=== PATIENT | female | born 1975 | race Caucasian/White ===

== ENCOUNTER 2023-04-29 14:45 | Emergency (ER) | payer OTHER, SELFPAY ==
[2023-04-29 14:54] VITALS: BP 144/110; RESP 16; TEMP 36.7; O2SAT 99; BMI 21.2
--- NOTE | 2023-04-29 15:02 | ED.GENADUL1 ---
HPI - General Adult General Chief complaint: Headache Stated complaint: HYPERTENSION/ NECK STIFFNESS Time Seen by Provider: 04/29/23 15:02 Source: patient Mode of arrival: walk-in Limitations: no limitations History of Present Illness HPI narrative: this patient's here for pain in her neck and headache and elevated blood pressure readings at home. She is under the care of a local primary care practitioner as been referred to pain management and is considering undergoing epidural blocks in her cervical area but she is low but hesitant and afraid of that. She is a recovering drug addict. She was taking gabapentin for a while but has not been on it for at least several weeks. She has no new neurological symptoms in her arms but she does have neck pain. She has not been on steroids recently. She said she took her blood pressure at home and it was quite elevated. She is on blood pressure meds and she's revealing these with the nurse at this time. She did not have any focal neurological deficits today. No diplopia or dysarthria or dysphasia. No explosive headache. No double vision. Related Data Home Medications Medication Instructions Recorded Confirmed amlodipine 10 mg tablet 10 mg PO DAILY 04/29/23 04/29/23 budesonide-formoterol HFA 160 2 puff inhalation Q12H PRN sob 04/29/23 04/29/23 mcg-4.5 mcg/actuation aerosol inhaler buspirone 10 mg tablet 10 mg PO DAILY 04/29/23 04/29/23 cholecalciferol (vitamin D3) 50 1,000 unit PO DAILY 04/29/23 04/29/23 mcg (2,000 unit) capsule duloxetine 30 mg capsule,delayed 30 mg PO DAILY 04/29/23 04/29/23 release famotidine 20 mg tablet 20 mg PO DAILY 04/29/23 04/29/23 hydroxyzine pamoate 25 mg capsule 25 mg PO Q8H PRN anxiety 04/29/23 04/29/23 levothyroxine 125 mcg tablet 125 mcg PO DAILY 04/29/23 04/29/23 losartan 50 mg-hydrochlorothiazide 1 tab PO DAILY 04/29/23 04/29/23 12.5 mg tablet mirtazapine 7.5 mg tablet 7.5 mg PO .qhs 04/29/23 04/29/23 Allergies Allergy/AdvReac Type Severity Reaction Status Date / Time No Known Drug Allergies Allergy Verified 04/29/23 14:53 [facility] Medical History (Updated 04/29/23 @ 16:48 by Kin Tran MD) Social History Smoking status: Heavy tobacco smoker Exam Narrative Exam Narrative: vital signs noted. She is awake alert oriented ?3 appears to have chronic pain syndrome may be exacerbated today. There is no change in activities or symptomatology. Constitutional she states then awake alert no evidence confusion or meningeal irritation. H ENT normal craniofacial structures, no facial swelling. Cervical spine restriction of motion in all planes is noted and is chronic. Respiratory Respiratory no respiratory distress wheezing or coughing. Review regular rate and rhythm. Blood pressure is noted. Neuro / her radial ulnar nerve function and median nerve function are normal in both extremities. There is no spasticity or clonus. There is no sensory loss in the extremities. Constitutional Vital Signs - 24 hr 04/29/23 14:54 04/29/23 15:30 04/29/23 16:25 Temperature 98.1 F Respiratory Rate 16 Blood Pressure [Left Arm] 158/118 H Blood Pressure [Right Arm] 144/110 H 143/103 H Pulse Oximetry 99 Oxygen Delivery Method Room Air Course Vital Signs Vital signs: Vital Signs Temperature 98.1 F 04/29/23 14:54 Respiratory Rate 16 04/29/23 14:54 Blood Pressure 144/110 H 04/29/23 14:54 Pulse Oximetry 99 04/29/23 14:54 Oxygen Delivery Method Room Air 04/29/23 14:54 Temperature 98.1 F 04/29/23 14:54 Respiratory Rate 16 04/29/23 14:54 Blood Pressure 158/118 H 04/29/23 16:25 Pulse Oximetry 99 04/29/23 14:54 Oxygen Delivery Method Room Air 04/29/23 14:54 Medical Decision Making MDM Narrative Medical decision making narrative: patient blood pressure responded nicely to treatment. She admits to having opioid addiction in the past and is not requesting a prescription but she would like something for discomfort here. I will give her prescription for Neurontin. I strongly encouraged her to follow up with pain management doctor so they can get more therapeutic intervention. She was given Dilaudid once. She does feel substantially relieved Discharge Plan Discharge Chief Complaint: Headache Clinical Impression: Cervical disc disorder with radiculopathy, Hypertension Patient Disposition: Home, Self-Care Time of Disposition Decision: 16:48 Prescriptions / Home Meds: No Action budesonide-formoterol 160-4.5 mcg/actuation HFA aerosol inhaler 2 puff INHALATION Q12H PRN (Reason: sob) amlodipine 10 mg tablet 10 mg PO DAILY duloxetine 30 mg capsule,delayed release(DR/EC) 30 mg PO DAILY famotidine 20 mg tablet 20 mg PO DAILY hydroxyzine pamoate 25 mg capsule 25 mg PO Q8H PRN (Reason: anxiety) levothyroxine 125 mcg tablet 125 mcg PO DAILY losartan-hydrochlorothiazide 50-12.5 mg tablet 1 tab PO DAILY mirtazapine 7.5 mg tablet 7.5 mg PO .qhs cholecalciferol (vitamin D3) 50 mcg (2,000 unit) capsule 1,000 unit PO DAILY buspirone 10 mg tablet 10 mg PO DAILY Additional Instructions: follow-up with hand painter and your primary provider for ongoing care for these chronic conditions Stand Alone Forms: Portal Instructions Referrals: TATUM ONOFRE MD [Primary Care Provider] - 1 week
[2023-04-29 15:30] VITALS: BP 143/103
[2023-04-29] MEDS: LABETALOL HCL 20 MG/4 ML SYRINGE IVP (15:35)
[2023-04-29] MEDS: KETOROLAC TROMETHAMINE 10 MG TABLET 20 MG PO (16:06)
[2023-04-29 16:25] VITALS: BP 158/118
[2023-04-29] MEDS: GABAPENTIN 300 MG CAPSULE PO (17:09)
[2023-04-29] MEDS: HYDROMORPHONE HCL 2 MG/ML VIAL 1 MG IV (17:09)
[2023-04-29 17:14] VITALS: BP 190/100; PULSE 60; RESP 18; O2SAT 98
== END 2023-04-29 17:38 | disposition home or self-care (01) ==
PROVIDERS: Emergency Provider Emergency Medicine Emergency Medical Services; PCP Nurse Practitioner Primary Care
DX: M50.10 Cervical disc disorder with radiculopathy, unspecified cervical region (principal); I10 Essential (primary) hypertension; Z79.899 Other long term (current) drug therapy; Z79.890 Hormone replacement therapy
CPT/HCPCS: 96374; 96375; 99284; J1170

== ENCOUNTER 2023-06-14 13:27 | Emergency (ER) | payer OTHER, SELFPAY ==
[2023-06-14 13:29] VITALS: BP 160/90; PULSE 58; RESP 18; TEMP 36.6; O2SAT 98; BMI 21.0
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
== END 2023-06-14 14:27 | disposition home or self-care (01) ==
PROVIDERS: Emergency Provider Emergency Medicine; PCP Nurse Practitioner Primary Care
DX: S60.221A Contusion of right hand, initial encounter (principal); W23.0XXA Caught, crushed, jammed, or pinched between moving objects, initial encounter; Z79.899 Other long term (current) drug therapy; Z79.890 Hormone replacement therapy; F17.210 Nicotine dependence, cigarettes, uncomplicated
CPT/HCPCS: 73110; 73130; 99283

== ENCOUNTER 2023-08-18 13:58 | Emergency (ER) | payer OTHER, SELFPAY ==
[2023-08-18 14:07] VITALS: BP 152/96; PULSE 82; RESP 16; TEMP 36.7; O2SAT 99; BMI 21.0
--- NOTE | 2023-08-18 14:13 | XR_ITS ---
[address] [address] Patient Name: SULY THORNE MRN: [id number] date: 1975 Sex: F Assigned Patient Location: ER Current Patient Location: ED.MAIN Accession/Order Number: [id number] Exam Date: 08/18/2023 14:35 Report Date: 08/18/2023 15:09 At the request of: PELON CASTRO Procedure: XR foot LT min 3V . EXAM: XR foot LT min 3V HISTORY: Pain after stepping on kids 20 COMPARISON: None. TECHNIQUE: 3 views FINDINGS: No osseous lesion, fracture, dislocation or subluxation. Joint spaces are normal. No visualized effusion. No visualized soft tissue edema. XR/XR foot LT min 3V IMPRESSION: Normal x-rays Electronically authenticated by: RJ FIORE Date: 08/18/2023 15:09
--- NOTE | 2023-08-18 14:24 | PC.NURSE ---
Left second toe swollen and bruised, skin pink and warm surrounding, able to move toes.
--- NOTE | 2023-08-18 15:08 | ED_ITS ---
HPI - Extremity Injury (Lower) General Chief Complaint: Extremity Injury, Lower Stated Complaint: LT SECOND TOE INJURY Time Seen by Provider: 08/18/23 14:08 Source: patient Mode of arrival: Wheelchair Limitations: physical limitation History of Present Illness HPI Narrative: stepped on a kid's toy and felt a crack 2 days ago. She has experienced pain along the 2nd toe and bruising to that area since then. No fall or other injury associated with the event. Related Data Home Medications Medication Instructions Recorded Confirmed amlodipine 10 mg tablet 10 mg PO DAILY 04/29/23 04/29/23 budesonide-formoterol HFA 160 2 puff inhalation Q12H PRN sob 04/29/23 04/29/23 mcg-4.5 mcg/actuation aerosol inhaler buspirone 10 mg tablet 10 mg PO DAILY 04/29/23 04/29/23 cholecalciferol (vitamin D3) 50 1,000 unit PO DAILY 04/29/23 04/29/23 mcg (2,000 unit) capsule duloxetine 30 mg capsule,delayed 30 mg PO DAILY 04/29/23 04/29/23 release famotidine 20 mg tablet 20 mg PO DAILY 04/29/23 04/29/23 hydroxyzine pamoate 25 mg capsule 25 mg PO Q8H PRN anxiety 04/29/23 04/29/23 levothyroxine 125 mcg tablet 125 mcg PO DAILY 04/29/23 04/29/23 losartan 50 mg-hydrochlorothiazide 1 tab PO DAILY 04/29/23 04/29/23 12.5 mg tablet mirtazapine 7.5 mg tablet 7.5 mg PO .qhs 04/29/23 04/29/23 Previous Rx's Medication Instructions Recorded nabumetone 750 mg tablet 750 mg PO BID PRN pain #14 tabs 08/18/23 Allergies Allergy/AdvReac Type Severity Reaction Status Date / Time No Known Drug Allergies Allergy Verified 08/18/23 14:10 [facility] Medical History (Updated 08/18/23 @ 15:08 by Pelon Castro) Anxiety and depression ?F41.9 - Anxiety disorder, unspecified (ICD-10) ?F32.A - Depression, unspecified (ICD-10) Bulging of cervical intervertebral disc ?M50.30 - Other cervical disc degeneration, unspecified cervical region (ICD- 10) HTN (hypertension) ?I10 - Essential (primary) hypertension (ICD-10) Osteoporosis ?M81.0 - Age-related osteoporosis without current pathological fracture (ICD- 10) Social History Smoking status: Current every day smoker Exam Narrative Exam Narrative: Nurses notes and vital signs reviewed and patient is not hypoxic. AFEBRILE General: Well-appearing and in no apparent distress. Skin: Warm, dry, no pallor noted. Cardiovascular: normal periphreal perfusion Respiratory: No accessory muscle use or respiratory distress. Musculoskeletal: LEFT FOOT - tenderness and ecchymosis noted to the left foot at the 2nd metatarsal with some associated swelling and tenderness. The remainder of the foot and left ankle with normal ROM, no calf or popliteal tenderness, no lower extremity edema. Neurological: A&O x4. No cranial nerve dysfunction observed. No truncal ataxia. Moves all extremities. Sensation intact. Psychiatric: Cooperative and interactive. Normal mood and affect. Constitutional Vital Signs, click to edit/add: Last Vital Signs Temp 98.1 F 08/18/23 14:07 Pulse 82 08/18/23 14:07 Resp 16 08/18/23 14:07 BP 152/96 H 08/18/23 14:07 Pulse Ox 99 08/18/23 14:07 O2 Del Method Room Air 08/18/23 14:07 Course Vital Signs Vital signs: Vital Signs Temperature 98.1 F 08/18/23 14:07 Pulse Rate 82 08/18/23 14:07 Respiratory Rate 16 08/18/23 14:07 Blood Pressure 152/96 H 08/18/23 14:07 Pulse Oximetry 99 08/18/23 14:07 Oxygen Delivery Method Room Air 08/18/23 14:07 Temperature 98.1 F 08/18/23 14:07 Pulse Rate 82 08/18/23 14:07 Respiratory Rate 16 08/18/23 14:07 Blood Pressure 152/96 H 08/18/23 14:07 Pulse Oximetry 99 08/18/23 14:07 Oxygen Delivery Method Room Air 08/18/23 14:07 MDM - Extremity Injury (Lower) MDM Narrative Medical decision making narrative: I did not identify any acute fracture at the left 2nd toe or 2nd metatarsal. Patient informed of results. Given oral Toradol for pain. Prescribed oral Relafen for pain. PCP follow up or ED return if she worsens Imaging Data xr foot: Radiologist's impression: Patient Name: SULY THORNE MRN: [id number] date: 1975 Sex: F Assigned Patient Location: ER Current Patient Location: ED.MAIN Accession/Order Number: [id number] Exam Date: 08/18/2023 14:35 Report Date: 08/18/2023 15:09 At the request of: PELON CASTRO Procedure: XR foot LT min 3V . EXAM: XR foot LT min 3V HISTORY: Pain after stepping on kids 20 COMPARISON: None. TECHNIQUE: 3 views FINDINGS: No osseous lesion, fracture, dislocation or subluxation. Joint spaces are normal. No visualized effusion. No visualized soft tissue edema. IMPRESSION: Normal x-rays Electronically authenticated by: RJ FIORE Date: 08/18/2023 15:09 Discharge Plan Discharge Chief Complaint: Extremity Injury, Lower Clinical Impression: Contusion of foot Patient Disposition: Home, Self-Care Time of Disposition Decision: 15:07 Prescriptions / Home Meds: New nabumetone 750 mg tablet 750 mg PO BID PRN (Reason: pain) Qty: 14 0RF No Action budesonide-formoterol 160-4.5 mcg/actuation HFA aerosol inhaler 2 puff INHALATION Q12H PRN (Reason: sob) amlodipine 10 mg tablet 10 mg PO DAILY duloxetine 30 mg capsule,delayed release(DR/EC) 30 mg PO DAILY famotidine 20 mg tablet 20 mg PO DAILY hydroxyzine pamoate 25 mg capsule 25 mg PO Q8H PRN (Reason: anxiety) levothyroxine 125 mcg tablet 125 mcg PO DAILY losartan-hydrochlorothiazide 50-12.5 mg tablet 1 tab PO DAILY mirtazapine 7.5 mg tablet 7.5 mg PO .qhs cholecalciferol (vitamin D3) 50 mcg (2,000 unit) capsule 1,000 unit PO DAILY buspirone 10 mg tablet 10 mg PO DAILY Instructions: Foot Contusion (ED) Stand Alone Forms: Portal Instructions Referrals: TATUM ONOFRE APRN [Primary Care Provider] - 1 week
[2023-08-18] MEDS: KETOROLAC TROMETHAMINE 10 MG TABLET PO (15:22)
== END 2023-08-18 15:36 | disposition home or self-care (01) ==
PROVIDERS: Emergency Provider Emergency Medicine; PCP Nurse Practitioner Primary Care
DX: S90.32XA Contusion of left foot, initial encounter (principal); F41.9 Anxiety disorder, unspecified; F32.A Depression, unspecified; I10 Essential (primary) hypertension; M50.30 Other cervical disc degeneration, unspecified cervical region; F17.210 Nicotine dependence, cigarettes, uncomplicated; M81.0 Age-related osteoporosis without current pathological fracture; W22.8XXA Striking against or struck by other objects, initial encounter; Z79.899 Other long term (current) drug therapy; Z79.890 Hormone replacement therapy
CPT/HCPCS: 73630; 99283

== ENCOUNTER 2023-09-03 16:50 | Emergency (ER) | payer OTHER, SELFPAY ==
[2023-09-03 17:08] VITALS: BP 169/123; PULSE 79; RESP 18; TEMP 37.1; O2SAT 98; BMI 22.1
[2023-09-03 17:11] VITALS: BP 146/90
--- NOTE | 2023-09-03 17:21 | ED.NECK1 ---
Documented by User: SHAYNE Toussaint 09/03/23 17:24 HPI - Neck Pain/Injury General Chief Complaint: Neck Pain/Injury Stated Complaint: Neck Pain Time Seen by Provider: 09/03/23 16:52 History of Present Illness HPI Narrative: patient is a 48-year-old female to history of chronic neck pain who presents to the emergency department for the evaluation of increasing neck pain over the last several days. She had an MRI last year showing multiple bulging disks in her cervical spine as well as a pinched nerve. She has been on gabapentin in the past but states she ran out of her medication and does not currently have a doctor. She denies any peripheral paresthesias or pain radiation to the extremities. She reports some pain radiation into the right trapezius area. Pain is worse with movement of the neck. No medications taken prior to arrival. She does have a history of narcotic addiction. Related Data Home Medications Medication Instructions Recorded Confirmed amlodipine 10 mg tablet 10 mg PO DAILY 04/29/23 04/29/23 budesonide-formoterol HFA 160 2 puff inhalation Q12H PRN sob 04/29/23 04/29/23 mcg-4.5 mcg/actuation aerosol inhaler buspirone 10 mg tablet 10 mg PO DAILY 04/29/23 04/29/23 cholecalciferol (vitamin D3) 50 1,000 unit PO DAILY 04/29/23 04/29/23 mcg (2,000 unit) capsule duloxetine 30 mg capsule,delayed 30 mg PO DAILY 04/29/23 04/29/23 release famotidine 20 mg tablet 20 mg PO DAILY 04/29/23 04/29/23 hydroxyzine pamoate 25 mg capsule 25 mg PO Q8H PRN anxiety 04/29/23 04/29/23 levothyroxine 125 mcg tablet 125 mcg PO DAILY 04/29/23 04/29/23 losartan 50 mg-hydrochlorothiazide 1 tab PO DAILY 04/29/23 04/29/23 12.5 mg tablet mirtazapine 7.5 mg tablet 7.5 mg PO .qhs 04/29/23 04/29/23 Previous Rx's Medication Instructions Recorded nabumetone 750 mg tablet 750 mg PO BID PRN pain #14 tabs 08/18/23 gabapentin 600 mg tablet 600 mg PO TID 7 days #21 tabs 09/03/23 ketorolac 10 mg tablet 10 mg PO TID PRN pain #10 tabs 09/03/23 methocarbamol 750 mg tablet 750 mg PO TID PRN pain #20 tabs 09/03/23 Allergies Allergy/AdvReac Type Severity Reaction Status Date / Time No Known Drug Allergies Allergy Verified 08/18/23 14:10 Review of Systems ROS Constitutional Denies: fever or chills Ears, nose, mouth, and throat Denies: throat pain Cardiovascular Denies: chest pain Respiratory Denies: shortness of breath or cough Gastrointestinal Denies: nausea or vomiting Musculoskeletal Reports: neck pain; Denies: back pain or extremity pain Integumentary/Breast Denies: rash Neurological Denies: headache Allergic/Immunologic Denies: hives [facility] Medical History (Updated 09/03/23 @ 17:20 by SHAYNE Toussaint) Anxiety and depression ?F41.9 - Anxiety disorder, unspecified (ICD-10) ?F32.A - Depression, unspecified (ICD-10) Bulging of cervical intervertebral disc ?M50.30 - Other cervical disc degeneration, unspecified cervical region (ICD-10) HTN (hypertension) ?I10 - Essential (primary) hypertension (ICD-10) Osteoporosis ?M81.0 - Age-related osteoporosis without current pathological fracture (ICD-10) Social History Smoking status: Current every day smoker Exam Narrative Exam Narrative: Gen.: Awake, alert, in no distress Head: Normocephalic, atraumatic ENT: Moist mucous membranes Neck: diffuse mild tenderness of the posterior cervical spine with no bony point tenderness or obvious deformity. Diffuse tenderness of the right trapezius area wiith no obvious deformity or sulcus sign Respiratory: No respiratory distress Gastrointestinal: Abdomen is soft, nondistended and nontender to palpation Extremities: Moves extremities equally, no injuries noted; normal quality reviewer strength in the bilateral hands Psych: Normal mood and affect Neuro: No focal neuro deficit Skin: Warm, dry, intact Constitutional Vital Signs, click to edit/add: Last Vital Signs Temp 98.8 F 09/03/23 17:08 Pulse 76 09/03/23 17:29 Resp 18 09/03/23 17:29 BP 148/89 H 09/03/23 17:29 Pulse Ox 98 09/03/23 17:29 O2 Del Method Room Air 09/03/23 17:29 Course Vital Signs Vital signs: Vital Signs Temperature 98.8 F 09/03/23 17:08 Pulse Rate 79 09/03/23 17:08 Respiratory Rate 18 09/03/23 17:08 Blood Pressure 169/123 H 09/03/23 17:08 Pulse Oximetry 98 09/03/23 17:08 Oxygen Delivery Method Room Air 09/03/23 17:08 Temperature 98.8 F 09/03/23 17:08 Pulse Rate 76 09/03/23 17:29 Respiratory Rate 18 09/03/23 17:29 Blood Pressure 148/89 H 09/03/23 17:29 Pulse Oximetry 98 09/03/23 17:29 Oxygen Delivery Method Room Air 09/03/23 17:29 MDM - Neck Pain/Injury MDM Narrative Medical decision making narrative: no indication for imaging as the patient has had no new injuries or traumas. OARRS is consistent with the patient's history. She is placed back on gabapentin, she was counseled that she can only receive a short course of this medication from the emergency Department and will need to follow-up with her regular primary care provider or lead based paint technician. She is given muscle relaxants and NSAIDs for home as well. Return to the Emergency Room if symptoms change or worsen. Medical Records Attestation: I reviewed the patient's medical records. Discharge Plan Discharge Chief Complaint: Neck Pain/Injury Clinical Impression: Acute neck pain, Cervical disc disorder with radiculopathy Patient Disposition: Home, Self-Care Time of Disposition Decision: 17:19 Condition: Good Prescriptions / Home Meds: New gabapentin 600 mg tablet 600 mg PO TID 7 Days Qty: 21 0RF ketorolac 10 mg tablet 10 mg PO TID PRN (Reason: pain) Qty: 10 0RF methocarbamol 750 mg tablet 750 mg PO TID PRN (Reason: pain) Qty: 20 0RF No Action nabumetone 750 mg tablet 750 mg PO BID PRN (Reason: pain) Qty: 14 0RF budesonide-formoterol 160-4.5 mcg/actuation HFA aerosol inhaler 2 puff INHALATION Q12H PRN (Reason: sob) amlodipine 10 mg tablet 10 mg PO DAILY duloxetine 30 mg capsule,delayed release(DR/EC) 30 mg PO DAILY famotidine 20 mg tablet 20 mg PO DAILY hydroxyzine pamoate 25 mg capsule 25 mg PO Q8H PRN (Reason: anxiety) levothyroxine 125 mcg tablet 125 mcg PO DAILY losartan-hydrochlorothiazide 50-12.5 mg tablet 1 tab PO DAILY mirtazapine 7.5 mg tablet 7.5 mg PO .qhs cholecalciferol (vitamin D3) 50 mcg (2,000 unit) capsule 1,000 unit PO DAILY buspirone 10 mg tablet 10 mg PO DAILY Instructions: Neck Pain (ED) Stand Alone Forms: Portal Instructions Referrals: Physician,Non-Staff, MD [Primary Care Provider] - 1 week Discharge Date/Time: 09/03/23 17:30 Documented by User: Rashad Blair MD 09/03/23 19:39 HPI - Neck Pain/Injury General Chief Complaint: Neck Pain/Injury Stated Complaint: Neck Pain Time Seen by Provider: 09/03/23 16:52 Related Data Home Medications Medication Instructions Recorded Confirmed amlodipine 10 mg tablet 10 mg PO DAILY 04/29/23 04/29/23 budesonide-formoterol HFA 160 2 puff inhalation Q12H PRN sob 04/29/23 04/29/23 mcg-4.5 mcg/actuation aerosol inhaler buspirone 10 mg tablet 10 mg PO DAILY 04/29/23 04/29/23 cholecalciferol (vitamin D3) 50 1,000 unit PO DAILY 04/29/23 04/29/23 mcg (2,000 unit) capsule duloxetine 30 mg capsule,delayed 30 mg PO DAILY 04/29/23 04/29/23 release famotidine 20 mg tablet 20 mg PO DAILY 04/29/23 04/29/23 hydroxyzine pamoate 25 mg capsule 25 mg PO Q8H PRN anxiety 04/29/23 04/29/23 levothyroxine 125 mcg tablet 125 mcg PO DAILY 04/29/23 04/29/23 losartan 50 mg-hydrochlorothiazide 1 tab PO DAILY 04/29/23 04/29/23 12.5 mg tablet mirtazapine 7.5 mg tablet 7.5 mg PO .qhs 04/29/23 04/29/23 Previous Rx's Medication Instructions Recorded nabumetone 750 mg tablet 750 mg PO BID PRN pain #14 tabs 08/18/23 gabapentin 600 mg tablet 600 mg PO TID 7 days #21 tabs 09/03/23 ketorolac 10 mg tablet 10 mg PO TID PRN pain #10 tabs 09/03/23 methocarbamol 750 mg tablet 750 mg PO TID PRN pain #20 tabs 09/03/23 Allergies Allergy/AdvReac Type Severity Reaction Status Date / Time No Known Drug Allergies Allergy Verified 08/18/23 14:10 [facility] Medical History (Updated 09/03/23 @ 17:20 by SHAYNE Toussaint) Anxiety and depression ?F41.9 - Anxiety disorder, unspecified (ICD-10) ?F32.A - Depression, unspecified (ICD-10) Bulging of cervical intervertebral disc ?M50.30 - Other cervical disc degeneration, unspecified cervical region (ICD-10) HTN (hypertension) ?I10 - Essential (primary) hypertension (ICD-10) Osteoporosis ?M81.0 - Age-related osteoporosis without current pathological fracture (ICD-10) Social History Smoking status: Current every day smoker Exam Constitutional Vital Signs, click to edit/add: Last Vital Signs Temp 98.8 F 09/03/23 17:08 Pulse 76 09/03/23 17:29 Resp 18 09/03/23 17:29 BP 148/89 H 09/03/23 17:29 Pulse Ox 98 09/03/23 17:29 O2 Del Method Room Air 09/03/23 17:29 Course Vital Signs Vital signs: Vital Signs Temperature 98.8 F 09/03/23 17:08 Pulse Rate 79 09/03/23 17:08 Respiratory Rate 18 09/03/23 17:08 Blood Pressure 169/123 H 09/03/23 17:08 Pulse Oximetry 98 09/03/23 17:08 Oxygen Delivery Method Room Air 09/03/23 17:08 Temperature 98.8 F 09/03/23 17:08 Pulse Rate 76 09/03/23 17:29 Respiratory Rate 18 09/03/23 17:29 Blood Pressure 148/89 H 09/03/23 17:29 Pulse Oximetry 98 09/03/23 17:29 Oxygen Delivery Method Room Air 09/03/23 17:29 MDM - Neck Pain/Injury MDM Narrative Medical decision making narrative: no indication for imaging as the patient has had no new injuries or traumas. OARRS is consistent with the patient's history. She is placed back on gabapentin, she was counseled that she can only receive a short course of this medication from the emergency Department and will need to follow-up with her regular primary care provider or lead based paint technician. She is given muscle relaxants and NSAIDs for home as well. Return to the Emergency Room if symptoms change or worsen. I, Dr Blair, have reviewed the above progress note and course of action in the ER; agree with the above. I have personally seen and evaluated this patient, gone over history and physical, and discussed disposition and treatment plan with the patient. Discharge Plan Discharge Chief Complaint: Neck Pain/Injury Clinical Impression: Acute neck pain, Cervical disc disorder with radiculopathy Patient Disposition: Home, Self-Care Time of Disposition Decision: 17:19 Condition: Good Prescriptions / Home Meds: New gabapentin 600 mg tablet 600 mg PO TID 7 Days Qty: 21 0RF ketorolac 10 mg tablet 10 mg PO TID PRN (Reason: pain) Qty: 10 0RF methocarbamol 750 mg tablet 750 mg PO TID PRN (Reason: pain) Qty: 20 0RF No Action nabumetone 750 mg tablet 750 mg PO BID PRN (Reason: pain) Qty: 14 0RF budesonide-formoterol 160-4.5 mcg/actuation HFA aerosol inhaler 2 puff INHALATION Q12H PRN (Reason: sob) amlodipine 10 mg tablet 10 mg PO DAILY duloxetine 30 mg capsule,delayed release(DR/EC) 30 mg PO DAILY famotidine 20 mg tablet 20 mg PO DAILY hydroxyzine pamoate 25 mg capsule 25 mg PO Q8H PRN (Reason: anxiety) levothyroxine 125 mcg tablet 125 mcg PO DAILY losartan-hydrochlorothiazide 50-12.5 mg tablet 1 tab PO DAILY mirtazapine 7.5 mg tablet 7.5 mg PO .qhs cholecalciferol (vitamin D3) 50 mcg (2,000 unit) capsule 1,000 unit PO DAILY buspirone 10 mg tablet 10 mg PO DAILY Instructions: Neck Pain (ED) Stand Alone Forms: Portal Instructions Referrals: Physician,Non-Staff, MD [Primary Care Provider] - 1 week Discharge Date/Time: 09/03/23 17:30
[2023-09-03] MEDS: ORPHENADRINE 60 MG/ 2 ML VIAL IM (17:24)
[2023-09-03] MEDS: KETOROLAC TROMETHAMINE 60 MG/2 ML VIAL IM (17:24)
[2023-09-03 17:29] VITALS: BP 148/89; PULSE 76; RESP 18; O2SAT 98
== END 2023-09-03 17:30 | disposition home or self-care (01) ==
PROVIDERS: Emergency Provider Emergency Medicine
DX: M50.10 Cervical disc disorder with radiculopathy, unspecified cervical region (principal); Z79.899 Other long term (current) drug therapy; Z79.890 Hormone replacement therapy; F41.9 Anxiety disorder, unspecified; F32.A Depression, unspecified; I10 Essential (primary) hypertension; M81.0 Age-related osteoporosis without current pathological fracture; F17.210 Nicotine dependence, cigarettes, uncomplicated
CPT/HCPCS: 96372; 99284

== ENCOUNTER 2023-10-14 22:07 | Emergency (ER) | payer OTHER, SELFPAY ==
[2023-10-14 22:11] VITALS: BP 140/100; PULSE 84; RESP 16; TEMP 37.3; O2SAT 95
--- NOTE | 2023-10-14 22:19 | ED_ITS ---
HPI - Back Pain/Injury General Chief Complaint: Back Pain/Injury Stated Complaint: Flank Pain, Hx Kidney Stones Time Seen by Provider: 10/14/23 22:12 Source: patient Mode of arrival: Wheelchair Limitations: no limitations History of Present Illness HPI Narrative: states past history of kidney stones. Daily smoker. Presents complaining of pain left back since last Sun. Points to left SI joint. No urinary symptoms. Not short of breath. No hematuria or injury MD elicited complaint: Reports back pain Onset (ago): day(s) Related Data Home Medications Medication Instructions Recorded Confirmed amlodipine 10 mg tablet 10 mg PO DAILY 04/29/23 04/29/23 budesonide-formoterol HFA 160 2 puff inhalation Q12H PRN sob 04/29/23 04/29/23 mcg-4.5 mcg/actuation aerosol inhaler buspirone 10 mg tablet 10 mg PO DAILY 04/29/23 04/29/23 cholecalciferol (vitamin D3) 50 1,000 unit PO DAILY 04/29/23 04/29/23 mcg (2,000 unit) capsule duloxetine 30 mg capsule,delayed 30 mg PO DAILY 04/29/23 04/29/23 release famotidine 20 mg tablet 20 mg PO DAILY 04/29/23 04/29/23 hydroxyzine pamoate 25 mg capsule 25 mg PO Q8H PRN anxiety 04/29/23 04/29/23 levothyroxine 125 mcg tablet 125 mcg PO DAILY 04/29/23 04/29/23 losartan 50 mg-hydrochlorothiazide 1 tab PO DAILY 04/29/23 04/29/23 12.5 mg tablet mirtazapine 7.5 mg tablet 7.5 mg PO .qhs 04/29/23 04/29/23 Previous Rx's Medication Instructions Recorded nabumetone 750 mg tablet 750 mg PO BID PRN pain #14 tabs 08/18/23 gabapentin 600 mg tablet 600 mg PO TID 7 days #21 tabs 09/03/23 ketorolac 10 mg tablet 10 mg PO TID PRN pain #10 tabs 09/03/23 methocarbamol 750 mg tablet 750 mg PO TID PRN pain #20 tabs 09/03/23 Allergies Allergy/AdvReac Type Severity Reaction Status Date / Time No Known Drug Allergies Allergy Verified 10/14/23 22:35 Review of Systems ROS Status of ROS 10 or more systems reviewed and unremarkable except as noted in history and below [facility] Medical History (Updated 10/15/23 @ 01:57 by Kike Carrera MD) Anxiety and depression ?F41.9 - Anxiety disorder, unspecified (ICD-10) ?F32.A - Depression, unspecified (ICD-10) Bulging of cervical intervertebral disc ?M50.30 - Other cervical disc degeneration, unspecified cervical region (ICD- 10) HTN (hypertension) ?I10 - Essential (primary) hypertension (ICD-10) Osteoporosis ?M81.0 - Age-related osteoporosis without current pathological fracture (ICD- 10) Social History Smoking status: Current every day smoker Exam Constitutional Vital Signs, click to edit/add: Last Vital Signs Temp 99.1 F 10/14/23 22:11 Pulse 87 10/15/23 01:54 Resp 17 10/15/23 01:54 BP 140/98 H 10/15/23 01:54 Pulse Ox 98 10/15/23 01:54 O2 Del Method Room Air 10/14/23 22:11 Common normals: oriented x3 and alert General appearance: in distress (mild distress) HENMT Common normals: normocephalic and head/scalp atraumatic Eye Common normals: EOMs intact bilaterally and conjunctivae normal Chest Common normals: inspection of chest normal and palpation of chest normal Respiratory Common normals: normal respiratory effort, no retractions, no use of accessory muscles and clear to auscultation bilaterally Cardio Common normals: regular rate, regular rhythm, S1 normal heart sound and S2 normal heart sound GI Other: left flank , CVA and left SI tenderness Back & Pelvis General back: CVA tenderness (left) Extremity Common normals: normal to inspection and full ROM Neuro Common normals: oriented x3, CN's II-XII intact bilaterally, moves all extremities and no focal motor deficits Psych Appearance: grossly normal Course Vital Signs Vital signs: Vital Signs Temperature 99.1 F 10/14/23 22:11 Pulse Rate 84 10/14/23 22:11 Respiratory Rate 16 10/14/23 22:11 Blood Pressure 140/100 H 10/14/23 22:11 Pulse Oximetry 95 10/14/23 22:11 Oxygen Delivery Method Room Air 10/14/23 22:11 Temperature 99.1 F 10/14/23 22:11 Pulse Rate 87 10/15/23 01:54 Respiratory Rate 17 10/15/23 01:54 Blood Pressure 140/98 H 10/15/23 01:54 Pulse Oximetry 98 10/15/23 01:54 Oxygen Delivery Method Room Air 10/14/23 22:11 MDM - Back Pain/Injury MDM Narrative Medical decision making narrative: patient presents complaining of a possible left sided kidney stone. Exam with diffuse tenderness of her left back including left CVA. left flank and left SI joint. CT neg for renal stone that could explain her pain. UA clear. WBC normal. Patient did not improve with solumedrol, orphenadrine or Toradol. She felt these made the pain worse. Was given one time dose of morphine 4mg IV and this helped the pain. She was advised she needed to follow up with a family doctor to continue her workup and to treat her pain. Lab Data Labs: Lab Results 10/14/23 Range/Units 22:30 WBC 9.2 (4.0-11.0) 10^3/uL RBC 4.25 (4.20-5.40) 10^6/uL Hgb 13.6 (12.0-16.0) g/dL Hct 40.6 (36.0-48.0) % MCV 95.5 (81.0-99.0) fL MCH 32.0 (26.7-34.0) pg MCHC 33.5 (29.9-35.2) g/dL RDW 12.1 (11.0-15.0) % Plt Count 193 (150-450) 10^3/uL MPV 11.1 (9.5-13.5) fL Neut % (Auto) 55.9 (43.0-75.0) % Lymph % (Auto) 37.0 (20.5-60.0) % Marshall % (Auto) 5.9 (1.7-12.0) % Eos % (Auto) 0.8 L (0.9-7.0) % Baso % (Auto) 0.2 (0.2-2.0) % Neut # (Auto) 5.1 (1.4-6.5) 10^3/uL Lymph # (Auto) 3.4 (1.2-3.8) 10^3/uL Marshall # (Auto) 0.5 (0.3-0.8) 10^3/uL Eos # (Auto) 0.1 (0.0-0.7) 10^3/uL Baso # (Auto) 0.0 (0.0-0.1) 10^3/uL Abs Immat Gran (auto) 0.02 (0.00-0.03) 10^3/uL Imm/Tot Granulo (auto) 0.2 (0.0-0.5) % Sodium 141 (136-145) mmol/L Potassium 3.4 L (3.5-5.1) mmol/L Chloride 104 (98-107) mmol/L Carbon Dioxide 27.6 (21.0-32.0) mmol/L Anion Gap 12.8 BUN 5.0 L (7.0-18.0) mg/dL Creatinine 0.78 (0.55-1.02) mg/dL Est GFR ( Amer) >60 (>=60) Est GFR (Non-Af Amer) >60 (>=60) BUN/Creatinine Ratio 6.4 Glucose 98 (74-106) mg/dL Calcium 8.6 (8.5-10.1) mg/dL Urine Color Lt. yellow (YELLOW) Urine Clarity Clear (CLEAR) Urine pH 6.0 (5.0-9.0) Ur Specific [place] 1.020 (1.005-1.025) Urine Protein Negative (NEG/TRACE) mg/dL Urine Glucose (UA) Negative (NEGATIVE) mg/dL Urine Ketones Negative (NEGATIVE) mg/dL Urine Occult Blood Negative (NEGATIVE) Urine Nitrite Negative (NEGATIVE) Urine Bilirubin Negative (NEGATIVE) Urine Urobilinogen 0.2 (0.2-1.0) EU/dL Ur Leukocyte Esterase Negative (NEGATIVE) Imaging Data CT scan - abdomen: Radiologist's impression: Ordering Physician: Kike Carrera Date of Service: 10/14/23 Procedure(s): CT abdomen pelvis wo con Accession Number(s): [id number] cc: Physician,Non-Staff M.DJhony~ [facility] [place] [id number] Patient Name: SULY THORNE MRN: [id number] date: 1975 Sex: F Assigned Patient Location: ER Current Patient Location: ER Accession/Order Number: [id number] Exam Date: 10/14/2023 22:51 Report Date: 10/14/2023 23:18 At the request of: KIKE CARRERA Procedure: CT abdomen pelvis wo con EXAM: CT abdomen pelvis wo con REASON FOR EXAM: Female, 48 years, left flank pain. TECHNIQUE: Computed tomography of the abdomen and pelvis is performed in the axial projection from the lung bases to the pubic symphysis. Sagittal and coronal reconstructed images are performed. Dose reduction techniques were achieved by using automated exposure control and/or adjustment of mA and/or KVP according to patient size and/or use of iterative reconstruction technique. Study was performed without IV contrast. Study was performed without oral contrast. COMPARISON: None. FINDINGS: Lung bases: The lung bases are clear. There is no pleural effusion. The visualized portions of the heart are unremarkable. Evaluation of the solid abdominal organs is limited in the absence of intravenous contrast. Liver: The right lobe of the liver is elongation, suggesting a Elayne's lobe. Gallbladder: The gallbladder has been removed. The common duct is somewhat prominent, measuring up to 1.1 cm in diameter, likely reflecting reservoir effect. Spleen: The spleen is normal. Pancreas: The pancreas is normal. Adrenal glands: The adrenal glands are normal bilaterally. Right kidney: The kidney is normal in size. There is no renal calculus or hydronephrosis. Left kidney: The kidney is normal in size. There is a punctate nonobstructing calculus in the upper pole of the left kidney. No hydronephrosis. Stomach: The stomach is distended with debris. This may represent a recently ingested meal or gastroparesis. Small bowel: The small bowel is normal. Large bowel: The colon is normal. Appendix: The appendix is not visualized. No right lower quadrant inflammatory changes are seen to suggest acute appendicitis. Aorta: There are mild atherosclerotic calcifications of the abdominal aorta. IVC: The IVC is normal. Retroperitoneum: Normal retroperitoneum. Bladder: The bladder is nearly empty at the time of scanning. Pelvic organs: The uterus is absent, consistent with hysterectomy. Abdominal wall: Normal abdominal wall. Osseous structures: Degenerative changes are seen in the visualized spine. CT/CT abdomen pelvis wo con IMPRESSION: Punctate nonobstructing left upper pole renal calculus. No hydronephrosis or ureteral calculus. The stomach is distended with debris. This may represent a recently ingested meal or gastroparesis. Postoperative changes of cholecystectomy. Prominence to the common duct likely represents reservoir effect. Additional nonacute findings, as described above. Electronically authenticated by: CARRINGTON VILLALOBOS Date: 10/14/2023 23:18 Dictated By: Carrington Villalobos M.D. Signed By: Discharge Plan Discharge Chief Complaint: Back Pain/Injury Clinical Impression: Myofascial low back pain Patient Disposition: Home, Self-Care Prescriptions / Home Meds: No Action nabumetone 750 mg tablet 750 mg PO BID PRN (Reason: pain) Qty: 14 0RF gabapentin 600 mg tablet 600 mg PO TID 7 Days Qty: 21 0RF ketorolac 10 mg tablet 10 mg PO TID PRN (Reason: pain) Qty: 10 0RF methocarbamol 750 mg tablet 750 mg PO TID PRN (Reason: pain) Qty: 20 0RF budesonide-formoterol 160-4.5 mcg/actuation HFA aerosol inhaler 2 puff INHALATION Q12H PRN (Reason: sob) amlodipine 10 mg tablet 10 mg PO DAILY duloxetine 30 mg capsule,delayed release(DR/EC) 30 mg PO DAILY famotidine 20 mg tablet 20 mg PO DAILY hydroxyzine pamoate 25 mg capsule 25 mg PO Q8H PRN (Reason: anxiety) levothyroxine 125 mcg tablet 125 mcg PO DAILY losartan-hydrochlorothiazide 50-12.5 mg tablet 1 tab PO DAILY mirtazapine 7.5 mg tablet 7.5 mg PO .qhs cholecalciferol (vitamin D3) 50 mcg (2,000 unit) capsule 1,000 unit PO DAILY buspirone 10 mg tablet 10 mg PO DAILY Instructions: Back Pain (ED) Stand Alone Forms: Portal Instructions Referrals: Physician,Non-Staff, MD [Primary Care Provider] - 1 week
--- NOTE | 2023-10-14 22:33 | PC.NURSE ---
Pt reports left sided flank pain that radiates down left buttocks. Hx kidney stones. Pt also reports pain and difficulty with urination. Urine appears dark yellow and clear upon assessment.
[2023-10-14 22:38] LABS: Basophils Percent Auto 0.2 % (0.2-2.0); Bilirubin Urine NEGATIVE (NEGATIVE); Blood Urine NEGATIVE (NEGATIVE); Clarity Urine CLEAR (CLEAR); Color Urine LT. YELLOW (YELLOW); Eosinophils Absolute Auto 0.1 10^3/uL (0.0-0.7); Eosinophils Percent Auto 0.8 % (0.9-7.0); Glucose Urine UA NEGATIVE (NEGATIVE); Hematocrit 40.6 % (36.0-48.0); Hemoglobin 13.6 g/dL (12.0-16.0); Immature Granulocytes Abs Auto 0.02 10^3/uL (0.00-0.03); Immature Granulocytes Pct Auto 0.2 % (0.0-0.5); Ketones Urine NEGATIVE (NEGATIVE); Leukocyte Esterase Urine NEGATIVE (NEGATIVE); Lymphocytes Absolute Auto 3.4 10^3/uL (1.2-3.8); Mean Corpuscular HGB Conc 33.5 g/dL (29.9-35.2); Mean Corpuscular Volume 95.5 fL (81.0-99.0); Mean Platelet Volume 11.1 fL (9.5-13.5); Monocytes Absolute Auto 0.5 10^3/uL (0.3-0.8); Monocytes Percent Auto 5.9 % (1.7-12.0); Neutrophils Absolute Auto 5.1 10^3/uL (1.4-6.5); Neutrophils Percent Auto 55.9 % (43.0-75.0); Nitrite Urine NEGATIVE (NEGATIVE); Platelet Count 193 10^3/uL (150-450); Protein Urine NEGATIVE (NEG/TRACE); Red Blood Count 4.25 10^6/uL (4.20-5.40); Red Cell Distribution Width 12.1 % (11.0-15.0); Urobilinogen Urine 0.2 EU/dL (0.2-1.0); White Blood Count 9.2 10^3/uL (4.0-11.0)
[2023-10-14 22:39] LABS: Urine Microscopic Indicated NO
[2023-10-14 22:46] LABS: Anion Gap 12.8; BUN Creatinine Ratio 6.4; Calcium 8.6 mg/dL (8.5-10.1); Carbon Dioxide 27.6 mmol/L (21.0-32.0); Chloride 104 mmol/L (98-107); Estimated GFR (African America >60 (>=60); Estimated GFR (Non-African Ame >60 (>=60); Glucose 98 mg/dL (74-106); Potassium 3.4 mmol/L (3.5-5.1); Sodium 141 mmol/L (136-145)
[2023-10-14] MEDS: 0.9 % SODIUM CHLORIDE 1,000 ML 999 ML IV (23:07)
[2023-10-14] MEDS: KETOROLAC TROMETHAMINE 30 MG/ML VIAL IM (23:07)
[2023-10-14] MEDS: ORPHENADRINE 60 MG/ 2 ML VIAL IV (23:08)
[2023-10-14] MEDS: METHYLPREDNISOLONE SOD SUCC PF 125 MG/2 ML VIAL IVP (23:43)
[2023-10-14] MEDS: MAGNESIUM SULFATE IN WATER 2 GM/50 ML PREMIX IV (23:43)
[2023-10-15 00:02] VITALS: BP 140/98; PULSE 80; RESP 18; O2SAT 96
[2023-10-15] MEDS: MORPHINE SULFATE 4 MG/ML VIAL IV (01:31)
[2023-10-15 01:54] VITALS: BP 140/98; PULSE 87; RESP 17; O2SAT 98
[2023-10-15 02:02] VITALS: BP 152/94; PULSE 87; RESP 15; O2SAT 97
== END 2023-10-15 02:03 | disposition home or self-care (01) ==
PROVIDERS: Emergency Provider Internal Medicine
DX: M54.50 Low back pain, unspecified (principal); F17.210 Nicotine dependence, cigarettes, uncomplicated; Z87.442 Personal history of urinary calculi; Z90.49 Acquired absence of other specified parts of digestive tract; Z79.899 Other long term (current) drug therapy; F41.9 Anxiety disorder, unspecified; F32.A Depression, unspecified; I10 Essential (primary) hypertension; M81.0 Age-related osteoporosis without current pathological fracture; N20.0 Calculus of kidney
CPT/HCPCS: 36415; 74176; 80048; 81003; 85025; 96365; 96372; 96375; 99284; J2930

== ENCOUNTER 2023-12-09 13:20 | Emergency (ER) | payer OTHER, SELFPAY ==
[2023-12-09 13:24] VITALS: BP 164/100; PULSE 74; RESP 16; TEMP 37.2; O2SAT 100; BMI 22.1
--- NOTE | 2023-12-09 13:35 | ED.NECK1 ---
HPI - Neck Pain/Injury General Chief Complaint: Extremity Injury, Upper Stated Complaint: NECK/ARM PAIN Time Seen by Provider: 12/09/23 13:26 Source: patient Mode of arrival: walk-in History of Present Illness HPI Narrative: 48-year-old female presents for neck pain. She's had this for years. She states she had an MRI that showed bulging disks. She got kicked out of pain management because she smoked marijuana. Three. The pain goes into her left arm which is typical for her. She doesn't have a PCP either. Related Data Previous Rx's Medication Instructions Recorded gabapentin 600 mg tablet 600 mg PO TID 7 days #21 tabs 09/03/23 etodolac 400 mg tablet 400 mg PO Q8H PRN pain #20 tabs 12/09/23 methocarbamol 500 mg tablet 500 mg PO Q6H PRN pain #20 tabs 12/09/23 Allergies Allergy/AdvReac Type Severity Reaction Status Date / Time No Known Drug Allergies Allergy Verified 10/14/23 22:35 Review of Systems ROS Narrative A ten point review of systems is negative except as noted above. [facility] Medical History (Updated 12/09/23 @ 13:33 by Stevan Casillas MD) Anxiety and depression ?F41.9 - Anxiety disorder, unspecified (ICD-10) ?F32.A - Depression, unspecified (ICD-10) HTN (hypertension) ?I10 - Essential (primary) hypertension (ICD-10) Bulging of cervical intervertebral disc ?M50.30 - Other cervical disc degeneration, unspecified cervical region (ICD-10) Osteoporosis ?M81.0 - Age-related osteoporosis without current pathological fracture (ICD-10) Social History Smoking status: Current every day smoker Exam Narrative Exam Narrative: Nurses note and vital signs reviewed and patient is not hypoxic. General: The patient appears well and in no apparent distress. Patient is resting comfortably on cart. Skin: Warm, dry, no pallor noted. There is no rash noted. Head: Normocephalic, atraumatic; no mass or swelling in her neck which has good range of motion Eye: Normal conjunctiva, no drainage Ears, Nose, Mouth, and Throat: oral mucosa is moist. Nares patent. Cardiovascular: Regular Rate and Rhythm Respiratory: Patient is in no distress, no accessory muscle use, lungs are clear to auscultation, no wheezing, rales or rhonchi Back: non-tender GI: Normal bowel sounds, no tenderness to palpation, no masses appreciated. No rebound, guarding, or rigidity noted. Musculoskeletal: The patient has no evidence of calf tenderness, no pitting edema, symmetrical pulses noted bilaterally Neurological: A&O, normal speech; upper and lower extremity strength intact Psychiatric: Cooperative Constitutional Vital Signs, click to edit/add: Last Vital Signs Temp 99.0 F 12/09/23 13:24 Pulse 74 12/09/23 13:24 Resp 16 12/09/23 13:24 BP 164/100 H 12/09/23 13:24 Pulse Ox 100 12/09/23 13:24 Course Vital Signs Vital signs: Vital Signs Temperature 99.0 F 12/09/23 13:24 Pulse Rate 74 12/09/23 13:24 Respiratory Rate 16 12/09/23 13:24 Blood Pressure 164/100 H 12/09/23 13:24 Pulse Oximetry 100 12/09/23 13:24 Temperature 99.0 F 12/09/23 13:24 Pulse Rate 74 12/09/23 13:24 Respiratory Rate 16 12/09/23 13:24 Blood Pressure 164/100 H 12/09/23 13:24 Pulse Oximetry 100 12/09/23 13:24 MDM - Neck Pain/Injury MDM Narrative Medical decision making narrative: she has chronic pain. She was given IM Toradol and Norflex and prescribed etodolac and Robaxin. She was given a list of PCPs with whom she can follow-up. Treatment diagnosis and follow-up were discussed with the patient. Differential Diagnosis Differential diagnosis: Likely disc disorder of cervical region, cervical radiculopathy, torticollis, cervical spondylosis and strain of neck muscle Discharge Plan Discharge Chief Complaint: Extremity Injury, Upper Clinical Impression: Chronic neck pain Patient Disposition: Home, Self-Care Time of Disposition Decision: 13:33 Condition: Good Mode of Transportation: Private Vehicle Prescriptions / Home Meds: New etodolac 400 mg tablet 400 mg PO Q8H PRN (Reason: pain) Qty: 20 0RF methocarbamol 500 mg tablet 500 mg PO Q6H PRN (Reason: pain) Qty: 20 0RF No Action gabapentin 600 mg tablet 600 mg PO TID 7 Days Qty: 21 0RF Instructions: Chronic Pain (ED), Chronic Neck Pain (DC) Additional Instructions: Follow-up with PCP, list provided Stand Alone Forms: Portal Instructions Referrals: Physician,Non-Staff, MD [Primary Care Provider] - 1 week
--- NOTE | 2023-12-09 13:36 | PC.NURSE ---
no swelling, redness or bruising observed and pt demonstrates good ROM during assessment
--- OUTSIDE RECORDS SUMMARY | 2023-12-09 13:37 | XMS_ITS | CCD ---
Author Name Unknown Address [address] [place] [address] Organization [facility] Care Team Providers [employer] Operations Specialist Name Role Phone Woo FALCON Attending Unavailable SHAMMO, TATUM Referring Unavailable SHAMMO, TATUM Referring Unavailable NILWoo Newman Attending Unavailable LAKSHMIPATHY ., NARENDRANATH Admitting Birdie vailable LAKSHMIPATHY ., NARENDRANATH Attending Birdie vailable SHAMMO, TATUM Primary Care Unavailable TAMLYN ., ABDULKADIR Admitting Unavailable TAMLYN ., ABDULKADIR Attending Unavailable SHAMMO, TATUM Primary Care Unavailable TAMLYN ., ABDULKADIR Consulting Unavailable KOMA, ROSALINDA Consulting Unavailable SHAMMO, TATUM Primary Care Unavailable PAY ., DR RUTH Admitting Unavailable PAY ., DR RUTH Attending Unavailable PAY ., DR RUTH Consulting Unavailable RASTEGAR, ANGY Consulting Unavailable SHAMMO, TATUM Primary Care Unavailable REINECK, DR PERI Vazquez Admitting Unavailabl e REINECK, DR PERI Vazquez Attending Unavailabl e REINECK, DR PERI Vzaquez Consulting Unavailabl e WILFREDO, MAN Consulting Unavailable SHAMMO, TATUM Primary Care Unavailable SAI, VAUGHN Admitting Unavailable SAI, VAUGHN Attending Unavailable SAI, VAUGHN Consulting Unavailable SHAMMO, TATMU Admitting Unavailable SHAMMO, TATUM Attending Unavailable SHAMMO, TATUM Primary Care Unavailable ZIEBALFONSO, DR FRANCES Bryan Consulting Unavailable SHAMMO, TATUM Consulting Unavailable LAKSHMIPATHY ., NARENDRANATH Admitting Birdie vailable LAKSHMIPATHY ., NARENDRANATH Attending Birdie vailable SHAMMO, TATUM Primary Care Unavailable SHAMMO, TATUM Admitting Unavailable SHAMMO, TATUM Attending Unavailable SHAMMO, TATUM Primary Care Unavailable SHAMMO, TATUM Consulting Unavailable SHAMMO, TATUM Admitting Unavailable SHAMMO, TATUM Attending Unavailable SHAMMO, TATUM Primary Care Unavailable SHAMMO, TATUM Consulting Unavailable SHAMMO, TATUM Admitting Unavailable SHAMMO, TATUM Attending Unavailable SHAMMO, TATUM Primary Care Unavailable ZIEBER, DR FRANCES Bryan Consulting Unavailable SHAMMO, TATUM Consulting Unavailable SHAMMO, TATUM Admitting Unavailable SHAMMO, TATUM Attending Unavailable SHAMMO, TATUM Primary Care Unavailable SHAMMO, TATUM Consulting Unavailable SHAMMO, TATUM Admitting Unavailable SHAMMO, TATUM Attending Unavailable SHAMMO, TATUM Primary Care Unavailable SHAMMO, TATUM Consulting Unavailable SHAMMO, TATUM Admitting Unavailable SHAMMO, TATUM Attending Unavailable SHAMMO, TATUM Primary Care Unavailable ZIEBER, DR FRANCES Bryan Consulting Unavailable SHAMMO, TATUM Consulting Unavailable ALIA, CAROL ANN Admitting Unavailable ALIA, CAROL ANN Attending Unavailable SHAMMO, TATUM Primary Care Unavailable ALIA, CAROL ANN Consulting Unavailable SHAMMO, TATUM Admitting Unavailable SHAMMO, TATUM Attending Unavailable SHAMMO, TATUM Primary Care Unavailable BEAU, DR RJ Foster Consulting Unavailable SHAMMO, TATUM Consulting Unavailable ANA ., DARRIN Consulting Unavailable ANA ., DARRIN Attending Unavailable ANA ., DARRIN Admitting Unavailable [facility] Primary Care Unavailable KOBE HICKEY Consulting Unavailable MARKER ., DR MAX Attending Unavailable MARKER ., DR MAX Admitting Unavailable MARKER ., DR MAX Consulting Unavailable [facility] Primary Care Unavailable LEON, JIMMY Consulting Unavailable SHAMMO, TATUM Primary Care Unavailable SAI, VAUGHN Admitting Unavailable SAI, VAUGHN Attending Unavailable SAI, VAUGHN Consulting Unavailable WOO PAIGE Consulting Unavailable SHAMMO, TATUM Consulting Unavailable [facility] Primary Care Unavailable SAI, VAUGHN Admitting Unavailable SAI, VAUGHN Attending Unavailable BEAU, DR RJ Foster Consulting Unavailable HAY ., DR BIRD Consulting Unavailable SAI, VAUGHN Consulting Unavailable ALIA, CAROL ANN Admitting Unavailable ALIA, CAROL ANN Attending Unavailable [facility] Primary Care Unavailable SHAMMO, TATUM Admitting Unavailable SHAMMO, TATUM Attending Unavailable SHAMMO, TATUM Primary Care Unavailable SHAMMO, TATUM Consulting Unavailable [facility] Primary Care Unavailable LUIS EDUARDO, DR LAYA Bryan Admitting Unavailable LUIS EDUARDO, DR LAYA Bryan Attending Unavailable LUIS EDUARDO, DR LAYA Bryan Consulting Unavailable LEON, JIMMY Consulting Unavailable Allergies Allergy Classification Reported Allergen(s) Allergy Type Date of Onset Reaction(s) Facility (1 source) No Known Medication Allergies; Translations: [No Known Medication Allergies] Propensity to adverse reactions (disorder) [facility] Repository Problems Active Problems Problem Classification Problem Date Documented Da te Episodic/Chronic Asthma (1 source) Unspecified asthma, uncomplicated; Translations: [UNSPECIFIED ASTHMA UNCOMPLICATED] Onset: 02-26-2023 Chronic Chronic obstructive pulmonary disease and bronchiectasis (2 sources) Chronic obstructive pulmonary disease with (acute) exacerbation; Translations: [Chronic obstructive pulmonary disease, unspecified] Onset: 05-03-2022 Chronic Diabetes mellitus without complication (1 source) Type 2 diabetes mellitus without complications; Translations: [TYPE 2 DM WITHOUT COMPLICATIONS] Onset: 03-27-2022 Chronic Essential hypertension (1 source) Essential (primary) hypertension; Translations: [ESSENTIAL PRIMARY HYPERTENSION] Onset: 02-26-2023 Chronic Menopausal disorders (1 source) Menopausal and female climacteric states; Translations: [MENOPAUSAL FE CLIMACTERIC STATES] Onset: 01-15-2023 Chronic Menopausal disorders (1 source) Hormone replacement therapy; Translations: [HORMONE REPLACEMENT THERAPY] Onset: 02-26-2023 Episodic Mood disorders (1 source) Major depressive disorder, single episode, unspecified; Translations: [SAFIA DEPRESS D/O SINGLE EPIS UNS] Onset: 2022 Chronic Mood disorders (1 source) Mood disorders; Translations: [DEPRESSION UNSPECIFIED] Onset: 02-26-2023 Nutritional deficiencies (1 source) Vitamin D deficiency, unspecified; Translations: [VITAMIN D DEFICIENCY UNSPECIFIED] Onset: 08-18-2022 Chronic Osteoporosis (1 source) Age-related osteoporosis without current pathological fracture; Translations: [AGE-REL OSTEOPOR W/O CURR PATH FX] Onset: 01-15-2023 Chronic Other aftercare (1 source) Other care home (current) drug therapy; Translations: [OTH AIR PUMPER CURRENT DRUG THERAPY] Onset: 02-26-2023 Episodic Other connective tissue disease (4 sources) Pain in right hand; Translations: [PAIN IN RIGHT HAND] Onset: 03-05-2023 Episodic Other nervous system disorders (1 source) Other chronic pain; Translations: [OTHER CHRONIC PAIN] Onset: 02-26-2023 Chronic Other nervous system disorders (4 sources) Polyneuropathy, unspecified; Translations: [POLYNEUROPATHY UNSPECIFIED] Onset: 01-04-2023 Chronic Other screening for suspected conditions (not mental disorders or infectious disease) (10 sources) Encounter for screening, unspecified; Translations: [Encounter for screening mammogram for malignant neoplasm of breast] Onset: 09-14-2022 Episodic Other upper respiratory disease (4 sources) Nasal congestion; Translations: [NASAL CONGESTION] Onset: 01-29-2023 Episodic Residual codes; unclassified (1 source) Acquired absence of both cervix and uterus; Translations: [ACQUIRED ABSENCE BOTH CERVIX AND UTERUS] Onset: 02-26-2023 Episodic Residual codes; unclassified (1 source) Acquired absence of other specified parts of digestive tract; Translations: [ACQ ABSENCE OTH PART DIGESTV TRACT] Onset: 02-26-2023 Episodic Residual codes; unclassified (1 source) Family history of malignant neoplasm of breast; Translations: [FAMILY HX MALIG NEOPLASM OF BREAST] Onset: 01-15-2023 Episodic Residual codes; unclassified (1 source) Family history of malignant neoplasm of other organs or systems; Translations: [FAM HX MALIG NEOPLASM OTH ORGN/SYS] Onset: 01-15-2023 Episodic Spondylosis; intervertebral disc disorders; other back problems (5 sources) Cervicalgia; Translations: [Dorsalgia, unspecified] Onset: 05-03-2022 Episodic Substance-related disorders (3 sources) Nicotine dependence, cigarettes, uncomplicated; Translations: [Other psychoactive substance abuse, uncomplicated] Onset: 05-03-2022 Chronic Thyroid disorders (5 sources) Hypothyroidism, unspecified; Translations: [HYPOTHYROIDISM UNSPECIFIED] Onset: 02-20-2023 Chronic Unclassified (1 source) LOW BACK PAIN, UNSPECIFIED; Translations: [LOW BACK PAIN, UNSPECIFIED] Onset: 08-18-2022 Viral infection (1 source) COVID-19; Translations: [COVID-19] Onset: 04-23-2022 Past or Other Problems Problem Classification Problem Date Documented Da te Episodic/Chronic Abdominal pain (3 sources) Unspecified abdominal pain; Translations: [UNSPECIFIED ABDOMINAL PAIN] Onset: 05-02-2022 Episodic E Codes: Natural/environment (1 source) Exposure to other specified factors, initial encounter; Translations: [EXPOSURE OTHER SPEC FACTORS INITIAL] Onset: 03-27-2022 Episodic E Codes: Struck by; against (1 source) Striking against or struck by other objects, initial encounter; Translations: [STRIKING AGNST/STRUCK OTH OBJ INIT] Onset: 2022 Episodic Fluid and electrolyte disorders (5 sources) Hypokalemia; Translations: [HYPOKALEMIA] Onset: 08-18-2022 Episodic Immunizations and screening for infectious disease (1 source) Encounter for screening for other viral diseases; Translations: [ENC SCREENING FOR OTH VIRAL DZ] Onset: 09-14-2022 Episodic Lymphadenitis (4 sources) Localized enlarged lymph nodes; Translations: [LOCALIZED ENLARGED LYMPH NODES] Onset: 08-16-2022 Episodic Other connective tissue disease (4 sources) Pain in left arm; Translations: [PAIN IN LEFT ARM] Onset: 10-08-2022 Episodic Other connective tissue disease (1 source) Pain in left hand; Translations: [PAIN IN LEFT HAND] Onset: 06-26-2022 Episodic Other non-traumatic joint disorders (4 sources) Pain in left shoulder; Translations: [PAIN IN LEFT SHOULDER] Onset: 08-29-2022 Episodic Other non-traumatic joint disorders (4 sources) Pain in right wrist; Translations: [PAIN IN RIGHT WRIST] Onset: 06-22-2022 Episodic Other non-traumatic joint disorders (3 sources) Pain in right ankle and joints of right foot; Translations: [PAIN IN RIGHT ANKLE] Onset: 03-26-2022 Episodic Other upper respiratory infections (1 source) Acute pharyngitis, unspecified; Translations: [ACUTE PHARYNGITIS UNSPECIFIED] Onset: 08-18-2022 Episodic Otitis media and related conditions (1 source) Otitis media, unspecified, left ear; Translations: [OTITIS MEDIA UNSPECIFIED LEFT EAR] Onset: 03-27-2022 Episodic Poisoning by other medications and drugs (4 sources) Poisoning by unspecified narcotics, accidental (unintentional), initial encounter; Translations: [POISON UNS NARCOTIC ACC INITIAL ENC] Onset: 04-20-2022 Episodic Sprains and strains (2 sources) Sprain of joints and ligaments of unspecified parts of neck, initial encounter; Translations: [Sprain of unspecified ligament of right ankle, initial encounter] Onset: 03-27-2022 Episodic Superficial injury; contusion (2 sources) Contusion of other part of head, initial encounter; Translations: [Abrasion of left ear, initial encounter] Onset: 03-27-2022 Episodic Results Test Name Value Interpretation Reference Range Facility XR NECK SOFT TISSUEon 2022 XR NECK SOFT TISSUE EXAM: XR NECK SOFT TISSUE HISTORY: Pain COMPARISON: None. TECHNIQUE: 2 views of the soft tissue neck FINDINGS: The airway is patent. Retropharyngeal space is normal. No air is seen within the soft tissue. The bones are normal. Paranasal sinuses are unremarkable. Visualized portion of the lung is clear. IMPRESSION: No acute finding Electronically authenticated by: ANGY SMALLS Date: 2023-02-23 13:14 Normal [facility] FREE T4on 02-20-2023 Free T4 [Mass/Vol] 0.65 ng/dL Critically low 0.76-1.46 Th [facility] Comment on above: Performed By: #### L ACT #### [facility] [address] [address] [address] Jovanna Oneill TSH W/ REFLEX TO FT4on 02-20 TSH 5.032 uIU/mL Critically high 0.358-3.740 [facility] Comment on above: Performed By: #### L ACT #### [facility] [address] [address] [address] Jovanna Oneill RESPIRATORY PANEL PLUSon Adenovirus Not detected Normal NOT DETECTED [facility] Comment on above: Performed By: #### R SPLUS ####[facility] [address] [address]Dr. Jovanna Oneill B. Parapertusis Not detected Normal NOT DETECTED [facility] Comment on above: Performed By: #### R SPLUS ####[facility] [address] [address]Dr. Jovanna Oneill B. Pertussis Not detected Normal NOT DETECTED [facility] Comment on above: Performed By: #### R SPLUS ####[facility] [address] [address]Dr. Jovanna Oneill Chlamydia Pneumoniae Not detected Normal NOT DETECTED [facility] Comment on above: Performed By: #### R SPLUS ####[facility] [address] [place], [place] [address]Dr. Jovanna Oneill Coronavirus 229E Not detected Normal NOT DETECTED [facility] Comment on above: Performed By: #### R SPLUS ####[facility] [address] [place], [place] [address]Dr. Jovanna Oneill Coronavirus HKU1 Not detected Normal NOT DETECTED [facility] Comment on above: Performed By: #### R SPLUS ####[facility] [address] [place], [place] [address]Dr. Jovanna Oneill Coronavirus NL63 Not detected Normal NOT DETECTED [facility] Comment on above: Performed By: #### R SPLUS ####[facility] [address] [place], [place] [address]Dr. Jovanna Oneill Coronavirus OC43 Not detected Normal NOT DETECTED [facility] Comment on above: Performed By: #### R SPLUS ####[facility] [address] [place], [place] [address]Dr. Jovanna Oneill Influenza A H1 Not detected Normal NOT DETECTED [facility] Comment on above: Performed By: #### R SPLUS ####[facility] [address] [place], [place] [address]Dr. Jovanna Oneill Influenza A H1 2009 Not detected Normal NOT DETECTED [facility] Comment on above: Performed By: #### R SPLUS ####[facility] [address] [place], [place] [address]Dr. Jovanna Oneill Influenza A H3 Not detected Normal NOT DETECTED [facility] Comment on above: Performed By: #### R SPLUS ####[facility] [address] [place], [place] [address]Dr. Jovanna Oneill Influenza B Not detected Normal NOT DETECTED [facility] Comment on above: Performed By: #### R SPLUS ####[facility] [address] [place], [place] [address]Dr. Jovanna Oneill Metapneumovirus Not detected Normal NOT DETECTED [facility] Comment on above: Performed By: #### R SPLUS ####[facility] [address] [place], [place] [address]Dr. Jovanna Oneill Mycoplas. Pneumoniae Not detected Normal NOT DETECTED [facility] Comment on above: Performed By: #### R SPLUS ####[facility] [address] [place], [place] [address]Dr. Jovanna Oneill Parainfluenza 1 Not detected Normal NOT DETECTED [facility] Comment on above: Performed By: #### R SPLUS ####[facility] [address] [place], [place] [address]Dr. Rosaliareagan Oneill Parainfluenza 2 Not detected Normal NOT DETECTED [facility] Comment on above: Performed By: #### R SPLUS ####[facility] [address] [place], [place] [address]Dr. Jovanna Oneill Parainfluenza 3 Not detected Normal NOT DETECTED [facility] Comment on above: Performed By: #### R SPLUS ####[facility] [address] [place], [place] [address]Dr. Jovanna Oneill Parainfluenza 4 Not detected Normal NOT DETECTED [facility] Comment on above: Performed By: #### R SPLUS ####[facility] [address] [place], [place] [address]Dr. Jovanna Oneill Rhino/Enterovirus Not detected Normal NOT DETECTED [facility] Comment on above: Performed By: #### R SPLUS ####[facility] [address] [place], [place] [address]Dr. Jovanna Oneill RP2 Header 1 RESPIRATORY PANEL: VIRUSES Normal [facility] Comment on above: Performed By: #### R SPLUS ####[facility] [address] [place], [place] [address]Dr. Jovanna Oneill RP2 Header 2 RESPIRATORY PANEL: BACTERIA Normal [facility] Comment on above: Performed By: #### R SPLUS ####[facility] [address] [place], [place] [address]Dr. Jovanna Oneill RSV Not detected Normal NOT DETECTED [facility] Comment on above: Performed By: #### R SPLUS ####[facility] [address] [place], [place] [address]Dr. Jovanna Oneill SARS-CoV-2 (COVID-19) RNA DUC+probe Ql (Unsp spec) Not detected Normal NOT DETECTED [facility] Comment on above: Performed By: #### R SPLUS ####[facility] [address] [place], [place] [address]OaJhony Oneill MG MAMM SCREEN 3D CHELLY CADon 01-12-2023 MG MAMM SCREEN 3D CHELLY CAD Patient: SULY THORNE Exam Date: 01/12/2023 : 1975 Gender:F Ordering : TATUM ONOFRE Admission #: [id number] Family : Order #: [id number] CLICK HERE TO VIEW EXAM RADIOLOGY REPORT PROCEDURE: MAMMOGRAM SCREENING 3D BILATERAL CAD COMPARISON: MG MAMM CHELLY DIAG W CAD DIG, 03/02/2014. INDICATIONS: Screening mammography Calculator Name NCI Breast Cancer Risk Assessment Tool 5 Year Breast Cancer Risk 0.90% Lifetime Breast Cancer Risk 8.90% Personal Breast Cancer No Personal Ovarian Cancer No Treatments None Family Cancers Aunt-maternal with breast cancer at age 42; Aunt-maternal with cervical cancer at age 42. LOCATION: [facility] BREAST COMPOSITION: Almost entirely fatty. FINDINGS: DIAGNOSTIC CATEGORY 2--BENIGN FINDING. NO CHANGE FROM COMPARISON. Bilateral inverted nipples RIGHT BREAST: No significant suspicious finding. LEFT BREAST: No significant suspicious finding. RECOMMENDATIONS: ROUTINE MAMMOGRAM AND CLINICAL EVALUATION IN 12 MONTHS. PLEASE NOTE: A NORMAL MAMMOGRAM DOES NOT EXCLUDE THE POSSIBILITY OF BREAST CANCER. A CLINICALLY SUSPICIOUS PALPABLE LUMP SHOULD BE BIOPSIED. Dictated by: Rj Yanez MD on 01/12/2023 at 12:40 Approved by: Rj Yanez MD on 01/12/2023 at 12:42 Normal [facility] XR DEXA BONE DENSITYon 01-12 XR DEXA BONE DENSITY EXAMINATION: XR DEX A BONE DENSITY, 01/12/2023 9:31 AM EST HISTORY: Screening for osteoporosis COMPARISON: None. TECHNIQUE: Dual-energy X-ray absorptiometry (DEXA) bone density study performed for the axial skeleton. FINDINGS: Bone mineral density AP spine L1-L4 measures 0.840 g/sq cm. T score -2.8. WHO classification: Osteoporosis. Lowest bone mineral density left femoral trochanter measuring 0.40 g/sq cm. T score -3.9. WHO classification: Osteoporosis IMPRESSION: Osteoporosis. High fracture risk Electronically authenticated by: RJ YANEZ Date: 2023-01-12 17:10 Normal [facility] GABAPENTIN URINEon 3 Gabapentin, Urine Negative Normal [facility] Comment on above: Performed By: #### G ABAP ####[facility] [address] [address]Dr. Jovanna Oneill DRUG SCREEN RAPID (URINE)on 11-14-2022 AMP Negative Normal NEGATIVE [facility] Comment on above: Performed By: #### V ITB12 #### [facility] [address] [address] [address] Jovanna Oneill BAR Negative Normal NEGATIVE [facility] Comment on above: Performed By: #### V ITB12 #### [facility] [address] [place] [address] Dr. Jovanna Oneill BUP Negative Normal NEGATIVE [facility] Comment on above: Performed By: #### V ITB12 #### [facility] [address] [address] [address] Jovanna Oneill BZO Negative Normal NEGATIVE [facility] Comment on above: Performed By: #### V ITB12 #### [facility] [address] [address] [address] Jovanna Oneill CARA Negative Normal NEGATIVE [facility] Comment on above: Performed By: #### V ITB12 #### [facility] [address] [place] [address] Dr. Jovanna Oneill CUT-OFFS SEE BELOW Normal [facility] Comment on above: Result Comment: AMP (Amphetamine): 500ng/mL, BAR (Barbituates): 200 ng/mL, BZO (Benzodiazepines): 150 ng/mL, BUP (Buprenorphine): 10 ng/mL, CARA (Cocaine): 150 ng/mL, mAMP (Methamphetamine): 500 ng/mL, MTD (Methadone): 200 ng/mL, OPI (Opiates): 100 ng/mL, OXY (Oxycodone): 100 ng/mL, PCP (Phencyclidine): 25 ng/mL, PPX (Propoxyphene): 300 ng/mL, THC (Cannabinoids): 50 ng/mL, TCA (Trycyclic Antidepressants): 300 ng/mL Performed By: #### V ITB12 #### [facility] [address] [place] [address] Dr. Jovanna Oneill DRUG CUT HEADER DRUG CLASS TEST SYSTEM CUT-OFF CONCENTRATIONS ARE FOLLOWS: Normal [facility] Comment on above: Performed By: #### V ITB12 #### [facility] [address] [place] [address] Dr. Jovanna Oneill mAMP Negative Normal NEGATIVE [facility] Comment on above: Performed By: #### V ITB12 #### [facility] [address] [place] [address] Dr. Jovanna Oneill MTD Negative Normal NEGATIVE [facility] Comment on above: Performed By: #### V ITB12 #### [facility] [address] [place] [address] Dr. Jovanna Oneill OPI Positive Abnormal NEGATIVE [facility] Comment on above: Performed By: #### V ITB12 #### [facility] [address] [place] [address] Dr. Jovanna Oneill OXY Negative Normal NEGATIVE [facility] Comment on above: Performed By: #### V ITB12 #### [facility] [address] [place] [address] Dr. Jovanna Oneill PCP Negative Normal NEGATIVE [facility] Comment on above: Performed By: #### V ITB12 #### [facility] [address] [place] [address] Dr. Jovanna Oneill PPX Negative Normal NEGATIVE [facility] Comment on above: Performed By: #### V ITB12 #### [facility] [address] [place] [address] Dr. Jovanna Oneill TCA Negative Normal NEGATIVE [facility] Comment on above: Performed By: #### V ITB12 #### [facility] [address] [place] [address] Dr. Jovanna Oneill THC Positive Abnormal NEGATIVE [facility] Comment on above: Performed By: #### V ITB12 #### [facility] [address] [place] [address] Dr. Jovanna Oneill CBC AUTO DIFFon 10-08-2022 BASO # 0.0 103/ul Normal 0.0-0.[address] [facility] Comment on above: Performed By: #### C BC #### [facility] [address] [place] [address] Dr. Jovanna Oneill Basophils/100 WBC (Bld) 0.4 % Normal 0.2-2.0 [facility] Comment on above: Performed By: #### C BC #### [facility] [address] [place], [place] [address] Dr. Jovanna Oneill EO # 0.1 103/ul Normal 0.0-0.7 [facility] Comment on above: Performed By: #### C BC #### [facility] [address] [place] [address] Dr. Jovanna Oneill Eosinophils/100 WBC (Bld) 1.3 % Normal 0.9-7.[address] [facility] Comment on above: Performed By: #### C BC #### [facility] [address] [place] [address] Dr. Jovanna Oneill Erythrocyte distribution width (RBC) [Ratio] 12.0 % Normal 11.0-15.[address] [facility] Comment on above: Performed By: #### C BC #### [facility] [address] [place] [address] Dr. Jovanna Oneill Hematocrit (Bld) [Volume fraction] 37.8 % Normal 36.0-48.[address] [facility] Comment on above: Performed By: #### C BC #### [facility] [address] [place] [address] Dr. Jovanna Oneill Hemoglobin (Bld) [Mass/Vol] 12.8 g/dL Normal 12.0-16.0 [facility] Comment on above: Performed By: #### C BC #### [facility] [address] [place] [address] Dr. Jovanna Oneill IG # 0.02 10e3/ul Normal 0.00-0.03 [facility] Comment on above: Performed By: #### C BC #### [facility] [address] [place] [address] Dr. Jovanna Oneill IG % 0.2 % Normal 0.0-0.[address] [facility] Comment on above: Performed By: #### C BC #### [facility] [address] [place] [address] Dr. Jovanna Oneill LYMPH # 3.5 103/ul Normal 1.2-3.[address] [facility] Comment on above: Performed By: #### C BC #### [facility] [address] [place] [address] Dr. Jovanna Oneill Lymphocytes/100 WBC (Bld) 37.9 % Normal 20.5-60.[address] [facility] Comment on above: Performed By: #### C BC #### [facility] [address] [place] [address] Dr. Jovanna Oneill MANUAL DIFF REQ NO Normal [facility] Comment on above: Performed By: #### C BC #### [facility] [address] [place] [address] Dr. Jovanna Oneill MCH (RBC) [Entitic mass] 31.7 pg Normal 26.7-34.[address] [facility] Comment on above: Performed By: #### C BC #### [facility] [address] [place] [address] Dr. Jovanna Oneill MCHC (RBC) [Mass/Vol] 33.9 g/dL Normal 29.9-35.[address] [facility] Comment on above: Performed By: #### C BC #### [facility] [address] [place] [address] Dr. Jovanna Oneill MCV (RBC) [Entitic vol] 93.6 fL Normal 81.0-99.[address] [facility] Comment on above: Performed By: #### C BC #### [facility] [address] [place] [address] Dr. Jovanna Oneill MONO # 0.5 103/ul Normal 0.3-0.[address] [facility] Comment on above: Performed By: #### C BC #### [facility] [address] [place] [address] Dr. Jovanna Oneill Monocytes/100 WBC (Bld) 4.8 % Normal 1.7-12.[address] [facility] Comment on above: Performed By: #### C BC #### [facility] [address] [address] [address] Jovanna Oneill NEUT # 5.1 103/ul Normal 1.4-6.[address] [facility] Comment on above: Performed By: #### C BC #### [facility] [address] [place] [address] Dr. Jovanna Oneill Neutrophils/100 WBC (Bld) 55.4 % Normal 43.0-75.[address] [facility] Comment on above: Performed By: #### C BC #### [facility] [address] [place] [address] Dr. Jovanna Oneill Platelet mean volume (Bld) [Entitic vol] 10.2 fL Normal 9.5-13.[address] [facility] Comment on above: Performed By: #### C BC #### [facility] [address] [place] [address] Dr. Jovanna Oneill PLT 181 103/ul Normal 150-450 [facility] Comment on above: Performed By: #### C BC #### [facility] [address] [place] [address] Dr. Jovanna Oneill RBC 4.04 106/ul Critically low 4.20-5.40 [facility] Comment on above: Performed By: #### C BC #### [facility] [address] [place] [address] Dr. Jovanna Oneill WBC 9.3 103/ul Normal 4.0-11.0 [facility] Comment on above: Performed By: #### C BC #### [facility] [address] [address] [address] Jovanna Oneill CRPon 10-08-2022 CRP [Mass/Vol] mg/L Normal <=1.0 [facility] Comment on above: Performed By: #### B MP, CRP ####[facility] [id number] [address]Dr. Jovanna Oneill LACTATE/LACTIC ACIDon 2021 Lactate [Moles/Vol] 0.4 mmol/L Normal 0.4-1.9 [facility] Comment on above: Performed By: #### L ACT #### [facility] [address] [place] [address] Dr. Jovanna Oneill PROF CHEM 8 (BAS METB)on Anion gap [Moles/Vol] 12.6 mmol/L Normal [facility] Comment on above: Performed By: #### B MP, CRP #### [facility] [address] [place] [address] Dr. Jovanna Oneill Calcium [Mass/Vol] 8.6 mg/dL Normal 8.5-10.1 [facility] Comment on above: Performed By: #### B MP, CRP #### [facility] [address] [place] [address] Dr. Jovanna Oneill Chloride [Moles/Vol] 104 mmol/L Normal 98-[address] [facility] Comment on above: Performed By: #### B MP, CRP #### [facility] [address] [place] [address] Dr. Jovanna Oneill CO2 [Moles/Vol] 26.8 mmol/L Normal 21.0-32.0 [facility] Comment on above: Performed By: #### B MP, CRP #### [facility] [address] [place] [address] Dr. Jovanna Oneill Creatinine [Mass/Vol] 0.52 mg/dL Critically low 0.55-1.[address] [facility] Comment on above: Performed By: #### B MP, CRP #### [facility] [address] [place] [address] Dr. Jovanna Oneill EGFR-AF ESTONIAN >60 Normal >=[address] [facility] Comment on above: Performed By: #### B MP, CRP #### [facility] [address] [place] [address] Dr. Jovanna Oneill EGFR-NON AF ESTONIAN >60 Normal >=[address] [facility] Comment on above: Performed By: #### B MP, CRP #### [facility] [address] [place] [address] Dr. Jovanna Oneill Glucose [Mass/Vol] 93 mg/dL Normal 74-106 [facility] Comment on above: Performed By: #### B MP, CRP #### [facility] [address] [address] [address] Jovanna Oneill Potassium [Moles/Vol] 3.4 mmol/L Critically low 3.5-5.[address] [facility] Comment on above: Performed By: #### B MP, CRP #### [facility] [address] [address] [address] Jovanna Oneill Sodium [Moles/Vol] 140 mmol/L Normal 136-145 [facility] Comment on above: Performed By: #### B MP, CRP #### [facility] [address] [address] [address] Jovanna Oneill Urea nitrogen [Mass/Vol] 11.0 mg/dL Normal 7.0-18.[address] [facility] Comment on above: Performed By: #### B MP, CRP #### [facility] [address] [address] [address] Jovanna Oneill Urea nitrogen/Creatinine [Mass ratio] 21.2 mg/mg Normal [facility] Comment on above: Performed By: #### B MP, CRP #### [facility] [address] [address] [address] Joavnna Oneill SED RATE [facility] 2021 SED RATE 17 mm/hr Normal <=[address] [facility] Comment on above: Performed By: #### S EDR ####[facility] [id number] [address]Dr. Jovanna Oneill Physician Referralon 022 Physician Referral [id number]:127 Normal [facility] Physician Referral [id number] .[id number]:127 Normal [facility] PROF 14(COMP METB)on 022 Albumin [Mass/Vol] 3.4 g/dL Normal 3.4-5.0 [facility] Comment on above: Performed By: #### V ITB12 #### [facility] [address] [address] [address] Jovanna Oneill Albumin/Globulin [Mass ratio] 1.1 {ratio} Normal [facility] Comment on above: Performed By: #### V ITB12 #### [facility] [address] [address] [address] Jovanna Oneill ALP [Catalytic activity/Vol] 88 U/L Normal 46-[address] [facility] Comment on above: Performed By: #### V ITB12 #### [facility] [address] [address] [address] Jovanna Oneill ALT [Catalytic activity/Vol] 11 U/L Critically low 14-[address] [facility] Comment on above: Performed By: #### V ITB12 #### [facility] [address] [address] [address] Jovanna Oneill Anion gap [Moles/Vol] 8.7 mmol/L Normal [facility] Comment on above: Performed By: #### V ITB12 #### [facility] [address] [address] [address] Jovanna Oneill AST [Catalytic activity/Vol] 13 U/L Critically low 15-[address] [facility] Comment on above: Performed By: #### V ITB12 #### [facility] [address] [address] [address] Jovanna Oneill Bilirubin [Mass/Vol] 0.6 mg/dL Normal 0.2-1.[address] [facility] Comment on above: Performed By: #### V ITB12 #### [facility] [address] [address] [address] Jovanna Oneill Calcium [Mass/Vol] 8.7 mg/dL Normal 8.5-10.1 [facility] Comment on above: Performed By: #### V ITB12 #### [facility] [address] [address] [address] Jovanna Oneill Chloride [Moles/Vol] 104 mmol/L Normal 98-[address] [facility] Comment on above: Performed By: #### V ITB12 #### [facility] [address] [address] [address] Jovanna Oneill CO2 [Moles/Vol] 31.9 mmol/L Normal 21.0-32.0 [facility] Comment on above: Performed By: #### V ITB12 #### [facility] [address] [address] [address] Jovanna Oneill Creatinine [Mass/Vol] 0.65 mg/dL Normal 0.55-1.[address] [facility] Comment on above: Performed By: #### V ITB12 #### [facility] [address] [address] [address] Jovanna Oneill EGFR-AF ESTONIAN >60 Normal >=60 [facility] Comment on above: Performed By: #### V ITB12 #### [facility] [address] [address] [address] Jovanna Oneill EGFR-NON AF ESTONIAN >60 Normal >=[address] [facility] Comment on above: Performed By: #### V ITB12 #### [facility] [address] [address] [address] Jovanna Oneill Globulin (S) [Mass/Vol] 3.2 g/dL Normal [facility] Comment on above: Performed By: #### V ITB12 #### [facility] [address] [address] [address] Jovanna Oneill Glucose [Mass/Vol] 91 mg/dL Normal 74-106 [facility] Comment on above: Performed By: #### V ITB12 #### [facility] [address] [address] [address] Jovanna Oneill Potassium [Moles/Vol] 3.6 mmol/L Normal 3.5-5.1 [facility] Comment on above: Performed By: #### V ITB12 #### [facility] [address] [address] [address] Jovanna Oneill Protein [Mass/Vol] 6.6 g/dL Normal 6.4-8.2 [facility] Comment on above: Performed By: #### V ITB12 #### [facility] [address] [place] [address] Dr. Jovanna Oneill Sodium [Moles/Vol] 141 mmol/L Normal 136-145 [facility] Comment on above: Performed By: #### V ITB12 #### [facility] [address] [place] [address] Dr. Jovanna Oneill Urea nitrogen [Mass/Vol] 4.0 mg/dL Critically low 7.0-18.[address] [facility] Comment on above: Performed By: #### V ITB12 #### [facility] [address] [place] [address] Dr. Jovanna Oneill Urea nitrogen/Creatinine [Mass ratio] 6.2 mg/mg Normal [facility] Comment on above: Performed By: #### V ITB12 #### [facility] [address] [place] [address] Dr. Jovanna Oneill HEPATITIS C AB CASCADE TO QU ANT PCR GENOon 09-13-2022 HCV AB <0.1 Normal 0.0-0.[address] [facility] Comment on above: Performed By: #### H EPCASC #### [facility] [address] [place] [address] Dr. Jovanna Oneill Interpretation: Comment Normal [facility] Comment on above: Result Comment: Nega tive Not infected with HCV, unless recent infection is suspected or other evidence exists to indicate HCV infection. Performed By: #### H EPCASC #### [facility] [address] [place] [address] Dr. Jovanna Oneill CBC AUTO DIFFon 09-12-2022 BASO # 0.0 103/ul Normal 0.0-0.[address] [facility] Comment on above: Performed By: #### C BC #### [facility] [address] [place] [address] Dr. Jovanna Oneill Basophils/100 WBC (Bld) 0.3 % Normal 0.2-2.[address] [facility] Comment on above: Performed By: #### C BC #### [facility] [address] [place] [address] Dr. Jovanna Oneill EO # 0.1 103/ul Normal 0.0-0.7 [facility] Comment on above: Performed By: #### C BC #### [facility] [address] [place] [address] Dr. Jovanna Oneill Eosinophils/100 WBC (Bld) 0.7 % Critically low 0.9-7.[address] [facility] Comment on above: Performed By: #### C BC #### [facility] [address] [place] [address] Dr. Jovanna Oneill Erythrocyte distribution width (RBC) [Ratio] 12.3 % Normal 11.0-15.[address] [facility] Comment on above: Performed By: #### C BC #### [facility] [address] [place] [address] Dr. Jovanna Oneill Hematocrit (Bld) [Volume fraction] 40.2 % Normal 36.0-48.[address] [facility] Comment on above: Performed By: #### C BC #### [facility] [address] [place] [address] Dr. Jovanna Oneill Hemoglobin (Bld) [Mass/Vol] 13.4 g/dL Normal 12.0-16.0 [facility] Comment on above: Performed By: #### C BC #### [facility] [address] [place] [address] Dr. Jovanna Oneill IG # 0.02 10e3/ul Normal 0.00-0.03 [facility] Comment on above: Performed By: #### C BC #### [facility] [address] [place] [address] Dr. Jovanna Oneill IG % 0.3 % Normal 0.0-0.5 [facility] Comment on above: Performed By: #### C BC #### [facility] [address] [place] [address] Dr. Jovanna Oneill LYMPH # 2.2 103/ul Normal 1.2-3.8 [facility] Comment on above: Performed By: #### C BC #### [facility] [address] [place] [address] Dr. Jovanna Oneill Lymphocytes/100 WBC (Bld) 31.9 % Normal 20.5-60.[address] [facility] Comment on above: Performed By: #### C BC #### [facility] [address] [place] [address] Dr. Jovanna Oneill MANUAL DIFF REQ NO Normal [facility] Comment on above: Performed By: #### C BC #### [facility] [address] [place] [address] Dr. Jovanna Oneill MCH (RBC) [Entitic mass] 31.8 pg Normal 26.7-34.[address] [facility] Comment on above: Performed By: #### C BC #### [facility] [address] [place] [address] Dr. Jovanna Oneill MCHC (RBC) [Mass/Vol] 33.3 g/dL Normal 29.9-35.[address] [facility] Comment on above: Performed By: #### C BC #### [facility] [address] [place] [address] Dr. Jovanna Oneill MCV (RBC) [Entitic vol] 95.5 fL Normal 81.0-99.[address] [facility] Comment on above: Performed By: #### C BC #### [facility] [address] [place] [address] Dr. Jovanna Oneill MONO # 0.3 103/ul Normal 0.3-0.[address] [facility] Comment on above: Performed By: #### C BC #### [facility] [address] [place] [address] Dr. Jovanna Oneill Monocytes/100 WBC (Bld) 4.4 % Normal 1.7-12.[address] [facility] Comment on above: Performed By: #### C BC #### [facility] [address] [place] [address] Dr. Jovanna Oneill NEUT # 4.4 103/ul Normal 1.4-6.[address] [facility] Comment on above: Performed By: #### C BC #### [facility] [address] [place] [address] Dr. Jovanna Oneill Neutrophils/100 WBC (Bld) 62.4 % Normal 43.0-75.[address] [facility] Comment on above: Performed By: #### C BC #### [facility] [address] [address] [address] Jovanna Oneill Platelet mean volume (Bld) [Entitic vol] 10.9 fL Normal 9.5-13.[address] [facility] Comment on above: Performed By: #### C BC #### [facility] [address] [address] [address] Jovanna Oneill PLT 179 103/ul Normal 150-450 [facility] Comment on above: Performed By: #### C BC #### [facility] [address] [address] [address] Jovanna Oneill RBC 4.21 106/ul Normal 4.20-5.[address] [facility] Comment on above: Performed By: #### C BC #### [facility] [address] [place] [address] Dr. Jovanna Oneill WBC 7.0 103/ul Normal 4.0-11.[address] [facility] Comment on above: Performed By: #### C BC #### [facility] [address] [place] [address] Dr. Jovanna Oneill GLYCOHEMOGLOBIN A1Con 2021 ADA RECOMMENDATION SEE BELOW Normal [facility] Comment on above: Result Comment: ADA RECOMMENDED LIMIT 4.0 - 6.0 ADA THERAPEUTIC TARGET < 7.0 ACTION SUGGESTED > 7.0 Performed By: #### L ACT #### [facility] [address] [place] [address] Dr. Jovanna Oneill Glucose [Mass/Vol] 105 mg/dL Normal [facility] Comment on above: Performed By: #### L ACT #### [facility] [address] [place] [address] Dr. Jovanna Oneill HbA1c (Bld) [Mass fraction] 5.3 % Normal 4.5-6.[address] [facility] Comment on above: Performed By: #### L ACT #### [facility] [address] [place] [address] Dr. Jovanna Oneill LIPID PROFILEon 09-12-2022 CHOL-HDL RATIO NORM SEE BELOW Normal [facility] Comment on above: Result Comment: 3.3 - 4.4 LOW RISK 4.4 - 7.1 AVERAGE RISK 7.1 - 11.0 MODERATE RISK >11.0 HIGH RISK Performed By: #### C MP, LIPID #### [facility] [address] [address] [address] Jovanna Oneill Cholesterol [Mass/Vol] 135 mg/dL Normal <=[address] [facility] Comment on above: Performed By: #### C MP, LIPID #### [facility] [address] [address] [address] Jovanna Oneill Cholesterol in HDL [Mass/Vol] 35 mg/dL Critically low 40-[address] [facility] Comment on above: Performed By: #### C MP, LIPID #### [facility] [address] [address] [address] Jovanna Oneill Cholesterol in LDL [Mass/Vol] 84.8 mg/dL Normal [facility] Comment on above: Performed By: #### C MP, LIPID #### [facility] [address] [address] [address] Jovanna Oneill Cholesterol.total/Cho lesterol in HDL [Mass ratio] 3.9 {ratio} Normal [facility] Comment on above: Performed By: #### C MP, LIPID #### [facility] [address] [address] [address] Jovanna Oneill HDL NORMAL > or = 60 mg/dl - LO W CARDIOVASCULAR RISK <40 mg/dl - HIGH CARDIOVASCULAR RISK Normal [facility] Comment on above: Performed By: #### C MP, LIPID #### [facility] [address] [address] [address] Jovanna Oneill LDL CALC NORMAL SEE BELOW Normal [facility] Comment on above: Result Comment: <100 mg/dl OPTIMAL 100 - 129 mg/dl NEAR OR ABOVE OPTIMAL 130 - 159 mg/dl BORDERLINE HIGH 160 - 189 mg/dl HIGH >190 mg/dl VERY HIGH Performed By: #### C MP, LIPID #### [facility] [address] [address] [address] Jovanna Oneill Triglyceride [Mass/Vol] 76 mg/dL Normal <=[address] [facility] Comment on above: Performed By: #### C MP, LIPID #### [facility] [address] [place] [address] Dr. Jovanna Oneill VLDL CALC 15.2 mg/dL Normal [facility] Comment on above: Performed By: #### C MP, LIPID #### [facility] [address] [place] [address] Dr. Jovanna Oneill PROF 14(COMP METB)on 022 Albumin [Mass/Vol] 3.5 g/dL Normal 3.4-5.0 [facility] Comment on above: Performed By: #### C MP, LIPID #### [facility] [address] [place] [address] Dr. Jovanna Oneill Albumin/Globulin [Mass ratio] 1.1 {ratio} Normal [facility] Comment on above: Performed By: #### C MP, LIPID #### [facility] [address] [place] [address] Dr. Jovanna Oneill ALP [Catalytic activity/Vol] 79 U/L Normal 46-[address] [facility] Comment on above: Performed By: #### C MP, LIPID #### [facility] [address] [place] [address] Dr. Jovanna Oneill ALT [Catalytic activity/Vol] 15 U/L Normal 14-[address] [facility] Comment on above: Performed By: #### C MP, LIPID #### [facility] [address] [place] [address] Dr. Jovanna Oneill Anion gap [Moles/Vol] 4.9 mmol/L Normal [facility] Comment on above: Performed By: #### C MP, LIPID #### [facility] [address] [place] [address] Dr. Jovanna Oneill AST [Catalytic activity/Vol] 17 U/L Normal 15-[address] [facility] Comment on above: Performed By: #### C MP, LIPID #### [facility] [address] [place] [address] Dr. Jovanna Oneill Bilirubin [Mass/Vol] 0.4 mg/dL Normal 0.2-1.[address] [facility] Comment on above: Performed By: #### C MP, LIPID #### [facility] [address] [place] [address] Dr. Jovanna Oneill Calcium [Mass/Vol] 8.7 mg/dL Normal 8.5-10.1 [facility] Comment on above: Performed By: #### C MP, LIPID #### [facility] [address] [place] [address] Dr. Jovanna Oneill Chloride [Moles/Vol] 103 mmol/L Normal 98-[address] [facility] Comment on above: Performed By: #### C MP, LIPID #### [facility] [address] [place] [address] Dr. Jovanna Oneill CO2 [Moles/Vol] 35.8 mmol/L Critically high 21.0-32.[address] [facility] Comment on above: Performed By: #### C MP, LIPID #### [facility] [address] [place] [address] Dr. Jovanna Oneill Creatinine [Mass/Vol] 0.70 mg/dL Normal 0.55-1.[address] [facility] Comment on above: Performed By: #### C MP, LIPID #### [facility] [address] [place] [address] Dr. Jovanna Oneill EGFR-AF ESTONIAN >60 Normal >=[address] [facility] Comment on above: Performed By: #### C MP, LIPID #### [facility] [address] [place] [address] Dr. Jovanna Oneill EGFR-NON AF ESTONIAN >60 Normal >=[address] [facility] Comment on above: Performed By: #### C MP, LIPID #### [facility] [address] [place] [address] Dr. Jovanna Oneill Globulin (S) [Mass/Vol] 3.2 g/dL Normal [facility] Comment on above: Performed By: #### C MP, LIPID #### [facility] [address] [place] [address] Dr. Jovanna Oneill Glucose [Mass/Vol] 86 mg/dL Normal 74-106 [facility] Comment on above: Performed By: #### C MP, LIPID #### [facility] [address] [address] [address] Jovanna Oneill Potassium [Moles/Vol] 2.7 mmol/L Critically low 3.5-5.[address] [facility] Comment on above: Performed By: #### C MP, LIPID #### [facility] [address] [address] [address] Jovanna Oneill Protein [Mass/Vol] 6.7 g/dL Normal 6.4-8.2 [facility] Comment on above: Performed By: #### C MP, LIPID #### [facility] [address] [place] [address] Dr. Jovanna Oneill Sodium [Moles/Vol] 141 mmol/L Normal 136-145 [facility] Comment on above: Performed By: #### C MP, LIPID #### [facility] [address] [address] [address] Jovanna Oneill Urea nitrogen [Mass/Vol] 6.0 mg/dL Critically low 7.0-18.[address] [facility] Comment on above: Performed By: #### C MP, LIPID #### [facility] [address] [place] [address] Dr. Jovanna Oneill Urea nitrogen/Creatinine [Mass ratio] 8.6 mg/mg Normal [facility] Comment on above: Performed By: #### C MP, LIPID #### [facility] [address] [place] [address] Dr. Jovanna Oneill US THYROIDon 09-12-2022 US THYROID EXAMINATION: US THYROID HISTORY: Hypothyroidism COMPARISON: No relevant comparison available. FINDINGS: RIGHT LOBE: Heterogeneous hypovascular lobe. Contains a 12 x 12 x 8 mm TR 3 nodule within superior pole. Lobe size: 5.1 x 2.2 x 1.6 cm LEFT LOBE: Heterogeneous hypervascular lobe. Contains a 10 x 7 x 6 mm TR 3 nodule within superior pole. Lobe size: 3.7 x 1.6 x 1.5 cm ISTHMUS: Normal size and echotexture. Thickness: 4 mm IMPRESSION: 1. Heterogeneous hypervascular thyroid gland suggestive of thyroiditis. 2. Nonspecific 1 cm TR 3 nodule within the right and left lobe. No additional follow-up recommended at this time. TR3 (mildly suspicious): > 1.5 cm, follow-up ultrasound in 1, 3, and 5 years. > 2.5 cm, fine needle aspiration. Electronically authenticated by: FRANCES AGUSTIN Date: 2022-09-12 11:[address] [facility] VITAMIN B12on 09-12-2022 Cobalamin (Vitamin B12) [Mass/Vol] 280.0 pg/mL Normal 193.0-986.[address] [facility] Comment on above: Performed By: #### V ITB12 #### [facility] [address] [place] [address] CSPINE WO CONon 2 CT CSPINE WO CON EXAMINATION: CT CSPINE WO CON HISTORY: Traumatic injury COMPARISON: CT neck 08/16/2022 TECHNIQUE: CT Cervical spine without IV contrast. Coronal and sagittal reformations were performed. Dose reduction techniques were achieved by using automated exposure control and/or adjustment of mA and/or kV according to patient size and/or use of iterative reconstruction technique. FINDINGS: There is preservation of the normal cervical lordosis. No acute fracture or subluxation is seen. There are degenerative changes present, greatest at C5-C6. There is bilateral neural foraminal narrowing at this level. Normal precervical soft tissues. Emphysematous changes are seen at the lung apices, left greater than right. IMPRESSION: Mild degenerative changes, greatest at C5-C6. No acute fracture or traumatic malalignment. Emphysematous changes noted at the lung apices. Electronically authenticated by: MAN VILLALOBOS Date: 2022-08-24 18:11 Normal [facility] CT NECK ST W CONon [address] W CON EXAMINATION: CT NECK ST W CON HISTORY: Pain COMPARISON: None. TECHNIQUE: CT examination of the soft tissues of the neck following the administration of intravenous contrast. Coronal and sagittal reformations were performed. Dose reduction techniques were achieved by using automated exposure control and/or adjustment of mA and/or kV according to patient size and/or use of iterative reconstruction technique. FINDINGS: Thyroid appears minimally heterogeneous with possible small nodule on the left. Major salivary glands appear otherwise unremarkable. No evidence of enhancing soft tissue mass or bulky/necrotic lymphadenopathy throughout the neck. A couple of mildly prominent submental lymph nodes, largest 11.5 x 8.7 mm just right of midline. Another superficial node slightly further inferiorly in the right anterior neck close to the level of the larynx is 10.4 x 7.3 mm. No evidence of focal fluid collection to suggest abscess. Vasculature appears grossly unremarkable. Left vertebral artery is dominant. No acute osseous abnormality. Mild degenerative change of the cervical spine. Airway appears patent and nondisplaced. Included lung apices show mild emphysematous changes. IMPRESSION: A couple of mildly enlarged right submental and superficial right anterior lymph nodes, likely reactive. Please follow-up clinically for appropriate resolution. No evidence of enhancing mass or abscess in the neck. Electronically authenticated by: WOO PAIGE Date: 2022-08-16 23:10 Normal [facility] CBC AUTO DIFFon 08-16-2022 BASO # 0.0 103/ul Normal 0.0-0.[address] [facility] Comment on above: Performed By: #### C BC ####[facility] [address] [address]Dr. Jovanna Oneill Basophils/100 WBC (Bld) 0.2 % Normal 0.2-2.0 [facility] Comment on above: Performed By: #### C BC ####[facility] [address] [address]DrJhony Oneill EO # 0.1 103/ul Normal 0.0-0.7 [facility] Comment on above: Performed By: #### C BC ####[facility] [address] [address]DrJhony Oneill Eosinophils/100 WBC (Bld) 0.7 % Critically low 0.9-7.0 [facility] Comment on above: Performed By: #### C BC ####[facility] [address] [address]DrJhony Oneill Erythrocyte distribution width (RBC) [Ratio] 12.1 % Normal 11.0-15.0 [facility] Comment on above: Performed By: #### C BC ####[facility] [address] [address]Dr. Jovanna Oneill Hematocrit (Bld) [Volume fraction] 38.8 % Normal 36.0-48.0 [facility] Comment on above: Performed By: #### C BC ####[facility] [address] [address]Dr. Jovanna Oneill Hemoglobin (Bld) [Mass/Vol] 12.8 g/dL Normal 12.0-16.0 [facility] Comment on above: Performed By: #### C BC ####[facility] [address] [address]Dr. Jovanna Oneill IG # 0.06 10e3/ul Critically high 0.00-0.03 [facility] Comment on above: Performed By: #### C BC ####[facility] [address] [address]Dr. Jovanna Oneill IG % 0.4 % Normal 0.0-0.[address] [facility] Comment on above: Performed By: #### C BC ####[facility] [address] [place], [place] [address]Dr. Jovanna Oneill LYMPH # 2.5 103/ul Normal 1.2-3.8 [facility] Comment on above: Performed By: #### C BC ####[facility] [address] [place], [place] [address]DrJhony Oneill Lymphocytes/100 WBC (Bld) 18.1 % Critically low 20.5-60.0 [facility] Comment on above: Performed By: #### C BC ####[facility] [address] [address]DrJhony Oneill MANUAL DIFF REQ NO Normal [facility] Comment on above: Performed By: #### C BC ####[facility] [address] [address]Dr. Jovanna Oneill MCH (RBC) [Entitic mass] 32.0 pg Normal 26.7-34.0 [facility] Comment on above: Performed By: #### C BC ####[facility] [address] [place], [place] [address]Dr. Jovanna Oneill MCHC (RBC) [Mass/Vol] 33.0 g/dL Normal 29.9-35.2 [facility] Comment on above: Performed By: #### C BC ####[facility] [address] [id number]. Jovanna Oneill MCV (RBC) [Entitic vol] 97.0 fL Normal 81.0-99.0 [facility] Comment on above: Performed By: #### C BC ####[facility] [address] [place], [place] [address]DrJhony Oneill MONO # 0.6 103/ul Normal 0.3-0.8 [facility] Comment on above: Performed By: #### C BC ####[facility] [address] [place], [place] [address]Dr. Jovanna Oneill Monocytes/100 WBC (Bld) 4.5 % Normal 1.7-12.0 [facility] Comment on above: Performed By: #### C BC ####[facility] [address] [place], [place] [address]Dr. Jovanna Oneill NEUT # 10.4 103/ul Critically high 1.4-6.[address] [facility] Comment on above: Performed By: #### C BC ####[facility] [address] [place], [place] [address]Dr. Rosaliareagan Oneill Neutrophils/100 WBC (Bld) 76.1 % Critically high 43.0-75.0 [facility] Comment on above: Performed By: #### C BC ####[facility] [address] [place], [place] [address]Dr. Jovanna Oneill Platelet mean volume (Bld) [Entitic vol] 10.9 fL Normal 9.5-13.5 [facility] Comment on above: Performed By: #### C BC ####[facility] [address] [place], [place] [address]Dr. Jovanna Oneill PLT 193 103/ul Normal 150-450 [facility] Comment on above: Performed By: #### C BC ####[facility] [address] [place], [place] [address]DrJhony Oneill RBC 4.00 106/ul Critically low 4.20-5.[address] [facility] Comment on above: Performed By: #### C BC ####[facility] [address] [place], [place] [address]QvJhony Oneill WBC 13.7 103/ul Critically high 4.0-11.0 [facility] Comment on above: Performed By: #### C BC ####[facility] [address] [id number] Oneill FREE T4on 08-16-2022 Free T4 [Mass/Vol] 0.68 ng/dL Critically low 0.76-1.46 [facility] Comment on above: Performed By: #### L ACT #### [facility] [address] [place] [address] Dr. Jovanna Oneill HS-CRPon 08-16-2022 HS-CRP 1.04 mg/L Normal <=3.[address] [facility] Comment on above: Performed By: #### L ACT #### [facility] [address] [place] [address] Dr. Jovanna Oneill PROF 14(COMP METB)on 022 Albumin [Mass/Vol] 3.5 g/dL Normal 3.4-5.0 [facility] Comment on above: Performed By: #### V ITB12 #### [facility] [address] [place] [address] Dr. Jovanna Oneill Albumin/Globulin [Mass ratio] 1.1 {ratio} Normal [facility] Comment on above: Performed By: #### V ITB12 #### [facility] [address] [place] [address] Dr. Jovanna Oneill ALP [Catalytic activity/Vol] 82 U/L Normal 46-116 [facility] Comment on above: Performed By: #### V ITB12 #### [facility] [address] [place] [address] Dr. Jovanna Oneill ALT [Catalytic activity/Vol] 17 U/L Normal 14-[address] [facility] Comment on above: Performed By: #### V ITB12 #### [facility] [address] [address] [address] Jovanna Oneill Anion gap [Moles/Vol] 9.6 mmol/L Normal [facility] Comment on above: Performed By: #### V ITB12 #### [facility] [address] [address] [address] Jovanna Oneill AST [Catalytic activity/Vol] 17 U/L Normal 15-[address] [facility] Comment on above: Performed By: #### V ITB12 #### [facility] [address] [place] [address] Dr. Jovanna Oneill Bilirubin [Mass/Vol] 0.4 mg/dL Normal 0.2-1.[address] [facility] Comment on above: Performed By: #### V ITB12 #### [facility] [address] [place] [address] Dr. Jovanna Oneill Calcium [Mass/Vol] 8.7 mg/dL Normal 8.5-10.1 [facility] Comment on above: Performed By: #### V ITB12 #### [facility] [address] [place] [address] Dr. Jovanna Oneill Chloride [Moles/Vol] 105 mmol/L Normal 98-[address] [facility] Comment on above: Performed By: #### V ITB12 #### [facility] [address] [place] [address] Dr. Jovanna Oneill CO2 [Moles/Vol] 30.9 mmol/L Normal 21.0-32.[address] [facility] Comment on above: Performed By: #### V ITB12 #### [facility] [address] [place] [address] Dr. Jovanna Oneill Creatinine [Mass/Vol] 0.69 mg/dL Normal 0.55-1.[address] [facility] Comment on above: Performed By: #### V ITB12 #### [facility] [address] [place] [address] Dr. Jovanna Oneill EGFR-AF ESTONIAN >60 Normal >=[address] [facility] Comment on above: Performed By: #### V ITB12 #### [facility] [address] [address] [address] Jovanna Oneill EGFR-NON AF ESTONIAN >60 Normal >=60 [facility] Comment on above: Performed By: #### V ITB12 #### [facility] [address] [address] [address] Jovanna Oneill Globulin (S) [Mass/Vol] 3.1 g/dL Normal [facility] Comment on above: Performed By: #### V ITB12 #### [facility] [address] [address] [address] Jovanna Oneill Glucose [Mass/Vol] 84 mg/dL Normal 74-106 [facility] Comment on above: Performed By: #### V ITB12 #### [facility] [address] [place] [address] Dr. Jovanna Oneill Potassium [Moles/Vol] 3.5 mmol/L Normal 3.5-5.1 [facility] Comment on above: Performed By: #### V ITB12 #### [facility] [address] [address] [address] Jovanna Oneill Protein [Mass/Vol] 6.6 g/dL Normal 6.4-8.2 [facility] Comment on above: Performed By: #### V ITB12 #### [facility] [address] [place] [address] Dr. Jovanna Oneill Sodium [Moles/Vol] 142 mmol/L Normal 136-145 [facility] Comment on above: Performed By: #### V ITB12 #### [facility] [address] [address] [address] Jovanna Oneill Urea nitrogen [Mass/Vol] 7.0 mg/dL Normal 7.0-18.0 [facility] Comment on above: Performed By: #### V ITB12 #### [facility] [address] [address] [address] Jovanna Oneill Urea nitrogen/Creatinine [Mass ratio] 10.1 mg/mg Normal [facility] Comment on above: Performed By: #### V ITB12 #### [facility] [address] [address] [address] Jovanna Oneill PROF CHEM 8 (BAS METB)on Anion gap [Moles/Vol] 8.5 mmol/L Normal [facility] Comment on above: Performed By: #### L ACT #### [facility] [address] [address] [address] Jovanna Oneill Calcium [Mass/Vol] 8.3 mg/dL Critically low 8.5-10.1 [facility] Comment on above: Performed By: #### L ACT #### [facility] [address] [place] [address] Dr. Jovanna Oneill Chloride [Moles/Vol] 105 mmol/L Normal 98-[address] [facility] Comment on above: Performed By: #### L ACT #### [facility] [address] [place] [address] Dr. Jovanna Oneill CO2 [Moles/Vol] 28.4 mmol/L Normal 21.0-32.0 [facility] Comment on above: Performed By: #### L ACT #### [facility] [address] [place] [address] Dr. Jovanna Oneill Creatinine [Mass/Vol] 0.72 mg/dL Normal 0.55-1.[address] [facility] Comment on above: Performed By: #### L ACT #### [facility] [address] [place] [address] Dr. Jovanna Oneill EGFR-AF ESTONIAN >60 Normal >=[address] [facility] Comment on above: Performed By: #### L ACT #### [facility] [address] [place] [address] Dr. Jovanna Oneill EGFR-NON AF ESTONIAN >60 Normal >=[address] [facility] Comment on above: Performed By: #### L ACT #### [facility] [address] [place] [address] Dr. Jovanna Oneill Glucose [Mass/Vol] 242 mg/dL Critically high 74-106 [facility] Comment on above: Performed By: #### L ACT #### [facility] [address] [place] [address] Dr. Jovanna Oneill Potassium [Moles/Vol] 2.9 mmol/L Critically low 3.5-5.[address] [facility] Comment on above: Performed By: #### L ACT #### [facility] [address] [address] [address] Jovanna Oneill Sodium [Moles/Vol] 138 mmol/L Normal 136-145 [facility] Comment on above: Performed By: #### L ACT #### [facility] [address] [address] [address] Jovanna Oneill Urea nitrogen [Mass/Vol] 5.0 mg/dL Critically low 7.0-18.[address] [facility] Comment on above: Performed By: #### L ACT #### [facility] [address] [address] [address] Jovanna Oneill Urea nitrogen/Creatinine [Mass ratio] 6.9 mg/mg Normal [facility] Comment on above: Performed By: #### L ACT #### [facility] [address] [place] [address] Dr. Jovanna Oneill TSHon 08-16-2022 TSH 4.977 uIU/mL Critically high 0.358-3.740 [facility] Comment on above: Performed By: #### V ITB12 #### [facility] [address] [place] [address] ABD/PELVIS WO CONon 05-02 CT ABD/PELVIS WO CON EXAMINATION: CT ABD/PELVIS WO CON, 05/02/2022 2:24 AM EDT HISTORY: CALCULUS OF KIDNEY COMPARISON: CT abdomen and pelvis examination dated 05/27/2021. TECHNIQUE: CT scan of the abdomen and pelvis was performed without IV contrast. CT dose reduction technique was used, including Automated Exposure Control. FINDINGS: The visualized portions of the lung bases are clear. Abdomen: Please note that the sensitivity for detection of focal lesions or vascular disease is markedly reduced without intravenous contrast. There is a small cyst within the right hepatic lobe. Otherwise, the liver and spleen are unremarkable. The patient is status post cholecystectomy. There is biliary prominence which can be seen status post cholecystectomy. There is a 1 mm nonobstructive left renal calculus. No ureteral calculus is seen. Otherwise, the pancreas, adrenal glands, kidneys, and bowel loops are unremarkable. The appendix is not definitively seen. There is no mesenteric or retroperitoneal lymphadenopathy. Pelvis: The bladder and rectum are unremarkable. There is no iliac or inguinal lymphadenopathy. The uterus is not seen. There is mild atherosclerotic disease. Bone windows show no aggressive osseous lesions. IMPRESSION: 1. Nonobstructive left renal calculus with no ureteral calculus seen. 2. Status post cholecystectomy, hysterectomy, and possible appendectomy as the appendix is not seen. Electronically authenticated by: Ayaka LEON Date: 2022-05-02 03:06 Normal [facility] DRUG SCREEN RAPID (URINE)on 05-02-2022 AMP Negative Normal NEGATIVE [facility] Comment on above: Performed By: #### L ACT #### [facility] [address] [place] [address] Dr. Jovanna Oneill BAR Negative Normal NEGATIVE [facility] Comment on above: Performed By: #### L ACT #### [facility] [address] [address] [address] Jovanna Oneill BUP Negative Normal NEGATIVE [facility] Comment on above: Performed By: #### L ACT #### [facility] [address] [address] [address] Jovanna Oneill BZO Negative Normal NEGATIVE [facility] Comment on above: Performed By: #### L ACT #### [facility] [address] [place] [address] Dr. Jovanna Oneill CARA Negative Normal NEGATIVE [facility] Comment on above: Performed By: #### L ACT #### [facility] [address] [place] [address] Dr. Jovanna Oneill CUT-OFFS SEE BELOW Normal [facility] Comment on above: Result Comment: AMP (Amphetamine): 500ng/mL, BAR (Barbituates): 200 ng/mL, BZO (Benzodiazepines): 150 ng/mL, BUP (Buprenorphine): 10 ng/mL, CARA (Cocaine): 150 ng/mL, mAMP (Methamphetamine): 500 ng/mL, MTD (Methadone): 200 ng/mL, OPI (Opiates): 100 ng/mL, OXY (Oxycodone): 100 ng/mL, PCP (Phencyclidine): 25 ng/mL, PPX (Propoxyphene): 300 ng/mL, THC (Cannabinoids): 50 ng/mL, TCA (Trycyclic Antidepressants): 300 ng/mL Performed By: #### L ACT #### [facility] [address] [place] [address] Dr. Jovanna Oneill DRUG CUT HEADER DRUG CLASS TEST SYSTEM CUT-OFF CONCENTRATIONS ARE FOLLOWS: Normal [facility] Comment on above: Performed By: #### L ACT #### [facility] [address] [place] [address] Dr. Jovanna Oneill mAMP Negative Normal NEGATIVE [facility] Comment on above: Performed By: #### L ACT #### [facility] [address] [place] [address] Dr. Jovanna Oneill MTD Negative Normal NEGATIVE [facility] Comment on above: Performed By: #### L ACT #### [facility] [address] [place] [address] Dr. Jovanna Oneill OPI Positive Abnormal NEGATIVE [facility] Comment on above: Performed By: #### L ACT #### [facility] [address] [place] [address] Dr. Jovanna Oneill OXY Negative Normal NEGATIVE [facility] Comment on above: Performed By: #### L ACT #### [facility] [address] [place] [address] Dr. Jovanna Oneill PCP Negative Normal NEGATIVE [facility] [facility] Comment on above: Performed By: #### L ACT #### [facility] [address] [place] [address] Dr. Jovanna Oneill PPX Negative Normal NEGATIVE [facility] Comment on above: Performed By: #### L ACT #### [facility] [address] [place] [address] Dr. Jovanna Oneill TCA Negative Normal NEGATIVE [facility] Comment on above: Performed By: #### L ACT #### [facility] [address] [place] [address] Dr. Jovanna Oneill THC Positive Abnormal NEGATIVE [facility] Comment on above: Performed By: #### L ACT #### [facility] [address] [place] [address] Dr. Jovanna Oneill ER URINE PROFILEon 2 Bilirubin Ql (U) Negative Normal NEGATIVE [facility] Comment on above: Performed By: #### L ACT #### [facility] [address] [place] [address] Dr. Jovanna Oneill Clarity (U) CLEAR Normal CLEAR [facility] Comment on above: Performed By: #### L ACT #### [facility] [address] [place] [address] Dr. Jovanna Oneill Color (U) LT. YELLOW Normal YELLOW [facility] Comment on above: Performed By: #### L ACT #### [facility] [address] [place] [address] Dr. Jovanna SANTIAGO A micrscopic examination will be performed if indicated. Normal [facility] Comment on above: Performed By: #### L ACT #### [facility] [address] [place] [address] Dr. Jovanna Oneill Glucose Ql (U) Negative Normal NEGATIVE [facility] Comment on above: Performed By: #### L ACT #### [facility] [address] [place] [address] Dr. Jovanna Oneill Hemoglobin Ql (U) Negative Normal NEGATIVE [facility] Comment on above: Performed By: #### L ACT #### [facility] [address] [place] [address] Dr. Jovanna Oneill Ketones Ql (U) Negative Normal NEGATIVE [facility] Comment on above: Performed By: #### L ACT #### [facility] [address] [place] [address] Dr. Jovanna Oneill LEUKOCYTES Negative Normal NEGATIVE [facility] Comment on above: Performed By: #### L ACT #### [facility] [address] [place] [address] Dr. Jovanna Oneill Nitrite Ql (U) Negative Normal NEGATIVE [facility] Comment on above: Performed By: #### L ACT #### [facility] [address] [place] [address] Dr. Jovanna Oneill pH (U) 6.0 [pH] Normal 5-9 [facility] Comment on above: Performed By: #### L ACT #### [facility] [address] [place] [address] Dr. Jovanna Oneill SPEC GRAVITY <=1.005 Abnormal 1.005-<=1.025 [facility] Comment on above: Performed By: #### L ACT #### [facility] [address] [place] [address] Dr. Jovanna Oneill UA PROTEIN Negative Normal NEGATIVE/ TRACE [facility] Comment on above: Performed By: #### L ACT #### [facility] [address] [place] [address] Dr. Jovanna Oneill UR MICRO IND NOT INDICATED Normal [facility] Comment on above: Performed By: #### L ACT #### [facility] [address] [place] [address] Dr. Jovanna Oneill Urobilinogen Qn (U) 0.2 {Isabella'U}/dL Normal 0.2 - 1. [address] [facility] Comment on above: Performed By: #### L ACT #### [facility] [address] [place] [address] Dr. Jovanna Oneill CBC AUTO DIFFon 04-20-2022 BASO # 0.0 103/ul Normal 0.0-0.[address] [facility] Comment on above: Performed By: #### L ACT #### [facility] [address] [place] [address] Dr. Jovanna Oniell Basophils/100 WBC (Bld) 0.1 % Critically low 0.2-2.[address] [facility] Comment on above: Performed By: #### L ACT #### [facility] [address] [place] [address] Dr. Jovanna Oneill EO # 0.0 103/ul Normal 0.0-0.[address] [facility] Comment on above: Performed By: #### L ACT #### [facility] [address] [place] [address] Dr. Jovanna Oneill Eosinophils/100 WBC (Bld) 0.1 % Critically low 0.9-7.[address] [facility] Comment on above: Performed By: #### L ACT #### [facility] [address] [place] [address] Dr. Jovanna Oneill Erythrocyte distribution width (RBC) [Ratio] 12.6 % Normal 11.0-15.[address] [facility] Comment on above: Performed By: #### L ACT #### [facility] [address] [place] [address] Dr. Jovanna Oneill Hematocrit (Bld) [Volume fraction] 38.8 % Normal 36.0-48.[address] [facility] Comment on above: Performed By: #### L ACT #### [facility] [address] [place] [address] Dr. Jovanna Oneill Hemoglobin (Bld) [Mass/Vol] 12.6 g/dL Normal 12.0-16.[address] [facility] Comment on above: Performed By: #### L ACT #### [facility] [address] [place] [address] Dr. Jovanna Oneill IG # 0.13 10e3/ul Critically high 0.00-0.03 [facility] Comment on above: Performed By: #### L ACT #### [facility] [address] [place] [address] Dr. Jovanna Oneill IG % 1.0 % Critically high 0.0-0.5 [facility] Comment on above: Performed By: #### L ACT #### [facility] [address] [place] [address] Dr. Jovanna Oneill LYMPH # 1.1 103/ul Critically low 1.2-3.8 [facility] Comment on above: Performed By: #### L ACT #### [facility] [address] [place] [address] Dr. Jovanna Oneill Lymphocytes/100 WBC (Bld) 8.3 % Critically low 20.5-60.[address] [facility] Comment on above: Performed By: #### L ACT #### [facility] [address] [place] [address] Dr. Jovanna Oneill MANUAL DIFF REQ NO Normal [facility] Comment on above: Performed By: #### L ACT #### [facility] [address] [address] [address] Jovanna Oneill MCH (RBC) [Entitic mass] 31.0 pg Normal 26.7-34.[address] [facility] Comment on above: Performed By: #### L ACT #### [facility] [address] [address] [address] Jovanna Oneill MCHC (RBC) [Mass/Vol] 32.5 g/dL Normal 29.9-35.[address] [facility] Comment on above: Performed By: #### L ACT #### [facility] [address] [place] [address] Dr. Jovanna Oneill MCV (RBC) [Entitic vol] 95.3 fL Normal 81.0-99.[address] [facility] Comment on above: Performed By: #### L ACT #### [facility] [address] [place] [address] Dr. Jovanna Oneill MONO # 0.8 103/ul Normal 0.3-0.[address] [facility] Comment on above: Performed By: #### L ACT #### [facility] [address] [place] [address] Dr. Jovanna Oneill Monocytes/100 WBC (Bld) 5.8 % Normal 1.7-12.[address] [facility] Comment on above: Performed By: #### L ACT #### [facility] [address] [place] [address] Dr. Jovanna Oneill NEUT # 11.4 103/ul Critically high 1.4-6.5 [facility] Comment on above: Performed By: #### L ACT #### [facility] [address] [place] [address] Dr. Jovanna Oneill Neutrophils/100 WBC (Bld) 84.7 % Critically high 43.0-75.[address] [facility] Comment on above: Performed By: #### L ACT #### [facility] [address] [place] [address] Dr. Jovanna Oneill Platelet mean volume (Bld) [Entitic vol] 10.1 fL Normal 9.5-13.[address] [facility] Comment on above: Performed By: #### L ACT #### [facility] [address] [address] [address] Jovanna Oneill PLT 205 103/ul Normal 150-[address] [facility] Comment on above: Performed By: #### L ACT #### [facility] [address] [address] [address] Jovanna Oneill RBC 4.07 106/ul Critically low 4.20-5.40 [facility] Comment on above: Performed By: #### L ACT #### [facility] [address] [address] [address] Jovanna Oneill WBC 13.4 103/ul Critically high 4.0-11.0 [facility] Comment on above: Performed By: #### L ACT #### [facility] [address] [address] [address] Jovanna Oneill DRUG SCREEN RAPID (URINE)on 04-20-2022 AMP Negative Normal NEGATIVE [facility] Comment on above: Performed By: #### U MICRO, ERUR, DRUGRPD ####[facility] [address] [address]Dr. Jovanna Oneill BAR Negative Normal NEGATIVE [facility] Comment on above: Performed By: #### U MICRO, ERUR, DRUGRPD ####[facility] [address] [address]Dr. Jovanna Oneill BUP Negative Normal NEGATIVE [facility] Comment on above: Performed By: #### U MICRO, ERUR, DRUGRPD ####[facility] [address] [address]Dr. Jovanna Oneill BZO Negative Normal NEGATIVE [facility] Comment on above: Performed By: #### U MICRO, ERUR, DRUGRPD ####[facility] [address] [address]Dr. Jovanna Oneill CARA Negative Normal NEGATIVE [facility] Comment on above: Performed By: #### U MICRO, ERUR, DRUGRPD ####[facility] [address] [address]Dr. Jovanna Oneill CUT-OFFS SEE BELOW Normal [facility] Comment on above: Result Comment: AMP (Amphetamine): 500ng/mL, BAR (Barbituates): 200 ng/mL, BZO (Benzodiazepines): 150 ng/mL, BUP (Buprenorphine): 10 ng/mL, CARA (Cocaine): 150 ng/mL, mAMP (Methamphetamine): 500 ng/mL, MTD (Methadone): 200 ng/mL, OPI (Opiates): 100 ng/mL, OXY (Oxycodone): 100 ng/mL, PCP (Phencyclidine): 25 ng/mL, PPX (Propoxyphene): 300 ng/mL, THC (Cannabinoids): 50 ng/mL, TCA (Trycyclic Antidepressants): 300 ng/mL Performed By: #### U MICRO, ERUR, DRUGRPD ####[facility] [address] [place], [place] [address]Dr. Jovanna Oneill DRUG CUT HEADER DRUG CLASS TEST SYSTEM CUT-OFF CONCENTRATIONS ARE FOLLOWS: Normal [facility] Comment on above: Performed By: #### U MICRO, ERUR, DRUGRPD ####[facility] [address] [place], [place] [address]Dr. Jovanna Oneill mAMP Negative Normal NEGATIVE [facility] Comment on above: Performed By: #### U MICRO, ERUR, DRUGRPD ####[facility] [address] [place], [place] [address]Dr. Jovanna Oneill MTD Negative Normal NEGATIVE [facility] Comment on above: Performed By: #### U MICRO, ERUR, DRUGRPD ####[facility] [address] [place], [place] [address]Dr. Jovanna Oneill OPI Positive Abnormal NEGATIVE [facility] Comment on above: Performed By: #### U MICRO, ERUR, DRUGRPD ####[facility] [address] [place], [place] [address]Dr. Jovanna Oneill OXY Negative Normal NEGATIVE [facility] Comment on above: Performed By: #### U MICRO, ERUR, DRUGRPD ####[facility] [address] [place], [place] [address]Dr. Jovanna Oneill PCP Negative Normal NEGATIVE [facility] Comment on above: Performed By: #### U MICRO, ERUR, DRUGRPD ####[facility] [address] [address]Dr. Rosaliareagan Oneill PPX Negative Normal NEGATIVE [facility] Comment on above: Performed By: #### U MICRO, ERUR, DRUGRPD ####[facility] [address] [address]Dr. Jovanna Oneill TCA Negative Normal NEGATIVE [facility] Comment on above: Performed By: #### U MICRO, ERUR, DRUGRPD ####[facility] [address] [address]Dr. Jovanna Oneill THC Positive Abnormal NEGATIVE [facility] Comment on above: Performed By: #### U MICRO, ERUR, DRUGRPD ####[facility] [address] [address]Dr. Jovanna Oneill ER URINE PROFILEon 2 Bilirubin Ql (U) Negative Normal NEGATIVE [facility] Comment on above: Performed By: #### U MICRO, ERUR, DRUGRPD ####[facility] [address] [place], [place] [address]Dr. Jovanna Oneill Clarity (U) CLEAR Normal CLEAR [facility] Comment on above: Performed By: #### U MICRO, ERUR, DRUGRPD ####[facility] [address] [place], [place] [address]Dr. Jovanna Oneill Color (U) LT. YELLOW Normal YELLOW [facility] Comment on above: Performed By: #### U MICRO, ERUR, DRUGRPD ####[facility] [address] [place], [place] [address]Dr. Jovanna Oneill ERUAHD A micrscopic examination will be performed if indicated. Normal [facility] Comment on above: Performed By: #### U MICRO, ERUR, DRUGRPD ####[facility] [address] [address]Dr. Jovanna Oneill Glucose Ql (U) >1000 Abnormal NEGATIVE [facility] Comment on above: Performed By: #### U MICRO, ERUR, DRUGRPD ####[facility] [address] [address]Dr. Jovanna Oneill Hemoglobin Ql (U) Negative Normal NEGATIVE [facility] Comment on above: Performed By: #### U MICRO, ERUR, DRUGRPD ####[facility] [address] [address]Dr. Jovanna Oneill Ketones Ql (U) Negative Normal NEGATIVE [facility] Comment on above: Performed By: #### U MICRO, ERUR, DRUGRPD ####[facility] [address] [place], [place] [address]Dr. Jovanna Oneill LEUKOCYTES Negative Normal NEGATIVE [facility] Comment on above: Performed By: #### U MICRO, ERUR, DRUGRPD ####[facility] [address] [place], [place] [address]Dr. Rosaliareagan Oneill Nitrite Ql (U) Negative Normal NEGATIVE [facility] Comment on above: Performed By: #### U MICRO, ERUR, DRUGRPD ####[facility] [address] [place], [place] [address]Dr. Jovanna Oneill pH (U) 6.5 [pH] Normal 5-[address] [facility] Comment on above: Performed By: #### U MICRO, ERUR, DRUGRPD ####[facility] [address] [place], [place] [address]Dr. Jovanna Oneill Protein (U) [Mass/Vol] 30 mg/dL Abnormal NEGATIVE/ TRACE [facility] Comment on above: Performed By: #### U MICRO, ERUR, DRUGRPD ####[facility] [address] [place], [place] [address]Dr. Rosaliareagan Oneill SPEC GRAVITY 1.015 Normal 1.005-<=1.[address] [facility] Comment on above: Performed By: #### U MICRO, ERUR, DRUGRPD ####[facility] [address] [address]Dr. Jovanna Oneill UR MICRO IND INDICATED Normal [facility] Comment on above: Performed By: #### U MICRO, ERUR, DRUGRPD ####[facility] [address] [address]DrJhony Oneill Urobilinogen Qn (U) 1.0 {Isabella'U}/dL Normal 0.2 - 1. [address] [facility] Comment on above: Performed By: #### U MICRO, ERUR, DRUGRPD ####[facility] [address] [id number]. Jovanna Oneill LACTATE/LACTIC ACIDon 2021 Lactate [Moles/Vol] 1.7 mmol/L Normal 0.4-1.9 [facility] Comment on above: Performed By: #### L ACT #### [facility] [address] [place] [address] Dr. Jovanna Oneill PROF 14(COMP METB)on 022 Albumin [Mass/Vol] 3.4 g/dL Normal 3.4-5.0 [facility] Comment on above: Performed By: #### V ITB12 #### [facility] [address] [place] [address] Dr. Jovanna Oneill Albumin/Globulin [Mass ratio] 1.1 {ratio} Normal [facility] Comment on above: Performed By: #### V ITB12 #### [facility] [address] [place] [address] Dr. Jovanna Oneill ALP [Catalytic activity/Vol] 99 U/L Normal 46-[address] [facility] Comment on above: Performed By: #### V ITB12 #### [facility] [address] [place] [address] Dr. Jovanna Oneill ALT [Catalytic activity/Vol] 32 U/L Normal 14-[address] [facility] Comment on above: Performed By: #### V ITB12 #### [facility] [address] [place] [address] Dr. Jovanna Oneill Anion gap [Moles/Vol] 10.0 mmol/L Normal [facility] Comment on above: Performed By: #### V ITB12 #### [facility] [address] [place] [address] Dr. Jovanna Oneill AST [Catalytic activity/Vol] 38 U/L Critically high 15-[address] [facility] Comment on above: Performed By: #### V ITB12 #### [facility] [address] [place] [address] Dr. Jovanna Oneill Bilirubin [Mass/Vol] 0.8 mg/dL Normal 0.2-1.[address] [facility] Comment on above: Performed By: #### V ITB12 #### [facility] [address] [place] [address] Dr. Jovanna Oneill Calcium [Mass/Vol] 8.1 mg/dL Critically low 8.5-10.1 [facility] Comment on above: Performed By: #### V ITB12 #### [facility] [address] [place] [address] Dr. Jovanna Oneill Chloride [Moles/Vol] 102 mmol/L Normal 98-[address] [facility] Comment on above: Performed By: #### V ITB12 #### [facility] [address] [place] [address] Dr. Jovanna Oneill CO2 [Moles/Vol] 31.1 mmol/L Normal 21.0-32.0 [facility] Comment on above: Performed By: #### V ITB12 #### [facility] [address] [place] [address] Dr. Jovanna Oneill Creatinine [Mass/Vol] 0.78 mg/dL Normal 0.55-1.[address] [facility] Comment on above: Performed By: #### V ITB12 #### [facility] [address] [place] [address] Dr. Jovanna Oneill EGFR-AF ESTONIAN >60 Normal >=[address] [facility] Comment on above: Performed By: #### V ITB12 #### [facility] [address] [place] [address] Dr. Jovanna Oneill EGFR-NON AF ESTONIAN >60 Normal >=[address] [facility] Comment on above: Performed By: #### V ITB12 #### [facility] [address] [place] [address] Dr. Jovanna Oenill Globulin (S) [Mass/Vol] 3.2 g/dL Normal [facility] Comment on above: Performed By: #### V ITB12 #### [facility] [address] [address] [address] Jovanna Oneill Glucose [Mass/Vol] 251 mg/dL Critically high 74-106 [facility] Comment on above: Performed By: #### V ITB12 #### [facility] [address] [address] [address] Jovanna Oneill Potassium [Moles/Vol] 3.1 mmol/L Critically low 3.5-5.[address] [facility] Comment on above: Performed By: #### V ITB12 #### [facility] [address] [place] [address] Dr. Jovanna Oneill Protein [Mass/Vol] 6.6 g/dL Normal 6.4-8.2 [facility] Comment on above: Performed By: #### V ITB12 #### [facility] [address] [place] [address] Dr. Jovanna Oneill Sodium [Moles/Vol] 140 mmol/L Normal 136-145 [facility] Comment on above: Performed By: #### V ITB12 #### [facility] [address] [place] [address] Dr. Jovanna Oneill Urea nitrogen [Mass/Vol] 8.0 mg/dL Normal 7.0-18.[address] [facility] Comment on above: Performed By: #### V ITB12 #### [facility] [address] [place] [address] Dr. Jovanna Oneill Urea nitrogen/Creatinine [Mass ratio] 10.3 mg/mg Normal [facility] Comment on above: Performed By: #### V ITB12 #### [facility] [address] [place] [address] Dr. Jovanna Oneill TROPONIN, HIGH SENSITIVITYon 04-20-2022 HSTROP 13.8 pg/mL Normal 4.0-51.3 [facility] Comment on above: Result Comment: CUT- OFF POINTS HAVE BEEN ESTABLISHED BASED ON THE FOURTH UNIVERSAL DEFINITIONS OF MYOCARDIAL INFARCTION. THE UPPER REFERENCE LIMIT (URL) OF TROPONIN, DEFINED THE 99TH PERCENTILE OF cTnI DISTRIBUTION IN A REFERENCE POPULATION, HAS BEEN CONFIRMED THE DECISION THRESHOLD FOR RI DIAGNOSIS. Performed By: #### V ITB12 #### [facility] [id number] Jovanna Oneill URINE MICROSCOPIC ONLYon BACTERIA TRACE Abnormal NONE SEEN [facility] Comment on above: Performed By: #### U MICRO, ERUR, DRUGRPD ####[facility] [address] [address]Dr. Jovanna Oneill Bacteria identified Cx Nom (U) NOT INDICATED Normal [facility] Comment on above: Performed By: #### U MICRO, ERUR, DRUGRPD ####[facility] [address] [address]Dr. Jovanna Oneill CAST SEEN Abnormal NONE SEEN [facility] Comment on above: Performed By: #### U MICRO, ERUR, DRUGRPD ####[facility] [address] [address]Dr. Jovanna Oneill Crystals LM Nom (Urine sed) NONE SEEN Normal NONE SEEN [facility] Comment on above: Performed By: #### U MICRO, ERUR, DRUGRPD ####[facility] [address] [address]Dr. Jovanna Oneill Epithelial cells LM Ql (Urine sed) FEW Abnormal NONE SEEN /RARE [facility] Comment on above: Performed By: #### U MICRO, ERUR, DRUGRPD ####[facility] [address] [address]Dr. Jovanna Oneill HYALINE CAST FEW Normal [facility] Comment on above: Performed By: #### U MICRO, ERUR, DRUGRPD ####[facility] [address] [address]Dr. Jovanna Oneill MUCOUS NONE SEEN Normal NONE SEEN [facility] Comment on above: Performed By: #### U MICRO, ERUR, DRUGRPD ####[facility] [address] [address]Dr. Jovanna Oneill RBC 0-2 Normal 0-2 [facility] Comment on above: Performed By: #### U MICRO, ERUR, DRUGRPD ####[facility] [address] [place], [place] [address]Cn. Jovanna Oneill WBC 0-2 Abnormal NONE SEEN [facility] Comment on above: Performed By: #### U MICRO, ERUR, DRUGRPD ####[facility] [address] [place], [place] [address]Qy. Jovanna Oneill XR CHEST 1 Von 04-20-2022 XR CHEST 1 V EXAM: XR CHEST 1 V HISTORY: CHEST PAIN, UNSPECIFIED COMPARISON: Chest radiograph dated 02/05/2022. TECHNIQUE: One view of the chest was obtained. FINDINGS: There are mild medial right basilar opacities and mild opacities at the left costophrenic angle. There is no significant pneumothorax or pleural effusion. A calcified granuloma is seen in the mid left lung. No acute osseous abnormality is seen. IMPRESSION: 1. Mild right medial basilar opacities and opacities at the left costophrenic angle. These are felt to represent atelectasis though developing infection could be present. Electronically authenticated by: Ayaka LEON Date: 2022-04-20 02:[address] [facility] XR ANKLE RT MIN 3 VIEWSon XR ANKLE RT MIN 3 VIEWS EXAM: XR ANKLE RT MIN 3 VIEWS INDICATION: Right ankle pain after strenuous activity. No known injury. COMPARISON: None. TECHNIQUE: Right ankle, 3 views FINDINGS: Lateral ankle soft tissue swelling. No acute right ankle fracture or dislocation. The ankle mortise is intact. Small plantar calcaneal spur. IMPRESSION: Lateral ankle soft tissue swelling without acute osseous abnormality. Electronically authenticated by: KOBE HICKEY Date: 2022-03-26 09:[address] [facility] Encounters Encounter Date Encounter Type Care Provider Facility Start: 03-23-2023 End: 03-23-2023 ambulatory ABDULKADIR Booker Facility:[facility] Start: 03-05-2023 End: 03-06-2023 [facility]ulatory [facility] Facility[facility] Start: 02-23-2023 End: 02-23-2023 [facility]ulatory [facility] Start: 02-20-2023 End: 02-21-2023 ambulatory [facility] Facility:[facility] Start: 01-29-2023 End: 01-30-2023 ambulatory NARENDRANATH LAKSHMIPATHY . Facility:[facility] Start: 01-12-2023 End: 01-13-2023 ambulatory [facility] Facility:[facility] Start: 01-04-2023 ambulatory NARENDRANATH LAKSHMIPATHY . Facility:[facility] Start: 11-15-2022 End: 11-15-2022 ambulatory [facility] Facility:[facility] Start: 11-01-2022 ambulatory [facility] Facility:[facility] Start: 10-08-2022 End: 10-08-2022 ambulatory [facility] Facility:[facility] Start: 10-06-2022 ambulatory Woo FALCON Facility :[facility] Start: 10-03-2022 End: 10-04-2022 ambulatory [facility] Facility:[facility] Start: 09-14-2022 Encounter for genera l adult medical examination without abnormal findings [facility] Start: 09-12-2022 End: 09-13-2022 ambulatory [facility] Facility:[facility] Start: 09-12-2022 End: 09-13-2022 Encounter for general adult medical examination without abnormal findings [facility] Facility:[facility] Start: 08-29-2022 End: 08-30-2022 ambulatory [facility] Facility:[facility] Start: 08-24-2022 End: 08-24-2022 ambulatory [facility] Facility:[facility] Start: 08-16-2022 End: 08-17-2022 ambulatory [facility] Facility:[facility] Start: 08-16-2022 End: 08-17-2022 ambulatory CAROL ANN ALIA Facility:[facility] Start: 06-22-2022 End: 06-22-2022 ambulatory [facility] Facility:[facility] Start: 05-02-2022 End: 05-02-2022 ambulatory [facility] Facility:[facility] Start: 04-20-2022 End: 04-20-2022 ambulatory CAROL ANN ALIA Facility:[facility] Start: 03-26-2022 End: 03-26-2022 ambulatory DARRIN ANA . Facility: Payers Date Payer Category Payer [facility] [id number] 2.16.8 [id number] 1973 Unknown [id number] 2.16.8 [id number] 1973 Unknown [id number] 2.16.84 0.1.178694.3.579.2.593 1973 Unknown [id number] 2.16.84 0.1.667822.3.579.2.593 1973 Unknown [id number] 2.16.84 0.1.356470.3.579.2.593 1973 Unknown [id number] 2.16.84 0.1.342741.3.579.2.593 1973 Unknown [id number] 2.16.84 0.1.482850.3.579.2.593 1973 Unknown [id number] 2.16.84 0.1.531076.3.579.2.593 1973 Unknown [id number] 2.16.84 0.1.040241.3.579.2.593 1973 Unknown [id number] 2.16.84 0.1.104714.3.579.2.593 1973 Unknown [id number] 2.16.84 0.1.031987.3.579.2.593 1973 Unknown [id number] 2.16.84 0.1.546371.3.579.2.593 1973 Unknown [id number] 2.16.84 0.1.873750.3.579.2.593 1973 Unknown [id number] 2.16.84 0.1.035590.3.579.2.593 1973 Unknown [id number] 2.16.84 0.1.626034.3.579.2.593 1973 Unknown [id number] 2.16.84 0.1.593764.3.579.2.593 1973 Unknown [id number] 2.16.84 0.1.357741.3.579.2.593 1973 Unknown [id number] 2.16.84 0.1.613968.3.579.2.593 1973 Unknown [id number] 2.16.84 0.1.957815.3.579.2.593 1973 Unknown [id number] 2.16.84 0.1.682547.3.579.2.593 1973 Unknown [id number] 2.16.84 0.1.077184.3.579.2.593 1973 Unknown [id number] 2.16.84 0.1.924944.3.579.2.593 1973 Unknown [id number] 2.16.84 0.1.344817.3.579.2.593 1973 Unknown [id number] 2.16.84 0.1.366318.3.579.2.593 1959 Self-pay [id number] 1959 Unknown [id number] 1959 Unknown [id number] Clinical Note 03-05-2023 Note Date & Type Note Facility 03-05-2023 Note PROCEDURE: XR HAND R T MIN 3V HISTORY: Pain in right hand for one week; attention base of thumb; no known injury COMPARISON: XR hand right 01/13/2022 FINDINGS: BONES:Mild degenerative changes of the interphalangeal joints, predominantly involving the first digit and the distal interphalangeal joint of the second digit. No fracture, dislocation, bone lesion. SOFT TISSUES:No visible soft tissue swelling. EFFUSION:None visible. OTHER: Negative. IMPRESSION: 1. Mild, early degenerative joint disease favoring osteoarthritis. 2. No specific findings at base of thumb to account for patient's symptoms. Electronically authenticated by: FRANCES AGUSTIN Date: 2023-03-05 11:36 [facility] Clinical Note 08-30-2022 Note Date & Type Note Facility 08-30-2022 Note PROCEDURE: XR HUMERU S LT MIN 2V, XR SHOULDER LT 2V or > HISTORY: Pain of left shoulder joint ; acute left shoulder pain radiating into arm COMPARISON: None. FINDINGS: BONES:No fracture, acute abnormality, or significant arthropathy. SOFT TISSUES:No visible soft tissue swelling. EFFUSION:None visible. OTHER: Negative. IMPRESSION: 1. No acute bone abnormality or significant degenerative changes of the left shoulder and humerus. Electronically authenticated by: FRANCES AGUSTIN Date: 2022-08-30 10:20 [facility] Clinical Note 08-30-2022 Note Date & Type Note Facility 08-30-2022 Note PROCEDURE: XR HUMERU S LT MIN 2V, XR SHOULDER LT 2V or > HISTORY: Pain of left shoulder joint ; acute left shoulder pain radiating into arm COMPARISON: None. FINDINGS: BONES:No fracture, acute abnormality, or significant arthropathy. SOFT TISSUES:No visible soft tissue swelling. EFFUSION:None visible. OTHER: Negative. IMPRESSION: 1. No acute bone abnormality or significant degenerative changes of the left shoulder and humerus. Electronically authenticated by: FRANCES AGUSTIN Date: 2022-08-30 10:20 [facility] Clinical Note 06-22-2022 Note Date & Type Note Facility 06-22-2022 Note PROCEDURE: XR WRIST LT MIN 3 V, XR HAND LT MIN 3V COMPARISON: None. HISTORY: Pain FINDINGS: BONES:Persistent flexion of the fingers limits evaluation. No acute fracture or dislocation. Mild degenerative changes with joint space narrowing most significant along the medial carpus. SOFT TISSUES:Negative. No visible soft tissue swelling. EFFUSION:None visible. OTHER: A ring obscures the fourth finger IMPRESSION: Mild degenerative changes with no acute fracture of the wrist or hand Electronically authenticated by: RJ YANEZ Date: 2022-06-22 07:[address] [facility] Clinical Note 06-22-2022 Note Date & Type Note Facility 06-22-2022 Note PROCEDURE: XR WRIST LT MIN 3 V, XR HAND LT MIN 3V COMPARISON: None. HISTORY: Pain FINDINGS: BONES:Persistent flexion of the fingers limits evaluation. No acute fracture or dislocation. Mild degenerative changes with joint space narrowing most significant along the medial carpus. SOFT TISSUES:Negative. No visible soft tissue swelling. EFFUSION:None visible. OTHER: A ring obscures the fourth finger IMPRESSION: Mild degenerative changes with no acute fracture of the wrist or hand Electronically authenticated by: RJ YANEZ Date: 2022-06-22 07:13 [facility] Summary Purpose Family History No Family History Records FoundNo Family History Records Found Advance Directives No Advanced Directives Records FoundNo Advanced Directives Records Found Additional Source Comments INFORMATION SOURCE (unrecogn ized section and content) DATE CREATED AUTHOR 10/24/2022 Soham Syed [facility] DATE CREATED AUTHOR AUTHOR'S EMILY ATION 03/24/2023 [facility] FOR RECORDS PERTAINING TO PATIENTS WHO ARE OR HAVE BEEN ENROLLED IN A CHEMICAL DEPENDENCY/SUBSTANCEABUSE PROGRAM, SOME INFORMATION MAY BE OMITTED. This clinical summary was aggregated from multiple sources. Caution should be exercised in using it in the provision of clinical care. This summary normalizes information from multiple sources, and as a consequence, information in this document may materially change the coding, format and clinical context of patient data. In addition, data may be omitted in some cases. CLINICAL DECISIONS SHOULD BE BASED ON THE PRIMARY CLINICAL RECORDS. [facility] [employer] [facility]. provides no warranty or guarantee of the accuracy or completeness of information in this document.
[2023-12-09] MEDS: ORPHENADRINE 60 MG/ 2 ML VIAL IM (13:42)
[2023-12-09] MEDS: KETOROLAC TROMETHAMINE 60 MG/2 ML VIAL IM (13:42)
== END 2023-12-09 13:52 | disposition home or self-care (01) ==
LOC: ER 13:34
PROVIDERS: Emergency Provider Emergency Medicine
DX: G89.29 Other chronic pain (principal); M50.30 Other cervical disc degeneration, unspecified cervical region; F41.9 Anxiety disorder, unspecified; F32.A Depression, unspecified; I10 Essential (primary) hypertension; M81.0 Age-related osteoporosis without current pathological fracture; F17.210 Nicotine dependence, cigarettes, uncomplicated
CPT/HCPCS: 99284; J1885; J2360

== ENCOUNTER 2024-04-25 19:11 | Emergency (ER) | payer OTHER, SELFPAY ==
[2024-04-25 19:15] VITALS: BP 150/99; PULSE 76; TEMP 36.8; O2SAT 98; BMI 22.5
--- NOTE | 2024-04-25 19:26 | PC.NURSE ---
pt stated MRI in 2021 showed bulging disc and compressed nerve
--- OUTSIDE RECORDS SUMMARY | 2024-04-25 19:26 | XMS_ITS | CCD ---
Author Organization [facility] Care Team Providers Care Medical Lab Specialist Name Role Phone Woo FALCON Attending Unavailable SHAMMO, TATUM Referring Unavailable SHAMMO, TATUM Referring Unavailable NILWoo Newman Attending Unavailable LAKSHMIPATHY ., NARENDRANATH Admitting Birdie vailable LAKSHMIPATHY ., NARENDLILIAN Attending Birdie vailable SHAMMO, TATUM Primary Care Unavailable TAMLYN ., ABDULKADIR Admitting Unavailable TAMLYN ., ABDULKADIR Attending Unavailable SHAMMO, TATUM Primary Care Unavailable TAMLYN ., ABDULKADIR Consulting Unavailable KOMAROSALINDA Consulting Unavailable SHAMMO, TATUM Primary Care Unavailable PAY ., DR RUTH Admitting Unavailable PAY ., DR RUTH Attending Unavailable PAY ., DR RUTH Consulting Unavailable RASTEGAR, ANGY Consulting Unavailable SHAMMO, TATUM Primary Care Unavailable REINECK, DR PERI Vazquez Admitting Unavailabl e REINECK, DR PERI Vazquez Attending Unavailabl e REINECK, DR PERI Vazquez Consulting Unavailabl e WILFREDO, MAN Consulting Unavailable SHAMMO, TATUM Primary Care Unavailable SAI, VAUGHN Admitting Unavailable SAI, VAUGHN Attending Unavailable SAI, VAUGHN Consulting Unavailable SHAMMO, TATUM Admitting Unavailable SHAMMO, TATUM Attending Unavailable SHAMMO, TATUM Primary Care Unavailable VAMSI, DR FRANCES Bryan Consulting Unavailable SHAMMO, TATUM [...] Attending Unavailable ANA ., DARRIN Admitting Unavailable [facility] Primary Care Unavailable KOBE HICKEY Consulting Unavailable MARKER ., DR MAX Attending Unavailable MARKER ., DR MAX Admitting Unavailable MARKER ., DR MAX Consulting Unavailable [facility] Primary Care Unavailable LEON, JIMMY Consulting Unavailable SHAMMO, TATUM Primary Care Unavailable SAI, VAUGHN Admitting Unavailable SAI, VAUGHN Attending Unavailable SAI, VAUGHN Consulting Unavailable WOO PAIGE Consulting Unavailable SHAMMO, TATUM Consulting Unavailable [facility] Primary Care Unavailable SAI, VAUGHN Admitting Unavailable SAI, VAUGHN Attending Unavailable BEAU, DR RJ Foster Consulting Unavailable HAY ., DR BIRD Consulting Unavailable SAI, VAUGHN Consulting Unavailable ALIA, CAROL ANN Admitting Unavailable ALIA, CAROL ANN Attending Unavailable [facility] Primary Care Unavailable SHAMMO, TATUM Admitting Unavailable SHAMMO, TATUM Attending Unavailable SHAMMO, TATUM Primary Care Unavailable SHAMMO, TATUM Consulting Unavailable [facility] Primary Care Unavailable LUIS EDUARDO, DR LAYA Bryan Admitting Unavailable LUIS EDUARDO, DR LAYA Bryan Attending Unavailable DR LAYA HOFF Consulting Unavailable LEON, JIMMY Consulting Unavailable Allergies Allergy Classification Reported Allergen(s) Allergy Type Date of Onset Reaction(s) Facility (1 source) No Known Medication Allergies; Translations: [No Known Medication Allergies] Propensity to adverse reactions (disorder) [facility] Repository Problems Active Problems Problem Classification Problem [...] 01-15-2023 Chronic Other aftercare (1 source) Other mcc (current) drug therapy; Translations: [OTH ALF CURRENT DRUG THERAPY] Onset: 02-26-2023 Episodic Other connective tissue disease (4 sources) Pain in right hand; Translations: [PAIN IN RIGHT HAND] Onset: 03-05-2023 Episodic Other nervous system disorders (1 source) Other chronic pain; Translations: [OTHER CHRONIC PAIN] Onset: 02-26-2023 Chronic Other nervous system disorders (4 sources) Polyneuropathy, unspecified; Translations: [POLYNEUROPATHY UNSPECIFIED] Onset: 11-15-2022 Chronic Other screening for suspected conditions (not [...] ANGY SMALLS Date: 2023-02-23 13:14 Normal [facility] FREE T4on 02-20-2023 Free T4 [Mass/Vol] 0.65 ng/dL Critically low 0.76-1.46 [facility] Comment on above: Performed By: #### L ACT #### [facility] [address] [place] [address] Dr. Jovanna Oneill TSH W/ REFLEX TO FT4on 02-20 TSH 5.032 uIU/mL Critically high 0.358-3.740 [facility] Comment on above: Performed By: #### L ACT #### [facility] [address] [address] [address] Jovanna Oneill RESPIRATORY PANEL PLUSon Adenovirus Not detected Normal NOT DETECTED [facility] Comment on above: Performed By: #### R SPLUS ####[facility] [address] [address]Dr. Jovanna Oneill B. Parapertusis Not detected Normal NOT DETECTED [facility] Comment on above: Performed By: #### R SPLUS ####[facility] [address] [address]DrJhony Oneill B. Pertussis Not detected Normal NOT DETECTED [facility] Comment on above: Performed By: #### R SPLUS ####[facility] [address] [address]DrJhony Oneill Chlamydia Pneumoniae Not detected Normal NOT DETECTED [facility] Comment on above: Performed By: #### R SPLUS ####[facility] [address] [address]DrJhony Oneill Coronavirus 229E Not detected Normal NOT DETECTED [facility] Comment on above: Performed By: #### R SPLUS ####[facility] [address] [address]Dr. Jovanna Oneill Coronavirus HKU1 Not detected Normal NOT DETECTED [facility] Comment on above: Performed By: #### R SPLUS ####[facility] [address] [address]Dr. Yireagan Oneill Coronavirus NL63 Not detected Normal NOT DETECTED [facility] Comment on above: Performed By: #### R SPLUS ####[facility] [address] [place], [place] [address]Dr. Yilan Oneill Coronavirus OC43 Not detected Normal NOT DETECTED [facility] Comment on above: Performed By: #### R SPLUS ####[facility] [address] [place], [place] [address]Dr. Jovanna Oneill Influenza A H1 Not detected Normal NOT DETECTED [facility] Comment on above: Performed By: #### R SPLUS ####[facility] [address] [place], [place] [address]Dr. Yilan Oneill Influenza A H1 2009 Not detected Normal NOT DETECTED [facility] Comment on above: Performed By: #### R SPLUS ####[facility] [address] [place], [place] [address]Dr. Yilan Oneill Influenza A H3 Not detected Normal NOT DETECTED [facility] Comment on above: Performed By: #### R SPLUS ####[facility] [address] [place], [place] [address]Dr. Yilan Oneill Influenza B Not detected Normal NOT DETECTED [facility] Comment on above: Performed By: #### R SPLUS ####[facility] [address] [place], [place] [address]Dr. Yilan Oneill Metapneumovirus Not detected Normal NOT DETECTED [facility] Comment on above: Performed By: #### R SPLUS ####[facility] [address] [place], [place] [address]Dr. Jovanna Oneill Mycoplas. Pneumoniae Not detected Normal NOT DETECTED [facility] Comment on above: Performed By: #### R SPLUS ####[facility] [address] [address]Dr. Jovanna Oneill Parainfluenza 1 Not detected Normal NOT DETECTED [facility] Comment on above: Performed By: #### R SPLUS ####[facility] [address] [place], [place] [address]Dr. Jovanna Oneill Parainfluenza 2 Not detected Normal NOT DETECTED [facility] Comment on above: Performed By: #### R SPLUS ####[facility] [address] [place], [place] [address]Dr. Jovanna Oneill Parainfluenza 3 Not detected Normal NOT DETECTED [facility] Comment on above: Performed By: #### R SPLUS ####[facility] [address] [place], [place] [address]Dr. Jovanna Oneill Parainfluenza 4 Not detected Normal NOT DETECTED [facility] Comment on above: Performed By: #### R SPLUS ####[facility] [address] [place], [place] [address]Dr. Jovanna Oneill Rhino/Enterovirus Not detected Normal NOT DETECTED [facility] Comment on above: Performed By: #### R SPLUS ####[facility] [address] [place], [place] [address]Dr. Rosaliareagan Oneill RP2 Header 1 RESPIRATORY PANEL: VIRUSES Normal [facility] Comment on above: Performed By: #### R SPLUS ####[facility] [address] [place], [place] [address]Dr. Jovanna Oneill RP2 Header 2 RESPIRATORY PANEL: BACTERIA Normal [facility] Comment on above: Performed By: #### R SPLUS ####[facility] [address] [place], [place] [address]Dr. Jovanna Oneill RSV Not detected Normal NOT DETECTED [facility] Comment on above: Performed By: #### R SPLUS ####[facility] [address] [place], [place] [address]Dr. Jovanna Oneill SARS-CoV-2 (COVID-19) RNA DUC+probe Ql (Unsp spec) Not detected Normal NOT DETECTED [facility] Comment on above: Performed By: #### R SPLUS ####[facility] [address] [place], [place] [address]GeJhony Oneill MG MAMM SCREEN 3D CHELLY CADon 01-12-2023 MG MAMM SCREEN 3D CHELLY CAD Patient: SULY THORNE Exam Date: 01/12/2023 : 1975 Gender:F Ordering : TATUM Jacob ALONZOJAMILAH Admission #: [id number] Family : Order #: [id number] CLICK HERE TO VIEW EXAM RADIOLOGY REPORT [...] cervical cancer at age 40. LOCATION: [facility] BREAST COMPOSITION: Almost entirely fatty. FINDINGS: [...] MD on 01/12/2023 at 12:42 Normal [facility] XR DEXA BONE DENSITYon 01-12 XR [...] RJ YANEZ Date: 2023-01-12 17:10 Normal [facility] GABAPENTIN URINEon 3 Gabapentin, Urine Negative Normal [facility] Comment on above: Performed By: #### G ABAP ####[facility] [address] [address]Dr. Jovanna Oneill DRUG SCREEN RAPID (URINE)on 11-14-2022 AMP Negative Normal NEGATIVE [facility] Comment on above: Performed By: #### V ITB12 #### [facility] [address] [address] [address] Jovanna Oneill BAR Negative Normal NEGATIVE [facility] Comment on above: Performed By: #### V ITB12 #### [facility] [address] [address] [address] Jovanna Oneill BUP Negative Normal NEGATIVE [facility] Comment on above: Performed By: #### V ITB12 #### [facility] [address] [address] [address] Jovanna Oneill BZO Negative Normal NEGATIVE [facility] Comment on above: Performed By: #### V ITB12 #### [facility] [address] [address] [address] Jovanna Oneill CARA Negative Normal NEGATIVE [facility] Comment on above: Performed By: #### V ITB12 #### [facility] [address] [address] [address] Jovanna Oneill CUT-OFFS SEE BELOW Normal [facility] Comment on above: Result Comment: AMP [...] ng/mL Performed By: #### V ITB12 #### [facility] [address] [place] [address] Dr. Jovanna Oneill DRUG CUT HEADER DRUG CLASS TEST SYSTEM CUT-OFF CONCENTRATIONS ARE FOLLOWS: Normal [facility] Comment on above: Performed By: #### V ITB12 #### [facility] [address] [place] [address] Dr. Jovanna Oneill mAMP Negative Normal NEGATIVE [facility] Comment on above: Performed By: #### V ITB12 #### [facility] [address] [place] [address] Dr. Jovanna Oneill MTD Negative Normal NEGATIVE [facility] Comment on above: Performed By: #### V ITB12 #### [facility] [address] [place] [address] Dr. Jovanna Oneill OPI Positive Abnormal NEGATIVE [facility] Comment on above: Performed By: #### V ITB12 #### [facility] [address] [place] [address] Dr. Jovanna Oneill OXY Negative Normal NEGATIVE [facility] Comment on above: Performed By: #### V ITB12 #### [facility] [address] [place] [address] Dr. Jovanna Oneill PCP Negative Normal NEGATIVE [facility] Comment on above: Performed By: #### V ITB12 #### [facility] [address] [place] [address] Dr. Jovanna Oneill PPX Negative Normal NEGATIVE [facility] Comment on above: Performed By: #### V ITB12 #### [facility] [address] [place] [address] Dr. Jovanna Oneill TCA Negative Normal NEGATIVE [facility] Comment on above: Performed By: #### V ITB12 #### [facility] [address] [place] [address] Dr. Jovanna Oneill THC Positive Abnormal NEGATIVE [facility] Comment on above: Performed By: #### V ITB12 #### [facility] [address] [place] [address] Dr. Jovanna Oneill CBC AUTO DIFFon 10-08-2022 BASO # 0.0 103/ul Normal 0.0-0.1 [facility] Comment on above: Performed By: #### C BC #### [facility] [address] [place] [address] Dr. Jovanna Oneill Basophils/100 WBC (Bld) 0.4 % Normal 0.2-2.0 [facility] Comment on above: Performed By: #### C BC #### [facility] [address] [place] [address] Dr. Jovanna Oneill EO # 0.1 103/ul Normal 0.0-0.7 [facility] Comment on above: Performed By: #### C BC #### [facility] [address] [place] [address] Dr. Jovanna Oneill Eosinophils/100 WBC (Bld) 1.3 % Normal 0.9-7.0 [facility] Comment on above: Performed By: #### C BC #### [facility] [address] [place] [address] Dr. Jovanna Oneill Erythrocyte distribution width (RBC) [Ratio] 12.0 % Normal 11.0-15.0 [facility] Comment on above: Performed By: #### C BC #### [facility] [address] [place] [address] Dr. Jovanna Oneill Hematocrit (Bld) [Volume fraction] 37.8 % Normal 36.0-48.0 [facility] Comment on above: Performed By: #### C BC #### [facility] [address] [place] [address] Dr. Jovanna Oneill Hemoglobin (Bld) [Mass/Vol] 12.8 g/dL Normal 12.0-16.0 [facility] Comment on above: Performed By: #### C BC #### [facility] [address] [place] [address] Dr. Jovanna Oneill IG # 0.02 10e3/ul Normal 0.00-0.03 [facility] Comment on above: Performed By: #### C BC #### [facility] [address] [place] [address] Dr. Jovanna Oneill IG % 0.2 % Normal 0.0-0.5 [facility] Comment on above: Performed By: #### C BC #### [facility] [address] [place] [address] Dr. Jovanna Oneill LYMPH # 3.5 103/ul Normal 1.2-3.8 [facility] Comment on above: Performed By: #### C BC #### [facility] [address] [place] [address] Dr. Jovanna Oneill Lymphocytes/100 WBC (Bld) 37.9 % Normal 20.5-60.0 [facility] Comment on above: Performed By: #### C BC #### [facility] [address] [place] [address] Dr. Jovanna Oneill MANUAL DIFF REQ NO Normal [facility] Comment on above: Performed By: #### C BC #### [facility] [address] [place] [address] Dr. Jovanna Oneill MCH (RBC) [Entitic mass] 31.7 pg Normal 26.7-34.0 [facility] Comment on above: Performed By: #### C BC #### [facility] [address] [place] [address] Dr. Jovanna Oneill MCHC (RBC) [Mass/Vol] 33.9 g/dL Normal 29.9-35.2 [facility] Comment on above: Performed By: #### C BC #### [facility] [address] [place] [address] Dr. Jovanna Oneill MCV (RBC) [Entitic vol] 93.6 fL Normal 81.0-99.0 [facility] Comment on above: Performed By: #### C BC #### [facility] [address] [place] [address] Dr. Jovanna Oneill MONO # 0.5 103/ul Normal 0.3-0.8 [facility] Comment on above: Performed By: #### C BC #### [facility] [address] [place] [address] Dr. Jovanna Oneill Monocytes/100 WBC (Bld) 4.8 % Normal 1.7-12.0 [facility] Comment on above: Performed By: #### C BC #### [facility] [address] [address] [address] Jovanna Oneill NEUT # 5.1 103/ul Normal 1.4-6.5 [facility] Comment on above: Performed By: #### C BC #### [facility] [address] [address] [address] Jovanna Oneill Neutrophils/100 WBC (Bld) 55.4 % Normal 43.0-75.0 [facility] Comment on above: Performed By: #### C BC #### [facility] [address] [address] [address] Jovanna Oneill Platelet mean volume (Bld) [Entitic vol] 10.2 fL Normal 9.5-13.5 [facility] Comment on above: Performed By: #### C BC #### [facility] [address] [address] [address] Jovanna Oneill PLT 181 103/ul Normal 150-450 [facility] Comment on above: Performed By: #### C BC #### [facility] [address] [address] [address] Jovanna Oneill RBC 4.04 106/ul Critically low 4.20-5.40 [facility] Comment on above: Performed By: #### C BC #### [facility] [address] [address] [address] Jovanna Oenill WBC 9.3 103/ul Normal 4.0-11.0 [facility] Comment on above: Performed By: #### C BC #### [facility] [address] [address] [address] Jovanna Oneill CRPon 10-08-2022 CRP [Mass/Vol] mg/L Normal <=1.0 [facility] Comment on above: Performed By: #### B MP, CRP ####[facility] [address] [address]Dr. Jovanna Oneill LACTATE/LACTIC ACIDon 2021 Lactate [Moles/Vol] 0.4 mmol/L Normal 0.4-1.9 [facility] Comment on above: Performed By: #### L ACT #### [facility] [address] [address] [address] Jovanna Oneill PROF CHEM 8 (BAS METB)on Anion gap [Moles/Vol] 12.6 mmol/L Normal [facility] Comment on above: Performed By: #### B MP, CRP #### [facility] [address] [place] [address] Dr. Jovanna Oneill Calcium [Mass/Vol] 8.6 mg/dL Normal 8.5-10.1 [facility] Comment on above: Performed By: #### B MP, CRP #### [facility] [address] [place] [address] Dr. Jovanna Oneill Chloride [Moles/Vol] 104 mmol/L Normal 98-107 [facility] Comment on above: Performed By: #### B MP, CRP #### [facility] [address] [place] [address] Dr. Jovanna Oneill CO2 [Moles/Vol] 26.8 mmol/L Normal 21.0-32.[address] [facility] Comment on above: Performed By: #### B MP, CRP #### [facility] [address] [place] [address] Dr. Jovanna Oneill Creatinine [Mass/Vol] 0.52 mg/dL Critically low 0.55-1.02 [facility] Comment on above: Performed By: #### B MP, CRP #### [facility] [address] [place] [address] Dr. Jovanna Oneill EGFR-AF COLOMBIAN >60 Normal >=60 [facility] Comment on above: Performed By: #### B MP, CRP #### [facility] [address] [place] [address] Dr. Jovanna Oneill EGFR-NON AF COLOMBIAN >60 Normal >=60 [facility] Comment on above: Performed By: #### B MP, CRP #### [facility] [address] [place] [address] Dr. Jovanna Oneill Glucose [Mass/Vol] 93 mg/dL Normal 74-106 [facility] Comment on above: Performed By: #### B MP, CRP #### [facility] [address] [address] [address] Jovanna Oneill Potassium [Moles/Vol] 3.4 mmol/L Critically low 3.5-5.1 [facility] Comment on above: Performed By: #### B MP, CRP #### [facility] [address] [address] [address] Jovanna Oneill Sodium [Moles/Vol] 140 mmol/L Normal 136-145 [facility] Comment on above: Performed By: #### B MP, CRP #### [facility] [address] [place] [address] Dr. Jovanna Oneill Urea nitrogen [Mass/Vol] 11.0 mg/dL Normal 7.0-18.0 [facility] Comment on above: Performed By: #### B MP, CRP #### [facility] [address] [place] [address] Dr. Jovanna Oneill Urea nitrogen/Creatinine [Mass ratio] 21.2 mg/mg Normal [facility] Comment on above: Performed By: #### B MP, CRP #### [facility] [address] [place] [address] Dr. Jovanna Oneill SED RATE [facility] 2021 SED RATE 17 mm/hr Normal <=20 [facility] Comment on above: Performed By: #### S EDR ####[facility] [address] [address]Dr. Jovanna Oneill Physician Referralon 022 Physician Referral [id number] .[id number]:127 Normal [facility] Physician Referral [id number] 1 [id number] .00CD:127 Normal [facility] PROF 14(COMP METB)on 022 Albumin [Mass/Vol] 3.4 g/dL Normal 3.4-5.0 [facility] Comment on above: Performed By: #### V ITB12 #### [facility] [address] [address] [address] Jovanna Oneill Albumin/Globulin [Mass ratio] 1.1 {ratio} Normal [facility] Comment on above: Performed By: #### V ITB12 #### [facility] [address] [address] [address] Jovanna Oneill ALP [Catalytic activity/Vol] 88 U/L Normal 46-116 [facility] Comment on above: Performed By: #### V ITB12 #### [facility] [address] [address] [address] Jovanna Oneill ALT [Catalytic activity/Vol] 11 U/L Critically low 14-59 [facility] Comment on above: Performed By: #### V ITB12 #### [facility] [address] [address] [address] Jovanna Oneill Anion gap [Moles/Vol] 8.7 mmol/L Normal [facility] Comment on above: Performed By: #### V ITB12 #### [facility] [address] [address] [address] Jovanna Oneill AST [Catalytic activity/Vol] 13 U/L Critically low 15-37 [facility] Comment on above: Performed By: #### V ITB12 #### [facility] [address] [address] [address] Jovanna Oneill Bilirubin [Mass/Vol] 0.6 mg/dL Normal 0.2-1.0 [facility] Comment on above: Performed By: #### V ITB12 #### [facility] [address] [address] [address] Jovanna Oneill Calcium [Mass/Vol] 8.7 mg/dL Normal 8.5-10.1 [facility] Comment on above: Performed By: #### V ITB12 #### [facility] [address] [address] [address] Jovanna Oneill Chloride [Moles/Vol] 104 mmol/L Normal 98-107 [facility] Comment on above: Performed By: #### V ITB12 #### [facility] [address] [address] [address] Jovanna Oneill CO2 [Moles/Vol] 31.9 mmol/L Normal 21.0-32.0 [facility] Comment on above: Performed By: #### V ITB12 #### [facility] [address] [address] [address] Jovanna Oneill Creatinine [Mass/Vol] 0.65 mg/dL Normal 0.55-1.02 [facility] Comment on above: Performed By: #### V ITB12 #### [facility] [address] [address] [address] Jovanna Oneill EGFR-AF COLOMBIAN >60 Normal >=60 [facility] Comment on above: Performed By: #### V ITB12 #### [facility] [address] [place] [address] Dr. Jovanna Oneill EGFR-NON AF COLOMBIAN >60 Normal >=60 [facility] Comment on above: Performed By: #### V ITB12 #### [facility] [address] [place] [address] Dr. Jovanna Oneill Globulin (S) [Mass/Vol] 3.2 g/dL Normal [facility] Comment on above: Performed By: #### V ITB12 #### [facility] [address] [place] [address] Dr. Jovanna Oneill Glucose [Mass/Vol] 91 mg/dL Normal 74-106 [facility] Comment on above: Performed By: #### V ITB12 #### [facility] [address] [place] [address] Dr. Jovanna Oneill Potassium [Moles/Vol] 3.6 mmol/L Normal 3.5-5.1 [facility] Comment on above: Performed By: #### V ITB12 #### [facility] [address] [place] [address] Dr. Jovanna Oneill Protein [Mass/Vol] 6.6 g/dL Normal 6.4-8.2 [facility] Comment on above: Performed By: #### V ITB12 #### [facility] [address] [address] [address] Jovanna Oneill Sodium [Moles/Vol] 141 mmol/L Normal 136-145 [facility] Comment on above: Performed By: #### V ITB12 #### [facility] [address] [place] [address] Dr. Jovanna Oneill Urea nitrogen [Mass/Vol] 4.0 mg/dL Critically low 7.0-18.0 [facility] Comment on above: Performed By: #### V ITB12 #### [facility] [address] [address] [address] Jovanna Oneill Urea nitrogen/Creatinine [Mass ratio] 6.2 mg/mg Normal [facility] Comment on above: Performed By: #### V ITB12 #### [facility] [address] [place] [address] Dr. Jovanna Oneill HEPATITIS C AB CASCADE TO QU ANT PCR GENOon 09-13-2022 HCV AB <0.1 Normal 0.0-0.9 [facility] Comment on above: Performed By: #### H EPCASC #### [facility] [address] [place] [address] Dr. Jovanna Oneill Interpretation: Comment Normal [facility] Comment on above: Result Comment: Nega tive Not infected with HCV, unless recent infection is suspected or other evidence exists to indicate HCV infection. Performed By: #### H EPCASC #### [facility] [address] [place] [address] Dr. Jovanna Oneill CBC AUTO DIFFon 09-12-2022 BASO # 0.0 103/ul Normal 0.0-0.1 [facility] Comment on above: Performed By: #### C BC #### [facility] [address] [place] [address] Dr. Jovanna Oneill Basophils/100 WBC (Bld) 0.3 % Normal 0.2-2.0 [facility] Comment on above: Performed By: #### C BC #### [facility] [address] [place] [address] Dr. Jovanna Oneill EO # 0.1 103/ul Normal 0.0-0.7 [facility] Comment on above: Performed By: #### C BC #### [facility] [address] [place] [address] Dr. Jovanna Oneill Eosinophils/100 WBC (Bld) 0.7 % Critically low 0.9-7.0 [facility] Comment on above: Performed By: #### C BC #### [facility] [address] [place] [address] Dr. Jovanna Oneill Erythrocyte distribution width (RBC) [Ratio] 12.3 % Normal 11.0-15.0 [facility] Comment on above: Performed By: #### C BC #### [facility] [address] [place] [address] Dr. Jovanna Oneill Hematocrit (Bld) [Volume fraction] 40.2 % Normal 36.0-48.0 [facility] Comment on above: Performed By: #### C BC #### [facility] [address] [place] [address] Dr. Jovanna Oneill Hemoglobin (Bld) [Mass/Vol] 13.4 g/dL Normal 12.0-16.0 [facility] Comment on above: Performed By: #### C BC #### [facility] [address] [place] [address] Dr. Jovanna Oneill IG # 0.02 10e3/ul Normal 0.00-0.03 [facility] Comment on above: Performed By: #### C BC #### [facility] [address] [place] [address] Dr. Jovanna Oneill IG % 0.3 % Normal 0.0-0.5 [facility] Comment on above: Performed By: #### C BC #### [facility] [address] [place] [address] Dr. Jovanna Oneill LYMPH # 2.2 103/ul Normal 1.2-3.8 [facility] Comment on above: Performed By: #### C BC #### [facility] [address] [place] [address] Dr. Jovanna Oneill Lymphocytes/100 WBC (Bld) 31.9 % Normal 20.5-60.0 [facility] Comment on above: Performed By: #### C BC #### [facility] [address] [place] [address] Dr. Jovanna Oneill MANUAL DIFF REQ NO Normal [facility] Comment on above: Performed By: #### C BC #### [facility] [address] [place] [address] Dr. Jovanna Oneill MCH (RBC) [Entitic mass] 31.8 pg Normal 26.7-34.0 [facility] Comment on above: Performed By: #### C BC #### [facility] [address] [place] [address] Dr. Jovanna Oneill MCHC (RBC) [Mass/Vol] 33.3 g/dL Normal 29.9-35.2 [facility] Comment on above: Performed By: #### C BC #### [facility] [address] [place] [address] Dr. Jovanna Oneill MCV (RBC) [Entitic vol] 95.5 fL Normal 81.0-99.0 [facility] Comment on above: Performed By: #### C BC #### [facility] [address] [place] [address] Dr. Jovanna Oneill MONO # 0.3 103/ul Normal 0.3-0.8 [facility] Comment on above: Performed By: #### C BC #### [facility] [address] [place] [address] Dr. Jovanna Oneill Monocytes/100 WBC (Bld) 4.4 % Normal 1.7-12.0 [facility] Comment on above: Performed By: #### C BC #### [facility] [address] [place] [address] Dr. Jovanna Oneill NEUT # 4.4 103/ul Normal 1.4-6.5 [facility] Comment on above: Performed By: #### C BC #### [facility] [address] [place] [address] Dr. Jovanna Oneill Neutrophils/100 WBC (Bld) 62.4 % Normal 43.0-75.0 [facility] Comment on above: Performed By: #### C BC #### [facility] [address] [address] [address] Jovanna Oneill Platelet mean volume (Bld) [Entitic vol] 10.9 fL Normal 9.5-13.5 [facility] Comment on above: Performed By: #### C BC #### [facility] [address] [place] [address] Dr. Jovanna Oneill PLT 179 103/ul Normal 150-450 [facility] Comment on above: Performed By: #### C BC #### [facility] [address] [address] [address] Jovanna Oneill RBC 4.21 106/ul Normal 4.20-5.40 [facility] Comment on above: Performed By: #### C BC #### [facility] [address] [place] [address] Dr. Jovanna Oneill WBC 7.0 103/ul Normal 4.0-11.0 [facility] Comment on above: Performed By: #### C BC #### [facility] [address] [place] [address] Dr. Jovanna Oneill GLYCOHEMOGLOBIN A1Con 2021 ADA RECOMMENDATION SEE BELOW Normal [facility] Comment on above: Result Comment: ADA RECOMMENDED LIMIT 4.0 - 6.0 ADA THERAPEUTIC TARGET < 7.0 ACTION SUGGESTED > 7.0 Performed By: #### L ACT #### [facility] [address] [place] [address] Dr. Jovanna Oneill Glucose [Mass/Vol] 105 mg/dL Normal [facility] Comment on above: Performed By: #### L ACT #### [facility] [address] [place] [address] Dr. Jovanna Oneill HbA1c (Bld) [Mass fraction] 5.3 % Normal 4.5-6.2 [facility] Comment on above: Performed By: #### L ACT #### [facility] [address] [place] [address] Dr. Jovanna Oneill LIPID PROFILEon 09-12-2022 CHOL-HDL RATIO NORM SEE BELOW Normal [facility] Comment on above: Result Comment: 3.3 - 4.4 LOW RISK 4.4 - 7.1 AVERAGE RISK 7.1 - 11.0 MODERATE RISK >11.0 HIGH RISK Performed By: #### C MP, LIPID #### [facility] [address] [address] [address] Jovanna Oneill Cholesterol [Mass/Vol] 135 mg/dL Normal <=200 [facility] Comment on above: Performed By: #### C MP, LIPID #### [facility] [address] [address] [address] Jovanna Oneill Cholesterol in HDL [Mass/Vol] 35 mg/dL Critically low 40-60 [facility] Comment on above: Performed By: #### C MP, LIPID #### [facility] [address] [address] [address] Jovanna Oneill Cholesterol in LDL [Mass/Vol] 84.8 mg/dL Normal [facility] Comment on above: Performed By: #### C MP, LIPID #### [facility] [address] [address] [address] Jovanna Oneill Cholesterol.total/Cho lesterol in HDL [Mass ratio] 3.9 {ratio} Normal [facility] Comment on above: Performed By: #### C MP, LIPID #### [facility] [address] [place] [address] Dr. Jovanna Oneill HDL NORMAL > or = 60 mg/dl - LO W CARDIOVASCULAR RISK <40 mg/dl - HIGH CARDIOVASCULAR RISK Normal [facility] Comment on above: Performed By: #### C MP, LIPID #### [facility] [address] [address] [address] Jovanna Oneill LDL CALC NORMAL SEE BELOW Normal [facility] Comment on above: Result Comment: <100 mg/dl OPTIMAL 100 - 129 mg/dl NEAR OR ABOVE OPTIMAL 130 - 159 mg/dl BORDERLINE HIGH 160 - 189 mg/dl HIGH >190 mg/dl VERY HIGH Performed By: #### C MP, LIPID #### [facility] [address] [address] [address] Jovanna Oneill Triglyceride [Mass/Vol] 76 mg/dL Normal <=150 [facility] Comment on above: Performed By: #### C MP, LIPID #### [facility] [address] [address] [address] Jovanna Oneill VLDL CALC 15.2 mg/dL Normal [facility] Comment on above: Performed By: #### C MP, LIPID #### [facility] [address] [address] [address] Jovanna Oneill PROF 14(COMP METB)on 022 Albumin [Mass/Vol] 3.5 g/dL Normal 3.4-5.0 [facility] Comment on above: Performed By: #### C MP, LIPID #### [facility] [address] [address] [address] Jovanna Oneill Albumin/Globulin [Mass ratio] 1.1 {ratio} Normal [facility] Comment on above: Performed By: #### C MP, LIPID #### [facility] [address] [place] [address] Dr. Jovanna Oneill ALP [Catalytic activity/Vol] 79 U/L Normal 46-116 [facility] Comment on above: Performed By: #### C MP, LIPID #### [facility] [address] [address] [address] Jovanna Oneill ALT [Catalytic activity/Vol] 15 U/L Normal 14-59 [facility] Comment on above: Performed By: #### C MP, LIPID #### [facility] [address] [address] [address] Jovanna Oneill Anion gap [Moles/Vol] 4.9 mmol/L Normal [facility] Comment on above: Performed By: #### C MP, LIPID #### [facility] [address] [address] [address] Jovanna Oneill AST [Catalytic activity/Vol] 17 U/L Normal 15-37 [facility] Comment on above: Performed By: #### C MP, LIPID #### [facility] [address] [address] [address] Jovanna Oneill Bilirubin [Mass/Vol] 0.4 mg/dL Normal 0.2-1.0 [facility] Comment on above: Performed By: #### C MP, LIPID #### [facility] [address] [address] [address] Jovanna Oneill Calcium [Mass/Vol] 8.7 mg/dL Normal 8.5-10.1 [facility] Comment on above: Performed By: #### C MP, LIPID #### [facility] [address] [address] [address] Jovanna Oneill Chloride [Moles/Vol] 103 mmol/L Normal 98-107 [facility] Comment on above: Performed By: #### C MP, LIPID #### [facility] [address] [address] [address] Jovanna Oneill CO2 [Moles/Vol] 35.8 mmol/L Critically high 21.0-32.0 [facility] Comment on above: Performed By: #### C MP, LIPID #### [facility] [address] [address] [address] Jovanna Oneill Creatinine [Mass/Vol] 0.70 mg/dL Normal 0.55-1.02 [facility] Comment on above: Performed By: #### C MP, LIPID #### [facility] [address] [address] [address] Jovanna Oneill EGFR-AF COLOMBIAN >60 Normal >=[address] [facility] Comment on above: Performed By: #### C MP, LIPID #### [facility] [address] [address] [address] Jovanna Oneill EGFR-NON AF COLOMBIAN >60 Normal >=60 [facility] Comment on above: Performed By: #### C MP, LIPID #### [facility] [address] [address] [address] Jovanna Oneill Globulin (S) [Mass/Vol] 3.2 g/dL Normal [facility] Comment on above: Performed By: #### C MP, LIPID #### [facility] [address] [address] [address] Jovanna Oneill Glucose [Mass/Vol] 86 mg/dL Normal 74-106 [facility] Comment on above: Performed By: #### C MP, LIPID #### [facility] [address] [address] [address] Jovanna Oneill Potassium [Moles/Vol] 2.7 mmol/L Critically low 3.5-5.1 [facility] Comment on above: Performed By: #### C MP, LIPID #### [facility] [address] [address] [address] Jovanna Oneill Protein [Mass/Vol] 6.7 g/dL Normal 6.4-8.2 [facility] Comment on above: Performed By: #### C MP, LIPID #### [facility] [address] [address] [address] Jovanna Oneill Sodium [Moles/Vol] 141 mmol/L Normal 136-145 [facility] Comment on above: Performed By: #### C MP, LIPID #### [facility] [address] [address] [address] Jovanna Oneill Urea nitrogen [Mass/Vol] 6.0 mg/dL Critically low 7.0-18.0 [facility] Comment on above: Performed By: #### C MP, LIPID #### [facility] [address] [address] [address] Jovanna Oneill Urea nitrogen/Creatinine [Mass ratio] 8.6 mg/mg Normal [facility] Comment on above: Performed By: #### C MP, LIPID #### [facility] [address] [address] [address] Jovanna Oneill US THYROIDon 09-12-2022 US [...] by: FRANCES AGUSTIN Date: 2022-09-12 11:52 Normal [facility] VITAMIN B12on 09-12-2022 Cobalamin (Vitamin B12) [Mass/Vol] 280.0 pg/mL Normal 193.0-986.0 [facility] Comment on above: Performed By: #### V ITB12 #### [facility] [address] [address] CSPINE WO CONon [...] MAN VILLALOBOS Date: 2022-08-24 18:11 Normal [facility] CT NECK ST W CONon 2 [...] WOO PAIGE Date: 2022-08-16 23:10 Normal [facility] CBC AUTO DIFFon 08-16-2022 BASO # 0.0 103/ul Normal 0.0-0.1 [facility] Comment on above: Performed By: #### C BC ####[facility] [address] [address]Dr. Jovanna Oneill Basophils/100 WBC (Bld) 0.2 % Normal 0.2-2.0 [facility] Comment on above: Performed By: #### C BC ####[facility] [address] [address]Dr. Jovanna Oneill EO # 0.1 103/ul Normal 0.0-0.7 [facility] Comment on above: Performed By: #### C BC ####[facility] [address] [address]Dr. Jovanna Oneill Eosinophils/100 WBC (Bld) 0.7 % Critically low 0.9-7.0 [facility] Comment on above: Performed By: #### C BC ####[facility] [address] [address]Dr. Jovanna Oneill Erythrocyte distribution width (RBC) [Ratio] 12.1 % Normal 11.0-15.0 [facility] Comment on above: Performed By: #### C BC ####[facility] [address] [address]DrJhony Oneill Hematocrit (Bld) [Volume fraction] 38.8 % Normal 36.0-48.0 [facility] Comment on above: Performed By: #### C BC ####[facility] [address] [address]DrJhony Oneill Hemoglobin (Bld) [Mass/Vol] 12.8 g/dL Normal 12.0-16.0 [facility] Comment on above: Performed By: #### C BC ####[facility] [address] [address]DrJhony Oneill IG # 0.06 10e3/ul Critically high 0.00-0.03 [facility] Comment on above: Performed By: #### C BC ####[facility] [address] [address]DrJhony Oneill IG % 0.4 % Normal 0.0-0.5 [facility] Comment on above: Performed By: #### C BC ####[facility] [address] [place], [place] [address]DrJhony Oneill LYMPH # 2.5 103/ul Normal 1.2-3.8 [facility] Comment on above: Performed By: #### C BC ####[facility] [address] [address]DrJhony Oneill Lymphocytes/100 WBC (Bld) 18.1 % Critically low 20.5-60.0 [facility] Comment on above: Performed By: #### C BC ####[facility] [address] [address]DrJhony Oneill MANUAL DIFF REQ NO Normal [facility] Comment on above: Performed By: #### C BC ####[facility] [address] [id number] Oneill MCH (RBC) [Entitic mass] 32.0 pg Normal 26.7-34.0 [facility] Comment on above: Performed By: #### C BC ####[facility] [address] [phone] Oneill MCHC (RBC) [Mass/Vol] 33.0 g/dL Normal 29.9-35.2 [facility] Comment on above: Performed By: #### C BC ####[facility] [address] [address]DrJhony Jovanna Nino MCV (RBC) [Entitic vol] 97.0 fL Normal 81.0-99.0 [facility] Comment on above: Performed By: #### C BC ####[facility] [address] [address]DrJhony Oneill MONO # 0.6 103/ul Normal 0.3-0.8 [facility] Comment on above: Performed By: #### C BC ####[facility] [address] [address]DrJhony Oneill Monocytes/100 WBC (Bld) 4.5 % Normal 1.7-12.0 [facility] Comment on above: Performed By: #### C BC ####[facility] [address] [place], [place] [address]Dr. Jovanna Oneill NEUT # 10.4 103/ul Critically high 1.4-6.5 [facility] Comment on above: Performed By: #### C BC ####[facility] [address] [place], [place] [address]Dr. Jovanna Oneill Neutrophils/100 WBC (Bld) 76.1 % Critically high 43.0-75.0 [facility] Comment on above: Performed By: #### C BC ####[facility] [address] [place], [place] [address]Dr. Jovanna Oneill Platelet mean volume (Bld) [Entitic vol] 10.9 fL Normal 9.5-13.5 [facility] Comment on above: Performed By: #### C BC ####[facility] [address] [place], [place] [address]Dr. Jovanna Oneill PLT 193 103/ul Normal 150-450 [facility] Comment on above: Performed By: #### C BC ####[facility] [address] [phone] Oneill RBC 4.00 106/ul Critically low 4.20-5.40 [facility] Comment on above: Performed By: #### C BC ####[facility] [address] [address]Dr. Jovanna Oneill WBC 13.7 103/ul Critically high 4.0-11.[address] [facility] Comment on above: Performed By: #### C BC ####[facility] [address] [address]Dr. Jovanna Oneill FREE T4on 08-16-2022 Free T4 [Mass/Vol] 0.68 ng/dL Critically low 0.76-1.46 [facility] Comment on above: Performed By: #### L ACT #### [facility] [address] [place] [address] Dr. Jovanna Oneill HS-CRPon 08-16-2022 HS-CRP 1.04 mg/L Normal <=3.00 [facility] Comment on above: Performed By: #### L ACT #### [facility] [address] [place] [address] Dr. Jovanna Oneill PROF 14(COMP METB)on 022 Albumin [Mass/Vol] 3.5 g/dL Normal 3.4-5.0 [facility] Comment on above: Performed By: #### V ITB12 #### [facility] [address] [place] [address] Dr. Jovanna Oneill Albumin/Globulin [Mass ratio] 1.1 {ratio} Normal [facility] Comment on above: Performed By: #### V ITB12 #### [facility] [address] [place] [address] Dr. Jovanna Oneill ALP [Catalytic activity/Vol] 82 U/L Normal 46-116 [facility] Comment on above: Performed By: #### V ITB12 #### [facility] [address] [place] [address] Dr. Jovanna Oneill ALT [Catalytic activity/Vol] 17 U/L Normal 14-59 [facility] Comment on above: Performed By: #### V ITB12 #### [facility] [address] [place], [place] [address] Dr. Jovanna Oneill Anion gap [Moles/Vol] 9.6 mmol/L Normal [facility] Comment on above: Performed By: #### V ITB12 #### [facility] [address] [place] [address] Dr. Jovanna Oneill AST [Catalytic activity/Vol] 17 U/L Normal 15-37 [facility] Comment on above: Performed By: #### V ITB12 #### [facility] [address] [place] [address] Dr. Jovanna Oneill Bilirubin [Mass/Vol] 0.4 mg/dL Normal 0.2-1.0 [facility] Comment on above: Performed By: #### V ITB12 #### [facility] [address] [place] [address] Dr. Jovanna Oneill Calcium [Mass/Vol] 8.7 mg/dL Normal 8.5-10.1 [facility] Comment on above: Performed By: #### V ITB12 #### [facility] [address] [place] [address] Dr. Jovanna Oneill Chloride [Moles/Vol] 105 mmol/L Normal 98-107 [facility] Comment on above: Performed By: #### V ITB12 #### [facility] [address] [place] [address] Dr. Jovanna Oneill CO2 [Moles/Vol] 30.9 mmol/L Normal 21.0-32.0 [facility] Comment on above: Performed By: #### V ITB12 #### [facility] [address] [place] [address] Dr. Jovanna Oneill Creatinine [Mass/Vol] 0.69 mg/dL Normal 0.55-1.02 [facility] Comment on above: Performed By: #### V ITB12 #### [facility] [address] [place] [address] Dr. Jovanna Oneill EGFR-AF COLOMBIAN >60 Normal >=60 [facility] Comment on above: Performed By: #### V ITB12 #### [facility] [address] [place] [address] Dr. Jovanna Oneill EGFR-NON AF COLOMBIAN >60 Normal >=60 [facility] Comment on above: Performed By: #### V ITB12 #### [facility] [address] [place] [address] Dr. Jovanna Oneill Globulin (S) [Mass/Vol] 3.1 g/dL Normal [facility] Comment on above: Performed By: #### V ITB12 #### [facility] [address] [place] [address] Dr. Jovanna Oneill Glucose [Mass/Vol] 84 mg/dL Normal 74-106 [facility] Comment on above: Performed By: #### V ITB12 #### [facility] [address] [place] [address] Dr. Jovanna Oneill Potassium [Moles/Vol] 3.5 mmol/L Normal 3.5-5.1 [facility] Comment on above: Performed By: #### V ITB12 #### [facility] [address] [place] [address] Dr. Jovanna Oneill Protein [Mass/Vol] 6.6 g/dL Normal 6.4-8.2 [facility] Comment on above: Performed By: #### V ITB12 #### [facility] [address] [place] [address] Dr. Jovanna Oneill Sodium [Moles/Vol] 142 mmol/L Normal 136-145 [facility] Comment on above: Performed By: #### V ITB12 #### [facility] [address] [place] [address] Dr. Jovanna Oneill Urea nitrogen [Mass/Vol] 7.0 mg/dL Normal 7.0-18.0 [facility] Comment on above: Performed By: #### V ITB12 #### [facility] [address] [place] [address] Dr. Jovanna Oneill Urea nitrogen/Creatinine [Mass ratio] 10.1 mg/mg Normal [facility] Comment on above: Performed By: #### V ITB12 #### [facility] [address] [place] [address] Dr. Yilan Oneill PROF CHEM 8 (BAS METB)on Anion gap [Moles/Vol] 8.5 mmol/L Normal [facility] Comment on above: Performed By: #### L ACT #### [facility] [address] [place] [address] Dr. Jovanna Oneill Calcium [Mass/Vol] 8.3 mg/dL Critically low 8.5-10.1 [facility] Comment on above: Performed By: #### L ACT #### [facility] [address] [place] [address] Dr. Jovanna Oneill Chloride [Moles/Vol] 105 mmol/L Normal 98-107 [facility] Comment on above: Performed By: #### L ACT #### [facility] [address] [place] [address] Dr. Jovanna Oneill CO2 [Moles/Vol] 28.4 mmol/L Normal 21.0-32.[address] [facility] Comment on above: Performed By: #### L ACT #### [facility] [address] [place] [address] Dr. Jovanna Oneill Creatinine [Mass/Vol] 0.72 mg/dL Normal 0.55-1.02 [facility] Comment on above: Performed By: #### L ACT #### [facility] [address] [place] [address] Dr. Jovanna Oneill EGFR-AF COLOMBIAN >60 Normal >=[address] [facility] Comment on above: Performed By: #### L ACT #### [facility] [address] [address] [address] Jovanna Oneill EGFR-NON AF COLOMBIAN >60 Normal >=60 [facility] Comment on above: Performed By: #### L ACT #### [facility] [address] [place] [address] Dr. Jovanna Oneill Glucose [Mass/Vol] 242 mg/dL Critically high 74-106 [facility] Comment on above: Performed By: #### L ACT #### [facility] [address] [address] [address] Jovanna Oneill Potassium [Moles/Vol] 2.9 mmol/L Critically low 3.5-5.1 [facility] Comment on above: Performed By: #### L ACT #### [facility] [address] [place] [address] Dr. Jovanna Oneill Sodium [Moles/Vol] 138 mmol/L Normal 136-145 [facility] Comment on above: Performed By: #### L ACT #### [facility] [id number] Jovanna Oneill Urea nitrogen [Mass/Vol] 5.0 mg/dL Critically low 7.0-18.0 [facility] Comment on above: Performed By: #### L ACT #### [facility] [address] [place] [address] Dr. Jovanna Oneill Urea nitrogen/Creatinine [Mass ratio] 6.9 mg/mg Normal [facility] Comment on above: Performed By: #### L ACT #### [facility] [address] [place] [address] Dr. Jovanna Oneill TSHon 08-16-2022 TSH 4.977 uIU/mL Critically high 0.358-3.740 [facility] Comment on above: Performed By: #### V ITB12 #### [facility] [address] [place] [address] ABD/PELVIS WO CONon [...] Ayaka LEON Date: 2022-05-02 03:06 Normal [facility] DRUG SCREEN RAPID (URINE)on 05-02-2022 AMP Negative Normal NEGATIVE [facility] Comment on above: Performed By: #### L ACT #### [facility] [address] [place] [address] Dr. Jovanna Oneill BAR Negative Normal NEGATIVE [facility] Comment on above: Performed By: #### L ACT #### [facility] [address] [place] [address] Dr. Jovanna Oneill BUP Negative Normal NEGATIVE [facility] Comment on above: Performed By: #### L ACT #### [facility] [address] [place] [address] Dr. Jovanna Oneill BZO Negative Normal NEGATIVE [facility] Comment on above: Performed By: #### L ACT #### [facility] [address] [place] [address] Dr. Jovanna Oneill CARA Negative Normal NEGATIVE [facility] Comment on above: Performed By: #### L ACT #### [facility] [address] [place] [address] Dr. Jovanna Oneill CUT-OFFS SEE BELOW Normal [facility] Comment on above: Result Comment: AMP [...] ng/mL Performed By: #### L ACT #### [facility] [address] [place] [address] Dr. Jovanna Oneill DRUG CUT HEADER DRUG CLASS TEST SYSTEM CUT-OFF CONCENTRATIONS ARE FOLLOWS: Normal [facility] Comment on above: Performed By: #### L ACT #### [facility] [address] [place] [address] Dr. Jovanna Oneill mAMP Negative Normal NEGATIVE [facility] Comment on above: Performed By: #### L ACT #### [facility] [address] [place] [address] Dr. Jovanna Oneill MTD Negative Normal NEGATIVE [facility] Comment on above: Performed By: #### L ACT #### [facility] [address] [place] [address] Dr. Jovanna Oneill OPI Positive Abnormal NEGATIVE [facility] Comment on above: Performed By: #### L ACT #### [facility] [address] [place] [address] Dr. Jovanna Oneill OXY Negative Normal NEGATIVE [facility] Comment on above: Performed By: #### L ACT #### [facility] [address] [place] [address] Dr. Jovanna Oneill PCP Negative Normal NEGATIVE [facility] Comment on above: Performed By: #### L ACT #### [facility] [address] [place] [address] Dr. Jovanna Oneill PPX Negative Normal NEGATIVE [facility] Comment on above: Performed By: #### L ACT #### [facility] [address] [place] [address] Dr. Jovanna Oneill TCA Negative Normal NEGATIVE [facility] Comment on above: Performed By: #### L ACT #### [facility] [address] [place] [address] Dr. Jovanna Oneill THC Positive Abnormal NEGATIVE [facility] Comment on above: Performed By: #### L ACT #### [facility] [address] [place] [address] Dr. Jovanna Oneill ER URINE PROFILEon 2 Bilirubin Ql (U) Negative Normal NEGATIVE [facility] Comment on above: Performed By: #### L ACT #### [facility] [address] [place] [address] Dr. Jovanna Oneill Clarity (U) CLEAR Normal CLEAR [facility] Comment on above: Performed By: #### L ACT #### [facility] [address] [place] [address] Dr. Jovanna Oneill Color (U) LT. YELLOW Normal YELLOW [facility] Comment on above: Performed By: #### L ACT #### [facility] [address] [place] [address] Dr. Jovanna SANTIAGO A micrscopic examination will be performed if indicated. Normal [facility] Comment on above: Performed By: #### L ACT #### [facility] [address] [place] [address] Dr. Jovanna Oneill Glucose Ql (U) Negative Normal NEGATIVE [facility] Comment on above: Performed By: #### L ACT #### [facility] [address] [place] [address] Dr. Jovanna Oneill Hemoglobin Ql (U) Negative Normal NEGATIVE [facility] Comment on above: Performed By: #### L ACT #### [facility] [address] [place] [address] Dr. Jovanna Oneill Ketones Ql (U) Negative Normal NEGATIVE [facility] Comment on above: Performed By: #### L ACT #### [facility] [address] [place] [address] Dr. Jovanna Oneill LEUKOCYTES Negative Normal NEGATIVE [facility] Comment on above: Performed By: #### L ACT #### [facility] [address] [place] [address] Dr. Jovanna Oneill Nitrite Ql (U) Negative Normal NEGATIVE [facility] Comment on above: Performed By: #### L ACT #### [facility] [address] [place] [address] Dr. Jovanna Oneill pH (U) 6.0 [pH] Normal 5-9 [facility] Comment on above: Performed By: #### L ACT #### [facility] [address] [place] [address] Dr. Jovanna Oneill SPEC GRAVITY <=1.005 Abnormal 1.005-<=1.025 [facility] Comment on above: Performed By: #### L ACT #### [facility] [address] [place] [address] Dr. Jovanna Oneill UA PROTEIN Negative Normal NEGATIVE/ TRACE [facility] Comment on above: Performed By: #### L ACT #### [facility] [address] [place] [address] Dr. Jovanna Oneill UR MICRO IND NOT INDICATED Normal [facility] Comment on above: Performed By: #### L ACT #### [facility] [address] [place] [address] Dr. Jovanna Oneill Urobilinogen Qn (U) 0.2 {Isabella'U}/dL Normal 0.2 - 1. 0 [facility] Comment on above: Performed By: #### L ACT #### [facility] [address] [place] [address] Dr. Jovanna Oneill CBC AUTO DIFFon 04-20-2022 BASO # 0.0 103/ul Normal 0.0-0.1 [facility] Comment on above: Performed By: #### L ACT #### [facility] [address] [place] [address] Dr. Jovanna Oneill Basophils/100 WBC (Bld) 0.1 % Critically low 0.2-2.0 [facility] Comment on above: Performed By: #### L ACT #### [facility] [address] [place] [address] Dr. Jovanna Oneill EO # 0.0 103/ul Normal 0.0-0.7 [facility] Comment on above: Performed By: #### L ACT #### [facility] [address] [place] [address] Dr. Jovanna Oneill Eosinophils/100 WBC (Bld) 0.1 % Critically low 0.9-7.0 [facility] Comment on above: Performed By: #### L ACT #### [facility] [address] [address] [address] Jovanna Oneill Erythrocyte distribution width (RBC) [Ratio] 12.6 % Normal 11.0-15.0 [facility] Comment on above: Performed By: #### L ACT #### [facility] [address] [address] [address] Jovanna Oneill Hematocrit (Bld) [Volume fraction] 38.8 % Normal 36.0-48.0 [facility] Comment on above: Performed By: #### L ACT #### [facility] [address] [address] [address] Jovanna Oneill Hemoglobin (Bld) [Mass/Vol] 12.6 g/dL Normal 12.0-16.0 [facility] Comment on above: Performed By: #### L ACT #### [facility] [address] [place] [address] Dr. Jovanna Oneill IG # 0.13 10e3/ul Critically high 0.00-0.03 [facility] Comment on above: Performed By: #### L ACT #### [facility] [address] [address] [address] Jovanna Oneill IG % 1.0 % Critically high 0.0-0.5 [facility] Comment on above: Performed By: #### L ACT #### [facility] [address] [address] [address] Jovanna Oneill LYMPH # 1.1 103/ul Critically low 1.2-3.8 [facility] Comment on above: Performed By: #### L ACT #### [facility] [address] [address] [address] Jovanna Oneill Lymphocytes/100 WBC (Bld) 8.3 % Critically low 20.5-60.0 [facility] Comment on above: Performed By: #### L ACT #### [facility] [address] [address] [address] Jovanna Oneill MANUAL DIFF REQ NO Normal [facility] Comment on above: Performed By: #### L ACT #### [facility] [address] [address] [address] Jovanna Oneill MCH (RBC) [Entitic mass] 31.0 pg Normal 26.7-34.0 [facility] Comment on above: Performed By: #### L ACT #### [facility] [address] [place] [address] Dr. Jovanna Oneill MCHC (RBC) [Mass/Vol] 32.5 g/dL Normal 29.9-35.2 [facility] Comment on above: Performed By: #### L ACT #### [facility] [address] [place] [address] Dr. Jovanna Oneill MCV (RBC) [Entitic vol] 95.3 fL Normal 81.0-99.0 [facility] Comment on above: Performed By: #### L ACT #### [facility] [address] [place] [address] Dr. Jovanna Oneill MONO # 0.8 103/ul Normal 0.3-0.8 [facility] Comment on above: Performed By: #### L ACT #### [facility] [address] [place] [address] Dr. Jovanna Oneill Monocytes/100 WBC (Bld) 5.8 % Normal 1.7-12.0 [facility] Comment on above: Performed By: #### L ACT #### [facility] [address] [place] [address] Dr. Jovanna Oneill NEUT # 11.4 103/ul Critically high 1.4-6.5 [facility] Comment on above: Performed By: #### L ACT #### [facility] [address] [place] [address] Dr. Jovanna Oneill Neutrophils/100 WBC (Bld) 84.7 % Critically high 43.0-75.0 [facility] Comment on above: Performed By: #### L ACT #### [facility] [address] [place] [address] Dr. Jovanna Oneill Platelet mean volume (Bld) [Entitic vol] 10.1 fL Normal 9.5-13.5 [facility] Comment on above: Performed By: #### L ACT #### [facility] [address] [address] [address] Jovanna Oneill PLT 205 103/ul Normal 150-450 [facility] Comment on above: Performed By: #### L ACT #### [facility] [address] [address] [address] Jovanna Oneill RBC 4.07 106/ul Critically low 4.20-5.40 [facility] Comment on above: Performed By: #### L ACT #### [facility] [address] [address] [address] Jovanna Oneill WBC 13.4 103/ul Critically high 4.0-11.[address] [facility] Comment on above: Performed By: #### L ACT #### [facility] [address] [address] [address] Jovanna Oneill DRUG SCREEN RAPID (URINE)on 04-20-2022 AMP Negative Normal NEGATIVE [facility] Comment on above: Performed By: #### U MICRO, ERUR, DRUGRPD ####[facility] [address] [address]Dr. Jovanna Oneill BAR Negative Normal NEGATIVE [facility] Comment on above: Performed By: #### U MICRO, ERUR, DRUGRPD ####[facility] [address] [address]Dr. Jovanna Oneill BUP Negative Normal NEGATIVE [facility] Comment on above: Performed By: #### U MICRO, ERUR, DRUGRPD ####[facility] [address] [address]Dr. Jovanna Oneill BZO Negative Normal NEGATIVE [facility] Comment on above: Performed By: #### U MICRO, ERUR, DRUGRPD ####[facility] [address] [address]Dr. Jovanna Oneill CARA Negative Normal NEGATIVE [facility] Comment on above: Performed By: #### U MICRO, ERUR, DRUGRPD ####[facility] [address] [address]Dr. Jovanna Oneill CUT-OFFS SEE BELOW Normal [facility] Comment on above: Result Comment: AMP [...] Performed By: #### U MICRO, ERUR, DRUGRPD ####[facility] [address] [place], [place] [address]Dr. [facility] DRUG CUT HEADER DRUG CLASS TEST SYSTEM CUT-OFF CONCENTRATIONS ARE FOLLOWS: Normal [facility] Comment on above: Performed By: #### U MICRO, ERUR, DRUGRPD ####[facility] [address] [place], [place] [address]Dr. [facility] mAMP Negative Normal NEGATIVE [facility] Comment on above: Performed By: #### U MICRO, ERUR, DRUGRPD ####[facility] [address] [place], [place] [address]Dr. reagan [facility] MTD Negative Normal NEGATIVE [facility] Comment on above: Performed By: #### U MICRO, ERUR, DRUGRPD ####[facility] [address] [place], [place] [address]Dr. [facility] OPI Positive Abnormal NEGATIVE [facility] Comment on above: Performed By: #### U MICRO, ERUR, DRUGRPD ####[facility] [address] [place], [place] [address]Dr. [facility] OXY Negative Normal NEGATIVE [facility] Comment on above: Performed By: #### U MICRO, ERUR, DRUGRPD ####[facility] [address] [place], [place] [address]Dr. reagan [facility] PCP Negative Normal NEGATIVE [facility] Comment on above: Performed By: #### U MICRO, ERUR, DRUGRPD ####[facility] [address] [address]Dr. Rosaliareagan Oneill PPX Negative Normal NEGATIVE [facility] Comment on above: Performed By: #### U MICRO, ERUR, DRUGRPD ####[facility] [address] [address]Dr. Jovanna Oneill TCA Negative Normal NEGATIVE [facility] Comment on above: Performed By: #### U MICRO, ERUR, DRUGRPD ####[facility] [address] [address]Dr. Jovanna Oneill THC Positive Abnormal NEGATIVE [facility] Comment on above: Performed By: #### U MICRO, ERUR, DRUGRPD ####[facility] [address] [place], [place] [address]Dr. Jovanna Oneill ER URINE PROFILEon 2 Bilirubin Ql (U) Negative Normal NEGATIVE [facility] Comment on above: Performed By: #### U MICRO, ERUR, DRUGRPD ####[facility] [address] [place], [place] [address]Dr. Jovanna Oneill Clarity (U) CLEAR Normal CLEAR [facility] Comment on above: Performed By: #### U MICRO, ERUR, DRUGRPD ####[facility] [address] [place], [place] [address]Dr. Jovanna Oneill Color (U) LT. YELLOW Normal YELLOW [facility] Comment on above: Performed By: #### U MICRO, ERUR, DRUGRPD ####[facility] [address] [place], [place] [address]Dr. Jovanna Oneill ERUAHD A micrscopic examination will be performed if indicated. Normal [facility] Comment on above: Performed By: #### U MICRO, ERUR, DRUGRPD ####[facility] [address] [place], [place] [address]Dr. Jovanna Oneill Glucose Ql (U) >1000 Abnormal NEGATIVE [facility] Comment on above: Performed By: #### U MICRO, ERUR, DRUGRPD ####[facility] [address] [address]Dr. Jovanna Oneill Hemoglobin Ql (U) Negative Normal NEGATIVE [facility] Comment on above: Performed By: #### U MICRO, ERUR, DRUGRPD ####[facility] [address] [address]Dr. Jovanna Oneill Ketones Ql (U) Negative Normal NEGATIVE [facility] Comment on above: Performed By: #### U MICRO, ERUR, DRUGRPD ####[facility] [address] [address]Dr. Jovanna Oneill LEUKOCYTES Negative Normal NEGATIVE [facility] Comment on above: Performed By: #### U MICRO, ERUR, DRUGRPD ####[facility] [address] [address]Dr. Jovanna Oneill Nitrite Ql (U) Negative Normal NEGATIVE [facility] Comment on above: Performed By: #### U MICRO, ERUR, DRUGRPD ####[facility] [address] [address]Dr. Rosaliareagan Oneill pH (U) 6.5 [pH] Normal 5-9 [facility] Comment on above: Performed By: #### U MICRO, ERUR, DRUGRPD ####[facility] [address] [address]Dr. Jovanna Oneill Protein (U) [Mass/Vol] 30 mg/dL Abnormal NEGATIVE/ TRACE [facility] Comment on above: Performed By: #### U MICRO, ERUR, DRUGRPD ####[facility] [address] [address]Dr. Jovanna Oneill SPEC GRAVITY 1.015 Normal 1.005-<=1.025 [facility] Comment on above: Performed By: #### U MICRO, ERUR, DRUGRPD ####[facility] [address] [address]Dr. Rosaliareagan Oneill UR MICRO IND INDICATED Normal [facility] Comment on above: Performed By: #### U MICRO, ERUR, DRUGRPD ####[facility] [address] [address]Dr. Jovanna Oneill Urobilinogen Qn (U) 1.0 {Isabella'U}/dL Normal 0.2 - 1. 0 [facility] Comment on above: Performed By: #### U MICRO, ERUR, DRUGRPD ####[facility] [address] [place], [place] [address]JiDr. Jovanna Oneill LACTATE/LACTIC ACIDon 2021 Lactate [Moles/Vol] 1.7 mmol/L Normal 0.4-1.9 [facility] Comment on above: Performed By: #### L ACT #### [facility] [address] [address] [address] Jovanna Oneill PROF 14(COMP METB)on 022 Albumin [Mass/Vol] 3.4 g/dL Normal 3.4-5.0 [facility] Comment on above: Performed By: #### V ITB12 #### [facility] [address] [address] [address] Jovanna Oneill Albumin/Globulin [Mass ratio] 1.1 {ratio} Normal [facility] Comment on above: Performed By: #### V ITB12 #### [facility] [address] [address] [address] Jovanna Oneill ALP [Catalytic activity/Vol] 99 U/L Normal 46-116 [facility] Comment on above: Performed By: #### V ITB12 #### [facility] [address] [address] [address] Jovanna Oneill ALT [Catalytic activity/Vol] 32 U/L Normal 14-59 [facility] Comment on above: Performed By: #### V ITB12 #### [facility] [address] [address] [address] Jovanna Oneill Anion gap [Moles/Vol] 10.0 mmol/L Normal [facility] Comment on above: Performed By: #### V ITB12 #### [facility] [address] [address] [address] Jovanna Oneill AST [Catalytic activity/Vol] 38 U/L Critically high 15-37 [facility] Comment on above: Performed By: #### V ITB12 #### [facility] [address] [place] [address] Dr. Jovanna Oneill Bilirubin [Mass/Vol] 0.8 mg/dL Normal 0.2-1.0 [facility] Comment on above: Performed By: #### V ITB12 #### [facility] [address] [place] [address] Dr. Jovanna Oneill Calcium [Mass/Vol] 8.1 mg/dL Critically low 8.5-10.1 [facility] Comment on above: Performed By: #### V ITB12 #### [facility] [address] [place] [address] Dr. Jovanna Oneill Chloride [Moles/Vol] 102 mmol/L Normal 98-107 [facility] Comment on above: Performed By: #### V ITB12 #### [facility] [address] [place] [address] Dr. Jovanna Oneill CO2 [Moles/Vol] 31.1 mmol/L Normal 21.0-32.0 [facility] Comment on above: Performed By: #### V ITB12 #### [facility] [address] [place] [address] Dr. Jovanna Oneill Creatinine [Mass/Vol] 0.78 mg/dL Normal 0.55-1.02 [facility] Comment on above: Performed By: #### V ITB12 #### [facility] [address] [place] [address] Dr. Jovanna Oneill EGFR-AF COLOMBIAN >60 Normal >=60 [facility] Comment on above: Performed By: #### V ITB12 #### [facility] [address] [place] [address] Dr. Jovanna Oneill EGFR-NON AF COLOMBIAN >60 Normal >=60 [facility] Comment on above: Performed By: #### V ITB12 #### [facility] [address] [place] [address] Dr. Jovanna Oneill Globulin (S) [Mass/Vol] 3.2 g/dL Normal [facility] Comment on above: Performed By: #### V ITB12 #### [facility] [address] [address] [address] Jovanna Oneill Glucose [Mass/Vol] 251 mg/dL Critically high 74-[address] [facility] Comment on above: Performed By: #### V ITB12 #### [facility] [address] [place] [address] Dr. Jovanna Oneill Potassium [Moles/Vol] 3.1 mmol/L Critically low 3.5-5.1 [facility] Comment on above: Performed By: #### V ITB12 #### [facility] [address] [place] [address] Dr. Jovanna Oneill Protein [Mass/Vol] 6.6 g/dL Normal 6.4-8.2 [facility] Comment on above: Performed By: #### V ITB12 #### [facility] [address] [place] [address] Dr. Jovanna Oneill Sodium [Moles/Vol] 140 mmol/L Normal 136-145 [facility] Comment on above: Performed By: #### V ITB12 #### [facility] [address] [place] [address] Dr. Jovanna Oneill Urea nitrogen [Mass/Vol] 8.0 mg/dL Normal 7.0-18.0 [facility] Comment on above: Performed By: #### V ITB12 #### [facility] [address] [place] [address] Dr. Jovanna Oneill Urea nitrogen/Creatinine [Mass ratio] 10.3 mg/mg Normal [facility] Comment on above: Performed By: #### V ITB12 #### [facility] [address] [place] [address] Dr. Jovanna Oneill TROPONIN, HIGH SENSITIVITYon 04-20-2022 HSTROP 13.8 pg/mL Normal 4.0-51.3 [facility] Comment on above: Result Comment: CUT- OFF POINTS HAVE BEEN ESTABLISHED BASED ON THE FOURTH UNIVERSAL DEFINITIONS OF MYOCARDIAL INFARCTION. THE UPPER REFERENCE LIMIT (URL) OF TROPONIN, DEFINED THE 99TH PERCENTILE OF cTnI DISTRIBUTION IN A REFERENCE POPULATION, HAS BEEN CONFIRMED THE DECISION THRESHOLD FOR CT DIAGNOSIS. Performed By: #### V ITB12 #### [facility] [address] [address] [address] Jovanna Oneill URINE MICROSCOPIC ONLYon BACTERIA TRACE Abnormal NONE SEEN [facility] Comment on above: Performed By: #### U MICRO, ERUR, DRUGRPD ####[facility] [address] [address]Dr. Jovanna Oneill Bacteria identified Cx Nom (U) NOT INDICATED Normal [facility] Comment on above: Performed By: #### U MICRO, ERUR, DRUGRPD ####[facility] [address] [address]Dr. Jovanna Oneill CAST SEEN Abnormal NONE SEEN [facility] Comment on above: Performed By: #### U MICRO, ERUR, DRUGRPD ####[facility] [address] [address]Dr. Jovanna Oneill Crystals LM Nom (Urine sed) NONE SEEN Normal NONE SEEN [facility] Comment on above: Performed By: #### U MICRO, ERUR, DRUGRPD ####[facility] [address] [address]Dr. Jovanna Oneill Epithelial cells LM Ql (Urine sed) FEW Abnormal NONE SEEN /RARE [facility] Comment on above: Performed By: #### U MICRO, ERUR, DRUGRPD ####[facility] [id number] [place] [id number]. Jovanna Oneill HYALINE CAST FEW Normal [facility] Comment on above: Performed By: #### U MICRO, ERUR, DRUGRPD ####[facility] [id number] [place] [address]Dr. Jovanna Oneill MUCOUS NONE SEEN Normal NONE SEEN [facility] Comment on above: Performed By: #### U MICRO, ERUR, DRUGRPD ####[facility] [id number] [place] [address]Dr. Jovanna Oneill RBC 0-2 Normal 0-2 [facility] Comment on above: Performed By: #### U SCOTT GARCIA DRUGRPD ####[facility] [id number] [place], [place] [address]Av. Jovanna Oneill WBC 0-2 Abnormal NONE SEEN [facility] Comment on above: Performed By: #### U ANDRIY GARCIAR, DRUGRPD ####[facility] [id number] [place], [place] [address]Vy. Jovanna Oneill XR CHEST 1 Von 04-20-2022 [...] by: Ayaka LEON Date: 2022-04-20 02:33 Normal [facility] XR ANKLE RT MIN 3 VIEWSon XR [...] by: KOBE HICKEY Date: 2022-03-26 09:41 Normal [facility] Encounters Encounter Date Encounter Type Care Provider Facility Start: 03-23-2023 End: 03-23-2023 ambulatory ABDULKADIR Booker Facility:[facility] Start: 03-05-2023 End: 03-06-2023 ambulatory TATUM SHAMMO Facility:[facility] Start: 02-23-2023 End: 02-23-2023 ambulatory TATUM SHAMMO Facility:[facility] Start: 02-20-2023 End: 02-21-2023 ambulatory TATUM SHAMMO Facility:[facility] Start: 01-29-2023 End: 01-30-2023 ambulatory NARENDRANATH LAKSHMIPATHY . Facility:[facility] Start: 01-12-2023 End: 01-13-2023 ambulatory TATUM SHAMMO Facility:[facility]1 Start: 01-04-2023 ambulatory NARENDRANATH LAKSHMIPATHY . Facility:[facility] Start: 11-15-2022 End: 11-15-2022 ambulatory TATUM SHAMMO Facility:[facility] Start: 11-01-2022 ambulatory TATUM SHAMMO Facility:[facility] Start: 10-08-2022 End: 10-08-2022 ambulatory TATUM SHAMMO Facility:[facility] Start: 10-06-2022 ambulatory Woo FALCON Facility :[facility] Start: 10-03-2022 End: 10-04-2022 ambulatory TATUM SHAMMO Facility:[facility]1 Start: 09-14-2022 Encounter for genera l adult medical examination without abnormal findings TATUM SHAMMO [facility] Start: 09-12-2022 End: 09-13-2022 ambulatory TATUM SHAMMO Facility:[facility] Start: 09-12-2022 End: 09-13-2022 Encounter for general adult medical examination without abnormal findings TATUM SHAMMO Facility:[facility]1 Start: 08-29-2022 End: 08-30-2022 ambulatory TATUM SHAMMO Facility:[facility] Start: 08-24-2022 End: 08-24-2022 ambulatory TATUM SHAMMO Facility:[facility] Start: 08-16-2022 End: 08-17-2022 ambulatory TATUM SHAMMO Facility:[facility] Start: 08-16-2022 End: 08-17-2022 ambulatory CAROL ANN ALIA Facility:[facility] Start: 06-22-2022 End: 06-22-2022 ambulatory [facility] Facility:[facility] Start: 05-02-2022 End: 05-02-2022 ambulatory [facility] Facility:[facility] Start: 04-20-2022 End: 04-20-2022 ambulatory CAROL ANN ALIA Facility:[facility] Start: 03-26-2022 End: 03-26-2022 ambulatory DARRIN PEREZ . Facility: Payers Date Payer Category Payer Unknown [id number] 2.16.8 [id number] 1975 Unknown [id number] 2.16.8 [id number] 1973 Unknown [id number] 2.16.84 0.1.541293.3.579.2.593 1973 Unknown [id number] 2.16.84 0.1.159216.3.579.2.593 1973 Unknown [id number] 2.16.84 0.1.645423.3.579.2.593 1973 Unknown [id number] 2.16.84 0.1.941336.3.579.2.593 1973 Unknown [id number] 2.16.84 0.1.986332.3.579.2.593 1973 Unknown [id number] 2.16.84 0.1.182877.3.579.2.593 1973 Unknown [id number] 2.16.84 0.1.704498.3.579.2.593 1973 Unknown [id number] 2.16.84 0.1.716003.3.579.2.593 1973 Unknown [id number] 2.16.84 0.1.970576.3.579.2.593 1973 Unknown [id number] 2.16.84 0.1.879035.3.579.2.593 1973 Unknown [id number] 2.16.84 0.1.257290.3.579.2.593 1973 Unknown [id number] 2.16.84 0.1.523237.3.579.2.593 1973 Unknown [id number] 2.16.84 0.1.926420.3.579.2.593 1973 Unknown [id number] 2.16.84 0.1.346799.3.579.2.593 1973 Unknown [id number] 2.16.84 0.1.738569.3.579.2.593 1973 Unknown [id number] 2.16.84 0.1.096293.3.579.2.593 1973 Unknown [id number] 2.16.84 0.1.325592.3.579.2.593 1973 Unknown [id number] 2.16.84 0.1.486780.3.579.2.593 1973 Unknown [id number] 2.16.84 0.1.230269.3.579.2.593 1973 Unknown [id number] 2.16.84 0.1.976836.3.579.2.593 1973 Unknown [id number] 2.16.84 0.1.490453.3.579.2.593 1973 Unknown [id number] 2.16.84 0.1.962334.3.579.2.593 1959 Self-pay [id number] 1961 Unknown [id number] 1961 Unknown [id number] Clinical Note 03-05-2023 Note Date & Type [...] by: FRANCES AGUSTIN Date: 2023-03-05 11:36 [facility] Clinical Note 08-30-2022 Note Date & [...] by: FRANCES AGUSTIN Date: 2022-08-30 10:20 [facility] Clinical Note 08-30-2022 Note Date & [...] by: FRANCES AGUSTIN Date: 2022-08-30 10:20 [facility] Clinical Note 06-22-2022 Note Date & [...] authenticated by: RJ YANEZ Date: 2022-06-22 07:13 [facility] Clinical Note 06-22-2022 Note Date & [...] by: RJ YANEZ Date: 2022-06-22 07:13 [facility] Summary Purpose Family History No Family History Records FoundNo Family History Records Found Advance Directives No Advanced Directives Records FoundNo Advanced Directives Records Found Additional Source Comments INFORMATION SOURCE (unrecogn ized section and content) DATE CREATED AUTHOR 10/24/2022 Soham Syed [facility] DATE CREATED AUTHOR AUTHOR'Misti ARCE 03/24/2023 Alis flynn FOR RECORDS PERTAINING TO PATIENTS WHO ARE [...] BE BASED ON THE PRIMARY CLINICAL RECORDS. [facility] [employer], [facility]. provides no warranty or guarantee of the accuracy or completeness of information in this document.
--- NOTE | 2024-04-25 19:38 | ED.NECK1 ---
HPI HPI - Neck Pain/Injury General Chief Complaint: Neck Pain/Injury Stated Complaint: neck pain, traveling down arm, weakness Time Seen by Provider: 04/25/24 19:16 Source: patient Mode of arrival: Wheelchair Limitations: no limitations History of Present Illness HPI Narrative: Patient is a 48-year-old female with a history of cervical radiculopathy and chronic neck pain who presents to the ER for an increase in pain. She reports pain radiating into the left arm. She had an MRI showing bulging disks And a pinched nerve. She has not seen a primary care provider in over a year. She states she is out Of all of her medications. She is requesting refills of her blood pressure medication and other daily meds. She was seen in this emergency department for neck pain in November and was provided with a list of PCPs to follow-up with, she states she has not seen anyone. She denies any new falls or injuries. No medications taken prior to arrival Related Data Home Medications ?Medication ?Instructions ?Recorded ?Confirmed No Known Home Medications 04/25/24 04/25/24 Previous Rx's ?Medication ?Instructions ?Recorded budesonide-formoterol HFA 80 2 inh inhalation BID #10.2 grams 04/25/24 mcg-4.5 mcg/actuation aerosol inhaler gabapentin 600 mg tablet 600 mg PO TID 7 days #21 tabs 04/25/24 ketorolac 10 mg tablet 10 mg PO TID PRN pain #10 tabs 04/25/24 losartan 100 1 tab PO DAILY 30 days #30 tabs 04/25/24 mg-hydrochlorothiazide 25 mg tablet methocarbamol 750 mg tablet 750 mg PO TID PRN pain #20 tabs 04/25/24 pantoprazole 40 mg tablet,delayed 40 mg PO BID 30 days #60 tabs 04/25/24 release Allergies Allergy/AdvReac Type Severity Reaction Status Date / Time No Known Drug Allergies Allergy Verified 04/25/24 19:20 Opioid HPI Opioid Management Most Recent Opioid Data: Last Pain Scale 9 10/15/23 01:31 Review of Systems ROS Constitutional Denies: fever or chills Ears, nose, mouth, and throat Denies: throat pain or nasal congestion Respiratory Denies: shortness of breath Gastrointestinal Denies: nausea or vomiting Musculoskeletal Reports: back pain and neck pain Integumentary/Breast Denies: rash Hematologic/Lymphatic Denies: easy bruising or easy bleeding [facility] Medical History (Updated 04/25/24 @ 19:33 by SHAYNE Toussaint) Anxiety and depression ?F41.9 - Anxiety disorder, unspecified (ICD-10) ?F32.A - Depression, unspecified (ICD-10) HTN (hypertension) ?I10 - Essential (primary) hypertension (ICD-10) Bulging of cervical intervertebral disc ?M50.30 - Other cervical disc degeneration, unspecified cervical region (ICD-10) Osteoporosis ?M81.0 - Age-related osteoporosis without current pathological fracture (ICD-10) Social History Smoking status: Current every day smoker Exam Narrative Exam Narrative: Gen.: Awake, alert, in no distress Head: Normocephalic, atraumatic ENT: Moist mucous membranes; Diffuse tenderness of the bilateral paraspinal areas of the Posterior neck as well as the Right trapezius area and left shoulder diffusely. No bony point tenderness or posterior midline tenderness noted. 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 with normal biceps tendon strength of flexion in the upper extremities, no focal weakness noted Psych: Normal mood and affect Neuro: No focal neuro deficit Skin: Warm, dry, intact Constitutional Vital Signs, click to edit/add: Last Vital Signs Temp 98.2 F 04/25/24 19:15 Pulse 76 04/25/24 19:15 Resp 18 04/25/24 19:15 BP 150/99 H 04/25/24 19:15 Pulse Ox 98 04/25/24 19:15 O2 Del Method Room Air 04/25/24 19:15 Course Vital Signs Vital signs: Vital Signs Temperature 98.2 F 04/25/24 19:15 Pulse Rate 76 04/25/24 19:15 Respiratory Rate 18 04/25/24 19:15 Blood Pressure 150/99 H 04/25/24 19:15 Pulse Oximetry 98 04/25/24 19:15 Oxygen Delivery Method Room Air 04/25/24 19:15 Temperature 98.2 F 04/25/24 19:15 Pulse Rate 76 04/25/24 19:15 Respiratory Rate 18 04/25/24 19:15 Blood Pressure 150/99 H 04/25/24 19:15 Pulse Oximetry 98 04/25/24 19:15 Oxygen Delivery Method Room Air 04/25/24 19:15 MDM - Neck Pain/Injury MDM Narrative Medical decision making narrative: Patient with no bony point tenderness of the posterior cervical spine. She has had these ongoing issues for over a year, previous MRI.She was referred to primary care providers in the area that are taking new patients and was given a list of these providers with her discharge instructions. She was strongly encouraged to contact her primary care office for regular care as her medications cannot be managed from the emergency department. She was given refills of her COPD inhaler, blood pressure and GI meds. She was also given a short refill of gabapentin as well as Toradol and Robaxin for home for symptoms. Follow-up with PCP and return to the ER if symptoms change or worsen Medical Records Attestation: I reviewed the patient's medical records. Discharge Plan Discharge Stand Alone Forms: Portal Instructions Chief Complaint: Neck Pain/Injury Clinical Impression: Cervical disc disorder with radiculopathy, Chronic neck pain, Medication refill Patient Disposition: Home, Self-Care Time of Disposition Decision: 19:33 Condition: Good Prescriptions / Home Meds: New budesonide-formoterol 80-4.5 mcg/actuation HFA aerosol inhaler 2 inh inhalation BID Qty: 10.2 0RF ketorolac 10 mg tablet 10 mg PO TID PRN (Reason: pain) Qty: 10 0RF methocarbamol 750 mg tablet 750 mg PO TID PRN (Reason: pain) Qty: 20 0RF gabapentin 600 mg tablet 600 mg PO TID 7 Days Qty: 21 0RF losartan-hydrochlorothiazide 100-25 mg tablet 1 tab PO DAILY 30 Days Qty: 30 0RF pantoprazole 40 mg tablet,delayed release (DR/EC) 40 mg PO BID 30 Days Qty: 60 0RF No Action No Known Home Medications Print Language: Citizen Of [place] Instructions: Medicine Refill (ED), Chronic Neck Pain (DC) Referrals: Physician,Non-Staff, MD [Primary Care Provider] - 1 week Discharge Date/Time: 04/25/24 19:58
[2024-04-25] MEDS: ORPHENADRINE 60 MG/ 2 ML VIAL IM (19:51)
[2024-04-25] MEDS: METHYLPREDNISOLONE SOD SUCC PF 125 MG/2 ML VIAL IM (19:51)
== END 2024-04-25 19:58 | disposition home or self-care (01) ==
PROVIDERS: Emergency Provider Internal Medicine
DX: M50.10 Cervical disc disorder with radiculopathy, unspecified cervical region (principal); G89.29 Other chronic pain; Z76.0 Encounter for issue of repeat prescription; F17.200 Nicotine dependence, unspecified, uncomplicated
CPT/HCPCS: 96372; 99284; J2360; J2919

== ENCOUNTER 2024-05-18 23:07 | Emergency (ER) | payer OTHER, SELFPAY ==
[2024-05-18 23:14] VITALS: BP 168/120; PULSE 111; TEMP 37; O2SAT 99; BMI 15.0
--- NOTE | 2024-05-18 23:24 | XR_ITS ---
The [address] [address] Patient Name: SULY THORNE MRN: [id number] date: 1975 Sex: F Assigned Patient Location: ER Current Patient Location: ER Accession/Order Number: [id number] Exam Date: 05/18/2024 23:42 Report Date: 05/19/2024 00:17 At the request of: ANISH ESPANA Procedure: XR hand RT min 3V EXAM: XR hand RT min 3V HISTORY: Attention index finger, smashed in house door COMPARISON: None. TECHNIQUE: 3 views of the right hand were obtained. FINDINGS: There is a mildly displaced fracture through the right second finger distal phalanx without definite intra-articular extension. There are scattered degenerative changes. XR/XR hand RT min 3V IMPRESSION: 1. Right second finger distal phalangeal fracture as described. Electronically authenticated by: Ayaka LEON Date: 05/19/2024 00:17
--- OUTSIDE RECORDS SUMMARY | 2024-05-18 23:27 | XMS_ITS | CCD ---
Author Organization [facility] Care Team Providers Care Software Business Analyst Name Role Phone Woo FALCON Attending Unavailable SHAMMO, TATUM Referring Unavailable SHAMMO, TATUM Referring Unavailable NILWoo Newman Attending Unavailable LAKSHMIPATHY ., NARENDRANATH Admitting Birdie vailable LAKSHMIPATHY ., NARENDRANNAVEED Attending Birdie vailable SHAMMO, TATUM Primary Care [...] Consulting Unavailable SHAMMO, TATUM Admitting Unavailable SHAMMO, ATTUM Attending Unavailable SHAMMO, TATUM Primary Care Unavailable BEAU, DR RJ Foster Consulting Unavailable SHAMMO, TATUM Consulting Unavailable ANA ., DARRIN Consulting Unavailable ANA ., DARRIN Attending Unavailable ANA ., DARRIN Admitting Unavailable [facility] Unavailable KOBE HICKEY Consulting Unavailable MARKER ., DR MAX Attending Unavailable MARKER ., DR MAX Admitting Unavailable MARKER ., DR MAX Consulting Unavailable [facility] Primary Care Unavailable LEON, JIMMY Consulting Unavailable SHAMMO, TATUM Primary Care Unavailable SAI, VAUGHN Admitting Unavailable SAI, VAUGHN Attending Unavailable SAI, VAUGHN Consulting Unavailable WOO PAIGE Consulting Unavailable SHAMMO, TATUM Consulting Unavailable [facility] Primary Care Unavailable SAI, VAUGHN Admitting Unavailable SAI, VAUGHN Attending Unavailable BEAU, DR RJ Foster Consulting Unavailable HAY ., DR BIRD Consulting Unavailable SAI, VAUGHN Consulting Unavailable ALIA, CAROL ANN Admitting Unavailable ALIA, CAROL ANN Attending Unavailable [facility] Primary Care Unavailable SHAMMO, TATUM Admitting Unavailable SHAMMO, TATUM Attending Unavailable SHAMMO, TATUM Primary Care Unavailable SHAMMO, TATUM Consulting Unavailable [facility] Primary Care Unavailable LUIS EDUARDO, DR LAYA Bryan Admitting Unavailable LUIS EDUARDO, DR LAYA Bryan Attending Unavailable DR LAYA HOFF Consulting Unavailable LEON, JIMMY Consulting Unavailable Allergies Allergy Classification Reported Allergen(s) Allergy Type Date of Onset Reaction(s) Facility (1 source) No Known Medication Allergies; Translations: [No Known Medication Allergies] Propensity to adverse reactions (disorder) [facility] Repository Problems Active Problems Problem Classification [...] 01-15-2023 Chronic Other aftercare (1 source) Other usp (current) drug therapy; Translations: [OTH [facility] CURRENT DRUG THERAPY] Onset: 02-26-2023 Episodic Other [...] ANGY SMALLS Date: 2023-02-23 13:14 Normal [facility] FREE T4on 02-20-2023 Free T4 [Mass/Vol] 0.65 ng/dL Critically low 0.76-1.46 Th e [facility] Comment on above: Performed By: #### L ACT #### [facility] [address] [place] [address] Dr. Jovanna Oneill TSH W/ REFLEX TO FT4on 02-20 TSH 5.032 uIU/mL Critically high 0.358-3.740 The [facility] Comment on above: Performed By: #### L ACT #### [facility] [address] [address] [address] Jovanna Oneill RESPIRATORY PANEL PLUSon Adenovirus Not detected Normal NOT DETECTED The [facility] Comment on above: Performed By: #### R SPLUS ####[facility] [address] [address]Dr. Jovanna Oneill B. Parapertusis Not detected Normal NOT DETECTED [facility] Comment on above: Performed By: #### R SPLUS ####[facility] [address] [address]DrJhony Oneill B. Pertussis Not detected Normal NOT DETECTED [facility] Comment on above: Performed By: #### R SPLUS ####[facility] [address] [address]DrJhony Oneill Chlamydia Pneumoniae Not detected Normal NOT DETECTED [facility] Comment on above: Performed By: #### R SPLUS ####[facility] [address] [address]DrJhony Oneill Coronavirus 229E Not detected Normal NOT DETECTED [facility] Comment on above: Performed By: #### R SPLUS ####[facility] [address] [address]Dr. Jovanna Oneill Coronavirus HKU1 Not detected Normal NOT DETECTED [facility] Comment on above: Performed By: #### R SPLUS ####[facility] [address] [address]Dr. Yireagan Oneill Coronavirus NL63 Not detected Normal NOT DETECTED [facility] Comment on above: Performed By: #### R SPLUS ####[facility] [address] [place], [place] [address]Dr. Yilan Oneill Coronavirus OC43 Not detected Normal NOT DETECTED [facility] Comment on above: Performed By: #### R SPLUS ####[facility] Vi[address]zx[address] [place], [place] [address]Dr. Jovanna Oneill Influenza A H1 Not detected Normal NOT DETECTED [facility] Comment on above: Performed By: #### R SPLUS ####[facility] I[address] [place], [place] [address]Dr. Yilan Oneill Influenza A H1 2009 Not detected Normal NOT DETECTED [facility] Comment on above: Performed By: #### R SPLUS ####[facility] [address] [place], [place] [address]Dr. Yilan Oneill Influenza A H3 Not detected Normal NOT DETECTED [facility] Comment on above: Performed By: #### R SPLUS ####[facility] F[address] [place], [place] [address]Dr. Yilan Oneill Influenza B Not detected Normal NOT DETECTED The [facility] Comment on above: Performed By: #### R SPLUS ####[facility] [address] [place], [place] [address]Dr. Yilan Oneill Metapneumovirus Not detected Normal NOT DETECTED [facility] Comment on above: Performed By: #### R SPLUS ####[facility] [address]wh[address] [place], [place] [address]Dr. Jovanna Oneill Mycoplas. Pneumoniae Not detected Normal NOT DETECTED [facility] Comment on above: Performed By: #### R SPLUS ####[facility] [address] [address]Dr. Jovanna Oneill Parainfluenza 1 Not detected Normal NOT DETECTED [facility] Comment on above: Performed By: #### R SPLUS ####[facility] [address] [place], [place] [address]Dr. Jovanna Oneill Parainfluenza 2 Not detected Normal NOT DETECTED [facility] Comment on above: Performed By: #### R SPLUS ####[facility] [address] [place], [place] [address]Dr. Jovanna Oneill Parainfluenza 3 Not detected Normal NOT DETECTED [facility] Comment on above: Performed By: #### R SPLUS ####[facility] [address]ix[address] [place], [place] [address]Dr. Jovanna Oneill Parainfluenza 4 Not detected Normal NOT DETECTED [facility] Comment on above: Performed By: #### R SPLUS ####[facility] R[address] [place], [place] [address]Dr. Jovanna Oneill Rhino/Enterovirus Not detected Normal NOT DETECTED [facility] Comment on above: Performed By: #### R SPLUS ####[facility] Z[address] [place], [place] [address]Dr. Rosaliareagan Oneill RP2 Header 1 RESPIRATORY PANEL: VIRUSES Normal [facility] Comment on above: Performed By: #### R SPLUS ####[facility] [address] [place], [place] [address]Dr. Joavnna Oneill RP2 Header 2 RESPIRATORY PANEL: BACTERIA Normal [facility] Comment on above: Performed By: #### R SPLUS ####[facility] [address] [place], [place] [address]Dr. Jovanna Oneill RSV Not detected Normal NOT DETECTED [facility] Comment on above: Performed By: #### R SPLUS ####[facility] [address] [place], [place] [address]Dr. Jovanna Oneill SARS-CoV-2 (COVID-19) RNA DUC+probe Ql (Unsp spec) Not detected Normal NOT DETECTED [facility] Comment on above: Performed By: #### R SPLUS ####[facility] [address] [place], [place] [address]CuJhony Oneill MG MAMM SCREEN 3D CHELLY CADon 01-12-2023 MG MAMM SCREEN 3D CHELLY CAD Patient: SULY THORNE Exam Date: 01/12/2023 : 1975 Gender:F Ordering : TATUM Jacob ALONZOJAMILAH Admission #: [id number] Family : Order #: [id number] CLICK HERE TO VIEW EXAM RADIOLOGY REPORT [...] cervical cancer at age 40. LOCATION: [facility] BREAST COMPOSITION: Almost entirely fatty. FINDINGS: [...] MD on 01/12/2023 at 12:42 Normal [facility] XR DEXA BONE DENSITYon 01-12 XR [...] RJ YANEZ Date: 2023-01-12 17:10 Normal [facility] GABAPENTIN URINEon 3 Gabapentin, Urine Negative Normal The [facility] Comment on above: Performed By: #### G ABAP ####[facility] [address] [address]Dr. Jovanna Oneill DRUG SCREEN RAPID (URINE)on 11-14-2022 AMP Negative Normal NEGATIVE [facility] Comment on above: Performed By: #### V ITB12 #### [facility] [address] [address] [address] Jovanna Oneill BAR Negative Normal NEGATIVE [facility] Comment on above: Performed By: #### V ITB12 #### [facility] [address] [address] [address] Jovanna Oneill BUP Negative Normal NEGATIVE [facility] Comment on above: Performed By: #### V ITB12 #### [facility] [address] [address] [address] Jovanna Oneill BZO Negative Normal NEGATIVE [facility] Comment on above: Performed By: #### V ITB12 #### [facility] [address] [address] [address] Jovanna Oneill CARA Negative Normal NEGATIVE [facility] Comment on above: Performed By: #### V ITB12 #### [facility] [address] [address] [address] Jovanna Oneill CUT-OFFS SEE BELOW Normal [facility] Comment on above: Result Comment: [...] ng/mL Performed By: #### V ITB12 #### [facility] [address] [place] [address] Dr. Jovanna Oneill DRUG CUT HEADER DRUG CLASS TEST SYSTEM CUT-OFF CONCENTRATIONS ARE FOLLOWS: Normal [facility] Comment on above: Performed By: #### V ITB12 #### [facility] [address] [place] [address] Dr. Jovanna Oneill mAMP Negative Normal NEGATIVE [facility] Comment on above: Performed By: #### V ITB12 #### [facility] [address] [place] [address] Dr. Jovanna Oneill MTD Negative Normal NEGATIVE [facility] Comment on above: Performed By: #### V ITB12 #### [facility] [address] [place] [address] Dr. Jovanna Oneill OPI Positive Abnormal NEGATIVE [facility] Comment on above: Performed By: #### V ITB12 #### [facility] [address] [place] [address] Dr. Jovanna Oneill OXY Negative Normal NEGATIVE [facility] Comment on above: Performed By: #### V ITB12 #### [facility] [address] [place] [address] Dr. Jovanna Oneill PCP Negative Normal NEGATIVE [facility] Comment on above: Performed By: #### V ITB12 #### [facility] [address] [place] [address] Dr. Jovanna Oneill PPX Negative Normal NEGATIVE [facility] Comment on above: Performed By: #### V ITB12 #### [facility] [address] [place] [address] Dr. Jovanna Oneill TCA Negative Normal NEGATIVE [facility] Comment on above: Performed By: #### V ITB12 #### [facility] [address] [place] [address] Dr. Jovanna Oneill THC Positive Abnormal NEGATIVE [facility] Comment on above: Performed By: #### V ITB12 #### [facility] [address] [place] [address] Dr. Jovanna Oneill CBC AUTO DIFFon 10-08-2022 BASO # 0.0 103/ul Normal 0.0-0.1 [facility] Comment on above: Performed By: #### C BC #### [facility] [address] [place] [address] Dr. Jovanna Oneill Basophils/100 WBC (Bld) 0.4 % Normal 0.2-2.0 [facility] Comment on above: Performed By: #### C BC #### [facility] [address] [place] [address] Dr. Jovanna Oneill EO # 0.1 103/ul Normal 0.0-0.7 [facility] Comment on above: Performed By: #### C BC #### [facility] [address] [place] [address] Dr. Jovanna Oneill Eosinophils/100 WBC (Bld) 1.3 % Normal 0.9-7.0 [facility] Comment on above: Performed By: #### C BC #### [facility] [address] [place] [address] Dr. Jovanna Oneill Erythrocyte distribution width (RBC) [Ratio] 12.0 % Normal 11.0-15.0 [facility] Comment on above: Performed By: #### C BC #### [facility] [address] [place] [address] Dr. Jovanna Oneill Hematocrit (Bld) [Volume fraction] 37.8 % Normal 36.0-48.0 [facility] Comment on above: Performed By: #### C BC #### [facility] [address] [place] [address] Dr. Jovanna Oneill Hemoglobin (Bld) [Mass/Vol] 12.8 g/dL Normal 12.0-16.0 [facility] Comment on above: Performed By: #### C BC #### [facility] [address] [place] [address] Dr. Jovanna Oneill IG # 0.02 10e3/ul Normal 0.00-0.03 [facility] Comment on above: Performed By: #### C BC #### [facility] [address] [place] [address] Dr. Jovanna Oneill IG % 0.2 % Normal 0.0-0.5 [facility] Comment on above: Performed By: #### C BC #### [facility] [address] [place] [address] Dr. Jovanna Oneill LYMPH # 3.5 103/ul Normal 1.2-3.8 [facility] Comment on above: Performed By: #### C BC #### [facility] [address] [place] [address] Dr. Jovanna Oneill Lymphocytes/100 WBC (Bld) 37.9 % Normal 20.5-60.0 [facility] Comment on above: Performed By: #### C BC #### [facility] [address] [place] [address] Dr. Jovanna Oneill MANUAL DIFF REQ NO Normal [facility] Comment on above: Performed By: #### C BC #### [facility] [address] [place] [address] Dr. Jovanna Oneill MCH (RBC) [Entitic mass] 31.7 pg Normal 26.7-34.0 [facility] Comment on above: Performed By: #### C BC #### [facility] [address] [place] [address] Dr. Jovanna Oneill MCHC (RBC) [Mass/Vol] 33.9 g/dL Normal 29.9-35.2 [facility] Comment on above: Performed By: #### C BC #### [facility] [address] [place] [address] Dr. Jovanna Oneill MCV (RBC) [Entitic vol] 93.6 fL Normal 81.0-99.0 [facility] Comment on above: Performed By: #### C BC #### [facility] [address] [place] [address] Dr. Jovanna Oneill MONO # 0.5 103/ul Normal 0.3-0.8 [facility] Comment on above: Performed By: #### C BC #### [facility] [address] [place] [address] Dr. Jovanna Oneill Monocytes/100 WBC (Bld) 4.8 % Normal 1.7-12.0 [facility] Comment on above: Performed By: #### C BC #### [facility] [address] [address] [address] Jovanna Oneill NEUT # 5.1 103/ul Normal 1.4-6.5 [facility] Comment on above: Performed By: #### C BC #### [facility] [address] [address] [address] Jovanna Oneill Neutrophils/100 WBC (Bld) 55.4 % Normal 43.0-75.0 [facility] Comment on above: Performed By: #### C BC #### [facility] [address] [address] [address] Jovanna Oneill Platelet mean volume (Bld) [Entitic vol] 10.2 fL Normal 9.5-13.5 [facility] Comment on above: Performed By: #### C BC #### [facility] [address] [address] [address] Jovanna Oneill PLT 181 103/ul Normal 150-450 [facility] Comment on above: Performed By: #### C BC #### [facility] [address] [address] [address] Jovanna Oneill RBC 4.04 106/ul Critically low 4.20-5.40 [facility] Comment on above: Performed By: #### C BC #### [facility] [address] [address] [address] Jovanna Oneill WBC 9.3 103/ul Normal 4.0-11.0 [facility] Comment on above: Performed By: #### C BC #### [facility] [address] [address] [address] Jovanna Oneill CRPon 10-08-2022 CRP [Mass/Vol] mg/L Normal <=1.0 [facility] Comment on above: Performed By: #### B MP, CRP ####[facility] [address] [address]Dr. Jovanna Oneill LACTATE/LACTIC ACIDon 2021 Lactate [Moles/Vol] 0.4 mmol/L Normal 0.4-1.9 [facility] Comment on above: Performed By: #### L ACT #### [facility] [address] [address] [address] Jovanna Oneill PROF CHEM 8 (BAS METB)on Anion gap [Moles/Vol] 12.6 mmol/L Normal [facility] Comment on above: Performed By: #### B MP, CRP #### [facility] [address] [place] [address] Dr. Jovanna Oneill Calcium [Mass/Vol] 8.6 mg/dL Normal 8.5-10.1 [facility] Comment on above: Performed By: #### B MP, CRP #### [facility] [address] [place] [address] Dr. Jovanna Oneill Chloride [Moles/Vol] 104 mmol/L Normal 98-107 [facility] Comment on above: Performed By: #### B MP, CRP #### [facility] [address] [place] [address] Dr. Jovanna Oneill CO2 [Moles/Vol] 26.8 mmol/L Normal 21.0-32.0 [facility] Comment on above: Performed By: #### B MP, CRP #### [facility] [address] [place] [address] Dr. Jovanna Oneill Creatinine [Mass/Vol] 0.52 mg/dL Critically low 0.55-1.02 [facility] Comment on above: Performed By: #### B MP, CRP #### [facility] [address] [place] [address] Dr. Jovanna Oneill EGFR-AF GEORGIAN >60 Normal >=60 [facility] Comment on above: Performed By: #### B MP, CRP #### [facility] [address] [place] [address] Dr. Jovanna Oneill EGFR-NON AF GEORGIAN >60 Normal >=60 [facility] Comment on above: Performed By: #### B MP, CRP #### [facility] [address] [place] [address] Dr. Jovanna Oneill Glucose [Mass/Vol] 93 mg/dL Normal 74-106 [facility] Comment on above: Performed By: #### B MP, CRP #### [facility] [address] [address] [address] Jovanna Oneill Potassium [Moles/Vol] 3.4 mmol/L Critically low 3.5-5.1 [facility] Comment on above: Performed By: #### B MP, CRP #### [facility] [address] [address] [address] Jovanna Oneill Sodium [Moles/Vol] 140 mmol/L Normal 136-145 [facility] Comment on above: Performed By: #### B MP, CRP #### [facility] [address] [place] [address] Dr. Jovanna Oneill Urea nitrogen [Mass/Vol] 11.0 mg/dL Normal 7.0-18.0 [facility] Comment on above: Performed By: #### B MP, CRP #### [facility] [address] [place] [address] Dr. Jovanna Oneill Urea nitrogen/Creatinine [Mass ratio] 21.2 mg/mg Normal [facility] Comment on above: Performed By: #### B MP, CRP #### [facility] [address] [place] [address] Dr. Jovanna Oneill SED RATE [facility] 2021 SED RATE 17 mm/hr Normal <=20 [facility] Comment on above: Performed By: #### S EDR ####[facility] [address] [address]Dr. Jovanna Oneill Physician Referralon 022 Physician Referral [id number] 1 [id number]:127 Normal [facility] Physician Referral [id number] 1 [id number] .[id number]:127 Normal [facility] PROF 14(COMP METB)on 022 Albumin [Mass/Vol] 3.4 g/dL Normal 3.4-5.0 [facility] Comment on above: Performed By: #### V ITB12 #### [facility] [address] [address] [address] Jovanna Oneill Albumin/Globulin [Mass ratio] 1.1 {ratio} Normal [facility] Comment on above: Performed By: #### V ITB12 #### [facility] [address] [address] [address] Jovanna Oneill ALP [Catalytic activity/Vol] 88 U/L Normal 46-116 [facility] Comment on above: Performed By: #### V ITB12 #### [facility] [address] [address] [address] Jovanna Oneill ALT [Catalytic activity/Vol] 11 U/L Critically low 14-59 [facility] Comment on above: Performed By: #### V ITB12 #### [facility] [address] [address] [address] Jovanna Oneill Anion gap [Moles/Vol] 8.7 mmol/L Normal [facility] Comment on above: Performed By: #### V ITB12 #### [facility] [address] [address] [address] Jovanna Oneill AST [Catalytic activity/Vol] 13 U/L Critically low 15-37 [facility] Comment on above: Performed By: #### V ITB12 #### [facility] [address] [address] [address] Jovanna Oneill Bilirubin [Mass/Vol] 0.6 mg/dL Normal 0.2-1.0 [facility] Comment on above: Performed By: #### V ITB12 #### [facility] [address] [address] [address] Jovanna Oneill Calcium [Mass/Vol] 8.7 mg/dL Normal 8.5-10.1 [facility] Comment on above: Performed By: #### V ITB12 #### [facility] [address] [address] [address] Jovanna Oneill Chloride [Moles/Vol] 104 mmol/L Normal 98-107 [facility] Comment on above: Performed By: #### V ITB12 #### [facility] [address] [address] [address] Jovanna Oneill CO2 [Moles/Vol] 31.9 mmol/L Normal 21.0-32.0 [facility] Comment on above: Performed By: #### V ITB12 #### [facility] [address] [address] [address] Jovanna Oneill Creatinine [Mass/Vol] 0.65 mg/dL Normal 0.55-1.02 [facility] Comment on above: Performed By: #### V ITB12 #### [facility] [address] [address] [address] Jovanna Oneill EGFR-AF GEORGIAN >60 Normal >=60 [facility] Comment on above: Performed By: #### V ITB12 #### [facility] [address] [place] [address] Dr. Jovanna Oneill EGFR-NON AF GEORGIAN >60 Normal >=60 [facility] Comment on above: Performed By: #### V ITB12 #### [facility] [address] [place] [address] Dr. Jovnana Oneill Globulin (S) [Mass/Vol] 3.2 g/dL Normal [facility] Comment on above: Performed By: #### V ITB12 #### [facility] [address] [place] [address] Dr. Jovanna Oneill Glucose [Mass/Vol] 91 mg/dL Normal 74-106 [facility] Comment on above: Performed By: #### V ITB12 #### [facility] [address] [place] [address] Dr. Jovanna Oneill Potassium [Moles/Vol] 3.6 mmol/L Normal 3.5-5.1 [facility] Comment on above: Performed By: #### V ITB12 #### [facility] [address] [place] [address] Dr. Jovanna Oneill Protein [Mass/Vol] 6.6 g/dL Normal 6.4-8.2 [facility] Comment on above: Performed By: #### V ITB12 #### [facility] [address] [address] [address] Jovanna Oneill Sodium [Moles/Vol] 141 mmol/L Normal 136-145 [facility] Comment on above: Performed By: #### V ITB12 #### [facility] [address] [place] [address] Dr. Jovanna Oneill Urea nitrogen [Mass/Vol] 4.0 mg/dL Critically low 7.0-18.0 [facility] Comment on above: Performed By: #### V ITB12 #### [facility] [address] [address] [address] Jovanna Oneill Urea nitrogen/Creatinine [Mass ratio] 6.2 mg/mg Normal [facility] Comment on above: Performed By: #### V ITB12 #### [facility] [address] [place] [address] Dr. Jovanna Oneill HEPATITIS C AB CASCADE TO QU ANT PCR GENOon 09-13-2022 HCV AB <0.1 Normal 0.0-0.9 [facility] Comment on above: Performed By: #### H EPCASC #### [facility] [address] [place] [address] Dr. Jovanna Oneill Interpretation: Comment Normal [facility] Comment on above: Result Comment: Nega tive Not infected with HCV, unless recent infection is suspected or other evidence exists to indicate HCV infection. Performed By: #### H EPCASC #### [facility] [address] [place] [address] Dr. Jovanna Oneill CBC AUTO DIFFon 09-12-2022 BASO # 0.0 103/ul Normal 0.0-0.1 [facility] Comment on above: Performed By: #### C BC #### [facility] [address] [place] [address] Dr. Jovanna Oneill Basophils/100 WBC (Bld) 0.3 % Normal 0.2-2.0 [facility] Comment on above: Performed By: #### C BC #### [facility] [address] [place] [address] Dr. Jovanna Oneill EO # 0.1 103/ul Normal 0.0-0.7 [facility] Comment on above: Performed By: #### C BC #### [facility] [address] [place] [address] Dr. Jovanna Oneill Eosinophils/100 WBC (Bld) 0.7 % Critically low 0.9-7.0 [facility] Comment on above: Performed By: #### C BC #### [facility] [address] [place] [address] Dr. Jovanna Oneill Erythrocyte distribution width (RBC) [Ratio] 12.3 % Normal 11.0-15.0 [facility] Comment on above: Performed By: #### C BC #### [facility] [address] [place] [address] Dr. Jovanna Oneill Hematocrit (Bld) [Volume fraction] 40.2 % Normal 36.0-48.0 [facility] Comment on above: Performed By: #### C BC #### [facility] [address] [place] [address] Dr. Jovanna Oneill Hemoglobin (Bld) [Mass/Vol] 13.4 g/dL Normal 12.0-16.0 [facility] Comment on above: Performed By: #### C BC #### [facility] [address] [place] [address] Dr. Jovanna Oneill IG # 0.02 10e3/ul Normal 0.00-0.03 [facility] Comment on above: Performed By: #### C BC #### [facility] [address] [place] [address] Dr. Jovanna Oneill IG % 0.3 % Normal 0.0-0.5 [facility] Comment on above: Performed By: #### C BC #### [facility] [address] [place] [address] Dr. Jovanna Oneill LYMPH # 2.2 103/ul Normal 1.2-3.8 [facility] Comment on above: Performed By: #### C BC #### [facility] [address] [place] [address] Dr. Jovanna Oneill Lymphocytes/100 WBC (Bld) 31.9 % Normal 20.5-60.0 [facility] Comment on above: Performed By: #### C BC #### [facility] [address] [place] [address] Dr. Jovanna Oneill MANUAL DIFF REQ NO Normal [facility] Comment on above: Performed By: #### C BC #### [facility] [address] [place] [address] Dr. Jovanna Oneill MCH (RBC) [Entitic mass] 31.8 pg Normal 26.7-34.0 [facility] Comment on above: Performed By: #### C BC #### [facility] [address] [place] [address] Dr. Jovanna Oneill MCHC (RBC) [Mass/Vol] 33.3 g/dL Normal 29.9-35.2 [facility] Comment on above: Performed By: #### C BC #### [facility] [address] [place] [address] Dr. Jovanna Oneill MCV (RBC) [Entitic vol] 95.5 fL Normal 81.0-99.0 [facility] Comment on above: Performed By: #### C BC #### [facility] [address] [place] [address] Dr. Jovanna Oneill MONO # 0.3 103/ul Normal 0.3-0.8 [facility] Comment on above: Performed By: #### C BC #### [facility] [address] [place] [address] Dr. Jovanna Oneill Monocytes/100 WBC (Bld) 4.4 % Normal 1.7-12.0 [facility] Comment on above: Performed By: #### C BC #### [facility] [address] [place] [address] Dr. Jovanna Oneill NEUT # 4.4 103/ul Normal 1.4-6.5 [facility] Comment on above: Performed By: #### C BC #### [facility] [address] [place] [address] Dr. Jovanna Oneill Neutrophils/100 WBC (Bld) 62.4 % Normal 43.0-75.0 [facility] Comment on above: Performed By: #### C BC #### [facility] [address] [address] [address] Jovanna Oneill Platelet mean volume (Bld) [Entitic vol] 10.9 fL Normal 9.5-13.5 [facility] Comment on above: Performed By: #### C BC #### [facility] [address] [place] [address] Dr. Jovanna Oneill PLT 179 103/ul Normal 150-450 [facility] Comment on above: Performed By: #### C BC #### [facility] [address] [address] [address] Jovanna Oneill RBC 4.21 106/ul Normal 4.20-5.40 [facility] Comment on above: Performed By: #### C BC #### [facility] [address] [place] [address] Dr. Jovanna Oneill WBC 7.0 103/ul Normal 4.0-11.0 [facility] Comment on above: Performed By: #### C BC #### [facility] [address] [place] [address] Dr. Jovanna Oneill GLYCOHEMOGLOBIN A1Con 2021 ADA RECOMMENDATION SEE BELOW Normal [facility] Comment on above: Result Comment: ADA RECOMMENDED LIMIT 4.0 - 6.0 ADA THERAPEUTIC TARGET < 7.0 ACTION SUGGESTED > 7.0 Performed By: #### L ACT #### [facility] [address] [place] [address] Dr. Jovanna Oneill Glucose [Mass/Vol] 105 mg/dL Normal [facility] Comment on above: Performed By: #### L ACT #### [facility] [address] [place] [address] Dr. Jovanna Oneill HbA1c (Bld) [Mass fraction] 5.3 % Normal 4.5-6.2 [facility] Comment on above: Performed By: #### L ACT #### [facility] [address] [place] [address] Dr. Jovanna Oneill LIPID PROFILEon 09-12-2022 CHOL-HDL RATIO NORM SEE BELOW Normal [facility] Comment on above: Result Comment: 3.3 - 4.4 LOW RISK 4.4 - 7.1 AVERAGE RISK 7.1 - 11.0 MODERATE RISK >11.0 HIGH RISK Performed By: #### C MP, LIPID #### [facility] [address] [address] [address] Jovanna Oneill Cholesterol [Mass/Vol] 135 mg/dL Normal <=200 [facility] Comment on above: Performed By: #### C MP, LIPID #### [facility] [address] [address] [address] Jovanna Oneill Cholesterol in HDL [Mass/Vol] 35 mg/dL Critically low 40-60 [facility] Comment on above: Performed By: #### C MP, LIPID #### [facility] [address] [address] [address] Jovanna Oneill Cholesterol in LDL [Mass/Vol] 84.8 mg/dL Normal [facility] Comment on above: Performed By: #### C MP, LIPID #### [facility] [address] [address] [address] Jovanna Oneill Cholesterol.total/Cho lesterol in HDL [Mass ratio] 3.9 {ratio} Normal [facility] Comment on above: Performed By: #### C MP, LIPID #### [facility] [address] [place] [address] Dr. Jovanna Oneill HDL NORMAL > or = 60 mg/dl - LO W CARDIOVASCULAR RISK <40 mg/dl - HIGH CARDIOVASCULAR RISK Normal [facility] Comment on above: Performed By: #### C MP, LIPID #### [facility] [address] [address] [address] Jovanna Oneill LDL CALC NORMAL SEE BELOW Normal [facility] Comment on above: Result Comment: <100 mg/dl OPTIMAL 100 - 129 mg/dl NEAR OR ABOVE OPTIMAL 130 - 159 mg/dl BORDERLINE HIGH 160 - 189 mg/dl HIGH >190 mg/dl VERY HIGH Performed By: #### C MP, LIPID #### [facility] [address] [address] [address] Jovanna Oneill Triglyceride [Mass/Vol] 76 mg/dL Normal <=150 [facility] Comment on above: Performed By: #### C MP, LIPID #### [facility] [address] [address] [address] Jovanna Oneill VLDL CALC 15.2 mg/dL Normal [facility] Comment on above: Performed By: #### C MP, LIPID #### [facility] [address] [address] [address] Jovanna Oneill PROF 14(COMP METB)on 022 Albumin [Mass/Vol] 3.5 g/dL Normal 3.4-5.0 [facility] Comment on above: Performed By: #### C MP, LIPID #### [facility] [address] [address] [address] Jovanna Oneill Albumin/Globulin [Mass ratio] 1.1 {ratio} Normal [facility] Comment on above: Performed By: #### C MP, LIPID #### [facility] [address] [place] [address] Dr. Jovanna Oneill ALP [Catalytic activity/Vol] 79 U/L Normal 46-116 [facility] Comment on above: Performed By: #### C MP, LIPID #### [facility] [address] [address] [address] Jovanna Oneill ALT [Catalytic activity/Vol] 15 U/L Normal 14-59 [facility] Comment on above: Performed By: #### C MP, LIPID #### [facility] [address] [address] [address] Jovanna Oneill Anion gap [Moles/Vol] 4.9 mmol/L Normal [facility] Comment on above: Performed By: #### C MP, LIPID #### [facility] [address] [address] [address] Jovanna Oneill AST [Catalytic activity/Vol] 17 U/L Normal 15-37 [facility] Comment on above: Performed By: #### C MP, LIPID #### [facility] [address] [address] [address] Jovanna Oneill Bilirubin [Mass/Vol] 0.4 mg/dL Normal 0.2-1.0 [facility] Comment on above: Performed By: #### C MP, LIPID #### [facility] [address] [address] [address] Jovanna Oneill Calcium [Mass/Vol] 8.7 mg/dL Normal 8.5-10.1 [facility] Comment on above: Performed By: #### C MP, LIPID #### [facility] [address] [address] [address] Jovanna Oneill Chloride [Moles/Vol] 103 mmol/L Normal 98-107 [facility] Comment on above: Performed By: #### C MP, LIPID #### [facility] [address] [address] [address] Jovanna Oneill CO2 [Moles/Vol] 35.8 mmol/L Critically high 21.0-32.0 [facility] Comment on above: Performed By: #### C MP, LIPID #### [facility] [address] [address] [address] Jovanna Oneill Creatinine [Mass/Vol] 0.70 mg/dL Normal 0.55-1.02 [facility] Comment on above: Performed By: #### C MP, LIPID #### [facility] [address] [address] [address] Jovanna Oneill EGFR-AF GEORGIAN >60 Normal >=60 [facility] Comment on above: Performed By: #### C MP, LIPID #### [facility] [address] [address] [address] Jovanna Oneill EGFR-NON AF GEORGIAN >60 Normal >=60 [facility] Comment on above: Performed By: #### C MP, LIPID #### [facility] [address] [address] [address] Jovanna Oneill Globulin (S) [Mass/Vol] 3.2 g/dL Normal [facility] Comment on above: Performed By: #### C MP, LIPID #### [facility] [address] [address] [address] Jovanna Oneill Glucose [Mass/Vol] 86 mg/dL Normal 74-106 [facility] Comment on above: Performed By: #### C MP, LIPID #### [facility] [address] [address] [address] Jovanna Oneill Potassium [Moles/Vol] 2.7 mmol/L Critically low 3.5-5.1 [facility] Comment on above: Performed By: #### C MP, LIPID #### [facility] [address] [address] [address] Jovanna Oneill Protein [Mass/Vol] 6.7 g/dL Normal 6.4-8.2 [facility] Comment on above: Performed By: #### C MP, LIPID #### [facility] [address] [address] [address] Jovanna Oneill Sodium [Moles/Vol] 141 mmol/L Normal 136-145 [facility] Comment on above: Performed By: #### C MP, LIPID #### [facility] [address] [address] [address] Jovanna Oneill Urea nitrogen [Mass/Vol] 6.0 mg/dL Critically low 7.0-18.0 [facility] Comment on above: Performed By: #### C MP, LIPID #### [facility] [address] [address] [address] Jovanna Oneill Urea nitrogen/Creatinine [Mass ratio] 8.6 mg/mg Normal [facility] Comment on above: Performed By: #### C MP, LIPID #### [facility] [address] [address] [address] Jovanna Oneill US THYROIDon 09-12-2022 US [...] by: FRANCES AGUSTIN Date: 2022-09-12 11:52 Normal [facility] VITAMIN B12on 09-12-2022 Cobalamin (Vitamin B12) [Mass/Vol] 280.0 pg/mL Normal 193.0-986.0 [facility] Comment on above: Performed By: #### V ITB12 #### [facility] [address] [address] CSPINE WO CONon [...] MAN VILLALOBOS Date: 2022-08-24 18:11 Normal [facility] CT NECK ST W CONon 2 [...] WOO PAIGE Date: 2022-08-16 23:10 Normal [facility] CBC AUTO DIFFon 08-16-2022 BASO # 0.0 103/ul Normal 0.0-0.1 [facility] Comment on above: Performed By: #### C BC ####[facility] [address] [address]. Jovanna Oneill Basophils/100 WBC (Bld) 0.2 % Normal 0.2-2.0 [facility] Comment on above: Performed By: #### C BC ####[facility] [address] [address]Dr. Jovanna Oneill EO # 0.1 103/ul Normal 0.0-0.7 [facility] Comment on above: Performed By: #### C BC ####[facility] [address] [address]Dr. Jovanna Oneill Eosinophils/100 WBC (Bld) 0.7 % Critically low 0.9-7.0 [facility] Comment on above: Performed By: #### C BC ####[facility] [address] [address]Dr. Jovanna Oneill Erythrocyte distribution width (RBC) [Ratio] 12.1 % Normal 11.0-15.0 [facility] Comment on above: Performed By: #### C BC ####[facility] [address] [address]DrJhony Oneill Hematocrit (Bld) [Volume fraction] 38.8 % Normal 36.0-48.0 [facility] Comment on above: Performed By: #### C BC ####[facility] [address] [address]DrJhony Oneill Hemoglobin (Bld) [Mass/Vol] 12.8 g/dL Normal 12.0-16.0 [facility] Comment on above: Performed By: #### C BC ####[facility] [address] [address]DrJhony Oneill IG # 0.06 10e3/ul Critically high 0.00-0.03 [facility] Comment on above: Performed By: #### C BC ####[facility] [address] [address]DrJhony Oneill IG % 0.4 % Normal 0.0-0.5 [facility] Comment on above: Performed By: #### C BC ####[facility] [address] [place], [place] [address]DrJhony Oneill LYMPH # 2.5 103/ul Normal 1.2-3.8 [facility] Comment on above: Performed By: #### C BC ####[facility] [address] [address]DrJhony Oneill Lymphocytes/100 WBC (Bld) 18.1 % Critically low 20.5-60.0 [facility] Comment on above: Performed By: #### C BC ####[facility] [address] [address]DrJhony Oneill MANUAL DIFF REQ NO Normal [facility] Comment on above: Performed By: #### C BC ####[facility] [address] [id number] Oneill MCH (RBC) [Entitic mass] 32.0 pg Normal 26.7-34.0 [facility] Comment on above: Performed By: #### C BC ####[facility] [address] [id number] Oneill MCHC (RBC) [Mass/Vol] 33.0 g/dL Normal 29.9-35.2 [facility] Comment on above: Performed By: #### C BC ####[facility] [address] [address]DrJhony Jovanna Nino MCV (RBC) [Entitic vol] 97.0 fL Normal 81.0-99.0 [facility] Comment on above: Performed By: #### C BC ####[facility] [address] [address]DrJhony Oneill MONO # 0.6 103/ul Normal 0.3-0.8 [facility] Comment on above: Performed By: #### C BC ####[facility] [address] [address]DrJhony Oneill Monocytes/100 WBC (Bld) 4.5 % Normal 1.7-12.0 [facility] Comment on above: Performed By: #### C BC ####[facility] [address] [place], [place] [address]Dr. Jovanna Oneill NEUT # 10.4 103/ul Critically high 1.4-6.5 [facility] Comment on above: Performed By: #### C BC ####[facility] [address] [place], [place] [address]Dr. Jovanna Oneill Neutrophils/100 WBC (Bld) 76.1 % Critically high 43.0-75.0 [facility] Comment on above: Performed By: #### C BC ####[facility] [address] [place], [place] [address]Dr. Jovanna Oneill Platelet mean volume (Bld) [Entitic vol] 10.9 fL Normal 9.5-13.5 [facility] Comment on above: Performed By: #### C BC ####[facility] [address] [place], [place] [address]Dr. Jovanna Oneill PLT 193 103/ul Normal 150-450 [facility] Comment on above: Performed By: #### C BC ####[facility] [address] [id number] Oneill RBC 4.00 106/ul Critically low 4.20-5.40 [facility] Comment on above: Performed By: #### C BC ####[facility] [address] [address]Dr. Jovanna Oneill WBC 13.7 103/ul Critically high 4.0-11.0 [facility] Comment on above: Performed By: #### C BC ####[facility] [address] [address]Dr. Jovanna Oneill FREE T4on 08-16-2022 Free T4 [Mass/Vol] 0.68 ng/dL Critically low 0.76-1.46 [facility] Comment on above: Performed By: #### L ACT #### [facility] [address] [place] [address] Dr. Jovanna Oneill HS-CRPon 08-16-2022 HS-CRP 1.04 mg/L Normal <=3.00 [facility] Comment on above: Performed By: #### L ACT #### [facility] [address] [place] [address] Dr. Jovanna Oneill PROF 14(COMP METB)on 022 Albumin [Mass/Vol] 3.5 g/dL Normal 3.4-5.0 [facility] Comment on above: Performed By: #### V ITB12 #### [facility] [address] [place] [address] Dr. Jovanna Oneill Albumin/Globulin [Mass ratio] 1.1 {ratio} Normal [facility] Comment on above: Performed By: #### V ITB12 #### [facility] [address] [place] [address] Dr. Jovanna Oneill ALP [Catalytic activity/Vol] 82 U/L Normal 46-116 [facility] Comment on above: Performed By: #### V ITB12 #### [facility] [address] [place] [address] Dr. Jovanna Oneill ALT [Catalytic activity/Vol] 17 U/L Normal 14-59 [facility] Comment on above: Performed By: #### V ITB12 #### [facility] [address] [place], [place] [id number] Dr. Jovanna Oneill Anion gap [Moles/Vol] 9.6 mmol/L Normal [facility] Comment on above: Performed By: #### V ITB12 #### [facility] [address] [place] [address] Dr. Jovanna Oneill AST [Catalytic activity/Vol] 17 U/L Normal 15-37 [facility] Comment on above: Performed By: #### V ITB12 #### [facility] [address] [place] [address] Dr. Jovanna Oneill Bilirubin [Mass/Vol] 0.4 mg/dL Normal 0.2-1.0 [facility] Comment on above: Performed By: #### V ITB12 #### [facility] [address] [place] [address] Dr. Jovanna Oneill Calcium [Mass/Vol] 8.7 mg/dL Normal 8.5-10.1 [facility] Comment on above: Performed By: #### V ITB12 #### [facility] [address] [place] [address] Dr. Jovanna Oneill Chloride [Moles/Vol] 105 mmol/L Normal 98-107 [facility] Comment on above: Performed By: #### V ITB12 #### [facility] [address] [place] [address] Dr. Jovanna Oneill CO2 [Moles/Vol] 30.9 mmol/L Normal 21.0-32.0 [facility] Comment on above: Performed By: #### V ITB12 #### [facility] [address] [place] [address] Dr. Jovanna Oneill Creatinine [Mass/Vol] 0.69 mg/dL Normal 0.55-1.02 [facility] Comment on above: Performed By: #### V ITB12 #### [facility] [address] [place] [address] Dr. Jovanna Oneill EGFR-AF GEORGIAN >60 Normal >=60 [facility] Comment on above: Performed By: #### V ITB12 #### [facility] [address] [place] [address] Dr. Jovanna Oneill EGFR-NON AF GEORGIAN >60 Normal >=60 [facility] Comment on above: Performed By: #### V ITB12 #### [facility] [address] [place] [address] Dr. Jovanna Oneill Globulin (S) [Mass/Vol] 3.1 g/dL Normal [facility] Comment on above: Performed By: #### V ITB12 #### [facility] [address] [place] [address] Dr. Jovanna Oneill Glucose [Mass/Vol] 84 mg/dL Normal 74-106 [facility] Comment on above: Performed By: #### V ITB12 #### [facility] [address] [place] [address] Dr. Jovanna Oneill Potassium [Moles/Vol] 3.5 mmol/L Normal 3.5-5.1 [facility] Comment on above: Performed By: #### V ITB12 #### [facility] [address] [place] [address] Dr. Jovanna Oneill Protein [Mass/Vol] 6.6 g/dL Normal 6.4-8.2 [facility] Comment on above: Performed By: #### V ITB12 #### [facility] [address] [place] [address] Dr. Jovanna Oneill Sodium [Moles/Vol] 142 mmol/L Normal 136-145 [facility] Comment on above: Performed By: #### V ITB12 #### [facility] [address] [place] [address] Dr. Jovanna Oneill Urea nitrogen [Mass/Vol] 7.0 mg/dL Normal 7.0-18.0 [facility] Comment on above: Performed By: #### V ITB12 #### [facility] [address] [place] [address] Dr. Jovanna Oneill Urea nitrogen/Creatinine [Mass ratio] 10.1 mg/mg Normal [facility] Comment on above: Performed By: #### V ITB12 #### [facility] [address] [place] [address] Dr. Yilan Oneill PROF CHEM 8 (BAS METB)on Anion gap [Moles/Vol] 8.5 mmol/L Normal [facility] Comment on above: Performed By: #### L ACT #### [facility] [address] [place] [address] Dr. Jovanna Oneill Calcium [Mass/Vol] 8.3 mg/dL Critically low 8.5-10.1 [facility] Comment on above: Performed By: #### L ACT #### [facility] [address] [place] [address] Dr. Jovanna Oneill Chloride [Moles/Vol] 105 mmol/L Normal 98-107 [facility] Comment on above: Performed By: #### L ACT #### [facility] [address] [place] [address] Dr. oJvanna Oneill CO2 [Moles/Vol] 28.4 mmol/L Normal 21.0-32.0 [facility] Comment on above: Performed By: #### L ACT #### [facility] [address] [place] [address] Dr. Jovanna Oneill Creatinine [Mass/Vol] 0.72 mg/dL Normal 0.55-1.02 [facility] Comment on above: Performed By: #### L ACT #### [facility] [address] [place] [address] Dr. Jovanna Oneill EGFR-AF GEORGIAN >60 Normal >=60 [facility] Comment on above: Performed By: #### L ACT #### [facility] [address] [address] [address] Jovanna Oneill EGFR-NON AF GEORGIAN >60 Normal >=60 [facility] Comment on above: Performed By: #### L ACT #### [facility] [address] [place] [address] Dr. Jovanna Oneill Glucose [Mass/Vol] 242 mg/dL Critically high 74-106 [facility] Comment on above: Performed By: #### L ACT #### [facility] [address] [address] [address] Jovanna Oneill Potassium [Moles/Vol] 2.9 mmol/L Critically low 3.5-5.1 [facility] Comment on above: Performed By: #### L ACT #### [facility] [address] [place] [address] Dr. Jovanna Oneill Sodium [Moles/Vol] 138 mmol/L Normal 136-145 [facility] Comment on above: Performed By: #### L ACT #### [facility] [address] [id number] Jovanna Oneill Urea nitrogen [Mass/Vol] 5.0 mg/dL Critically low 7.0-18.0 [facility] Comment on above: Performed By: #### L ACT #### [facility] [address] [place] [address] Dr. Jovanna Oneill Urea nitrogen/Creatinine [Mass ratio] 6.9 mg/mg Normal [facility] Comment on above: Performed By: #### L ACT #### [facility] [address] [place] [address] Dr. Jovanna Oneill TSHon 08-16-2022 TSH 4.977 uIU/mL Critically high 0.358-3.740 [facility] Comment on above: Performed By: #### V ITB12 #### [facility] [address] [place] [address] ABD/PELVIS WO CONon [...] Ayaka LEON Date: 2022-05-02 03:06 Normal [facility] DRUG SCREEN RAPID (URINE)on 05-02-2022 AMP Negative Normal NEGATIVE [facility] Comment on above: Performed By: #### L ACT #### [facility] [address] [place] [address] Dr. Jovanna Oneill BAR Negative Normal NEGATIVE [facility] Comment on above: Performed By: #### L ACT #### [facility] [address] [place] [address] Dr. Jovanna Oneill BUP Negative Normal NEGATIVE [facility] Comment on above: Performed By: #### L ACT #### [facility] [address] [place] [address] Dr. Jovanna Oneill BZO Negative Normal NEGATIVE [facility] Comment on above: Performed By: #### L ACT #### [facility] [address] [place] [address] Dr. Jovanna Oneill CARA Negative Normal NEGATIVE [facility] Comment on above: Performed By: #### L ACT #### [facility] [address] [place] [address] Dr. Jovanna Oneill CUT-OFFS SEE BELOW Normal [facility] Comment on above: Result Comment: AMP [...] ng/mL Performed By: #### L ACT #### [facility] [address] [place] [address] Dr. Jovanna Oneill DRUG CUT HEADER DRUG CLASS TEST SYSTEM CUT-OFF CONCENTRATIONS ARE FOLLOWS: Normal [facility] Comment on above: Performed By: #### L ACT #### [facility] [address] [place] [address] Dr. Jovanna Oneill mAMP Negative Normal NEGATIVE [facility] Comment on above: Performed By: #### L ACT #### [facility] [address] [place] [address] Dr. Jovanna Oneill MTD Negative Normal NEGATIVE [facility] Comment on above: Performed By: #### L ACT #### [facility] [address] [place] [address] Dr. Jovanna Oneill OPI Positive Abnormal NEGATIVE [facility] Comment on above: Performed By: #### L ACT #### [facility] [address] [place] [address] Dr. Jovanna Oneill OXY Negative Normal NEGATIVE [facility] Comment on above: Performed By: #### L ACT #### [facility] [address] [place] [address] Dr. Jovanna Oneill PCP Negative Normal NEGATIVE [facility] Comment on above: Performed By: #### L ACT #### [facility] [address] [place] [address] Dr. Jovanna Oneill PPX Negative Normal NEGATIVE [facility] Comment on above: Performed By: #### L ACT #### [facility] [address] [place] [address] Dr. Jovanna Oneill TCA Negative Normal NEGATIVE [facility] Comment on above: Performed By: #### L ACT #### [facility] [address] [place] [address] Dr. Jovanna Oneill THC Positive Abnormal NEGATIVE [facility] Comment on above: Performed By: #### L ACT #### [facility] [address] [place] [address] Dr. Jovanna Oneill ER URINE PROFILEon 2 Bilirubin Ql (U) Negative Normal NEGATIVE [facility] Comment on above: Performed By: #### L ACT #### [facility] [address] [place] [address] Dr. Jovanna Oneill Clarity (U) CLEAR Normal CLEAR [facility] Comment on above: Performed By: #### L ACT #### [facility] [address] [place] [address] Dr. Jovanna Oneill Color (U) LT. YELLOW Normal YELLOW [facility] Comment on above: Performed By: #### L ACT #### [facility] [address] [place] [address] Dr. Jovanna SANTIAGO A micrscopic examination will be performed if indicated. Normal [facility] Comment on above: Performed By: #### L ACT #### [facility] [address] [place] [address] Dr. Jovanna Oneill Glucose Ql (U) Negative Normal NEGATIVE [facility] Comment on above: Performed By: #### L ACT #### [facility] [address] [place] [address] Dr. Jovanna Oneill Hemoglobin Ql (U) Negative Normal NEGATIVE [facility] Comment on above: Performed By: #### L ACT #### [facility] [address] [place] [address] Dr. Jovanna Oneill Ketones Ql (U) Negative Normal NEGATIVE [facility] Comment on above: Performed By: #### L ACT #### [facility] [address] [place] [address] Dr. Jovanna Oneill LEUKOCYTES Negative Normal NEGATIVE [facility] Comment on above: Performed By: #### L ACT #### [facility] [address] [place] [address] Dr. Jovanna Oneill Nitrite Ql (U) Negative Normal NEGATIVE [facility] Comment on above: Performed By: #### L ACT #### [facility] [address] [place] [address] Dr. Jovanna Oneill pH (U) 6.0 [pH] Normal 5-9 [facility] Comment on above: Performed By: #### L ACT #### [facility] [address] [place] [address] Dr. Jovanna Oneill SPEC GRAVITY <=1.005 Abnormal 1.005-<=1.025 [facility] Comment on above: Performed By: #### L ACT #### [facility] [address] [place] [address] Dr. Jovanna Oneill UA PROTEIN Negative Normal NEGATIVE/ TRACE [facility] Comment on above: Performed By: #### L ACT #### [facility] [address] [place] [address] Dr. Jovanna Oneill UR MICRO IND NOT INDICATED Normal [facility] Comment on above: Performed By: #### L ACT #### [facility] [address] [place] [address] Dr. Jovanna Oneill Urobilinogen Qn (U) 0.2 {Isabella'U}/dL Normal 0.2 - 1. 0 [facility] Comment on above: Performed By: #### L ACT #### [facility] [address] [place] [address] Dr. Jovanna Oneill CBC AUTO DIFFon 04-20-2022 BASO # 0.0 103/ul Normal 0.0-0.1 [facility] Comment on above: Performed By: #### L ACT #### [facility] [address] [place] [address] Dr. Jovanna Oneill Basophils/100 WBC (Bld) 0.1 % Critically low 0.2-2.0 [facility] Comment on above: Performed By: #### L ACT #### [facility] [address] [place] [address] Dr. Jovanna Oneill EO # 0.0 103/ul Normal 0.0-0.7 [facility] Comment on above: Performed By: #### L ACT #### [facility] [address] [place] [address] Dr. Jovanna Oneill Eosinophils/100 WBC (Bld) 0.1 % Critically low 0.9-7.0 [facility] Comment on above: Performed By: #### L ACT #### [facility] [address] [address] [address] Jovanna Oneill Erythrocyte distribution width (RBC) [Ratio] 12.6 % Normal 11.0-15.0 [facility] Comment on above: Performed By: #### L ACT #### [facility] [address] [address] [address] Jovanna Oneill Hematocrit (Bld) [Volume fraction] 38.8 % Normal 36.0-48.0 [facility] Comment on above: Performed By: #### L ACT #### [facility] [address] [address] [address] Jovanna Oneill Hemoglobin (Bld) [Mass/Vol] 12.6 g/dL Normal 12.0-16.0 [facility] Comment on above: Performed By: #### L ACT #### [facility] [address] [place] [address] Dr. Jovanna Oneill IG # 0.13 10e3/ul Critically high 0.00-0.03 [facility] Comment on above: Performed By: #### L ACT #### [facility] [address] [address] [address] Jovanna Oneill IG % 1.0 % Critically high 0.0-0.5 [facility] Comment on above: Performed By: #### L ACT #### [facility] [address] [address] [address] Jovanna Oneill LYMPH # 1.1 103/ul Critically low 1.2-3.8 [facility] Comment on above: Performed By: #### L ACT #### [facility] [address] [address] [address] Jovanna Oneill Lymphocytes/100 WBC (Bld) 8.3 % Critically low 20.5-60.0 [facility] Comment on above: Performed By: #### L ACT #### [facility] [address] [address] [address] Jovanna Oneill MANUAL DIFF REQ NO Normal [facility] Comment on above: Performed By: #### L ACT #### [facility] [address] [address] [address] Jovanna Oneill MCH (RBC) [Entitic mass] 31.0 pg Normal 26.7-34.0 [facility] Comment on above: Performed By: #### L ACT #### [facility] [address] [place] [address] Dr. Jovanna Oneill MCHC (RBC) [Mass/Vol] 32.5 g/dL Normal 29.9-35.2 [facility] Comment on above: Performed By: #### L ACT #### [facility] [address] [place] [address] Dr. Jovanna Oneill MCV (RBC) [Entitic vol] 95.3 fL Normal 81.0-99.0 [facility] Comment on above: Performed By: #### L ACT #### [facility] [address] [place] [address] Dr. Jovanna Oneill MONO # 0.8 103/ul Normal 0.3-0.8 [facility] Comment on above: Performed By: #### L ACT #### [facility] [address] [place] [address] Dr. Jovanna Oneill Monocytes/100 WBC (Bld) 5.8 % Normal 1.7-12.0 [facility] Comment on above: Performed By: #### L ACT #### [facility] [address] [place] [address] Dr. Jovanna Oneill NEUT # 11.4 103/ul Critically high 1.4-6.5 [facility] Comment on above: Performed By: #### L ACT #### [facility] [address] [place] [address] Dr. Jovanna Oneill Neutrophils/100 WBC (Bld) 84.7 % Critically high 43.0-75.0 [facility] Comment on above: Performed By: #### L ACT #### [facility] [address] [place] [address] Dr. Jovanna Oneill Platelet mean volume (Bld) [Entitic vol] 10.1 fL Normal 9.5-13.5 [facility] Comment on above: Performed By: #### L ACT #### [facility] [address] [address] [address] Jovanna Oneill PLT 205 103/ul Normal 150-450 [facility] Comment on above: Performed By: #### L ACT #### [facility] [address] [address] [address] Jovanna Oneill RBC 4.07 106/ul Critically low 4.20-5.40 The [facility] Comment on above: Performed By: #### L ACT #### [facility] [address] [address] [address] Jovanna Oneill WBC 13.4 103/ul Critically high 4.0-11.0 [facility] Comment on above: Performed By: #### L ACT #### [facility] [address] [address] [address] Jovanna Oneill DRUG SCREEN RAPID (URINE)on 04-20-2022 AMP Negative Normal NEGATIVE [facility] Comment on above: Performed By: #### U MICRO, ERUR, DRUGRPD ####[facility] [address] [address]Dr. Jovanna Oneill BAR Negative Normal NEGATIVE [facility] Comment on above: Performed By: #### U MICRO, ERUR, DRUGRPD ####[facility] [address] [address]Dr. Jovanna Oneill BUP Negative Normal NEGATIVE [facility] Comment on above: Performed By: #### U MICRO, ERUR, DRUGRPD ####[facility] [address] [address]Dr. Jovanna Oneill BZO Negative Normal NEGATIVE [facility] Comment on above: Performed By: #### U MICRO, ERUR, DRUGRPD ####[facility] [address] [address]Dr. Jovanna Oneill CARA Negative Normal NEGATIVE [facility] Comment on above: Performed By: #### U MICRO, ERUR, DRUGRPD ####[facility] [address] [address]Dr. Jovanna Oneill CUT-OFFS SEE BELOW Normal [facility] Comment on above: Result Comment: AMP [...] Performed By: #### U MICRO, ERUR, DRUGRPD ####[facility] [address] [place], [place] [address]Dr. [facility] DRUG CUT HEADER DRUG CLASS TEST SYSTEM CUT-OFF CONCENTRATIONS ARE FOLLOWS: Normal [facility] Comment on above: Performed By: #### U MICRO, ERUR, DRUGRPD ####[facility] [address] [place], [place] [address]Dr. [facility] mAMP Negative Normal NEGATIVE [facility] Comment on above: Performed By: #### U MICRO, ERUR, DRUGRPD ####[facility] [address] [place], [place] [address]Dr. [facility] MTD Negative Normal NEGATIVE [facility] Comment on above: Performed By: #### U MICRO, ERUR, DRUGRPD ####[facility] [address] [place], [place] [address]Dr. [facility] OPI Positive Abnormal NEGATIVE [facility] Comment on above: Performed By: #### U MICRO, ERUR, DRUGRPD ####[facility] [address] [place], [place] [address]Dr. [facility] OXY Negative Normal NEGATIVE [facility] Comment on above: Performed By: #### U MICRO, ERUR, DRUGRPD ####[facility] [address] [place], [place] [address]Dr. [facility] PCP Negative Normal NEGATIVE [facility] Comment on above: Performed By: #### U MICRO, ERUR, DRUGRPD ####[facility] [address] [address]Dr. Rosaliareagan Oneill PPX Negative Normal NEGATIVE [facility] Comment on above: Performed By: #### U MICRO, ERUR, DRUGRPD ####[facility] [address] [address]Dr. Jovanna Oneill TCA Negative Normal NEGATIVE [facility] Comment on above: Performed By: #### U MICRO, ERUR, DRUGRPD ####[facility] [address] [address]Dr. Jovanna Oneill THC Positive Abnormal NEGATIVE [facility] Comment on above: Performed By: #### U MICRO, ERUR, DRUGRPD ####[facility] [address] [place], [place] [address]Dr. Jovanna Oneill ER URINE PROFILEon 2 Bilirubin Ql (U) Negative Normal NEGATIVE [facility] Comment on above: Performed By: #### U MICRO, ERUR, DRUGRPD ####[facility] [address] [place], [place] [address]Dr. Jovanna Oneill Clarity (U) CLEAR Normal CLEAR [facility] Comment on above: Performed By: #### U MICRO, ERUR, DRUGRPD ####[facility] [address] [place], [place] [address]Dr. Jovanna Oneill Color (U) LT. YELLOW Normal YELLOW [facility] Comment on above: Performed By: #### U MICRO, ERUR, DRUGRPD ####[facility] [address] [place], [place] [address]Dr. Jovanna Oneill ERUAHD A micrscopic examination will be performed if indicated. Normal [facility] Comment on above: Performed By: #### U MICRO, ERUR, DRUGRPD ####[facility] [address] [place], [place] [address]Dr. Jovanna Oneill Glucose Ql (U) >1000 Abnormal NEGATIVE [facility] Comment on above: Performed By: #### U MICRO, ERUR, DRUGRPD ####[facility] [address] [address]Dr. Jovanna Oneill Hemoglobin Ql (U) Negative Normal NEGATIVE The [facility] Comment on above: Performed By: #### U MICRO, ERUR, DRUGRPD ####[facility] [address] [address]Dr. Jovanna Oneill Ketones Ql (U) Negative Normal NEGATIVE [facility] Comment on above: Performed By: #### U MICRO, ERUR, DRUGRPD ####[facility] [address] [address]Dr. Jovanna Oneill LEUKOCYTES Negative Normal NEGATIVE [facility] Comment on above: Performed By: #### U MICRO, ERUR, DRUGRPD ####[facility] [address] [address]Dr. Jovanna Oneill Nitrite Ql (U) Negative Normal NEGATIVE [facility] Comment on above: Performed By: #### U MICRO, ERUR, DRUGRPD ####[facility] [address] [address]Dr. Rosaliareagan Oneill pH (U) 6.5 [pH] Normal 5-9 [facility] Comment on above: Performed By: #### U MICRO, ERUR, DRUGRPD ####[facility] [address] [address]Dr. Jovanna Oneill Protein (U) [Mass/Vol] 30 mg/dL Abnormal NEGATIVE/ TRACE The [facility] Comment on above: Performed By: #### U MICRO, ERUR, DRUGRPD ####[facility] [address] [address]Dr. Jovanna Oneill SPEC GRAVITY 1.015 Normal 1.005-<=1.025 The [facility] Comment on above: Performed By: #### U MICRO, ERUR, DRUGRPD ####[facility] [address] [address]Dr. Rosaliareagan Oneill UR MICRO IND INDICATED Normal [facility] Comment on above: Performed By: #### U MICRO, ERUR, DRUGRPD ####[facility] [address] [address]Dr. Jovanna Oneill Urobilinogen Qn (U) 1.0 {Isabella'U}/dL Normal 0.2 - 1. 0 [facility] Comment on above: Performed By: #### U MICRO, ERUR, DRUGRPD ####[facility] [address] [place], [place] [address]Dr. Jovanna Oneill LACTATE/LACTIC ACIDon 2021 Lactate [Moles/Vol] 1.7 mmol/L Normal 0.4-1.9 [facility] Comment on above: Performed By: #### L ACT #### [facility] [address] [address] [address] Jovanna Oneill PROF 14(COMP METB)on 022 Albumin [Mass/Vol] 3.4 g/dL Normal 3.4-5.0 [facility] Comment on above: Performed By: #### V ITB12 #### [facility] [address] [address] [address] Jovanna Oneill Albumin/Globulin [Mass ratio] 1.1 {ratio} Normal [facility] Comment on above: Performed By: #### V ITB12 #### [facility] [address] [address] [address] Jovanna Oneill ALP [Catalytic activity/Vol] 99 U/L Normal 46-116 [facility] Comment on above: Performed By: #### V ITB12 #### [facility] [address] [address] [address] Jovanna Oneill ALT [Catalytic activity/Vol] 32 U/L Normal 14-59 [facility] Comment on above: Performed By: #### V ITB12 #### [facility] [address] [address] [address] Jovanna Oneill Anion gap [Moles/Vol] 10.0 mmol/L Normal [facility] Comment on above: Performed By: #### V ITB12 #### [facility] [address] [address] [address] Jovanna Oneill AST [Catalytic activity/Vol] 38 U/L Critically high 15-37 [facility] Comment on above: Performed By: #### V ITB12 #### [facility] [address] [place] [address] Dr. Jovanna Oneill Bilirubin [Mass/Vol] 0.8 mg/dL Normal 0.2-1.0 [facility] Comment on above: Performed By: #### V ITB12 #### [facility] [address] [place] [address] Dr. Jovanna Oneill Calcium [Mass/Vol] 8.1 mg/dL Critically low 8.5-10.1 Th e [facility] Comment on above: Performed By: #### V ITB12 #### [facility] [address] [place] [address] Dr. Jovanna Oneill Chloride [Moles/Vol] 102 mmol/L Normal 98-107 [facility] Comment on above: Performed By: #### V ITB12 #### [facility] [address] [place] [address] Dr. Jovanna Oneill CO2 [Moles/Vol] 31.1 mmol/L Normal 21.0-32.0 [facility] Comment on above: Performed By: #### V ITB12 #### [facility] [address] [place] [address] Dr. Jovanna Oneill Creatinine [Mass/Vol] 0.78 mg/dL Normal 0.55-1.02 [facility] Comment on above: Performed By: #### V ITB12 #### [facility] [address] [place] [address] Dr. Jovanna Oneill EGFR-AF GEORGIAN >60 Normal >=60 [facility] Comment on above: Performed By: #### V ITB12 #### [facility] [address] [place] [address] Dr. Jovanna Oneill EGFR-NON AF GEORGIAN >60 Normal >=60 [facility] Comment on above: Performed By: #### V ITB12 #### [facility] [address] [place] [address] Dr. Jovanna Oneill Globulin (S) [Mass/Vol] 3.2 g/dL Normal [facility] Comment on above: Performed By: #### V ITB12 #### [facility] [address] [address] [address] Jovanna Oneill Glucose [Mass/Vol] 251 mg/dL Critically high 74-106 [facility] Comment on above: Performed By: #### V ITB12 #### [facility] [address] [place] [address] Dr. Jovanna Oneill Potassium [Moles/Vol] 3.1 mmol/L Critically low 3.5-5.1 [facility] Comment on above: Performed By: #### V ITB12 #### [facility] [address] [place] [address] Dr. Jovanna Oneill Protein [Mass/Vol] 6.6 g/dL Normal 6.4-8.2 [facility] Comment on above: Performed By: #### V ITB12 #### [facility] [address] [place] [address] Dr. Jovanna Oneill Sodium [Moles/Vol] 140 mmol/L Normal 136-145 [facility] Comment on above: Performed By: #### V ITB12 #### [facility] [address] [place] [address] Dr. Jovanna Oneill Urea nitrogen [Mass/Vol] 8.0 mg/dL Normal 7.0-18.0 [facility] Comment on above: Performed By: #### V ITB12 #### [facility] [address] [place] [address] Dr. Jovanna Oneill Urea nitrogen/Creatinine [Mass ratio] 10.3 mg/mg Normal [facility] Comment on above: Performed By: #### V ITB12 #### [facility] [address] [place] [address] Dr. Jovanna Oneill TROPONIN, HIGH SENSITIVITYon 04-20-2022 HSTROP 13.8 pg/mL Normal 4.0-51.3 [facility] Comment on above: Result Comment: CUT- OFF POINTS HAVE BEEN ESTABLISHED BASED ON THE FOURTH UNIVERSAL DEFINITIONS OF MYOCARDIAL INFARCTION. THE UPPER REFERENCE LIMIT (URL) OF TROPONIN, DEFINED THE 99TH PERCENTILE OF cTnI DISTRIBUTION IN A REFERENCE POPULATION, HAS BEEN CONFIRMED THE DECISION THRESHOLD FOR CO DIAGNOSIS. Performed By: #### V ITB12 #### [facility] [address] [address] [address] Jovanna Oneill URINE MICROSCOPIC ONLYon BACTERIA TRACE Abnormal NONE SEEN [facility] Comment on above: Performed By: #### U MICRO, ERUR, DRUGRPD ####[facility] [address] [address]Dr. Jovanna Oneill Bacteria identified Cx Nom (U) NOT INDICATED Normal [facility] Comment on above: Performed By: #### U MICRO, ERUR, DRUGRPD ####[facility] [address] [address]Dr. Jovanna Oneill CAST SEEN Abnormal NONE SEEN [facility] Comment on above: Performed By: #### U MICRO, ERUR, DRUGRPD ####[facility] [address] [address]Dr. Jovanna Oneill Crystals LM Nom (Urine sed) NONE SEEN Normal NONE SEEN [facility] Comment on above: Performed By: #### U MICRO, ERUR, DRUGRPD ####[facility] [address] [address]Dr. Jovanna Oneill Epithelial cells LM Ql (Urine sed) FEW Abnormal NONE SEEN /RARE [facility] Comment on above: Performed By: #### U MICRO, ERUR, DRUGRPD ####[facility] [address] [address]Dr. Jovanna Oneill HYALINE CAST FEW Normal [facility] Comment on above: Performed By: #### U MICRO, ERUR, DRUGRPD ####[facility] [address] [address]Dr. Jovanna Oneill MUCOUS NONE SEEN Normal NONE SEEN [facility] Comment on above: Performed By: #### U MICRO, ERUR, DRUGRPD ####[facility] [address] [address]Dr. Jovanna Oneill RBC 0-2 Normal 0-2 [facility] Comment on above: Performed By: #### U SCOTT GARCIA DRUGRPD ####[facility] [address] [place], [place] [address]Oe. Jovanna Oneill WBC 0-2 Abnormal NONE SEEN [facility] Comment on above: Performed By: #### U ANDRIY GARCIAR, DRUGRPD ####[facility] [address] [place], [place] [address]Jl. Jovanna Oneill XR CHEST 1 Von 04-20-2022 [...] by: Ayaka LEON Date: 2022-04-20 02:33 Normal [facility] XR ANKLE RT MIN 3 VIEWSon [...] by: KOBE HICKEY Date: 2022-03-26 09:41 Normal [facility] Encounters Encounter Date Encounter Type Care [...] SHAMMO Facility:[facility]1 Start: 11-01-2022 ambulatory TATUM SHAMMO Facility:[facility] Start: 10-08-2022 End: 10-08-2022 ambulatory TATUM SHAMMO Facility:[facility] Start: 10-06-2022 ambulatory Woo FALCON Facility :[facility] Start: 10-03-2022 End: 10-04-2022 ambulatory TATUM SHAMMO Facility:[facility] Start: 09-14-2022 Encounter for genera l adult medical examination without abnormal findings TATUM SHAMMO [facility] Start: 09-12-2022 End: 09-13-2022 ambulatory TATUM [...] Facility:H1 Start: 06-22-2022 End: 06-22-2022 ambulatory [facility] Facility:[facility] Start: 05-02-2022 End: 05-02-2022 ambulatory [facility] Facility:[facility] Start: 04-20-2022 End: 04-20-2022 ambulatory CAROL ANN ALIA Facility:[facility] Start: 03-26-2022 End: 03-26-2022 ambulatory DARRIN PEREZ . Facility: Payers Date Payer Category Payer Unknown [id number] 2.16.8 [id number] 1975 Unknown [id number] 2.16.8 [id number] 1973 Unknown [id number] 2.16.84 0.1.831342.3.579.2.593 1973 Unknown [id number] 2.16.84 0.1.755120.3.579.2.593 1973 Unknown [id number] 2.16.84 0.1.251482.3.579.2.593 1973 Unknown [id number] 2.16.84 0.1.178081.3.579.2.593 1973 Unknown [id number] 2.16.84 0.1.101969.3.579.2.593 1973 Unknown [id number] 2.16.84 0.1.042452.3.579.2.593 1973 Unknown [id number] 2.16.84 0.1.193016.3.579.2.593 1973 Unknown [id number] 2.16.84 0.1.660127.3.579.2.593 1973 Unknown [id number] 2.16.84 0.1.284060.3.579.2.593 1973 Unknown [id number] 2.16.84 0.1.330577.3.579.2.593 1973 Unknown [id number] 2.16.84 0.1.476995.3.579.2.593 1973 Unknown [id number] 2.16.84 0.1.531938.3.579.2.593 1973 Unknown [id number] 2.16.84 0.1.314896.3.579.2.593 1973 Unknown [id number] 2.16.84 0.1.477389.3.579.2.593 1973 Unknown [id number] 2.16.84 0.1.648849.3.579.2.593 1973 Unknown [id number] 2.16.84 0.1.559786.3.579.2.593 1973 Unknown [id number] 2.16.84 0.1.929416.3.579.2.593 1973 Unknown [id number] 2.16.84 0.1.807187.3.579.2.593 1973 Unknown [id number] 2.16.84 0.1.509138.3.579.2.593 1973 Unknown [id number] 2.16.84 0.1.793751.3.579.2.593 1973 Unknown [id number] 2.16.84 0.1.217770.3.579.2.593 1973 Unknown [id number] 2.16.84 0.1.527604.3.579.2.593 1959 Self-pay [id number] 1959 Unknown [id number] 1961 Unknown [id number] Clinical Note 03-05-2023 Note Date & Type [...] by: FRANCES AGUSTIN Date: 2023-03-05 11:36 [facility] Note 08-30-2022 Note Date & [...] by: FRANCES AGUSTIN Date: 2022-08-30 10:20 [facility] Note 08-30-2022 Note Date & [...] by: FRANCES AGUSTIN Date: 2022-08-30 10:20 [facility] Note 06-22-2022 Note Date & [...] authenticated by: RJ YANEZ Date: 2022-06-22 07:13 [facility] Clinical Note 06-22-2022 Note Date [...] by: RJ YANEZ Date: 2022-06-22 07:13 [facility] Summary Purpose Family History No Family History Records FoundNo Family History Records Found Advance Directives No Advanced Directives Records FoundNo Advanced Directives Records Found Additional Source Comments INFORMATION SOURCE (unrecogn ized section and content) DATE CREATED AUTHOR 10/24/2022 Soham Syed [facility] DATE CREATED AUTHOR AUTHOR'Misti ARCE 03/24/2023 Alis [...] BE BASED ON THE PRIMARY CLINICAL RECORDS. [facility] [employer], [facility]. provides no warranty or guarantee of the accuracy or completeness of information in this document.
--- NOTE | 2024-05-18 23:50 | ED_ITS ---
HPI HPI - Extremity Injury (Upper) General Chief Complaint: Extremity Injury, Upper Stated Complaint: RT HAND INJURY Time Seen by Provider: 05/18/24 23:09 Source: patient Mode of arrival: walk-in Limitations: no limitations History of Present Illness HPI narrative: 48-year-old female presents for a laceration and injury to her right index finger. This occurred just before coming into the emergency department when her 5-year-old grandchild accidentally shot the door on her finger. The other fingers are unaffected. The pain is severe and continuous. She has had a tetanus shot within the last 10 years. Related Data Previous Rx's ?Medication ?Instructions ?Recorded budesonide-formoterol HFA 80 2 inh inhalation BID #10.2 grams 04/25/24 mcg-4.5 mcg/actuation aerosol inhaler gabapentin 600 mg tablet 600 mg PO TID 7 days #21 tabs 04/25/24 ketorolac 10 mg tablet 10 mg PO TID PRN pain #10 tabs 04/25/24 losartan 100 1 tab PO DAILY 30 days #30 tabs 04/25/24 mg-hydrochlorothiazide 25 mg tablet methocarbamol 750 mg tablet 750 mg PO TID PRN pain #20 tabs 04/25/24 pantoprazole 40 mg tablet,delayed 40 mg PO BID 30 days #60 tabs 04/25/24 release cephalexin 500 mg capsule 500 mg PO TID 7 days #21 caps 05/19/24 hydrocodone 5 mg-acetaminophen 325 1 tab PO Q6H PRN pain 5 days #20 05/19/24 mg tablet tabs Allergies Allergy/AdvReac Type Severity Reaction Status Date / Time No Known Drug Allergies Allergy Verified 04/25/24 19:20 Opioid HPI Opioid Management Most Recent Pain and Opioid Data: Last Pain Scale 9 10/15/23 01:31 Review of Systems ROS Narrative A ten point review of systems is negative except as noted above. [facility] Medical History (Updated 05/19/24 @ 00:38 by Stevan Casillas MD) Anxiety and depression ?F41.9 - Anxiety disorder, unspecified (ICD-10) ?F32.A - Depression, unspecified (ICD-10) HTN (hypertension) ?I10 - Essential (primary) hypertension (ICD-10) Bulging of cervical intervertebral disc ?M50.30 - Other cervical disc degeneration, unspecified cervical region (ICD- 10) Osteoporosis ?M81.0 - Age-related osteoporosis without current pathological fracture (ICD- 10) Social History Smoking status: Current every day smoker Exam Narrative Exam Narrative: Nurses note and vital signs reviewed and patient is not hypoxic. General: The patient is tearful. She is holding a washcloth around her right hand Skin: Warm, dry, no pallor noted. There is no rash noted. Head: Normocephalic, atraumatic Eye: Normal conjunctiva, no drainage Ears, Nose, Mouth, and Throat: oral mucosa is moist. Nares patent. Cardiovascular: Regular Rate and Rhythm mildly tachycardic Respiratory: Patient is in no distress, no accessory muscle use, lungs are clear to auscultation, no wheezing, rales or rhonchi Back: non-tender GI: Soft and nontender Musculoskeletal: The right hand is examined. She has a 3 cm laceration distally of the right index finger. PIP function is intact. She is unable to flex at the DIP. No active bleeding or foreign bodies noted. Neurological: Awake and alert Psychiatric: Cooperative Constitutional Vital Signs, click to edit/add: Last Vital Signs Temp 98.6 F 05/18/24 23:14 Pulse 111 H 05/18/24 23:14 Resp 18 05/18/24 23:14 BP 157/99 H 05/19/24 00:02 Pulse Ox 99 05/18/24 23:14 O2 Del Method Room Air 05/18/24 23:14 Course Vital Signs Vital signs: Vital Signs Temperature 98.6 F 05/18/24 23:14 Pulse Rate 111 H 05/18/24 23:14 Respiratory Rate 18 05/18/24 23:14 Blood Pressure 168/120 H 05/18/24 23:14 Pulse Oximetry 99 05/18/24 23:14 Oxygen Delivery Method Room Air 05/18/24 23:14 Temperature 98.6 F 05/18/24 23:14 Pulse Rate 111 H 05/18/24 23:14 Respiratory Rate 18 05/18/24 23:14 Blood Pressure 157/99 H 05/19/24 00:02 Pulse Oximetry 99 05/18/24 23:14 Oxygen Delivery Method Room Air 05/18/24 23:14 MDM - Extremity Injury (Upper) MDM Narrative Medical decision making narrative: The patient has an open right index finger distal phalangeal fracture. It has been closed and the possible need for surgery was discussed with the patient. Tube gauze dressing applied, application checked by me and found to be appropriate, she is neurovascularly intact. She will see Dr. Johansen later today. The following procedure was performed by me. Marcaine finger block was applied resulting in complete skin anesthesia. The area was prepped with Betadine x 3 and draped sterilely and explored for foreign bodies and none were found. It was then closed with seven 5-0 Ethilon sutures resulting in good skin reapproximation and good hemostasis. No complications. Differential Diagnosis Differential diagnosis: Likely other (Laceration, fracture, open fracture) Imaging Data Right hand x-ray: Radiologist's impression: ITS Impressions Hand X-Ray 05/18/24 23:24 IMPRESSION: 1. Right second finger distal phalangeal fracture as described. Electronically authenticated by: Ayaka LEON Date: 05/19/2024 00:17 Discharge Plan Discharge Stand Alone Forms: Portal Instructions Chief Complaint: Extremity Injury, Upper Clinical Impression: Open fracture of finger of right hand Patient Disposition: Home, Self-Care Time of Disposition Decision: 00:38 Condition: Good Mode of Transportation: Private Vehicle Prescriptions / Home Meds: New cephalexin 500 mg capsule 500 mg PO TID 7 Days Qty: 21 0RF hydrocodone-acetaminophen 5-325 mg tablet 1 tab PO Q6H PRN (Reason: pain) 5 Days Qty: 20 0RF No Action budesonide-formoterol 80-4.5 mcg/actuation HFA aerosol inhaler 2 inh inhalation BID Qty: 10.2 0RF ketorolac 10 mg tablet 10 mg PO TID PRN (Reason: pain) Qty: 10 0RF methocarbamol 750 mg tablet 750 mg PO TID PRN (Reason: pain) Qty: 20 0RF gabapentin 600 mg tablet 600 mg PO TID 7 Days Qty: 21 0RF losartan-hydrochlorothiazide 100-25 mg tablet 1 tab PO DAILY 30 Days Qty: 30 0RF pantoprazole 40 mg tablet,delayed release (DR/EC) 40 mg PO BID 30 Days Qty: 60 0RF Print Language: Monegasque Instructions: Finger Fracture (ED) Additional Instructions: Leave dressing on until you see Dr. Johansen today. You will be contacted about the time. Referrals: Physician,Non-Staff, MD [Primary Care Provider] - 1 week
[2024-05-19 00:02] VITALS: BP 157/99
[2024-05-19] MEDS: BUPIVACAINE HCL 0.5% PF 50 MG/10 ML VIAL INJ (00:19)
[2024-05-19] MEDS: CEPHALEXIN 500 MG CAPSULE PO (01:05)
== END 2024-05-19 01:11 | disposition home or self-care (01) ==
PROVIDERS: Emergency Provider Emergency Medicine
DX: S62.630B Displaced fracture of distal phalanx of right index finger, initial encounter for open fracture (principal); W23.0XXA Caught, crushed, jammed, or pinched between moving objects, initial encounter; F17.200 Nicotine dependence, unspecified, uncomplicated
CPT/HCPCS: 12002; 73130; 99284; J0665

== ENCOUNTER 2024-05-22 13:54 | Outpatient (OUT) | payer OTHER, SELFPAY ==
--- NOTE | 2024-05-22 | ECG_ITS ---
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
== END 2024-05-22 13:55 | disposition home or self-care (01) ==
LOC: CARD 13:54
PROVIDERS: Visit Provider Student in an Organized Health Care Education/Training Program
DX: Z01.810 Encounter for preprocedural cardiovascular examination (principal); S62.600A Fracture of unspecified phalanx of right index finger, initial encounter for closed fracture
CPT/HCPCS: 93005

== ENCOUNTER 2024-05-28 12:34 | Outpatient (OUT) | payer OTHER, SELFPAY ==
--- NOTE | 2024-05-28 12:41 | ECG_ITS ---
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
--- NOTE | 2024-05-28 12:41 | XR_ITS ---
The [address] [address] Patient Name: SULY THORNE MRN: [id number] date: 1975 Sex: F Assigned Patient Location: [facility] [[email or web address] Current Patient Location: Accession/Order Number: [id number] Exam Date: 05/28/2024 13:25 Report Date: 05/29/2024 05:18 At the request of: SANTO LOEPZ Procedure: XR chest 2V EXAMINATION: XR chest 2V HISTORY: Preop exam COMPARISON: XR chest 02/05/2022 FINDINGS: LUNGS: Slightly increased opacity over bilateral lung bases on the frontal view is suspected to be due to anterior soft tissue summation artifact; no corresponding findings on the lateral view. Hyperexpanded lungs suggestive of COPD. VASCULATURE: No increased pulmonary vasculature. PLEURA: No pneumothorax, effusion, or pleural thickening. CARDIAC: No cardiomegaly or cardiac silhouette abnormality. MEDIASTINUM: No visible mass or adenopathy. BONES: No fracture or visible bone lesion. OTHER: Negative. XR/XR chest 2V IMPRESSION: 1. Hyperexpanded lungs suggestive COPD. 2. No convincing acute infiltrates. Electronically authenticated by: FRANCES AGUSTIN Date: 05/29/2024 05:18
[2024-05-28 14:18] LABS: Basophils Percent Auto 0.4 % (0.2-2.0); Eosinophils Absolute Auto 0.1 10^3/uL (0.0-0.7); Eosinophils Percent Auto 1.1 % (0.9-7.0); Hematocrit 37.2 % (36.0-48.0); Hemoglobin 12.3 g/dL (12.0-16.0); Immature Granulocytes Abs Auto 0.03 10^3/uL (0.00-0.03); Immature Granulocytes Pct Auto 0.4 % (0.0-0.5); Lymphocytes Absolute Auto 2.4 10^3/uL (1.2-3.8); Mean Corpuscular HGB Conc 33.1 g/dL (29.9-35.2); Mean Corpuscular Hemoglobin 31.8 pg (26.7-34.0); Mean Corpuscular Volume 96.1 fL (81.0-99.0); Mean Platelet Volume 10.7 fL (9.5-13.5); Monocytes Absolute Auto 0.5 10^3/uL (0.3-0.8); Monocytes Percent Auto 5.6 % (1.7-12.0); Neutrophils Absolute Auto 5.2 10^3/uL (1.4-6.5); Neutrophils Percent Auto 63.5 % (43.0-75.0); Platelet Count 235 10^3/uL (150-450); Red Blood Count 3.87 10^6/uL (4.20-5.40); Red Cell Distribution Width 12.6 % (11.0-15.0); White Blood Count 8.2 10^3/uL (4.0-11.0)
[2024-05-28 15:01] LABS: Anion Gap 11.8; BUN Creatinine Ratio 8.1; Calcium 8.5 mg/dL (8.5-10.1); Carbon Dioxide 28.7 mmol/L (21.0-32.0); Chloride 104 mmol/L (98-107); Estimated GFR (African America >60 (>=60); Estimated GFR (Non-African Ame >60 (>=60); Glucose 54 mg/dL (74-106); Sodium 142 mmol/L (136-145)
[2024-05-28 15:03] LABS: Potassium 2.5 mmol/L (3.5-5.1)
== END 2024-05-28 12:35 | disposition home or self-care (01) ==
LOC: PST 12:34
PROVIDERS: Visit Provider Student in an Organized Health Care Education/Training Program
DX: Z01.810 Encounter for preprocedural cardiovascular examination (principal); Z01.812 Encounter for preprocedural laboratory examination; Z01.818 Encounter for other preprocedural examination; S62.630B Displaced fracture of distal phalanx of right index finger, initial encounter for open fracture
CPT/HCPCS: 71046; 80048; 85025; 87081; 93005

== ENCOUNTER 2024-06-02 08:17 | Day surgery (SDC) | payer OTHER, SELFPAY ==
[2024-05-28 13:15] VITALS: BP 157/99; PULSE 58; TEMP 36.4; O2SAT 99; BMI 20.4
[2024-06-02] VITALS (10 sets, daily range): BP systolic 146–175; BP diastolic 92–107; PULSE 73–91; TEMP 36.2; O2SAT 92–100; BMI 19.8
--- NOTE | 2024-06-02 08:30 | ECG_ITS ---
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
--- OUTSIDE RECORDS SUMMARY | 2024-06-02 08:32 | XMS_ITS ---
Patient Summarization (C-CDA 2.1 CCD) Created on: June 02, 2024 SULY THORNE : 1975 Sex: Female Author Organization Sample organization Care Team Providers Care Morgue Keeper Name Role Phone Woo FALCON Attending Unavailable SHAMMO, TATUM Referring Unavailable SHAMMO, TATUM Referring Unavailable NILWoo Newman Attending Unavailable LAKSHMIPATHY ., NARENDRANATH Admitting Birdie vailable LAKSHMIPATHY ., NARENDLILIAN Attending Birdie vailable SHAMMO, TATUM Primary Care Unavailable TAMLYN ., ABDULKADIR Admitting Unavailable TAMLYN ., ABDULKADIR Attending Unavailable SHAMMO, TATUM Primary Care Unavailable TAMLYN ., ABDULKADIR Consulting Unavailable ROSALINDA TEMPLETON Consulting Unavailable SHAMMO, TATUM Primary Care Unavailable [...] Attending Unavailable SHAMMO, TATUM Primary Care Unavailable WEST, DR RJ Foster Consulting Unavailable SHAMMO, TATUM Consulting Unavailable ANA ., DARRIN Consulting Unavailable ANA ., DARRIN Attending Unavailable ANA ., DARRIN [facility]mitting [facility] Unavailable KOBE HICKEY Consulting Unavailable MARKER ., DR MAX Attending Unavailable MARKER ., DR MAX Admitting Unavailable MARKER ., DR MAX Consulting Unavailable [facility] Primary Care Unavailable LEON, JIMMY Consulting Unavailable SHAMMO, TATUM Primary Care Unavailable SAI, VAUGHN Admitting Unavailable SAI, VAUGHN Attending Unavailable SAI, VAUGHN Consulting Unavailable WOO PAIGE Consulting Unavailable SHAMMO, TATUM Consulting [facility]available [facility] Primary Care Unavailable SAI, VAUGHN Admitting Unavailable SAI, VAUGHN Attending Unavailable WEST, DR RJ Foster Consulting Unavailable HAY ., DR BIRD Consulting Unavailable SAI, VAUGHN Consulting Unavailable ALIA, CAROL ANN Admitting Unavailable ALIA, CAROL ANN Attending Unavailable [facility] Primary Care Unavailable SHAMMO, TATUM Admitting Unavailable SHAMMO, TATUM Attending Unavailable SHAMMO, TATUM Primary Care Unavailable SHAMMO, TATUM Consulting Unavailable [facility] Primary Care Unavailable LUIS EDUARDO, DR LAYA Bryan Admitting Unavailable LUIS EDUARDO, DR LAYA Bryan Attending Unavailable LUIS EDUARDO, DR LAYA Bryan Consulting Unavailable EDWARD, JIMMY Consulting Unavailable SANTO LOPEZ Admitting Unavailable SANOT LOPEZ Attending Unavailable Allergies Allergy Classification Reported Allergen(s) Allergy Type Date of Onset Reaction(s) Facility (1 source) No Known Medication Allergies; Translations: [No Known Medication Allergies] Propensity to adverse reactions (disorder) [facility] Repository Encounters Encounter Date Encounter Type Care Provider Facility Start: 05-26-2024 ambulatory [facility] Start: 05-26-2024 Encounter for other preprocedural examination SANTO Garcia [facility] Start: 03-23-2023 End: 03-23-2023 ambulatory ABDULKADIR CHARLOTTERyland . Facility:[facility] Start: 03-05-2023 End: 03-06-2023 ambulatory TATUM SHAMMO Facility:[facility] Start: 02-23-2023 End: 02-23-2023 ambulatory TATUM SHAMMO Facility:[facility] Start: 02-20-2023 End: 02-21-2023 ambulatory TATUM SHAMMO Facility:[facility] Start: 01-29-2023 End: 01-30-2023 ambulatory NARENDRANATH LAKSHMIPATHY . Facility:[facility] Start: 01-12-2023 End: 01-13-2023 ambulatory TATUM SHAMMO Facility:[facility] Start: 01-04-2023 ambulatory NARENDRANATH LAKSHMIPATHY . Facility:[facility] Start: 11-15-2022 End: 11-15-2022 ambulatory TATUM SHAMMO Facility:[facility] Start: 11-01-2022 ambulatory TATUM SHAMMO Facility:[facility] Start: 10-08-2022 End: 10-08-2022 ambulatory TATUM SHAMMO Facility:[facility] Start: 10-06-2022 ambulatory Woo FALCON Facility :[facility] Start: 10-03-2022 End: 10-04-2022 ambulatory TATUM SHAMMO Facility:[facility] Start: 09-14-2022 Encounter for genera l adult medical examination without abnormal findings TATUM SHAMMO [facility] Start: 09-12-2022 End: 09-13-2022 ambulatory TATUM SHAMMO Facility:[facility] Start: 09-12-2022 End: 09-13-2022 Encounter for general adult medical examination without abnormal findings TATUM SHAMMO Facility:[facility] Start: 08-29-2022 End: 08-30-2022 ambulatory TATUM SHAMMO Facility:[facility] Start: 08-24-2022 End: 08-24-2022 ambulatory TATUM SHAMMO Facility:[facility] Start: 08-16-2022 End: 08-17-2022 ambulatory TATUM SHAMMO Facility:[facility] Start: 08-16-2022 End: 08-17-2022 ambulatory CAROL ANN ROJO Facility:[facility] Start: 06-22-2022 End: 06-22-[address] [facility] Facility:[facility] Start: 05-02-2022 End: 05-02-[address] [facility] Facility:[facility] Start: 04-20-2022 End: 04-20-2022 ambulatory CAROL ANN CHRISARI Facility:[facility] Start: 03-26-2022 End: 03-26-2022 ambulatory DARRIN ANA . Facility:[facility] Payers Date Payer Category Payer Unknown [id number] 2.16.8 [id number] 1975 Unknown [id number] 2.16.8 [id number] 1975 Unknown [id number] 2.16.84 0.1.286881.3.579.2.593 1975 Unknown [id number] 2.16.84 0.1.880103.3.579.2.593 1975 Unknown [id number] 2.16.84 0.1.584055.3.579.2.593 1975 Unknown [id number] 2.16.84 0.1.512442.3.579.2.593 1975 Unknown [id number] 2.16.84 0.1.695314.3.579.2.593 1975 Unknown [id number] 2.16.84 0.1.281983.3.579.2.593 1975 Unknown [id number] 2.16.84 0.1.371624.3.579.2.593 1975 Unknown [id number] 2.16.84 0.1.326984.3.579.2.593 1975 Unknown [id number] 2.16.84 0.1.692303.3.579.2.593 1975 Unknown [id number] 2.16.84 0.1.027943.3.579.2.593 1975 Unknown [id number] 2.16.84 0.1.484978.3.579.2.593 1975 Unknown [id number] 2.16.84 0.1.403644.3.579.2.593 1975 Unknown [id number] 2.16.84 0.1.859068.3.579.2.593 1975 Unknown [id number] 2.16.84 0.1.758753.3.579.2.593 1975 Unknown [id number] 2.16.84 0.1.438850.3.579.2.593 1975 Unknown [id number] 2.16.84 0.1.614690.3.579.2.593 1975 Unknown [id number] 2.16.84 0.1.698925.3.579.2.593 1975 Unknown [id number] 2.16.84 0.1.288555.3.579.2.593 1975 Unknown [id number] 2.16.84 0.1.864054.3.579.2.593 1975 Unknown [id number] 2.16.84 0.1.165336.3.579.2.593 1975 Unknown [id number] 2.16.84 0.1.076232.3.579.2.593 1975 Unknown [id number] 2.16.84 0.1.645627.3.579.2.593 1975 Unknown [id number] 2.16.8 40.1.003270.3.579.2.174 1961 Self-pay [id number] 1961 Unknown [id number] 1961 Unknown [id number] Problems Active Problems Problem Classification Problem Date [...] 01-15-2023 Chronic Other aftercare (1 source) 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 Jovanna Oneill TSH W/ REFLEX TO FT4on 02-20 TSH 5.032 uIU/mL Critically high 0.358-3.740 [facility] Comment on above: Performed By: #### L ACT #### [facility] [address] [address] [address] Jovanna Oneill RESPIRATORY PANEL PLUSon Adenovirus Not detected Normal NOT DETECTED [facility] Comment on above: Performed By: #### R SPLUS ####[facility] [address] [address]Dr. Jovanna Oneill B. Parapertusis Not detected Normal NOT DETECTED [facility] Comment on above: Performed By: #### R SPLUS ####[facility] [address] [address]Dr. Jovanna Oneill B. Pertussis Not detected Normal NOT DETECTED [facility] Comment on above: Performed By: #### R SPLUS ####[facility] [address] [address]Dr. Jovanna Oneill Chlamydia Pneumoniae Not detected Normal NOT DETECTED [facility] Comment on above: Performed By: #### R SPLUS ####[facility] [address] [address]Dr. Jovanna Oneill Coronavirus 229E Not detected Normal NOT DETECTED [facility] Comment on above: Performed By: #### R SPLUS ####[facility] [address] [address]Dr. Jovanna Oneill Coronavirus HKU1 Not detected Normal NOT DETECTED [facility] Comment on above: Performed By: #### R SPLUS ####[facility] [address] [address]Dr. Jovanna Oneill Coronavirus NL63 Not detected Normal NOT DETECTED [facility] Comment on above: Performed By: #### R SPLUS ####[facility] [address] [address]Dr. Jovanna Oneill Coronavirus OC43 Not detected Normal NOT DETECTED [facility] Comment on above: Performed By: #### R SPLUS ####[facility] [address] [place], [place] [address]Dr. Jovanna Oneill Influenza A H1 Not detected Normal NOT DETECTED [facility] Comment on above: Performed By: #### R SPLUS ####[facility] [address] [place], [place] [address]Dr. Jovanna Oneill Influenza A H1 2009 Not detected Normal NOT DETECTED [facility] Comment on above: Performed By: #### R SPLUS ####[facility] [address] [place], [place] [address]Dr. Jovanna Oneill Influenza A H3 Not detected Normal NOT DETECTED [facility] Comment on above: Performed By: #### R SPLUS ####[facility] [address] [place], [place] [address]Dr. Jovanna Oneill Influenza B Not detected Normal NOT DETECTED The [facility] Comment on above: Performed By: #### R SPLUS ####[facility] [address] [place], [place] [address]Dr. Jovanna Oneill Metapneumovirus Not detected Normal NOT DETECTED [facility] Comment on above: Performed By: #### R SPLUS ####[facility] [address] [place], [place] [address]Dr. Rosaliareagan Oneill Mycoplas. Pneumoniae Not detected Normal NOT DETECTED [facility] Comment on above: Performed By: #### R SPLUS ####[facility] [address] [place], [place] [address]Dr. Jovanna Oneill Parainfluenza 1 Not detected Normal NOT DETECTED [facility] Comment on above: Performed By: #### R SPLUS ####[facility] [address] [place], [place] [address]Dr. Jovanna Oneill Parainfluenza 2 Not detected Normal NOT DETECTED [facility] Comment on above: Performed By: #### R SPLUS ####[facility] [address] [place], [place] [address]Dr. Jovanna Oneill Parainfluenza 3 Not detected Normal NOT DETECTED [facility] Comment on above: Performed By: #### R SPLUS ####[facility] [address] [place], [place] [address]Dr. Jovanna Oneill Parainfluenza 4 Not detected Normal NOT DETECTED [facility] Comment on above: Performed By: #### R SPLUS ####[facility] [address] [place], [place] [address]Dr. Jovanna Oneill Rhino/Enterovirus Not detected Normal NOT DETECTED [facility] Comment on above: Performed By: #### R SPLUS ####[facility] [address] [place], [place] [address]Dr. Jovanna Oneill RP2 Header 1 RESPIRATORY PANEL: VIRUSES Normal [facility] Comment on above: Performed By: #### R SPLUS ####[facility] [address] [place], [place] [address]Dr. Jovanna Oneill RP2 Header 2 RESPIRATORY PANEL: BACTERIA Normal [facility] Comment on above: Performed By: #### R SPLUS ####[facility] [address] [place], [place] [address]Dr. Jovanna Oneill RSV Not detected Normal NOT DETECTED [facility] Comment on above: Performed By: #### R SPLUS ####[facility] [address] [place], [place] [address]Dr. Jovanna Oneill SARS-CoV-2 (COVID-19) RNA DUC+probe Ql (Unsp spec) Not detected Normal NOT DETECTED [facility] Comment on above: Performed By: #### R SPLUS ####[facility] [address] [place], [place] [address]Dr. Jovanna Oneill MG MAMM SCREEN 3D CHELLY CADon 01-12-2023 MG MAMM SCREEN 3D CHELLY CAD Patient: SULY THORNE Exam Date: 01/12/2023 : 1975 Gender:F Ordering : TATUM ONOFRE Admission #: [id number] Family : Order #: [id number] CLICK HERE TO VIEW EXAM RADIOLOGY REPORT [...] cervical cancer at age 40. LOCATION: [facility] BREAST COMPOSITION: Almost entirely fatty. FINDINGS: [...] Yanez MD on 01/12/2023 at 12:42 Normal [facility] XR DEXA BONE DENSITYon 01-12 XR DEXA [...] by: RJ YANEZ Date: 2023-01-12 17:10 Normal [facility] GABAPENTIN URINEon Gabapentin, Urine Negative Normal [facility] Comment on above: Performed By: #### G ABAP ####[facility] [address] [address]Dr. Jovanna Oneill DRUG SCREEN RAPID (URINE)on 11-14-2022 AMP Negative Normal NEGATIVE [facility] Comment on above: Performed By: #### V ITB12 #### [facility] [address] [address] [address] Jovanna Oneill BAR Negative Normal NEGATIVE [facility] Comment on above: Performed By: #### V ITB12 #### [facility] [address] [address] [address] Jovanna Oneill BUP Negative Normal NEGATIVE [facility] Comment on above: Performed By: #### V ITB12 #### [facility] [address] [address] [address] Jovanna Oneill BZO Negative Normal NEGATIVE [facility] Comment on above: Performed By: #### V ITB12 #### [facility] [address] [address] [address] Jovanna Oneill CARA Negative Normal NEGATIVE [facility] Comment on above: Performed By: #### V ITB12 #### [facility] [address] [address] [address] Jovanna Oneill CUT-OFFS SEE BELOW Normal [facility] Comment on above: Result Comment: [...] ng/mL Performed By: #### V ITB12 #### [facility] [address] [address] [address] Jovanna Oneill DRUG CUT HEADER DRUG CLASS TEST SYSTEM CUT-OFF CONCENTRATIONS ARE FOLLOWS: Normal [facility] Comment on above: Performed By: #### V ITB12 #### [facility] [address] [place] [address] Dr. Jovanna Oneill mAMP Negative Normal NEGATIVE [facility] Comment on above: Performed By: #### V ITB12 #### [facility] [address] [place] [address] Dr. Jovanna Oneill MTD Negative Normal NEGATIVE [facility] Comment on above: Performed By: #### V ITB12 #### [facility] [address] [place] [address] Dr. Jovanna Oneill OPI Positive Abnormal NEGATIVE [facility] Comment on above: Performed By: #### V ITB12 #### [facility] [address] [place] [address] Dr. Jovanna Oneill OXY Negative Normal NEGATIVE [facility] Comment on above: Performed By: #### V ITB12 #### [facility] [address] [place] [address] Dr. Jovanna Oneill PCP Negative Normal NEGATIVE [facility] Comment on above: Performed By: #### V ITB12 #### [facility] [address] [place] [address] Dr. Jovanna Oneill PPX Negative Normal NEGATIVE [facility] Comment on above: Performed By: #### V ITB12 #### [facility] [address] [place] [address] Dr. Jovanna Oneill TCA Negative Normal NEGATIVE [facility] Comment on above: Performed By: #### V ITB12 #### [facility] [address] [place] [address] Dr. Jovanna Oneill THC Positive Abnormal NEGATIVE [facility] Comment on above: Performed By: #### V ITB12 #### [facility] [address] [place] [address] Dr. Jovanna Oneill CBC AUTO DIFFon 10-08-2022 BASO # 0.0 103/ul Normal 0.0-0.1 [facility] Comment on above: Performed By: #### C BC #### [facility] [address] [place] [address] Dr. Jovanna Oneill Basophils/100 WBC (Bld) 0.4 % Normal 0.2-2.0 [facility] Comment on above: Performed By: #### C BC #### [facility] [address] [place] [address] Dr. Jovanna Oneill EO # 0.1 103/ul Normal 0.0-0.7 [facility] Comment on above: Performed By: #### C BC #### [facility] [address] [place] [address] Dr. Jovanna Oneill Eosinophils/100 WBC (Bld) 1.3 % Normal 0.9-7.0 [facility] Comment on above: Performed By: #### C BC #### [facility] [address] [place] [address] Dr. Jovanna Oneill Erythrocyte distribution width (RBC) [Ratio] 12.0 % Normal 11.0-15.0 [facility] Comment on above: Performed By: #### C BC #### [facility] [address] [place] [address] Dr. Jovanna Oneill Hematocrit (Bld) [Volume fraction] 37.8 % Normal 36.0-48.0 [facility] Comment on above: Performed By: #### C BC #### [facility] [address] [place] [address] Dr. Jovanna Oneill Hemoglobin (Bld) [Mass/Vol] 12.8 g/dL Normal 12.0-16.0 [facility] Comment on above: Performed By: #### C BC #### [facility] [address] [place] [address] Dr. Jovanna Oneill IG # 0.02 10e3/ul Normal 0.00-0.03 [facility] Comment on above: Performed By: #### C BC #### [facility] [address] [place] [address] Dr. Jovanna Oneill IG % 0.2 % Normal 0.0-0.5 [facility] Comment on above: Performed By: #### C BC #### [facility] [address] [place] [address] Dr. Jovanna Oneill LYMPH # 3.5 103/ul Normal 1.2-3.8 [facility] Comment on above: Performed By: #### C BC #### [facility] [address] [place] [address] Dr. Jovanna Oneill Lymphocytes/100 WBC (Bld) 37.9 % Normal 20.5-60.0 [facility] Comment on above: Performed By: #### C BC #### [facility] [address] [place] [address] Dr. Jovanna Oneill MANUAL DIFF REQ NO Normal [facility] Comment on above: Performed By: #### C BC #### [facility] [address] [place] [address] Dr. Jovanna Oneill MCH (RBC) [Entitic mass] 31.7 pg Normal 26.7-34.0 [facility] Comment on above: Performed By: #### C BC #### [facility] [address] [place] [address] Dr. Jovanna Oneill MCHC (RBC) [Mass/Vol] 33.9 g/dL Normal 29.9-35.2 [facility] Comment on above: Performed By: #### C BC #### [facility] [address] [place] [address] Dr. Jovanna Oneill MCV (RBC) [Entitic vol] 93.6 fL Normal 81.0-99.0 [facility] Comment on above: Performed By: #### C BC #### [facility] [address] [place] [address] Dr. Jovanna Oneill MONO # 0.5 103/ul Normal 0.3-0.8 [facility] Comment on above: Performed By: #### C BC #### [facility] [address] [place] [address] Dr. Jovanna Oneill Monocytes/100 WBC (Bld) 4.8 % Normal 1.7-12.0 [facility] Comment on above: Performed By: #### C BC #### [facility] [address] [place] [address] Dr. Jovanna Oneill NEUT # 5.1 103/ul Normal 1.4-6.5 [facility] Comment on above: Performed By: #### C BC #### [facility] [address] [address] [address] Jovanna Oneill Neutrophils/100 WBC (Bld) 55.4 % Normal 43.0-75.0 [facility] Comment on above: Performed By: #### C BC #### [facility] [address] [address] [address] Jovanna Oneill Platelet mean volume (Bld) [Entitic vol] 10.2 fL Normal 9.5-13.5 [facility] Comment on above: Performed By: #### C BC #### [facility] [address] [place] [address] Dr. Jovanna Oneill PLT 181 103/ul Normal 150-450 [facility] Comment on above: Performed By: #### C BC #### [facility] [address] [place] [address] Dr. Jovanna Oneill RBC 4.04 106/ul Critically low 4.20-5.40 [facility] Comment on above: Performed By: #### C BC #### [facility] [address] [place] [address] Dr. Jovanna Oneill WBC 9.3 103/ul Normal 4.0-11.0 [facility] Comment on above: Performed By: #### C BC #### [facility] [address] [place] [address] Dr. Jovanna Oneill CRPon 10-08-2022 CRP [Mass/Vol] mg/L Normal <=1.0 [facility] Comment on above: Performed By: #### B MP, CRP ####[facility] [address] [address]Dr. Jovanna Oneill LACTATE/LACTIC ACIDon 2021 Lactate [Moles/Vol] 0.4 mmol/L Normal 0.4-1.9 [facility] Comment on above: Performed By: #### L ACT #### [facility] [address] [place] [address] Dr. Jovanna Oneill PROF CHEM 8 (BAS METB)on Anion gap [Moles/Vol] 12.6 mmol/L Normal [facility] Comment on above: Performed By: #### B MP, CRP #### [facility] [address] [address] [address] Jovanna Oneill Calcium [Mass/Vol] 8.6 mg/dL Normal 8.5-10.1 [facility] Comment on above: Performed By: #### B MP, CRP #### [facility] [address] [address] [address] Jovanna Oneill Chloride [Moles/Vol] 104 mmol/L Normal 98-107 [facility] Comment on above: Performed By: #### B MP, CRP #### [facility] [address] [place] [address] Dr. Jovanna Oneill CO2 [Moles/Vol] 26.8 mmol/L Normal 21.0-32.0 [facility] Comment on above: Performed By: #### B MP, CRP #### [facility] [address] [address] [address] Jovanna Oneill Creatinine [Mass/Vol] 0.52 mg/dL Critically low 0.55-1.02 [facility] Comment on above: Performed By: #### B MP, CRP #### [facility] [address] [place] [address] Dr. Jovanna Oneill EGFR-AF MACEDONIAN >60 Normal >=60 [facility] Comment on above: Performed By: #### B MP, CRP #### [facility] [address] [address] [address] Jovanna Oneill EGFR-NON AF MACEDONIAN >60 Normal >=60 [facility] Comment on above: Performed By: #### B MP, CRP #### [facility] [address] [place] [address] Dr. Jovanna Oneill Glucose [Mass/Vol] 93 mg/dL Normal 74-106 [facility] Comment on above: Performed By: #### B MP, CRP #### [facility] [address] [address] [address] Jovanna Oneill Potassium [Moles/Vol] 3.4 mmol/L Critically low 3.5-5.1 [facility] Comment on above: Performed By: #### B MP, CRP #### [facility] [address] [address] [address] Jovanna Oneill Sodium [Moles/Vol] 140 mmol/L Normal 136-145 [facility] Comment on above: Performed By: #### B MP, CRP #### [facility] [address] [address] [address] Jovanna Oneill Urea nitrogen [Mass/Vol] 11.0 mg/dL Normal 7.0-18.0 [facility] Comment on above: Performed By: #### B MP, CRP #### [facility] [address] [address] [address] Jovanna Oneill Urea nitrogen/Creatinine [Mass ratio] 21.2 mg/mg Normal [facility] Comment on above: Performed By: #### B MP, CRP #### [facility] [address] [address] [address] Jovanna Oneill SED RATE [facility] 2021 SED RATE 17 mm/hr Normal <=20 [facility] Comment on above: Performed By: #### S EDR ####[facility] [address] [address]Dr. Jovanna Oneill Physician Referralon 022 Physician Referral [id number]:127 Normal [facility] Physician Referral [id number] 1 [id number] .[id number]:127 Normal [facility] PROF 14(COMP METB)on 022 Albumin [Mass/Vol] 3.4 g/dL Normal 3.4-5.0 [facility] Comment on above: Performed By: #### V ITB12 #### [facility] [address] [address] [address] Jovanna Oneill Albumin/Globulin [Mass ratio] 1.1 {ratio} Normal [facility] Comment on above: Performed By: #### V ITB12 #### [facility] [address] [address] [address] Jovanna Oneill ALP [Catalytic activity/Vol] 88 U/L Normal 46-116 [facility] Comment on above: Performed By: #### V ITB12 #### [facility] [address] [address] [address] Jovanna Oneill ALT [Catalytic activity/Vol] 11 U/L Critically low 14-59 [facility] Comment on above: Performed By: #### V ITB12 #### [facility] [address] [address] [address] Jovanna Oneill Anion gap [Moles/Vol] 8.7 mmol/L Normal [facility] Comment on above: Performed By: #### V ITB12 #### [facility] [address] [address] [address] Jovanna Oneill AST [Catalytic activity/Vol] 13 U/L Critically low 15-37 [facility] Comment on above: Performed By: #### V ITB12 #### [facility] [address] [address] [address] Jovanna Oneill Bilirubin [Mass/Vol] 0.6 mg/dL Normal 0.2-1.0 [facility] Comment on above: Performed By: #### V ITB12 #### [facility] [address] [address] [address] Jovanna Oneill Calcium [Mass/Vol] 8.7 mg/dL Normal 8.5-10.1 [facility] Comment on above: Performed By: #### V ITB12 #### [facility] [address] [address] [address] Jovanna Oneill Chloride [Moles/Vol] 104 mmol/L Normal 98-107 [facility] Comment on above: Performed By: #### V ITB12 #### [facility] [address] [address] [address] Jovanna Oneill CO2 [Moles/Vol] 31.9 mmol/L Normal 21.0-32.0 [facility] Comment on above: Performed By: #### V ITB12 #### [facility] [address] [address] [address] Jovanna Oneill Creatinine [Mass/Vol] 0.65 mg/dL Normal 0.55-1.02 [facility] Comment on above: Performed By: #### V ITB12 #### [facility] [address] [address] [address] Jovanna Oneill EGFR-AF MACEDONIAN >60 Normal >=60 [facility] Comment on above: Performed By: #### V ITB12 #### [facility] [address] [address] [address] Jovanna Oneill EGFR-NON AF MACEDONIAN >60 Normal >=60 [facility] Comment on above: Performed By: #### V ITB12 #### [facility] [address] [address] [address] Jovanna Oneill Globulin (S) [Mass/Vol] 3.2 g/dL Normal [facility] Comment on above: Performed By: #### V ITB12 #### [facility] [address] [address] [address] Jovanna Oneill Glucose [Mass/Vol] 91 mg/dL Normal 74-106 [facility] Comment on above: Performed By: #### V ITB12 #### [facility] [address] [address] [address] Jovanna Oneill Potassium [Moles/Vol] 3.6 mmol/L Normal 3.5-5.1 [facility] Comment on above: Performed By: #### V ITB12 #### [facility] [address] [address] [address] Jovanna Oneill Protein [Mass/Vol] 6.6 g/dL Normal 6.4-8.2 [facility] Comment on above: Performed By: #### V ITB12 #### [facility] [address] [address] [address] Jovanna Oneill Sodium [Moles/Vol] 141 mmol/L Normal 136-145 [facility] Comment on above: Performed By: #### V ITB12 #### [facility] [address] [place] [address] Dr. Jovanna Oneill Urea nitrogen [Mass/Vol] 4.0 mg/dL Critically low 7.0-18.0 [facility] Comment on above: Performed By: #### V ITB12 #### [facility] [address] [place] [address] Dr. Jovanna Oneill Urea nitrogen/Creatinine [Mass ratio] 6.2 mg/mg Normal [facility] Comment on above: Performed By: #### V ITB12 #### [facility] [address] [place] [address] Dr. Jovanna Oneill HEPATITIS C AB CASCADE TO QU ANT PCR GENOon 09-13-2022 HCV AB <0.1 Normal 0.0-0.9 [facility] Comment on above: Performed By: #### H EPCASC #### [facility] [address] [place] [address] Dr. Jovanna Oneill Interpretation: Comment Normal [facility] Comment on above: Result Comment: Nega tive Not infected with HCV, unless recent infection is suspected or other evidence exists to indicate HCV infection. Performed By: #### H EPCASC #### [facility] [address] [place] [address] Dr. Jovanna Oneill CBC AUTO DIFFon 09-12-2022 BASO # 0.0 103/ul Normal 0.0-0.1 [facility] Comment on above: Performed By: #### C BC #### [facility] [address] [place] [address] Dr. Jovanna Oneill Basophils/100 WBC (Bld) 0.3 % Normal 0.2-2.0 [facility] Comment on above: Performed By: #### C BC #### [facility] [address] [place] [address] Dr. Jovanna Oneill EO # 0.1 103/ul Normal 0.0-0.7 [facility] Comment on above: Performed By: #### C BC #### [facility] [address] [place] [address] Dr. Jovanna Oneill Eosinophils/100 WBC (Bld) 0.7 % Critically low 0.9-7.0 [facility] Comment on above: Performed By: #### C BC #### [facility] [address] [place] [address] Dr. Jovanna Oneill Erythrocyte distribution width (RBC) [Ratio] 12.3 % Normal 11.0-15.0 [facility] Comment on above: Performed By: #### C BC #### [facility] [address] [place] [address] Dr. Jovanna Oneill Hematocrit (Bld) [Volume fraction] 40.2 % Normal 36.0-48.0 [facility] Comment on above: Performed By: #### C BC #### [facility] [address] [place] [address] Dr. Jovanna Oneill Hemoglobin (Bld) [Mass/Vol] 13.4 g/dL Normal 12.0-16.0 [facility] Comment on above: Performed By: #### C BC #### [facility] [address] [place] [address] Dr. Jovanna Oneill IG # 0.02 10e3/ul Normal 0.00-0.03 [facility] Comment on above: Performed By: #### C BC #### [facility] [address] [place] [address] Dr. Jovanna Oneill IG % 0.3 % Normal 0.0-0.5 [facility] Comment on above: Performed By: #### C BC #### [facility] [address] [place] [address] Dr. Jovanna Oneill LYMPH # 2.2 103/ul Normal 1.2-3.8 [facility] Comment on above: Performed By: #### C BC #### [facility] [address] [place] [address] Dr. Jovanna Oneill Lymphocytes/100 WBC (Bld) 31.9 % Normal 20.5-60.0 [facility] Comment on above: Performed By: #### C BC #### [facility] [address] [place] [address] Dr. Jovanna Oneill MANUAL DIFF REQ NO Normal [facility] Comment on above: Performed By: #### C BC #### [facility] [address] [place] [address] Dr. Jovanna Oneill MCH (RBC) [Entitic mass] 31.8 pg Normal 26.7-34.0 [facility] Comment on above: Performed By: #### C BC #### [facility] [address] [place] [address] Dr. Jovanna Oneill MCHC (RBC) [Mass/Vol] 33.3 g/dL Normal 29.9-35.2 [facility] Comment on above: Performed By: #### C BC #### [facility] [address] [place] [address] Dr. Jovanna Oneill MCV (RBC) [Entitic vol] 95.5 fL Normal 81.0-99.0 [facility] Comment on above: Performed By: #### C BC #### [facility] [address] [place] [address] Dr. Jovanna Oneill MONO # 0.3 103/ul Normal 0.3-0.8 [facility] Comment on above: Performed By: #### C BC #### [facility] [address] [place] [address] Dr. Jovanna Oneill Monocytes/100 WBC (Bld) 4.4 % Normal 1.7-12.0 [facility] Comment on above: Performed By: #### C BC #### [facility] [address] [place] [address] Dr. Jovanna Oneill NEUT # 4.4 103/ul Normal 1.4-6.5 [facility] Comment on above: Performed By: #### C BC #### [facility] [address] [place] [address] Dr. Jovanna Oneill Neutrophils/100 WBC (Bld) 62.4 % Normal 43.0-75.0 [facility] Comment on above: Performed By: #### C BC #### [facility] [address] [place] [address] Dr. Jovanna Oneill Platelet mean volume (Bld) [Entitic vol] 10.9 fL Normal 9.5-13.5 [facility] Comment on above: Performed By: #### C BC #### [facility] [address] [place] [address] Dr. Jovanna Oneill PLT 179 103/ul Normal 150-450 [facility] Comment on above: Performed By: #### C BC #### [facility] [address] [place] [address] Dr. Jovanna Oneill RBC 4.21 106/ul Normal 4.20-5.40 [facility] Comment on above: Performed By: #### C BC #### [facility] [address] [place] [address] Dr. Jovanna Oneill WBC 7.0 103/ul Normal 4.0-11.0 [facility] Comment on above: Performed By: #### C BC #### [facility] [address] [place] [address] Dr. Jovanna Oneill GLYCOHEMOGLOBIN A1Con 2021 ADA RECOMMENDATION SEE BELOW Normal [facility] Comment on above: Result Comment: ADA RECOMMENDED LIMIT 4.0 - 6.0 ADA THERAPEUTIC TARGET < 7.0 ACTION SUGGESTED > 7.0 Performed By: #### L ACT #### [facility] [address] [place] [address] Dr. Jovanna Oneill Glucose [Mass/Vol] 105 mg/dL Normal [facility] Comment on above: Performed By: #### L ACT #### [facility] [address] [place] [address] Dr. Jovanna Oneill HbA1c (Bld) [Mass fraction] 5.3 % Normal 4.5-6.2 [facility] Comment on above: Performed By: #### L ACT #### [facility] [address] [place] [address] Dr. Jovanna Oneill LIPID PROFILEon 09-12-2022 CHOL-HDL RATIO NORM SEE BELOW Normal [facility] Comment on above: Result Comment: 3.3 - 4.4 LOW RISK 4.4 - 7.1 AVERAGE RISK 7.1 - 11.0 MODERATE RISK >11.0 HIGH RISK Performed By: #### C MP, LIPID #### [facility] [address] [address] [address] Jovanna Oneill Cholesterol [Mass/Vol] 135 mg/dL Normal <=200 [facility] Comment on above: Performed By: #### C MP, LIPID #### [facility] [address] [address] [address] Jovanna Oneill Cholesterol in HDL [Mass/Vol] 35 mg/dL Critically low 40-60 [facility] Comment on above: Performed By: #### C MP, LIPID #### [facility] [address] [address] [address] Jovanna Oneill Cholesterol in LDL [Mass/Vol] 84.8 mg/dL Normal [facility] Comment on above: Performed By: #### C MP, LIPID #### [facility] [address] [address] [address] Jovanna Oneill Cholesterol.total/Cho lesterol in HDL [Mass ratio] 3.9 {ratio} Normal [facility] Comment on above: Performed By: #### C MP, LIPID #### [facility] [address] [address] [address] Jovanna Oneill HDL NORMAL > or = 60 mg/dl - LO W CARDIOVASCULAR RISK <40 mg/dl - HIGH CARDIOVASCULAR RISK Normal [facility] Comment on above: Performed By: #### C MP, LIPID #### [facility] [address] [address] [address] Jovanna Oneill LDL CALC NORMAL SEE BELOW Normal [facility] Comment on above: Result Comment: <100 mg/dl OPTIMAL 100 - 129 mg/dl NEAR OR ABOVE OPTIMAL 130 - 159 mg/dl BORDERLINE HIGH 160 - 189 mg/dl HIGH >190 mg/dl VERY HIGH Performed By: #### C MP, LIPID #### [facility] [address] [address] [address] Jovanna Oneill Triglyceride [Mass/Vol] 76 mg/dL Normal <=150 [facility] Comment on above: Performed By: #### C MP, LIPID #### [facility] [address] [address] [address] Jovanna Oneill VLDL CALC 15.2 mg/dL Normal [facility] Comment on above: Performed By: #### C MP, LIPID #### [facility] [address] [place] [address] Dr. Jovanna Oneill PROF 14(COMP METB)on 022 Albumin [Mass/Vol] 3.5 g/dL Normal 3.4-5.0 [facility] Comment on above: Performed By: #### C MP, LIPID #### [facility] [address] [place] [address] Dr. Jovanna Oneill Albumin/Globulin [Mass ratio] 1.1 {ratio} Normal [facility] Comment on above: Performed By: #### C MP, LIPID #### [facility] [address] [place] [address] Dr. Jovanna Oneill ALP [Catalytic activity/Vol] 79 U/L Normal 46-116 [facility] Comment on above: Performed By: #### C MP, LIPID #### [facility] [address] [place] [address] Dr. Jovanna Oneill ALT [Catalytic activity/Vol] 15 U/L Normal 14-59 [facility] Comment on above: Performed By: #### C MP, LIPID #### [facility] [address] [place] [address] Dr. Jovanna Oneill Anion gap [Moles/Vol] 4.9 mmol/L Normal [facility] Comment on above: Performed By: #### C MP, LIPID #### [facility] [address] [place] [address] Dr. Jovanna Oneill AST [Catalytic activity/Vol] 17 U/L Normal 15-37 [facility] Comment on above: Performed By: #### C MP, LIPID #### [facility] [address] [place] [address] Dr. Jovanna Oneill Bilirubin [Mass/Vol] 0.4 mg/dL Normal 0.2-1.0 [facility] Comment on above: Performed By: #### C MP, LIPID #### [facility] [address] [place] [address] Dr. Jovanna Oneill Calcium [Mass/Vol] 8.7 mg/dL Normal 8.5-10.1 [facility] Comment on above: Performed By: #### C MP, LIPID #### [facility] [address] [place] [address] Dr. Jovanna Oneill Chloride [Moles/Vol] 103 mmol/L Normal 98-107 [facility] Comment on above: Performed By: #### C MP, LIPID #### [facility] [address] [place] [address] Dr. Jovanna Oneill CO2 [Moles/Vol] 35.8 mmol/L Critically high 21.0-32.0 [facility] Comment on above: Performed By: #### C MP, LIPID #### [facility] [address] [place] [address] Dr. Jovanna Oneill Creatinine [Mass/Vol] 0.70 mg/dL Normal 0.55-1.02 [facility] Comment on above: Performed By: #### C MP, LIPID #### [facility] [address] [place] [address] Dr. Jovanna Oneill EGFR-AF MACEDONIAN >60 Normal >=60 [facility] Comment on above: Performed By: #### C MP, LIPID #### [facility] [address] [place] [address] Dr. Jovanna Oneill EGFR-NON AF MACEDONIAN >60 Normal >=60 [facility] Comment on above: Performed By: #### C MP, LIPID #### [facility] [address] [place] [address] Dr. Jovanna Oneill Globulin (S) [Mass/Vol] 3.2 g/dL Normal [facility] Comment on above: Performed By: #### C MP, LIPID #### [facility] [address] [place] [address] Dr. Jovanna Oneill Glucose [Mass/Vol] 86 mg/dL Normal 74-106 [facility] Comment on above: Performed By: #### C MP, LIPID #### [facility] [address] [place] [address] Dr. Jovanna Oneill Potassium [Moles/Vol] 2.7 mmol/L Critically low 3.5-5.1 [facility] Comment on above: Performed By: #### C MP, LIPID #### [facility] [address] [address] [address] Jovanna Oneill Protein [Mass/Vol] 6.7 g/dL Normal 6.4-8.2 [facility] Comment on above: Performed By: #### C MP, LIPID #### [facility] [id number] Jovanna Oneill Sodium [Moles/Vol] 141 mmol/L Normal 136-145 [facility] Comment on above: Performed By: #### C MP, LIPID #### [facility] [address] [place] [address] Dr. Jovanna Oneill Urea nitrogen [Mass/Vol] 6.0 mg/dL Critically low 7.0-18.0 [facility] Comment on above: Performed By: #### C MP, LIPID #### [facility] [address] [place] [address] Dr. Jovanna Oneill Urea nitrogen/Creatinine [Mass ratio] 8.6 mg/mg Normal [facility] Comment on above: Performed By: #### C MP, LIPID #### [facility] [address] [place] [address] Dr. Jovanna Oneill US THYROIDon 09-12-2022 US [...] by: FRANCES AGUSTIN Date: 2022-09-12 11:52 Normal [facility] VITAMIN B12on 09-12-2022 Cobalamin (Vitamin B12) [Mass/Vol] 280.0 pg/mL Normal 193.0-986.0 [facility] Comment on above: Performed By: #### V ITB12 #### [facility] [address] [address] [address] CSPINE WO CONon [...] MAN VILLALOBOS Date: 2022-08-24 18:11 Normal [facility] CT NECK ST W CONon 2 [...] WOO PAIGE Date: 2022-08-16 23:10 Normal [facility] CBC AUTO DIFFon 08-16-2022 BASO # 0.0 103/ul Normal 0.0-0.1 [facility] Comment on above: Performed By: #### C BC ####[facility] [address] [address]Dr. Jovanna Oneill Basophils/100 WBC (Bld) 0.2 % Normal 0.2-2.0 [facility] Comment on above: Performed By: #### C BC ####[facility] [address] [place], [place] [address]Dr. Jovanna Oneill EO # 0.1 103/ul Normal 0.0-0.7 [facility] Comment on above: Performed By: #### C BC ####[facility] [address] [place], [place] [address]Dr. Jovanna Oneill Eosinophils/100 WBC (Bld) 0.7 % Critically low 0.9-7.0 [facility] Comment on above: Performed By: #### C BC ####[facility] [address] [address]Dr. Jovanna Oneill Erythrocyte distribution width (RBC) [Ratio] 12.1 % Normal 11.0-15.0 [facility] Comment on above: Performed By: #### C BC ####[facility] [address] [place], [place] [address]Dr. Jovanna Oneill Hematocrit (Bld) [Volume fraction] 38.8 % Normal 36.0-48.0 [facility] Comment on above: Performed By: #### C BC ####[facility] [address] [id number] Jovanna Oneill Hemoglobin (Bld) [Mass/Vol] 12.8 g/dL Normal 12.0-16.0 [facility] Comment on above: Performed By: #### C BC ####[facility] [address] [id number]. Jovanna Oneill IG # 0.06 10e3/ul Critically high 0.00-0.03 [facility] Comment on above: Performed By: #### C BC ####[facility] [address] [id number]. Jovanna Oneill IG % 0.4 % Normal 0.0-0.5 [facility] Comment on above: Performed By: #### C BC ####[facility] [address] [address]Dr. Jovanna Oneill LYMPH # 2.5 103/ul Normal 1.2-3.8 [facility] Comment on above: Performed By: #### C BC ####[facility] [address] [address]Dr. Jovanna Oneill Lymphocytes/100 WBC (Bld) 18.1 % Critically low 20.5-60.0 [facility] Comment on above: Performed By: #### C BC ####[facility] [address] [id number]. Jovanna Oneill MANUAL DIFF REQ NO Normal [facility] Comment on above: Performed By: #### C BC ####[facility] [address] [id number]. Jovanna Oneill MCH (RBC) [Entitic mass] 32.0 pg Normal 26.7-34.0 [facility] Comment on above: Performed By: #### C BC ####[facility] [address] [id number]. Jovanna Oneill MCHC (RBC) [Mass/Vol] 33.0 g/dL Normal 29.9-35.2 [facility] Comment on above: Performed By: #### C BC ####[facility] [address] [id number]. Jovanna Oneill MCV (RBC) [Entitic vol] 97.0 fL Normal 81.0-99.0 [facility] Comment on above: Performed By: #### C BC ####[facility] [address] [address]Dr. Jovanna Oneill MONO # 0.6 103/ul Normal 0.3-0.8 [facility] Comment on above: Performed By: #### C BC ####[facility] [address] [address]Dr. Jovanna Oneill Monocytes/100 WBC (Bld) 4.5 % Normal 1.7-12.0 [facility] Comment on above: Performed By: #### C BC ####[facility] [address] [place] [address]Dr. Jovanna Oneill NEUT # 10.4 103/ul Critically high 1.4-6.5 [facility] Comment on above: Performed By: #### C BC ####[facility] Azajn[address] [place], [place] [address]Dr. Jovanna Oneill Neutrophils/100 WBC (Bld) 76.1 % Critically high 43.0-75.0 The [facility] Comment on above: Performed By: #### C BC ####[facility] Cog[address] [place], [place] [address]Dr. Jovanna Oneill Platelet mean volume (Bld) [Entitic vol] 10.9 fL Normal 9.5-13.5 The [facility] Comment on above: Performed By: #### C BC ####[facility] Lzxleok[address] [place], [place] [address]Dr. Jovanna Nino PLT 193 103/ul Normal 150-450 The [facility] Comment on above: Performed By: #### C BC ####[facility] [address] [place], [place] [id number]. Jovanna Nino RBC 4.00 106/ul Critically low 4.20-5.40 The [facility] Comment on above: Performed By: #### C BC ####[facility] Mgblablaxt[address] [place], [place] [address]Dr. Jovanna Oneill WBC 13.7 103/ul Critically high 4.0-11.0 [facility] Comment on above: Performed By: #### C BC ####[facility] [address] [place] [address]Dr. Jovanna Oneill FREE T4on 08-16-2022 Free T4 [Mass/Vol] 0.68 ng/dL Critically low 0.76-1.46 Th e [facility] Comment on above: Performed By: #### L ACT #### [facility] [address] [address] [address] Jovanna Oneill HS-CRPon 08-16-2022 HS-CRP 1.04 mg/L Normal <=3.00 [facility] Comment on above: Performed By: #### L ACT #### [facility] [address] [address] [address] Jovanna Oneill PROF 14(COMP METB)on 022 Albumin [Mass/Vol] 3.5 g/dL Normal 3.4-5.0 [facility] Comment on above: Performed By: #### V ITB12 #### [facility] [address] [address] [address] Jovanna Oneill Albumin/Globulin [Mass ratio] 1.1 {ratio} Normal [facility] Comment on above: Performed By: #### V ITB12 #### [facility] [address] [address] [address] Jovanna Oneill ALP [Catalytic activity/Vol] 82 U/L Normal 46-116 The [facility] Comment on above: Performed By: #### V ITB12 #### [facility] [address] [address] [address] Jovanna Oneill ALT [Catalytic activity/Vol] 17 U/L Normal 14-59 [facility] Comment on above: Performed By: #### V ITB12 #### [facility] [address] [address] [address] Jovanna Oneill Anion gap [Moles/Vol] 9.6 mmol/L Normal [facility] Comment on above: Performed By: #### V ITB12 #### [facility] [address] [address] [address] Jovanna Oneill AST [Catalytic activity/Vol] 17 U/L Normal 15-37 [facility] Comment on above: Performed By: #### V ITB12 #### [facility] [address] [address] [address] Jovanna Oneill Bilirubin [Mass/Vol] 0.4 mg/dL Normal 0.2-1.0 [facility] Comment on above: Performed By: #### V ITB12 #### [facility] [address] [place] [address] Dr. Jovanna Oneill Calcium [Mass/Vol] 8.7 mg/dL Normal 8.5-10.1 [facility] Comment on above: Performed By: #### V ITB12 #### [facility] [address] [place] [address] Dr. Jovanna Oneill Chloride [Moles/Vol] 105 mmol/L Normal 98-107 [facility] Comment on above: Performed By: #### V ITB12 #### [facility] [address] [place] [address] Dr. Jovanna Oneill CO2 [Moles/Vol] 30.9 mmol/L Normal 21.0-32.0 [facility] Comment on above: Performed By: #### V ITB12 #### [facility] [address] [place] [address] Dr. Jovanna Oneill Creatinine [Mass/Vol] 0.69 mg/dL Normal 0.55-1.02 [facility] Comment on above: Performed By: #### V ITB12 #### [facility] [address] [place] [address] Dr. Jovanna Oneill EGFR-AF MACEDONIAN >60 Normal >=60 [facility] Comment on above: Performed By: #### V ITB12 #### [facility] [address] [place] [address] Dr. Jovanna Oneill EGFR-NON AF MACEDONIAN >60 Normal >=60 [facility] Comment on above: Performed By: #### V ITB12 #### [facility] [address] [address] [address] Jovanna Oneill Globulin (S) [Mass/Vol] 3.1 g/dL Normal [facility] Comment on above: Performed By: #### V ITB12 #### [facility] [address] [address] [address] Jovanna Oneill Glucose [Mass/Vol] 84 mg/dL Normal 74-106 [facility] Comment on above: Performed By: #### V ITB12 #### [facility] [address] [place] [address] Dr. Jovanna Oneill Potassium [Moles/Vol] 3.5 mmol/L Normal 3.5-5.1 [facility] Comment on above: Performed By: #### V ITB12 #### [facility] [address] [place] [address] Dr. Jovanna Oneill Protein [Mass/Vol] 6.6 g/dL Normal 6.4-8.2 [facility] Comment on above: Performed By: #### V ITB12 #### [facility] [address] [place] [address] Dr. Jovanna Oneill Sodium [Moles/Vol] 142 mmol/L Normal 136-145 [facility] Comment on above: Performed By: #### V ITB12 #### [facility] [address] [place] [address] Dr. Jovanna Oneill Urea nitrogen [Mass/Vol] 7.0 mg/dL Normal 7.0-18.0 [facility] Comment on above: Performed By: #### V ITB12 #### [facility] [address] [place] [address] Dr. Jovanna Oneill Urea nitrogen/Creatinine [Mass ratio] 10.1 mg/mg Normal [facility] Comment on above: Performed By: #### V ITB12 #### [facility] [address] [place] [address] Dr. Jovanna Oneill PROF CHEM 8 (BAS METB)on Anion gap [Moles/Vol] 8.5 mmol/L Normal [facility] Comment on above: Performed By: #### L ACT #### [facility] [address] [address] [address] Jovanna Oneill Calcium [Mass/Vol] 8.3 mg/dL Critically low 8.5-10.1 [facility] Comment on above: Performed By: #### L ACT #### [facility] [address] [address] [address] Jovanna Oneill Chloride [Moles/Vol] 105 mmol/L Normal 98-107 [facility] Comment on above: Performed By: #### L ACT #### [facility] [address] [address] [address] Jovanna Oneill CO2 [Moles/Vol] 28.4 mmol/L Normal 21.0-32.0 [facility] Comment on above: Performed By: #### L ACT #### [facility] [address] [address] [address] Jovanna Oneill Creatinine [Mass/Vol] 0.72 mg/dL Normal 0.55-1.02 [facility] Comment on above: Performed By: #### L ACT #### [facility] [address] [address] [address] Jovanna Oneill EGFR-AF MACEDONIAN >60 Normal >=60 [facility] Comment on above: Performed By: #### L ACT #### [facility] [address] [address] [address] Jovanna Oneill EGFR-NON AF MACEDONIAN >60 Normal >=60 [facility] Comment on above: Performed By: #### L ACT #### [facility] [address] [address] [address] Jovanna Oneill Glucose [Mass/Vol] 242 mg/dL Critically high 74-106 [facility] Comment on above: Performed By: #### L ACT #### [facility] [address] [address] [address] Jovanna Oneill Potassium [Moles/Vol] 2.9 mmol/L Critically low 3.5-5.1 [facility] Comment on above: Performed By: #### L ACT #### [facility] [address] [address] [address] Jovanna Oneill Sodium [Moles/Vol] 138 mmol/L Normal 136-145 [facility] Comment on above: Performed By: #### L ACT #### [facility] [address] [id number] [address] Jovanna Oneill Urea nitrogen [Mass/Vol] 5.0 mg/dL Critically low 7.0-18.0 [facility] Comment on above: Performed By: #### L ACT #### [facility] [address] [address] [address] Jovanna Oneill Urea nitrogen/Creatinine [Mass ratio] 6.9 mg/mg Normal [facility] Comment on above: Performed By: #### L ACT #### [facility] [address] [place], [place] [id number] Dr. Jovanna Oneill TSHon 08-16-2022 TSH 4.977 uIU/mL Critically high 0.358-3.740 [facility] Comment on above: Performed By: #### V ITB12 #### [facility] [address] [place] [address] ABD/PELVIS WO CONon [...] Ayaka LEON Date: 2022-05-02 03:06 Normal [facility] DRUG SCREEN RAPID (URINE)on 05-02-2022 AMP Negative Normal NEGATIVE [facility] Comment on above: Performed By: #### L ACT #### [facility] [address] [address] [address] Jovanna Oneill BAR Negative Normal NEGATIVE [facility] Comment on above: Performed By: #### L ACT #### [facility] [address] [place] [address] Dr. Jovanna Oneill BUP Negative Normal NEGATIVE [facility] Comment on above: Performed By: #### L ACT #### [facility] [address] [place] [address] Dr. Jovanna Oneill BZO Negative Normal NEGATIVE [facility] Comment on above: Performed By: #### L ACT #### [facility] [address] [address] [address] Jovanna Oneill CARA Negative Normal NEGATIVE [facility] Comment on above: Performed By: #### L ACT #### [facility] [address] [place] [address] Dr. Jovanna Oneill CUT-OFFS SEE BELOW Normal [facility] Comment on above: Result Comment: AMP [...] ng/mL Performed By: #### L ACT #### [facility] [address] [place] [address] Dr. Jovanna Oneill DRUG CUT HEADER DRUG CLASS TEST SYSTEM CUT-OFF CONCENTRATIONS ARE FOLLOWS: Normal [facility] Comment on above: Performed By: #### L ACT #### [facility] [address] [place] [address] Dr. Jovanna Oneill mAMP Negative Normal NEGATIVE [facility] Comment on above: Performed By: #### L ACT #### [facility] [address] [place] [address] Dr. Jovanna Oneill MTD Negative Normal NEGATIVE [facility] Comment on above: Performed By: #### L ACT #### [facility] [address] [place] [address] Dr. Jovanna Oneill OPI Positive Abnormal NEGATIVE [facility] Comment on above: Performed By: #### L ACT #### [facility] [address] [place] [address] Dr. Jovanna Oneill OXY Negative Normal NEGATIVE [facility] Comment on above: Performed By: #### L ACT #### [facility] [address] [place] [address] Dr. Jovanna Oneill PCP Negative Normal NEGATIVE [facility] Comment on above: Performed By: #### L ACT #### [facility] [address] [place] [address] Dr. Jovanna Oneill PPX Negative Normal NEGATIVE [facility] Comment on above: Performed By: #### L ACT #### [facility] [address] [place] [address] Dr. Jovanna Oneill TCA Negative Normal NEGATIVE [facility] Comment on above: Performed By: #### L ACT #### [facility] [address] [place] [address] Dr. Jovanna Oneill THC Positive Abnormal NEGATIVE [facility] Comment on above: Performed By: #### L ACT #### [facility] [address] [place] [address] Dr. Jovanna Oneill ER URINE PROFILEon 2 Bilirubin Ql (U) Negative Normal NEGATIVE [facility] Comment on above: Performed By: #### L ACT #### [facility] [address] [place] [address] Dr. Jovanna Oneill Clarity (U) CLEAR Normal CLEAR [facility] Comment on above: Performed By: #### L ACT #### [facility] [address] [place] [address] Dr. Jovanna Oneill Color (U) LT. YELLOW Normal YELLOW [facility] Comment on above: Performed By: #### L ACT #### [facility] [address] [place] [address] Dr. Jovanna SANTIAGO A micrscopic examination will be performed if indicated. Normal [facility] Comment on above: Performed By: #### L ACT #### [facility] [address] [place] [address] Dr. Jovanna Oneill Glucose Ql (U) Negative Normal NEGATIVE [facility] Comment on above: Performed By: #### L ACT #### [facility] [address] [place] [address] Dr. Jovanna Oneill Hemoglobin Ql (U) Negative Normal NEGATIVE [facility] Comment on above: Performed By: #### L ACT #### [facility] [address] [place] [address] Dr. Jovanna Oneill Ketones Ql (U) Negative Normal NEGATIVE [facility] Comment on above: Performed By: #### L ACT #### [facility] [address] [place] [address] Dr. Jovanna Oneill LEUKOCYTES Negative Normal NEGATIVE [facility] Comment on above: Performed By: #### L ACT #### [facility] [address] [place] [address] Dr. Jovanna Oneill Nitrite Ql (U) Negative Normal NEGATIVE [facility] Comment on above: Performed By: #### L ACT #### [facility] [address] [place] [address] Dr. Jovanna Oneill pH (U) 6.0 [pH] Normal 5-9 [facility] Comment on above: Performed By: #### L ACT #### [facility] [address] [place] [address] Dr. Jovanna Oneill SPEC GRAVITY <=1.005 Abnormal 1.005-<=1.025 [facility] Comment on above: Performed By: #### L ACT #### [facility] [address] [place] [address] Dr. Jovanna Oneill UA PROTEIN Negative Normal NEGATIVE/ TRACE [facility] Comment on above: Performed By: #### L ACT #### [facility] [address] [place] [address] Dr. Jovanna Oneill UR MICRO IND NOT INDICATED Normal [facility] Comment on above: Performed By: #### L ACT #### [facility] [address] [place] [address] Dr. Jovanna Oneill Urobilinogen Qn (U) 0.2 {Isabella'U}/dL Normal 0.2 - 1. 0 [facility] Comment on above: Performed By: #### L ACT #### [facility] [address] [place] [address] Dr. Jovanna Oneill CBC AUTO DIFFon 04-20-2022 BASO # 0.0 103/ul Normal 0.0-0.1 [facility] Comment on above: Performed By: #### L ACT #### [facility] [address] [place] [address] Dr. Jovanna Oneill Basophils/100 WBC (Bld) 0.1 % Critically low 0.2-2.0 [facility] Comment on above: Performed By: #### L ACT #### [facility] [address] [place] [address] Dr. Jovanna Oneill EO # 0.0 103/ul Normal 0.0-0.7 [facility] Comment on above: Performed By: #### L ACT #### [facility] [address] [place] [address] Dr. Jovanna Oneill Eosinophils/100 WBC (Bld) 0.1 % Critically low 0.9-7.0 [facility] Comment on above: Performed By: #### L ACT #### [facility] [address] [place] [address] Dr. Jovanna Oneill Erythrocyte distribution width (RBC) [Ratio] 12.6 % Normal 11.0-15.0 [facility] Comment on above: Performed By: #### L ACT #### [facility] [address] [place] [address] Dr. Jovanna Oneill Hematocrit (Bld) [Volume fraction] 38.8 % Normal 36.0-48.0 [facility] Comment on above: Performed By: #### L ACT #### [facility] [address] [place] [address] Dr. Jovanna Oneill Hemoglobin (Bld) [Mass/Vol] 12.6 g/dL Normal 12.0-16.0 [facility] Comment on above: Performed By: #### L ACT #### [facility] [address] [place] [address] Dr. Jovanna Oneill IG # 0.13 10e3/ul Critically high 0.00-0.03 [facility] Comment on above: Performed By: #### L ACT #### [facility] [address] [place] [address] Dr. Jovanna Oneill IG % 1.0 % Critically high 0.0-0.5 [facility] Comment on above: Performed By: #### L ACT #### [facility] [address] [place] [address] Dr. Jovanna Oneill LYMPH # 1.1 103/ul Critically low 1.2-3.8 [facility] Comment on above: Performed By: #### L ACT #### [facility] [address] [place] [address] Dr. Jovanna Oneill Lymphocytes/100 WBC (Bld) 8.3 % Critically low 20.5-60.0 [facility] Comment on above: Performed By: #### L ACT #### [facility] [address] [place] [address] Dr. Jovanna Oneill MANUAL DIFF REQ NO Normal [facility] Comment on above: Performed By: #### L ACT #### [facility] [address] [place] [address] Dr. Jovanna Oneill MCH (RBC) [Entitic mass] 31.0 pg Normal 26.7-34.0 [facility] Comment on above: Performed By: #### L ACT #### [facility] [address] [address] [address] Jovanna Oneill MCHC (RBC) [Mass/Vol] 32.5 g/dL Normal 29.9-35.2 [facility] Comment on above: Performed By: #### L ACT #### [facility] [address] [place] [address] Dr. Jovanna Oneill MCV (RBC) [Entitic vol] 95.3 fL Normal 81.0-99.0 [facility] Comment on above: Performed By: #### L ACT #### [facility] [address] [place] [address] Dr. Jovanna Oneill MONO # 0.8 103/ul Normal 0.3-0.8 [facility] Comment on above: Performed By: #### L ACT #### [facility] [address] [place] [address] Dr. Jovanna Oneill Monocytes/100 WBC (Bld) 5.8 % Normal 1.7-12.0 [facility] Comment on above: Performed By: #### L ACT #### [facility] [address] [place] [address] Dr. Jovanna Oneill NEUT # 11.4 103/ul Critically high 1.4-6.5 [facility] Comment on above: Performed By: #### L ACT #### [facility] [address] [place] [address] Dr. Jovanna Oneill Neutrophils/100 WBC (Bld) 84.7 % Critically high 43.0-75.0 [facility] Comment on above: Performed By: #### L ACT #### [facility] [address] [place] [address] Dr. Jovanna Oenill Platelet mean volume (Bld) [Entitic vol] 10.1 fL Normal 9.5-13.5 [facility] Comment on above: Performed By: #### L ACT #### [facility] [address] [place] [address] Dr. Jovanna Oneill PLT 205 103/ul Normal 150-450 [facility] Comment on above: Performed By: #### L ACT #### [facility] [address] [address] [address] Jovanna Oneill RBC 4.07 106/ul Critically low 4.20-5.40 [facility] Comment on above: Performed By: #### L ACT #### [facility] [address] [address] [address] Jovanna Oneill WBC 13.4 103/ul Critically high 4.0-11.0 [facility] Comment on above: Performed By: #### L ACT #### [facility] [address] [address] [address] Jovanna Oneill DRUG SCREEN RAPID (URINE)on 04-20-2022 AMP Negative Normal NEGATIVE [facility] Comment on above: Performed By: #### U MICRO, ERUR, DRUGRPD ####[facility] [address] [place] [address]Dr. Jovanna Oneill BAR Negative Normal NEGATIVE [facility] Comment on above: Performed By: #### U MICRO, ERUR, DRUGRPD ####[facility] [address] [place] [address]Dr. Jovanna Oneill BUP Negative Normal NEGATIVE [facility] Comment on above: Performed By: #### U MICRO, ERUR, DRUGRPD ####[facility] [address] [place] [address]Dr. Jovanna Oneill BZO Negative Normal NEGATIVE [facility] Comment on above: Performed By: #### U MICRO, ERUR, DRUGRPD ####[facility] [address] [place] [address]Dr. Jovanna Oneill CARA Negative Normal NEGATIVE [facility] Comment on above: Performed By: #### U MICRO, ERUR, DRUGRPD ####[facility] [address] [place] [address]Dr. Jovanna Oneill CUT-OFFS SEE BELOW Normal [facility] Comment on above: Result Comment: AMP [...] Performed By: #### U MICRO, ERUR, DRUGRPD ####[facility] [address] [place], [place] [address]Dr. [facility] DRUG CUT HEADER DRUG CLASS TEST SYSTEM CUT-OFF CONCENTRATIONS ARE FOLLOWS: Normal [facility] Comment on above: Performed By: #### U MICRO, ERUR, DRUGRPD ####[facility] [address] [place], [place] [address]Dr. Jovanna Oneill mAMP Negative Normal NEGATIVE [facility] Comment on above: Performed By: #### U MICRO, ERUR, DRUGRPD ####[facility] [address] [place], [place] [address]Dr. Jovanna Oneill MTD Negative Normal NEGATIVE [facility] Comment on above: Performed By: #### U MICRO, ERUR, DRUGRPD ####[facility] [address] [place], [place] [address]Dr. Jovanna Lemuel [facility] OPI Positive Abnormal NEGATIVE [facility] Comment on above: Performed By: #### U MICRO, ERUR, DRUGRPD ####[facility] [address] [place], [place] [address]Dr. Jovanna Lemuel [facility] OXY Negative Normal NEGATIVE [facility] Comment on above: Performed By: #### U MICRO, ERUR, DRUGRPD ####[facility] [address] [place], [place] [address]Dr. Jovanna Oneill PCP Negative Normal NEGATIVE The [facility] Comment on above: Performed By: #### U MICRO, ERUR, DRUGRPD ####[facility] [address] [place], [place] [address]Dr. Jovanna Oneill PPX Negative Normal NEGATIVE [facility] Comment on above: Performed By: #### U MICRO, ERUR, DRUGRPD ####[facility] [address] [address]Dr. Jovanna Oneill TCA Negative Normal NEGATIVE [facility] Comment on above: Performed By: #### U MICRO, ERUR, DRUGRPD ####[facility] [address] [address]Dr. Jovanna Oneill THC Positive Abnormal NEGATIVE [facility] Comment on above: Performed By: #### U MICRO, ERUR, DRUGRPD ####[facility] [address] [address]Dr. Jovanna Oneill ER URINE PROFILEon 2 Bilirubin Ql (U) Negative Normal NEGATIVE [facility] Comment on above: Performed By: #### U MICRO, ERUR, DRUGRPD ####[facility] [address] [address]Dr. Jovanna Oneill Clarity (U) CLEAR Normal CLEAR [facility] Comment on above: Performed By: #### U MICRO, ERUR, DRUGRPD ####[facility] [address] [place], [place] [address]Dr. Jovanna Oneill Color (U) LT. YELLOW Normal YELLOW [facility] Comment on above: Performed By: #### U MICRO, ERUR, DRUGRPD ####[facility] [address] [place], [place] [address]Dr. Jovanna Oneill ERUAHD A micrscopic examination will be performed if indicated. Normal The [facility] Comment on above: Performed By: #### U MICRO, ERUR, DRUGRPD ####[facility] [address] [place], [place] [address]Dr. Jovanna Oneill Glucose Ql (U) >1000 Abnormal NEGATIVE [facility] Comment on above: Performed By: #### U MICRO, ERUR, DRUGRPD ####[facility] [address] [address]Dr. Jovanna Oneill Hemoglobin Ql (U) Negative Normal NEGATIVE [facility] Comment on above: Performed By: #### U MICRO, ERUR, DRUGRPD ####[facility] [address] [address]Dr. Jovanna Oneill Ketones Ql (U) Negative Normal NEGATIVE [facility] Comment on above: Performed By: #### U MICRO, ERUR, DRUGRPD ####[facility] [address] [place] [address]Dr. Jovanna Oneill LEUKOCYTES Negative Normal NEGATIVE [facility] Comment on above: Performed By: #### U MICRO, ERUR, DRUGRPD ####[facility] [address] [address]Dr. Rosaliareagan Nino Nitrite Ql (U) Negative Normal NEGATIVE [facility] Comment on above: Performed By: #### U MICRO, ERUR, DRUGRPD ####[facility] [address] [address]Dr. Jovanna Oneill pH (U) 6.5 [pH] Normal 5-9 [facility] Comment on above: Performed By: #### U MICRO, ERUR, DRUGRPD ####[facility] [address] [address]Dr. Jovanna Oneill Protein (U) [Mass/Vol] 30 mg/dL Abnormal NEGATIVE/ TRACE The [facility] Comment on above: Performed By: #### U MICRO, ERUR, DRUGRPD ####[facility] [address] [address]Dr. Jovanna Oneill SPEC GRAVITY 1.015 Normal 1.005-<=1.025 The [facility] Comment on above: Performed By: #### U MICRO, ERUR, DRUGRPD ####[facility] [address] [place] [address]Dr. Jovanna Oneill UR MICRO IND INDICATED Normal [facility] Comment on above: Performed By: #### U MICRO, ERUR, DRUGRPD ####[facility] [address] [address]Dr. Jovanna Oneill Urobilinogen Qn (U) 1.0 {Isabella'U}/dL Normal 0.2 - 1. 0 [facility] Comment on above: Performed By: #### U MICRO, ERUR, DRUGRPD ####[facility] [address] [address]Dr. Jovanna Oneill LACTATE/LACTIC ACIDon 2021 Lactate [Moles/Vol] 1.7 mmol/L Normal 0.4-1.9 [facility] Comment on above: Performed By: #### L ACT #### [facility] [address] [address] [address] Jovanna Oneill PROF 14(COMP METB)on 022 Albumin [Mass/Vol] 3.4 g/dL Normal 3.4-5.0 [facility] Comment on above: Performed By: #### V ITB12 #### [facility] [address] [address] [address] Jovanna Oneill Albumin/Globulin [Mass ratio] 1.1 {ratio} Normal [facility] Comment on above: Performed By: #### V ITB12 #### [facility] [address] [address] [address] Jovanna Oneill ALP [Catalytic activity/Vol] 99 U/L Normal 46-116 [facility] Comment on above: Performed By: #### V ITB12 #### [facility] [address] [address] [address] Jovanna Oneill ALT [Catalytic activity/Vol] 32 U/L Normal 14-59 [facility] Comment on above: Performed By: #### V ITB12 #### [facility] [address] [address] [address] Jovanna Oneill Anion gap [Moles/Vol] 10.0 mmol/L Normal [facility] Comment on above: Performed By: #### V ITB12 #### [facility] [address] [address] [address] Jovanna Oneill AST [Catalytic activity/Vol] 38 U/L Critically high 15-37 [facility] Comment on above: Performed By: #### V ITB12 #### [facility] [address] [address] [address] Jovanna Oneill Bilirubin [Mass/Vol] 0.8 mg/dL Normal 0.2-1.0 [facility] Comment on above: Performed By: #### V ITB12 #### [facility] [address] [place] [address] Dr. Jovanna Oneill Calcium [Mass/Vol] 8.1 mg/dL Critically low 8.5-10.1 Th [facility] Comment on above: Performed By: #### V ITB12 #### [facility] [address] [place] [address] Dr. Jovanna Oneill Chloride [Moles/Vol] 102 mmol/L Normal 98-107 [facility] Comment on above: Performed By: #### V ITB12 #### [facility] [address] [place] [address] Dr. Jovanna Oneill CO2 [Moles/Vol] 31.1 mmol/L Normal 21.0-32.0 [facility] Comment on above: Performed By: #### V ITB12 #### [facility] [address] [place] [address] Dr. Jovanna Oneill Creatinine [Mass/Vol] 0.78 mg/dL Normal 0.55-1.02 [facility] Comment on above: Performed By: #### V ITB12 #### [facility] [address] [place] [address] Dr. Jovanna Oneill EGFR-AF MACEDONIAN >60 Normal >=60 [facility] Comment on above: Performed By: #### V ITB12 #### [facility] [address] [place] [address] Dr. Jovanna Oneill EGFR-NON AF MACEDONIAN >60 Normal >=60 [facility] Comment on above: Performed By: #### V ITB12 #### [facility] [address] [place] [address] Dr. Jovanna Oneill Globulin (S) [Mass/Vol] 3.2 g/dL Normal [facility] Comment on above: Performed By: #### V ITB12 #### [facility] [address] [place] [address] Dr. Jovanna Oneill Glucose [Mass/Vol] 251 mg/dL Critically high 74-106 [facility] Comment on above: Performed By: #### V ITB12 #### [facility] [address] [place] [address] Dr. Jovanna Oneill Potassium [Moles/Vol] 3.1 mmol/L Critically low 3.5-5.1 [facility] Comment on above: Performed By: #### V ITB12 #### [facility] [address] [place] [address] Dr. Jovanna Oneill Protein [Mass/Vol] 6.6 g/dL Normal 6.4-8.2 [facility] Comment on above: Performed By: #### V ITB12 #### [facility] [address] [place] [address] Dr. Jovanna Oneill Sodium [Moles/Vol] 140 mmol/L Normal 136-145 [facility] Comment on above: Performed By: #### V ITB12 #### [facility] [address] [place] [address] Dr. Jovanna Oneill Urea nitrogen [Mass/Vol] 8.0 mg/dL Normal 7.0-18.0 [facility] Comment on above: Performed By: #### V ITB12 #### [facility] [address] [place] [address] Dr. Jovanna Oneill Urea nitrogen/Creatinine [Mass ratio] 10.3 mg/mg Normal [facility] Comment on above: Performed By: #### V ITB12 #### [facility] [address] [place] [address] Dr. Jovanna Oneill TROPONIN, HIGH SENSITIVITYon 04-20-2022 HSTROP 13.8 pg/mL Normal 4.0-51.3 [facility] Comment on above: Result Comment: CUT- OFF POINTS HAVE BEEN ESTABLISHED BASED ON THE FOURTH UNIVERSAL DEFINITIONS OF MYOCARDIAL INFARCTION. THE UPPER REFERENCE LIMIT (URL) OF TROPONIN, DEFINED THE 99TH PERCENTILE OF cTnI DISTRIBUTION IN A REFERENCE POPULATION, HAS BEEN CONFIRMED THE DECISION THRESHOLD FOR ID DIAGNOSIS. Performed By: #### V ITB12 #### [facility] [address] [place], [place] [address] Dr. Jovanna Oneill URINE MICROSCOPIC ONLYon BACTERIA TRACE Abnormal NONE SEEN The [facility] Comment on above: Performed By: #### U MICRO, ERUR, DRUGRPD ####[facility] [address] [address]Dr. Jovanna Oneill Bacteria identified Cx Nom (U) NOT INDICATED Normal [facility] Comment on above: Performed By: #### U MICRO, ERUR, DRUGRPD ####[facility] [address] [place] [address]Dr. Jovanna Oneill CAST SEEN Abnormal NONE SEEN [facility] Comment on above: Performed By: #### U MICRO, ERUR, DRUGRPD ####[facility] [address] [address]Dr. Jovanna Oneill Crystals LM Nom (Urine sed) NONE SEEN Normal NONE SEEN [facility] Comment on above: Performed By: #### U MICRO, ERUR, DRUGRPD ####[facility] [address] [place] [address]Dr. Jovanna Oneill Epithelial cells LM Ql (Urine sed) FEW Abnormal NONE SEEN /RARE [facility] Comment on above: Performed By: #### U MICRO, ERUR, DRUGRPD ####[facility] [address] [place] [address]Dr. Jovanna Oneill HYALINE CAST FEW Normal [facility] Comment on above: Performed By: #### U MICRO, ERUR, DRUGRPD ####[facility] [address] [place] [address]Dr. Jovanna Oneill MUCOUS NONE SEEN Normal NONE SEEN [facility] Comment on above: Performed By: #### U MICRO, ERUR, DRUGRPD ####[facility] [address] [place] [address]Dr. Jovanna Oneill RBC 0-2 Normal 0-2 [facility] Comment on above: Performed By: #### U MICRO, ERUR, DRUGRPD ####[facility] [address] [place] [address]Dr. Jovanna Oneill WBC 0-2 Abnormal NONE SEEN The [facility] Comment on above: Performed By: #### U MICRO, ERUR, DRUGRPD ####[facility] [address] [place], [place] [address]La. Jovanna Oneill XR CHEST 1 Von 04-20-2022 [...] by: Ayaka LEON Date: 2022-04-20 02:33 Normal [facility] XR ANKLE RT MIN 3 VIEWSon [...] by: KOBE HICKEY Date: 2022-03-26 09:41 Normal [facility] Clinical Note 03-05-2023 Note Date & Type [...] by: FRANCES AGUSTIN Date: 2023-03-05 11:36 [facility] Clinical Note 08-30-2022 Note Date & [...] by: FRANCES AGUSTIN Date: 2022-08-30 10:20 [facility] Clinical Note 08-30-2022 Note Date & [...] by: FRANCES AGUSTIN Date: 2022-08-30 10:20 [facility] Clinical Note 06-22-2022 Note Date & [...] by: RJ YANEZ Date: 2022-06-22 07:13 [facility] Clinical Note 06-22-2022 Note Date & [...] by: RJ YANEZ Date: 2022-06-22 07:13 [facility] Summary Purpose Family History No Family History Records FoundNo Family History Records FoundNo Family History Records Found Advance Directives No Advanced Directives Records FoundNo Advanced Directives Records FoundNo Advanced Directives Records Found Additional Source Comments INFORMATION SOURCE (unrecogn ized section and content) DATE CREATED AUTHOR 10/24/2022 Rousseau [facility] DATE CREATED AUTHOR AUTHOR'S ORGANIZ ATION 03/24/2023 [facility] DATE CREATED AUTHOR AUTHOR'S ORGANIZ ATION 05/28/2024 Peytonemely Mojica Ivan ruiz FOR RECORDS PERTAINING TO PATIENTS WHO ARE [...] BE BASED ON THE PRIMARY CLINICAL RECORDS. [facility]. provides no warranty or guarantee of the accuracy or completeness of information in this document.
[2024-06-02 08:42] LABS: Potassium 3.3 mmol/L (3.5-5.1)
[2024-06-02] MEDS: LACTATED RINGER'S SOLUTION 1,000 ML 50 ML IV (08:52)
[2024-06-02] MEDS: CEFAZOLIN SODIUM/DEXTROSE 2 GM/50 ML PIGGYBACK IV (09:05)
--- NOTE | 2024-06-02 10:00 | FL_ITS ---
[address] [address] Patient Name: SULY THORNE MRN: [id number] date: 1975 Sex: F Assigned Patient Location: SURGOUT Current Patient Location: [facility] Accession/Order Number: [id number] Exam Date: 06/02/2024 09:15 Report Date: 06/04/2024 08:32 At the request of: SANTO LOPEZ Procedure: FL fluoroscopy <1hr NON-READ EXAM: FL fluoroscopy <1hr NON-READ HISTORY: TECHNIQUE: FINDINGS: Please see Operative Report. Electronically authenticated by: RADIOLOGIST NO Date: 06/04/2024 08:32
[2024-06-02] MEDS: BUPIVACAINE HCL 0.5% PF 50 MG/10 ML VIAL INJ (10:15)
--- NOTE | 2024-06-02 10:32 | PM.ORPRC ---
Procedure Note Date of procedure: 06/02/24 Surgery Operative Note Operative Note Procedure Date: 06/02/24 Time Out Performed: yes Pre-op Diagnosis: right index finger right index finger open distal phalanx fracture Post-op Diagnosis: same as pre-op Procedures performed: Right index finger irrigation and debridement of skin and subcutaneous tissue with open reduction percutaneous pin insertion Anesthesia: General-LMA Primary Surgeon: Hayden Burnham Complications: None Estimated blood loss (mL): 5 Findings: Right index open distal phalanx fracture with skin sloughing Specimens: Intraoperative cultures Drains: none Incision: Right volar index finger Indications for Procedures: Patient is a 48-year-old female who sustained a crush injury to her right index finger. Found to have a large nearly circumferential laceration that was repaired in ED. Also noted to have a open distal phalanx fracture that was transverse. Patient has a history of diabetes and is a daily smoker. Did recommend operative mention with irrigation and debridement as well as stabilization of the fracture. I counseled patient on smoking cessation to prevent necrosis of the finger. She expressed understanding but still continues to smoke. We did discuss risk and benefits of the surgery. I did discuss that she has a risk of loss of the distal finger due to the nature of the injury as well as her smoking. Informed consent obtained. No guarantees made. Detailed description of Procedure: Patient was taken back to the operative suite where she was transferred over to the operative table. She then underwent anesthesia induction intubation without any complications. We then proceeded to prep and drape the right upper extremity. We had a timeout and the patient, procedure, operative site were confirmed our group in the OR. There was noted to be a approximately 70% circumferential laceration overlying the distal phalanx of the right index finger. We opened up this wound. There is noted to be significant skin sloughing in the region. There was not a lot of bleeding. We did use a knife to sharply debride the wound edges. We did use a knife to remove skin and some nonviable subcutaneous tissue. We did use culture sticks to culture the wound. There was no obvious signs of infection present. The phalanx did appear slightly dusky but did have some bleeding. Did feel that it is worth attempted salvage of this finger. We did copiously irrigated with normal saline and Irrisept solution. Following this there was a displaced transverse fracture of the distal phalanx. We placed .045 K wire in a retrograde fashion fixating the fracture. Following this we then proceeded to close the wound with 3-0 chromic. Soft dressings were applied. Patient taken to PACU in stable condition. Postoperative plan will be for close follow-up with 1 week follow-up. Will perform wound check at that time. She is to maintain her dressings. Outpatient antibiotics and pain control. Other Provider present: No Post Operative care instructions: Maintain surgical dressings. Follow-up in office in 1 week
--- NOTE | 2024-06-02 10:43 | PC.NURSE ---
([id number]) Dr. Wilcox aware of BP. No new orders received.
== END 2024-06-02 11:30 | disposition home or self-care (01) ==
PROVIDERS: Anesthesiology; Visit Provider Student in an Organized Health Care Education/Training Program
PROC: (CPT 1830; principal; 2024-06-02 10:00)
DX: S62.630B Displaced fracture of distal phalanx of right index finger, initial encounter for open fracture (principal); W23.0XXA Caught, crushed, jammed, or pinched between moving objects, initial encounter; F17.210 Nicotine dependence, cigarettes, uncomplicated; Z90.49 Acquired absence of other specified parts of digestive tract; J44.9 Chronic obstructive pulmonary disease, unspecified; I10 Essential (primary) hypertension; K21.9 Gastro-esophageal reflux disease without esophagitis; E07.9 Disorder of thyroid, unspecified
CPT/HCPCS: 26765; 36415; 76000; 84132; 87070; 87075; 87150; 87186; 87205; 93005; 99999; J0131; J0665; J0690; J1100; J1885; J2250; J2405; J2704

== ENCOUNTER 2024-06-08 12:00 | Emergency (ER) | payer OTHER, SELFPAY ==
--- OUTSIDE RECORDS SUMMARY | 2024-06-08 12:05 | XMS_ITS | CCD ---
Author Organization [facility] Care Team Providers Care Heating Fixture Tender Name Role Phone Woo FALCON Attending Unavailable [...] Unavailable SHAMMO, TATUM Primary Care Unavailable SAI, VAUHGN Admitting Unavailable SAI, VAUGHN Attending Unavailable SAI, [...] Attending Unavailable ANA ., DARRIN Admitting Unavailable [facility] Primary Care Unavailable KOBE HICKEY Consulting Unavailable MARKER ., DR MAX Attending Unavailable MARKER ., DR MAX Admitting Unavailable MARKER ., DR MAX Consulting Unavailable [facility] Primary Care Unavailable LEON, JIMMY Consulting Unavailable SHAMMO, TATUM Primary Care Unavailable SAI, VAUGHN Admitting Unavailable SAI, VAUGHN Attending Unavailable SAI, VAUGHN Consulting Unavailable WOO PAIGE Consulting Unavailable SHAMMO, TATUM Consulting Unavailable [facility] Primary Care Unavailable SAI, VAUGHN Admitting Unavailable SAI, VAUGHN Attending Unavailable BEAU, DR RJ Foster Consulting Unavailable HAY ., DR BIRD Consulting Unavailable SAI, VAUGHN Consulting Unavailable ALIA, CAROL ANN Admitting Unavailable ALIA, CAROL ANN Attending Unavailable [facility] Primary Care Unavailable SHAMMO, TATUM Admitting Unavailable SHAMMO, TATUM Attending Unavailable SHAMMO, TATUM Primary Care Unavailable SHAMMO, TATUM Consulting Unavailable [facility] Primary Care Unavailable LUIS EDUARDO, DR LAYA Bryan Admitting Unavailable LUIS EDUARDO, DR LAYA Bryan Attending Unavailable LUIS EDUARDO, DR LAYA Bryan Consulting Unavailable EDWARD, JIMMY Consulting Unavailable SANTO LOPEZ Admitting Unavailable SANTO LOPEZ Attending Unavailable Allergies Allergy Classification Reported Allergen(s) Allergy Type Date of Onset Reaction(s) Facility (1 source) No Known Medication Allergies; Translations: [No Known Medication Allergies] Propensity to adverse reactions (disorder) [facility] Repository Problems Active Problems Problem Classification [...] Other mcc (current) drug therapy; Translations: [OTH JAIL CURRENT DRUG THERAPY] Onset: 02-26-2023 Episodic Other [...] ANGY SMALLS Date: 2023-02-23 13:14 Normal [facility] FREE T4on 02-20-2023 Free T4 [Mass/Vol] 0.65 ng/dL Critically low 0.76-1.46 Th e [facility] Comment on above: Performed By: #### L ACT #### [facility] [address] [address] [address] Jovanna Oneill TSH W/ REFLEX TO FT4on 02-20 TSH 5.032 uIU/mL Critically high 0.358-3.740 The [facility] Comment on above: Performed By: #### L ACT #### [facility] [address] [address] [address] Jovanna Oneill RESPIRATORY PANEL PLUSon Adenovirus Not detected Normal NOT DETECTED The [facility] Comment on above: Performed By: #### R SPLUS ####[facility] [address] [address]Dr. Jovanna Oneill B. Parapertusis Not detected Normal NOT DETECTED The [facility] Comment on above: Performed By: #### R SPLUS ####[facility] [address] [address]Dr. Jovanna Oneill B. Pertussis Not detected Normal NOT DETECTED The [facility] Comment on above: Performed By: #### R SPLUS ####[facility] [address] [address]Dr. Jovanna Oneill Chlamydia Pneumoniae Not detected Normal NOT DETECTED The [facility] Comment on above: Performed By: #### R SPLUS ####[facility] [address] [place], [place] [address]Dr. Jovanna Oneill Coronavirus 229E Not detected Normal NOT DETECTED The [facility] Comment on above: Performed By: #### R SPLUS ####[facility] [address] [place], [place] [address]Dr. Jovanna Oneill Coronavirus HKU1 Not detected Normal NOT DETECTED The [facility] Comment on above: Performed By: #### R SPLUS ####[facility] [address] [place], [place] [address]Dr. Jovanna Oneill Coronavirus NL63 Not detected Normal NOT DETECTED The [facility] Comment on above: Performed By: #### R SPLUS ####[facility] [address] [place], [place] [address]Dr. Jovanna Oneill Coronavirus OC43 Not detected Normal NOT DETECTED The [facility] Comment on above: Performed By: #### R SPLUS ####[facility] [address] [place], [place] [address]Dr. Jovanna Oneill Influenza A H1 Not detected Normal NOT DETECTED The [facility] Comment on above: Performed By: #### R SPLUS ####[facility] [address] [place], [place] [address]Dr. Jovanna Oneill Influenza A H1 2009 Not detected Normal NOT DETECTED [facility] Comment on above: Performed By: #### R SPLUS ####[facility] [address] [place], [place] [address]Dr. Jovanna Oneill Influenza A H3 Not detected Normal NOT DETECTED The [facility] Comment on above: Performed By: #### R SPLUS ####[facility] [address] [place], [place] [address]Dr. Jovanna Oneill Influenza B Not detected Normal NOT DETECTED The [facility] Comment on above: Performed By: #### R SPLUS ####[facility] Ob[address] [place], [place] [address]Dr. Jovanna Oneill Metapneumovirus Not detected Normal NOT DETECTED The [facility] Comment on above: Performed By: #### R SPLUS ####[facility] [address] [place], [place] [address]Dr. Jovanna Oneill Mycoplas. Pneumoniae Not detected Normal NOT DETECTED The [facility] Comment on above: Performed By: #### R SPLUS ####[facility] [address] [place], [place] [address]Dr. Jovanna Oneill Parainfluenza 1 Not detected Normal NOT DETECTED The [facility] Comment on above: Performed By: #### R SPLUS ####[facility] Or[address] [place], [place] [address]Dr. Rosaliareagan Oneill Parainfluenza 2 Not detected Normal NOT DETECTED The [facility] Comment on above: Performed By: #### R SPLUS ####[facility] [address] [place], [place] [address]Dr. Jovanna Oneill Parainfluenza 3 Not detected Normal NOT DETECTED The [facility] Comment on above: Performed By: #### R SPLUS ####[facility] [address] [place], [place] [address]Dr. Jovanna Oneill Parainfluenza 4 Not detected Normal NOT DETECTED The [facility] Comment on above: Performed By: #### R SPLUS ####[facility] [address] [place], [place] [address]Dr. Jovanna Oneill Rhino/Enterovirus Not detected Normal NOT DETECTED The [facility] Comment on above: Performed By: #### R SPLUS ####[facility] [address] [place], [place] [address]Dr. Jovanna Oneill RP2 Header 1 RESPIRATORY PANEL: VIRUSES Normal The [facility] Comment on above: Performed By: #### R SPLUS ####[facility] [address] [place], [place] [address]Dr. Jovanna Oneill RP2 Header 2 RESPIRATORY PANEL: BACTERIA Normal [facility] Comment on above: Performed By: #### R SPLUS ####[facility] Foug[address] [place], [place] [address]Dr. Jovanna Oneill RSV Not detected Normal NOT DETECTED The [facility] Comment on above: Performed By: #### R SPLUS ####[facility] [address] [place], [place] [address]Dr. Jovanna Oneill SARS-CoV-2 (COVID-19) RNA DUC+probe Ql (Unsp spec) Not detected Normal NOT DETECTED The [facility] Comment on above: Performed By: #### R SPLUS ####[facility] [address] [place], [place] [address]XdJhony Oneill MG MAMM SCREEN 3D CHELLY CADon 01-12-2023 MG MAMM SCREEN 3D CHELLY CAD Patient: SULY THORNE Exam Date: 01/12/2023 : 1975 Gender:F Ordering : TATUM ONOFRE Admission #: [id number] Family : Order #: [id number] CLICK HERE TO VIEW EXAM RADIOLOGY REPORT [...] cervical cancer at age 40. LOCATION: [facility] BREAST COMPOSITION: Almost entirely fatty. FINDINGS: DIAGNOSTIC [...] MD on 01/12/2023 at 12:42 Normal [facility] XR DEXA BONE DENSITYon 01-12 [...] RJ YANEZ Date: 2023-01-12 17:10 Normal [facility] GABAPENTIN URINEon 3 Gabapentin, Urine Negative Normal [facility] Comment on above: Performed By: #### G ABAP ####[facility] [address] [address]Dr. Jovanna Oneill DRUG SCREEN RAPID (URINE)on 11-14-2022 AMP Negative Normal NEGATIVE [facility] Comment on above: Performed By: #### V ITB12 #### [facility] [address] [address] [address] Jovanna Oneill BAR Negative Normal NEGATIVE [facility] Comment on above: Performed By: #### V ITB12 #### [facility] [address] [place] [address] Dr. Jovanna Oneill BUP Negative Normal NEGATIVE [facility] Comment on above: Performed By: #### V ITB12 #### [facility] [address] [address] [address] Jovanna Oneill BZO Negative Normal NEGATIVE [facility] Comment on above: Performed By: #### V ITB12 #### [facility] [address] [address] [address] Jovanna Oneill CARA Negative Normal NEGATIVE [facility] Comment on above: Performed By: #### V ITB12 #### [facility] [address] [place] [address] Dr. Jovanna Oneill CUT-OFFS SEE BELOW Normal [...] ng/mL Performed By: #### V ITB12 #### [facility] [address] [place] [address] Dr. Jovanna Oneill DRUG CUT HEADER DRUG CLASS TEST SYSTEM CUT-OFF CONCENTRATIONS ARE FOLLOWS: Normal [facility] Comment on above: Performed By: #### V ITB12 #### [facility] [address] [place] [address] Dr. Jovanna Oneill mAMP Negative Normal NEGATIVE [facility] Comment on above: Performed By: #### V ITB12 #### [facility] [address] [place] [address] Dr. Jovanna Oneill MTD Negative Normal NEGATIVE [facility] Comment on above: Performed By: #### V ITB12 #### [facility] [address] [place] [address] Dr. Jovanna Oneill OPI Positive Abnormal NEGATIVE [facility] Comment on above: Performed By: #### V ITB12 #### [facility] [address] [place] [address] Dr. Jovanna Oneill OXY Negative Normal NEGATIVE [facility] Comment on above: Performed By: #### V ITB12 #### [facility] [address] [place] [address] Dr. Jovanna Oneill PCP Negative Normal NEGATIVE [facility] Comment on above: Performed By: #### V ITB12 #### [facility] [address] [place] [address] Dr. Jovanna Oneill PPX Negative Normal NEGATIVE [facility] Comment on above: Performed By: #### V ITB12 #### [facility] [address] [place] [address] Dr. Jovanna Oneill TCA Negative Normal NEGATIVE [facility] Comment on above: Performed By: #### V ITB12 #### [facility] [address] [place] [address] Dr. Jovanna Oneill THC Positive Abnormal NEGATIVE [facility] Comment on above: Performed By: #### V ITB12 #### [facility] [address] [place] [address] Dr. Jovanna Oneill CBC AUTO DIFFon 10-08-2022 BASO # 0.0 103/ul Normal 0.0-0.1 [facility] Comment on above: Performed By: #### C BC #### [facility] [address] [place] [address] Dr. Jovanna Oneill Basophils/100 WBC (Bld) 0.4 % Normal 0.2-2.0 [facility] Comment on above: Performed By: #### C BC #### [facility] [address] [place] [address] Dr. Jovanna Oneill EO # 0.1 103/ul Normal 0.0-0.7 [facility] Comment on above: Performed By: #### C BC #### [facility] [address] [place] [address] Dr. Jovanna Oneill Eosinophils/100 WBC (Bld) 1.3 % Normal 0.9-7.0 [facility] Comment on above: Performed By: #### C BC #### [facility] [address] [place] [address] Dr. Jovanna Oneill Erythrocyte distribution width (RBC) [Ratio] 12.0 % Normal 11.0-15.0 [facility] Comment on above: Performed By: #### C BC #### [facility] [address] [place] [address] Dr. Jovanna Oneill Hematocrit (Bld) [Volume fraction] 37.8 % Normal 36.0-48.0 [facility] Comment on above: Performed By: #### C BC #### [facility] [address] [place] [address] Dr. Jovanna Oneill Hemoglobin (Bld) [Mass/Vol] 12.8 g/dL Normal 12.0-16.0 [facility] Comment on above: Performed By: #### C BC #### [facility] [address] [place] [address] Dr. Jovanna Oneill IG # 0.02 10e3/ul Normal 0.00-0.03 [facility] Comment on above: Performed By: #### C BC #### [facility] [address] [place] [address] Dr. Jovanna Oneill IG % 0.2 % Normal 0.0-0.5 [facility] Comment on above: Performed By: #### C BC #### [facility] [address] [place] [address] Dr. Jovanna Oneill LYMPH # 3.5 103/ul Normal 1.2-3.8 [facility] Comment on above: Performed By: #### C BC #### [facility] [address] [place] [address] Dr. Jovanna Oneill Lymphocytes/100 WBC (Bld) 37.9 % Normal 20.5-60.0 [facility] Comment on above: Performed By: #### C BC #### [facility] [address] [place] [address] Dr. Jovanna Oneill MANUAL DIFF REQ NO Normal [facility] Comment on above: Performed By: #### C BC #### [facility] [address] [place] [address] Dr. Jovanna Oneill MCH (RBC) [Entitic mass] 31.7 pg Normal 26.7-34.0 [facility] Comment on above: Performed By: #### C BC #### [facility] [address] [place] [address] Dr. Jovanna Oneill MCHC (RBC) [Mass/Vol] 33.9 g/dL Normal 29.9-35.2 [facility] Comment on above: Performed By: #### C BC #### [facility] [address] [place] [address] Dr. Jovanna Oneill MCV (RBC) [Entitic vol] 93.6 fL Normal 81.0-99.0 [facility] Comment on above: Performed By: #### C BC #### [facility] [address] [place] [address] Dr. Jovanna Oneill MONO # 0.5 103/ul Normal 0.3-0.8 [facility] Comment on above: Performed By: #### C BC #### [facility] [address] [place] [address] Dr. Jovanna Oneill Monocytes/100 WBC (Bld) 4.8 % Normal 1.7-12.0 [facility] Comment on above: Performed By: #### C BC #### [facility] [address] [address] [address] Jovanna Oneill NEUT # 5.1 103/ul Normal 1.4-6.5 [facility] Comment on above: Performed By: #### C BC #### [facility] [address] [place] [address] Dr. Jovanna Oneill Neutrophils/100 WBC (Bld) 55.4 % Normal 43.0-75.0 [facility] Comment on above: Performed By: #### C BC #### [facility] [address] [place] [address] Dr. Jovanna Oneill Platelet mean volume (Bld) [Entitic vol] 10.2 fL Normal 9.5-13.5 [facility] Comment on above: Performed By: #### C BC #### [facility] [address] [place] [address] Dr. Jovanna Oneill PLT 181 103/ul Normal 150-450 [facility] Comment on above: Performed By: #### C BC #### [facility] [address] [place] [address] Dr. Jovanna Oneill RBC 4.04 106/ul Critically low 4.20-5.40 [facility] Comment on above: Performed By: #### C BC #### [facility] [address] [place] [address] Dr. Jovanna Oneill WBC 9.3 103/ul Normal 4.0-11.0 [facility] Comment on above: Performed By: #### C BC #### [facility] [address] [address] [address] Jovanna Oneill CRPon 10-08-2022 CRP [Mass/Vol] mg/L Normal <=1.0 [facility] Comment on above: Performed By: #### B MP, CRP ####[facility] [address] [address]Dr. Jovanna Oneill LACTATE/LACTIC ACIDon 2021 Lactate [Moles/Vol] 0.4 mmol/L Normal 0.4-1.9 [facility] Comment on above: Performed By: #### L ACT #### [facility] [address] [place] [address] Dr. Jovanna Oneill PROF CHEM 8 (BAS METB)on Anion gap [Moles/Vol] 12.6 mmol/L Normal [facility] Comment on above: Performed By: #### B MP, CRP #### [facility] [address] [place] [address] Dr. Jovanna Oneill Calcium [Mass/Vol] 8.6 mg/dL Normal 8.5-10.1 [facility] Comment on above: Performed By: #### B MP, CRP #### [facility] [address] [place] [address] Dr. Jovanna Oneill Chloride [Moles/Vol] 104 mmol/L Normal 98-107 [facility] Comment on above: Performed By: #### B MP, CRP #### [facility] [address] [place] [address] Dr. Jovanna Oneill CO2 [Moles/Vol] 26.8 mmol/L Normal 21.0-32.0 [facility] Comment on above: Performed By: #### B MP, CRP #### [facility] [address] [place] [address] Dr. Jovanna Oneill Creatinine [Mass/Vol] 0.52 mg/dL Critically low 0.55-1.02 [facility] Comment on above: Performed By: #### B MP, CRP #### [facility] [address] [place] [address] Dr. Jovanna Oneill EGFR-AF FINNISH >60 Normal >=60 [facility] Comment on above: Performed By: #### B MP, CRP #### [facility] [address] [place] [address] Dr. Jovanna Oneill EGFR-NON AF FINNISH >60 Normal >=60 [facility] Comment on above: Performed By: #### B MP, CRP #### [facility] [address] [place] [address] Dr. Jovanna Oneill Glucose [Mass/Vol] 93 mg/dL Normal 74-106 [facility] Comment on above: Performed By: #### B MP, CRP #### [facility] [address] [address] [address] Jovanna Oneill Potassium [Moles/Vol] 3.4 mmol/L Critically low 3.5-5.1 [facility] Comment on above: Performed By: #### B MP, CRP #### [facility] [address] [address] [address] Jovanna Oenill Sodium [Moles/Vol] 140 mmol/L Normal 136-145 [facility] Comment on above: Performed By: #### B MP, CRP #### [facility] [address] [address] [address] Jovanna Oneill Urea nitrogen [Mass/Vol] 11.0 mg/dL Normal 7.0-18.0 [facility] Comment on above: Performed By: #### B MP, CRP #### [facility] [address] [address] [address] Jovanna Oneill Urea nitrogen/Creatinine [Mass ratio] 21.2 mg/mg Normal [facility] Comment on above: Performed By: #### B MP, CRP #### [facility] [address] [address] [address] Jovanna Oneill SED RATE [facility] 2021 SED RATE 17 mm/hr Normal <=20 [facility] Comment on above: Performed By: #### S EDR ####[facility] [address] [address]Dr. Jovanna Oneill Physician Referralon 022 Physician Referral [id number] [phone] [id number] .[id number]:127 Normal [facility] Physician Referral [id number]#1 .00CD:127 Normal [facility] PROF 14(COMP METB)on 022 Albumin [Mass/Vol] 3.4 g/dL Normal 3.4-5.0 [facility] Comment on above: Performed By: #### V ITB12 #### [facility] [address] [address] [address] Jovanna Oneill Albumin/Globulin [Mass ratio] 1.1 {ratio} Normal [facility] Comment on above: Performed By: #### V ITB12 #### [facility] [address] [address] [address] Jovanna Oneill ALP [Catalytic activity/Vol] 88 U/L Normal 46-116 [facility] Comment on above: Performed By: #### V ITB12 #### [facility] [address] [address] [address] Jovanna Oneill ALT [Catalytic activity/Vol] 11 U/L Critically low 14-59 [facility] Comment on above: Performed By: #### V ITB12 #### [facility] [address] [address] [address] Jovanna Oneill Anion gap [Moles/Vol] 8.7 mmol/L Normal [facility] Comment on above: Performed By: #### V ITB12 #### [facility] [address] [address] [address] Jovanna Oneill AST [Catalytic activity/Vol] 13 U/L Critically low 15-37 [facility] Comment on above: Performed By: #### V ITB12 #### [facility] [address] [address] [address] Jovanna Oneill Bilirubin [Mass/Vol] 0.6 mg/dL Normal 0.2-1.0 [facility] Comment on above: Performed By: #### V ITB12 #### [facility] [address] [address] [address] Jovanna Oneill Calcium [Mass/Vol] 8.7 mg/dL Normal 8.5-10.1 [facility] Comment on above: Performed By: #### V ITB12 #### [facility] [address] [address] [address] Jovanna Oneill Chloride [Moles/Vol] 104 mmol/L Normal 98-107 [facility] Comment on above: Performed By: #### V ITB12 #### [facility] [address] [address] [address] Jovanna Oneill CO2 [Moles/Vol] 31.9 mmol/L Normal 21.0-32.0 [facility] Comment on above: Performed By: #### V ITB12 #### [facility] [address] [address] [address] Jovanna Oneill Creatinine [Mass/Vol] 0.65 mg/dL Normal 0.55-1.02 [facility] Comment on above: Performed By: #### V ITB12 #### [facility] [address] [address] [address] Jovanna Oneill EGFR-AF FINNISH >60 Normal >=60 [facility] Comment on above: Performed By: #### V ITB12 #### [facility] [address] [address] [address] Jovanna Oneill EGFR-NON AF FINNISH >60 Normal >=60 [facility] Comment on above: Performed By: #### V ITB12 #### [facility] [address] [address] [address] Jovanna Oneill Globulin (S) [Mass/Vol] 3.2 g/dL Normal [facility] Comment on above: Performed By: #### V ITB12 #### [facility] [address] [address] [address] Jovanna Oneill Glucose [Mass/Vol] 91 mg/dL Normal 74-106 [facility] Comment on above: Performed By: #### V ITB12 #### [facility] [address] [address] [address] Jovanna Oneill Potassium [Moles/Vol] 3.6 mmol/L Normal 3.5-5.1 [facility] Comment on above: Performed By: #### V ITB12 #### [facility] [address] [address] [address] Jovanna Oneill Protein [Mass/Vol] 6.6 g/dL Normal 6.4-8.2 [facility] Comment on above: Performed By: #### V ITB12 #### [facility] [address] [place] [address] Dr. Jovanna Oneill Sodium [Moles/Vol] 141 mmol/L Normal 136-[address] [facility] [facility] Comment on above: Performed By: #### V ITB12 #### [facility] [address] [place] [address] Dr. Jovanna Oneill Urea nitrogen [Mass/Vol] 4.0 mg/dL Critically low 7.0-18.0 [facility] Comment on above: Performed By: #### V ITB12 #### [facility] [address] [place] [address] Dr. Jovanna Oneill Urea nitrogen/Creatinine [Mass ratio] 6.2 mg/mg Normal [facility] Comment on above: Performed By: #### V ITB12 #### [facility] [address] [place] [address] Dr. Jovanna Oneill HEPATITIS C AB CASCADE TO QU ANT PCR GENOon 09-13-2022 HCV AB <0.1 Normal 0.0-0.9 [facility] Comment on above: Performed By: #### H EPCASC #### [facility] [address] [place] [address] Dr. Jovanna Oneill Interpretation: Comment Normal [facility] Comment on above: Result Comment: Nega tive Not infected with HCV, unless recent infection is suspected or other evidence exists to indicate HCV infection. Performed By: #### H EPCASC #### [facility] [address] [place] [address] Dr. Jovanna Oneill CBC AUTO DIFFon 09-12-2022 BASO # 0.0 103/ul Normal 0.0-0.1 [facility] Comment on above: Performed By: #### C BC #### [facility] [address] [place] [address] Dr. Jovanna Oneill Basophils/100 WBC (Bld) 0.3 % Normal 0.2-2.0 [facility] Comment on above: Performed By: #### C BC #### [facility] [address] [place] [address] Dr. Jovanna Oneill EO # 0.1 103/ul Normal 0.0-0.7 [facility] Comment on above: Performed By: #### C BC #### [facility] [address] [place] [address] Dr. Jovanna Oneill Eosinophils/100 WBC (Bld) 0.7 % Critically low 0.9-7.0 [facility] Comment on above: Performed By: #### C BC #### [facility] [address] [place] [address] Dr. Jovanna Oneill Erythrocyte distribution width (RBC) [Ratio] 12.3 % Normal 11.0-15.0 [facility] Comment on above: Performed By: #### C BC #### [facility] [address] [place] [address] Dr. Jovanna Oneill Hematocrit (Bld) [Volume fraction] 40.2 % Normal 36.0-48.0 [facility] Comment on above: Performed By: #### C BC #### [facility] [address] [place] [address] Dr. Jovanna Oneill Hemoglobin (Bld) [Mass/Vol] 13.4 g/dL Normal 12.0-16.0 [facility] Comment on above: Performed By: #### C BC #### [facility] [address] [place] [address] Dr. Jovanna Oneill IG # 0.02 10e3/ul Normal 0.00-0.03 [facility] Comment on above: Performed By: #### C BC #### [facility] [address] [place] [address] Dr. Jovanna Oneill IG % 0.3 % Normal 0.0-0.5 [facility] Comment on above: Performed By: #### C BC #### [facility] [address] [place] [address] Dr. Jovanna Oneill LYMPH # 2.2 103/ul Normal 1.2-3.8 [facility] Comment on above: Performed By: #### C BC #### [facility] [address] [place] [address] Dr. Jovanna Oneill Lymphocytes/100 WBC (Bld) 31.9 % Normal 20.5-60.0 [facility] Comment on above: Performed By: #### C BC #### [facility] [address] [place] [address] Dr. Jovanna Oneill MANUAL DIFF REQ NO Normal [facility] Comment on above: Performed By: #### C BC #### [facility] [address] [place] [address] Dr. Jovanna Oneill MCH (RBC) [Entitic mass] 31.8 pg Normal 26.7-34.0 [facility] Comment on above: Performed By: #### C BC #### [facility] [address] [place] [address] Dr. Jovanna Oneill MCHC (RBC) [Mass/Vol] 33.3 g/dL Normal 29.9-35.2 [facility] Comment on above: Performed By: #### C BC #### [facility] [address] [place] [address] Dr. Jovanna Oneill MCV (RBC) [Entitic vol] 95.5 fL Normal 81.0-99.0 [facility] Comment on above: Performed By: #### C BC #### [facility] [address] [place] [address] Dr. Jovanna Oneill MONO # 0.3 103/ul Normal 0.3-0.8 [facility] Comment on above: Performed By: #### C BC #### [facility] [address] [place] [address] Dr. Jovanna Oneill Monocytes/100 WBC (Bld) 4.4 % Normal 1.7-12.0 [facility] Comment on above: Performed By: #### C BC #### [facility] [address] [place] [address] Dr. Jovanna Oneill NEUT # 4.4 103/ul Normal 1.4-6.5 [facility] Comment on above: Performed By: #### C BC #### [facility] [address] [place] [address] Dr. Jovanna Oneill Neutrophils/100 WBC (Bld) 62.4 % Normal 43.0-75.0 [facility] Comment on above: Performed By: #### C BC #### [facility] [address] [address] [address] Jovanna Oneill Platelet mean volume (Bld) [Entitic vol] 10.9 fL Normal 9.5-13.5 [facility] Comment on above: Performed By: #### C BC #### [facility] [address] [address] [address] Jovanna Oneill PLT 179 103/ul Normal 150-450 [facility] Comment on above: Performed By: #### C BC #### [facility] [address] [address] [address] Jovanna Oneill RBC 4.21 106/ul Normal 4.20-5.40 [facility] Comment on above: Performed By: #### C BC #### [facility] [address] [place] [address] Dr. Jovanna Oneill WBC 7.0 103/ul Normal 4.0-11.0 [facility] Comment on above: Performed By: #### C BC #### [facility] [address] [place] [address] Dr. Jovanna Oneill GLYCOHEMOGLOBIN A1Con 2021 ADA RECOMMENDATION SEE BELOW Normal [facility] Comment on above: Result Comment: ADA RECOMMENDED LIMIT 4.0 - 6.0 ADA THERAPEUTIC TARGET < 7.0 ACTION SUGGESTED > 7.0 Performed By: #### L ACT #### [facility] [address] [place] [address] Dr. Jovanna Oneill Glucose [Mass/Vol] 105 mg/dL Normal [facility] Comment on above: Performed By: #### L ACT #### [facility] [address] [place] [address] Dr. Jovanna Oneill HbA1c (Bld) [Mass fraction] 5.3 % Normal 4.5-6.2 [facility] Comment on above: Performed By: #### L ACT #### [facility] [address] [place] [address] Dr. Jovanna Oneill LIPID PROFILEon 09-12-2022 CHOL-HDL RATIO NORM SEE BELOW Normal [facility] Comment on above: Result Comment: 3.3 - 4.4 LOW RISK 4.4 - 7.1 AVERAGE RISK 7.1 - 11.0 MODERATE RISK >11.0 HIGH RISK Performed By: #### C MP, LIPID #### [facility] [address] [address] [address] Jovanna Oneill Cholesterol [Mass/Vol] 135 mg/dL Normal <=200 [facility] Comment on above: Performed By: #### C MP, LIPID #### [facility] [address] [address] [address] Jovanna Oneill Cholesterol in HDL [Mass/Vol] 35 mg/dL Critically low 40-60 [facility] Comment on above: Performed By: #### C MP, LIPID #### [facility] [address] [address] [address] Jovanna Oneill Cholesterol in LDL [Mass/Vol] 84.8 mg/dL Normal [facility] Comment on above: Performed By: #### C MP, LIPID #### [facility] [address] [address] [address] Jovanna Oneill Cholesterol.total/Cho lesterol in HDL [Mass ratio] 3.9 {ratio} Normal [facility] Comment on above: Performed By: #### C MP, LIPID #### [facility] [address] [address] [address] Jovanna Oneill HDL NORMAL > or = 60 mg/dl - LO W CARDIOVASCULAR RISK <40 mg/dl - HIGH CARDIOVASCULAR RISK Normal [facility] Comment on above: Performed By: #### C MP, LIPID #### [facility] [address] [address] [address] Jovanna Oneill LDL CALC NORMAL SEE BELOW Normal [facility] Comment on above: Result Comment: <100 mg/dl OPTIMAL 100 - 129 mg/dl NEAR OR ABOVE OPTIMAL 130 - 159 mg/dl BORDERLINE HIGH 160 - 189 mg/dl HIGH >190 mg/dl VERY HIGH Performed By: #### C MP, LIPID #### [facility] [address] [address] [address] Jovanna Oneill Triglyceride [Mass/Vol] 76 mg/dL Normal <=150 [facility] Comment on above: Performed By: #### C MP, LIPID #### [facility] [address] [place] [address] Dr. Jovanna Oneill VLDL CALC 15.2 mg/dL Normal [facility] Comment on above: Performed By: #### C MP, LIPID #### [facility] [address] [place] [address] Dr. Jovanna Oneill PROF 14(COMP METB)on 022 Albumin [Mass/Vol] 3.5 g/dL Normal 3.4-5.0 [facility] Comment on above: Performed By: #### C MP, LIPID #### [facility] [address] [place] [address] Dr. Jovanna Oneill Albumin/Globulin [Mass ratio] 1.1 {ratio} Normal [facility] Comment on above: Performed By: #### C MP, LIPID #### [facility] [address] [place] [address] Dr. Jovanna Oneill ALP [Catalytic activity/Vol] 79 U/L Normal 46-116 [facility] Comment on above: Performed By: #### C MP, LIPID #### [facility] [address] [place] [address] Dr. Jovanna Oneill ALT [Catalytic activity/Vol] 15 U/L Normal 14-59 [facility] Comment on above: Performed By: #### C MP, LIPID #### [facility] [address] [place] [address] Dr. Jovanna Oneill Anion gap [Moles/Vol] 4.9 mmol/L Normal [facility] Comment on above: Performed By: #### C MP, LIPID #### [facility] [address] [place] [address] Dr. Jovanna Oneill AST [Catalytic activity/Vol] 17 U/L Normal 15-37 [facility] Comment on above: Performed By: #### C MP, LIPID #### [facility] [address] [place] [address] Dr. Jovanna Oneill Bilirubin [Mass/Vol] 0.4 mg/dL Normal 0.2-1.0 [facility] Comment on above: Performed By: #### C MP, LIPID #### [facility] [address] [place] [address] Dr. Jovanna Oneill Calcium [Mass/Vol] 8.7 mg/dL Normal 8.5-10.1 [facility] Comment on above: Performed By: #### C MP, LIPID #### [facility] [address] [place] [address] Dr. Jovanna Oneill Chloride [Moles/Vol] 103 mmol/L Normal 98-107 [facility] Comment on above: Performed By: #### C MP, LIPID #### [facility] [address] [place] [address] Dr. Jovanna Oneill CO2 [Moles/Vol] 35.8 mmol/L Critically high 21.0-32.0 [facility] Comment on above: Performed By: #### C MP, LIPID #### [facility] [address] [place] [address] Dr. Jovanna Oneill Creatinine [Mass/Vol] 0.70 mg/dL Normal 0.55-1.02 [facility] Comment on above: Performed By: #### C MP, LIPID #### [facility] [address] [place] [address] Dr. Jovanna Oneill EGFR-AF FINNISH >60 Normal >=60 [facility] Comment on above: Performed By: #### C MP, LIPID #### [facility] [address] [place] [address] Dr. Jovanna Oneill EGFR-NON AF FINNISH >60 Normal >=60 [facility] Comment on above: Performed By: #### C MP, LIPID #### [facility] [address] [place] [address] Dr. Jovanna Oneill Globulin (S) [Mass/Vol] 3.2 g/dL Normal [facility] Comment on above: Performed By: #### C MP, LIPID #### [facility] [address] [place] [address] Dr. Jovanna Oneill Glucose [Mass/Vol] 86 mg/dL Normal 74-106 [facility] Comment on above: Performed By: #### C MP, LIPID #### [facility] [address] [address] [address] Jovanna Oneill Potassium [Moles/Vol] 2.7 mmol/L Critically low 3.5-5.1 [facility] Comment on above: Performed By: #### C MP, LIPID #### [facility] [address] [address] [address] Jovanna Oneill Protein [Mass/Vol] 6.7 g/dL Normal 6.4-8.2 [facility] Comment on above: Performed By: #### C MP, LIPID #### [facility] [address] [place] [address] Dr. Jovanna Oneill Sodium [Moles/Vol] 141 mmol/L Normal 136-145 [facility] Comment on above: Performed By: #### C MP, LIPID #### [facility] [address] [address] [address] Jovanna Oneill Urea nitrogen [Mass/Vol] 6.0 mg/dL Critically low 7.0-18.0 [facility] Comment on above: Performed By: #### C MP, LIPID #### [facility] [address] [place] [address] Dr. Jovanna Oneill Urea nitrogen/Creatinine [Mass ratio] 8.6 mg/mg Normal [facility] Comment on above: Performed By: #### C MP, LIPID #### [facility] [address] [place] [address] Dr. Jovanna Oneill US THYROIDon 09-12-2022 US [...] above: Performed By: #### V ITB12 #### [facility] [address] [place] [address] CSPINE WO CONon [...] MAN VILLALOBOS Date: 2022-08-24 18:11 Normal [facility] CT NECK ST W CONon 2 CT [...] WOO PAIGE Date: 2022-08-16 23:10 Normal [facility] CBC AUTO DIFFon 08-16-2022 BASO # 0.0 103/ul Normal 0.0-0.1 [facility] Comment on above: Performed By: #### C BC ####[facility] [address] [address]Dr. Jovanna Oneill Basophils/100 WBC (Bld) 0.2 % Normal 0.2-2.0 [facility] Comment on above: Performed By: #### C BC ####[facility] [address] [address]DrJhony Oneill EO # 0.1 103/ul Normal 0.0-0.7 [facility] Comment on above: Performed By: #### C BC ####[facility] [address] [address]DrJhony Oneill Eosinophils/100 WBC (Bld) 0.7 % Critically low 0.9-7.0 [facility] Comment on above: Performed By: #### C BC ####[facility] [address] [address]DrJhony Oneill Erythrocyte distribution width (RBC) [Ratio] 12.1 % Normal 11.0-15.0 [facility] Comment on above: Performed By: #### C BC ####[facility] [address] [address]Dr. Jovanna Oneill Hematocrit (Bld) [Volume fraction] 38.8 % Normal 36.0-48.0 [facility] Comment on above: Performed By: #### C BC ####[facility] [address] [address]Dr. Jovanna Oneill Hemoglobin (Bld) [Mass/Vol] 12.8 g/dL Normal 12.0-16.0 [facility] Comment on above: Performed By: #### C BC ####[facility] [address] [address]Dr. Jovanna Oneill IG # 0.06 10e3/ul Critically high 0.00-0.03 [facility] Comment on above: Performed By: #### C BC ####[facility] [address] [address]Dr. Jovanna Oneill IG % 0.4 % Normal 0.0-0.5 [facility] Comment on above: Performed By: #### C BC ####[facility] [address] [place], [place] [address]Dr. Jovanna Oneill LYMPH # 2.5 103/ul Normal 1.2-3.8 [facility] Comment on above: Performed By: #### C BC ####[facility] [address] [place], [place] [address]DrJhony Oneill Lymphocytes/100 WBC (Bld) 18.1 % Critically low 20.5-60.0 [facility] Comment on above: Performed By: #### C BC ####[facility] [address] [address]DrJhony Oneill MANUAL DIFF REQ NO Normal [facility] Comment on above: Performed By: #### C BC ####[facility] [address] [address]Dr. Jovanna Oneill MCH (RBC) [Entitic mass] 32.0 pg Normal 26.7-34.0 [facility] Comment on above: Performed By: #### C BC ####[facility] [address] [place], [place] [address]Dr. Jovanna Oneill MCHC (RBC) [Mass/Vol] 33.0 g/dL Normal 29.9-35.2 [facility] Comment on above: Performed By: #### C BC ####[facility] [address] [id number]. Jovanna Oneill MCV (RBC) [Entitic vol] 97.0 fL Normal 81.0-99.0 [facility] Comment on above: Performed By: #### C BC ####[facility] [address] [place], [place] [address]DrJhony Oneill MONO # 0.6 103/ul Normal 0.3-0.8 [facility] Comment on above: Performed By: #### C BC ####[facility] [address] [place], [place] [address]Dr. Jovanna Oneill Monocytes/100 WBC (Bld) 4.5 % Normal 1.7-12.0 [facility] Comment on above: Performed By: #### C BC ####[facility] [address] [place], [place] [address]Dr. Jovanna Oneill NEUT # 10.4 103/ul Critically high 1.4-6.5 [facility] Comment on above: Performed By: #### C BC ####[facility] [address] [place], [place] [address]Dr. Rosaliareagan Oneill Neutrophils/100 WBC (Bld) 76.1 % Critically high 43.0-75.0 [facility] Comment on above: Performed By: #### C BC ####[facility] [address] [place], [place] [address]Dr. Jovanna Oneill Platelet mean volume (Bld) [Entitic vol] 10.9 fL Normal 9.5-13.5 [facility] Comment on above: Performed By: #### C BC ####[facility] [address] [place], [place] [address]Dr. Jovanna Oneill PLT 193 103/ul Normal 150-450 [facility] Comment on above: Performed By: #### C BC ####[facility] [address] [place], [place] [id number] Oneill RBC 4.00 106/ul Critically low 4.20-5.40 [facility] Comment on above: Performed By: #### C BC ####[facility] [address] [place], [place] [address]BaJhony Oneill WBC 13.7 103/ul Critically high 4.0-11.0 [facility] Comment on above: Performed By: #### C BC ####[facility] [address] [id number] Oneill FREE T4on 08-16-2022 Free T4 [Mass/Vol] 0.68 ng/dL Critically low 0.76-1.46 [facility] Comment on above: Performed By: #### L ACT #### [facility] [address] [place] [address] Dr. Jovanna Oneill HS-CRPon 08-16-2022 HS-CRP 1.04 mg/L Normal <=3.00 [facility] Comment on above: Performed By: #### L ACT #### [facility] [address] [place] [address] Dr. Jovanna Oneill PROF 14(COMP METB)on 022 Albumin [Mass/Vol] 3.5 g/dL Normal 3.4-5.0 [facility] Comment on above: Performed By: #### V ITB12 #### [facility] [address] [place] [address] Dr. Jovanna Oneill Albumin/Globulin [Mass ratio] 1.1 {ratio} Normal [facility] Comment on above: Performed By: #### V ITB12 #### [facility] [address] [place] [address] Dr. Jovanna Oneill ALP [Catalytic activity/Vol] 82 U/L Normal 46-116 [facility] Comment on above: Performed By: #### V ITB12 #### [facility] [address] [place] [address] Dr. Jovanna Oneill ALT [Catalytic activity/Vol] 17 U/L Normal 14-59 [facility] Comment on above: Performed By: #### V ITB12 #### [facility] [address] [address] [address] Jovanna Oneill Anion gap [Moles/Vol] 9.6 mmol/L Normal [facility] Comment on above: Performed By: #### V ITB12 #### [facility] [address] [address] [address] Jovanna Oneill AST [Catalytic activity/Vol] 17 U/L Normal 15-37 [facility] Comment on above: Performed By: #### V ITB12 #### [facility] [address] [place] [address] Dr. Jovanna Oneill Bilirubin [Mass/Vol] 0.4 mg/dL Normal 0.2-1.0 [facility] Comment on above: Performed By: #### V ITB12 #### [facility] [address] [place] [address] Dr. Jovanna Oneill Calcium [Mass/Vol] 8.7 mg/dL Normal 8.5-10.1 [facility] Comment on above: Performed By: #### V ITB12 #### [facility] [address] [place] [address] Dr. Jovanna Oneill Chloride [Moles/Vol] 105 mmol/L Normal 98-107 [facility] Comment on above: Performed By: #### V ITB12 #### [facility] [address] [place] [address] Dr. Jovanna Oneill CO2 [Moles/Vol] 30.9 mmol/L Normal 21.0-32.0 [facility] Comment on above: Performed By: #### V ITB12 #### [facility] [address] [place] [address] Dr. Jovanna Oneill Creatinine [Mass/Vol] 0.69 mg/dL Normal 0.55-1.02 [facility] Comment on above: Performed By: #### V ITB12 #### [facility] [address] [place] [address] Dr. Jovanna Oneill EGFR-AF FINNISH >60 Normal >=60 [facility] Comment on above: Performed By: #### V ITB12 #### [facility] [address] [address] [address] Jovanna Oneill EGFR-NON AF FINNISH >60 Normal >=60 [facility] Comment on above: Performed By: #### V ITB12 #### [facility] [address] [address] [address] Jovanna Oneill Globulin (S) [Mass/Vol] 3.1 g/dL Normal [facility] Comment on above: Performed By: #### V ITB12 #### [facility] [address] [address] [address] Jovanna Oneill Glucose [Mass/Vol] 84 mg/dL Normal 74-106 [facility] Comment on above: Performed By: #### V ITB12 #### [facility] [address] [place] [address] Dr. Jovanna Oneill Potassium [Moles/Vol] 3.5 mmol/L Normal 3.5-5.1 [facility] Comment on above: Performed By: #### V ITB12 #### [facility] [address] [address] [address] Jovanna Oneill Protein [Mass/Vol] 6.6 g/dL Normal 6.4-8.2 [facility] Comment on above: Performed By: #### V ITB12 #### [facility] [address] [place] [address] Dr. Jovanna Oneill Sodium [Moles/Vol] 142 mmol/L Normal 136-145 [facility] Comment on above: Performed By: #### V ITB12 #### [facility] [address] [address] [address] Jovanna Oneill Urea nitrogen [Mass/Vol] 7.0 mg/dL Normal 7.0-18.0 [facility] Comment on above: Performed By: #### V ITB12 #### [facility] [address] [address] [address] Jovanna Oneill Urea nitrogen/Creatinine [Mass ratio] 10.1 mg/mg Normal [facility] Comment on above: Performed By: #### V ITB12 #### [facility] [address] [address] [address] Jovanna Oneill PROF CHEM 8 (BAS METB)on Anion gap [Moles/Vol] 8.5 mmol/L Normal [facility] Comment on above: Performed By: #### L ACT #### [facility] [address] [address] [address] Jovanna Oneill Calcium [Mass/Vol] 8.3 mg/dL Critically low 8.5-10.1 [facility] Comment on above: Performed By: #### L ACT #### [facility] Laboratory [address] [place] [address] Dr. Jovanna Oneill Chloride [Moles/Vol] 105 mmol/L Normal 98-107 [facility] Comment on above: Performed By: #### L ACT #### [facility] Laboratory [address] [place] [address] Dr. Jovanna Oneill CO2 [Moles/Vol] 28.4 mmol/L Normal 21.0-32.0 [facility] Comment on above: Performed By: #### L ACT #### [facility] Laboratory [address] [place] [address] Dr. Jovanna Oneill Creatinine [Mass/Vol] 0.72 mg/dL Normal 0.55-1.02 [facility] Comment on above: Performed By: #### L ACT #### [facility] Laboratory [address] [place] [address] Dr. Jovanna Oneill EGFR-AF FINNISH >60 Normal >=60 [facility] Comment on above: Performed By: #### L ACT #### [facility] Laboratory [address] [place] [address] Dr. Jovanna Oneill EGFR-NON AF FINNISH >60 Normal >=60 [facility] Comment on above: Performed By: #### L ACT #### [facility] Laboratory [address] [place] [address] Dr. Jovanna Oneill Glucose [Mass/Vol] 242 mg/dL Critically high 74-106 [facility] Comment on above: Performed By: #### L ACT #### [facility] Laboratory [address] [place] [address] Dr. Jovanna Oneill Potassium [Moles/Vol] 2.9 mmol/L Critically low 3.5-5.1 [facility] Comment on above: Performed By: #### L ACT #### [facility] Laboratory [address] [address] [address] Jovanna Oneill Sodium [Moles/Vol] 138 mmol/L Normal 136-145 [facility] Comment on above: Performed By: #### L ACT #### [facility] Laboratory [address] [address] [address] Jovanna Oneill Urea nitrogen [Mass/Vol] 5.0 mg/dL Critically low 7.0-18.0 [facility] Comment on above: Performed By: #### L ACT #### [facility] Laboratory [address] [address] [address] Jovanna Oneill Urea nitrogen/Creatinine [Mass ratio] 6.9 mg/mg Normal [facility] Comment on above: Performed By: #### L ACT #### [facility] Laboratory [address] [place] [address] Dr. Jovanna Oneill TSHon 08-16-2022 TSH 4.977 uIU/mL Critically high 0.358-3.740 [facility] Comment on above: Performed By: #### V ITB12 #### [facility] Laboratory [address] [place] [address] ABD/PELVIS WO CONon [...] Ayaka LEON Date: 2022-05-02 03:06 Normal [facility] DRUG SCREEN RAPID (URINE)on 05-02-2022 AMP Negative Normal NEGATIVE [facility] Comment on above: Performed By: #### L ACT #### [facility] Laboratory [address] [place] [address] Dr. Jovanna Oneill BAR Negative Normal NEGATIVE [facility] Comment on above: Performed By: #### L ACT #### [facility] [address] [address] [address] Jovanna Oneill BUP Negative Normal NEGATIVE [facility] Comment on above: Performed By: #### L ACT #### [facility] [address] [address] [address] Jovanna Oneill BZO Negative Normal NEGATIVE [facility] Comment on above: Performed By: #### L ACT #### [facility] [address] [place] [address] Dr. Jovanna Oneill CARA Negative Normal NEGATIVE [facility] Comment on above: Performed By: #### L ACT #### [facility] [address] [place] [address] Dr. Jovanna Oneill CUT-OFFS SEE BELOW Normal [facility] Comment on above: Result Comment: [...] ng/mL Performed By: #### L ACT #### [facility] [address] [place] [address] Dr. Jovanna Oneill DRUG CUT HEADER DRUG CLASS TEST SYSTEM CUT-OFF CONCENTRATIONS ARE FOLLOWS: Normal [facility] Comment on above: Performed By: #### L ACT #### [facility] [address] [place] [address] Dr. Jovanna Oneill mAMP Negative Normal NEGATIVE [facility] Comment on above: Performed By: #### L ACT #### [facility] [address] [place] [address] Dr. Jovanna Oneill MTD Negative Normal NEGATIVE [facility] Comment on above: Performed By: #### L ACT #### [facility] [address] [place] [address] Dr. Jovanna Oneill OPI Positive Abnormal NEGATIVE [facility] Comment on above: Performed By: #### L ACT #### [facility] [address] [place] [address] Dr. Jovanna Oneill OXY Negative Normal NEGATIVE [facility] Comment on above: Performed By: #### L ACT #### [facility] [address] [place] [address] Dr. Jovanna Oneill PCP Negative Normal NEGATIVE [facility] Comment on above: Performed By: #### L ACT #### [facility] [address] [place] [address] Dr. Jovanna Oneill PPX Negative Normal NEGATIVE [facility] Comment on above: Performed By: #### L ACT #### [facility] [address] [place] [address] Dr. Jovanna Oneill TCA Negative Normal NEGATIVE [facility] Comment on above: Performed By: #### L ACT #### [facility] [address] [place] [address] Dr. Jovanna Oneill THC Positive Abnormal NEGATIVE [facility] Comment on above: Performed By: #### L ACT #### [facility] [address] [place] [address] Dr. Jovanna Oneill ER URINE PROFILEon 2 Bilirubin Ql (U) Negative Normal NEGATIVE [facility] Comment on above: Performed By: #### L ACT #### [facility] [address] [place] [address] Dr. Jovanna Oneill Clarity (U) CLEAR Normal CLEAR [facility] Comment on above: Performed By: #### L ACT #### [facility] [address] [place] [address] Dr. Jovanna Oneill Color (U) LT. YELLOW Normal YELLOW [facility] Comment on above: Performed By: #### L ACT #### [facility] [address] [place] [address] Dr. Jovanna SANTIAGO A micrscopic examination will be performed if indicated. Normal [facility] Comment on above: Performed By: #### L ACT #### [facility] [address] [place] [address] Dr. Jovanna Oneill Glucose Ql (U) Negative Normal NEGATIVE [facility] Comment on above: Performed By: #### L ACT #### [facility] [address] [place] [address] Dr. Jovanna Oneill Hemoglobin Ql (U) Negative Normal NEGATIVE [facility] Comment on above: Performed By: #### L ACT #### [facility] [address] [place] [address] Dr. Jovanna Oneill Ketones Ql (U) Negative Normal NEGATIVE [facility] Comment on above: Performed By: #### L ACT #### [facility] [address] [place] [address] Dr. Jovanna Oneill LEUKOCYTES Negative Normal NEGATIVE [facility] Comment on above: Performed By: #### L ACT #### [facility] [address] [place] [address] Dr. Jovanna Oneill Nitrite Ql (U) Negative Normal NEGATIVE [facility] Comment on above: Performed By: #### L ACT #### [facility] [address] [place] [address] Dr. Jovanna Oneill pH (U) 6.0 [pH] Normal 5-9 [facility] Comment on above: Performed By: #### L ACT #### [facility] [address] [place] [address] Dr. Jovanna Oneill SPEC GRAVITY <=1.005 Abnormal 1.005-<=1.025 [facility] Comment on above: Performed By: #### L ACT #### [facility] [address] [place] [address] Dr. Jovanna Oneill UA PROTEIN Negative Normal NEGATIVE/ TRACE [facility] Comment on above: Performed By: #### L ACT #### [facility] [address] [place] [address] Dr. Jovanna Oneill UR MICRO IND NOT INDICATED Normal [facility] Comment on above: Performed By: #### L ACT #### [facility] [address] [place] [address] Dr. Jovanna Oneill Urobilinogen Qn (U) 0.2 {Isabella'U}/dL Normal 0.2 - 1. 0 [facility] Comment on above: Performed By: #### L ACT #### [facility] [address] [place] [address] Dr. Jovanna Oneill CBC AUTO DIFFon 04-20-2022 BASO # 0.0 103/ul Normal 0.0-0.1 [facility] Comment on above: Performed By: #### L ACT #### [facility] [address] [place] [address] Dr. Jovanna Oneill Basophils/100 WBC (Bld) 0.1 % Critically low 0.2-2.0 [facility] Comment on above: Performed By: #### L ACT #### [facility] [address] [place] [address] Dr. Jovanna Oneill EO # 0.0 103/ul Normal 0.0-0.7 [facility] Comment on above: Performed By: #### L ACT #### [facility] [address] [place] [address] Dr. Jovanna Oneill Eosinophils/100 WBC (Bld) 0.1 % Critically low 0.9-7.0 [facility] Comment on above: Performed By: #### L ACT #### [facility] [address] [place] [address] Dr. Jovanna Oneill Erythrocyte distribution width (RBC) [Ratio] 12.6 % Normal 11.0-15.0 [facility] Comment on above: Performed By: #### L ACT #### [facility] [address] [place] [address] Dr. Jovanna Oneill Hematocrit (Bld) [Volume fraction] 38.8 % Normal 36.0-48.0 [facility] Comment on above: Performed By: #### L ACT #### [facility] [address] [place] [address] Dr. Jovanna Oneill Hemoglobin (Bld) [Mass/Vol] 12.6 g/dL Normal 12.0-16.0 [facility] Comment on above: Performed By: #### L ACT #### [facility] [address] [place] [address] Dr. Jovanna Oneill IG # 0.13 10e3/ul Critically high 0.00-0.03 [facility] Comment on above: Performed By: #### L ACT #### [facility] [address] [place] [address] Dr. Jovanna Oneill IG % 1.0 % Critically high 0.0-0.5 [facility] Comment on above: Performed By: #### L ACT #### [facility] [address] [place] [address] Dr. Jovanna Oneill LYMPH # 1.1 103/ul Critically low 1.2-3.8 [facility] Comment on above: Performed By: #### L ACT #### [facility] [address] [place] [address] Dr. Jovanna Oneill Lymphocytes/100 WBC (Bld) 8.3 % Critically low 20.5-60.0 [facility] Comment on above: Performed By: #### L ACT #### [facility] [address] [place] [address] Dr. Jovanna Oneill MANUAL DIFF REQ NO Normal [facility] Comment on above: Performed By: #### L ACT #### [facility] [address] [address] [address] Jovanna Oneill MCH (RBC) [Entitic mass] 31.0 pg Normal 26.7-34.0 [facility] Comment on above: Performed By: #### L ACT #### [facility] [address] [address] [address] Jovanna Oneill MCHC (RBC) [Mass/Vol] 32.5 g/dL Normal 29.9-35.2 [facility] Comment on above: Performed By: #### L ACT #### [facility] [address] [place] [address] Dr. Jovanna Oneill MCV (RBC) [Entitic vol] 95.3 fL Normal 81.0-99.0 [facility] Comment on above: Performed By: #### L ACT #### [facility] [address] [place] [address] Dr. Jovanna Oneill MONO # 0.8 103/ul Normal 0.3-0.8 [facility] Comment on above: Performed By: #### L ACT #### [facility] [address] [place] [address] Dr. Jovanna Oneill Monocytes/100 WBC (Bld) 5.8 % Normal 1.7-12.0 [facility] Comment on above: Performed By: #### L ACT #### [facility] [address] [place] [address] Dr. Jovanna Oneill NEUT # 11.4 103/ul Critically high 1.4-6.5 [facility] Comment on above: Performed By: #### L ACT #### [facility] [address] [place] [address] Dr. Jovanna Oneill Neutrophils/100 WBC (Bld) 84.7 % Critically high 43.0-75.0 [facility] Comment on above: Performed By: #### L ACT #### [facility] [address] [place] [address] Dr. Jovanna Oneill Platelet mean volume (Bld) [Entitic vol] 10.1 fL Normal 9.5-13.5 [facility] Comment on above: Performed By: #### L ACT #### [facility] [address] [address] [address] Jovanna Oneill PLT 205 103/ul Normal 150-450 [facility] Comment on above: Performed By: #### L ACT #### [facility] [address] [address] [address] Jovanna Oneill RBC 4.07 106/ul Critically low 4.20-5.40 [facility] Comment on above: Performed By: #### L ACT #### [facility] [address] [address] [address] Jovanna Oneill WBC 13.4 103/ul Critically high 4.0-11.0 [facility] Comment on above: Performed By: #### L ACT #### [facility] [address] [address] [address] Jovanna Oneill DRUG SCREEN RAPID (URINE)on 04-20-2022 AMP Negative Normal NEGATIVE [facility] Comment on above: Performed By: #### U MICRO, ERUR, DRUGRPD ####[facility] [address] [address]Dr. Jovanna Oneill BAR Negative Normal NEGATIVE [facility] Comment on above: Performed By: #### U MICRO, ERUR, DRUGRPD ####[facility] [address] [address]Dr. Jovanna Oneill BUP Negative Normal NEGATIVE [facility] Comment on above: Performed By: #### U MICRO, ERUR, DRUGRPD ####[facility] [address] [address]Dr. Jovanna Oneill BZO Negative Normal NEGATIVE [facility] Comment on above: Performed By: #### U MICRO, ERUR, DRUGRPD ####[facility] [address] [address]Dr. Jovanna Oneill CARA Negative Normal NEGATIVE [facility] Comment on above: Performed By: #### U MICRO, ERUR, DRUGRPD ####[facility] [address] [address]Dr. Jovanna Oneill CUT-OFFS SEE BELOW Normal [facility] Comment on above: Result Comment: [...] Performed By: #### U MICRO, ERUR, DRUGRPD ####[facility] [address] [place], [place] [address]Dr. Jovanna Oneill DRUG CUT HEADER DRUG CLASS TEST SYSTEM CUT-OFF CONCENTRATIONS ARE FOLLOWS: Normal [facility] Comment on above: Performed By: #### U MICRO, ERUR, DRUGRPD ####[facility] [address] [place], [place] [address]Dr. Jovanna Oneill mAMP Negative Normal NEGATIVE [facility] Comment on above: Performed By: #### U MICRO, ERUR, DRUGRPD ####[facility] [address] [place], [place] [address]Dr. Jovanna Oneill MTD Negative Normal NEGATIVE [facility] Comment on above: Performed By: #### U MICRO, ERUR, DRUGRPD ####[facility] [address] [place], [place] [address]Dr. Jovanna Oneill OPI Positive Abnormal NEGATIVE [facility] Comment on above: Performed By: #### U MICRO, ERUR, DRUGRPD ####[facility] [address] [place], [place] [address]Dr. Jovanna Oneill OXY Negative Normal NEGATIVE [facility] Comment on above: Performed By: #### U MICRO, ERUR, DRUGRPD ####[facility] [address] [place], [place] [address]Dr. Jovanna Oneill PCP Negative Normal NEGATIVE [facility] Comment on above: Performed By: #### U MICRO, ERUR, DRUGRPD ####[facility] [address] [address]Dr. Rosaliareagan Oneill PPX Negative Normal NEGATIVE [facility] Comment on above: Performed By: #### U MICRO, ERUR, DRUGRPD ####[facility] [address] [address]Dr. Jovanna Oneill TCA Negative Normal NEGATIVE [facility] Comment on above: Performed By: #### U MICRO, ERUR, DRUGRPD ####[facility] [address] [address]Dr. Jovanna Oneill THC Positive Abnormal NEGATIVE [facility] Comment on above: Performed By: #### U MICRO, ERUR, DRUGRPD ####[facility] [address] [address]Dr. Jovanna Oneill ER URINE PROFILEon 2 Bilirubin Ql (U) Negative Normal NEGATIVE [facility] Comment on above: Performed By: #### U MICRO, ERUR, DRUGRPD ####[facility] [address] [place], [place] [address]Dr. Jovanna Oneill Clarity (U) CLEAR Normal CLEAR [facility] Comment on above: Performed By: #### U MICRO, ERUR, DRUGRPD ####[facility] [address] [place], [place] [address]Dr. Jovanna Oneill Color (U) LT. YELLOW Normal YELLOW [facility] Comment on above: Performed By: #### U MICRO, ERUR, DRUGRPD ####[facility] [address] [place], [place] [address]Dr. Jovanna Oneill ERUAHD A micrscopic examination will be performed if indicated. Normal [facility] Comment on above: Performed By: #### U MICRO, ERUR, DRUGRPD ####[facility] [address] [address]Dr. Jovanna Oneill Glucose Ql (U) >1000 Abnormal NEGATIVE [facility] Comment on above: Performed By: #### U MICRO, ERUR, DRUGRPD ####[facility] [address] [address]Dr. Jovanna Oneill Hemoglobin Ql (U) Negative Normal NEGATIVE [facility] Comment on above: Performed By: #### U MICRO, ERUR, DRUGRPD ####[facility] [address] [address]Dr. Jovanna Oneill Ketones Ql (U) Negative Normal NEGATIVE [facility] Comment on above: Performed By: #### U MICRO, ERUR, DRUGRPD ####[facility] [address] [place], [place] [address]Dr. Jovanna Oneill LEUKOCYTES Negative Normal NEGATIVE [facility] Comment on above: Performed By: #### U MICRO, ERUR, DRUGRPD ####[facility] [address] [place], [place] [address]Dr. Rosaliareagan Oneill Nitrite Ql (U) Negative Normal NEGATIVE [facility] Comment on above: Performed By: #### U MICRO, ERUR, DRUGRPD ####[facility] [address] [place], [place] [address]Dr. Jovanna Oneill pH (U) 6.5 [pH] Normal 5-9 [facility] Comment on above: Performed By: #### U MICRO, ERUR, DRUGRPD ####[facility] [address] [place], [place] [address]Dr. Jovanna Oneill Protein (U) [Mass/Vol] 30 mg/dL Abnormal NEGATIVE/ TRACE [facility] Comment on above: Performed By: #### U MICRO, ERUR, DRUGRPD ####[facility] [address] [place], [place] [address]Dr. Rosaliareagan Oneill SPEC GRAVITY 1.015 Normal 1.005-<=1.025 [facility] Comment on above: Performed By: #### U MICRO, ERUR, DRUGRPD ####[facility] [address] [address]Dr. Jovanna Oneill UR MICRO IND INDICATED Normal [facility] Comment on above: Performed By: #### U MICRO, ERUR, DRUGRPD ####[facility] [address] [address]DrJhony Oneill Urobilinogen Qn (U) 1.0 {Isabella'U}/dL Normal 0.2 - 1. 0 [facility] Comment on above: Performed By: #### U MICRO, ERUR, DRUGRPD ####[facility] [address] [id number]. Jovanna Oneill LACTATE/LACTIC ACIDon 2021 Lactate [Moles/Vol] 1.7 mmol/L Normal 0.4-1.9 [facility] Comment on above: Performed By: #### L ACT #### [facility] Laboratory [address] [place] [address] Dr. Jovanna Oneill PROF 14(COMP METB)on 022 Albumin [Mass/Vol] 3.4 g/dL Normal 3.4-5.0 [facility] Comment on above: Performed By: #### V ITB12 #### [facility] [address] [place] [address] Dr. Jovanna Oneill Albumin/Globulin [Mass ratio] 1.1 {ratio} Normal [facility] Comment on above: Performed By: #### V ITB12 #### [facility] [address] [place] [address] Dr. Jovanna Oneill ALP [Catalytic activity/Vol] 99 U/L Normal 46-116 [facility] Comment on above: Performed By: #### V ITB12 #### [facility] [address] [place] [address] Dr. Jovanna Oneill ALT [Catalytic activity/Vol] 32 U/L Normal 14-59 [facility] Comment on above: Performed By: #### V ITB12 #### [facility] [address] [place] [address] Dr. Jovanna Oneill Anion gap [Moles/Vol] 10.0 mmol/L Normal [facility] Comment on above: Performed By: #### V ITB12 #### [facility] [address] [place] [address] Dr. Jovanna Oneill AST [Catalytic activity/Vol] 38 U/L Critically high 15-37 [facility] Comment on above: Performed By: #### V ITB12 #### [facility] [address] [place] [address] Dr. Joavnna Oneill Bilirubin [Mass/Vol] 0.8 mg/dL Normal 0.2-1.0 [facility] Comment on above: Performed By: #### V ITB12 #### [facility] [address] [place] [address] Dr. Jovanna Oneill Calcium [Mass/Vol] 8.1 mg/dL Critically low 8.5-10.1 [facility] Comment on above: Performed By: #### V ITB12 #### [facility] [address] [place] [address] Dr. Jovanna Oneill Chloride [Moles/Vol] 102 mmol/L Normal 98-107 [facility] Comment on above: Performed By: #### V ITB12 #### [facility] [address] [place] [address] Dr. Jovanna Oneill CO2 [Moles/Vol] 31.1 mmol/L Normal 21.0-32.0 [facility] Comment on above: Performed By: #### V ITB12 #### [facility] [address] [place] [address] Dr. Jovanna Oneill Creatinine [Mass/Vol] 0.78 mg/dL Normal 0.55-1.02 [facility] Comment on above: Performed By: #### V ITB12 #### [facility] [address] [place] [address] Dr. Jovanna Oneill EGFR-AF FINNISH >60 Normal >=60 [facility] Comment on above: Performed By: #### V ITB12 #### [facility] [address] [place] [address] Dr. Jovanna Oneill EGFR-NON AF FINNISH >60 Normal >=60 [facility] Comment on above: Performed By: #### V ITB12 #### [facility] [address] [place] [address] Dr. Jovanna Oneill Globulin (S) [Mass/Vol] 3.2 g/dL Normal [facility] Comment on above: Performed By: #### V ITB12 #### [facility] [address] [address] [address] Jovanna Oneill Glucose [Mass/Vol] 251 mg/dL Critically high 74-106 [facility] Comment on above: Performed By: #### V ITB12 #### [facility] [address] [address] [address] Jovanna Oneill Potassium [Moles/Vol] 3.1 mmol/L Critically low 3.5-5.1 [facility] Comment on above: Performed By: #### V ITB12 #### [facility] [address] [place] [address] Dr. Jovanna Oneill Protein [Mass/Vol] 6.6 g/dL Normal 6.4-8.2 The [facility] Comment on above: Performed By: #### V ITB12 #### [facility] [address] [place] [address] Dr. Jovanna Oneill Sodium [Moles/Vol] 140 mmol/L Normal 136-145 [facility] Comment on above: Performed By: #### V ITB12 #### [facility] [address] [place] [address] Dr. Jovanna Oneill Urea nitrogen [Mass/Vol] 8.0 mg/dL Normal 7.0-18.0 [facility] Comment on above: Performed By: #### V ITB12 #### [facility] [address] [place] [address] Dr. Jovanna Oneill Urea nitrogen/Creatinine [Mass ratio] 10.3 mg/mg Normal [facility] Comment on above: Performed By: #### V ITB12 #### [facility] [address] [place] [address] Dr. Jovanna Oneill TROPONIN, HIGH SENSITIVITYon 04-20-2022 HSTROP 13.8 pg/mL Normal 4.0-51.3 [facility] Comment on above: Result Comment: CUT- OFF POINTS HAVE BEEN ESTABLISHED BASED ON THE FOURTH UNIVERSAL DEFINITIONS OF MYOCARDIAL INFARCTION. THE UPPER REFERENCE LIMIT (URL) OF TROPONIN, DEFINED THE 99TH PERCENTILE OF cTnI DISTRIBUTION IN A REFERENCE POPULATION, HAS BEEN CONFIRMED THE DECISION THRESHOLD FOR ME DIAGNOSIS. Performed By: #### V ITB12 #### [facility] [id number] Jovanna Oneill URINE MICROSCOPIC ONLYon BACTERIA TRACE Abnormal NONE SEEN [facility] Comment on above: Performed By: #### U MICRO, ERUR, DRUGRPD ####[facility] [address] [place] [address]Dr. Jovanna Oneill Bacteria identified Cx Nom (U) NOT INDICATED Normal [facility] Comment on above: Performed By: #### U MICRO, ERUR, DRUGRPD ####[facility] [address] [place] [address]Dr. Jovanna Oneill CAST SEEN Abnormal NONE SEEN [facility] Comment on above: Performed By: #### U MICRO, ERUR, DRUGRPD ####[facility] [address] [place] [address]Dr. Jovanna Oneill Crystals LM Nom (Urine sed) NONE SEEN Normal NONE SEEN [facility] Comment on above: Performed By: #### U MICRO, ERUR, DRUGRPD ####[facility] [address] [place] [address]Dr. Jovanna Oneill Epithelial cells LM Ql (Urine sed) FEW Abnormal NONE SEEN /RARE [facility] Comment on above: Performed By: #### U MICRO, ERUR, DRUGRPD ####[facility] [address] [place] [address]Dr. Jovanna Oneill HYALINE CAST FEW Normal [facility] Comment on above: Performed By: #### U MICRO, ERUR, DRUGRPD ####[facility] [address] [place] [address]Dr. Jovanna Oneill MUCOUS NONE SEEN Normal NONE SEEN [facility] Comment on above: Performed By: #### U MICRO, ERUR, DRUGRPD ####[facility] [address] [place] [address]Dr. Jovanna Oneill RBC 0-2 Normal 0-2 [facility] Comment on above: Performed By: #### U MICRO, ERUR, DRUGRPD ####[facility] [address] [place], [place] [address]Ab. Jovanna Oneill WBC 0-2 Abnormal NONE SEEN [facility] Comment on above: Performed By: #### U MICRO, ERUR, DRUGRPD ####[facility] [address] [place], [place] [address]Ir. Jovanna Oneill XR CHEST 1 Von 04-20-2022 [...] Ayaka LEON Date: 2022-04-20 02:33 Normal [facility] XR ANKLE RT MIN 3 [...] Type Care Provider Facility Start: 05-26-2024 ambulatory [facility] Start: 05-26-2024 Encounter for other preprocedural examination [facility] Start: 03-23-2023 End: 03-23-2023 ambulatory ABDULKADIR Booker [...] SHAMMO Facility:[facility] Start: 11-01-2022 ambulatory TATUM SHAMMO Facility:[facility] Start: 10-08-2022 End: 10-08-2022 ambulatory TATUM SHAMMO Facility:[facility] Start: 10-06-2022 ambulatory Woo Randi EZEKIEL Facility :[facility] Start: 10-03-2022 End: 10-04-2022 ambulatory TATUM [...] ALIA Facility:[facility] Start: 06-22-2022 End: 06-22-2022 ambulatory [facility] Facility:[facility] Start: 05-02-2022 End: 05-02-2022 ambulatory [facility] Facility:[facility] Start: 04-20-2022 End: 04-20-2022 ambulatory CAROL ANN ALIA Facility:[facility] Start: 03-26-2022 End: 03-26-2022 ambulatory DARRIN PEREZ . Facility:[facility] Payers Date Payer Category Payer Unknown [id number] 2.16.8 [id number] 1973 Unknown [id number] 2.16.8 [id number] 1973 Unknown [id number] 2.16.84 0.1.031453.3.579.2.593 1973 Unknown [id number] 2.16.84 0.1.403162.3.579.2.593 1973 Unknown [id number] 2.16.84 0.1.889117.3.579.2.593 1973 Unknown [id number] 2.16.84 0.1.644419.3.579.2.593 1973 Unknown [id number] 2.16.84 0.1.951692.3.579.2.593 1973 Unknown [id number] 2.16.84 0.1.359846.3.579.2.593 1973 Unknown [id number] 2.16.84 0.1.003569.3.579.2.593 1973 Unknown [id number] 2.16.84 0.1.127686.3.579.2.593 1973 Unknown [id number] 2.16.84 0.1.422921.3.579.2.593 1973 Unknown [id number] 2.16.84 0.1.454745.3.579.2.593 1973 Unknown [id number] 2.16.84 0.1.530796.3.579.2.593 1973 Unknown [id number] 2.16.84 0.1.578108.3.579.2.593 1973 Unknown [id number] 2.16.84 0.1.523771.3.579.2.593 1973 Unknown [id number] 2.16.84 0.1.455533.3.579.2.593 1973 Unknown [id number] 2.16.84 0.1.981158.3.579.2.593 1973 Unknown [id number] 2.16.84 0.1.403960.3.579.2.593 1973 Unknown [id number] 2.16.84 0.1.040809.3.579.2.593 1973 Unknown [id number] 2.16.84 0.1.335530.3.579.2.593 1973 Unknown [id number] 2.16.84 0.1.217847.3.579.2.593 1973 Unknown [id number] 2.16.84 0.1.951337.3.579.2.593 1973 Unknown [id number] 2.16.84 0.1.859249.3.579.2.593 1973 Unknown [id number] 2.16.84 0.1.618801.3.579.2.593 1973 Unknown [id number] 2.16.8 40.1.011958.3.579.2.174 1959 Self-pay [id number] 1959 Unknown [id number] 1961 Unknown [id number] Clinical Note 03-05-2023 Note Date & Type [...] by: FRANCES AGUSTIN Date: 2023-03-05 11:36 [facility] Clinical Note 08-30-2022 Note Date & Type [...] by: FRANCES AGUSTIN Date: 2022-08-30 10:20 [facility] Clinical Note 08-30-2022 Note Date & Type [...] by: FRANCES AGUSTIN Date: 2022-08-30 10:20 [facility] Clinical Note 06-22-2022 Note Date [...] by: RJ YANEZ Date: 2022-06-22 07:13 [facility] Note 06-22-2022 Note Date [...] by: RJ YANEZ Date: 2022-06-22 07:13 [facility] Summary Purpose Family History No Family History Records FoundNo Family History Records FoundNo Family History Records Found Advance Directives No Advanced Directives Records FoundNo Advanced Directives Records FoundNo Advanced Directives Records Found Additional Source Comments INFORMATION SOURCE (unrecogn ized section and content) DATE CREATED AUTHOR [facility]20[facility] DATE CREATED AUTHOR AUTHOR'S ORGANIZ ATION 03/24/2023 [facility] DATE CREATED AUTHOR AUTHOR'S ORGANIZ ATION 05/28/2024 Peytonemely Stra[place]jennifer ruiz FOR RECORDS PERTAINING TO PATIENTS WHO [...] BE BASED ON THE PRIMARY CLINICAL RECORDS. [facility] [employer] provides no warranty or guarantee of the accuracy or completeness of information in this document.
[2024-06-08 12:06] VITALS: BP 155/94; PULSE 79; TEMP 36.4; O2SAT 98; BMI 20.2
--- NOTE | 2024-06-08 12:17 | ED.GENADUL1 ---
HPI HPI - General Adult General Chief complaint: Extremity Injury, Upper Stated complaint: POST OP PAIN Time Seen by Provider: 06/08/24 12:02 Source: patient Mode of arrival: walk-in History of Present Illness HPI narrative: 48-year-old female presents to the emergency department for pain in her right index finger. She had injured it almost 3 weeks ago and had surgery a week ago. She has a pin in it. She is taking Percocet and has not run out. She states the pain got a bit worse today and she has an appointment with her orthopedist tomorrow. The pain is severe and continuous. Related Data Home Medications ?Medication ?Instructions ?Recorded ?Confirmed levothyroxine 25 mcg capsule 25 mcg PO DAILY 05/28/24 06/08/24 oxycodone-acetaminophen 5 mg-325 1 tab PO Q6H PRN pain 05/28/24 06/08/24 mg tablet sulfamethoxazole 800 1 tab PO BID 05/28/24 06/08/24 mg-trimethoprim 160 mg tablet (Bactrim DS) Previous Rx's ?Medication ?Instructions ?Recorded budesonide-formoterol HFA 80 2 inh inhalation BID #10.2 grams 04/25/24 mcg-4.5 mcg/actuation aerosol inhaler losartan 100 1 tab PO DAILY 30 days #30 tabs 04/25/24 mg-hydrochlorothiazide 25 mg tablet pantoprazole 40 mg tablet,delayed 40 mg PO BID 30 days #60 tabs 04/25/24 release Allergies Allergy/AdvReac Type Severity Reaction Status Date / Time No Known Drug Allergies Allergy Verified 05/28/24 12:53 Opioid HPI Opioid Management Most Recent Opioid Data: Last Pain Scale 6 06/02/24 08:30 Last Pain Assessment 06/02/24 11:25 Review of Systems ROS Narrative A ten point review of systems is negative except as noted above. [facility] Medical History (Updated 06/08/24 @ 12:16 by Stevan Casillas MD) Full dentures ?Z97.2 - Presence of dental prosthetic device (complete) (partial) (ICD-10) ?K08.109 - Complete loss of teeth, unspecified cause, unspecified class (ICD-10) Neck pain ?M54.2 - Cervicalgia (ICD-10) Depression ?F32.A - Depression, unspecified (ICD-10) Anxiety ?F41.9 - Anxiety disorder, unspecified (ICD-10) Asthma ?J45.909 - Unspecified asthma, uncomplicated (ICD-10) Chronic obstructive pulmonary disease ?J44.9 - Chronic obstructive pulmonary disease, unspecified (ICD-10) Migraine ?G43.909 - Migraine, unspecified, not intractable, without status migrainosus (ICD-10) Kidney stones ?N20.0 - Calculus of kidney (ICD-10) GERD (gastroesophageal reflux disease) ?K21.9 - Gastro-esophageal reflux disease without esophagitis (ICD-10) Hypothyroidism ?E03.9 - Hypothyroidism, unspecified (ICD-10) Hiatal hernia ?K44.9 - Diaphragmatic hernia without obstruction or gangrene (ICD-10) Colon polyp ?K63.5 - Polyp of colon (ICD-10) Ovarian cyst ?N83.209 - Unspecified ovarian cyst, unspecified side (ICD-10) Endometriosis ?N80.9 - Endometriosis, unspecified (ICD-10) Hypertension ?I10 - Essential (primary) hypertension (ICD-10) Back pain ?M54.9 - Dorsalgia, unspecified (ICD-10) Chronic neck pain ?M54.2 - Cervicalgia (ICD-10) ?G89.29 - Other chronic pain (ICD-10) Open fracture of right hand ?S62.91XB - Unspecified fracture of right wrist and hand, initial encounter for open fracture (ICD-10) Anxiety and depression ?F41.9 - Anxiety disorder, unspecified (ICD-10) ?F32.A - Depression, unspecified (ICD-10) HTN (hypertension) ?I10 - Essential (primary) hypertension (ICD-10) Bulging of cervical intervertebral disc ?M50.30 - Other cervical disc degeneration, unspecified cervical region (ICD-10) Osteoporosis ?M81.0 - Age-related osteoporosis without current pathological fracture (ICD-10) Surgical History (Updated 05/28/24 @ 13:04 by Monique Benson NP) History of tonsillectomy ?Z90.89 - Acquired absence of other organs (ICD-10) History of colonoscopy ?Z98.890 - Other specified postprocedural states (ICD-10) History of esophagogastroduodenoscopy (EGD) ?Z98.890 - Other specified postprocedural states (ICD-10) History of laparoscopy ?Z98.890 - Other specified postprocedural states (ICD-10) History of appendectomy ?Z90.49 - Acquired absence of other specified parts of digestive tract (ICD-10) History of hysterectomy ?Z90.710 - Acquired absence of both cervix and uterus (ICD-10) History of cholecystectomy ?Z90.49 - Acquired absence of other specified parts of digestive tract (ICD-10) Family History (Updated 05/28/24 @ 13:04 by Monique Benson NP) Other Brain tumor Cancer Family history of aneurysm Family history of diabetes mellitus Family history of hypertension Social History (Updated 05/28/24 @ 12:57 by Monique Benson NP) Within the past year, how often did you have a drink containing alcohol: never Score interpretation: A score less than 3 is consistent with normal alcohol consumption. Smoking status: Current every day smoker What tobacco products do you use: cigarettes Cigarettes per day: 30 Years smoked: 36 Smoking pack-years: 54.00 Non-prescribed substance use: cannabis (any form) Highest level of school completed/degree received: 11th grade Exam Narrative Exam Narrative: Nurses note and vital signs reviewed and patient is not hypoxic. General: The patient appears uncomfortable Skin: Warm, dry, no pallor noted. There is no rash noted. Head: Normocephalic, atraumatic Eye: Normal conjunctiva, no drainage Ears, Nose, Mouth, and Throat: oral mucosa is moist. Nares patent. Cardiovascular: Regular Rate and Rhythm Respiratory: Patient is in no distress, no accessory muscle use Back: non-tender GI: Nontender Musculoskeletal: There is a dressing on her right index finger. It is removed. Pin in place. There is no dehiscence. Neurological: Awake and alert Psychiatric: Cooperative Constitutional Vital Signs, click to edit/add: Last Vital Signs Temp 97.6 F 06/08/24 12:06 Pulse 79 06/08/24 12:06 Resp 15 06/08/24 12:06 BP 155/94 H 06/08/24 12:06 Pulse Ox 98 06/08/24 12:06 O2 Del Method Room Air 06/08/24 12:06 Course Vital Signs Vital signs: Vital Signs Temperature 97.6 F 06/08/24 12:06 Pulse Rate 79 06/08/24 12:06 Respiratory Rate 15 06/08/24 12:06 Blood Pressure 155/94 H 06/08/24 12:06 Pulse Oximetry 98 06/08/24 12:06 Oxygen Delivery Method Room Air 06/08/24 12:06 Temperature 97.6 F 06/08/24 12:06 Pulse Rate 79 06/08/24 12:06 Respiratory Rate 15 06/08/24 12:06 Blood Pressure 155/94 H 06/08/24 12:06 Pulse Oximetry 98 06/08/24 12:06 Oxygen Delivery Method Room Air 06/08/24 12:06 Medical Decision Making MDM Narrative Medical decision making narrative: She was given IM morphine and will continue the Percocet at home. The finger was redressed and she will see her orthopedist at her appointment tomorrow. She is already on an antibiotic, Bactrim. Differential Diagnosis Differential Diagnosis: Postoperative pain, cellulitis Discharge Plan Discharge Stand Alone Forms: Portal Instructions Chief Complaint: Extremity Injury, Upper Clinical Impression: Post-operative pain Patient Disposition: Home, Self-Care Time of Disposition Decision: 12:16 Condition: Good Mode of Transportation: Private Vehicle Prescriptions / Home Meds: No Action budesonide-formoterol 80-4.5 mcg/actuation HFA aerosol inhaler 2 inh inhalation BID Qty: 10.2 0RF losartan-hydrochlorothiazide 100-25 mg tablet 1 tab PO DAILY 30 Days Qty: 30 0RF pantoprazole 40 mg tablet,delayed release (DR/EC) 40 mg PO BID 30 Days Qty: 60 0RF oxycodone-acetaminophen 5-325 mg tablet 1 tab PO Q6H PRN (Reason: pain) sulfamethoxazole-trimethoprim [Bactrim DS] 800-160 mg tablet 1 tab PO BID levothyroxine 25 mcg capsule 25 mcg PO DAILY Print Language: Cook Islander Instructions: Pain Management After Surgery (DC) Additional Instructions: See Dr. Rivera tomorrow Referrals: Physician,Non-Staff, MD [Primary Care Provider] - 1 week
[2024-06-08] MEDS: MORPHINE SULFATE 4 MG/ML VIAL 10 MG IM (12:24)
[2024-06-08 12:46] VITALS: PULSE 78; O2SAT 99
== END 2024-06-08 12:48 | disposition home or self-care (01) ==
PROVIDERS: Emergency Provider Emergency Medicine
DX: G89.18 Other acute postprocedural pain (principal); F17.210 Nicotine dependence, cigarettes, uncomplicated
CPT/HCPCS: 96372; 99284; J2270

== ENCOUNTER 2024-06-23 20:56 | Emergency (ER) | payer OTHER, SELFPAY ==
--- OUTSIDE RECORDS SUMMARY | 2024-06-23 21:13 | XMS_ITS | CCD ---
Author Organization [facility] Care Team Providers Care Center Consultant Name Role Phone Woo FALCON Attending Unavailable [...] Attending Unavailable ANA ., DARRIN Admitting Unavailable [facility] Primary Care Unavailable KOBE HICKEY Consulting Unavailable MARKER ., DR MAX Attending Unavailable MARKER ., DR MAX Admitting Unavailable MARKER ., DR MAX Consulting Unavailable [facility] Primary Care Unavailable LEON, JIMMY Consulting Unavailable SHAMMO, TATUM Primary Care Unavailable SAI, VAUGHN Admitting Unavailable SAI, VAUGHN Attending Unavailable SAI, VAUGHN Consulting Unavailable WOO PAIGE Consulting Unavailable SHAMMO, TATUM Consulting Unavailable [facility] Primary Care Unavailable SAI, VAUGHN Admitting Unavailable SAI, VAUGHN Attending Unavailable BEAU, DR RJ Foster Consulting Unavailable HAY ., DR BIRD Consulting Unavailable SAI, VAUGHN Consulting Unavailable ALIA, CAROL ANN Admitting Unavailable ALIA, CAROL ANN Attending Unavailable [facility] Primary Care Unavailable SHAMMO, TATUM Admitting Unavailable SHAMMO, TATUM Attending Unavailable SHAMMO, TATUM Primary Care Unavailable SHAMMO, TATUM Consulting Unavailable [facility] Primary Care Unavailable LUIS EDUARDO, DR LAYA Bryan Admitting Unavailable LUIS EDUARDO, DR LAYA Bryan Attending Unavailable LUIS EDUARDO, DR LAYA Bryan Consulting Unavailable EDWARD, JIMMY Consulting Unavailable SANTO LOPEZ Referring Unavailable SANTO LOPEZ Referring Unavailable SANTO LOPEZ Admitting Unavailable SANTO LOPEZ Attending Unavailable Allergies Allergy Classification Reported Allergen(s) Allergy Type Date of Onset Reaction(s) Facility (1 source) No Known Medication Allergies; Translations: [No Known Medication Allergies] Propensity to adverse reactions (disorder) [facility] Repository Problems Active Problems Problem Classification [...] Translations: [ESSENTIAL PRIMARY HYPERTENSION] Onset: 02-26-2023 Chronic Fracture of upper limb (3 sources) Displaced fracture of distal phalanx of right index finger, sequela; Translations: [Displaced fracture of distal phalanx of right index finger, initial encounter for open fracture] Onset: 06-09-2024 Episodic Menopausal disorders (1 source) Menopausal and female [...] 01-15-2023 Chronic Other aftercare (1 source) 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 IMPRESSION: FINDINGS/IMPRESSION: 1. Percutaneous pin transfixes the distal phalanx fracture index finger in near-anatomic alignment. 2. No dislocation. 3. 3 mm distraction of fracture fragments, unchanged. Interpreted by: Paolo Robertson Jr., MD Signed by: Paolo Robertson Jr., MD 06/09/24 Final result Normal [facility] XR NECK SOFT TISSUEon 2022 XR NECK [...] ANGY SMALLS Date: 2023-02-23 13:14 Normal [facility] FREE T4on 02-20-2023 Free T4 [Mass/Vol] 0.65 ng/dL Critically low 0.76-1.46 [facility] Comment on above: Performed By: #### L ACT #### [facility] Laboratory [address] [address] [address] Jovanna Oneill TSH W/ REFLEX TO FT4on 02-20 TSH 5.032 uIU/mL Critically high 0.358-3.740 [facility] Comment on above: Performed By: #### L ACT #### [facility] Laboratory [address] [address] [address] Jovanna Oneill RESPIRATORY PANEL PLUSon Adenovirus Not detected Normal NOT DETECTED [facility] Comment on above: Performed By: #### R SPLUS ####[facility] I[address] [place], [place] [address]Dr. Jovanna Oneill B. Parapertusis Not detected Normal NOT DETECTED The [facility] Comment on above: Performed By: #### R SPLUS ####[facility] [address] [place], [place] [address]Dr. Jovanna Oneill B. Pertussis Not detected Normal NOT DETECTED The [facility] Comment on above: Performed By: #### R SPLUS ####[facility] [address] [place], [place] [address]Dr. Jovanna Oneill Chlamydia Pneumoniae Not detected Normal NOT DETECTED [facility] Comment on above: Performed By: #### R SPLUS ####[facility] [address] [place], [place] [address]Dr. Jovanna Oneill Coronavirus 229E Not detected Normal NOT DETECTED [facility] Comment on above: Performed By: #### R SPLUS ####[facility] Sk[address] [place], [place] [address]Dr. Jovanna Oneill Coronavirus HKU1 Not detected Normal NOT DETECTED [facility] Comment on above: Performed By: #### R SPLUS ####[facility] [address] [place], [place] [address]Dr. Jovanna Oneill Coronavirus NL63 Not detected Normal NOT DETECTED [facility] Comment on above: Performed By: #### R SPLUS ####[facility] N[address] [place], [place] [address]Dr. Jovanna Oneill Coronavirus OC43 Not detected Normal NOT DETECTED [facility] Comment on above: Performed By: #### R SPLUS ####[facility] [address] [place], [place] [address]Dr. Jovanna Oneill Influenza A H1 Not detected Normal NOT DETECTED The [facility] Comment on above: Performed By: #### R SPLUS ####[facility] [address] [place], [place] [address]Dr. Jovanna Oneill Influenza A H1 2009 Not detected Normal NOT DETECTED T [facility] Comment on above: Performed By: #### R SPLUS ####[facility] [address] [address]Dr. Jovanna Oneill Influenza A H3 Not detected Normal NOT DETECTED [facility] Comment on above: Performed By: #### R SPLUS ####[facility] [address] [address]Dr. Jovanna Oneill Influenza B Not detected Normal NOT DETECTED The [facility] Comment on above: Performed By: #### R SPLUS ####[facility] T[address] [place], [place] [address]Dr. Jovanna Oneill Metapneumovirus Not detected Normal NOT DETECTED [facility] Comment on above: Performed By: #### R SPLUS ####[facility] [address] [place], [place] [address]Dr. Jovanna Oneill Mycoplas. Pneumoniae Not detected Normal NOT DETECTED [facility] Comment on above: Performed By: #### R SPLUS ####[facility] Oz[address] [place], [place] [address]Dr. Jovanna Oneill Parainfluenza 1 Not detected Normal NOT DETECTED [facility] Comment on above: Performed By: #### R SPLUS ####[facility] M[address] [place], [place] [address]Dr. Jovanna Oneill Parainfluenza 2 Not detected Normal NOT DETECTED [facility] Comment on above: Performed By: #### R SPLUS ####[facility] C[address]ks[address] [place], [place] [address]Dr. Jovanna Oneill Parainfluenza 3 Not detected Normal NOT DETECTED [facility] Comment on above: Performed By: #### R SPLUS ####[facility] Amf[address] [place], [place] [address]Dr. Jovanna Oneill Parainfluenza 4 Not detected Normal NOT DETECTED [facility] Comment on above: Performed By: #### R SPLUS ####[facility] Sl[address] [place], [place] [address]Dr. Jovanna Oneill Rhino/Enterovirus Not detected Normal NOT DETECTED [facility] Comment on above: Performed By: #### R SPLUS ####[facility] [address] [address]Dr. Jovanna Oneill RP2 Header 1 RESPIRATORY PANEL: VIRUSES Normal [facility] Comment on above: Performed By: #### R SPLUS ####[facility] [address] [id number]. Jovanna Oneill RP2 Header 2 RESPIRATORY PANEL: BACTERIA Normal [facility] Comment on above: Performed By: #### R SPLUS ####[facility] [address] [id number]. Jovanna Oneill RSV Not detected Normal NOT DETECTED [facility] Comment on above: Performed By: #### R SPLUS ####[facility] [address] [address]Dr. Jovanna Oneill SARS-CoV-2 (COVID-19) RNA DUC+probe Ql (Unsp spec) Not detected Normal NOT DETECTED [facility] Comment on above: Performed By: #### R SPLUS ####[facility] [address] [place], [place] [address]Dr. Jovanna Oneill MG MAMM SCREEN 3D CHELLY CADon 01-12-2023 MG MAMM SCREEN 3D CHELLY CAD Patient: SULY THORNE Exam Date: 01/12/2023 : 1975 Gender:F Ordering : TATUM ONOFRE Admission #: [id number] Family : Order #: [id number] CLICK HERE TO VIEW EXAM RADIOLOGY REPORT [...] cervical cancer at age 40. LOCATION: [facility] BREAST COMPOSITION: Almost entirely fatty. FINDINGS: DIAGNOSTIC [...] Yanez MD on 01/12/2023 at 12:42 Normal [facility] XR DEXA BONE DENSITYon 01-12 XR [...] by: RJ YANEZ Date: 2023-01-12 17:10 Normal [facility] GABAPENTIN URINEon 3 Gabapentin, Urine Negative Normal [facility] Comment on above: Performed By: #### G ABAP ####[facility] [address] [address]Dr. Jovanna Oneill DRUG SCREEN RAPID (URINE)on 11-14-2022 AMP Negative Normal NEGATIVE [facility] Comment on above: Performed By: #### V ITB12 #### [facility] Laboratory [address] [address] [address] Jovanna Oneill BAR Negative Normal NEGATIVE [facility] Comment on above: Performed By: #### V ITB12 #### [facility] Laboratory [address] [address] [address] Jovanna Oneill BUP Negative Normal NEGATIVE [facility] Comment on above: Performed By: #### V ITB12 #### [facility] Laboratory [address] [address] [address] Jovanna Oneill BZO Negative Normal NEGATIVE [facility] Comment on above: Performed By: #### V ITB12 #### [facility] Laboratory [address] [place] [address] Dr. Jovanna Oneill CARA Negative Normal NEGATIVE [facility] Comment on above: Performed By: #### V ITB12 #### [facility] Laboratory [address] [place] [address] Dr. Jovanna Oneill CUT-OFFS SEE BELOW Normal [facility] Comment on above: Result Comment: AMP [...] ng/mL Performed By: #### V ITB12 #### [facility] Laboratory [address] [place] [address] Dr. Jovanna Oneill DRUG CUT HEADER DRUG CLASS TEST SYSTEM CUT-OFF CONCENTRATIONS ARE FOLLOWS: Normal [facility] Comment on above: Performed By: #### V ITB12 #### [facility] Laboratory [address] [place] [address] Dr. Jovanna Oneill mAMP Negative Normal NEGATIVE [facility] Comment on above: Performed By: #### V ITB12 #### [facility] Laboratory [address] [place] [address] Dr. Jovanna Oneill MTD Negative Normal NEGATIVE [facility] Comment on above: Performed By: #### V ITB12 #### [facility] [address] [place] [address] Dr. Jovanna Oneill OPI Positive Abnormal NEGATIVE [facility] Comment on above: Performed By: #### V ITB12 #### [facility] [address] [place] [address] Dr. Jovanna Oneill OXY Negative Normal NEGATIVE [facility] Comment on above: Performed By: #### V ITB12 #### [facility] [address] [place] [address] Dr. Jovanna Oneill PCP Negative Normal NEGATIVE [facility] Comment on above: Performed By: #### V ITB12 #### [facility] [address] [place] [address] Dr. Jovanna Oneill PPX Negative Normal NEGATIVE [facility] Comment on above: Performed By: #### V ITB12 #### [facility] [address] [place] [address] Dr. Jovanna Oneill TCA Negative Normal NEGATIVE [facility] Comment on above: Performed By: #### V ITB12 #### [facility] [address] [place] [address] Dr. Jovanna Oneill THC Positive Abnormal NEGATIVE [facility] Comment on above: Performed By: #### V ITB12 #### [facility] [address] [place] [address] Dr. Jovanna Oneill CBC AUTO DIFFon 10-08-2022 BASO # 0.0 103/ul Normal 0.0-0.1 [facility] Comment on above: Performed By: #### C BC #### [facility] [address] [place] [address] Dr. Jovanna Oneill Basophils/100 WBC (Bld) 0.4 % Normal 0.2-2.0 [facility] Comment on above: Performed By: #### C BC #### [facility] [address] [place] [address] Dr. Jovanna Oneill EO # 0.1 103/ul Normal 0.0-0.7 [facility] Comment on above: Performed By: #### C BC #### [facility] [address] [place] [address] Dr. Jovanna Oneill Eosinophils/100 WBC (Bld) 1.3 % Normal 0.9-7.0 [facility] Comment on above: Performed By: #### C BC #### [facility] [address] [place] [address] Dr. Jovanna Oneill Erythrocyte distribution width (RBC) [Ratio] 12.0 % Normal 11.0-15.0 [facility] Comment on above: Performed By: #### C BC #### [facility] [address] [place] [address] Dr. Jovanna Oneill Hematocrit (Bld) [Volume fraction] 37.8 % Normal 36.0-48.0 [facility] Comment on above: Performed By: #### C BC #### [facility] [address] [place] [address] Dr. Jovanna Oneill Hemoglobin (Bld) [Mass/Vol] 12.8 g/dL Normal 12.0-16.0 [facility] Comment on above: Performed By: #### C BC #### [facility] [address] [place] [address] Dr. Jovanna Oneill IG # 0.02 10e3/ul Normal 0.00-0.03 [facility] Comment on above: Performed By: #### C BC #### [facility] [address] [place] [address] Dr. Jovanna Oneill IG % 0.2 % Normal 0.0-0.5 [facility] Comment on above: Performed By: #### C BC #### [facility] Laboratory [address] [place] [address] Dr. Jovanna Oneill LYMPH # 3.5 103/ul Normal 1.2-3.8 [facility] Comment on above: Performed By: #### C BC #### [facility] [address] [place] [address] Dr. Jovanna Oneill Lymphocytes/100 WBC (Bld) 37.9 % Normal 20.5-60.0 [facility] Comment on above: Performed By: #### C BC #### [facility] Laboratory [address] [place] [address] Dr. Jovanna Oneill MANUAL DIFF REQ NO Normal [facility] Comment on above: Performed By: #### C BC #### [facility] [address] [place] [address] Dr. Jovanna Oneill MCH (RBC) [Entitic mass] 31.7 pg Normal 26.7-34.0 [facility] Comment on above: Performed By: #### C BC #### [facility] [address] [address] [address] Jovanna Oneill MCHC (RBC) [Mass/Vol] 33.9 g/dL Normal 29.9-35.2 [facility] Comment on above: Performed By: #### C BC #### [facility] [address] [place] [address] Dr. Jovanna Oneill MCV (RBC) [Entitic vol] 93.6 fL Normal 81.0-99.0 [facility] Comment on above: Performed By: #### C BC #### [facility] [address] [place] [address] Dr. Jovanna Oneill MONO # 0.5 103/ul Normal 0.3-0.8 [facility] Comment on above: Performed By: #### C BC #### [facility] [address] [place] [address] Dr. Jovanna Oneill Monocytes/100 WBC (Bld) 4.8 % Normal 1.7-12.0 [facility] Comment on above: Performed By: #### C BC #### [facility] [address] [place] [address] Dr. Jovanna Oneill NEUT # 5.1 103/ul Normal 1.4-6.5 [facility] Comment on above: Performed By: #### C BC #### [facility] Laboratory [address] [place] [address] Dr. Jovanna Oneill Neutrophils/100 WBC (Bld) 55.4 % Normal 43.0-75.0 [facility] Comment on above: Performed By: #### C BC #### [facility] Laboratory [address] [place] [address] Dr. Jovanna Oneill Platelet mean volume (Bld) [Entitic vol] 10.2 fL Normal 9.5-13.5 [facility] Comment on above: Performed By: #### C BC #### [facility] Laboratory [address] [place] [address] Dr. Jovanna Oneill PLT 181 103/ul Normal 150-450 [facility] Comment on above: Performed By: #### C BC #### [facility] [address] [address] [address] Jovanna Oneill RBC 4.04 106/ul Critically low 4.20-5.40 [facility] Comment on above: Performed By: #### C BC #### [facility] [address] [address] [address] Jovanna Oneill WBC 9.3 103/ul Normal 4.0-11.0 [facility] Comment on above: Performed By: #### C BC #### [facility] [address] [address] [address] Jovanna Oneill CRPon 10-08-2022 CRP [Mass/Vol] mg/L Normal <=1.0 [facility] Comment on above: Performed By: #### B MP, CRP ####[facility] [address] [address]Dr. Jovanna Oneill LACTATE/LACTIC ACIDon 2021 Lactate [Moles/Vol] 0.4 mmol/L Normal 0.4-1.9 [facility] Comment on above: Performed By: #### L ACT #### [facility] [address] [address] [address] Jovanna Oneill PROF CHEM 8 (BAS METB)on Anion gap [Moles/Vol] 12.6 mmol/L Normal [facility] Comment on above: Performed By: #### B MP, CRP #### [facility] [address] [address] [address] Jovanna Oneill Calcium [Mass/Vol] 8.6 mg/dL Normal 8.5-10.1 [facility] Comment on above: Performed By: #### B MP, CRP #### [facility] [address] [address] [address] Jovanna Oneill Chloride [Moles/Vol] 104 mmol/L Normal 98-107 [facility] Comment on above: Performed By: #### B MP, CRP #### [facility] [address] [address] [address] Jovanna Oneill CO2 [Moles/Vol] 26.8 mmol/L Normal 21.0-32.0 [facility] Comment on above: Performed By: #### B MP, CRP #### [facility] [address] [address] [address] Jovanna Oneill Creatinine [Mass/Vol] 0.52 mg/dL Critically low 0.55-1.02 [facility] Comment on above: Performed By: #### B MP, CRP #### [facility] [address] [address] [address] Jovanna Oneill EGFR-AF VIETNAMESE >60 Normal >=60 [facility] Comment on above: Performed By: #### B MP, CRP #### [facility] [address] [place] [address] Dr. Jovanna Oneill EGFR-NON AF VIETNAMESE >60 Normal >=60 [facility] Comment on above: Performed By: #### B MP, CRP #### [facility] [address] [address] [address] Jovanna Oneill Glucose [Mass/Vol] 93 mg/dL Normal 74-106 [facility] Comment on above: Performed By: #### B MP, CRP #### [facility] [address] [address] [address] Jovanna Oneill Potassium [Moles/Vol] 3.4 mmol/L Critically low 3.5-5.1 [facility] Comment on above: Performed By: #### B MP, CRP #### [facility] [address] [address] [address] Jovanna Oneill Sodium [Moles/Vol] 140 mmol/L Normal 136-145 [facility] Comment on above: Performed By: #### B MP, CRP #### [facility] [address] [address] [address] Jovanna Oneill Urea nitrogen [Mass/Vol] 11.0 mg/dL Normal 7.0-18.0 [facility] Comment on above: Performed By: #### B MP, CRP #### [facility] [address] [address] [address] Jovanna Oneill Urea nitrogen/Creatinine [Mass ratio] 21.2 mg/mg Normal [facility] Comment on above: Performed By: #### B MP, CRP #### [facility] [address] [address] [address] Jovanna Oneill SED RATE [facility] 2021 SED RATE 17 mm/hr Normal <=20 [facility] Comment on above: Performed By: #### S EDR ####[facility] [address] [address]Dr. Jovanna Oneill Physician Referralon 022 Physician Referral [id number] .[id number]:127 Normal [facility] Physician Referral [id number]#1 .[id number]:127 Normal [facility] PROF 14(COMP METB)on 022 Albumin [Mass/Vol] 3.4 g/dL Normal 3.4-5.0 [facility] Comment on above: Performed By: #### V ITB12 #### [facility] [address] [place] [address] Dr. Jovanna Oneill Albumin/Globulin [Mass ratio] 1.1 {ratio} Normal [facility] Comment on above: Performed By: #### V ITB12 #### [facility] [address] [place] [address] Dr. Jovanna Oneill ALP [Catalytic activity/Vol] 88 U/L Normal 46-116 [facility] Comment on above: Performed By: #### V ITB12 #### [facility] [address] [place] [address] Dr. Jovanna Oneill ALT [Catalytic activity/Vol] 11 U/L Critically low 14-59 [facility] Comment on above: Performed By: #### V ITB12 #### [facility] [address] [place] [address] Dr. Jovanna Oneill Anion gap [Moles/Vol] 8.7 mmol/L Normal [facility] Comment on above: Performed By: #### V ITB12 #### [facility] [address] [address] [address] Jovanna Oneill AST [Catalytic activity/Vol] 13 U/L Critically low 15-37 [facility] Comment on above: Performed By: #### V ITB12 #### [facility] [address] [place] [address] Dr. Jovanna Oneill Bilirubin [Mass/Vol] 0.6 mg/dL Normal 0.2-1.0 [facility] Comment on above: Performed By: #### V ITB12 #### [facility] [address] [place] [address] Dr. Jovanna Oneill Calcium [Mass/Vol] 8.7 mg/dL Normal 8.5-10.1 [facility] Comment on above: Performed By: #### V ITB12 #### [facility] [address] [place] [address] Dr. Jovanna Oneill Chloride [Moles/Vol] 104 mmol/L Normal 98-107 [facility] Comment on above: Performed By: #### V ITB12 #### [facility] [address] [place] [address] Dr. Jovanna Oneill CO2 [Moles/Vol] 31.9 mmol/L Normal 21.0-32.0 [facility] Comment on above: Performed By: #### V ITB12 #### [facility] [address] [place] [address] Dr. Jovanna Oneill Creatinine [Mass/Vol] 0.65 mg/dL Normal 0.55-1.02 [facility] Comment on above: Performed By: #### V ITB12 #### [facility] [address] [place] [address] Dr. Jovanna Oneill EGFR-AF VIET[place]ESE >60 Normal >=60 [facility] Comment on above: Performed By: #### V ITB12 #### [facility] [address] [place] [address] Dr. Jovanna Oneill EGFR-NON AF VIET[place]ESE >60 Normal >=60 [facility] Comment on above: Performed By: #### V ITB12 #### [facility] [address] [place] [address] Dr. Jovanna Oneill Globulin (S) [Mass/Vol] 3.2 g/dL Normal [facility] Comment on above: Performed By: #### V ITB12 #### [facility] [address] [address] [address] Jovanna Oneill Glucose [Mass/Vol] 91 mg/dL Normal 74-106 [facility] Comment on above: Performed By: #### V ITB12 #### [facility] [address] [place] [address] Dr. Jovanna Oneill Potassium [Moles/Vol] 3.6 mmol/L Normal 3.5-5.1 [facility] Comment on above: Performed By: #### V ITB12 #### [facility] [address] [place] [address] Dr. Jovanna Oneill Protein [Mass/Vol] 6.6 g/dL Normal 6.4-8.2 [facility] Comment on above: Performed By: #### V ITB12 #### [facility] [address] [place] [address] Dr. Jovanna Oneill Sodium [Moles/Vol] 141 mmol/L Normal 136-145 [facility] Comment on above: Performed By: #### V ITB12 #### [facility] [address] [place] [address] Dr. Jovanna Oneill Urea nitrogen [Mass/Vol] 4.0 mg/dL Critically low 7.0-18.0 [facility] Comment on above: Performed By: #### V ITB12 #### [facility] [address] [place] [address] Dr. Jovanna Oneill Urea nitrogen/Creatinine [Mass ratio] 6.2 mg/mg Normal [facility] Comment on above: Performed By: #### V ITB12 #### [facility] [address] [place] [address] Dr. Jovanna Oneill HEPATITIS C AB CASCADE TO QU ANT PCR GENOon 09-13-2022 HCV AB <0.1 Normal 0.0-0.9 [facility] Comment on above: Performed By: #### H EPCASC #### [facility] [address] [address] [address] Jovanna Oneill Interpretation: Comment Normal [facility] Comment on above: Result Comment: Atiya tive Not infected with HCV, unless recent infection is suspected or other evidence exists to indicate HCV infection. Performed By: #### H EPCASC #### [facility] [address] [address] [address] Jovanna Oneill CBC AUTO DIFFon 09-12-2022 BASO # 0.0 103/ul Normal 0.0-0.1 [facility] Comment on above: Performed By: #### C BC #### [facility] [address] [address] [address] Jovanna Oneill Basophils/100 WBC (Bld) 0.3 % Normal 0.2-2.0 [facility] Comment on above: Performed By: #### C BC #### [facility] [address] [place] [address] Dr. Jovanna Oneill EO # 0.1 103/ul Normal 0.0-0.7 [facility] Comment on above: Performed By: #### C BC #### [facility] [address] [place] [address] Dr. Jovanna Oneill Eosinophils/100 WBC (Bld) 0.7 % Critically low 0.9-7.0 [facility] Comment on above: Performed By: #### C BC #### [facility] [address] [place] [address] Dr. Jovanna Oneill Erythrocyte distribution width (RBC) [Ratio] 12.3 % Normal 11.0-15.0 [facility] Comment on above: Performed By: #### C BC #### [facility] [address] [place] [address] Dr. Jovanna Oneill Hematocrit (Bld) [Volume fraction] 40.2 % Normal 36.0-48.0 [facility] Comment on above: Performed By: #### C BC #### [facility] [address] [place] [address] Dr. Jovanna Oneill Hemoglobin (Bld) [Mass/Vol] 13.4 g/dL Normal 12.0-16.0 [facility] Comment on above: Performed By: #### C BC #### [facility] [address] [place] [address] Dr. Jovanna Oneill IG # 0.02 10e3/ul Normal 0.00-0.03 [facility] Comment on above: Performed By: #### C BC #### [facility] [address] [place] [address] Dr. Jovanna Oneill IG % 0.3 % Normal 0.0-0.5 [facility] Comment on above: Performed By: #### C BC #### [facility] [address] [place] [address] Dr. Jovanna Oneill LYMPH # 2.2 103/ul Normal 1.2-3.8 [facility] Comment on above: Performed By: #### C BC #### [facility] [address] [place] [address] Dr. Jovanna Oneill Lymphocytes/100 WBC (Bld) 31.9 % Normal 20.5-60.0 [facility] Comment on above: Performed By: #### C BC #### [facility] [address] [place] [address] Dr. Jovanna Oneill MANUAL DIFF REQ NO Normal [facility] Comment on above: Performed By: #### C BC #### [facility] [address] [place] [address] Dr. Jovanna Oneill MCH (RBC) [Entitic mass] 31.8 pg Normal 26.7-34.0 [facility] Comment on above: Performed By: #### C BC #### [facility] [address] [place] [address] Dr. Jovanna Oneill MCHC (RBC) [Mass/Vol] 33.3 g/dL Normal 29.9-35.2 [facility] Comment on above: Performed By: #### C BC #### [facility] [address] [place] [address] Dr. Jovanna Oneill MCV (RBC) [Entitic vol] 95.5 fL Normal 81.0-99.0 [facility] Comment on above: Performed By: #### C BC #### [facility] [address] [place] [address] Dr. Jovanna Oneill MONO # 0.3 103/ul Normal 0.3-0.8 [facility] Comment on above: Performed By: #### C BC #### [facility] [address] [place] [address] Dr. Jovanna Oneill Monocytes/100 WBC (Bld) 4.4 % Normal 1.7-12.0 [facility] Comment on above: Performed By: #### C BC #### [facility] [address] [place] [address] Dr. Jovanna Oneill NEUT # 4.4 103/ul Normal 1.4-6.5 [facility] Comment on above: Performed By: #### C BC #### [facility] [address] [place] [address] Dr. Jovanna Oneill Neutrophils/100 WBC (Bld) 62.4 % Normal 43.0-75.0 [facility] Comment on above: Performed By: #### C BC #### [facility] [address] [place] [address] Dr. Jovanna Oneill Platelet mean volume (Bld) [Entitic vol] 10.9 fL Normal 9.5-13.5 [facility] Comment on above: Performed By: #### C BC #### [facility] [address] [place] [address] Dr. Jovanna Oneill PLT 179 103/ul Normal 150-450 [facility] Comment on above: Performed By: #### C BC #### [facility] [address] [place] [address] Dr. Jovanna Oneill RBC 4.21 106/ul Normal 4.20-5.40 [facility] Comment on above: Performed By: #### C BC #### [facility] [address] [place] [address] Dr. Jovanna Oneill WBC 7.0 103/ul Normal 4.0-11.0 [facility] Comment on above: Performed By: #### C BC #### [facility] [address] [place] [address] Dr. Jovanna Oneill GLYCOHEMOGLOBIN A1Con 2021 ADA RECOMMENDATION SEE BELOW Normal [facility] Comment on above: Result Comment: ADA RECOMMENDED LIMIT 4.0 - 6.0 ADA THERAPEUTIC TARGET < 7.0 ACTION SUGGESTED > 7.0 Performed By: #### L ACT #### [facility] [address] [place] [address] Dr. Jovanna Oneill Glucose [Mass/Vol] 105 mg/dL Normal [facility] Comment on above: Performed By: #### L ACT #### [facility] [address] [place] [address] Dr. Jovanna Oneill HbA1c (Bld) [Mass fraction] 5.3 % Normal 4.5-6.2 [facility] Comment on above: Performed By: #### L ACT #### [facility] [address] [place] [address] Dr. Jovanna Oneill LIPID PROFILEon 09-12-2022 CHOL-HDL RATIO NORM SEE BELOW Normal [facility] Comment on above: Result Comment: 3.3 - 4.4 LOW RISK 4.4 - 7.1 AVERAGE RISK 7.1 - 11.0 MODERATE RISK >11.0 HIGH RISK Performed By: #### C MP, LIPID #### [facility] [address] [place] [address] Dr. Jovanna Oneill Cholesterol [Mass/Vol] 135 mg/dL Normal <=200 [facility] Comment on above: Performed By: #### C MP, LIPID #### [facility] [address] [place] [address] Dr. Jovanna Oneill Cholesterol in HDL [Mass/Vol] 35 mg/dL Critically low 40-60 [facility] Comment on above: Performed By: #### C MP, LIPID #### [facility] [address] [place] [address] Dr. Jovanna Oneill Cholesterol in LDL [Mass/Vol] 84.8 mg/dL Normal [facility] Comment on above: Performed By: #### C MP, LIPID #### [facility] [address] [place] [address] Dr. Jovanna Oneill Cholesterol.total/Cho lesterol in HDL [Mass ratio] 3.9 {ratio} Normal [facility] Comment on above: Performed By: #### C MP, LIPID #### [facility] [address] [address] [address] Jovanna Oneill HDL NORMAL > or = 60 mg/dl - LO W CARDIOVASCULAR RISK <40 mg/dl - HIGH CARDIOVASCULAR RISK Normal [facility] Comment on above: Performed By: #### C MP, LIPID #### [facility] [address] [address] [address] Jovanna Oneill LDL CALC NORMAL SEE BELOW Normal [facility] Comment on above: Result Comment: <100 mg/dl OPTIMAL 100 - 129 mg/dl NEAR OR ABOVE OPTIMAL 130 - 159 mg/dl BORDERLINE HIGH 160 - 189 mg/dl HIGH >190 mg/dl VERY HIGH Performed By: #### C MP, LIPID #### [facility] [address] [address] [address] Jovanna Oneill Triglyceride [Mass/Vol] 76 mg/dL Normal <=150 [facility] Comment on above: Performed By: #### C MP, LIPID #### [facility] [address] [address] [address] Jovanna Oneill VLDL CALC 15.2 mg/dL Normal [facility] Comment on above: Performed By: #### C MP, LIPID #### [facility] [address] [address] [address] Jovanna Oneill PROF 14(COMP METB)on 022 Albumin [Mass/Vol] 3.5 g/dL Normal 3.4-5.0 [facility] Comment on above: Performed By: #### C MP, LIPID #### [facility] [address] [address] [address] Jovanna Oneill Albumin/Globulin [Mass ratio] 1.1 {ratio} Normal [facility] Comment on above: Performed By: #### C MP, LIPID #### [facility] [address] [address] [address] Jovanna Oneill ALP [Catalytic activity/Vol] 79 U/L Normal 46-116 [facility] Comment on above: Performed By: #### C MP, LIPID #### [facility] [address] [address] [address] Jovanna Oneill ALT [Catalytic activity/Vol] 15 U/L Normal 14-59 [facility] Comment on above: Performed By: #### C MP, LIPID #### [facility] [address] [address] [address] Jovanna Oneill Anion gap [Moles/Vol] 4.9 mmol/L Normal [facility] Comment on above: Performed By: #### C MP, LIPID #### [facility] [address] [address] [address] Jovanna Oneill AST [Catalytic activity/Vol] 17 U/L Normal 15-37 [facility] Comment on above: Performed By: #### C MP, LIPID #### [facility] [address] [place] [address] Dr. Jovanna Oneill Bilirubin [Mass/Vol] 0.4 mg/dL Normal 0.2-1.0 [facility] Comment on above: Performed By: #### C MP, LIPID #### [facility] [address] [address] [address] Jovanna Oneill Calcium [Mass/Vol] 8.7 mg/dL Normal 8.5-10.1 [facility] Comment on above: Performed By: #### C MP, LIPID #### [facility] [address] [address] [address] Jovanna Oneill Chloride [Moles/Vol] 103 mmol/L Normal 98-107 [facility] Comment on above: Performed By: #### C MP, LIPID #### [facility] [address] [address] [address] Jovanna Oneill CO2 [Moles/Vol] 35.8 mmol/L Critically high 21.0-32.0 [facility] Comment on above: Performed By: #### C MP, LIPID #### [facility] [address] [address] [address] Jovanna Oneill Creatinine [Mass/Vol] 0.70 mg/dL Normal 0.55-1.02 [facility] Comment on above: Performed By: #### C MP, LIPID #### [facility] [address] [address] [address] Jovanna Oneill EGFR-AF VIET[place]ESE >60 Normal >=60 [facility] Comment on above: Performed By: #### C MP, LIPID #### [facility] [address] [address] [address] Jovanna Oneill EGFR-NON AF VIET[place]ESE >60 Normal >=60 [facility] Comment on above: Performed By: #### C MP, LIPID #### [facility] [address] [address] [address] Jovanna Oneill Globulin (S) [Mass/Vol] 3.2 g/dL Normal [facility] Comment on above: Performed By: #### C MP, LIPID #### [facility] [address] [address] [address] Jovanna Oneill Glucose [Mass/Vol] 86 mg/dL Normal 74-106 [facility] Comment on above: Performed By: #### C MP, LIPID #### [facility] [address] [address] [address] Jovanna Oneill Potassium [Moles/Vol] 2.7 mmol/L Critically low 3.5-5.1 [facility] Comment on above: Performed By: #### C MP, LIPID #### [facility] [address] [address] [address] Jovanna Oneill Protein [Mass/Vol] 6.7 g/dL Normal 6.4-8.2 [facility] Comment on above: Performed By: #### C MP, LIPID #### [facility] [address] [address] [address] Jovanna Oneill Sodium [Moles/Vol] 141 mmol/L Normal 136-145 [facility] Comment on above: Performed By: #### C MP, LIPID #### [facility] [address] [address] [address] Jovanna Oneill Urea nitrogen [Mass/Vol] 6.0 mg/dL Critically low 7.0-18.0 [facility] Comment on above: Performed By: #### C MP, LIPID #### [facility] [address] [place], [place] [address] Dr. Jovanna Oneill Urea nitrogen/Creatinine [Mass ratio] 8.6 mg/mg Normal [facility] Comment on above: Performed By: #### C MP, LIPID #### [facility] [address] [place], [place] [address] Dr. Jovanna Oneill US THYROIDon 09-12-2022 US [...] by: FRANCES AGUSTIN Date: 2022-09-12 11:52 Normal [facility] VITAMIN B12on 09-12-2022 Cobalamin (Vitamin B12) [Mass/Vol] 280.0 pg/mL Normal 193.0-986.0 [facility] Comment on above: Performed By: #### V ITB12 #### [facility] [id number] Jovanna Oneill CT CSPINE WO CONon [...] MAN VILLALOBOS Date: 2022-08-24 18:11 Normal [facility] CT NECK ST W CONon 2 CT [...] WOO PAIGE Date: 2022-08-16 23:10 Normal [facility] CBC AUTO DIFFon 08-16-2022 BASO # 0.0 103/ul Normal 0.0-0.1 [facility] Comment on above: Performed By: #### C BC ####[facility] [address] [id number] Lindseyreagan Oneill Basophils/100 WBC (Bld) 0.2 % Normal 0.2-2.0 [facility] Comment on above: Performed By: #### C BC ####[facility] [address] [address]Dr. Jovanna Oneill EO # 0.1 103/ul Normal 0.0-0.7 [facility] Comment on above: Performed By: #### C BC ####[facility] [address] [address]Dr. Jovanna Oneill Eosinophils/100 WBC (Bld) 0.7 % Critically low 0.9-7.0 [facility] Comment on above: Performed By: #### C BC ####[facility] [address] [place], [place] [address]Dr. Jovanna Oneill Erythrocyte distribution width (RBC) [Ratio] 12.1 % Normal 11.0-15.0 [facility] Comment on above: Performed By: #### C BC ####[facility] [address] [place], [place] [address]Dr. Jovanna Oneill Hematocrit (Bld) [Volume fraction] 38.8 % Normal 36.0-48.0 [facility] Comment on above: Performed By: #### C BC ####[facility] [address] [place], [place] [address]Dr. Jovanna Oneill Hemoglobin (Bld) [Mass/Vol] 12.8 g/dL Normal 12.0-16.0 [facility] Comment on above: Performed By: #### C BC ####[facility] [address] [place], [place] [address]Dr. Jovanna Oneill IG # 0.06 10e3/ul Critically high 0.00-0.03 [facility] Comment on above: Performed By: #### C BC ####[facility] [address] [place], [place] [address]Dr. Jovanna Oneill IG % 0.4 % Normal 0.0-0.5 [facility] Comment on above: Performed By: #### C BC ####[facility] [address] [place], [place] [address]DrJhony Oneill LYMPH # 2.5 103/ul Normal 1.2-3.8 [facility] Comment on above: Performed By: #### C BC ####[facility] [address] [address]Dr. Jovanna Oneill Lymphocytes/100 WBC (Bld) 18.1 % Critically low 20.5-60.0 [facility] Comment on above: Performed By: #### C BC ####[facility] [address] [id number] Oneill MANUAL DIFF REQ NO Normal [facility] Comment on above: Performed By: #### C BC ####[facility] [address] [id number] Oneill MCH (RBC) [Entitic mass] 32.0 pg Normal 26.7-34.0 [facility] Comment on above: Performed By: #### C BC ####[facility] [address] [place], [place] [address]Dr. Jovanna Oneill MCHC (RBC) [Mass/Vol] 33.0 g/dL Normal 29.9-35.2 [facility] Comment on above: Performed By: #### C BC ####[facility] [address] [id number] Oneill MCV (RBC) [Entitic vol] 97.0 fL Normal 81.0-99.0 [facility] Comment on above: Performed By: #### C BC ####[facility] [address] [address]DrJhony Oneill MONO # 0.6 103/ul Normal 0.3-0.8 [facility] Comment on above: Performed By: #### C BC ####[facility] [address] [place], [place] [id number] nOeill Monocytes/100 WBC (Bld) 4.5 % Normal 1.7-12.0 [facility] Comment on above: Performed By: #### C BC ####[facility] [address] [place], [place] [id number] Oneill NEUT # 10.4 103/ul Critically high 1.4-6.5 [facility] Comment on above: Performed By: #### C BC ####[facility] [address] [id number]. Jovanna Oneill Neutrophils/100 WBC (Bld) 76.1 % Critically high 43.0-75.0 [facility] Comment on above: Performed By: #### C BC ####[facility] [address] [id number]. Jovanna Oneill Platelet mean volume (Bld) [Entitic vol] 10.9 fL Normal 9.5-13.5 [facility] Comment on above: Performed By: #### C BC ####[facility] [address] [address]Dr. Jovanna Oneill PLT 193 103/ul Normal 150-450 [facility] Comment on above: Performed By: #### C BC ####[facility] [address] [address]Dr. Jovanna Oneill RBC 4.00 106/ul Critically low 4.20-5.40 [facility] Comment on above: Performed By: #### C BC ####[facility] [address] [id number]. Jovanna Oneill WBC 13.7 103/ul Critically high 4.0-11.0 [facility] Comment on above: Performed By: #### C BC ####[facility] [address] [id number] Oneill FREE T4on 08-16-2022 Free T4 [Mass/Vol] 0.68 ng/dL Critically low 0.76-1.46 [facility] Comment on above: Performed By: #### L ACT #### [facility] [address] [address] [address] Jovanna Oneill HS-CRPon 08-16-2022 HS-CRP 1.04 mg/L Normal <=3.00 [facility] Comment on above: Performed By: #### L ACT #### [facility] [address] [address] [address] Jovanna Oneill PROF 14(COMP METB)on 022 Albumin [Mass/Vol] 3.5 g/dL Normal 3.4-5.0 [facility] Comment on above: Performed By: #### V ITB12 #### [facility] [address] [place] [address] Dr. Jovanna Oneill Albumin/Globulin [Mass ratio] 1.1 {ratio} Normal [facility] Comment on above: Performed By: #### V ITB12 #### [facility] [address] [place] [address] Dr. Jovanna Oneill ALP [Catalytic activity/Vol] 82 U/L Normal 46-116 [facility] Comment on above: Performed By: #### V ITB12 #### [facility] [address] [place] [address] Dr. Jovanna Oneill ALT [Catalytic activity/Vol] 17 U/L Normal 14-59 [facility] Comment on above: Performed By: #### V ITB12 #### [facility] [address] [place] [address] Dr. Jovanna Oneill Anion gap [Moles/Vol] 9.6 mmol/L Normal [facility] Comment on above: Performed By: #### V ITB12 #### [facility] [address] [place] [address] Dr. Jovanna Oneill AST [Catalytic activity/Vol] 17 U/L Normal 15-37 [facility] Comment on above: Performed By: #### V ITB12 #### [facility] [address] [place] [address] Dr. Jovanna Oneill Bilirubin [Mass/Vol] 0.4 mg/dL Normal 0.2-1.0 [facility] Comment on above: Performed By: #### V ITB12 #### [facility] [address] [place] [address] Dr. Jovanna Oneill Calcium [Mass/Vol] 8.7 mg/dL Normal 8.5-10.1 [facility] Comment on above: Performed By: #### V ITB12 #### [facility] [address] [place] [address] Dr. Jovanna Oneill Chloride [Moles/Vol] 105 mmol/L Normal 98-107 [facility] Comment on above: Performed By: #### V ITB12 #### [facility] [address] [address] [address] Jovanna Oneill CO2 [Moles/Vol] 30.9 mmol/L Normal 21.0-32.0 [facility] Comment on above: Performed By: #### V ITB12 #### [facility] [address] [place] [address] Dr. Jovanna Oneill Creatinine [Mass/Vol] 0.69 mg/dL Normal 0.55-1.02 [facility] Comment on above: Performed By: #### V ITB12 #### [facility] [address] [place] [address] Dr. Jovanna Oneill EGFR-AF VIETNAMESE >60 Normal >=60 [facility] Comment on above: Performed By: #### V ITB12 #### [facility] [address] [address] [address] Jovanna Oneill EGFR-NON AF VIETNAMESE >60 Normal >=60 [facility] Comment on above: Performed By: #### V ITB12 #### [facility] [address] [place] [address] Dr. Jovanna Oneill Globulin (S) [Mass/Vol] 3.1 g/dL Normal [facility] Comment on above: Performed By: #### V ITB12 #### [facility] [address] [address] [address] Jovanna Oneill Glucose [Mass/Vol] 84 mg/dL Normal 74-106 [facility] Comment on above: Performed By: #### V ITB12 #### [facility] [address] [place] [address] Dr. Jovanna Oneill Potassium [Moles/Vol] 3.5 mmol/L Normal 3.5-5.1 [facility] Comment on above: Performed By: #### V ITB12 #### [facility] [address] [place] [address] Dr. Jovanna Oneill Protein [Mass/Vol] 6.6 g/dL Normal 6.4-8.2 [facility] Comment on above: Performed By: #### V ITB12 #### [facility] [address] [place] [address] Dr. Jovanna Oneill Sodium [Moles/Vol] 142 mmol/L Normal 136-145 [facility] Comment on above: Performed By: #### V ITB12 #### [facility] [address] [place] [address] Dr. Jovanna Oneill Urea nitrogen [Mass/Vol] 7.0 mg/dL Normal 7.0-18.0 [facility] Comment on above: Performed By: #### V ITB12 #### [facility] [address] [place] [address] Dr. Jovanna Oneill Urea nitrogen/Creatinine [Mass ratio] 10.1 mg/mg Normal [facility] Comment on above: Performed By: #### V ITB12 #### [facility] [address] [place] [address] Dr. Jovanna Oneill PROF CHEM 8 (BAS METB)on Anion gap [Moles/Vol] 8.5 mmol/L Normal [facility] Comment on above: Performed By: #### L ACT #### [facility] [address] [place] [address] Dr. Jovanna Oneill Calcium [Mass/Vol] 8.3 mg/dL Critically low 8.5-10.1 [facility] Comment on above: Performed By: #### L ACT #### [facility] [address] [place] [address] Dr. Jovanna Oneill Chloride [Moles/Vol] 105 mmol/L Normal 98-107 [facility] Comment on above: Performed By: #### L ACT #### [facility] [address] [place] [address] Dr. Jovanna Oneill CO2 [Moles/Vol] 28.4 mmol/L Normal 21.0-32.0 [facility] Comment on above: Performed By: #### L ACT #### [facility] [address] [place] [address] Dr. Jovanna Oneill Creatinine [Mass/Vol] 0.72 mg/dL Normal 0.55-1.02 [facility] Comment on above: Performed By: #### L ACT #### [facility] [address] [place] [address] Dr. Jovanna Oneill EGFR-AF VIETNAMESE >60 Normal >=60 [facility] Comment on above: Performed By: #### L ACT #### [facility] [address] [address] [address] Jovanna Oneill EGFR-NON AF VIET[place]ESE >60 Normal >=60 [facility] Comment on above: Performed By: #### L ACT #### [facility] [address] [place] [address] Dr. Jovanna Oneill Glucose [Mass/Vol] 242 mg/dL Critically high 74-106 [facility] Comment on above: Performed By: #### L ACT #### [facility] [address] [place] [address] Dr. Jovanna Oneill Potassium [Moles/Vol] 2.9 mmol/L Critically low 3.5-5.1 [facility] Comment on above: Performed By: #### L ACT #### [facility] [address] [place] [address] Dr. Joavnna Oneill Sodium [Moles/Vol] 138 mmol/L Normal 136-145 [facility] Comment on above: Performed By: #### L ACT #### [facility] [address] [place] [address] Dr. Jovanna Oneill Urea nitrogen [Mass/Vol] 5.0 mg/dL Critically low 7.0-18.0 [facility] Comment on above: Performed By: #### L ACT #### [facility] [address] [place] [address] Dr. Jovanna Oneill Urea nitrogen/Creatinine [Mass ratio] 6.9 mg/mg Normal [facility] Comment on above: Performed By: #### L ACT #### [facility] [address] [place] [address] Dr. Jovanna Oneill TSHon 08-16-2022 TSH 4.977 uIU/mL Critically high 0.358-3.740 [facility] Comment on above: Performed By: #### V ITB12 #### [facility] [address] [address] [address] ABD/PELVIS WO CONon [...] Ayaka LEON Date: 2022-05-02 03:06 Normal [facility] DRUG SCREEN RAPID (URINE)on 05-02-2022 AMP Negative Normal NEGATIVE [facility] Comment on above: Performed By: #### L ACT #### [facility] [address] [address] [address] Jovanna Oneill BAR Negative Normal NEGATIVE [facility] Comment on above: Performed By: #### L ACT #### [facility] [address] [place], [place] [address] Dr. Jovanna Oneill [facility] Negative Normal NEGATIVE [facility] Comment on above: Performed By: #### L ACT #### [facility] [address] [place] [address] Dr. Jovanna Oneill BZO Negative Normal NEGATIVE [facility] Comment on above: Performed By: #### L ACT #### [facility] [address] [place] [address] Dr. Jovanna Oneill CARA Negative Normal NEGATIVE [facility] Comment on above: Performed By: #### L ACT #### [facility] [address] [place] [address] Dr. Jovanna Oneill CUT-OFFS SEE BELOW Normal [facility] Comment on above: Result Comment: AMP [...] ng/mL Performed By: #### L ACT #### [facility] [address] [place] [address] Dr. Jovanna Oneill DRUG CUT HEADER DRUG CLASS TEST SYSTEM CUT-OFF CONCENTRATIONS ARE FOLLOWS: Normal [facility] Comment on above: Performed By: #### L ACT #### [facility] [address] [place] [address] Dr. Jovanna Oneill mAMP Negative Normal NEGATIVE [facility] Comment on above: Performed By: #### L ACT #### [facility] [address] [place] [address] Dr. Jovanna Oneill MTD Negative Normal NEGATIVE [facility] Comment on above: Performed By: #### L ACT #### [facility] [address] [place] [address] Dr. Jovanna Oneill OPI Positive Abnormal NEGATIVE [facility] Comment on above: Performed By: #### L ACT #### [facility] [address] [place] [address] Dr. Jovanna Oneill OXY Negative Normal NEGATIVE [facility] Comment on above: Performed By: #### L ACT #### [facility] [address] [place] [address] Dr. Jovanna Oneill PCP Negative Normal NEGATIVE [facility] Comment on above: Performed By: #### L ACT #### [facility] [address] [place] [address] Dr. Jovanna Oneill PPX Negative Normal NEGATIVE [facility] Comment on above: Performed By: #### L ACT #### [facility] [address] [place] [address] Dr. Jovanna Oneill TCA Negative Normal NEGATIVE [facility] Comment on above: Performed By: #### L ACT #### [facility] [address] [place] [address] Dr. Jovanna Oneill THC Positive Abnormal NEGATIVE [facility] Comment on above: Performed By: #### L ACT #### [facility] [address] [place] [address] Dr. Jovanna Oneill ER URINE PROFILEon 2 Bilirubin Ql (U) Negative Normal NEGATIVE [facility] Comment on above: Performed By: #### L ACT #### [facility] [address] [place] [address] Dr. Jovanna Oneill Clarity (U) CLEAR Normal CLEAR [facility] Comment on above: Performed By: #### L ACT #### [facility] [address] [place] [address] Dr. Jovanna Oneill Color (U) LT. YELLOW Normal YELLOW [facility] Comment on above: Performed By: #### L ACT #### [facility] [address] [place] [address] Dr. Jovanna Oneill ERUAHHellen A micrscopic examination will be performed if indicated. Normal [facility] Comment on above: Performed By: #### L ACT #### [facility] [address] [place] [address] Dr. Jovanna Oneill Glucose Ql (U) Negative Normal NEGATIVE [facility] Comment on above: Performed By: #### L ACT #### [facility] [address] [place] [address] Dr. Jovanna Oneill Hemoglobin Ql (U) Negative Normal NEGATIVE [facility] Comment on above: Performed By: #### L ACT #### [facility] [address] [place] [address] Dr. Jovanna Oneill Ketones Ql (U) Negative Normal NEGATIVE [facility] Comment on above: Performed By: #### L ACT #### [facility] [address] [place] [address] Dr. Jovanna Oneill LEUKOCYTES Negative Normal NEGATIVE [facility] Comment on above: Performed By: #### L ACT #### [facility] [address] [place] [address] Dr. Jovanna Oneill Nitrite Ql (U) Negative Normal NEGATIVE [facility] Comment on above: Performed By: #### L ACT #### [facility] [address] [place] [address] Dr. Jovanna Oneill pH (U) 6.0 [pH] Normal 5-9 [facility] Comment on above: Performed By: #### L ACT #### [facility] [address] [place] [address] Dr. Jovanna Oneill SPEC GRAVITY <=1.005 Abnormal 1.005-<=1.025 [facility] Comment on above: Performed By: #### L ACT #### [facility] [address] [place] [address] Dr. Jovanna Oneill UA PROTEIN Negative Normal NEGATIVE/ TRACE [facility] Comment on above: Performed By: #### L ACT #### [facility] [address] [place] [address] Dr. Jovanna Oneill UR MICRO IND NOT INDICATED Normal [facility] Comment on above: Performed By: #### L ACT #### [facility] [address] [place] [address] Dr. Jovanna Oneill Urobilinogen Qn (U) 0.2 {Isabella'U}/dL Normal 0.2 - 1. 0 [facility] Comment on above: Performed By: #### L ACT #### [facility] [address] [address] [address] Jovanna Oneill CBC AUTO DIFFon 04-20-2022 BASO # 0.0 103/ul Normal 0.0-0.1 [facility] Comment on above: Performed By: #### L ACT #### [facility] [address] [place] [address] Dr. Jovanna Oneill Basophils/100 WBC (Bld) 0.1 % Critically low 0.2-2.0 [facility] Comment on above: Performed By: #### L ACT #### [facility] [address] [place] [address] Dr. Jovanna Oneill EO # 0.0 103/ul Normal 0.0-0.7 [facility] Comment on above: Performed By: #### L ACT #### [facility] [address] [place] [address] Dr. Jovanna Oneill Eosinophils/100 WBC (Bld) 0.1 % Critically low 0.9-7.0 [facility] Comment on above: Performed By: #### L ACT #### [facility] [address] [place] [address] Dr. Jovanna Oneill Erythrocyte distribution width (RBC) [Ratio] 12.6 % Normal 11.0-15.0 [facility] Comment on above: Performed By: #### L ACT #### [facility] [address] [place] [address] Dr. Jovanna Oneill Hematocrit (Bld) [Volume fraction] 38.8 % Normal 36.0-48.0 [facility] Comment on above: Performed By: #### L ACT #### [facility] [address] [place] [address] Dr. Jovanna Oneill Hemoglobin (Bld) [Mass/Vol] 12.6 g/dL Normal 12.0-16.0 [facility] Comment on above: Performed By: #### L ACT #### [facility] [address] [place] [address] Dr. Jovanna Oneill IG # 0.13 10e3/ul Critically high 0.00-0.03 [facility] Comment on above: Performed By: #### L ACT #### [facility] [address] [address] [address] Jovanna Oneill IG % 1.0 % Critically high 0.0-0.5 [facility] Comment on above: Performed By: #### L ACT #### [facility] [address] [address] [address] Jovanna Oneill LYMPH # 1.1 103/ul Critically low 1.2-3.8 [facility] Comment on above: Performed By: #### L ACT #### [facility] [address] [place] [address] Dr. Jovanna Oneill Lymphocytes/100 WBC (Bld) 8.3 % Critically low 20.5-60.0 [facility] Comment on above: Performed By: #### L ACT #### [facility] [address] [place] [address] Dr. Jovanna Oneill MANUAL DIFF REQ NO Normal [facility] Comment on above: Performed By: #### L ACT #### [facility] [address] [place] [address] Dr. Jovanna Oneill MCH (RBC) [Entitic mass] 31.0 pg Normal 26.7-34.0 [facility] Comment on above: Performed By: #### L ACT #### [facility] [address] [place] [address] Dr. Jovanna Oneill MCHC (RBC) [Mass/Vol] 32.5 g/dL Normal 29.9-35.2 [facility] Comment on above: Performed By: #### L ACT #### [facility] [address] [place] [address] Dr. Jovanna Oneill MCV (RBC) [Entitic vol] 95.3 fL Normal 81.0-99.0 [facility] Comment on above: Performed By: #### L ACT #### [facility] [address] [place] [address] Dr. Jovanna Oneill MONO # 0.8 103/ul Normal 0.3-0.8 [facility] Comment on above: Performed By: #### L ACT #### [facility] [address] [address] [address] Jovanna Oneill Monocytes/100 WBC (Bld) 5.8 % Normal 1.7-12.0 [facility] Comment on above: Performed By: #### L ACT #### [facility] [address] [address] [address] Jovanna Oneill NEUT # 11.4 103/ul Critically high 1.4-6.5 [facility] Comment on above: Performed By: #### L ACT #### [facility] [address] [address] [address] Jovanna Oneill Neutrophils/100 WBC (Bld) 84.7 % Critically high 43.0-75.0 [facility] Comment on above: Performed By: #### L ACT #### [facility] [address] [place] [address] Dr. Jovanna Oneill Platelet mean volume (Bld) [Entitic vol] 10.1 fL Normal 9.5-13.5 [facility] Comment on above: Performed By: #### L ACT #### [facility] [address] [address] [address] Jovanna Oneill PLT 205 103/ul Normal 150-450 [facility] Comment on above: Performed By: #### L ACT #### [facility] [address] [address] [address] Jovanna Oneill RBC 4.07 106/ul Critically low 4.20-5.40 [facility] Comment on above: Performed By: #### L ACT #### [facility] [address] [address] [address] Jovanna Oneill WBC 13.4 103/ul Critically high 4.0-11.0 [facility] Comment on above: Performed By: #### L ACT #### [facility] [address] [address] [address] Jovanna Oneill DRUG SCREEN RAPID (URINE)on 04-20-2022 AMP Negative Normal NEGATIVE [facility] Comment on above: Performed By: #### U MICRO, ERUR, DRUGRPD ####[facility] [address] [address]. Rosaliareagan Oneill BAR Negative Normal NEGATIVE [facility] Comment on above: Performed By: #### U MICRO, ERUR, DRUGRPD ####[facility] [id number] [address]Dr. Rosaliareagan Oneill BUP Negative Normal NEGATIVE [facility] Comment on above: Performed By: #### U MICRO, ERUR, DRUGRPD ####[facility] [address] [place], [place] [address]Dr. Jovanna Oneill BZO Negative Normal NEGATIVE [facility] Comment on above: Performed By: #### U MICRO, ERUR, DRUGRPD ####[facility] [address] [place], [place] [address]Dr. Jovanna Oneill CARA Negative Normal NEGATIVE [facility] Comment on above: Performed By: #### U MICRO, ERUR, DRUGRPD ####[facility] [address] [place], [place] [address]Dr. Jovanna Oneill CUT-OFFS SEE BELOW Normal [facility] Comment on above: Result Comment: AMP (Amphetamine): [...] Performed By: #### U MICRO, ERUR, DRUGRPD ####[facility] [address] [place], [place] [address]Dr. Jovanna Oneill DRUG CUT HEADER DRUG CLASS TEST SYSTEM CUT-OFF CONCENTRATIONS ARE FOLLOWS: Normal [facility] Comment on above: Performed By: #### U MICRO, ERUR, DRUGRPD ####[facility] [id number] [address]Dr. Jovanna Oneill mAMP Negative Normal NEGATIVE [facility] Comment on above: Performed By: #### U MICRO, ERUR, DRUGRPD ####[facility] [address] [address]Dr. Jovanna Oneill MTD Negative Normal NEGATIVE [facility] Comment on above: Performed By: #### U MICRO, ERUR, DRUGRPD ####[facility] [address] [place], [place] [address]Dr. Jovanna Oneill OPI Positive Abnormal NEGATIVE [facility] Comment on above: Performed By: #### U MICRO, ERUR, DRUGRPD ####[facility] [address] [place], [place] [address]Dr. Jovanna Oneill OXY Negative Normal NEGATIVE [facility] Comment on above: Performed By: #### U MICRO, ERUR, DRUGRPD ####[facility] [address] [place], [place] [address]Dr. Jovanna Oneill PCP Negative Normal NEGATIVE [facility] Comment on above: Performed By: #### U MICRO, ERUR, DRUGRPD ####[facility] [address] [place], [place] [address]Dr. Jovanna Oneill PPX Negative Normal NEGATIVE [facility] Comment on above: Performed By: #### U MICRO, ERUR, DRUGRPD ####[facility] [address] [place], [place] [address]Dr. Jovanna Oneill TCA Negative Normal NEGATIVE [facility] Comment on above: Performed By: #### U MICRO, ERUR, DRUGRPD ####[facility] [address] [place], [place] [address]Dr. Jovanna Oneill THC Positive Abnormal NEGATIVE [facility] Comment on above: Performed By: #### U MICRO, ERUR, DRUGRPD ####[facility] [address] [place], [place] [address]Dr. Jovanna Oneill ER URINE PROFILEon 2 Bilirubin Ql (U) Negative Normal NEGATIVE [facility] Comment on above: Performed By: #### U MICRO, ERUR, DRUGRPD ####[facility] [address] [address]Dr. Jovanna Oneill Clarity (U) CLEAR Normal CLEAR [facility] Comment on above: Performed By: #### U MICRO, ERUR, DRUGRPD ####[facility] [address] [address]Dr. Yilan Oneill Color (U) LT. YELLOW Normal YELLOW [facility] Comment on above: Performed By: #### U MICRO, ERUR, DRUGRPD ####[facility] [address] [address]Dr. Yilan Oneill ERUAHD A micrscopic examination will be performed if indicated. Normal [facility] Comment on above: Performed By: #### U MICRO, ERUR, DRUGRPD ####[facility] [address] [address]Dr. Rosalialan Oneill Glucose Ql (U) >1000 Abnormal NEGATIVE [facility] Comment on above: Performed By: #### U MICRO, ERUR, DRUGRPD ####[facility] [address] [address]Dr. Yilan Oneill Hemoglobin Ql (U) Negative Normal NEGATIVE [facility] Comment on above: Performed By: #### U MICRO, ERUR, DRUGRPD ####[facility] [address] [address]Dr. Yilan Oneill Ketones Ql (U) Negative Normal NEGATIVE [facility] Comment on above: Performed By: #### U MICRO, ERUR, DRUGRPD ####[facility] [address] [address]Dr. Yilan Oneill LEUKOCYTES Negative Normal NEGATIVE [facility] Comment on above: Performed By: #### U MICRO, ERUR, DRUGRPD ####[facility] [address] [address]Dr. Yilan Oneill Nitrite Ql (U) Negative Normal NEGATIVE [facility] Comment on above: Performed By: #### U MICRO, ERUR, DRUGRPD ####[facility] [address] [place], [place] [address]Dr. Yilan Oneill pH (U) 6.5 [pH] Normal 5-9 [facility] Comment on above: Performed By: #### U MICRO, ERUR DRUGRPD ####[facility] [address] [address]Dr. Jovanna Onelil Protein (U) [Mass/Vol] 30 mg/dL Abnormal NEGATIVE/ TRACE [facility] Comment on above: Performed By: #### U MICRO, ERUR, DRUGRPD ####[facility] [address] [address]Dr. Jovanna Oneill SPEC GRAVITY 1.015 Normal 1.005-<=1.025 [facility] Comment on above: Performed By: #### U MICRO, ANDRIYR DRUGRPD ####[facility] [address] [address]Dr. Jovanna Oneill UR MICRO IND INDICATED Normal [facility] Comment on above: Performed By: #### U MICRO, ERUR, DRUGRPD ####[facility] [address] [address]Dr. Jovanna Oneill Urobilinogen Qn (U) 1.0 {Isabella'U}/dL Normal 0.2 - 1. 0 [facility] Comment on above: Performed By: #### U MICRO, ERUR, DRUGRPD ####[facility] [id number] [address]Dr. Jovanna Oneill LACTATE/LACTIC ACIDon 2021 Lactate [Moles/Vol] 1.7 mmol/L Normal 0.4-1.9 [facility] Comment on above: Performed By: #### L ACT #### [facility] [address] [address] [address] Jovanna Oneill PROF 14(COMP METB)on 022 Albumin [Mass/Vol] 3.4 g/dL Normal 3.4-5.0 [facility] Comment on above: Performed By: #### V ITB12 #### [facility] [address] [address] [address] Jovanna Oneill Albumin/Globulin [Mass ratio] 1.1 {ratio} Normal [facility] Comment on above: Performed By: #### V ITB12 #### [facility] [address] [place] [address] Dr. Jovanna Oneill ALP [Catalytic activity/Vol] 99 U/L Normal 46-116 [facility] Comment on above: Performed By: #### V ITB12 #### [facility] [address] [place] [address] Dr. Jovanna Oneill ALT [Catalytic activity/Vol] 32 U/L Normal 14-59 [facility] Comment on above: Performed By: #### V ITB12 #### [facility] [address] [place] [address] Dr. Jovanna Oneill Anion gap [Moles/Vol] 10.0 mmol/L Normal [facility] Comment on above: Performed By: #### V ITB12 #### [facility] [address] [place] [address] Dr. Jovanna Oneill AST [Catalytic activity/Vol] 38 U/L Critically high 15-37 [facility] Comment on above: Performed By: #### V ITB12 #### [facility] [address] [place] [address] Dr. Jovanna Oneill Bilirubin [Mass/Vol] 0.8 mg/dL Normal 0.2-1.0 [facility] Comment on above: Performed By: #### V ITB12 #### [facility] [address] [place] [address] Dr. Jovanna Oneill Calcium [Mass/Vol] 8.1 mg/dL Critically low 8.5-10.1 [facility] Comment on above: Performed By: #### V ITB12 #### [facility] [address] [place] [address] Dr. Jovanna Oneill Chloride [Moles/Vol] 102 mmol/L Normal 98-107 [facility] Comment on above: Performed By: #### V ITB12 #### [facility] [address] [place] [address] Dr. Jovanna Oneill CO2 [Moles/Vol] 31.1 mmol/L Normal 21.0-32.0 [facility] Comment on above: Performed By: #### V ITB12 #### [facility] [address] [place] [address] Dr. Jovanna Oneill Creatinine [Mass/Vol] 0.78 mg/dL Normal 0.55-1.02 [facility] Comment on above: Performed By: #### V ITB12 #### [facility] [address] [address] [address] Jovanna Oneill EGFR-AF VIETNAMESE >60 Normal >=60 [facility] Comment on above: Performed By: #### V ITB12 #### [facility] [address] [address] [address] Jovanna Oneill EGFR-NON AF VIETNAMESE >60 Normal >=60 [facility] Comment on above: Performed By: #### V ITB12 #### [facility] [address] [place] [address] Dr. Jovanna Oneill Globulin (S) [Mass/Vol] 3.2 g/dL Normal [facility] Comment on above: Performed By: #### V ITB12 #### [facility] [address] [address] [address] Jovanna Oneill Glucose [Mass/Vol] 251 mg/dL Critically high 74-[address] [facility] Comment on above: Performed By: #### V ITB12 #### [facility] [address] [address] [address] Jovanna Oneill Potassium [Moles/Vol] 3.1 mmol/L Critically low 3.5-5.1 [facility] Comment on above: Performed By: #### V ITB12 #### [facility] [address] [address] [address] Jovanna Oneill Protein [Mass/Vol] 6.6 g/dL Normal 6.4-8.2 [facility] Comment on above: Performed By: #### V ITB12 #### [facility] [address] [address] [address] Jovanna Oneill Sodium [Moles/Vol] 140 mmol/L Normal 136-145 [facility] Comment on above: Performed By: #### V ITB12 #### [facility] [address] [address] [address] Jovanna Oneill Urea nitrogen [Mass/Vol] 8.0 mg/dL Normal 7.0-18.0 [facility] Comment on above: Performed By: #### V ITB12 #### [facility] [address] [address] [address] Jovanna Oneill Urea nitrogen/Creatinine [Mass ratio] 10.3 mg/mg Normal [facility] Comment on above: Performed By: #### V ITB12 #### [facility] [address] [address] [address] Jovanna Oneill TROPONIN, HIGH SENSITIVITYon 04-20-2022 HSTROP 13.8 pg/mL Normal 4.0-51.3 [facility] Comment on above: Result Comment: CUT- OFF POINTS HAVE BEEN ESTABLISHED BASED ON THE FOURTH UNIVERSAL DEFINITIONS OF MYOCARDIAL INFARCTION. THE UPPER REFERENCE LIMIT (URL) OF TROPONIN, DEFINED THE 99TH PERCENTILE OF cTnI DISTRIBUTION IN A REFERENCE POPULATION, HAS BEEN CONFIRMED THE DECISION THRESHOLD FOR IN DIAGNOSIS. Performed By: #### V ITB12 #### [facility] [address] [address] [address] Jovanna Oneill URINE MICROSCOPIC ONLYon BACTERIA TRACE Abnormal NONE SEEN [facility] Comment on above: Performed By: #### U MICRO, ERUR, DRUGRPD ####[facility] [id number] [address]DrJhony Oneill Bacteria identified Cx Nom (U) NOT INDICATED Normal [facility] Comment on above: Performed By: #### U MICRO, ERUR, DRUGRPD ####[facility] [id number] [address]Dr. Jovanna Oneill CAST SEEN Abnormal NONE SEEN [facility] Comment on above: Performed By: #### U MICRO, ERUR, DRUGRPD ####[facility] [id number] [address]Dr. Jovanna Oneill Crystals LM Nom (Urine sed) NONE SEEN Normal NONE SEEN [facility] Comment on above: Performed By: #### U MICRO, ERUR, DRUGRPD ####[facility] [id number] [address]Dr. Jovanna Oneill Epithelial cells LM Ql (Urine sed) FEW Abnormal NONE SEEN /RARE [facility] Comment on above: Performed By: #### U MICRO, ERUR, DRUGRPD ####[facility] [id number] [address]Dr. Jovanna Oneill HYALINE CAST FEW Normal [facility] Comment on above: Performed By: #### U MICRO, ERUR, DRUGRPD ####[facility] [id number] [address]. Jovanna Oneill MUCOUS NONE SEEN Normal NONE SEEN [facility] Comment on above: Performed By: #### U MICRO, ERUR, DRUGRPD ####[facility] [id number] [address]Dr. Jovanna Oneill RBC 0-2 Normal 0-2 [facility] Comment on above: Performed By: #### U MICRO, ERUR, DRUGRPD ####[facility] [id number] [address]. Jovanna Oneill WBC 0-2 Abnormal NONE SEEN [facility] Comment on above: Performed By: #### U MICRO, ERUR, DRUGRPD ####[facility] [id number] [id number]. Jovanna Oneill XR CHEST 1 Von 04-20-2022 [...] by: Ayaka LEON Date: 2022-04-20 02:33 Normal [facility] XR ANKLE RT MIN 3 VIEWSon [...] by: KOBE HICKEY Date: 2022-03-26 09:41 Normal [facility] Encounters Encounter Date Encounter Type Care Provider Facility Start: 06-09-2024 End: 06-11-2024 ambulatory [facility] Start: 05-26-2024 ambulatory [facility] Start: 05-26-2024 Encounter for other preprocedural examination [facility] Start: 03-23-2023 End: 03-23-2023 ambulatory ABDULKADIR WALTON . Facility:[facility] Start: 03-05-2023 End: 03-06-2023 ambulatory [...] Facility:[facility] Start: 11-01-2022 ambulatory TATUM SHAMMO Facility:[facility] Start: 10-08-2022 End: 10-08-2022 ambulatory TATUM SHAMMO Facility:[facility] Start: 10-06-2022 ambulatory Woo FALCON Facility :[facility] Start: 10-03-2022 End: 10-04-2022 ambulatory TATUM SHAMMO Facility:[facility] Start: 09-14-2022 Encounter for genera l adult medical examination without abnormal findings TATUM SHAMMO [facility] Start: 09-12-2022 End: 09-13-2022 ambulatory TATUM SHAMMO Facility:[facility] Start: 09-12-2022 End: 09-13-2022 Encounter for general adult medical examination without abnormal findings TATUM SHAMMO Facility:[facility] Start: 08-29-2022 End: 08-30-2022 ambulatory TATUM SHAMMO Facility:[facility] Start: 08-24-2022 End: 08-24-2022 ambulatory TATUM SHAMMO Facility:[facility] Start: 08-16-2022 End: 08-17-2022 ambulatory TATUM SHAMMO Facility:[facility] Start: 08-16-2022 End: 08-17-2022 ambulatory CAROL ANN ALIA Facility:[facility] Start: 06-22-2022 End: 06-22-2022 ambulatory [facility] Facility:[facility] Start: 05-02-2022 End: 05-02-2022 ambulatory [facility] Facility:[facility] Start: 04-20-2022 End: 04-20-2022 ambulatory CAROL ANN ALIA Facility:[facility] Start: 03-26-2022 End: 03-26-2022 ambulatory DARRIN PEREZ . Facility:[facility] Payers Date Payer Category Payer Unknown [id number] 2.16.8 [id number] 1975 Unknown [id number] 2.16.8 40.1.279469.3.579.2.727 1975 Unknown [id number] 2.16.84 0.1.399136.3.579.2.593 1973 Unknown [id number] 2.16.84 0.1.877638.3.579.2.593 1973 Unknown [id number] 2.16.84 0.1.672679.3.579.2.593 1973 Unknown [id number] 2.16.84 0.1.519189.3.579.2.593 1973 Unknown [id number] 2.16.84 0.1.543758.3.579.2.593 1973 Unknown [id number] 2.16.84 0.1.306943.3.579.2.593 1973 Unknown [id number] 2.16.84 0.1.821802.3.579.2.593 1973 Unknown [id number] 2.16.84 0.1.587086.3.579.2.593 1973 Unknown [id number] 2.16.84 0.1.318924.3.579.2.593 1973 Unknown [id number] 2.16.84 0.1.210832.3.579.2.593 1973 Unknown [id number] 2.16.84 0.1.432817.3.579.2.593 1973 Unknown [id number] 2.16.84 0.1.514878.3.579.2.593 1973 Unknown [id number] 2.16.84 0.1.207006.3.579.2.593 1973 Unknown [id number] 2.16.84 0.1.372341.3.579.2.593 1973 Unknown [id number] 2.16.84 0.1.201294.3.579.2.593 1973 Unknown [id number] 2.16.84 0.1.216249.3.579.2.593 1973 Unknown [id number] 2.16.84 0.1.847863.3.579.2.593 1973 Unknown [id number] 2.16.84 0.1.028240.3.579.2.593 1973 Unknown [id number] 2.16.84 0.1.954519.3.579.2.593 1973 Unknown [id number] 2.16.84 0.1.578230.3.579.2.593 1973 Unknown [id number] 2.16.84 0.1.067233.3.579.2.593 1973 Unknown [id number] 2.16.84 0.1.756126.3.579.2.593 1973 Unknown [id number] 2.16.8 40.1.607395.3.579.2.174 1973 Unknown [id number] 2.16.8 40.1.017886.3.579.2.174 1973 Unknown [id number] 2.16.8 40.1.669667.3.579.2.174 1961 Self-pay [id number] 1961 Unknown [id number] 1961 Unknown [id number] Clinical Note 03-05-2023 Note Date & Type [...] by: FRANCES AGUSTIN Date: 2023-03-05 11:36 [facility] Clinical Note 08-30-2022 Note Date & Type [...] by: FRANCES AGUSTIN Date: 2022-08-30 10:20 [facility] Clinical Note 08-30-2022 Note Date & Type [...] by: FRANCES AGUSTIN Date: 2022-08-30 10:20 [facility] Clinical Note 06-22-2022 Note Date & Type [...] by: RJ YANEZ Date: 2022-06-22 07:13 [facility] Clinical Note 06-22-2022 Note Date & Type [...] by: RJ YANEZ Date: 2022-06-22 07:13 [facility] Summary Purpose Family History No Family History Records FoundNo Family History Records FoundNo Family History Records Found Advance Directives No Advanced Directives Records FoundNo Advanced Directives Records FoundNo Advanced Directives Records Found Additional Source Comments INFORMATION SOURCE (unrecogn ized section and content) DATE CREATED AUTHOR 10/24/2022 [facility] DATE CREATED AUTHOR AUTHOR'S ORGANIZ ATION 03/24/2023 [facility] DATE CREATED AUTHOR AUTHOR'S ORGANIZ ATION 06/14/2024 Astrid ruiz FOR RECORDS PERTAINING TO PATIENTS WHO [...] BE BASED ON THE PRIMARY CLINICAL RECORDS. [facility]. provides no warranty or guarantee of the accuracy or completeness of information in this document.
[2024-06-23 21:36] VITALS: BP 169/111; PULSE 80; TEMP 36.9; O2SAT 99; BMI 20.4
--- NOTE | 2024-06-23 23:15 | PC.NURSE ---
patient had surgery approximately 3 weeks ago after sustaining a crush injury to the right index finger The finger has had a cage dressing on it, last re dressed by surgeon 1 week ago She was supposed to follow up today, but surgeon had to reschedule for next Sunday Patient was in too much pain today to wait another week to see surgeon Her medication was switched from Percocet to Gower recently, she states the Gower does not help at all Dressing is removed in patient room in order for Dr. Tripathi to evaluate the surgical site and determine the cause for the increased pain
--- NOTE | 2024-06-23 23:19 | ED.WOUNDLAC1 ---
HPI - Wound/Laceration General Chief Complaint: Wound/Laceration Stated Complaint: post op pain Time Seen by Provider: 06/23/24 21:40 Source: patient Mode of arrival: walk-in History of Present Illness HPI narrative: This 48-year-old female who had surgery on her right index finger presents for evaluation of ongoing postoperative pain. She states she was supposed to have an appointment with her surgeon earlier today but he canceled due to an emergency. She received a prescription for 28 Buena on June 19, 4 days ago, she also received a prescription for 28 Percocet on June 12, she received a prescription for 28 Percocet on 06/05, she received a prescription for 28 Percocet on 05/29, she received a prescription for 28 Percocet on 05/23 and on 05/19, the day of her injury she received a prescription for 20 Buena. She states that despite the Buena she was recently prescribed is not helping her pain and she is having severe pain at the distal end of her finger with burning. She does have a pin in the end of her finger. There is no drainage or notable swelling. It appears to be healing well. Related Data Home Medications ?Medication ?Instructions ?Recorded ?Confirmed levothyroxine 25 mcg capsule 25 mcg PO DAILY 05/28/24 06/08/24 oxycodone-acetaminophen 5 mg-325 1 tab PO Q6H PRN pain 05/28/24 06/08/24 mg tablet sulfamethoxazole 800 1 tab PO BID 05/28/24 06/08/24 mg-trimethoprim 160 mg tablet (Bactrim DS) Previous Rx's ?Medication ?Instructions ?Recorded budesonide-formoterol HFA 80 2 inh inhalation BID #10.2 grams 04/25/24 mcg-4.5 mcg/actuation aerosol inhaler losartan 100 1 tab PO DAILY 30 days #30 tabs 04/25/24 mg-hydrochlorothiazide 25 mg tablet pantoprazole 40 mg tablet,delayed 40 mg PO BID 30 days #60 tabs 04/25/24 release Allergies Allergy/AdvReac Type Severity Reaction Status Date / Time No Known Drug Allergies Allergy Verified 05/28/24 12:53 Review of Systems ROS Status of ROS 10 or more systems reviewed and unremarkable except as noted in history and below [facility] Medical History (Updated 06/23/24 @ 23:26 by Shanta Tripathi MD) Full dentures ?Z97.2 - Presence of dental prosthetic device (complete) (partial) (ICD-10) ?K08.109 - Complete loss of teeth, unspecified cause, unspecified class (ICD-10) Neck pain ?M54.2 - Cervicalgia (ICD-10) Depression ?F32.A - Depression, unspecified (ICD-10) Anxiety ?F41.9 - Anxiety disorder, unspecified (ICD-10) Asthma ?J45.909 - Unspecified asthma, uncomplicated (ICD-10) Chronic obstructive pulmonary disease ?J44.9 - Chronic obstructive pulmonary disease, unspecified (ICD-10) Migraine ?G43.909 - Migraine, unspecified, not intractable, without status migrainosus (ICD-10) Kidney stones ?N20.0 - Calculus of kidney (ICD-10) GERD (gastroesophageal reflux disease) ?K21.9 - Gastro-esophageal reflux disease without esophagitis (ICD-10) Hypothyroidism ?E03.9 - Hypothyroidism, unspecified (ICD-10) Hiatal hernia ?K44.9 - Diaphragmatic hernia without obstruction or gangrene (ICD-10) Colon polyp ?K63.5 - Polyp of colon (ICD-10) Ovarian cyst ?N83.209 - Unspecified ovarian cyst, unspecified side (ICD-10) Endometriosis ?N80.9 - Endometriosis, unspecified (ICD-10) Hypertension ?I10 - Essential (primary) hypertension (ICD-10) Back pain ?M54.9 - Dorsalgia, unspecified (ICD-10) Chronic neck pain ?M54.2 - Cervicalgia (ICD-10) ?G89.29 - Other chronic pain (ICD-10) Open fracture of right hand ?S62.91XB - Unspecified fracture of right wrist and hand, initial encounter for open fracture (ICD-10) Anxiety and depression ?F41.9 - Anxiety disorder, unspecified (ICD-10) ?F32.A - Depression, unspecified (ICD-10) HTN (hypertension) ?I10 - Essential (primary) hypertension (ICD-10) Bulging of cervical intervertebral disc ?M50.30 - Other cervical disc degeneration, unspecified cervical region (ICD-10) Osteoporosis ?M81.0 - Age-related osteoporosis without current pathological fracture (ICD-10) Surgical History (Updated 05/28/24 @ 13:04 by Monique Benson NP) History of tonsillectomy ?Z90.89 - Acquired absence of other organs (ICD-10) History of colonoscopy ?Z98.890 - Other specified postprocedural states (ICD-10) History of esophagogastroduodenoscopy (EGD) ?Z98.890 - Other specified postprocedural states (ICD-10) History of laparoscopy ?Z98.890 - Other specified postprocedural states (ICD-10) History of appendectomy ?Z90.49 - Acquired absence of other specified parts of digestive tract (ICD-10) History of hysterectomy ?Z90.710 - Acquired absence of both cervix and uterus (ICD-10) History of cholecystectomy ?Z90.49 - Acquired absence of other specified parts of digestive tract (ICD-10) Family History (Updated 05/28/24 @ 13:04 by Monique Benson NP) Other Brain tumor Cancer Family history of aneurysm Family history of diabetes mellitus Family history of hypertension Social History (Updated 05/28/24 @ 12:57 by Monique Benson NP) Within the past year, how often did you have a drink containing alcohol: never Score interpretation: A score less than 3 is consistent with normal alcohol consumption. Smoking status: Current every day smoker What tobacco products do you use: cigarettes Cigarettes per day: 30 Years smoked: 36 Smoking pack-years: 54.00 Non-prescribed substance use: cannabis (any form) Highest level of school completed/degree received: 11th grade Exam Narrative Exam Narrative: Vital signs and Nursing Notes reviewed: Patient is afebrile with a normal pulse, blood pressure is elevated at 169/111, she is not hypoxic with pulse ox of 99 percent on room air General: Awake, alert, oriented, no apparent distress noted until I walked in the room when she started crying and writhing HEENT: Normocephalic atraumatic, mucous membranes are moist and pink, eyes are clear, normal conjunctiva, vision is grossly intact Chest: Lungs are clear to auscultation with good air entry, there is no wheezing rhonchi or rales appreciated no accessory muscle use, patient is speaking in complete sentences-no chest wall tenderness to palpation CVS: Regular rate and rhythm S1-S2, no murmurs rubs or gallops, pulses are brisk and equal bilaterally Extremities: There is a yellow pin sticking out of the distal end of the right index finger. The surgical site appears to be well-healing. There is no redness, drainage, swelling or other notable signs of infection Skin: Normal in appearance without rash,pallor, petechiae or purpura Neuro: No focal deficits Constitutional Vital Signs, click to edit/add: Last Vital Signs Temp 98.4 F 06/23/24 21:36 Pulse 80 06/23/24 21:36 Resp 18 06/23/24 21:36 BP 169/111 H 06/23/24 21:36 Pulse Ox 99 06/23/24 21:36 O2 Del Method Room Air 06/23/24 21:36 Course Vital Signs Vital signs: Vital Signs Temperature 98.4 F 06/23/24 21:36 Pulse Rate 80 06/23/24 21:36 Respiratory Rate 18 06/23/24 21:36 Blood Pressure 169/111 H 06/23/24 21:36 Pulse Oximetry 99 06/23/24 21:36 Oxygen Delivery Method Room Air 06/23/24 21:36 Temperature 98.4 F 06/23/24 21:36 Pulse Rate 80 06/23/24 21:36 Respiratory Rate 18 06/23/24 21:36 Blood Pressure 169/111 H 06/23/24 21:36 Pulse Oximetry 99 06/23/24 21:36 Oxygen Delivery Method Room Air 06/23/24 21:36 MDM - Wound/Laceration MDM Narrative Medical decision making narrative: This patient who is 2 weeks postop after having an open fracture of the right index finger presents for evaluation of ongoing postop pain. She has had prescriptions for Percocet and Buena ongoing since her injury. She had surgical repair and was supposed to be seen in follow-up yesterday but states the surgeon canceled because of an emergency. Her surgical site appears to be healing well. She states she cannot stand the pain and cannot sleep. She requests something for pain. I offered her a digital block which she refused stating that she will not except that but she would like a shot for pain. She was given a dose of Toradol and morphine in the emergency department. I encouraged her to be very careful because at this point she could become easily addicted to his narcotic analgesics. She verbalizes understanding of this. She assures me that she is not driving because she cannot drive since her surgery and her father is waiting for her in the parking lot. Discharge Plan Discharge Stand Alone Forms: Portal Instructions Chief Complaint: Wound/Laceration Clinical Impression: Post-operative pain Patient Disposition: Home, Self-Care Time of Disposition Decision: 23:26 Condition: Good Prescriptions / Home Meds: No Action budesonide-formoterol 80-4.5 mcg/actuation HFA aerosol inhaler 2 inh inhalation BID Qty: 10.2 0RF losartan-hydrochlorothiazide 100-25 mg tablet 1 tab PO DAILY 30 Days Qty: 30 0RF pantoprazole 40 mg tablet,delayed release (DR/EC) 40 mg PO BID 30 Days Qty: 60 0RF oxycodone-acetaminophen 5-325 mg tablet 1 tab PO Q6H PRN (Reason: pain) sulfamethoxazole-trimethoprim [Bactrim DS] 800-160 mg tablet 1 tab PO BID levothyroxine 25 mcg capsule 25 mcg PO DAILY Print Language: Egyptian Instructions: Narcotic Safety (ED), Pain Management After Surgery (DC) Referrals: Physician,Non-Staff, MD [Primary Care Provider] - 1 week
[2024-06-23] MEDS: MORPHINE SULFATE 4 MG/ML VIAL IM (23:57)
[2024-06-23] MEDS: KETOROLAC TROMETHAMINE 30 MG/ML VIAL IM (23:58)
== END 2024-06-24 00:20 | disposition home or self-care (01) ==
PROVIDERS: Emergency Provider Emergency Medicine
DX: G89.18 Other acute postprocedural pain (principal); M79.644 Pain in right finger(s); F17.210 Nicotine dependence, cigarettes, uncomplicated
CPT/HCPCS: 96372; 99284; J1885; J2270

== ENCOUNTER 2024-07-08 13:26 | Outpatient (OUT) | payer OTHER, SELFPAY ==
[2024-07-08 13:50] LABS: Basophils Percent Auto 0.3 % (0.2-2.0); Eosinophils Percent Auto 0.4 % (0.9-7.0); Hematocrit 38.1 % (36.0-48.0); Hemoglobin 12.8 g/dL (12.0-16.0); Immature Granulocytes Abs Auto 0.02 10^3/uL (0.00-0.03); Immature Granulocytes Pct Auto 0.3 % (0.0-0.5); Lymphocytes Absolute Auto 2.6 10^3/uL (1.2-3.8); Lymphocytes Percent Auto 35.7 % (20.5-60.0); Mean Corpuscular HGB Conc 33.6 g/dL (29.9-35.2); Mean Corpuscular Hemoglobin 32.4 pg (26.7-34.0); Mean Corpuscular Volume 96.5 fL (81.0-99.0); Mean Platelet Volume 10.4 fL (9.5-13.5); Monocytes Absolute Auto 0.4 10^3/uL (0.3-0.8); Monocytes Percent Auto 6.1 % (1.7-12.0); Neutrophils Absolute Auto 4.1 10^3/uL (1.4-6.5); Neutrophils Percent Auto 57.2 % (43.0-75.0); Platelet Count 194 10^3/uL (150-450); Red Blood Count 3.95 10^6/uL (4.20-5.40); Red Cell Distribution Width 12.4 % (11.0-15.0); White Blood Count 7.2 10^3/uL (4.0-11.0)
--- NOTE | 2024-07-08 13:52 | XR_ITS ---
The [address] [address] Patient Name: SULY THORNE MRN: [id number] date: 1975 Sex: F Assigned Patient Location: LAB Current Patient Location: LAB Accession/Order Number: [id number] Exam Date: 07/08/2024 13:55 Report Date: 07/08/2024 14:23 At the request of: SANTO LOPEZ Procedure: XR chest 2V PROCEDURE: XR chest 2V DATE: 07/08/2024 12:55 PM CDT COMPARISONS: 05/28/2024 CLINICAL INDICATION: 48 years Female Post Operative Wound Infection, Preoperative Respiratory Howie FINDINGS: The cardiomediastinal silhouette and pulmonary vasculature are within normal limits. The lungs are clear. There is no evidence of pleural effusion or pneumothorax. XR/XR chest 2V IMPRESSION: Chest radiograph is within normal limits. Electronically authenticated by: MALCOLM BOOTH Date: 07/08/2024 14:23
[2024-07-08 14:23] LABS: Anion Gap 8.8; BUN Creatinine Ratio 4.2; Carbon Dioxide 32.8 mmol/L (21.0-32.0); Estimated GFR (African America >60 (>=60); Estimated GFR (Non-African Ame >60 (>=60); Glucose 117 mg/dL (74-106)
[2024-07-08 14:32] LABS: Chloride 100 mmol/L (98-107); Sodium 139 mmol/L (136-145)
[2024-07-08 14:47] LABS: Potassium 2.6 mmol/L (3.5-5.1)
== END 2024-07-08 13:27 | disposition home or self-care (01) ==
LOC: LAB 13:29
PROVIDERS: Visit Provider Student in an Organized Health Care Education/Training Program
DX: Z01.812 Encounter for preprocedural laboratory examination (principal); Z01.811 Encounter for preprocedural respiratory examination; T81.49XA Infection following a procedure, other surgical site, initial encounter
CPT/HCPCS: 36415; 71046; 80048; 85025

== ENCOUNTER 2024-07-18 21:13 | Emergency (ER) | payer OTHER, SELFPAY ==
[2024-07-18 21:19] VITALS: BP 128/95; PULSE 80; TEMP 36.9; O2SAT 96; BMI 20.8
--- OUTSIDE RECORDS SUMMARY | 2024-07-18 21:20 | XMS_ITS | CCD ---
Author Organization [facility] Care Team Providers Care Mouse Breeder Name Role Phone Woo FALCON Attending Unavailable [...] Consulting Unavailable EDWARD, JIMMY Consulting Unavailable SANTO RECINOS Referring Unavailable SANTO RECINOS Admitting Unavailable SANTO RECINOS Attending Unavailable SANTO RECINOS Referring Unavailable RECINOSSANTO Referring Unavailable RECINOS, SANTO J Referring Unavailable Vikram Mckenna MD Attending Unavailable Vikram Mckenna MD Admitting Unavailable Unavailable, Physician Primary Care Unavailab Santo Ferro DO Consulting Unavailabl e Allergies Allergy Classification Reported Allergen(s) Allergy Type Date of Onset Reaction(s) Facility (2 sources) No Known Medication Allergies; Translations: [No Known Medication Allergies] Propensity to adverse reactions (disorder) [facility] Repository Problems Active Problems Problem Classification [...] Onset: 02-26-2023 Chronic Fracture of upper limb (4 sources) Displaced fracture of distal phalanx of right index finger, initial encounter for open fracture; Translations: [Displaced fracture of distal phalanx of right index finger, sequela] Onset: 06-09-2024 Episodic Menopausal disorders (1 source) [...] 01-15-2023 Chronic Other aftercare (1 source) Other jail (current) drug therapy; Translations: [OTH USP CURRENT DRUG THERAPY] Onset: 02-26-2023 Episodic Other [...] UNSPECIFIED; Translations: [LOW BACK PAIN, UNSPECIFIED] Onset: 10-07-2022 Viral infection (1 source) COVID-19; Translations: [COVID-19] [...] Test Name Value Interpretation Reference Range Facility Robb Daniels 07-13-2024 Robb LIU - ---- Final No anaerobic growth after 72 hrs. [facility] Comment on above: Performed By: #### A NAC #### [address] [address] Robb LIU - ---- Final No anaerobic growth after 72 hrs. Normal [facility] Comment on above: Performed By: #### S [facility] #### [facility] (DEFAULT) [address] [place] [address], [place] [address] [place] [address] C NOE - ---- Final No anaerobic growth after 72 hrs. Normal [facility] Comment on above: Performed By: #### A NAC #### [facility] [address] [facility] [address] C NOE - ---- Final No anaerobic growth after 72 hrs. Normal [facility] Comment on above: Performed By: #### S BSC #### [facility] (DEFAULT) [address] [facility] [address] [facility] [address] [facility] [address] C Sterile BSon 07-12-2024 C Sterile BS - ---- Final Light Growth of Klebsiella oxytoca isolated . and Moderate Growth of Methicillin-Sensitive Staph aureus isolated Refer to previous culture for susceptibility. ORGANISM Kleoxy MSSA ---- Gram Stain No organisms seen. ---- SUSCEPTIBILITY --- ORGANISM ID: 1 ANTIBIOTIC INTERPRETATION ROBERT STATUS POS Klebsiella oxytoca Ampicillin/Sulbactam I 16 V Ampicillin R >=32 V Cefazolin R >=32 V Cefepime S <=0.12 V Ceftazidime S <=0.5 V Ceftriaxone S <=0.25 V Ciprofloxacin S <=0.06 V Gentamicin S <=1 V Levofloxacin S <=0.12 V Meropenem S <=0.25 V Trimethoprim/Sulfa S <=20 V Normal [facility] Comment on above: Performed By: #### S [facility] #### [facility] (DEFAULT) [address] [facility] [address] [facility] [address] [place] [address] C Sterile BS - ---- Final Light Growth of Staphylococcus aureus isolated . and Scant Growth of Klebsiella oxytoca isolated ORGANISM Kleoxy SA ---- Gram Stain No organisms seen. ---- SUSCEPTIBILITY --- ORGANISM ID: 1 ANTIBIOTIC INTERPRETATION ROBERT STATUS POS Klebsiella oxytoca Ampicillin/Sulbactam I 16 V Ampicillin R >=32 V Cefazolin R >=32 V Cefepime S <=0.12 V Ceftazidime S <=0.5 V Ceftriaxone S <=0.25 V Ciprofloxacin S <=0.06 V Gentamicin S <=1 V Levofloxacin S <=0.12 V Meropenem S <=0.25 V Trimethoprim/Sulfa S <=20 V ---- SUSCEPTIBILITY --- ORGANISM ID: 2 ANTIBIOTIC INTERPRETATION ROBERT STATUS POS Staphylococcus aureus Clindamycin S 0.25 V Daptomycin S 0.5 V Doxycycline S <=0.5 V Erythromycin S <=0.25 V Linezolid S 2 V Levofloxacin S <=0.12 V Moxifloxacin S <=0.25 V Oxacillin S 0.5 V Tetracycline S <=1 V Trimethoprim/Sulfa S <=10 V Vancomycin S 1 V Normal [facility] Comment on above: Performed By: #### S [facility] #### [facility] (DEFAULT) [address] [facility] [address] [facility] [address] [facility] [address] C Sterile BS - ---- Final Moderate Growth of Klebsiella oxytoca isolated . and Moderate Growth of Staphylococcus aureus isolated ORGANISM Kleoxy SA ---- Gram Stain No organisms seen. Rare epithelial cells ---- SUSCEPTIBILITY --- ORGANISM ID: 1 ANTIBIOTIC INTERPRETATION ROBERT STATUS POS Klebsiella oxytoca Ampicillin/Sulbactam S 8 V Ampicillin R >=32 V Cefazolin R >=32 V Cefepime S <=0.12 V Ceftazidime S <=0.5 V Ceftriaxone S <=0.25 V Ciprofloxacin S <=0.06 V Gentamicin S <=1 V Levofloxacin S <=0.12 V Meropenem S <=0.25 V Trimethoprim/Sulfa S <=20 V ---- SUSCEPTIBILITY --- ORGANISM ID: 2 ANTIBIOTIC INTERPRETATION ROBERT STATUS POS Staphylococcus aureus Clindamycin S 0.25 V Daptomycin S 0.5 V Doxycycline S <=0.5 V Erythromycin S <=0.25 V Linezolid S 2 V Levofloxacin S <=0.12 V Moxifloxacin S <=0.25 V Oxacillin S 0.5 V Tetracycline S <=1 V Trimethoprim/Sulfa S <=10 V Vancomycin S 1 V Normal [facility] Comment on above: Performed By: #### S BS #### [facility] (DEFAULT) [address] [place] [address] C Sterile BS - ---- Final Moderate Growth of Staphylococcus aureus isolated ORGANISM SA ---- Gram Stain No organisms seen. Rare epithelial cells ---- SUSCEPTIBILITY --- ORGANISM ID: 1 ANTIBIOTIC INTERPRETATION ROBERT STATUS POS Staphylococcus aureus Clindamycin S 0.25 V Daptomycin S 0.5 V Doxycycline S <=0.5 V Erythromycin S <=0.25 V Linezolid S 2 V Levofloxacin S <=0.12 V Moxifloxacin S <=0.25 V Oxacillin S <=0.25 V Tetracycline S <=1 V Trimethoprim/Sulfa S <=10 V Vancomycin S 1 V Normal [facility] Comment on above: Performed By: #### S BSC #### [facility] (DEFAULT) [address] [place] [address] .eGFR 07-11-2024 GFR/1.73 sq M.predicted MDRD (S/P/Bld) [Vol rate/Area] mL/min/{1.73_m2} Normal >=60 [facility] Comment on above: Result Comment: [facility] have implemented the eGFR calculation approach that does not have a coefficient for race and that conforms to the NKF-ASN Task Force Recommendations. Stages of Chronic Kidney Disease GFR Stage 3a Mild to moderate loss of kidney function 59 to 45 Stage 3b Moderate to severe loss of kidney function 44 to 33 Stage 4 Severe loss of kidney function 29 to 15 Stage 5 Kidney failure Less than 15 GFR calculated using the CKD-Epi Creatinine Equation (2020): eGFR = 142 X min(SCr/?, 1)? X max(SCr /?, 1)-1.200 X 0.9938Age X 1.012 [if female] Abbreviations/Units: eGFR (estimated glomerular filtration rate) = mL/min/1.73 m2 SCr (standardized serum creatinine) = mg/dL ? = 0.7 (females) or 0.9 (males) ? = -0.241 (females) or -0.302 (males) min = indicates the minimum of SCr/? or 1 max = indicates the maximum of SCr/? or 1 Age = years Performed By: #### A NAC #### [facility] [address] [place] [address] CBC w/ Diffon 07-11-2024 Erythrocyte distribution width (RBC) [Ratio] 13.4 % Normal 11.6-14.8 [facility] Comment on above: Performed By: #### S BSC #### [facility] (DEFAULT) [address] [place] [address] [id number] [place] [address] Hematocrit (Bld) [Volume fraction] 37.5 % Normal 36.0-46.0 [facility] Comment on above: Performed By: #### S BSC #### [facility] (DEFAULT) [address] [place] [address] [facility] [address] [place] [address] Hemoglobin (Bld) [Mass/Vol] 12.6 g/dL Normal 12.0-16.0 [facility] Comment on above: Performed By: #### S BSC #### [facility] (DEFAULT) [address] [facility] [address] [facility] [address] [facility] [address] MCH (RBC) [Entitic mass] 32.5 pg Normal 27.0-35.0 [facility] Comment on above: Performed By: #### S BSC #### [facility] (DEFAULT) [address] [facility] [address] [facility] [address] [facility] [address] MCHC 33.7 % Normal 31.0-37.0 [facility] Comment on above: Performed By: #### S BSC #### [facility] (DEFAULT) [address] [facility] [address] [facility] [address] [facility] [address] MCV (RBC) [Entitic vol] 96.6 fL Normal 80.0-100.0 [facility] Comment on above: Performed By: #### S BSC #### [facility] (DEFAULT) [address] [facility] [address] [facility] [address] [facility] [address] Platelet 172 x10*3/mcL Normal 150-450 [facility] Comment on above: Performed By: #### S BSC #### [facility] (DEFAULT) [address] [facility] [address] [facility] [address] [facility] [address] Platelet mean volume (Bld) [Entitic vol] 9.3 fL Normal 6.7-10.6 [facility] Comment on above: Performed By: #### S BSC #### [facility] (DEFAULT) [address] [facility] [address] [facility] [address] [facility] [address] RBC 3.88 x10*6/mcL Normal 3.80-5.20 [facility] Comment on above: Performed By: #### S BSC #### [facility] (DEFAULT) [address] [facility] [address] [facility] [address] [facility] [address] WBC 8.8 x10*3/mcL Normal 4.5-11.0 [facility] Comment on above: Performed By: #### S BSC #### [facility] (DEFAULT) [address] [facility] [address] [facility] [address] [facility] [address] CMPon 07-11-2024 Albumin [Mass/Vol] 3.5 g/dL Normal 3.2-4.9 [facility] Comment on above: Performed By: #### S BSC #### [facility] (DEFAULT) [address] [facility] [address] [facility] [address] [facility] [address] Albumin/Globulin [Mass ratio] 1.5 {ratio} Normal 1.1-2.2 [facility] Comment on above: Performed By: #### S BSC #### [facility] (DEFAULT) [address] [facility] [address] [facility] [address] [facility] [address] Alk Phos 66 IU/L Normal 32-91 [facility] Comment on above: Performed By: #### S BSC #### [facility] (DEFAULT) [address] [facility] [address] [facility] [address] [facility] [address] ALT [Catalytic activity/Vol] 11 U/L Low 14-54 [facility] Comment on above: Performed By: #### S BSC #### [facility] (DEFAULT) [address] [facility] [address] [facility] [address] [facility] [address] Anion gap [Moles/Vol] 7 mmol/L Normal 4-12 [facility] Comment on above: Performed By: #### S BSC #### [facility] (DEFAULT) [address] [facility] [address] [facility] [address] [facility] [address] AST [Catalytic activity/Vol] 16 U/L Normal 15-41 [facility] Comment on above: Performed By: #### S BSC #### [facility] (DEFAULT) [address] [facility] [address] [facility] [address] [facility] [address] Bili Total 1.3 mg/dL High 0.3-1.2 [facility] Comment on above: Performed By: #### S BSC #### [facility] (DEFAULT) [address] [facility] [address] [facility] [address] [facility] [address] Calcium [Mass/Vol] 8.4 mg/dL Low 8.5-10.3 [facility] Comment on above: Performed By: #### S BSC #### [facility] (DEFAULT) [address] [facility] [address] [facility] [address] [facility] [address] Chloride [Moles/Vol] 103 mmol/L Normal 98-110 [facility] Comment on above: Performed By: #### S BSC #### [facility] (DEFAULT) [address] [facility] [address] [facility] [address] [facility] [address] CO2 [Moles/Vol] 28 mmol/L Normal 22-32 [facility] Comment on above: Performed By: #### S BSC #### [facility] (DEFAULT) [address] [facility] [address] [facility] [address] [facility] [address] Creatinine [Mass/Vol] 0.63 mg/dL Normal 0.44-1.03 [facility] Comment on above: Performed By: #### S BSC #### [facility] (DEFAULT) [address] [facility] [address] [facility] [address] [facility] [address] Glucose [Mass/Vol] 103 mg/dL High 70-99 [facility] Comment on above: Performed By: #### S BSC #### [facility] (DEFAULT) [address] [facility] [address] [facility] [address] [facility] [address] Potassium [Moles/Vol] 2.9 mmol/L Low 3.4-4.8 [facility] Comment on above: Performed By: #### S BSC #### [facility] (DEFAULT) [address] [facility] [address] [facility] [address] [facility] [address] Protein [Mass/Vol] 5.9 g/dL Low 6.5-8.1 [facility] Comment on above: Performed By: #### S BSC #### [facility] (DEFAULT) [address] [facility] [address] [facility] [address] [facility] [address] Sodium [Moles/Vol] 138 mmol/L Normal 133-142 [facility] Comment on above: Performed By: #### S BSC #### [facility] (DEFAULT) [address] [facility] [address] [facility] [address] [facility] [address] Urea nitrogen [Mass/Vol] 7 mg/dL Low 8-26 [facility] Comment on above: Performed By: #### S BSC #### [facility] (DEFAULT) [address] [facility] [address] [facility] [address] [facility] [address] Urea nitrogen/Creatinine [Mass ratio] 11.1 mg/mg Normal 10.0-20.0 [facility] Comment on above: Performed By: #### S BSC #### [facility] (DEFAULT) [address] [facility] [address] [facility] [address] [facility] [address] Dietary Consultationon 07-11 Dietary Consultation Consult for low BMI . Pt is a 48 year old female with PMHx of COPD, HTN, hypothyroidism. 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 Surgical wound to right index finger. Localized edema present. Last BM 07/09. Meds reviewed: metoprolol, zosyn. Labs reviewed: K 2.9 (L) - replaced, Glu 103 (H), BUN 7 (L), ALT 11 (L), Ca 8.4 (L). CBW 49.5 kg. Different heights listed in EMR - pt verifies height of 154.94 kg. BMI 20.61 which is wnl. Ordered cardiac diet. Fair appetite reported. Spoke with pt today who reports eating 2 meals and snacks [employer]. Reports UBW of 108# since losing weight about 3-4 years ago which algins with weight on admit. Reports she is discharging after potassium infusion. Will continue to follow along appropriately. Electronically signed by Mehnaz Moran RD 07/11/24 15:56 EDT Normal [facility] Diff Autoon 07-11-2024 Baso Absolute 0.0 x10*3/mcL Normal 0.0-0.2 [facility] Comment on above: Performed By: #### A NAC #### [facility] [address] [place] [address] Basophils/100 WBC (Bld) 0.5 % Normal 0.0-1.5 [facility] Comment on above: Performed By: #### A NAC #### [facility] [address] [place] [address] Eos Absolute 0.0 x10*3/mcL Normal 0.0-0.4 [facility] Comment on above: Performed By: #### A NAC #### [address] [address] Eosinophils/100 WBC (Bld) 0.3 % Normal 0.0-5.4 [facility] Comment on above: Performed By: #### A NAC #### [address] [address] Lymph Absolute 2.1 x10*3/mcL Normal 1.0-4.8 [facility] Comment on above: Performed By: #### A NAC #### [address] [address] Lymphocytes/100 WBC (Bld) 24.0 % Low 27.2-40.8 [facility] Comment on above: Performed By: #### A NAC #### [place] [id number] [place] Absolute 0.5 x10*3/mcL Normal 0.1-1.1 [facility] Comment on above: Performed By: #### A NAC #### [address] [address] Monocytes/100 WBC (Bld) 6.1 % Normal 3.7-11.9 [facility] Comment on above: Performed By: #### A NAC #### [place] [id number] Neutro Absolute 6.1 x10*3/mcL Normal 1.8-7.7 [facility] Comment on above: Performed By: #### A NAC #### [place] [id number] Neutro Auto 69.1 % Normal 47.2-70.8 [facility] Comment on above: Performed By: #### A NAC #### [address] [address] Inpatient Clinical Summary 07-11-2024 Inpatient Clinical Summary [address] [address] [place] [address] Clinical Summary Person Information Name: Kati Thorne Age: 48 Years : 1975 Sex: Female PCP: Unavailable, Physician Marital Status: Phone: PCP: Race: White Ethnicity: Not or Language: [place] Visit Id: Visit Reason: Speciality: Acuity: Enc Type: Observation Med Service: Surgery Arrival: 07/10/2024 11:21:35 Discharge: Dispo Type: Address: [address] [place] [address] [address] [place] [id number] Diagnosis: Discharged To: Home Treatments: Devices/Equipment: Professional Skilled Services: Special Services and Community Resources: Mode of Discharge Transportation: Discharge Orders Discharge Special Instructions orthotics prosthetics technician will contact you tomorrow regarding pain medication refill. Discharge Special Instructions Patient will be nonweightbearing to the extremity. She will maintain her dressing till follow-up appointment. Continue antibiotics follow-up with cultures. Follow up 07/11/24 11:29:00 EDT, Provider: Santo Recinos DO, 1 week Follow up 07/11/24 11:29:00 EDT, 1 week, PCP Allergies No Known Medication Allergies No Known Allergies Functional Status: Sensory Deficits: Hearing deficit, right ear History of Falls: Mobility Assistance Prior to Admission: ADLs: Independent Gait: Steady Ambulation Assist: Assistive Device: Gait belt Special Orthopedic Devices: Current Level of Assistance for Self-Care/Mobility: Cognitive Status: Orientation: Orientation Assessment Oriented x 4 Level of Consciousness: Alert Characteristics of Speech: Clear Aspiration Risk: None Affect/Behavior: Cooperative, Anxious Laboratory or Other Results This Visit (last charted value for your 07/10/2024 visit) Hematology 07/11/2024 5:16 AM WBC: 8.8 x10 RBC: 3.88 x10 Neutro Auto: 69.1 % -- Normal range between ( 47.2 and 70.8 ) Lymph Auto: 24.0 % -- Normal range between ( 27.2 and 40.8 ) [place] Auto: 6.1 % -- Normal range between ( 3.7 and 11.9 ) Eos Auto: 0.3 % -- Normal range between ( 0.0 and 5.4 ) Basophil Auto: 0.5 % -- Normal range between ( 0.0 and 1.5 ) Baso Absolute: 0.0 x10 MCV: 96.6 fL -- Normal range between ( 80.0 and 100.0 ) MCHC: 33.7 % -- Normal range between ( 31.0 and 37.0 ) Lymph Absolute: 2.1 x10 Hct: 37.5 % -- Normal range between ( 36.0 and 46.0 ) [place] Absolute: 0.5 x10 MCH: 32.5 pg -- Normal range between ( 27.0 and 35.0 ) Neutro Absolute: 6.1 x10 Hgb: 12.6 g/dL -- Normal range between ( 12.0 and 16.0 ) Mean Platelet Volume: 9.3 fL -- Normal range between ( 6.7 and 10.6 ) Platelet: 172 x10 Eos Absolute: 0.0 x10 RDW: 13.4 % -- Normal range between ( 11.6 and 14.8 ) Chemistry 07/11/2024 5:16 AM Creatinine Lvl: 0.63 mg/dL -- Normal range between ( 0.44 and 1.03 ) BUN: 7 mg/dL -- Normal range between ( 8 and 26 ) Glucose Lvl: 103 mg/dL -- Normal range between ( 70 and 99 ) Potassium Lvl: 2.9 mmol/L -- Normal range between ( 3.4 and 4.8 ) AST: 16 IU/L -- Normal range between ( 15 and 41 ) ALT: 11 IU/L -- Normal range between ( 14 and 54 ) Sodium Lvl: 138 mmol/L -- Normal range between ( 133 and 142 ) Calcium Lvl: 8.4 mg/dL -- Normal range between ( 8.5 and 10.3 ) Albumin Lvl: 3.5 g/dL -- Normal range between ( 3.2 and 4.9 ) Total Protein: 5.9 g/dL -- Normal range between ( 6.5 and 8.1 ) Bili Total: 1.3 mg/dL -- Normal range between ( 0.3 and 1.2 ) Alk Phos: 66 IU/L -- Normal range between ( 32 and 91 ) Chloride: 103 mmol/L -- Normal range between ( 98 and 110 ) CO2: 28 mmol/L -- Normal range between ( 22 and 32 ) Anion Gap: 7 -- Normal range between ( 4 and 12 ) Estimated GFR: >60 mL/min/1.73m? BUN Crea Ratio: 11.1 -- Normal range between ( 10.0 and 20.0 ) AG Ratio: 1.5 -- Normal range between ( 1.1 and 2.2 ) 07/10/2024 7:46 PM Magnesium Lvl: 1.8 mg/dL -- Normal range between ( 1.7 and 2.4 ) 07/10/2024 12:08 PM Urine Preg: Negative Microbiology 07/10/2024 6:54 PM Gram Stain: Gram Stain Diagnostic Radiology 07/10/2024 3:02 PM XR Finger 2nd Digit Right: XR Finger 2nd Digit Right Measurements: Height: Weight: Blood Pressure: 155 mmHg / BMI: Respiratory: Respirations: Unlabored, Quiet Respiratory Symptoms: None Cardiovascular: Heart Sounds: Heart Rhythm: Regular Gastrointestinal: GI Symptoms: Bowel Sounds: Present Vital Signs: Temp Axillary: Temp Temporal Artery: 37 degC Temp Oral: 36.9 degC Temp Rectal: Apical Heart Rate: Peripheral Pulse Rate: 56 bpm Heart Rate: 72 bpm Respiratory Rate: 18 br/min Diet Diet: Feeding Tolerance: Appetite: Fair Melecio Assessment: 22 Procedures Tonsillectomy History of laparoscopy Colonoscopy Hysterectomy Appendectomy Cholecystectomy PIN FINGER FRACTURE EACH (06/02/2024) Immunizations No Immunizations Doc (more content not included)... Normal [facility] [facility] Potassiumon 07-11-2024 Potassium [Moles/Vol] 4.0 mmol/L Normal 3.4-4.8 [facility] Comment on above: Performed By: #### A NAC #### [place] [address] Progress Note-Nurseon 2023 Progress Note-Nurse Discharge instructions reviewed with pt and pt verbalizes understanding. Pt taken per wheelchair to private vehicle accompanied by tech. Electronically signed by Marysol Lopes 07/11/24 17:03 EDT Normal [facility] .eGFRon 07-10-2024 GFR/1.73 sq M.predicted MDRD (S/P/Bld) [Vol rate/Area] mL/min/{1.73_m2} Normal >=60 [facility] Comment on above: Result Comment: [facility] have implemented the eGFR calculation approach that does not have a coefficient for race and that conforms to the NKF-ASN Task Force Recommendations. Stages of Chronic Kidney Disease GFR Stage 3a Mild to moderate loss of kidney function 59 to 45 Stage 3b Moderate to severe loss of kidney function 44 to 33 Stage 4 Severe loss of kidney function 29 to 15 Stage 5 Kidney failure Less than 15 GFR calculated using the CKD-Epi Creatinine Equation (2020): eGFR = 142 X min(SCr/?, 1)? X max(SCr /?, 1)-1.200 X 0.9938Age X 1.012 [if female] Abbreviations/Units: eGFR (estimated glomerular filtration rate) = mL/min/1.73 m2 SCr (standardized serum creatinine) = mg/dL ? = 0.7 (females) or 0.9 (males) ? = -0.241 (females) or -0.302 (males) min = indicates the minimum of SCr/? or 1 max = indicates the maximum of SCr/? or 1 Age = years Performed By: #### A NAC #### [place] [id number] CBC w/ Diffon 07-10-2024 Erythrocyte distribution width (RBC) [Ratio] 13.5 % Normal 11.6-14.8 [facility] Comment on above: Performed By: #### A NAC #### [place] [id number] Hematocrit (Bld) [Volume fraction] 39.9 % Normal 36.0-46.0 [facility] Comment on above: Performed By: #### A NAC #### [place] [id number] Hemoglobin (Bld) [Mass/Vol] 13.3 g/dL Normal 12.0-16.0 [facility] Comment on above: Performed By: #### A NAC #### [address] [address] MCH (RBC) [Entitic mass] 32.2 pg Normal 27.0-35.0 [facility] Comment on above: Performed By: #### A NAC #### [address] [address] MCHC 33.4 % Normal 31.0-37.0 [facility] Comment on above: Performed By: #### A NAC #### [address] [address] MCV (RBC) [Entitic vol] 96.6 fL Normal 80.0-100.0 [facility] Comment on above: Performed By: #### A NAC #### [place] [id number] Platelet 182 x10*3/mcL Normal 150-450 [facility] Comment on above: Performed By: #### A NAC #### [place] [id number] Platelet mean volume (Bld) [Entitic vol] 8.9 fL Normal 6.7-10.6 [facility] Comment on above: Performed By: #### A NAC #### [place] [id number] RBC 4.13 x10*6/mcL Normal 3.80-5.20 [facility] Comment on above: Performed By: #### A NAC #### [place] [id number] WBC 10.2 x10*3/mcL Normal 4.5-11.0 [facility] Comment on above: Performed By: #### A NAC #### [place] [address] CMPon 07-10-2024 Albumin [Mass/Vol] 3.8 g/dL Normal 3.2-4.9 [facility] Comment on above: Performed By: #### A NAC #### [place] [id number] Albumin/Globulin [Mass ratio] 1.4 {ratio} Normal 1.1-2.2 [facility] Comment on above: Performed By: #### A NAC #### [place] [id number] Alk Phos 75 IU/L Normal 32-91 [facility] Comment on above: Performed By: #### A NAC #### [place] [id number] ALT [Catalytic activity/Vol] 13 U/L Low 14-54 [facility] Comment on above: Performed By: #### A NAC #### [address] [address] Anion gap [Moles/Vol] 10 mmol/L Normal 4-12 [facility] Comment on above: Performed By: #### A NAC #### [address] [address] AST [Catalytic activity/Vol] 17 U/L Normal 15-41 [facility] Comment on above: Performed By: #### A NAC #### [address] [address] Bili Total 0.9 mg/dL Normal 0.3-1.2 [facility] Comment on above: Performed By: #### A NAC #### [address] [address] Calcium [Mass/Vol] 8.6 mg/dL Normal 8.5-10.3 [facility] Comment on above: Performed By: #### A NAC #### [address] [address] Chloride [Moles/Vol] 103 mmol/L Normal 98-110 [facility] Comment on above: Performed By: #### A NAC #### [address] [address] CO2 [Moles/Vol] 27 mmol/L Normal 22-32 [facility] Comment on above: Performed By: #### A NAC #### [address] [address] Creatinine [Mass/Vol] 0.54 mg/dL Normal 0.44-1.03 [facility] Comment on above: Performed By: #### A NAC #### [address] [place] [address] Glucose [Mass/Vol] 105 mg/dL High 70-99 [facility] Comment on above: Performed By: #### A NAC #### [address] [address] Potassium [Moles/Vol] 2.7 mmol/L Low 3.4-4.8 [facility] Comment on above: Performed By: #### A NAC #### [address] [address] Protein [Mass/Vol] 6.6 g/dL Normal 6.5-8.1 [facility] Comment on above: Performed By: #### A NAC #### [address] [address] Sodium [Moles/Vol] 140 mmol/L Normal 133-142 [facility] Comment on above: Performed By: #### A NAC #### [address] [address] Urea nitrogen [Mass/Vol] 9 mg/dL Normal 8-26 [facility] Comment on above: Performed By: #### A NAC #### [address] [address] Urea nitrogen/Creatinine [Mass ratio] 16.7 mg/mg Normal 10.0-20.0 [facility] Comment on above: Performed By: #### A NAC #### [address] [address] Diff Autoon 07-10-2024 Baso Absolute 0.1 x10*3/mcL Normal 0.0-0.2 [facility] Comment on above: Performed By: #### A NAC #### [address] [address] Basophils/100 WBC (Bld) 0.6 % Normal 0.0-1.5 [facility] Comment on above: Performed By: #### A NAC #### [address] [address] Eos Absolute 0.0 x10*3/mcL Normal 0.0-0.4 [facility] Comment on above: Performed By: #### A NAC #### [address] [address] Eosinophils/100 WBC (Bld) 0.3 % Normal 0.0-5.4 [facility] Comment on above: Performed By: #### A NAC #### [place] [address] [place] [address] Lymph Absolute 2.3 x10*3/mcL Normal 1.0-4.8 [facility] Comment on above: Performed By: #### A NAC #### [address] [address] Lymphocytes/100 WBC (Bld) 22.8 % Low 27.2-40.8 [facility] Comment on above: Performed By: #### A NAC #### [address] [address] [place] Absolute 0.5 x10*3/mcL Normal 0.1-1.1 [facility] Comment on above: Performed By: #### A NAC #### [address] [address] Monocytes/100 WBC (Bld) 5.2 % Normal 3.7-11.9 [facility] Comment on above: Performed By: #### A NAC #### [address] [address] Neutro Absolute 7.2 x10*3/mcL Normal 1.8-7.7 [facility] Comment on above: Performed By: #### A NAC #### [address] [address] Neutro Auto 71.1 % High 47.2-70.8 [facility] Comment on above: Performed By: #### A NAC #### [address] [address] Magnesiumon 07-10-2024 Magnesium [Mass/Vol] 1.8 mg/dL Normal 1.7-2.4 [facility] Comment on above: Performed By: #### S BSC #### [facility] (DEFAULT) [address] [place] [id number] [address] Operative Reporton 4 Operative Report Indication for Surgery Patient is a 48-year-old female who presents for right index finger amputation. Patient sustained an open distal phalanx fractures involving getting her hand caught in a door. Patient underwent irrigation debridement followed by pinning and closure of her wound. Unfortunately postoperatively she developed infection and wound necrosis. She also has been persistently smoking following this despite counseling against smoking. I did discuss surgery with her. Due to the continued infection and necrosis of the distal phalanx tissue do recommend amputation. We discussed risks and benefits of the surgery. Did discuss that she is at risk for further wound necrosis considering her comorbidities and current infection. Informed consent was obtained. Surgical site marked. Preoperative Diagnosis Right index finger distal phalanx necrosis with deep infection Postoperative Diagnosis Right index finger distal phalanx necrosis with deep infection Operation Right index finger amputation through middle phalanx. Surgeon(s) Santo Recinos DO (Surgeon - Primary) Career Agent None Anesthesia General Thaddeus RAMIERZ, Dominick Young (Glass Checker) Zackery De Dios (Provider) Estimated Blood Loss 5 cc Urine Output None Findings Necrotic right index finger distal phalanx Specimen(s) Pathology Tissue Request (RIGHT INDEX FINGER,AP Specimen) Sterile Body Sites Culture (RIGHT INDEX FINGER,Tissue,Finger) Pathology Tissue Request (RIGHT INDEX FINGER BONE,AP Specimen) Anaerobic Culture (RIGHT INDEX FINGER BONE,Wound,Finger) Gram Stain (RIGHT INDEX FINGER BONE,Wound,Finger) Sterile Body Sites Culture (RIGHT INDEX FINGER BONE,Bone,Finger) Anaerobic Culture (RIGHT INDEX FINGER,Wound,Finger) Gram Stain (RIGHT INDEX FINGER,Wound,Finger) Gram Stain (RIGHT INDEX FINGER #1,Wound,Finger) Sterile Body Sites Culture (RIGHT INDEX FINGER #1,Tissue,Finger) Gram Stain (RIGHT INDEX FINGER #2,Wound,Finger) Sterile Body Sites Culture (RIGHT INDEX FINGER #2,Tissue,Finger) Anaerobic Culture (RIGHT INDEX FINGER #1,Wound,Finger) Anaerobic Culture (RIGHT INDEX FINGER #2,Wound,Finger) Complications None Technique Patient was taken back to the operative suite. She was then transferred to the operative table. She then underwent MAC anesthesia. We then proceeded have a timeout the patient, procedure, operative site were confirmed our group in the OR. The right upper extremity was isolated and prepped. We then performed a digital block utilizing Marcaine quarter percent plain. Then proceeded to utilize a knife to debride the nonviable tissue of the distal phalanx. It was noted that there was slight purulence noted down at the level of the phalanx in a wound that traveled to the flexor tendon. There was very little active bleeding at the site. At this point felt that distal phalanx amputation was best option. Proceeded to utilize a knife to make a flap incision at the level of the middle phalanx. Cultures were taken. Used a bone rongeur to remove the distal half of middle phalanx. Copiously irrigated the wound with normal saline and dilute Betadine solution. Then proceeded to close the flaps utilizing 3-0 Prolene and 3-0 chromic. There was bleeding tissue following removing of the tourniquet. A bulky soft tissue dressing was applied. Patient was awoken from anesthesia taken the PACU in stable condition. Postoperative plan: Patient will be nonweightbearing to the extremity. She will maintain her dressing till follow-up appointment. Continue antibiotics follow-up with cultures. Tourniquet Time Tourni Cot Med TCM, Finger index (Right), Total Time 31 Sponge/Needle Count Complete Fluid Count 200 cc crystalloid Catheters, Drains, Tubes None Electronically signed by Santo Recinos DO 07/10/24 15:47 EDT Normal [facility] XR Finger 2nd Digit Righton 07-10-2024 XR Finger 2nd Digit Right EXAM: XR Finger 2nd Digit Right HISTORY: Rt 2nd finger in OR COMPARISON: None. TECHNIQUE: Intraoperative views of the second digit right hand FINDINGS: There is amputation distal tuft right second digit. Fluoroscopy time is 6 seconds. 2 spots were obtained. See operative report for full details. IMPRESSION: Final Dictated by: Jacklyn Alanis MD Dictated DT/TM: 07/10/2024 4:55 pm Signed by: Jacklyn Alanis MD Signed (Electronic Signature): 07/10/2024 4:56 pm (If Report Is Signed, Electronically Signed in Other Vendor System) Normal [facility] XR FINGER LEFT (MIN 2 VIEWS) on 06-30-2024 XR FINGER LEFT (MIN 2 VIEWS) EXAM: XR FINGER LEFT (MIN 2 VIEWS) HISTORY: Open displaced fracture of distal phalanx of right index finger, initial encounter COMPARISON: Prior studies, the most recent being 06/09/2024 IMPRESSION: FINDINGS/IMPRESSION: 1. Distracted percutaneously pinned fracture fragments distal phalanx index finger are again seen. 2. No bony bridging. 3. Diffuse osteopenia. 4. No acute complication. Interpreted by: Paolo Robertson Jr., MD Signed by: Paolo Robertson Jr., MD 06/30/24 Final result Normal [facility] XR FINGER RIGHT (MIN 2 VIEWS )on [...] Robertson Jr., MD 06/09/24 Final result Normal [facility] XR NECK SOFT TISSUEon 2022 XR [...] ANGY SMALLS Date: 2023-02-23 13:14 Normal [facility] FREE T4on 02-20-2023 Free T4 [Mass/Vol] 0.65 ng/dL Critically low 0.76-1.46 [facility] Comment on above: Performed By: #### L ACT #### [facility] [address] [place] [address] Dr. Jovanna Oneill TSH W/ REFLEX TO FT4on 02-20 TSH 5.032 uIU/mL Critically high 0.358-3.740 [facility] Comment on above: Performed By: #### L ACT #### [facility] [address] [place] [address] [address] Jovanna Oneill RESPIRATORY PANEL PLUSon Adenovirus Not detected Normal NOT DETECTED [facility] Comment on above: Performed By: #### R SPLUS ####[facility] [address] [place] [address]Dr. Jovanna Oneill B. Parapertusis Not detected Normal NOT DETECTED [facility] Comment on above: Performed By: #### R SPLUS ####[facility] [address] [place], [place] [address]Dr. Jovanna Oneill B. Pertussis Not detected Normal NOT DETECTED [facility] Comment on above: Performed By: #### R SPLUS ####[facility] [address] [place] [address]Dr. Jovanna Oneill Chlamydia Pneumoniae Not detected Normal NOT DETECTED [facility] Comment on above: Performed By: #### R SPLUS ####[facility] [address] [place], [place] [address]Dr. Jovanna Oneill Coronavirus 229E Not detected Normal NOT DETECTED [facility] Comment on above: Performed By: #### R SPLUS ####[facility] [address] [place] [address]Dr. Jovanna Oneill Coronavirus HKU1 Not detected Normal NOT DETECTED [facility] Comment on above: Performed By: #### R SPLUS ####[facility] [address] [place], [place] [address]Dr. Jovanna Oneill Coronavirus NL63 Not detected Normal NOT DETECTED [facility] Comment on above: Performed By: #### R SPLUS ####[facility] [address] [place], [place] [address]Dr. Jovanna Oneill Coronavirus OC43 Not detected Normal NOT DETECTED [facility] Comment on above: Performed By: #### R SPLUS ####[facility] [address] [place], [place] [address]Dr. Jovanna Oneill Influenza A H1 Not detected Normal NOT DETECTED [facility] Comment on above: Performed By: #### R SPLUS ####[facility] [address] [place], [place] [address]Dr. Jovanna Oneill Influenza A H1 2009 Not detected Normal NOT DETECTED [facility] Comment on above: Performed By: #### R SPLUS ####[facility] [address] [place], [place] [address]Dr. Jovanna Oneill Influenza A H3 Not detected Normal NOT DETECTED [facility] Comment on above: Performed By: #### R SPLUS ####[facility] [address] [place], [place] [address]Dr. Jovanna Oneill Influenza B Not detected Normal NOT DETECTED [facility] Comment on above: Performed By: #### R SPLUS ####[facility] [address] [place], [place] [address]Dr. Jovanna Oneill Metapneumovirus Not detected Normal NOT DETECTED [facility] Comment on above: Performed By: #### R SPLUS ####[facility] [address] [place], [place] [address]Dr. Jovanna Oneill Mycoplas. Pneumoniae Not detected Normal NOT DETECTED [facility] Comment on above: Performed By: #### R SPLUS ####[facility] [address] [place], [place] [address]Dr. Jovanna Oneill Parainfluenza 1 Not detected Normal NOT DETECTED [facility] Comment on above: Performed By: #### R SPLUS ####[facility] [address] [place], [place] [address]Dr. Jvoanna Oneill Parainfluenza 2 Not detected Normal NOT DETECTED [facility] Comment on above: Performed By: #### R SPLUS ####[facility] [address] [place], [place] [address]Dr. Jovanna Oneill Parainfluenza 3 Not detected Normal NOT DETECTED [facility] Comment on above: Performed By: #### R SPLUS ####[facility] [address] [place], [place] [address]Dr. Jovanna Nino Parainfluenza 4 Not detected Normal NOT DETECTED [facility] Comment on above: Performed By: #### R SPLUS ####[facility] [address] [place] [address]Dr. Jovanna Oneill Rhino/Enterovirus Not detected Normal NOT DETECTED [facility] Comment on above: Performed By: #### R SPLUS ####[facility] [address] [place] [address]Dr. Jovanna Oneill RP2 Header 1 RESPIRATORY PANEL: VIRUSES Normal [facility] Comment on above: Performed By: #### R SPLUS ####[facility] [address] [place], [place] [address]Dr. Jovanna Oneill RP2 Header 2 RESPIRATORY PANEL: BACTERIA Normal [facility] Comment on above: Performed By: #### R SPLUS ####[facility] [address] [place], [place] [address]Dr. Rosaliareagan Oneill RSV Not detected Normal NOT DETECTED [facility] Comment on above: Performed By: #### R SPLUS ####[facility] [address] [place] [address]Dr. Jovanna Oneill SARS-CoV-2 (COVID-19) RNA DUC+probe Ql (Unsp spec) Not detected Normal NOT DETECTED [facility] Comment on above: Performed By: #### R SPLUS ####[facility] [address] [place], [place] [address]Dr. Rosaliareagan Oneill MG MAMM SCREEN 3D CHELLY CADon 01-12-2023 MG MAMM SCREEN 3D CHELLY CAD Patient: KATI THORNE Exam Date: 01/12/2023 : 1975 Gender:F Ordering : TATUM ONOFRE Admission #: [id number] Family : Order #: [id number] CLICK HERE TO VIEW EXAM RADIOLOGY REPORT [...] cervical cancer at age 40. LOCATION: [facility] BREAST COMPOSITION: Almost entirely fatty. [...] Yanez MD on 01/12/2023 at 12:[address] [facility] XR DEXA BONE DENSITYon 01-12 [...] RJ YANEZ Date: 2023-01-12 17:10 Normal [facility] GABAPENTIN URINEon 3 Gabapentin, Urine Negative Normal [facility] Comment on above: Performed By: #### G ABAP ####[facility] [address] [place] [address]Dr. Jovanna Oneill DRUG SCREEN RAPID (URINE)on 11-14-2022 AMP Negative Normal NEGATIVE [facility] Comment on above: Performed By: #### V ITB12 #### [facility] [address] [address] [address] Jovanna Oneill [facility] Negative Normal NEGATIVE [facility] Comment on above: Performed By: #### V ITB12 #### [facility] [address] [address] [address] Jovanna Oneill [facility] Negative Normal NEGATIVE [facility] Comment on above: Performed By: #### V ITB12 #### [facility] [address] [place] [address] Dr. Jovanna Oneill BZO Negative Normal NEGATIVE [facility] Comment on above: Performed By: #### V ITB12 #### [facility] [address] [place] [address] Dr. Jovanna Oneill CARA Negative Normal NEGATIVE [facility] Comment on above: Performed By: #### V ITB12 #### [facility] [address] [place] [address] Dr. Jovanna Oneill CUT-OFFS SEE BELOW Normal [facility] Comment on above: Result Comment: [...] ng/mL Performed By: #### V ITB12 #### [facility] [address] [place] [address] Dr. Jovanna Oneill DRUG CUT HEADER DRUG CLASS TEST SYSTEM CUT-OFF CONCENTRATIONS ARE FOLLOWS: Normal [facility] Comment on above: Performed By: #### V ITB12 #### [facility] [address] [place] [address] Dr. Jovanna Oneill mAMP Negative Normal NEGATIVE [facility] Comment on above: Performed By: #### V ITB12 #### [facility] [address] [place] [address] Dr. Jovanna Oneill MTD Negative Normal NEGATIVE [facility] Comment on above: Performed By: #### V ITB12 #### [facility] [address] [place] [address] Dr. Jovanna Oneill OPI Positive Abnormal NEGATIVE [facility] Comment on above: Performed By: #### V ITB12 #### [facility] [address] [place] [address] Dr. Jovanna Oneill OXY Negative Normal NEGATIVE [facility] Comment on above: Performed By: #### V ITB12 #### [facility] [address] [place] [address] Dr. Jovanna Oneill PCP Negative Normal NEGATIVE [facility] Comment on above: Performed By: #### V ITB12 #### [facility] [address] [place] [address] Dr. Jovanna Oneill PPX Negative Normal NEGATIVE [facility] Comment on above: Performed By: #### V ITB12 #### [facility] [address] [place] [address] Dr. Jovanna Oneill TCA Negative Normal NEGATIVE [facility] Comment on above: Performed By: #### V ITB12 #### [facility] [address] [place] [address] Dr. Jovanna Oneill THC Positive Abnormal NEGATIVE [facility] Comment on above: Performed By: #### V ITB12 #### [facility] [address] [place] [address] Dr. Jovanna Oneill CBC AUTO DIFFon 10-08-2022 BASO # 0.0 103/ul Normal 0.0-0.[address] [facility] Comment on above: Performed By: #### C BC #### [facility] [address] [place] [address] Dr. Jovanna Oneill Basophils/100 WBC (Bld) 0.4 % Normal 0.2-2.[address] [facility] Comment on above: Performed By: #### C BC #### [facility] [address] [place] [address] Dr. Jovanna Oneill EO # 0.1 103/ul Normal 0.0-0.[address] [facility] Comment on above: Performed By: #### C BC #### [facility] [address] [place] [address] Dr. Jovanna Oneill Eosinophils/100 WBC (Bld) 1.3 % Normal 0.9-7.[address] [facility] Comment on above: Performed By: #### C BC #### [facility] [address] [place] [address] Dr. Jovanna Oneill Erythrocyte distribution width (RBC) [Ratio] 12.0 % Normal 11.0-15.[address] [facility] Comment on above: Performed By: #### C BC #### [facility] [address] [place] [address] Dr. Jovanna Oneill Hematocrit (Bld) [Volume fraction] 37.8 % Normal 36.0-48.[address] [facility] Comment on above: Performed By: #### C BC #### [facility] [address] [place] [address] Dr. Jovanna Oneill Hemoglobin (Bld) [Mass/Vol] 12.8 g/dL Normal 12.0-16.[address] [facility] Comment on above: Performed By: #### C BC #### [facility] [address] [place] [address] Dr. Jovanna Oneill IG # 0.02 10e3/ul Normal 0.00-0.[address] [facility] Comment on above: Performed By: #### C BC #### [facility] [address] [place] [address] Dr. Jovanna Oneill IG % 0.2 % Normal 0.0-0.[address] [facility] Comment on above: Performed By: #### C BC #### [facility] [address] [place] [address] Dr. Jovanna Oneill LYMPH # 3.5 103/ul Normal 1.2-3.[address] [facility] Comment on above: Performed By: #### C BC #### [facility] [address] [place] [address] Dr. Jovanna Oneill Lymphocytes/100 WBC (Bld) 37.9 % Normal 20.5-60.[address] [facility] Comment on above: Performed By: #### C BC #### [facility] [address] [place] [address] Dr. Jovanna Oneill MANUAL DIFF REQ NO Normal [facility] Comment on above: Performed By: #### C BC #### [facility] [address] [place] [address] Dr. Jovanna Oneill MCH (RBC) [Entitic mass] 31.7 pg Normal 26.7-34.[address] [facility] Comment on above: Performed By: #### C BC #### [facility] [address] [place] [address] Dr. Jovanna Oneill MCHC (RBC) [Mass/Vol] 33.9 g/dL Normal 29.9-35.[address] [facility] Comment on above: Performed By: #### C BC #### [facility] [address] [place] [address] Dr. Jovanna Oneill MCV (RBC) [Entitic vol] 93.6 fL Normal 81.0-99.[address] [facility] Comment on above: Performed By: #### C BC #### [facility] [address] [place] [address] Dr. Jovanna Oneill MONO # 0.5 103/ul Normal 0.3-0.[address] [facility] Comment on above: Performed By: #### C BC #### [facility] [address] [place] [address] Dr. Jovanna Oneill Monocytes/100 WBC (Bld) 4.8 % Normal 1.7-12.[address] [facility] Comment on above: Performed By: #### C BC #### [facility] [address] [place] [address] Dr. Jovanna Oneill NEUT # 5.1 103/ul Normal 1.4-6.5 [facility] Comment on above: Performed By: #### C BC #### [facility] [address] [place] [address] Dr. Jovanna Oneill Neutrophils/100 WBC (Bld) 55.4 % Normal 43.0-75.0 [facility] Comment on above: Performed By: #### C BC #### [facility] [address] [place] [address] Dr. Jovanna Oneill Platelet mean volume (Bld) [Entitic vol] 10.2 fL Normal 9.5-13.5 [facility] Comment on above: Performed By: #### C BC #### [facility] [address] [address] [address] Jovanna Oneill PLT 181 103/ul Normal 150-[address] [facility] Comment on above: Performed By: #### C BC #### [facility] [address] [address] [address] Jovanna Oneill RBC 4.04 106/ul Critically low 4.20-5.40 [facility] Comment on above: Performed By: #### C BC #### [facility] [address] [address] [address] Jovanna Oneill WBC 9.3 103/ul Normal 4.0-11.[address] [facility] Comment on above: Performed By: #### C BC #### [facility] [address] [address] [address] Jovanna Oneill CRPon 10-08-2022 CRP [Mass/Vol] mg/L Normal <=1.0 [facility] Comment on above: Performed By: #### B MP, CRP ####[facility] [id number] [address]Dr. Jovanna Oneill LACTATE/LACTIC ACIDon 2021 Lactate [Moles/Vol] 0.4 mmol/L Normal 0.4-1.9 [facility] Comment on above: Performed By: #### L ACT #### [facility] [address] [address] [address] Jovanna Oneill PROF CHEM 8 (BAS METB)on Anion gap [Moles/Vol] 12.6 mmol/L Normal [facility] Comment on above: Performed By: #### B MP, CRP #### [facility] [address] [address] [address] Jovanna Oneill Calcium [Mass/Vol] 8.6 mg/dL Normal 8.5-10.1 [facility] Comment on above: Performed By: #### B MP, CRP #### [facility] [address] [address] [address] Jovanna Oneill Chloride [Moles/Vol] 104 mmol/L Normal 98-[address] [facility] Comment on above: Performed By: #### B MP, CRP #### [facility] [address] [address] [address] Jovanna Oneill CO2 [Moles/Vol] 26.8 mmol/L Normal 21.0-32.0 [facility] Comment on above: Performed By: #### B MP, CRP #### [facility] [address] [address] [address] Jovanna Oneill Creatinine [Mass/Vol] 0.52 mg/dL Critically low 0.55-1.[address] [facility] Comment on above: Performed By: #### B MP, CRP #### [facility] [address] [address] [address] Jovanna Oneill EGFR-AF KYRGYZ >60 Normal >=60 [facility] Comment on above: Performed By: #### B MP, CRP #### [facility] [address] [address] [address] Jovanna Oneill EGFR-NON AF KYRGYZ >60 Normal >=[address] [facility] Comment on above: Performed By: #### B MP, CRP #### [facility] [address] [address] [address] Jovanna Oneill Glucose [Mass/Vol] 93 mg/dL Normal 74-106 [facility] Comment on above: Performed By: #### B MP, CRP #### [facility] [address] [address] [address] Jovanna Oneill Potassium [Moles/Vol] 3.4 mmol/L Critically low 3.5-5.[address] [facility] Comment on above: Performed By: #### B MP, CRP #### [facility] [address] [address] [address] Jovanna Oneill Sodium [Moles/Vol] 140 mmol/L Normal 136-145 [facility] Comment on above: Performed By: #### B MP, CRP #### [facility] [address] [address] [address] Jovanna Oneill Urea nitrogen [Mass/Vol] 11.0 mg/dL Normal 7.0-18.[address] [facility] Comment on above: Performed By: #### B MP, CRP #### [facility] [address] [address] [address] Jovanna Oneill Urea nitrogen/Creatinine [Mass ratio] 21.2 mg/mg Normal [facility] Comment on above: Performed By: #### B MP, CRP #### [facility] [address] [address] [address] Jovanna Oneill [facility] 2021 SED RATE 17 mm/hr Normal <=[address] [facility] Comment on above: Performed By: #### S EDR ####[facility] [address] [address]Dr. Jovanna Oneill Physician Referralon 022 Physician Referral [phone] [phone] [id number] .[id number]:[id number] Normal [facility] Physician Referral [id number] 1 [id number] .[id number]:127 Normal [facility] PROF 14(COMP METB)on 022 Albumin [Mass/Vol] 3.4 g/dL Normal 3.4-5.0 [facility] Comment on above: Performed By: #### V ITB12 #### [facility] [address] [address] [address] Jovanna Oneill Albumin/Globulin [Mass ratio] 1.1 {ratio} Normal [facility] Comment on above: Performed By: #### V ITB12 #### [facility] [address] [address] [address] Jovanna Oneill ALP [Catalytic activity/Vol] 88 U/L Normal 46-[address] [facility] Comment on above: Performed By: #### V ITB12 #### [facility] [address] [address] [address] Jovanna Oneill ALT [Catalytic activity/Vol] 11 U/L Critically low 14-[address] [facility] Comment on above: Performed By: #### V ITB12 #### [facility] [address] [address] [address] Jovanna Oneill Anion gap [Moles/Vol] 8.7 mmol/L Normal [facility] Comment on above: Performed By: #### V ITB12 #### [facility] [address] [address] [address] Jovanna Oneill AST [Catalytic activity/Vol] 13 U/L Critically low 15-[address] [facility] Comment on above: Performed By: #### V ITB12 #### [facility] [address] [place] [address] Dr. Jovanna Oneill Bilirubin [Mass/Vol] 0.6 mg/dL Normal 0.2-1.[address] [facility] Comment on above: Performed By: #### V ITB12 #### [facility] [address] [place] [address] Dr. Jovanna Oneill Calcium [Mass/Vol] 8.7 mg/dL Normal 8.5-10.1 [facility] Comment on above: Performed By: #### V ITB12 #### [facility] [address] [place] [address] Dr. Jovanna Oneill Chloride [Moles/Vol] 104 mmol/L Normal 98-107 [facility] Comment on above: Performed By: #### V ITB12 #### [facility] [address] [place] [address] Dr. Jovanna Oneill CO2 [Moles/Vol] 31.9 mmol/L Normal 21.0-32.0 [facility] Comment on above: Performed By: #### V ITB12 #### [facility] [address] [place] [address] Dr. Jovanna Oneill Creatinine [Mass/Vol] 0.65 mg/dL Normal 0.55-1.02 [facility] Comment on above: Performed By: #### V ITB12 #### [facility] [address] [place] [address] Dr. Jovanna Oneill EGFR-AF KYRGYZ >60 Normal >=60 [facility] Comment on above: Performed By: #### V ITB12 #### [facility] [address] [address] [address] Jovanna Oneill EGFR-NON AF KYRGYZ >60 Normal >=[address] [facility] Comment on above: Performed By: #### V ITB12 #### [facility] [address] [address] [address] Jovanna Oneill Globulin (S) [Mass/Vol] 3.2 g/dL Normal [facility] Comment on above: Performed By: #### V ITB12 #### [facility] [address] [address] [address] Jovanna Oneill Glucose [Mass/Vol] 91 mg/dL Normal 74-106 [facility] Comment on above: Performed By: #### V ITB12 #### [facility] [address] [place] [address] Dr. Jovanna Oneill Potassium [Moles/Vol] 3.6 mmol/L Normal 3.5-5.[address] [facility] Comment on above: Performed By: #### V ITB12 #### [facility] [address] [place] [address] Dr. Jovanna Oneill Protein [Mass/Vol] 6.6 g/dL Normal 6.4-8.2 [facility] Comment on above: Performed By: #### V ITB12 #### [facility] [address] [place] [address] Dr. Jovanna Oneill Sodium [Moles/Vol] 141 mmol/L Normal 136-145 [facility] Comment on above: Performed By: #### V ITB12 #### [facility] [address] [place] [address] Dr. Jovanna Oneill Urea nitrogen [Mass/Vol] 4.0 mg/dL Critically low 7.0-18.[address] [facility] Comment on above: Performed By: #### V ITB12 #### [facility] [address] [place] [address] Dr. Jovanna Oneill Urea nitrogen/Creatinine [Mass ratio] 6.2 mg/mg Normal [facility] Comment on above: Performed By: #### V ITB12 #### [facility] [address] [place] [address] Dr. Jovanna Oneill HEPATITIS C AB CASCADE TO QU ANT PCR GENOon 09-13-2022 HCV AB <0.1 Normal 0.0-0.[address] [facility] Comment on above: Performed By: #### H EPCASC #### [facility] [address] [address] [address] Jovanna Oneill Interpretation: Comment Normal [facility] Comment on above: Result Comment: Nega tive Not infected with HCV, unless recent infection is suspected or other evidence exists to indicate HCV infection. Performed By: #### H EPCASC #### [facility] [address] [place] [address] Dr. Jovanna Oneill CBC AUTO DIFFon 09-12-2022 BASO # 0.0 103/ul Normal 0.0-0.[address] [facility] Comment on above: Performed By: #### C BC #### [facility] [address] [place] [address] Dr. Jovanna Oneill Basophils/100 WBC (Bld) 0.3 % Normal 0.2-2.[address] [facility] Comment on above: Performed By: #### C BC #### [facility] [address] [place] [address] Dr. Jovanna Oneill EO # 0.1 103/ul Normal 0.0-0.[address] [facility] Comment on above: Performed By: #### C BC #### [facility] [address] [place] [address] Dr. Jovanna Oneill Eosinophils/100 WBC (Bld) 0.7 % Critically low 0.9-7.0 [facility] Comment on above: Performed By: #### C BC #### [facility] [address] [place] [address] Dr. Jovanna Oneill Erythrocyte distribution width (RBC) [Ratio] 12.3 % Normal 11.0-15.[address] [facility] Comment on above: Performed By: #### C BC #### [facility] [address] [place] [address] Dr. Jovanna Oneill Hematocrit (Bld) [Volume fraction] 40.2 % Normal 36.0-48.[address] [facility] Comment on above: Performed By: #### C BC #### [facility] [address] [address] [address] Jovanna Oneill Hemoglobin (Bld) [Mass/Vol] 13.4 g/dL Normal 12.0-16.[address] [facility] Comment on above: Performed By: #### C BC #### [facility] [address] [address] [address] Jovanna Oneill IG # 0.02 10e3/ul Normal 0.00-0.[address] [facility] Comment on above: Performed By: #### C BC #### [facility] [address] [place] [address] Dr. Jovanna Oneill IG % 0.3 % Normal 0.0-0.[address] [facility] Comment on above: Performed By: #### C BC #### [facility] [address] [place] [address] Dr. Jovanna Oneill LYMPH # 2.2 103/ul Normal 1.2-3.[address] [facility] Comment on above: Performed By: #### C BC #### [facility] [address] [place] [address] Dr. Jovanna Oneill Lymphocytes/100 WBC (Bld) 31.9 % Normal 20.5-60.[address] [facility] Comment on above: Performed By: #### C BC #### [facility] [address] [place] [address] Dr. Jovanna Oneill MANUAL DIFF REQ NO Normal [facility] Comment on above: Performed By: #### C BC #### [facility] [address] [place] [address] Dr. Jovanna Oneill MCH (RBC) [Entitic mass] 31.8 pg Normal 26.7-34.0 [facility] Comment on above: Performed By: #### C BC #### [facility] [address] [place] [address] Dr. Jovanna Oneill MCHC (RBC) [Mass/Vol] 33.3 g/dL Normal 29.9-35.2 [facility] Comment on above: Performed By: #### C BC #### [facility] [address] [address] [address] Jovanna Oneill MCV (RBC) [Entitic vol] 95.5 fL Normal 81.0-99.[address] [facility] Comment on above: Performed By: #### C BC #### [facility] [address] [address] [address] Jovanna Oneill MONO # 0.3 103/ul Normal 0.3-0.8 [facility] Comment on above: Performed By: #### C BC #### [facility] [address] [place] [address] Dr. Jovanna Oneill Monocytes/100 WBC (Bld) 4.4 % Normal 1.7-12.[address] [facility] Comment on above: Performed By: #### C BC #### [facility] [address] [place] [address] Dr. Jovanna Oneill NEUT # 4.4 103/ul Normal 1.4-6.[address] [facility] Comment on above: Performed By: #### C BC #### [facility] [address] [place] [address] Dr. Jovanna Oneill Neutrophils/100 WBC (Bld) 62.4 % Normal 43.0-75.[address] [facility] Comment on above: Performed By: #### C BC #### [facility] [address] [place] [address] Dr. Jovanna Oneill Platelet mean volume (Bld) [Entitic vol] 10.9 fL Normal 9.5-13.5 [facility] Comment on above: Performed By: #### C BC #### [facility] [address] [place] [address] Dr. Jovanna Oneill PLT 179 103/ul Normal 150-450 [facility] Comment on above: Performed By: #### C BC #### [facility] [address] [place] [address] Dr. Jovanna Oneill RBC 4.21 106/ul Normal 4.20-5.40 [facility] Comment on above: Performed By: #### C BC #### [facility] [address] [address] [address] Jovanna Oneill WBC 7.0 103/ul Normal 4.0-11.[address] [facility] Comment on above: Performed By: #### C BC #### [facility] [address] [place] [address] Dr. Jovanna Oneill GLYCOHEMOGLOBIN A1Con 2021 ADA RECOMMENDATION SEE BELOW Normal [facility] Comment on above: Result Comment: ADA RECOMMENDED LIMIT 4.0 - 6.0 ADA THERAPEUTIC TARGET < 7.0 ACTION SUGGESTED > 7.0 Performed By: #### L ACT #### [facility] [address] [place] [address] Dr. Jovanna Oneill Glucose [Mass/Vol] 105 mg/dL Normal [facility] Comment on above: Performed By: #### L ACT #### [facility] [address] [place] [address] Dr. Jovanna Oneill HbA1c (Bld) [Mass fraction] 5.3 % Normal 4.5-6.[address] [facility] Comment on above: Performed By: #### L ACT #### [facility] [address] [place] [address] Dr. Jovanna Oneill LIPID PROFILEon 09-12-2022 CHOL-HDL RATIO NORM SEE BELOW Normal [facility] Comment on above: Result Comment: 3.3 - 4.4 LOW RISK 4.4 - 7.1 AVERAGE RISK 7.1 - 11.0 MODERATE RISK >11.0 HIGH RISK Performed By: #### C MP, LIPID #### [facility] [address] [place] [address] Dr. Jovanna Oneill Cholesterol [Mass/Vol] 135 mg/dL Normal <=200 [facility] Comment on above: Performed By: #### C MP, LIPID #### [facility] [address] [place] [address] Dr. Jovanna Oneill Cholesterol in HDL [Mass/Vol] 35 mg/dL Critically low 40-[address] [facility] Comment on above: Performed By: #### C MP, LIPID #### [facility] [address] [place] [address] Dr. Jovanna Oneill Cholesterol in LDL [Mass/Vol] 84.8 mg/dL Normal [facility] Comment on above: Performed By: #### C MP, LIPID #### [facility] [address] [address] [address] Jovanna Oneill Cholesterol.total/Ch olesterol in HDL [Mass ratio] 3.9 {ratio} Normal [facility] Comment on above: Performed By: #### C MP, LIPID #### [facility] [address] [address] [address] Jovanna Oneill HDL NORMAL > or = 60 mg/dl - LO W CARDIOVASCULAR RISK <40 mg/dl - HIGH CARDIOVASCULAR RISK Normal [facility] Comment on above: Performed By: #### C MP, LIPID #### [facility] [address] [place] [address] Dr. Jovanna Oneill LDL CALC NORMAL SEE BELOW Normal [facility] Comment on above: Result Comment: <100 mg/dl OPTIMAL 100 - 129 mg/dl NEAR OR ABOVE OPTIMAL 130 - 159 mg/dl BORDERLINE HIGH 160 - 189 mg/dl HIGH >190 mg/dl VERY HIGH Performed By: #### C MP, LIPID #### [facility] [address] [address] [address] Jovanna Oneill Triglyceride [Mass/Vol] 76 mg/dL Normal <=[address] [facility] Comment on above: Performed By: #### C MP, LIPID #### [facility] [address] [place] [address] Dr. Jovanna Oneill VLDL CALC 15.2 mg/dL Normal [facility] Comment on above: Performed By: #### C MP, LIPID #### [facility] [address] [place] [address] Dr. Jovanna Oneill PROF 14(COMP METB)on 022 Albumin [Mass/Vol] 3.5 g/dL Normal 3.4-5.0 [facility] Comment on above: Performed By: #### C MP, LIPID #### [facility] [address] [place] [address] Dr. Jovanna Oneill Albumin/Globulin [Mass ratio] 1.1 {ratio} Normal [facility] Comment on above: Performed By: #### C MP, LIPID #### [facility] [address] [address] [address] Jovanna Oneill ALP [Catalytic activity/Vol] 79 U/L Normal 46-[address] [facility] Comment on above: Performed By: #### C MP, LIPID #### [facility] [address] [address] [address] Jovanna Oneill ALT [Catalytic activity/Vol] 15 U/L Normal 14-[address] [facility] Comment on above: Performed By: #### C MP, LIPID #### [facility] [address] [address] [address] Jovanna Oneill Anion gap [Moles/Vol] 4.9 mmol/L Normal [facility] Comment on above: Performed By: #### C MP, LIPID #### [facility] [address] [place] [address] Dr. Jovanna Oneill AST [Catalytic activity/Vol] 17 U/L Normal 15-[address] [facility] Comment on above: Performed By: #### C MP, LIPID #### [facility] [address] [address] [address] Jovanna Oneill Bilirubin [Mass/Vol] 0.4 mg/dL Normal 0.2-1.[address] [facility] Comment on above: Performed By: #### C MP, LIPID #### [facility] [address] [address] [address] Jovanna Oneill Calcium [Mass/Vol] 8.7 mg/dL Normal 8.5-10.1 [facility] Comment on above: Performed By: #### C MP, LIPID #### [facility] [address] [address] [address] Jovanna Oneill Chloride [Moles/Vol] 103 mmol/L Normal 98-[address] [facility] Comment on above: Performed By: #### C MP, LIPID #### [facility] [address] [address] [address] Jovanna Oneill CO2 [Moles/Vol] 35.8 mmol/L Critically high 21.0-32.[address] [facility] Comment on above: Performed By: #### C MP, LIPID #### [facility] [address] [address] [address] Jovanna Oneill Creatinine [Mass/Vol] 0.70 mg/dL Normal 0.55-1.02 [facility] Comment on above: Performed By: #### C MP, LIPID #### [facility] [address] [address] [address] Jovanna Oneill EGFR-AF KYRGYZ >60 Normal >=60 [facility] Comment on above: Performed By: #### C MP, LIPID #### [facility] [address] [address] [address] Jovanna Oneill EGFR-NON AF KYRGYZ >60 Normal >=[address] [facility] Comment on above: Performed By: #### C MP, LIPID #### [facility] [address] [address] [address] Jovanna Oneill Globulin (S) [Mass/Vol] 3.2 g/dL Normal [facility] Comment on above: Performed By: #### C MP, LIPID #### [facility] [address] [address] [address] Jovanna Oneill Glucose [Mass/Vol] 86 mg/dL Normal 74-106 [facility] Comment on above: Performed By: #### C MP, LIPID #### [facility] [address] [place] [address] Dr. Jovanna Oneill Potassium [Moles/Vol] 2.7 mmol/L Critically low 3.5-5.1 [facility] Comment on above: Performed By: #### C MP, LIPID #### [facility] [address] [address] [address] Jovanna Oneill Protein [Mass/Vol] 6.7 g/dL Normal 6.4-8.2 [facility] Comment on above: Performed By: #### C MP, LIPID #### [facility] [address] [address] [address] Jovanna Oneill Sodium [Moles/Vol] 141 mmol/L Normal 136-145 [facility] Comment on above: Performed By: #### C MP, LIPID #### [facility] [address] [address] [address] Jovanna Oneill Urea nitrogen [Mass/Vol] 6.0 mg/dL Critically low 7.0-18.[address] [facility] Comment on above: Performed By: #### C MP, LIPID #### [facility] [address] [address] [address] Jovanna Oneill Urea nitrogen/Creatinine [Mass ratio] 8.6 mg/mg Normal [facility] Comment on above: Performed By: #### C MP, LIPID #### [facility] [address] [address] [address] Jovanna Oneill US THYROIDon 09-12-2022 US [...] FRANCES AGUSTIN Date: 2022-09-12 11:52 Normal [facility] VITAMIN B12on 09-12-2022 Cobalamin (Vitamin B12) [Mass/Vol] 280.0 pg/mL Normal 193.0-986.0 [facility] Comment on above: Performed By: #### V ITB12 #### [facility] [address] [address] CSPINE WO CONon CT CSPINE WO CON EXAMINATION: CT CSPINE [...] MAN VILLALOBOS Date: 2022-08-24 18:11 Normal [facility] CT NECK ST W CONon CT NECK ST W CON EXAMINATION: CT [...] WOO PAIGE Date: 2022-08-16 23:10 Normal [facility] CBC AUTO DIFFon 08-16-2022 BASO # 0.0 103/ul Normal 0.0-0.[address] [facility] Comment on above: Performed By: #### C BC ####[facility] [address] [id number]. Jovanna Oneill Basophils/100 WBC (Bld) 0.2 % Normal 0.2-2.[address] [facility] Comment on above: Performed By: #### C BC ####[facility] [address] [address]Dr. Jovanna Oneill EO # 0.1 103/ul Normal 0.0-0.7 [facility] Comment on above: Performed By: #### C BC ####[facility] [address] [place], [place] [address]Dr. Jovanna Oneill Eosinophils/100 WBC (Bld) 0.7 % Critically low 0.9-7.[address] [facility] Comment on above: Performed By: #### C BC ####[facility] [address] [place], [place] [address]Dr. Jovanna Oneill Erythrocyte distribution width (RBC) [Ratio] 12.1 % Normal 11.0-15.[address] [facility] Comment on above: Performed By: #### C BC ####[facility] [address] [place], [place] [address]Dr. Jovanna Oneill Hematocrit (Bld) [Volume fraction] 38.8 % Normal 36.0-48.[address] [facility] Comment on above: Performed By: #### C BC ####[facility] [address] [place], [place] [address]Dr. Jovanna Oneill Hemoglobin (Bld) [Mass/Vol] 12.8 g/dL Normal 12.0-16.0 [facility] Comment on above: Performed By: #### C BC ####[facility] [address] [place], [place] [address]Dr. Jovanna Oneill IG # 0.06 10e3/ul Critically high 0.00-0.03 [facility] Comment on above: Performed By: #### C BC ####[facility] [address] [place], [place] [address]Dr. Jovanna Oneill IG % 0.4 % Normal 0.0-0.[address] [facility] Comment on above: Performed By: #### C BC ####[facility] [address] [id number]. Jovanna Oneill LYMPH # 2.5 103/ul Normal 1.2-3.8 [facility] Comment on above: Performed By: #### C BC ####[facility] [address] [id number]. Jovanna Oneill Lymphocytes/100 WBC (Bld) 18.1 % Critically low 20.5-60.[address] [facility] Comment on above: Performed By: #### C BC ####[facility] [address] [address]Dr. Jovanna Oneill MANUAL DIFF REQ NO Normal [facility] Comment on above: Performed By: #### C BC ####[facility] [address] [id number]. Jovanna Oneill MCH (RBC) [Entitic mass] 32.0 pg Normal 26.7-34.[address] [facility] Comment on above: Performed By: #### C BC ####[facility] [address] [id number]. Jovanna Oneill MCHC (RBC) [Mass/Vol] 33.0 g/dL Normal 29.9-35.2 [facility] Comment on above: Performed By: #### C BC ####[facility] [address] [id number]. Jovanna Oneill MCV (RBC) [Entitic vol] 97.0 fL Normal 81.0-99.[address] [facility] Comment on above: Performed By: #### C BC ####[facility] [address] [id number] Oneill MONO # 0.6 103/ul Normal 0.3-0.[address] [facility] Comment on above: Performed By: #### C BC ####[facility] [address] [id number]. Jovanna Oneill Monocytes/100 WBC (Bld) 4.5 % Normal 1.7-12.0 [facility] Comment on above: Performed By: #### C BC ####[facility] [address] [id number] Lindseyreagan Nino NEUT # 10.4 103/ul Critically high 1.4-6.5 [facility] Comment on above: Performed By: #### C BC ####[facility] [address] [id number] Oneill Neutrophils/100 WBC (Bld) 76.1 % Critically high 43.0-75.[address] [facility] Comment on above: Performed By: #### C BC ####[facility] [address] [id number]. Jovanna Oneill Platelet mean volume (Bld) [Entitic vol] 10.9 fL Normal 9.5-13.[address] [facility] Comment on above: Performed By: #### C BC ####[facility] [address] [id number] Oneill PLT 193 103/ul Normal 150-[address] [facility] Comment on above: Performed By: #### C BC ####[facility] [address] [id number]. Jovanna Oneill RBC 4.00 106/ul Critically low 4.20-5.40 [facility] Comment on above: Performed By: #### C BC ####[facility] [address] [id number] Oneill WBC 13.7 103/ul Critically high 4.0-11.0 [facility] Comment on above: Performed By: #### C BC ####[facility] [address] [id number]. Jovanna Oneill FREE T4on 08-16-2022 Free T4 [Mass/Vol] 0.68 ng/dL Critically low 0.76-1.46 [facility] Comment on above: Performed By: #### L ACT #### [facility] [address] [place], [place] [address] Dr. Jovanna Oneill HS-CRPon 08-16-2022 HS-CRP 1.04 mg/L Normal <=3.[address] [facility] Comment on above: Performed By: #### L ACT #### [facility] [address] [place] [address] Dr. Jovanna Oneill PROF 14(COMP METB)on 022 Albumin [Mass/Vol] 3.5 g/dL Normal 3.4-5.0 [facility] Comment on above: Performed By: #### V ITB12 #### [facility] [address] [place] [address] Dr. Jovanna Oneill Albumin/Globulin [Mass ratio] 1.1 {ratio} Normal [facility] Comment on above: Performed By: #### V ITB12 #### [facility] [address] [place] [address] Dr. Jovanna Oneill ALP [Catalytic activity/Vol] 82 U/L Normal 46-[address] [facility] Comment on above: Performed By: #### V ITB12 #### [facility] [address] [place] [address] Dr. Jovanna Oneill ALT [Catalytic activity/Vol] 17 U/L Normal 14-[address] [facility] Comment on above: Performed By: #### V ITB12 #### [facility] [address] [place] [address] Dr. Jovanna Oneill Anion gap [Moles/Vol] 9.6 mmol/L Normal [facility] Comment on above: Performed By: #### V ITB12 #### [facility] [address] [place] [address] Dr. Jovanna Oneill AST [Catalytic activity/Vol] 17 U/L Normal 15-[address] [facility] Comment on above: Performed By: #### V ITB12 #### [facility] [address] [place] [address] Dr. Jovanna Oneill Bilirubin [Mass/Vol] 0.4 mg/dL Normal 0.2-1.[address] [facility] Comment on above: Performed By: #### V ITB12 #### [facility] [address] [place] [address] Dr. Jovanna Oneill Calcium [Mass/Vol] 8.7 mg/dL Normal 8.5-10.1 [facility] Comment on above: Performed By: #### V ITB12 #### [facility] [address] [address] [address] Jovanna Oneill Chloride [Moles/Vol] 105 mmol/L Normal 98-107 [facility] Comment on above: Performed By: #### V ITB12 #### [facility] [address] [address] [address] Jovanna Oneill CO2 [Moles/Vol] 30.9 mmol/L Normal 21.0-32.0 [facility] Comment on above: Performed By: #### V ITB12 #### [facility] [address] [place] [address] Dr. Jovanna Oneill Creatinine [Mass/Vol] 0.69 mg/dL Normal 0.55-1.02 [facility] Comment on above: Performed By: #### V ITB12 #### [facility] [address] [place] [address] Dr. Jovanna Oneill EGFR-AF KYRGYZ >60 Normal >=60 [facility] Comment on above: Performed By: #### V ITB12 #### [facility] [address] [place] [address] Dr. Jovanna Oneill EGFR-NON AF KYRGYZ >60 Normal >=60 [facility] Comment on above: Performed By: #### V ITB12 #### [facility] [address] [place] [address] Dr. Jovanna Oneill Globulin (S) [Mass/Vol] 3.1 g/dL Normal [facility] Comment on above: Performed By: #### V ITB12 #### [facility] [address] [place] [address] Dr. Jovanna Oneill Glucose [Mass/Vol] 84 mg/dL Normal 74-106 [facility] Comment on above: Performed By: #### V ITB12 #### [facility] [address] [place] [address] Dr. Jovanna Oneill Potassium [Moles/Vol] 3.5 mmol/L Normal 3.5-5.[address] [facility] Comment on above: Performed By: #### V ITB12 #### [facility] [address] [place] [address] Dr. Jovanna Oneill Protein [Mass/Vol] 6.6 g/dL Normal 6.4-8.2 [facility] Comment on above: Performed By: #### V ITB12 #### [facility] [address] [place] [address] Dr. Jovanna Oneill Sodium [Moles/Vol] 142 mmol/L Normal 136-145 [facility] Comment on above: Performed By: #### V ITB12 #### [facility] [address] [place] [address] Dr. Jovanna Oneill Urea nitrogen [Mass/Vol] 7.0 mg/dL Normal 7.0-18.[address] [facility] Comment on above: Performed By: #### V ITB12 #### [facility] [address] [place] [address] Dr. Jovanna Oneill Urea nitrogen/Creatinine [Mass ratio] 10.1 mg/mg Normal [facility] Comment on above: Performed By: #### V ITB12 #### [facility] [address] [place] [address] Dr. Jovanna Oneill PROF CHEM 8 (BAS METB)on Anion gap [Moles/Vol] 8.5 mmol/L Normal [facility] Comment on above: Performed By: #### L ACT #### [facility] [address] [place] [address] Dr. Jovanna Oneill Calcium [Mass/Vol] 8.3 mg/dL Critically low 8.5-10.1 [facility] Comment on above: Performed By: #### L ACT #### [facility] [address] [place] [address] Dr. Jovanna Oneill Chloride [Moles/Vol] 105 mmol/L Normal 98-[address] [facility] Comment on above: Performed By: #### L ACT #### [facility] [address] [place] [address] Dr. Jovanna Oneill CO2 [Moles/Vol] 28.4 mmol/L Normal 21.0-32.0 [facility] Comment on above: Performed By: #### L ACT #### [facility] [address] [address] [address] Jovanna Oneill Creatinine [Mass/Vol] 0.72 mg/dL Normal 0.55-1.[address] [facility] Comment on above: Performed By: #### L ACT #### [facility] [address] [address] [address] Jovanna Oneill EGFR-AF KYRGYZ >60 Normal >=60 [facility] Comment on above: Performed By: #### L ACT #### [facility] [address] [place] [address] Dr. Jovanna Oneill EGFR-NON AF KYRGYZ >60 Normal >=[address] [facility] Comment on above: Performed By: #### L ACT #### [facility] [address] [place] [address] Dr. Jovanna Oneill Glucose [Mass/Vol] 242 mg/dL Critically high 74-106 T [facility] Comment on above: Performed By: #### L ACT #### [facility] [address] [place] [address] Dr. Jovanna Oneill Potassium [Moles/Vol] 2.9 mmol/L Critically low 3.5-5.[address] [facility] Comment on above: Performed By: #### L ACT #### [facility] [address] [place] [address] Dr. Jovanna Oneill Sodium [Moles/Vol] 138 mmol/L Normal 136-145 [facility] Comment on above: Performed By: #### L ACT #### [facility] [address] [address] [address] Jovanna Oneill Urea nitrogen [Mass/Vol] 5.0 mg/dL Critically low 7.0-18.[address] [facility] Comment on above: Performed By: #### L ACT #### [facility] [address] [address] [address] Jovanna Oneill Urea nitrogen/Creatinine [Mass ratio] 6.9 mg/mg Normal [facility] Comment on above: Performed By: #### L ACT #### [facility] [address] [address] [address] Jovanna Oneill TSHon 08-16-2022 TSH 4.977 uIU/mL Critically high 0.358-3.740 [facility] Comment on above: Performed By: #### V ITB12 #### [facility] [id number] Jov[address] Oneill [address] ABD/PELVIS WO CONon [...] Ayaka LEON Date: 2022-05-02 03:06 Normal [facility] DRUG SCREEN RAPID (URINE)on 05-02-2022 AMP Negative Normal NEGATIVE [facility] Comment on above: Performed By: #### L ACT #### [facility] [id number] Jovanna Oneill BAR Negative Normal NEGATIVE [facility] Comment on above: Performed By: #### L ACT #### [facility] [address] [place] [address] Dr. Jovanna Oneill BUP Negative Normal NEGATIVE [facility] Comment on above: Performed By: #### L ACT #### [facility] [address] [place] [address] Dr. Jovanna Oneill BZO Negative Normal NEGATIVE [facility] Comment on above: Performed By: #### L ACT #### [facility] [address] [place] [address] Dr. Jovanna Oneill CARA Negative Normal NEGATIVE [facility] Comment on above: Performed By: #### L ACT #### [facility] [address] [place] [address] Dr. Jovanna Oneill CUT-OFFS SEE BELOW Normal [facility] Comment on above: Result Comment: [...] ng/mL Performed By: #### L ACT #### [facility] [address] [place] [address] Dr. Jovanna Oneill DRUG CUT HEADER DRUG CLASS TEST SYSTEM CUT-OFF CONCENTRATIONS ARE FOLLOWS: Normal [facility] Comment on above: Performed By: #### L ACT #### [facility] [address] [place] [address] Dr. Jovanna Oneill mAMP Negative Normal NEGATIVE [facility] Comment on above: Performed By: #### L ACT #### [facility] [address] [place] [address] Dr. Jovanna Oneill MTD Negative Normal NEGATIVE [facility] Comment on above: Performed By: #### L ACT #### [facility] [address] [address] [address] Jovanna Oneill OPI Positive Abnormal NEGATIVE [facility] Comment on above: Performed By: #### L ACT #### [facility] [address] [address] [address] Jovanna Oneill OXY Negative Normal NEGATIVE [facility] Comment on above: Performed By: #### L ACT #### [facility] [address] [address] [address] Jovanna Oneill PCP Negative Normal NEGATIVE [facility] Comment on above: Performed By: #### L ACT #### [facility] [address] [place] [address] Dr. Jovanna Oneill PPX Negative Normal NEGATIVE [facility] Comment on above: Performed By: #### L ACT #### [facility] [address] [place] [address] Dr. Jovanna Oneill TCA Negative Normal NEGATIVE [facility] Comment on above: Performed By: #### L ACT #### [facility] [address] [place] [address] Dr. Jovanna Oneill THC Positive Abnormal NEGATIVE [facility] Comment on above: Performed By: #### L ACT #### [facility] [address] [place] [address] Dr. Jovanna Oneill ER URINE PROFILEon 2 Bilirubin Ql (U) Negative Normal NEGATIVE [facility] Comment on above: Performed By: #### L ACT #### [facility] [address] [place] [address] Dr. Jovanna Oneill Clarity (U) CLEAR Normal CLEAR [facility] Comment on above: Performed By: #### L ACT #### [facility] [address] [place] [address] Dr. Jovanna Oneill Color (U) LT. YELLOW Normal YELLOW [facility] Comment on above: Performed By: #### L ACT #### [facility] [address] [place] [address] Dr. Jovanna Oneill ERUAHHellen A micrscopic examination will be performed if indicated. Normal [facility] Comment on above: Performed By: #### L ACT #### [facility] [address] [address] [address] Jovanna Oneill Glucose Ql (U) Negative Normal NEGATIVE [facility] Comment on above: Performed By: #### L ACT #### [facility] [address] [address] [address] Jovanna Oneill Hemoglobin Ql (U) Negative Normal NEGATIVE [facility] Comment on above: Performed By: #### L ACT #### [facility] [address] [address] [address] Jovanna Oneill Ketones Ql (U) Negative Normal NEGATIVE [facility] Comment on above: Performed By: #### L ACT #### [facility] [address] [place] [address] Dr. Jovanna Oneill LEUKOCYTES Negative Normal NEGATIVE [facility] Comment on above: Performed By: #### L ACT #### [facility] [address] [place] [address] Dr. Jovanna Oneill Nitrite Ql (U) Negative Normal NEGATIVE [facility] Comment on above: Performed By: #### L ACT #### [facility] [address] [place] [address] Dr. Jovanna Oneill pH (U) 6.0 [pH] Normal 5-[address] [facility] Comment on above: Performed By: #### L ACT #### [facility] [address] [place] [address] Dr. Jovanna Oneill SPEC GRAVITY <=1.005 Abnormal 1.005-<=1.025 [facility] Comment on above: Performed By: #### L ACT #### [facility] [address] [place] [address] Dr. Jovanna Oneill UA PROTEIN Negative Normal NEGATIVE/ TRACE [facility] Comment on above: Performed By: #### L ACT #### [facility] [address] [place] [address] Dr. Jovanna Oneill UR MICRO IND NOT INDICATED Normal [facility] Comment on above: Performed By: #### L ACT #### [facility] [address] [place] [address] Dr. Jovanna Oneill Urobilinogen Qn (U) 0.2 {Isabella'U}/dL Normal 0.2 - 1. 0 [facility] Comment on above: Performed By: #### L ACT #### [facility] [address] [place] [address] Dr. Jovanna Oneill CBC AUTO DIFFon 04-20-2022 BASO # 0.0 103/ul Normal 0.0-0.1 [facility] Comment on above: Performed By: #### L ACT #### [facility] [address] [place] [address] Dr. Jovanna Oneill Basophils/100 WBC (Bld) 0.1 % Critically low 0.2-2.[address] [facility] Comment on above: Performed By: #### L ACT #### [facility] [address] [place] [address] Dr. Jovanna Oneill EO # 0.0 103/ul Normal 0.0-0.7 [facility] Comment on above: Performed By: #### L ACT #### [facility] [address] [place] [address] Dr. Jovanna Oneill Eosinophils/100 WBC (Bld) 0.1 % Critically low 0.9-7.[address] [facility] Comment on above: Performed By: #### L ACT #### [facility] [address] [place] [address] Dr. Jovanna Oneill Erythrocyte distribution width (RBC) [Ratio] 12.6 % Normal 11.0-15.0 [facility] Comment on above: Performed By: #### L ACT #### [facility] [address] [place] [address] Dr. Jovanna Oneill Hematocrit (Bld) [Volume fraction] 38.8 % Normal 36.0-48.[address] [facility] Comment on above: Performed By: #### L ACT #### [facility] [address] [place] [address] Dr. Jovanna Oneill Hemoglobin (Bld) [Mass/Vol] 12.6 g/dL Normal 12.0-16.0 [facility] Comment on above: Performed By: #### L ACT #### [facility] [address] [address] [address] Jovanna Oneill IG # 0.13 10e3/ul Critically high 0.00-0.03 [facility] Comment on above: Performed By: #### L ACT #### [facility] [address] [place] [address] Dr. Jovanna Oneill IG % 1.0 % Critically high 0.0-0.5 [facility] Comment on above: Performed By: #### L ACT #### [facility] [address] [place] [address] Dr. Jovanna Oneill LYMPH # 1.1 103/ul Critically low 1.2-3.8 [facility] Comment on above: Performed By: #### L ACT #### [facility] [address] [place] [address] Dr. Jovanna Oneill Lymphocytes/100 WBC (Bld) 8.3 % Critically low 20.5-60.[address] [facility] Comment on above: Performed By: #### L ACT #### [facility] [address] [place] [address] Dr. Jovanna Oneill MANUAL DIFF REQ NO Normal [facility] Comment on above: Performed By: #### L ACT #### [facility] [address] [place] [address] Dr. Jovanna Oneill MCH (RBC) [Entitic mass] 31.0 pg Normal 26.7-34.[address] [facility] Comment on above: Performed By: #### L ACT #### [facility] [address] [place] [address] Dr. Jovanna Oneill MCHC (RBC) [Mass/Vol] 32.5 g/dL Normal 29.9-35.[address] [facility] Comment on above: Performed By: #### L ACT #### [facility] [address] [place] [address] Dr. Jovanna Oneill MCV (RBC) [Entitic vol] 95.3 fL Normal 81.0-99.[address] [facility] Comment on above: Performed By: #### L ACT #### [facility] [address] [address] [address] Jovanna Oneill MONO # 0.8 103/ul Normal 0.3-0.[address] [facility] Comment on above: Performed By: #### L ACT #### [facility] [address] [address] [address] Jovanna Oneill Monocytes/100 WBC (Bld) 5.8 % Normal 1.7-12.[address] [facility] Comment on above: Performed By: #### L ACT #### [facility] [address] [address] [address] Jovanna Oneill NEUT # 11.4 103/ul Critically high 1.4-6.5 [facility] Comment on above: Performed By: #### L ACT #### [facility] [address] [place] [address] Dr. Jovanna Oneill Neutrophils/100 WBC (Bld) 84.7 % Critically high 43.0-75.[address] [facility] Comment on above: Performed By: #### L ACT #### [facility] [address] [address] [address] Jovanna Oneill Platelet mean volume (Bld) [Entitic vol] 10.1 fL Normal 9.5-13.[address] [facility] Comment on above: Performed By: #### L ACT #### [facility] [address] [place] [address] Dr. Jovanna Oneill PLT 205 103/ul Normal 150-450 [facility] Comment on above: Performed By: #### L ACT #### [facility] [address] [address] [address] Jovanna Oneill RBC 4.07 106/ul Critically low 4.20-5.40 [facility] Comment on above: Performed By: #### L ACT #### [facility] [address] [address] [address] Jovanna Oneill WBC 13.4 103/ul Critically high 4.0-11.0 [facility] Comment on above: Performed By: #### L ACT #### [facility] [address] [address] [address] Jovanna Oneill DRUG SCREEN RAPID (URINE)on 04-20-2022 AMP Negative Normal NEGATIVE [facility] Comment on above: Performed By: #### U MICRO, ERUR, DRUGRPD ####[facility] [address] [address]Dr. Jovanna Oneill BAR Negative Normal NEGATIVE [facility] Comment on above: Performed By: #### U MICRO, ERUR, DRUGRPD ####[facility] [address] [address]Dr. Jovanna Oneill BUP Negative Normal NEGATIVE The [facility] Comment on above: Performed By: #### U MICRO, ERUR, DRUGRPD ####[facility] [address] [address]Dr. Jovanna Oneill BZO Negative Normal NEGATIVE The [facility] Comment on above: Performed By: #### U MICRO, ERUR, DRUGRPD ####[facility] [address] [address]Dr. Jovanna Oneill CARA Negative Normal NEGATIVE The [facility] Comment on above: Performed By: #### U MICRO, ERUR, DRUGRPD ####[facility] [address] [address]Dr. Jovanna Oneill CUT-OFFS SEE BELOW Normal [facility] Comment on above: Result Comment: [...] Performed By: #### U MICRO, ERUR, DRUGRPD ####[facility] [address] [place], [place] [address]Dr. Rosaliareagan Oneill DRUG CUT HEADER DRUG CLASS TEST SYSTEM CUT-OFF CONCENTRATIONS ARE FOLLOWS: Normal [facility] Comment on above: Performed By: #### U MICRO, ERUR, DRUGRPD ####[facility] [address] [address]Dr. Jovanna Oneill mAMP Negative Normal NEGATIVE The [facility] Comment on above: Performed By: #### U MICRO, ERUR, DRUGRPD ####[facility] [address] [address]Dr. Jovanna Oneill MTD Negative Normal NEGATIVE The [facility] Comment on above: Performed By: #### U MICRO, ERUR, DRUGRPD ####[facility] [address] [place], [place] [address]Dr. Jovanna Oneill OPI Positive Abnormal NEGATIVE The [facility] Comment on above: Performed By: #### U MICRO, ERUR, DRUGRPD ####[facility] [address] [address]Dr. Jovanna Oneill OXY Negative Normal NEGATIVE The [facility] Comment on above: Performed By: #### U MICRO, ERUR, DRUGRPD ####[facility] [address] [address]Dr. Jovanna Oneill PCP Negative Normal NEGATIVE The [facility] Comment on above: Performed By: #### U MICRO, ERUR, DRUGRPD ####[facility] [address] [address]Dr. Jovanna Oneill PPX Negative Normal NEGATIVE The [facility] Comment on above: Performed By: #### U MICRO, ERUR, DRUGRPD ####[facility] [address] [address]Dr. Jovanna Oneill TCA Negative Normal NEGATIVE The [facility] Comment on above: Performed By: #### U MICRO, ERUR, DRUGRPD ####[facility] [address] [address]Dr. Jovanna Oneill THC Positive Abnormal NEGATIVE The [facility] Comment on above: Performed By: #### U MICRO, ERUR, DRUGRPD ####[facility] [address] [address]Dr. Rosaliareagan Oneill ER URINE PROFILEon 2 Bilirubin Ql (U) Negative Normal NEGATIVE [facility] Comment on above: Performed By: #### U MICRO, ERUR, DRUGRPD ####[facility] [address] [address]Dr. Jovanna Oneill Clarity (U) CLEAR Normal CLEAR The [facility] Comment on above: Performed By: #### U MICRO, ERUR, DRUGRPD ####[facility] [address] [address]Dr. Jovanna Oneill Color (U) LT. YELLOW Normal YELLOW The [facility] Comment on above: Performed By: #### U MICRO, ERUR, DRUGRPD ####[facility] [address] [place], [place] [address]Dr. Jovanna Oneill ERUAHD A micrscopic examination will be performed if indicated. Normal [facility] Comment on above: Performed By: #### U MICRO, ERUR, DRUGRPD ####[facility] [address] [place], [place] [address]Dr. Jovanna Oneill Glucose Ql (U) >1000 Abnormal NEGATIVE The [facility] Comment on above: Performed By: #### U MICRO, ERUR, DRUGRPD ####[facility] [address] [place], [place] [address]Dr. Jovanna Oneill Hemoglobin Ql (U) Negative Normal NEGATIVE The [facility] Comment on above: Performed By: #### U MICRO, ERUR, DRUGRPD ####[facility] [address] [address]Dr. Jovanna Oneill Ketones Ql (U) Negative Normal NEGATIVE [facility] Comment on above: Performed By: #### U MICRO, ERUR, DRUGRPD ####[facility] [address] [place], [place] [address]Dr. Rosalialan Oneill LEUKOCYTES Negative Normal NEGATIVE The [facility] Comment on above: Performed By: #### U MICRO, ERUR, DRUGRPD ####[facility] [address] [place], [place] [address]Dr. Jovanna Oneill Nitrite Ql (U) Negative Normal NEGATIVE [facility] Comment on above: Performed By: #### U MICRO, ERUR, DRUGRPD ####[facility] [address] [address]Dr. Jovanna Oneill pH (U) 6.5 [pH] Normal 5-9 [facility] Comment on above: Performed By: #### U MICRO, ERUR, DRUGRPD ####[facility] [address] [address]Dr. Jovanna Oneill Protein (U) [Mass/Vol] 30 mg/dL Abnormal NEGATIVE/ TRACE The [facility] Comment on above: Performed By: #### U MICRO, ERUR, DRUGRPD ####[facility] [address] [address]Dr. Jovanna Oneill SPEC GRAVITY 1.015 Normal 1.005-<=1.025 [facility] Comment on above: Performed By: #### U MICRO, ERUR, DRUGRPD ####[facility] [address] [address]Dr. Jovanna Oneill UR MICRO IND INDICATED Normal [facility] Comment on above: Performed By: #### U MICRO, ERUR, DRUGRPD ####[facility] [address] [address]Dr. Jovanna Oneill Urobilinogen Qn (U) 1.0 {Isabella'U}/dL Normal 0.2 - 1. [address] [facility] Comment on above: Performed By: #### U MICRO, ERUR, DRUGRPD ####[facility] [address] [address]Dr. Jovanna Oneill LACTATE/LACTIC ACIDon 2021 Lactate [Moles/Vol] 1.7 mmol/L Normal 0.4-1.9 [facility] Comment on above: Performed By: #### L ACT #### [facility] [address] [address] [address] Jovanna Oneill PROF 14(COMP METB)on 022 Albumin [Mass/Vol] 3.4 g/dL Normal 3.4-5.0 [facility] Comment on above: Performed By: #### V ITB12 #### [facility] [address] [place] [address] Dr. Jovanna Oneill Albumin/Globulin [Mass ratio] 1.1 {ratio} Normal [facility] Comment on above: Performed By: #### V ITB12 #### [facility] [address] [place] [address] Dr. Jovanna Oneill ALP [Catalytic activity/Vol] 99 U/L Normal 46-[address] [facility] Comment on above: Performed By: #### V ITB12 #### [facility] [address] [place] [address] Dr. Jovanna Oneill ALT [Catalytic activity/Vol] 32 U/L Normal 14-[address] [facility] Comment on above: Performed By: #### V ITB12 #### [facility] [address] [place] [address] Dr. Jovanna Oneill Anion gap [Moles/Vol] 10.0 mmol/L Normal [facility] Comment on above: Performed By: #### V ITB12 #### [facility] [address] [place] [address] Dr. Jovanna Oneill AST [Catalytic activity/Vol] 38 U/L Critically high 15-[address] [facility] Comment on above: Performed By: #### V ITB12 #### [facility] [address] [place] [address] Dr. Jovanna Oneill Bilirubin [Mass/Vol] 0.8 mg/dL Normal 0.2-1.[address] [facility] Comment on above: Performed By: #### V ITB12 #### [facility] [address] [address] [address] Jovanna Oneill Calcium [Mass/Vol] 8.1 mg/dL Critically low 8.5-10.1 [facility] Comment on above: Performed By: #### V ITB12 #### [facility] [address] [place] [address] Dr. Jovanna Oneill Chloride [Moles/Vol] 102 mmol/L Normal 98-[address] [facility] Comment on above: Performed By: #### V ITB12 #### [facility] [address] [address] [address] Jovanna Oneill CO2 [Moles/Vol] 31.1 mmol/L Normal 21.0-32.0 [facility] Comment on above: Performed By: #### V ITB12 #### [facility] [address] [address] [address] Jovanna Oneill Creatinine [Mass/Vol] 0.78 mg/dL Normal 0.55-1.[address] [facility] Comment on above: Performed By: #### V ITB12 #### [facility] [address] [place] [address] Dr. Jovanna Oneill EGFR-AF KYRGYZ >60 Normal >=60 [facility] Comment on above: Performed By: #### V ITB12 #### [facility] [address] [place] [address] Dr. Jovanna Oneill EGFR-NON AF KYRGYZ >60 Normal >=[address] [facility] Comment on above: Performed By: #### V ITB12 #### [facility] [address] [address] [address] Jovanna Oneill Globulin (S) [Mass/Vol] 3.2 g/dL Normal [facility] Comment on above: Performed By: #### V ITB12 #### [facility] [address] [address] [address] Jovanna Oneill Glucose [Mass/Vol] 251 mg/dL Critically high 74-106 [facility] Comment on above: Performed By: #### V ITB12 #### [facility] [address] [address] [address] Jovanna Oneill Potassium [Moles/Vol] 3.1 mmol/L Critically low 3.5-5.[address] [facility] Comment on above: Performed By: #### V ITB12 #### [facility] [address] [place] [address] Dr. Jovanna Oneill Protein [Mass/Vol] 6.6 g/dL Normal 6.4-8.2 [facility] Comment on above: Performed By: #### V ITB12 #### [facility] [address] [address] [address] Jovanna Oneill Sodium [Moles/Vol] 140 mmol/L Normal 136-145 [facility] Comment on above: Performed By: #### V ITB12 #### [facility] [address] [address] [address] Jovanna Oneill Urea nitrogen [Mass/Vol] 8.0 mg/dL Normal 7.0-18.[address] [facility] Comment on above: Performed By: #### V ITB12 #### [facility] [address] [address] [address] Jovanna Oneill Urea nitrogen/Creatinine [Mass ratio] 10.3 mg/mg Normal [facility] Comment on above: Performed By: #### V ITB12 #### [facility] [address] [address] [address] Jovanna Oneill TROPONIN, HIGH SENSITIVITYon 04-20-2022 HSTROP 13.8 pg/mL Normal 4.0-51.[address] [facility] Comment on above: Result Comment: CUT- OFF POINTS HAVE BEEN ESTABLISHED BASED ON THE FOURTH UNIVERSAL DEFINITIONS OF MYOCARDIAL INFARCTION. THE UPPER REFERENCE LIMIT (URL) OF TROPONIN, DEFINED THE 99TH PERCENTILE OF cTnI DISTRIBUTION IN A REFERENCE POPULATION, HAS BEEN CONFIRMED THE DECISION THRESHOLD FOR [place] DIAGNOSIS. Performed By: #### V ITB12 #### [facility] [address] [address] [address] Jovanna Oneill URINE MICROSCOPIC ONLYon BACTERIA TRACE Abnormal NONE SEEN [facility] Comment on above: Performed By: #### U MICRO, ERUR, DRUGRPD ####[facility] [address] [address]Dr. Jovanna Oneill Bacteria identified Cx Nom (U) NOT INDICATED Normal [facility] Comment on above: Performed By: #### U MICRO, ERUR, DRUGRPD ####[facility] [address] [id number]. Jovanna Oneill CAST SEEN Abnormal NONE SEEN [facility] Comment on above: Performed By: #### U MICRO, ERUR, DRUGRPD ####[facility] [address] [address]Dr. Jovanna Oneill Crystals LM Nom (Urine sed) NONE SEEN Normal NONE SEEN [facility] Comment on above: Performed By: #### U MICRO, ERUR, DRUGRPD ####[facility] [address] [address]Dr. Jovanna Oneill Epithelial cells LM Ql (Urine sed) FEW Abnormal NONE SEEN /RARE [facility] Comment on above: Performed By: #### U MICRO, ERUR, DRUGRPD ####[facility] [address] [address]Dr. Jovanna Oneill HYALINE CAST FEW Normal [facility] Comment on above: Performed By: #### U MICRO, ERUR, DRUGRPD ####[facility] [address] [address]Dr. Jovanna Oneill MUCOUS NONE SEEN Normal NONE SEEN [facility] Comment on above: Performed By: #### U MICRO, ERUR, DRUGRPD ####[facility] [address] [address]Dr. Jovanna Oneill RBC 0-2 Normal 0-2 [facility] Comment on above: Performed By: #### U MICRO, ERUR, DRUGRPD ####[facility] [address] [address]. Jovanna Oneill WBC 0-2 Abnormal NONE SEEN [facility] Comment on above: Performed By: #### U MICRO, ERUR, DRUGRPD ####[facility] [address] [address]Dr. Jovanna Oneill XR CHEST 1 Von 04-20-2022 [...] by: Ayaka LEON Date: 2022-04-20 02:[address] [facility] XR ANKLE RT MIN 3 [...] by: KOBE HICKEY Date: 2022-03-26 09:[address] [facility] Encounters Encounter Date Encounter Type Care Provider Facility Start: 07-10-2024 End: 07-11-2024 ambulatory Vikram Mckenna MD Facility:[facility] Start: 06-30-2024 End: 07-02-[address] [facility] Start: 06-09-2024 End: 06-11-[address] [facility] Start: 05-26-2024 ambulatory [facility] Start: 05-26-2024 Encounter for other preprocedural examination [facility] Start: 03-23-2023 End: 03-23-2023 ambulatory ABDULKADIR WALTON [...] SHAMMO Facility:[facility] Start: 11-01-2022 ambulatory TATUM SHAMMO Facility: [facility] Start: 10-08-2022 End: 10-08-2022 ambulatory TATUM SHAMMO Facility:[facility] Start: 10-06-2022 ambulatory Woo FALCON Facility :[facility] Start: 10-03-2022 End: 10-04-2022 ambulatory TATUM SHAMMO Facility:[facility] Start: 09-14-2022 Encounter for genera l adult medical examination without abnormal findings TATUM SHAMMO [facility] Start: 09-12-2022 End: 09-13-2022 ambulatory [...] ALIA Facility:[facility] Start: 06-22-2022 End: 06-22-2022 ambulatory [facility] Facility:[facility] Start: 05-02-2022 End: 05-02-2022 ambulatory [facility] Facility:[facility] Start: 04-20-2022 End: 04-20-2022 ambulatory CAROL ANN ALIA Facility:[facility] Start: 03-26-2022 End: 03-26-2022 ambulatory DARRIN PEREZ . Facility:[facility] Payers Date Payer Category Payer Unknown 1975 Unknown [id number] 2.16.8 [id number] 1975 Unknown [id number] 2.16.8 40.1.181450.3.579.2.727 1975 Unknown [id number] 2.16.84 0.1.517308.3.579.2.593 1973 Unknown [id number] 2.16.84 0.1.614657.3.579.2.593 1973 Unknown [id number] 2.16.84 0.1.722302.3.579.2.593 1973 Unknown [id number] 2.16.84 0.1.794117.3.579.2.593 1973 Unknown [id number] 2.16.84 0.1.256361.3.579.2.593 1973 Unknown [id number] 2.16.84 0.1.207227.3.579.2.593 1973 Unknown [id number] 2.16.84 0.1.380962.3.579.2.593 1973 Unknown [id number] 2.16.84 0.1.632350.3.579.2.593 1973 Unknown [id number] 2.16.84 0.1.566753.3.579.2.593 1973 Unknown [id number] 2.16.84 0.1.146696.3.579.2.593 1973 Unknown [id number] 2.16.84 0.1.158672.3.579.2.593 1973 Unknown [id number] 2.16.84 0.1.035384.3.579.2.593 1973 Unknown [id number] 2.16.84 0.1.784651.3.579.2.593 1973 Unknown [id number] 2.16.84 0.1.878173.3.579.2.593 1973 Unknown [id number] 2.16.84 0.1.489822.3.579.2.593 1973 Unknown [id number] 2.16.84 0.1.295820.3.579.2.593 1973 Unknown [id number] 2.16.84 0.1.484862.3.579.2.593 1973 Unknown [id number] 2.16.84 0.1.531129.3.579.2.593 1973 Unknown [id number] 2.16.84 0.1.660452.3.579.2.593 1973 Unknown [id number] 2.16.84 0.1.884510.3.579.2.593 1973 Unknown [id number] 2.16.84 0.1.595418.3.579.2.593 1973 Unknown [id number] 2.16.84 0.1.964570.3.579.2.593 1973 Unknown [id number] 2.16.8 40.1.881707.3.579.2.174 1973 Unknown [id number] 2.16.8 40.1.403501.3.579.2.174 1973 Unknown [id number] 2.16.8 40.1.986025.3.579.2.174 1973 Unknown [id number] 2.16.8 40.1.114422.3.579.2.174 1973 Unknown [id number] 2.16.8 40.1.189908.3.579.2.174 1973 Unknown [id number] 2.16. 840.1.115223.3.579.2.196 1959 Self-pay [id number] 1959 Unknown [id number] 1961 Unknown [id number] Discharge summary note 07-11-2024 Note Date & Type Note Facility 07-11-2024 Note Admission Informatio n Patient: Kati Thorne : 1975 Date of Admission: 07/10/2024 11:21:35 Date of Discharge: Code Status: Full Resuscitation PCP: Consult: Santo Recinos DO 48 yr old lady who is an active smoker --underwent her right index finger distal phalanx amputation for necrosis and infection ( through mid phalanx per op note )--intraoperatively and post operatively her blood pressures were 190s and pain was not in control --thus it was decided to admit her for further evaluation under hospitalist team Active issues during hospitalization were as follows ## uncontrolled htn 200s(pain driven and possibly had underlying untreated htn )--add low dose beta blockers and pain was controlled -will be discharged today evening --to fu with pcp ## intractable pain in her finger post operatively -better managed now -wants to go home ## sp right index distal phalanx finger amputation for necrosis and infection by dr recinos ( though middle phalanx ) on the June per op note--> dc pt on cefdinir 300 bid x 5 days (she is already on doxy per ortho team it seems --defer that to them ) ## active smoker --counseled against ## hypokalemia -replaced aggresively --recheck at 4 pm --> if around 3.5--dc pt --to fu with pcp discussion did well bp better though still has some pain no wheezing with beta blockers mssa growing in her cultures thanks to fu with pcp to fu with ortho non wt bearing on that extremity per ortho note (op note ) Discharge Time Spent with Patient: less than 30 minutes Medications New Medications [facility] [facility], [address] [place], [place] [id number], [phone] cefdinir (cefdinir 300 mg oral capsule) 1 Capsules Oral (given by mouth) 2 times a day for 5 Days. Refills: 0. Last Dose: metoprolol (metoprolol tartrate 25 mg oral tablet) 25 Milligram Oral (given by mouth) 2 times a day for 30 Days. Refills: 1. Last Dose: Medications That Have Not Changed Other Medications doxycycline (doxycycline hyclate 100 mg oral capsule) 1 Capsules Oral (given by mouth) 2 times a day. Last Dose: oxyCODONE-acetaminophen (oxyCODONE-acetaminophen 5 mg-325 mg oral tablet) 1 Tabs Oral (given by mouth) every 6 hours as needed as needed for pain. Last Dose: potassium chloride (potassium chloride 20 mEq oral tablet, extended release) 2 Tabs Oral (given by mouth) 2 times a day. Last Dose: Patient Discharge Condition good Discharge Disposition home Procedure/Surgical History Tonsillectomy Hysterectomy History of laparoscopy Colonoscopy Cholecystectomy Appendectomy PIN FINGER FRACTURE EACH (06/02/2024) Amputation Finger (Right, F Index) (07/10/2024) Electronically signed by Vikram Mckenna MD 07/11/24 11:37 EDT [facility] History and physical note 07-10-2024 Note Date & Type Note Facility 07-10-2024 Note Chief Complaint bp around 190s and pain after surgery Assessment/Plan 48 yr old lady who is an active smoker --underwent her right index finger distal phalanx amputation for necrosis and infection ( through mid phalanx per op note )--intraoperatively and post operatively her blood pressures were 190s and pain was not in control --thus it was decided to admit her for further evaluation under hospitalist team on my evaluation at around 6.45 pm on 6th floor she was in excruciating pain bp was around 200s active issues ## uncontrolled htn 200s(pain driven and possibly had underlying untreated htn ) ## intractable pain ## sp right index distal phalanx finger amputation for necrosis and infection by dr recinos ( though middle phalanx ) on the June per op note ## active smoker --at this time too much in pain --will field counsel in am discussion pain control , start beta blockers , fine tune , hydralazine prn empiric abx for now dvt prophylaxis Code Status: Full Resuscitation History of Present Illness 48 yr old lady who is an active smoker --underwent her right index finger distal phalanx amputation for necrosis and infection ( through mid phalanx per op note )--intraoperatively and post operatively her blood pressures were 190s and pain was not in control --thus it was decided to admit her for further evaluation under hospitalist team on my evaluation at around 6.45 pm on 6th floor she was in excruciating pain bp was around 200s Review of Systems all systems were reviewed and all of them were negative except for the ones mentioned earlier . Objective middle aged lady in a lot of pain Pupils equally reacting to light and accommodation Neck supple no JVD no thyromegaly Heart exam S1-S2 normal no murmurs no rubs no gallops Lung exam?good air entry bilaterally no wheezing no crackles Abdomen?soft bowel sounds present no guarding no rigidity Extremities no edema no cyanosis no ulcerations right finger dressing dry and intact Neurologically AOx3 nonfocal exam Vitals & Measurements T: 37 ?C (Temporal Artery) TMIN: 36.7 ?C (Temporal Artery) TMAX: 37 ?C (Temporal Artery) HR: 73 (Peripheral) RR: 22 BP: 209/109 SpO2: 95% HT: 160 cm HT: 154.94 cm WT: 46.2 kg WT: 46.2 kg (Dosing) BMI: 18.05 BMI: 19.24 Additional Vitals No qualifying data available. Problem List/Past Medical History Ongoing Anxiety and depression Asthma Chronic obstructive pulmonary disease (COPD) Deafness in right ear History of kidney stones HTN (hypertension) Hypothyroidism Open wound of finger of right hand Historical No qualifying data Degree of Malnutrition: No qualifying data available. Procedure/Surgical History Tonsillectomy Hysterectomy History of laparoscopy Colonoscopy Cholecystectomy Appendectomy PIN FINGER FRACTURE EACH (06/02/2024) Amputation Finger (Right, F Index) (07/10/2024) Medications Inpatient acetaminophen, 650 mg, Oral, q6hr, PRN acetaminophen, 650 mg, Oral, q6hr, PRN Dilaudid, 0.5 mg= 0.5 mL, IV Push, q4hr, PRN doxycycline hyclate, 100 mg, Oral, BID enoxaparin, 40 mg= 0.4 mL, Subcutaneous, Daily hydrALAZINE, 10 mg= 0.5 mL, IV Push, [id number] Times, PRN LR 1,000 mL, 1000 mL, IV metoprolol tartrate, 25 mg, Oral, BID naloxone, 0.4 mg= 1 mL, IV Push, q2min, PRN Normal Saline Flush 0.9% injectable solution, 10 mL, IV Push, As Indicated, PRN Normal Saline Flush 0.9% injectable solution, 10 mL, IV Push, BID ondansetron, 4 mg= 2 mL, IV Push, q4hr, PRN traMADol, 50 mg, Oral, q6hr, PRN Home doxycycline hyclate 100 mg oral capsule, 100 mg= 1 caps, Oral, BID oxyCODONE-acetaminophen 5 mg-325 mg oral tablet, 1 tabs, Oral, q6hr, PRN potassium chloride 20 mEq oral tablet, extended release, 40 mEq= 2 tabs, Oral, BID Allergies No Known Allergies No Known Medication Allergies Social History Alcohol Never Employment/School Disability Exercise Exercise type: None. Home/Environment Lives with Dad, daughter, grandchild, daughter's boyfriend. Living situation: Home/Independent. Nutrition/Health Regular Substance Abuse Current, Marijuana, Several times per day Tobacco 10 or more cigarettes (1/2 pack or more)/day in last 30 days Use:. Cigarettes, 0.5 per day. Cigarettes, Started age 13 Years. Lab Results No qualifying data available Microbiology - Current Encounter No qualifying data available. Diagnostic Results Diagnostic Radiology XR Finger 2nd Digit Right 07/10/24 16:56:32 IMPRESSION: Signed By: Jacklyn Alanis MD Electronically signed by Vikram Mckenna MD 07/10/24 19:12 EDT [facility] Clinical Note 07-10-2024 Note Date & Type Note Facility 07-10-2024 Note Clinical Information Procedure: RIGHT INDEX FINGER I&D, POSSIBLE AMPUTATION Pre-operative diagnosis: POST OP INFECTION SP Specimen A RIGHT INDEX FINGER B RIGHT INDEX FINGER BONE Gross Description Part A: Received in formalin labeled 'right index finger' is the tip of the finger with a hard light an finger nail, measuring 2.0 x 1.5 x 1.3 cm. Located on the plantar surface of the finger, there is a probable light joy ulcer, measuring 0.5 x 0.4 x 0.1 cm, which is located 1.5 cm from the skin margin. This ulcer is entirely submitted in cassette A1. Section of bone underlying this ulcer is submitted in cassette A2. The skin margin is submitted in cassette A3. The bone margin is submitted in cassette A4. The specimen is submitted for decalcification in Immunocal. Part B: Received in formalin labeled 'right index finger bone' are four pieces of light joy bone, measuring in aggregate 0.9 x 0.8 x 0.7 cm. Fragments of bone measure 0.4 x 0.3 x 0.1 cm to 0.9 x 0.5 x 0.3 cm. The specimen is submitted entirely in cassette B1 after decalcification in Immunocal. Microscopic Description Part A: Sections of the bone show focal bone necrosis, remodeling and features of chronic osteomyelitis. The adjacent tissue shows necrosis with acute and chronic inflammation and foreign body type giant cell reaction. There is no evidence of malignancy. Part B: Sections show fragments of bone demonstrating necrosis with acute and chronic inflammation. Morphologic features are consistent with osteomyelitis. Diagnosis Part A: Right index finger, amputation: Focal bone necrosis and features of osteomyelitis. Adjacent soft tissue with focal necrosis, acute and chronic inflammation and foreign body-type giant cell reaction. Part B: Bone, right index finger, excision: Consistent with osteomyelitis. [id number] Raul Davidson MD PhD (Electronically signed by) Verified: 07/16/24 13:53 [facility] Comment on above: Performed By: #### S BS #### [facility] (DEFAULT) [address] [place] [address] [facility] [address] [place] [address] Clinical Note 03-05-2023 Note Date & Type [...] by: FRANCES AGUSTIN Date: 2023-03-05 11:36 [facility] Clinical Note 08-30-2022 Note Date [...] by: FRANCES AGUSTIN Date: 2022-08-30 10:20 [facility] Clinical Note 08-30-2022 Note Date [...] by: FRANCES AGUSTIN Date: 2022-08-30 10:20 [facility] Clinical Note 06-22-2022 Note Date [...] authenticated by: RJ YANEZ Date: 2022-06-22 07:[address] [facility] Clinical Note 06-22-2022 Note Date [...] authenticated by: RJ YANEZ Date: 2022-06-22 07:[address] [facility] Summary Purpose Family History No Family History Records FoundNo Family History Records FoundNo Family History Records FoundNo Family History Records Found Advance Directives No Advanced Directives Records FoundNo Advanced Directives Records FoundNo Advanced Directives Records FoundNo Advanced Directives Records Found Additional Source Comments INFORMATION SOURCE (unrecogn ized section and content) DATE CREATED AUTHOR 10/24/2022 [facility] DATE CREATED AUTHOR AUTHOR'S ORGANIZ ATION 03/24/2023 [facility] DATE CREATED AUTHOR AUTHOR'S ORGANIZ ATION [facility] DATE CREATED AUTHOR AUTHOR'S ORGANIZ ATION 07/18/2024 [facility] FOR RECORDS PERTAINING TO PATIENTS WHO ARE [...] BE BASED ON THE PRIMARY CLINICAL RECORDS. [employer] provides no warranty or guarantee of the accuracy or completeness of information in this document.
--- NOTE | 2024-07-18 22:02 | ED.UPPEXIN1 ---
HPI HPI - Extremity Injury (Upper) General Chief Complaint: Extremity Injury, Upper Stated Complaint: BP AND PAIN, RECENT SURGERY Time Seen by Provider: 07/18/24 21:49 Source: patient Mode of arrival: walk-in Limitations: no limitations History of Present Illness HPI narrative: partial amputation right index finger about one week ago. States she does not have a follow up appointment with the hand surgeon for another 10 days. complains of burning pain of the finger and wanted to have it evaluated. No fever. Has dressing in place . States she never removed the dressing. No fever , chills or gen. weakness. Also started on metoprolol for her BP. States her BP was elevated at home. BP is normal here. Related Data Home Medications ?Medication ?Instructions ?Recorded ?Confirmed levothyroxine 25 mcg capsule 25 mcg PO DAILY 05/28/24 06/08/24 oxycodone-acetaminophen 5 mg-325 1 tab PO Q6H PRN pain 05/28/24 06/08/24 mg tablet sulfamethoxazole 800 1 tab PO BID 05/28/24 06/08/24 mg-trimethoprim 160 mg tablet (Bactrim DS) Previous Rx's ?Medication ?Instructions ?Recorded budesonide-formoterol HFA 80 2 inh inhalation BID #10.2 grams 04/25/24 mcg-4.5 mcg/actuation aerosol inhaler losartan 100 1 tab PO DAILY 30 days #30 tabs 04/25/24 mg-hydrochlorothiazide 25 mg tablet pantoprazole 40 mg tablet,delayed 40 mg PO BID 30 days #60 tabs 04/25/24 release Allergies Allergy/AdvReac Type Severity Reaction Status Date / Time No Known Drug Allergies Allergy Verified 07/18/24 21:19 Opioid HPI Opioid Management Most Recent Pain and Opioid Data: Last Pain Scale 7 07/18/24 22:37 Last ED Pain Assessment 07/18/24 21:42 Review of Systems ROS Status of ROS 10 or more systems reviewed and unremarkable except as noted in history and below [facility] Medical History (Updated 07/18/24 @ 22:09 by Kike Carrera MD) Full dentures ?Z97.2 - Presence of dental prosthetic device (complete) (partial) (ICD-10) ?K08.109 - Complete loss of teeth, unspecified cause, unspecified class (ICD-10) Neck pain ?M54.2 - Cervicalgia (ICD-10) Depression ?F32.A - Depression, unspecified (ICD-10) Anxiety ?F41.9 - Anxiety disorder, unspecified (ICD-10) Asthma ?J45.909 - Unspecified asthma, uncomplicated (ICD-10) Chronic obstructive pulmonary disease ?J44.9 - Chronic obstructive pulmonary disease, unspecified (ICD-10) Migraine ?G43.909 - Migraine, unspecified, not intractable, without status migrainosus (ICD-10) Kidney stones ?N20.0 - Calculus of kidney (ICD-10) GERD (gastroesophageal reflux disease) ?K21.9 - Gastro-esophageal reflux disease without esophagitis (ICD-10) Hypothyroidism ?E03.9 - Hypothyroidism, unspecified (ICD-10) Hiatal hernia ?K44.9 - Diaphragmatic hernia without obstruction or gangrene (ICD-10) Colon polyp ?K63.5 - Polyp of colon (ICD-10) Ovarian cyst ?N83.209 - Unspecified ovarian cyst, unspecified side (ICD-10) Endometriosis ?N80.9 - Endometriosis, unspecified (ICD-10) Hypertension ?I10 - Essential (primary) hypertension (ICD-10) Back pain ?M54.9 - Dorsalgia, unspecified (ICD-10) Chronic neck pain ?M54.2 - Cervicalgia (ICD-10) ?G89.29 - Other chronic pain (ICD-10) Open fracture of right hand ?S62.91XB - Unspecified fracture of right wrist and hand, initial encounter for open fracture (ICD-10) Anxiety and depression ?F41.9 - Anxiety disorder, unspecified (ICD-10) ?F32.A - Depression, unspecified (ICD-10) HTN (hypertension) ?I10 - Essential (primary) hypertension (ICD-10) Bulging of cervical intervertebral disc ?M50.30 - Other cervical disc degeneration, unspecified cervical region (ICD-10) Osteoporosis ?M81.0 - Age-related osteoporosis without current pathological fracture (ICD-10) Surgical History (Updated 05/28/24 @ 13:04 by Monique Benson NP) History of tonsillectomy ?Z90.89 - Acquired absence of other organs (ICD-10) History of colonoscopy ?Z98.890 - Other specified postprocedural states (ICD-10) History of esophagogastroduodenoscopy (EGD) ?Z98.890 - Other specified postprocedural states (ICD-10) History of laparoscopy ?Z98.890 - Other specified postprocedural states (ICD-10) History of appendectomy ?Z90.49 - Acquired absence of other specified parts of digestive tract (ICD-10) History of hysterectomy ?Z90.710 - Acquired absence of both cervix and uterus (ICD-10) History of cholecystectomy ?Z90.49 - Acquired absence of other specified parts of digestive tract (ICD-10) Family History (Updated 05/28/24 @ 13:04 by Monique Benson NP) Other Brain tumor Cancer Family history of aneurysm Family history of diabetes mellitus Family history of hypertension Social History (Updated 05/28/24 @ 12:57 by Monique Benson NP) Within the past year, how often did you have a drink containing alcohol: never Score interpretation: A score less than 3 is consistent with normal alcohol consumption. Smoking status: Current every day smoker What tobacco products do you use: cigarettes Cigarettes per day: 30 Years smoked: 36 Smoking pack-years: 54.00 Non-prescribed substance use: cannabis (any form) Highest level of school completed/degree received: 11th grade Little interest or pleasure in doing things: not at all Feeling down, depressed, or hopeless: not at all Exam Constitutional Vital Signs, click to edit/add: Last Vital Signs Temp 98.4 F 07/18/24 21:19 Pulse 80 07/18/24 21:19 Resp 18 07/18/24 21:19 BP 128/95 H 07/18/24 21:19 Pulse Ox 96 07/18/24 21:19 O2 Del Method Room Air 07/18/24 21:19 Common normals: no apparent distress, oriented x3, no limitations, healthy appearing, alert and well nourished [facility] Common normals: normocephalic and head/scalp atraumatic Eye Common normals: EOMs intact bilaterally and conjunctivae normal Respiratory Common normals: normal respiratory effort, no retractions, no use of accessory muscles and clear to auscultation bilaterally Cardio Common normals: regular rate, regular rhythm, S1 normal heart sound and S2 normal heart sound Extremity Other: dressing removed right index finger. has old dried blood on dressing . No drainage. finger without swelling or erythema. Stitches and steri strips in place. Neuro Common normals: oriented x3, CN's II-XII intact bilaterally, moves all extremities, no focal motor deficits and no sensory deficits noted Psych Appearance: grossly normal Course Vital Signs Vital signs: Vital Signs Temperature 98.4 F 07/18/24 21:19 Pulse Rate 80 07/18/24 21:19 Respiratory Rate 18 07/18/24 21:19 Blood Pressure 128/95 H 07/18/24 21:19 Pulse Oximetry 96 07/18/24 21:19 Oxygen Delivery Method Room Air 07/18/24 21:19 Temperature 98.4 F 07/18/24 21:19 Pulse Rate 80 07/18/24 21:19 Respiratory Rate 18 07/18/24 21:19 Blood Pressure 128/95 H 07/18/24 21:19 Pulse Oximetry 96 07/18/24 21:19 Oxygen Delivery Method Room Air 07/18/24 21:19 MDM - Extremity Injury (Upper) MDM Narrative Medical decision making narrative: patient presents complaining of a burning pain of her right index finger s/p partial amputation about one week ago. patient describes crush injury to the finger that had become gangrenous. Her finger is healing well withoutany sign of infection. Patient reassured . Finger re dressed by nursing and patient discharged home and advised to keep appointment with her surgeon. She is complaining of pain and was provided with a couple of [place] for pain tonight Discharge Plan Discharge Chief Complaint: Extremity Injury, Upper Clinical Impression: Post-operative pain Patient Disposition: Home, Self-Care Prescriptions / Home Meds: No Action budesonide-formoterol 80-4.5 mcg/actuation HFA aerosol inhaler 2 inh inhalation BID Qty: 10.2 0RF losartan-hydrochlorothiazide 100-25 mg tablet 1 tab PO DAILY 30 Days Qty: 30 0RF pantoprazole 40 mg tablet,delayed release (DR/EC) 40 mg PO BID 30 Days Qty: 60 0RF oxycodone-acetaminophen 5-325 mg tablet 1 tab PO Q6H PRN (Reason: pain) sulfamethoxazole-trimethoprim [Bactrim DS] 800-160 mg tablet 1 tab PO BID levothyroxine 25 mcg capsule 25 mcg PO DAILY Print Language: Indonesian Instructions: Finger Amputation (ED) Additional Instructions: follow up with your surgeon. Call office sunday. keep finger clean and dry Referrals: Physician,Non-Staff, MD [Primary Care Provider] - 1 week Discharge Date/Time: 07/18/24 23:04
[2024-07-18] MEDS: HYDROCODONE/ACET 5-325 MG TABLET 2 TAB PO (22:37)
== END 2024-07-18 23:04 | disposition home or self-care (01) ==
PROVIDERS: Emergency Provider Internal Medicine
DX: G89.18 Other acute postprocedural pain (principal); M79.644 Pain in right finger(s); F17.210 Nicotine dependence, cigarettes, uncomplicated
CPT/HCPCS: 99283

== ENCOUNTER 2024-09-08 13:30 | Outpatient (OUT) | payer OTHER, SELFPAY ==
--- NOTE | 2024-09-08 | XR_ITS ---
The [address] [address] Patient Name: SULY THORNE MRN: [id number] date: 1975 Sex: F Assigned Patient Location: Current Patient Location: Accession/Order Number: [id number] Exam Date: 09/08/2024 13:32 Report Date: 09/10/2024 06:59 At the request of: SANTO LOPEZ Procedure: XR finger RT min 2V PROCEDURE: XR finger RT min 2V HISTORY: RIGHT FINGER PAIN COMPARISON: XR finger right 07/10/2024, XR hand right 05/18/2024 FINDINGS: BONES:Recent amputation of the second digits at the level of the mid middle phalanx. No cortical destruction, periosteal reaction, or fracture. SOFT TISSUES:Soft tissue swelling at tip of second digit. EFFUSION:None visible. OTHER: Negative. XR/XR finger RT min 2V IMPRESSION: 1. Expected post amputation changes of second digit. No acute bone abnormality or evidence of osteomyelitis. 2. Soft tissue swelling. Electronically authenticated by: FRANCES AGUSTIN Date: 09/10/2024 06:59
--- OUTSIDE RECORDS SUMMARY | 2024-09-08 13:40 | XMS_ITS | CCD ---
Author Organization [facility] Team Providers Care Trials Manager Name Role Phone Woo FALCON Attending Unavailable SHAMMO, TATUM Referring Unavailable SHAMMO, TATUM Referring Unavailable NILLWoo Attending Unavailable LAKSHMIPATHY ., NARENDRANATH Admitting Birdie [...] JIMMY Consulting Unavailable SANTO RECINOS Referring Unavailable RECINOS, SANTO Garcia Admitting Unavailable RECINOSSANTO LEIJA Attending Unavailable SANTO RECINOS Referring Unavailable SANTO RECINOS Referring Unavailable SANTO RECINOS Referring Unavailable Vikram Mckenna MD Attending Unavailable Vikram Mckenna MD Admitting Unavailable Unavailable, Physician Primary Care Unavailab Santo Ferro DO Consulting Unavailabl e NO FAMILY, PHYSICIAN Primary Care Provider LEXI Rodriguez Emergency Provider Zackery Griggs Attending Unavailable Zackery Griggs Admitting Unavailable NO FAMILY, PHYSICIAN Primary Care Unavailable Allergies Allergy Classification Reported Allergen(s) Allergy Type Date of Onset Reaction(s) Facility (2 sources) No Known Medication Allergies; Translations: [No Known Medication Allergies] Propensity to adverse reactions (disorder) [facility] Repository Problems Active Problems Problem Classification Problem [...] 01-15-2023 Chronic Other aftercare (1 source) Other retirement (current) drug therapy; Translations: [OTH [facility] CURRENT DRUG THERAPY] Onset: 02-26-2023 Episodic Other connective tissue disease (4 sources) Pain in right hand; Translations: [PAIN IN RIGHT HAND] Onset: 03-05-2023 Episodic Other connective tissue disease (1 source) Pain in finger; Translations: [Pain in unspecified finger(s)] 08-13-2024 Episodic Other connective tissue disease (1 source) Pain in right finger(s); Translations: [Pain in right finger(s)] Onset: 08-13-2024 Episodic Other nervous system disorders (1 source) [...] Test Name Value Interpretation Reference Range Facility [facility] 07-13-2024 C NOE - ---- Final No anaerobic growth after 72 hrs. [facility] Comment on above: Performed By: #### A NAC #### [place] [address] C NOE - ---- Final No anaerobic growth after 72 hrs. [facility] Comment on above: Performed By: #### S BS #### [facility] (DEFAULT) [address] [place], [place] [id number] C NOE - ---- Final No anaerobic growth after 72 hrs. [facility] Comment on above: Performed By: #### A NAC #### [address] [address] C NOE - ---- Final No anaerobic growth after 72 hrs. [facility] Comment on above: Performed By: #### S BS #### [facility] (DEFAULT) [address] [place] [address] [address] C Sterile BSon 07-12-2024 C Sterile BS [...] <=0.25 V Trimethoprim/Sulfa S <=20 V Normal [facility] Comment on above: Performed By: #### S BSC #### [facility] (DEFAULT) [address] [place] [address] [facility] [address] [place] [address] C Sterile BS - ---- Final Light [...] <=10 V Vancomycin S 1 V Normal [facility] Comment on above: Performed By: #### S [facility] #### [facility] (DEFAULT) [address] [place] [address] [facility] [address] [place] [address] C Sterile BS - ---- Final Moderate [...] <=10 V Vancomycin S 1 V Normal [facility] Comment on above: Performed By: #### S [facility] #### [facility] (DEFAULT) [address] [place] [address] [facility] [address] [place] [address], [place] [address] C Sterile BS - ---- Final Moderate [...] <=10 V Vancomycin S 1 V Normal [facility] Comment on above: Performed By: #### S BSC #### [facility] (DEFAULT) [address] [place] [address] [facility] [address] [place] [address] .eGFRon 07-11-2024 GFR/1.73 sq M.predicted MDRD (S/P/Bld) [Vol rate/Area] mL/min/{1.73_m2} Normal >=60 [facility] Comment on above: Result Comment: [facility] Laboratories have implemented the eGFR calculation approach [...] years Performed By: #### A NAC #### [facility] [address] [place] [address] CBC w/ Diffon 07-11-2024 Erythrocyte distribution width (RBC) [Ratio] 13.4 % Normal 11.6-14.8 [facility] Comment on above: Performed By: #### S BSC #### [facility] (DEFAULT) [address] [place] [address] [facility] [address] [place] [address] Hematocrit (Bld) [Volume fraction] 37.5 % Normal 36.0-46.0 [facility] Comment on above: Performed By: #### S BSC #### [facility] (DEFAULT) [address] [place] [address] [facility] [address] [place] [address] Hemoglobin (Bld) [Mass/Vol] 12.6 g/dL Normal 12.0-16.0 [facility] Comment on above: Performed By: #### S BSC #### [facility] (DEFAULT) [address] [place] [address] [facility] [address] [place] [address] MCH (RBC) [Entitic mass] 32.5 pg Normal 27.0-35.0 [facility] Comment on above: Performed By: #### S BSC #### [facility] (DEFAULT) [address] [place] [address] [facility] [address] [place] [address] MCHC 33.7 % Normal 31.0-37.0 [facility] Comment on above: Performed By: #### S BSC #### [facility] (DEFAULT) [address] [place] [address] [facility] [address] [place] [address] MCV (RBC) [Entitic vol] 96.6 fL Normal 80.0-100.0 [facility] Comment on above: Performed By: #### S BSC #### [facility] (DEFAULT) [address] [place] [address] [facility] [address] [place] [address] Platelet 172 x10*3/mcL Normal 150-450 [facility] Comment on above: Performed By: #### S BSC #### [facility] (DEFAULT) [address] [place] [address] [facility] [address] [place] [address] Platelet mean volume (Bld) [Entitic vol] 9.3 fL Normal 6.7-10.6 [facility] Comment on above: Performed By: #### S BSC #### [facility] (DEFAULT) [address] [place] [address] [facility] [address] [place] [address] RBC 3.88 x10*6/mcL Normal 3.80-5.20 [facility] Comment on above: Performed By: #### S BSC #### [facility] (DEFAULT) [address] [place] [address] [facility] [address] [place] [address] WBC 8.8 x10*3/mcL Normal 4.5-11.0 [facility] Comment on above: Performed By: #### S BSC #### [facility] (DEFAULT) [address] [place] [address] [facility] [address] [place] [address] CMPon 07-11-2024 Albumin [Mass/Vol] 3.5 g/dL Normal 3.2-4.9 [facility] Comment on above: Performed By: #### S BSC #### [facility] (DEFAULT) [address] [place] [address] [facility] [address] [place] [address] Albumin/Globulin [Mass ratio] 1.5 {ratio} Normal 1.1-2.2 [facility] Comment on above: Performed By: #### S BSC #### [facility] (DEFAULT) [address] [place] [address] [facility] [address] [place] [address] Alk Phos 66 IU/L Normal 32-91 [facility] Comment on above: Performed By: #### S BSC #### [facility] (DEFAULT) [address] [place] [address] [facility] [address] [place] [address] ALT [Catalytic activity/Vol] 11 U/L Low 14-54 [facility] Comment on above: Performed By: #### S BSC #### [facility] (DEFAULT) [address] [place] [address] [facility] [address] [place] [address] Anion gap [Moles/Vol] 7 mmol/L Normal 4-12 [facility] Comment on above: Performed By: #### S BSC #### [facility] (DEFAULT) [address] [place] [address] [facility] [address] [place] [address] AST [Catalytic activity/Vol] 16 U/L Normal 15-41 [facility] Comment on above: Performed By: #### S BSC #### [facility] (DEFAULT) [address] [place] [address] [facility] [address] [place] [address] Bili Total 1.3 mg/dL High 0.3-1.2 [facility] Comment on above: Performed By: #### S BSC #### [facility] (DEFAULT) [address] [place] [address] [facility] [address] [place] [address] Calcium [Mass/Vol] 8.4 mg/dL Low 8.5-10.3 [facility] Comment on above: Performed By: #### S BSC #### [facility] (DEFAULT) [address] [place] [address] [facility] [address] [place] [address] Chloride [Moles/Vol] 103 mmol/L Normal 98-110 [facility] Comment on above: Performed By: #### S BSC #### [facility] (DEFAULT) [address] [place] [address] [facility] [address] [place] [address] CO2 [Moles/Vol] 28 mmol/L Normal 22-32 [facility] Comment on above: Performed By: #### S BSC #### [facility] (DEFAULT) [address] [place] [address] [facility] [address] [place] [address] Creatinine [Mass/Vol] 0.63 mg/dL Normal 0.44-1.03 [facility] Comment on above: Performed By: #### S BSC #### [facility] (DEFAULT) [address] [place] [address] [facility] [address] [place] [address] Glucose [Mass/Vol] 103 mg/dL High 70-99 [facility] Comment on above: Performed By: #### S BSC #### [facility] (DEFAULT) [address] [place] [address] [facility] [address] [place] [address] Potassium [Moles/Vol] 2.9 mmol/L Low 3.4-4.8 [facility] Comment on above: Performed By: #### S BSC #### [facility] (DEFAULT) [address] [place] [address] [facility] [address] [place] [address] Protein [Mass/Vol] 5.9 g/dL Low 6.5-8.1 [facility] Comment on above: Performed By: #### S BSC #### [facility] (DEFAULT) [address] [place] [address] [facility] [address] [place] [address] Sodium [Moles/Vol] 138 mmol/L Normal 133-142 [facility] Comment on above: Performed By: #### S BSC #### [facility] (DEFAULT) [address] [place] [address] [facility] [address] [place] [address] Urea nitrogen [Mass/Vol] 7 mg/dL Low 8-26 [facility] Comment on above: Performed By: #### S BSC #### [facility] (DEFAULT) [address] [place] [address] [facility] [address] [place] [address] Urea nitrogen/Creatinine [Mass ratio] 11.1 mg/mg Normal 10.0-20.0 [facility] Comment on above: Performed By: #### S BSC #### [facility] (DEFAULT) [address] [place] [address] [facility] [address] [place] [address] Dietary Consultationon 07-11 Dietary Consultation Consult for [...] who reports eating 2 meals and snacks 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 Reports UBW of 108# since losing weight about 3-4 years ago which algins with weight on admit. Reports she is discharging after potassium infusion. Will continue to follow along appropriately. Electronically signed by Mehnaz Moran RD 07/11/24 15:56 EDT Normal [facility] Diff Autoon 07-11-2024 Baso Absolute 0.0 x10*3/mcL Normal 0.0-0.2 [facility] Comment on above: Performed By: #### A NAC #### [facility] [address] [place] [address] Basophils/100 WBC (Bld) 0.5 % Normal 0.0-1.5 [facility] Comment on above: Performed By: #### A NAC #### [facility] [address] [place] [address] Eos Absolute 0.0 x10*3/mcL Normal 0.0-0.4 [facility] Comment on above: Performed By: #### A NAC #### [address] [address] Eosinophils/100 WBC (Bld) 0.3 % Normal 0.0-5.4 [facility] Comment on above: Performed By: #### A NAC #### [address] [address] Lymph Absolute 2.1 x10*3/mcL Normal 1.0-4.8 [facility] Comment on above: Performed By: #### A NAC #### [address] [address] Lymphocytes/100 WBC (Bld) 24.0 % Low 27.2-40.8 [facility] Comment on above: Performed By: #### A NAC #### [address] [address] [place] Absolute 0.5 x10*3/mcL Normal 0.1-1.1 [facility] Comment on above: Performed By: #### A NAC #### [address] [address] Monocytes/100 WBC (Bld) 6.1 % Normal 3.7-11.9 [facility] Comment on above: Performed By: #### A NAC #### [address] [address] Neutro Absolute 6.1 x10*3/mcL Normal 1.8-7.7 [facility] Comment on above: Performed By: #### A NAC #### [address] [address] Neutro Auto 69.1 % Normal 47.2-70.8 [facility] Comment on above: Performed By: #### A NAC #### [address] [address] Inpatient Clinical Summary 07-11-2024 Inpatient Clinical Summary [address] [address] Clinical Summary Person Information Name: Kati Thorne Age: 48 Years : 1975 Sex: Female PCP: Unavailable, Physician Marital Status: Phone: PCP: Race: White Ethnicity: Not or Language: Cameroonian Visit Id: Visit Reason: Speciality: Acuity: Enc Type: Observation Med Service: Surgery Arrival: 07/10/2024 11:21:35 Discharge: Dispo Type: Address: [address] [place] [id number] Diagnosis: Discharged To: Home Treatments: Devices/Equipment: Professional Skilled Services: Special Services and Community Resources: Mode of Discharge Transportation: Discharge Orders Discharge Special Instructions house painter will contact you tomorrow regarding pain medication [...] range between ( 27.2 and 40.8 ) [place] Auto: 6.1 % -- Normal range between [...] range between ( 36.0 and 46.0 ) [place] Absolute: 0.5 x10 MCH: 32.5 pg -- [...] Immunizations Doc (more content not included)... Normal [facility] Potassiumon 07-11-2024 Potassium [Moles/Vol] 4.0 mmol/L Normal 3.4-4.8 [facility] Comment on above: Performed By: #### A NAC #### [facility] [address] [place] [address] Progress Note-Nurseon 2023 Progress Note-Nurse Discharge instructions reviewed with pt and pt verbalizes understanding. Pt taken per wheelchair to private vehicle accompanied by tech. Electronically signed by Marysol Lopes 07/11/24 17:03 EDT Normal [facility] .eGFRon 07-10-2024 GFR/1.73 sq M.predicted MDRD (S/P/Bld) [Vol rate/Area] mL/min/{1.73_m2} Normal >=60 [facility] Comment on above: Result Comment: [facility] Laboratories have implemented the eGFR calculation approach [...] years Performed By: #### A NAC #### [place] [id number] CBC w/ Diffon 07-10-2024 Erythrocyte distribution width (RBC) [Ratio] 13.5 % Normal 11.6-14.8 [facility] Comment on above: Performed By: #### A NAC #### [place] [id number] Hematocrit (Bld) [Volume fraction] 39.9 % Normal 36.0-46.0 [facility] Comment on above: Performed By: #### A NAC #### [place] [id number] Hemoglobin (Bld) [Mass/Vol] 13.3 g/dL Normal 12.0-16.0 [facility] Comment on above: Performed By: #### A NAC #### [place] [id number] MCH (RBC) [Entitic mass] 32.2 pg Normal 27.0-35.0 [facility] Comment on above: Performed By: #### A NAC #### [address] [address] MCHC 33.4 % Normal 31.0-37.0 [facility] Comment on above: Performed By: #### A NAC #### [place] [id number] MCV (RBC) [Entitic vol] 96.6 fL Normal 80.0-100.0 [facility] Comment on above: Performed By: #### A NAC #### [place] [id number] Platelet 182 x10*3/mcL Normal 150-450 [facility] Comment on above: Performed By: #### A NAC #### [place] [id number] Platelet mean volume (Bld) [Entitic vol] 8.9 fL Normal 6.7-10.6 [facility] Comment on above: Performed By: #### A NAC #### [place] [id number] RBC 4.13 x10*6/mcL Normal 3.80-5.20 [facility] Comment on above: Performed By: #### A NAC #### [address] [address] WBC 10.2 x10*3/mcL Normal 4.5-11.0 [facility] Comment on above: Performed By: #### A NAC #### [address] [address] CMPon 07-10-2024 Albumin [Mass/Vol] 3.8 g/dL Normal 3.2-4.9 [facility] Comment on above: Performed By: #### A NAC #### [address] [address] Albumin/Globulin [Mass ratio] 1.4 {ratio} Normal 1.1-2.2 [facility] Comment on above: Performed By: #### A NAC #### [address] [address] Alk Phos 75 IU/L Normal 32-91 [facility] Comment on above: Performed By: #### A NAC #### [address] [address] ALT [Catalytic activity/Vol] 13 U/L Low 14-54 [facility] Comment on above: Performed By: #### A NAC #### [address] [address] Anion gap [Moles/Vol] 10 mmol/L Normal 4-12 [facility] Comment on above: Performed By: #### A NAC #### [address] [address] AST [Catalytic activity/Vol] 17 U/L Normal 15-41 [facility] Comment on above: Performed By: #### A NAC #### [address] [address] Bili Total 0.9 mg/dL Normal 0.3-1.2 [facility] Comment on above: Performed By: #### A NAC #### [address] [address] Calcium [Mass/Vol] 8.6 mg/dL Normal 8.5-10.3 [facility] Comment on above: Performed By: #### A NAC #### [address] [address] Chloride [Moles/Vol] 103 mmol/L Normal 98-110 [facility] Comment on above: Performed By: #### A NAC #### [address] [address] CO2 [Moles/Vol] 27 mmol/L Normal 22-32 [facility] Comment on above: Performed By: #### A NAC #### [address] [address] Creatinine [Mass/Vol] 0.54 mg/dL Normal 0.44-1.03 [facility] Comment on above: Performed By: #### A NAC #### [address] [address] Glucose [Mass/Vol] 105 mg/dL High 70-99 [facility] Comment on above: Performed By: #### A NAC #### [address] [address] Potassium [Moles/Vol] 2.7 mmol/L Low 3.4-4.8 [facility] Comment on above: Performed By: #### A NAC #### [address] [address] Protein [Mass/Vol] 6.6 g/dL Normal 6.5-8.1 [facility] Comment on above: Performed By: #### A NAC #### [address] [address] Sodium [Moles/Vol] 140 mmol/L Normal 133-142 [facility] Comment on above: Performed By: #### A NAC #### [address] [address] Urea nitrogen [Mass/Vol] 9 mg/dL Normal 8-26 [facility] Comment on above: Performed By: #### A NAC #### [address] [address] Urea nitrogen/Creatinine [Mass ratio] 16.7 mg/mg Normal 10.0-20.0 [facility] Comment on above: Performed By: #### A NAC #### [address] [address] Diff Autoon 07-10-2024 Baso Absolute 0.1 x10*3/mcL Normal 0.0-0.2 [facility] Comment on above: Performed By: #### A NAC #### [address] [address] Basophils/100 WBC (Bld) 0.6 % Normal 0.0-1.5 [facility] Comment on above: Performed By: #### A NAC #### [address] [address] Eos Absolute 0.0 x10*3/mcL Normal 0.0-0.4 [facility] Comment on above: Performed By: #### A NAC #### [address] [address] Eosinophils/100 WBC (Bld) 0.3 % Normal 0.0-5.4 [facility] Comment on above: Performed By: #### A NAC #### [address] [address] Lymph Absolute 2.3 x10*3/mcL Normal 1.0-4.8 [facility] Comment on above: Performed By: #### A NAC #### [address] [address] Lymphocytes/100 WBC (Bld) 22.8 % Low 27.2-40.8 [facility] Comment on above: Performed By: #### A NAC #### [address] [address] [place] Absolute 0.5 x10*3/mcL Normal 0.1-1.1 [facility] Comment on above: Performed By: #### A NAC #### [address] [address] Monocytes/100 WBC (Bld) 5.2 % Normal 3.7-11.9 [facility] Comment on above: Performed By: #### A NAC #### [address] [address] Neutro Absolute 7.2 x10*3/mcL Normal 1.8-7.7 [facility] Comment on above: Performed By: #### A NAC #### [address] [address] Neutro Auto 71.1 % High 47.2-70.8 [facility] Comment on above: Performed By: #### A NAC #### [address] [address] Magnesiumon 07-10-2024 Magnesium [Mass/Vol] 1.8 mg/dL Normal 1.7-2.4 [facility] Comment on above: Performed By: #### S BSC #### [facility] (DEFAULT) [address] [place] [address] [facility] [address] [place] [address] Operative Reporton Operative Report Indication for Surgery Patient is [...] Surgeon(s) Santo Recinos DO (Surgeon - Primary) Senior Treasury Consultant None Anesthesia General Thaddeus RAMIREZ, Dominick Young (Laboratory Administrative Director) Zackery De Dios (Provider) Estimated Blood Loss [...] Santo Recinos DO 07/10/24 15:47 EDT Normal [facility] XR Finger 2nd Digit Righton [...] Electronically Signed in Other Vendor System) Normal [facility] XR FINGER LEFT (MIN 2 [...] Robertson Jr., MD 06/30/[address] [facility] XR FINGER RIGHT (MIN 2 VIEWS [...] Robertson Jr., MD 06/09/[address] [facility] XR NECK SOFT TISSUEon 2022 XR [...] ANGY SMALLS Date: 2023-02-23 13:14 Normal [facility] FREE T4on 02-20-2023 Free T4 [Mass/Vol] 0.65 ng/dL Critically low 0.76-1.46 [facility] Comment on above: Performed By: #### L ACT #### [facility] [address] [place] [address] [address] Jovanna Oneill TSH W/ REFLEX TO FT4on 02-20 TSH 5.032 uIU/mL Critically high 0.358-3.740 [facility] Comment on above: Performed By: #### L ACT #### [facility] [address] [place] [address] [address] Jovanna Oneill RESPIRATORY PANEL PLUSon Adenovirus Not detected Normal NOT DETECTED [facility] Comment on above: Performed By: #### R SPLUS ####[facility] [address] [place], [place] [address]Dr. Jovanna Oneill B. Parapertusis Not detected Normal NOT DETECTED [facility] Comment on above: Performed By: #### R SPLUS ####[facility] [address] [place], [place] [address]Dr. Jovanna Oneill B. Pertussis Not detected Normal NOT DETECTED [facility] Comment on above: Performed By: #### R SPLUS ####[facility] [address] [place], [place] [address]Dr. Jovanna Oneill Chlamydia Pneumoniae Not detected Normal NOT DETECTED [facility] Comment on above: Performed By: #### R SPLUS ####[facility] [address] [place], [place] [address]Dr. Jovanna Oneill Coronavirus 229E Not detected Normal NOT DETECTED [facility] Comment on above: Performed By: #### R SPLUS ####[facility] [address] [place], [place] [address]Dr. Jovanna Oneill Coronavirus HKU1 Not detected Normal NOT DETECTED [facility] Comment on above: Performed By: #### R SPLUS ####[facility] [address] [place], [place] [address]Dr. Jovnana Oneill Coronavirus NL63 Not detected Normal NOT DETECTED [facility] Comment on above: Performed By: #### R SPLUS ####[facility] [address] [place] [address]Dr. Jovanna Oneill Coronavirus OC43 Not detected Normal NOT DETECTED [facility] Comment on above: Performed By: #### R SPLUS ####[facility] [address] [place], [place] [address]Dr. Jovanna Oneill Influenza A H1 Not detected Normal NOT DETECTED [facility] Comment on above: Performed By: #### R SPLUS ####[facility] [address] [place], [place] [address]Dr. Jovanna Oneill Influenza A H1 2009 Not detected Normal NOT DETECTED [facility] Comment on above: Performed By: #### R SPLUS ####[facility] [address] [place], [place] [address]Dr. Jovanna Oneill Influenza A H3 Not detected Normal NOT DETECTED [facility] [facility] Comment on above: Performed By: #### R SPLUS ####[facility] [address] [place], [place] [address]Dr. Jovanna Oneill Influenza B Not detected Normal NOT DETECTED [facility] Comment on above: Performed By: #### R SPLUS ####[facility] [address] [place], [place] [address]Dr. Jovanna Oneill Metapneumovirus Not detected Normal NOT DETECTED [facility] Comment on above: Performed By: #### R SPLUS ####[facility] [address] [place], [place] [address]Dr. Jovanna Oneill Mycoplas. Pneumoniae Not detected Normal NOT DETECTED [facility] Comment on above: Performed By: #### R SPLUS ####[facility] [address] [place], [place] [address]Dr. Jovanna Oneill Parainfluenza 1 Not detected Normal NOT DETECTED [facility] Comment on above: Performed By: #### R SPLUS ####[facility] [address] [place], [place] [address]Dr. Jovanna Oneill Parainfluenza 2 Not detected Normal NOT DETECTED [facility] Comment on above: Performed By: #### R SPLUS ####[facility] [address] [address]Dr. Jovanna Oneill Parainfluenza 3 Not detected Normal NOT DETECTED [facility] Comment on above: Performed By: #### R SPLUS ####[facility] [address] [place], [place] [address]Dr. Jovanna Oneill Parainfluenza 4 Not detected Normal NOT DETECTED [facility] Comment on above: Performed By: #### R SPLUS ####[facility] [address] [place], [place] [address]Dr. Jovanna Oneill Rhino/Enterovirus Not detected Normal NOT DETECTED [facility] Comment on above: Performed By: #### R SPLUS ####[facility] [address] [place], [place] [address]Dr. Jovanna Oneill RP2 Header 1 RESPIRATORY PANEL: VIRUSES Normal [facility] Comment on above: Performed By: #### R SPLUS ####[facility] [address] [place], [place] [address]Dr. Jovanna Oneill RP2 Header 2 RESPIRATORY PANEL: BACTERIA Normal [facility] Comment on above: Performed By: #### R SPLUS ####[facility] [address] [place], [place] [address]Dr. Jovanna Oneill RSV Not detected Normal NOT DETECTED [facility] Comment on above: Performed By: #### R SPLUS ####[facility] [address] [place], [place] [address]Dr. Jovanna Oneill SARS-CoV-2 (COVID-19) RNA DUC+probe Ql (Unsp spec) Not detected Normal NOT DETECTED [facility] Comment on above: Performed By: #### R SPLUS ####[facility] [address] [place], [place] [address]Dr. Jovanna Oneill MG MAMM SCREEN 3D CHELLY CADon 01-12-2023 MG MAMM SCREEN 3D CHELLY CAD Patient: KATI THORNE Exam Date: 01/12/2023 : 1975 Gender:F Ordering : TATUM ONOFRE Admission #: [id number] Family : Order #: [id number] CLICK HERE TO VIEW EXAM RADIOLOGY REPORT [...] cervical cancer at age 40. LOCATION: [facility] BREAST COMPOSITION: Almost entirely fatty. [...] Yanez MD on 01/12/2023 at 12:42 Normal [facility] XR DEXA BONE DENSITYon 01-12 [...] RJ YANEZ Date: 2023-01-12 17:10 Normal [facility] GABAPENTIN URINEon Gabapentin, Urine Negative Normal [facility] Comment on above: Performed By: #### G ABAP ####[facility] [address] [place], [place] [address]NhJhony Jovanna Nino DRUG SCREEN RAPID (URINE)on 11-14-2022 AMP Negative Normal NEGATIVE [facility] Comment on above: Performed By: #### V ITB12 #### [facility] [address] [place] [address] Dr. Jovanna Oneill BAR Negative Normal NEGATIVE [facility] Comment on above: Performed By: #### V ITB12 #### [facility] [address] [place] [address] Dr. Jovanna Oneill BUP Negative Normal NEGATIVE [facility] Comment on above: Performed By: #### V ITB12 #### [facility] [address] [place] [address] Dr. Jovanna Oneill BZO Negative Normal NEGATIVE [facility] Comment on above: Performed By: #### V ITB12 #### [facility] [address] [place] [address] Dr. Jovanna Oneill CARA Negative Normal NEGATIVE [facility] Comment on above: Performed By: #### V ITB12 #### [facility] [address] [place] [address] Dr. Jovanna Oneill CUT-OFFS SEE BELOW Normal [facility] Comment on above: Result Comment: [...] ng/mL Performed By: #### V ITB12 #### [facility] [address] [place] [address] Dr. Jovanna Oneill DRUG CUT HEADER DRUG CLASS TEST SYSTEM CUT-OFF CONCENTRATIONS ARE FOLLOWS: Normal [facility] Comment on above: Performed By: #### V ITB12 #### [facility] [address] [place] [address] Dr. Jovanna Oneill mAMP Negative Normal NEGATIVE [facility] Comment on above: Performed By: #### V ITB12 #### [facility] [address] [address] [address] Jovanna Oneill MTD Negative Normal NEGATIVE [facility] Comment on above: Performed By: #### V ITB12 #### [facility] [address] [place] [address] Dr. Jovanna Oneill OPI Positive Abnormal NEGATIVE [facility] Comment on above: Performed By: #### V ITB12 #### [facility] [address] [place] [address] Dr. Jovanna Oneill OXY Negative Normal NEGATIVE [facility] Comment on above: Performed By: #### V ITB12 #### [facility] [address] [place] [address] Dr. Jovanna Oneill PCP Negative Normal NEGATIVE [facility] Comment on above: Performed By: #### V ITB12 #### [facility] [address] [place] [address] Dr. Jovanna Oneill PPX Negative Normal NEGATIVE [facility] Comment on above: Performed By: #### V ITB12 #### [facility] [address] [place] [address] Dr. Jovanna Oneill TCA Negative Normal NEGATIVE [facility] Comment on above: Performed By: #### V ITB12 #### [facility] [address] [place] [address] Dr. Jovanna Oneill THC Positive Abnormal NEGATIVE [facility] Comment on above: Performed By: #### V ITB12 #### [facility] [address] [place] [address] Dr. Jovanna Oneill CBC AUTO DIFFon 10-08-2022 BASO # 0.0 103/ul Normal 0.0-0.1 [facility] Comment on above: Performed By: #### C BC #### [facility] [address] [place] [address] Dr. Jovanna Oneill Basophils/100 WBC (Bld) 0.4 % Normal 0.2-2.0 [facility] Comment on above: Performed By: #### C BC #### [facility] [address] [place] [address] Dr. Jovanna Oneill EO # 0.1 103/ul Normal 0.0-0.7 [facility] Comment on above: Performed By: #### C BC #### [facility] [address] [place] [address] Dr. Jovanna Oneill Eosinophils/100 WBC (Bld) 1.3 % Normal 0.9-7.0 [facility] Comment on above: Performed By: #### C BC #### [facility] [address] [place] [address] Dr. Jovanna Oneill Erythrocyte distribution width (RBC) [Ratio] 12.0 % Normal 11.0-15.0 [facility] Comment on above: Performed By: #### C BC #### [facility] [address] [place] [address] Dr. Jovanna Oneill Hematocrit (Bld) [Volume fraction] 37.8 % Normal 36.0-48.0 [facility] Comment on above: Performed By: #### C BC #### [facility] [address] [place] [address] Dr. Jovanna Oneill Hemoglobin (Bld) [Mass/Vol] 12.8 g/dL Normal 12.0-16.0 [facility] Comment on above: Performed By: #### C BC #### [facility] [address] [place] [address] Dr. Jovanna Oneill IG # 0.02 10e3/ul Normal 0.00-0.03 [facility] Comment on above: Performed By: #### C BC #### [facility] [address] [place] [address] Dr. Jovanna Oneill IG % 0.2 % Normal 0.0-0.5 [facility] Comment on above: Performed By: #### C BC #### [facility] [address] [place] [address] Dr. Jovanna Oneill LYMPH # 3.5 103/ul Normal 1.2-3.8 [facility] Comment on above: Performed By: #### C BC #### [facility] [address] [place] [address] Dr. Jovanna Oneill Lymphocytes/100 WBC (Bld) 37.9 % Normal 20.5-60.0 [facility] Comment on above: Performed By: #### C BC #### [facility] [address] [place] [address] Dr. Jovanna Oneill MANUAL DIFF REQ NO Normal [facility] Comment on above: Performed By: #### C BC #### [facility] [address] [place] [address] Dr. Jovanna Oneill MCH (RBC) [Entitic mass] 31.7 pg Normal 26.7-34.0 [facility] Comment on above: Performed By: #### C BC #### [facility] [address] [place] [address] Dr. Jovanna Oneill MCHC (RBC) [Mass/Vol] 33.9 g/dL Normal 29.9-35.2 [facility] Comment on above: Performed By: #### C BC #### [facility] [address] [place] [address] Dr. Jovanna Oneill MCV (RBC) [Entitic vol] 93.6 fL Normal 81.0-99.0 [facility] Comment on above: Performed By: #### C BC #### [facility] [address] [place] [address] Dr. Jovanna Oneill MONO # 0.5 103/ul Normal 0.3-0.8 [facility] Comment on above: Performed By: #### C BC #### [facility] [address] [place] [address] Dr. Jovanna Oneill Monocytes/100 WBC (Bld) 4.8 % Normal 1.7-12.0 [facility] Comment on above: Performed By: #### C BC #### [facility] [address] [place] [address] Dr. Jovanna Oneill NEUT # 5.1 103/ul Normal 1.4-6.5 [facility] Comment on above: Performed By: #### C BC #### [facility] [address] [place] [address] Dr. Jovanna Oneill Neutrophils/100 WBC (Bld) 55.4 % Normal 43.0-75.0 [facility] Comment on above: Performed By: #### C BC #### [facility] [address] [address] [address] Jovanna Oneill Platelet mean volume (Bld) [Entitic vol] 10.2 fL Normal 9.5-13.5 [facility] Comment on above: Performed By: #### C BC #### [facility] [address] [address] [address] Jovanna Oneill PLT 181 103/ul Normal 150-450 [facility] Comment on above: Performed By: #### C BC #### [facility] [address] [address] [address] Jovanna Oneill RBC 4.04 106/ul Critically low 4.20-5.40 [facility] Comment on above: Performed By: #### C BC #### [facility] [address] [address] [address] Jovanna Oneill WBC 9.3 103/ul Normal 4.0-11.0 [facility] Comment on above: Performed By: #### C BC #### [facility] [address] [address] [address] Jovanna Oneill CRPon 10-08-2022 CRP [Mass/Vol] mg/L Normal <=1.0 [facility] Comment on above: Performed By: #### B MP, CRP ####[facility] [address] [address]Dr. Jovanna Oneill LACTATE/LACTIC ACIDon 2021 Lactate [Moles/Vol] 0.4 mmol/L Normal 0.4-1.9 [facility] Comment on above: Performed By: #### L ACT #### [facility] [address] [address] [address] Jovanna Oneill PROF CHEM 8 (BAS METB)on Anion gap [Moles/Vol] 12.6 mmol/L Normal [facility] Comment on above: Performed By: #### B MP, CRP #### [facility] [address] [address] [address] Jovanna Oneill Calcium [Mass/Vol] 8.6 mg/dL Normal 8.5-10.1 [facility] Comment on above: Performed By: #### B MP, CRP #### [facility] [address] [address] [address] Jovanna Oneill Chloride [Moles/Vol] 104 mmol/L Normal 98-107 [facility] Comment on above: Performed By: #### B MP, CRP #### [facility] [address] [address] [address] Jovanna Oneill CO2 [Moles/Vol] 26.8 mmol/L Normal 21.0-32.0 [facility] Comment on above: Performed By: #### B MP, CRP #### [facility] [address] [place] [address] Dr. Jovanna Oneill Creatinine [Mass/Vol] 0.52 mg/dL Critically low 0.55-1.02 [facility] Comment on above: Performed By: #### B MP, CRP #### [facility] [address] [place] [address] Dr. Jovanna Oneill EGFR-AF DOMINICAN >60 Normal >=60 [facility] Comment on above: Performed By: #### B MP, CRP #### [facility] [address] [place] [address] Dr. Jovanna Oneill EGFR-NON AF DOMINICAN >60 Normal >=60 [facility] Comment on above: Performed By: #### B MP, CRP #### [facility] [address] [place] [address] Dr. Jovanna Oneill Glucose [Mass/Vol] 93 mg/dL Normal 74-106 [facility] Comment on above: Performed By: #### B MP, CRP #### [facility] [address] [place] [address] Dr. Jovanna Oneill Potassium [Moles/Vol] 3.4 mmol/L Critically low 3.5-5.1 [facility] Comment on above: Performed By: #### B MP, CRP #### [facility] [address] [place], [place] [address] Dr. Jovanna Oneill Sodium [Moles/Vol] 140 mmol/L Normal 136-145 [facility] Comment on above: Performed By: #### B MP, CRP #### [facility] [address] [place], [place] [address] Dr. Jovanna Oneill Urea nitrogen [Mass/Vol] 11.0 mg/dL Normal 7.0-18.0 [facility] Comment on above: Performed By: #### B MP, CRP #### [facility] [address] [id number] Jovanna Oneill Urea nitrogen/Creatinine [Mass ratio] 21.2 mg/mg Normal [facility] Comment on above: Performed By: #### B MP, CRP #### [facility] [id number] Jovanna Oneill SED RATE [facility] 2021 SED RATE 17 mm/hr Normal <=20 [facility] Comment on above: Performed By: #### S EDR ####[facility] [address] [place], [place] [address]YkDr. Jovanna Oneill Physician Referralon 022 Physician Referral [id number] 1 [id number] .[id number]:127 Normal [facility] Physician Referral [id number] 1 [id number] .00CD:127 Normal [facility] PROF 14(COMP METB)on 022 Albumin [Mass/Vol] 3.4 g/dL Normal 3.4-5.0 [facility] Comment on above: Performed By: #### V ITB12 #### [facility] [address] [id number] Jovanna Oneill Albumin/Globulin [Mass ratio] 1.1 {ratio} Normal [facility] Comment on above: Performed By: #### V ITB12 #### [facility] [address] [address] [address] Jovanna Oneill ALP [Catalytic activity/Vol] 88 U/L Normal 46-116 [facility] Comment on above: Performed By: #### V ITB12 #### [facility] [address] [address] [address] Jovanna Oneill ALT [Catalytic activity/Vol] 11 U/L Critically low 14-59 [facility] Comment on above: Performed By: #### V ITB12 #### [facility] [address] [address] [address] Jovanna Oneill Anion gap [Moles/Vol] 8.7 mmol/L Normal [facility] Comment on above: Performed By: #### V ITB12 #### [facility] [address] [address] [address] Jovanna Oneill AST [Catalytic activity/Vol] 13 U/L Critically low 15-37 [facility] Comment on above: Performed By: #### V ITB12 #### [facility] [address] [place] [address] Dr. Jovanna Oneill Bilirubin [Mass/Vol] 0.6 mg/dL Normal 0.2-1.0 [facility] Comment on above: Performed By: #### V ITB12 #### [facility] [address] [address] [address] Jovanna Oneill Calcium [Mass/Vol] 8.7 mg/dL Normal 8.5-10.1 [facility] Comment on above: Performed By: #### V ITB12 #### [facility] [address] [address] [address] Jovanna Oneill Chloride [Moles/Vol] 104 mmol/L Normal 98-107 [facility] Comment on above: Performed By: #### V ITB12 #### [facility] [address] [address] [address] Jovanna Oneill CO2 [Moles/Vol] 31.9 mmol/L Normal 21.0-32.0 [facility] Comment on above: Performed By: #### V ITB12 #### [facility] [address] [address] [address] Jovanna Oneill Creatinine [Mass/Vol] 0.65 mg/dL Normal 0.55-1.02 [facility] Comment on above: Performed By: #### V ITB12 #### [facility] [address] [address] [address] Jovanna Oneill EGFR-AF DOMINICAN >60 Normal >=60 [facility] Comment on above: Performed By: #### V ITB12 #### [facility] [address] [address] [address] Jovanna Oneill EGFR-NON AF DOMINICAN >60 Normal >=60 [facility] Comment on above: Performed By: #### V ITB12 #### [facility] [address] [address] [address] Jovanna Oneill Globulin (S) [Mass/Vol] 3.2 g/dL Normal [facility] Comment on above: Performed By: #### V ITB12 #### [facility] [address] [place] [address] Dr. Jovanna Oneill Glucose [Mass/Vol] 91 mg/dL Normal 74-106 [facility] Comment on above: Performed By: #### V ITB12 #### [facility] [address] [address] [address] Jovanna Oneill Potassium [Moles/Vol] 3.6 mmol/L Normal 3.5-5.1 [facility] Comment on above: Performed By: #### V ITB12 #### [facility] [address] [address] [address] Jovanna Oneill Protein [Mass/Vol] 6.6 g/dL Normal 6.4-8.2 [facility] Comment on above: Performed By: #### V ITB12 #### [facility] [address] [address] [address] Jovanna Oneill Sodium [Moles/Vol] 141 mmol/L Normal 136-145 [facility] Comment on above: Performed By: #### V ITB12 #### [facility] [address] [address] [address] Jovanna Oneill Urea nitrogen [Mass/Vol] 4.0 mg/dL Critically low 7.0-18.0 [facility] Comment on above: Performed By: #### V ITB12 #### [facility] [address] [place] [address] Dr. Jovanna Oneill Urea nitrogen/Creatinine [Mass ratio] 6.2 mg/mg Normal [facility] Comment on above: Performed By: #### V ITB12 #### [facility] [address] [place] [address] Dr. Jovanna Oneill HEPATITIS C AB CASCADE TO QU ANT PCR GENOon 09-13-2022 HCV AB <0.1 Normal 0.0-0.9 [facility] Comment on above: Performed By: #### H EPCASC #### [facility] [address] [place] [address] Dr. Jovanna Oneill Interpretation: Comment Normal [facility] Comment on above: Result Comment: Nega tive Not infected with HCV, unless recent infection is suspected or other evidence exists to indicate HCV infection. Performed By: #### H EPCASC #### [facility] [address] [place] [address] Dr. Jovanna Oneill CBC AUTO DIFFon 09-12-2022 BASO # 0.0 103/ul Normal 0.0-0.1 [facility] Comment on above: Performed By: #### C BC #### [facility] [address] [place] [address] Dr. Jovanna Oneill Basophils/100 WBC (Bld) 0.3 % Normal 0.2-2.0 [facility] Comment on above: Performed By: #### C BC #### [facility] [address] [place] [address] Dr. Jovanna Oneill EO # 0.1 103/ul Normal 0.0-0.7 [facility] Comment on above: Performed By: #### C BC #### [facility] [address] [place] [address] Dr. Jovanna Oneill Eosinophils/100 WBC (Bld) 0.7 % Critically low 0.9-7.0 [facility] Comment on above: Performed By: #### C BC #### [facility] [address] [place] [address] Dr. Jovanna Oneill Erythrocyte distribution width (RBC) [Ratio] 12.3 % Normal 11.0-15.0 [facility] Comment on above: Performed By: #### C BC #### [facility] [address] [place] [address] Dr. Jovanna Oneill Hematocrit (Bld) [Volume fraction] 40.2 % Normal 36.0-48.0 [facility] Comment on above: Performed By: #### C BC #### [facility] [address] [place] [address] Dr. Jovanna Oneill Hemoglobin (Bld) [Mass/Vol] 13.4 g/dL Normal 12.0-16.0 [facility] Comment on above: Performed By: #### C BC #### [facility] [address] [place] [address] Dr. Jovanna Oneill IG # 0.02 10e3/ul Normal 0.00-0.03 [facility] Comment on above: Performed By: #### C BC #### [facility] [address] [place] [address] Dr. Jovanna Oneill IG % 0.3 % Normal 0.0-0.5 [facility] Comment on above: Performed By: #### C BC #### [facility] [address] [place] [address] Dr. Jovanna Oneill LYMPH # 2.2 103/ul Normal 1.2-3.8 [facility] Comment on above: Performed By: #### C BC #### [facility] [address] [place] [address] Dr. Jovanna Oneill Lymphocytes/100 WBC (Bld) 31.9 % Normal 20.5-60.0 [facility] Comment on above: Performed By: #### C BC #### [facility] [address] [place] [address] Dr. Jovanna Oneill MANUAL DIFF REQ NO Normal [facility] Comment on above: Performed By: #### C BC #### [facility] [address] [place] [address] Dr. Jovanna Oneill MCH (RBC) [Entitic mass] 31.8 pg Normal 26.7-34.0 [facility] Comment on above: Performed By: #### C BC #### [facility] [address] [place] [address] Dr. Jovanna Oneill MCHC (RBC) [Mass/Vol] 33.3 g/dL Normal 29.9-35.2 [facility] Comment on above: Performed By: #### C BC #### [facility] [address] [place] [address] Dr. Jovanna Oneill MCV (RBC) [Entitic vol] 95.5 fL Normal 81.0-99.0 [facility] Comment on above: Performed By: #### C BC #### [facility] [address] [place] [address] Dr. Jovanna Oneill MONO # 0.3 103/ul Normal 0.3-0.8 [facility] Comment on above: Performed By: #### C BC #### [facility] [address] [place] [address] Dr. Jovanna Oneill Monocytes/100 WBC (Bld) 4.4 % Normal 1.7-12.0 [facility] Comment on above: Performed By: #### C BC #### [facility] [address] [place] [address] Dr. Jovanna Oneill NEUT # 4.4 103/ul Normal 1.4-6.5 [facility] Comment on above: Performed By: #### C BC #### [facility] [address] [place] [address] Dr. Jovanna Oneill Neutrophils/100 WBC (Bld) 62.4 % Normal 43.0-75.0 [facility] Comment on above: Performed By: #### C BC #### [facility] [address] [place] [address] Dr. Jovanna Oneill Platelet mean volume (Bld) [Entitic vol] 10.9 fL Normal 9.5-13.5 [facility] Comment on above: Performed By: #### C BC #### [facility] [address] [place] [address] Dr. Jovanna Oneill PLT 179 103/ul Normal 150-450 [facility] Comment on above: Performed By: #### C BC #### [facility] [address] [place] [address] Dr. Jovanna Oneill RBC 4.21 106/ul Normal 4.20-5.40 [facility] Comment on above: Performed By: #### C BC #### [facility] [address] [place] [address] Dr. Jovanna Oneill WBC 7.0 103/ul Normal 4.0-11.0 [facility] Comment on above: Performed By: #### C BC #### [facility] [address] [place] [address] Dr. Jovanna Oneill GLYCOHEMOGLOBIN A1Con 2021 ADA RECOMMENDATION SEE BELOW Normal [facility] Comment on above: Result Comment: ADA RECOMMENDED LIMIT 4.0 - 6.0 ADA THERAPEUTIC TARGET < 7.0 ACTION SUGGESTED > 7.0 Performed By: #### L ACT #### [facility] [address] [place] [address] Dr. Jovanna Oneill Glucose [Mass/Vol] 105 mg/dL Normal [facility] Comment on above: Performed By: #### L ACT #### [facility] [address] [place] [address] Dr. Jovanna Oneill HbA1c (Bld) [Mass fraction] 5.3 % Normal 4.5-6.2 [facility] Comment on above: Performed By: #### L ACT #### [facility] [address] [place] [address] Dr. Jovanna Oneill LIPID PROFILEon 09-12-2022 CHOL-HDL RATIO NORM SEE BELOW Normal [facility] Comment on above: Result Comment: 3.3 - 4.4 LOW RISK 4.4 - 7.1 AVERAGE RISK 7.1 - 11.0 MODERATE RISK >11.0 HIGH RISK Performed By: #### C MP, LIPID #### [facility] [address] [place] [address] Dr. Jovanna Oneill Cholesterol [Mass/Vol] 135 mg/dL Normal <=200 [facility] Comment on above: Performed By: #### C MP, LIPID #### [facility] [address] [place] [address] Dr. Jovanna Oneill Cholesterol in HDL [Mass/Vol] 35 mg/dL Critically low 40-60 [facility] Comment on above: Performed By: #### C MP, LIPID #### [facility] [address] [place] [address] Dr. Jovanna Oneill Cholesterol in LDL [Mass/Vol] 84.8 mg/dL Normal [facility] Comment on above: Performed By: #### C MP, LIPID #### [facility] [address] [place] [address] Dr. Jovanna Oneill Cholesterol.total/Ch olesterol in HDL [Mass ratio] 3.9 {ratio} Normal [facility] Comment on above: Performed By: #### C MP, LIPID #### [facility] [address] [place] [address] Dr. Jovanna Oneill HDL NORMAL > or = 60 mg/dl - LO W CARDIOVASCULAR RISK <40 mg/dl - HIGH CARDIOVASCULAR RISK Normal [facility] Comment on above: Performed By: #### C MP, LIPID #### [facility] [address] [place] [address] Dr. Jovanna Oneill LDL CALC NORMAL SEE BELOW Normal [facility] Comment on above: Result Comment: <100 mg/dl OPTIMAL 100 - 129 mg/dl NEAR OR ABOVE OPTIMAL 130 - 159 mg/dl BORDERLINE HIGH 160 - 189 mg/dl HIGH >190 mg/dl VERY HIGH Performed By: #### C MP, LIPID #### [facility] [address] [place] [address] Dr. Jovanna Oneill Triglyceride [Mass/Vol] 76 mg/dL Normal <=150 [facility] Comment on above: Performed By: #### C MP, LIPID #### [facility] [address] [place] [address] Dr. Jovanna Oneill VLDL CALC 15.2 mg/dL Normal [facility] Comment on above: Performed By: #### C MP, LIPID #### [facility] [address] [place] [address] Dr. Jovanna Oneill PROF 14(COMP METB)on 022 Albumin [Mass/Vol] 3.5 g/dL Normal 3.4-5.0 [facility] Comment on above: Performed By: #### C MP, LIPID #### [facility] [address] [place] [address] Dr. Jovanna Oneill Albumin/Globulin [Mass ratio] 1.1 {ratio} Normal [facility] Comment on above: Performed By: #### C MP, LIPID #### [facility] [address] [place] [address] Dr. Jovanna Oneill ALP [Catalytic activity/Vol] 79 U/L Normal 46-116 [facility] Comment on above: Performed By: #### C MP, LIPID #### [facility] [address] [place] [address] Dr. Jovanna Oneill ALT [Catalytic activity/Vol] 15 U/L Normal 14-59 [facility] Comment on above: Performed By: #### C MP, LIPID #### [facility] [address] [place] [address] Dr. Jovanna Oneill Anion gap [Moles/Vol] 4.9 mmol/L Normal [facility] Comment on above: Performed By: #### C MP, LIPID #### [facility] [address] [place] [address] Dr. Jovanna Oneill AST [Catalytic activity/Vol] 17 U/L Normal 15-37 [facility] Comment on above: Performed By: #### C MP, LIPID #### [facility] [address] [place] [address] Dr. Jovanna Oneill Bilirubin [Mass/Vol] 0.4 mg/dL Normal 0.2-1.0 [facility] Comment on above: Performed By: #### C MP, LIPID #### [facility] [address] [place] [address] Dr. Jovanna Oneill Calcium [Mass/Vol] 8.7 mg/dL Normal 8.5-10.1 [facility] Comment on above: Performed By: #### C MP, LIPID #### [facility] [address] [place] [address] Dr. Jovanna Oneill Chloride [Moles/Vol] 103 mmol/L Normal 98-107 [facility] Comment on above: Performed By: #### C MP, LIPID #### [facility] [address] [address] [address] Jovanna Oneill CO2 [Moles/Vol] 35.8 mmol/L Critically high 21.0-32.0 [facility] Comment on above: Performed By: #### C MP, LIPID #### [facility] [address] [place] [address] Dr. Jovanna Oneill Creatinine [Mass/Vol] 0.70 mg/dL Normal 0.55-1.02 [facility] Comment on above: Performed By: #### C MP, LIPID #### [facility] [address] [place] [address] Dr. Jovanna Oneill EGFR-AF DOMINICAN >60 Normal >=60 [facility] Comment on above: Performed By: #### C MP, LIPID #### [facility] [address] [place] [address] Dr. Jovanna Oneill EGFR-NON AF DOMINICAN >60 Normal >=60 [facility] Comment on above: Performed By: #### C MP, LIPID #### [facility] [address] [place] [address] Dr. Jovanna Oneill Globulin (S) [Mass/Vol] 3.2 g/dL Normal [facility] Comment on above: Performed By: #### C MP, LIPID #### [facility] [address] [place] [address] Dr. Jovanna Oneill Glucose [Mass/Vol] 86 mg/dL Normal 74-106 [facility] Comment on above: Performed By: #### C MP, LIPID #### [facility] [address] [place] [address] Dr. Jovanna Oneill Potassium [Moles/Vol] 2.7 mmol/L Critically low 3.5-5.1 [facility] Comment on above: Performed By: #### C MP, LIPID #### [facility] [address] [place] [address] Dr. Jovanna Oneill Protein [Mass/Vol] 6.7 g/dL Normal 6.4-8.2 [facility] Comment on above: Performed By: #### C MP, LIPID #### [facility] [address] [address] [address] Jovanna Oneill Sodium [Moles/Vol] 141 mmol/L Normal 136-145 [facility] Comment on above: Performed By: #### C MP, LIPID #### [facility] [address] [address] [address] Jovanna Oneill Urea nitrogen [Mass/Vol] 6.0 mg/dL Critically low 7.0-18.0 [facility] Comment on above: Performed By: #### C MP, LIPID #### [facility] [address] [address] [address] Jovanna Oneill Urea nitrogen/Creatinine [Mass ratio] 8.6 mg/mg Normal [facility] Comment on above: Performed By: #### C MP, LIPID #### [facility] [address] [address] [address] Jovanna Oneill US THYROIDon 09-12-2022 US [...] by: FRANCES AGUSTIN Date: 2022-09-12 11:52 Normal [facility] VITAMIN B12on 09-12-2022 Cobalamin (Vitamin B12) [Mass/Vol] 280.0 pg/mL Normal 193.0-986.0 [facility] Comment on above: Performed By: #### V ITB12 #### [facility] [address] CSPINE WO CONon [...] MAN VILLALOBOS Date: 2022-08-24 18:11 Normal [facility] CT NECK ST W CONon [...] WOO PAIGE Date: 2022-08-16 23:10 Normal [facility] CBC AUTO DIFFon 08-16-2022 BASO # 0.0 103/ul Normal 0.0-0.1 [facility] Comment on above: Performed By: #### C BC ####[facility] [address] [address]Dr. Rosaliareagan Oneill Basophils/100 WBC (Bld) 0.2 % Normal 0.2-2.0 [facility] Comment on above: Performed By: #### C BC ####[facility] [address] [address]Dr. Jovanna Oneill EO # 0.1 103/ul Normal 0.0-0.7 [facility] Comment on above: Performed By: #### C BC ####[facility] [address] [address]Dr. Jovanna Oneill Eosinophils/100 WBC (Bld) 0.7 % Critically low 0.9-7.0 [facility] Comment on above: Performed By: #### C BC ####[facility] [address] [place], [place] [id number]. Rosaliareagan Oneill Erythrocyte distribution width (RBC) [Ratio] 12.1 % Normal 11.0-15.0 [facility] Comment on above: Performed By: #### C BC ####[facility] [address] [address]Dr. Rosaliareagan Oneill Hematocrit (Bld) [Volume fraction] 38.8 % Normal 36.0-48.0 [facility] Comment on above: Performed By: #### C BC ####[facility] [address] [place], [place] [address]Dr. Rosaliareagan Oneill Hemoglobin (Bld) [Mass/Vol] 12.8 g/dL Normal 12.0-16.0 [facility] Comment on above: Performed By: #### C BC ####[facility] [address] [id number]. Jovanna Oneill IG # 0.06 10e3/ul Critically high 0.00-0.03 [facility] Comment on above: Performed By: #### C BC ####[facility] [address] [id number]. Jovanna Oneill IG % 0.4 % Normal 0.0-0.5 [facility] Comment on above: Performed By: #### C BC ####[facility] [address] [address]Dr. Jovanna Nino LYMPH # 2.5 103/ul Normal 1.2-3.8 [facility] Comment on above: Performed By: #### C BC ####[facility] [address] [address]Dr. Jovanna Oneill Lymphocytes/100 WBC (Bld) 18.1 % Critically low 20.5-60.0 [facility] Comment on above: Performed By: #### C BC ####[facility] [address] [address]Dr. Rosaliareagan Oneill MANUAL DIFF REQ NO Normal [facility] Comment on above: Performed By: #### C BC ####[facility] [address] [address]Dr. Jovanna Oneill MCH (RBC) [Entitic mass] 32.0 pg Normal 26.7-34.0 [facility] Comment on above: Performed By: #### C BC ####[facility] [address] [address]Dr. Jovanna Oneill MCHC (RBC) [Mass/Vol] 33.0 g/dL Normal 29.9-35.2 [facility] Comment on above: Performed By: #### C BC ####[facility] [address] [address]Dr. Jovanna Oneill MCV (RBC) [Entitic vol] 97.0 fL Normal 81.0-99.0 [facility] Comment on above: Performed By: #### C BC ####[facility] [address] [id number]. Jovanna Oneill MONO # 0.6 103/ul Normal 0.3-0.8 [facility] Comment on above: Performed By: #### C BC ####[facility] [address] [id number]. Jovanna Oneill Monocytes/100 WBC (Bld) 4.5 % Normal 1.7-12.0 [facility] Comment on above: Performed By: #### C BC ####[facility] [address] [id number]. Jovanna Oneill NEUT # 10.4 103/ul Critically high 1.4-6.5 The [facility] Comment on above: Performed By: #### C BC ####[facility] [address] [place] [id number]. Jovanna Oneill Neutrophils/100 WBC (Bld) 76.1 % Critically high 43.0-75.0 [facility] Comment on above: Performed By: #### C BC ####[facility] [address] [id number]. Jovanna Oneill Platelet mean volume (Bld) [Entitic vol] 10.9 fL Normal 9.5-13.5 [facility] Comment on above: Performed By: #### C BC ####[facility] [address] [id number]. Jovanna Oneill PLT 193 103/ul Normal 150-450 [facility] Comment on above: Performed By: #### C BC ####[facility] [address] [id number]. Jovanna Oneill RBC 4.00 106/ul Critically low 4.20-5.40 [facility] Comment on above: Performed By: #### C BC ####[facility] [address] [id number]. Jovanna Oneill WBC 13.7 103/ul Critically high 4.0-11.0 The [facility] Comment on above: Performed By: #### C BC ####[facility] [address] [place] [address]Dr. Jovanna Oneill FREE T4on 08-16-2022 Free T4 [Mass/Vol] 0.68 ng/dL Critically low 0.76-1.46 [facility] Comment on above: Performed By: #### L ACT #### [facility] [address] [place] [address] Dr. Jovanna Oneill HS-CRPon 08-16-2022 HS-CRP 1.04 mg/L Normal <=3.00 [facility] Comment on above: Performed By: #### L ACT #### [facility] [address] [place] [address] Dr. Jovanna Oneill PROF 14(COMP METB)on 022 Albumin [Mass/Vol] 3.5 g/dL Normal 3.4-5.0 [facility] Comment on above: Performed By: #### V ITB12 #### [facility] [address] [place] [address] Dr. Jovanna Oneill Albumin/Globulin [Mass ratio] 1.1 {ratio} Normal [facility] Comment on above: Performed By: #### V ITB12 #### [facility] [address] [place] [address] Dr. Jovanna Oneill ALP [Catalytic activity/Vol] 82 U/L Normal 46-116 [facility] Comment on above: Performed By: #### V ITB12 #### [facility] [address] [place] [address] Dr. Jovanna Oneill ALT [Catalytic activity/Vol] 17 U/L Normal 14-59 [facility] Comment on above: Performed By: #### V ITB12 #### [facility] [address] [address] [address] Jovanna Oneill Anion gap [Moles/Vol] 9.6 mmol/L Normal [facility] Comment on above: Performed By: #### V ITB12 #### [facility] [address] [place] [address] Dr. Jovanna Oneill AST [Catalytic activity/Vol] 17 U/L Normal 15-37 [facility] Comment on above: Performed By: #### V ITB12 #### [facility] [address] [address] [address] Jovanna Oneill Bilirubin [Mass/Vol] 0.4 mg/dL Normal 0.2-1.0 [facility] Comment on above: Performed By: #### V ITB12 #### [facility] [address] [place] [address] Dr. Jovanna Oneill Calcium [Mass/Vol] 8.7 mg/dL Normal 8.5-10.1 [facility] Comment on above: Performed By: #### V ITB12 #### [facility] [address] [place] [address] Dr. Jovanna Oneill Chloride [Moles/Vol] 105 mmol/L Normal 98-107 [facility] Comment on above: Performed By: #### V ITB12 #### [facility] [address] [place] [address] Dr. Jovanna Oneill CO2 [Moles/Vol] 30.9 mmol/L Normal 21.0-32.0 [facility] Comment on above: Performed By: #### V ITB12 #### [facility] [address] [place] [address] Dr. Jovanna Oneill Creatinine [Mass/Vol] 0.69 mg/dL Normal 0.55-1.02 [facility] Comment on above: Performed By: #### V ITB12 #### [facility] [address] [place] [address] Dr. Jovanna Oneill EGFR-AF DOMINICAN >60 Normal >=60 [facility] Comment on above: Performed By: #### V ITB12 #### [facility] [address] [place] [address] Dr. Jovanna Oneill EGFR-NON AF DOMINICAN >60 Normal >=60 [facility] Comment on above: Performed By: #### V ITB12 #### [facility] [address] [place] [address] Dr. Jovanna Oneill Globulin (S) [Mass/Vol] 3.1 g/dL Normal [facility] Comment on above: Performed By: #### V ITB12 #### [facility] [address] [address] [address] Jovanna Oneill Glucose [Mass/Vol] 84 mg/dL Normal 74-106 [facility] Comment on above: Performed By: #### V ITB12 #### [facility] [address] [address] [address] Jovanna Oneill Potassium [Moles/Vol] 3.5 mmol/L Normal 3.5-5.1 [facility] Comment on above: Performed By: #### V ITB12 #### [facility] [address] [place] [address] Dr. Jovanna Oneill Protein [Mass/Vol] 6.6 g/dL Normal 6.4-8.2 [facility] Comment on above: Performed By: #### V ITB12 #### [facility] [address] [place] [address] Dr. Jovanna Oneill Sodium [Moles/Vol] 142 mmol/L Normal 136-145 [facility] Comment on above: Performed By: #### V ITB12 #### [facility] [address] [place] [address] Dr. Jovanna Oneill Urea nitrogen [Mass/Vol] 7.0 mg/dL Normal 7.0-18.0 [facility] Comment on above: Performed By: #### V ITB12 #### [facility] [address] [place] [address] Dr. Jovanna Oneill Urea nitrogen/Creatinine [Mass ratio] 10.1 mg/mg Normal [facility] Comment on above: Performed By: #### V ITB12 #### [facility] [address] [place] [address] Dr. Jovanna Oneill PROF CHEM 8 (BAS METB)on Anion gap [Moles/Vol] 8.5 mmol/L Normal [facility] Comment on above: Performed By: #### L ACT #### [facility] [address] [place] [address] Dr. Jovanna Oneill Calcium [Mass/Vol] 8.3 mg/dL Critically low 8.5-10.1 [facility] Comment on above: Performed By: #### L ACT #### [facility] [address] [address] [address] Jovanna Oneill Chloride [Moles/Vol] 105 mmol/L Normal 98-107 [facility] Comment on above: Performed By: #### L ACT #### [facility] [address] [address] [address] Jovanna Oneill CO2 [Moles/Vol] 28.4 mmol/L Normal 21.0-32.0 [facility] Comment on above: Performed By: #### L ACT #### [facility] [address] [address] [address] Jovanna Oneill Creatinine [Mass/Vol] 0.72 mg/dL Normal 0.55-1.02 [facility] Comment on above: Performed By: #### L ACT #### [facility] [address] [address] [address] Jovanna Oneill EGFR-AF DOMINICAN >60 Normal >=60 [facility] Comment on above: Performed By: #### L ACT #### [facility] [address] [address] [address] Jovanna Oneill EGFR-NON AF DOMINICAN >60 Normal >=60 [facility] Comment on above: Performed By: #### L ACT #### [facility] [address] [address] [address] Jovanna Oneill Glucose [Mass/Vol] 242 mg/dL Critically high 74-106 [facility] Comment on above: Performed By: #### L ACT #### [facility] [address] [address] [address] Jovanna Oneill Potassium [Moles/Vol] 2.9 mmol/L Critically low 3.5-5.1 [facility] Comment on above: Performed By: #### L ACT #### [facility] [address] [address] [address] Jovanna Oneill Sodium [Moles/Vol] 138 mmol/L Normal 136-145 [facility] Comment on above: Performed By: #### L ACT #### [facility] [address] [place], [place] [address] Dr. Jovanna Oneill Urea nitrogen [Mass/Vol] 5.0 mg/dL Critically low 7.0-18.0 [facility] Comment on above: Performed By: #### L ACT #### [facility] [address] [place], [place] [address] Dr. Jovanna Oneill Urea nitrogen/Creatinine [Mass ratio] 6.9 mg/mg Normal [facility] Comment on above: Performed By: #### L ACT #### [facility] [address] [place], [place] [address] Dr. Jovanna Oneill TSHon 08-16-2022 TSH 4.977 uIU/mL Critically high 0.358-3.740 [facility] Comment on above: Performed By: #### V ITB12 #### [facility] [address] [address] [address] ABD/PELVIS WO CONon [...] Ayaka LEON Date: 2022-05-02 03:06 Normal [facility] DRUG SCREEN RAPID (URINE)on 05-02-2022 AMP Negative Normal NEGATIVE [facility] Comment on above: Performed By: #### L ACT #### [facility] [address] [address] [address] Jovanna Oneill BAR Negative Normal NEGATIVE [facility] Comment on above: Performed By: #### L ACT #### [facility] [address] [address] [address] Jovanna Oneill BUP Negative Normal NEGATIVE [facility] Comment on above: Performed By: #### L ACT #### [facility] [address] [place] [address] Dr. Jovanna Oneill BZO Negative Normal NEGATIVE [facility] Comment on above: Performed By: #### L ACT #### [facility] [address] [place] [address] Dr. Jovanna Oneill CARA Negative Normal NEGATIVE [facility] Comment on above: Performed By: #### L ACT #### [facility] [address] [place] [address] Dr. Jovanna Oneill CUT-OFFS SEE BELOW Normal [facility] Comment on above: Result Comment: [...] ng/mL Performed By: #### L ACT #### [facility] [address] [place] [address] Dr. Jovanna Oneill DRUG CUT HEADER DRUG CLASS TEST SYSTEM CUT-OFF CONCENTRATIONS ARE FOLLOWS: Normal [facility] Comment on above: Performed By: #### L ACT #### [facility] [address] [address] [address] Jovanna Oneill mAMP Negative Normal NEGATIVE [facility] Comment on above: Performed By: #### L ACT #### [facility] [address] [address] [address] Jovanna Oneill MTD Negative Normal NEGATIVE [facility] Comment on above: Performed By: #### L ACT #### [facility] [address] [address] [address] Jovanna Oneill OPI Positive Abnormal NEGATIVE [facility] Comment on above: Performed By: #### L ACT #### [facility] [address] [place] [address] Dr. Jovanna Oneill OXY Negative Normal NEGATIVE [facility] Comment on above: Performed By: #### L ACT #### [facility] [address] [place] [address] Dr. Jovanna Oneill PCP Negative Normal NEGATIVE [facility] Comment on above: Performed By: #### L ACT #### [facility] [address] [address] [address] Jovanna Oneill PPX Negative Normal NEGATIVE [facility] Comment on above: Performed By: #### L ACT #### [facility] [address] [place] [address] Dr. Jovanna Oneill TCA Negative Normal NEGATIVE [facility] Comment on above: Performed By: #### L ACT #### [facility] [address] [place] [address] Dr. Jovanna Oneill THC Positive Abnormal NEGATIVE [facility] Comment on above: Performed By: #### L ACT #### [facility] [address] [place] [address] Dr. Jovanna Oneill ER URINE PROFILEon 2 Bilirubin Ql (U) Negative Normal NEGATIVE [facility] Comment on above: Performed By: #### L ACT #### [facility] [address] [place] [address] Dr. Jovanna Oneill Clarity (U) CLEAR Normal CLEAR [facility] Comment on above: Performed By: #### L ACT #### [facility] [address] [place] [address] Dr. Jovanna Oneill Color (U) LT. YELLOW Normal YELLOW [facility] Comment on above: Performed By: #### L ACT #### [facility] [address] [place] [address] Dr. Jovanna Oneill ERUSTACEY A micrscopic examination will be performed if indicated. Normal [facility] Comment on above: Performed By: #### L ACT #### [facility] [address] [place] [address] Dr. Jovanna Oneill Glucose Ql (U) Negative Normal NEGATIVE [facility] Comment on above: Performed By: #### L ACT #### [facility] [address] [place] [address] Dr. Jovanna Oneill Hemoglobin Ql (U) Negative Normal NEGATIVE [facility] Comment on above: Performed By: #### L ACT #### [facility] [address] [place] [address] Dr. Jovanna Oneill Ketones Ql (U) Negative Normal NEGATIVE [facility] Comment on above: Performed By: #### L ACT #### [facility] [address] [place] [address] Dr. Jovanna Oneill LEUKOCYTES Negative Normal NEGATIVE [facility] Comment on above: Performed By: #### L ACT #### [facility] [address] [place] [address] Dr. Jovanna Oneill Nitrite Ql (U) Negative Normal NEGATIVE [facility] Comment on above: Performed By: #### L ACT #### [facility] [address] [place] [address] Dr. Jovanna Oneill pH (U) 6.0 [pH] Normal 5-9 [facility] Comment on above: Performed By: #### L ACT #### [facility] [address] [place] [address] Dr. Jovanna Oneill SPEC GRAVITY <=1.005 Abnormal 1.005-<=1.025 [facility] Comment on above: Performed By: #### L ACT #### [facility] [address] [place], [place] [id number] Dr. Jovanna Oneill UA PROTEIN Negative Normal NEGATIVE/ TRACE [facility] Comment on above: Performed By: #### L ACT #### [facility] [address] [place] [address] Dr. Jovanna Oneill UR MICRO IND NOT INDICATED Normal [facility] Comment on above: Performed By: #### L ACT #### [facility] [address] [place] [address] Dr. Jovanna Oneill Urobilinogen Qn (U) 0.2 {Isabella'U}/dL Normal 0.2 - 1. 0 [facility] Comment on above: Performed By: #### L ACT #### [facility] [address] [place] [address] Dr. Jovanna Oneill CBC AUTO DIFFon 04-20-2022 BASO # 0.0 103/ul Normal 0.0-0.1 [facility] Comment on above: Performed By: #### L ACT #### [facility] [address] [place] [address] Dr. Jovanna Oneill Basophils/100 WBC (Bld) 0.1 % Critically low 0.2-2.0 [facility] Comment on above: Performed By: #### L ACT #### [facility] [address] [place] [address] Dr. Jovanna Oneill EO # 0.0 103/ul Normal 0.0-0.7 [facility] Comment on above: Performed By: #### L ACT #### [facility] [address] [place] [address] Dr. Jovanna Oneill Eosinophils/100 WBC (Bld) 0.1 % Critically low 0.9-7.0 [facility] Comment on above: Performed By: #### L ACT #### [facility] [address] [place] [address] Dr. Jovanna Oneill Erythrocyte distribution width (RBC) [Ratio] 12.6 % Normal 11.0-15.0 [facility] Comment on above: Performed By: #### L ACT #### [facility] [address] [place] [address] Dr. Jovanna Oneill Hematocrit (Bld) [Volume fraction] 38.8 % Normal 36.0-48.0 [facility] Comment on above: Performed By: #### L ACT #### [facility] [address] [address] [address] Jovanna nOeill Hemoglobin (Bld) [Mass/Vol] 12.6 g/dL Normal 12.0-16.0 [facility] Comment on above: Performed By: #### L ACT #### [facility] [address] [address] [address] Jovanna Oneill IG # 0.13 10e3/ul Critically high 0.00-0.03 [facility] Comment on above: Performed By: #### L ACT #### [facility] [address] [place] [address] Dr. Jovanna Oneill IG % 1.0 % Critically high 0.0-0.5 [facility] Comment on above: Performed By: #### L ACT #### [facility] [address] [address] [address] Jovanna Oneill LYMPH # 1.1 103/ul Critically low 1.2-3.8 [facility] Comment on above: Performed By: #### L ACT #### [facility] [address] [place] [address] Dr. Jovanna Oneill Lymphocytes/100 WBC (Bld) 8.3 % Critically low 20.5-60.0 [facility] Comment on above: Performed By: #### L ACT #### [facility] [address] [address] [address] Jovanna Oneill MANUAL DIFF REQ NO Normal [facility] Comment on above: Performed By: #### L ACT #### [facility] [address] [address] [address] Jovanna Oneill MCH (RBC) [Entitic mass] 31.0 pg Normal 26.7-34.0 [facility] Comment on above: Performed By: #### L ACT #### [facility] [address] [place] [address] Dr. Jovanna Oneill MCHC (RBC) [Mass/Vol] 32.5 g/dL Normal 29.9-35.2 [facility] Comment on above: Performed By: #### L ACT #### [facility] [address] [place] [address] Dr. Jovanna Oneill MCV (RBC) [Entitic vol] 95.3 fL Normal 81.0-99.0 [facility] Comment on above: Performed By: #### L ACT #### [facility] [address] [address] [address] Jovanna Oneill MONO # 0.8 103/ul Normal 0.3-0.8 [facility] Comment on above: Performed By: #### L ACT #### [facility] [address] [place] [address] Dr. Jovanna Oneill Monocytes/100 WBC (Bld) 5.8 % Normal 1.7-12.0 [facility] Comment on above: Performed By: #### L ACT #### [facility] [address] [address] [address] Jovanna Oneill NEUT # 11.4 103/ul Critically high 1.4-6.5 [facility] Comment on above: Performed By: #### L ACT #### [facility] [address] [place] [address] Dr. Jovanna Oneill Neutrophils/100 WBC (Bld) 84.7 % Critically high 43.0-75.0 [facility] Comment on above: Performed By: #### L ACT #### [facility] [address] [address] [address] Jovanna Oneill Platelet mean volume (Bld) [Entitic vol] 10.1 fL Normal 9.5-13.5 [facility] Comment on above: Performed By: #### L ACT #### [facility] [address] [place] [address] Dr. Jovanna Oneill PLT 205 103/ul Normal 150-450 [facility] Comment on above: Performed By: #### L ACT #### [facility] [address] [place] [address] Dr. Jovanna Oneill RBC 4.07 106/ul Critically low 4.20-5.40 [facility] Comment on above: Performed By: #### L ACT #### [facility] [address] [address] [address] Jovanna Oneill WBC 13.4 103/ul Critically high 4.0-11.0 [facility] Comment on above: Performed By: #### L ACT #### [facility] [address] [address] [address] Jovanna Oneill DRUG SCREEN RAPID (URINE)on 04-20-2022 AMP Negative Normal NEGATIVE [facility] Comment on above: Performed By: #### U MICRO, ERUR, DRUGRPD ####[facility] [address] [address]Dr. Jovanna Oneill BAR Negative Normal NEGATIVE [facility] Comment on above: Performed By: #### U MICRO, ERUR, DRUGRPD ####[facility] [address] [address]Dr. Jovanna Oneill BUP Negative Normal NEGATIVE [facility] Comment on above: Performed By: #### U MICRO, ERUR, DRUGRPD ####[facility] [address] [address]Dr. Jovanna Oneill BZO Negative Normal NEGATIVE [facility] Comment on above: Performed By: #### U MICRO, ERUR, DRUGRPD ####[facility] [address] [address]Dr. Jovanna Oneill CARA Negative Normal NEGATIVE [facility] Comment on above: Performed By: #### U MICRO, ERUR, DRUGRPD ####[facility] [address] [address]Dr. Jovanna Oneill CUT-OFFS SEE BELOW Normal [facility] Comment on above: Result Comment: [...] Performed By: #### U MICRO, ERUR, DRUGRPD ####[facility] [address] [address]Dr. Jovanna Oneill DRUG CUT HEADER DRUG CLASS TEST SYSTEM CUT-OFF CONCENTRATIONS ARE FOLLOWS: Normal [facility] Comment on above: Performed By: #### U MICRO, ERUR, DRUGRPD ####[facility] [address] [place], [place] [address]Dr. Jovanna Oneill mAMP Negative Normal NEGATIVE [facility] Comment on above: Performed By: #### U MICRO, ERUR, DRUGRPD ####[facility] [address] [place], [place] [address]Dr. Jovanna Oneill MTD Negative Normal NEGATIVE [facility] Comment on above: Performed By: #### U MICRO, ERUR, DRUGRPD ####[facility] [address] [place], [place] [address]Dr. Jovanna Oneill OPI Positive Abnormal NEGATIVE [facility] Comment on above: Performed By: #### U MICRO, ERUR, DRUGRPD ####[facility] [address] [place], [place] [address]Dr. Jovanna Oneill OXY Negative Normal NEGATIVE [facility] Comment on above: Performed By: #### U MICRO, ERUR, DRUGRPD ####[facility] [address] [place], [place] [address]Dr. Jovanna Oneill PCP Negative Normal NEGATIVE [facility] Comment on above: Performed By: #### U MICRO, ERUR, DRUGRPD ####[facility] [address] [place], [place] [address]Dr. Jovanna Oneill PPX Negative Normal NEGATIVE [facility] Comment on above: Performed By: #### U MICRO, ERUR, DRUGRPD ####[facility] [address] [place], [place] [address]Dr. Jovanna Oneill TCA Negative Normal NEGATIVE [facility] Comment on above: Performed By: #### U MICRO, ERUR, DRUGRPD ####[facility] [address] [address]Dr. Jovanna Oneill THC Positive Abnormal NEGATIVE [facility] Comment on above: Performed By: #### U MICRO, ERUR, DRUGRPD ####[facility] [address] [address]Dr. Jovanna Oneill ER URINE PROFILEon 2 Bilirubin Ql (U) Negative Normal NEGATIVE The [facility] Comment on above: Performed By: #### U MICRO, ERUR, DRUGRPD ####[facility] [address] [place], [place] [address]Dr. Jovanna Oneill Clarity (U) CLEAR Normal CLEAR [facility] Comment on above: Performed By: #### U MICRO, ERUR, DRUGRPD ####[facility] [address] [place], [place] [address]Dr. Jovanna Oneill Color (U) LT. YELLOW Normal YELLOW [facility] Comment on above: Performed By: #### U MICRO, ERUR, DRUGRPD ####[facility] [address] [place], [place] [address]Dr. Jovanna Oneill ERUAHD A micrscopic examination will be performed if indicated. Normal [facility] Comment on above: Performed By: #### U MICRO, ERUR, DRUGRPD ####[facility] [address] [place], [place] [address]Dr. Jovanna Oneill Glucose Ql (U) >1000 Abnormal NEGATIVE [facility] Comment on above: Performed By: #### U MICRO, ERUR, DRUGRPD ####[facility] [address] [place], [place] [address]Dr. Jovanna Oneill Hemoglobin Ql (U) Negative Normal NEGATIVE The [facility] Comment on above: Performed By: #### U MICRO, ERUR, DRUGRPD ####[facility] [address] [place], [place] [address]Dr. Jovanna Oneill Ketones Ql (U) Negative Normal NEGATIVE [facility] Comment on above: Performed By: #### U MICRO, ERUR, DRUGRPD ####[facility] [address] [address]Dr. Jovanna Oneill LEUKOCYTES Negative Normal NEGATIVE [facility] Comment on above: Performed By: #### U MICRO, ERUR, DRUGRPD ####[facility] [address] [address]Dr. Jovanna Oneill Nitrite Ql (U) Negative Normal NEGATIVE [facility] Comment on above: Performed By: #### U MICRO, ERUR, DRUGRPD ####[facility] [address] [address]Dr. Jovanna Oneill pH (U) 6.5 [pH] Normal 5-9 [facility] Comment on above: Performed By: #### U MICRO, ERUR, DRUGRPD ####[facility] [address] [address]Dr. Jovanna Oneill Protein (U) [Mass/Vol] 30 mg/dL Abnormal NEGATIVE/ TRACE [facility] Comment on above: Performed By: #### U MICRO, ERUR, DRUGRPD ####[facility] [address] [place], [place] [address]Dr. Jovanna Oneill SPEC GRAVITY 1.015 Normal 1.005-<=1.025 [facility] Comment on above: Performed By: #### U MICRO, ERUR, DRUGRPD ####[facility] [address] [address]Dr. Jovanna Oneill UR MICRO IND INDICATED Normal [facility] Comment on above: Performed By: #### U MICRO, ERUR, DRUGRPD ####[facility] [address] [address]Dr. Jovanna Oneill Urobilinogen Qn (U) 1.0 {Isabella'U}/dL Normal 0.2 - 1. 0 [facility] Comment on above: Performed By: #### U MICRO, ERUR, DRUGRPD ####[facility] [address] [address]Dr. Jovanna Oneill LACTATE/LACTIC ACIDon 06-09- 2022 Lactate [Moles/Vol] 1.7 mmol/L Normal 0.4-1.9 [facility] Comment on above: Performed By: #### L ACT #### [facility] [address] [place] [address] Dr. Jovanna Oneill PROF 14(COMP METB)on 022 Albumin [Mass/Vol] 3.4 g/dL Normal 3.4-5.0 [facility] Comment on above: Performed By: #### V ITB12 #### [facility] [address] [place] [address] Dr. Jovanna Oneill Albumin/Globulin [Mass ratio] 1.1 {ratio} Normal [facility] Comment on above: Performed By: #### V ITB12 #### [facility] [address] [place] [address] Dr. Jovanna Oneill ALP [Catalytic activity/Vol] 99 U/L Normal 46-116 [facility] Comment on above: Performed By: #### V ITB12 #### [facility] [address] [place] [address] Dr. Jovanna Oneill ALT [Catalytic activity/Vol] 32 U/L Normal 14-59 [facility] Comment on above: Performed By: #### V ITB12 #### [facility] [address] [place] [address] Dr. Jovanna Oneill Anion gap [Moles/Vol] 10.0 mmol/L Normal [facility] Comment on above: Performed By: #### V ITB12 #### [facility] [address] [place] [address] Dr. Jovanna Oneill AST [Catalytic activity/Vol] 38 U/L Critically high 15-37 [facility] Comment on above: Performed By: #### V ITB12 #### [facility] [address] [place] [address] Dr. Jovanna Oneill Bilirubin [Mass/Vol] 0.8 mg/dL Normal 0.2-1.0 [facility] Comment on above: Performed By: #### V ITB12 #### [facility] [address] [address] [address] Jovanna Oneill Calcium [Mass/Vol] 8.1 mg/dL Critically low 8.5-10.1 [facility] Comment on above: Performed By: #### V ITB12 #### [facility] [address] [place] [address] Dr. Jovanna Oneill Chloride [Moles/Vol] 102 mmol/L Normal 98-107 [facility] Comment on above: Performed By: #### V ITB12 #### [facility] [address] [place] [address] Dr. Jovanna Oneill CO2 [Moles/Vol] 31.1 mmol/L Normal 21.0-32.0 [facility] Comment on above: Performed By: #### V ITB12 #### [facility] [address] [place] [address] Dr. Jovanna Oneill Creatinine [Mass/Vol] 0.78 mg/dL Normal 0.55-1.02 [facility] Comment on above: Performed By: #### V ITB12 #### [facility] [address] [place] [address] Dr. Jovanna Oneill EGFR-AF DOMINICAN >60 Normal >=60 [facility] Comment on above: Performed By: #### V ITB12 #### [facility] [address] [place] [address] Dr. Jovanna Oneill EGFR-NON AF DOMINICAN >60 Normal >=60 [facility] Comment on above: Performed By: #### V ITB12 #### [facility] [address] [place] [address] Dr. Jovanna Oneill Globulin (S) [Mass/Vol] 3.2 g/dL Normal [facility] Comment on above: Performed By: #### V ITB12 #### [facility] [address] [place] [address] Dr. Jovanna Oneill Glucose [Mass/Vol] 251 mg/dL Critically high 74-106 T [facility] Comment on above: Performed By: #### V ITB12 #### [facility] [address] [place] [address] Dr. Jovanna Oneill Potassium [Moles/Vol] 3.1 mmol/L Critically low 3.5-5.1 [facility] Comment on above: Performed By: #### V ITB12 #### [facility] [address] [address] [address] Jovanna Oneill Protein [Mass/Vol] 6.6 g/dL Normal 6.4-8.2 [facility] Comment on above: Performed By: #### V ITB12 #### [facility] [address] [address] [address] Jovanna Oneill Sodium [Moles/Vol] 140 mmol/L Normal 136-145 [facility] Comment on above: Performed By: #### V ITB12 #### [facility] [address] [address] [address] Jovanna Oneill Urea nitrogen [Mass/Vol] 8.0 mg/dL Normal 7.0-18.0 [facility] Comment on above: Performed By: #### V ITB12 #### [facility] [address] [address] [address] Jovanna Oneill Urea nitrogen/Creatinine [Mass ratio] 10.3 mg/mg Normal [facility] Comment on above: Performed By: #### V ITB12 #### [facility] [address] [address] [address] Jovanna Oneill TROPONIN, HIGH SENSITIVITYon 04-20-2022 HSTROP 13.8 pg/mL Normal 4.0-51.3 [facility] Comment on above: Result Comment: CUT- OFF POINTS HAVE BEEN ESTABLISHED BASED ON THE FOURTH UNIVERSAL DEFINITIONS OF MYOCARDIAL INFARCTION. THE UPPER REFERENCE LIMIT (URL) OF TROPONIN, DEFINED THE 99TH PERCENTILE OF cTnI DISTRIBUTION IN A REFERENCE POPULATION, HAS BEEN CONFIRMED THE DECISION THRESHOLD FOR CT DIAGNOSIS. Performed By: #### V ITB12 #### [facility] [address] [address] [address] Jovanna Oneill URINE MICROSCOPIC ONLYon BACTERIA TRACE Abnormal NONE SEEN [facility] Comment on above: Performed By: #### U MICRO, ERUR, DRUGRPD ####[facility] [address] [address]Dr. Jovanna Oneill Bacteria identified Cx Nom (U) NOT INDICATED Normal [facility] Comment on above: Performed By: #### U MICRO, ERUR, DRUGRPD ####[facility] [address] [address]Dr. Jovanna Oneill CAST SEEN Abnormal NONE SEEN [facility] Comment on above: Performed By: #### U MICRO, ERUR, DRUGRPD ####[facility] [address] [address]Dr. Jovanna Oneill Crystals LM Nom (Urine sed) NONE SEEN Normal NONE SEEN [facility] Comment on above: Performed By: #### U MICRO, ERUR, DRUGRPD ####[facility] [address] [address]Dr. Jovanna Oneill Epithelial cells LM Ql (Urine sed) FEW Abnormal NONE SEEN /RARE [facility] Comment on above: Performed By: #### U MICRO, ERUR, DRUGRPD ####[facility] [address] [address]Dr. Jovanna Oneill HYALINE CAST FEW Normal [facility] Comment on above: Performed By: #### U MICRO, ERUR, DRUGRPD ####[facility] [address] [address]Dr. Jovanna Oneill MUCOUS NONE SEEN Normal NONE SEEN [facility] Comment on above: Performed By: #### U MICRO, ERUR, DRUGRPD ####[facility] [address] [address]Dr. Jovanna Oneill RBC 0-2 Normal 0-2 [facility] Comment on above: Performed By: #### U MICRO, ERUR, DRUGRPD ####[facility] [address] [address]Dr. Jovanna Oneill WBC 0-2 Abnormal NONE SEEN [facility] Comment on above: Performed By: #### U MICRO, ERUR, DRUGRPD ####[facility] [address] [address]DrJhony Oneill XR CHEST 1 Von 04-20-2022 XR [...] by: Ayaka LEON Date: 2022-04-20 02:33 Normal [facility] XR ANKLE RT MIN 3 [...] by: KOBE HICKEY Date: 2022-03-26 09:41 Normal [facility] Vital Signs Date Time Vital Sign Value Performing Clinician Felicia hunt 08-13-2024 12:24-0400 Body height 154.94 cm PHYSICIAN NO [facility] 08-13-2024 12:24-0400 Body temperature 97.8 [degF] PHYSICIAN NO [facility] 08-13-2024 12:24-0400 Body weight 48 kg PHYSICIAN NO [facility] 08-13-2024 12:24-0400 Diastolic blood pressure 98 mm[Hg] PHYSICIAN NO [facility] 08-13-2024 12:24-0400 Heart rate 84 /min PHYSICIAN NO [facility] 08-13-2024 12:24-0400 Respiratory rate 18 /min PHYSICIAN NO [facility] 08-13-2024 12:24-0400 SaO2% (BldA) [Mass fraction] 98 % PHYSICIAN NO [facility] 08-13-2024 12:24-0400 Systolic blood pressure 160 mm[Hg] PHYSICIAN NO [facility] Encounters Encounter Date Encounter Type Care Provider Facility Start: 08-13-2024 End: 08-13-2024 Emergency department patient visit PHYSICIAN NO [facility] Work Phone: Start: 07-10-2024 End: 07-11-2024 ambulatory Vikram Mckenna MD Facility:[facility] Start: 06-30-2024 End: 07-02-2024 ambulatory [facility] Start: 06-09-2024 End: 06-11-2024 ambulatory [facility] Start: 05-26-2024 ambulatory [place] Start: 05-26-2024 Encounter for other preprocedural examination [facility] Start: 05-22-2024 Non-patient / Non-visit PHYSICIAN NO [facility] Work Phone: Start: 03-23-2023 End: 03-23-2023 ambulatory ABDULKADIR OLIVAMORyland . Facility:[facility] Start: 03-05-2023 End: 03-06-2023 ambulatory [...] Facility:[facility] Start: 10-06-2022 ambulatory Woo FALCON Facility :[facility] Start: 10-03-2022 End: 10-04-2022 ambulatory TATUM SHAMMO Facility:[facility] Start: 09-14-2022 Encounter for genera l adult medical examination without abnormal findings TATUM SHAMMO [facility] Start: 09-12-2022 End: 09-13-2022 ambulatory [...] ALIA Facility:[facility] Start: 06-22-2022 End: 06-22-2022 ambulatory [facility] Facility:[facility] Start: 05-02-2022 End: 05-02-2022 ambulatory [facility] Facility:[facility] Start: 04-20-2022 End: 04-20-2022 ambulatory CAROL ANN ALIA Facility:[facility] Start: 03-26-2022 End: 03-26-2022 ambulatory DARRIN ANA . Facility: Plan of Treatment Date Care Activity Detail Author Patient Education Managing acute pain at home [facility] Work Phone: Patient referral [facility] Work Phone: Payers Date Payer Category Payer Self-pay 2024 Unknown 1975 Unknown [id number] 2.16.8 [id number] 1973 Unknown [id number] 2.16.8 40.1.960142.3.579.2.727 1973 Unknown [id number] 2.16.84 0.1.634781.3.579.2.593 1973 Unknown [id number] 2.16.84 0.1.169094.3.579.2.593 1973 Unknown [id number] 2.16.84 0.1.814736.3.579.2.593 1973 Unknown [id number] 2.16.84 0.1.006256.3.579.2.593 1973 Unknown [id number] 2.16.84 0.1.451597.3.579.2.593 1973 Unknown [id number] 2.16.84 0.1.946161.3.579.2.593 1973 Unknown [id number] 2.16.84 0.1.618329.3.579.2.593 1973 Unknown [id number] 2.16.84 0.1.294340.3.579.2.593 1973 Unknown [id number] 2.16.84 0.1.848283.3.579.2.593 1973 Unknown [id number] 2.16.84 0.1.997581.3.579.2.593 1973 Unknown [id number] 2.16.84 0.1.526838.3.579.2.593 1973 Unknown [id number] 2.16.84 0.1.060899.3.579.2.593 1973 Unknown [id number] 2.16.84 0.1.144683.3.579.2.593 1973 Unknown [id number] 2.16.84 0.1.870534.3.579.2.593 1973 Unknown [id number] 2.16.84 0.1.145518.3.579.2.593 1973 Unknown [id number] 2.16.84 0.1.237561.3.579.2.593 1973 Unknown [id number] 2.16.84 0.1.550962.3.579.2.593 1973 Unknown [id number] 2.16.84 0.1.513755.3.579.2.593 1973 Unknown [id number] 2.16.84 0.1.057090.3.579.2.593 1973 Unknown [id number] 2.16.84 0.1.705607.3.579.2.593 1973 Unknown [id number] 2.16.84 0.1.934136.3.579.2.593 1973 Unknown [id number] 2.16.84 0.1.447911.3.579.2.593 1973 Unknown [id number] 2.16.8 40.1.105079.3.579.2.174 1973 Unknown [id number] 2.16.8 40.1.639058.3.579.2.174 1973 Unknown [id number] 2.16.8 40.1.653697.3.579.2.174 1973 Unknown [id number] 2.16.8 40.1.318457.3.579.2.174 1973 Unknown [id number] 2.16.8 40.1.585059.3.579.2.174 1973 Unknown [id number] 2.16. 840.1.884591.3.579.2.196 1959 Self-pay [id number] 1959 Unknown [id number] 1959 Unknown [id number] Unknown [id number] 2.16.8 40.1.913740.3.579.2.531 Social History Date Type Detail Facility Start: 08-13-2024 [facility] Start: 1975 Sex Assigned At Female F [facility] Discharge summary note 07-11-2024 Note Date & [...] less than 30 minutes Medications New Medications [employer] [address] [place] [id number], [phone] cefdinir (cefdinir 300 mg oral capsule) 1 [...] by Vikram Mckenna MD 07/11/24 11:37 EDT [facility] History and physical note 07-10-2024 [...] this time too much in pain --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 [id number] [id number] [id number] [id number] [id number] [id number] Raul Davidson MD PhD (Electronically signed by) Verified: 07/16/24 13:53 [facility] Comment on above: Performed By: #### [facility] #### [facility] (DEFAULT) [address] [place] [address] [facility] [address] [place] [address] Clinical Note 03-05-2023 Note Date & Type [...] by: FRANCES AGUSTIN Date: 2023-03-05 11:36 [facility] Clinical Note 08-30-2022 Note Date [...] by: FRANCES AGUSTIN Date: 2022-08-30 10:20 [facility] Clinical Note 08-30-2022 Note Date [...] by: FRANCES AGUSTIN Date: 2022-08-30 10:20 [facility] Clinical Note 06-22-2022 Note Date [...] authenticated by: RJ YANEZ Date: 2022-06-22 07:13 [facility] Clinical Note 06-22-2022 Note Date [...] authenticated by: RJ YANEZ Date: 2022-06-22 07:13 [facility] Evaluation note Note Date & Type Note Facility Evaluation note No assessment information availa ble [facility] Work Phone: Hospital Discharge instructions Note Date & Type Note Facility Hospital Discharge instructions Additional Instructions Follow-up with your surgeon for further evaluation or pain medication. [facility] Work Phone: Summary Purpose Family History No Family History Records FoundNo Family History Records FoundNo Family History Records FoundNo Family History Records FoundNo Family History Records Found Advance Directives No Advanced Directives Records Found Advance Directive Response Recorded Date/ Time Advance Directives No August 13, 2024 12:31pm Chief Complaint and Reason for Visit Chief Complaint rt index finger pain Additional Source Comments INFORMATION SOURCE (unrecogn ized section and content) DATE CREATED AUTHOR [facility] CREATED AUTHOR AUTHOR'S ORGANIZ ATION 03/24/2023 [facility] DATE CREATED AUTHOR AUTHOR'S ORGANIZ ATION 07/04/2024 Astrid Yuniorjennifer ruiz DATE CREATED AUTHOR AUTHOR'S ORGANIZ ATION 07/18/2024 [facility] DATE CREATED AUTHOR AUTHOR'S ORGANIZ ATION 08/28/2024 [facility] Care Teams (unrecognized sec tion and content) Team Status: Active Member Role Status Dates PHYSICIAN NO FAMILY Primary Care Provider Active Team Status: Active Member Role Status Dates Sol Willoughby Primary Care Provider Active Start: May 22, 2024 Hossein Kramer DO Attending Provider Active Sta rt: May 22, 2024 Team Status: Inactive Member Role Status Dates PHYSICIAN NO FAMILY Primary Care Provider Active Start: August 13, 2024 End: August 13, 2024 Zackery Griggs APRN Emergency Provider Active Start: August 13, 2024 End: August 13, 2024 Goals (unrecognized section and content) Goals may be documented in a n alternate section FOR RECORDS PERTAINING TO PATIENTS WHO ARE [...] BE BASED ON THE PRIMARY CLINICAL RECORDS. [employer] provides no warranty or guarantee of the accuracy or completeness of information in this document.
== END 2024-09-08 13:31 | disposition home or self-care (01) ==
LOC: EC 13:30
PROVIDERS: Visit Provider Student in an Organized Health Care Education/Training Program
DX: S62.630B Displaced fracture of distal phalanx of right index finger, initial encounter for open fracture (principal)
CPT/HCPCS: 73140

== ENCOUNTER 2024-10-07 21:50 | Emergency (ER) | payer OTHER, SELFPAY ==
[2024-10-07 21:54] VITALS: BP 122/92; PULSE 76; TEMP 36.8; O2SAT 98; BMI 19.8
--- OUTSIDE RECORDS SUMMARY | 2024-10-07 21:56 | XMS_ITS | CCD ---
Author Organization [facility] Team Providers Care Pathology Specialist Name Role Phone Woo FALCON Attending [...] Attending Unavailable ANA ., DARRIN Admitting Unavailable [facility] Primary Care Unavailable KOBE HICKEY Consulting Unavailable MARKER ., DR MAX Attending Unavailable MARKER ., DR MAX Admitting Unavailable MARKER ., DR MAX Consulting Unavailable [facility] Primary Care Unavailable LEON, JIMMY Consulting Unavailable SHAMMO, TATUM Primary Care Unavailable SAI, VAUGHN Admitting Unavailable SAI, VAUGHN Attending Unavailable SAI, VAUGHN Consulting Unavailable WOO PAIGE Consulting Unavailable SHAMMO, TATUM Consulting Unavailable [facility] Primary Care Unavailable SAI, VAUGHN Admitting Unavailable SAI, VAUGHN Attending Unavailable BEAU, DR RJ Foster Consulting Unavailable HAY ., DR BIRD Consulting Unavailable SAI, VAUGHN Consulting Unavailable ALIA, CAROL ANN Admitting Unavailable ALIA, CAROL ANN Attending Unavailable [facility] Primary Care Unavailable SHAMMO, TATUM Admitting Unavailable SHAMMO, TATUM Attending Unavailable SHAMMO, TATUM Primary Care Unavailable SHAMMO, TATUM Consulting Unavailable [facility] Primary Care Unavailable LUIS EDUARDO, DR LAYA [...] Medication Allergies] Propensity to adverse reactions (disorder) [facility] Repository Problems Active Problems Problem Classification [...] 01-15-2023 Chronic Other aftercare (1 source) 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 [facility] Comment on above: Performed By: #### A NAC #### [place] [address] C NOE - ---- Final No anaerobic growth after 72 hrs. [facility] Comment on above: Performed By: #### S BS #### [facility] (DEFAULT) [address] [place], [place] [id number] C NOE - ---- Final No anaerobic growth after 72 hrs. [facility] Comment on above: Performed By: #### A NAC #### [address] [address] C NOE - ---- Final No anaerobic growth after 72 hrs. [facility] Comment on above: Performed By: #### S BS #### [facility] (DEFAULT) [address] [place] [address] [address] C Sterile BSon 07-12-2024 C Sterile BS [...] <=0.25 V Trimethoprim/Sulfa S <=20 V Normal [facility] Comment on above: Performed By: #### S BSC #### [facility] (DEFAULT) [address] [place] [address] [facility] [address] [place] [address] C Sterile BS - ---- Final Light [...] <=10 V Vancomycin S 1 V Normal [facility] Comment on above: Performed By: #### S [facility] #### [facility] (DEFAULT) [address] [place] [address] [facility] [address] [place] [address] C Sterile BS - ---- Final Moderate [...] <=10 V Vancomycin S 1 V Normal [facility] Comment on above: Performed By: #### S [facility] #### [facility] (DEFAULT) [address] [place] [address] [facility] [address] [place] [address], [place] [address] C Sterile BS - ---- Final Moderate [...] <=10 V Vancomycin S 1 V Normal [facility] Comment on above: Performed By: #### S BSC #### [facility] (DEFAULT) [address] [place] [address] [facility] [address] [place] [address] .eGFRon 07-11-2024 GFR/1.73 sq M.predicted MDRD (S/P/Bld) [Vol rate/Area] mL/min/{1.73_m2} Normal >=60 [facility] Comment on above: Result Comment: [facility] Laboratories have implemented the eGFR [...] years Performed By: #### A NAC #### [facility] [address] [place] [address] CBC w/ Diffon 07-11-2024 Erythrocyte distribution width (RBC) [Ratio] 13.4 % Normal 11.6-14.8 [facility] Comment on above: Performed By: #### S BSC #### [facility] (DEFAULT) [address] [place] [address] [facility] [address] [place] [address] Hematocrit (Bld) [Volume fraction] 37.5 % Normal 36.0-46.0 [facility] Comment on above: Performed By: #### S BSC #### [facility] (DEFAULT) [address] [place] [address] [facility] [address] [place] [address] Hemoglobin (Bld) [Mass/Vol] 12.6 g/dL Normal 12.0-16.0 [facility] Comment on above: Performed By: #### S BSC #### [facility] (DEFAULT) [address] [place] [address] [facility] [address] [place] [address] MCH (RBC) [Entitic mass] 32.5 pg Normal 27.0-35.0 [facility] Comment on above: Performed By: #### S BSC #### [facility] (DEFAULT) [address] [place] [address] [facility] [address] [place] [address] MCHC 33.7 % Normal 31.0-37.0 [facility] Comment on above: Performed By: #### S BSC #### [facility] (DEFAULT) [address] [place] [address] [facility] [address] [place] [address] MCV (RBC) [Entitic vol] 96.6 fL Normal 80.0-100.0 [facility] Comment on above: Performed By: #### S BSC #### [facility] (DEFAULT) [address] [place] [address] [facility] [address] [facility] [address] Platelet 172 x10*3/mcL Normal 150-450 [facility] Comment on above: Performed By: #### S BSC #### [facility] (DEFAULT) [address] [place] [address] [facility] [address] [place] [address] Platelet mean volume (Bld) [Entitic vol] 9.3 fL Normal 6.7-10.6 [facility] Comment on above: Performed By: #### S BSC #### [facility] (DEFAULT) [address] [place] [address] [facility] [address] [place] [address] RBC 3.88 x10*6/mcL Normal 3.80-5.20 [facility] Comment on above: Performed By: #### S BSC #### [facility] (DEFAULT) [address] [place] [address] [facility] [address] [place] [address] WBC 8.8 x10*3/mcL Normal 4.5-11.0 [facility] Comment on above: Performed By: #### S BSC #### [facility] (DEFAULT) [address] [place] [address] [facility] [address] [place] [address] CMPon 07-11-2024 Albumin [Mass/Vol] 3.5 g/dL Normal 3.2-4.9 [facility] Comment on above: Performed By: #### S BSC #### [facility] (DEFAULT) [address] [place] [address] [facility] [address] [place] [address] Albumin/Globulin [Mass ratio] 1.5 {ratio} Normal 1.1-2.2 [facility] Comment on above: Performed By: #### S BSC #### [facility] (DEFAULT) [address] [place] [address] [facility] [address] [place] [address] Alk Phos 66 IU/L Normal 32-91 [facility] Comment on above: Performed By: #### S BSC #### [facility] (DEFAULT) [address] [facility] [address] [facility] [address] [place] [address] ALT [Catalytic activity/Vol] 11 U/L Low 14-54 [facility] Comment on above: Performed By: #### S BSC #### [facility] (DEFAULT) [address] [place] [address] [facility] [address] [place] [address] Anion gap [Moles/Vol] 7 mmol/L Normal 4-12 [facility] Comment on above: Performed By: #### S BSC #### [facility] (DEFAULT) [address] [place] [address] [facility] [address] [place] [address] AST [Catalytic activity/Vol] 16 U/L Normal 15-41 [facility] Comment on above: Performed By: #### S BSC #### [facility] (DEFAULT) [address] [place] [address] [facility] [address] [place] [address] Bili Total 1.3 mg/dL High 0.3-1.2 [facility] Comment on above: Performed By: #### S BSC #### [facility] (DEFAULT) [address] [place] [address] [facility] [address] [place] [address] Calcium [Mass/Vol] 8.4 mg/dL Low 8.5-10.3 [facility] Comment on above: Performed By: #### S BSC #### [facility] (DEFAULT) [address] [place] [address] [facility] [address] [place] [address] Chloride [Moles/Vol] 103 mmol/L Normal 98-[address] [facility] Comment on above: Performed By: #### S BSC #### [facility] (DEFAULT) [address] [place] [address] [facility] [address] [place] [address] CO2 [Moles/Vol] 28 mmol/L Normal 22-32 [facility] Comment on above: Performed By: #### S BSC #### [facility] (DEFAULT) [address] [place] [address] [facility] [address] [place] [address] Creatinine [Mass/Vol] 0.63 mg/dL Normal 0.44-1.03 [facility] Comment on above: Performed By: #### S BSC #### [facility] (DEFAULT) [address] [place] [address] [facility] [address] [place] [address] Glucose [Mass/Vol] 103 mg/dL High 70-99 [facility] Comment on above: Performed By: #### S BSC #### [facility] (DEFAULT) [address] [place] [address] [facility] [address] [place] [address] Potassium [Moles/Vol] 2.9 mmol/L Low 3.4-4.8 [facility] Comment on above: Performed By: #### S BSC #### [facility] (DEFAULT) [address] [place] [address] [facility] [address] [place] [address] Protein [Mass/Vol] 5.9 g/dL Low 6.5-8.1 [facility] Comment on above: Performed By: #### S BSC #### [facility] (DEFAULT) [address] [place] [address] [facility] [address] [place] [address] Sodium [Moles/Vol] 138 mmol/L Normal 133-142 [facility] Comment on above: Performed By: #### S BSC #### [facility] (DEFAULT) [address] [place] [address] [facility] [address] [place] [address] Urea nitrogen [Mass/Vol] 7 mg/dL Low 8-26 [facility] Comment on above: Performed By: #### S BSC #### [facility] (DEFAULT) [address] [place] [address] [facility] [address] [place] [address] Urea nitrogen/Creatinine [Mass ratio] 11.1 mg/mg Normal 10.0-20.0 [facility] Comment on above: Performed By: #### S BSC #### [facility] (DEFAULT) [address] [place] [address] [facility] [address] [place] [address] Dietary Consultationon 07-11 Dietary Consultation Consult for [...] 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 Reports UBW of 108# since losing weight about 3-4 years ago which algins with weight on admit. Reports she is discharging after potassium infusion. Will continue to follow along appropriately. Electronically signed by Mehnaz Moran RD 07/11/24 15:56 EDT Normal [facility] Diff Autoon 07-11-2024 Baso Absolute 0.0 x10*3/mcL Normal 0.0-0.2 [facility] Comment on above: Performed By: #### A NAC #### [facility] [address] [place] [address] Basophils/100 WBC (Bld) 0.5 % Normal 0.0-1.5 [facility] Comment on above: Performed By: #### A NAC #### [facility] [address] [place] [address] Eos Absolute 0.0 x10*3/mcL Normal 0.0-0.4 [facility] Comment on above: Performed By: #### A NAC #### [address] [address] Eosinophils/100 WBC (Bld) 0.3 % Normal 0.0-5.4 [facility] Comment on above: Performed By: #### A NAC #### [address] [address] Lymph Absolute 2.1 x10*3/mcL Normal 1.0-4.8 [facility] Comment on above: Performed By: #### A NAC #### [address] [address] Lymphocytes/100 WBC (Bld) 24.0 % Low 27.2-40.8 [facility] Comment on above: Performed By: #### A NAC #### [address] [address] [place] Absolute 0.5 x10*3/mcL Normal 0.1-1.1 [facility] Comment on above: Performed By: #### A NAC #### [address] [address] Monocytes/100 WBC (Bld) 6.1 % Normal 3.7-11.9 [facility] Comment on above: Performed By: #### A NAC #### [address] [address] Neutro Absolute 6.1 x10*3/mcL Normal 1.8-7.7 [facility] Comment on above: Performed By: #### A NAC #### [address] [address] Neutro Auto 69.1 % Normal 47.2-70.8 [facility] Comment on above: Performed By: #### A NAC #### [address] [address] Inpatient Clinical Summary 07-11-2024 Inpatient Clinical Summary [address] [address] Clinical Summary Person Information Name: Kati Thorne Age: 48 Years : 1975 Sex: Female PCP: Unavailable, Physician Marital Status: Phone: PCP: Race: White Ethnicity: Not or Language: Qatari Visit Id: Visit Reason: Speciality: Acuity: Enc Type: Observation Med Service: Surgery Arrival: 07/10/2024 11:21:35 Discharge: Dispo Type: Address: [address] [place] [id number] Diagnosis: Discharged To: Home Treatments: Devices/Equipment: Professional Skilled Services: Special Services and Community Resources: Mode of Discharge Transportation: Discharge Orders Discharge Special Instructions steel placer will contact you tomorrow regarding pain medication [...] range between ( 27.2 and 40.8 ) [place] Auto: 6.1 % -- Normal range between [...] range between ( 36.0 and 46.0 ) [place] Absolute: 0.5 x10 MCH: 32.5 pg -- [...] Immunizations Doc (more content not included)... Normal [facility] Potassiumon 07-11-2024 Potassium [Moles/Vol] 4.0 mmol/L Normal 3.4-4.8 [facility] Comment on above: Performed By: #### A NAC #### [facility] [address] [place] [id number] Progress Note-Nurseon 2023 Progress Note-Nurse Discharge instructions reviewed with pt and pt verbalizes understanding. Pt taken per wheelchair to private vehicle accompanied by tech. Electronically signed by Marysol Lopes 07/11/24 17:03 EDT Normal [facility] .eGFRon 07-10-2024 GFR/1.73 sq M.predicted MDRD (S/P/Bld) [Vol rate/Area] mL/min/{1.73_m2} Normal >=60 [facility] Comment on above: Result Comment: [facility] Laboratories have implemented the eGFR [...] years Performed By: #### A NAC #### [place] [id number] CBC w/ Diffon 07-10-2024 Erythrocyte distribution width (RBC) [Ratio] 13.5 % Normal 11.6-14.8 [facility] Comment on above: Performed By: #### A NAC #### [place] [id number] Hematocrit (Bld) [Volume fraction] 39.9 % Normal 36.0-46.0 [facility] Comment on above: Performed By: #### A NAC #### [place] [id number] Hemoglobin (Bld) [Mass/Vol] 13.3 g/dL Normal 12.0-16.0 [facility] Comment on above: Performed By: #### A NAC #### [place] [id number] MCH (RBC) [Entitic mass] 32.2 pg Normal 27.0-35.0 [facility] Comment on above: Performed By: #### A NAC #### [address] [address] MCHC 33.4 % Normal 31.0-37.0 [facility] Comment on above: Performed By: #### A NAC #### [place] [id number] MCV (RBC) [Entitic vol] 96.6 fL Normal 80.0-100.0 [facility] Comment on above: Performed By: #### A NAC #### [place] [id number] Platelet 182 x10*3/mcL Normal 150-450 [facility] Comment on above: Performed By: #### A NAC #### [place] [id number] Platelet mean volume (Bld) [Entitic vol] 8.9 fL Normal 6.7-10.6 [facility] Comment on above: Performed By: #### A NAC #### [place] [id number] RBC 4.13 x10*6/mcL Normal 3.80-5.20 [facility] Comment on above: Performed By: #### A NAC #### [address] [address] WBC 10.2 x10*3/mcL Normal 4.5-11.0 [facility] Comment on above: Performed By: #### A NAC #### [address] [address] CMPon 07-10-2024 Albumin [Mass/Vol] 3.8 g/dL Normal 3.2-4.9 [facility] Comment on above: Performed By: #### A NAC #### [address] [address] Albumin/Globulin [Mass ratio] 1.4 {ratio} Normal 1.1-2.2 [facility] Comment on above: Performed By: #### A NAC #### [address] [address] Alk Phos 75 IU/L Normal 32-91 [facility] Comment on above: Performed By: #### A NAC #### [address] [address] ALT [Catalytic activity/Vol] 13 U/L Low 14-54 [facility] Comment on above: Performed By: #### A NAC #### [address] [address] Anion gap [Moles/Vol] 10 mmol/L Normal 4-12 [facility] Comment on above: Performed By: #### A NAC #### [address] [address] AST [Catalytic activity/Vol] 17 U/L Normal 15-41 [facility] Comment on above: Performed By: #### A NAC #### [address] [address] Bili Total 0.9 mg/dL Normal 0.3-1.2 [facility] Comment on above: Performed By: #### A NAC #### [address] [address] Calcium [Mass/Vol] 8.6 mg/dL Normal 8.5-10.3 [facility] Comment on above: Performed By: #### A NAC #### [address] [address] Chloride [Moles/Vol] 103 mmol/L Normal 98-[address] [facility] Comment on above: Performed By: #### A NAC #### [address] [address] CO2 [Moles/Vol] 27 mmol/L Normal 22-32 [facility] Comment on above: Performed By: #### A NAC #### [address] [address] Creatinine [Mass/Vol] 0.54 mg/dL Normal 0.44-1.03 [facility] Comment on above: Performed By: #### A NAC #### [address] [address] Glucose [Mass/Vol] 105 mg/dL High 70-99 [facility] Comment on above: Performed By: #### A NAC #### [address] [address] Potassium [Moles/Vol] 2.7 mmol/L Low 3.4-4.8 [facility] Comment on above: Performed By: #### A NAC #### [address] [address] Protein [Mass/Vol] 6.6 g/dL Normal 6.5-8.1 [facility] Comment on above: Performed By: #### A NAC #### [address] [address] Sodium [Moles/Vol] 140 mmol/L Normal 133-142 [facility] Comment on above: Performed By: #### A NAC #### [address] [address] Urea nitrogen [Mass/Vol] 9 mg/dL Normal 8-26 [facility] Comment on above: Performed By: #### A NAC #### [address] [address] Urea nitrogen/Creatinine [Mass ratio] 16.7 mg/mg Normal 10.0-20.0 [facility] Comment on above: Performed By: #### A NAC #### [address] [address] Diff Autoon 07-10-2024 Baso Absolute 0.1 x10*3/mcL Normal 0.0-0.2 [facility] Comment on above: Performed By: #### A NAC #### [address] [address] Basophils/100 WBC (Bld) 0.6 % Normal 0.0-1.5 [facility] Comment on above: Performed By: #### A NAC #### [address] [address] Eos Absolute 0.0 x10*3/mcL Normal 0.0-0.4 [facility] Comment on above: Performed By: #### A NAC #### [address] [address] Eosinophils/100 WBC (Bld) 0.3 % Normal 0.0-5.4 [facility] Comment on above: Performed By: #### A NAC #### [address] [address] Lymph Absolute 2.3 x10*3/mcL Normal 1.0-4.8 [facility] Comment on above: Performed By: #### A NAC #### [address] [address] Lymphocytes/100 WBC (Bld) 22.8 % Low 27.2-40.8 [facility] Comment on above: Performed By: #### A NAC #### [address] [address] [place] Absolute 0.5 x10*3/mcL Normal 0.1-1.1 [facility] Comment on above: Performed By: #### A NAC #### [address] [address] Monocytes/100 WBC (Bld) 5.2 % Normal 3.7-11.9 [facility] Comment on above: Performed By: #### A NAC #### [address] [address] Neutro Absolute 7.2 x10*3/mcL Normal 1.8-7.7 [facility] Comment on above: Performed By: #### A NAC #### [address] [address] Neutro Auto 71.1 % High 47.2-70.8 [facility] Comment on above: Performed By: #### A NAC #### [address] [address] Magnesiumon 07-10-2024 Magnesium [Mass/Vol] 1.8 mg/dL Normal 1.7-2.[address] [facility] Comment on above: Performed By: #### S BSC #### [facility] (DEFAULT) [address] [place] [address] [facility] [address] [place] [address] Operative Reporton Operative Report Indication for Surgery [...] Surgeon(s) Santo Recinos DO (Surgeon - Primary) Rn Gynecology None Anesthesia General Thaddeus RAMIREZ, Dominick Young (Small Business Representative) Zackery De Dios (Provider) Estimated Blood Loss [...] Santo Recinos DO 07/10/24 15:47 EDT Normal [facility] XR Finger 2nd Digit Righton 07-10-2024 XR [...] Electronically Signed in Other Vendor System) Normal [facility] XR FINGER LEFT (MIN 2 VIEWS) on [...] Jr., MD 06/30/24 Final result Normal [facility] XR FINGER RIGHT (MIN 2 VIEWS [...] Jr., MD 06/09/24 Final result Normal [facility] XR NECK SOFT TISSUEon 2022 XR [...] ANGY SMALLS Date: 2023-02-23 13:14 Normal [facility] FREE T4on 02-20-2023 Free T4 [Mass/Vol] 0.65 ng/dL Critically low 0.76-1.46 [facility] Comment on above: Performed By: #### L ACT #### [facility] [address] [place] [address] [address] Jovanna Oneill TSH W/ REFLEX TO FT4on 02-20 TSH 5.032 uIU/mL Critically high 0.358-3.740 [facility] Comment on above: Performed By: #### L ACT #### [facility] [address] [place] [address] [address] Jovanna Oneill RESPIRATORY PANEL PLUSon Adenovirus Not detected Normal NOT DETECTED [facility] Comment on above: Performed By: #### R SPLUS ####[facility] [address] [place], [place] [address]Dr. Jovanna Oneill B. Parapertusis Not detected Normal NOT DETECTED [facility] Comment on above: Performed By: #### R SPLUS ####[facility] [address] [place], [place] [address]Dr. Jovanna Oneill B. Pertussis Not detected Normal NOT DETECTED [facility] Comment on above: Performed By: #### R SPLUS ####[facility] [address] [place], [place] [address]Dr. Jovanna Oneill Chlamydia Pneumoniae Not detected Normal NOT DETECTED [facility] Comment on above: Performed By: #### R SPLUS ####[facility] [address] [place], [place] [address]Dr. Jovanna Oneill Coronavirus 229E Not detected Normal NOT DETECTED [facility] Comment on above: Performed By: #### R SPLUS ####[facility] [address] [place], [place] [address]Dr. Jovanna Oneill Coronavirus HKU1 Not detected Normal NOT DETECTED [facility] Comment on above: Performed By: #### R SPLUS ####[facility] [address] [place], [place] [address]Dr. Jovanna Oneill Coronavirus NL63 Not detected Normal NOT DETECTED [facility] Comment on above: Performed By: #### R SPLUS ####[facility] [address] [place] [address]Dr. Jovanna Oneill Coronavirus OC43 Not detected Normal NOT DETECTED [facility] Comment on above: Performed By: #### R SPLUS ####[facility] [address] [place], [place] [address]Dr. Jovanna Oneill Influenza A H1 Not detected Normal NOT DETECTED [facility] Comment on above: Performed By: #### R SPLUS ####[facility] [address] [place], [place] [address]Dr. Jovanna Oneill Influenza A H1 2009 Not detected Normal NOT DETECTED [facility] Comment on above: Performed By: #### R SPLUS ####[facility] [address] [place], [place] [address]Dr. Jovanna Oneill Influenza A H3 Not detected Normal NOT DETECTED [facility] Comment on above: Performed By: #### R SPLUS ####[facility] [address] [place], [place] [address]Dr. Jovanna Oneill Influenza B Not detected Normal NOT DETECTED [facility] Comment on above: Performed By: #### R SPLUS ####[facility] [address] [place], [place] [address]Dr. Jovanna Oneill Metapneumovirus Not detected Normal NOT DETECTED [facility] Comment on above: Performed By: #### R SPLUS ####[facility] [address] [place], [place] [address]Dr. Jovanna Oneill Mycoplas. Pneumoniae Not detected Normal NOT DETECTED [facility] Comment on above: Performed By: #### R SPLUS ####[facility] [address] [place], [place] [address]Dr. Jovanna Oneill Parainfluenza 1 Not detected Normal NOT DETECTED [facility] Comment on above: Performed By: #### R SPLUS ####[facility] [address] [place], [place] [address]Dr. Jovanna Oneill Parainfluenza 2 Not detected Normal NOT DETECTED [facility] [facility] Comment on above: Performed By: #### R SPLUS ####[facility] [address] [address]Dr. Jovanna Oneill Parainfluenza 3 Not detected Normal NOT DETECTED [facility] Comment on above: Performed By: #### R SPLUS ####[facility] [address] [place], [place] [address]Dr. Jovanna Oneill Parainfluenza 4 Not detected Normal NOT DETECTED [facility] Comment on above: Performed By: #### R SPLUS ####[facility] [address] [place], [place] [address]Dr. Jovanna Oneill Rhino/Enterovirus Not detected Normal NOT DETECTED [facility] Comment on above: Performed By: #### R SPLUS ####[facility] [address] [place], [place] [address]Dr. Jovanna Oneill RP2 Header 1 RESPIRATORY PANEL: VIRUSES Normal [facility] Comment on above: Performed By: #### R SPLUS ####[facility] [address] [place], [place] [address]Dr. Jovanna Oneill RP2 Header 2 RESPIRATORY PANEL: BACTERIA Normal [facility] Comment on above: Performed By: #### R SPLUS ####[facility] [address] [place], [place] [address]Dr. Jovanna Oneill RSV Not detected Normal NOT DETECTED [facility] Comment on above: Performed By: #### R SPLUS ####[facility] [address] [place], [place] [address]Dr. Jovanna Oneill SARS-CoV-2 (COVID-19) RNA DUC+probe Ql (Unsp spec) Not detected Normal NOT DETECTED [facility] Comment on above: Performed By: #### R SPLUS ####[facility] [address] [place], [place] [address]Dr. Jovanna Oneill MG MAMM SCREEN 3D CHELLY CADon 01-12-2023 MG MAMM SCREEN 3D CHELLY CAD Patient: KATI THORNE Exam Date: 01/12/2023 : 1975 Gender:F Ordering : TATUM ONOFRE Admission #: [id number] Family : Order #: [id number] CLICK HERE TO VIEW EXAM RADIOLOGY REPORT [...] cervical cancer at age 40. LOCATION: [facility] BREAST COMPOSITION: Almost entirely fatty. [...] Yanez MD on 01/12/2023 at 12:42 Normal [facility] XR DEXA BONE DENSITYon 01-12 [...] RJ YANEZ Date: 2023-01-12 17:10 Normal [facility] GABAPENTIN URINEon Gabapentin, Urine Negative Normal [place] Comment on above: Performed By: #### G ABAP ####[facility] [address] [place], [place] [address]OfJhony Jovanna Nino DRUG SCREEN RAPID (URINE)on 11-14-2022 AMP Negative Normal NEGATIVE [facility] Comment on above: Performed By: #### V ITB12 #### [facility] [address] [place] [address] Dr. Jovnana Oneill BAR Negative Normal NEGATIVE [facility] Comment on above: Performed By: #### V ITB12 #### [facility] [address] [place] [address] Dr. Jovanna Oneill BUP Negative Normal NEGATIVE [facility] Comment on above: Performed By: #### V ITB12 #### [facility] [address] [place] [address] Dr. Jovanna Oneill BZO Negative Normal NEGATIVE [facility] Comment on above: Performed By: #### V ITB12 #### [facility] [address] [place] [address] Dr. Jovanna Oneill CARA Negative Normal NEGATIVE [facility] Comment on above: Performed By: #### V ITB12 #### [facility] [address] [place] [address] Dr. Jovanna Oneill CUT-OFFS SEE BELOW Normal [facility] Comment on above: [...] ng/mL Performed By: #### V ITB12 #### [facility] [address] [place] [address] Dr. Jovanna Oneill DRUG CUT HEADER DRUG CLASS TEST SYSTEM CUT-OFF CONCENTRATIONS ARE FOLLOWS: Normal [facility] Comment on above: Performed By: #### V ITB12 #### [facility] [address] [place] [address] Dr. Jovanna Oneill mAMP Negative Normal NEGATIVE [facility] Comment on above: Performed By: #### V ITB12 #### [facility] [address] [address] [address] Jovanna Oneill MTD Negative Normal NEGATIVE [facility] Comment on above: Performed By: #### V ITB12 #### [facility] [address] [place] [address] Dr. Jovanna Oneill OPI Positive Abnormal NEGATIVE [facility] Comment on above: Performed By: #### V ITB12 #### [facility] [address] [place] [address] Dr. Jovanna Oneill OXY Negative Normal NEGATIVE [facility] Comment on above: Performed By: #### V ITB12 #### [facility] [address] [place] [address] Dr. Jovanna Oneill PCP Negative Normal NEGATIVE [facility] Comment on above: Performed By: #### V ITB12 #### [facility] [address] [place] [address] Dr. Jovanna Oneill PPX Negative Normal NEGATIVE [facility] Comment on above: Performed By: #### V ITB12 #### [facility] [address] [place] [address] Dr. Jovanna Oneill TCA Negative Normal NEGATIVE [facility] Comment on above: Performed By: #### V ITB12 #### [facility] [address] [place] [address] Dr. Jovanna Oneill THC Positive Abnormal NEGATIVE [facility] Comment on above: Performed By: #### V ITB12 #### [facility] [address] [place] [address] Dr. Jovanna Oneill CBC AUTO DIFFon 10-08-2022 BASO # 0.0 103/ul Normal 0.0-0.1 [facility] Comment on above: Performed By: #### C BC #### [facility] [address] [place] [address] Dr. Jovanna Oneill Basophils/100 WBC (Bld) 0.4 % Normal 0.2-2.0 [facility] Comment on above: Performed By: #### C BC #### [facility] [address] [place] [address] Dr. Jovanna Oneill EO # 0.1 103/ul Normal 0.0-0.7 [facility] Comment on above: Performed By: #### C BC #### [facility] [address] [place] [address] Dr. Jovanna Oneill Eosinophils/100 WBC (Bld) 1.3 % Normal 0.9-7.0 [facility] Comment on above: Performed By: #### C BC #### [facility] [address] [place] [address] Dr. Jovanna Oneill Erythrocyte distribution width (RBC) [Ratio] 12.0 % Normal 11.0-15.0 [facility] Comment on above: Performed By: #### C BC #### [facility] [address] [place] [address] Dr. Jovanna Oneill Hematocrit (Bld) [Volume fraction] 37.8 % Normal 36.0-48.0 [facility] Comment on above: Performed By: #### C BC #### [facility] [address] [place] [address] Dr. Jovanna Oneill Hemoglobin (Bld) [Mass/Vol] 12.8 g/dL Normal 12.0-16.0 [facility] Comment on above: Performed By: #### C BC #### [facility] [address] [place] [address] Dr. Jovanna Oneill IG # 0.02 10e3/ul Normal 0.00-0.03 [facility] Comment on above: Performed By: #### C BC #### [facility] [address] [place] [address] Dr. Jovanna Oneill IG % 0.2 % Normal 0.0-0.5 [facility] Comment on above: Performed By: #### C BC #### [facility] [address] [place] [address] Dr. Jovanna Oneill LYMPH # 3.5 103/ul Normal 1.2-3.8 [facility] Comment on above: Performed By: #### C BC #### [facility] [address] [place] [address] Dr. Jovanna Oneill Lymphocytes/100 WBC (Bld) 37.9 % Normal 20.5-60.0 [facility] Comment on above: Performed By: #### C BC #### [facility] [address] [place] [address] Dr. Jovanna Oneill MANUAL DIFF REQ NO Normal [facility] Comment on above: Performed By: #### C BC #### [facility] [address] [place] [address] Dr. Jovanna Oneill MCH (RBC) [Entitic mass] 31.7 pg Normal 26.7-34.0 [facility] Comment on above: Performed By: #### C BC #### [facility] [address] [place] [address] Dr. Jovanna Oneill MCHC (RBC) [Mass/Vol] 33.9 g/dL Normal 29.9-35.2 [facility] Comment on above: Performed By: #### C BC #### [facility] [address] [place] [address] Dr. Jovanna Oneill MCV (RBC) [Entitic vol] 93.6 fL Normal 81.0-99.0 [facility] Comment on above: Performed By: #### C BC #### [facility] [address] [place] [address] Dr. Jovanna Oneill MONO # 0.5 103/ul Normal 0.3-0.8 [facility] Comment on above: Performed By: #### C BC #### [facility] [address] [place] [address] Dr. Jovanna Oneill Monocytes/100 WBC (Bld) 4.8 % Normal 1.7-12.0 [facility] Comment on above: Performed By: #### C BC #### [facility] [address] [place] [address] Dr. Jovanna Oneill NEUT # 5.1 103/ul Normal 1.4-6.5 [facility] Comment on above: Performed By: #### C BC #### [facility] [address] [place] [address] Dr. Jovanna Oneill Neutrophils/100 WBC (Bld) 55.4 % Normal 43.0-75.0 [facility] Comment on above: Performed By: #### C BC #### [facility] [address] [address] [address] Jovanna Oneill Platelet mean volume (Bld) [Entitic vol] 10.2 fL Normal 9.5-13.5 [facility] Comment on above: Performed By: #### C BC #### [facility] [address] [address] [address] Jovanna Oneill PLT 181 103/ul Normal 150-450 [facility] Comment on above: Performed By: #### C BC #### [facility] [address] [address] [address] Jovanna Oneill RBC 4.04 106/ul Critically low 4.20-5.40 [facility] Comment on above: Performed By: #### C BC #### [facility] [address] [address] [address] Jovanna Oneill WBC 9.3 103/ul Normal 4.0-11.0 [facility] Comment on above: Performed By: #### C BC #### [facility] [address] [address] [address] Jovanna Oneill CRPon 10-08-2022 CRP [Mass/Vol] mg/L Normal <=1.0 [facility] Comment on above: Performed By: #### B MP, CRP ####[facility] [address] [place] [address]Dr. Jovanna Oneill LACTATE/LACTIC ACIDon 2021 Lactate [Moles/Vol] 0.4 mmol/L Normal 0.4-1.9 [facility] Comment on above: Performed By: #### L ACT #### [facility] [address] [address] [address] Jovanna Oneill PROF CHEM 8 (BAS METB)on Anion gap [Moles/Vol] 12.6 mmol/L Normal [facility] Comment on above: Performed By: #### B MP, CRP #### [facility] [address] [address] [address] Jovanna Oneill Calcium [Mass/Vol] 8.6 mg/dL Normal 8.5-10.1 [facility] Comment on above: Performed By: #### B MP, CRP #### [facility] [address] [address] [address] Jovanna Oneill Chloride [Moles/Vol] 104 mmol/L Normal 98-107 [facility] Comment on above: Performed By: #### B MP, CRP #### [facility] [address] [address] [address] Jovanna Oneill CO2 [Moles/Vol] 26.8 mmol/L Normal 21.0-32.[address] [facility] Comment on above: Performed By: #### B MP, CRP #### [facility] [address] [place] [address] Dr. Jovanna Oneill Creatinine [Mass/Vol] 0.52 mg/dL Critically low 0.55-1.02 [facility] Comment on above: Performed By: #### B MP, CRP #### [facility] [address] [place] [address] Dr. Jovanna Oneill EGFR-AF NICARAGUAN >60 Normal >=[address] [facility] Comment on above: Performed By: #### B MP, CRP #### [facility] [address] [place] [address] Dr. Jovanna Oneill EGFR-NON AF NICARAGUAN >60 Normal >=60 [facility] Comment on above: Performed By: #### B MP, CRP #### [facility] [address] [place] [address] Dr. Jovanna Oneill Glucose [Mass/Vol] 93 mg/dL Normal 74-106 [facility] Comment on above: Performed By: #### B MP, CRP #### [facility] [address] [place] [address] Dr. Jovanna Oneill Potassium [Moles/Vol] 3.4 mmol/L Critically low 3.5-5.1 [facility] Comment on above: Performed By: #### B MP, CRP #### [facility] [address] [place], [place] [address] Dr. Jovanna Oneill Sodium [Moles/Vol] 140 mmol/L Normal 136-145 [facility] Comment on above: Performed By: #### B MP, CRP #### [facility] [address] [place], [place] [address] Dr. Jovanna Oneill Urea nitrogen [Mass/Vol] 11.0 mg/dL Normal 7.0-18.0 [facility] Comment on above: Performed By: #### B MP, CRP #### [facility] [id number] Jovanna Oneill Urea nitrogen/Creatinine [Mass ratio] 21.2 mg/mg Normal [facility] Comment on above: Performed By: #### B MP, CRP #### [facility] [id number] Jovanna Oneill SED RATE [facility] 2021 SED RATE 17 mm/hr Normal <=20 [facility] Comment on above: Performed By: #### S EDR ####[facility] [address] [place], [place] [address]UcDr. Jovanna Oneill Physician Referralon 022 Physician Referral [id number]#1 .00CD:127 Normal [facility] Physician Referral [id number] 1 [id number]#1 .00CD:127 Normal [facility] PROF 14(COMP METB)on 022 Albumin [Mass/Vol] 3.4 g/dL Normal 3.4-5.0 [facility] Comment on above: Performed By: #### V ITB12 #### [facility] [id number] Jovanna Oneill Albumin/Globulin [Mass ratio] 1.1 {ratio} Normal [facility] Comment on above: Performed By: #### V ITB12 #### [facility] [address] [address] [address] Jovanna Oneill ALP [Catalytic activity/Vol] 88 U/L Normal 46-116 [facility] Comment on above: Performed By: #### V ITB12 #### [facility] [address] [address] [address] Jovanna Oneill ALT [Catalytic activity/Vol] 11 U/L Critically low 14-59 [facility] Comment on above: Performed By: #### V ITB12 #### [facility] [address] [address] [address] Jovanna Oneill Anion gap [Moles/Vol] 8.7 mmol/L Normal [facility] Comment on above: Performed By: #### V ITB12 #### [facility] [address] [address] [address] Jovanna Oneill AST [Catalytic activity/Vol] 13 U/L Critically low 15-37 [facility] Comment on above: Performed By: #### V ITB12 #### [facility] [address] [place] [address] Dr. Jovanna Oneill Bilirubin [Mass/Vol] 0.6 mg/dL Normal 0.2-1.0 [facility] Comment on above: Performed By: #### V ITB12 #### [facility] [address] [address] [address] Jovanna Oneill Calcium [Mass/Vol] 8.7 mg/dL Normal 8.5-10.1 [facility] Comment on above: Performed By: #### V ITB12 #### [facility] [address] [address] [address] Jovanna Oneill Chloride [Moles/Vol] 104 mmol/L Normal 98-107 [facility] Comment on above: Performed By: #### V ITB12 #### [facility] [address] [address] [address] Jovanna Oneill CO2 [Moles/Vol] 31.9 mmol/L Normal 21.0-32.0 [facility] Comment on above: Performed By: #### V ITB12 #### [facility] [address] [address] [address] Jovanna Oneill Creatinine [Mass/Vol] 0.65 mg/dL Normal 0.55-1.02 [facility] Comment on above: Performed By: #### V ITB12 #### [facility] [address] [address] [address] Jovanna Oneill EGFR-AF NICARAGUAN >60 Normal >=60 [facility] Comment on above: Performed By: #### V ITB12 #### [facility] [address] [address] [address] Jovanna Oneill EGFR-NON AF NICARAGUAN >60 Normal >=60 [facility] Comment on above: Performed By: #### V ITB12 #### [facility] [address] [address] [address] Jovanna Oneill Globulin (S) [Mass/Vol] 3.2 g/dL Normal [facility] Comment on above: Performed By: #### V ITB12 #### [facility] [address] [place] [address] Dr. Jovanna Oneill Glucose [Mass/Vol] 91 mg/dL Normal 74-106 [facility] Comment on above: Performed By: #### V ITB12 #### [facility] [address] [address] [address] Jovanna Oneill Potassium [Moles/Vol] 3.6 mmol/L Normal 3.5-5.1 [facility] Comment on above: Performed By: #### V ITB12 #### [facility] [address] [address] [address] Jovanna Oneill Protein [Mass/Vol] 6.6 g/dL Normal 6.4-8.2 [facility] Comment on above: Performed By: #### V ITB12 #### [facility] [address] [address] [address] Jovanna Oneill Sodium [Moles/Vol] 141 mmol/L Normal 136-145 [facility] Comment on above: Performed By: #### V ITB12 #### [facility] [address] [address] [address] Jovanna Oneill Urea nitrogen [Mass/Vol] 4.0 mg/dL Critically low 7.0-18.0 [facility] Comment on above: Performed By: #### V ITB12 #### [facility] [address] [place] [address] Dr. Jovanna Oneill Urea nitrogen/Creatinine [Mass ratio] 6.2 mg/mg Normal [facility] Comment on above: Performed By: #### V ITB12 #### [facility] [address] [place] [address] Dr. Jovanna Oneill HEPATITIS C AB CASCADE TO QU ANT PCR GENOon 09-13-2022 HCV AB <0.1 Normal 0.0-0.9 [facility] Comment on above: Performed By: #### H EPCASC #### [facility] [address] [place] [address] Dr. Jovanna Oneill Interpretation: Comment Normal [facility] Comment on above: Result Comment: Nega tive Not infected with HCV, unless recent infection is suspected or other evidence exists to indicate HCV infection. Performed By: #### H EPCASC #### [facility] [address] [place] [address] Dr. Jovanna Oneill CBC AUTO DIFFon 09-12-2022 BASO # 0.0 103/ul Normal 0.0-0.1 [facility] Comment on above: Performed By: #### C BC #### [facility] [address] [place] [address] Dr. Jovanna Oneill Basophils/100 WBC (Bld) 0.3 % Normal 0.2-2.0 [facility] Comment on above: Performed By: #### C BC #### [facility] [address] [place] [address] Dr. Jovanna Oneill EO # 0.1 103/ul Normal 0.0-0.7 [facility] Comment on above: Performed By: #### C BC #### [facility] [address] [place] [address] Dr. Jovanna Oneill Eosinophils/100 WBC (Bld) 0.7 % Critically low 0.9-7.0 [facility] Comment on above: Performed By: #### C BC #### [facility] [address] [place] [address] Dr. Jovanna Oneill Erythrocyte distribution width (RBC) [Ratio] 12.3 % Normal 11.0-15.0 [facility] Comment on above: Performed By: #### C BC #### [facility] [address] [place] [address] Dr. Jovanna Oneill Hematocrit (Bld) [Volume fraction] 40.2 % Normal 36.0-48.0 [facility] Comment on above: Performed By: #### C BC #### [facility] [address] [place] [address] Dr. Jovanna Oneill Hemoglobin (Bld) [Mass/Vol] 13.4 g/dL Normal 12.0-16.0 [facility] Comment on above: Performed By: #### C BC #### [facility] [address] [place] [address] Dr. Jovanna Oneill IG # 0.02 10e3/ul Normal 0.00-0.03 [facility] Comment on above: Performed By: #### C BC #### [facility] [address] [place] [address] Dr. Jovanna Oneill IG % 0.3 % Normal 0.0-0.5 [facility] Comment on above: Performed By: #### C BC #### [facility] [address] [place] [address] Dr. Jovanna Oneill LYMPH # 2.2 103/ul Normal 1.2-3.8 [facility] Comment on above: Performed By: #### C BC #### [facility] [address] [place] [address] Dr. Jovanna Oneill Lymphocytes/100 WBC (Bld) 31.9 % Normal 20.5-60.0 [facility] Comment on above: Performed By: #### C BC #### [facility] [address] [place] [address] Dr. Jovanna Oneill MANUAL DIFF REQ NO Normal [facility] Comment on above: Performed By: #### C BC #### [facility] [address] [place] [address] Dr. Jovanna Oneill MCH (RBC) [Entitic mass] 31.8 pg Normal 26.7-34.0 [facility] Comment on above: Performed By: #### C BC #### [facility] [address] [place] [address] Dr. Jovanna Oneill MCHC (RBC) [Mass/Vol] 33.3 g/dL Normal 29.9-35.2 [facility] Comment on above: Performed By: #### C BC #### [facility] [address] [place] [address] Dr. Jovanna Oneill MCV (RBC) [Entitic vol] 95.5 fL Normal 81.0-99.0 [facility] Comment on above: Performed By: #### C BC #### [facility] [address] [place] [address] Dr. Jovanna Oneill MONO # 0.3 103/ul Normal 0.3-0.8 [facility] Comment on above: Performed By: #### C BC #### [facility] [address] [place] [address] Dr. Jovanna Oneill Monocytes/100 WBC (Bld) 4.4 % Normal 1.7-12.0 [facility] Comment on above: Performed By: #### C BC #### [facility] [address] [place] [address] Dr. Jovanna Oneill NEUT # 4.4 103/ul Normal 1.4-6.5 [facility] Comment on above: Performed By: #### C BC #### [facility] [address] [place] [address] Dr. Jovanna Oneill Neutrophils/100 WBC (Bld) 62.4 % Normal 43.0-75.0 [facility] Comment on above: Performed By: #### C BC #### [facility] [address] [place] [address] Dr. Jovanna Oneill Platelet mean volume (Bld) [Entitic vol] 10.9 fL Normal 9.5-13.5 [facility] Comment on above: Performed By: #### C BC #### [facility] [address] [place] [address] Dr. Jovanna Oneill PLT 179 103/ul Normal 150-450 [facility] Comment on above: Performed By: #### C BC #### [facility] [address] [place] [address] Dr. Jovanna Oneill RBC 4.21 106/ul Normal 4.20-5.40 [facility] Comment on above: Performed By: #### C BC #### [facility] [address] [place] [address] Dr. Jovanna Oneill WBC 7.0 103/ul Normal 4.0-11.0 [facility] Comment on above: Performed By: #### C BC #### [facility] [address] [place] [address] Dr. Jovanna Oneill GLYCOHEMOGLOBIN A1Con 2021 ADA RECOMMENDATION SEE BELOW Normal [facility] [facility] Comment on above: Result Comment: ADA RECOMMENDED LIMIT 4.0 - 6.0 ADA THERAPEUTIC TARGET < 7.0 ACTION SUGGESTED > 7.0 Performed By: #### L ACT #### [facility] [address] [place] [address] Dr. Jovanna Oneill Glucose [Mass/Vol] 105 mg/dL Normal [facility] Comment on above: Performed By: #### L ACT #### [facility] [address] [place] [address] Dr. Jovanna Oneill HbA1c (Bld) [Mass fraction] 5.3 % Normal 4.5-6.2 [facility] Comment on above: Performed By: #### L ACT #### [facility] [address] [place] [address] Dr. Jovanna Oneill LIPID PROFILEon 09-12-2022 CHOL-HDL RATIO NORM SEE BELOW Normal [facility] Comment on above: Result Comment: 3.3 - 4.4 LOW RISK 4.4 - 7.1 AVERAGE RISK 7.1 - 11.0 MODERATE RISK >11.0 HIGH RISK Performed By: #### C MP, LIPID #### [facility] [address] [place] [address] Dr. Jovanna Oneill Cholesterol [Mass/Vol] 135 mg/dL Normal <=200 [facility] Comment on above: Performed By: #### C MP, LIPID #### [facility] [address] [place] [address] Dr. Jovanna Oneill Cholesterol in HDL [Mass/Vol] 35 mg/dL Critically low 40-60 [facility] Comment on above: Performed By: #### C MP, LIPID #### [facility] [address] [place] [address] Dr. Jovanna Oneill Cholesterol in LDL [Mass/Vol] 84.8 mg/dL Normal [facility] Comment on above: Performed By: #### C MP, LIPID #### [facility] [address] [place] [address] Dr. Jovanna Oneill Cholesterol.total/Ch olesterol in HDL [Mass ratio] 3.9 {ratio} Normal [facility] Comment on above: Performed By: #### C MP, LIPID #### [facility] [address] [place] [address] Dr. Jovanna Oneill HDL NORMAL > or = 60 mg/dl - LO W CARDIOVASCULAR RISK <40 mg/dl - HIGH CARDIOVASCULAR RISK Normal [facility] Comment on above: Performed By: #### C MP, LIPID #### [facility] [address] [place] [address] Dr. Jovanna Oneill LDL CALC NORMAL SEE BELOW Normal [facility] Comment on above: Result Comment: <100 mg/dl OPTIMAL 100 - 129 mg/dl NEAR OR ABOVE OPTIMAL 130 - 159 mg/dl BORDERLINE HIGH 160 - 189 mg/dl HIGH >190 mg/dl VERY HIGH Performed By: #### C MP, LIPID #### [facility] [address] [place] [address] Dr. Jovanna Oneill Triglyceride [Mass/Vol] 76 mg/dL Normal <=150 [facility] Comment on above: Performed By: #### C MP, LIPID #### [facility] [address] [place] [address] Dr. Jovanna Oneill VLDL CALC 15.2 mg/dL Normal [facility] Comment on above: Performed By: #### C MP, LIPID #### [facility] [address] [place] [address] Dr. Jovanna Oneill PROF 14(COMP METB)on 022 Albumin [Mass/Vol] 3.5 g/dL Normal 3.4-5.0 [facility] Comment on above: Performed By: #### C MP, LIPID #### [facility] [address] [place] [address] Dr. Jovanna Oneill Albumin/Globulin [Mass ratio] 1.1 {ratio} Normal [facility] Comment on above: Performed By: #### C MP, LIPID #### [facility] [address] [place] [address] Dr. Jovanna Oneill ALP [Catalytic activity/Vol] 79 U/L Normal 46-116 [facility] Comment on above: Performed By: #### C MP, LIPID #### [facility] [address] [place] [address] Dr. Jovanna Oneill ALT [Catalytic activity/Vol] 15 U/L Normal 14-59 [facility] Comment on above: Performed By: #### C MP, LIPID #### [facility] [address] [place] [address] Dr. Jovanna Oneill Anion gap [Moles/Vol] 4.9 mmol/L Normal [facility] Comment on above: Performed By: #### C MP, LIPID #### [facility] [address] [place] [address] Dr. Jovanna Oneill AST [Catalytic activity/Vol] 17 U/L Normal 15-37 [facility] Comment on above: Performed By: #### C MP, LIPID #### [facility] [address] [place] [address] Dr. Jovanna Oneill Bilirubin [Mass/Vol] 0.4 mg/dL Normal 0.2-1.0 [facility] Comment on above: Performed By: #### C MP, LIPID #### [facility] [address] [place] [address] Dr. Jovanna Oneill Calcium [Mass/Vol] 8.7 mg/dL Normal 8.5-10.1 [facility] Comment on above: Performed By: #### C MP, LIPID #### [facility] [address] [place] [address] Dr. Jovanna Oneill Chloride [Moles/Vol] 103 mmol/L Normal 98-107 [facility] Comment on above: Performed By: #### C MP, LIPID #### [facility] [address] [address] [address] Jovanna Oneill CO2 [Moles/Vol] 35.8 mmol/L Critically high 21.0-32.0 [facility] Comment on above: Performed By: #### C MP, LIPID #### [facility] [address] [place] [address] Dr. Jovanna Oneill Creatinine [Mass/Vol] 0.70 mg/dL Normal 0.55-1.02 [facility] Comment on above: Performed By: #### C MP, LIPID #### [facility] [address] [place] [address] Dr. Jovanna Oneill EGFR-AF NICARAGUAN >60 Normal >=60 [facility] Comment on above: Performed By: #### C MP, LIPID #### [facility] [address] [place] [address] Dr. Jovanna Oneill EGFR-NON AF NICARAGUAN >60 Normal >=60 [facility] Comment on above: Performed By: #### C MP, LIPID #### [facility] [address] [place] [address] Dr. Jovanna Oneill Globulin (S) [Mass/Vol] 3.2 g/dL Normal [facility] Comment on above: Performed By: #### C MP, LIPID #### [facility] [address] [place] [address] Dr. Jovanna Oneill Glucose [Mass/Vol] 86 mg/dL Normal 74-106 [facility] Comment on above: Performed By: #### C MP, LIPID #### [facility] [address] [place] [address] Dr. Jovanna Oneill Potassium [Moles/Vol] 2.7 mmol/L Critically low 3.5-5.1 [facility] Comment on above: Performed By: #### C MP, LIPID #### [facility] [address] [place] [address] Dr. Jovanna Oneill Protein [Mass/Vol] 6.7 g/dL Normal 6.4-8.2 [facility] Comment on above: Performed By: #### C MP, LIPID #### [facility] [address] [address] [address] Jovanna Oneill Sodium [Moles/Vol] 141 mmol/L Normal 136-145 [facility] Comment on above: Performed By: #### C MP, LIPID #### [facility] [address] [address] [address] Jovanna Oneill Urea nitrogen [Mass/Vol] 6.0 mg/dL Critically low 7.0-18.0 [facility] Comment on above: Performed By: #### C MP, LIPID #### [facility] [address] [address] [address] Jovanna Oneill Urea nitrogen/Creatinine [Mass ratio] 8.6 mg/mg Normal [facility] Comment on above: Performed By: #### C MP, LIPID #### [facility] [address] [address] [address] Jovanna Oneill US THYROIDon 09-12-2022 US [...] by: FRANCES AGUSTIN Date: 2022-09-12 11:52 Normal [facility] VITAMIN B12on 09-12-2022 Cobalamin (Vitamin B12) [Mass/Vol] 280.0 pg/mL Normal 193.0-986.0 [facility] Comment on above: Performed By: #### V ITB12 #### [facility] [address] [address] [address] CSPINE WO CONon [...] MAN VILLALOBOS Date: 2022-08-24 18:11 Normal [facility] CT NECK ST W CONon [...] WOO PAIGE Date: 2022-08-16 23:10 Normal [facility] CBC AUTO DIFFon 08-16-2022 BASO # 0.0 103/ul Normal 0.0-0.1 [facility] Comment on above: Performed By: #### C BC ####[facility] [address] [address]Dr. Rosaliareagan Oneill Basophils/100 WBC (Bld) 0.2 % Normal 0.2-2.0 [facility] Comment on above: Performed By: #### C BC ####[facility] [address] [address]Dr. Jovanna Oneill EO # 0.1 103/ul Normal 0.0-0.7 [facility] Comment on above: Performed By: #### C BC ####[facility] [address] [place] [address]Dr. Jovanna Oneill Eosinophils/100 WBC (Bld) 0.7 % Critically low 0.9-7.0 [facility] Comment on above: Performed By: #### C BC ####[facility] [address] [place], [place] [id number]. Rosaliareagan Oniell Erythrocyte distribution width (RBC) [Ratio] 12.1 % Normal 11.0-15.0 [facility] Comment on above: Performed By: #### C BC ####[facility] [address] [address]Dr. Rosaliareagan Oneill Hematocrit (Bld) [Volume fraction] 38.8 % Normal 36.0-48.0 [facility] Comment on above: Performed By: #### C BC ####[facility] [address] [place], [place] [address]Dr. Rosaliareagan Oneill Hemoglobin (Bld) [Mass/Vol] 12.8 g/dL Normal 12.0-16.0 [facility] Comment on above: Performed By: #### C BC ####[facility] [address] [id number]. Jovanna Oneill IG # 0.06 10e3/ul Critically high 0.00-0.03 [place] Comment on above: Performed By: #### C BC ####[facility] [address] [id number]. Jovanna Oneill IG % 0.4 % Normal 0.0-0.5 [facility] Comment on above: Performed By: #### C BC ####[facility] [address] [place] [address]Dr. Jovanna Nino LYMPH # 2.5 103/ul Normal 1.2-3.8 [facility] Comment on above: Performed By: #### C BC ####[facility] [address] [address]Dr. Jovanna Oneill Lymphocytes/100 WBC (Bld) 18.1 % Critically low 20.5-60.0 [facility] Comment on above: Performed By: #### C BC ####[facility] [address] [place] [address]Dr. Rosaliareagan Oneill MANUAL DIFF REQ NO Normal [facility] Comment on above: Performed By: #### C BC ####[facility] [address] [place] [address]Dr. Jovanna Oneill MCH (RBC) [Entitic mass] 32.0 pg Normal 26.7-34.0 [facility] Comment on above: Performed By: #### C BC ####[facility] [address] [place] [address]Dr. Jovanna Oneill MCHC (RBC) [Mass/Vol] 33.0 g/dL Normal 29.9-35.2 [facility] Comment on above: Performed By: #### C BC ####[facility] [address] [address]Dr. Jovanna Oneill MCV (RBC) [Entitic vol] 97.0 fL Normal 81.0-99.0 [facility] Comment on above: Performed By: #### C BC ####[facility] [address] [place] [id number]. Jovanna Oneill MONO # 0.6 103/ul Normal 0.3-0.8 [facility] Comment on above: Performed By: #### C BC ####[facility] [address] [place] [id number]. Jovanna Oneill Monocytes/100 WBC (Bld) 4.5 % Normal 1.7-12.0 [facility] Comment on above: Performed By: #### C BC ####[facility] [address] [place] [id number]. Jovanna Oneill NEUT # 10.4 103/ul Critically high 1.4-6.[address] [facility] Comment on above: Performed By: #### C BC ####[facility] [address] [place] [id number]. Jovanna Oneill Neutrophils/100 WBC (Bld) 76.1 % Critically high 43.0-75.0 [facility] Comment on above: Performed By: #### C BC ####[facility] [address] [place] [id number]. Jovanna Oneill Platelet mean volume (Bld) [Entitic vol] 10.9 fL Normal 9.5-13.5 [facility] Comment on above: Performed By: #### C BC ####[facility] [address] [place] [id number]. Jovanna Oneill PLT 193 103/ul Normal 150-450 [facility] Comment on above: Performed By: #### C BC ####[facility] [address] [place] [id number]. Jovanna Oneill RBC 4.00 106/ul Critically low 4.20-5.40 [facility] Comment on above: Performed By: #### C BC ####[facility] [address] [place] [id number]. Jovanna Oneill WBC 13.7 103/ul Critically high 4.0-11.[address] [facility] Comment on above: Performed By: #### C BC ####[facility] [address] [place] [address]Dr. Jovanna Oneill FREE T4on 08-16-2022 Free T4 [Mass/Vol] 0.68 ng/dL Critically low 0.76-1.46 [facility] Comment on above: Performed By: #### L ACT #### [facility] [address] [place] [address] Dr. Jovanna Oneill HS-CRPon 08-16-2022 HS-CRP 1.04 mg/L Normal <=3.00 [facility] Comment on above: Performed By: #### L ACT #### [facility] [address] [place] [address] Dr. Jovanna Oneill PROF 14(COMP METB)on 022 Albumin [Mass/Vol] 3.5 g/dL Normal 3.4-5.0 [facility] Comment on above: Performed By: #### V ITB12 #### [facility] [address] [place] [address] Dr. Jovanna Oneill Albumin/Globulin [Mass ratio] 1.1 {ratio} Normal [facility] Comment on above: Performed By: #### V ITB12 #### [facility] [address] [place] [address] Dr. Jovanna Oneill ALP [Catalytic activity/Vol] 82 U/L Normal 46-116 [facility] Comment on above: Performed By: #### V ITB12 #### [facility] [address] [place] [address] Dr. Jovanna Oneill ALT [Catalytic activity/Vol] 17 U/L Normal 14-59 [facility] Comment on above: Performed By: #### V ITB12 #### [facility] [address] [address] [address] Jovanna Oneill Anion gap [Moles/Vol] 9.6 mmol/L Normal [facility] Comment on above: Performed By: #### V ITB12 #### [facility] [address] [place] [address] Dr. Jovanna Oneill AST [Catalytic activity/Vol] 17 U/L Normal 15-37 [facility] Comment on above: Performed By: #### V ITB12 #### [facility] [address] [address] [address] Jovanna Oneill Bilirubin [Mass/Vol] 0.4 mg/dL Normal 0.2-1.0 [facility] Comment on above: Performed By: #### V ITB12 #### [facility] [address] [place] [address] Dr. Jovanna Oneill Calcium [Mass/Vol] 8.7 mg/dL Normal 8.5-10.1 [facility] Comment on above: Performed By: #### V ITB12 #### [facility] [address] [place] [address] Dr. Jovanna Oneill Chloride [Moles/Vol] 105 mmol/L Normal 98-107 [facility] Comment on above: Performed By: #### V ITB12 #### [facility] [address] [place] [address] Dr. Jovanna Oneill CO2 [Moles/Vol] 30.9 mmol/L Normal 21.0-32.0 [facility] Comment on above: Performed By: #### V ITB12 #### [facility] [address] [place] [address] Dr. Jovanna Oneill Creatinine [Mass/Vol] 0.69 mg/dL Normal 0.55-1.02 [facility] Comment on above: Performed By: #### V ITB12 #### [facility] [address] [place] [address] Dr. Jovanna Oneill EGFR-AF NICARAGUAN >60 Normal >=[address] [facility] Comment on above: Performed By: #### V ITB12 #### [facility] [address] [place] [address] Dr. Jovanna Oneill EGFR-NON AF NICARAGUAN >60 Normal >=60 [facility] Comment on above: Performed By: #### V ITB12 #### [facility] [address] [place] [address] Dr. Jovanna Oneill Globulin (S) [Mass/Vol] 3.1 g/dL Normal [facility] Comment on above: Performed By: #### V ITB12 #### [facility] [address] [address] [address] Jovanna Oneill Glucose [Mass/Vol] 84 mg/dL Normal 74-106 [facility] Comment on above: Performed By: #### V ITB12 #### [facility] [address] [address] [address] Jovanna Oneill Potassium [Moles/Vol] 3.5 mmol/L Normal 3.5-5.1 [facility] Comment on above: Performed By: #### V ITB12 #### [facility] [address] [place] [address] Dr. Jovanna Oneill Protein [Mass/Vol] 6.6 g/dL Normal 6.4-8.2 [facility] Comment on above: Performed By: #### V ITB12 #### [facility] [address] [place] [address] Dr. Jovanna Oneill Sodium [Moles/Vol] 142 mmol/L Normal 136-145 [facility] Comment on above: Performed By: #### V ITB12 #### [facility] [address] [place] [address] Dr. Jovanna Oneill Urea nitrogen [Mass/Vol] 7.0 mg/dL Normal 7.0-18.0 [facility] Comment on above: Performed By: #### V ITB12 #### [facility] [address] [place] [address] Dr. Jovanna Oneill Urea nitrogen/Creatinine [Mass ratio] 10.1 mg/mg Normal [facility] Comment on above: Performed By: #### V ITB12 #### [facility] [address] [place] [address] Dr. Jovanna Oneill PROF CHEM 8 (BAS METB)on Anion gap [Moles/Vol] 8.5 mmol/L Normal [facility] Comment on above: Performed By: #### L ACT #### [facility] [address] [place] [address] Dr. Jovanna Oneill Calcium [Mass/Vol] 8.3 mg/dL Critically low 8.5-10.1 [facility] Comment on above: Performed By: #### L ACT #### [facility] [address] [address] [address] Jovanna Oneill Chloride [Moles/Vol] 105 mmol/L Normal 98-107 [facility] Comment on above: Performed By: #### L ACT #### [facility] [address] [address] [address] Jovanna Oneill CO2 [Moles/Vol] 28.4 mmol/L Normal 21.0-32.0 [facility] Comment on above: Performed By: #### L ACT #### [facility] [address] [address] [address] Jovanna Oneill Creatinine [Mass/Vol] 0.72 mg/dL Normal 0.55-1.02 [facility] Comment on above: Performed By: #### L ACT #### [facility] [address] [address] [address] Jovanna Oneill EGFR-AF NICARAGUAN >60 Normal >=60 [facility] Comment on above: Performed By: #### L ACT #### [facility] [address] [address] [address] Jovanna Oneill EGFR-NON AF NICARAGUAN >60 Normal >=60 [facility] Comment on above: Performed By: #### L ACT #### [facility] [address] [address] [address] Jovanna Oneill Glucose [Mass/Vol] 242 mg/dL Critically high 74-106 [facility] Comment on above: Performed By: #### L ACT #### [facility] [address] [address] [address] Jovanna Oneill Potassium [Moles/Vol] 2.9 mmol/L Critically low 3.5-5.1 [facility] Comment on above: Performed By: #### L ACT #### [facility] [address] [address] [address] Jovanna Oneill Sodium [Moles/Vol] 138 mmol/L Normal 136-145 [facility] Comment on above: Performed By: #### L ACT #### [facility] [address] [place], [place] [address] Dr. Jovanna Oneill Urea nitrogen [Mass/Vol] 5.0 mg/dL Critically low 7.0-18.0 [facility] Comment on above: Performed By: #### L ACT #### [facility] [address] [place], [place] [address] Dr. Jovanna Oneill Urea nitrogen/Creatinine [Mass ratio] 6.9 mg/mg Normal [facility] Comment on above: Performed By: #### L ACT #### [facility] [address] [place], [place] [address] Dr. Jovanna Oneill TSHon 08-16-2022 TSH 4.977 uIU/mL Critically high 0.358-3.740 [facility] Comment on above: Performed By: #### V ITB12 #### [facility] [address] [address] [address] ABD/PELVIS WO CONon [...] Ayaka LEON Date: 2022-05-02 03:06 Normal [facility] DRUG SCREEN RAPID (URINE)on 05-02-2022 AMP Negative Normal NEGATIVE [facility] Comment on above: Performed By: #### L ACT #### [facility] [address] [address] [address] Jovanna Oneill BAR Negative Normal NEGATIVE [facility] Comment on above: Performed By: #### L ACT #### [facility] [address] [address] [address] Jovanna Oneill BUP Negative Normal NEGATIVE [facility] Comment on above: Performed By: #### L ACT #### [facility] [address] [place] [address] Dr. Jovanna Oneill BZO Negative Normal NEGATIVE [facility] Comment on above: Performed By: #### L ACT #### [facility] [address] [place] [address] Dr. Jovanna Oneill CARA Negative Normal NEGATIVE [facility] Comment on above: Performed By: #### L ACT #### [facility] [address] [place] [address] Dr. Jovanna Oneill CUT-OFFS SEE BELOW Normal [facility] Comment on above: [...] ng/mL Performed By: #### L ACT #### [facility] [address] [place] [address] Dr. Jovanna Oneill DRUG CUT HEADER DRUG CLASS TEST SYSTEM CUT-OFF CONCENTRATIONS ARE FOLLOWS: Normal [facility] Comment on above: Performed By: #### L ACT #### [facility] [address] [address] [address] Jovanna Oneill mAMP Negative Normal NEGATIVE [facility] Comment on above: Performed By: #### L ACT #### [facility] [address] [address] [address] Jovanna Oneill MTD Negative Normal NEGATIVE [facility] Comment on above: Performed By: #### L ACT #### [facility] [address] [address] [address] Jovanna Oneill OPI Positive Abnormal NEGATIVE [facility] Comment on above: Performed By: #### L ACT #### [facility] [address] [place] [address] Dr. Jovanna Oneill OXY Negative Normal NEGATIVE [facility] Comment on above: Performed By: #### L ACT #### [facility] [address] [place] [address] Dr. Jovanna Oneill PCP Negative Normal NEGATIVE [facility] Comment on above: Performed By: #### L ACT #### [facility] [address] [address] [address] Jovanna Oneill PPX Negative Normal NEGATIVE [facility] Comment on above: Performed By: #### L ACT #### [facility] [address] [place] [address] Dr. Jovanna Oneill TCA Negative Normal NEGATIVE [facility] Comment on above: Performed By: #### L ACT #### [facility] [address] [place] [address] Dr. Jovanna Oneill THC Positive Abnormal NEGATIVE [facility] Comment on above: Performed By: #### L ACT #### [facility] [address] [place] [address] Dr. Jovanna Oneill ER URINE PROFILEon 2 Bilirubin Ql (U) Negative Normal NEGATIVE [facility] Comment on above: Performed By: #### L ACT #### [facility] [address] [place] [address] Dr. Jovanna Oneill Clarity (U) CLEAR Normal CLEAR [facility] Comment on above: Performed By: #### L ACT #### [facility] [address] [place] [address] Dr. Jovanna Oneill Color (U) LT. YELLOW Normal YELLOW [facility] Comment on above: Performed By: #### L ACT #### [facility] [address] [place] [address] Dr. Jovanna Oneill ERUSTACEY A micrscopic examination will be performed if indicated. Normal [facility] Comment on above: Performed By: #### L ACT #### [facility] [address] [place] [address] Dr. Jovanna Oneill Glucose Ql (U) Negative Normal NEGATIVE [facility] Comment on above: Performed By: #### L ACT #### [facility] [address] [place] [address] Dr. Jovanna Oneill Hemoglobin Ql (U) Negative Normal NEGATIVE [place] Comment on above: Performed By: #### L ACT #### [facility] [address] [place] [address] Dr. Jovanna Oneill Ketones Ql (U) Negative Normal NEGATIVE [facility] Comment on above: Performed By: #### L ACT #### [facility] [address] [place] [address] Dr. Jovanna Oneill LEUKOCYTES Negative Normal NEGATIVE [facility] Comment on above: Performed By: #### L ACT #### [facility] [address] [place] [address] Dr. Jovanna Oneill Nitrite Ql (U) Negative Normal NEGATIVE [facility] Comment on above: Performed By: #### L ACT #### [facility] [address] [place] [address] Dr. Jovanna Oneill pH (U) 6.0 [pH] Normal 5-9 [facility] Comment on above: Performed By: #### L ACT #### [facility] [address] [place] [address] Dr. Jovanna Oneill SPEC GRAVITY <=1.005 Abnormal 1.005-<=1.025 [facility] Comment on above: Performed By: #### L ACT #### [facility] [address] [place], [place] [id number] Dr. Jovanna Oneill UA PROTEIN Negative Normal NEGATIVE/ TRACE [facility] Comment on above: Performed By: #### L ACT #### [facility] [address] [place] [address] Dr. Jovanna Oneill UR MICRO IND NOT INDICATED Normal [facility] Comment on above: Performed By: #### L ACT #### [facility] [address] [place] [address] Dr. Jovanna Oneill Urobilinogen Qn (U) 0.2 {Isabella'U}/dL Normal 0.2 - 1. 0 [facility] Comment on above: Performed By: #### L ACT #### [facility] [address] [place] [address] Dr. Jovanna Oneill CBC AUTO DIFFon 04-20-2022 BASO # 0.0 103/ul Normal 0.0-0.1 [facility] Comment on above: Performed By: #### L ACT #### [facility] [address] [place] [address] Dr. Jovanna Oneill Basophils/100 WBC (Bld) 0.1 % Critically low 0.2-2.0 [facility] Comment on above: Performed By: #### L ACT #### [facility] [address] [place] [address] Dr. Jovanna Oneill EO # 0.0 103/ul Normal 0.0-0.7 [facility] Comment on above: Performed By: #### L ACT #### [facility] [address] [place] [address] Dr. Jovanna Oneill Eosinophils/100 WBC (Bld) 0.1 % Critically low 0.9-7.0 [facility] Comment on above: Performed By: #### L ACT #### [facility] [address] [place] [address] Dr. Jovanna Oneill Erythrocyte distribution width (RBC) [Ratio] 12.6 % Normal 11.0-15.0 [facility] Comment on above: Performed By: #### L ACT #### [facility] [address] [place] [address] Dr. Jovanna Oneill Hematocrit (Bld) [Volume fraction] 38.8 % Normal 36.0-48.0 [facility] Comment on above: Performed By: #### L ACT #### [facility] [address] [address] [address] Jovanna Oneill Hemoglobin (Bld) [Mass/Vol] 12.6 g/dL Normal 12.0-16.0 [facility] Comment on above: Performed By: #### L ACT #### [facility] [address] [address] [address] Jovanna Oneill IG # 0.13 10e3/ul Critically high 0.00-0.03 [place] Comment on above: Performed By: #### L ACT #### [facility] [address] [place] [address] Dr. Jovanna Oneill IG % 1.0 % Critically high 0.0-0.5 [facility] Comment on above: Performed By: #### L ACT #### [facility] [address] [address] [address] Jovanna Oneill LYMPH # 1.1 103/ul Critically low 1.2-3.8 [facility] Comment on above: Performed By: #### L ACT #### [facility] [address] [place] [address] Dr. Jovanna Oneill Lymphocytes/100 WBC (Bld) 8.3 % Critically low 20.5-60.0 [facility] Comment on above: Performed By: #### L ACT #### [facility] [address] [address] [address] Jovanna Oneill MANUAL DIFF REQ NO Normal [facility] Comment on above: Performed By: #### L ACT #### [facility] [address] [address] [address] Jovanna Oneill MCH (RBC) [Entitic mass] 31.0 pg Normal 26.7-34.0 [facility] Comment on above: Performed By: #### L ACT #### [facility] [address] [place] [address] Dr. Jovanna Oneill MCHC (RBC) [Mass/Vol] 32.5 g/dL Normal 29.9-35.2 [facility] Comment on above: Performed By: #### L ACT #### [facility] [address] [place] [address] Dr. Jovanna Oneill MCV (RBC) [Entitic vol] 95.3 fL Normal 81.0-99.0 [facility] Comment on above: Performed By: #### L ACT #### [facility] [address] [address] [address] Jovanna Oneill MONO # 0.8 103/ul Normal 0.3-0.8 [facility] Comment on above: Performed By: #### L ACT #### [facility] [address] [place] [address] Dr. Jovanna Oneill Monocytes/100 WBC (Bld) 5.8 % Normal 1.7-12.0 [facility] Comment on above: Performed By: #### L ACT #### [facility] [address] [address] [address] Jovanna Oneill NEUT # 11.4 103/ul Critically high 1.4-6.5 [facility] Comment on above: Performed By: #### L ACT #### [facility] [address] [place] [address] Dr. Jovanna Oneill Neutrophils/100 WBC (Bld) 84.7 % Critically high 43.0-75.0 [facility] Comment on above: Performed By: #### L ACT #### [facility] [address] [address] [address] Jovanna Oneill Platelet mean volume (Bld) [Entitic vol] 10.1 fL Normal 9.5-13.5 [facility] Comment on above: Performed By: #### L ACT #### [facility] [address] [place] [address] Dr. Jovanna Oneill PLT 205 103/ul Normal 150-450 [facility] Comment on above: Performed By: #### L ACT #### [facility] [address] [place] [address] Dr. Jovanna Oneill RBC 4.07 106/ul Critically low 4.20-5.40 [facility] Comment on above: Performed By: #### L ACT #### [facility] [address] [address] [address] Jovanna Oneill WBC 13.4 103/ul Critically high 4.0-11.0 [facility] Comment on above: Performed By: #### L ACT #### [facility] [address] [address] [address] Jovanna Oneill DRUG SCREEN RAPID (URINE)on 04-20-2022 AMP Negative Normal NEGATIVE [facility] Comment on above: Performed By: #### U MICRO, ERUR, DRUGRPD ####[facility] [address] [address]Dr. Jovanna Oneill BAR Negative Normal NEGATIVE [facility] Comment on above: Performed By: #### U MICRO, ERUR, DRUGRPD ####[facility] [address] [address]Dr. Jovanna Oneill BUP Negative Normal NEGATIVE [facility] Comment on above: Performed By: #### U MICRO, ERUR, DRUGRPD ####[facility] [address] [address]Dr. Jovanna Oneill BZO Negative Normal NEGATIVE [facility] Comment on above: Performed By: #### U MICRO, ERUR, DRUGRPD ####[facility] [address] [address]Dr. Jovanna Oneill CARA Negative Normal NEGATIVE [facility] Comment on above: Performed By: #### U MICRO, ERUR, DRUGRPD ####[facility] [address] [address]Dr. Jovanna Oneill CUT-OFFS SEE BELOW Normal [facility] Comment on above: [...] Performed By: #### U MICRO, ERUR, DRUGRPD ####[facility] [address] [address]Dr. Jovanna Oneill DRUG CUT HEADER DRUG CLASS TEST SYSTEM CUT-OFF CONCENTRATIONS ARE FOLLOWS: Normal [facility] Comment on above: Performed By: #### U MICRO, ERUR, DRUGRPD ####[facility] [address] [place], [place] [address]Dr. Jovanna Oneill mAMP Negative Normal NEGATIVE [facility] Comment on above: Performed By: #### U MICRO, ERUR, DRUGRPD ####[facility] [address] [place], [place] [address]Dr. Jovanna Oneill MTD Negative Normal NEGATIVE [facility] Comment on above: Performed By: #### U MICRO, ERUR, DRUGRPD ####[facility] [address] [place], [place] [address]Dr. Jovanna Oneill OPI Positive Abnormal NEGATIVE [facility] Comment on above: Performed By: #### U MICRO, ERUR, DRUGRPD ####[facility] [address] [place], [place] [address]Dr. Jovanna Oneill OXY Negative Normal NEGATIVE [facility] Comment on above: Performed By: #### U MICRO, ERUR, DRUGRPD ####[facility] [address] [place], [place] [address]Dr. Jovanna Oneill PCP Negative Normal NEGATIVE [facility] Comment on above: Performed By: #### U MICRO, ERUR, DRUGRPD ####[facility] [address] [place], [place] [address]Dr. Jovanna Oneill PPX Negative Normal NEGATIVE [facility] Comment on above: Performed By: #### U MICRO, ERUR, DRUGRPD ####[facility] [address] [place], [place] [address]Dr. Jovanna Oneill TCA Negative Normal NEGATIVE [facility] Comment on above: Performed By: #### U MICRO, ERUR, DRUGRPD ####[facility] [address] [address]Dr. Jovanna Oneill THC Positive Abnormal NEGATIVE [facility] Comment on above: Performed By: #### U MICRO, ERUR, DRUGRPD ####[facility] [address] [address]Dr. Jovanna Oneill ER URINE PROFILEon 2 Bilirubin Ql (U) Negative Normal NEGATIVE [facility] Comment on above: Performed By: #### U MICRO, ERUR, DRUGRPD ####[facility] [address] [place], [place] [address]Dr. Jovanna Oenill Clarity (U) CLEAR Normal CLEAR [facility] Comment on above: Performed By: #### U MICRO, ERUR, DRUGRPD ####[facility] [address] [place], [place] [address]Dr. Jovanna Oneill Color (U) LT. YELLOW Normal YELLOW [facility] Comment on above: Performed By: #### U MICRO, ERUR, DRUGRPD ####[facility] [address] [place], [place] [address]Dr. Jovanna Oneill ERUAHD A micrscopic examination will be performed if indicated. Normal [facility] Comment on above: Performed By: #### U MICRO, ERUR, DRUGRPD ####[facility] [address] [place], [place] [address]Dr. Jovanna Oneill Glucose Ql (U) >1000 Abnormal NEGATIVE [facility] Comment on above: Performed By: #### U MICRO, ERUR, DRUGRPD ####[facility] [address] [place], [place] [address]Dr. Jovanna Oneill Hemoglobin Ql (U) Negative Normal NEGATIVE [facility] Comment on above: Performed By: #### U MICRO, ERUR, DRUGRPD ####[facility] [address] [place], [place] [address]Dr. Jovanna Oneill Ketones Ql (U) Negative Normal NEGATIVE [facility] Comment on above: Performed By: #### U MICRO, ERUR, DRUGRPD ####[facility] [address] [address]Dr. Jovanna Oneill LEUKOCYTES Negative Normal NEGATIVE [facility] Comment on above: Performed By: #### U MICRO, ERUR, DRUGRPD ####[facility] [address] [address]Dr. Jovanna Oneill Nitrite Ql (U) Negative Normal NEGATIVE [facility] Comment on above: Performed By: #### U MICRO, ERUR, DRUGRPD ####[facility] [address] [address]Dr. Jovanna Oneill pH (U) 6.5 [pH] Normal 5-9 [facility] Comment on above: Performed By: #### U MICRO, ERUR, DRUGRPD ####[facility] [address] [address]Dr. Jovanna Oneill Protein (U) [Mass/Vol] 30 mg/dL Abnormal NEGATIVE/ TRACE [facility] Comment on above: Performed By: #### U MICRO, ERUR, DRUGRPD ####[facility] [address] [place], [place] [address]Dr. Jovanna Oneill SPEC GRAVITY 1.015 Normal 1.005-<=1.025 [facility] Comment on above: Performed By: #### U MICRO, ERUR, DRUGRPD ####[facility] [address] [address]Dr. Jovanna Oneill UR MICRO IND INDICATED Normal [facility] Comment on above: Performed By: #### U MICRO, ERUR, DRUGRPD ####[facility] [address] [address]Dr. Jovanna Oneill Urobilinogen Qn (U) 1.0 {Isabella'U}/dL Normal 0.2 - 1. 0 [facility] Comment on above: Performed By: #### U MICRO, ERUR, DRUGRPD ####[facility] [address] [address]Dr. Jovanna Oneill LACTATE/LACTIC ACIDon 06-09- 2022 Lactate [Moles/Vol] 1.7 mmol/L Normal 0.4-1.9 [facility] Comment on above: Performed By: #### L ACT #### [facility] [address] [place] [address] Dr. Jovanna Oneill PROF 14(COMP METB)on 022 Albumin [Mass/Vol] 3.4 g/dL Normal 3.4-5.0 [facility] Comment on above: Performed By: #### V ITB12 #### [facility] [address] [place] [address] Dr. Jovanna Oneill Albumin/Globulin [Mass ratio] 1.1 {ratio} Normal [facility] Comment on above: Performed By: #### V ITB12 #### [facility] [address] [place] [address] Dr. Jovanna Oneill ALP [Catalytic activity/Vol] 99 U/L Normal 46-116 [facility] Comment on above: Performed By: #### V ITB12 #### [facility] [address] [place] [address] Dr. Jovanna Oneill ALT [Catalytic activity/Vol] 32 U/L Normal 14-59 [facility] Comment on above: Performed By: #### V ITB12 #### [facility] [address] [place] [address] Dr. Jovanna Oneill Anion gap [Moles/Vol] 10.0 mmol/L Normal [facility] Comment on above: Performed By: #### V ITB12 #### [facility] [address] [place] [address] Dr. Jovanna Oneill AST [Catalytic activity/Vol] 38 U/L Critically high 15-37 [facility] Comment on above: Performed By: #### V ITB12 #### [facility] [address] [place] [address] Dr. Jovanna Oneill Bilirubin [Mass/Vol] 0.8 mg/dL Normal 0.2-1.0 [facility] Comment on above: Performed By: #### V ITB12 #### [facility] [address] [address] [address] Jovanna Oneill Calcium [Mass/Vol] 8.1 mg/dL Critically low 8.5-10.1 [facility] Comment on above: Performed By: #### V ITB12 #### [facility] [address] [place] [address] Dr. Jovanna Oneill Chloride [Moles/Vol] 102 mmol/L Normal 98-107 [facility] Comment on above: Performed By: #### V ITB12 #### [facility] [address] [place] [address] Dr. Jovanna Oneill CO2 [Moles/Vol] 31.1 mmol/L Normal 21.0-32.0 [facility] Comment on above: Performed By: #### V ITB12 #### [facility] [address] [place] [address] Dr. Jovanna Oneill Creatinine [Mass/Vol] 0.78 mg/dL Normal 0.55-1.02 [facility] Comment on above: Performed By: #### V ITB12 #### [facility] [address] [place] [address] Dr. Jovanna Oneill EGFR-AF NICARAGUAN >60 Normal >=60 [facility] Comment on above: Performed By: #### V ITB12 #### [facility] [address] [place] [address] Dr. Jovanna Oneill EGFR-NON AF NICARAGUAN >60 Normal >=60 [facility] Comment on above: Performed By: #### V ITB12 #### [facility] [address] [place] [address] Dr. Jovanna Oneill Globulin (S) [Mass/Vol] 3.2 g/dL Normal [facility] Comment on above: Performed By: #### V ITB12 #### [facility] [address] [place] [address] Dr. Jovanna Oneill Glucose [Mass/Vol] 251 mg/dL Critically high 74-106 [facility] Comment on above: Performed By: #### V ITB12 #### [facility] [address] [place] [address] Dr. Jovanna Oneill Potassium [Moles/Vol] 3.1 mmol/L Critically low 3.5-5.1 [facility] Comment on above: Performed By: #### V ITB12 #### [facility] [address] [address] [address] Jovanna Oneill Protein [Mass/Vol] 6.6 g/dL Normal 6.4-8.2 [facility] Comment on above: Performed By: #### V ITB12 #### [facility] [address] [address] [address] Jovanna Oneill Sodium [Moles/Vol] 140 mmol/L Normal 136-145 [facility] Comment on above: Performed By: #### V ITB12 #### [facility] [address] [address] [address] Jovanna Oneill Urea nitrogen [Mass/Vol] 8.0 mg/dL Normal 7.0-18.0 [facility] Comment on above: Performed By: #### V ITB12 #### [facility] [address] [address] [address] Jovanna Oneill Urea nitrogen/Creatinine [Mass ratio] 10.3 mg/mg Normal [facility] Comment on above: Performed By: #### V ITB12 #### [facility] [address] [address] [address] Jovanna Oneill TROPONIN, HIGH SENSITIVITYon 04-20-2022 HSTROP 13.8 pg/mL Normal 4.0-51.3 [facility] Comment on above: Result Comment: CUT- OFF POINTS HAVE BEEN ESTABLISHED BASED ON THE FOURTH UNIVERSAL DEFINITIONS OF MYOCARDIAL INFARCTION. THE UPPER REFERENCE LIMIT (URL) OF TROPONIN, DEFINED THE 99TH PERCENTILE OF cTnI DISTRIBUTION IN A REFERENCE POPULATION, HAS BEEN CONFIRMED THE DECISION THRESHOLD FOR [place] DIAGNOSIS. Performed By: #### V ITB12 #### [facility] [address] [address] [address] Jovanna Oneill URINE MICROSCOPIC ONLYon BACTERIA TRACE Abnormal NONE SEEN [facility] Comment on above: Performed By: #### U MICRO, ERUR, DRUGRPD ####[facility] [address] [address]Dr. Jovanna Oneill Bacteria identified Cx Nom (U) NOT INDICATED Normal [facility] Comment on above: Performed By: #### U MICRO, ERUR, DRUGRPD ####[facility] [address] [address]Dr. Jovanna Oneill CAST SEEN Abnormal NONE SEEN [facility] Comment on above: Performed By: #### U MICRO, ERUR, DRUGRPD ####[facility] [address] [address]Dr. Jovanna Oneill Crystals LM Nom (Urine sed) NONE SEEN Normal NONE SEEN [facility] Comment on above: Performed By: #### U MICRO, ERUR, DRUGRPD ####[facility] [address] [address]Dr. Jovanna Oneill Epithelial cells LM Ql (Urine sed) FEW Abnormal NONE SEEN /RARE [facility] Comment on above: Performed By: #### U MICRO, ERUR, DRUGRPD ####[facility] [address] [address]Dr. Jovanna Oneill HYALINE CAST FEW Normal [facility] Comment on above: Performed By: #### U MICRO, ERUR, DRUGRPD ####[facility] [address] [address]Dr. Jovanna Oneill MUCOUS NONE SEEN Normal NONE SEEN [facility] Comment on above: Performed By: #### U MICRO, ERUR, DRUGRPD ####[facility] [address] [address]Dr. Jovanna Oneill RBC 0-2 Normal 0-2 [facility] Comment on above: Performed By: #### U MICRO, ERUR, DRUGRPD ####[facility] [address] [address]Dr. Jovanna Oneill WBC 0-2 Abnormal NONE SEEN [facility] Comment on above: Performed By: #### U MICRO, ERUR, DRUGRPD ####[facility] [address] [address]DrJhony Oneill XR CHEST 1 Von 04-20-2022 XR [...] by: Ayaka LEON Date: 2022-04-20 02:33 Normal [facility] XR ANKLE RT MIN 3 [...] by: KOBE HICKEY Date: 2022-03-26 09:41 Normal [facility] Vital Signs Date Time Vital Sign Value Performing Clinician Felicia hunt 08-13-2024 12:24-0400 Body height 154.94 cm PHYSICIAN NO [facility] 08-13-2024 12:24-0400 Body temperature 97.8 [degF] PHYSICIAN NO [facility] 08-13-2024 12:24-0400 Body weight 48 kg PHYSICIAN NO [facility] 08-13-2024 12:24-0400 Diastolic blood pressure 98 mm[Hg] PHYSICIAN NO [facility] 08-13-2024 12:24-0400 Heart rate 84 /min PHYSICIAN NO [facility] 08-13-2024 12:24-0400 Respiratory rate 18 /min PHYSICIAN NO [facility] 08-13-2024 12:24-0400 SaO2% (BldA) [Mass fraction] 98 % PHYSICIAN NO [facility] 08-13-2024 12:24-0400 Systolic blood pressure 160 mm[Hg] PHYSICIAN NO [facility] Encounters Encounter Date Encounter Type Care Provider Facility Start: 08-13-2024 End: 08-13-2024 Emergency department patient visit PHYSICIAN NO [facility] Work Phone: Start: 07-10-2024 End: 07-11-2024 ambulatory Vikram Mckenna MD Facility:[facility] Start: 06-30-2024 End: 07-02-2024 ambulatory [facility] Start: 06-09-2024 End: 06-11-2024 ambulatory [facility] Start: 05-26-2024 ambulatory [facility] Start: 05-26-2024 Encounter for other preprocedural examination [facility] Start: 05-22-2024 Non-patient / Non-visit PHYSICIAN NO [facility] Work Phone: Start: 03-23-2023 [...] Facility:[facility] Start: 10-06-2022 ambulatory Woo FALCON Facility :[facility] Start: 10-03-2022 End: 10-04-2022 ambulatory TATUM SHAMMO Facility:[facility] Start: 09-14-2022 Encounter for genera l adult medical examination without abnormal findings [facility] Start: 09-12-2022 End: 09-13-2022 ambulatory [...] ALIA Facility:[facility] Start: 06-22-2022 End: 06-22-2022 ambulatory [facility] Facility:[facility] Start: 05-02-2022 End: 05-02-2022 ambulatory [facility] Facility:[facility] Start: 04-20-2022 End: 04-20-2022 ambulatory CAROL ANN ALIA Facility:[facility] Start: 03-26-2022 End: 03-26-2022 ambulatory DARRIN ANA . Facility: Plan of Treatment Date Care Activity Detail Author Patient Education Managing acute pain at home [facility] Work Phone: Patient referral [facility] Work Phone: Payers Date Payer Category Payer Self-pay [id number] Unknown 1973 Unknown [id number] 2.16.8 40.1.853845.3.579.2.727 1973 Unknown [id number] 2.16.8 40.1.531763.3.579.2.727 1973 Unknown [id number] 2.16.84 0.1.729970.3.579.2.593 1973 Unknown [id number] 2.16.84 0.1.573021.3.579.2.593 1973 Unknown [id number] 2.16.84 0.1.399960.3.579.2.593 1973 Unknown [id number] 2.16.84 0.1.618649.3.579.2.593 1973 Unknown [id number] 2.16.84 0.1.188933.3.579.2.593 1973 Unknown [id number] 2.16.84 0.1.438288.3.579.2.593 1973 Unknown [id number] 2.16.84 0.1.799209.3.579.2.593 1973 Unknown [id number] 2.16.84 0.1.400767.3.579.2.593 1973 Unknown [id number] 2.16.84 0.1.292700.3.579.2.593 1973 Unknown [id number] 2.16.84 0.1.758896.3.579.2.593 1973 Unknown [id number] 2.16.84 0.1.744636.3.579.2.593 1973 Unknown [id number] 2.16.84 0.1.649270.3.579.2.593 1973 Unknown [id number] 2.16.84 0.1.104688.3.579.2.593 1973 Unknown [id number] 2.16.84 0.1.873605.3.579.2.593 1973 Unknown [id number] 2.16.84 0.1.840402.3.579.2.593 1973 Unknown [id number] 2.16.84 0.1.727891.3.579.2.593 1973 Unknown [id number] 2.16.84 0.1.027962.3.579.2.593 1973 Unknown [id number] 2.16.84 0.1.017129.3.579.2.593 1973 Unknown [id number] 2.16.84 0.1.773653.3.579.2.593 1973 Unknown [id number] 2.16.84 0.1.150768.3.579.2.593 1973 Unknown [id number] 2.16.84 0.1.831043.3.579.2.593 1973 Unknown [id number] 2.16.84 0.1.821780.3.579.2.593 1973 Unknown [id number] 2.16.8 40.1.802005.3.579.2.174 1973 Unknown [id number] 2.16.8 40.1.688088.3.579.2.174 1973 Unknown [id number] 2.16.8 40.1.043819.3.579.2.174 1973 Unknown [id number] 2.16.8 40.1.064282.3.579.2.174 1973 Unknown [id number] 2.16.8 40.1.717036.3.579.2.174 1973 Unknown [id number] 2.16. 840.1.384848.3.579.2.196 1959 Self-pay [id number] 1959 Unknown [id number] 1959 Unknown [id number] Unknown [id number] 2.16.8 40.1.235682.3.579.2.531 Social History Date Type Detail Facility Start: 08-13-2024 [facility] Start: 1975 Sex Assigned At Female F [facility] Discharge summary note 07-11-2024 Note Date & [...] less than 30 minutes Medications New Medications [facility] [address], [address] [place] [id number], [phone] cefdinir (cefdinir 300 mg oral capsule) 1 [...] by Vikram Mckenna MD 07/11/24 11:37 EDT [facility] History and physical note 07-10-2024 Note Date [...] this time too much in pain --will relationship counselor in am discussion pain control , [...] hydrALAZINE, 10 mg= 0.5 mL, IV Push, c2sm-Cphalbno Times, PRN LR 1,000 mL, 1000 mL, [...] by Vikram Mckenna MD 07/10/24 19:12 EDT [facility] Clinical Note 07-10-2024 Note Date & Type [...] right index finger, excision: Consistent with osteomyelitis. [id number] [id number] [id number] [id number] [id number] Raul Davidson MD PhD (Electronically signed by) Verified: 07/16/24 13:53 [facility] Comment on above: Performed By: #### [facility] #### [facility] [address] [place] [address] [facility] [address] [place] [address] Clinical Note 03-05-2023 Note Date & Type [...] by: FRANCES AGUSTIN Date: 2023-03-05 11:36 [facility] Clinical Note 08-30-2022 Note Date [...] by: FRANCES AGUSTIN Date: 2022-08-30 10:20 [facility] Clinical Note 08-30-2022 Note Date [...] by: FRANCES AGUSTIN Date: 2022-08-30 10:20 [facility] Clinical Note 06-22-2022 Note Date [...] authenticated by: RJ YANEZ Date: 2022-06-22 07:13 [facility] Clinical Note 06-22-2022 Note Date [...] authenticated by: RJ YANEZ Date: 2022-06-22 07:13 [facility] Evaluation note Note Date & Type Note Facility Evaluation note No assessment information availa ble [facility] Work Phone: Hospital Discharge instructions Note Date & Type Note Facility Hospital Discharge instructions Additional Instructions Follow-up with your surgeon for further evaluation or pain medication. [facility] Work Phone: Summary Purpose Family History [...] and content) DATE CREATED AUTHOR [facility]/24/2022 [facility] DATE CREATED AUTHOR AUTHOR'S ORGANIZ ATION 03/24/2023 [facility] DATE CREATED AUTHOR AUTHOR'S ORGANIZ ATION 07/04/2024 Astrid Corinthjennifer ruiz DATE CREATED AUTHOR AUTHOR'S ORGANIZ ATION 07/18/2024 [facility] DATE CREATED AUTHOR AUTHOR'S ORGANIZ ATION 08/28/2024 [facility] Care Teams (unrecognized sec [...] BE BASED ON THE PRIMARY CLINICAL RECORDS. [employer] provides no warranty or guarantee of the accuracy or completeness of information in this document.
[2024-10-07] MEDS: MORPHINE SULFATE 4 MG/ML VIAL IM (22:51)
--- NOTE | 2024-10-07 23:14 | ED.EXTPRO1 ---
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 The patient has been seen multiple times in this emergency department for this complaint and also has followed up at the orthopedics office in [facility]. I reviewed her OARRs report-her last prescription for narcotic analgesics was on 09/08/2024 for 28 tramadol. It appears they have been weaning her down from Percocet to [place] and now tramadol. I explained to her that in light of her getting pain medication from the orthopedist she is basically in pain management with them and I cannot prescribe her any additional pain medication. She has not been on gabapentin in the past however and I offered to give her a prescription for that. She was agreeable to that but crying and stating that she cannot tolerate the pain and needs a pain injection tonight to help her sleep. She has not had any recent injury to the finger. The end of the finger appears to be well-approximated without any dehiscence or active infection. No additional injuries or complaints Related Data Home Medications ?Medication ?Instructions ?Recorded ?Confirmed levothyroxine 25 mcg capsule 25 mcg PO DAILY 05/28/24 06/08/24 oxycodone-acetaminophen 5 mg-325 1 tab PO Q6H PRN pain 05/28/24 06/08/24 mg tablet sulfamethoxazole 800 1 tab PO BID 05/28/24 06/08/24 mg-trimethoprim 160 mg tablet (Bactrim DS) Previous Rx's ?Medication ?Instructions ?Recorded budesonide-formoterol HFA 80 2 inh inhalation BID #10.2 grams 04/25/24 mcg-4.5 mcg/actuation aerosol inhaler losartan 100 1 tab PO DAILY 30 days #30 tabs 04/25/24 mg-hydrochlorothiazide 25 mg tablet pantoprazole 40 mg tablet,delayed 40 mg PO BID 30 days #60 tabs 04/25/24 release Allergies Allergy/AdvReac Type Severity Reaction Status Date / Time No Known Drug Allergies Allergy Verified 07/18/24 21:19 Review of Systems ROS Status of ROS 10 or more systems reviewed and unremarkable except as noted in history and below [facility] Medical History (Updated 10/07/24 @ 22:40 by Shanta Tripathi MD) Full dentures ?Z97.2 - Presence of dental prosthetic device (complete) (partial) (ICD-10) ?K08.109 - Complete loss of teeth, unspecified cause, unspecified class (ICD-10) Neck pain ?M54.2 - Cervicalgia (ICD-10) Depression ?F32.A - Depression, unspecified (ICD-10) Anxiety ?F41.9 - Anxiety disorder, unspecified (ICD-10) Asthma ?J45.909 - Unspecified asthma, uncomplicated (ICD-10) Chronic obstructive pulmonary disease ?J44.9 - Chronic obstructive pulmonary disease, unspecified (ICD-10) Migraine ?G43.909 - Migraine, unspecified, not intractable, without status migrainosus (ICD-10) Kidney stones ?N20.0 - Calculus of kidney (ICD-10) GERD (gastroesophageal reflux disease) ?K21.9 - Gastro-esophageal reflux disease without esophagitis (ICD-10) Hypothyroidism ?E03.9 - Hypothyroidism, unspecified (ICD-10) Hiatal hernia ?K44.9 - Diaphragmatic hernia without obstruction or gangrene (ICD-10) Colon polyp ?K63.5 - Polyp of colon (ICD-10) Ovarian cyst ?N83.209 - Unspecified ovarian cyst, unspecified side (ICD-10) Endometriosis ?N80.9 - Endometriosis, unspecified (ICD-10) Hypertension ?I10 - Essential (primary) hypertension (ICD-10) Back pain ?M54.9 - Dorsalgia, unspecified (ICD-10) Chronic neck pain ?M54.2 - Cervicalgia (ICD-10) ?G89.29 - Other chronic pain (ICD-10) Open fracture of right hand ?S62.91XB - Unspecified fracture of right wrist and hand, initial encounter for open fracture (ICD-10) Anxiety and depression ?F41.9 - Anxiety disorder, unspecified (ICD-10) ?F32.A - Depression, unspecified (ICD-10) HTN (hypertension) ?I10 - Essential (primary) hypertension (ICD-10) Bulging of cervical intervertebral disc ?M50.30 - Other cervical disc degeneration, unspecified cervical region (ICD-10) Osteoporosis ?M81.0 - Age-related osteoporosis without current pathological fracture (ICD-10) Surgical History (Updated 05/28/24 @ 13:04 by Monique Benson NP) History of tonsillectomy ?Z90.89 - Acquired absence of other organs (ICD-10) History of colonoscopy ?Z98.890 - Other specified postprocedural states (ICD-10) History of esophagogastroduodenoscopy (EGD) ?Z98.890 - Other specified postprocedural states (ICD-10) History of laparoscopy ?Z98.890 - Other specified postprocedural states (ICD-10) History of appendectomy ?Z90.49 - Acquired absence of other specified parts of digestive tract (ICD-10) History of hysterectomy ?Z90.710 - Acquired absence of both cervix and uterus (ICD-10) History of cholecystectomy ?Z90.49 - Acquired absence of other specified parts of digestive tract (ICD-10) Family History (Updated 05/28/24 @ 13:04 by Monique Benson NP) Other Brain tumor Cancer Family history of aneurysm Family history of diabetes mellitus Family history of hypertension Social History (Updated 05/28/24 @ 12:57 by Monique Benson NP) Within the past year, how often did you have a drink containing alcohol: never Score interpretation: A score less than 3 is consistent with normal alcohol consumption. Smoking status: Current every day smoker What tobacco products do you use: cigarettes Cigarettes per day: 30 Years smoked: 36 Smoking pack-years: 54.00 Non-prescribed substance use: cannabis (any form) Highest level of school completed/degree received: 11th grade Little interest or pleasure in doing things: not at all Feeling down, depressed, or hopeless: not at all Exam Narrative Exam Narrative: Vital signs and Nursing Notes reviewed: Patient is afebrile with a normal pulse, normal blood pressure, she is not hypoxic with pulse ox of 76% on room air General: Awake, alert, anxious, crying, no respiratory distress HEENT: Normocephalic atraumatic Chest: Lungs are clear to auscultation with good air entry, there is no wheezing rhonchi or rales appreciated no accessory muscle use, patient is speaking in complete sentences-no chest wall tenderness to palpation CVS: Regular rate and rhythm S1-S2, no murmurs rubs or gallops, pulses are brisk and equal bilaterally Extremities: Right index finger is amputated at the distal end of the proximal phalanx. The surgical site appears to be well-approximated and intact without any dehiscence, erythema. Patient refused palpatory exam due to discomfort. Skin: Normal in appearance without rash,pallor, petechiae or purpura Neuro: No focal deficits Constitutional Vital Signs, click to edit/add: Last Vital Signs Temp 98.2 F 10/07/24 21:54 Pulse 76 10/07/24 21:54 Resp 16 10/07/24 21:54 BP 122/92 H 10/07/24 21:54 Pulse Ox 98 10/07/24 21:54 O2 Del Method Room Air 10/07/24 21:54 Course Vital Signs Vital signs: Vital Signs Temperature 98.2 F 10/07/24 21:54 Pulse Rate 76 10/07/24 21:54 Respiratory Rate 16 10/07/24 21:54 Blood Pressure 122/92 H 10/07/24 21:54 Pulse Oximetry 98 10/07/24 21:54 Oxygen Delivery Method Room Air 10/07/24 21:54 Temperature 98.2 F 10/07/24 21:54 Pulse Rate 76 10/07/24 21:54 Respiratory Rate 16 10/07/24 21:54 Blood Pressure 122/92 H 10/07/24 21:54 Pulse Oximetry 98 10/07/24 21:54 Oxygen Delivery Method Room Air 10/07/24 21:54 MDM - Extremity (Nontraumatic) MDM Narrative Medical decision making narrative: This 49-year-old female who had a partial amputation of the right index finger in the past presents for evaluation of ongoing pain in this finger. She had an initial surgery and then was taken back to surgery for revision. She is essentially in pain management with her orthopedic doctors. She states she is currently not receiving any medication. Her last prescription for tramadol was on 1027. I explained to her that due to her ongoing need for narcotic analgesics she will need to follow-up with her orthopedic doctors. She explained that she cannot sleep at night due to the pain in her finger and requested a shot of pain medication. I did agree to give her an injection of morphine if she had a ride. Her father was waiting in the parking lot and came in to assure us that he would be driving her home. She was medicated with a dose of morphine and discharged home with a prescription for gabapentin. 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 Patient Disposition: Home, Self-Care Time of Disposition Decision: 22:38 Condition: Good Prescriptions / Home Meds: No Action budesonide-formoterol 80-4.5 mcg/actuation HFA aerosol inhaler 2 inh inhalation BID Qty: 10.2 0RF losartan-hydrochlorothiazide 100-25 mg tablet 1 tab PO DAILY 30 Days Qty: 30 0RF pantoprazole 40 mg tablet,delayed release (DR/EC) 40 mg PO BID 30 Days Qty: 60 0RF oxycodone-acetaminophen 5-325 mg tablet 1 tab PO Q6H PRN (Reason: pain) sulfamethoxazole-trimethoprim [Bactrim DS] 800-160 mg tablet 1 tab PO BID levothyroxine 25 mcg capsule 25 mcg PO DAILY Print Language: Arabic Instructions: Chronic Pain (ED) Referrals: Physician,Non-Staff, MD [Primary Care Provider] - 1 week
== END 2024-10-07 23:41 | disposition home or self-care (01) ==
PROVIDERS: Emergency Provider Emergency Medicine
DX: G89.29 Other chronic pain (principal); M79.644 Pain in right finger(s); Z90.710 Acquired absence of both cervix and uterus; Z90.49 Acquired absence of other specified parts of digestive tract; Z89.021 Acquired absence of right finger(s); F17.210 Nicotine dependence, cigarettes, uncomplicated
CPT/HCPCS: 96372; 99284; J2270

== ENCOUNTER 2024-12-05 21:11 | Emergency (ER) | payer OTHER, SELFPAY ==
[2024-12-05 21:14] VITALS: BP 176/120; PULSE 69; TEMP 37.1; O2SAT 98; BMI 19.8
--- OUTSIDE RECORDS SUMMARY | 2024-12-05 21:17 | XMS_ITS | CCD ---
Author Organization [facility] [place] [facility] Team Providers Care Paper Wood Cutter Name Role Phone Woo FALCON Attending Unavailable [...] Vazquez Admitting Unavailabl e REINECK, DR PERI Vazqeuz Attending Unavailabl e REINECK, DR PERI Vazquez [...] Attending Unavailable ANA ., DARRIN Admitting Unavailable [facility] Primary Care Unavailable KOBE HICKEY Consulting Unavailable MARKER ., DR MAX Attending Unavailable MARKER ., DR MAX Admitting Unavailable MARKER ., DR MAX Consulting Unavailable [facility] Primary Care Unavailable LEON, JIMMY Consulting Unavailable SHAMMO, TATUM Primary Care Unavailable SAI, VAUGHN Admitting Unavailable SAI, VAUGHN Attending Unavailable SAI, VAUGHN Consulting Unavailable WOO PAIGE Consulting Unavailable SHAMMO, TATUM Consulting Unavailable [facility] Primary Care Unavailable SAI, VAUGHN Admitting Unavailable SAI, VAUGHN Attending Unavailable BEAU, DR RJ Foster Consulting Unavailable HAY ., DR BIRD Consulting Unavailable SAI, VAUGHN Consulting Unavailable ALIA, CAROL ANN Admitting Unavailable ALIA, CAROL ANN Attending Unavailable [facility] Primary Care Unavailable SHAMMO, TATUM Admitting Unavailable SHAMMO, TATUM Attending Unavailable SHAMMO, TATUM Primary Care Unavailable SHAMMO, TATUM Consulting Unavailable [facility] Primary Care Unavailable LUIS EDUARDO, DR LAYA Bryan Admitting Unavailable LUIS EDUARDO, DR LAYA Bryan Attending Unavailable LUIS EDUARDO, DR LAYA Bryan Consulting Unavailable EDWARD, JIMMY Consulting Unavailable JESSICA, SANTO J Referring Unavailable RECINOS, SANTO J Admitting Unavailable RECINOS, SANTO J Attending Unavailable JESSICA, SANTO J Referring Unavailable RECINOS, SANTO J Referring Unavailable RECINOS, SANTO J Referring Unavailable NO FAMILY, PHYSICIAN Primary Care Provider Unava ilable LEXI Griggs Emergency Provider [phone] Zackery Griggs Attending Unavailable Zackery Griggs Admitting Unavailable NO FAMILY, PHYSICIAN Primary Care Unavailable Vikram Mckenna MD Attending Unavailable Vikram Mckenna MD Admitting Unavailable Unavailable, Physician Primary Care Unavailab Santo Ferro DO Consulting Unavailabl e Allergies Allergy Classification Reported Allergen(s) Allergy Type Date of Onset Reaction(s) Facility (2 sources) No Known Medication Allergies; Translations: [No Known Medication Allergies] Propensity to adverse reactions (disorder) [facility] Repository Problems Active Problems Problem Classification [...] 01-15-2023 Chronic Other aftercare (1 source) Other nursing home (current) drug therapy; Translations: [OTH LONG-TERM CURRENT DRUG THERAPY] Onset: 02-26-2023 Episodic Other [...] Final No anaerobic growth after 72 hrs. [facility] Comment on above: Performed By: #### A NAC #### [place] [address] C NOE - ---- Final No anaerobic growth after 72 hrs. [facility] Comment on above: Performed By: #### S BS #### [facility] (DEFAULT) [address] [place], [place] [id number] C NOE - ---- Final No anaerobic growth after 72 hrs. [facility] Comment on above: Performed By: #### A NAC #### [address] [address] C NOE - ---- Final No anaerobic growth after 72 hrs. [facility] Comment on above: Performed By: #### S BS #### [facility] (DEFAULT) [address] [place] [address] [address] C Sterile BSon 07-12-2024 C Sterile BS [...] <=0.25 V Trimethoprim/Sulfa S <=20 V Normal [facility] Comment on above: Performed By: #### S BSC #### [facility] (DEFAULT) [address] [place] [address] [facility] [address] [place] [address] C Sterile BS - ---- Final Light [...] <=10 V Vancomycin S 1 V Normal [facility] Comment on above: Performed By: #### S [facility] #### [facility] (DEFAULT) [address] [place] [address] [facility] [address] [place] [address] C Sterile BS - ---- Final Moderate [...] <=10 V Vancomycin S 1 V Normal [facility] Comment on above: Performed By: #### S [facility] #### [facility] (DEFAULT) [address] [place] [address] [facility] [address] [place] [address], [place] [address] C Sterile BS - ---- Final Moderate [...] <=10 V Vancomycin S 1 V Normal [facility] Comment on above: Performed By: #### S BSC #### [facility] (DEFAULT) [address] [place] [address] [facility] [address] [place] [address] .eGFRon 07-11-2024 GFR/1.73 sq M.predicted MDRD (S/P/Bld) [Vol rate/Area] mL/min/{1.73_m2} Normal >=60 [facility] Comment on above: Result Comment: [facility] Laboratories have implemented the eGFR calculation [...] years Performed By: #### A NAC #### [facility] [address] [place] [address] CBC w/ Diffon 07-11-2024 Erythrocyte distribution width (RBC) [Ratio] 13.4 % Normal 11.6-14.8 [facility] Comment on above: Performed By: #### S BSC #### [facility] (DEFAULT) [address] [place] [address] [facility] [address] [place] [address] Hematocrit (Bld) [Volume fraction] 37.5 % Normal 36.0-46.0 [facility] Comment on above: Performed By: #### S BSC #### [facility] (DEFAULT) [address] [place] [address] [facility] [address] [place] [address] Hemoglobin (Bld) [Mass/Vol] 12.6 g/dL Normal 12.0-16.0 [facility] Comment on above: Performed By: #### S BSC #### [facility] (DEFAULT) [address] [place] [address] [facility] [address] [place] [address] MCH (RBC) [Entitic mass] 32.5 pg Normal 27.0-35.0 [facility] Comment on above: Performed By: #### S BSC #### [facility] (DEFAULT) [address] [place] [address] [facility] [address] [place] [address] MCHC 33.7 % Normal 31.0-37.0 [facility] Comment on above: Performed By: #### S BSC #### [facility] (DEFAULT) [address] [place] [address] [facility] [address] [place] [address] MCV (RBC) [Entitic vol] 96.6 fL Normal 80.0-100.0 [facility] Comment on above: Performed By: #### S BSC #### [facility] (DEFAULT) [address] [place] [address] [facility] [address] [place] [address] Platelet 172 x10*3/mcL Normal 150-450 [facility] Comment on above: Performed By: #### S BSC #### [facility] (DEFAULT) [address] [place] [address] [facility] [address] [place] [address] Platelet mean volume (Bld) [Entitic vol] 9.3 fL Normal 6.7-10.6 [facility] Comment on above: Performed By: #### S BSC #### [facility] (DEFAULT) [address] [place] [address] [facility] [address] [place] [address] RBC 3.88 x10*6/mcL Normal 3.80-5.20 [facility] Comment on above: Performed By: #### S BSC #### [facility] (DEFAULT) [address] [place] [address] [facility] [address] [place] [address] WBC 8.8 x10*3/mcL Normal 4.5-11.0 [facility] Comment on above: Performed By: #### S BSC #### [facility] (DEFAULT) [address] [place] [address] [facility] [address] [place] [address] CMPon 07-11-2024 Albumin [Mass/Vol] 3.5 g/dL Normal 3.2-4.9 [facility] Comment on above: Performed By: #### S BSC #### [facility] (DEFAULT) [address] [place] [address] [facility] [address] [place] [address] Albumin/Globulin [Mass ratio] 1.5 {ratio} Normal 1.1-2.2 [facility] Comment on above: Performed By: #### S BSC #### [facility] (DEFAULT) [address] [place] [address] [facility] [address] [place] [address] Alk Phos 66 IU/L Normal 32-91 [facility] Comment on above: Performed By: #### S BSC #### [facility] (DEFAULT) [address] [place] [address] [facility] [address] [place] [address] ALT [Catalytic activity/Vol] 11 U/L Low 14-54 [facility] Comment on above: Performed By: #### S BSC #### [facility] (DEFAULT) [address] [place] [address] [facility] [address] [place] [address] Anion gap [Moles/Vol] 7 mmol/L Normal 4-12 [facility] Comment on above: Performed By: #### S BSC #### [facility] (DEFAULT) [address] [place] [address] [facility] [address] [place] [address] AST [Catalytic activity/Vol] 16 U/L Normal 15-41 [facility] Comment on above: Performed By: #### S BSC #### [facility] (DEFAULT) [address] [place] [address] [facility] [address] [place] [address] Bili Total 1.3 mg/dL High 0.3-1.2 [facility] Comment on above: Performed By: #### S BSC #### [facility] (DEFAULT) [address] [place] [address] [facility] [address] [place] [address] Calcium [Mass/Vol] 8.4 mg/dL Low 8.5-10.3 [facility] Comment on above: Performed By: #### S BSC #### [facility] (DEFAULT) [address] [place] [address] [facility] [address] [place] [address] Chloride [Moles/Vol] 103 mmol/L Normal 98-110 [facility] Comment on above: Performed By: #### S BSC #### [facility] (DEFAULT) [address] [place] [address] [facility] [address] [place] [address] CO2 [Moles/Vol] 28 mmol/L Normal 22-32 [facility] Comment on above: Performed By: #### S BSC #### [facility] (DEFAULT) [address] [place] [address] [facility] [address] [place] [address] Creatinine [Mass/Vol] 0.63 mg/dL Normal 0.44-1.03 [facility] Comment on above: Performed By: #### S BSC #### [facility] (DEFAULT) [address] [place] [address] [facility] [address] [place] [address] Glucose [Mass/Vol] 103 mg/dL High 70-99 [facility] Comment on above: Performed By: #### S BSC #### [facility] (DEFAULT) [address] [place] [address] [facility] [address] [place] [address] Potassium [Moles/Vol] 2.9 mmol/L Low 3.4-4.8 [facility] Comment on above: Performed By: #### S BSC #### [facility] (DEFAULT) [address] [place] [address] [facility] [address] [place] [address] Protein [Mass/Vol] 5.9 g/dL Low 6.5-8.1 [facility] Comment on above: Performed By: #### S BSC #### [facility] (DEFAULT) [address] [place] [address] [facility] [address] [place] [address] Sodium [Moles/Vol] 138 mmol/L Normal 133-142 [facility] Comment on above: Performed By: #### S BSC #### [facility] (DEFAULT) [address] [place] [address] [facility] [address] [place] [address] Urea nitrogen [Mass/Vol] 7 mg/dL Low 8-26 [facility] Comment on above: Performed By: #### S BSC #### [facility] (DEFAULT) [address] [place] [address] [facility] [address] [place] [address] Urea nitrogen/Creatinine [Mass ratio] 11.1 mg/mg Normal 10.0-20.0 [facility] Comment on above: Performed By: #### S BSC #### [facility] (DEFAULT) [address] [place] [address] [facility] [address] [place] [address] Dietary Consultationon 07-11 Dietary Consultation Consult for [...] 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 Reports UBW of 108# since losing weight about 3-4 years ago which algins with weight on admit. Reports she is discharging after potassium infusion. Will continue to follow along appropriately. Electronically signed by Mehnaz Moran RD 07/11/24 15:56 EDT Normal [facility] Diff Autoon 07-11-2024 Baso Absolute 0.0 x10*3/mcL Normal 0.0-0.2 [facility] Comment on above: Performed By: #### A NAC #### [facility] [address] [place] [address] Basophils/100 WBC (Bld) 0.5 % Normal 0.0-1.5 [facility] Comment on above: Performed By: #### A NAC #### [facility] [address] [place] [address] Eos Absolute 0.0 x10*3/mcL Normal 0.0-0.4 [facility] Comment on above: Performed By: #### A NAC #### [address] [address] Eosinophils/100 WBC (Bld) 0.3 % Normal 0.0-5.4 [facility] Comment on above: Performed By: #### A NAC #### [address] [address] Lymph Absolute 2.1 x10*3/mcL Normal 1.0-4.8 [facility] Comment on above: Performed By: #### A NAC #### [address] [address] Lymphocytes/100 WBC (Bld) 24.0 % Low 27.2-40.8 [facility] Comment on above: Performed By: #### A NAC #### [address] [address] Burke Absolute 0.5 x10*3/mcL Normal 0.1-1.1 [facility] Comment on above: Performed By: #### A NAC #### [address] [address] Monocytes/100 WBC (Bld) 6.1 % Normal 3.7-11.9 [facility] Comment on above: Performed By: #### A NAC #### [address] [address] Neutro Absolute 6.1 x10*3/mcL Normal 1.8-7.7 [facility] Comment on above: Performed By: #### A NAC #### [address] [address] Neutro Auto 69.1 % Normal 47.2-70.8 [facility] Comment on above: Performed By: #### A NAC #### [address] [address] Inpatient Clinical Summary 07-11-2024 Inpatient Clinical Summary [address] [address] Clinical Summary Person Information Name: Kati Thorne Age: 48 Years : 1975 Sex: Female PCP: Unavailable, Physician Marital Status: Phone: PCP: Race: White Ethnicity: Not or Language: Finnish Visit Id: Visit Reason: Speciality: Acuity: Enc Type: Observation Med Service: Surgery Arrival: 07/10/2024 11:21:35 Discharge: Dispo Type: Address: [address] [place] [phone] Diagnosis: Discharged To: Home Treatments: Devices/Equipment: Professional Skilled Services: Special Services and Community Resources: Mode of Discharge Transportation: Discharge Orders Discharge Special Instructions cardiology associate will contact you tomorrow regarding pain medication [...] range between ( 27.2 and 40.8 ) Burke Auto: 6.1 % -- Normal range between [...] range between ( 36.0 and 46.0 ) Burke Absolute: 0.5 x10 MCH: 32.5 pg -- [...] Immunizations Doc (more content not included)... Normal [facility] Potassiumon 07-11-2024 Potassium [Moles/Vol] 4.0 mmol/L Normal 3.4-4.8 [facility] Comment on above: Performed By: #### A NAC #### [facility] [address] [place] [address] Progress Note-Nurseon 2023 Progress Note-Nurse Discharge instructions reviewed with pt and pt verbalizes understanding. Pt taken per wheelchair to private vehicle accompanied by tech. Electronically signed by Marysol Lopes 07/11/24 17:03 EDT Normal [facility] .eGFRon 07-10-2024 GFR/1.73 sq M.predicted MDRD (S/P/Bld) [Vol rate/Area] mL/min/{1.73_m2} Normal >=60 [facility] Comment on above: Result Comment: [facility] Laboratories have implemented the eGFR calculation [...] years Performed By: #### A NAC #### [place] [id number] CBC w/ Diffon 07-10-2024 Erythrocyte distribution width (RBC) [Ratio] 13.5 % Normal 11.6-14.8 [facility] Comment on above: Performed By: #### A NAC #### [place] [id number] Hematocrit (Bld) [Volume fraction] 39.9 % Normal 36.0-46.0 [facility] Comment on above: Performed By: #### A NAC #### [place] [id number] Hemoglobin (Bld) [Mass/Vol] 13.3 g/dL Normal 12.0-16.0 [facility] Comment on above: Performed By: #### A NAC #### [place] [id number] MCH (RBC) [Entitic mass] 32.2 pg Normal 27.0-35.0 [facility] Comment on above: Performed By: #### A NAC #### [address] [address] MCHC 33.4 % Normal 31.0-37.0 [facility] Comment on above: Performed By: #### A NAC #### [place] [id number] MCV (RBC) [Entitic vol] 96.6 fL Normal 80.0-100.0 [facility] Comment on above: Performed By: #### A NAC #### [place] [id number] Platelet 182 x10*3/mcL Normal 150-450 [facility] Comment on above: Performed By: #### A NAC #### [place] [id number] Platelet mean volume (Bld) [Entitic vol] 8.9 fL Normal 6.7-10.6 [facility] Comment on above: Performed By: #### A NAC #### [place] [id number] RBC 4.13 x10*6/mcL Normal 3.80-5.20 [facility] Comment on above: Performed By: #### A NAC #### [address] [address] WBC 10.2 x10*3/mcL Normal 4.5-11.0 [facility] Comment on above: Performed By: #### A NAC #### [address] [address] CMPon 07-10-2024 Albumin [Mass/Vol] 3.8 g/dL Normal 3.2-4.9 [facility] Comment on above: Performed By: #### A NAC #### [address] [address] Albumin/Globulin [Mass ratio] 1.4 {ratio} Normal 1.1-2.2 [facility] Comment on above: Performed By: #### A NAC #### [address] [address] Alk Phos 75 IU/L Normal 32-91 [facility] Comment on above: Performed By: #### A NAC #### [address] [address] ALT [Catalytic activity/Vol] 13 U/L Low 14-54 [facility] Comment on above: Performed By: #### A NAC #### [address] [address] Anion gap [Moles/Vol] 10 mmol/L Normal 4-12 [facility] Comment on above: Performed By: #### A NAC #### [address] [address] AST [Catalytic activity/Vol] 17 U/L Normal 15-41 [facility] Comment on above: Performed By: #### A NAC #### [address] [address] Bili Total 0.9 mg/dL Normal 0.3-1.2 [facility] Comment on above: Performed By: #### A NAC #### [address] [address] Calcium [Mass/Vol] 8.6 mg/dL Normal 8.5-10.3 [facility] Comment on above: Performed By: #### A NAC #### [address] [address] Chloride [Moles/Vol] 103 mmol/L Normal 98-110 [facility] Comment on above: Performed By: #### A NAC #### [address] [address] CO2 [Moles/Vol] 27 mmol/L Normal 22-32 [facility] Comment on above: Performed By: #### A NAC #### [address] [address] Creatinine [Mass/Vol] 0.54 mg/dL Normal 0.44-1.03 [facility] Comment on above: Performed By: #### A NAC #### [address] [address] Glucose [Mass/Vol] 105 mg/dL High 70-99 [facility] Comment on above: Performed By: #### A NAC #### [address] [address] Potassium [Moles/Vol] 2.7 mmol/L Low 3.4-4.8 [facility] Comment on above: Performed By: #### A NAC #### [address] [address] Protein [Mass/Vol] 6.6 g/dL Normal 6.5-8.1 [facility] Comment on above: Performed By: #### A NAC #### [address] [address] Sodium [Moles/Vol] 140 mmol/L Normal 133-142 [facility] Comment on above: Performed By: #### A NAC #### [address] [address] Urea nitrogen [Mass/Vol] 9 mg/dL Normal 8-26 [facility] Comment on above: Performed By: #### A NAC #### [address] [address] Urea nitrogen/Creatinine [Mass ratio] 16.7 mg/mg Normal 10.0-20.0 [facility] Comment on above: Performed By: #### A NAC #### [address] [address] Diff Autoon 07-10-2024 Baso Absolute 0.1 x10*3/mcL Normal 0.0-0.2 [facility] Comment on above: Performed By: #### A NAC #### [address] [address] Basophils/100 WBC (Bld) 0.6 % Normal 0.0-1.5 [facility] Comment on above: Performed By: #### A NAC #### [address] [address] Eos Absolute 0.0 x10*3/mcL Normal 0.0-0.4 [facility] Comment on above: Performed By: #### A NAC #### [address] [address] Eosinophils/100 WBC (Bld) 0.3 % Normal 0.0-5.4 [facility] Comment on above: Performed By: #### A NAC #### [address] [address] Lymph Absolute 2.3 x10*3/mcL Normal 1.0-4.8 [facility] Comment on above: Performed By: #### A NAC #### [address] [address] Lymphocytes/100 WBC (Bld) 22.8 % Low 27.2-40.8 [facility] Comment on above: Performed By: #### A NAC #### [address] [address] Burke Absolute 0.5 x10*3/mcL Normal 0.1-1.1 [facility] Comment on above: Performed By: #### A NAC #### [address] [address] Monocytes/100 WBC (Bld) 5.2 % Normal 3.7-11.9 [facility] Comment on above: Performed By: #### A NAC #### [address] [address] Neutro Absolute 7.2 x10*3/mcL Normal 1.8-7.7 [facility] Comment on above: Performed By: #### A NAC #### [address] [address] Neutro Auto 71.1 % High 47.2-70.8 [facility] Comment on above: Performed By: #### A NAC #### [address] [address] Magnesiumon 07-10-2024 Magnesium [Mass/Vol] 1.8 mg/dL Normal 1.7-2.4 [facility] Comment on above: Performed By: #### S BSC #### [facility] (DEFAULT) [address] [place] [address] [facility] [address] [place] [address] Operative Reporton Operative Report Indication for Surgery [...] Surgeon(s) Santo Recinos DO (Surgeon - Primary) Flight Technician None Anesthesia General Thaddeus RAMIREZ, Dominick Young (Stone Grader) Zackery De Dios (Provider) Estimated Blood Loss [...] Santo Recinos DO 07/10/24 15:47 EDT Normal [facility] XR Finger 2nd Digit Righton 07-10-2024 XR [...] Electronically Signed in Other Vendor System) Normal [facility] XR FINGER LEFT (MIN 2 VIEWS) on [...] Robertson Jr., MD 06/30/24 Final result Normal [facility] XR FINGER RIGHT (MIN 2 VIEWS [...] Robertson Jr., MD 06/09/24 Final result Normal [facility] XR NECK SOFT TISSUEon 2022 XR [...] ANGY SMALLS Date: 2023-02-23 13:14 Normal [facility] FREE T4on 02-20-2023 Free T4 [Mass/Vol] 0.65 ng/dL Critically low 0.76-1.46 [facility] Comment on above: Performed By: #### L ACT #### [facility] [address] [place] [address] [address] Jovanna Oneill TSH W/ REFLEX TO FT4on 02-20 TSH 5.032 uIU/mL Critically high 0.358-3.740 [facility] Comment on above: Performed By: #### L ACT #### [facility] [address] [address] [address] Jovanna Oneill RESPIRATORY PANEL PLUSon Adenovirus Not detected Normal NOT DETECTED [facility] Comment on above: Performed By: #### R SPLUS ####[facility] [address] [place], [place] [address]Dr. Jovanna Oneill B. Parapertusis Not detected Normal NOT DETECTED [facility] Comment on above: Performed By: #### R SPLUS ####[facility] [address] [place], [place] [address]Dr. Jovanna Oneill B. Pertussis Not detected Normal NOT DETECTED [facility] Comment on above: Performed By: #### R SPLUS ####[facility] [address] [place], [place] [address]Dr. Jovanna Oneill Chlamydia Pneumoniae Not detected Normal NOT DETECTED [facility] Comment on above: Performed By: #### R SPLUS ####[facility] [address] [place], [place] [address]Dr. Jovanna Oneill Coronavirus 229E Not detected Normal NOT DETECTED [facility] Comment on above: Performed By: #### R SPLUS ####[facility] [address] [place], [place] [address]Dr. Jovanna Oneill Coronavirus HKU1 Not detected Normal NOT DETECTED [facility] Comment on above: Performed By: #### R SPLUS ####[facility] [address] [place], [place] [address]Dr. Jovanna Oneill Coronavirus NL63 Not detected Normal NOT DETECTED [facility] Comment on above: Performed By: #### R SPLUS ####[facility] [address] [place] [address]Dr. Jovanna Oneill Coronavirus OC43 Not detected Normal NOT DETECTED [facility] Comment on above: Performed By: #### R SPLUS ####[facility] [address] [place] [address]Dr. Jovanna Oneill Influenza A H1 Not detected Normal NOT DETECTED [facility] Comment on above: Performed By: #### R SPLUS ####[facility] Rh[address] [place], [place] [address]Dr. Jovanna Oneill Influenza A H1 2009 Not detected Normal NOT DETECTED [facility] Comment on above: Performed By: #### R SPLUS ####[facility] Xyv[address] [place], [place] [address]Dr. Jovanna Oneill Influenza A H3 Not detected Normal NOT DETECTED [facility] Comment on above: Performed By: #### R SPLUS ####[facility] Yaf[address] [place], [place] [address]Dr. Jovanna Oneill Influenza B Not detected Normal NOT DETECTED [facility] Comment on above: Performed By: #### R SPLUS ####[facility] Zxvmobsriw[address] [place], [place] [address]Dr. Jovanna Oneill Metapneumovirus Not detected Normal NOT DETECTED [facility] Comment on above: Performed By: #### R SPLUS ####[facility] Icdhq[address]zljp[address] [place], [place] [address]Dr. Jovanna Oneill Mycoplas. Pneumoniae Not detected Normal NOT DETECTED [facility] Comment on above: Performed By: #### R SPLUS ####[facility] Ghldsmhrkc[address] [place], [place] [address]Dr. Jovanna Oneill Parainfluenza 1 Not detected Normal NOT DETECTED [facility] Comment on above: Performed By: #### R SPLUS ####[facility] Morjfl[address]so[address] [place], [place] [address]Dr. Jovanna Oneill Parainfluenza 2 Not detected Normal NOT DETECTED [facility] Comment on above: Performed By: #### R SPLUS ####[facility] [address] [place] [address]Dr. Jovanna Oneill Parainfluenza 3 Not detected Normal NOT DETECTED [facility] Comment on above: Performed By: #### R SPLUS ####[facility] Pb[address]wcv[address] [place], [place] [address]Dr. Jovanna Oneill Parainfluenza 4 Not detected Normal NOT DETECTED [facility] Comment on above: Performed By: #### R SPLUS ####[facility] Md[address] [place], [place] [address]Dr. Jovanna Oneill Rhino/Enterovirus Not detected Normal NOT DETECTED [facility] Comment on above: Performed By: #### R SPLUS ####[facility] Y[address] [place], [place] [address]Dr. Jovanna Oneill RP2 Header 1 RESPIRATORY PANEL: VIRUSES Normal [facility] Comment on above: Performed By: #### R SPLUS ####[facility] Ysmsql[address]ec[address] [place], [place] [address]Dr. Jovanna Oneill RP2 Header 2 RESPIRATORY PANEL: BACTERIA Normal [facility] Comment on above: Performed By: #### R SPLUS ####[facility] Q[address] [place], [place] [address]Dr. Jovanna Oneill RSV Not detected Normal NOT DETECTED [facility] Comment on above: Performed By: #### R SPLUS ####[facility] D[address] [place], [place] [address]Dr. Jovanna Oneill SARS-CoV-2 (COVID-19) RNA DUC+probe Ql (Unsp spec) Not detected Normal NOT DETECTED [facility] Comment on above: Performed By: #### R SPLUS ####[facility] [address] [place], [place] [address]Dr. Jovanna Oneill MG MAMM SCREEN 3D CHELLY CADon 01-12-2023 MG MAMM SCREEN 3D CHELLY CAD Patient: KATI THORNE Exam Date: 01/12/2023 : 1975 Gender:F Ordering : TATUM ONOFRE Admission #: [id number] Family : Order #: [id number] CLICK HERE TO VIEW EXAM RADIOLOGY REPORT [...] cervical cancer at age 40. LOCATION: [facility] BREAST COMPOSITION: Almost entirely fatty. FINDINGS: [...] Yanez MD on 01/12/2023 at 12:[address] [facility] XR DEXA BONE DENSITYon 01-12 XR [...] RJ YANEZ Date: 2023-01-12 17:10 Normal [facility] GABAPENTIN URINEon Gabapentin, Urine Negative Normal [facility] Comment on above: Performed By: #### G ABAP ####[facility] [address] [place], [place] [address]UgJhony Jovanna Nino DRUG SCREEN RAPID (URINE)on 11-14-2022 AMP Negative Normal NEGATIVE [facility] Comment on above: Performed By: #### V ITB12 #### [facility] [address] [place] [address] Dr. Jovanna Oneill BAR Negative Normal NEGATIVE [facility] Comment on above: Performed By: #### V ITB12 #### [facility] [address] [place] [address] Dr. Jovanna Oneill BUP Negative Normal NEGATIVE [facility] Comment on above: Performed By: #### V ITB12 #### [facility] [address] [place] [address] Dr. Jovanna Oneill BZO Negative Normal NEGATIVE [facility] Comment on above: Performed By: #### V ITB12 #### [facility] [address] [place] [address] Dr. Jovanna Oneill CARA Negative Normal NEGATIVE [facility] Comment on above: Performed By: #### V ITB12 #### [facility] [address] [place] [address] Dr. Jovanna Oneill CUT-OFFS SEE BELOW Normal [facility] Comment on above: Result Comment: AMP [...] ng/mL Performed By: #### V ITB12 #### [facility] [address] [place] [address] Dr. Jovanna Oneill DRUG CUT HEADER DRUG CLASS TEST SYSTEM CUT-OFF CONCENTRATIONS ARE FOLLOWS: Normal [facility] Comment on above: Performed By: #### V ITB12 #### [facility] [address] [place] [address] Dr. Jovanna Oneill mAMP Negative Normal NEGATIVE [facility] Comment on above: Performed By: #### V ITB12 #### [facility] [address] [address] [address] Jovanna Oneill MTD Negative Normal NEGATIVE [facility] Comment on above: Performed By: #### V ITB12 #### [facility] [address] [place] [address] Dr. Jovanna Oneill OPI Positive Abnormal NEGATIVE [facility] Comment on above: Performed By: #### V ITB12 #### [facility] [address] [place] [address] Dr. Jovanna Oneill OXY Negative Normal NEGATIVE [facility] Comment on above: Performed By: #### V ITB12 #### [facility] [address] [place] [address] Dr. Jovanna Oneill PCP Negative Normal NEGATIVE [facility] Comment on above: Performed By: #### V ITB12 #### [facility] [address] [place] [address] Dr. Jovanna Oneill PPX Negative Normal NEGATIVE [facility] Comment on above: Performed By: #### V ITB12 #### [facility] [address] [place] [address] Dr. Jovanna Oneill TCA Negative Normal NEGATIVE [facility] Comment on above: Performed By: #### V ITB12 #### [facility] [address] [place] [address] Dr. Jovanna Oneill THC Positive Abnormal NEGATIVE [facility] Comment on above: Performed By: #### V ITB12 #### [facility] [address] [place] [address] Dr. Jovanna Oneill CBC AUTO DIFFon 10-08-2022 BASO # 0.0 103/ul Normal 0.0-0.[address] [facility] Comment on above: Performed By: #### C BC #### [facility] [address] [place] [address] Dr. Jovanna Oneill Basophils/100 WBC (Bld) 0.4 % Normal 0.2-2.[address] [facility] Comment on above: Performed By: #### C BC #### [facility] [address] [place] [address] Dr. Jovanna Oneill EO # 0.1 103/ul Normal 0.0-0.7 [facility] Comment on above: Performed By: #### C BC #### [facility] [address] [place] [address] Dr. Jovanna Oneill Eosinophils/100 WBC (Bld) 1.3 % Normal 0.9-7.0 [facility] Comment on above: Performed By: #### C BC #### [facility] [address] [place] [address] Dr. Jovanna Oneill Erythrocyte distribution width (RBC) [Ratio] 12.0 % Normal 11.0-15.[address] [facility] Comment on above: Performed By: #### C BC #### [facility] [address] [place] [address] Dr. Jovanna Oneill Hematocrit (Bld) [Volume fraction] 37.8 % Normal 36.0-48.[address] [facility] Comment on above: Performed By: #### C BC #### [facility] [address] [place] [address] Dr. Jovanna Oneill Hemoglobin (Bld) [Mass/Vol] 12.8 g/dL Normal 12.0-16.[address] [facility] Comment on above: Performed By: #### C BC #### [facility] [address] [place] [address] Dr. Jovanna Oneill IG # 0.02 10e3/ul Normal 0.00-0.03 [facility] Comment on above: Performed By: #### C BC #### [facility] [address] [place] [address] Dr. Jovanna Oneill IG % 0.2 % Normal 0.0-0.5 [facility] Comment on above: Performed By: #### C BC #### [facility] [address] [place] [address] Dr. Jovanna Oneill LYMPH # 3.5 103/ul Normal 1.2-3.8 [facility] Comment on above: Performed By: #### C BC #### [facility] [address] [place] [address] Dr. Jovanna Oneill Lymphocytes/100 WBC (Bld) 37.9 % Normal 20.5-60.0 [facility] Comment on above: Performed By: #### C BC #### [facility] [address] [place] [address] Dr. Jovanna Oneill MANUAL DIFF REQ NO Normal [facility] Comment on above: Performed By: #### C BC #### [facility] [address] [place] [address] Dr. Jovanna Oneill MCH (RBC) [Entitic mass] 31.7 pg Normal 26.7-34.0 [facility] Comment on above: Performed By: #### C BC #### [facility] [address] [place] [address] Dr. Jovanna Oneill MCHC (RBC) [Mass/Vol] 33.9 g/dL Normal 29.9-35.2 [facility] Comment on above: Performed By: #### C BC #### [facility] [address] [place] [address] Dr. Jovanna Oneill MCV (RBC) [Entitic vol] 93.6 fL Normal 81.0-99.0 [facility] Comment on above: Performed By: #### C BC #### [facility] [address] [place] [address] Dr. Jovanna Oneill MONO # 0.5 103/ul Normal 0.3-0.8 [facility] Comment on above: Performed By: #### C BC #### [facility] [address] [place] [address] Dr. Jovanna Oneill Monocytes/100 WBC (Bld) 4.8 % Normal 1.7-12.0 [facility] Comment on above: Performed By: #### C BC #### [facility] [address] [place] [address] Dr. Jovanna Oneill NEUT # 5.1 103/ul Normal 1.4-6.5 [facility] Comment on above: Performed By: #### C BC #### [facility] [address] [place] [address] Dr. Jovanna Oneill Neutrophils/100 WBC (Bld) 55.4 % Normal 43.0-75.[address] [facility] Comment on above: Performed By: #### C BC #### [facility] [address] [address] [address] Jovanna Oneill Platelet mean volume (Bld) [Entitic vol] 10.2 fL Normal 9.5-13.[address] [facility] Comment on above: Performed By: #### C BC #### [facility] [address] [address] [address] Jovanna Oneill PLT 181 103/ul Normal 150-[address] [facility] Comment on above: Performed By: #### C BC #### [facility] [address] [address] [address] Jovanna Oneill RBC 4.04 106/ul Critically low 4.20-5.40 [facility] Comment on above: Performed By: #### C BC #### [facility] [address] [address] [address] Jovanna Oneill WBC 9.3 103/ul Normal 4.0-11.[address] [facility] Comment on above: Performed By: #### C BC #### [facility] [address] [address] [address] Jovanna Oneill CRPon 10-08-2022 CRP [Mass/Vol] mg/L Normal <=1.0 [facility] Comment on above: Performed By: #### B MP, CRP ####[facility] [address] [address]Dr. Jovanna Oneill LACTATE/LACTIC ACIDon 2021 Lactate [Moles/Vol] 0.4 mmol/L Normal 0.4-1.9 [facility] Comment on above: Performed By: #### L ACT #### [facility] [address] [address] [address] Jovanna Oneill PROF CHEM 8 (BAS METB)on Anion gap [Moles/Vol] 12.6 mmol/L Normal [facility] Comment on above: Performed By: #### B MP, CRP #### [facility] [address] [address] [address] Jovanna Oneill Calcium [Mass/Vol] 8.6 mg/dL Normal 8.5-10.1 [facility] Comment on above: Performed By: #### B MP, CRP #### [facility] [address] [address] [address] Jovanna Oneill Chloride [Moles/Vol] 104 mmol/L Normal 98-107 [facility] Comment on above: Performed By: #### B MP, CRP #### [facility] [address] [address] [address] Jovanna Oneill CO2 [Moles/Vol] 26.8 mmol/L Normal 21.0-32.0 [facility] Comment on above: Performed By: #### B MP, CRP #### [facility] [address] [place] [address] Dr. Jovanna Oneill Creatinine [Mass/Vol] 0.52 mg/dL Critically low 0.55-1.02 [facility] Comment on above: Performed By: #### B MP, CRP #### [facility] [address] [place] [address] Dr. Jovanna Oneill EGFR-AF NEW ZEALANDER >60 Normal >=60 [facility] Comment on above: Performed By: #### B MP, CRP #### [facility] [address] [place] [address] Dr. Jovanna Oneill EGFR-NON AF NEW ZEALANDER >60 Normal >=60 [facility] Comment on above: Performed By: #### B MP, CRP #### [facility] [address] [place] [address] Dr. Jovanna Oneill Glucose [Mass/Vol] 93 mg/dL Normal 74-106 [facility] Comment on above: Performed By: #### B MP, CRP #### [facility] [address] [place] [address] Dr. Jovanna Oneill Potassium [Moles/Vol] 3.4 mmol/L Critically low 3.5-5.1 [facility] Comment on above: Performed By: #### B MP, CRP #### [facility] [address] [place], [place] [address] Dr. Jovanna Oneill Sodium [Moles/Vol] 140 mmol/L Normal 136-145 [facility] Comment on above: Performed By: #### B MP, CRP #### [facility] [address] [place], [place] [address] Dr. Jovanna Oneill Urea nitrogen [Mass/Vol] 11.0 mg/dL Normal 7.0-18.[address] [facility] Comment on above: Performed By: #### B MP, CRP #### [facility] [id number] Jovanna Oneill Urea nitrogen/Creatinine [Mass ratio] 21.2 mg/mg Normal [facility] Comment on above: Performed By: #### B MP, CRP #### [facility] [id number] Jovanna Oneill SED RATE [facility] 2021 SED RATE 17 mm/hr Normal <=[address] [facility] Comment on above: Performed By: #### S EDR ####[facility] [address] [place], [place] [address]XeDr. Jovanna Oneill Physician Referralon 022 Physician Referral [id number] .[id number]:127 Normal [facility] Physician Referral [id number] 1 [id number] .00CD:127 Normal [facility] PROF 14(COMP METB)on 022 Albumin [Mass/Vol] 3.4 g/dL Normal 3.4-5.0 [facility] Comment on above: Performed By: #### V ITB12 #### [facility] [id number] Jovanna Oneill Albumin/Globulin [Mass ratio] 1.1 {ratio} Normal [facility] Comment on above: Performed By: #### V ITB12 #### [facility] [address] [address] [address] Jovanna Oneill ALP [Catalytic activity/Vol] 88 U/L Normal 46-[address] [facility] Comment on above: Performed By: #### V ITB12 #### [facility] [address] [address] [address] Jovanna Oneill ALT [Catalytic activity/Vol] 11 U/L Critically low 14-[address] [facility] Comment on above: Performed By: #### V ITB12 #### [facility] [address] [address] [address] Jovanna Oneill Anion gap [Moles/Vol] 8.7 mmol/L Normal [facility] Comment on above: Performed By: #### V ITB12 #### [facility] [address] [address] [address] Jovanna Oneill AST [Catalytic activity/Vol] 13 U/L Critically low 15-[address] [facility] Comment on above: Performed By: #### V ITB12 #### [facility] [address] [place] [address] Dr. Jovanna Oneill Bilirubin [Mass/Vol] 0.6 mg/dL Normal 0.2-1.[address] [facility] Comment on above: Performed By: #### V ITB12 #### [facility] [address] [address] [address] Jovanna Oneill Calcium [Mass/Vol] 8.7 mg/dL Normal 8.5-10.1 [facility] Comment on above: Performed By: #### V ITB12 #### [facility] [address] [address] [address] Jovanna Oneill Chloride [Moles/Vol] 104 mmol/L Normal 98-[address] [facility] Comment on above: Performed By: #### V ITB12 #### [facility] [address] [address] [address] Jovanna Oneill CO2 [Moles/Vol] 31.9 mmol/L Normal 21.0-32.0 [facility] Comment on above: Performed By: #### V ITB12 #### [facility] [address] [address] [address] Jovanna Oneill Creatinine [Mass/Vol] 0.65 mg/dL Normal 0.55-1.[address] [facility] Comment on above: Performed By: #### V ITB12 #### [facility] [address] [address] [address] Jovanna Oneill EGFR-AF NEW ZEALANDER >60 Normal >=60 [facility] Comment on above: Performed By: #### V ITB12 #### [facility] [address] [address] [address] Jovanna Oneill EGFR-NON AF NEW ZEALANDER >60 Normal >=[address] [facility] Comment on above: Performed By: #### V ITB12 #### [facility] [address] [address] [address] Jovanna Oneill Globulin (S) [Mass/Vol] 3.2 g/dL Normal [facility] Comment on above: Performed By: #### V ITB12 #### [facility] [address] [place] [address] Dr. Jovanna Oneill Glucose [Mass/Vol] 91 mg/dL Normal 74-106 [facility] Comment on above: Performed By: #### V ITB12 #### [facility] [address] [address] [address] Jovanna Oneill Potassium [Moles/Vol] 3.6 mmol/L Normal 3.5-5.1 [facility] Comment on above: Performed By: #### V ITB12 #### [facility] [address] [address] [address] Jovanna Oneill Protein [Mass/Vol] 6.6 g/dL Normal 6.4-8.2 [facility] Comment on above: Performed By: #### V ITB12 #### [facility] [address] [address] [address] Jovanna Oneill Sodium [Moles/Vol] 141 mmol/L Normal 136-145 [facility] Comment on above: Performed By: #### V ITB12 #### [facility] [address] [address] [address] Jovanna Oneill Urea nitrogen [Mass/Vol] 4.0 mg/dL Critically low 7.0-18.[address] [facility] Comment on above: Performed By: #### V ITB12 #### [facility] [address] [place] [address] Dr. Jovanna Oneill Urea nitrogen/Creatinine [Mass ratio] 6.2 mg/mg Normal [facility] Comment on above: Performed By: #### V ITB12 #### [facility] [address] [place] [address] Dr. Jovanna Oneill HEPATITIS C AB CASCADE TO QU ANT PCR GENOon 09-13-2022 HCV AB <0.1 Normal 0.0-0.[address] [facility] Comment on above: Performed By: #### H EPCASC #### [facility] [address] [place] [address] Dr. Jovanna Oneill Interpretation: Comment Normal [facility] Comment on above: Result Comment: Nega tive Not infected with HCV, unless recent infection is suspected or other evidence exists to indicate HCV infection. Performed By: #### H EPCASC #### [facility] [address] [place] [address] Dr. Jovanna Oneill CBC AUTO DIFFon 09-12-2022 BASO # 0.0 103/ul Normal 0.0-0.[address] [facility] Comment on above: Performed By: #### C BC #### [facility] [address] [place] [address] Dr. Jovanna Oneill Basophils/100 WBC (Bld) 0.3 % Normal 0.2-2.0 [facility] Comment on above: Performed By: #### C BC #### [facility] [address] [place] [address] Dr. Jovanna Oneill EO # 0.1 103/ul Normal 0.0-0.7 [facility] Comment on above: Performed By: #### C BC #### [facility] [address] [place] [address] Dr. Jovanna Oneill Eosinophils/100 WBC (Bld) 0.7 % Critically low 0.9-7.[address] [facility] Comment on above: Performed By: #### C BC #### [facility] [address] [place] [address] Dr. Jovanna Oneill Erythrocyte distribution width (RBC) [Ratio] 12.3 % Normal 11.0-15.[address] [facility] Comment on above: Performed By: #### C BC #### [facility] [address] [place] [address] Dr. Jovanna Oneill Hematocrit (Bld) [Volume fraction] 40.2 % Normal 36.0-48.[address] [facility] Comment on above: Performed By: #### C BC #### [facility] [address] [place] [address] Dr. Jovanna Oneill Hemoglobin (Bld) [Mass/Vol] 13.4 g/dL Normal 12.0-16.0 [facility] Comment on above: Performed By: #### C BC #### [facility] [address] [place] [address] Dr. Jovanna Oneill IG # 0.02 10e3/ul Normal 0.00-0.[address] [facility] Comment on above: Performed By: #### C BC #### [facility] [address] [place] [address] Dr. Jovanna Oneill IG % 0.3 % Normal 0.0-0.[address] [facility] Comment on above: Performed By: #### C BC #### [facility] [address] [place] [address] Dr. Jovanna Oneill LYMPH # 2.2 103/ul Normal 1.2-3.[address] [facility] Comment on above: Performed By: #### C BC #### [facility] [address] [place] [address] Dr. Jovanna Oneill Lymphocytes/100 WBC (Bld) 31.9 % Normal 20.5-60.[address] [facility] Comment on above: Performed By: #### C BC #### [facility] [address] [place] [address] Dr. Jovanna Oneill MANUAL DIFF REQ NO Normal [facility] Comment on above: Performed By: #### C BC #### [facility] [address] [place] [address] Dr. Jovanna Oneill MCH (RBC) [Entitic mass] 31.8 pg Normal 26.7-34.[address] [facility] Comment on above: Performed By: #### C BC #### [facility] [address] [place] [address] Dr. Jovanna Oneill MCHC (RBC) [Mass/Vol] 33.3 g/dL Normal 29.9-35.[address] [facility] Comment on above: Performed By: #### C BC #### [facility] [address] [place] [address] Dr. Jovanna Oneill MCV (RBC) [Entitic vol] 95.5 fL Normal 81.0-99.[address] [facility] Comment on above: Performed By: #### C BC #### [facility] [address] [place] [address] Dr. Jovanna Oneill MONO # 0.3 103/ul Normal 0.3-0.8 [facility] Comment on above: Performed By: #### C BC #### [facility] [address] [place] [address] Dr. Jovanna Oneill Monocytes/100 WBC (Bld) 4.4 % Normal 1.7-12.[address] [facility] Comment on above: Performed By: #### C BC #### [facility] [address] [place] [address] Dr. Jovanna Oneill NEUT # 4.4 103/ul Normal 1.4-6.5 [facility] Comment on above: Performed By: #### C BC #### [facility] [address] [place] [address] Dr. Jovanna Oneill Neutrophils/100 WBC (Bld) 62.4 % Normal 43.0-75.0 [facility] Comment on above: Performed By: #### C BC #### [facility] [address] [place] [address] Dr. Jovanna Oneill Platelet mean volume (Bld) [Entitic vol] 10.9 fL Normal 9.5-13.5 [facility] Comment on above: Performed By: #### C BC #### [facility] [address] [place] [address] Dr. Jovanna Oneill PLT 179 103/ul Normal 150-[address] [facility] Comment on above: Performed By: #### C BC #### [facility] [address] [place] [address] Dr. Jovanna Oneill RBC 4.21 106/ul Normal 4.20-5.[address] [facility] Comment on above: Performed By: #### C BC #### [facility] [address] [place] [address] Dr. Jovanna Oneill WBC 7.0 103/ul Normal 4.0-11.[address] [facility] Comment on above: Performed By: #### C BC #### [facility] [address] [place] [address] Dr. Jovanna Oneill GLYCOHEMOGLOBIN A1Con 2021 ADA RECOMMENDATION SEE BELOW Normal [facility] Comment on above: Result Comment: ADA RECOMMENDED LIMIT 4.0 - 6.0 ADA THERAPEUTIC TARGET < 7.0 ACTION SUGGESTED > 7.0 Performed By: #### L ACT #### [facility] [address] [place] [address] Dr. Jovanna Oneill Glucose [Mass/Vol] 105 mg/dL Normal [facility] Comment on above: Performed By: #### L ACT #### [facility] [address] [place] [address] Dr. Jovanna Oneill HbA1c (Bld) [Mass fraction] 5.3 % Normal 4.5-6.[address] [facility] Comment on above: Performed By: #### L ACT #### [facility] [address] [place] [address] Dr. Jovanna Oneill LIPID PROFILEon 09-12-2022 CHOL-HDL RATIO NORM SEE BELOW Normal [facility] Comment on above: Result Comment: 3.3 - 4.4 LOW RISK 4.4 - 7.1 AVERAGE RISK 7.1 - 11.0 MODERATE RISK >11.0 HIGH RISK Performed By: #### C MP, LIPID #### [facility] [address] [place] [address] Dr. Jovanna Oneill Cholesterol [Mass/Vol] 135 mg/dL Normal <=[address] [facility] Comment on above: Performed By: #### C MP, LIPID #### [facility] [address] [place] [address] Dr. Jovanna Oneill Cholesterol in HDL [Mass/Vol] 35 mg/dL Critically low 40-[address] [facility] Comment on above: Performed By: #### C MP, LIPID #### [facility] [address] [place] [address] Dr. Jovanna Oneill Cholesterol in LDL [Mass/Vol] 84.8 mg/dL Normal [facility] Comment on above: Performed By: #### C MP, LIPID #### [facility] [address] [place] [address] Dr. Jovanna Oneill Cholesterol.total/Ch olesterol in HDL [Mass ratio] 3.9 {ratio} Normal [facility] Comment on above: Performed By: #### C MP, LIPID #### [facility] [address] [place] [address] Dr. Jovanna Oneill HDL NORMAL > or = 60 mg/dl - LO W CARDIOVASCULAR RISK <40 mg/dl - HIGH CARDIOVASCULAR RISK Normal [facility] Comment on above: Performed By: #### C MP, LIPID #### [facility] [address] [place] [address] Dr. Jovanna Oneill LDL CALC NORMAL SEE BELOW Normal [facility] Comment on above: Result Comment: <100 mg/dl OPTIMAL 100 - 129 mg/dl NEAR OR ABOVE OPTIMAL 130 - 159 mg/dl BORDERLINE HIGH 160 - 189 mg/dl HIGH >190 mg/dl VERY HIGH Performed By: #### C MP, LIPID #### [facility] [address] [place] [address] Dr. Jovanna Oneill Triglyceride [Mass/Vol] 76 mg/dL Normal <=150 [facility] Comment on above: Performed By: #### C MP, LIPID #### [facility] [address] [place] [address] Dr. Jovanna Oneill VLDL CALC 15.2 mg/dL Normal [facility] Comment on above: Performed By: #### C MP, LIPID #### [facility] [address] [place] [address] Dr. Jovanna Oniell PROF 14(COMP METB)on 022 Albumin [Mass/Vol] 3.5 g/dL Normal 3.4-5.0 [facility] Comment on above: Performed By: #### C MP, LIPID #### [facility] [address] [place] [address] Dr. Jovanna Oneill Albumin/Globulin [Mass ratio] 1.1 {ratio} Normal [facility] Comment on above: Performed By: #### C MP, LIPID #### [facility] [address] [place] [address] Dr. Jovanna Oneill ALP [Catalytic activity/Vol] 79 U/L Normal 46-[address] [facility] Comment on above: Performed By: #### C MP, LIPID #### [facility] [address] [place] [address] Dr. Jovanna Oneill ALT [Catalytic activity/Vol] 15 U/L Normal 14-[address] [facility] Comment on above: Performed By: #### C MP, LIPID #### [facility] [address] [place] [address] Dr. Jovanna Oneill Anion gap [Moles/Vol] 4.9 mmol/L Normal [facility] Comment on above: Performed By: #### C MP, LIPID #### [facility] [address] [place] [address] Dr. Jovanna Oneill AST [Catalytic activity/Vol] 17 U/L Normal 15-[address] [facility] Comment on above: Performed By: #### C MP, LIPID #### [facility] [address] [place] [address] Dr. Jovanna Oneill Bilirubin [Mass/Vol] 0.4 mg/dL Normal 0.2-1.[address] [facility] Comment on above: Performed By: #### C MP, LIPID #### [facility] [address] [place] [address] Dr. Jovanna Oneill Calcium [Mass/Vol] 8.7 mg/dL Normal 8.5-10.1 [facility] Comment on above: Performed By: #### C MP, LIPID #### [facility] [address] [place] [address] Dr. Jovanna Oneill Chloride [Moles/Vol] 103 mmol/L Normal 98-[address] [facility] Comment on above: Performed By: #### C MP, LIPID #### [facility] [address] [address] [address] Jovanna Oneill CO2 [Moles/Vol] 35.8 mmol/L Critically high 21.0-32.[address] [facility] Comment on above: Performed By: #### C MP, LIPID #### [facility] [address] [place] [address] Dr. Jovanna Oneill Creatinine [Mass/Vol] 0.70 mg/dL Normal 0.55-1.[address] [facility] Comment on above: Performed By: #### C MP, LIPID #### [facility] [address] [place] [address] Dr. Jovanna Oneill EGFR-AF NEW ZEALANDER >60 Normal >=60 [facility] Comment on above: Performed By: #### C MP, LIPID #### [facility] [address] [place] [address] Dr. Jovanna Oneill EGFR-NON AF NEW ZEALANDER >60 Normal >=[address] [facility] Comment on above: Performed By: #### C MP, LIPID #### [facility] [address] [place] [address] Dr. Jovanna Oneill Globulin (S) [Mass/Vol] 3.2 g/dL Normal [facility] Comment on above: Performed By: #### C MP, LIPID #### [facility] [address] [place] [address] Dr. Jovanna Oneill Glucose [Mass/Vol] 86 mg/dL Normal 74-106 [facility] Comment on above: Performed By: #### C MP, LIPID #### [facility] [address] [place] [address] Dr. Jovanna Oneill Potassium [Moles/Vol] 2.7 mmol/L Critically low 3.5-5.[address] [facility] Comment on above: Performed By: #### C MP, LIPID #### [facility] [address] [place] [address] Dr. Jovanna Oneill Protein [Mass/Vol] 6.7 g/dL Normal 6.4-8.2 [facility] Comment on above: Performed By: #### C MP, LIPID #### [facility] [address] [address] [address] Jovanna Oneill Sodium [Moles/Vol] 141 mmol/L Normal 136-145 [facility] Comment on above: Performed By: #### C MP, LIPID #### [facility] [address] [address] [address] Jovanna Oneill Urea nitrogen [Mass/Vol] 6.0 mg/dL Critically low 7.0-18.[address] [facility] Comment on above: Performed By: #### C MP, LIPID #### [facility] [address] [address] [address] Jovanna Oneill Urea nitrogen/Creatinine [Mass ratio] 8.6 mg/mg Normal [facility] Comment on above: Performed By: #### C MP, LIPID #### [facility] [address] [address] [address] Jovanna Oneill US THYROIDon 09-12-2022 US [...] by: FRANCES AGUSTIN Date: 2022-09-12 11:[address] [facility] VITAMIN B12on 09-12-2022 Cobalamin (Vitamin B12) [Mass/Vol] 280.0 pg/mL Normal 193.0-986.[address] [facility] Comment on above: Performed By: #### V ITB12 #### [facility] [address] [address] CSPINE WO CONon [...] MAN VILLALOBOS Date: 2022-08-24 18:11 Normal [facility] CT NECK ST W CONon 2 [...] WOO PAIGE Date: 2022-08-16 23:10 Normal [facility] CBC AUTO DIFFon 08-16-2022 BASO # 0.0 103/ul Normal 0.0-0.1 [facility] Comment on above: Performed By: #### C BC ####[facility] [address] [address]Dr. Rosaliareagan Oneill Basophils/100 WBC (Bld) 0.2 % Normal 0.2-2.0 [facility] Comment on above: Performed By: #### C BC ####[facility] [address] [address]Dr. Jovanna Oneill EO # 0.1 103/ul Normal 0.0-0.7 [facility] Comment on above: Performed By: #### C BC ####[facility] [address] [address]Dr. Jovanna Oneill Eosinophils/100 WBC (Bld) 0.7 % Critically low 0.9-7.0 [facility] Comment on above: Performed By: #### C BC ####[facility] [address] [place], [place] [id number]. Rosaliareagan Oneill Erythrocyte distribution width (RBC) [Ratio] 12.1 % Normal 11.0-15.0 [facility] Comment on above: Performed By: #### C BC ####[facility] [address] [address]Dr. Rosaliareagan Oneill Hematocrit (Bld) [Volume fraction] 38.8 % Normal 36.0-48.0 [facility] Comment on above: Performed By: #### C BC ####[facility] [address] [place], [place] [address]Dr. Rosaliareagan Oneill Hemoglobin (Bld) [Mass/Vol] 12.8 g/dL Normal 12.0-16.0 [facility] Comment on above: Performed By: #### C BC ####[facility] [address] [address]Dr. Jovanna Oneill IG # 0.06 10e3/ul Critically high 0.00-0.03 [facility] Comment on above: Performed By: #### C BC ####[facility] [address] [address]Dr. Jovanna Oneill IG % 0.4 % Normal 0.0-0.[address] [facility] Comment on above: Performed By: #### C BC ####[facility] [address] [address]Dr. Jovanna Nino LYMPH # 2.5 103/ul Normal 1.2-3.8 [facility] Comment on above: Performed By: #### C BC ####[facility] [address] [address]Dr. Jovanna Oneill Lymphocytes/100 WBC (Bld) 18.1 % Critically low 20.5-60.[address] [facility] Comment on above: Performed By: #### C BC ####[facility] [address] [address]Dr. Rosaliareagan Oneill MANUAL DIFF REQ NO Normal [facility] Comment on above: Performed By: #### C BC ####[facility] [address] [address]Dr. Jovanna Oneill MCH (RBC) [Entitic mass] 32.0 pg Normal 26.7-34.0 [facility] Comment on above: Performed By: #### C BC ####[facility] [address] [address]Dr. Jovanna Oneill MCHC (RBC) [Mass/Vol] 33.0 g/dL Normal 29.9-35.2 [facility] Comment on above: Performed By: #### C BC ####[facility] [address] [address]Dr. Jovanna Oneill MCV (RBC) [Entitic vol] 97.0 fL Normal 81.0-99.0 [facility] Comment on above: Performed By: #### C BC ####[facility] [address] [address]Dr. Jovanna Oneill MONO # 0.6 103/ul Normal 0.3-0.8 [facility] Comment on above: Performed By: #### C BC ####[facility] [address] [address]Dr. Jovanna Oneill Monocytes/100 WBC (Bld) 4.5 % Normal 1.7-12.0 [facility] Comment on above: Performed By: #### C BC ####[facility] [address] [address]Dr. Jovanna Oneill NEUT # 10.4 103/ul Critically high 1.4-6.5 [facility] Comment on above: Performed By: #### C BC ####[facility] [address] [address]Dr. Jovanna Oneill Neutrophils/100 WBC (Bld) 76.1 % Critically high 43.0-75.0 [facility] Comment on above: Performed By: #### C BC ####[facility] [address] [id number]. Jovanna Oneill Platelet mean volume (Bld) [Entitic vol] 10.9 fL Normal 9.5-13.5 [facility] Comment on above: Performed By: #### C BC ####[facility] [address] [address]Dr. Jovanna Oneill PLT 193 103/ul Normal 150-450 [facility] Comment on above: Performed By: #### C BC ####[facility] [address] [address]Dr. Jovanna Oneill RBC 4.00 106/ul Critically low 4.20-5.40 [facility] Comment on above: Performed By: #### C BC ####[facility] [address] [address]Dr. Jovanna Oneill WBC 13.7 103/ul Critically high 4.0-11.0 [facility] Comment on above: Performed By: #### C BC ####[facility] [address] [address]Dr. Jovanna Oneill FREE T4on 08-16-2022 Free T4 [Mass/Vol] 0.68 ng/dL Critically low 0.76-1.46 Th e [facility] Comment on above: Performed By: #### L ACT #### [facility] [address] [place] [address] Dr. Jovanna Oneill HS-CRPon 08-16-2022 HS-CRP 1.04 mg/L Normal <=3.[address] [facility] Comment on above: Performed By: #### L ACT #### [facility] [address] [place] [address] Dr. Jovanna Oneill PROF 14(COMP METB)on 022 Albumin [Mass/Vol] 3.5 g/dL Normal 3.4-5.0 [facility] Comment on above: Performed By: #### V ITB12 #### [facility] [address] [place] [address] Dr. Jovanna Oneill Albumin/Globulin [Mass ratio] 1.1 {ratio} Normal [facility] Comment on above: Performed By: #### V ITB12 #### [facility] [address] [place] [address] Dr. Jovanna Oneill ALP [Catalytic activity/Vol] 82 U/L Normal 46-[address] [facility] Comment on above: Performed By: #### V ITB12 #### [facility] [address] [place] [address] Dr. Jovanna Oneill ALT [Catalytic activity/Vol] 17 U/L Normal 14-[address] [facility] Comment on above: Performed By: #### V ITB12 #### [facility] [address] [address] [address] Jovanna Oneill Anion gap [Moles/Vol] 9.6 mmol/L Normal [facility] Comment on above: Performed By: #### V ITB12 #### [facility] [address] [place] [address] Dr. Jovanna Oneill AST [Catalytic activity/Vol] 17 U/L Normal 15-[address] [facility] Comment on above: Performed By: #### V ITB12 #### [facility] [address] [address] [address] Jovanna Oneill Bilirubin [Mass/Vol] 0.4 mg/dL Normal 0.2-1.[address] [facility] Comment on above: Performed By: #### V ITB12 #### [facility] [address] [place] [address] Dr. Jovanna Oneill Calcium [Mass/Vol] 8.7 mg/dL Normal 8.5-10.1 [facility] Comment on above: Performed By: #### V ITB12 #### [facility] [address] [place] [address] Dr. Jovanna Oneill Chloride [Moles/Vol] 105 mmol/L Normal 98-[address] [facility] Comment on above: Performed By: #### V ITB12 #### [facility] [address] [place] [address] Dr. Jovanna Oneill CO2 [Moles/Vol] 30.9 mmol/L Normal 21.0-32.0 [facility] Comment on above: Performed By: #### V ITB12 #### [facility] [address] [place] [address] Dr. Jovanna Oneill Creatinine [Mass/Vol] 0.69 mg/dL Normal 0.55-1.[address] [facility] Comment on above: Performed By: #### V ITB12 #### [facility] [address] [place] [address] Dr. Jovanna Oneill EGFR-AF NEW ZEALANDER >60 Normal >=60 [facility] Comment on above: Performed By: #### V ITB12 #### [facility] [address] [place] [address] Dr. Jovanna Oneill EGFR-NON AF NEW ZEALANDER >60 Normal >=[address] [facility] Comment on above: Performed By: #### V ITB12 #### [facility] [address] [place] [address] Dr. Jovanna Oneill Globulin (S) [Mass/Vol] 3.1 g/dL Normal [facility] Comment on above: Performed By: #### V ITB12 #### [facility] [address] [address] [address] Jovanna Oneill Glucose [Mass/Vol] 84 mg/dL Normal 74-106 [facility] Comment on above: Performed By: #### V ITB12 #### [facility] [address] [address] [address] Jovanna Oneill Potassium [Moles/Vol] 3.5 mmol/L Normal 3.5-5.[address] [facility] Comment on above: Performed By: #### V ITB12 #### [facility] [address] [place] [address] Dr. Jovanna Oneill Protein [Mass/Vol] 6.6 g/dL Normal 6.4-8.2 [facility] Comment on above: Performed By: #### V ITB12 #### [facility] [address] [place] [address] Dr. Jovanna Oneill Sodium [Moles/Vol] 142 mmol/L Normal 136-145 [facility] Comment on above: Performed By: #### V ITB12 #### [facility] [address] [place] [address] Dr. Jovanna Oneill Urea nitrogen [Mass/Vol] 7.0 mg/dL Normal 7.0-18.[address] [facility] Comment on above: Performed By: #### V ITB12 #### [facility] [address] [place] [address] Dr. Jovanna Oneill Urea nitrogen/Creatinine [Mass ratio] 10.1 mg/mg Normal [facility] Comment on above: Performed By: #### V ITB12 #### [facility] [address] [place] [address] Dr. Jovanna Oneill PROF CHEM 8 (BAS METB)on Anion gap [Moles/Vol] 8.5 mmol/L Normal [facility] Comment on above: Performed By: #### L ACT #### [facility] [address] [place] [address] Dr. Jovanna Oneill Calcium [Mass/Vol] 8.3 mg/dL Critically low 8.5-10.1 [facility] Comment on above: Performed By: #### L ACT #### [facility] [address] [address] [address] Jovanna Oneill Chloride [Moles/Vol] 105 mmol/L Normal 98-[address] [facility] Comment on above: Performed By: #### L ACT #### [facility] [address] [address] [address] Jovanna Oneill CO2 [Moles/Vol] 28.4 mmol/L Normal 21.0-32.0 [facility] Comment on above: Performed By: #### L ACT #### [facility] [address] [address] [address] Jovanna Oneill Creatinine [Mass/Vol] 0.72 mg/dL Normal 0.55-1.[address] [facility] Comment on above: Performed By: #### L ACT #### [facility] [address] [address] [address] Jovanna Oneill EGFR-AF NEW ZEALANDER >60 Normal >=60 [facility] Comment on above: Performed By: #### L ACT #### [facility] [address] [address] [address] Jovanna Oneill EGFR-NON AF NEW ZEALANDER >60 Normal >=[address] [facility] Comment on above: Performed By: #### L ACT #### [facility] [address] [address] [address] Jovanna Oneill Glucose [Mass/Vol] 242 mg/dL Critically high 74-106 [facility] Comment on above: Performed By: #### L ACT #### [facility] [address] [address] [address] Jovanna Oneill Potassium [Moles/Vol] 2.9 mmol/L Critically low 3.5-5.[address] [facility] Comment on above: Performed By: #### L ACT #### [facility] [address] [address] [address] Jovanna Oneill Sodium [Moles/Vol] 138 mmol/L Normal 136-145 [facility] Comment on above: Performed By: #### L ACT #### [facility] [address] [place], [place] [address] Dr. Jovanna Oneill Urea nitrogen [Mass/Vol] 5.0 mg/dL Critically low 7.0-18.[address] [facility] Comment on above: Performed By: #### L ACT #### [facility] [address] [place], [place] [address] Dr. Jovanna Oneill Urea nitrogen/Creatinine [Mass ratio] 6.9 mg/mg Normal [facility] Comment on above: Performed By: #### L ACT #### [facility] [address] [place], [place] [address] Dr. Jovanna Oneill TSHon 08-16-2022 TSH 4.977 uIU/mL Critically high 0.358-3.740 [facility] Comment on above: Performed By: #### V ITB12 #### [facility] [address] [address] [address] ABD/PELVIS WO CONon [...] Ayaka LEON Date: 2022-05-02 03:06 Normal [facility] DRUG SCREEN RAPID (URINE)on 05-02-2022 AMP Negative Normal NEGATIVE [facility] Comment on above: Performed By: #### L ACT #### [facility] [address] [place] [address] Dr. Jovanna Oneill BAR Negative Normal NEGATIVE [facility] Comment on above: Performed By: #### L ACT #### [facility] [address] [address] [address] Jovanna Oneill BUP Negative Normal NEGATIVE [facility] Comment on above: Performed By: #### L ACT #### [facility] [address] [place] [address] Dr. Jovanna Oneill BZO Negative Normal NEGATIVE [facility] Comment on above: Performed By: #### L ACT #### [facility] [address] [place] [address] Dr. Jovanna Oneill CARA Negative Normal NEGATIVE [facility] Comment on above: Performed By: #### L ACT #### [facility] [address] [place] [address] Dr. Jovanna Oneill CUT-OFFS SEE BELOW Normal [facility] Comment on above: Result Comment: AMP [...] ng/mL Performed By: #### L ACT #### [facility] [address] [place] [address] Dr. Jovanna Oneill DRUG CUT HEADER DRUG CLASS TEST SYSTEM CUT-OFF CONCENTRATIONS ARE FOLLOWS: Normal [facility] Comment on above: Performed By: #### L ACT #### [facility] [address] [address] [address] Jovanna Oneill mAMP Negative Normal NEGATIVE [facility] Comment on above: Performed By: #### L ACT #### [facility] [address] [address] [address] Jovanna Oneill MTD Negative Normal NEGATIVE [facility] Comment on above: Performed By: #### L ACT #### [facility] [address] [address] [address] Jovanna Oneill OPI Positive Abnormal NEGATIVE [facility] Comment on above: Performed By: #### L ACT #### [facility] [address] [place] [address] Dr. Jovanna Oneill OXY Negative Normal NEGATIVE [facility] Comment on above: Performed By: #### L ACT #### [facility] [address] [place] [address] Dr. Jovanna Oneill PCP Negative Normal NEGATIVE [facility] Comment on above: Performed By: #### L ACT #### [facility] [address] [address] [address] Jovanna Oneill PPX Negative Normal NEGATIVE [facility] Comment on above: Performed By: #### L ACT #### [facility] [address] [place] [address] Dr. Jovanna Oneill TCA Negative Normal NEGATIVE [facility] Comment on above: Performed By: #### L ACT #### [facility] [address] [place] [address] Dr. Jovanna Oneill THC Positive Abnormal NEGATIVE [facility] Comment on above: Performed By: #### L ACT #### [facility] [address] [place] [address] Dr. Jovanna Oneill ER URINE PROFILEon 2 Bilirubin Ql (U) Negative Normal NEGATIVE [facility] Comment on above: Performed By: #### L ACT #### [facility] [address] [place] [address] Dr. Jovanna Oneill Clarity (U) CLEAR Normal CLEAR [facility] Comment on above: Performed By: #### L ACT #### [facility] [address] [place] [address] Dr. Jovanna Oneill Color (U) LT. YELLOW Normal YELLOW [facility] Comment on above: Performed By: #### L ACT #### [facility] [address] [place] [address] Dr. Jovanna Oneill ERUSTACEY A micrscopic examination will be performed if indicated. Normal [facility] Comment on above: Performed By: #### L ACT #### [facility] [address] [place] [address] Dr. Jovanna Oneill Glucose Ql (U) Negative Normal NEGATIVE [facility] Comment on above: Performed By: #### L ACT #### [facility] [address] [place] [address] Dr. Jovanna Oneill Hemoglobin Ql (U) Negative Normal NEGATIVE [facility] Comment on above: Performed By: #### L ACT #### [facility] [address] [place] [address] Dr. Jovanna Oneill Ketones Ql (U) Negative Normal NEGATIVE [facility] Comment on above: Performed By: #### L ACT #### [facility] [address] [place] [address] Dr. Jovanna Oneill LEUKOCYTES Negative Normal NEGATIVE [facility] Comment on above: Performed By: #### L ACT #### [facility] [address] [place] [address] Dr. Jovanna Oneill Nitrite Ql (U) Negative Normal NEGATIVE [facility] Comment on above: Performed By: #### L ACT #### [facility] [address] [place] [address] Dr. Jovanna Oneill pH (U) 6.0 [pH] Normal 5-9 [facility] Comment on above: Performed By: #### L ACT #### [facility] [address] [place] [address] Dr. Jovanna Oneill SPEC GRAVITY <=1.005 Abnormal 1.005-<=1.025 [facility] Comment on above: Performed By: #### L ACT #### [facility] [address] [place], [place] [id number] Dr. Jovanna Oneill UA PROTEIN Negative Normal NEGATIVE/ TRACE [facility] Comment on above: Performed By: #### L ACT #### [facility] [address] [place] [address] Dr. Jovanna Oneill UR MICRO IND NOT INDICATED Normal [facility] Comment on above: Performed By: #### L ACT #### [facility] [address] [place] [address] Dr. Jovanna Oneill Urobilinogen Qn (U) 0.2 {Isabella'U}/dL Normal 0.2 - 1. [address] [facility] Comment on above: Performed By: #### L ACT #### [facility] [address] [place] [address] Dr. Jovanna Oneill CBC AUTO DIFFon 04-20-2022 BASO # 0.0 103/ul Normal 0.0-0.[address] [facility] Comment on above: Performed By: #### L ACT #### [facility] [address] [place] [address] Dr. Jovanna Oneill Basophils/100 WBC (Bld) 0.1 % Critically low 0.2-2.[address] [facility] Comment on above: Performed By: #### L ACT #### [facility] [address] [place] [address] Dr. Jovanna Oneill EO # 0.0 103/ul Normal 0.0-0.[address] [facility] Comment on above: Performed By: #### L ACT #### [facility] [address] [place] [address] Dr. Jovanna Oneill Eosinophils/100 WBC (Bld) 0.1 % Critically low 0.9-7.[address] [facility] Comment on above: Performed By: #### L ACT #### [facility] [address] [place] [address] Dr. Jovanna Oneill Erythrocyte distribution width (RBC) [Ratio] 12.6 % Normal 11.0-15.[address] [facility] Comment on above: Performed By: #### L ACT #### [facility] [address] [place] [address] Dr. Jovanna Oneill Hematocrit (Bld) [Volume fraction] 38.8 % Normal 36.0-48.[address] [facility] Comment on above: Performed By: #### L ACT #### [facility] [address] [address] [address] Jovanna Oneill Hemoglobin (Bld) [Mass/Vol] 12.6 g/dL Normal 12.0-16.[address] [facility] Comment on above: Performed By: #### L ACT #### [facility] [address] [address] [address] Jovanna Oneill IG # 0.13 10e3/ul Critically high 0.00-0.03 [facility] Comment on above: Performed By: #### L ACT #### [facility] [address] [place] [address] Dr. Jovanna Oneill IG % 1.0 % Critically high 0.0-0.5 [facility] Comment on above: Performed By: #### L ACT #### [facility] [address] [address] [address] Jovanna Oneill LYMPH # 1.1 103/ul Critically low 1.2-3.8 [facility] Comment on above: Performed By: #### L ACT #### [facility] [address] [place] [address] Dr. Jovanna Oneill Lymphocytes/100 WBC (Bld) 8.3 % Critically low 20.5-60.[address] [facility] Comment on above: Performed By: #### L ACT #### [facility] [address] [address] [address] Jovanna Oneill MANUAL DIFF REQ NO Normal [facility] Comment on above: Performed By: #### L ACT #### [facility] [address] [address] [address] Jovanna Oneill MCH (RBC) [Entitic mass] 31.0 pg Normal 26.7-34.[address] [facility] Comment on above: Performed By: #### L ACT #### [facility] [address] [place] [address] Dr. Jovanna Oneill MCHC (RBC) [Mass/Vol] 32.5 g/dL Normal 29.9-35.[address] [facility] Comment on above: Performed By: #### L ACT #### [facility] [address] [place] [address] Dr. Jovanna Oneill MCV (RBC) [Entitic vol] 95.3 fL Normal 81.0-99.[address] [facility] Comment on above: Performed By: #### L ACT #### [facility] [address] [address] [address] Jovanna Oneill MONO # 0.8 103/ul Normal 0.3-0.[address] [facility] Comment on above: Performed By: #### L ACT #### [facility] [address] [place] [address] Dr. Jovanna Oneill Monocytes/100 WBC (Bld) 5.8 % Normal 1.7-12.[address] [facility] Comment on above: Performed By: #### L ACT #### [facility] [address] [address] [address] Jovanna Oneill NEUT # 11.4 103/ul Critically high 1.4-6.5 [facility] Comment on above: Performed By: #### L ACT #### [facility] [address] [place] [address] Dr. Jovanna Oneill Neutrophils/100 WBC (Bld) 84.7 % Critically high 43.0-75.[address] [facility] Comment on above: Performed By: #### L ACT #### [facility] [address] [address] [address] Jovanna Oneill Platelet mean volume (Bld) [Entitic vol] 10.1 fL Normal 9.5-13.5 [facility] Comment on above: Performed By: #### L ACT #### [facility] [address] [place] [address] Dr. Jovanna Oneill PLT 205 103/ul Normal 150-450 [facility] Comment on above: Performed By: #### L ACT #### [facility] [address] [place] [address] Dr. Jovanna Oneill RBC 4.07 106/ul Critically low 4.20-5.40 [facility] Comment on above: Performed By: #### L ACT #### [facility] [address] [address] [address] Jovanna Oneill WBC 13.4 103/ul Critically high 4.0-11.0 [facility] Comment on above: Performed By: #### L ACT #### [facility] [address] [address] [address] Jovanna Oneill DRUG SCREEN RAPID (URINE)on 04-20-2022 AMP Negative Normal NEGATIVE [facility] Comment on above: Performed By: #### U MICRO, ERUR, DRUGRPD ####[facility] [address] [address]Dr. Jovanna Oneill BAR Negative Normal NEGATIVE [facility] Comment on above: Performed By: #### U MICRO, ERUR, DRUGRPD ####[facility] [address] [address]Dr. Jovanna Oneill BUP Negative Normal NEGATIVE [facility] Comment on above: Performed By: #### U MICRO, ERUR, DRUGRPD ####[facility] [address] [address]Dr. Jovanna Oneill BZO Negative Normal NEGATIVE [facility] Comment on above: Performed By: #### U MICRO, ERUR, DRUGRPD ####[facility] [address] [address]Dr. Jovanna Oneill CARA Negative Normal NEGATIVE [facility] Comment on above: Performed By: #### U MICRO, ERUR, DRUGRPD ####[facility] [address] [address]Dr. Jovanna Oneill CUT-OFFS SEE BELOW Normal [facility] Comment on above: Result Comment: AMP [...] Performed By: #### U MICRO, ERUR, DRUGRPD ####[facility] [address] [address]Dr. Jovanna Oneill DRUG CUT HEADER DRUG CLASS TEST SYSTEM CUT-OFF CONCENTRATIONS ARE FOLLOWS: Normal [facility] Comment on above: Performed By: #### U MICRO, ERUR, DRUGRPD ####[facility] [address] [place], [place] [address]Dr. Jovanna Oneill mAMP Negative Normal NEGATIVE [facility] Comment on above: Performed By: #### U MICRO, ERUR, DRUGRPD ####[facility] [address] [place], [place] [address]Dr. Jovanna Oneill MTD Negative Normal NEGATIVE [facility] Comment on above: Performed By: #### U MICRO, ERUR, DRUGRPD ####[facility] [address] [place], [place] [address]Dr. Jovanna Oneill OPI Positive Abnormal NEGATIVE [facility] Comment on above: Performed By: #### U MICRO, ERUR, DRUGRPD ####[facility] [address] [place], [place] [address]Dr. Jovanna Oneill OXY Negative Normal NEGATIVE [facility] Comment on above: Performed By: #### U MICRO, ERUR, DRUGRPD ####[facility] [address] [place], [place] [address]Dr. Jovanna Oneill PCP Negative Normal NEGATIVE [facility] Comment on above: Performed By: #### U MICRO, ERUR, DRUGRPD ####[facility] [address] [place], [place] [address]Dr. Jovanna Oneill PPX Negative Normal NEGATIVE [facility] Comment on above: Performed By: #### U MICRO, ERUR, DRUGRPD ####[facility] [address] [place], [place] [address]Dr. Jovanna Oneill TCA Negative Normal NEGATIVE [facility] Comment on above: Performed By: #### U MICRO, ERUR, DRUGRPD ####[facility] [address] [address]Dr. Jovanna Oneill THC Positive Abnormal NEGATIVE [facility] Comment on above: Performed By: #### U MICRO, ERUR, DRUGRPD ####[facility] [address] [address]Dr. Jovanna Oneill ER URINE PROFILEon 2 Bilirubin Ql (U) Negative Normal NEGATIVE [facility] Comment on above: Performed By: #### U MICRO, ERUR, DRUGRPD ####[facility] [address] [place], [place] [address]Dr. Jovanna Oneill Clarity (U) CLEAR Normal CLEAR [facility] Comment on above: Performed By: #### U MICRO, ERUR, DRUGRPD ####[facility] [address] [place], [place] [address]Dr. Jovanna Oneill Color (U) LT. YELLOW Normal YELLOW [facility] Comment on above: Performed By: #### U MICRO, ERUR, DRUGRPD ####[facility] [address] [place], [place] [address]Dr. Jovanna Oneill ERUAHD A micrscopic examination will be performed if indicated. Normal [facility] Comment on above: Performed By: #### U MICRO, ERUR, DRUGRPD ####[facility] [address] [place], [place] [address]Dr. Jovanna Oneill Glucose Ql (U) >1000 Abnormal NEGATIVE [facility] Comment on above: Performed By: #### U MICRO, ERUR, DRUGRPD ####[facility] [address] [place], [place] [address]Dr. Jovanna Oneill Hemoglobin Ql (U) Negative Normal NEGATIVE [facility] Comment on above: Performed By: #### U MICRO, ERUR, DRUGRPD ####[facility] [address] [place], [place] [address]Dr. Jovanna Oneill Ketones Ql (U) Negative Normal NEGATIVE [facility] Comment on above: Performed By: #### U MICRO, ERUR, DRUGRPD ####[facility] [address] [address]Dr. Jovanna Oneill LEUKOCYTES Negative Normal NEGATIVE [facility] Comment on above: Performed By: #### U MICRO, ERUR, DRUGRPD ####[facility] [address] [address]Dr. Jovanna Oneill Nitrite Ql (U) Negative Normal NEGATIVE [facility] Comment on above: Performed By: #### U MICRO, ERUR, DRUGRPD ####[facility] [address] [address]Dr. Jovanna Oneill pH (U) 6.5 [pH] Normal 5-[address] [facility] Comment on above: Performed By: #### U MICRO, ERUR, DRUGRPD ####[facility] [address] [address]Dr. Jovanna Oneill Protein (U) [Mass/Vol] 30 mg/dL Abnormal NEGATIVE/ TRACE [facility] Comment on above: Performed By: #### U MICRO, ERUR, DRUGRPD ####[facility] [address] [place], [place] [address]Dr. Jovanna Oneill SPEC GRAVITY 1.015 Normal 1.005-<=1.025 [facility] Comment on above: Performed By: #### U MICRO, ERUR, DRUGRPD ####[facility] [address] [address]Dr. Jovanna Oneill UR MICRO IND INDICATED Normal [facility] Comment on above: Performed By: #### U MICRO, ERUR, DRUGRPD ####[facility] [address] [address]Dr. Jovanna Oneill Urobilinogen Qn (U) 1.0 {Isabella'U}/dL Normal 0.2 - 1. [address] [facility] Comment on above: Performed By: #### U MICRO, ERUR, DRUGRPD ####[facility] [address] [address]Dr. Jovanna Oneill LACTATE/LACTIC ACIDon 06-09- 2022 Lactate [Moles/Vol] 1.7 mmol/L Normal 0.4-1.9 [facility] Comment on above: Performed By: #### L ACT #### [facility] [address] [place] [address] Dr. Jovanna Oneill PROF 14(COMP METB)on 022 Albumin [Mass/Vol] 3.4 g/dL Normal 3.4-5.0 [facility] Comment on above: Performed By: #### V ITB12 #### [facility] [address] [place] [address] Dr. Jovanna Oneill Albumin/Globulin [Mass ratio] 1.1 {ratio} Normal [facility] Comment on above: Performed By: #### V ITB12 #### [facility] [address] [place] [address] Dr. Jovanna Oneill ALP [Catalytic activity/Vol] 99 U/L Normal 46-[address] [facility] Comment on above: Performed By: #### V ITB12 #### [facility] [address] [place] [address] Dr. Jovanna Oneill ALT [Catalytic activity/Vol] 32 U/L Normal 14-[address] [facility] Comment on above: Performed By: #### V ITB12 #### [facility] [address] [place] [address] Dr. Jovanna Oneill Anion gap [Moles/Vol] 10.0 mmol/L Normal [facility] Comment on above: Performed By: #### V ITB12 #### [facility] [address] [place] [address] Dr. Jovanna Oneill AST [Catalytic activity/Vol] 38 U/L Critically high 15-[address] [facility] Comment on above: Performed By: #### V ITB12 #### [facility] [address] [place] [address] Dr. Jovanna Oneill Bilirubin [Mass/Vol] 0.8 mg/dL Normal 0.2-1.[address] [facility] Comment on above: Performed By: #### V ITB12 #### [facility] [address] [address] [address] Jovanna Oneill Calcium [Mass/Vol] 8.1 mg/dL Critically low 8.5-10.1 [facility] Comment on above: Performed By: #### V ITB12 #### [facility] [address] [place] [address] Dr. Jovanna Oneill Chloride [Moles/Vol] 102 mmol/L Normal 98-[address] [facility] Comment on above: Performed By: #### V ITB12 #### [facility] [address] [place] [address] Dr. Jovanna Oneill CO2 [Moles/Vol] 31.1 mmol/L Normal 21.0-32.0 [facility] Comment on above: Performed By: #### V ITB12 #### [facility] [address] [place] [address] Dr. Jovanna Oneill Creatinine [Mass/Vol] 0.78 mg/dL Normal 0.55-1.[address] [facility] Comment on above: Performed By: #### V ITB12 #### [facility] [address] [place] [address] Dr. Jovanna Oneill EGFR-AF [place] ZEALANDER >60 Normal >=60 [facility] Comment on above: Performed By: #### V ITB12 #### [facility] [address] [place] [address] Dr. Jovanna Oneill EGFR-NON AF [place] ZEALANDER >60 Normal >=[address] [facility] Comment on above: Performed By: #### V ITB12 #### [facility] [address] [place] [address] Dr. Jovanna Oneill Globulin (S) [Mass/Vol] 3.2 g/dL Normal [facility] Comment on above: Performed By: #### V ITB12 #### [facility] [address] [place] [address] Dr. Jovanna Oneill Glucose [Mass/Vol] 251 mg/dL Critically high 74-106 T [facility] Comment on above: Performed By: #### V ITB12 #### [facility] [address] [place] [address] Dr. Jovanna Oneill Potassium [Moles/Vol] 3.1 mmol/L Critically low 3.5-5.[address] [facility] Comment on above: Performed By: #### V ITB12 #### [facility] [address] [address] [address] Jovanna Oneill Protein [Mass/Vol] 6.6 g/dL Normal 6.4-8.2 [facility] Comment on above: Performed By: #### V ITB12 #### [facility] [address] [address] [address] Jovanna Oneill Sodium [Moles/Vol] 140 mmol/L Normal 136-145 [facility] Comment on above: Performed By: #### V ITB12 #### [facility] [address] [address] [address] Jovanna Oneill Urea nitrogen [Mass/Vol] 8.0 mg/dL Normal 7.0-18.[address] [facility] Comment on above: Performed By: #### V ITB12 #### [facility] [address] [address] [address] Jovanna Oneill Urea nitrogen/Creatinine [Mass ratio] 10.3 mg/mg Normal [facility] Comment on above: Performed By: #### V ITB12 #### [facility] [address] [address] [address] Jovanna Oneill TROPONIN, HIGH SENSITIVITYon 04-20-2022 HSTROP 13.8 pg/mL Normal 4.0-51.3 [facility] Comment on above: Result Comment: CUT- OFF POINTS HAVE BEEN ESTABLISHED BASED ON THE FOURTH UNIVERSAL DEFINITIONS OF MYOCARDIAL INFARCTION. THE UPPER REFERENCE LIMIT (URL) OF TROPONIN, DEFINED THE 99TH PERCENTILE OF cTnI DISTRIBUTION IN A REFERENCE POPULATION, HAS BEEN CONFIRMED THE DECISION THRESHOLD FOR MA DIAGNOSIS. Performed By: #### V ITB12 #### [facility] [address] [address] [address] Jovanna Oneill URINE MICROSCOPIC ONLYon BACTERIA TRACE Abnormal NONE SEEN [facility] Comment on above: Performed By: #### U MICRO, ERUR, DRUGRPD ####[facility] [address] [address]Dr. Jovanna Oneill Bacteria identified Cx Nom (U) NOT INDICATED Normal [facility] Comment on above: Performed By: #### U MICRO, ERUR, DRUGRPD ####[facility] [address] [address]Dr. Jovanna Oneill CAST SEEN Abnormal NONE SEEN [facility] Comment on above: Performed By: #### U MICRO, ERUR, DRUGRPD ####[facility] [facility] [id number] [place] [address]Dr. Jovanna Oneill Crystals LM Nom (Urine sed) NONE SEEN Normal NONE SEEN [facility] Comment on above: Performed By: #### U MICRO, ERUR, DRUGRPD ####[facility] [id number] [place] [address]Dr. Jovanna Oneill Epithelial cells LM Ql (Urine sed) FEW Abnormal NONE SEEN /RARE [facility] Comment on above: Performed By: #### U MICRO, ERUR, DRUGRPD ####[facility] [id number] [place] [address]Dr. Jovanna Oneill HYALINE CAST FEW Normal [facility] Comment on above: Performed By: #### U MICRO, ERUR, DRUGRPD ####[facility] [address] [place] [address]Dr. Jovanna Oneill MUCOUS NONE SEEN Normal NONE SEEN [facility] Comment on above: Performed By: #### U MICRO, ERUR, DRUGRPD ####[facility] [id number] [place] [address]Dr. Jovanna Oneill RBC 0-2 Normal 0-2 [facility] Comment on above: Performed By: #### U MICRO, ERUR, DRUGRPD ####[facility] [id number] [place] [address]Dr. Jovanna Oneill WBC 0-2 Abnormal NONE SEEN [facility] Comment on above: Performed By: #### U MICRO, ERUR, DRUGRPD ####[facility] [address] [place] [address]DrJhony Oneill XR CHEST 1 Von 04-20-2022 XR [...] by: Ayaka LEON Date: 2022-04-20 02:[address] [facility] XR ANKLE RT MIN 3 VIEWSon [...] by: KOBE HICKEY Date: 2022-03-26 09:[address] [facility] Vital Signs Date Time Vital Sign Value Performing Clinician Felicia hunt 08-13-2024 12:24-0400 Body height 154.94 cm PHYSICIAN NO [facility] 08-13-2024 12:24-0400 Body temperature 97.8 [degF] PHYSICIAN NO [facility] 08-13-2024 12:24-0400 Body weight 48 kg PHYSICIAN NO [facility] 08-13-2024 12:24-0400 Diastolic blood pressure 98 mm[Hg] PHYSICIAN NO [facility] 08-13-2024 12:24-0400 Heart rate 84 /min PHYSICIAN NO [facility] 08-13-2024 12:24-0400 Respiratory rate 18 /min PHYSICIAN NO [facility] 08-13-2024 12:24-0400 SaO2% (BldA) [Mass fraction] 98 % PHYSICIAN NO [facility] 08-13-2024 12:24-0400 Systolic blood pressure 160 mm[Hg] PHYSICIAN NO [facility] Encounters Encounter Date Encounter Type Care Provider Facility Start: 08-13-2024 End: 08-13-2024 Emergency department patient visit PHYSICIAN NO [facility] Work Phone: Start: 07-10-2024 End: 07-11-2024 ambulatory Vikram Mckenna MD Facility:[facility] Start: 06-30-2024 End: 07-02-2024 ambulatory [facility] Start: 06-09-2024 End: 06-11-2024 ambulatory [facility] Start: 05-26-2024 ambulatory [facility] Start: 05-26-2024 Encounter for other preprocedural examination [facility] Start: 05-22-2024 Non-patient / Non-visit PHYSICIAN NO [facility] Work Phone: Start: 03-23-2023 End: 03-23-2023 ambulatory ABDULKADIR OLIVAMORyladn . Facility:[facility] Start: 03-05-2023 End: 03-06-2023 ambulatory [...] Facility:[facility] Start: 10-06-2022 ambulatory Woo FALCON Facility :[facility] Start: 10-03-2022 End: 10-04-2022 ambulatory TATUM SHAMMO Facility:[facility] Start: 09-14-2022 Encounter for genera l adult medical examination without abnormal findings TATUM SHAMMO [facility] Start: 09-12-2022 End: 09-13-2022 ambulatory TATUM SHAMMO Facility:[facility] Start: 09-12-2022 End: 09-13-2022 Encounter for general adult medical examination without abnormal findings TATUM SHAMMO Facility:[facility] Start: 08-29-2022 End: 08-30-2022 ambulatory TATUM SHAMMO Facility:[facility] Start: 08-24-2022 End: 08-24-2022 ambulatory TATUM SHAMMO Facility:[facility] Start: 08-16-2022 End: 08-17-2022 ambulatory TATUM SHAMMO Facility:[facility] Start: 08-16-2022 End: 08-17-2022 ambulatory CAROL ANN ALIA Facility:[facility] Start: 06-22-2022 End: 06-22-2022 ambulatory [facility] Facility:[facility] Start: 05-02-2022 End: 05-02-2022 ambulatory [facility] Facility:[facility] Start: 04-20-2022 End: 04-20-2022 ambulatory CAROL ANN ALIA Facility:[facility] Start: 03-26-2022 End: 03-26-2022 ambulatory DARRIN ANA . Facility: Plan of Treatment Date Care Activity Detail Author Patient Education Managing acute pain at home [facility] Work Phone: Patient referral [facility] Work Phone: Payers Date Payer Category Payer Self-pay 2024 Unknown 1975 Unknown [id number] 2.16.8 [id number] 1975 Unknown [id number] 2.16.8 40.1.714035.3.579.2.727 1975 Unknown [id number] 2.16.84 0.1.484118.3.579.2.593 1975 Unknown [id number] 2.16.84 0.1.170309.3.579.2.593 1975 Unknown [id number] 2.16.84 0.1.590169.3.579.2.593 1975 Unknown [id number] 2.16.84 0.1.974135.3.579.2.593 1973 Unknown [id number] 2.16.84 0.1.708570.3.579.2.593 1973 Unknown [id number] 2.16.84 0.1.259486.3.579.2.593 1973 Unknown [id number] 2.16.84 0.1.879743.3.579.2.593 1973 Unknown [id number] 2.16.84 0.1.984240.3.579.2.593 1973 Unknown [id number] 2.16.84 0.1.851249.3.579.2.593 1973 Unknown [id number] 2.16.84 0.1.032583.3.579.2.593 1973 Unknown [id number] 2.16.84 0.1.663763.3.579.2.593 1973 Unknown [id number] 2.16.84 0.1.192184.3.579.2.593 1973 Unknown [id number] 2.16.84 0.1.097004.3.579.2.593 1973 Unknown [id number] 2.16.84 0.1.540596.3.579.2.593 1973 Unknown [id number] 2.16.84 0.1.184177.3.579.2.593 1973 Unknown [id number] 2.16.84 0.1.560802.3.579.2.593 1973 Unknown [id number] 2.16.84 0.1.490440.3.579.2.593 1973 Unknown [id number] 2.16.84 0.1.909003.3.579.2.593 1973 Unknown [id number] 2.16.84 0.1.015729.3.579.2.593 1973 Unknown [id number] 2.16.84 0.1.344350.3.579.2.593 1973 Unknown [id number] 2.16.84 0.1.506088.3.579.2.593 1973 Unknown [id number] 2.16.84 0.1.269984.3.579.2.593 1973 Unknown [id number] 2.16.8 40.1.011459.3.579.2.174 1973 Unknown [id number] 2.16.8 40.1.072457.3.579.2.174 1973 Unknown [id number] 2.16.8 40.1.090343.3.579.2.174 1973 Unknown [id number] 2.16.8 40.1.906910.3.579.2.174 1973 Unknown [id number] 2.16.8 40.1.112126.3.579.2.174 1973 Unknown [id number] 2.16. 840.1.045978.3.579.2.196 1961 Self-pay [id number] 1959 Unknown [id number] 1961 Unknown [id number] Unknown [id number] 2.16.8 40.1.980481.3.579.2.531 Social History Date Type Detail Facility Start: 08-13-2024 [facility] Start: 1975 Sex Assigned At Female F [facility] Discharge summary note 07-11-2024 Note Date & [...] less than 30 minutes Medications New Medications Anzode #52, [address] [id number], (352) 150 - 2012 cefdinir (cefdinir 300 mg oral capsule) 1 [...] by Vikram Mckenna MD 07/11/24 11:37 EDT [facility] History and physical note 07-10-2024 Note Date [...] this time too much in pain --will mitochondrial disorders counselor in am discussion pain control , [...] hydrALAZINE, 10 mg= 0.5 mL, IV Push, [id number] Times, PRN LR 1,000 mL, 1000 mL, [...] by Vikram Mckenna MD 07/10/24 19:12 EDT [facility] Clinical Note 07-10-2024 Note Date & Type [...] right index finger, excision: Consistent with osteomyelitis. [id number] [id number] [id number] M-[id number] M-[id number] M-[id number] Raul Davidson MD PhD (Electronically signed by) Verified: 07/16/24 13:53 [facility] Comment on above: Performed By: #### [facility] #### [facility] [address] [place] [address] [facility] [address] [place] [address] Clinical Note 03-05-2023 Note Date & Type [...] by: FRANCES AGUSTIN Date: 2023-03-05 11:36 [facility] Clinical Note 08-30-2022 Note Date & [...] by: FRANCES AGUSTIN Date: 2022-08-30 10:20 [facility] Clinical Note 08-30-2022 Note Date & [...] by: FRANCES AGUSTIN Date: 2022-08-30 10:20 [facility] Clinical Note 06-22-2022 Note Date & [...] authenticated by: RJ YANEZ Date: 2022-06-22 07:[address] [facility] Clinical Note 06-22-2022 Note Date & [...] authenticated by: RJ YANEZ Date: 2022-06-22 07:[address] [facility] Evaluation note Note Date & Type Note Facility Evaluation note No assessment information availa ble [facility] Work Phone: Hospital Discharge instructions Note Date & Type Note Facility Hospital Discharge instructions Additional Instructions Follow-up with your surgeon for further evaluation or pain medication. [facility] Work Phone: Summary Purpose Family History No [...] and content) DATE CREATED AUTHOR [facility]/24/2022 [facility] DATE CREATED AUTHOR AUTHOR'S ORGANIZ ATION 03/24/2023 [facility] DATE CREATED AUTHOR AUTHOR'S ORGANIZ ATION 07/04/2024 Astrid ruiz DATE CREATED AUTHOR AUTHOR'S ORGANIZ ATION 08/28/2024 [facility] DATE CREATED AUTHOR AUTHOR'S ORGANIZ ATION 11/07/2024 [facility] Care Teams (unrecognized sec tion and content) [...] BE BASED ON THE PRIMARY CLINICAL RECORDS. [employer] provides no warranty or guarantee of the accuracy or completeness of information in this document.
[2024-12-05 21:19] VITALS: BP 170/90
--- NOTE | 2024-12-05 21:21 | ED.GENADUL1 ---
HPI HPI - General Adult General Chief complaint: Abdominal Pain Stated complaint: left side pain Time Seen by Provider: 12/05/24 21:21 Source: patient Mode of arrival: Wheelchair Limitations: no limitations History of Present Illness HPI narrative: Patient is a 49-year-old female who is presenting to the ER with chief complaint of 3 days of continuous left lower back and left flank pain. Patient had no nausea or vomiting, patient has had continuous pain. Patient does not have her gallbladder, appendix, uterus, ovaries. Patient has not passed a kidney stone in the past. Patient was aware that she did have a small kidney stone in her kidney from a CAT scan years ago. After chart review, patient did have a CT of the abdomen pelvis in October 2023 that did show a small punctate stone in the left kidney. Patient has had no urinary frequency urgency or burning. Patient did have some signs of constipation the last several days, she did have a normal stool today. No fever or chills. No heavy lifting twisting or turning, no trauma. No falls. All systems are negative except as noted/marked. All systems reviewed and otherwise negative. Nurses note and vital signs reviewed and patient is not hypoxic. General: The patient appears well and in no apparent distress. Patient is resting comfortably on cart. Patient is not toxic, lethargic, or listless Skin: Warm, dry, no pallor noted. There is no rash noted. No petechiae, purpura. Head: Normocephalic, atraumatic Eye: Normal conjunctiva, no drainage, EOMI. PERRL Ears, Nose, Mouth, and Throat: oral mucosa is moist. Nares patent. Mouth without vesicles. Cardiovascular: Regular Rate and Rhythm, no murmur, gallop, rub Respiratory: Patient is in no distress, no accessory muscle use, lungs are clear to auscultation, no wheezing, rales or rhonchi Back: Patient has moderate to severe left paralumbar soft tissue and left CVA tenderness to palpation, moderate left flank tenderness to palpation, no left lower quadrant or left upper quadrant tenderness to palpation. No suprapubic tenderness to palpation. No peritoneal signs, otherwise the rest of her abdomen is non-tender, no right CVA tenderness to percussion. No CT LS midline pain GI: no tenderness to palpation, no masses appreciated. No rebound, guarding, or rigidity noted. No distention Musculoskeletal: Patient has full range of motion of all of the extremities, no motor, sensory, or focal neurological deficits Neurological: A&O x4, normal speech Psychiatric: Cooperative Related Data Previous Rx's ?Medication ?Instructions ?Recorded ondansetron 4 mg disintegrating 4 mg PO Q4H PRN nausea and 12/05/24 tablet vomiting 3 days #6 tabs Allergies Allergy/AdvReac Type Severity Reaction Status Date / Time No Known Drug Allergies Allergy Verified 12/05/24 21:18 Opioid HPI Opioid Management Most Recent Opioid Data: Last Pain Scale 8 12/05/24 21:35 12/05/24 [facility] Medical History (Updated 12/05/24 @ 23:25 by Rashad Blair MD) Full dentures ?Z97.2 - Presence of dental prosthetic device (complete) (partial) (ICD-10) ?K08.109 - Complete loss of teeth, unspecified cause, unspecified class (ICD-10) Neck pain ?M54.2 - Cervicalgia (ICD-10) Depression ?F32.A - Depression, unspecified (ICD-10) Anxiety ?F41.9 - Anxiety disorder, unspecified (ICD-10) Asthma ?J45.909 - Unspecified asthma, uncomplicated (ICD-10) Chronic obstructive pulmonary disease ?J44.9 - Chronic obstructive pulmonary disease, unspecified (ICD-10) Migraine ?G43.909 - Migraine, unspecified, not intractable, without status migrainosus (ICD-10) Kidney stones ?N20.0 - Calculus of kidney (ICD-10) GERD (gastroesophageal reflux disease) ?K21.9 - Gastro-esophageal reflux disease without esophagitis (ICD-10) Hypothyroidism ?E03.9 - Hypothyroidism, unspecified (ICD-10) Hiatal hernia ?K44.9 - Diaphragmatic hernia without obstruction or gangrene (ICD-10) Colon polyp ?K63.5 - Polyp of colon (ICD-10) Ovarian cyst ?N83.209 - Unspecified ovarian cyst, unspecified side (ICD-10) Endometriosis ?N80.9 - Endometriosis, unspecified (ICD-10) Hypertension ?I10 - Essential (primary) hypertension (ICD-10) Back pain ?M54.9 - Dorsalgia, unspecified (ICD-10) Chronic neck pain ?M54.2 - Cervicalgia (ICD-10) ?G89.29 - Other chronic pain (ICD-10) Open fracture of right hand ?S62.91XB - Unspecified fracture of right wrist and hand, initial encounter for open fracture (ICD-10) Anxiety and depression ?F41.9 - Anxiety disorder, unspecified (ICD-10) ?F32.A - Depression, unspecified (ICD-10) HTN (hypertension) ?I10 - Essential (primary) hypertension (ICD-10) Bulging of cervical intervertebral disc ?M50.30 - Other cervical disc degeneration, unspecified cervical region (ICD-10) Osteoporosis ?M81.0 - Age-related osteoporosis without current pathological fracture (ICD-10) Surgical History (Updated 05/28/24 @ 13:04 by Monique Benson NP) History of tonsillectomy ?Z90.89 - Acquired absence of other organs (ICD-10) History of colonoscopy ?Z98.890 - Other specified postprocedural states (ICD-10) History of esophagogastroduodenoscopy (EGD) ?Z98.890 - Other specified postprocedural states (ICD-10) History of laparoscopy ?Z98.890 - Other specified postprocedural states (ICD-10) History of appendectomy ?Z90.49 - Acquired absence of other specified parts of digestive tract (ICD-10) History of hysterectomy ?Z90.710 - Acquired absence of both cervix and uterus (ICD-10) History of cholecystectomy ?Z90.49 - Acquired absence of other specified parts of digestive tract (ICD-10) Family History (Updated 05/28/24 @ 13:04 by Monique Benson NP) Other Brain tumor Cancer Family history of aneurysm Family history of diabetes mellitus Family history of hypertension Social History (Updated 05/28/24 @ 12:57 by Monique Benson NP) Within the past year, how often did you have a drink containing alcohol: never Score interpretation: A score less than 3 is consistent with normal alcohol consumption. Smoking status: Current every day smoker What tobacco products do you use: cigarettes Cigarettes per day: 30 Years smoked: 36 Smoking pack-years: 54.00 Non-prescribed substance use: cannabis (any form) Highest level of school completed/degree received: 11th grade Little interest or pleasure in doing things: not at all Feeling down, depressed, or hopeless: not at all Exam Constitutional Vital Signs, click to edit/add: Last Vital Signs Temp 98.7 F 12/05/24 21:14 Pulse 69 12/05/24 21:14 Resp 18 12/05/24 21:14 BP 133/75 12/05/24 22:43 Pulse Ox 98 12/05/24 21:14 O2 Del Method Room Air 12/05/24 21:14 Course Vital Signs Vital signs: Vital Signs Temperature 98.7 F 12/05/24 21:14 Pulse Rate 69 12/05/24 21:14 Respiratory Rate 18 12/05/24 21:14 Blood Pressure 176/120 H 12/05/24 21:14 Pulse Oximetry 98 12/05/24 21:14 Oxygen Delivery Method Room Air 12/05/24 21:14 Temperature 98.7 F 12/05/24 21:14 Pulse Rate 69 12/05/24 21:14 Respiratory Rate 18 12/05/24 21:14 Blood Pressure 133/75 12/05/24 22:43 Pulse Oximetry 98 12/05/24 21:14 Oxygen Delivery Method Room Air 12/05/24 21:14 Medical Decision Making MDM Narrative Medical decision making narrative: [id number] a copy of patient's CT report was given to her. We discussed patient's reading of potential recommendation of MRCP or ERCP with dilation of common bile duct. Patient had her gallbladder removed in -. Patient has never had issues of the right upper quadrant since. Education on enteritis was done. She has no signs of kidney stone. Patient stated that she has had a hard time with bowel movements the last several days. Patient was recommended to use MiraLAX or magnesium citrate if needed. Education was done on ice and stretching as well and not using heat. Patient needs to find a PCP. Patient uses the emergency room for her medical needs, she has not had a PCP in a long time. Patient was recommended to follow-up with GI physician as well. Patient was recommended follow-up with GI physicians from [facility]. Patient was given Tylenol and Bentyl at discharge. Patient has a nonsurgical soft abdomen, no guarding, rebound, rigidity, benign abdomen at discharge on reexamination Lab Data Lab results reviewed: Yes I reviewed the patient's lab results Labs: Lab Results 12/05/24 12/05/24 Range/Units 21:30 21:33 WBC 8.4 (4.0-11.0) 10^3/uL RBC 4.11 L (4.20-5.40) 10^6/uL Hgb 13.2 (12.0-16.0) g/dL Hct 39.8 (36.0-48.0) % MCV 96.8 (81.0-99.0) fL MCH 32.1 (26.7-34.0) pg MCHC 33.2 (29.9-35.2) g/dL RDW 12.1 (11.0-15.0) % Plt Count 181 (150-450) 10^3/uL MPV 11.3 (9.5-13.5) fL Neut % (Auto) 57.3 (43.0-75.0) % Lymph % (Auto) 36.6 (20.5-60.0) % [place] % (Auto) 5.0 (1.7-12.0) % Eos % (Auto) 0.6 L (0.9-7.0) % Baso % (Auto) 0.4 (0.2-2.0) % Neut # (Auto) 4.8 (1.4-6.5) 10^3/uL Lymph # (Auto) 3.1 (1.2-3.8) 10^3/uL [place] # (Auto) 0.4 (0.3-0.8) 10^3/uL Eos # (Auto) 0.1 (0.0-0.7) 10^3/uL Baso # (Auto) 0.0 (0.0-0.1) 10^3/uL Abs Immat Gran (auto) 0.01 (0.00-0.03) 10^3/uL Imm/Tot Granulo (auto) 0.1 (0.0-0.5) % Sodium 139 (136-145) mmol/L Potassium 3.2 L (3.5-5.1) mmol/L Chloride 103 (98-107) mmol/L Carbon Dioxide 29.1 (21.0-32.0) mmol/L Anion Gap 10.1 BUN 7.0 (7.0-18.0) mg/dL Creatinine 0.76 (0.55-1.02) mg/dL Est GFR ( Amer) >60 (>=60 mL/min/1.73m^2) Est GFR (Non-Af Amer) >60 (>=60 mL/min/1.73m^2) BUN/Creatinine Ratio 9.2 Glucose 144 H (74-106) mg/dL Calcium 8.4 L (8.5-10.1) mg/dL Total Bilirubin 0.6 (0.2-1.0) mg/dL AST 24 (15-37) U/L ALT 23 (14-59) U/L Alkaline Phosphatase 96 (46-116) U/L Total Protein 6.5 (6.4-8.2) g/dL Albumin 3.4 (3.4-5.0) g/dL Globulin 3.1 g/dL Albumin/Globulin Ratio 1.1 Lipase 80.0 H (16.0-77.0) U/L Urine Color Lt. yellow (YELLOW) Urine Clarity Clear (CLEAR) Urine pH 6.0 (5.0-9.0) Ur Specific [employer] 1.010 (1.005-1.025) Urine Protein Negative (NEG/TRACE) mg/dL Urine Glucose (UA) Negative (NEGATIVE) mg/dL Urine Ketones Negative (NEGATIVE) mg/dL Urine Occult Blood Negative (NEGATIVE) Urine Nitrite Negative (NEGATIVE) Urine Bilirubin Negative (NEGATIVE) Urine Urobilinogen 0.2 (0.2-1.0) EU/dL Ur Leukocyte Esterase Negative (NEGATIVE) Urine RBC None seen (0-2) #/HPF Urine WBC 2-5 A (NONE SEEN) #/HPF Ur Squamous Epith Cells Few A (NONE/RARE) #/LPF Urine Crystals None seen (None Seen) #/HPF Urine Bacteria Trace A (NONE SEEN) #/HPF Urine Casts None seen (NONE SEEN) #/LPF Urine Mucus None seen (NONE SEEN) Imaging Data CT scan - pelvis: Radiologist's impression: ITS Impressions Abdomen/Pelvis CT 12/05/24 21:29 IMPRESSION: 1. No acute or suspicious findings to account for patient's symptoms. 2. Cholecystectomy with abnormal dilation the common bile duct, 16 mm. No appreciable stones, mass, pancreatic mass, or duodenal cause. Consider MRCP or ERCP follow-up. 3. Multiple small air-fluid levels throughout the small and large bowel without obstruction or appreciable inflammatory changes. Possible mild enteritis. Electronically authenticated by: FRANCES AGUSTIN Date: 12/05/2024 23:17 Discharge Plan Discharge Chief Complaint: Abdominal Pain Clinical Impression: Left lumbar pain, Renal colic on left side Patient Disposition: Home, Self-Care Time of Disposition Decision: 23:24 Condition: Fair Prescriptions / Home Meds: New ondansetron 4 mg tablet,disintegrating 4 mg PO Q4H PRN (Reason: nausea and vomiting) 3 Days Qty: 6 0RF Print Language: Arabic Instructions: Renal Colic (ED), Acute Low Back Pain (ED), Enteritis (ED) Additional Instructions: A copy of your CT report has been given to. It was noted that after your cholecystectomy, there is abnormal dilatation to the common bile duct, 16 mm. No obvious obstruction. Recommendations of MRCP or ERCP to follow-up with PCP or GI physician. Referral has been given. There is GI physicians out of [facility] in [place] who you can follow-up with, including Dr. Arias. There is suggestion of possible mild enteritis. Increase fluids, use Zofran as needed for nausea, Bentyl as needed for abdominal cramping. Ice and stretching, do not use heat to the left lower back. Ice 20 minutes on, 20 minutes off. You need to follow-up and establish PCP. Referrals: Valeriano García MD [Physician] - 1 week PhysicianNon-, [Primary Care Provider] - 1 week
--- NOTE | 2024-12-05 21:29 | CT_ITS ---
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 Dose reduction techniques were achieved by using automated exposure control and/or adjustment of mA and/or kV according to patient size and/or use of iterative reconstruction technique. FINDINGS: LUNG BASES: No visible pulmonary or pleural disease. LIVER: Stable small posterior lateral right hepatic lobe cyst. No enlargement, atrophy, suspicious density, or significant focal lesion. BILIARY: Cholecystectomy. Abnormal dilation of the common bile duct, 1.6 cm; no appreciable stone or mass. PANCREAS: No lesion, fluid collection, or abnormal duct dilatation. SPLEEN: No enlargement or focal lesion. ADRENALS: No mass or enlargement. KIDNEYS: No mass, obstruction, or calcification. BOWEL/MESENTERY: Multiple small air-fluid levels throughout the small and large bowel without abnormal dilation or obstruction. No free air or free fluid. No visible mass, obstruction, or bowel wall thickening. AORTA/VASCULAR: No aneurysm or dissection. RETROPERITONEUM: No mass or adenopathy. LYMPH NODES: No adenopathy. URINARY BLADDER: No visible focal wall thickening, lesion, or calculus. PELVIC ORGANS: No visible mass. Pelvic organs appropriate for patient age. ABDOMINAL WALL: No mass or hernia. BONES: No bony lesion or fracture. OTHER: Negative. CT/CT abdomen pelvis w con IMPRESSION: 1. No acute or suspicious findings to account for patient's symptoms. 2. Cholecystectomy with abnormal dilation the common bile duct, 16 mm. No appreciable stones, mass, pancreatic mass, or duodenal cause. Consider MRCP or ERCP follow-up. 3. Multiple small air-fluid levels throughout the small and large bowel without obstruction or appreciable inflammatory changes. Possible mild enteritis. Electronically authenticated by: FRANCES AGUSTIN Date: 12/05/2024 23:17
[2024-12-05] MEDS: ONDANSETRON PF 4 MG/2 ML VIAL IV (21:35)
[2024-12-05] MEDS: KETOROLAC TROMETHAMINE 30 MG/ML VIAL 15 MG IVP (21:35)
[2024-12-05] MEDS: MORPHINE SULFATE 4 MG/ML VIAL IV (21:35)
[2024-12-05] MEDS: 0.9 % SODIUM CHLORIDE 1,000 ML 1000 ML IV (21:36)
[2024-12-05 21:50] LABS: Basophils Percent Auto 0.4 % (0.2-2.0); Eosinophils Absolute Auto 0.1 10^3/uL (0.0-0.7); Eosinophils Percent Auto 0.6 % (0.9-7.0); Hematocrit 39.8 % (36.0-48.0); Hemoglobin 13.2 g/dL (12.0-16.0); Immature Granulocytes Abs Auto 0.01 10^3/uL (0.00-0.03); Immature Granulocytes Pct Auto 0.1 % (0.0-0.5); Lymphocytes Absolute Auto 3.1 10^3/uL (1.2-3.8); Lymphocytes Percent Auto 36.6 % (20.5-60.0); Mean Corpuscular HGB Conc 33.2 g/dL (29.9-35.2); Mean Corpuscular Hemoglobin 32.1 pg (26.7-34.0); Mean Corpuscular Volume 96.8 fL (81.0-99.0); Mean Platelet Volume 11.3 fL (9.5-13.5); Monocytes Absolute Auto 0.4 10^3/uL (0.3-0.8); Neutrophils Absolute Auto 4.8 10^3/uL (1.4-6.5); Neutrophils Percent Auto 57.3 % (43.0-75.0); Platelet Count 181 10^3/uL (150-450); Red Blood Count 4.11 10^6/uL (4.20-5.40); Red Cell Distribution Width 12.1 % (11.0-15.0); White Blood Count 8.4 10^3/uL (4.0-11.0)
[2024-12-05 21:53] LABS: Bilirubin Urine NEGATIVE (NEGATIVE); Blood Urine NEGATIVE (NEGATIVE); Clarity Urine CLEAR (CLEAR); Color Urine LT. YELLOW (YELLOW); Glucose Urine UA NEGATIVE (NEGATIVE); Ketones Urine NEGATIVE (NEGATIVE); Leukocyte Esterase Urine NEGATIVE (NEGATIVE); Nitrite Urine NEGATIVE (NEGATIVE); Protein Urine NEGATIVE (NEG/TRACE); Urobilinogen Urine 0.2 EU/dL (0.2-1.0)
[2024-12-05 22:01] LABS: Bacteria Urine TRACE #/HPF (NONE SEEN); Mucus Urine NONE SEEN (NONE SEEN); RBC Urine NONE SEEN #/HPF (0-2); Squamous Epithelial Cell Urine FEW #/LPF (NONE/RARE)
[2024-12-05 22:02] LABS: Cast Seen? NONE SEEN #/LPF (NONE SEEN); Crystals Seen? None Seen #/HPF (None Seen)
[2024-12-05 22:11] LABS: Alanine Aminotransferase 23 U/L (14-59); Albumin Globulin Ratio 1.1; Albumin Level 3.4 g/dL (3.4-5.0); Alkaline Phosphatase 96 U/L (46-116); Anion Gap 10.1; Aspartate Amino Transferase 24 U/L (15-37); BUN Creatinine Ratio 9.2; Bilirubin Total 0.6 mg/dL (0.2-1.0); Calcium 8.4 mg/dL (8.5-10.1); Carbon Dioxide 29.1 mmol/L (21.0-32.0); Chloride 103 mmol/L (98-107); Estimated GFR (African America >60 (>=60 mL/min/1.73m^2); Estimated GFR (Non-African Ame >60 (>=60 mL/min/1.73m^2); Globulin 3.1 g/dL; Glucose 144 mg/dL (74-106); Potassium 3.2 mmol/L (3.5-5.1); Sodium 139 mmol/L (136-145); Total Protein 6.5 g/dL (6.4-8.2)
[2024-12-05 22:43] VITALS: BP 133/75
[2024-12-05] MEDS: POTASSIUM BICARBONATE/CIT 25 MEQ TABLET EFF 50 MEQ PO (23:31)
[2024-12-05] MEDS: ACETAMINOPHEN 325 MG TABLET 650 MG PO (23:31)
[2024-12-05] MEDS: DICYCLOMINE HCL 20 MG/2 ML VIAL IM (23:31)
[2024-12-05 23:39] VITALS: BP 130/75; PULSE 88; O2SAT 97
== END 2024-12-05 23:39 | disposition home or self-care (01) ==
PROVIDERS: Emergency Provider Emergency Medicine
DX: M54.50 Low back pain, unspecified (principal); N23 Unspecified renal colic; Z90.49 Acquired absence of other specified parts of digestive tract; Z90.710 Acquired absence of both cervix and uterus; Z87.442 Personal history of urinary calculi; F17.210 Nicotine dependence, cigarettes, uncomplicated
CPT/HCPCS: 36415; 74177; 80053; 81001; 83690; 85025; 96372; 96374; 96375; 99285; J0500; J1885; J2270; J2405; Q9967

== ENCOUNTER 2025-01-01 18:06 | Emergency (ER) | payer OTHER, SELFPAY ==
[2025-01-01 18:14] VITALS: BP 161/98; PULSE 73; O2SAT 98; BMI 18.9
--- OUTSIDE RECORDS SUMMARY | 2025-01-01 18:14 | XMS_ITS | CCD ---
Author Organization [facility] Team Providers Care Nib Finisher Name Role Phone Woo FALCON Attending Unavailable [...] ANA ., DARRIN Admitting Unavailable [facility] Primary Care Unavailable KOBE HICKEY Consulting Unavailable MARKER ., DR MAX Attending Unavailable MARKER ., DR MAX Admitting Unavailable MARKER ., DR MAX Consulting Unavailable [facility] Primary Care Unavailable LEON, JIMMY Consulting Unavailable SHAMMO, TATUM Primary Care Unavailable SAI, VAUGHN Admitting Unavailable SAI, VAUGHN Attending Unavailable SAI, VAUGHN Consulting Unavailable WOO PAIGE Consulting Unavailable SHAMMO, TATUM Consulting Unavailable [facility] Primary Care Unavailable SAI, VAUGHN Admitting Unavailable SAI, VAUGHN Attending Unavailable BEAU, DR RJ Foster Consulting Unavailable HAY ., DR BIRD Consulting Unavailable SAI, VAUGHN Consulting Unavailable ALIA, CAROL ANN Admitting Unavailable ALIA, CAROL ANN Attending Unavailable [facility] Primary Care Unavailable SHAMMO, TATUM Admitting Unavailable SHAMMO, TATUM Attending Unavailable SHAMMO, TATUM Primary Care Unavailable SHAMMO, TATUM Consulting Unavailable [facility] Primary Care Unavailable LUIS EDUARDO, DR LAYA [...] Provider Unava ilable LEXI Griggs Emergency Provider Zackery Griggs Attending Unavailable Zackery [...] Medication Allergies] Propensity to adverse reactions (disorder) [facility] Repository Problems Active Problems Problem Classification Problem [...] 01-15-2023 Chronic Other aftercare (1 source) 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 [facility] Comment on above: Performed By: #### A NAC #### [place] [address] C NOE - ---- Final No anaerobic growth after 72 hrs. [facility] Comment on above: Performed By: #### S BS #### [facility] (DEFAULT) [address] [place], [place] [id number] C NOE - ---- Final No anaerobic growth after 72 hrs. [facility] Comment on above: Performed By: #### A NAC #### [address] [address] C NOE - ---- Final No anaerobic growth after 72 hrs. [facility] Comment on above: Performed By: #### S BS #### [facility] (DEFAULT) [address] [place] [address] [address] C Sterile BSon 07-12-2024 C Sterile BS [...] <=0.25 V Trimethoprim/Sulfa S <=20 V Normal [facility] Comment on above: Performed By: #### S BSC #### [facility] (DEFAULT) [address] [place] [address] [facility] [address] [place] [address] C Sterile BS - ---- Final Light [...] <=10 V Vancomycin S 1 V Normal [facility] Comment on above: Performed By: #### S [facility] #### [facility] (DEFAULT) [address] [place] [address] [facility] [address] [place] [address] C Sterile BS - ---- Final Moderate [...] <=10 V Vancomycin S 1 V Normal [facility] Comment on above: Performed By: #### S [facility] #### [facility] (DEFAULT) [address] [place] [address] [facility] [address] [place] [address], [place] [address] C Sterile BS - ---- Final Moderate [...] <=10 V Vancomycin S 1 V Normal [facility] Comment on above: Performed By: #### S BSC #### [facility] (DEFAULT) [address] [place] [address] [facility] [address] [place] [address] .eGFRon 07-11-2024 GFR/1.73 sq M.predicted MDRD (S/P/Bld) [Vol rate/Area] mL/min/{1.73_m2} Normal >=60 [facility] Comment on above: Result Comment: [facility] Laboratories have implemented the eGFR calculation [...] years Performed By: #### A NAC #### [facility] [address] [place] [address] CBC w/ Diffon 07-11-2024 Erythrocyte distribution width (RBC) [Ratio] 13.4 % Normal 11.6-14.8 [facility] Comment on above: Performed By: #### S BSC #### [facility] (DEFAULT) [address] [place] [address] [facility] [address] [place] [address] Hematocrit (Bld) [Volume fraction] 37.5 % Normal 36.0-46.0 [facility] Comment on above: Performed By: #### S BSC #### [facility] (DEFAULT) [address] [place] [address] [facility] [address] [place] [address] Hemoglobin (Bld) [Mass/Vol] 12.6 g/dL Normal 12.0-16.0 [facility] Comment on above: Performed By: #### S BSC #### [facility] (DEFAULT) [address] [place] [address] [facility] [address] [place] [address] MCH (RBC) [Entitic mass] 32.5 pg Normal 27.0-35.0 [facility] Comment on above: Performed By: #### S BSC #### [facility] (DEFAULT) [address] [place] [address] [facility] [address] [place] [address] MCHC 33.7 % Normal 31.0-37.0 [facility] Comment on above: Performed By: #### S BSC #### [facility] (DEFAULT) [address] [place] [address] [facility] [address] [place] [address] MCV (RBC) [Entitic vol] 96.6 fL Normal 80.0-100.0 [facility] Comment on above: Performed By: #### S BSC #### [facility] (DEFAULT) [address] [place] [address] [facility] [address] [place] [address] Platelet 172 x10*3/mcL Normal 150-450 [facility] Comment on above: Performed By: #### S BSC #### [facility] (DEFAULT) [address] [place] [address] [facility] [address] [place] [address] Platelet mean volume (Bld) [Entitic vol] 9.3 fL Normal 6.7-10.6 [facility] Comment on above: Performed By: #### S BSC #### [facility] (DEFAULT) [address] [place] [address] [facility] [address] [place] [address] RBC 3.88 x10*6/mcL Normal 3.80-5.20 [facility] Comment on above: Performed By: #### S BSC #### [facility] (DEFAULT) [address] [place] [address] [facility] [address] [place] [address] WBC 8.8 x10*3/mcL Normal 4.5-11.0 [facility] Comment on above: Performed By: #### S BSC #### [facility] (DEFAULT) [address] [place] [address] [facility] [address] [place] [address] CMPon 07-11-2024 Albumin [Mass/Vol] 3.5 g/dL Normal 3.2-4.9 [facility] Comment on above: Performed By: #### S BSC #### [facility] (DEFAULT) [address] [place] [address] [facility] [address] [place] [address] Albumin/Globulin [Mass ratio] 1.5 {ratio} Normal 1.1-2.2 [facility] Comment on above: Performed By: #### S BSC #### [facility] (DEFAULT) [address] [place] [address] [facility] [address] [place] [address] Alk Phos 66 IU/L Normal 32-91 [facility] Comment on above: Performed By: #### S BSC #### [facility] (DEFAULT) [address] [place] [address] [facility] [address] [place] [address] ALT [Catalytic activity/Vol] 11 U/L Low 14-54 [facility] Comment on above: Performed By: #### S BSC #### [facility] (DEFAULT) [address] [place] [address] [facility] [address] [place] [address] Anion gap [Moles/Vol] 7 mmol/L Normal 4-12 [facility] Comment on above: Performed By: #### S BSC #### [facility] (DEFAULT) [address] [place] [address] [facility] [address] [place] [address] AST [Catalytic activity/Vol] 16 U/L Normal 15-41 [facility] Comment on above: Performed By: #### S BSC #### [facility] (DEFAULT) [address] [place] [address] [facility] [address] [place] [address] Bili Total 1.3 mg/dL High 0.3-1.2 [facility] Comment on above: Performed By: #### S BSC #### [facility] (DEFAULT) [address] [place] [address] [facility] [address] [place] [address] Calcium [Mass/Vol] 8.4 mg/dL Low 8.5-10.3 [facility] Comment on above: Performed By: #### S BSC #### [facility] (DEFAULT) [address] [place] [address] [facility] [address] [place] [address] Chloride [Moles/Vol] 103 mmol/L Normal 98-110 [facility] Comment on above: Performed By: #### S BSC #### [facility] (DEFAULT) [address] [place] [address] [facility] [address] [place] [address] CO2 [Moles/Vol] 28 mmol/L Normal 22-32 [facility] Comment on above: Performed By: #### S BSC #### [facility] (DEFAULT) [address] [place] [address] [facility] [address] [place] [address] Creatinine [Mass/Vol] 0.63 mg/dL Normal 0.44-1.03 [facility] Comment on above: Performed By: #### S BSC #### [facility] (DEFAULT) [address] [place] [address] [facility] [address] [place] [address] Glucose [Mass/Vol] 103 mg/dL High 70-99 [facility] Comment on above: Performed By: #### S BSC #### [facility] (DEFAULT) [address] [place] [address] [facility] [address] [place] [address] Potassium [Moles/Vol] 2.9 mmol/L Low 3.4-4.8 [facility] Comment on above: Performed By: #### S BSC #### [facility] (DEFAULT) [address] [place] [address] [facility] [address] [place] [address] Protein [Mass/Vol] 5.9 g/dL Low 6.5-8.1 [facility] Comment on above: Performed By: #### S BSC #### [facility] (DEFAULT) [address] [place] [address] [facility] [address] [place] [address] Sodium [Moles/Vol] 138 mmol/L Normal 133-142 [facility] Comment on above: Performed By: #### S BSC #### [facility] (DEFAULT) [address] [place] [address] [facility] [address] [place] [address] Urea nitrogen [Mass/Vol] 7 mg/dL Low 8-26 [facility] Comment on above: Performed By: #### S BSC #### [facility] (DEFAULT) [address] [place] [address] [facility] [address] [place] [address] Urea nitrogen/Creatinine [Mass ratio] 11.1 mg/mg Normal 10.0-20.0 [facility] Comment on above: Performed By: #### S BSC #### [facility] (DEFAULT) [address] [place] [address] [facility] [address] [place] [address] Dietary Consultationon 07-11 Dietary Consultation Consult for [...] 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 Reports UBW of 108# since losing weight about 3-4 years ago which algins with weight on admit. Reports she is discharging after potassium infusion. Will continue to follow along appropriately. Electronically signed by Mehnaz Moran RD 07/11/24 15:56 EDT Normal [facility] Diff Autoon 07-11-2024 Baso Absolute 0.0 x10*3/mcL Normal 0.0-0.2 [facility] Comment on above: Performed By: #### A NAC #### [facility] [address] [place] [address] Basophils/100 WBC (Bld) 0.5 % Normal 0.0-1.5 [facility] Comment on above: Performed By: #### A NAC #### [facility] [address] [place] [address] Eos Absolute 0.0 x10*3/mcL Normal 0.0-0.4 [facility] Comment on above: Performed By: #### A NAC #### [address] [address] Eosinophils/100 WBC (Bld) 0.3 % Normal 0.0-5.4 [facility] Comment on above: Performed By: #### A NAC #### [address] [address] Lymph Absolute 2.1 x10*3/mcL Normal 1.0-4.8 [facility] Comment on above: Performed By: #### A NAC #### [address] [address] Lymphocytes/100 WBC (Bld) 24.0 % Low 27.2-40.8 [facility] Comment on above: Performed By: #### A NAC #### [address] [address] [place] Absolute 0.5 x10*3/mcL Normal 0.1-1.1 [facility] Comment on above: Performed By: #### A NAC #### [address] [address] Monocytes/100 WBC (Bld) 6.1 % Normal 3.7-11.9 [facility] Comment on above: Performed By: #### A NAC #### [address] [address] Neutro Absolute 6.1 x10*3/mcL Normal 1.8-7.7 [facility] Comment on above: Performed By: #### A NAC #### [address] [address] Neutro Auto 69.1 % Normal 47.2-70.8 [facility] Comment on above: Performed By: #### A NAC #### [address] [address] Inpatient Clinical Summary 07-11-2024 Inpatient Clinical Summary [address] [address] Clinical Summary Person Information Name: Kati Thorne Age: 48 Years : 1975 Sex: Female PCP: Unavailable, Physician Marital Status: Phone: PCP: Race: White Ethnicity: Not or Language: Malawian Visit Id: Visit Reason: Speciality: Acuity: Enc Type: Observation Med Service: Surgery Arrival: 07/10/2024 11:21:35 Discharge: Dispo Type: Address: [address] [place] [id number] Diagnosis: Discharged To: Home Treatments: Devices/Equipment: Professional Skilled Services: Special Services and Community Resources: Mode of Discharge Transportation: Discharge Orders Discharge Special Instructions post office manager will contact you tomorrow regarding pain medication [...] range between ( 27.2 and 40.8 ) [place] Auto: 6.1 % -- Normal range between [...] range between ( 36.0 and 46.0 ) [place] Absolute: 0.5 x10 MCH: 32.5 pg -- [...] Immunizations Doc (more content not included)... Normal [facility] Potassiumon 07-11-2024 Potassium [Moles/Vol] 4.0 mmol/L Normal 3.4-4.8 [facility] Comment on above: Performed By: #### A NAC #### [facility] [address] [place] [id number] Progress Note-Nurseon 2023 Progress Note-Nurse Discharge instructions reviewed with pt and pt verbalizes understanding. Pt taken per wheelchair to private vehicle accompanied by tech. Electronically signed by Marysol Lopes 07/11/24 17:03 EDT Normal [facility] .eGFRon 07-10-2024 GFR/1.73 sq M.predicted MDRD (S/P/Bld) [Vol rate/Area] mL/min/{1.73_m2} Normal >=60 [facility] Comment on above: Result Comment: [facility] have implemented the eGFR calculation [...] years Performed By: #### A NAC #### [place] [id number] CBC w/ Diffon 07-10-2024 Erythrocyte distribution width (RBC) [Ratio] 13.5 % Normal 11.6-14.8 [facility] Comment on above: Performed By: #### A NAC #### [place] [id number] Hematocrit (Bld) [Volume fraction] 39.9 % Normal 36.0-46.0 [facility] Comment on above: Performed By: #### A NAC #### [place] [id number] Hemoglobin (Bld) [Mass/Vol] 13.3 g/dL Normal 12.0-16.0 [facility] Comment on above: Performed By: #### A NAC #### [place] [id number] MCH (RBC) [Entitic mass] 32.2 pg Normal 27.0-35.0 [facility] Comment on above: Performed By: #### A NAC #### [address] [address] MCHC 33.4 % Normal 31.0-37.0 [facility] Comment on above: Performed By: #### A NAC #### [place] [id number] MCV (RBC) [Entitic vol] 96.6 fL Normal 80.0-100.0 [facility] Comment on above: Performed By: #### A NAC #### [place] [id number] Platelet 182 x10*3/mcL Normal 150-450 [facility] Comment on above: Performed By: #### A NAC #### [place] [id number] Platelet mean volume (Bld) [Entitic vol] 8.9 fL Normal 6.7-10.6 [facility] Comment on above: Performed By: #### A NAC #### [place] [id number] RBC 4.13 x10*6/mcL Normal 3.80-5.20 [facility] Comment on above: Performed By: #### A NAC #### [address] [address] WBC 10.2 x10*3/mcL Normal 4.5-11.0 [facility] Comment on above: Performed By: #### A NAC #### [address] [address] CMPon 07-10-2024 Albumin [Mass/Vol] 3.8 g/dL Normal 3.2-4.9 [facility] Comment on above: Performed By: #### A NAC #### [address] [address] Albumin/Globulin [Mass ratio] 1.4 {ratio} Normal 1.1-2.2 [facility] Comment on above: Performed By: #### A NAC #### [address] [address] Alk Phos 75 IU/L Normal 32-91 [facility] Comment on above: Performed By: #### A NAC #### [address] [address] ALT [Catalytic activity/Vol] 13 U/L Low 14-54 [facility] Comment on above: Performed By: #### A NAC #### [address] [address] Anion gap [Moles/Vol] 10 mmol/L Normal 4-12 [facility] Comment on above: Performed By: #### A NAC #### [address] [address] AST [Catalytic activity/Vol] 17 U/L Normal 15-41 [facility] Comment on above: Performed By: #### A NAC #### [address] [address] Bili Total 0.9 mg/dL Normal 0.3-1.2 [facility] Comment on above: Performed By: #### A NAC #### [address] [address] Calcium [Mass/Vol] 8.6 mg/dL Normal 8.5-10.3 [facility] Comment on above: Performed By: #### A NAC #### [address] [address] Chloride [Moles/Vol] 103 mmol/L Normal 98-110 [facility] Comment on above: Performed By: #### A NAC #### [address] [address] CO2 [Moles/Vol] 27 mmol/L Normal 22-32 [facility] Comment on above: Performed By: #### A NAC #### [address] [address] Creatinine [Mass/Vol] 0.54 mg/dL Normal 0.44-1.03 [facility] Comment on above: Performed By: #### A NAC #### [address] [address] Glucose [Mass/Vol] 105 mg/dL High 70-99 [facility] Comment on above: Performed By: #### A NAC #### [address] [address] Potassium [Moles/Vol] 2.7 mmol/L Low 3.4-4.8 [facility] Comment on above: Performed By: #### A NAC #### [address] [address] Protein [Mass/Vol] 6.6 g/dL Normal 6.5-8.1 [facility] Comment on above: Performed By: #### A NAC #### [address] [address] Sodium [Moles/Vol] 140 mmol/L Normal 133-142 [facility] Comment on above: Performed By: #### A NAC #### [address] [address] Urea nitrogen [Mass/Vol] 9 mg/dL Normal 8-26 [facility] Comment on above: Performed By: #### A NAC #### [address] [address] Urea nitrogen/Creatinine [Mass ratio] 16.7 mg/mg Normal 10.0-20.0 [facility] Comment on above: Performed By: #### A NAC #### [address] [address] Diff Autoon 07-10-2024 Baso Absolute 0.1 x10*3/mcL Normal 0.0-0.2 [facility] Comment on above: Performed By: #### A NAC #### [address] [address] Basophils/100 WBC (Bld) 0.6 % Normal 0.0-1.5 [facility] Comment on above: Performed By: #### A NAC #### [address] [address] Eos Absolute 0.0 x10*3/mcL Normal 0.0-0.4 [facility] Comment on above: Performed By: #### A NAC #### [address] [address] Eosinophils/100 WBC (Bld) 0.3 % Normal 0.0-5.4 [facility] Comment on above: Performed By: #### A NAC #### [address] [address] Lymph Absolute 2.3 x10*3/mcL Normal 1.0-4.8 [facility] Comment on above: Performed By: #### A NAC #### [address] [address] Lymphocytes/100 WBC (Bld) 22.8 % Low 27.2-40.8 [facility] Comment on above: Performed By: #### A NAC #### [address] [address] [place] Absolute 0.5 x10*3/mcL Normal 0.1-1.1 [facility] Comment on above: Performed By: #### A NAC #### [address] [address] Monocytes/100 WBC (Bld) 5.2 % Normal 3.7-11.9 [facility] Comment on above: Performed By: #### A NAC #### [address] [address] Neutro Absolute 7.2 x10*3/mcL Normal 1.8-7.7 [facility] Comment on above: Performed By: #### A NAC #### [address] [address] Neutro Auto 71.1 % High 47.2-70.8 [facility] Comment on above: Performed By: #### A NAC #### [address] [address] Magnesiumon 07-10-2024 Magnesium [Mass/Vol] 1.8 mg/dL Normal 1.7-2.4 [facility] Comment on above: Performed By: #### S BSC #### [facility] (DEFAULT) [address] [place] [address] [facility] [address] [place] [address] Operative Reporton Operative Report Indication for Surgery [...] Surgeon(s) Santo Recinos DO (Surgeon - Primary) Hand Mounter None Anesthesia General Thaddeus RAMIREZ, Dominick Young (Mechanical Design Engineer) Zackery De Dios (Provider) Estimated Blood Loss [...] Santo Recinos DO 07/10/24 15:47 EDT Normal [facility] XR Finger 2nd Digit Righton 07-10-2024 XR [...] Electronically Signed in Other Vendor System) Normal [facility] XR FINGER LEFT (MIN 2 VIEWS) on [...] Robertson Jr., MD 06/30/24 Final result Normal [facility] XR FINGER RIGHT (MIN 2 VIEWS [...] Robertson Jr., MD 06/09/24 Final result Normal [facility] XR NECK SOFT TISSUEon 2022 XR [...] ANGY SMALLS Date: 2023-02-23 13:14 Normal [facility] FREE T4on 02-20-2023 Free T4 [Mass/Vol] 0.65 ng/dL Critically low 0.76-1.46 [facility] Comment on above: Performed By: #### L ACT #### [facility] [address] [place] [address] [address] Jovanna Oneill TSH W/ REFLEX TO FT4on 02-20 TSH 5.032 uIU/mL Critically high 0.358-3.740 [facility] Comment on above: Performed By: #### L ACT #### [facility] [address] [place] [address] [address] Jovanna Oneill RESPIRATORY PANEL PLUSon Adenovirus Not detected Normal NOT DETECTED [facility] Comment on above: Performed By: #### R SPLUS ####[facility] [address] [place], [place] [address]Dr. Jovanna Oneill B. Parapertusis Not detected Normal NOT DETECTED [facility] Comment on above: Performed By: #### R SPLUS ####[facility] [address] [place], [place] [address]Dr. Jovanna Oneill B. Pertussis Not detected Normal NOT DETECTED [facility] Comment on above: Performed By: #### R SPLUS ####[facility] [address] [place], [place] [address]Dr. Jovanna Oneill Chlamydia Pneumoniae Not detected Normal NOT DETECTED [facility] Comment on above: Performed By: #### R SPLUS ####[facility] [address] [place], [place] [address]Dr. Jovanna Oneill Coronavirus 229E Not detected Normal NOT DETECTED [facility] Comment on above: Performed By: #### R SPLUS ####[facility] [address] [place], [place] [address]Dr. Jovanna Oneill Coronavirus HKU1 Not detected Normal NOT DETECTED [facility] Comment on above: Performed By: #### R SPLUS ####[facility] [address] [place], [place] [address]Dr. Jovanna Oneill Coronavirus NL63 Not detected Normal NOT DETECTED [facility] Comment on above: Performed By: #### R SPLUS ####[facility] [address] [place] [address]Dr. Jovanna Oneill Coronavirus OC43 Not detected Normal NOT DETECTED [facility] Comment on above: Performed By: #### R SPLUS ####[facility] [address] [place], [place] [address]Dr. Jovanna Oneill Influenza A H1 Not detected Normal NOT DETECTED [facility] Comment on above: Performed By: #### R SPLUS ####[facility] [address] [place], [place] [address]Dr. Jovanna Oneill Influenza A H1 2009 Not detected Normal NOT DETECTED [facility] Comment on above: Performed By: #### R SPLUS ####[facility] [address] [place], [place] [address]Dr. Jovanna Oneill Influenza A H3 Not detected Normal NOT DETECTED [facility] Comment on above: Performed By: #### R SPLUS ####[facility] [address] [place], [place] [address]Dr. Jovanna Oneill Influenza B Not detected Normal NOT DETECTED [facility] Comment on above: Performed By: #### R SPLUS ####[facility] [address] [place], [place] [address]Dr. Jovanna Oneill Metapneumovirus Not detected Normal NOT DETECTED [facility] Comment on above: Performed By: #### R SPLUS ####[facility] [address] [place], [place] [address]Dr. Jovanna Oneill Mycoplas. Pneumoniae Not detected Normal NOT DETECTED [facility] Comment on above: Performed By: #### R SPLUS ####[facility] [address] [place], [place] [address]Dr. Jovanna Oneill Parainfluenza 1 Not detected Normal NOT DETECTED [facility] Comment on above: Performed By: #### R SPLUS ####[facility] [address] [place], [place] [address]Dr. Jovanna Oneill Parainfluenza 2 Not detected Normal NOT DETECTED [facility] Comment on above: Performed By: #### R SPLUS ####[facility] [address] [place] [address]Dr. Jovanna Oneill Parainfluenza 3 Not detected Normal NOT DETECTED [facility] Comment on above: Performed By: #### R SPLUS ####[facility] [address] [place], [place] [address]Dr. Jovanna Oneill Parainfluenza 4 Not detected Normal NOT DETECTED [facility] Comment on above: Performed By: #### R SPLUS ####[facility] [address] [place], [place] [address]Dr. Jovanna Oneill Rhino/Enterovirus Not detected Normal NOT DETECTED [facility] Comment on above: Performed By: #### R SPLUS ####[facility] [address] [place], [place] [address]Dr. Jovanna Oneill RP2 Header 1 RESPIRATORY PANEL: VIRUSES Normal [facility] Comment on above: Performed By: #### R SPLUS ####[facility] [address] [place], [place] [address]Dr. Jovanna Oneill RP2 Header 2 RESPIRATORY PANEL: BACTERIA Normal [facility] Comment on above: Performed By: #### R SPLUS ####[facility] Z[address] [place], [place] [address]Dr. Jovanna Oneill RSV Not detected Normal NOT DETECTED [facility] Comment on above: Performed By: #### R SPLUS ####[facility] [address] [place], [place] [address]Dr. Jovanna Oneill SARS-CoV-2 (COVID-19) RNA DUC+probe Ql (Unsp spec) Not detected Normal NOT DETECTED [facility] Comment on above: Performed By: #### R SPLUS ####[facility] [address] [place], [place] [address]Dr. Jovanna Oneill MG MAMM SCREEN 3D CHELLY CADon 01-12-2023 MG MAMM SCREEN 3D CHELLY CAD Patient: KATI THORNE Exam Date: 01/12/2023 : 1975 Gender:F Ordering : TATUM ONOFRE Admission #: [id number] Family : Order #: [id number] CLICK HERE TO VIEW EXAM RADIOLOGY REPORT [...] cervical cancer at age 40. LOCATION: [facility] BREAST COMPOSITION: Almost entirely fatty. FINDINGS: DIAGNOSTIC [...] Yanez MD on 01/12/2023 at 12:42 Normal [facility] XR DEXA BONE DENSITYon 01-12 XR [...] RJ YANEZ Date: 2023-01-12 17:10 Normal [facility] GABAPENTIN URINEon Gabapentin, Urine Negative Normal [facility] Comment on above: Performed By: #### G ABAP ####[facility] [address] [place], [place] [address]DgJhony Jovanna Nino DRUG SCREEN RAPID (URINE)on 11-14-2022 AMP Negative Normal NEGATIVE [facility] Comment on above: Performed By: #### V ITB12 #### [facility] [address] [place] [address] Dr. Jovanna Oneill BAR Negative Normal NEGATIVE [facility] Comment on above: Performed By: #### V ITB12 #### [facility] [address] [place] [address] Dr. Jovanna Oneill BUP Negative Normal NEGATIVE [facility] Comment on above: Performed By: #### V ITB12 #### [facility] [address] [place] [address] Dr. Jovanna Oneill BZO Negative Normal NEGATIVE [facility] Comment on above: Performed By: #### V ITB12 #### [facility] [address] [place] [address] Dr. Jovanna Oneill CARA Negative Normal NEGATIVE [facility] Comment on above: Performed By: #### V ITB12 #### [facility] [address] [place] [address] Dr. Jovanna Oneill CUT-OFFS SEE BELOW Normal [facility] Comment on above: Result Comment: AMP (Amphetamine): 500ng/mL, BAR (Barbituates): 200 ng/mL, BZO (Benzodiazepines): 150 ng/mL, BUP (Buprenorphine): 10 ng/mL, CRAA (Cocaine): 150 ng/mL, mAMP (Methamphetamine): 500 ng/mL, MTD (Methadone): 200 ng/mL, OPI (Opiates): 100 ng/mL, OXY (Oxycodone): 100 ng/mL, PCP (Phencyclidine): 25 ng/mL, PPX (Propoxyphene): 300 ng/mL, THC (Cannabinoids): 50 ng/mL, TCA (Trycyclic Antidepressants): 300 ng/mL Performed By: #### V ITB12 #### [facility] [address] [place] [address] Dr. Jovanna Oneill DRUG CUT HEADER DRUG CLASS TEST SYSTEM CUT-OFF CONCENTRATIONS ARE FOLLOWS: Normal [facility] Comment on above: Performed By: #### V ITB12 #### [facility] [address] [place] [address] Dr. Jovanna Oneill mAMP Negative Normal NEGATIVE [facility] Comment on above: Performed By: #### V ITB12 #### [facility] [address] [address] [address] Jovanna Oneill MTD Negative Normal NEGATIVE [facility] Comment on above: Performed By: #### V ITB12 #### [facility] [address] [place] [address] Dr. Jovanna Oneill OPI Positive Abnormal NEGATIVE [facility] Comment on above: Performed By: #### V ITB12 #### [facility] [address] [place] [address] Dr. Jovanna Oneill OXY Negative Normal NEGATIVE [facility] Comment on above: Performed By: #### V ITB12 #### [facility] [address] [place] [address] Dr. Jovanna Oneill PCP Negative Normal NEGATIVE [facility] Comment on above: Performed By: #### V ITB12 #### [facility] [address] [place] [address] Dr. Jovanna Oneill PPX Negative Normal NEGATIVE [facility] Comment on above: Performed By: #### V ITB12 #### [facility] [address] [place] [address] Dr. Jovanna Oneill TCA Negative Normal NEGATIVE [facility] Comment on above: Performed By: #### V ITB12 #### [facility] [address] [place] [address] Dr. Jovanna Oneill THC Positive Abnormal NEGATIVE [facility] Comment on above: Performed By: #### V ITB12 #### [facility] [address] [place] [address] Dr. Jovanna Onelil CBC AUTO DIFFon 10-08-2022 BASO # 0.0 103/ul Normal 0.0-0.1 [facility] Comment on above: Performed By: #### C BC #### [facility] [address] [place] [address] Dr. Jovanna Oneill Basophils/100 WBC (Bld) 0.4 % Normal 0.2-2.0 [facility] Comment on above: Performed By: #### C BC #### [facility] [address] [place] [address] Dr. Jovanna Oneill EO # 0.1 103/ul Normal 0.0-0.7 [facility] Comment on above: Performed By: #### C BC #### [facility] [address] [place] [address] Dr. Jovanna Oneill Eosinophils/100 WBC (Bld) 1.3 % Normal 0.9-7.0 [facility] Comment on above: Performed By: #### C BC #### [facility] [address] [place] [address] Dr. Jovanna Oneill Erythrocyte distribution width (RBC) [Ratio] 12.0 % Normal 11.0-15.0 [facility] Comment on above: Performed By: #### C BC #### [facility] [address] [place] [address] Dr. Jovanna Oneill Hematocrit (Bld) [Volume fraction] 37.8 % Normal 36.0-48.0 [facility] Comment on above: Performed By: #### C BC #### [facility] [address] [place] [address] Dr. Jovanna Oneill Hemoglobin (Bld) [Mass/Vol] 12.8 g/dL Normal 12.0-16.0 [facility] Comment on above: Performed By: #### C BC #### [facility] [address] [place] [address] Dr. Jovanna Oneill IG # 0.02 10e3/ul Normal 0.00-0.03 [facility] Comment on above: Performed By: #### C BC #### [facility] [address] [place] [address] Dr. Jovanna Oneill IG % 0.2 % Normal 0.0-0.5 [facility] Comment on above: Performed By: #### C BC #### [facility] [address] [place] [address] Dr. Jovanna Oneill LYMPH # 3.5 103/ul Normal 1.2-3.8 [facility] Comment on above: Performed By: #### C BC #### [facility] [address] [place] [address] Dr. Jovanna Oneill Lymphocytes/100 WBC (Bld) 37.9 % Normal 20.5-60.0 [facility] Comment on above: Performed By: #### C BC #### [facility] [address] [place] [address] Dr. Jovanna Oneill MANUAL DIFF REQ NO Normal [facility] Comment on above: Performed By: #### C BC #### [facility] [address] [place] [address] Dr. Jovanna Oneill MCH (RBC) [Entitic mass] 31.7 pg Normal 26.7-34.0 [facility] Comment on above: Performed By: #### C BC #### [facility] [address] [place] [address] Dr. Jovanna Oneill MCHC (RBC) [Mass/Vol] 33.9 g/dL Normal 29.9-35.2 [facility] Comment on above: Performed By: #### C BC #### [facility] [address] [place] [address] Dr. Jovanna Oneill MCV (RBC) [Entitic vol] 93.6 fL Normal 81.0-99.0 [facility] Comment on above: Performed By: #### C BC #### [facility] [address] [place] [address] Dr. Jovanna Oneill MONO # 0.5 103/ul Normal 0.3-0.8 [facility] Comment on above: Performed By: #### C BC #### [facility] [address] [place] [address] Dr. Jovanna Oneill Monocytes/100 WBC (Bld) 4.8 % Normal 1.7-12.0 [facility] Comment on above: Performed By: #### C BC #### [facility] [address] [place] [address] Dr. Jovanna Oneill NEUT # 5.1 103/ul Normal 1.4-6.5 [facility] Comment on above: Performed By: #### C BC #### [facility] [address] [place] [address] Dr. Jovanna Oneill Neutrophils/100 WBC (Bld) 55.4 % Normal 43.0-75.0 [facility] Comment on above: Performed By: #### C BC #### [facility] [address] [address] [address] Jovanna Oneill Platelet mean volume (Bld) [Entitic vol] 10.2 fL Normal 9.5-13.5 [facility] Comment on above: Performed By: #### C BC #### [facility] [address] [address] [address] Jovanna Oneill PLT 181 103/ul Normal 150-450 [facility] Comment on above: Performed By: #### C BC #### [facility] [address] [address] [address] Jovanna Oneill RBC 4.04 106/ul Critically low 4.20-5.40 [facility] Comment on above: Performed By: #### C BC #### [facility] [address] [address] [address] Jovanna Oneill WBC 9.3 103/ul Normal 4.0-11.0 [facility] Comment on above: Performed By: #### C BC #### [facility] [address] [address] [address] Jovanna Oneill CRPon 10-08-2022 CRP [Mass/Vol] mg/L Normal <=1.0 [facility] Comment on above: Performed By: #### B MP, CRP ####[facility] [address] [place] [address]Dr. Jovanna Oneill LACTATE/LACTIC ACIDon 2021 Lactate [Moles/Vol] 0.4 mmol/L Normal 0.4-1.9 [facility] Comment on above: Performed By: #### L ACT #### [facility] [address] [address] [address] Jovanna Oneill PROF CHEM 8 (BAS METB)on Anion gap [Moles/Vol] 12.6 mmol/L Normal [facility] Comment on above: Performed By: #### B MP, CRP #### [facility] [address] [address] [address] Jovanna Oneill Calcium [Mass/Vol] 8.6 mg/dL Normal 8.5-10.1 [facility] Comment on above: Performed By: #### B MP, CRP #### [facility] [address] [address] [address] Jovanna Oneill Chloride [Moles/Vol] 104 mmol/L Normal 98-107 [facility] Comment on above: Performed By: #### B MP, CRP #### [facility] [address] [address] [address] Jovanna Oneill CO2 [Moles/Vol] 26.8 mmol/L Normal 21.0-32.0 [facility] Comment on above: Performed By: #### B MP, CRP #### [facility] [address] [place] [address] Dr. Jovanna Oneill Creatinine [Mass/Vol] 0.52 mg/dL Critically low 0.55-1.02 [facility] Comment on above: Performed By: #### B MP, CRP #### [facility] [address] [place] [address] Dr. Jovanna Oneill EGFR-AF LUXEMBOURGER >60 Normal >=60 [facility] Comment on above: Performed By: #### B MP, CRP #### [facility] [address] [place] [address] Dr. Jovanna Oneill EGFR-NON AF LUXEMBOURGER >60 Normal >=60 [facility] Comment on above: Performed By: #### B MP, CRP #### [facility] [address] [place] [address] Dr. Jovanna Oneill Glucose [Mass/Vol] 93 mg/dL Normal 74-106 [facility] Comment on above: Performed By: #### B MP, CRP #### [facility] [address] [place] [address] Dr. Jovanna Oneill Potassium [Moles/Vol] 3.4 mmol/L Critically low 3.5-5.1 [facility] Comment on above: Performed By: #### B MP, CRP #### [facility] [address] [place], [place] [address] Dr. Jovanna Oneill Sodium [Moles/Vol] 140 mmol/L Normal 136-145 [facility] Comment on above: Performed By: #### B MP, CRP #### [facility] [address] [place], [place] [address] Dr. Jovanna Oneill Urea nitrogen [Mass/Vol] 11.0 mg/dL Normal 7.0-18.0 [facility] Comment on above: Performed By: #### B MP, CRP #### [facility] [address] [id number] Jovanna Oneill Urea nitrogen/Creatinine [Mass ratio] 21.2 mg/mg Normal [facility] Comment on above: Performed By: #### B MP, CRP #### [facility] [id number] Jovanna Oneill SED RATE [facility] 2021 SED RATE 17 mm/hr Normal <=20 [facility] Comment on above: Performed By: #### S EDR ####[facility] [address] [place], [place] [address]LfDr. Jovanna Oneill Physician Referralon 022 Physician Referral [phone] 1 [id number] .00CD:127 Normal [facility] Physician Referral [id number] 1 [id number] .00CD:127 Normal [facility] PROF 14(COMP METB)on 022 Albumin [Mass/Vol] 3.4 g/dL Normal 3.4-5.0 [facility] Comment on above: Performed By: #### V ITB12 #### [facility] [id number] Jovanna Oneill Albumin/Globulin [Mass ratio] 1.1 {ratio} Normal [facility] Comment on above: Performed By: #### V ITB12 #### [facility] [address] [address] [address] Jovanna Oneill ALP [Catalytic activity/Vol] 88 U/L Normal 46-116 [facility] Comment on above: Performed By: #### V ITB12 #### [facility] [address] [address] [address] Jovanna Oneill ALT [Catalytic activity/Vol] 11 U/L Critically low 14-59 [facility] Comment on above: Performed By: #### V ITB12 #### [facility] [address] [address] [address] Jovanna Oneill Anion gap [Moles/Vol] 8.7 mmol/L Normal [facility] Comment on above: Performed By: #### V ITB12 #### [facility] [address] [address] [address] Jovanna Oneill AST [Catalytic activity/Vol] 13 U/L Critically low 15-37 [facility] Comment on above: Performed By: #### V ITB12 #### [facility] [address] [place] [address] Dr. Jovanna Oneill Bilirubin [Mass/Vol] 0.6 mg/dL Normal 0.2-1.0 [facility] Comment on above: Performed By: #### V ITB12 #### [facility] [address] [address] [address] Jovanna Oneill Calcium [Mass/Vol] 8.7 mg/dL Normal 8.5-10.1 [facility] Comment on above: Performed By: #### V ITB12 #### [facility] [address] [address] [address] Jovanna Oneill Chloride [Moles/Vol] 104 mmol/L Normal 98-107 [facility] Comment on above: Performed By: #### V ITB12 #### [facility] [address] [address] [address] Jovanna Oneill CO2 [Moles/Vol] 31.9 mmol/L Normal 21.0-32.0 [facility] Comment on above: Performed By: #### V ITB12 #### [facility] [address] [address] [address] Jovanna Oneill Creatinine [Mass/Vol] 0.65 mg/dL Normal 0.55-1.02 [facility] Comment on above: Performed By: #### V ITB12 #### [facility] [address] [address] [address] Jovanna Oneill EGFR-AF LUXEMBOURGER >60 Normal >=60 [facility] Comment on above: Performed By: #### V ITB12 #### [facility] [address] [address] [address] Jovanna Oneill EGFR-NON AF LUXEMBOURGER >60 Normal >=60 [facility] Comment on above: Performed By: #### V ITB12 #### [facility] [address] [address] [address] Jovanna Oneill Globulin (S) [Mass/Vol] 3.2 g/dL Normal [facility] Comment on above: Performed By: #### V ITB12 #### [facility] [address] [place] [address] Dr. Jovanna Oneill Glucose [Mass/Vol] 91 mg/dL Normal 74-106 [facility] Comment on above: Performed By: #### V ITB12 #### [facility] [address] [address] [address] Jovanna Oneill Potassium [Moles/Vol] 3.6 mmol/L Normal 3.5-5.1 [facility] Comment on above: Performed By: #### V ITB12 #### [facility] [address] [address] [address] Jovanna Oneill Protein [Mass/Vol] 6.6 g/dL Normal 6.4-8.2 [facility] Comment on above: Performed By: #### V ITB12 #### [facility] [address] [address] [address] Joavnna Oneill Sodium [Moles/Vol] 141 mmol/L Normal 136-145 [facility] Comment on above: Performed By: #### V ITB12 #### [facility] [address] [address] [address] Jovanna Oneill Urea nitrogen [Mass/Vol] 4.0 mg/dL Critically low 7.0-18.0 [facility] Comment on above: Performed By: #### V ITB12 #### [facility] [address] [place] [address] Dr. Jovanna Oneill Urea nitrogen/Creatinine [Mass ratio] 6.2 mg/mg Normal [facility] Comment on above: Performed By: #### V ITB12 #### [facility] [address] [place] [address] Dr. Jovanna Oneill HEPATITIS C AB CASCADE TO QU ANT PCR GENOon 09-13-2022 HCV AB <0.1 Normal 0.0-0.9 [facility] Comment on above: Performed By: #### H EPCASC #### [facility] [address] [place] [address] Dr. Jovanna Oneill Interpretation: Comment Normal [facility] Comment on above: Result Comment: Nega tive Not infected with HCV, unless recent infection is suspected or other evidence exists to indicate HCV infection. Performed By: #### H EPCASC #### [facility] [address] [place] [address] Dr. Jovanna Oneill CBC AUTO DIFFon 09-12-2022 BASO # 0.0 103/ul Normal 0.0-0.1 [facility] Comment on above: Performed By: #### C BC #### [facility] [address] [place] [address] Dr. Jovanna Oneill Basophils/100 WBC (Bld) 0.3 % Normal 0.2-2.0 [facility] Comment on above: Performed By: #### C BC #### [facility] [address] [place] [address] Dr. Jovanna Oneill EO # 0.1 103/ul Normal 0.0-0.7 [facility] Comment on above: Performed By: #### C BC #### [facility] [address] [place] [address] Dr. Jovanna Oneill Eosinophils/100 WBC (Bld) 0.7 % Critically low 0.9-7.0 [facility] Comment on above: Performed By: #### C BC #### [facility] [address] [place] [address] Dr. Jovanna Oneill Erythrocyte distribution width (RBC) [Ratio] 12.3 % Normal 11.0-15.0 [facility] Comment on above: Performed By: #### C BC #### [facility] [address] [place] [address] Dr. Jovanna Oneill Hematocrit (Bld) [Volume fraction] 40.2 % Normal 36.0-48.0 [facility] Comment on above: Performed By: #### C BC #### [facility] [address] [place] [address] Dr. Jovanna Oneill Hemoglobin (Bld) [Mass/Vol] 13.4 g/dL Normal 12.0-16.0 [facility] Comment on above: Performed By: #### C BC #### [facility] [address] [place] [address] Dr. Jovanna Oneill IG # 0.02 10e3/ul Normal 0.00-0.03 [facility] Comment on above: Performed By: #### C BC #### [facility] [address] [place] [address] Dr. Jovanna Oneill IG % 0.3 % Normal 0.0-0.5 [facility] Comment on above: Performed By: #### C BC #### [facility] [address] [place] [address] Dr. Jovanna Oneill LYMPH # 2.2 103/ul Normal 1.2-3.8 [facility] Comment on above: Performed By: #### C BC #### [facility] [address] [place] [address] Dr. Jovanna Oneill Lymphocytes/100 WBC (Bld) 31.9 % Normal 20.5-60.0 [facility] Comment on above: Performed By: #### C BC #### [facility] [address] [place] [address] Dr. Jovanna Oneill MANUAL DIFF REQ NO Normal [facility] Comment on above: Performed By: #### C BC #### [facility] [address] [place] [address] Dr. Jovanna Oneill MCH (RBC) [Entitic mass] 31.8 pg Normal 26.7-34.0 [facility] Comment on above: Performed By: #### C BC #### [facility] [address] [place] [address] Dr. Jovanna Oneill MCHC (RBC) [Mass/Vol] 33.3 g/dL Normal 29.9-35.2 [facility] Comment on above: Performed By: #### C BC #### [facility] [address] [place] [address] Dr. Jovanna Oneill MCV (RBC) [Entitic vol] 95.5 fL Normal 81.0-99.0 [facility] [facility] Comment on above: Performed By: #### C BC #### [facility] [address] [place] [address] Dr. Jovanna Oneill MONO # 0.3 103/ul Normal 0.3-0.8 [facility] Comment on above: Performed By: #### C BC #### [facility] [address] [place] [address] Dr. Jovanna Oneill Monocytes/100 WBC (Bld) 4.4 % Normal 1.7-12.0 [facility] Comment on above: Performed By: #### C BC #### [facility] [address] [place] [address] Dr. Jovanna Oneill NEUT # 4.4 103/ul Normal 1.4-6.5 [facility] Comment on above: Performed By: #### C BC #### [facility] [address] [place] [address] Dr. Jovanna Oneill Neutrophils/100 WBC (Bld) 62.4 % Normal 43.0-75.0 [facility] Comment on above: Performed By: #### C BC #### [facility] [address] [place] [address] Dr. Jovanna Oneill Platelet mean volume (Bld) [Entitic vol] 10.9 fL Normal 9.5-13.5 [facility] Comment on above: Performed By: #### C BC #### [facility] [address] [place] [address] Dr. Jovanna Oneill PLT 179 103/ul Normal 150-450 [facility] Comment on above: Performed By: #### C BC #### [facility] [address] [place] [address] Dr. Jovanna Oneill RBC 4.21 106/ul Normal 4.20-5.40 [facility] Comment on above: Performed By: #### C BC #### [facility] [address] [place] [address] Dr. Jovanna Oneill WBC 7.0 103/ul Normal 4.0-11.0 [facility] Comment on above: Performed By: #### C BC #### [facility] [address] [place] [address] Dr. Jovanna Oneill GLYCOHEMOGLOBIN A1Con 2021 ADA RECOMMENDATION SEE BELOW Normal [facility] Comment on above: Result Comment: ADA RECOMMENDED LIMIT 4.0 - 6.0 ADA THERAPEUTIC TARGET < 7.0 ACTION SUGGESTED > 7.0 Performed By: #### L ACT #### [facility] [address] [place] [address] Dr. Jovanna Oneill Glucose [Mass/Vol] 105 mg/dL Normal [facility] Comment on above: Performed By: #### L ACT #### [facility] [address] [place] [address] Dr. Jovanna Oneill HbA1c (Bld) [Mass fraction] 5.3 % Normal 4.5-6.2 [facility] Comment on above: Performed By: #### L ACT #### [facility] [address] [place] [address] Dr. Jovanna Oneill LIPID PROFILEon 09-12-2022 CHOL-HDL RATIO NORM SEE BELOW Normal [facility] Comment on above: Result Comment: 3.3 - 4.4 LOW RISK 4.4 - 7.1 AVERAGE RISK 7.1 - 11.0 MODERATE RISK >11.0 HIGH RISK Performed By: #### C MP, LIPID #### [facility] [address] [place] [address] Dr. Jovanna Oneill Cholesterol [Mass/Vol] 135 mg/dL Normal <=200 [facility] Comment on above: Performed By: #### C MP, LIPID #### [facility] [address] [place] [address] Dr. Jovanna Oneill Cholesterol in HDL [Mass/Vol] 35 mg/dL Critically low 40-60 [facility] Comment on above: Performed By: #### C MP, LIPID #### [facility] [address] [place] [address] Dr. Jovanna Oneill Cholesterol in LDL [Mass/Vol] 84.8 mg/dL Normal [facility] Comment on above: Performed By: #### C MP, LIPID #### [facility] [address] [place] [address] Dr. Jovanna Oneill Cholesterol.total/Ch olesterol in HDL [Mass ratio] 3.9 {ratio} Normal [facility] Comment on above: Performed By: #### C MP, LIPID #### [facility] [address] [place] [address] Dr. Jovanna Oneill HDL NORMAL > or = 60 mg/dl - LO W CARDIOVASCULAR RISK <40 mg/dl - HIGH CARDIOVASCULAR RISK Normal [facility] Comment on above: Performed By: #### C MP, LIPID #### [facility] [address] [place] [address] Dr. Jovanna Oneill LDL CALC NORMAL SEE BELOW Normal [facility] Comment on above: Result Comment: <100 mg/dl OPTIMAL 100 - 129 mg/dl NEAR OR ABOVE OPTIMAL 130 - 159 mg/dl BORDERLINE HIGH 160 - 189 mg/dl HIGH >190 mg/dl VERY HIGH Performed By: #### C MP, LIPID #### [facility] [address] [place] [address] Dr. Jovanna Oneill Triglyceride [Mass/Vol] 76 mg/dL Normal <=150 [facility] Comment on above: Performed By: #### C MP, LIPID #### [facility] [address] [place] [address] Dr. Jovanna Oneill VLDL CALC 15.2 mg/dL Normal [facility] Comment on above: Performed By: #### C MP, LIPID #### [facility] [address] [place] [address] Dr. Jovanna Oneill PROF 14(COMP METB)on 022 Albumin [Mass/Vol] 3.5 g/dL Normal 3.4-5.0 [facility] Comment on above: Performed By: #### C MP, LIPID #### [facility] [address] [place] [address] Dr. Jovanna Oneill Albumin/Globulin [Mass ratio] 1.1 {ratio} Normal [facility] Comment on above: Performed By: #### C MP, LIPID #### [facility] [address] [place] [address] Dr. Jovanna Oneill ALP [Catalytic activity/Vol] 79 U/L Normal 46-116 [facility] Comment on above: Performed By: #### C MP, LIPID #### [facility] [address] [place] [address] Dr. Jovanna Oneill ALT [Catalytic activity/Vol] 15 U/L Normal 14-59 [facility] Comment on above: Performed By: #### C MP, LIPID #### [facility] [address] [place] [address] Dr. Jovanna Oneill Anion gap [Moles/Vol] 4.9 mmol/L Normal [facility] Comment on above: Performed By: #### C MP, LIPID #### [facility] [address] [place] [address] Dr. Jovanna Oneill AST [Catalytic activity/Vol] 17 U/L Normal 15-37 [facility] Comment on above: Performed By: #### C MP, LIPID #### [facility] [address] [place] [address] Dr. Jovanna Oneill Bilirubin [Mass/Vol] 0.4 mg/dL Normal 0.2-1.0 [facility] Comment on above: Performed By: #### C MP, LIPID #### [facility] [address] [place] [address] Dr. Jovanna Oneill Calcium [Mass/Vol] 8.7 mg/dL Normal 8.5-10.1 [facility] Comment on above: Performed By: #### C MP, LIPID #### [facility] [address] [place] [address] Dr. Jovanna Oneill Chloride [Moles/Vol] 103 mmol/L Normal 98-107 [facility] Comment on above: Performed By: #### C MP, LIPID #### [facility] [address] [address] [address] Jovanna Oneill CO2 [Moles/Vol] 35.8 mmol/L Critically high 21.0-32.0 [facility] Comment on above: Performed By: #### C MP, LIPID #### [facility] [address] [place] [address] Dr. Jovanna Oneill Creatinine [Mass/Vol] 0.70 mg/dL Normal 0.55-1.02 [facility] Comment on above: Performed By: #### C MP, LIPID #### [facility] [address] [place] [address] Dr. Jovanna Oneill EGFR-AF LUXEMBOURGER >60 Normal >=60 [facility] Comment on above: Performed By: #### C MP, LIPID #### [facility] [address] [place] [address] Dr. Jovanna Oneill EGFR-NON AF LUXEMBOURGER >60 Normal >=60 [facility] Comment on above: Performed By: #### C MP, LIPID #### [facility] [address] [place] [address] Dr. Jovanna Oneill Globulin (S) [Mass/Vol] 3.2 g/dL Normal [facility] Comment on above: Performed By: #### C MP, LIPID #### [facility] [address] [place] [address] Dr. Jovanna Oneill Glucose [Mass/Vol] 86 mg/dL Normal 74-106 [facility] Comment on above: Performed By: #### C MP, LIPID #### [facility] [address] [place] [address] Dr. Jovanna Oneill Potassium [Moles/Vol] 2.7 mmol/L Critically low 3.5-5.1 [facility] Comment on above: Performed By: #### C MP, LIPID #### [facility] [address] [place] [address] Dr. Jovanna Oneill Protein [Mass/Vol] 6.7 g/dL Normal 6.4-8.2 [facility] Comment on above: Performed By: #### C MP, LIPID #### [facility] [address] [address] [address] Jovanna Oneill Sodium [Moles/Vol] 141 mmol/L Normal 136-145 [facility] Comment on above: Performed By: #### C MP, LIPID #### [facility] [address] [address] [address] Jovanna Oneill Urea nitrogen [Mass/Vol] 6.0 mg/dL Critically low 7.0-18.0 [facility] Comment on above: Performed By: #### C MP, LIPID #### [facility] [address] [address] [address] Jovanna Oneill Urea nitrogen/Creatinine [Mass ratio] 8.6 mg/mg Normal [facility] Comment on above: Performed By: #### C MP, LIPID #### [facility] [address] [address] [address] Jovanna Oneill US THYROIDon 09-12-2022 US [...] by: FRANCES AGUSTIN Date: 2022-09-12 11:52 Normal [facility] VITAMIN B12on 09-12-2022 Cobalamin (Vitamin B12) [Mass/Vol] 280.0 pg/mL Normal 193.0-986.0 [facility] Comment on above: Performed By: #### V ITB12 #### [facility] [address] CSPINE WO CONon [...] MAN VILLALOBOS Date: 2022-08-24 18:11 Normal [facility] CT NECK ST W CONon 2 CT [...] WOO PAIGE Date: 2022-08-16 23:10 Normal [facility] CBC AUTO DIFFon 08-16-2022 BASO # 0.0 103/ul Normal 0.0-0.1 [facility] Comment on above: Performed By: #### C BC ####[facility] [address] [address]Dr. Rosaliareagan Oneill Basophils/100 WBC (Bld) 0.2 % Normal 0.2-2.0 [facility] Comment on above: Performed By: #### C BC ####[facility] [address] [address]Dr. Jovanna Oneill EO # 0.1 103/ul Normal 0.0-0.7 [facility] Comment on above: Performed By: #### C BC ####[facility] [address] [address]Dr. Jovanna Oneill Eosinophils/100 WBC (Bld) 0.7 % Critically low 0.9-7.0 [facility] Comment on above: Performed By: #### C BC ####[facility] [address] [place], [place] [id number]. Rosaliareagan Oneill Erythrocyte distribution width (RBC) [Ratio] 12.1 % Normal 11.0-15.0 [facility] Comment on above: Performed By: #### C BC ####[facility] [address] [address]Dr. Rosaliareagan Oneill Hematocrit (Bld) [Volume fraction] 38.8 % Normal 36.0-48.0 [facility] Comment on above: Performed By: #### C BC ####[facility] [address] [place], [place] [address]Dr. Rosaliareagan Oneill Hemoglobin (Bld) [Mass/Vol] 12.8 g/dL Normal 12.0-16.0 [facility] Comment on above: Performed By: #### C BC ####[facility] [address] [id number]. Jovanna Oneill IG # 0.06 10e3/ul Critically high 0.00-0.03 [facility] Comment on above: Performed By: #### C BC ####[facility] [address] [id number]. Jovanna Oneill IG % 0.4 % Normal 0.0-0.5 [facility] Comment on above: Performed By: #### C BC ####[facility] [address] [address]Dr. Jovanan Nino LYMPH # 2.5 103/ul Normal 1.2-3.8 [facility] Comment on above: Performed By: #### C BC ####[facility] [address] [address]Dr. Jovanna Oneill Lymphocytes/100 WBC (Bld) 18.1 % Critically low 20.5-60.0 [facility] Comment on above: Performed By: #### C BC ####[facility] [address] [address]Dr. Rosaliareagan Oneill MANUAL DIFF REQ NO Normal [facility] Comment on above: Performed By: #### C BC ####[facility] [address] [address]Dr. Jovanna Oneill MCH (RBC) [Entitic mass] 32.0 pg Normal 26.7-34.0 [facility] Comment on above: Performed By: #### C BC ####[facility] [address] [address]Dr. Jovanna Oneill MCHC (RBC) [Mass/Vol] 33.0 g/dL Normal 29.9-35.2 [facility] Comment on above: Performed By: #### C BC ####[facility] [address] [address]Dr. Jovanna Oneill MCV (RBC) [Entitic vol] 97.0 fL Normal 81.0-99.0 [facility] Comment on above: Performed By: #### C BC ####[facility] [address] [id number]. Jovanna Oneill MONO # 0.6 103/ul Normal 0.3-0.8 [facility] Comment on above: Performed By: #### C BC ####[facility] [address] [id number]. Jovanna Oneill Monocytes/100 WBC (Bld) 4.5 % Normal 1.7-12.0 [facility] Comment on above: Performed By: #### C BC ####[facility] [address] [id number]. Jovanna Oneill NEUT # 10.4 103/ul Critically high 1.4-6.5 [facility] Comment on above: Performed By: #### C BC ####[facility] [address] [id number]. Jovanna Oneill Neutrophils/100 WBC (Bld) 76.1 % Critically high 43.0-75.0 [facility] Comment on above: Performed By: #### C BC ####[facility] [address] [id number]. Jovanna Oneill Platelet mean volume (Bld) [Entitic vol] 10.9 fL Normal 9.5-13.5 [facility] Comment on above: Performed By: #### C BC ####[facility] [address] [id number]. Jovanna Oneill PLT 193 103/ul Normal 150-450 [facility] Comment on above: Performed By: #### C BC ####[facility] [address] [id number]. Jovanna Oneill RBC 4.00 106/ul Critically low 4.20-5.40 [facility] Comment on above: Performed By: #### C BC ####[facility] [address] [id number]. Jovanna Oneill WBC 13.7 103/ul Critically high 4.0-11.0 [facility] Comment on above: Performed By: #### C BC ####[facility] [address] [address]Dr. Jovanna Oneill FREE T4on 08-16-2022 Free T4 [Mass/Vol] 0.68 ng/dL Critically low 0.76-1.46 [facility] Comment on above: Performed By: #### L ACT #### [facility] [address] [place] [address] Dr. Jovanna Oneill HS-CRPon 08-16-2022 HS-CRP 1.04 mg/L Normal <=3.00 [facility] Comment on above: Performed By: #### L ACT #### [facility] [address] [place] [address] Dr. Jovanna Oneill PROF 14(COMP METB)on 022 Albumin [Mass/Vol] 3.5 g/dL Normal 3.4-5.0 [facility] Comment on above: Performed By: #### V ITB12 #### [facility] [address] [place] [address] Dr. Jovanna Oneill Albumin/Globulin [Mass ratio] 1.1 {ratio} Normal [facility] Comment on above: Performed By: #### V ITB12 #### [facility] [address] [place] [address] Dr. Jovanna Oneill ALP [Catalytic activity/Vol] 82 U/L Normal 46-116 [facility] Comment on above: Performed By: #### V ITB12 #### [facility] [address] [place] [address] Dr. Jovanna Oneill ALT [Catalytic activity/Vol] 17 U/L Normal 14-59 [facility] Comment on above: Performed By: #### V ITB12 #### [facility] [address] [address] [address] Jovanna Oneill Anion gap [Moles/Vol] 9.6 mmol/L Normal [facility] Comment on above: Performed By: #### V ITB12 #### [facility] [address] [place] [address] Dr. Jovanna Oneill AST [Catalytic activity/Vol] 17 U/L Normal 15-37 [facility] Comment on above: Performed By: #### V ITB12 #### [facility] [address] [address] [address] Jovanna Oneill Bilirubin [Mass/Vol] 0.4 mg/dL Normal 0.2-1.0 [facility] Comment on above: Performed By: #### V ITB12 #### [facility] [address] [place] [address] Dr. Jovanna Oneill Calcium [Mass/Vol] 8.7 mg/dL Normal 8.5-10.1 [facility] Comment on above: Performed By: #### V ITB12 #### [facility] [address] [place] [address] Dr. Jovanna Oneill Chloride [Moles/Vol] 105 mmol/L Normal 98-107 [facility] Comment on above: Performed By: #### V ITB12 #### [facility] [address] [place] [address] Dr. Jovanna Oneill CO2 [Moles/Vol] 30.9 mmol/L Normal 21.0-32.0 [facility] Comment on above: Performed By: #### V ITB12 #### [facility] [address] [place] [address] Dr. Jovanna Oneill Creatinine [Mass/Vol] 0.69 mg/dL Normal 0.55-1.02 [facility] Comment on above: Performed By: #### V ITB12 #### [facility] [address] [place] [address] Dr. Jovanna Oneill EGFR-AF LUXEMBOURGER >60 Normal >=60 [facility] Comment on above: Performed By: #### V ITB12 #### [facility] [address] [place] [address] Dr. Jovanna Oneill EGFR-NON AF LUXEMBOURGER >60 Normal >=60 [facility] Comment on above: Performed By: #### V ITB12 #### [facility] [address] [place] [address] Dr. Jovanna Oneill Globulin (S) [Mass/Vol] 3.1 g/dL Normal [facility] Comment on above: Performed By: #### V ITB12 #### [facility] [address] [address] [address] Jovanna Oneill Glucose [Mass/Vol] 84 mg/dL Normal 74-106 [facility] Comment on above: Performed By: #### V ITB12 #### [facility] [address] [address] [address] Jovanna Oneill Potassium [Moles/Vol] 3.5 mmol/L Normal 3.5-5.1 [facility] Comment on above: Performed By: #### V ITB12 #### [facility] [address] [place] [address] Dr. Jovanna Oneill Protein [Mass/Vol] 6.6 g/dL Normal 6.4-8.2 [facility] Comment on above: Performed By: #### V ITB12 #### [facility] [address] [place] [address] Dr. Jovanna Oneill Sodium [Moles/Vol] 142 mmol/L Normal 136-145 [facility] Comment on above: Performed By: #### V ITB12 #### [facility] [address] [place] [address] Dr. Jovanna Oneill Urea nitrogen [Mass/Vol] 7.0 mg/dL Normal 7.0-18.0 [facility] Comment on above: Performed By: #### V ITB12 #### [facility] [address] [place] [address] Dr. Jovanna Oneill Urea nitrogen/Creatinine [Mass ratio] 10.1 mg/mg Normal [facility] Comment on above: Performed By: #### V ITB12 #### [facility] [address] [place] [address] Dr. Jovanna Oneill PROF CHEM 8 (BAS METB)on Anion gap [Moles/Vol] 8.5 mmol/L Normal [facility] Comment on above: Performed By: #### L ACT #### [facility] [address] [place] [address] Dr. Jovanna Oneill Calcium [Mass/Vol] 8.3 mg/dL Critically low 8.5-10.1 [facility] Comment on above: Performed By: #### L ACT #### [facility] [address] [address] [address] Jovanna Oneill Chloride [Moles/Vol] 105 mmol/L Normal 98-107 [facility] Comment on above: Performed By: #### L ACT #### [facility] [address] [address] [address] Jovanna Oneill CO2 [Moles/Vol] 28.4 mmol/L Normal 21.0-32.0 [facility] Comment on above: Performed By: #### L ACT #### [facility] [address] [address] [address] Jovanna Oneill Creatinine [Mass/Vol] 0.72 mg/dL Normal 0.55-1.02 [facility] Comment on above: Performed By: #### L ACT #### [facility] [address] [address] [address] Jovanna Oneill EGFR-AF LUXEMBOURGER >60 Normal >=60 [facility] Comment on above: Performed By: #### L ACT #### [facility] [address] [address] [address] Jovanna Oneill EGFR-NON AF LUXEMBOURGER >60 Normal >=60 [facility] Comment on above: Performed By: #### L ACT #### [facility] [address] [address] [address] Jovanna Oneill Glucose [Mass/Vol] 242 mg/dL Critically high 74-106 [facility] Comment on above: Performed By: #### L ACT #### [facility] [address] [address] [address] Jovanna Oneill Potassium [Moles/Vol] 2.9 mmol/L Critically low 3.5-5.1 [facility] Comment on above: Performed By: #### L ACT #### [facility] [address] [address] [address] Jovanna Oneill Sodium [Moles/Vol] 138 mmol/L Normal 136-145 [facility] Comment on above: Performed By: #### L ACT #### [facility] [address] [place], [place] [address] Dr. Jovanna Oneill Urea nitrogen [Mass/Vol] 5.0 mg/dL Critically low 7.0-18.0 [facility] Comment on above: Performed By: #### L ACT #### [facility] [address] [place], [place] [address] Dr. Jovanna Oneill Urea nitrogen/Creatinine [Mass ratio] 6.9 mg/mg Normal [facility] Comment on above: Performed By: #### L ACT #### [facility] [address] [place], [place] [address] Dr. Jovanna Oneill TSHon 08-16-2022 TSH 4.977 uIU/mL Critically high 0.358-3.740 [facility] Comment on above: Performed By: #### V [id number] #### [facility] [address] [address] ABD/PELVIS WO CONon [...] Ayaka LEON Date: 2022-05-02 03:06 Normal [facility] DRUG SCREEN RAPID (URINE)on 05-02-2022 AMP Negative Normal NEGATIVE [facility] Comment on above: Performed By: #### L ACT #### [facility] [address] [address] [address] Jovanna Oneill BAR Negative Normal NEGATIVE [facility] Comment on above: Performed By: #### L ACT #### [facility] [address] [address] [address] Jovanna Oneill BUP Negative Normal NEGATIVE [facility] Comment on above: Performed By: #### L ACT #### [facility] [address] [place] [address] Dr. Jovanna Oneill BZO Negative Normal NEGATIVE [facility] Comment on above: Performed By: #### L ACT #### [facility] [address] [place] [address] Dr. Jovanna Oneill CARA Negative Normal NEGATIVE [facility] Comment on above: Performed By: #### L ACT #### [facility] [address] [place] [address] Dr. Jovanna Oneill CUT-OFFS SEE BELOW Normal [facility] Comment on above: Result Comment: AMP (Amphetamine): 500ng/mL, BAR (Barbituates): 200 ng/mL, BZO (Benzodiazepines): 150 ng/mL, BUP (Buprenorphine): 10 ng/mL, CARA (Cocaine): 150 ng/mL, mAMP (Methamphetamine): 500 ng/mL, MTD (Methadone): 200 ng/mL, OPI (Opiates): 100 ng/mL, OXY (Oxycodone): 100 ng/mL, PCP (Phencyclidine): 25 ng/mL, PPX (Propoxyphene): 300 ng/mL, THC (Cannabinoids): 50 ng/mL, TCA (Trycyclic Antidepressants): 300 ng/mL Performed By: #### L ACT #### [facility] [address] [place] [address] Dr. Jovanna Oneill DRUG CUT HEADER DRUG CLASS TEST SYSTEM CUT-OFF CONCENTRATIONS ARE FOLLOWS: Normal [facility] Comment on above: Performed By: #### L ACT #### [facility] [address] [address] [address] Jovanna Oneill mAMP Negative Normal NEGATIVE [facility] Comment on above: Performed By: #### L ACT #### [facility] [address] [address] [address] Jovanna Oneill MTD Negative Normal NEGATIVE [facility] Comment on above: Performed By: #### L ACT #### [facility] [address] [address] [address] Jovanna Oneill OPI Positive Abnormal NEGATIVE [facility] Comment on above: Performed By: #### L ACT #### [facility] [address] [place] [address] Dr. Jovanna Oneill OXY Negative Normal NEGATIVE [facility] Comment on above: Performed By: #### L ACT #### [facility] [address] [place] [address] Dr. Jovanna Oneill PCP Negative Normal NEGATIVE [facility] Comment on above: Performed By: #### L ACT #### [facility] [address] [address] [address] Jovanna Oneill PPX Negative Normal NEGATIVE [facility] Comment on above: Performed By: #### L ACT #### [facility] [address] [place] [address] Dr. Jovanna Oneill TCA Negative Normal NEGATIVE [facility] Comment on above: Performed By: #### L ACT #### [facility] [address] [place] [address] Dr. Jovanna Oneill THC Positive Abnormal NEGATIVE [facility] Comment on above: Performed By: #### L ACT #### [facility] [address] [place] [address] Dr. Jovanna Oneill ER URINE PROFILEon 2 Bilirubin Ql (U) Negative Normal NEGATIVE [facility] Comment on above: Performed By: #### L ACT #### [facility] [address] [place] [address] Dr. Jovanna Oneill Clarity (U) CLEAR Normal CLEAR [facility] Comment on above: Performed By: #### L ACT #### [facility] [address] [place] [address] Dr. Jovanna Oneill Color (U) LT. YELLOW Normal YELLOW [facility] Comment on above: Performed By: #### L ACT #### [facility] [address] [place] [address] Dr. Jovanna Oneill ERUSTACEY A micrscopic examination will be performed if indicated. Normal [facility] Comment on above: Performed By: #### L ACT #### [facility] [address] [place] [address] Dr. Jovanna Oneill Glucose Ql (U) Negative Normal NEGATIVE [facility] Comment on above: Performed By: #### L ACT #### [facility] [address] [place] [address] Dr. Jovanna Oneill Hemoglobin Ql (U) Negative Normal NEGATIVE [facility] Comment on above: Performed By: #### L ACT #### [facility] [address] [place] [address] Dr. Jovanna Oneill Ketones Ql (U) Negative Normal NEGATIVE [facility] Comment on above: Performed By: #### L ACT #### [facility] [address] [place] [address] Dr. Jovanna Oneill LEUKOCYTES Negative Normal NEGATIVE [facility] Comment on above: Performed By: #### L ACT #### [facility] [address] [place] [address] Dr. Jovanna Oneill Nitrite Ql (U) Negative Normal NEGATIVE [facility] Comment on above: Performed By: #### L ACT #### [facility] [address] [place] [address] Dr. Jovanna Oneill pH (U) 6.0 [pH] Normal 5-9 [facility] Comment on above: Performed By: #### L ACT #### [facility] [address] [place] [address] Dr. Jovanna Oneill SPEC GRAVITY <=1.005 Abnormal 1.005-<=1.025 [facility] Comment on above: Performed By: #### L ACT #### [facility] [address] [place], [place] [id number] Dr. Jovanna Oneill UA PROTEIN Negative Normal NEGATIVE/ TRACE [facility] Comment on above: Performed By: #### L ACT #### [facility] [address] [place] [address] Dr. Jovanna Oneill UR MICRO IND NOT INDICATED Normal [facility] Comment on above: Performed By: #### L ACT #### [facility] [address] [place] [address] Dr. Jovanna Oneill Urobilinogen Qn (U) 0.2 {Isabella'U}/dL Normal 0.2 - 1. 0 [facility] Comment on above: Performed By: #### L ACT #### [facility] [address] [place] [address] Dr. Jovanna Oneill CBC AUTO DIFFon 04-20-2022 BASO # 0.0 103/ul Normal 0.0-0.1 [facility] Comment on above: Performed By: #### L ACT #### [facility] [address] [place] [address] Dr. Jovanna Oneill Basophils/100 WBC (Bld) 0.1 % Critically low 0.2-2.0 [facility] Comment on above: Performed By: #### L ACT #### [facility] [address] [place] [address] Dr. Jovanna Oneill EO # 0.0 103/ul Normal 0.0-0.7 [facility] Comment on above: Performed By: #### L ACT #### [facility] [address] [place] [address] Dr. Jovanna Oneill Eosinophils/100 WBC (Bld) 0.1 % Critically low 0.9-7.0 [facility] Comment on above: Performed By: #### L ACT #### [facility] [address] [place] [address] Dr. Jovanna Oneill Erythrocyte distribution width (RBC) [Ratio] 12.6 % Normal 11.0-15.0 [facility] Comment on above: Performed By: #### L ACT #### [facility] [address] [place] [address] Dr. Jovanna Oneill Hematocrit (Bld) [Volume fraction] 38.8 % Normal 36.0-48.0 [facility] Comment on above: Performed By: #### L ACT #### [facility] [address] [address] [address] Jovanna Oneill Hemoglobin (Bld) [Mass/Vol] 12.6 g/dL Normal 12.0-16.0 [facility] Comment on above: Performed By: #### L ACT #### [facility] [address] [address] [address] Jovanna Oneill IG # 0.13 10e3/ul Critically high 0.00-0.03 [facility] Comment on above: Performed By: #### L ACT #### [facility] [address] [place] [address] Dr. Jovanna Oneill IG % 1.0 % Critically high 0.0-0.5 [facility] Comment on above: Performed By: #### L ACT #### [facility] [address] [address] [address] Jovanna Oneill LYMPH # 1.1 103/ul Critically low 1.2-3.8 [facility] Comment on above: Performed By: #### L ACT #### [facility] [address] [place] [address] Dr. Jovanna Oneill Lymphocytes/100 WBC (Bld) 8.3 % Critically low 20.5-60.0 [facility] Comment on above: Performed By: #### L ACT #### [facility] [address] [address] [address] Jovanna Oneill MANUAL DIFF REQ NO Normal [facility] Comment on above: Performed By: #### L ACT #### [facility] [address] [address] [address] Jovanna Oneill MCH (RBC) [Entitic mass] 31.0 pg Normal 26.7-34.0 [facility] Comment on above: Performed By: #### L ACT #### [facility] [address] [place] [address] Dr. Jovanna Oneill MCHC (RBC) [Mass/Vol] 32.5 g/dL Normal 29.9-35.2 [facility] Comment on above: Performed By: #### L ACT #### [facility] [address] [place] [address] Dr. Jovanna Oneill MCV (RBC) [Entitic vol] 95.3 fL Normal 81.0-99.0 [facility] Comment on above: Performed By: #### L ACT #### [facility] [address] [address] [address] Jovanna Oneill MONO # 0.8 103/ul Normal 0.3-0.8 [facility] Comment on above: Performed By: #### L ACT #### [facility] [address] [place] [address] Dr. Jovanna Oneill Monocytes/100 WBC (Bld) 5.8 % Normal 1.7-12.0 [facility] Comment on above: Performed By: #### L ACT #### [facility] [address] [address] [address] Jovanna Oneill NEUT # 11.4 103/ul Critically high 1.4-6.5 [facility] Comment on above: Performed By: #### L ACT #### [facility] [address] [place] [address] Dr. Jovanna Oneill Neutrophils/100 WBC (Bld) 84.7 % Critically high 43.0-75.0 [facility] Comment on above: Performed By: #### L ACT #### [facility] [address] [address] [address] Jovanna Oneill Platelet mean volume (Bld) [Entitic vol] 10.1 fL Normal 9.5-13.5 [facility] Comment on above: Performed By: #### L ACT #### [facility] [address] [place] [address] Dr. Jovanna Oneill PLT 205 103/ul Normal 150-450 [facility] Comment on above: Performed By: #### L ACT #### [facility] [address] [place] [address] Dr. Jovanna Oneill RBC 4.07 106/ul Critically low 4.20-5.40 [facility] Comment on above: Performed By: #### L ACT #### [facility] [address] [address] [address] Jovanna Oneill WBC 13.4 103/ul Critically high 4.0-11.0 [facility] Comment on above: Performed By: #### L ACT #### [facility] [address] [address] [address] Jovanna Oneill DRUG SCREEN RAPID (URINE)on 04-20-2022 AMP Negative Normal NEGATIVE [facility] Comment on above: Performed By: #### U MICRO, ERUR, DRUGRPD ####[facility] [address] [address]Dr. Jovanna Oneill BAR Negative Normal NEGATIVE [facility] Comment on above: Performed By: #### U MICRO, ERUR, DRUGRPD ####[facility] [address] [address]Dr. Jovanna Oneill BUP Negative Normal NEGATIVE [facility] Comment on above: Performed By: #### U MICRO, ERUR, DRUGRPD ####[facility] [address] [address]Dr. Jovanna Oneill BZO Negative Normal NEGATIVE [facility] Comment on above: Performed By: #### U MICRO, ERUR, DRUGRPD ####[facility] [address] [address]Dr. Jovanna Oneill CARA Negative Normal NEGATIVE [facility] Comment on above: Performed By: #### U MICRO, ERUR, DRUGRPD ####[facility] [address] [address]Dr. Jovanna Oneill CUT-OFFS SEE BELOW Normal [facility] Comment on above: Result Comment: AMP (Amphetamine): [...] Performed By: #### U MICRO, ERUR, DRUGRPD ####[facility] [address] [address]Dr. Jovanna Oneill DRUG CUT HEADER DRUG CLASS TEST SYSTEM CUT-OFF CONCENTRATIONS ARE FOLLOWS: Normal [facility] Comment on above: Performed By: #### U MICRO, ERUR, DRUGRPD ####[facility] [address] [place], [place] [address]Dr. Jovanna Oneill mAMP Negative Normal NEGATIVE [facility] Comment on above: Performed By: #### U MICRO, ERUR, DRUGRPD ####[facility] [address] [place], [place] [address]Dr. Jovanna Oneill MTD Negative Normal NEGATIVE [facility] Comment on above: Performed By: #### U MICRO, ERUR, DRUGRPD ####[facility] [address] [place], [place] [address]Dr. Jovanna Oneill OPI Positive Abnormal NEGATIVE [facility] Comment on above: Performed By: #### U MICRO, ERUR, DRUGRPD ####[facility] [address] [place], [place] [address]Dr. Jovanna Oneill OXY Negative Normal NEGATIVE [facility] Comment on above: Performed By: #### U MICRO, ERUR, DRUGRPD ####[facility] [address] [place], [place] [address]Dr. Jovanna Oneill PCP Negative Normal NEGATIVE [facility] Comment on above: Performed By: #### U MICRO, ERUR, DRUGRPD ####[facility] [address] [place], [place] [address]Dr. Jovanna Oneill PPX Negative Normal NEGATIVE [facility] Comment on above: Performed By: #### U MICRO, ERUR, DRUGRPD ####[facility] [address] [place], [place] [address]Dr. Jovanna Oneill TCA Negative Normal NEGATIVE [facility] Comment on above: Performed By: #### U MICRO, ERUR, DRUGRPD ####[facility] [address] [address]Dr. Jovanna Oneill THC Positive Abnormal NEGATIVE [facility] Comment on above: Performed By: #### U MICRO, ERUR, DRUGRPD ####[facility] [address] [address]Dr. Jovanna Oneill ER URINE PROFILEon 2 Bilirubin Ql (U) Negative Normal NEGATIVE [facility] Comment on above: Performed By: #### U MICRO, ERUR, DRUGRPD ####[facility] [address] [place], [place] [address]Dr. Jovanna Oneill Clarity (U) CLEAR Normal CLEAR [facility] Comment on above: Performed By: #### U MICRO, ERUR, DRUGRPD ####[facility] [address] [place], [place] [address]Dr. Jovanna Oneill Color (U) LT. YELLOW Normal YELLOW [facility] Comment on above: Performed By: #### U MICRO, ERUR, DRUGRPD ####[facility] [address] [place], [place] [address]Dr. Jovanna Oneill ERUAHD A micrscopic examination will be performed if indicated. Normal [facility] Comment on above: Performed By: #### U MICRO, ERUR, DRUGRPD ####[facility] [address] [place], [place] [address]Dr. Jovanna Oneill Glucose Ql (U) >1000 Abnormal NEGATIVE [facility] Comment on above: Performed By: #### U MICRO, ERUR, DRUGRPD ####[facility] [address] [place], [place] [address]Dr. Jovanna Oneill Hemoglobin Ql (U) Negative Normal NEGATIVE [facility] Comment on above: Performed By: #### U MICRO, ERUR, DRUGRPD ####[facility] [address] [place], [place] [address]Dr. Jovanna Oneill Ketones Ql (U) Negative Normal NEGATIVE [facility] Comment on above: Performed By: #### U MICRO, ERUR, DRUGRPD ####[facility] [address] [address]Dr. Jovanna Oneill LEUKOCYTES Negative Normal NEGATIVE [facility] Comment on above: Performed By: #### U MICRO, ERUR, DRUGRPD ####[facility] [address] [address]Dr. Jovanna Oneill Nitrite Ql (U) Negative Normal NEGATIVE [facility] Comment on above: Performed By: #### U MICRO, ERUR, DRUGRPD ####[facility] [address] [address]Dr. Jovanna Oneill pH (U) 6.5 [pH] Normal 5-9 [facility] Comment on above: Performed By: #### U MICRO, ERUR, DRUGRPD ####[facility] [address] [address]Dr. Jovanna Oneill Protein (U) [Mass/Vol] 30 mg/dL Abnormal NEGATIVE/ TRACE [facility] Comment on above: Performed By: #### U MICRO, ERUR, DRUGRPD ####[facility] [address] [place], [place] [address]Dr. Jovanna Oneill SPEC GRAVITY 1.015 Normal 1.005-<=1.025 [facility] Comment on above: Performed By: #### U MICRO, ERUR, DRUGRPD ####[facility] [address] [address]Dr. Jovanna Oneill UR MICRO IND INDICATED Normal [facility] Comment on above: Performed By: #### U MICRO, ERUR, DRUGRPD ####[facility] [address] [address]Dr. Jovanna Oneill Urobilinogen Qn (U) 1.0 {Isabella'U}/dL Normal 0.2 - 1. 0 [facility] Comment on above: Performed By: #### U MICRO, ERUR, DRUGRPD ####[facility] [address] [address]Dr. Jovanna Oneill LACTATE/LACTIC ACIDon 06-09- 2022 Lactate [Moles/Vol] 1.7 mmol/L Normal 0.4-1.9 [facility] Comment on above: Performed By: #### L ACT #### [facility] [address] [place] [address] Dr. Jovanna Oneill PROF 14(COMP METB)on 022 Albumin [Mass/Vol] 3.4 g/dL Normal 3.4-5.0 [facility] Comment on above: Performed By: #### V ITB12 #### [facility] [address] [place] [address] Dr. Jovanna Oneill Albumin/Globulin [Mass ratio] 1.1 {ratio} Normal [facility] Comment on above: Performed By: #### V ITB12 #### [facility] [address] [place] [address] Dr. Jovanna Oneill ALP [Catalytic activity/Vol] 99 U/L Normal 46-116 [facility] Comment on above: Performed By: #### V ITB12 #### [facility] [address] [place] [address] Dr. Jovanna Oneill ALT [Catalytic activity/Vol] 32 U/L Normal 14-59 [facility] Comment on above: Performed By: #### V ITB12 #### [facility] [address] [place] [address] Dr. Jovanna Oneill Anion gap [Moles/Vol] 10.0 mmol/L Normal [facility] Comment on above: Performed By: #### V ITB12 #### [facility] [address] [place] [address] Dr. Jovanna Oneill AST [Catalytic activity/Vol] 38 U/L Critically high 15-37 [facility] Comment on above: Performed By: #### V ITB12 #### [facility] [address] [place] [address] Dr. Jovanna Oneill Bilirubin [Mass/Vol] 0.8 mg/dL Normal 0.2-1.0 [facility] Comment on above: Performed By: #### V ITB12 #### [facility] [address] [address] [address] Jovanna Oneill Calcium [Mass/Vol] 8.1 mg/dL Critically low 8.5-10.1 [facility] Comment on above: Performed By: #### V ITB12 #### [facility] [address] [place] [address] Dr. Jovanna Oneill Chloride [Moles/Vol] 102 mmol/L Normal 98-107 [facility] Comment on above: Performed By: #### V ITB12 #### [facility] [address] [place] [address] Dr. Jovanna Oneill CO2 [Moles/Vol] 31.1 mmol/L Normal 21.0-32.0 [facility] Comment on above: Performed By: #### V ITB12 #### [facility] [address] [place] [address] Dr. Jovanna Oneill Creatinine [Mass/Vol] 0.78 mg/dL Normal 0.55-1.02 [facility] Comment on above: Performed By: #### V ITB12 #### [facility] [address] [place] [address] Dr. Jovanna Oneill EGFR-AF LUXEMBOURGER >60 Normal >=60 [facility] Comment on above: Performed By: #### V ITB12 #### [facility] [address] [place] [address] Dr. Jovanna Oneill EGFR-NON AF LUXEMBOURGER >60 Normal >=60 [facility] Comment on above: Performed By: #### V ITB12 #### [facility] [address] [place] [address] Dr. Jovanna Oneill Globulin (S) [Mass/Vol] 3.2 g/dL Normal [facility] Comment on above: Performed By: #### V ITB12 #### [facility] [address] [place] [address] Dr. Jovanna Oneill Glucose [Mass/Vol] 251 mg/dL Critically high 74-106 [facility] Comment on above: Performed By: #### V ITB12 #### [facility] [address] [place] [address] Dr. Jovanna Oneill Potassium [Moles/Vol] 3.1 mmol/L Critically low 3.5-5.1 [facility] Comment on above: Performed By: #### V ITB12 #### [facility] [address] [address] [address] Jovanna Oneill Protein [Mass/Vol] 6.6 g/dL Normal 6.4-8.2 [facility] Comment on above: Performed By: #### V ITB12 #### [facility] [address] [address] [address] Jovanna Oneill Sodium [Moles/Vol] 140 mmol/L Normal 136-145 [facility] Comment on above: Performed By: #### V ITB12 #### [facility] [address] [address] [address] Jovanna Oneill Urea nitrogen [Mass/Vol] 8.0 mg/dL Normal 7.0-18.0 [facility] Comment on above: Performed By: #### V ITB12 #### [facility] [address] [address] [address] Jovanna Oneill Urea nitrogen/Creatinine [Mass ratio] 10.3 mg/mg Normal [facility] Comment on above: Performed By: #### V ITB12 #### [facility] [address] [address] [address] Jovanna Oneill TROPONIN, HIGH SENSITIVITYon 04-20-2022 HSTROP 13.8 pg/mL Normal 4.0-51.3 [facility] Comment on above: Result Comment: CUT- OFF POINTS HAVE BEEN ESTABLISHED BASED ON THE FOURTH UNIVERSAL DEFINITIONS OF MYOCARDIAL INFARCTION. THE UPPER REFERENCE LIMIT (URL) OF TROPONIN, DEFINED THE 99TH PERCENTILE OF cTnI DISTRIBUTION IN A REFERENCE POPULATION, HAS BEEN CONFIRMED THE DECISION THRESHOLD FOR PR DIAGNOSIS. Performed By: #### V ITB12 #### [facility] [address] [address] [address] Jovanna Oneill URINE MICROSCOPIC ONLYon BACTERIA TRACE Abnormal NONE SEEN [facility] Comment on above: Performed By: #### U MICRO, ERUR, DRUGRPD ####[facility] [address] [address]Dr. Jovanna Oneill Bacteria identified Cx Nom (U) NOT INDICATED Normal [facility] Comment on above: Performed By: #### U MICRO, ERUR, DRUGRPD ####[facility] [address] [address]Dr. Jovanna Oneill CAST SEEN Abnormal NONE SEEN [facility] Comment on above: Performed By: #### U MICRO, ERUR, DRUGRPD ####[facility] [address] [address]Dr. Jovanna Oneill Crystals LM Nom (Urine sed) NONE SEEN Normal NONE SEEN [facility] Comment on above: Performed By: #### U MICRO, ERUR, DRUGRPD ####[facility] [address] [address]Dr. Jovanna Oneill Epithelial cells LM Ql (Urine sed) FEW Abnormal NONE SEEN /RARE [facility] Comment on above: Performed By: #### U MICRO, ERUR, DRUGRPD ####[facility] [address] [address]Dr. Jovanna Oneill HYALINE CAST FEW Normal [facility] Comment on above: Performed By: #### U MICRO, ERUR, DRUGRPD ####[facility] [address] [address]Dr. Jovanna Oneill MUCOUS NONE SEEN Normal NONE SEEN [facility] Comment on above: Performed By: #### U MICRO, ERUR, DRUGRPD ####[facility] [address] [address]Dr. Jovanna Oneill RBC 0-2 Normal 0-2 [facility] Comment on above: Performed By: #### U MICRO, ERUR, DRUGRPD ####[facility] [address] [address]Dr. Jovanna Oneill WBC 0-2 Abnormal NONE SEEN [facility] Comment on above: Performed By: #### U MICRO, ERUR, DRUGRPD ####[facility] [address] [address]DrJhony Oneill XR CHEST 1 Von 04-20-2022 XR [...] by: Ayaka LEON Date: 2022-04-20 02:33 Normal [facility] XR ANKLE RT MIN 3 VIEWSon [...] by: KOBE HICKEY Date: 2022-03-26 09:41 Normal [facility] Vital Signs Date Time Vital Sign Value Performing Clinician Felicia hunt 08-13-2024 12:24-0400 Body height 154.94 cm PHYSICIAN NO [facility] 08-13-2024 12:24-0400 Body temperature 97.8 [degF] PHYSICIAN NO [facility] 08-13-2024 12:24-0400 Body weight 48 kg PHYSICIAN NO [facility] 08-13-2024 12:24-0400 Diastolic blood pressure 98 mm[Hg] PHYSICIAN NO [facility] 08-13-2024 12:24-0400 Heart rate 84 /min PHYSICIAN NO [facility] 08-13-2024 12:24-0400 Respiratory rate 18 /min PHYSICIAN NO [facility] 08-13-2024 12:24-0400 SaO2% (BldA) [Mass fraction] 98 % PHYSICIAN NO [facility] 08-13-2024 12:24-0400 Systolic blood pressure 160 mm[Hg] PHYSICIAN NO [facility] Encounters Encounter Date Encounter Type Care Provider Facility Start: 08-13-2024 End: 08-13-2024 Emergency department patient visit PHYSICIAN NO [facility] Work Phone: Start: 07-10-2024 End: 07-11-2024 ambulatory Vikram Mckenna MD Facility:[facility] Start: 06-30-2024 End: 07-02-2024 ambulatory [facility] Start: 06-09-2024 End: 06-11-2024 ambulatory [facility] Start: 05-26-2024 ambulatory [facility] Start: 05-26-2024 Encounter for other preprocedural examination [facility] Start: 05-22-2024 Non-patient / Non-visit PHYSICIAN NO [facility] Work Phone: Start: 03-23-2023 End: 03-23-2023 [...] FALCON Facility :[facility] Start: 10-03-2022 End: 10-04-2022 ambulatory TATUM SHAMMO Facility:[facility] Start: 09-14-2022 Encounter for genera l adult medical examination without abnormal findings TATUM SHAMMO [facility] Start: 09-12-2022 End: 09-13-2022 ambulatory TATUM SHAMMO Facility:[facility] Start: 09-12-2022 End: 09-13-2022 Encounter for general adult medical examination without abnormal findings TATUM SHAMMO Facility:[facility] Start: 08-29-2022 End: 08-30-2022 ambulatory TATUM SHAMMO Facility:[facility] Start: 08-24-2022 End: 08-24-2022 ambulatory TATUM SHAMMO Facility:[facility] Start: 08-16-2022 End: 08-17-2022 ambulatory TATUM SHAMMO Facility:[facility] Start: 08-16-2022 End: 08-17-2022 ambulatory CAROL ANN ALIA Facility:[facility] Start: 06-22-2022 End: 06-22-2022 ambulatory [facility] Facility:[facility] Start: 05-02-2022 End: 05-02-2022 ambulatory [facility] Facility:[facility] Start: 04-20-2022 End: 04-20-2022 ambulatory CAROL ANN ALIA Facility:[facility] Start: 03-26-2022 End: 03-26-2022 ambulatory DARRIN ANA . Facility: Plan of Treatment Date Care Activity Detail Author Patient Education Managing acute pain at home [facility] Work Phone: Patient referral [facility] Work Phone: Payers Date Payer Category Payer Self-pay 2024 Unknown 1975 Unknown [id number] 2.16.8 40.1.520957.3.579.2.727 1973 Unknown [id number] 2.16.8 40.1.705188.3.579.2.727 1973 Unknown [id number] 2.16.84 0.1.082296.3.579.2.593 1973 Unknown [id number] 2.16.84 0.1.900343.3.579.2.593 1973 Unknown [id number] 2.16.84 0.1.370918.3.579.2.593 1973 Unknown [id number] 2.16.84 0.1.631914.3.579.2.593 1973 Unknown [id number] 2.16.84 0.1.125712.3.579.2.593 1973 Unknown [id number] 2.16.84 0.1.850709.3.579.2.593 1973 Unknown [id number] 2.16.84 0.1.870738.3.579.2.593 1973 Unknown [id number] 2.16.84 0.1.354681.3.579.2.593 1973 Unknown [id number] 2.16.84 0.1.280279.3.579.2.593 1973 Unknown [id number] 2.16.84 0.1.442401.3.579.2.593 1973 Unknown [id number] 2.16.84 0.1.801220.3.579.2.593 1973 Unknown [id number] 2.16.84 0.1.855297.3.579.2.593 1973 Unknown [id number] 2.16.84 0.1.628150.3.579.2.593 1973 Unknown [id number] 2.16.84 0.1.909600.3.579.2.593 1973 Unknown [id number] 2.16.84 0.1.506941.3.579.2.593 1973 Unknown [id number] 2.16.84 0.1.225567.3.579.2.593 1973 Unknown [id number] 2.16.84 0.1.287908.3.579.2.593 1973 Unknown [id number] 2.16.84 0.1.510333.3.579.2.593 1973 Unknown [id number] 2.16.84 0.1.562609.3.579.2.593 1973 Unknown [id number] 2.16.84 0.1.380104.3.579.2.593 1973 Unknown [id number] 2.16.84 0.1.075664.3.579.2.593 1973 Unknown [id number] 2.16.84 0.1.386678.3.579.2.593 1973 Unknown [id number] 2.16.8 40.1.580186.3.579.2.174 1973 Unknown [id number] 2.16.8 40.1.496158.3.579.2.174 1973 Unknown [id number] 2.16.8 40.1.520416.3.579.2.174 1973 Unknown [id number] 2.16.8 40.1.780609.3.579.2.174 1973 Unknown [id number] 2.16.8 40.1.966606.3.579.2.174 1973 Unknown [id number] 2.16. 840.1.245735.3.579.2.196 1959 Self-pay [id number] 1959 Unknown [id number] 1959 Unknown [id number] Unknown [id number] 2.16.8 40.1.272935.3.579.2.531 Social History Date Type Detail Facility Start: 08-13-2024 [facility] Start: 1975 Sex Assigned At Female F [facility] Discharge summary note 07-11-2024 Note Date & [...] less than 30 minutes Medications New Medications [employer], [address], [place] [id number], [phone] cefdinir (cefdinir 300 mg oral capsule) 1 [...] by Vikram Mckenna MD 07/11/24 11:37 EDT [facility] History and physical note 07-10-2024 Note Date [...] this time too much in pain --will 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 [id number] [id number] [id number] [id number] [id number] Raul Davidson MD PhD (Electronically signed by) Verified: 07/16/24 13:53 [facility] Comment on above: Performed By: #### [facility] #### [facility] (DEFAULT) [address] [place] [address] [facility] [address] [place] [address] Clinical Note 03-05-2023 Note Date & Type [...] by: FRANCES AGUSTIN Date: 2023-03-05 11:36 [facility] Clinical Note 08-30-2022 Note Date & Type [...] by: FRANCES AGUSTIN Date: 2022-08-30 10:20 [facility] Clinical Note 08-30-2022 Note Date & Type [...] by: FRANCES AGUSTIN Date: 2022-08-30 10:20 [facility] Clinical Note 06-22-2022 Note Date & Type [...] authenticated by: RJ YANEZ Date: 2022-06-22 07:13 [facility] Clinical Note 06-22-2022 Note Date & [...] authenticated by: RJ YANEZ Date: 2022-06-22 07:13 [facility] Evaluation note Note Date & Type Note Facility Evaluation note No assessment information availa ble [facility] Work Phone: Hospital Discharge instructions Note Date & Type Note Facility Hospital Discharge instructions Additional Instructions Follow-up with your surgeon for further evaluation or pain medication. [facility] Work Phone: Summary Purpose Family [...] and content) DATE CREATED AUTHOR [facility]20[facility] DATE CREATED AUTHOR AUTHOR'S ORGANIZ ATION 03/24/2023 [facility] DATE CREATED AUTHOR AUTHOR'S ORGANIZ ATION 07/04/2024 Astrid ruiz DATE CREATED AUTHOR AUTHOR'S ORGANIZ ATION 08/28/2024 [facility] DATE CREATED AUTHOR AUTHOR'S ORGANIZ ATION 11/07/2024 [facility] Care Teams (unrecognized sec tion and content) [...] BE BASED ON THE PRIMARY CLINICAL RECORDS. [employer] provides no warranty or guarantee of the accuracy or completeness of information in this document.
--- NOTE | 2025-01-01 18:22 | ECG_ITS ---
[facility] Date: 2025-01-01 Pat Name: SULY THORNE Department: Room: - Gender: Female [employer] Head: : 1975 Requested By: Order Number: [id number] Reading MD: JAMEY LAY Measurements Intervals [place] Rate: 64 P: 60 NV: 116 QRS: 82 QRSD: 94 T: 72 QT: 392 QTc: 402 Interpretive Statements 1100 Sinus rhythm 2210 Short NV interval 0102 ARTIFACT PRESENT 9150 abnormal ECG Compared to ECG 06/02/2024 08:42:22 Short NV interval now present Electronically Signed On 01-02-2025 6:48:57 EST by JAMEY LAY
[2025-01-01 18:24] VITALS: TEMP 36.9
--- NOTE | 2025-01-01 18:28 | ED.GENADUL1 ---
Documented by User: Lester Bowling MD 01/01/25 18:39 HPI HPI - General Adult General Chief complaint: Shortness of Breath/Dyspnea Stated complaint: SHORTNESS OF BREATH Time Seen by Provider: 01/01/25 18:18 Source: patient Mode of arrival: Wheelchair Limitations: no limitations History of Present Illness HPI narrative: Patient presents to the emergency department complaining of severe shortness of breath. She states her chest also hurts and she has a cough. 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 Related Data Home Medications ?Medication ?Instructions ?Recorded ?Confirmed budesonide-formoterol HFA 80 2 puff inhalation Q12H 01/01/25 01/01/25 mcg-4.5 mcg/actuation aerosol inhaler (Symbicort) gabapentin 300 mg capsule 300 mg PO DAILY 01/01/25 01/01/25 Previous Rx's ?Medication ?Instructions ?Recorded dicyclomine 20 mg tablet 20 mg PO TID PRN abdominal pain #7 12/05/24 tabs ondansetron 4 mg disintegrating 4 mg PO Q4H PRN nausea and 12/05/24 tablet vomiting 3 days #6 tabs albuterol sulfate 90 mcg/actuation 2 inh inhalation Q4H PRN shortness 01/01/25 aerosol inhaler of breath or wheezing 7 days #8.5 grams Allergies Allergy/AdvReac Type Severity Reaction Status Date / Time No Known Drug Allergies Allergy Verified 01/01/25 18:16 Opioid HPI Opioid Management Most Recent Opioid Data: Last Pain Scale 8 12/05/24 21:35 12/05/24 Review of Systems ROS Status of ROS 10 or more systems reviewed and unremarkable except as noted in history and below [facility] Medical History Full dentures ?Z97.2 - Presence of dental prosthetic device (complete) (partial) (ICD-10) ?K08.109 - Complete loss of teeth, unspecified cause, unspecified class (ICD-10) Neck pain ?M54.2 - Cervicalgia (ICD-10) Depression ?F32.A - Depression, unspecified (ICD-10) Anxiety ?F41.9 - Anxiety disorder, unspecified (ICD-10) Asthma ?J45.909 - Unspecified asthma, uncomplicated (ICD-10) Chronic obstructive pulmonary disease ?J44.9 - Chronic obstructive pulmonary disease, unspecified (ICD-10) Migraine ?G43.909 - Migraine, unspecified, not intractable, without status migrainosus (ICD-10) Kidney stones ?N20.0 - Calculus of kidney (ICD-10) GERD (gastroesophageal reflux disease) ?K21.9 - Gastro-esophageal reflux disease without esophagitis (ICD-10) Hypothyroidism ?E03.9 - Hypothyroidism, unspecified (ICD-10) Hiatal hernia ?K44.9 - Diaphragmatic hernia without obstruction or gangrene (ICD-10) Colon polyp ?K63.5 - Polyp of colon (ICD-10) Ovarian cyst ?N83.209 - Unspecified ovarian cyst, unspecified side (ICD-10) Endometriosis ?N80.9 - Endometriosis, unspecified (ICD-10) Hypertension ?I10 - Essential (primary) hypertension (ICD-10) Back pain ?M54.9 - Dorsalgia, unspecified (ICD-10) Chronic neck pain ?M54.2 - Cervicalgia (ICD-10) ?G89.29 - Other chronic pain (ICD-10) Open fracture of right hand ?S62.91XB - Unspecified fracture of right wrist and hand, initial encounter for open fracture (ICD-10) Anxiety and depression ?F41.9 - Anxiety disorder, unspecified (ICD-10) ?F32.A - Depression, unspecified (ICD-10) HTN (hypertension) ?I10 - Essential (primary) hypertension (ICD-10) Bulging of cervical intervertebral disc ?M50.30 - Other cervical disc degeneration, unspecified cervical region (ICD-10) Osteoporosis ?M81.0 - Age-related osteoporosis without current pathological fracture (ICD-10) Surgical History History of tonsillectomy ?Z90.89 - Acquired absence of other organs (ICD-10) History of colonoscopy ?Z98.890 - Other specified postprocedural states (ICD-10) History of esophagogastroduodenoscopy (EGD) ?Z98.890 - Other specified postprocedural states (ICD-10) History of laparoscopy ?Z98.890 - Other specified postprocedural states (ICD-10) History of appendectomy ?Z90.49 - Acquired absence of other specified parts of digestive tract (ICD-10) History of hysterectomy ?Z90.710 - Acquired absence of both cervix and uterus (ICD-10) History of cholecystectomy ?Z90.49 - Acquired absence of other specified parts of digestive tract (ICD-10) Family History Other Brain tumor Cancer Family history of aneurysm Family history of diabetes mellitus Family history of hypertension Social History Within the past year, how often did you have a drink containing alcohol: never Score interpretation: A score less than 3 is consistent with normal alcohol consumption. Smoking status: Current every day smoker What tobacco products do you use: cigarettes Cigarettes per day: 30 Years smoked: 36 Smoking pack-years: 54.00 Non-prescribed substance use: cannabis (any form) Highest level of school completed/degree received: 11th grade Little interest or pleasure in doing things: not at all Feeling down, depressed, or hopeless: not at all Exam Narrative Exam Narrative: Patient appears in acute distress. She is tachypneic and dyspneic with audible wheezing. HEENT exam is normal to inspection. Neck is supple. Auscultation of the lungs reveals loud coarse rhonchi in all lung zones. Heart has distant sounds with regular rate and rhythm. Abdomen soft and benign. Examination of the right hand shows evidence of prior amputation of the middle part of the right index finger. The skin flap is well-approximated not showing any signs of infection. Constitutional Vital Signs, click to edit/add: Last Vital Signs Temp 98.5 F 01/01/25 18:24 Pulse 74 01/01/25 18:53 Resp 24 H 01/01/25 18:53 BP 161/98 H 01/01/25 18:14 Pulse Ox 99 01/01/25 18:53 O2 Del Method Room Air 01/01/25 18:53 Course Vital Signs Vital signs: Vital Signs Pulse Rate 73 01/01/25 18:14 Respiratory Rate 20 01/01/25 18:14 Blood Pressure 161/98 H 01/01/25 18:14 Pulse Oximetry 98 01/01/25 18:14 Oxygen Delivery Method Room Air 01/01/25 18:14 Temperature 98.5 F 01/01/25 18:24 Pulse Rate 74 01/01/25 18:53 Respiratory Rate 24 H 01/01/25 18:53 Blood Pressure 161/98 H 01/01/25 18:14 Pulse Oximetry 99 01/01/25 18:53 Oxygen Delivery Method Room Air 01/01/25 18:53 Medical Decision Making MDM Narrative Medical decision making narrative: Patient presents with an asthmatic exacerbation of underlying COPD. She continues to smoke cigarettes. She has no access to any bronchodilators at home right now and my plan is to treat her with a DuoNeb followed by albuterol aerosol treatment and administer IV Solu-Medrol. Baseline studies are ordered. Care will be transferred to oncoming physician at change of shift for further evaluation and eventual disposition. For her finger pain she will be administered [place] orally. Lab Data Labs: Lab Results 01/01/25 01/01/25 Range/Units 18:36 18:44 WBC 8.7 (4.0-11.0) 10^3/uL RBC 4.33 (4.20-5.40) 10^6/uL Hgb 13.9 (12.0-16.0) g/dL Hct 41.5 (36.0-48.0) % MCV 95.8 (81.0-99.0) fL MCH 32.1 (26.7-34.0) pg MCHC 33.5 (29.9-35.2) g/dL RDW 12.1 (11.0-15.0) % Plt Count 177 (150-450) 10^3/uL MPV 11.2 (9.5-13.5) fL Neut % (Auto) 60.6 (43.0-75.0) % Lymph % (Auto) 33.1 (20.5-60.0) % [place] % (Auto) 5.7 (1.7-12.0) % Eos % (Auto) 0.3 L (0.9-7.0) % Baso % (Auto) 0.2 (0.2-2.0) % Neut # (Auto) 5.3 (1.4-6.5) 10^3/uL Lymph # (Auto) 2.9 (1.2-3.8) 10^3/uL [place] # (Auto) 0.5 (0.3-0.8) 10^3/uL Eos # (Auto) 0.0 (0.0-0.7) 10^3/uL Baso # (Auto) 0.0 (0.0-0.1) 10^3/uL Abs Immat Gran (auto) 0.01 (0.00-0.03) 10^3/uL Imm/Tot Granulo (auto) 0.1 (0.0-0.5) % Sodium 141 (136-145) mmol/L Potassium 3.8 (3.5-5.1) mmol/L Chloride 105 (98-107) mmol/L Carbon Dioxide 28.8 (21.0-32.0) mmol/L Anion Gap 11.0 BUN 9.0 (7.0-18.0) mg/dL Creatinine 0.75 (0.55-1.02) mg/dL Est GFR ( Amer) >60 (>=60 mL/min/1.73m^2) Est GFR (Non-Af Amer) >60 (>=60 mL/min/1.73m^2) BUN/Creatinine Ratio 12.0 Glucose 84 (74-106) mg/dL Calcium 9.0 (8.5-10.1) mg/dL Magnesium 2.0 (1.8-2.4) mg/dL Total Bilirubin 0.8 (0.2-1.0) mg/dL AST 21 (15-37) U/L ALT 29 (14-59) U/L Alkaline Phosphatase 95 (46-116) U/L Troponin I High Sens 7.3 (4.0-51.3) pg/mL NT-Pro-B Natriuret Pep 381.0 (<=900.0) pg/mL Total Protein 6.6 (6.4-8.2) g/dL Albumin 3.5 (3.4-5.0) g/dL Globulin 3.1 g/dL Albumin/Globulin Ratio 1.1 Influenza Type A Ag Negative Influenza Type B Ag Negative SARS-CoV-2 Ag (CV2AG) Negative (NEGATIVE) Discharge Plan Discharge Chief Complaint: Shortness of Breath/Dyspnea Clinical Impression: Dyspnea, Marijuana abuse, COPD with acute bronchitis, Medically noncompliant, Medication refill Patient Disposition: Home, Self-Care Time of Disposition Decision: 20:09 Condition: Fair Prescriptions / Home Meds: New albuterol sulfate 90 mcg/actuation HFA aerosol inhaler 2 inh inhalation Q4H PRN (Reason: shortness of breath or wheezing) 7 Days Qty: 8.5 0RF No Action ondansetron 4 mg tablet,disintegrating 4 mg PO Q4H PRN (Reason: nausea and vomiting) 3 Days Qty: 6 0RF dicyclomine 20 mg tablet 20 mg PO TID PRN (Reason: abdominal pain) Qty: 7 0RF gabapentin 300 mg capsule 300 mg PO DAILY budesonide-formoterol [Symbicort] 80-4.5 mcg/actuation HFA aerosol inhaler 2 puff INHALATION Q12H Print Language: Finnish Instructions: How to Use a Metered-Dose Inhaler (ED), Acute Bronchitis (ED), COPD (Chronic Obstructive Pulmonary Disease) (ED), Cannabis Use Disorder (ED), Wheezing (ED) Additional Instructions: You need to call your medical insurance, and asked them to provide a list of physicians that are in your insurance plan. You then need to call those physicians to see if they are taking accepting new patients. A prescription refill has been given to short-term for gabapentin, albuterol inhaler, and Budesonide. We are not able to prescribe the long-term medication refills from the emergency room. We cannot help treat chronic disease from the emergency room. Referrals: Physician,Non-Staff, [Primary Care Provider] - 1 week Documented by User: Rashad Blair MD 01/01/25 20:51 HPI HPI - General Adult General Chief complaint: Shortness of Breath/Dyspnea Stated complaint: SHORTNESS OF BREATH Time Seen by Provider: 01/01/25 18:18 Related Data Home Medications ?Medication ?Instructions ?Recorded ?Confirmed budesonide-formoterol HFA 80 2 puff inhalation Q12H 01/01/25 01/01/25 mcg-4.5 mcg/actuation aerosol inhaler (Symbicort) gabapentin 300 mg capsule 300 mg PO DAILY 01/01/25 01/01/25 Previous Rx's ?Medication ?Instructions ?Recorded dicyclomine 20 mg tablet 20 mg PO TID PRN abdominal pain #7 12/05/24 tabs ondansetron 4 mg disintegrating 4 mg PO Q4H PRN nausea and 12/05/24 tablet vomiting 3 days #6 tabs albuterol sulfate 90 mcg/actuation 2 inh inhalation Q4H PRN shortness 01/01/25 aerosol inhaler of breath or wheezing 7 days #8.5 grams Allergies Allergy/AdvReac Type Severity Reaction Status Date / Time No Known Drug Allergies Allergy Verified 01/01/25 18:16 Opioid HPI Opioid Management Most Recent Opioid Data: Last Pain Scale 8 12/05/24 21:35 12/05/24 PFSH PFSH Medical History Full dentures ?Z97.2 - Presence of dental prosthetic device (complete) (partial) (ICD-10) ?K08.109 - Complete loss of teeth, unspecified cause, unspecified class (ICD-10) Neck pain ?M54.2 - Cervicalgia (ICD-10) Depression ?F32.A - Depression, unspecified (ICD-10) Anxiety ?F41.9 - Anxiety disorder, unspecified (ICD-10) Asthma ?J45.909 - Unspecified asthma, uncomplicated (ICD-10) Chronic obstructive pulmonary disease ?J44.9 - Chronic obstructive pulmonary disease, unspecified (ICD-10) Migraine ?G43.909 - Migraine, unspecified, not intractable, without status migrainosus (ICD-10) Kidney stones ?N20.0 - Calculus of kidney (ICD-10) GERD (gastroesophageal reflux disease) ?K21.9 - Gastro-esophageal reflux disease without esophagitis (ICD-10) Hypothyroidism ?E03.9 - Hypothyroidism, unspecified (ICD-10) Hiatal hernia ?K44.9 - Diaphragmatic hernia without obstruction or gangrene (ICD-10) Colon polyp ?K63.5 - Polyp of colon (ICD-10) Ovarian cyst ?N83.209 - Unspecified ovarian cyst, unspecified side (ICD-10) Endometriosis ?N80.9 - Endometriosis, unspecified (ICD-10) Hypertension ?I10 - Essential (primary) hypertension (ICD-10) Back pain ?M54.9 - Dorsalgia, unspecified (ICD-10) Chronic neck pain ?M54.2 - Cervicalgia (ICD-10) ?G89.29 - Other chronic pain (ICD-10) Open fracture of right hand ?S62.91XB - Unspecified fracture of right wrist and hand, initial encounter for open fracture (ICD-10) Anxiety and depression ?F41.9 - Anxiety disorder, unspecified (ICD-10) ?F32.A - Depression, unspecified (ICD-10) HTN (hypertension) ?I10 - Essential (primary) hypertension (ICD-10) Bulging of cervical intervertebral disc ?M50.30 - Other cervical disc degeneration, unspecified cervical region (ICD-10) Osteoporosis ?M81.0 - Age-related osteoporosis without current pathological fracture (ICD-10) Surgical History History of tonsillectomy ?Z90.89 - Acquired absence of other organs (ICD-10) History of colonoscopy ?Z98.890 - Other specified postprocedural states (ICD-10) History of esophagogastroduodenoscopy (EGD) ?Z98.890 - Other specified postprocedural states (ICD-10) History of laparoscopy ?Z98.890 - Other specified postprocedural states (ICD-10) History of appendectomy ?Z90.49 - Acquired absence of other specified parts of digestive tract (ICD-10) History of hysterectomy ?Z90.710 - Acquired absence of both cervix and uterus (ICD-10) History of cholecystectomy ?Z90.49 - Acquired absence of other specified parts of digestive tract (ICD-10) Family History Other Brain tumor Cancer Family history of aneurysm Family history of diabetes mellitus Family history of hypertension Social History Within the past year, how often did you have a drink containing alcohol: never Score interpretation: A score less than 3 is consistent with normal alcohol consumption. Smoking status: Current every day smoker What tobacco products do you use: cigarettes Cigarettes per day: 30 Years smoked: 36 Smoking pack-years: 54.00 Non-prescribed substance use: cannabis (any form) Highest level of school completed/degree received: 11th grade Little interest or pleasure in doing things: not at all Feeling down, depressed, or hopeless: not at all Exam Constitutional Vital Signs, click to edit/add: Last Vital Signs Temp 98.5 F 01/01/25 18:24 Pulse 74 01/01/25 18:53 Resp 24 H 01/01/25 18:53 BP 161/98 H 01/01/25 18:14 Pulse Ox 99 01/01/25 18:53 O2 Del Method Room Air 01/01/25 18:53 Course Vital Signs Vital signs: Vital Signs Pulse Rate 73 01/01/25 18:14 Respiratory Rate 20 01/01/25 18:14 Blood Pressure 161/98 H 01/01/25 18:14 Pulse Oximetry 98 01/01/25 18:14 Oxygen Delivery Method Room Air 01/01/25 18:14 Temperature 98.5 F 01/01/25 18:24 Pulse Rate 74 01/01/25 18:53 Respiratory Rate 24 H 01/01/25 18:53 Blood Pressure 161/98 H 01/01/25 18:14 Pulse Oximetry 99 01/01/25 18:53 Oxygen Delivery Method Room Air 01/01/25 18:53 Medical Decision Making MDM Narrative Medical decision making narrative: Dr BLAIR note: Patient presents with an asthmatic exacerbation of underlying COPD. She continues to smoke cigarettes. She has no access to any bronchodilators at home right now and my plan is to treat her with a DuoNeb followed by albuterol aerosol treatment and administer IV Solu-Medrol. Baseline studies are ordered. Care will be transferred to oncoming physician at change of shift for further evaluation and eventual disposition. For her finger pain she will be administered [place] orally. 2000 Patient feels significant better with medication that has been given. Patient has multiple reasons and why she has no PCP. Patient says that Dr Bazan kicked patient out of her practice for smoking marijuana. Patient states that she takes inhaler of budesonide at home and gabapentin that helps with her finger pain to help with her COPD. Patient states all she does smoke marijuana every day. Patient states that she has called her insurance and was unable to get into any type of PCP. Patient was educated to call her insurance again to see what physicians that she can be referred to. Patient was very demanding and forward; stating that she needed certain prescriptions. She does not want to come to emergency room, but she has no other options at this point. Patient says that when she has her gabapentin and her budesonide, she does really well at home managing her pain and COPD. Patient told me multiple times all she does is smoke marijuana patient was educated that she cannot continue returning to the ER and expect us to give her chronic prescription refills. Patient understands emergency room is not the place to treat chronic ongoing. Patient felt much better, oxygen improved, breathing improved, patient is speaking in multiple sentences, patient was happy to go home. Lab Data Lab results reviewed: Yes I reviewed the patient's lab results Labs: Lab Results 01/01/25 01/01/25 Range/Units 18:36 18:44 WBC 8.7 (4.0-11.0) 10^3/uL RBC 4.33 (4.20-5.40) 10^6/uL Hgb 13.9 (12.0-16.0) g/dL Hct 41.5 (36.0-48.0) % MCV 95.8 (81.0-99.0) fL MCH 32.1 (26.7-34.0) pg MCHC 33.5 (29.9-35.2) g/dL RDW 12.1 (11.0-15.0) % Plt Count 177 (150-450) 10^3/uL MPV 11.2 (9.5-13.5) fL Neut % (Auto) 60.6 (43.0-75.0) % Lymph % (Auto) 33.1 (20.5-60.0) % [place] % (Auto) 5.7 (1.7-12.0) % Eos % (Auto) 0.3 L (0.9-7.0) % Baso % (Auto) 0.2 (0.2-2.0) % Neut # (Auto) 5.3 (1.4-6.5) 10^3/uL Lymph # (Auto) 2.9 (1.2-3.8) 10^3/uL [place] # (Auto) 0.5 (0.3-0.8) 10^3/uL Eos # (Auto) 0.0 (0.0-0.7) 10^3/uL Baso # (Auto) 0.0 (0.0-0.1) 10^3/uL Abs Immat Gran (auto) 0.01 (0.00-0.03) 10^3/uL Imm/Tot Granulo (auto) 0.1 (0.0-0.5) % Sodium 141 (136-145) mmol/L Potassium 3.8 (3.5-5.1) mmol/L Chloride 105 (98-107) mmol/L Carbon Dioxide 28.8 (21.0-32.0) mmol/L Anion Gap 11.0 BUN 9.0 (7.0-18.0) mg/dL Creatinine 0.75 (0.55-1.02) mg/dL Est GFR ( Amer) >60 (>=60 mL/min/1.73m^2) Est GFR (Non-Af Amer) >60 (>=60 mL/min/1.73m^2) BUN/Creatinine Ratio 12.0 Glucose 84 (74-106) mg/dL Calcium 9.0 (8.5-10.1) mg/dL Magnesium 2.0 (1.8-2.4) mg/dL Total Bilirubin 0.8 (0.2-1.0) mg/dL AST 21 (15-37) U/L ALT 29 (14-59) U/L Alkaline Phosphatase 95 (46-116) U/L Troponin I High Sens 7.3 (4.0-51.3) pg/mL NT-Pro-B Natriuret Pep 381.0 (<=900.0) pg/mL Total Protein 6.6 (6.4-8.2) g/dL Albumin 3.5 (3.4-5.0) g/dL Globulin 3.1 g/dL Albumin/Globulin Ratio 1.1 Influenza Type A Ag Negative Influenza Type B Ag Negative SARS-CoV-2 Ag (CV2AG) Negative (NEGATIVE) Imaging Data CT scan - pelvis: Radiologist's impression: Chest x-ray was read by radiologist Dr. Truong has no acute cardiopulmonary disease. ECG Data Attestation: I personally reviewed and interpreted this ECG as follows: (EKG was reviewed by Dr. Lay. Normal sinus rhythm at 64 beats a minute. Normal axis deviation. Artifact noted. QTc of 402. DE interval of 116.) Discharge Plan Discharge Chief Complaint: Shortness of Breath/Dyspnea Clinical Impression: Dyspnea, Marijuana abuse, COPD with acute bronchitis, Medically noncompliant, Medication refill Patient Disposition: Home, Self-Care Time of Disposition Decision: 20:09 Condition: Fair Prescriptions / Home Meds: New albuterol sulfate 90 mcg/actuation HFA aerosol inhaler 2 inh inhalation Q4H PRN (Reason: shortness of breath or wheezing) 7 Days Qty: 8.5 0RF No Action ondansetron 4 mg tablet,disintegrating 4 mg PO Q4H PRN (Reason: nausea and vomiting) 3 Days Qty: 6 0RF dicyclomine 20 mg tablet 20 mg PO TID PRN (Reason: abdominal pain) Qty: 7 0RF gabapentin 300 mg capsule 300 mg PO DAILY budesonide-formoterol [Symbicort] 80-4.5 mcg/actuation HFA aerosol inhaler 2 puff INHALATION Q12H Print Language: Finnish Instructions: How to Use a Metered-Dose Inhaler (ED), Acute Bronchitis (ED), COPD (Chronic Obstructive Pulmonary Disease) (ED), Cannabis Use Disorder (ED), Wheezing (ED) Additional Instructions: You need to call your medical insurance, and asked them to provide a list of physicians that are in your insurance plan. You then need to call those physicians to see if they are taking accepting new patients. A prescription refill has been given to short-term for gabapentin, albuterol inhaler, and Budesonide. We are not able to prescribe the long-term medication refills from the emergency room. We cannot help treat chronic disease from the emergency room. Referrals: Physician,Non-Staff, MD [Primary Care Provider] - 1 week
--- NOTE | 2025-01-01 18:43 | PC.NURSE ---
Pt refusing any more IV pokes. 1 try completed and vvein blew. RT at bedside giving breathing tx. Lab also gettingg blood at this time,.l elsa Bowling
[2025-01-01 18:46] VITALS: PULSE 69; O2SAT 99
[2025-01-01] MEDS: IPRATROPIUM/ALBUTEROL SULFATE 3 ML AMPUL.NEB IH (18:46)
[2025-01-01 18:53] VITALS: PULSE 74; O2SAT 99
[2025-01-01] MEDS: ALBUTEROL SULFATE 2.5 MG/3 ML VIAL NEB IH (18:53)
[2025-01-01] MEDS: HYDROCODONE/ACET 5-325 MG TABLET 1 TAB PO (19:02)
[2025-01-01 19:21] LABS: Influenza Virus A Antigen Negative; Influenza Virus B Antigen Negative; Internal Control Within Normal Limits; SARS-CoV-2 Ag NEGATIVE (NEGATIVE)
[2025-01-01 19:24] LABS: Basophils Percent Auto 0.2 % (0.2-2.0); Eosinophils Percent Auto 0.3 % (0.9-7.0); Hematocrit 41.5 % (36.0-48.0); Hemoglobin 13.9 g/dL (12.0-16.0); Immature Granulocytes Abs Auto 0.01 10^3/uL (0.00-0.03); Immature Granulocytes Pct Auto 0.1 % (0.0-0.5); Lymphocytes Absolute Auto 2.9 10^3/uL (1.2-3.8); Lymphocytes Percent Auto 33.1 % (20.5-60.0); Mean Corpuscular HGB Conc 33.5 g/dL (29.9-35.2); Mean Corpuscular Hemoglobin 32.1 pg (26.7-34.0); Mean Corpuscular Volume 95.8 fL (81.0-99.0); Mean Platelet Volume 11.2 fL (9.5-13.5); Monocytes Absolute Auto 0.5 10^3/uL (0.3-0.8); Monocytes Percent Auto 5.7 % (1.7-12.0); Neutrophils Absolute Auto 5.3 10^3/uL (1.4-6.5); Neutrophils Percent Auto 60.6 % (43.0-75.0); Platelet Count 177 10^3/uL (150-450); Red Blood Count 4.33 10^6/uL (4.20-5.40); Red Cell Distribution Width 12.1 % (11.0-15.0); White Blood Count 8.7 10^3/uL (4.0-11.0)
[2025-01-01 19:26] LABS: Alanine Aminotransferase 29 U/L (14-59); Albumin Globulin Ratio 1.1; Albumin Level 3.5 g/dL (3.4-5.0); Alkaline Phosphatase 95 U/L (46-116); Aspartate Amino Transferase 21 U/L (15-37); Bilirubin Total 0.8 mg/dL (0.2-1.0); Carbon Dioxide 28.8 mmol/L (21.0-32.0); Chloride 105 mmol/L (98-107); Estimated GFR (African America >60 (>=60 mL/min/1.73m^2); Estimated GFR (Non-African Ame >60 (>=60 mL/min/1.73m^2); Globulin 3.1 g/dL; Glucose 84 mg/dL (74-106); Potassium 3.8 mmol/L (3.5-5.1); Sodium 141 mmol/L (136-145); Total Protein 6.6 g/dL (6.4-8.2)
[2025-01-01 19:32] LABS: Troponin I High Sensitivity 7.3 pg/mL (4.0-51.3)
--- NOTE | 2025-01-01 19:58 | ED.GENADUL1 ---
HPI HPI - General Adult General Chief complaint: Shortness of Breath/Dyspnea Stated complaint: SHORTNESS OF BREATH Time Seen by Provider: 01/01/25 18:18 Source: patient Mode of arrival: Wheelchair Limitations: no limitations History of Present Illness HPI narrative: Patient is a All systems are negative except as noted/marked. All systems reviewed and otherwise negative. Nurses note and vital signs reviewed and patient is not hypoxic. General: The patient appears well and in no apparent distress. Patient is resting comfortably on cart. Patient is not toxic, lethargic, or listless Skin: Warm, dry, no pallor noted. There is no rash noted. No petechiae, purpura. Head: Normocephalic, atraumatic Eye: Normal conjunctiva, no drainage, EOMI. PERRL Ears, Nose, Mouth, and Throat: oral mucosa is moist. Nares patent. Mouth without vesicles. Cardiovascular: Regular Rate and Rhythm, no murmur, gallop, rub Respiratory: Patient is in no distress, no accessory muscle use, lungs are clear to auscultation, no wheezing, rales or rhonchi Back: non-tender, no CVA tenderness bilaterally to percussion. No CT LS midline pain GI: no tenderness to palpation, no masses appreciated. No rebound, guarding, or rigidity noted. No distention Musculoskeletal: Patient has full range of motion of all of the extremities, no motor, sensory, or focal neurological deficits Neurological: A&O x4, normal speech Psychiatric: Cooperative Related Data Previous Rx's ?Medication ?Instructions ?Recorded dicyclomine 20 mg tablet 20 mg PO TID PRN abdominal pain #7 12/05/24 tabs ondansetron 4 mg disintegrating 4 mg PO Q4H PRN nausea and 12/05/24 tablet vomiting 3 days #6 tabs Allergies Allergy/AdvReac Type Severity Reaction Status Date / Time No Known Drug Allergies Allergy Verified 01/01/25 18:16 Opioid HPI Opioid Management Most Recent Opioid Data: Last Pain Scale 8 12/05/24 21:35 12/05/24 [facility] Medical History Full dentures ?Z97.2 - Presence of dental prosthetic device (complete) (partial) (ICD-10) ?K08.109 - Complete loss of teeth, unspecified cause, unspecified class (ICD-10) Neck pain ?M54.2 - Cervicalgia (ICD-10) Depression ?F32.A - Depression, unspecified (ICD-10) Anxiety ?F41.9 - Anxiety disorder, unspecified (ICD-10) Asthma ?J45.909 - Unspecified asthma, uncomplicated (ICD-10) Chronic obstructive pulmonary disease ?J44.9 - Chronic obstructive pulmonary disease, unspecified (ICD-10) Migraine ?G43.909 - Migraine, unspecified, not intractable, without status migrainosus (ICD-10) Kidney stones ?N20.0 - Calculus of kidney (ICD-10) GERD (gastroesophageal reflux disease) ?K21.9 - Gastro-esophageal reflux disease without esophagitis (ICD-10) Hypothyroidism ?E03.9 - Hypothyroidism, unspecified (ICD-10) Hiatal hernia ?K44.9 - Diaphragmatic hernia without obstruction or gangrene (ICD-10) Colon polyp ?K63.5 - Polyp of colon (ICD-10) Ovarian cyst ?N83.209 - Unspecified ovarian cyst, unspecified side (ICD-10) Endometriosis ?N80.9 - Endometriosis, unspecified (ICD-10) Hypertension ?I10 - Essential (primary) hypertension (ICD-10) Back pain ?M54.9 - Dorsalgia, unspecified (ICD-10) Chronic neck pain ?M54.2 - Cervicalgia (ICD-10) ?G89.29 - Other chronic pain (ICD-10) Open fracture of right hand ?S62.91XB - Unspecified fracture of right wrist and hand, initial encounter for open fracture (ICD-10) Anxiety and depression ?F41.9 - Anxiety disorder, unspecified (ICD-10) ?F32.A - Depression, unspecified (ICD-10) HTN (hypertension) ?I10 - Essential (primary) hypertension (ICD-10) Bulging of cervical intervertebral disc ?M50.30 - Other cervical disc degeneration, unspecified cervical region (ICD-10) Osteoporosis ?M81.0 - Age-related osteoporosis without current pathological fracture (ICD-10) Surgical History History of tonsillectomy ?Z90.89 - Acquired absence of other organs (ICD-10) History of colonoscopy ?Z98.890 - Other specified postprocedural states (ICD-10) History of esophagogastroduodenoscopy (EGD) ?Z98.890 - Other specified postprocedural states (ICD-10) History of laparoscopy ?Z98.890 - Other specified postprocedural states (ICD-10) History of appendectomy ?Z90.49 - Acquired absence of other specified parts of digestive tract (ICD-10) History of hysterectomy ?Z90.710 - Acquired absence of both cervix and uterus (ICD-10) History of cholecystectomy ?Z90.49 - Acquired absence of other specified parts of digestive tract (ICD-10) Family History Other Brain tumor Cancer Family history of aneurysm Family history of diabetes mellitus Family history of hypertension Social History Within the past year, how often did you have a drink containing alcohol: never Score interpretation: A score less than 3 is consistent with normal alcohol consumption. Smoking status: Current every day smoker What tobacco products do you use: cigarettes Cigarettes per day: 30 Years smoked: 36 Smoking pack-years: 54.00 Non-prescribed substance use: cannabis (any form) Highest level of school completed/degree received: 11th grade Little interest or pleasure in doing things: not at all Feeling down, depressed, or hopeless: not at all Exam Constitutional Vital Signs, click to edit/add: Last Vital Signs Temp 98.5 F 01/01/25 18:24 Pulse 74 01/01/25 18:53 Resp 24 H 01/01/25 18:53 BP 161/98 H 01/01/25 18:14 Pulse Ox 99 01/01/25 18:53 O2 Del Method Room Air 01/01/25 18:53 Course Vital Signs Vital signs: Vital Signs Pulse Rate 73 01/01/25 18:14 Respiratory Rate 20 01/01/25 18:14 Blood Pressure 161/98 H 01/01/25 18:14 Pulse Oximetry 98 01/01/25 18:14 Oxygen Delivery Method Room Air 01/01/25 18:14 Temperature 98.5 F 01/01/25 18:24 Pulse Rate 74 01/01/25 18:53 Respiratory Rate 24 H 01/01/25 18:53 Blood Pressure 161/98 H 01/01/25 18:14 Pulse Oximetry 99 01/01/25 18:53 Oxygen Delivery Method Room Air 01/01/25 18:53 Medical Decision Making Lab Data Labs: Lab Results 01/01/25 01/01/25 Range/Units 18:36 18:44 WBC 8.7 (4.0-11.0) 10^3/uL RBC 4.33 (4.20-5.40) 10^6/uL Hgb 13.9 (12.0-16.0) g/dL Hct 41.5 (36.0-48.0) % MCV 95.8 (81.0-99.0) fL MCH 32.1 (26.7-34.0) pg MCHC 33.5 (29.9-35.2) g/dL RDW 12.1 (11.0-15.0) % Plt Count 177 (150-450) 10^3/uL MPV 11.2 (9.5-13.5) fL Neut % (Auto) 60.6 (43.0-75.0) % Lymph % (Auto) 33.1 (20.5-60.0) % [place] % (Auto) 5.7 (1.7-12.0) % Eos % (Auto) 0.3 L (0.9-7.0) % Baso % (Auto) 0.2 (0.2-2.0) % Neut # (Auto) 5.3 (1.4-6.5) 10^3/uL Lymph # (Auto) 2.9 (1.2-3.8) 10^3/uL [place] # (Auto) 0.5 (0.3-0.8) 10^3/uL Eos # (Auto) 0.0 (0.0-0.7) 10^3/uL Baso # (Auto) 0.0 (0.0-0.1) 10^3/uL Abs Immat Gran (auto) 0.01 (0.00-0.03) 10^3/uL Imm/Tot Granulo (auto) 0.1 (0.0-0.5) % Sodium 141 (136-145) mmol/L Potassium 3.8 (3.5-5.1) mmol/L Chloride 105 (98-107) mmol/L Carbon Dioxide 28.8 (21.0-32.0) mmol/L Anion Gap 11.0 BUN 9.0 (7.0-18.0) mg/dL Creatinine 0.75 (0.55-1.02) mg/dL Est GFR ( Amer) >60 (>=60 mL/min/1.73m^2) Est GFR (Non-Af Amer) >60 (>=60 mL/min/1.73m^2) BUN/Creatinine Ratio 12.0 Glucose 84 (74-106) mg/dL Calcium 9.0 (8.5-10.1) mg/dL Magnesium 2.0 (1.8-2.4) mg/dL Total Bilirubin 0.8 (0.2-1.0) mg/dL AST 21 (15-37) U/L ALT 29 (14-59) U/L Alkaline Phosphatase 95 (46-116) U/L Troponin I High Sens 7.3 (4.0-51.3) pg/mL NT-Pro-B Natriuret Pep 381.0 (<=900.0) pg/mL Total Protein 6.6 (6.4-8.2) g/dL Albumin 3.5 (3.4-5.0) g/dL Globulin 3.1 g/dL Albumin/Globulin Ratio 1.1 Influenza Type A Ag Negative Influenza Type B Ag Negative SARS-CoV-2 Ag (CV2AG) Negative (NEGATIVE) Discharge Plan Discharge Chief Complaint: Shortness of Breath/Dyspnea Prescriptions / Home Meds: No Action ondansetron 4 mg tablet,disintegrating 4 mg PO Q4H PRN (Reason: nausea and vomiting) 3 Days Qty: 6 0RF dicyclomine 20 mg tablet 20 mg PO TID PRN (Reason: abdominal pain) Qty: 7 0RF Print Language: Thai Referrals: Physician,Non-Staff, MD [Primary Care Provider] - 1 week
== END 2025-01-01 20:28 | disposition home or self-care (01) ==
PROVIDERS: Emergency Provider Emergency Medicine
DX: R06.02 Shortness of breath (principal); R06.00 Dyspnea, unspecified; Z79.899 Other long term (current) drug therapy; J44.9 Chronic obstructive pulmonary disease, unspecified; J20.9 Acute bronchitis, unspecified; R06.2 Wheezing; R07.89 Other chest pain; F17.200 Nicotine dependence, unspecified, uncomplicated; Z91.148 Patient's other noncompliance with medication regimen for other reason
CPT/HCPCS: 36415; 71045; 80053; 83735; 83880; 84484; 85025; 87804; 87811; 93005; 94640; 99285

== ENCOUNTER 2025-01-28 21:34 | Emergency (ER) | payer OTHER, SELFPAY ==
--- NOTE | 2025-01-28 21:00 | ECG_ITS ---
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
[2025-01-28 21:37] VITALS: BP 149/100; PULSE 65; TEMP 36.9; O2SAT 100
[2025-01-28 21:43] VITALS: PULSE 64
[2025-01-28] MEDS: LORAZEPAM 2 MG/ML VIAL 1 MG IM (22:03)
--- NOTE | 2025-01-28 22:12 | ED_ITS ---
HPI HPI - General Adult General Chief complaint: Shortness of Breath/Dyspnea Stated complaint: panic attack Time Seen by Provider: 01/28/25 21:39 Source: patient Mode of arrival: Wheelchair Limitations: no limitations History of Present Illness HPI narrative: 49-year-old female presents for what she describes as an anxiety attack. She states that she feels anxious and had trouble sleeping. She has had this since yesterday. She has a remote history of anxiety and had been on Xanax years ago but none since. She has a history of COPD and was noted to have some wheezing. She used her Symbicort but does not have albuterol at home. No fever or productive cough. Related Data Home Medications ?Medication ?Instructions ?Recorded ?Confirmed budesonide-formoterol HFA 80 2 puff inhalation Q12H 01/01/25 01/28/25 mcg-4.5 mcg/actuation aerosol inhaler (Symbicort) gabapentin 300 mg capsule 300 mg PO DAILY 01/01/25 01/01/25 Previous Rx's ?Medication ?Instructions ?Recorded albuterol sulfate 90 mcg/actuation 2 inh inhalation Q4H PRN shortness 01/01/25 aerosol inhaler of breath or wheezing 7 days #8.5 grams albuterol sulfate 90 mcg/actuation 2 inh inhalation Q4H PRN shortness 01/28/25 aerosol inhaler of breath or wheezing #8.5 grams alprazolam 0.5 mg tablet (Xanax) 0.5 mg PO TID PRN anxiety 5 days 01/28/25 #14 tabs Allergies Allergy/AdvReac Type Severity Reaction Status Date / Time No Known Drug Allergies Allergy Verified 01/01/25 18:16 Opioid HPI Opioid Management Most Recent Opioid Data: Last Pain Scale 8 12/05/24 21:35 12/05/24 Review of Systems ROS Narrative A ten point review of systems is negative except as noted above. PFSH PFSH Medical History Full dentures ?Z97.2 - Presence of dental prosthetic device (complete) (partial) (ICD-10) ?K08.109 - Complete loss of teeth, unspecified cause, unspecified class (ICD- 10) Neck pain ?M54.2 - Cervicalgia (ICD-10) Depression ?F32.A - Depression, unspecified (ICD-10) Anxiety ?F41.9 - Anxiety disorder, unspecified (ICD-10) Asthma ?J45.909 - Unspecified asthma, uncomplicated (ICD-10) Chronic obstructive pulmonary disease ?J44.9 - Chronic obstructive pulmonary disease, unspecified (ICD-10) Migraine ?G43.909 - Migraine, unspecified, not intractable, without status migrainosus (ICD-10) Kidney stones ?N20.0 - Calculus of kidney (ICD-10) GERD (gastroesophageal reflux disease) ?K21.9 - Gastro-esophageal reflux disease without esophagitis (ICD-10) Hypothyroidism ?E03.9 - Hypothyroidism, unspecified (ICD-10) Hiatal hernia ?K44.9 - Diaphragmatic hernia without obstruction or gangrene (ICD-10) Colon polyp ?K63.5 - Polyp of colon (ICD-10) Ovarian cyst ?N83.209 - Unspecified ovarian cyst, unspecified side (ICD-10) Endometriosis ?N80.9 - Endometriosis, unspecified (ICD-10) Hypertension ?I10 - Essential (primary) hypertension (ICD-10) Back pain ?M54.9 - Dorsalgia, unspecified (ICD-10) Chronic neck pain ?M54.2 - Cervicalgia (ICD-10) ?G89.29 - Other chronic pain (ICD-10) Open fracture of right hand ?S62.91XB - Unspecified fracture of right wrist and hand, initial encounter for open fracture (ICD-10) Anxiety and depression ?F41.9 - Anxiety disorder, unspecified (ICD-10) ?F32.A - Depression, unspecified (ICD-10) HTN (hypertension) ?I10 - Essential (primary) hypertension (ICD-10) Bulging of cervical intervertebral disc ?M50.30 - Other cervical disc degeneration, unspecified cervical region (ICD- 10) Osteoporosis ?M81.0 - Age-related osteoporosis without current pathological fracture (ICD- 10) Surgical History History of tonsillectomy ?Z90.89 - Acquired absence of other organs (ICD-10) History of colonoscopy ?Z98.890 - Other specified postprocedural states (ICD-10) History of esophagogastroduodenoscopy (EGD) ?Z98.890 - Other specified postprocedural states (ICD-10) History of laparoscopy ?Z98.890 - Other specified postprocedural states (ICD-10) History of appendectomy ?Z90.49 - Acquired absence of other specified parts of digestive tract (ICD- 10) History of hysterectomy ?Z90.710 - Acquired absence of both cervix and uterus (ICD-10) History of cholecystectomy ?Z90.49 - Acquired absence of other specified parts of digestive tract (ICD- 10) Family History Other Brain tumor Cancer Family history of aneurysm Family history of diabetes mellitus Family history of hypertension Social History Within the past year, how often did you have a drink containing alcohol: never Score interpretation: A score less than 3 is consistent with normal alcohol consumption. Smoking status: Current every day smoker What tobacco products do you use: cigarettes Cigarettes per day: 30 Years smoked: 36 Smoking pack-years: 54.00 Non-prescribed substance use: cannabis (any form) Highest level of school completed/degree received: 11th grade Little interest or pleasure in doing things: not at all Feeling down, depressed, or hopeless: not at all Exam Narrative Exam Narrative: Nurses note and vital signs reviewed and patient is not hypoxic. General: The patient appears well and in no apparent distress. Skin: Warm, dry, no pallor noted. There is no rash noted. Head: Normocephalic, atraumatic Eye: Normal conjunctiva, no drainage Ears, Nose, Mouth, and Throat: oral mucosa is moist. Nares patent. Cardiovascular: Regular Rate and Rhythm Respiratory: Bilateral rhonchi throughout. Breath sounds are equal. Good air movement present Back: non-tender GI: Normal bowel sounds, no tenderness to palpation, no masses appreciated. No rebound, guarding, or rigidity noted. Musculoskeletal: The patient has no evidence of calf tenderness, no pitting edema, symmetrical pulses noted bilaterally Neurological: A&O, normal speech Psychiatric: Cooperative, appears somewhat anxious Constitutional Vital Signs, click to edit/add: Last Vital Signs Temp 98.4 F 01/28/25 21:37 Pulse 64 01/28/25 22:19 Resp 20 01/28/25 22:19 BP 149/100 H 01/28/25 21:37 Pulse Ox 96 01/28/25 22:19 O2 Del Method Room Air 01/28/25 22:19 Course Vital Signs Vital signs: Vital Signs Temperature 98.4 F 01/28/25 21:37 Pulse Rate 65 01/28/25 21:37 Respiratory Rate 24 H 01/28/25 21:37 Blood Pressure 149/100 H 01/28/25 21:37 Pulse Oximetry 100 01/28/25 21:37 Oxygen Delivery Method Room Air 01/28/25 21:37 Temperature 98.4 F 01/28/25 21:37 Pulse Rate 64 01/28/25 22:19 Respiratory Rate 20 01/28/25 22:19 Blood Pressure 149/100 H 01/28/25 21:37 Pulse Oximetry 96 01/28/25 22:19 Oxygen Delivery Method Room Air 01/28/25 22:19 Medical Decision Making MDM Narrative Medical decision making narrative: She was given an albuterol treatment and 1 mg of IM Ativan. She feels much better now and is discharged home with an inhaler prescription for albuterol as well as prescription for Xanax. PCP list given as well. Treatment diagnosis and follow-up were discussed with the patient. Differential Diagnosis Differential Diagnosis: Anxiety, COPD ECG Data Attestation: I personally reviewed and interpreted this ECG as follows: (EKG on my interpretation shows sinus rhythm with a rate of 64 and no acute change) Discharge Plan Discharge Chief Complaint: Shortness of Breath/Dyspnea Clinical Impression: Anxiety Patient Disposition: Home, Self-Care Time of Disposition Decision: 22:32 Condition: Good Mode of Transportation: Private Vehicle Prescriptions / Home Meds: New albuterol sulfate 90 mcg/actuation HFA aerosol inhaler 2 inh inhalation Q4H PRN (Reason: shortness of breath or wheezing) Qty: 8.5 0RF alprazolam [Xanax] 0.5 mg tablet 0.5 mg PO TID PRN (Reason: anxiety) 5 Days Qty: 14 0RF No Action gabapentin 300 mg capsule 300 mg PO DAILY budesonide-formoterol [Symbicort] 80-4.5 mcg/actuation HFA aerosol inhaler 2 puff INHALATION Q12H albuterol sulfate 90 mcg/actuation HFA aerosol inhaler 2 inh inhalation Q4H PRN (Reason: shortness of breath or wheezing) 7 Days Qty: 8.5 0RF Print Language: Upper Sorbian Instructions: Anxiety (ED) Additional Instructions: See list of PCPs. Referrals: Physician,Non-Staff, MD [Primary Care Provider] - 1 week
[2025-01-28] MEDS: ALBUTEROL SULFATE 2.5 MG/3 ML VIAL NEB IH (22:17)
[2025-01-28 22:19] VITALS: PULSE 64; O2SAT 96
[2025-01-28 22:40] VITALS: BP 150/94; PULSE 89; O2SAT 98
== END 2025-01-28 22:43 | disposition home or self-care (01) ==
PROVIDERS: Emergency Provider Emergency Medicine
DX: F41.9 Anxiety disorder, unspecified (principal); J44.9 Chronic obstructive pulmonary disease, unspecified; Z90.49 Acquired absence of other specified parts of digestive tract; Z90.710 Acquired absence of both cervix and uterus; F17.210 Nicotine dependence, cigarettes, uncomplicated; R06.2 Wheezing
CPT/HCPCS: 93005; 94640; 96372; 99284; J2060

== ENCOUNTER 2025-01-31 16:10 | Emergency (ER) | payer OTHER, SELFPAY ==
--- OUTSIDE RECORDS SUMMARY | 2025-01-31 16:16 | XMS_ITS | CCD ---
Author Organization [facility] [place] [facility] Team Providers Care Button And Buckle Maker Name Role Phone Woo FALCON Attending Unavailable [...] Attending Unavailable ANA ., DARRIN Admitting Unavailable [facility] Primary Care Unavailable KOBE HICKEY Consulting Unavailable MARKER ., DR MAX Attending Unavailable MARKER ., DR MAX Admitting Unavailable MARKER ., DR MAX Consulting Unavailable [facility] Primary Care Unavailable LEON, JIMMY Consulting Unavailable SHAMMO, TATUM Primary Care Unavailable SAI, VAUGHN Admitting Unavailable SAI, VAUGHN Attending Unavailable SAI, VAUGHN Consulting Unavailable WOO PAIGE Consulting Unavailable SHAMMO, TATUM Consulting Unavailable [facility] Primary Care Unavailable SAI, VAUGHN Admitting Unavailable SAI, VAUGHN Attending Unavailable BEAU, DR RJ Foster Consulting Unavailable HAY ., DR BIRD Consulting Unavailable SAI, VAUGHN Consulting Unavailable ALIA, CAROL ANN Admitting Unavailable ALIA, CAROL ANN Attending Unavailable [facility] Primary Care Unavailable SHAMMO, TATUM Admitting Unavailable SHAMMO, TATUM Attending Unavailable SHAMMO, TATUM Primary Care Unavailable SHAMMO, TATUM Consulting Unavailable [facility] Primary Care Unavailable LUIS EDUARDO, DR LAYA [...] PHYSICIAN Primary Care Provider Unava ilable LEXI Griggsothy Emergency Provider [phone] Vikram Mckenna MD Attending Unavailable Vikram Mckenna MD Admitting Unavailable Unavailable, Physician Primary Care Unavailab Santo Ferro DO Consulting Unavailabl e Zackery Griggs Attending Unavailable Zackery Griggs Admitting Unavailable NO FAMILY, PHYSICIAN Primary Care Unavailable Allergies Allergy Classification Reported Allergen(s) Allergy Type Date of Onset Reaction(s) Facility (2 sources) No Known Medication Allergies; Translations: [No Known Medication Allergies] Propensity to adverse reactions (disorder) [facility] Repository Problems Active Problems Problem [...] 01-15-2023 Chronic Other aftercare (1 source) Other emt intermediate (current) drug therapy; Translations: [OTH SHIP BOSS CURRENT DRUG THERAPY] Onset: 02-26-2023 Episodic Other connective tissue disease (4 sources) Pain in right hand; Translations: [PAIN IN RIGHT HAND] Onset: 03-05-2023 Episodic Other connective tissue disease (1 source) Pain in finger; Translations: [Pain in unspecified finger(s)] 08-13-2024 Episodic Other nervous system disorders (1 [...] IN LEFT HAND] Onset: 06-26-2022 Episodic Other connective tissue disease (1 source) Pain in right finger(s); Translations: [Pain in right finger(s)] Onset: 08-13-2024 Episodic Other non-traumatic joint disorders (4 sources) [...] Final No anaerobic growth after 72 hrs. [facility] Comment on above: Performed By: #### A NAC #### [place] [address] C NOE - ---- Final No anaerobic growth after 72 hrs. [facility] Comment on above: Performed By: #### S BS #### [facility] (DEFAULT) [address] [place], [place] [id number] C NOE - ---- Final No anaerobic growth after 72 hrs. [facility] Comment on above: Performed By: #### A NAC #### [address] [address] C NOE - ---- Final No anaerobic growth after 72 hrs. [facility] Comment on above: Performed By: #### S BS #### [facility] (DEFAULT) [address] [place] [address] [address] C Sterile BSon 07-12-2024 C Sterile BS [...] <=0.25 V Trimethoprim/Sulfa S <=20 V Normal [facility] Comment on above: Performed By: #### S BSC #### [facility] (DEFAULT) [address] [place] [address] [facility] [address] [place] [address] C Sterile BS - ---- Final Light [...] <=10 V Vancomycin S 1 V Normal [facility] Comment on above: Performed By: #### S [facility] #### [facility] (DEFAULT) [address] [place] [address] [facility] [address] [place] [address] C Sterile BS - ---- Final Moderate [...] <=10 V Vancomycin S 1 V Normal [facility] Comment on above: Performed By: #### S [facility] #### [facility] (DEFAULT) [address] [place] [address] [facility] [address] [place] [address], [place] [address] C Sterile BS - ---- Final Moderate [...] <=10 V Vancomycin S 1 V Normal [facility] Comment on above: Performed By: #### S BSC #### [facility] (DEFAULT) [address] [place] [address] [facility] [address] [place] [address] .eGFRon 07-11-2024 GFR/1.73 sq M.predicted MDRD (S/P/Bld) [Vol rate/Area] mL/min/{1.73_m2} Normal >=60 [facility] Comment on above: Result Comment: [facility] Laboratories have implemented the eGFR calculation [...] years Performed By: #### A NAC #### [facility] [address] [place] [address] CBC w/ Diffon 07-11-2024 Erythrocyte distribution width (RBC) [Ratio] 13.4 % Normal 11.6-14.8 [facility] Comment on above: Performed By: #### S BSC #### [facility] (DEFAULT) [address] [place] [address] [facility] [address] [place] [address] Hematocrit (Bld) [Volume fraction] 37.5 % Normal 36.0-46.0 [facility] Comment on above: Performed By: #### S BSC #### [facility] (DEFAULT) [address] [place] [address] [facility] [address] [place] [address] Hemoglobin (Bld) [Mass/Vol] 12.6 g/dL Normal 12.0-16.0 [facility] Comment on above: Performed By: #### S BSC #### [facility] (DEFAULT) [address] [place] [address] [facility] [address] [place] [address] MCH (RBC) [Entitic mass] 32.5 pg Normal 27.0-35.0 [facility] Comment on above: Performed By: #### S BSC #### [facility] (DEFAULT) [address] [place] [address] [facility] [address] [place] [address] MCHC 33.7 % Normal 31.0-37.0 [facility] Comment on above: Performed By: #### S BSC #### [facility] (DEFAULT) [address] [place] [address] [facility] [address] [place] [address] MCV (RBC) [Entitic vol] 96.6 fL Normal 80.0-100.0 [facility] Comment on above: Performed By: #### S BSC #### [facility] (DEFAULT) [address] [place] [address] [facility] [address] [place] [address] Platelet 172 x10*3/mcL Normal 150-450 [facility] Comment on above: Performed By: #### S BSC #### [facility] (DEFAULT) [address] [place] [address] [facility] [address] [place] [address] Platelet mean volume (Bld) [Entitic vol] 9.3 fL Normal 6.7-10.6 [facility] Comment on above: Performed By: #### S BSC #### [facility] (DEFAULT) [address] [place] [address] [facility] [address] [place] [address] RBC 3.88 x10*6/mcL Normal 3.80-5.20 [facility] Comment on above: Performed By: #### S BSC #### [facility] (DEFAULT) [address] [place] [address] [facility] [address] [place] [address] WBC 8.8 x10*3/mcL Normal 4.5-11.0 [facility] Comment on above: Performed By: #### S BSC #### [facility] (DEFAULT) [address] [place] [address] [facility] [address] [place] [address] CMPon 07-11-2024 Albumin [Mass/Vol] 3.5 g/dL Normal 3.2-4.9 [facility] Comment on above: Performed By: #### S BSC #### [facility] (DEFAULT) [address] [place] [address] [facility] [address] [place] [address] Albumin/Globulin [Mass ratio] 1.5 {ratio} Normal 1.1-2.2 [facility] Comment on above: Performed By: #### S BSC #### [facility] (DEFAULT) [address] [place] [address] [facility] [address] [place] [address] Alk Phos 66 IU/L Normal 32-91 [facility] Comment on above: Performed By: #### S BSC #### [facility] (DEFAULT) [address] [place] [address] [facility] [address] [place] [address] ALT [Catalytic activity/Vol] 11 U/L Low 14-54 [facility] Comment on above: Performed By: #### S BSC #### [facility] (DEFAULT) [address] [place] [address] [facility] [address] [place] [address] Anion gap [Moles/Vol] 7 mmol/L Normal 4-12 [facility] Comment on above: Performed By: #### S BSC #### [facility] (DEFAULT) [address] [place] [address] [facility] [address] [place] [address] AST [Catalytic activity/Vol] 16 U/L Normal 15-41 [facility] Comment on above: Performed By: #### S BSC #### [facility] (DEFAULT) [address] [place] [address] [facility] [address] [place] [address] Bili Total 1.3 mg/dL High 0.3-1.2 [facility] Comment on above: Performed By: #### S BSC #### [facility] (DEFAULT) [address] [place] [address] [facility] [address] [place] [address] Calcium [Mass/Vol] 8.4 mg/dL Low 8.5-10.3 [facility] Comment on above: Performed By: #### S BSC #### [facility] (DEFAULT) [address] [place] [address] [facility] [address] [place] [address] Chloride [Moles/Vol] 103 mmol/L Normal 98-110 [facility] Comment on above: Performed By: #### S BSC #### [facility] (DEFAULT) [address] [place] [address] [facility] [address] [place] [address] CO2 [Moles/Vol] 28 mmol/L Normal 22-32 [facility] Comment on above: Performed By: #### S BSC #### [facility] (DEFAULT) [address] [place] [address] [facility] [address] [place] [address] Creatinine [Mass/Vol] 0.63 mg/dL Normal 0.44-1.03 [facility] Comment on above: Performed By: #### S BSC #### [facility] (DEFAULT) [address] [place] [address] [facility] [address] [place] [address] Glucose [Mass/Vol] 103 mg/dL High 70-99 [facility] Comment on above: Performed By: #### S BSC #### [facility] (DEFAULT) [address] [place] [address] [facility] [address] [place] [address] Potassium [Moles/Vol] 2.9 mmol/L Low 3.4-4.8 [facility] Comment on above: Performed By: #### S BSC #### [facility] (DEFAULT) [address] [place] [address] [facility] [address] [place] [address] Protein [Mass/Vol] 5.9 g/dL Low 6.5-8.1 [facility] Comment on above: Performed By: #### S BSC #### [facility] (DEFAULT) [address] [place] [address] [facility] [address] [place] [address] Sodium [Moles/Vol] 138 mmol/L Normal 133-142 [facility] Comment on above: Performed By: #### S BSC #### [facility] (DEFAULT) [address] [place] [address] [facility] [address] [place] [address] Urea nitrogen [Mass/Vol] 7 mg/dL Low 8-26 [facility] Comment on above: Performed By: #### S BSC #### [facility] (DEFAULT) [address] [place] [address] [facility] [address] [place] [address] Urea nitrogen/Creatinine [Mass ratio] 11.1 mg/mg Normal 10.0-20.0 [facility] Comment on above: Performed By: #### S BSC #### [facility] (DEFAULT) [address] [place] [address] [facility] [address] [place] [address] Dietary Consultationon 07-11 Dietary Consultation Consult for [...] 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 Reports UBW of 108# since losing weight about 3-4 years ago which algins with weight on admit. Reports she is discharging after potassium infusion. Will continue to follow along appropriately. Electronically signed by Mehnaz Moran RD 07/11/24 15:56 EDT Normal [facility] Diff Autoon 07-11-2024 Baso Absolute 0.0 x10*3/mcL Normal 0.0-0.2 [facility] Comment on above: Performed By: #### A NAC #### [facility] [address] [place] [address] Basophils/100 WBC (Bld) 0.5 % Normal 0.0-1.5 [facility] Comment on above: Performed By: #### A NAC #### [facility] [address] [place] [address] Eos Absolute 0.0 x10*3/mcL Normal 0.0-0.4 [facility] Comment on above: Performed By: #### A NAC #### [address] [address] Eosinophils/100 WBC (Bld) 0.3 % Normal 0.0-5.4 [facility] Comment on above: Performed By: #### A NAC #### [address] [address] Lymph Absolute 2.1 x10*3/mcL Normal 1.0-4.8 [facility] Comment on above: Performed By: #### A NAC #### [address] [address] Lymphocytes/100 WBC (Bld) 24.0 % Low 27.2-40.8 [facility] Comment on above: Performed By: #### A NAC #### [address] [address] Metcalfe Absolute 0.5 x10*3/mcL Normal 0.1-1.1 [facility] Comment on above: Performed By: #### A NAC #### [address] [address] Monocytes/100 WBC (Bld) 6.1 % Normal 3.7-11.9 [facility] Comment on above: Performed By: #### A NAC #### [address] [address] Neutro Absolute 6.1 x10*3/mcL Normal 1.8-7.7 [facility] Comment on above: Performed By: #### A NAC #### [address] [address] Neutro Auto 69.1 % Normal 47.2-70.8 [facility] Comment on above: Performed By: #### A NAC #### [address] [address] Inpatient Clinical Summary 07-11-2024 Inpatient Clinical Summary [address] [address] Clinical Summary Person Information Name: Kati Thorne Age: 48 Years : 1975 Sex: Female PCP: Unavailable, Physician Marital Status: Phone: PCP: Race: White Ethnicity: Not or Language: Honduran Visit Id: Visit Reason: Speciality: Acuity: Enc Type: Observation Med Service: Surgery Arrival: 07/10/2024 11:21:35 Discharge: Dispo Type: Address: [address] [place] [id number] Diagnosis: Discharged To: Home Treatments: Devices/Equipment: Professional Skilled Services: Special Services and Community Resources: Mode of Discharge Transportation: Discharge Orders Discharge Special Instructions habitat conservation planner will contact you tomorrow regarding pain medication [...] range between ( 27.2 and 40.8 ) Metcalfe Auto: 6.1 % -- Normal range between [...] range between ( 36.0 and 46.0 ) Metcalfe Absolute: 0.5 x10 MCH: 32.5 pg -- [...] Immunizations Doc (more content not included)... Normal [facility] Potassiumon 07-11-2024 Potassium [Moles/Vol] 4.0 mmol/L Normal 3.4-4.8 [facility] Comment on above: Performed By: #### A NAC #### [facility] [address] [place] [id number] Progress Note-Nurseon 2023 Progress Note-Nurse Discharge instructions reviewed with pt and pt verbalizes understanding. Pt taken per wheelchair to private vehicle accompanied by tech. Electronically signed by Marysol Lopes 07/11/24 17:03 EDT Normal [facility] .eGFRon 07-10-2024 GFR/1.73 sq M.predicted MDRD (S/P/Bld) [Vol rate/Area] mL/min/{1.73_m2} Normal >=60 [facility] Comment on above: Result Comment: [facility] have implemented the eGFR calculation [...] years Performed By: #### A NAC #### [place] [id number] CBC w/ Diffon 07-10-2024 Erythrocyte distribution width (RBC) [Ratio] 13.5 % Normal 11.6-14.8 [facility] Comment on above: Performed By: #### A NAC #### [place] [id number] Hematocrit (Bld) [Volume fraction] 39.9 % Normal 36.0-46.0 [facility] Comment on above: Performed By: #### A NAC #### [place] [id number] Hemoglobin (Bld) [Mass/Vol] 13.3 g/dL Normal 12.0-16.0 [facility] Comment on above: Performed By: #### A NAC #### [place] [id number] MCH (RBC) [Entitic mass] 32.2 pg Normal 27.0-35.0 [facility] Comment on above: Performed By: #### A NAC #### [address] [address] MCHC 33.4 % Normal 31.0-37.0 [facility] Comment on above: Performed By: #### A NAC #### [place] [id number] MCV (RBC) [Entitic vol] 96.6 fL Normal 80.0-100.0 [facility] Comment on above: Performed By: #### A NAC #### [place] [id number] Platelet 182 x10*3/mcL Normal 150-450 [facility] Comment on above: Performed By: #### A NAC #### [place] [id number] Platelet mean volume (Bld) [Entitic vol] 8.9 fL Normal 6.7-10.6 [facility] Comment on above: Performed By: #### A NAC #### [place] [id number] RBC 4.13 x10*6/mcL Normal 3.80-5.20 [facility] Comment on above: Performed By: #### A NAC #### [address] [address] WBC 10.2 x10*3/mcL Normal 4.5-11.0 [facility] Comment on above: Performed By: #### A NAC #### [address] [address] CMPon 07-10-2024 Albumin [Mass/Vol] 3.8 g/dL Normal 3.2-4.9 [facility] Comment on above: Performed By: #### A NAC #### [address] [address] Albumin/Globulin [Mass ratio] 1.4 {ratio} Normal 1.1-2.2 [facility] Comment on above: Performed By: #### A NAC #### [address] [address] Alk Phos 75 IU/L Normal 32-91 [facility] Comment on above: Performed By: #### A NAC #### [address] [address] ALT [Catalytic activity/Vol] 13 U/L Low 14-54 [facility] Comment on above: Performed By: #### A NAC #### [address] [address] Anion gap [Moles/Vol] 10 mmol/L Normal 4-12 [facility] Comment on above: Performed By: #### A NAC #### [address] [address] AST [Catalytic activity/Vol] 17 U/L Normal 15-41 [facility] Comment on above: Performed By: #### A NAC #### [address] [address] Bili Total 0.9 mg/dL Normal 0.3-1.2 [facility] Comment on above: Performed By: #### A NAC #### [address] [address] Calcium [Mass/Vol] 8.6 mg/dL Normal 8.5-10.3 [facility] Comment on above: Performed By: #### A NAC #### [address] [address] Chloride [Moles/Vol] 103 mmol/L Normal 98-110 [facility] Comment on above: Performed By: #### A NAC #### [address] [address] CO2 [Moles/Vol] 27 mmol/L Normal 22-32 [facility] Comment on above: Performed By: #### A NAC #### [address] [address] Creatinine [Mass/Vol] 0.54 mg/dL Normal 0.44-1.03 [facility] Comment on above: Performed By: #### A NAC #### [address] [address] Glucose [Mass/Vol] 105 mg/dL High 70-99 [facility] Comment on above: Performed By: #### A NAC #### [address] [address] Potassium [Moles/Vol] 2.7 mmol/L Low 3.4-4.8 [facility] Comment on above: Performed By: #### A NAC #### [address] [address] Protein [Mass/Vol] 6.6 g/dL Normal 6.5-8.1 [facility] Comment on above: Performed By: #### A NAC #### [address] [address] Sodium [Moles/Vol] 140 mmol/L Normal 133-142 [facility] Comment on above: Performed By: #### A NAC #### [address] [address] Urea nitrogen [Mass/Vol] 9 mg/dL Normal 8-26 [facility] Comment on above: Performed By: #### A NAC #### [address] [address] Urea nitrogen/Creatinine [Mass ratio] 16.7 mg/mg Normal 10.0-20.0 [facility] Comment on above: Performed By: #### A NAC #### [address] [address] Diff Autoon 07-10-2024 Baso Absolute 0.1 x10*3/mcL Normal 0.0-0.2 [facility] Comment on above: Performed By: #### A NAC #### [address] [address] Basophils/100 WBC (Bld) 0.6 % Normal 0.0-1.5 [facility] Comment on above: Performed By: #### A NAC #### [address] [address] Eos Absolute 0.0 x10*3/mcL Normal 0.0-0.4 [facility] Comment on above: Performed By: #### A NAC #### [address] [address] Eosinophils/100 WBC (Bld) 0.3 % Normal 0.0-5.4 [facility] Comment on above: Performed By: #### A NAC #### [address] [address] Lymph Absolute 2.3 x10*3/mcL Normal 1.0-4.8 [facility] Comment on above: Performed By: #### A NAC #### [address] [address] Lymphocytes/100 WBC (Bld) 22.8 % Low 27.2-40.8 [facility] Comment on above: Performed By: #### A NAC #### [address] [address] Metcalfe Absolute 0.5 x10*3/mcL Normal 0.1-1.1 [facility] Comment on above: Performed By: #### A NAC #### [address] [address] Monocytes/100 WBC (Bld) 5.2 % Normal 3.7-11.9 [facility] Comment on above: Performed By: #### A NAC #### [address] [address] Neutro Absolute 7.2 x10*3/mcL Normal 1.8-7.7 [facility] Comment on above: Performed By: #### A NAC #### [address] [address] Neutro Auto 71.1 % High 47.2-70.8 [facility] Comment on above: Performed By: #### A NAC #### [address] [address] Magnesiumon 07-10-2024 Magnesium [Mass/Vol] 1.8 mg/dL Normal 1.7-2.4 [facility] Comment on above: Performed By: #### S BSC #### [facility] (DEFAULT) [address] [place] [address] [facility] [address] [place] [address] Operative Reporton Operative Report Indication for Surgery [...] Surgeon(s) Santo Recinos DO (Surgeon - Primary) Educator Senior Clinical None Anesthesia General Thaddeus RAMIREZ, Dominick Young (Prototype Technician) Zackery De Dios (Provider) Estimated Blood Loss [...] Santo Recinos DO 07/10/24 15:47 EDT Normal [facility] XR Finger 2nd Digit [...] Electronically Signed in Other Vendor System) Normal [facility] XR FINGER LEFT (MIN [...] MD 06/30/24 Final result Normal [facility] XR FINGER RIGHT (MIN 2 VIEWS [...] MD 06/09/24 Final result Normal [facility] XR NECK SOFT TISSUEon 2022 XR [...] ANGY SMALLS Date: 2023-02-23 13:14 Normal [facility] FREE T4on 02-20-2023 Free T4 [Mass/Vol] 0.65 ng/dL Critically low 0.76-1.46 [facility] Comment on above: Performed By: #### L ACT #### [facility] [address] [place] [address] [address] Jovanna Oneill TSH W/ REFLEX TO FT4on 02-20 TSH 5.032 uIU/mL Critically high 0.358-3.740 [facility] Comment on above: Performed By: #### L ACT #### [facility] [address] [place] [address] [address] Jovanna Oneill RESPIRATORY PANEL PLUSon Adenovirus Not detected Normal NOT DETECTED [facility] Comment on above: Performed By: #### R SPLUS ####[facility] [address] [place], [place] [address]Dr. Jovanna Oneill B. Parapertusis Not detected Normal NOT DETECTED [facility] Comment on above: Performed By: #### R SPLUS ####[facility] [address] [place], [place] [address]Dr. Jovanna Oneill B. Pertussis Not detected Normal NOT DETECTED [facility] Comment on above: Performed By: #### R SPLUS ####[facility] [address] [place], [place] [address]Dr. Jovanna Oneill Chlamydia Pneumoniae Not detected Normal NOT DETECTED [facility] Comment on above: Performed By: #### R SPLUS ####[facility] [address] [place], [place] [address]Dr. Jovanna Oneill Coronavirus 229E Not detected Normal NOT DETECTED [facility] Comment on above: Performed By: #### R SPLUS ####[facility] [address] [place], [place] [address]Dr. Jovanna Oneill Coronavirus HKU1 Not detected Normal NOT DETECTED [facility] Comment on above: Performed By: #### R SPLUS ####[facility] [address] [place], [place] [address]Dr. Jovanna Oneill Coronavirus NL63 Not detected Normal NOT DETECTED [facility] Comment on above: Performed By: #### R SPLUS ####[facility] [address] [place] [address]Dr. Jovanna Oneill Coronavirus OC43 Not detected Normal NOT DETECTED [facility] Comment on above: Performed By: #### R SPLUS ####[facility] [address] [place], [place] [address]Dr. Jovanna Oneill Influenza A H1 Not detected Normal NOT DETECTED [facility] Comment on above: Performed By: #### R SPLUS ####[facility] Szvnzboyex[address] [place], [place] [address]Dr. Jovanna Oneill Influenza A H1 2009 Not detected Normal NOT DETECTED [facility] Comment on above: Performed By: #### R SPLUS ####[facility] Xkeqi[address]fcn[address] [place], [place] [address]Dr. Jovanna Oneill Influenza A H3 Not detected Normal NOT DETECTED [facility] Comment on above: Performed By: #### R SPLUS ####[facility] Aootddaniz[address] [place], [place] [address]Dr. Jovanna Oneill Influenza B Not detected Normal NOT DETECTED [facility] Comment on above: Performed By: #### R SPLUS ####[facility] T[address]sqjwlhc[address] [place], [place] [address]Dr. Jovanna Oneill Metapneumovirus Not detected Normal NOT DETECTED [facility] Comment on above: Performed By: #### R SPLUS ####[facility] Sxpovemkxu[address] [place], [place] [address]Dr. Jovanna Oneill Mycoplas. Pneumoniae Not detected Normal NOT DETECTED [facility] Comment on above: Performed By: #### R SPLUS ####[facility] Mxkw[address]ult[address] [place], [place] [address]Dr. Jovanna Oneill Parainfluenza 1 Not detected Normal NOT DETECTED [facility] Comment on above: Performed By: #### R SPLUS ####[facility] Urxeuevxfl[address] [place], [place] [address]Dr. Jovanna Oneill Parainfluenza 2 Not detected Normal NOT DETECTED [facility] Comment on above: Performed By: #### R SPLUS ####[facility] [address] [address]Dr. Jovanna Oneill Parainfluenza 3 Not detected Normal NOT DETECTED [facility] Comment on above: Performed By: #### R SPLUS ####[facility] Erye[address] [place], [place] [address]Dr. Jovanna Oneill Parainfluenza 4 Not detected Normal NOT DETECTED [facility] Comment on above: Performed By: #### R SPLUS ####[facility] Zet[address]onx[address] [place], [place] [address]Dr. Jovanna Oneill Rhino/Enterovirus Not detected Normal NOT DETECTED [facility] Comment on above: Performed By: #### R SPLUS ####[facility] Rh[address] [place], [place] [address]Dr. Jovanna Oneill RP2 Header 1 RESPIRATORY PANEL: VIRUSES Normal [facility] Comment on above: Performed By: #### R SPLUS ####[facility] [address] [place], [place] [address]Dr. Jovanna Oneill RP2 Header 2 RESPIRATORY PANEL: BACTERIA Normal [facility] Comment on above: Performed By: #### R SPLUS ####[facility] Kkt[address]upaq[address] [place], [place] [address]Dr. Jovanna Oneill RSV Not detected Normal NOT DETECTED [facility] Comment on above: Performed By: #### R SPLUS ####[facility] [address] [place], [place] [address]Dr. Jovanna Oneill SARS-CoV-2 (COVID-19) RNA DUC+probe Ql (Unsp spec) Not detected Normal NOT DETECTED [facility] Comment on above: Performed By: #### R SPLUS ####[facility] Noewgsiwx[address] [place], [place] [address]Dr. Jovanna Oneill MG MAMM SCREEN 3D CHELLY CADon 01-12-2023 MG MAMM SCREEN 3D CHELLY CAD Patient: KATI THORNE Exam Date: 01/12/2023 : 1975 Gender:F Ordering : TATUM ONOFRE Admission #: [id number] Family : Order #: [id number] CLICK HERE TO VIEW EXAM RADIOLOGY REPORT [...] cervical cancer at age 40. LOCATION: [facility] BREAST COMPOSITION: Almost entirely fatty. FINDINGS: [...] Yanez MD on 01/12/2023 at 12:42 Normal [facility] XR DEXA BONE DENSITYon 01-12 XR [...] RJ YANEZ Date: 2023-01-12 17:10 Normal [facility] GABAPENTIN URINEon Gabapentin, Urine Negative Normal [facility] Comment on above: Performed By: #### G ABAP ####[facility] [address] [place], [place] [address]TxJhony Jovanna Nino DRUG SCREEN RAPID (URINE)on 11-14-2022 AMP Negative Normal NEGATIVE [facility] Comment on above: Performed By: #### V ITB12 #### [facility] [address] [place] [address] Dr. Jovanna Oneill BAR Negative Normal NEGATIVE [facility] Comment on above: Performed By: #### V ITB12 #### [facility] [address] [place] [address] Dr. Jovanna Oneill BUP Negative Normal NEGATIVE [facility] Comment on above: Performed By: #### V ITB12 #### [facility] [address] [place] [address] Dr. Jovanna Oneill BZO Negative Normal NEGATIVE [facility] Comment on above: Performed By: #### V ITB12 #### [facility] [address] [place] [address] Dr. Jovanna Oneill CARA Negative Normal NEGATIVE [facility] Comment on above: Performed By: #### V ITB12 #### [facility] [address] [place] [address] Dr. Jovanna Oneill CUT-OFFS SEE BELOW Normal [facility] Comment on above: Result Comment: AMP [...] ng/mL Performed By: #### V ITB12 #### [facility] [address] [place] [address] Dr. Jovanna Oneill DRUG CUT HEADER DRUG CLASS TEST SYSTEM CUT-OFF CONCENTRATIONS ARE FOLLOWS: Normal [facility] Comment on above: Performed By: #### V ITB12 #### [facility] [address] [place] [address] Dr. Jovanna Oneill mAMP Negative Normal NEGATIVE [facility] Comment on above: Performed By: #### V ITB12 #### [facility] [address] [address] [address] Jovanna Oneill MTD Negative Normal NEGATIVE [facility] Comment on above: Performed By: #### V ITB12 #### [facility] [address] [place] [address] Dr. Jovanna Oneill OPI Positive Abnormal NEGATIVE [facility] Comment on above: Performed By: #### V ITB12 #### [facility] [address] [place] [address] Dr. Jovanna Oneill OXY Negative Normal NEGATIVE [facility] Comment on above: Performed By: #### V ITB12 #### [facility] [address] [place] [address] Dr. Jovanna Oneill PCP Negative Normal NEGATIVE [facility] Comment on above: Performed By: #### V ITB12 #### [facility] [address] [place] [address] Dr. Jovanna Oneill PPX Negative Normal NEGATIVE [facility] Comment on above: Performed By: #### V ITB12 #### [facility] [address] [place] [address] Dr. Jovanna Oneill TCA Negative Normal NEGATIVE [facility] Comment on above: Performed By: #### V ITB12 #### [facility] [address] [place] [address] Dr. Jovanna Oneill THC Positive Abnormal NEGATIVE [facility] Comment on above: Performed By: #### V ITB12 #### [facility] [address] [place] [address] Dr. Jovanna Oneill CBC AUTO DIFFon 10-08-2022 BASO # 0.0 103/ul Normal 0.0-0.1 [facility] Comment on above: Performed By: #### C BC #### [facility] [address] [place] [address] Dr. Jovanna Oneill Basophils/100 WBC (Bld) 0.4 % Normal 0.2-2.0 [facility] Comment on above: Performed By: #### C BC #### [facility] [address] [place] [address] Dr. Jovanna Oneill EO # 0.1 103/ul Normal 0.0-0.7 [facility] Comment on above: Performed By: #### C BC #### [facility] [address] [place] [address] Dr. Jovanna Oneill Eosinophils/100 WBC (Bld) 1.3 % Normal 0.9-7.0 [facility] Comment on above: Performed By: #### C BC #### [facility] [address] [place] [address] Dr. Jovanna Oneill Erythrocyte distribution width (RBC) [Ratio] 12.0 % Normal 11.0-15.0 [facility] Comment on above: Performed By: #### C BC #### [facility] [address] [place] [address] Dr. Jovanna Oneill Hematocrit (Bld) [Volume fraction] 37.8 % Normal 36.0-48.0 [facility] Comment on above: Performed By: #### C BC #### [facility] [address] [place] [address] Dr. Jovanna Oneill Hemoglobin (Bld) [Mass/Vol] 12.8 g/dL Normal 12.0-16.0 [facility] Comment on above: Performed By: #### C BC #### [facility] [address] [place] [address] Dr. Jovanna Oneill IG # 0.02 10e3/ul Normal 0.00-0.03 [facility] Comment on above: Performed By: #### C BC #### [facility] [address] [place] [address] Dr. Jovanna Oneill IG % 0.2 % Normal 0.0-0.5 [facility] Comment on above: Performed By: #### C BC #### [facility] [address] [place] [address] Dr. Jovanna Oneill LYMPH # 3.5 103/ul Normal 1.2-3.8 [facility] Comment on above: Performed By: #### C BC #### [facility] [address] [place] [address] Dr. Jovanna Oneill Lymphocytes/100 WBC (Bld) 37.9 % Normal 20.5-60.0 [facility] Comment on above: Performed By: #### C BC #### [facility] [address] [place] [address] Dr. Jovanna Oneill MANUAL DIFF REQ NO Normal [facility] Comment on above: Performed By: #### C BC #### [facility] [address] [place] [address] Dr. Jovanna Oneill MCH (RBC) [Entitic mass] 31.7 pg Normal 26.7-34.0 [facility] Comment on above: Performed By: #### C BC #### [facility] [address] [place] [address] Dr. Jovanna Oneill MCHC (RBC) [Mass/Vol] 33.9 g/dL Normal 29.9-35.2 [facility] Comment on above: Performed By: #### C BC #### [facility] [address] [place] [address] Dr. Jovanna Oneill MCV (RBC) [Entitic vol] 93.6 fL Normal 81.0-99.0 [facility] Comment on above: Performed By: #### C BC #### [facility] [address] [place] [address] Dr. Jovanna Oneill MONO # 0.5 103/ul Normal 0.3-0.8 [facility] Comment on above: Performed By: #### C BC #### [facility] [address] [place] [address] Dr. Jovanna Oneill Monocytes/100 WBC (Bld) 4.8 % Normal 1.7-12.0 [facility] Comment on above: Performed By: #### C BC #### [facility] [address] [place] [address] Dr. Jovanna Oneill NEUT # 5.1 103/ul Normal 1.4-6.5 [facility] Comment on above: Performed By: #### C BC #### [facility] [address] [place] [address] Dr. Jovanna Oneill Neutrophils/100 WBC (Bld) 55.4 % Normal 43.0-75.0 [facility] Comment on above: Performed By: #### C BC #### [facility] [address] [address] [address] Jovanna Oneill Platelet mean volume (Bld) [Entitic vol] 10.2 fL Normal 9.5-13.5 [facility] Comment on above: Performed By: #### C BC #### [facility] [address] [address] [address] Jovanna Oneill PLT 181 103/ul Normal 150-450 [facility] Comment on above: Performed By: #### C BC #### [facility] [address] [address] [address] Jovanna Oneill RBC 4.04 106/ul Critically low 4.20-5.40 [facility] Comment on above: Performed By: #### C BC #### [facility] [address] [address] [address] Jovanna Oneill WBC 9.3 103/ul Normal 4.0-11.0 [facility] Comment on above: Performed By: #### C BC #### [facility] [address] [address] [address] Jovanna Oneill CRPon 10-08-2022 CRP [Mass/Vol] mg/L Normal <=1.0 [facility] Comment on above: Performed By: #### B MP, CRP ####[facility] [address] [address]Dr. Jovanna Oneill LACTATE/LACTIC ACIDon 2021 Lactate [Moles/Vol] 0.4 mmol/L Normal 0.4-1.9 [facility] Comment on above: Performed By: #### L ACT #### [facility] [address] [address] [address] Jovanna Oneill PROF CHEM 8 (BAS METB)on Anion gap [Moles/Vol] 12.6 mmol/L Normal [facility] Comment on above: Performed By: #### B MP, CRP #### [facility] [address] [address] [address] Jovanna Oneill Calcium [Mass/Vol] 8.6 mg/dL Normal 8.5-10.1 [facility] Comment on above: Performed By: #### B MP, CRP #### [facility] [address] [address] [address] Jovanna Oneill Chloride [Moles/Vol] 104 mmol/L Normal 98-107 [facility] Comment on above: Performed By: #### B MP, CRP #### [facility] [address] [address] [address] Jovanna Oneill CO2 [Moles/Vol] 26.8 mmol/L Normal 21.0-32.0 [facility] Comment on above: Performed By: #### B MP, CRP #### [facility] [address] [place] [address] Dr. Jovanna Oneill Creatinine [Mass/Vol] 0.52 mg/dL Critically low 0.55-1.02 [facility] Comment on above: Performed By: #### B MP, CRP #### [facility] [address] [place] [address] Dr. Jovanna Oneill EGFR-AF ERITREAN >60 Normal >=60 [facility] Comment on above: Performed By: #### B MP, CRP #### [facility] [address] [place] [address] Dr. Jovanna Oneill EGFR-NON AF ERITREAN >60 Normal >=60 [facility] Comment on above: Performed By: #### B MP, CRP #### [facility] [address] [place] [address] Dr. Jovanna Oneill Glucose [Mass/Vol] 93 mg/dL Normal 74-106 [facility] Comment on above: Performed By: #### B MP, CRP #### [facility] [address] [place] [address] Dr. Jovanna Oneill Potassium [Moles/Vol] 3.4 mmol/L Critically low 3.5-5.1 [facility] Comment on above: Performed By: #### B MP, CRP #### [facility] [address] [place], [place] [address] Dr. Jovanna Oneill Sodium [Moles/Vol] 140 mmol/L Normal 136-145 [facility] Comment on above: Performed By: #### B MP, CRP #### [facility] [address] [place], [place] [address] Dr. Jovanna Oneill Urea nitrogen [Mass/Vol] 11.0 mg/dL Normal 7.0-18.0 [facility] Comment on above: Performed By: #### B MP, CRP #### [facility] [id number] Jovanna Oneill Urea nitrogen/Creatinine [Mass ratio] 21.2 mg/mg Normal [facility] Comment on above: Performed By: #### B MP, CRP #### [facility] [id number] Jovanna Oneill SED RATE [facility] 2021 SED RATE 17 mm/hr Normal <=20 [facility] Comment on above: Performed By: #### S EDR ####[facility] [address] [place], [place] [address]Dr. Jovanna Oneill Physician Referralon 022 Physician Referral [id number]:127 Normal [facility] Physician Referral [id number] 1 [id number]:127 Normal [facility] PROF 14(COMP METB)on 022 Albumin [Mass/Vol] 3.4 g/dL Normal 3.4-5.0 [facility] Comment on above: Performed By: #### V ITB12 #### [facility] [id number] Jovanna Oneill Albumin/Globulin [Mass ratio] 1.1 {ratio} Normal [facility] Comment on above: Performed By: #### V ITB12 #### [facility] [address] [address] [address] Jovanna Oneill ALP [Catalytic activity/Vol] 88 U/L Normal 46-116 [facility] Comment on above: Performed By: #### V ITB12 #### [facility] [address] [address] [address] Jovanna Oneill ALT [Catalytic activity/Vol] 11 U/L Critically low 14-59 [facility] Comment on above: Performed By: #### V ITB12 #### [facility] [address] [address] [address] Jovanna Oneill Anion gap [Moles/Vol] 8.7 mmol/L Normal [facility] Comment on above: Performed By: #### V ITB12 #### [facility] [address] [address] [address] Jovanna Oneill AST [Catalytic activity/Vol] 13 U/L Critically low 15-37 [facility] Comment on above: Performed By: #### V ITB12 #### [facility] [address] [place] [address] Dr. Jovanna Oneill Bilirubin [Mass/Vol] 0.6 mg/dL Normal 0.2-1.0 [facility] Comment on above: Performed By: #### V ITB12 #### [facility] [address] [address] [address] Jovanna Oneill Calcium [Mass/Vol] 8.7 mg/dL Normal 8.5-10.1 [facility] Comment on above: Performed By: #### V ITB12 #### [facility] [address] [address] [address] Jovanna Oneill Chloride [Moles/Vol] 104 mmol/L Normal 98-107 [facility] Comment on above: Performed By: #### V ITB12 #### [facility] [address] [address] [address] Jovanna Oneill CO2 [Moles/Vol] 31.9 mmol/L Normal 21.0-32.0 [facility] Comment on above: Performed By: #### V ITB12 #### [facility] [address] [address] [address] Jovanna Oneill Creatinine [Mass/Vol] 0.65 mg/dL Normal 0.55-1.02 [facility] Comment on above: Performed By: #### V ITB12 #### [facility] [address] [address] [address] Jovanna Oneill EGFR-AF ERITREAN >60 Normal >=60 [facility] Comment on above: Performed By: #### V ITB12 #### [facility] [address] [address] [address] Jovanna Oneill EGFR-NON AF ERITREAN >60 Normal >=60 [facility] Comment on above: Performed By: #### V ITB12 #### [facility] [address] [address] [address] Jovanna Oneill Globulin (S) [Mass/Vol] 3.2 g/dL Normal [facility] Comment on above: Performed By: #### V ITB12 #### [facility] [address] [place] [address] Dr. Jovanna Oneill Glucose [Mass/Vol] 91 mg/dL Normal 74-106 [facility] Comment on above: Performed By: #### V ITB12 #### [facility] [address] [address] [address] Jovanna Oneill Potassium [Moles/Vol] 3.6 mmol/L Normal 3.5-5.1 [facility] Comment on above: Performed By: #### V ITB12 #### [facility] [address] [address] [address] Jovanna Oneill Protein [Mass/Vol] 6.6 g/dL Normal 6.4-8.2 [facility] Comment on above: Performed By: #### V ITB12 #### [facility] [address] [address] [address] Jovanna Oneill Sodium [Moles/Vol] 141 mmol/L Normal 136-145 [facility] Comment on above: Performed By: #### V ITB12 #### [facility] [address] [address] [address] Jovanna Oneill Urea nitrogen [Mass/Vol] 4.0 mg/dL Critically low 7.0-18.0 [facility] Comment on above: Performed By: #### V ITB12 #### [facility] [address] [place] [address] Dr. Jovanna Oneill Urea nitrogen/Creatinine [Mass ratio] 6.2 mg/mg Normal [facility] Comment on above: Performed By: #### V ITB12 #### [facility] [address] [place] [address] Dr. Jovanna Oneill HEPATITIS C AB CASCADE TO QU ANT PCR GENOon 09-13-2022 HCV AB <0.1 Normal 0.0-0.9 [facility] Comment on above: Performed By: #### H EPCASC #### [facility] [address] [place] [address] Dr. Jovanna Oneill Interpretation: Comment Normal [facility] Comment on above: Result Comment: Nega tive Not infected with HCV, unless recent infection is suspected or other evidence exists to indicate HCV infection. Performed By: #### H EPCASC #### [facility] [address] [place] [address] Dr. Jovanna Oneill CBC AUTO DIFFon 09-12-2022 BASO # 0.0 103/ul Normal 0.0-0.1 [facility] Comment on above: Performed By: #### C BC #### [facility] [address] [place] [address] Dr. Jovanna Oneill Basophils/100 WBC (Bld) 0.3 % Normal 0.2-2.0 [facility] Comment on above: Performed By: #### C BC #### [facility] [address] [place] [address] Dr. Jovanna Oneill EO # 0.1 103/ul Normal 0.0-0.7 [facility] Comment on above: Performed By: #### C BC #### [facility] [address] [place] [address] Dr. Jovanna Oneill Eosinophils/100 WBC (Bld) 0.7 % Critically low 0.9-7.0 [facility] Comment on above: Performed By: #### C BC #### [facility] [address] [place] [address] Dr. Jovanna Oneill Erythrocyte distribution width (RBC) [Ratio] 12.3 % Normal 11.0-15.0 [facility] Comment on above: Performed By: #### C BC #### [facility] [address] [place] [address] Dr. Jovanna Oneill Hematocrit (Bld) [Volume fraction] 40.2 % Normal 36.0-48.0 [facility] Comment on above: Performed By: #### C BC #### [facility] [address] [place] [address] Dr. Jovanna Oneill Hemoglobin (Bld) [Mass/Vol] 13.4 g/dL Normal 12.0-16.0 [facility] Comment on above: Performed By: #### C BC #### [facility] [address] [place] [address] Dr. Jovanna Oneill IG # 0.02 10e3/ul Normal 0.00-0.03 [facility] Comment on above: Performed By: #### C BC #### [facility] [address] [place] [address] Dr. Jovanna Oneill IG % 0.3 % Normal 0.0-0.5 [facility] Comment on above: Performed By: #### C BC #### [facility] [address] [place] [address] Dr. Jovanna Oneill LYMPH # 2.2 103/ul Normal 1.2-3.8 [facility] Comment on above: Performed By: #### C BC #### [facility] [address] [place] [address] Dr. Jovanna Oneill Lymphocytes/100 WBC (Bld) 31.9 % Normal 20.5-60.0 [facility] Comment on above: Performed By: #### C BC #### [facility] [address] [place] [address] Dr. Jovanna Oneill MANUAL DIFF REQ NO Normal [facility] Comment on above: Performed By: #### C BC #### [facility] [address] [place] [address] Dr. Jovanna Oneill MCH (RBC) [Entitic mass] 31.8 pg Normal 26.7-34.0 [facility] Comment on above: Performed By: #### C BC #### [facility] [address] [place] [address] Dr. Jovanna Oneill MCHC (RBC) [Mass/Vol] 33.3 g/dL Normal 29.9-35.2 [facility] Comment on above: Performed By: #### C BC #### [facility] [address] [place] [address] Dr. Jovanna Oneill MCV (RBC) [Entitic vol] 95.5 fL Normal 81.0-99.0 [facility] Comment on above: Performed By: #### C BC #### [facility] [address] [place] [address] Dr. Jovanna Oneill MONO # 0.3 103/ul Normal 0.3-0.8 [facility] Comment on above: Performed By: #### C BC #### [facility] [address] [place] [address] Dr. Jovanna Oneill Monocytes/100 WBC (Bld) 4.4 % Normal 1.7-12.0 [facility] Comment on above: Performed By: #### C BC #### [facility] [address] [place] [address] Dr. Jovanna Oneill NEUT # 4.4 103/ul Normal 1.4-6.5 [facility] Comment on above: Performed By: #### C BC #### [facility] [address] [place] [address] Dr. Jovanna Oneill Neutrophils/100 WBC (Bld) 62.4 % Normal 43.0-75.0 [facility] Comment on above: Performed By: #### C BC #### [facility] [address] [place] [address] Dr. Jovanna Oneill Platelet mean volume (Bld) [Entitic vol] 10.9 fL Normal 9.5-13.5 [facility] Comment on above: Performed By: #### C BC #### [facility] [address] [place] [address] Dr. Jovanna Oneill PLT 179 103/ul Normal 150-450 [facility] Comment on above: Performed By: #### C BC #### [facility] [facility] [address] [place] [address] Dr. Jovanna Oneill RBC 4.21 106/ul Normal 4.20-5.40 [facility] Comment on above: Performed By: #### C BC #### [facility] [address] [place] [address] Dr. Jovanna Oneill WBC 7.0 103/ul Normal 4.0-11.0 [facility] Comment on above: Performed By: #### C BC #### [facility] [address] [place] [address] Dr. Jovanna Oneill GLYCOHEMOGLOBIN A1Con 2021 ADA RECOMMENDATION SEE BELOW Normal [facility] Comment on above: Result Comment: ADA RECOMMENDED LIMIT 4.0 - 6.0 ADA THERAPEUTIC TARGET < 7.0 ACTION SUGGESTED > 7.0 Performed By: #### L ACT #### [facility] [address] [place] [address] Dr. Jovanna Oneill Glucose [Mass/Vol] 105 mg/dL Normal [facility] Comment on above: Performed By: #### L ACT #### [facility] [address] [place] [address] Dr. Jovanna Oneill HbA1c (Bld) [Mass fraction] 5.3 % Normal 4.5-6.2 [facility] Comment on above: Performed By: #### L ACT #### [facility] [address] [place] [address] Dr. Jovanna Oneill LIPID PROFILEon 09-12-2022 CHOL-HDL RATIO NORM SEE BELOW Normal [facility] Comment on above: Result Comment: 3.3 - 4.4 LOW RISK 4.4 - 7.1 AVERAGE RISK 7.1 - 11.0 MODERATE RISK >11.0 HIGH RISK Performed By: #### C MP, LIPID #### [facility] [address] [place] [address] Dr. Jovanna Oneill Cholesterol [Mass/Vol] 135 mg/dL Normal <=200 [facility] Comment on above: Performed By: #### C MP, LIPID #### [facility] [address] [place] [address] Dr. Jovanna Oneill Cholesterol in HDL [Mass/Vol] 35 mg/dL Critically low 40-60 [facility] Comment on above: Performed By: #### C MP, LIPID #### [facility] [address] [place] [address] Dr. Jovanna Oneill Cholesterol in LDL [Mass/Vol] 84.8 mg/dL Normal [facility] Comment on above: Performed By: #### C MP, LIPID #### [facility] [address] [place] [address] Dr. Jovanna Oneill Cholesterol.total/Ch olesterol in HDL [Mass ratio] 3.9 {ratio} Normal [facility] Comment on above: Performed By: #### C MP, LIPID #### [facility] [address] [place] [address] Dr. Jovanna Oneill HDL NORMAL > or = 60 mg/dl - LO W CARDIOVASCULAR RISK <40 mg/dl - HIGH CARDIOVASCULAR RISK Normal [facility] Comment on above: Performed By: #### C MP, LIPID #### [facility] [address] [place] [address] Dr. Jovanna Oneill LDL CALC NORMAL SEE BELOW Normal [facility] Comment on above: Result Comment: <100 mg/dl OPTIMAL 100 - 129 mg/dl NEAR OR ABOVE OPTIMAL 130 - 159 mg/dl BORDERLINE HIGH 160 - 189 mg/dl HIGH >190 mg/dl VERY HIGH Performed By: #### C MP, LIPID #### [facility] [address] [place] [address] Dr. Jovanna Oneill Triglyceride [Mass/Vol] 76 mg/dL Normal <=150 [facility] Comment on above: Performed By: #### C MP, LIPID #### [facility] [address] [place] [address] Dr. Jovanna Oneill VLDL CALC 15.2 mg/dL Normal [facility] Comment on above: Performed By: #### C MP, LIPID #### [facility] [address] [place] [address] Dr. Jovanna Oneill PROF 14(COMP METB)on 022 Albumin [Mass/Vol] 3.5 g/dL Normal 3.4-5.0 [facility] Comment on above: Performed By: #### C MP, LIPID #### [facility] [address] [place] [address] Dr. Jovanna Oneill Albumin/Globulin [Mass ratio] 1.1 {ratio} Normal [facility] Comment on above: Performed By: #### C MP, LIPID #### [facility] [address] [place] [address] Dr. Jovanna Oneill ALP [Catalytic activity/Vol] 79 U/L Normal 46-116 [facility] Comment on above: Performed By: #### C MP, LIPID #### [facility] [address] [place] [address] Dr. Jovanna Oneill ALT [Catalytic activity/Vol] 15 U/L Normal 14-59 [facility] Comment on above: Performed By: #### C MP, LIPID #### [facility] [address] [place] [address] Dr. Jovanna Oneill Anion gap [Moles/Vol] 4.9 mmol/L Normal [facility] Comment on above: Performed By: #### C MP, LIPID #### [facility] [address] [place] [address] Dr. Jovanna Oneill AST [Catalytic activity/Vol] 17 U/L Normal 15-37 [facility] Comment on above: Performed By: #### C MP, LIPID #### [facility] [address] [place] [address] Dr. Jovanna Oneill Bilirubin [Mass/Vol] 0.4 mg/dL Normal 0.2-1.0 [facility] Comment on above: Performed By: #### C MP, LIPID #### [facility] [address] [place] [address] Dr. Jovanna Oneill Calcium [Mass/Vol] 8.7 mg/dL Normal 8.5-10.1 [facility] Comment on above: Performed By: #### C MP, LIPID #### [facility] [address] [place] [address] Dr. Jovanna Oneill Chloride [Moles/Vol] 103 mmol/L Normal 98-107 [facility] Comment on above: Performed By: #### C MP, LIPID #### [facility] [address] [address] [address] Jovanna Oneill CO2 [Moles/Vol] 35.8 mmol/L Critically high 21.0-32.0 [facility] Comment on above: Performed By: #### C MP, LIPID #### [facility] [address] [place] [address] Dr. Jovanna Oneill Creatinine [Mass/Vol] 0.70 mg/dL Normal 0.55-1.02 [facility] Comment on above: Performed By: #### C MP, LIPID #### [facility] [address] [place] [address] Dr. Jovanna Oneill EGFR-AF ERITREAN >60 Normal >=60 [facility] Comment on above: Performed By: #### C MP, LIPID #### [facility] [address] [place] [address] Dr. Jovanna Oneill EGFR-NON AF ERITREAN >60 Normal >=60 [facility] Comment on above: Performed By: #### C MP, LIPID #### [facility] [address] [place] [address] Dr. Jovanna Oneill Globulin (S) [Mass/Vol] 3.2 g/dL Normal [facility] Comment on above: Performed By: #### C MP, LIPID #### [facility] [address] [place] [address] Dr. Jovanna Oneill Glucose [Mass/Vol] 86 mg/dL Normal 74-106 [facility] Comment on above: Performed By: #### C MP, LIPID #### [facility] [address] [place] [address] Dr. Jovanna Oneill Potassium [Moles/Vol] 2.7 mmol/L Critically low 3.5-5.1 [facility] Comment on above: Performed By: #### C MP, LIPID #### [facility] [address] [place] [address] Dr. Jovanna Oneill Protein [Mass/Vol] 6.7 g/dL Normal 6.4-8.2 [facility] Comment on above: Performed By: #### C MP, LIPID #### [facility] [address] [address] [address] Jovanna Oneill Sodium [Moles/Vol] 141 mmol/L Normal 136-145 [facility] Comment on above: Performed By: #### C MP, LIPID #### [facility] [address] [address] [address] Jovanna Oneill Urea nitrogen [Mass/Vol] 6.0 mg/dL Critically low 7.0-18.0 [facility] Comment on above: Performed By: #### C MP, LIPID #### [facility] [address] [address] [address] Jovanna Oneill Urea nitrogen/Creatinine [Mass ratio] 8.6 mg/mg Normal [facility] Comment on above: Performed By: #### C MP, LIPID #### [facility] [address] [address] [address] Jovanna Oneill US THYROIDon 09-12-2022 US [...] by: FRANCES AGUSTIN Date: 2022-09-12 11:52 Normal [facility] VITAMIN B12on 09-12-2022 Cobalamin (Vitamin B12) [Mass/Vol] 280.0 pg/mL Normal 193.0-986.0 [facility] Comment on above: Performed By: #### V ITB12 #### [facility] [address] CSPINE WO CONon [...] MAN VILLALOBOS Date: 2022-08-24 18:11 Normal [facility] CT NECK ST W CONon 2 [...] WOO PAIGE Date: 2022-08-16 23:10 Normal [facility] CBC AUTO DIFFon 08-16-2022 BASO # 0.0 103/ul Normal 0.0-0.1 [facility] Comment on above: Performed By: #### C BC ####[facility] [address] [address]Dr. Rosaliareagan Oneill Basophils/100 WBC (Bld) 0.2 % Normal 0.2-2.0 [facility] Comment on above: Performed By: #### C BC ####[facility] [address] [address]Dr. Jovanna Oneill EO # 0.1 103/ul Normal 0.0-0.7 [facility] Comment on above: Performed By: #### C BC ####[facility] [address] [address]Dr. Jovanna Oneill Eosinophils/100 WBC (Bld) 0.7 % Critically low 0.9-7.0 [facility] Comment on above: Performed By: #### C BC ####[facility] [address] [place], [place] [id number]. Rosaliareagan Oneill Erythrocyte distribution width (RBC) [Ratio] 12.1 % Normal 11.0-15.0 [facility] Comment on above: Performed By: #### C BC ####[facility] [address] [address]Dr. Rosaliareagan Oneill Hematocrit (Bld) [Volume fraction] 38.8 % Normal 36.0-48.0 [facility] Comment on above: Performed By: #### C BC ####[facility] [address] [place], [place] [address]Dr. Rosaliareagan Oneill Hemoglobin (Bld) [Mass/Vol] 12.8 g/dL Normal 12.0-16.0 [facility] Comment on above: Performed By: #### C BC ####[facility] [address] [id number]. Jovanna Oneill IG # 0.06 10e3/ul Critically high 0.00-0.03 [facility] Comment on above: Performed By: #### C BC ####[facility] [address] [id number]. Jovanna Oneill IG % 0.4 % Normal 0.0-0.5 [facility] Comment on above: Performed By: #### C BC ####[facility] [address] [address]Dr. Jovanna Nino LYMPH # 2.5 103/ul Normal 1.2-3.8 [facility] Comment on above: Performed By: #### C BC ####[facility] [address] [address]Dr. Jovanna Oneill Lymphocytes/100 WBC (Bld) 18.1 % Critically low 20.5-60.0 [facility] Comment on above: Performed By: #### C BC ####[facility] [address] [address]Dr. Rosaliareagan Oneill MANUAL DIFF REQ NO Normal [facility] Comment on above: Performed By: #### C BC ####[facility] [address] [address]Dr. Jovanna Oneill MCH (RBC) [Entitic mass] 32.0 pg Normal 26.7-34.0 [facility] Comment on above: Performed By: #### C BC ####[facility] [address] [address]Dr. Jovanna Oneill MCHC (RBC) [Mass/Vol] 33.0 g/dL Normal 29.9-35.2 [facility] Comment on above: Performed By: #### C BC ####[facility] [address] [address]Dr. Jovanna Oneill MCV (RBC) [Entitic vol] 97.0 fL Normal 81.0-99.0 [facility] Comment on above: Performed By: #### C BC ####[facility] [address] [id number]. Jovanna Oneill MONO # 0.6 103/ul Normal 0.3-0.8 [facility] Comment on above: Performed By: #### C BC ####[facility] [address] [id number]. Jovanna Oneill Monocytes/100 WBC (Bld) 4.5 % Normal 1.7-12.0 [facility] Comment on above: Performed By: #### C BC ####[facility] [address] [id number]. Jovanna Oneill NEUT # 10.4 103/ul Critically high 1.4-6.5 [facility] Comment on above: Performed By: #### C BC ####[facility] [address] [id number]. Jovanna Oneill Neutrophils/100 WBC (Bld) 76.1 % Critically high 43.0-75.0 [facility] Comment on above: Performed By: #### C BC ####[facility] [address] [id number]. Jovanna Oneill Platelet mean volume (Bld) [Entitic vol] 10.9 fL Normal 9.5-13.5 [facility] Comment on above: Performed By: #### C BC ####[facility] [address] [id number]. Jovanna Oneill PLT 193 103/ul Normal 150-450 [facility] Comment on above: Performed By: #### C BC ####[facility] [address] [id number]. Jovanna Oneill RBC 4.00 106/ul Critically low 4.20-5.40 [facility] Comment on above: Performed By: #### C BC ####[facility] [address] [id number]. Jovanna Oneill WBC 13.7 103/ul Critically high 4.0-11.0 [facility] Comment on above: Performed By: #### C BC ####[facility] [address] [address]Dr. Jovanna Oneill FREE T4on 08-16-2022 Free T4 [Mass/Vol] 0.68 ng/dL Critically low 0.76-1.46 [facility] Comment on above: Performed By: #### L ACT #### [facility] [address] [place] [address] Dr. Jovanna Oneill HS-CRPon 08-16-2022 HS-CRP 1.04 mg/L Normal <=3.00 [facility] Comment on above: Performed By: #### L ACT #### [facility] [address] [place] [address] Dr. Jovanna Oneill PROF 14(COMP METB)on 022 Albumin [Mass/Vol] 3.5 g/dL Normal 3.4-5.0 [facility] Comment on above: Performed By: #### V ITB12 #### [facility] [address] [place] [address] Dr. Jovanna Oneill Albumin/Globulin [Mass ratio] 1.1 {ratio} Normal [facility] Comment on above: Performed By: #### V ITB12 #### [facility] [address] [place] [address] Dr. Jovanna Oneill ALP [Catalytic activity/Vol] 82 U/L Normal 46-116 [facility] Comment on above: Performed By: #### V ITB12 #### [facility] [address] [place] [address] Dr. Jovanna Oneill ALT [Catalytic activity/Vol] 17 U/L Normal 14-59 [facility] Comment on above: Performed By: #### V ITB12 #### [facility] [address] [address] [address] Jovanna Oneill Anion gap [Moles/Vol] 9.6 mmol/L Normal [facility] Comment on above: Performed By: #### V ITB12 #### [facility] [address] [place] [address] Dr. Jovanna Oneill AST [Catalytic activity/Vol] 17 U/L Normal 15-37 [facility] Comment on above: Performed By: #### V ITB12 #### [facility] [address] [address] [address] Jovanna Oneill Bilirubin [Mass/Vol] 0.4 mg/dL Normal 0.2-1.0 [facility] Comment on above: Performed By: #### V ITB12 #### [facility] [address] [place] [address] Dr. Jovanna Oneill Calcium [Mass/Vol] 8.7 mg/dL Normal 8.5-10.1 [facility] Comment on above: Performed By: #### V ITB12 #### [facility] [address] [place] [address] Dr. Jovanna Oneill Chloride [Moles/Vol] 105 mmol/L Normal 98-107 [facility] Comment on above: Performed By: #### V ITB12 #### [facility] [address] [place] [address] Dr. Jovanna Oneill CO2 [Moles/Vol] 30.9 mmol/L Normal 21.0-32.0 [facility] Comment on above: Performed By: #### V ITB12 #### [facility] [address] [place] [address] Dr. Jovanna Oneill Creatinine [Mass/Vol] 0.69 mg/dL Normal 0.55-1.02 [facility] Comment on above: Performed By: #### V ITB12 #### [facility] [address] [place] [address] Dr. Jovanna Oneill EGFR-AF ERITREAN >60 Normal >=60 [facility] Comment on above: Performed By: #### V ITB12 #### [facility] [address] [place] [address] Dr. Jovanna Oneill EGFR-NON AF ERITREAN >60 Normal >=60 [facility] Comment on above: Performed By: #### V ITB12 #### [facility] [address] [place] [address] Dr. Jovanna Oneill Globulin (S) [Mass/Vol] 3.1 g/dL Normal [facility] Comment on above: Performed By: #### V ITB12 #### [facility] [address] [address] [address] Jovanna Oneill Glucose [Mass/Vol] 84 mg/dL Normal 74-106 [facility] Comment on above: Performed By: #### V ITB12 #### [facility] [address] [address] [address] Jovanna Oneill Potassium [Moles/Vol] 3.5 mmol/L Normal 3.5-5.1 [facility] Comment on above: Performed By: #### V ITB12 #### [facility] [address] [place] [address] Dr. Jovanna Oneill Protein [Mass/Vol] 6.6 g/dL Normal 6.4-8.2 [facility] Comment on above: Performed By: #### V ITB12 #### [facility] [address] [place] [address] Dr. Jovanna Oneill Sodium [Moles/Vol] 142 mmol/L Normal 136-145 [facility] Comment on above: Performed By: #### V ITB12 #### [facility] [address] [place] [address] Dr. Jovanna Oneill Urea nitrogen [Mass/Vol] 7.0 mg/dL Normal 7.0-18.0 [facility] Comment on above: Performed By: #### V ITB12 #### [facility] [address] [place] [address] Dr. Jovanna Oneill Urea nitrogen/Creatinine [Mass ratio] 10.1 mg/mg Normal [facility] Comment on above: Performed By: #### V ITB12 #### [facility] [address] [place] [address] Dr. Jovanna Oneill PROF CHEM 8 (BAS METB)on Anion gap [Moles/Vol] 8.5 mmol/L Normal [facility] Comment on above: Performed By: #### L ACT #### [facility] [address] [place] [address] Dr. Jovanna Oneill Calcium [Mass/Vol] 8.3 mg/dL Critically low 8.5-10.1 [facility] Comment on above: Performed By: #### L ACT #### [facility] [address] [address] [address] Jovanna Oneill Chloride [Moles/Vol] 105 mmol/L Normal 98-107 [facility] Comment on above: Performed By: #### L ACT #### [facility] [address] [address] [address] Jovanna Oneill CO2 [Moles/Vol] 28.4 mmol/L Normal 21.0-32.0 [facility] Comment on above: Performed By: #### L ACT #### [facility] [address] [address] [address] Jovanna Oneill Creatinine [Mass/Vol] 0.72 mg/dL Normal 0.55-1.02 [facility] Comment on above: Performed By: #### L ACT #### [facility] [address] [address] [address] Jovanna Oneill EGFR-AF ERITREAN >60 Normal >=60 [facility] Comment on above: Performed By: #### L ACT #### [facility] [address] [address] [address] Jovanna Oneill EGFR-NON AF ERITREAN >60 Normal >=60 [facility] Comment on above: Performed By: #### L ACT #### [facility] [address] [address] [address] Jovanna Oneill Glucose [Mass/Vol] 242 mg/dL Critically high 74-106 [facility] Comment on above: Performed By: #### L ACT #### [facility] [address] [address] [address] Jovanna Oneill Potassium [Moles/Vol] 2.9 mmol/L Critically low 3.5-5.1 [facility] Comment on above: Performed By: #### L ACT #### [facility] [address] [address] [address] Jovanna Oneill Sodium [Moles/Vol] 138 mmol/L Normal 136-145 [facility] Comment on above: Performed By: #### L ACT #### [facility] [address] [place], [place] [address] Dr. Jovanna Oneill Urea nitrogen [Mass/Vol] 5.0 mg/dL Critically low 7.0-18.0 [facility] Comment on above: Performed By: #### L ACT #### [facility] [address] [place], [place] [address] Dr. Jovanna Oneill Urea nitrogen/Creatinine [Mass ratio] 6.9 mg/mg Normal [facility] Comment on above: Performed By: #### L ACT #### [facility] [address] [place], [place] [address] Dr. Jovanna Oneill TSHon 08-16-2022 TSH 4.977 uIU/mL Critically high 0.358-3.740 [facility] Comment on above: Performed By: #### V [id number] #### [facility] [address] [address] [address] ABD/PELVIS WO CONon [...] Ayaka LEON Date: 2022-05-02 03:06 Normal [facility] DRUG SCREEN RAPID (URINE)on 05-02-2022 AMP Negative Normal NEGATIVE [facility] Comment on above: Performed By: #### L ACT #### [facility] [address] [address] [address] Jovanna Oneill BAR Negative Normal NEGATIVE [facility] Comment on above: Performed By: #### L ACT #### [facility] [address] [address] [address] Jovanna Oneill BUP Negative Normal NEGATIVE [facility] Comment on above: Performed By: #### L ACT #### [facility] [address] [place] [address] Dr. Jovanna Oneill BZO Negative Normal NEGATIVE [facility] Comment on above: Performed By: #### L ACT #### [facility] [address] [place] [address] Dr. Jovanna Oneill CARA Negative Normal NEGATIVE [facility] Comment on above: Performed By: #### L ACT #### [facility] [address] [place] [address] Dr. Jovanna Oneill CUT-OFFS SEE BELOW Normal [facility] Comment on above: Result Comment: AMP [...] ng/mL Performed By: #### L ACT #### [facility] [address] [place] [address] Dr. Jovanna Oneill DRUG CUT HEADER DRUG CLASS TEST SYSTEM CUT-OFF CONCENTRATIONS ARE FOLLOWS: Normal [facility] Comment on above: Performed By: #### L ACT #### [facility] [address] [address] [address] Jovanna Oneill mAMP Negative Normal NEGATIVE [facility] Comment on above: Performed By: #### L ACT #### [facility] [address] [address] [address] Jovanna Oneill MTD Negative Normal NEGATIVE [facility] Comment on above: Performed By: #### L ACT #### [facility] [address] [address] [address] Jovanna Oneill OPI Positive Abnormal NEGATIVE [facility] Comment on above: Performed By: #### L ACT #### [facility] [address] [place] [address] Dr. Jovanna Oneill OXY Negative Normal NEGATIVE [facility] Comment on above: Performed By: #### L ACT #### [facility] [address] [place] [address] Dr. Jovanna Oneill PCP Negative Normal NEGATIVE [facility] Comment on above: Performed By: #### L ACT #### [facility] [address] [address] [address] Jovanna Oneill PPX Negative Normal NEGATIVE [facility] Comment on above: Performed By: #### L ACT #### [facility] [address] [place] [address] Dr. Jovanna Oneill TCA Negative Normal NEGATIVE [facility] Comment on above: Performed By: #### L ACT #### [facility] [address] [place] [address] Dr. Jovanna Oneill THC Positive Abnormal NEGATIVE [facility] Comment on above: Performed By: #### L ACT #### [facility] [address] [place] [address] Dr. Jovanna Oneill ER URINE PROFILEon 2 Bilirubin Ql (U) Negative Normal NEGATIVE [facility] Comment on above: Performed By: #### L ACT #### [facility] [address] [place] [address] Dr. Jovanna Oneill Clarity (U) CLEAR Normal CLEAR [facility] Comment on above: Performed By: #### L ACT #### [facility] [address] [place] [address] Dr. Jovanna Oneill Color (U) LT. YELLOW Normal YELLOW [facility] Comment on above: Performed By: #### L ACT #### [facility] [address] [place] [address] Dr. Jovanna Oneill ERUSTACEY A micrscopic examination will be performed if indicated. Normal [facility] Comment on above: Performed By: #### L ACT #### [facility] [address] [place] [address] Dr. Jovanna Oneill Glucose Ql (U) Negative Normal NEGATIVE [facility] Comment on above: Performed By: #### L ACT #### [facility] [address] [place] [address] Dr. Jovanna Oneill Hemoglobin Ql (U) Negative Normal NEGATIVE [facility] Comment on above: Performed By: #### L ACT #### [facility] [address] [place] [address] Dr. Jovanna Oneill Ketones Ql (U) Negative Normal NEGATIVE [facility] Comment on above: Performed By: #### L ACT #### [facility] [address] [place] [address] Dr. Jovanna Oneill LEUKOCYTES Negative Normal NEGATIVE [facility] Comment on above: Performed By: #### L ACT #### [facility] [address] [place] [address] Dr. Jovanna Oneill Nitrite Ql (U) Negative Normal NEGATIVE [facility] Comment on above: Performed By: #### L ACT #### [facility] [address] [place] [address] Dr. Jovanna Oneill pH (U) 6.0 [pH] Normal 5-9 [facility] Comment on above: Performed By: #### L ACT #### [facility] [address] [place] [address] Dr. Jovanna Oneill SPEC GRAVITY <=1.005 Abnormal 1.005-<=1.025 [facility] Comment on above: Performed By: #### L ACT #### [facility] [address] [place], [place] [id number] Dr. Jovanna Oneill UA PROTEIN Negative Normal NEGATIVE/ TRACE [facility] Comment on above: Performed By: #### L ACT #### [facility] [address] [place] [address] Dr. Jovanna Oneill UR MICRO IND NOT INDICATED Normal [facility] Comment on above: Performed By: #### L ACT #### [facility] [address] [place] [address] Dr. Jovanna Oneill Urobilinogen Qn (U) 0.2 {Isabella'U}/dL Normal 0.2 - 1. 0 [facility] Comment on above: Performed By: #### L ACT #### [facility] [address] [place] [address] Dr. Jovanna Oneill CBC AUTO DIFFon 04-20-2022 BASO # 0.0 103/ul Normal 0.0-0.1 [facility] Comment on above: Performed By: #### L ACT #### [facility] [address] [place] [address] Dr. Jovanna Oneill Basophils/100 WBC (Bld) 0.1 % Critically low 0.2-2.0 [facility] Comment on above: Performed By: #### L ACT #### [facility] [address] [place] [address] Dr. Jovanna Oneill EO # 0.0 103/ul Normal 0.0-0.7 [facility] Comment on above: Performed By: #### L ACT #### [facility] [address] [place] [address] Dr. Jovanna Oneill Eosinophils/100 WBC (Bld) 0.1 % Critically low 0.9-7.0 [facility] Comment on above: Performed By: #### L ACT #### [facility] [address] [place] [address] Dr. Jovanna Oneill Erythrocyte distribution width (RBC) [Ratio] 12.6 % Normal 11.0-15.0 [facility] Comment on above: Performed By: #### L ACT #### [facility] [address] [place] [address] Dr. Jovanna Oneill Hematocrit (Bld) [Volume fraction] 38.8 % Normal 36.0-48.0 [facility] Comment on above: Performed By: #### L ACT #### [facility] [address] [address] [address] Jovanna Oneill Hemoglobin (Bld) [Mass/Vol] 12.6 g/dL Normal 12.0-16.0 [facility] Comment on above: Performed By: #### L ACT #### [facility] [address] [address] [address] Jovanna Oneill IG # 0.13 10e3/ul Critically high 0.00-0.03 [facility] Comment on above: Performed By: #### L ACT #### [facility] [address] [place] [address] Dr. Jovanna Oneill IG % 1.0 % Critically high 0.0-0.5 [facility] Comment on above: Performed By: #### L ACT #### [facility] [address] [address] [address] Jovanna Oneill LYMPH # 1.1 103/ul Critically low 1.2-3.8 [facility] Comment on above: Performed By: #### L ACT #### [facility] [address] [place] [address] Dr. Jovanna Oneill Lymphocytes/100 WBC (Bld) 8.3 % Critically low 20.5-60.0 [facility] Comment on above: Performed By: #### L ACT #### [facility] [address] [address] [address] Jovanna Oneill MANUAL DIFF REQ NO Normal [facility] Comment on above: Performed By: #### L ACT #### [facility] [address] [address] [address] Jovanna Oneill MCH (RBC) [Entitic mass] 31.0 pg Normal 26.7-34.0 [facility] Comment on above: Performed By: #### L ACT #### [facility] [address] [place] [address] Dr. Jovanna Oneill MCHC (RBC) [Mass/Vol] 32.5 g/dL Normal 29.9-35.2 [facility] Comment on above: Performed By: #### L ACT #### [facility] [address] [place] [address] Dr. Jovanna Oneill MCV (RBC) [Entitic vol] 95.3 fL Normal 81.0-99.0 [facility] Comment on above: Performed By: #### L ACT #### [facility] [address] [address] [address] Jovanna Oneill MONO # 0.8 103/ul Normal 0.3-0.8 [facility] Comment on above: Performed By: #### L ACT #### [facility] [address] [place] [address] Dr. Jovanna Oneill Monocytes/100 WBC (Bld) 5.8 % Normal 1.7-12.0 [facility] Comment on above: Performed By: #### L ACT #### [facility] [address] [address] [address] Jovanna Oneill NEUT # 11.4 103/ul Critically high 1.4-6.5 [facility] Comment on above: Performed By: #### L ACT #### [facility] [address] [place] [address] Dr. Jovanna Oneill Neutrophils/100 WBC (Bld) 84.7 % Critically high 43.0-75.0 [facility] Comment on above: Performed By: #### L ACT #### [facility] [address] [address] [address] Jovanna Oneill Platelet mean volume (Bld) [Entitic vol] 10.1 fL Normal 9.5-13.5 [facility] Comment on above: Performed By: #### L ACT #### [facility] [address] [place] [address] Dr. Jovanna Oneill PLT 205 103/ul Normal 150-450 [facility] Comment on above: Performed By: #### L ACT #### [facility] [address] [place] [address] Dr. Jovanna Oneill RBC 4.07 106/ul Critically low 4.20-5.40 [facility] Comment on above: Performed By: #### L ACT #### [facility] [address] [address] [address] Jovanna Oneill WBC 13.4 103/ul Critically high 4.0-11.0 [facility] Comment on above: Performed By: #### L ACT #### [facility] [address] [address] [address] Jovanna Oneill DRUG SCREEN RAPID (URINE)on 04-20-2022 AMP Negative Normal NEGATIVE [facility] Comment on above: Performed By: #### U MICRO, ERUR, DRUGRPD ####[facility] [address] [address]Dr. Jovanna Oneill BAR Negative Normal NEGATIVE [facility] Comment on above: Performed By: #### U MICRO, ERUR, DRUGRPD ####[facility] [address] [address]Dr. Jovanna Oneill BUP Negative Normal NEGATIVE [facility] Comment on above: Performed By: #### U MICRO, ERUR, DRUGRPD ####[facility] [address] [address]Dr. Jovanna Oneill BZO Negative Normal NEGATIVE [facility] Comment on above: Performed By: #### U MICRO, ERUR, DRUGRPD ####[facility] [address] [address]Dr. Jovanna Oneill CARA Negative Normal NEGATIVE [facility] Comment on above: Performed By: #### U MICRO, ERUR, DRUGRPD ####[facility] [address] [address]Dr. Jovanna Oneill CUT-OFFS SEE BELOW Normal [facility] Comment on above: Result Comment: AMP [...] Performed By: #### U MICRO, ERUR, DRUGRPD ####[facility] [address] [address]Dr. Jovanna Oneill DRUG CUT HEADER DRUG CLASS TEST SYSTEM CUT-OFF CONCENTRATIONS ARE FOLLOWS: Normal [facility] Comment on above: Performed By: #### U MICRO, ERUR, DRUGRPD ####[facility] [address] [place], [place] [address]Dr. Jovanna Oneill mAMP Negative Normal NEGATIVE [facility] Comment on above: Performed By: #### U MICRO, ERUR, DRUGRPD ####[facility] [address] [place], [place] [address]Dr. Jovanna Oneill MTD Negative Normal NEGATIVE [facility] Comment on above: Performed By: #### U MICRO, ERUR, DRUGRPD ####[facility] [address] [place], [place] [address]Dr. Jovanna Oneill OPI Positive Abnormal NEGATIVE [facility] Comment on above: Performed By: #### U MICRO, ERUR, DRUGRPD ####[facility] [address] [place], [place] [address]Dr. Jovanna Oneill OXY Negative Normal NEGATIVE [facility] Comment on above: Performed By: #### U MICRO, ERUR, DRUGRPD ####[facility] [address] [place], [place] [address]Dr. Jovanna Oneill PCP Negative Normal NEGATIVE [facility] Comment on above: Performed By: #### U MICRO, ERUR, DRUGRPD ####[facility] [address] [place], [place] [address]Dr. Jovanna Oneill PPX Negative Normal NEGATIVE [facility] Comment on above: Performed By: #### U MICRO, ERUR, DRUGRPD ####[facility] [address] [place], [place] [address]Dr. Jovanna Oneill TCA Negative Normal NEGATIVE [facility] Comment on above: Performed By: #### U MICRO, ERUR, DRUGRPD ####[facility] [address] [address]Dr. Jovanna Oneill THC Positive Abnormal NEGATIVE [facility] Comment on above: Performed By: #### U MICRO, ERUR, DRUGRPD ####[facility] [address] [address]Dr. Jovanna Oneill ER URINE PROFILEon 2 Bilirubin Ql (U) Negative Normal NEGATIVE [facility] Comment on above: Performed By: #### U MICRO, ERUR, DRUGRPD ####[facility] [address] [place], [place] [address]Dr. Jovanna Oneill Clarity (U) CLEAR Normal CLEAR [facility] Comment on above: Performed By: #### U MICRO, ERUR, DRUGRPD ####[facility] [address] [place], [place] [address]Dr. Jovanna Oneill Color (U) LT. YELLOW Normal YELLOW [facility] Comment on above: Performed By: #### U MICRO, ERUR, DRUGRPD ####[facility] [address] [place], [place] [address]Dr. Jovanna Oneill ERUAHD A micrscopic examination will be performed if indicated. Normal [facility] Comment on above: Performed By: #### U MICRO, ERUR, DRUGRPD ####[facility] [address] [place], [place] [address]Dr. Jovanna Oneill Glucose Ql (U) >1000 Abnormal NEGATIVE [facility] Comment on above: Performed By: #### U MICRO, ERUR, DRUGRPD ####[facility] [address] [place], [place] [address]Dr. Jovanna Oneill Hemoglobin Ql (U) Negative Normal NEGATIVE [facility] Comment on above: Performed By: #### U MICRO, ERUR, DRUGRPD ####[facility] [address] [place], [place] [address]Dr. Jovanna Oneill Ketones Ql (U) Negative Normal NEGATIVE [facility] Comment on above: Performed By: #### U MICRO, ERUR, DRUGRPD ####[facility] [address] [address]Dr. Jovanna Oneill LEUKOCYTES Negative Normal NEGATIVE [facility] Comment on above: Performed By: #### U MICRO, ERUR, DRUGRPD ####[facility] [address] [address]Dr. Jovanna Oneill Nitrite Ql (U) Negative Normal NEGATIVE [facility] Comment on above: Performed By: #### U MICRO, ERUR, DRUGRPD ####[facility] [address] [address]Dr. Jovanna Oneill pH (U) 6.5 [pH] Normal 5-9 [facility] Comment on above: Performed By: #### U MICRO, ERUR, DRUGRPD ####[facility] [address] [address]Dr. Jovanna Oneill Protein (U) [Mass/Vol] 30 mg/dL Abnormal NEGATIVE/ TRACE [facility] Comment on above: Performed By: #### U MICRO, ERUR, DRUGRPD ####[facility] [address] [place], [place] [address]Dr. Jovanna Oneill SPEC GRAVITY 1.015 Normal 1.005-<=1.025 [facility] Comment on above: Performed By: #### U MICRO, ERUR, DRUGRPD ####[facility] [address] [address]Dr. Jovanna Oneill UR MICRO IND INDICATED Normal [facility] Comment on above: Performed By: #### U MICRO, ERUR, DRUGRPD ####[facility] [address] [address]Dr. Jovanna Oneill Urobilinogen Qn (U) 1.0 {Isabella'U}/dL Normal 0.2 - 1. 0 [facility] Comment on above: Performed By: #### U MICRO, ERUR, DRUGRPD ####[facility] [address] [address]Dr. Jovanna Oneill LACTATE/LACTIC ACIDon 06-09- 2022 Lactate [Moles/Vol] 1.7 mmol/L Normal 0.4-1.9 [facility] Comment on above: Performed By: #### L ACT #### [facility] [address] [place] [address] Dr. Jovanna Oneill PROF 14(COMP METB)on 022 Albumin [Mass/Vol] 3.4 g/dL Normal 3.4-5.0 [facility] Comment on above: Performed By: #### V ITB12 #### [facility] [address] [place] [address] Dr. Jovanna Oneill Albumin/Globulin [Mass ratio] 1.1 {ratio} Normal [facility] Comment on above: Performed By: #### V ITB12 #### [facility] [address] [place] [address] Dr. Jovanna Oneill ALP [Catalytic activity/Vol] 99 U/L Normal 46-116 [facility] Comment on above: Performed By: #### V ITB12 #### [facility] [address] [place] [address] Dr. Jovanna Oneill ALT [Catalytic activity/Vol] 32 U/L Normal 14-59 [facility] Comment on above: Performed By: #### V ITB12 #### [facility] [address] [place] [address] Dr. Jovanna Oneill Anion gap [Moles/Vol] 10.0 mmol/L Normal [facility] Comment on above: Performed By: #### V ITB12 #### [facility] [address] [place] [address] Dr. Jovanna Oneill AST [Catalytic activity/Vol] 38 U/L Critically high 15-37 [facility] Comment on above: Performed By: #### V ITB12 #### [facility] [address] [place] [address] Dr. Jovanna Oneill Bilirubin [Mass/Vol] 0.8 mg/dL Normal 0.2-1.0 [facility] Comment on above: Performed By: #### V ITB12 #### [facility] [address] [address] [address] Jovanna Oneill Calcium [Mass/Vol] 8.1 mg/dL Critically low 8.5-10.1 [facility] Comment on above: Performed By: #### V ITB12 #### [facility] [address] [place] [address] Dr. Jovanna Oneill Chloride [Moles/Vol] 102 mmol/L Normal 98-107 [facility] Comment on above: Performed By: #### V ITB12 #### [facility] [address] [place] [address] Dr. Jovanna Oneill CO2 [Moles/Vol] 31.1 mmol/L Normal 21.0-32.0 [facility] Comment on above: Performed By: #### V ITB12 #### [facility] [address] [place] [address] Dr. Jovanna Oneill Creatinine [Mass/Vol] 0.78 mg/dL Normal 0.55-1.02 [facility] Comment on above: Performed By: #### V ITB12 #### [facility] [address] [place] [address] Dr. Jovanna Oneill EGFR-AF ERITREAN >60 Normal >=60 [facility] Comment on above: Performed By: #### V ITB12 #### [facility] [address] [place] [address] Dr. Jovanna Oneill EGFR-NON AF ERITREAN >60 Normal >=60 [facility] Comment on above: Performed By: #### V ITB12 #### [facility] [address] [place] [address] Dr. Jovanna Oneill Globulin (S) [Mass/Vol] 3.2 g/dL Normal [facility] Comment on above: Performed By: #### V ITB12 #### [facility] [address] [place] [address] Dr. Jovanna Oneill Glucose [Mass/Vol] 251 mg/dL Critically high 74-106 [facility] Comment on above: Performed By: #### V ITB12 #### [facility] [address] [place] [address] Dr. Jovanna Oneill Potassium [Moles/Vol] 3.1 mmol/L Critically low 3.5-5.1 [facility] Comment on above: Performed By: #### V ITB12 #### [facility] [address] [address] [address] Jovanna Oneill Protein [Mass/Vol] 6.6 g/dL Normal 6.4-8.2 [facility] Comment on above: Performed By: #### V ITB12 #### [facility] [address] [address] [address] Jovanna Oneill Sodium [Moles/Vol] 140 mmol/L Normal 136-145 [facility] Comment on above: Performed By: #### V ITB12 #### [facility] [address] [address] [address] Jovanna Oneill Urea nitrogen [Mass/Vol] 8.0 mg/dL Normal 7.0-18.0 [facility] Comment on above: Performed By: #### V ITB12 #### [facility] [address] [address] [address] Jovanna Oneill Urea nitrogen/Creatinine [Mass ratio] 10.3 mg/mg Normal [facility] Comment on above: Performed By: #### V ITB12 #### [facility] [address] [address] [address] Jovanna Oneill TROPONIN, HIGH SENSITIVITYon 04-20-2022 HSTROP 13.8 pg/mL Normal 4.0-51.3 [facility] Comment on above: Result Comment: CUT- OFF POINTS HAVE BEEN ESTABLISHED BASED ON THE FOURTH UNIVERSAL DEFINITIONS OF MYOCARDIAL INFARCTION. THE UPPER REFERENCE LIMIT (URL) OF TROPONIN, DEFINED THE 99TH PERCENTILE OF cTnI DISTRIBUTION IN A REFERENCE POPULATION, HAS BEEN CONFIRMED THE DECISION THRESHOLD FOR AL DIAGNOSIS. Performed By: #### V ITB12 #### [facility] [address] [address] [address] Jovanna Oneill URINE MICROSCOPIC ONLYon BACTERIA TRACE Abnormal NONE SEEN [facility] Comment on above: Performed By: #### U MICRO, ERUR, DRUGRPD ####[facility] [address] [address]Dr. Jovanna Oneill Bacteria identified Cx Nom (U) NOT INDICATED Normal [facility] Comment on above: Performed By: #### U MICRO, ERUR, DRUGRPD ####[facility] [address] [address]Dr. Jovanna Oneill CAST SEEN Abnormal NONE SEEN [facility] Comment on above: Performed By: #### U MICRO, ERUR, DRUGRPD ####[facility] [address] [address]Dr. Jovanna Oneill Crystals LM Nom (Urine sed) NONE SEEN Normal NONE SEEN [facility] Comment on above: Performed By: #### U MICRO, ERUR, DRUGRPD ####[facility] [address] [address]Dr. Jovanna Oneill Epithelial cells LM Ql (Urine sed) FEW Abnormal NONE SEEN /RARE [facility] Comment on above: Performed By: #### U MICRO, ERUR, DRUGRPD ####[facility] [address] [address]Dr. Jovanna Oneill HYALINE CAST FEW Normal [facility] Comment on above: Performed By: #### U MICRO, ERUR, DRUGRPD ####[facility] [address] [address]Dr. Jovanna Oneill MUCOUS NONE SEEN Normal NONE SEEN [facility] Comment on above: Performed By: #### U MICRO, ERUR, DRUGRPD ####[facility] [address] [address]Dr. Jovanna Oneill RBC 0-2 Normal 0-2 [facility] Comment on above: Performed By: #### U MICRO, ERUR, DRUGRPD ####[facility] [address] [address]Dr. Jovanna Oneill WBC 0-2 Abnormal NONE SEEN [facility] Comment on above: Performed By: #### U MICRO, ERUR, DRUGRPD ####[facility] [address] [address]DrJhony Oneill XR CHEST 1 Von 04-20-2022 XR [...] by: Ayaka LEON Date: 2022-04-20 02:33 Normal [facility] XR ANKLE RT MIN 3 VIEWSon [...] by: KOBE HICKEY Date: 2022-03-26 09:41 Normal [facility] Vital Signs Date Time Vital Sign Value Performing Clinician Felciia hunt 08-13-2024 12:24-0400 Body height 154.94 cm PHYSICIAN NO [facility] 08-13-2024 12:24-0400 Body temperature 97.8 [degF] PHYSICIAN NO [facility] 08-13-2024 12:24-0400 Body weight 48 kg PHYSICIAN NO [facility] 08-13-2024 12:24-0400 Diastolic blood pressure 98 mm[Hg] PHYSICIAN NO [facility] 08-13-2024 12:24-0400 Heart rate 84 /min PHYSICIAN NO [facility] 08-13-2024 12:24-0400 Respiratory rate 18 /min PHYSICIAN NO [facility] 08-13-2024 12:24-0400 SaO2% (BldA) [Mass fraction] 98 % PHYSICIAN NO [facility] 08-13-2024 12:24-0400 Systolic blood pressure 160 mm[Hg] PHYSICIAN NO [facility] Encounters Encounter Date Encounter Type Care Provider Facility Start: 08-13-2024 End: 08-13-2024 Emergency department patient visit PHYSICIAN NO [facility] Work Phone: Start: 07-10-2024 End: 07-11-2024 ambulatory Vikram Mckenna MD Facility:[facility] Start: 06-30-2024 End: 07-02-2024 ambulatory [facility] Start: 06-09-2024 End: 06-11-2024 ambulatory [facility] Start: 05-26-2024 ambulatory [facility] Start: 05-26-2024 Encounter for other preprocedural examination [facility] Start: 05-22-2024 Non-patient / Non-visit PHYSICIAN NO [facility] Work Phone: Start: 03-23-2023 End: [...] Facility:[facility] Start: 10-06-2022 ambulatory Woo FALCON Facility :[facility] Start: 10-03-2022 End: 10-04-2022 ambulatory TATUM SHAMMO Facility:[facility] Start: 09-14-2022 Encounter for genera l adult medical examination without abnormal findings TATUM SHAMMO [facility] Start: 09-12-2022 End: 09-13-2022 ambulatory TATUM SHAMMO Facility:[facility] Start: 09-12-2022 End: 09-13-2022 Encounter for general adult medical examination without abnormal findings TATUM SHAMMO Facility:[facility] Start: 08-29-2022 End: 08-30-2022 ambulatory TATUM SHAMMO Facility:[facility] Start: 08-24-2022 End: 08-24-2022 ambulatory TATUM SHAMMO Facility:[facility] Start: 08-16-2022 End: 08-17-2022 ambulatory TATUM SHAMMO Facility:[facility] Start: 08-16-2022 End: 08-17-2022 ambulatory CAROL ANN ALIA Facility:[facility] Start: 06-22-2022 End: 06-22-2022 ambulatory [facility] Facility:[facility] Start: 05-02-2022 End: 05-02-2022 ambulatory [facility] Facility:[facility] Start: 04-20-2022 End: 04-20-2022 ambulatory CAROL ANN ALIA Facility:[facility] Start: 03-26-2022 End: 03-26-2022 ambulatory DARRIN ANA . Facility: Plan of Treatment Date Care Activity Detail Author Patient Education Managing acute pain at home [facility] Work Phone: Patient referral [facility] Work Phone: Payers Date Payer Category Payer Self-pay 2024 Unknown 1975 Unknown [id number] 2.16.8 [id number] 1973 Unknown [id number] 2.16.8 [id number] 1973 Unknown [id number] 2.16.84 [id number] 1973 Unknown [id number] 2.16.84 [id number] 1973 Unknown [id number] 2.16.84 0.1.756201.3.579.2.593 1973 Unknown [id number] 2.16.84 0.1.937466.3.579.2.593 1973 Unknown [id number] 2.16.84 0.1.927263.3.579.2.593 1973 Unknown [id number] 2.16.84 0.1.817803.3.579.2.593 1973 Unknown [id number] 2.16.84 0.1.951749.3.579.2.593 1973 Unknown [id number] 2.16.84 0.1.777329.3.579.2.593 1973 Unknown [id number] 2.16.84 0.1.645743.3.579.2.593 1973 Unknown [id number] 2.16.84 0.1.485087.3.579.2.593 1973 Unknown [id number] 2.16.84 0.1.321519.3.579.2.593 1973 Unknown [id number] 2.16.84 0.1.944532.3.579.2.593 1973 Unknown [id number] 2.16.84 0.1.104076.3.579.2.593 1973 Unknown [id number] 2.16.84 0.1.639285.3.579.2.593 1973 Unknown [id number] 2.16.84 0.1.191886.3.579.2.593 1973 Unknown [id number] 2.16.84 0.1.789037.3.579.2.593 1973 Unknown [id number] 2.16.84 0.1.752247.3.579.2.593 1973 Unknown [id number] 2.16.84 [id number] 1975 Unknown [id number] 2.16.84 0.1.507106.3.579.2.593 1975 Unknown [id number] 2.16.84 0.1.339288.3.579.2.593 1975 Unknown [id number] 2.16.84 0.1.618912.3.579.2.593 1975 Unknown [id number] 2.16.84 0.1.878932.3.579.2.593 1975 Unknown [id number] 2.16.8 40.1.932264.3.579.2.174 1975 Unknown [id number] 2.16.8 40.1.177642.3.579.2.174 1975 Unknown [id number] 2.16.8 40.1.868683.3.579.2.174 1975 Unknown [id number] 2.16.8 40.1.383993.3.579.2.174 1975 Unknown [id number] 2.16.8 40.1.696365.3.579.2.174 1975 Unknown [id number] 2.16. 840.1.612270.3.579.2.196 1961 Self-pay [id number] 1961 Unknown [id number] 1961 Unknown [id number] Unknown [id number] 2.16.8 40.1.617795.3.579.2.531 Social History Date Type Detail Facility Start: 08-13-2024 [facility] Start: 1975 Sex Assigned At Female F [facility] Discharge summary note 07-11-2024 Note [...] less than 30 minutes Medications New Medications [facility], [address], [place] [id number], [phone] cefdinir (cefdinir 300 mg oral capsule) 1 [...] by Vikram Mckenna MD 07/11/24 11:37 EDT [facility] History and physical note [...] this time too much in pain --will staff counselor in am discussion pain control , [...] hydrALAZINE, 10 mg= 0.5 mL, IV Push, [id number] Times, PRN LR 1,000 mL, 1000 mL, [...] by Vikram Mckenna MD 07/10/24 19:12 EDT [facility] Clinical Note 07-10-2024 Note [...] right index finger, excision: Consistent with osteomyelitis. [id number] [id number] Raul Davidson MD PhD (Electronically signed by) Verified: 07/16/24 13:53 [facility] Comment on above: Performed By: #### S BS #### [facility] (DEFAULT) [address] [place] [address] [facility] [address] [place] [id number] Clinical Note 03-05-2023 Note Date & Type [...] by: FRANCES AGUSTIN Date: 2023-03-05 11:36 [facility] Clinical Note 08-30-2022 Note Date & [...] by: FRANCES AGUSTIN Date: 2022-08-30 10:20 [facility] Clinical Note 08-30-2022 Note Date & [...] by: FRANCES AGUSTIN Date: 2022-08-30 10:20 [facility] Clinical Note 06-22-2022 Note Date & [...] authenticated by: RJ YANEZ Date: 2022-06-22 07:13 [facility] Clinical Note 06-22-2022 Note Date & [...] authenticated by: RJ YANEZ Date: 2022-06-22 07:13 [facility] Evaluation note Note Date & Type Note Facility Evaluation note No assessment information availa ble [facility] Work Phone: Hospital Discharge instructions Note Date & Type Note Facility Hospital Discharge instructions Additional Instructions Follow-up with your surgeon for further evaluation or pain medication. [facility] Work Phone: Summary Purpose Family [...] and content) DATE CREATED AUTHOR [facility]/24/2022 [facility] DATE CREATED AUTHOR AUTHOR'S ORGANIZ ATION 03/24/2023 [facility] DATE CREATED AUTHOR AUTHOR'S ORGANIZ ATION 07/04/2024 Astrid Yunior Ivan ruiz DATE CREATED AUTHOR AUTHOR'S ORGANIZ ATION 11/07/2024 [facility] DATE CREATED AUTHOR AUTHOR'S ORGANIZ ATION 01/13/2025 [facility] Care Teams (unrecognized sec tion [...] BE BASED ON THE PRIMARY CLINICAL RECORDS. [employer] provides no warranty or guarantee of the accuracy or completeness of information in this document.
[2025-01-31 16:21] VITALS: BP 106/80; PULSE 93; TEMP 36.7; O2SAT 97; BMI 23.3
--- NOTE | 2025-01-31 16:40 | ED_ITS ---
HPI - Anxiety General Chief Complaint: Anxiety Stated Complaint: WITHDRAWALS Time Seen by Provider: 01/31/25 16:27 Source: patient Mode of arrival: walk-in Limitations: no limitations History of Present Illness HPI narrative: The patient is coming to the ER to be evaluated for anxiety, initially she mentioned that she was here before when she was given Ativan by the ER doctor and she came back because she did not have any more Ativan The patient mentioned that she has been feeling anxious for the last few days. Denying any specific symptoms. 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 The patient have a history of having phantom pain The patient denies any specific symptoms ,the patient also is not suicidal or homicidal and she mentioned that when asked about any stressors she did not specify anything that happening at home She is still smokes cigarettes and marijuana Related Data Home Medications ?Medication ?Instructions ?Recorded ?Confirmed budesonide-formoterol HFA 80 2 puff inhalation Q12H 01/01/25 01/31/25 mcg-4.5 mcg/actuation aerosol inhaler (Symbicort) gabapentin 300 mg capsule 300 mg PO DAILY 01/01/25 01/01/25 Previous Rx's ?Medication ?Instructions ?Recorded albuterol sulfate 90 mcg/actuation 2 inh inhalation Q4H PRN shortness 01/01/25 aerosol inhaler of breath or wheezing 7 days #8.5 grams alprazolam 0.5 mg tablet (Xanax) 0.5 mg PO TID PRN anxiety 5 days 01/28/25 #14 tabs hydroxyzine pamoate 25 mg capsule 25 mg PO TID PRN anxiety #14 caps 01/31/25 (Vistaril) Allergies Allergy/AdvReac Type Severity Reaction Status Date / Time No Known Drug Allergies Allergy Verified 01/01/25 18:16 Review of Systems ROS Status of ROS 10 or more systems reviewed and unremark able except as noted in history and below [facility] Medical History Full dentures ?Z97.2 - Presence of dental prosthetic device (complete) (partial) (ICD-10) ?K08.109 - Complete loss of teeth, unspecified cause, unspecified class (ICD- 10) Neck pain ?M54.2 - Cervicalgia (ICD-10) Depression ?F32.A - Depression, unspecified (ICD-10) Anxiety ?F41.9 - Anxiety disorder, unspecified (ICD-10) Asthma ?J45.909 - Unspecified asthma, uncomplicated (ICD-10) Chronic obstructive pulmonary disease ?J44.9 - Chronic obstructive pulmonary disease, unspecified (ICD-10) Migraine ?G43.909 - Migraine, unspecified, not intractable, without status migrainosus (ICD-10) Kidney stones ?N20.0 - Calculus of kidney (ICD-10) GERD (gastroesophageal reflux disease) ?K21.9 - Gastro-esophageal reflux disease without esophagitis (ICD-10) Hypothyroidism ?E03.9 - Hypothyroidism, unspecified (ICD-10) Hiatal hernia ?K44.9 - Diaphragmatic hernia without obstruction or gangrene (ICD-10) Colon polyp ?K63.5 - Polyp of colon (ICD-10) Ovarian cyst ?N83.209 - Unspecified ovarian cyst, unspecified side (ICD-10) Endometriosis ?N80.9 - Endometriosis, unspecified (ICD-10) Hypertension ?I10 - Essential (primary) hypertension (ICD-10) Back pain ?M54.9 - Dorsalgia, unspecified (ICD-10) Chronic neck pain ?M54.2 - Cervicalgia (ICD-10) ?G89.29 - Other chronic pain (ICD-10) Open fracture of right hand ?S62.91XB - Unspecified fracture of right wrist and hand, initial encounter for open fracture (ICD-10) Anxiety and depression ?F41.9 - Anxiety disorder, unspecified (ICD-10) ?F32.A - Depression, unspecified (ICD-10) HTN (hypertension) ?I10 - Essential (primary) hypertension (ICD-10) Bulging of cervical intervertebral disc ?M50.30 - Other cervical disc degeneration, unspecified cervical region (ICD- 10) Osteoporosis ?M81.0 - Age-related osteoporosis without current pathological fracture (ICD- 10) Surgical History History of tonsillectomy ?Z90.89 - Acquired absence of other organs (ICD-10) History of colonoscopy ?Z98.890 - Other specified postprocedural states (ICD-10) History of esophagogastroduodenoscopy (EGD) ?Z98.890 - Other specified postprocedural states (ICD-10) History of laparoscopy ?Z98.890 - Other specified postprocedural states (ICD-10) History of appendectomy ?Z90.49 - Acquired absence of other specified parts of digestive tract (ICD- 10) History of hysterectomy ?Z90.710 - Acquired absence of both cervix and uterus (ICD-10) History of cholecystectomy ?Z90.49 - Acquired absence of other specified parts of digestive tract (ICD- 10) Family History Other Brain tumor Cancer Family history of aneurysm Family history of diabetes mellitus Family history of hypertension Social History Within the past year, how often did you have a drink containing alcohol: never Score interpretation: A score less than 3 is consistent with normal alcohol consumption. Smoking status: Current every day smoker What tobacco products do you use: cigarettes Cigarettes per day: 30 Years smoked: 36 Smoking pack-years: 54.00 Non-prescribed substance use: cannabis (any form) Highest level of school completed/degree received: 11th grade Little interest or pleasure in doing things: not at all Feeling down, depressed, or hopeless: not at all Exam Narrative Exam Narrative: Nurses notes and vital signs reviewed and patient is not hypoxic. General: Well-appearing and in no apparent distress. Skin: Warm, dry, no pallor noted. No rash. Head: Normocephalic, atraumatic. Neck: Supple, non-tender. Eye: Pupils are equal, round and EOMI. No scleral icterus. Ears, Nose, Mouth, and Throat: TM are clear, no nasal mucosal hypertrophy. Oral mucosa is moist, no posterior oropharynx erythema, uvula is mid-line Cardiovascular: Regular Rate and Rhythm without murmur, gallop or rub. Respiratory: No accessory muscle use or respiratory distress. Lungs are clear to auscultation, no wheezing, rales or rhonchi Chest Wall: no tenderness Back: No midline thoracic or lumbar vertebral tenderness. No CVA tenderness Musculoskeletal: normal ROM, no calf or popliteal tenderness, no lower extremity edema/swelling, healing wound of the right index finger status post amputation of the distal phalanx. GI: Abdomen is soft, non-distended. Normal bowel sounds. No masses appreciated. No tenderness to palpation. No rebound, guarding, or rigidity noted. Neurological: A&O x4. No cranial nerve dysfunction observed. Constitutional Vital Signs, click to edit/add: Last Vital Signs Temp 98.1 F 01/31/25 16:21 Pulse 93 H 01/31/25 16:21 Resp 18 01/31/25 16:21 BP 106/80 01/31/25 16:21 Pulse Ox 97 01/31/25 16:21 O2 Del Method Room Air 01/31/25 16:21 Course Vital Signs Vital signs: Vital Signs Temperature 98.1 F 01/31/25 16:21 Pulse Rate 93 H 01/31/25 16:21 Respiratory Rate 18 01/31/25 16:21 Blood Pressure 106/80 01/31/25 16:21 Pulse Oximetry 97 01/31/25 16:21 Oxygen Delivery Method Room Air 01/31/25 16:21 Temperature 98.1 F 01/31/25 16:21 Pulse Rate 93 H 01/31/25 16:21 Respiratory Rate 18 01/31/25 16:21 Blood Pressure 106/80 01/31/25 16:21 Pulse Oximetry 97 01/31/25 16:21 Oxygen Delivery Method Room Air 01/31/25 16:21 MDM - Anxiety MDM Narrative Medical decision making narrative: Initially explained to the patient that her symptoms are nonspecific and she does smoke which puts her at risk for other issues including heart disease. And I offered her to do the workup but she mentioned that she was evaluated last time she was here with a EKG and blood workup and she does not think that would help her The patient just want to be help for her anxiety and to be able to sleep Explained to the patient that she need to follow-up with her primary care which she does not have 1 but she was given the outpatient primary care list to make sure that she establish 1 and I did explain to her that she need to solve the main issue which is mostly the anxiety and not just take medication The patient is to follow up with primary care physician in next 2-3 days or to return to the emergency department should any of the signs or symptoms worsen or new symptoms develop. The patient agrees with the following Diagnosis and Treatment plan and the patient will be discharged home. Discharge Plan Discharge Chief Complaint: Anxiety Clinical Impression: Anxiety Patient Disposition: Home, Self-Care Time of Disposition Decision: 16:41 Condition: Good Prescriptions / Home Meds: New hydroxyzine pamoate [Vistaril] 25 mg capsule 25 mg PO TID PRN (Reason: anxiety ) Qty: 14 0RF No Action gabapentin 300 mg capsule 300 mg PO DAILY budesonide-formoterol [Symbicort] 80-4.5 mcg/actuation HFA aerosol inhaler 2 puff INHALATION Q12H albuterol sulfate 90 mcg/actuation HFA aerosol inhaler 2 inh inhalation Q4H PRN (Reason: shortness of breath or wheezing) 7 Days Qty: 8.5 0RF alprazolam [Xanax] 0.5 mg tablet 0.5 mg PO TID PRN (Reason: anxiety) 5 Days Qty: 14 0RF Print Language: Bengali Instructions: Anxiety (ED) Referrals: Physician,Non-Staff, MD [Primary Care Provider] - 1 week
[2025-01-31] MEDS: HYDROXYZINE HCL 25 MG TABLET 50 MG PO (17:02)
== END 2025-01-31 17:24 | disposition home or self-care (01) ==
PROVIDERS: Emergency Provider Emergency Medicine
DX: F41.9 Anxiety disorder, unspecified (principal); Z89.021 Acquired absence of right finger(s); F17.210 Nicotine dependence, cigarettes, uncomplicated; Z90.49 Acquired absence of other specified parts of digestive tract; Z90.710 Acquired absence of both cervix and uterus
CPT/HCPCS: 99283

== ENCOUNTER 2025-03-05 09:32 | Outpatient (OUT) | payer OTHER, SELFPAY ==
[2025-03-05 09:47] LABS: Basophils Percent Auto 0.2 % (0.2-2.0); Eosinophils Absolute Auto 0.1 10^3/uL (0.0-0.7); Eosinophils Percent Auto 1.4 % (0.9-7.0); Hematocrit 41.3 % (36.0-48.0); Hemoglobin 13.5 g/dL (12.0-16.0); Immature Granulocytes Abs Auto 0.03 10^3/uL (0.00-0.03); Immature Granulocytes Pct Auto 0.4 % (0.0-0.5); Lymphocytes Absolute Auto 2.3 10^3/uL (1.2-3.8); Lymphocytes Percent Auto 27.9 % (20.5-60.0); Mean Corpuscular HGB Conc 32.7 g/dL (29.9-35.2); Mean Corpuscular Hemoglobin 32.1 pg (26.7-34.0); Mean Corpuscular Volume 98.3 fL (81.0-99.0); Mean Platelet Volume 10.4 fL (9.5-13.5); Monocytes Absolute Auto 0.5 10^3/uL (0.3-0.8); Monocytes Percent Auto 6.3 % (1.7-12.0); Neutrophils Absolute Auto 5.3 10^3/uL (1.4-6.5); Neutrophils Percent Auto 63.8 % (43.0-75.0); Platelet Count 207 10^3/uL (150-450); Red Cell Distribution Width 12.5 % (11.0-15.0); White Blood Count 8.4 10^3/uL (4.0-11.0)
[2025-03-05 10:01] LABS: Estimated Average Glucose 103 mg/dL; Glycohemoglobin A1C 5.2 % (4.5-6.2)
[2025-03-05 10:52] LABS: Anion Gap 10.1; BUN Creatinine Ratio 14.7; Carbon Dioxide 31.3 mmol/L (21.0-32.0); Chloride 108 mmol/L (98-107); Chol HDL Ratio 4.1; Cholesterol 147 mg/dL (<=200); Estimated GFR (African America >60 (>=60 mL/min/1.73m^2); Estimated GFR (Non-African Ame >60 (>=60 mL/min/1.73m^2); Glucose 93 mg/dL (74-106); HDL Cholesterol 36 mg/dL (40-60); Potassium 3.4 mmol/L (3.5-5.1); Sodium 146 mmol/L (136-145); TSH W/ REFLEX FT4 5.588 uIU/mL (0.358-3.740); Triglycerides 93 mg/dL (<=150); VLDL CHOLESTEROL 18.6 mg/dL
[2025-03-05 11:53] LABS: Free T4 0.66 ng/dL (0.76-1.46)
[2025-03-06 05:07] LABS: HCV Antibody Non Reactive (Non Reactive); HIV Ab/p24 Ag Screen Non Reactive (Non Reactive)
== END 2025-03-05 09:33 | disposition home or self-care (01) ==
DX: R73.01 Impaired fasting glucose (principal); I10 Essential (primary) hypertension; E03.9 Hypothyroidism, unspecified; Z11.59 Encounter for screening for other viral diseases; Z11.4 Encounter for screening for human immunodeficiency virus [HIV]
CPT/HCPCS: 36415; 80048; 80061; 83036; 84439; 84443; 85025; 86803; 87389

== ENCOUNTER 2025-04-08 21:51 | Emergency (ER) | payer OTHER, SELFPAY ==
[2025-04-08 21:59] VITALS: BP 190/95; PULSE 67; TEMP 36.5; O2SAT 97; BMI 19.7
--- NOTE | 2025-04-08 22:04 | ED.ABDPAIN1 ---
HPI - Abdominal Pain General Chief Complaint: Abdominal Pain Stated Complaint: SURGERY TODAY, ABDOMINAL PAIN Time Seen by Provider: 04/08/25 22:03 History of Present Illness HPI narrative: patient daily smoker with past history of HTN. Describes dilated bile ducts. admission records from [facility] reviewed and patient has prior CT that demonstrated dilated CBD to 1.6cm without choledocholithiasis or mass. EUS 03/11/25 demonstrated dilated CBD 1.6cm without choledocholithiasis or mass. Discharged from [facility] earlier today after placement of bile duct stent. States there was some concern related to her pancreas. States at discharge she was in pain and Her BP was elevated. Went to sleep at home. woke up with nausea and vomiting and now presents complaining of abdominal pain. No fever Related Data Home Medications ?Medication ?Instructions ?Recorded ?Confirmed budesonide-formoterol HFA 80 2 puff inhalation Q12H 01/01/25 04/08/25 mcg-4.5 mcg/actuation aerosol inhaler (Symbicort) gabapentin 300 mg capsule 300 mg PO DAILY 01/01/25 04/08/25 levothyroxine 25 mcg tablet 25 mcg PO DAILY 04/08/25 04/08/25 metoprolol tartrate 25 mg tablet 25 mg PO Q12H 04/08/25 04/08/25 pantoprazole 40 mg tablet,delayed 40 mg PO DAILY 04/08/25 04/08/25 release Previous Rx's ?Medication ?Instructions ?Recorded albuterol sulfate 90 mcg/actuation 2 inh inhalation Q4H PRN shortness 01/01/25 aerosol inhaler of breath or wheezing 7 days #8.5 grams Allergies Allergy/AdvReac Type Severity Reaction Status Date / Time No Known Drug Allergies Allergy Verified 04/08/25 22:05 Review of Systems ROS Status of ROS 10 or more systems reviewed and unremarkable except as noted in history and below [facility] Medical History Full dentures ?Z97.2 - Presence of dental prosthetic device (complete) (partial) (ICD-10) ?K08.109 - Complete loss of teeth, unspecified cause, unspecified class (ICD-10) Neck pain ?M54.2 - Cervicalgia (ICD-10) Depression ?F32.A - Depression, unspecified (ICD-10) Anxiety ?F41.9 - Anxiety disorder, unspecified (ICD-10) Asthma ?J45.909 - Unspecified asthma, uncomplicated (ICD-10) Chronic obstructive pulmonary disease ?J44.9 - Chronic obstructive pulmonary disease, unspecified (ICD-10) Migraine ?G43.909 - Migraine, unspecified, not intractable, without status migrainosus (ICD-10) Kidney stones ?N20.0 - Calculus of kidney (ICD-10) GERD (gastroesophageal reflux disease) ?K21.9 - Gastro-esophageal reflux disease without esophagitis (ICD-10) Hypothyroidism ?E03.9 - Hypothyroidism, unspecified (ICD-10) Hiatal hernia ?K44.9 - Diaphragmatic hernia without obstruction or gangrene (ICD-10) Colon polyp ?K63.5 - Polyp of colon (ICD-10) Ovarian cyst ?N83.209 - Unspecified ovarian cyst, unspecified side (ICD-10) Endometriosis ?N80.9 - Endometriosis, unspecified (ICD-10) Hypertension ?I10 - Essential (primary) hypertension (ICD-10) Back pain ?M54.9 - Dorsalgia, unspecified (ICD-10) Chronic neck pain ?M54.2 - Cervicalgia (ICD-10) ?G89.29 - Other chronic pain (ICD-10) Open fracture of right hand ?S62.91XB - Unspecified fracture of right wrist and hand, initial encounter for open fracture (ICD-10) Anxiety and depression ?F41.9 - Anxiety disorder, unspecified (ICD-10) ?F32.A - Depression, unspecified (ICD-10) HTN (hypertension) ?I10 - Essential (primary) hypertension (ICD-10) Bulging of cervical intervertebral disc ?M50.30 - Other cervical disc degeneration, unspecified cervical region (ICD-10) Osteoporosis ?M81.0 - Age-related osteoporosis without current pathological fracture (ICD-10) Surgical History History of tonsillectomy ?Z90.89 - Acquired absence of other organs (ICD-10) History of colonoscopy ?Z98.890 - Other specified postprocedural states (ICD-10) History of esophagogastroduodenoscopy (EGD) ?Z98.890 - Other specified postprocedural states (ICD-10) History of laparoscopy ?Z98.890 - Other specified postprocedural states (ICD-10) History of appendectomy ?Z90.49 - Acquired absence of other specified parts of digestive tract (ICD-10) History of hysterectomy ?Z90.710 - Acquired absence of both cervix and uterus (ICD-10) History of cholecystectomy ?Z90.49 - Acquired absence of other specified parts of digestive tract (ICD-10) Family History Other Brain tumor Cancer Family history of aneurysm Family history of diabetes mellitus Family history of hypertension Social History Within the past year, how often did you have a drink containing alcohol: never Score interpretation: A score less than 3 is consistent with normal alcohol consumption. Smoking status: Current every day smoker What tobacco products do you use: cigarettes Cigarettes per day: 30 Years smoked: 36 Smoking pack-years: 54.00 Non-prescribed substance use: cannabis (any form) Highest level of school completed/degree received: 11th grade Little interest or pleasure in doing things: not at all Feeling down, depressed, or hopeless: not at all Exam Constitutional Vital Signs, click to edit/add: Last Vital Signs Temp 97.7 F 04/08/25 21:59 Pulse 117 H 04/09/25 05:40 Resp 23 H 04/09/25 05:40 BP 141/88 04/09/25 05:30 Pulse Ox 93 L 04/09/25 05:40 O2 Del Method Room Air 04/09/25 00:58 O2 Flow Rate 2 04/08/25 22:59 Common normals: oriented x3 and alert General appearance: in distress HENMT Common normals: normocephalic and head/scalp atraumatic Eye Common normals: EOMs intact bilaterally and conjunctivae normal Respiratory Common normals: clear to auscultation bilaterally Effort & inspection: tachypneic Cardio Common normals: regular rate, regular rhythm, S1 normal heart sound and S2 normal heart sound GI Common normals: soft to palpation Other: mild-mod epigastric tenderness Extremity Common normals: normal to inspection and full ROM Neuro Common normals: oriented x3, CN's II-XII intact bilaterally, moves all extremities and no focal motor deficits Psych Appearance: grossly normal Course Vital Signs Vital signs: Vital Signs Temperature 97.7 F 04/08/25 21:59 Pulse Rate 67 04/08/25 21:59 Respiratory Rate 36 H 04/08/25 21:59 Blood Pressure 190/95 H 04/08/25 21:59 Pulse Oximetry 97 04/08/25 21:59 Oxygen Delivery Method Room Air 04/08/25 21:59 Temperature 97.7 F 04/08/25 21:59 Pulse Rate 117 H 04/09/25 05:40 Respiratory Rate 23 H 04/09/25 05:40 Blood Pressure 141/88 04/09/25 05:30 Pulse Oximetry 93 L 04/09/25 05:40 Oxygen Delivery Method Room Air 04/09/25 00:58 Oxygen Delivery Flow Rate 2 04/08/25 22:59 MDM - Abdominal Pain MDM Narrative Medical decision making narrative: patient presents post ERCP stent placement for dilated CBD with increased post op pain. Labs demonstrate leukocytosis and elevated lipase and troponin. CT with findings of acute pancreatitis troponin increased from 102 to 221. EKG NSR with peaked narrow QRS. no ST changes. Cardiology paged. Discussed with Hospitalist Dr Contreras at [facility] and patient accepted for transfer Lab Data Labs: Lab Results 04/08/25 04/09/25 Range/Units 22:20 01:27 WBC 25.6 H (4.0-11.0) 10^3/uL RBC 4.78 (4.20-5.40) 10^6/uL Hgb 15.4 (12.0-16.0) g/dL Hct 44.5 (36.0-48.0) % MCV 93.1 (81.0-99.0) fL MCH 32.2 (26.7-34.0) pg MCHC 34.6 (29.9-35.2) g/dL RDW 11.9 (11.0-15.0) % Plt Count 322 (150-450) 10^3/uL MPV 10.8 (9.5-13.5) fL Seg Neuts % (Manual) 89.0 H (43.0-75.0) Lymphocytes % (Manual) 1.0 L (20.5-60.0) % Atypical Lymphs % (Man) 2.0 % Monocytes % (Manual) 8.0 (1.7-12.0) % Eosinophils % (Manual) 0.0 L (0.9-7.0) % Basophils % (Manual) 0.0 L (0.2-2.0) % Neutrophils # (Manual) 22.78 H (1.4-6.5) 10^3/uL Lymphocytes # (Manual) 0.25 L (1.20-3.80) 10^3/uL Abs Atypical Lymphs Man 0.51 Monocytes # (Manual) 2.04 H (0.30-0.80) 10^3/uL Eosinophils # (Manual) 0.00 (0.00-0.70) 10^3/uL Basophils # (Manual) 0.00 (0.00-0.10) 10^3/uL Sodium 140 (136-145) mmol/L Potassium 3.3 L (3.5-5.1) mmol/L Chloride 100 (98-107) mmol/L Carbon Dioxide 28.8 (21.0-32.0) mmol/L Anion Gap 14.5 BUN 17.0 (7.0-18.0) mg/dL Creatinine 0.59 (0.55-1.02) mg/dL Est GFR ( Amer) >60 (>=60 mL/min/1.73m^2) Est GFR (Non-Af Amer) >60 (>=60 mL/min/1.73m^2) BUN/Creatinine Ratio 28.8 Glucose 178 H (74-106) mg/dL Lactate 2.0 (0.4-2.0) mmol/L Calcium 9.3 (8.5-10.1) mg/dL Total Bilirubin 1.1 H (0.2-1.0) mg/dL AST 21 (15-37) U/L ALT 20 (14-59) U/L Alkaline Phosphatase 103 (46-116) U/L Troponin I High Sens 102.3 H* 221.5 H* (4.0-51.3) pg/mL Total Protein 7.4 (6.4-8.2) g/dL Albumin 4.0 (3.4-5.0) g/dL Globulin 3.4 g/dL Albumin/Globulin Ratio 1.2 Lipase 1743.0 H* (16.0-77.0) U/L Discharge Plan Discharge Chief Complaint: Abdominal Pain Clinical Impression: Pancreatitis, Leukocytosis, Elevated troponin, Hypertensive urgency Patient Disposition: [facility] Hospital Discharge Date/Time: 04/09/25 06:00
[2025-04-08] MEDS: ONDANSETRON PF 4 MG/2 ML VIAL IV (22:20)
[2025-04-08] MEDS: FENTANYL CITRATE/PF 100 MCG/2 ML VIAL IV (22:20)
[2025-04-08 22:25] VITALS: O2SAT 85
[2025-04-08 22:28] VITALS: BP 176/120
[2025-04-08] MEDS: HYDRALAZINE HCL 20 MG/ML VIAL 5 MG IVP (22:28)
[2025-04-08 22:31] LABS: Hematocrit 44.5 % (36.0-48.0); Hemoglobin 15.4 g/dL (12.0-16.0); Mean Corpuscular HGB Conc 34.6 g/dL (29.9-35.2); Mean Corpuscular Hemoglobin 32.2 pg (26.7-34.0); Mean Corpuscular Volume 93.1 fL (81.0-99.0); Mean Platelet Volume 10.8 fL (9.5-13.5); Platelet Count 322 10^3/uL (150-450); Red Blood Count 4.78 10^6/uL (4.20-5.40); Red Cell Distribution Width 11.9 % (11.0-15.0); White Blood Count 25.6 10^3/uL (4.0-11.0)
[2025-04-08 22:43] LABS: Lymphocytes Absolute Manual 0.25 10^3/uL (1.20-3.80); Segmented Neut Absolute Manual 22.78 10^3/uL (1.4-6.5)
[2025-04-08 22:44] LABS: Atypical Lymphocytes Abs Man 0.51; Monocytes Absolute Manual 2.04 10^3/uL (0.30-0.80)
[2025-04-08 22:47] LABS: Alanine Aminotransferase 20 U/L (14-59); Albumin Globulin Ratio 1.2; Alkaline Phosphatase 103 U/L (46-116); Anion Gap 14.5; Aspartate Amino Transferase 21 U/L (15-37); BUN Creatinine Ratio 28.8; Bilirubin Total 1.1 mg/dL (0.2-1.0); Calcium 9.3 mg/dL (8.5-10.1); Carbon Dioxide 28.8 mmol/L (21.0-32.0); Chloride 100 mmol/L (98-107); Estimated GFR (African America >60 (>=60 mL/min/1.73m^2); Estimated GFR (Non-African Ame >60 (>=60 mL/min/1.73m^2); Globulin 3.4 g/dL; Glucose 178 mg/dL (74-106); Potassium 3.3 mmol/L (3.5-5.1); Sodium 140 mmol/L (136-145); Total Protein 7.4 g/dL (6.4-8.2)
[2025-04-08 22:59] VITALS: BP 168/105; PULSE 95; O2SAT 97
[2025-04-08 23:01] LABS: Troponin I High Sensitivity 102.3 pg/mL (4.0-51.3)
[2025-04-08] MEDS: 0.9 % SODIUM CHLORIDE 500 ML IV (23:53)
[2025-04-09] VITALS (33 sets, daily range): BP systolic 132–183; BP diastolic 80–115; PULSE 62–127; O2SAT 91–97
[2025-04-09] MEDS: FENTANYL CITRATE/PF 100 MCG/2 ML VIAL 50 MCG IV (00:49)
--- NOTE | 2025-04-09 02:01 | ECG_ITS ---
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 Measurements Intervals [place] Rate: 77 P: 72 MN: 112 QRS: 81 QRSD: 104 T: 79 QT: 478 QTc: 509 Interpretive Statements 1100 Sinus rhythm 2210 Short MN interval 8304 Long QTc interval 9150 abnormal ECG Compared to ECG 01/28/2025 21:43:28 No significant changes Electronically Signed On 04-09-2025 21:09:27 EDT by AILYN CAMPOS M.D.
[2025-04-09 02:02] LABS: Troponin I High Sensitivity 221.5 pg/mL (4.0-51.3)
[2025-04-09] MEDS: HYDRALAZINE HCL 20 MG/ML VIAL 5 MG IVP (03:03)
[2025-04-09] MEDS: FENTANYL CITRATE/PF 100 MCG/2 ML VIAL IV (03:16)
[2025-04-09] MEDS: ONDANSETRON PF 4 MG/2 ML VIAL IV (04:53)
[2025-04-09] MEDS: DIAZEPAM 10 MG/2 ML SYRINGE 5 MG IV (05:00)
== END 2025-04-09 06:00 | disposition short-term general hospital (02) ==
PROVIDERS: Emergency Provider Internal Medicine
DX: K85.90 Acute pancreatitis without necrosis or infection, unspecified (principal); I16.0 Hypertensive urgency; R79.89 Other specified abnormal findings of blood chemistry; I10 Essential (primary) hypertension; Z90.49 Acquired absence of other specified parts of digestive tract; Z98.890 Other specified postprocedural states; Z90.710 Acquired absence of both cervix and uterus; F17.210 Nicotine dependence, cigarettes, uncomplicated; D72.829 Elevated white blood cell count, unspecified
CPT/HCPCS: 36415; 71045; 74177; 80053; 83605; 83690; 84484; 85007; 85027; 93005; 96361; 96374; 96375; 96376; 99285; J0360; J2405; J3010; J3360; Q9967

== ENCOUNTER 2025-04-17 17:02 | Emergency (ER) | payer OTHER, SELFPAY ==
[2025-04-17 17:11] VITALS: BP 149/95; PULSE 62; TEMP 37.3; O2SAT 100; BMI 21.2
--- NOTE | 2025-04-17 17:19 | PC.NURSE ---
area to left thigh has a red area with swelling. right thigh does not appear to be swelling but pt states bilat thighs are swollen.
--- NOTE | 2025-04-17 18:21 | ED.GENADUL1 ---
Documented by User: Frank Scott NP 04/17/25 19:55 HPI HPI - General Adult General Chief complaint: Extremity Problem, Nontraumatic Stated complaint: R LEG PAIN Time Seen by Provider: 04/17/25 17:22 Source: patient Mode of arrival: walk-in History of Present Illness HPI narrative: Patient is a 49-year-old female who presents to the emergency department today for evaluation of concerns for pain to her right upper leg. She endorses she was recently hospitalized in [place] in the last week for an ERCP and mentions at that time she was getting Phenergan injections in her thigh. She reports since then she some pain at the sites of the injection to her right leg with swelling. She is concerned for blood clot so presented to the ER. She denies any paresthesias, weakness or loss of movement to the affected extremity. No history of VTE. She denies any chest pain, shortness of breath, dizziness or syncope. Reports she is taking Percocet but did not take any today for pain. Related Data Home Medications ?Medication ?Instructions ?Recorded ?Confirmed budesonide-formoterol HFA 80 2 puff inhalation Q12H 01/01/25 04/08/25 mcg-4.5 mcg/actuation aerosol inhaler (Symbicort) gabapentin 300 mg capsule 300 mg PO DAILY 01/01/25 04/08/25 levothyroxine 25 mcg tablet 25 mcg PO DAILY 04/08/25 04/08/25 metoprolol tartrate 25 mg tablet 25 mg PO Q12H 04/08/25 04/08/25 pantoprazole 40 mg tablet,delayed 40 mg PO DAILY 04/08/25 04/08/25 release Previous Rx's ?Medication ?Instructions ?Recorded albuterol sulfate 90 mcg/actuation 2 inh inhalation Q4H PRN shortness 01/01/25 aerosol inhaler of breath or wheezing 7 days #8.5 grams Allergies Allergy/AdvReac Type Severity Reaction Status Date / Time No Known Drug Allergies Allergy Verified 04/08/25 22:05 Opioid HPI Opioid Management Most Recent Opioid Data: Last Pain Scale 7 04/09/25, 03:16 Review of Systems ROS Status of ROS 10 or more systems reviewed and unremarkable except as noted in history and below [facility] PFS Medical History Full dentures ?Z97.2 - Presence of dental prosthetic device (complete) (partial) (ICD-10) ?K08.109 - Complete loss of teeth, unspecified cause, unspecified class (ICD-10) Neck pain ?M54.2 - Cervicalgia (ICD-10) Depression ?F32.A - Depression, unspecified (ICD-10) Anxiety ?F41.9 - Anxiety disorder, unspecified (ICD-10) Asthma ?J45.909 - Unspecified asthma, uncomplicated (ICD-10) Chronic obstructive pulmonary disease ?J44.9 - Chronic obstructive pulmonary disease, unspecified (ICD-10) Migraine ?G43.909 - Migraine, unspecified, not intractable, without status migrainosus (ICD-10) Kidney stones ?N20.0 - Calculus of kidney (ICD-10) GERD (gastroesophageal reflux disease) ?K21.9 - Gastro-esophageal reflux disease without esophagitis (ICD-10) Hypothyroidism ?E03.9 - Hypothyroidism, unspecified (ICD-10) Hiatal hernia ?K44.9 - Diaphragmatic hernia without obstruction or gangrene (ICD-10) Colon polyp ?K63.5 - Polyp of colon (ICD-10) Ovarian cyst ?N83.209 - Unspecified ovarian cyst, unspecified side (ICD-10) Endometriosis ?N80.9 - Endometriosis, unspecified (ICD-10) Hypertension ?I10 - Essential (primary) hypertension (ICD-10) Back pain ?M54.9 - Dorsalgia, unspecified (ICD-10) Chronic neck pain ?M54.2 - Cervicalgia (ICD-10) ?G89.29 - Other chronic pain (ICD-10) Open fracture of right hand ?S62.91XB - Unspecified fracture of right wrist and hand, initial encounter for open fracture (ICD-10) Anxiety and depression ?F41.9 - Anxiety disorder, unspecified (ICD-10) ?F32.A - Depression, unspecified (ICD-10) HTN (hypertension) ?I10 - Essential (primary) hypertension (ICD-10) Bulging of cervical intervertebral disc ?M50.30 - Other cervical disc degeneration, unspecified cervical region (ICD-10) Osteoporosis ?M81.0 - Age-related osteoporosis without current pathological fracture (ICD-10) Surgical History History of tonsillectomy ?Z90.89 - Acquired absence of other organs (ICD-10) History of colonoscopy ?Z98.890 - Other specified postprocedural states (ICD-10) History of esophagogastroduodenoscopy (EGD) ?Z98.890 - Other specified postprocedural states (ICD-10) History of laparoscopy ?Z98.890 - Other specified postprocedural states (ICD-10) History of appendectomy ?Z90.49 - Acquired absence of other specified parts of digestive tract (ICD-10) History of hysterectomy ?Z90.710 - Acquired absence of both cervix and uterus (ICD-10) History of cholecystectomy ?Z90.49 - Acquired absence of other specified parts of digestive tract (ICD-10) Family History Other Brain tumor Cancer Family history of aneurysm Family history of diabetes mellitus Family history of hypertension Social History Within the past year, how often did you have a drink containing alcohol: never Score interpretation: A score less than 3 is consistent with normal alcohol consumption. Smoking status: Current every day smoker What tobacco products do you use: cigarettes Cigarettes per day: 30 Years smoked: 36 Smoking pack-years: 54.00 Non-prescribed substance use: cannabis (any form) Highest level of school completed/degree received: 11th grade Little interest or pleasure in doing things: not at all Feeling down, depressed, or hopeless: not at all Exam Narrative Exam Narrative: Constituational: Awake/ alert, no apparent distress, chronically ill-appearing, appears older than stated age HENMT: normocephalic, external ears normal, moist oral mucous membranes and oropharynx normal Eyes: EOMI and conjunctivae normal Neck: ROM intact Chest: inspection of chest normal Respiratory: Normal respiratory effort, clear to auscultation bilaterally Cardio: regular rate and regular rhythm GI: soft to palpation and non-tender Back: nontender MSK: + Mild discomfort palpation over anterior lateral L upper leg without surrounding edema, erythema, ecchymosis, crepitus, or deformity, otherwise normal inspection of L leg, ROM intact, +NVI Skin: no rashes or petechiae Neuro: no focal deficits Psych: mental status grossly normal Constitutional Vital Signs, click to edit/add: Last Vital Signs Temp 99.2 F 04/17/25 17:11 Pulse 62 04/17/25 17:11 Resp 16 04/17/25 17:11 BP 149/95 H 04/17/25 17:11 Pulse Ox 100 04/17/25 17:11 O2 Del Method Room Air 04/17/25 17:11 Course Vital Signs Vital signs: Vital Signs Temperature 99.2 F 04/17/25 17:11 Pulse Rate 62 04/17/25 17:11 Respiratory Rate 16 04/17/25 17:11 Blood Pressure 149/95 H 04/17/25 17:11 Pulse Oximetry 100 04/17/25 17:11 Oxygen Delivery Method Room Air 04/17/25 17:11 Temperature 99.2 F 04/17/25 17:11 Pulse Rate 62 04/17/25 17:11 Respiratory Rate 16 04/17/25 17:11 Blood Pressure 149/95 H 04/17/25 17:11 Pulse Oximetry 100 04/17/25 17:11 Oxygen Delivery Method Room Air 04/17/25 17:11 Medical Decision Making MDM Narrative Medical decision making narrative: Patient is a nontoxic-appearing 49-year-old female who presented to the emergency department today for evaluation of concerns for pain to her left upper leg at the site she was receiving injections of Phenergan in the past week during a hospitalization in [place]. Initial examination without any concerning neurovascular or motor findings on exam. No evidence of infectious processes such as cellulitis or abscess present. Patient was concern for possible DVT so presented to the ER. Venous Dopplers negative for DVT and critical findings. Discussed this with the patient including recommendations for supportive care following pain and injection sites and possible myalgia. Advised on follow-up with patient's primary care provider for reevaluation. Discussed signs and symptoms of any worsening condition and when to consider reevaluation by the emergency department. Patient verbalized an understanding of this and is agreeable with the plan to be discharged home. Medical Records Medical records reviewed: Yes I reviewed the patient's medical records Lab Data Lab results reviewed: Yes I reviewed the patient's lab results Imaging Data Venous US: Attestation: I have reviewed the pertinent imaging results. Radiologist's impression: Negative for DVT of lower extremity per radiology interpretation Discharge Plan Discharge Chief Complaint: Extremity Problem, Nontraumatic Clinical Impression: Pain at injection site, Myalgia Patient Disposition: Home, Self-Care Prescriptions / Home Meds: No Action levothyroxine 25 mcg tablet 25 mcg PO DAILY metoprolol tartrate 25 mg tablet 25 mg PO Q12H pantoprazole 40 mg tablet,delayed release (DR/EC) 40 mg PO DAILY gabapentin 300 mg capsule 300 mg PO DAILY budesonide-formoterol [Symbicort] 80-4.5 mcg/actuation HFA aerosol inhaler 2 puff INHALATION Q12H albuterol sulfate 90 mcg/actuation HFA aerosol inhaler 2 inh inhalation Q4H PRN (Reason: shortness of breath or wheezing) 7 Days Qty: 8.5 0RF Print Language: Indonesian Additional Instructions: Apply cool compresses and Tylenol and ibuprofen as needed for any pain. Follow-up with your primary care provider for reevaluation as discussed. Referrals: Physician,Non-Staff, [Primary Care Provider] - 1 week Documented by User: Rashad Blair MD 04/17/25 20:08 HPI HPI - General Adult General Chief complaint: Extremity Problem, Nontraumatic Stated complaint: R LEG PAIN Time Seen by Provider: 04/17/25 17:22 Related Data Home Medications ?Medication ?Instructions ?Recorded ?Confirmed budesonide-formoterol HFA 80 2 puff inhalation Q12H 01/01/25 04/08/25 mcg-4.5 mcg/actuation aerosol inhaler (Symbicort) gabapentin 300 mg capsule 300 mg PO DAILY 01/01/25 04/08/25 levothyroxine 25 mcg tablet 25 mcg PO DAILY 04/08/25 04/08/25 metoprolol tartrate 25 mg tablet 25 mg PO Q12H 04/08/25 04/08/25 pantoprazole 40 mg tablet,delayed 40 mg PO DAILY 04/08/25 04/08/25 release Previous Rx's ?Medication ?Instructions ?Recorded albuterol sulfate 90 mcg/actuation 2 inh inhalation Q4H PRN shortness 01/01/25 aerosol inhaler of breath or wheezing 7 days #8.5 grams Allergies Allergy/AdvReac Type Severity Reaction Status Date / Time No Known Drug Allergies Allergy Verified 04/08/25 22:05 Opioid HPI Opioid Management Most Recent Opioid Data: Last Pain Scale 7 04/09/25, 03:16 PFSH PFSH Medical History Full dentures ?Z97.2 - Presence of dental prosthetic device (complete) (partial) (ICD-10) ?K08.109 - Complete loss of teeth, unspecified cause, unspecified class (ICD-10) Neck pain ?M54.2 - Cervicalgia (ICD-10) Depression ?F32.A - Depression, unspecified (ICD-10) Anxiety ?F41.9 - Anxiety disorder, unspecified (ICD-10) Asthma ?J45.909 - Unspecified asthma, uncomplicated (ICD-10) Chronic obstructive pulmonary disease ?J44.9 - Chronic obstructive pulmonary disease, unspecified (ICD-10) Migraine ?G43.909 - Migraine, unspecified, not intractable, without status migrainosus (ICD-10) Kidney stones ?N20.0 - Calculus of kidney (ICD-10) GERD (gastroesophageal reflux disease) ?K21.9 - Gastro-esophageal reflux disease without esophagitis (ICD-10) Hypothyroidism ?E03.9 - Hypothyroidism, unspecified (ICD-10) Hiatal hernia ?K44.9 - Diaphragmatic hernia without obstruction or gangrene (ICD-10) Colon polyp ?K63.5 - Polyp of colon (ICD-10) Ovarian cyst ?N83.209 - Unspecified ovarian cyst, unspecified side (ICD-10) Endometriosis ?N80.9 - Endometriosis, unspecified (ICD-10) Hypertension ?I10 - Essential (primary) hypertension (ICD-10) Back pain ?M54.9 - Dorsalgia, unspecified (ICD-10) Chronic neck pain ?M54.2 - Cervicalgia (ICD-10) ?G89.29 - Other chronic pain (ICD-10) Open fracture of right hand ?S62.91XB - Unspecified fracture of right wrist and hand, initial encounter for open fracture (ICD-10) Anxiety and depression ?F41.9 - Anxiety disorder, unspecified (ICD-10) ?F32.A - Depression, unspecified (ICD-10) HTN (hypertension) ?I10 - Essential (primary) hypertension (ICD-10) Bulging of cervical intervertebral disc ?M50.30 - Other cervical disc degeneration, unspecified cervical region (ICD-10) Osteoporosis ?M81.0 - Age-related osteoporosis without current pathological fracture (ICD-10) Surgical History History of tonsillectomy ?Z90.89 - Acquired absence of other organs (ICD-10) History of colonoscopy ?Z98.890 - Other specified postprocedural states (ICD-10) History of esophagogastroduodenoscopy (EGD) ?Z98.890 - Other specified postprocedural states (ICD-10) History of laparoscopy ?Z98.890 - Other specified postprocedural states (ICD-10) History of appendectomy ?Z90.49 - Acquired absence of other specified parts of digestive tract (ICD-10) History of hysterectomy ?Z90.710 - Acquired absence of both cervix and uterus (ICD-10) History of cholecystectomy ?Z90.49 - Acquired absence of other specified parts of digestive tract (ICD-10) Family History Other Brain tumor Cancer Family history of aneurysm Family history of diabetes mellitus Family history of hypertension Social History Within the past year, how often did you have a drink containing alcohol: never Score interpretation: A score less than 3 is consistent with normal alcohol consumption. Smoking status: Current every day smoker What tobacco products do you use: cigarettes Cigarettes per day: 30 Years smoked: 36 Smoking pack-years: 54.00 Non-prescribed substance use: cannabis (any form) Highest level of school completed/degree received: 11th grade Little interest or pleasure in doing things: not at all Feeling down, depressed, or hopeless: not at all Exam Constitutional Vital Signs, click to edit/add: Last Vital Signs Temp 99.2 F 04/17/25 17:11 Pulse 62 04/17/25 17:11 Resp 16 04/17/25 17:11 BP 149/95 H 04/17/25 17:11 Pulse Ox 100 04/17/25 17:11 O2 Del Method Room Air 04/17/25 17:11 Course Vital Signs Vital signs: Vital Signs Temperature 99.2 F 04/17/25 17:11 Pulse Rate 62 04/17/25 17:11 Respiratory Rate 16 04/17/25 17:11 Blood Pressure 149/95 H 04/17/25 17:11 Pulse Oximetry 100 04/17/25 17:11 Oxygen Delivery Method Room Air 04/17/25 17:11 Temperature 99.2 F 04/17/25 17:11 Pulse Rate 62 04/17/25 17:11 Respiratory Rate 16 04/17/25 17:11 Blood Pressure 149/95 H 04/17/25 17:11 Pulse Oximetry 100 04/17/25 17:11 Oxygen Delivery Method Room Air 04/17/25 17:11 Medical Decision Making [facility] Narrative Medical decision making narrative: Patient is a nontoxic-appearing 49-year-old female who presented to the emergency department today for evaluation of concerns for pain to her left upper leg at the site she was receiving injections of Phenergan in the past week during a hospitalization in [place]. Initial examination without any concerning neurovascular or motor findings on exam. No evidence of infectious processes such as cellulitis or abscess present. Patient was concern for possible DVT so presented to the ER. Venous Dopplers negative for DVT and critical findings. Discussed this with the patient including recommendations for supportive care following pain and injection sites and possible myalgia. Advised on follow-up with patient's primary care provider for reevaluation. Discussed signs and symptoms of any worsening condition and when to consider reevaluation by the emergency department. Patient verbalized an understanding of this and is agreeable with the plan to be discharged home. I, Dr Blair, have reviewed the above progress note and course of action in the ER; agree with the above. I have personally gone over history and physical, and discussed disposition and treatment plan with the PA. Discharge Plan Discharge Chief Complaint: Extremity Problem, Nontraumatic Clinical Impression: Pain at injection site, Myalgia Patient Disposition: Home, Self-Care Prescriptions / Home Meds: No Action levothyroxine 25 mcg tablet 25 mcg PO DAILY metoprolol tartrate 25 mg tablet 25 mg PO Q12H pantoprazole 40 mg tablet,delayed release (DR/EC) 40 mg PO DAILY gabapentin 300 mg capsule 300 mg PO DAILY budesonide-formoterol [Symbicort] 80-4.5 mcg/actuation HFA aerosol inhaler 2 puff INHALATION Q12H albuterol sulfate 90 mcg/actuation HFA aerosol inhaler 2 inh inhalation Q4H PRN (Reason: shortness of breath or wheezing) 7 Days Qty: 8.5 0RF Print Language: Indonesian Additional Instructions: Apply cool compresses and Tylenol and ibuprofen as needed for any pain. Follow-up with your primary care provider for reevaluation as discussed. Referrals: Physician,Non-Staff, MD [Primary Care Provider] - 1 week
[2025-04-17 20:10] VITALS: PULSE 88; O2SAT 96
== END 2025-04-17 20:11 | disposition home or self-care (01) ==
PROVIDERS: Emergency Provider Emergency Medicine
DX: M79.10 Myalgia, unspecified site (principal); M79.651 Pain in right thigh; Z90.49 Acquired absence of other specified parts of digestive tract; Z90.710 Acquired absence of both cervix and uterus; F17.210 Nicotine dependence, cigarettes, uncomplicated
CPT/HCPCS: 93971; 99284

== ENCOUNTER 2025-04-26 17:14 | Emergency (ER) | payer OTHER, SELFPAY ==
[2025-04-26] VITALS (41 sets, daily range): BP systolic 133–186; BP diastolic 89–135; PULSE 70–108; TEMP 36.8; O2SAT 60–100; BMI 19.8
--- OUTSIDE RECORDS SUMMARY | 2025-04-26 17:21 | XMS_ITS | CCD ---
Author Organization [facility] Care Team Providers Care Sap Basis Name Role Phone Woo FALCON Attending Unavailable [...] Bryan Consulting Unavailable EDWARD, JIMMY Consulting Unavailable HAYDEN RECINOS Referring Unavailable JESSICA, HAYDEN Garcia Admitting Unavailable HAYDEN RECINOS Attending Unavailable HAYDEN RECINOS Referring Unavailable RECINOSHAYDEN LEIJA Referring Unavailable RECINOSHAYDEN Referring Unavailable NO FAMILY, PHYSICIAN Primary Care Provider Unava ilLEXI Saucedo Emergency Provider [phone] Vikram Mckenna MD Attending Unavailable Vikram Mckenna MD Admitting Unavailable Unavailable, Physician Primary Care Unavailab Hayden Ferro DO Consulting UnavailZackery Michaud Attending Unavailable Zackery Griggs Admitting Unavailable NO FAMILY, PHYSICIAN Primary Care Unavailable Vani Spivey MD Primary Care Provider [phone] EVANS THOMAS Attending Unavailable HORANI, ASMITA Admitting Unavailable , AMARJIT Attending Unavailable VAUGHN GIBBS Referring Unavailable NAWRAS, ALI Referring Unavailable NAWRAS, ALI Admitting Unavailable NAWRAS, ALI Referring Unavailable NAWRAS, ALI Attending Unavailable YUKI ARIAS Referring Unavailable NAWRAS, ALI Attending Unavailable NAWRAS, ALI Admitting Unavailable HORANI, ASMITA Referring Unavailable Allergies Allergy Classification Reported Allergen(s) Allergy Type Date of Onset Reaction(s) Facility (2 sources) No Known Medication Allergies; Translations: [No Known Medication Allergies] Propensity to adverse reactions (disorder) [facility] Repository Medications Current Medications Medication Drug Class(es) Dates Sig (Normalized) Sig (Original) [id number] 200 actuat albuterol 0.09 mg/actuat metered dose inhaler (2 sources) beta2-Adrenergic Agonist albuterol HFA 90 mcg/act inhaler Inhale 2 puffs in the morning and 2 puffs at noon and 2 puffs in the evening. Active gabapentin 300 mg oral capsule (2 sources) Anti-epileptic Agent Start: 01-01-2025 take 1 capsule by mouth twice daily as needed gabapentin (Neurontin) 300 MG capsule Take 1 capsule by mouth 2 (two) times a day as needed 01/01/2025 Active Problems Active Problems Problem Classification Problem Date Documented Da te Episodic/Chronic Asthma (1 source) Unspecified asthma, uncomplicated; Translations: [UNSPECIFIED ASTHMA UNCOMPLICATED] Onset: 02-26-2023 Chronic Biliary tract disease (2 sources) Other specified diseases of biliary tract; Translations: [Other specified diseases of biliary tract] Onset: 04-09-2025 Chronic Biliary tract disease (2 sources) Calculus of bile duct without cholangitis or cholecystitis without obstruction; Translations: [Calculus of bile duct without cholangitis or cholecystitis without obstruction] Onset: 04-08-2025 Episodic Chronic obstructive pulmonary disease and bronchiectasis (2 sources) Chronic obstructive pulmonary disease with (acute) exacerbation; Translations: [Chronic obstructive pulmonary disease, unspecified] Onset: 05-03-2022 Chronic Complications of surgical procedures or medical care (2 sources) Other postprocedural complications and disorders of digestive system; Translations: [Other postprocedural complications and disorders of digestive system] Onset: 04-09-2025 Episodic Diabetes mellitus without complication (1 source) Type 2 diabetes mellitus without complications; Translations: [TYPE 2 DM WITHOUT COMPLICATIONS] Onset: 03-27-2022 Chronic Essential hypertension (3 sources) Essential (primary) hypertension; Translations: [ESSENTIAL PRIMARY HYPERTENSION] Onset: 02-26-2023 Chronic Fluid and electrolyte disorders (7 sources) Hypokalemia; Translations: [HYPOKALEMIA] Onset: 08-18-2022 Episodic Fracture of upper limb (4 sources) Displaced [...] 01-15-2023 Chronic Other aftercare (1 source) Other intermediate designer (current) drug therapy; Translations: [OTH M[facility] CURRENT DRUG THERAPY] Onset: 02-26-2023 Episodic Other connective tissue disease (4 sources) Pain in right hand; Translations: [PAIN IN RIGHT HAND] Onset: 03-05-2023 Episodic Other connective tissue disease (1 source) Pain in finger; Translations: [Pain in unspecified finger(s)] 08-13-2024 Episodic Other connective tissue disease (2 sources) Pain in left foot; Translations: [Pain in left foot] 03-18-2025 Episodic Other gastrointestinal disorders (2 sources) Slow transit constipation; Translations: [Slow transit constipation] Onset: 04-09-2025 Episodic Other nervous system disorders (1 source) Other chronic pain; Translations: [OTHER CHRONIC PAIN] Onset: 02-26-2023 Chronic Other nervous system disorders (4 sources) Polyneuropathy, unspecified; Translations: [POLYNEUROPATHY UNSPECIFIED] Onset: 11-15-2022 Chronic Other nutritional; endocrine; and metabolic disorders (2 sources) Hypomagnesemia; Translations: [Hypomagnesemia] Onset: 04-09-2025 Chronic Other nutritional; endocrine; and metabolic disorders (2 sources) Hypocalcemia; Translations: [Hypocalcemia] Onset: 04-09-2025 Chronic Other screening for suspected conditions (not mental disorders or infectious disease) (10 sources) Encounter for screening, unspecified; Translations: [Encounter for screening mammogram for malignant neoplasm of breast] Onset: 09-14-2022 Episodic Other skin disorders (2 sources) Dystrophia unguium; Translations: [Nail dystrophy] 03-18-2025 Episodic Other upper respiratory disease (4 sources) Nasal congestion; Translations: [NASAL CONGESTION] Onset: 01-29-2023 Episodic Pancreatic disorders (not diabetes) (2 sources) Acute pancreatitis without necrosis or infection, unspecified; Translations: [Acute pancreatitis without necrosis or infection, unspecified] Onset: 04-09-2025 Episodic Residual codes; unclassified (1 source) Acquired [...] MALIG NEOPLASM OTH ORGN/SYS] Onset: 01-15-2023 Episodic Residual codes; unclassified (2 sources) Tobacco use; Translations: [Tobacco use] Onset: 04-09-2025 Episodic Spondylosis; intervertebral disc disorders; other back problems (5 sources) Cervicalgia; Translations: [Dorsalgia, unspecified] Onset: 05-03-2022 Episodic Substance-related disorders (3 sources) Nicotine dependence, cigarettes, uncomplicated; Translations: [Other psychoactive substance abuse, uncomplicated] Onset: 05-03-2022 Chronic Superficial injury; contusion (4 sources) Contusion of other part of head, initial encounter; Translations: [Abrasion of left ear, initial encounter] Onset: 03-27-2022 03-18-2025 Episodic Thyroid disorders (5 sources) Hypothyroidism, unspecified; Translations: [HYPOTHYROIDISM UNSPECIFIED] Onset: 02-20-2023 Chronic Unclassified (1 source) LOW BACK PAIN, UNSPECIFIED; Translations: [LOW BACK PAIN, UNSPECIFIED] Onset: 08-18-2022 Unclassified (1 source) Esophagitis, unspecified without bleeding; Translations: [Esophagitis, unspecified without bleeding] Onset: 04-09-2025 Viral infection (1 source) COVID-19; Translations: [COVID-19] [...] AGNST/STRUCK OTH OBJ INIT] Onset: 2022 Episodic Immunizations and screening for infectious disease [...] right ankle, initial encounter] Onset: 03-27-2022 Episodic Unclassified (1 source) Esophagitis, unspecified without bleeding; Translations: [Esophagitis, unspecified without bleeding] Onset: 04-09-2025 Results Test Name Value Interpretation Reference Range Facility Telephoneon 04-16-2025 Telephone [id number] SebastianLisa indra Chan 1975 F Date Provider Department Center 04/16/2025 JUANA JONES [facility] No family history on file Normal [facility] 36on 04-14-2025 36 Post Discharge Call Good afternoon, I am Autumn Santacruz, RN a lead nurse from [facility]. I am calling you to follow up on your stay with us and make sure all of your questions have been answered. You will be receiving a survey either electronic or via mail and we always aim to receive 9???s and 10???s. If there is any reason you feel as though you cannot give us these scores please indicate that now. 1. How have you been feeling since being discharged from the hospital? I'm doing better,. I can eat and do stuff now. The nurses were all amazing and I want to especially mention the great care given by Ritchie Brooks, and Sara. 2. Did you understand your discharge instructions when they were given to prior to leaving? Yes Were you given an opportunity to ask questions? Yes 3. While a patient in the hospital, was your call light answered in a timely manner? Yes 4. Do have access to all medications that were prescribed to you at discharge? Yes 5. How would you rate your overall stay on a scale of 0-10, 10 being the best experience you have ever had. 9 6. Do you have any further questions you would like to discuss? No Patient Name Kati Thorne Date 04/14/25 [facility] Telephoneon 04-14-2025 Telephone [id number] Lisa Thorne 1975 F Date Provider Department Center 04/14/2025 AUTUMN MOSLEY [facility] No family history on file Reason for Visit and Comments: post discharge call back [Other] Normal [facility] 30on 04-13-2025 30 The patient is Moderately Stable - Low risk of patient condition declining or worsening The patient's goals for the shift include comfort The clinical goals for the shift include vss Over the shift, the patient did make progress toward the following goals. Problem: Pain - Adult Goal: Verbalizes/displays adequate comfort level or baseline comfort level Outcome: Progressing Problem: Safety - Adult Goal: Free from fall injury Outcome: Progressing Problem: Discharge Planning Goal: Discharge to home or other facility with appropriate resources Outcome: Progressing Problem: Chronic Conditions and Co-morbidities Goal: Patient's chronic conditions and co-morbidity symptoms are monitored and maintained or improved Outcome: Progressing Normal [facility] 30 The patient is Moderately Stable - Low risk of patient condition declining or worsening The patient's goals for the shift include rest, comfort, pain control The clinical goals for the shift include vss, safety Over the shift, the patient did not make progress toward the following goals. Barriers to progression include pain uncontrolled by current PRN medications. Recommendations to address these barriers include making changes to the plan of care as needed. Problem: Pain - Adult Goal: Verbalizes/displays adequate comfort level or baseline comfort level Outcome: Not Progressing Flowsheets (Taken 04/12/20252026) Verbalizes/displays adequate comfort level or baseline comfort level: Encourage patient to monitor pain and request assistance Assess pain using appropriate pain scale Administer analgesics based on type and severity of pain and evaluate response Implement non-pharmacological measures as appropriate and evaluate response Consider cultural and social influences on pain and pain management Notify Licensed Independent Practitioner if interventions unsuccessful or patient reports new pain [facility] 30on 04-12-2025 30 The patient is Moderately Stable - Low risk of patient condition declining or worsening The patient's goals for the shift include Comfort and rest The clinical goals for the shift include VSS and safety [facility] 30 The patient is Moderately Stable - Low risk of patient condition declining or worsening The patient's goals for the shift include comfort The clinical goals for the shift include VSS, comfort, rest Problem: Pain - Adult Goal: Verbalizes/displays adequate comfort level or baseline comfort level Flowsheets (Taken 04/12/2025234) Verbalizes/displays adequate comfort level or baseline comfort level: Encourage patient to monitor pain and request assistance Assess pain using appropriate pain scale Administer analgesics based on type and severity of pain and evaluate response Implement non-pharmacological measures as appropriate and evaluate response Consider cultural and social influences on pain and pain management Notify Licensed Independent Practitioner if interventions unsuccessful or patient reports new pain Problem: Safety - Adult Goal: Free from fall injury Flowsheets (Taken 04/12/2025234) Free from fall injury: Assess patient frequently for physical needs Identify cognitive and physical deficits and behaviors that affect risk of falls Adrian fall precautions as indicated by assessment Educate patient/family on patient safety, including physical limitations Instruct patient to call for assistance with activity based on assessment Modify environment to reduce risk of injury Problem: Discharge Planning Goal: Discharge to home or other facility with appropriate resources Flowsheets (Taken 04/12/2025234) Discharge to home or other facility with appropriate resources: Identify barriers to discharge with patient and caregiver Arrange for needed discharge resources and transportation as appropriate Identify discharge learning needs (meds, wound care, etc) Refer to discharge planning if patient needs post-hospital services based on physician order or complex needs related to functional status, cognitive ability or social support system Problem: Chronic Conditions and Co-morbidities Goal: Patient's chronic conditions and co-morbidity symptoms are monitored and maintained or improved Flowsheets (Taken 04/12/2025234) Care Plan - Patient's Chronic Conditions and Co-Morbidity Symptoms are Monitored and Maintained or Improved: Monitor and assess patient's chronic conditions and comorbid symptoms for stability, deterioration, or improvement Collaborate with multidisciplinary team to address chronic and comorbid conditions and prevent exacerbation or deterioration Update acute care plan with appropriate goals if chronic or comorbid symptoms are exacerbated and prevent overall improvement and discharge Normal [facility] BASIC METABOLIC PANELon 06-0 Anion gap [Moles/Vol] 10 mmol/L Normal 7-20 [facility] Comment on above: Performed By: #### L [id number] ####[facility] (BEAKER)[address] [place] [address] Calcium [Mass/Vol] 7.0 mg/dL Low 8.6-10.3 [facility] Comment on above: Performed By: #### L [id number] ####[facility] ([facility])[address] [place] [address] Chloride [Moles/Vol] 101 mmol/L Normal 98-107 [facility] Comment on above: Performed By: #### L [id number] ####[facility] ([facility])[address] [place] [address] CO2 [Moles/Vol] 24 mmol/L Normal 21-31 [facility] Comment on above: Performed By: #### L [id number] ####[facility] ([facility]ER)[address] [place] [address] Creatinine [Mass/Vol] 0.25 mg/dL Low 0.60-1.20 [facility] Comment on above: Performed By: #### L [id number] ####[facility] ([facility])[address] [place] [address] GLOMERULAR FILTRATION RATE ML/MIN/1.73 SQ M.PREDICTED 134.1 mL/min/1.73m*2 Normal >60.0 [facility] Comment on above: Result Comment: The [facility]???s estimated glomerular filtration rate (eGFR) will no longer include consideration of race in its calculation. The National Kidney Foundation???s eGFR Task Force developed new recommendations for the estimation of the glomerular filtration rate in the [place] They recommend immediate implementation of the new equation refit without the race variable in all laboratories because the calculation does not include race. In addition to not including race in the calculation and reporting, it included diversity in its development, and has acceptable performance characteristics and potential consequences that do not disproportionately affect any one group of individuals. Performed By: #### L [id number] ####[facility] ([facility])[address] [place] [address] Glucose [Mass/Vol] 94 mg/dL Normal 70-100 [facility] Comment on above: Performed By: #### L [id number] ####[facility] ([facility])[address] [place] [address] Potassium [Moles/Vol] 3.0 mmol/L Low 3.5-5.1 [facility] Comment on above: Performed By: #### L [id number] ####[facility] ([facility])[address] [place] [address] Sodium [Moles/Vol] 132 mmol/L Low 136-145 [facility] Comment on above: Performed By: #### L [id number] ####[facility] ([facility])[address] [place] [address] Urea nitrogen [Mass/Vol] 7 mg/dL Normal 7-25 [facility] Comment on above: Performed By: #### L [id number] ####[facility] ([facility])[address] [place] [address] UREA NITROGEN/CREATININE (MASS RATIO) IN SER/PLAS 28.0 Normal [facility] Comment on above: Performed By: #### L [id number] ####[facility] ([facility])[address] [place] [address] CBCon 04-12-2025 Erythrocyte distribution width (RBC) [Ratio] 12.4 % Normal 11.5-15.0 [facility] Comment on above: Performed By: #### L [id number] #### [facility] ([facility]) [address] [place] [address] ERYTHROCYTE MEAN CORPUSCULAR HEMOGLOBIN CONCENTRATION (G/DL) BY AUTOMATED 34.3 g/dL Normal 32.0-35.0 [facility] Comment on above: Performed By: #### L [id number] #### [facility] ([facility]) [address] [place] [address] Hematocrit (Bld) [Volume fraction] 27.1 % Low 36.0-45.0 [facility] Comment on above: Performed By: #### L [id number] #### [facility] ([facility]) [address] [place] [address] Hemoglobin (Bld) [Mass/Vol] 9.3 g/dL Low 12.0-15.0 [facility] Comment on above: Performed By: #### L [id number] #### [facility] ([facility]) [address] [place] [address] IMMATURE PLATELET FRACTION % 7.0 % High 0.8-6.3 [facility] Comment on above: Performed By: #### L [id number] #### [facility] ([facility]) [address] [place] [address] MCH (RBC) [Entitic mass] 32.2 pg Normal 27.0-33.0 [facility] Comment on above: Performed By: #### L [id number] #### [facility] ([facility]) [address] [place] [address] MCV (RBC) [Entitic vol] 93.8 fL Normal 82.0-98.0 [facility] Comment on above: Performed By: #### L [id number] #### [facility] ([facility]) [address] [place] [address] PLATELETS (10*3/UL) IN BLOOD AUTOMATED COUNT 75 10*3/uL Low 150-400 [facility] Comment on above: Performed By: #### L [id number] #### [facility] ([facility]) [address] [place] [address] RBC (Bld) [#/Vol] 2.89 10*6/uL Low 3.80-5.00 [facility] Comment on above: Performed By: #### L [id number] #### [facility] ([facility]) [address] [place] [address] WBC (Bld) [#/Vol] 5.24 10*3/uL Normal 4.00-10.60 [facility] Comment on above: Performed By: #### L [id number] #### [facility] ([facility]) [address] [place] [address] MAGNESIUMon 04-12-2025 Magnesium [Mass/Vol] 1.5 mg/dL Low 1.9-2.7 [facility] Comment on above: Performed By: #### L [id number] ####[facility] ([facility])[address] [place] [address] 30on 04-11-2025 30 The patient is Moderately Stable - Low risk of patient condition declining or worsening The patient's goals for the shift include Comfort and rest The clinical goals for the shift include VSS and safety Normal [facility] 30 The patient is Moderately Stable - Low risk of patient condition declining or worsening The patient's goals for the shift include comfort, rest, pain management The clinical goals for the shift include VSS, pain management Over the shift, the patient did not make progress toward the following goals. Barriers to progression include pancreatitis, hypokalemia, and hypomagnesemia, and prolonged QT prolongation. Recommendations to address these barriers include making changes to the treatment plan as needed. Problem: Pain - Adult Goal: Verbalizes/displays adequate comfort level or baseline comfort level Outcome: Progressing Flowsheets (Taken 04/11/2025120) Verbalizes/displays adequate comfort level or baseline comfort level: Encourage patient to monitor pain and request assistance Assess pain using appropriate pain scale Administer analgesics based on type and severity of pain and evaluate response Implement non-pharmacological measures as appropriate and evaluate response Consider cultural and social influences on pain and pain management Notify Licensed Independent Practitioner if interventions unsuccessful or patient reports new pain Problem: Safety - Adult Goal: Free from fall injury Outcome: Progressing Flowsheets (Taken 04/11/2025120) Free from fall injury: Assess patient frequently for physical needs Identify cognitive and physical deficits and behaviors that affect risk of falls Adrian fall precautions as indicated by assessment Educate patient/family on patient safety, including physical limitations Instruct patient to call for assistance with activity based on assessment Modify environment to reduce risk of injury Consider OT/PT consult to assist with strengthening/mobility Problem: Discharge Planning Goal: Discharge to home or other facility with appropriate resources Outcome: Progressing Flowsheets (Taken 04/11/2025120) Discharge to home or other facility with appropriate resources: Identify barriers to discharge with patient and caregiver Arrange for needed discharge resources and transportation as appropriate Identify discharge learning needs (meds, wound care, etc) Problem: Chronic Conditions and Co-morbidities Goal: Patient's chronic conditions and co-morbidity symptoms are monitored and maintained or improved Outcome: Progressing Flowsheets (Taken 04/11/2025120) Care Plan - Patient's Chronic Conditions and Co-Morbidity Symptoms are Monitored and Maintained or Improved: Monitor and assess patient's chronic conditions and comorbid symptoms for stability, deterioration, or improvement Collaborate with multidisciplinary team to address chronic and comorbid conditions and prevent exacerbation or deterioration Update acute care plan with appropriate goals if chronic or comorbid symptoms are exacerbated and prevent overall improvement and discharge Normal [facility] AMYLASEon 04-11-2025 Amylase [Catalytic activity/Vol] 100 U/L Normal 29-103 [facility] Comment on above: Performed By: #### L [id number] #### [facility] ([facility]) [address] [place] [address] BASIC METABOLIC PANELon 05-3 Anion gap [Moles/Vol] 11 mmol/L Normal 7-20 [facility] Comment on above: Performed By: #### L [id number] #### [facility] ([facility]) [address] [place] [address] Calcium [Mass/Vol] 8.0 mg/dL Low 8.6-10.3 [facility] Comment on above: Performed By: #### L [id number] #### [facility] ([facility]) [address] [place] [address] Chloride [Moles/Vol] 103 mmol/L Normal 98-107 [facility] Comment on above: Performed By: #### L [id number] #### [facility] ([facility]) [address] [place] [address] CO2 [Moles/Vol] 23 mmol/L Normal 21-31 [facility] Comment on above: Performed By: #### L [id number] #### [facility] ([facility]) [address] [place] [address] Creatinine [Mass/Vol] 0.26 mg/dL Low 0.60-1.20 [facility] Comment on above: Performed By: #### L [id number] #### [facility] ([facility]) [address] [place] [address] GLOMERULAR FILTRATION RATE ML/MIN/1.73 SQ M.PREDICTED 132.9 mL/min/1.73m*2 Normal >60.0 [facility] Comment on above: Result Comment: The [facility]???s estimated glomerular filtration rate (eGFR) will no longer include consideration of race in its calculation. The National Kidney Foundation???s eGFR Task Force developed new recommendations for the estimation of the glomerular filtration rate in the [place] They recommend immediate implementation of the new equation refit without the race variable in all laboratories because the calculation does not include race. In addition to not including race in the calculation and reporting, it included diversity in its development, and has acceptable performance characteristics and potential consequences that do not disproportionately affect any one group of individuals. Performed By: #### L [id number] #### [facility] ([facility]) [address] [place] [address] Glucose [Mass/Vol] 80 mg/dL Normal 70-100 [facility] Comment on above: Performed By: #### L [id number] #### [facility] ([facility]) [address] [place] [address] Potassium [Moles/Vol] 3.3 mmol/L Low 3.5-5.1 [facility] Comment on above: Performed By: #### L [id number] #### [facility] ([facility]) [address] [place] [address] Sodium [Moles/Vol] 134 mmol/L Low 136-145 [facility] Comment on above: Performed By: #### L [id number] #### [facility] ([facility]) [address] [place] [address] Urea nitrogen [Mass/Vol] 10 mg/dL Normal 7-25 [facility] Comment on above: Performed By: #### L [id number] #### [facility] ([facility]) [address] [place] [address] UREA NITROGEN/CREATININE (MASS RATIO) IN SER/PLAS 38.5 Normal [facility] Comment on above: Performed By: #### L [id number] #### [facility] ([facility]) [address] [place] [address] CBC WITH AUTO DIFFERENTIALon 04-11-2025 Erythrocyte distribution width (RBC) [Ratio] 12.6 % Normal 11.5-15.0 [facility] Comment on above: Performed By: #### L [id number] #### [facility] ([facility]) [address] [place] [address] ERYTHROCYTE MEAN CORPUSCULAR HEMOGLOBIN CONCENTRATION (G/DL) BY AUTOMATED 34.3 g/dL Normal 32.0-35.0 [facility] Comment on above: Performed By: #### L [id number] #### [facility] ([facility]) [address] [place] [address] Hematocrit (Bld) [Volume fraction] 29.7 % Low 36.0-45.0 [facility] Comment on above: Performed By: #### L [id number] #### [facility] ([facility]) [address] [place] [address] Hemoglobin (Bld) [Mass/Vol] 10.2 g/dL Low 12.0-15.0 [facility] Comment on above: Performed By: #### L [id number] #### [facility] ([facility]) [address] [place] [address] IMMATURE PLATELET FRACTION % 7.6 % High 0.8-6.3 [facility] Comment on above: Performed By: #### L [id number] #### [facility] ([facility]) [address] [place] [address] MCH (RBC) [Entitic mass] 32.6 pg Normal 27.0-33.0 [facility] Comment on above: Performed By: #### L [id number] #### [facility] ([facility]) [address] [place] [address] MCV (RBC) [Entitic vol] 94.9 fL Normal 82.0-98.0 [facility] Comment on above: Performed By: #### L [id number] #### [facility] ([facility]) [address] [place] [address] NRBC (PER 100 WBCS) BY AUTOMATED COUNT 0.0 % Normal 0 [facility] Comment on above: Performed By: #### L [id number] #### [facility] ([facility]) [address] [place] [address] PLATELETS (10*3/UL) IN BLOOD AUTOMATED COUNT 82 10*3/uL Low 150-400 [facility] Comment on above: Performed By: #### L [id number] #### [facility] ([facility]) [address] [place] [address] RBC (Bld) [#/Vol] 3.13 10*6/uL Low 3.80-5.00 [facility] Comment on above: Performed By: #### L [id number] #### [facility] ([facility]) [address] [place] [address] WBC (Bld) [#/Vol] 7.80 10*3/uL Normal 4.00-10.60 [facility] Comment on above: Performed By: #### L [id number] #### [facility] ([facility]) [address] [place] [address] HEPATIC FUNCTION PANELon Albumin [Mass/Vol] 3.7 g/dL Normal 3.5-5.7 [facility] Comment on above: Performed By: #### L [id number] #### [facility] ([facility]) [address] [place] [address] ALP [Catalytic activity/Vol] 87 U/L Normal 34-104 [facility] Comment on above: Performed By: #### L [id number] #### [facility] ([facility]) [address] [place] [address] ALT [Catalytic activity/Vol] 20 U/L Normal 7-52 [facility] Comment on above: Performed By: #### L [id number] #### [facility] ([facility]) [address] [place] [address] AST [Catalytic activity/Vol] 28 U/L Normal 13-39 [facility] Comment on above: Performed By: #### L [id number] #### [facility] ([facility]) [address] [place] [address] Bilirubin [Mass/Vol] 2.2 mg/dL High 0.3-1.0 [facility] Comment on above: Performed By: #### L [id number] #### [facility] ([facility]) [address] [place] [address] Magnesium [Mass/Vol] 0.6 mg/dL High 0-0.2 [facility] Comment on above: Performed By: #### L [id number] #### [facility] ([facility]) [address] [place] [address] Protein [Mass/Vol] 5.4 g/dL Low 6.0-8.3 [facility] Comment on above: Performed By: #### L [id number] #### [facility] ([facility]) [address] [place] [address] LIPASEon 04-11-2025 LIPASE (U/L) IN SER/PLAS 59 U/L Normal 11-82 [facility] Comment on above: Performed By: #### L [id number] ####[facility] ([facility])[address] [place] [address] MAGNESIUMon 04-11-2025 Magnesium [Mass/Vol] 1.9 mg/dL Normal 1.9-2.7 [facility] Comment on above: Performed By: #### L [id number] #### [facility] ([facility]) [address] [place] [address] MANUAL DIFFERENTIALon 2024 BASOPHILS (10*3/UL) IN BLOOD BY CALCULATION 0.01 10*3/uL Normal 0.00-0.20 [facility] Comment on above: Performed By: #### L [id number] ####[facility] ([facility])[address] [place] [address] BASOPHILS/100 LEUKOCYTES IN BLOOD BY AUTOMATED COUNT 0.1 % Normal 0.0-1.0 [facility] Comment on above: Performed By: #### L [id number] ####[facility] ([facility])[address] [place] [address] EOSINOPHILS (10*3/UL) IN BLOOD BY CALCULATION 0.00 10*3/uL Normal 0.00-0.50 [facility] Comment on above: Performed By: #### L [id number] ####[facility] ([facility])[address] [place] [address] EOSINOPHILS/100 LEUKOCYTES IN BLOOD BY AUTOMATED COUNT 0.0 % Normal 0.0-6.0 [facility] Comment on above: Performed By: #### L [id number] ####[facility] ([facility])[address] [place] [address] IMMATURE GRANULOCYTES (10*3/UL) IN BLOOD BY CALCULATION 0.02 10*3/uL Normal 0.00-0.20 [facility] Comment on above: Performed By: #### L [id number] ####[facility] ([facility])[address] [place] [address] IMMATURE GRANULOCYTES/100 LEUKOCYTES IN BLOOD BY AUTOMATED COUNT 0.3 % Normal 0.0-1.0 [facility] Comment on above: Performed By: #### L [id number] ####[facility] ([facility])[address] [place] [address] LYMPHOCYTES (10*3/UL) IN BLOOD BY CALCULATION 0.26 10*3/uL Low 1.20-4.00 [facility] Comment on above: Performed By: #### L [id number] ####[facility] ([facility])[address] [place] [address] LYMPHOCYTES/100 LEUKOCYTES IN BLOOD BY AUTOMATED COUNT 3.3 % Low 20.0-45.0 [facility] Comment on above: Performed By: #### L [id number] ####[facility] ([facility])[address] [place] [address] MONOCYTES (10*3/UL) IN BLOOD BY CALCUATION 0.39 10*3/uL Normal 0.10-1.00 [facility] Comment on above: Performed By: #### L [id number] ####[facility] ([facility])[address] [place] [address] MONOCYTES/100 LEUKOCYTES IN BLOOD BY AUTOMATED COUNT 5.0 % Normal 5.0-12.0 [facility] Comment on above: Performed By: #### L [id number] ####[facility] ([facility])[address] [place] [address] NEUTROPHILS (10*3/UL) IN BLOOD BY CALCULATION 7.1 10*3/uL Normal 1.6-7.6 [facility] Comment on above: Performed By: #### L [id number] ####[facility] ([facility])[address] [place] [address] NEUTROPHILS/100 LEUKOCYTES IN BLOOD BY AUTOMATED COUNT 91.3 % High 40.0-72.0 [facility] Comment on above: Performed By: #### L [id number] ####[facility] ([facility])[address] [place] [address] PROTIME-INRon 04-11-2025 INR IN PPP BY COAGULATION ASSAY 1.25 High 0.90-1.10 [facility] Comment on above: Result Comment: ACCC P RECOMMENDED INR FOR WARFARIN THERAPY CONDITION INR PROPHYLAXIS OF VENOUS THROMBOSIS 2-3 (HIGH-RISK SURGERY) TREATMENT OF VENOUS THROMBOSIS 2-3 TREATMENT OF PULMONARY EMBOLISM 2-3 PREVENTION OF SYSTEMIC EMBOLISM: 2-3 ACUTE MYOCARDIAL INFARCTION TISSUE HEART VALVES VALVULAR HEART DISEASE ATRIAL FIBRILLATION RECURRENT SYSTEMIC EMBOLISM MECHANICAL HEART VALVE 2.5-3.5 FROM: ORAL ANTICOAGULANTS. MECHANISM OF ACTION, CLINICAL EFFECTIVENESS, AND OPTIMAL THERAPEUTIC RANGE. CHEST 1995;108:231S-246S. Performed By: #### L [id number] ####[facility] ([facility])[address] [place] [address] PROTHROMBIN TIME (PT) IN PPP BY COAGULATION ASSAY 15.6 Seconds High 12.3-14.8 [facility] Comment on above: Performed By: #### L [id number] ####[facility] ([facility])[address] [place] [address] 30on 04-10-2025 30 Daily Case Managemen t Update Barriers to Discharge: Pancreatitis, hypokalemia, hypomagnesemia QT prolongation on ECG. Clear liquid diet started. IV fluids continue. GI continues to follow closely. Diet: Dietary Orders (From admission, onward) Start Ordered 04/09/25 1014 Clear Liquid Diet Diet effective now Question: Room Service? Answer: No 04/09/25 1013 Physician Expected Discharge Date: 04/13/2025 Discharge Delays: PT Six Click Score: OT Six Click Score: PT Recommendations: OT Recommendations: New Consults: Consult Orders (From admission, onward) Start Ordered 04/10/25 0905 Inpatient consult to Gastroenterology Once Specialty: Gastroenterology Provider: (Not yet assigned) Question Answer Comment [facility] GASTROENTEROLOGY TEAM Reason for Consult? Post ERCP pancreatitis Level of Consultation Consultation and Management 04/10/25 0904 Normal [facility] 30 The patient is Moderately Stable - Low risk of patient condition declining or worsening The patient's goals for the shift include comfort The clinical goals for the shift include vss Over the shift, the patient did make progress toward the following goals. Problem: Pain - Adult Goal: Verbalizes/displays adequate comfort level or baseline comfort level Outcome: Progressing Problem: Safety - Adult Goal: Free from fall injury Outcome: Progressing Problem: Discharge Planning Goal: Discharge to home or other facility with appropriate resources Outcome: Progressing Problem: Chronic Conditions and Co-morbidities Goal: Patient's chronic conditions and co-morbidity symptoms are monitored and maintained or improved Outcome: Progressing Normal [facility] 30 The patient is Moderately Stable - Low risk of patient condition declining or worsening The patient's goals for the shift include comfort,rest The clinical goals for the shift include VSS, pain management Over the shift, the patient did not make progress toward the following goals. Barriers to progression include pancreatitis. Recommendations to address these barriers include making changes to the treatment plan as needed. Problem: Pain - Adult Goal: Verbalizes/displays adequate comfort level or baseline comfort level Outcome: Progressing Flowsheets (Taken 04/10/2025 0556) Verbalizes/displays adequate comfort level or baseline comfort level: Encourage patient to monitor pain and request assistance Assess pain using appropriate pain scale Administer analgesics based on type and severity of pain and evaluate response Implement non-pharmacological measures as appropriate and evaluate response Consider cultural and social influences on pain and pain management Notify Licensed Independent Practitioner if interventions unsuccessful or patient reports new pain Problem: Safety - Adult Goal: Free from fall injury Outcome: Progressing Flowsheets (Taken 04/10/2025 0556) Free from fall injury: Assess patient frequently for physical needs Identify cognitive and physical deficits and behaviors that affect risk of falls Adrian fall precautions as indicated by assessment Educate patient/family on patient safety, including physical limitations Instruct patient to call for assistance with activity based on assessment Modify environment to reduce risk of injury Consider OT/PT consult to assist with strengthening/mobility Problem: Discharge Planning Goal: Discharge to home or other facility with appropriate resources Outcome: Progressing Flowsheets (Taken 04/10/2025555) Discharge to home or other facility with appropriate resources: Identify barriers to discharge with patient and caregiver Arrange for needed discharge resources and transportation as appropriate Identify discharge learning needs (meds, wound care, etc) Problem: Chronic Conditions and Co-morbidities Goal: Patient's chronic conditions and co-morbidity symptoms are monitored and maintained or improved Outcome: Progressing Flowsheets (Taken 04/10/2025555) Care Plan - Patient's Chronic Conditions and Co-Morbidity Symptoms are Monitored and Maintained or Improved: Monitor and assess patient's chronic conditions and comorbid symptoms for stability, deterioration, or improvement Collaborate with multidisciplinary team to address chronic and comorbid conditions and prevent exacerbation or deterioration Update acute care plan with appropriate goals if chronic or comorbid symptoms are exacerbated and prevent overall improvement and discharge Normal [facility] AMYLASEon 04-10-2025 Amylase [Catalytic activity/Vol] 451 U/L High 29-103 [facility] Comment on above: Performed By: #### L [id number] #### [facility] ([facility]) [address] [place] [address] BASIC METABOLIC PANELon 03-14 Anion gap [Moles/Vol] 13 mmol/L Normal 7-20 [facility] Comment on above: Performed By: #### L [id number] #### [facility] ([facility]) [address] [place] [address] Calcium [Mass/Vol] 7.9 mg/dL Low 8.6-10.3 [facility] Comment on above: Performed By: #### L [id number] #### [facility] ([facility]) [address] [place] [address] Chloride [Moles/Vol] 104 mmol/L Normal 98-107 [facility] Comment on above: Performed By: #### L [id number] #### [facility] ([facility]) [address] [place] [address] CO2 [Moles/Vol] 22 mmol/L Normal 21-31 [facility] Comment on above: Performed By: #### L [id number] #### [facility] ([facility]) [address] [place] [address] Creatinine [Mass/Vol] 0.29 mg/dL Low 0.60-1.20 [facility] Comment on above: Performed By: #### L [id number] #### [facility] ([facility]) [address] [place] [address] GLOMERULAR FILTRATION RATE ML/MIN/1.73 SQ M.PREDICTED 129.4 mL/min/1.73m*2 Normal >60.0 [facility] Comment on above: Result Comment: The [facility]???s estimated glomerular filtration rate (eGFR) will no longer include consideration of race in its calculation. The National Kidney Foundation???s eGFR Task Force developed new recommendations for the estimation of the glomerular filtration rate in the [place] They recommend immediate implementation of the new equation refit without the race variable in all laboratories because the calculation does not include race. In addition to not including race in the calculation and reporting, it included diversity in its development, and has acceptable performance characteristics and potential consequences that do not disproportionately affect any one group of individuals. Performed By: #### L [id number] #### [facility] ([facility]) [address] [place] [address] Glucose [Mass/Vol] 99 mg/dL Normal 70-100 [facility] Comment on above: Performed By: #### L [id number] #### [facility] ([facility]) [address] [place] [address] Potassium [Moles/Vol] 3.0 mmol/L Low 3.5-5.1 [facility] Comment on above: Performed By: #### L [id number] #### [facility] ([facility]) [address] [place] [address] Sodium [Moles/Vol] 136 mmol/L Normal 136-145 [facility] Comment on above: Performed By: #### L [id number] #### [facility] ([facility]) [address] [place] [address] Urea nitrogen [Mass/Vol] 17 mg/dL Normal 7-25 [facility] Comment on above: Performed By: #### L [id number] #### [facility] ([facility]) [address] [place] [address] UREA NITROGEN/CREATININE (MASS RATIO) IN SER/PLAS 58.6 Normal [facility] Comment on above: Performed By: #### L [id number] #### [facility] ([facility]) [address] [place] [address] CBC WITH AUTO DIFFERENTIALon 04-10-2025 Basophils (Bld) [#/Vol] 0.01 10*3/uL Normal 0.00-0.20 [facility] Comment on above: Performed By: #### L [id number] #### [facility] ([facility]) [address] [place] [address] Basophils/100 WBC (Bld) 0.1 % Normal 0.0-1.0 [facility] Comment on above: Performed By: #### L [id number] #### [facility] ([facility]) [address] [place] [address] Eosinophils (Bld) [#/Vol] 0.00 10*3/uL Normal 0.00-0.50 [facility] Comment on above: Performed By: #### L [id number] #### [facility] ([facility]) [address] [place] [address] Eosinophils/100 WBC (Bld) 0.0 % Normal 0.0-6.0 [facility] Comment on above: Performed By: #### L [id number] #### [facility] ([facility]) [address] [place] [address] Erythrocyte distribution width (RBC) [Ratio] 12.6 % Normal 11.5-15.0 [facility] Comment on above: Performed By: #### L [id number] #### [facility] ([facility]) [address] [place] [address] ERYTHROCYTE MEAN CORPUSCULAR HEMOGLOBIN CONCENTRATION (G/DL) BY AUTOMATED 34.1 g/dL Normal 32.0-35.0 [facility] Comment on above: Performed By: #### L [id number] #### [facility] ([facility]) [address] [place] [address] Hematocrit (Bld) [Volume fraction] 35.5 % Low 36.0-45.0 [facility] Comment on above: Performed By: #### L [id number] #### [facility] ([facility]) [address] [place] [address] Hemoglobin (Bld) [Mass/Vol] 12.1 g/dL Normal 12.0-15.0 [facility] Comment on above: Performed By: #### L [id number] #### [facility] ([facility]) [address] [place] [address] Immature granulocytes (Bld) [#/Vol] 0.05 10*3/uL Normal 0.00-0.20 [facility] Comment on above: Performed By: #### L [id number] #### [facility] ([facility]) [address] [address] Immature granulocytes/100 WBC (Bld) 0.3 % Normal 0.0-1.0 [facility] Comment on above: Performed By: #### L [id number] #### [facility] ([facility]) [address] [place] [address] Lymphocytes (Bld) [#/Vol] 0.69 10*3/uL Low 1.20-4.00 [facility] Comment on above: Performed By: #### L [id number] #### [facility] ([facility]) [address] [facility] [place] [address] Lymphocytes/100 WBC (Bld) 4.8 % Low 20.0-45.0 [facility] Comment on above: Performed By: #### L [id number] #### [facility] ([facility]) [address] [place] [address] MCH (RBC) [Entitic mass] 32.4 pg Normal 27.0-33.0 [facility] Comment on above: Performed By: #### L [id number] #### [facility] ([facility]) [address] [place] [address] MCV (RBC) [Entitic vol] 95.2 fL Normal 82.0-98.0 [facility] Comment on above: Performed By: #### L [id number] #### [facility] ([facility]) [address] [place] [address] Monocytes (Bld) [#/Vol] 0.56 10*3/uL Normal 0.10-1.00 [facility] Comment on above: Performed By: #### L [id number] #### [facility] ([facility]) [address] [place] [address] Monocytes/100 WBC (Bld) 3.9 % Low 5.0-12.0 [facility] Comment on above: Performed By: #### L [id number] #### [facility] ([facility]) [address] [place] [address] Neutrophils (Bld) [#/Vol] 13.02 10*3/uL High 1.60-7.60 [facility] Comment on above: Performed By: #### L [id number] #### [facility] ([facility]) [address] [place] [address] Neutrophils/100 WBC (Bld) 90.9 % High 40.0-72.0 [facility] Comment on above: Performed By: #### L [id number] #### [facility] ([facility]) [address] [place] [address] NRBC (PER 100 WBCS) BY AUTOMATED COUNT 0.0 % Normal 0 [facility] Comment on above: Performed By: #### L [id number] #### [facility] ([facility]) [address] [place] [address] PLATELETS (10*3/UL) IN BLOOD AUTOMATED COUNT 144 10*3/uL Low 150-400 [facility] Comment on above: Performed By: #### L [id number] #### [facility] ([facility]) [address] [place] [address] RBC (Bld) [#/Vol] 3.73 10*6/uL Low 3.80-5.00 [facility] Comment on above: Performed By: #### L [id number] #### [facility] ([facility]) [address] [place] [address] WBC (Bld) [#/Vol] 14.33 10*3/uL High 4.00-10.60 [facility] Comment on above: Performed By: #### L [id number] #### [facility] ([facility]) [address] [place] [address] HEMOGLOBIN A1Con 04-10-2025 Glucose [Mass/Vol] 97 mg/dL Normal [facility] Comment on above: Performed By: #### L [id number] #### [facility] ([facility]) [address] [place] [address] HbA1c (Bld) [Mass fraction] 5.0 % Normal 4.0-6.0 [facility] Comment on above: Performed By: #### L [id number] #### [facility] ([facility]) [address] [place] [address] HEPATIC FUNCTION PANELon Albumin [Mass/Vol] 3.4 g/dL Low 3.5-5.7 [facility] Comment on above: Performed By: #### L [id number] #### [facility] ([facility]) [address] [place] [address] ALP [Catalytic activity/Vol] 104 U/L Normal 34-104 [facility] Comment on above: Performed By: #### L [id number] #### [facility] ([facility]) [address] [place] [address] ALT [Catalytic activity/Vol] 32 U/L Normal 7-52 [facility] Comment on above: Performed By: #### L [id number] #### [facility] ([facility]) [address] [place] [address] AST [Catalytic activity/Vol] 51 U/L High 13-39 [facility] Comment on above: Performed By: #### L [id number] #### [facility] ([facility]) [address] [place] [address] Bilirubin [Mass/Vol] 1.8 mg/dL High 0.3-1.0 [facility] Comment on above: Performed By: #### L [id number] #### [facility] ([facility]) [address] [place] [address] Magnesium [Mass/Vol] 0.5 mg/dL High 0-0.2 [facility] Comment on above: Performed By: #### L [id number] #### [facility] ([facility]) [address] [place] [address] Protein [Mass/Vol] 5.3 g/dL Low 6.0-8.3 [facility] Comment on above: Performed By: #### L [id number] #### [facility] ([facility]) [address] [place] [address] LIPASEon 04-10-2025 LIPASE (U/L) IN SER/PLAS 460 U/L High 11-82 [facility] Comment on above: Performed By: #### L [id number] ####[facility] ([facility])[address] [place] [address] MAGNESIUMon 04-10-2025 Magnesium [Mass/Vol] 1.6 mg/dL Low 1.9-2.7 [facility] Comment on above: Performed By: #### L [id number] #### [facility] ([facility]) [address] [place] [address] NURSNOTEon 04-10-[address] Elizondo, one t abdoul albumin order can be completed after IV electrolyte replacement has finished. Normal [facility] PROTIME-INRon 04-10-2025 INR IN PPP BY COAGULATION ASSAY 1.31 High 0.90-1.10 [facility] Comment on above: Result Comment: ACCC P RECOMMENDED INR FOR WARFARIN THERAPY CONDITION INR PROPHYLAXIS OF VENOUS THROMBOSIS 2-3 (HIGH-RISK SURGERY) TREATMENT OF VENOUS THROMBOSIS 2-3 TREATMENT OF PULMONARY EMBOLISM 2-3 PREVENTION OF SYSTEMIC EMBOLISM: 2-3 ACUTE MYOCARDIAL INFARCTION TISSUE HEART VALVES VALVULAR HEART DISEASE ATRIAL FIBRILLATION RECURRENT SYSTEMIC EMBOLISM MECHANICAL HEART VALVE 2.5-3.5 FROM: ORAL ANTICOAGULANTS. MECHANISM OF ACTION, CLINICAL EFFECTIVENESS, AND OPTIMAL THERAPEUTIC RANGE. CHEST 1995;108:[id number]. Performed By: #### L [id number] #### [facility] [address] [place] [address] PROTHROMBIN TIME (PT) IN PPP BY COAGULATION ASSAY 16.2 Seconds High 12.3-14.8 [facility] Comment on above: Performed By: #### L [id number] #### [facility] ([facility]) [address] [place] [address] TSH3 REFLEX TO FT4on 025 THYROTROPIN (MIU/L) IN SER/PLAS BY DETECTION LIMIT <= 0.05 MIU/L 2.83 mIU/L Normal 0.34-5.60 [facility] Comment on above: Performed By: #### L [id number] #### [facility] [address] [place] [address] 3004-09-2025 30 The patient is Moderately Stable - Low risk of patient condition declining or worsening The patient's goals for the shift include comfort The clinical goals for the shift include vss Over the shift, the patient did make progress toward the following goals. Problem: Pain - Adult Goal: Verbalizes/displays adequate comfort level or baseline comfort level Outcome: Progressing Problem: Safety - Adult Goal: Free from fall injury Outcome: Progressing Problem: Discharge Planning Goal: Discharge to home or other facility with appropriate resources Outcome: Progressing Problem: Chronic Conditions and Co-morbidities Goal: Patient's chronic conditions and co-morbidity symptoms are monitored and maintained or improved Outcome: Progressing Normal [facility] AMYLASEon 04-09-2025 Amylase [Catalytic activity/Vol] 1143 U/L High 29-103 [facility] Comment on above: Performed By: #### L [id number] #### [facility] ([facility]) [address] [place] [address] BILIRUBIN, DIRECTon 04-09-20 25 Magnesium [Mass/Vol] 0.3 mg/dL High 0-0.2 [facility] Comment on above: Performed By: #### L [id number] #### [facility] ([facility]) [address] [place] [address] CBC WITH AUTO DIFFERENTIALon 04-09-2025 Basophils (Bld) [#/Vol] 0.04 10*3/uL Normal 0.00-0.20 [facility] Comment on above: Performed By: #### L [id number] ####[facility] ([facility])[address] [place] [address] Basophils/100 WBC (Bld) 0.2 % Normal 0.0-1.0 [facility] Comment on above: Performed By: #### L [id number] ####[facility] ([facility])[address] [place] [address] Eosinophils (Bld) [#/Vol] 0.01 10*3/uL Normal 0.00-0.50 [facility] Comment on above: Performed By: #### L [id number] ####[facility] ([facility])[address] [place] [address] Eosinophils/100 WBC (Bld) 0.0 % Normal 0.0-6.0 [facility] Comment on above: Performed By: #### L [id number] ####[facility] ([facility])[address] [place] [address] Erythrocyte distribution width (RBC) [Ratio] 12.2 % Normal 11.5-15.0 [facility] Comment on above: Performed By: #### L [id number] ####[facility] ([facility]ER)[address] [place] [address] ERYTHROCYTE MEAN CORPUSCULAR HEMOGLOBIN CONCENTRATION (G/DL) BY AUTOMATED 34.2 g/dL Normal 32.0-35.0 [facility] Comment on above: Performed By: #### L [id number] ####[facility] ([facility])[address] [place] [address] Hematocrit (Bld) [Volume fraction] 43.0 % Normal 36.0-45.0 [facility] Comment on above: Performed By: #### L [id number] ####[facility] ([facility])[address] [place] [address] Hemoglobin (Bld) [Mass/Vol] 14.7 g/dL Normal 12.0-15.0 [facility] Comment on above: Performed By: #### L [id number] ####[facility] ([facility])[address] [place] [address] Immature granulocytes (Bld) [#/Vol] 0.11 10*3/uL Normal 0.00-0.20 [facility] Comment on above: Performed By: #### L [id number] ####[facility] ([facility])[address] [place] [address] Immature granulocytes/100 WBC (Bld) 0.5 % Normal 0.0-1.0 [facility] Comment on above: Performed By: #### L [id number] ####[facility] ([facility])[address] [place] [address] Lymphocytes (Bld) [#/Vol] 0.88 10*3/uL Low 1.20-4.00 [facility] Comment on above: Performed By: #### L [id number] ####[facility] ([facility])[address] [place] [address] Lymphocytes/100 WBC (Bld) 3.9 % Low 20.0-45.0 [facility] Comment on above: Performed By: #### L [id number] ####[facility] ([facility])[address] [place] [address] MCH (RBC) [Entitic mass] 32.1 pg Normal 27.0-33.0 [facility] Comment on above: Performed By: #### L [id number] ####[facility] ([facility])[address] [place] [address] MCV (RBC) [Entitic vol] 93.9 fL Normal 82.0-98.0 [facility] Comment on above: Performed By: #### L [id number] ####[facility] ([facility])[address] [place] [address] Monocytes (Bld) [#/Vol] 0.80 10*3/uL Normal 0.10-1.00 [facility] Comment on above: Performed By: #### L [id number] ####[facility] ([facility])[address] [place] [address] Monocytes/100 WBC (Bld) 3.5 % Low 5.0-12.0 [facility] Comment on above: Performed By: #### L [id number] ####[facility] ([facility])[address] [place] [address] Neutrophils (Bld) [#/Vol] 20.89 10*3/uL High 1.60-7.60 [facility] Comment on above: Performed By: #### L [id number] ####[facility] ([facility])[address] [place] [address] Neutrophils/100 WBC (Bld) 91.9 % High 40.0-72.0 [facility] Comment on above: Performed By: #### L [id number] ####[facility] ([facility]ER)[address] [place] [address] NRBC (PER 100 WBCS) BY AUTOMATED COUNT 0.0 % Normal 0 [facility] Comment on above: Performed By: #### L [id number] ####[facility] ([facility])[address] [place] [address] PLATELETS (10*3/UL) IN BLOOD AUTOMATED COUNT 225 10*3/uL Normal 150-400 [facility] Comment on above: Performed By: #### L [id number] ####[facility] ([facility])[address] [place] [address] RBC (Bld) [#/Vol] 4.58 10*6/uL Normal 3.80-5.00 [facility] Comment on above: Performed By: #### L [id number] ####[facility] ([facility])[address] [place] [address] WBC (Bld) [#/Vol] 22.73 10*3/uL High 4.00-10.60 [facility] Comment on above: Performed By: #### L [id number] ####[facility] ([facility])[address] [place] [address] COMPREHENSIVE METABOLIC PANE Bernardo 04-09-2025 Albumin [Mass/Vol] 4.0 g/dL Normal 3.5-5.7 [facility] Comment on above: Performed By: #### L [id number] ####[facility] ([facility])[address] [place] [address] ALP [Catalytic activity/Vol] 71 U/L Normal 34-104 [facility] Comment on above: Performed By: #### L [id number] ####[facility] ([facility])[address] [place] [address] ALT [Catalytic activity/Vol] 8 U/L Normal 7-52 [facility] Comment on above: Performed By: #### L [id number] ####[facility] ([facility])[address] [place] [address] Anion gap [Moles/Vol] 12 mmol/L Normal 7-20 [facility] Comment on above: Performed By: #### L [id number] ####[facility] ([facility])[address] [place] [address] AST [Catalytic activity/Vol] 16 U/L Normal 13-39 [facility] Comment on above: Performed By: #### L [id number] ####[facility] ([facility])[address] [place] [address] Bilirubin [Mass/Vol] 1.6 mg/dL High 0.3-1.0 [facility] Comment on above: Performed By: #### L [id number] ####[facility] ([facility])[address] [place] [address] Calcium [Mass/Vol] 8.5 mg/dL Low 8.6-10.3 [facility] Comment on above: Performed By: #### L [id number] ####[facility] ([facility])[address] [place] [address] Chloride [Moles/Vol] 101 mmol/L Normal 98-107 [facility] Comment on above: Performed By: #### L [id number] ####[facility] ([facility])[address] [place] [address] CO2 [Moles/Vol] 27 mmol/L Normal 21-31 [facility] Comment on above: Performed By: #### L [id number] ####[facility] ([facility])[address] [place] [address] Creatinine [Mass/Vol] 0.36 mg/dL Low 0.60-1.20 [facility] Comment on above: Performed By: #### L [id number] ####[facility] ([facility])[address] [place] [address] GLOMERULAR FILTRATION RATE ML/MIN/1.73 SQ M.PREDICTED 122.8 mL/min/1.73m*2 Normal >60.0 [facility] Comment on above: Result Comment: The [facility]???s estimated glomerular filtration rate (eGFR) will no longer include consideration of race in its calculation. The National Kid[employer] Foundation???s eGFR Task Force developed new recommendations for the estimation of the glomerular filtration rate in the [place] They recommend immediate implementation of the new equation refit without the race variable in all laboratories because the calculation does not include race. In addition to not including race in the calculation and reporting, it included diversity in its development, and has acceptable performance characteristics and potential consequences that do not disproportionately affect any one group of individuals. Performed By: #### L [id number] ####[facility] ([facility])[address] [place] [address] Glucose [Mass/Vol] 142 mg/dL High 70-100 [facility] Comment on above: Performed By: #### L [id number] ####[facility] ([facility])[address] [place] [address] Potassium [Moles/Vol] 2.9 mmol/L Invalid Interpretation Code 3.5-5.1 [facility] Comment on above: Performed By: #### L [id number] ####[facility] ([facility])[address] [place] [address] Protein [Mass/Vol] 6.1 g/dL Normal 6.0-8.3 [facility] Comment on above: Performed By: #### L [id number] ####[facility] ([facility])[address] [place] [address] Sodium [Moles/Vol] 137 mmol/L Normal 136-145 [facility] Comment on above: Performed By: #### L [id number] ####[facility] ([facility])[address] [place] [address] Urea nitrogen [Mass/Vol] 18 mg/dL Normal 7-25 [facility] Comment on above: Performed By: #### L [id number] ####[facility] ([facility])[address] [place] [address] UREA NITROGEN/CREATININE (MASS RATIO) IN SER/PLAS 50.0 Normal [facility] Comment on above: Performed By: #### L [id number] ####[facility] ([facility])[address] [place] [address] CONSULTon 04-09-2025 CONSULT ---- -------- Attestation signed by Roscoe Be MD at 04/09/2025 6:21 PM The patient was seen and examined. Agree with assessment and plan. Post ERCP acute pancreatitis. The patient had diffusely dilated common bile duct with low-grade distal common bile duct stricture, status post sphincterotomy and biliary and pancreatic stents placement. Plan: IV hydration, analgesics, keep the patient n.p.o., follow-up labs eluding CBC, CMP, and pancreatic enzymes. Follow-up biopsy of the distal common bile duct stricture. Further plan depends upon patient's clinical condition. -------- Initial Gastroenterology/Hepatol ogy Consultation Note IDENTIFYING DATA PATIENT: Kati Thorne ADMIT DATE: 04/09/2025 TIME OF EVALUATION: 04/09/2025 10:15 AM Reason for Consult: abdominal pain post ercp pancreatitis Admitting Physician: Asmita Palomino MD HISTORY OF PRESENT ILLNESS Kati Thorne is a 49 y.o. female with a past medical history significant for COPD, GERD, IBS, hypothyroidism, asthma, depression, anxiety, PTSD, osteoarthritis, and remote cholecystectomy presented with persistent postprandial epigastric abdominal pain radiating to the back, associated with weight loss (~10 lbs over 2 months), nausea, vomiting, and constipation. The Gastroenterology team was consulted due to recent ERCP-related complications and concern for post-ERCP pancreatitis. She underwent ERCP on 04/08/2025 with findings of diffusely dilated CBD (up to 15 mm) and low-grade distal CBD stricture; biliary sphincterotomy and balloon dilation were performed, biopsies obtained, and a 10 Fr x 9 cm biliary stent placed. Additionally, a slightly prominent pancreatic duct was noted without stricture; pancreatic sphincterotomy was performed and a 5 Fr x 11 cm pancreatic stent was placed. No choledocholithiasis was seen, but biliary sludge was removed. She tolerated the procedure well and was discharged same day. However, she presented the following day with worsening continuous sharp upper abdominal pain exacerbated by oral intake, associated with nausea, vomiting, and absence of bowel movement for 3 days, raising concern for acute pancreatitis. Imaging confirmed acute pancreatitis without necrosis, likely post-ERCP in origin. Labs on admission were notable for leukocytosis (WBC 22.73, ANC 20.89), lipase markedly elevated at 2,510 U/L, amylase 1,143 U/L, with normal LFTs (ALT 8, AST 16, ALP 71, TBili 1.6), and creatinine 0.36. She also had elevated troponin (peaked at 221.5 ng/L), likely demand ischemia, with EKG showing prolonged QTc (505 ms), limiting antiemetic choices. Pain and nausea are managed conservatively with NPO status, IV hydration, and Tigan. Vitals show hypertension (160/107), normal temp, and HR 98. Physical exam revealed dry mucosa and epigastric tenderness without rebound or guarding. At the time of evaluation, the patient was alert, oriented, hemodynamically stable, and able to answer questions appropriately, providing a detailed and coherent history. GI HISTORY SUMMARY TABLE Last EGD Last colonoscopy Primary GI physician PAST MEDICAL, SURGICAL, FAMILY, and SOCIAL HISTORY Past Medical History: Past Medical History: Diagnosis Date Anxiety Arthritis Asthma COPD (chronic obstructive pulmonary disease) ([facility]) Depression GERD (gastroesophageal reflux disease) Hypothyroidism Irritable bowel syndrome Osteoarthritis PTSD (post-traumatic stress disorder) Past Surgical History: Past Surgical History: Procedure Laterality Date AMPUTATION FINGER APPENDECTOMY CHOLECYSTECTOMY HYSTERECTOMY PELVIC LAPAROSCOPY MULTIPLE TONSILLECTOMY Family History: No family history on file. Social History: Social History Tobacco Use Smoking status: Every Day Current packs/day: 1.00 Average packs/day: 1 pack/day for 15.0 years (15.0 ttl pk-yrs) Types: Cigarettes Smokeless tobacco: Never Vaping Use Vaping status: Never Used Substance Use Topics Alcohol use: Not Currently Drug use: Yes Types: Marijuana Allergies: No Known Allergies MEDICATIONS Home Medications: Prior to Admission medications Medication Sig Start Date End Date Taking? Authorizing Provider albuterol 90 mcg/actuation inhaler Inhale 2 puffs in the morning, afternoon, and at bedtime. Historical Provider, gabapentin (Neurontin) 300 mg capsule Take 1 capsule by mouth if needed in the morning and at bedtime for pain. 01/01/25 04/09/25 Historical Provider, levothyroxine (Synthroid, Levoxyl) 25 mcg tablet Take 25 mcg by mouth in the morning. 04/09/25 Historical Provider, metoprolol tartrate (Lopressor) 25 mg tablet Take 1 tablet by mouth Twice daily at 6am and 6pm. 07/11/24 04/09/25 Historical Provider, pantoprazole (ProtoNix) 40 mg EC tablet Take 1 ta (more content not included)... Normal [facility] HEPATIC FUNCTION PANELon Albumin [Mass/Vol] 3.9 g/dL Normal 3.5-5.7 [facility] Comment on above: Performed By: #### L [id number] ####[facility] ([facility])[address] [place] [address] ALP [Catalytic activity/Vol] 71 U/L Normal 34-104 [facility] Comment on above: Performed By: #### L [id number] ####[facility] ([facility])[address] [place] [address] ALT [Catalytic activity/Vol] 8 U/L Normal 7-52 [facility] Comment on above: Performed By: #### L [id number] ####[facility] ([facility]ER)[address] [place] [address] AST [Catalytic activity/Vol] 15 U/L Normal 13-39 [facility] Comment on above: Performed By: #### L [id number] ####[facility] (BE[facility]ER)[address] [place] [address] Bilirubin [Mass/Vol] 1.7 mg/dL High 0.3-1.0 [facility] Comment on above: Performed By: #### L [id number] ####[facility] (BEAKER)[address] [place] [address] Magnesium [Mass/Vol] 0.3 mg/dL High 0-0.2 [facility] Comment on above: Performed By: #### L [id number] ####[facility] ([facility])[address] [place] [address] Protein [Mass/Vol] 6.3 g/dL Normal 6.0-8.3 [facility] Comment on above: Performed By: #### L [id number] ####[facility] ([facility])[address] [place] [address] HIGH SENSITIVITY TROPONIN Io n 04-09-2025 HS TROPONIN I (NG/L) 81 ng/L Critically high <15 [facility] Comment on above: Performed By: #### L [id number] #### [facility] ([facility]) [address] [place] [address] HS TROPONIN I (NG/L) 84 ng/L Critically high <15 [facility] Comment on above: Performed By: #### L [id number] #### [facility] ([facility]) [address] [place] [address] HS TROPONIN I (NG/L) 102 ng/L Critically high <15 [facility] Comment on above: Performed By: #### L [id number] #### [facility] ([facility]) [address] [place] [address] LIPASEon 04-09-2025 LIPASE (U/L) IN SER/PLAS 2510 U/L High 11-82 [facility] Comment on above: Performed By: #### L [id number] #### [facility] ([facility]) [address] [place] [address] PROTIME-INRon 04-09-2025 INR IN PPP BY COAGULATION ASSAY 1.11 High 0.90-1.10 [facility] Comment on above: Result Comment: ACCC P RECOMMENDED INR FOR WARFARIN THERAPY CONDITION INR PROPHYLAXIS OF VENOUS THROMBOSIS 2-3 (HIGH-RISK SURGERY) TREATMENT OF VENOUS THROMBOSIS 2-3 TREATMENT OF PULMONARY EMBOLISM 2-3 PREVENTION OF SYSTEMIC EMBOLISM: 2-3 ACUTE MYOCARDIAL INFARCTION TISSUE HEART VALVES VALVULAR HEART DISEASE ATRIAL FIBRILLATION RECURRENT SYSTEMIC EMBOLISM MECHANICAL HEART VALVE 2.5-3.5 FROM: ORAL ANTICOAGULANTS. MECHANISM OF ACTION, CLINICAL EFFECTIVENESS, AND OPTIMAL THERAPEUTIC RANGE. CHEST 1995;108:231S-246S. Performed By: #### L [id number] ####[facility] ([facility])[address] [place] [address] PROTHROMBIN TIME (PT) IN PPP BY COAGULATION ASSAY 14.3 Seconds Normal 12.3-14.8 [facility] Comment on above: Performed By: #### L [id number] ####[facility] ([facility])[address] [place] [address] HISTOLOGY - TISSUE EXAMon LAB AP CASE REPORT Normal [facility] Comment on above: Result Comment: Surg ical Pathology Case: [id number] Authorizing Provider: Roscoe Be MD Collected: 04/08/2025 0952 Ordering Location: [facility] Received: 04/08/2025 [facility] Endoscopy Pathologist: Jas Barclay MD Specimen: Common Bile Duct, CBD bx r/o malignancy Performed By: #### L [id number] #### [facility] ([facility]) [address] [place] [address] LAB AP CLINICAL INFORMATION Order Diagnoses Normal [facility] Comment on above: Result Comment: K80. 50 - Recurrent biliary colic [ICD-10-CM] Performed By: #### L [id number] #### [facility] ([facility]) [address] [place] [address] LAB AP GROSS DESCRIPTION Normal [facility] Comment on above: Result Comment: Radha aleln Bile Duct. Received in formalin, labeled Kati Thorne CBD BX R/o malignancy, is a piece of miller translucent feathery mucosa with erythema measuring 0.3 x 0.1 by less than 0.1 cm. The specimen is submitted entirely in 1 cassette. Sven Richmond, Student Fellow Performed By: #### L [id number] #### [facility] ([facility]) [address] [place] [address] LAB AP MICROSCOPIC DESCRIPTION Microscopic examination performed. [facility] Comment on above: Performed By: #### L [id number] #### [facility] ([facility]) [address] [place] [address] LAB AP REPORT FINAL DIAGNOSIS NARRATIVE [facility] Comment on above: Result Comment: Radha allen bile duct, biopsy: - Fibrous tissue with small strips of benign intestinal and biliary epithelium. - No malignancy identified. Performed By: #### L [id number] #### [facility] ([facility]) [address] [place] [address] HPon 04-08-2025 H&P reviewed. The patient was examined and there are no changes to the H&P. Kati Thorne is a 49 y.o. female who is presenting with a complaint of intermittent postprandial epigastric abdominal pain that radiates to the back. Patient reports 10 pound weight loss over the last 2 months. She had history of gallstones and she is status postcholecystectomy back in the . She smokes 1 pack of cigarettes a day but denies significant alcohol use. She had a CT scan of abdomen that revealed dilated common bile duct up to 1.6 cm with no choledocholithiasis or mass noted. The patient had an EUS on 03/11/2025 that revealed Diffusely dilated common bile duct up to 14.2 mm with no choledocholithiasis or pancreatic head mass noted. The major papilla was a small. The examination of the pancreas, aside from slightly prominent pancreatic duct with a few hyperechoic foci and hyperechoic strands noted in the pancreaticparenchyma was unremarkable. The patient is presenting for ERCP for persistent abdominal pain. Normal [facility] POCT GLUCOSE METER UNSOLICIT ED RESULTSon 04-08-2025 Glucose [Mass/Vol] 105 mg/dL Normal 70-105 [facility] Comment on above: Order Comment: Waive d Testing in the ED is performed under the ED CLIA certificate #[id number]. Result Comment: jhag eman Performed By: #### L [id number] #### [facility] ([facility]) [address] [place] [address] Prep for Procedureon 025 Prep for Procedure [id number] SebastianLisa A 1975 Date Provider Department Center 04/08/2025 [facility]COE [facility] No family history on file [facility] 36on 04-02-[address] Be - he attempted to contact patient but did not get an answer. Call placed to patient by this automotive service writer to explain recommendations. Dr. Be recommends an ERCP with sphincterotomy for further evaluation given continue biliary symptoms. Patient voiced understanding and was transferred to scheduling Normal [facility] Orders Onlyon 04-02-2025 Orders Only [id number] SebastianLisa indra A 1975 Date Provider Department Center 04/02[facility]20[facility] family history on file Normal [facility] Telephoneon 03-30-2025 Telephone [id number] Lisa Thorne A 1975 Date Provider Department Center 03/30/2025 RAN [facility] No family history on file Reason for Visit and Comments: Abdominal Pain [[id number]] Normal [facility] Telephoneon 03-18-2025 Telephone [id number] Sebastian,Lisa indra A 1975 Date Provider Department Center 03/18/2025 JUANA JONES [facility] No family history on file [facility] HISTOLOGY - TISSUE EXAMon LAB AP ADDENDUM 1 Normal [facility] Comment on above: Result Comment: Immu nostain for Helicobacter pylori, performed on part A with appropriately reactive control, is negative. Addendum electronically signed by Alicja Gonzalez MD on 03/18/2025 at 3:47 PM Performed By: #### L [id number] ####[facility] ([facility])[address] [place] [address] LAB AP ASR DISCLAIMER The interpretation of this case included the use of immunohistochemistry or special stains. These tests have not been cleared or approved by the U.S. Food and Drug Administration. The FDA has determined that such clearance or approval is not necessary. These tests are used for clinical purposes and should not be regarded as investigational or for research. This laboratory is certified to perform high complexity testing under the Clinical Laboratory Improvement Amendments of 1998. [facility] Comment on above: Performed By: #### L [id number] ####[facility] ([facility])[address] [place] [address] LAB AP CASE REPORT [facility] Comment on above: Result Comment: Surg ical Pathology Case: [id number] Authorizing Provider: Roscoe Be MD Collected: 03/11/2025 0949 Ordering Location: [facility] Received: 03/11/2025 [facility] Endoscopy Pathologist: Alicja Gonzalez MD Specimens: A) - Gastric, r/o h.pylori B) - Gastroesophageal Junction, r/o barretts C) - Small Intestine, Duodenum, r/o celiacs Performed By: #### L [id number] ####[facility] ([facility])[address] [place] [address] LAB AP CLINICAL INFORMATION Order Diagnoses [facility] Comment on above: Result Comment: K83. 8 - Dilated cbd, acquired [ICD-10-CM] Performed By: #### L [id number] ####[facility] ([facility])[address] [place] [address] LAB AP GROSS DESCRIPTION A. Gastric. [facility] Comment on above: Result Comment: The specimen is received in formalin labeled Kati Sebastian and gastric, r/o H. pylori. It consists of 5 bits of joy-pink mucosal tissue ranging from 0.2 cm to 0.5 cm in greatest dimension. The specimen is submitted in toto in 1 cassette. Gisell Mendoza, Pathologists' Safety Risk Lead student Pilar Han, Pathologists' Safety Risk Lead B. Gastroesophageal Junction. The specimen is received in formalin labeled Kati Sebastian and GE junction, r/o barretts. It consists of 2 bits and strips of joy-white, focally erythematous mucosal tissue, 0.6 cm and 0.1 cm in greatest dimension. The specimen is submitted in toto in 1 cassette. Gisell Mendoza, Pathologists' Safety Risk Lead student Pilar Han, Pathologists' Safety Risk Lead C. Small Intestine, Duodenum. The specimen is received in formalin labeled Kati Sebastian and duodenum, r/o celiacs. It consists of 6 bits and strips of joy-pink villous mucosal tissue ranging from 0.1 cm to 0.6 cm in greatest dimension. The specimen is submitted in toto in 1 cassette. Gisell Mendoza, Pathologists' Safety Risk Lead student Pilar Han, Pathologists' Safety Risk Lead Performed By: #### L [id number] ####[facility] ([facility])[address] [place] [address] LAB AP MICROSCOPIC DESCRIPTION Microscopic examination performed. [facility] Comment on above: Performed By: #### L [id number] ####[facility] ([facility])[address] [place] [address] LAB AP REPORT FINAL DIAGNOSIS NARRATIVE [facility] Comment on above: Result Comment: A. S charbelach, biopsy: - Chronic, focally active gastritis. - No evidence of intestinal metaplasia or dysplasia. - Immunostain for Helicobacter pylori will be reported in an addendum. B. Gastroesophageal junction, biopsy: - Intestinal metaplasia in gastroesophageal junctional mucosa. - Background reflux esophagitis and chronic, focally active gastric carditis. - Negative for dysplasia. C. Small bowel, duodenum, biopsy: - Duodenal mucosa with no specific histopathologic changes. - No features of celiac disease noted. Performed By: #### L [id number] ####[facility] ([facility])[address] [place] [address] HPon 03-11-2025 HP History Of Present Illness Kati Thorne is a 49 y.o. female who is presenting with a complaint of intermittent postprandial epigastric abdominal pain that radiates to the back. Patient reports 10 pound weight loss over the last 2 months. She had history of gallstones and she is status postcholecystectomy back in the . She smokes 1 pack of cigarettes a day but denies significant alcohol use. She had a CT scan of abdomen that revealed dilated common bile duct up to 1.6 cm with no choledocholithiasis or mass noted. She is scheduled to have an upper endoscopy with endoscopic ultrasound to assess the upper GI tract and the pancreaticobiliary system. Past Medical History She has a past medical history of Anxiety, Arthritis, Asthma, Depression, GERD (gastroesophageal reflux disease), Hypothyroidism, Irritable bowel syndrome, Osteoarthritis, and PTSD (post-traumatic stress disorder). Surgical History She has a past surgical history that includes Amputation; Hysterectomy; Appendectomy; Tonsillectomy; Cholecystectomy; and Pelvic laparoscopy. Social History She reports that she has been smoking cigarettes. She has a 15 pack-year smoking history. She has never used smokeless tobacco. She reports current drug use. Drug: Marijuana. No history on file for alcohol use. Family History No family history on file. Allergies Patient has no known allergies. Medications (Not in a hospital admission) Review of Systems Constitutional: Negative. Respiratory: Negative. Cardiovascular: Negative. Gastrointestinal: Positive for abdominal pain. Genitourinary: Negative. Skin: Negative. Last Recorded Vitals Visit Vitals BP (!) 143/96 Pulse 84 Temp 36 ???C (96.8 ???F) (Tympanic) Resp 18 Ht 1.549 m (5' 1 ) Wt 46 kg (101 lb 6.6 oz) SpO2 96% BMI 19.16 kg/m??? Smoking Status Every Day BSA 1.41 m??? Physical Exam HEENT: Anicteric sclera, conjunctiva Chest: Unremarkable Heart: Unremarkable Abdomen: Soft, no tenderness Lower extremities: No edema Relevant Lab Results No results found for: NA , K , CL , CO2 , BUN , CREATININE , GLUCOSE , CALCIUM , ANIONGAP , EGFR , BCR Relevant Imaging Results No image results found. Assessment/Plan Kati Thorne is a 49 y.o. female who is presenting with a complaint of intermittent postprandial epigastric abdominal pain that radiates to the back. Patient reports 10 pound weight loss over the last 2 months. She had history of gallstones and she is status postcholecystectomy back in the . She smokes 1 pack of cigarettes a day but denies significant alcohol use. She had a CT scan of abdomen that revealed dilated common bile duct up to 1.6 cm with no choledocholithiasis or mass noted. She is scheduled to have an upper endoscopy with endoscopic ultrasound to assess the upper GI tract and the pancreaticobiliary system. Normal [facility] NURSNOTEon 03-11-2025 NURSNOTE Discharge reviewed w sheila pt. And yumiko Lindsey, both verbalized understanding of instructions with no questions prior to DC. Normal [facility] POCT GLUCOSE METER UNSOLICIT ED RESULTSon 03-11-2025 Glucose [Mass/Vol] 96 mg/dL Normal 70-105 [facility] Comment on above: Order Comment: Waive d Testing in the ED is performed under the ED CLIA certificate #[id number]. Result Comment: ltol les Performed By: #### L [id number] ####[facility] ([facility])[address] [place] [address] Prep for Procedureon 025 Prep for Procedure [id number] Lisa Thorne A 1975 Date Provider Department Center 03/11/2025 Hao-ROSCOE BE [facility] No family history on file Normal [facility] Orders Onlyon 03-09-2025 Orders Only [id number] Lisa Thorne A 1975 Date Provider Department Center 03/09/2025 [id number], HISTORICAL [facility] Medical C No family history on file Normal [facility] Telephoneon 02-25-2025 Telephone [id number] Lisa Thorne A 1975 Date Provider Department Center 02/25/2025 [facility] No family history on file Normal [facility] C ANAon 07-13-2024 C NOE ---- Final No anaerobic growth after 72 hrs. [facility] Comment on above: Performed By: #### A LOBO #### [address] [place] [address] C NOE ---- Final No anaerobic growth after 72 hrs. [facility] Comment on above: Performed By: #### Misti TINEO #### [facility] (DEFAULT) [address] [place] [address], [place] [address] [place] [address] C NOE ---- Final No anaerobic growth after 72 hrs. [facility] Comment on above: Performed By: #### A LOBO #### [place] [address] [place] [address] C NOE ---- Final No anaerobic growth after 72 hrs. [facility] Comment on above: Performed By: #### S BS #### [facility] (DEFAULT) [address] [place] [address], [place] [address] [place] [address] C Sterile BSon 07-12-2024 C Sterile BS ---- Final Light Growth of Klebsiella oxytoca isolated . and Moderate Growth of Methicillin-Sensitive Staph aureus isolated Refer to previous culture for susceptibility. ORGANISM Kleoxy MSSA Gram Stain No organisms seen. - SUSCEPTIBILITY ORGANISM ID: 1 ANTIBIOTIC INTERPRETATION ROBERT STATUS POS Klebsiella oxytoca Ampicillin/Sulbactam I 16 V Ampicillin R >=32 V Cefazolin R >=32 V Cefepime S <=0.12 V Ceftazidime S <=0.5 V Ceftriaxone S <=0.25 V Ciprofloxacin S <=0.06 V Gentamicin S <=1 V Levofloxacin S <=0.12 V Meropenem S <=0.25 V Trimethoprim/Sulfa S <=20 V Normal [facility] Comment on above: Performed By: #### S [facility] #### [facility] (DEFAULT) [address] [place] [address] [facility] [address] [place] [address] C Sterile BS ---- Final Light Growth of Staphylococcus aureus isolated . and Scant Growth of Klebsiella oxytoca isolated ORGANISM Kleoxy SA Gram Stain No organisms seen. - SUSCEPTIBILITY ORGANISM ID: 1 ANTIBIOTIC INTERPRETATION ROBERT STATUS POS Klebsiella oxytoca Ampicillin/Sulbactam I 16 V Ampicillin R >=32 V Cefazolin R >=32 V Cefepime S <=0.12 V Ceftazidime S <=0.5 V Ceftriaxone S <=0.25 V Ciprofloxacin S <=0.06 V Gentamicin S <=1 V Levofloxacin S <=0.12 V Meropenem S <=0.25 V Trimethoprim/Sulfa S <=20 V - SUSCEPTIBILITY ORGANISM ID: 2 ANTIBIOTIC INTERPRETATION ROBERT STATUS POS Staphylococcus aureus Clindamycin S 0.25 V Daptomycin S 0.5 V Doxycycline S <=0.5 V Erythromycin S <=0.25 V Linezolid S 2 V Levofloxacin S <=0.12 V Moxifloxacin S <=0.25 V Oxacillin S 0.5 V Tetracycline S <=1 V Trimethoprim/Sulfa S <=10 V Vancomycin S [address] [facility] Comment on above: Performed By: #### S [facility] #### [facility] (DEFAULT) [address] [place] [address] [facility] [address] [place] [address] C Sterile BS ---- Final Moderate Growth of Klebsiella oxytoca isolated . and Moderate Growth of Staphylococcus aureus isolated ORGANISM Kleoxy SA Gram Stain No organisms seen. Rare epithelial cells - SUSCEPTIBILITY ORGANISM ID: 1 ANTIBIOTIC INTERPRETATION ROBERT STATUS POS Klebsiella oxytoca Ampicillin/Sulbactam S 8 V Ampicillin R >=32 V Cefazolin R >=32 V Cefepime S <=0.12 V Ceftazidime S <=0.5 V Ceftriaxone S <=0.25 V Ciprofloxacin S <=0.06 V Gentamicin S <=1 V Levofloxacin S <=0.12 V Meropenem S <=0.25 V Trimethoprim/Sulfa S <=20 V - SUSCEPTIBILITY ORGANISM ID: 2 ANTIBIOTIC INTERPRETATION ROBERT STATUS POS Staphylococcus aureus Clindamycin S 0.25 V Daptomycin S 0.5 V Doxycycline S <=0.5 V Erythromycin S <=0.25 V Linezolid S 2 V Levofloxacin S <=0.12 V Moxifloxacin S <=0.25 V Oxacillin S 0.5 V Tetracycline S <=1 V Trimethoprim/Sulfa S <=10 V Vancomycin S [address] [facility] Comment on above: Performed By: #### S [facility] #### [facility] (DEFAULT) [address] [place] [address] [address] C Sterile BS ---- Final Moderate Growth of Staphylococcus aureus isolated ORGANISM SA Gram Stain No organisms seen. Rare epithelial cells - SUSCEPTIBILITY ORGANISM ID: 1 ANTIBIOTIC INTERPRETATION ROBERT STATUS POS Staphylococcus aureus Clindamycin S 0.25 V Daptomycin S 0.5 V Doxycycline S <=0.5 V Erythromycin S <=0.25 V Linezolid S 2 V Levofloxacin S <=0.12 V Moxifloxacin S <=0.25 V Oxacillin S <=0.25 V Tetracycline S <=1 V Trimethoprim/Sulfa S <=10 V Vancomycin S [address] [facility] Comment on above: Performed By: #### S [facility] #### [facility] (DEFAULT) [address] [place] [address] .eGFRon 07-11-2024 GFR/1.73 sq M.predicted MDRD (S/P/Bld) [Vol rate/Area] mL/min/{1.73_m2} Normal >=60 [facility] Comment on above: Result Comment: [facility] have implemented the eGFR calculation [...] years Performed By: #### A NAC #### [facility] [address] [place] [address] CBC w/ Diffon 07-11-2024 Erythrocyte distribution width (RBC) [Ratio] 13.4 % Normal 11.6-14.8 [facility] Comment on above: Performed By: #### S BSC #### [facility] (DEFAULT) [address] [place] [address] [facility] [address] [place] [address] Hematocrit (Bld) [Volume fraction] 37.5 % Normal 36.0-46.0 [facility] Comment on above: Performed By: #### S BSC #### [facility] (DEFAULT) [address] [place] [address] [address] Hemoglobin (Bld) [Mass/Vol] 12.6 g/dL Normal 12.0-16.0 [facility] Comment on above: Performed By: #### S BSC #### [facility] (DEFAULT) [address] [place] [address] [facility] [address] [place] [address] MCH (RBC) [Entitic mass] 32.5 pg Normal 27.0-35.0 [facility] Comment on above: Performed By: #### S BSC #### [facility] (DEFAULT) [address] [facility] [address] [facility] [address] [place] [address] MCHC 33.7 % Normal 31.0-37.0 [facility] Comment on above: Performed By: #### S BSC #### [facility] (DEFAULT) [address] [place] [address] [facility] [address] [place] [address] MCV (RBC) [Entitic vol] 96.6 fL Normal 80.0-100.0 [facility] Comment on above: Performed By: #### S BSC #### [facility] (DEFAULT) [address] [place] [address] [facility] [address] [place] [address] Platelet 172 x10*3/mcL Normal 150-450 [facility] Comment on above: Performed By: #### S BSC #### [facility] (DEFAULT) [address] [place] [address] [facility] [address] [place] [address] Platelet mean volume (Bld) [Entitic vol] 9.3 fL Normal 6.7-10.6 [facility] Comment on above: Performed By: #### S BSC #### [facility] (DEFAULT) [address] [place] [address] [facility] [address] [place] [address], [place] [address] RBC 3.88 x10*6/mcL Normal 3.80-5.20 [facility] Comment on above: Performed By: #### S BSC #### [facility] (DEFAULT) [address] [place] [address] [facility] [address] [place] [address] WBC 8.8 x10*3/mcL Normal 4.5-11.0 [facility] Comment on above: Performed By: #### S BSC #### [facility] (DEFAULT) [address] [place] [address] [facility] [address] [place] [address] CMPon 07-11-2024 Albumin [Mass/Vol] 3.5 g/dL Normal 3.2-4.9 [facility] Comment on above: Performed By: #### S BSC #### [facility] (DEFAULT) [address] [place] [address] [facility] [address] [place] [address] Albumin/Globulin [Mass ratio] 1.5 {ratio} Normal 1.1-2.2 [facility] Comment on above: Performed By: #### S BSC #### [facility] (DEFAULT) [address] [place] [address] [facility] [address] [place] [address] Alk Phos 66 IU/L Normal 32-91 [facility] Comment on above: Performed By: #### S BSC #### [facility] (DEFAULT) [address] [place] [address] [facility] [address] [place] [address] ALT [Catalytic activity/Vol] 11 U/L Low 14-54 [facility] Comment on above: Performed By: #### S BSC #### [facility] (DEFAULT) [address] [place] [address] [facility] [address] [place] [address] Anion gap [Moles/Vol] 7 mmol/L Normal 4-12 [facility] [facility] Comment on above: Performed By: #### S BSC #### [facility] (DEFAULT) [address] [place] [address] [facility] [address] [place] [address] AST [Catalytic activity/Vol] 16 U/L Normal 15-41 [facility] Comment on above: Performed By: #### S BSC #### [facility] (DEFAULT) [address] [place] [address] [facility] [address] [place] [address] Bili Total 1.3 mg/dL High 0.3-1.2 [facility] Comment on above: Performed By: #### S BSC #### [facility] (DEFAULT) [address] [place] [address] [facility] [address] [place] [address] Calcium [Mass/Vol] 8.4 mg/dL Low 8.5-10.3 [facility] Comment on above: Performed By: #### S BSC #### [facility] (DEFAULT) [address] [place] [address] [facility] [address] [place] [address] Chloride [Moles/Vol] 103 mmol/L Normal 98-110 [facility] Comment on above: Performed By: #### S BSC #### [facility] (DEFAULT) [address] [place] [address] [facility] [address] [place] [address] CO2 [Moles/Vol] 28 mmol/L Normal 22-32 [facility] Comment on above: Performed By: #### S BSC #### [facility] (DEFAULT) [address] [place] [address] [facility] [address] [place] [address] Creatinine [Mass/Vol] 0.63 mg/dL Normal 0.44-1.03 [facility] Comment on above: Performed By: #### S BSC #### [facility] (DEFAULT) [address] [place] [address] [facility] [address] [place] [address] Glucose [Mass/Vol] 103 mg/dL High 70-99 [facility] Comment on above: Performed By: #### S BSC #### [facility] (DEFAULT) [address] [place] [address] [facility] [address] [place] [address] Potassium [Moles/Vol] 2.9 mmol/L Low 3.4-4.8 [facility] Comment on above: Performed By: #### S BSC #### [facility] (DEFAULT) [address] [place] [address] [facility] [address] [place] [address] Protein [Mass/Vol] 5.9 g/dL Low 6.5-8.1 [facility] Comment on above: Performed By: #### S BSC #### [facility] (DEFAULT) [address] [place] [address] [facility] [address] [place] [address] Sodium [Moles/Vol] 138 mmol/L Normal 133-142 [facility] Comment on above: Performed By: #### S BSC #### [facility] (DEFAULT) [address] [place] [address] [facility] [address] [place] [address] Urea nitrogen [Mass/Vol] 7 mg/dL Low 8- [facility] Comment on above: Performed By: #### S BSC #### [facility] (DEFAULT) [address] [place] [address] [facility] [address] [place] [address] Urea nitrogen/Creatinine [Mass ratio] 11.1 mg/mg Normal 10.0-20.0 [facility] Comment on above: Performed By: #### S BSC #### [facility] (DEFAULT) [address] [place] [address] [address] Dietary Consultationon 07-11 Dietary Consultation Consult for low BMI. 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 Reports UBW of 108# since losing weight about 3-4 years ago which algins with weight on admit. Reports she is discharging after potassium infusion. Will continue to follow along appropriately. Electronically signed by _ Mehnaz Moran RD 07/11/24 15:[address] [facility] Diff Autoon 07-11-2024 Baso Absolute 0.0 x10*3/mcL Normal 0.0-0.2 [facility] Comment on above: Performed By: #### A NAC #### [address] [address] Basophils/100 WBC (Bld) 0.5 % Normal 0.0-1.5 [facility] Comment on above: Performed By: #### A NAC #### [address] [address] Eos Absolute 0.0 x10*3/mcL Normal 0.0-0.4 [facility] Comment on above: Performed By: #### A NAC #### [address] [address] Eosinophils/100 WBC (Bld) 0.3 % Normal 0.0-5.4 [facility] Comment on above: Performed By: #### A NAC #### [address] [address] Lymph Absolute 2.1 x10*3/mcL Normal 1.0-4.8 [facility] Comment on above: Performed By: #### A NAC #### [address] [address] Lymphocytes/100 WBC (Bld) 24.0 % Low 27.2-40.8 [facility] Comment on above: Performed By: #### A NAC #### [address] [address] Hyde Absolute 0.5 x10*3/mcL Normal 0.1-1.1 [facility] Comment on above: Performed By: #### A NAC #### [address] [address] Monocytes/100 WBC (Bld) 6.1 % Normal 3.7-11.9 [facility] Comment on above: Performed By: #### A NAC #### [address] [address] Neutro Absolute 6.1 x10*3/mcL Normal 1.8-7.7 [facility] Comment on above: Performed By: #### A NAC #### [address] [address] Neutro Auto 69.1 % Normal 47.2-70.8 [facility] Comment on above: Performed By: #### A NAC #### [address] [address] Inpatient Clinical Summaryon 07-11-2024 Inpatient Clinical Summary [address] [address] [place] [address] Clinical Summary Person Information Name: Kati Thorne Age: 48 Years : 1975 Sex: Female PCP: Unavailable, Physician Marital Status: Phone: PCP: Race: White Ethnicity: Not or Language: Nepali Visit Id: Visit Reason: Speciality: Acuity: Enc Type: Observation Med Service: Surgery Arrival: 07/10/2024 11:21:35 Discharge: Dispo Type: Address: [address] [place] [id number] Diagnosis: Discharged To: Home Treatments: Devices/Equipment: Professional Skilled Services: Special Services and Community Resources: Mode of Discharge Transportation: Discharge Orders Discharge Special Instructions network lead will contact you tomorrow regarding pain medication refill. Discharge Special Instructions Patient will be nonweightbearing to the extremity. She will maintain her dressing till follow-up appointment. Continue antibiotics follow-up with cultures. Follow up 07/11/24 11:29:00 EDT, Provider: Hayden Recinos DO, 1 week Follow up 07/11/24 [...] range between ( 27.2 and 40.8 ) Hyde Auto: 6.1 % -- Normal range between [...] range between ( 36.0 and 46.0 ) Hyde Absolute: 0.5 x10 MCH: 32.5 pg -- [...] Immunizations Doc (more content not included)... Normal [facility] Potassiumon 07-11-2024 Potassium [Moles/Vol] 4.0 mmol/L Normal 3.4-4.8 [facility] Comment on above: Performed By: #### A NAC #### [facility] [address] [place] [address] Progress Note-Nurseon 2023 Progress Note-Nurse Discharge instructio ns reviewed with pt and pt verbalizes understanding. Pt taken per wheelchair to private vehicle accompanied by tech. Electronically signed by _ Marysol Lopes 07/11/24 17:[address] [facility] .eGFRon 07-10-2024 GFR/1.73 sq M.predicted MDRD (S/P/Bld) [Vol rate/Area] mL/min/{1.73_m2} Normal >=60 [facility] Comment on above: Result Comment: [facility] have implemented the eGFR calculation [...] years Performed By: #### A NAC #### [address] [address] CBC w/ Diffon 07-10-2024 Erythrocyte distribution width (RBC) [Ratio] 13.5 % Normal 11.6-14.8 [facility] Comment on above: Performed By: #### A NAC #### [place] [id number] Hematocrit (Bld) [Volume fraction] 39.9 % Normal 36.0-46.0 [facility] Comment on above: Performed By: #### A NAC #### [place] [id number] Hemoglobin (Bld) [Mass/Vol] 13.3 g/dL Normal 12.0-16.0 [facility] Comment on above: Performed By: #### A NAC #### [address] [address] MCH (RBC) [Entitic mass] 32.2 pg Normal 27.0-35.0 [facility] Comment on above: Performed By: #### A NAC #### [place] [id number] MCHC 33.4 % Normal 31.0-37.0 [facility] Comment on above: Performed By: #### A NAC #### [address] [address] MCV (RBC) [Entitic vol] 96.6 fL Normal 80.0-100.0 [facility] Comment on above: Performed By: #### A NAC #### [address] [address] Platelet 182 x10*3/mcL Normal 150-450 [facility] Comment on above: Performed By: #### A NAC #### [address] [address] Platelet mean volume (Bld) [Entitic vol] 8.9 fL Normal 6.7-10.6 [facility] Comment on above: Performed By: #### A NAC #### [address] [address] RBC 4.13 x10*6/mcL Normal 3.80-5.20 [facility] Comment on above: Performed By: #### A NAC #### [address] [address] WBC 10.2 x10*3/mcL Normal 4.5-11.0 [facility] Comment on above: Performed By: #### A NAC #### [address] [address] CMPon 07-10-2024 Albumin [Mass/Vol] 3.8 g/dL Normal 3.2-4.9 [facility] Comment on above: Performed By: #### A NAC #### [address] [address] Albumin/Globulin [Mass ratio] 1.4 {ratio} Normal 1.1-2.2 [facility] Comment on above: Performed By: #### A NAC #### [address] [address] Alk Phos 75 IU/L Normal 32-91 [facility] Comment on above: Performed By: #### A NAC #### [address] [address] ALT [Catalytic activity/Vol] 13 U/L Low 14-54 [facility] Comment on above: Performed By: #### A NAC #### [address] [address] Anion gap [Moles/Vol] 10 mmol/L Normal 4-12 [facility] Comment on above: Performed By: #### A NAC #### [address] [address] AST [Catalytic activity/Vol] 17 U/L Normal 15-41 [facility] Comment on above: Performed By: #### A NAC #### [address] [address] Bili Total 0.9 mg/dL Normal 0.3-1.2 [facility] Comment on above: Performed By: #### A NAC #### [address] [address] Calcium [Mass/Vol] 8.6 mg/dL Normal 8.5-10.3 [facility] Comment on above: Performed By: #### A NAC #### [address] [address] Chloride [Moles/Vol] 103 mmol/L Normal 98-110 [facility] Comment on above: Performed By: #### A NAC #### [address] [address] CO2 [Moles/Vol] 27 mmol/L Normal 22-32 [facility] Comment on above: Performed By: #### A NAC #### [address] [address] Creatinine [Mass/Vol] 0.54 mg/dL Normal 0.44-1.03 [facility] Comment on above: Performed By: #### A NAC #### [address] [address] Glucose [Mass/Vol] 105 mg/dL High 70-99 [facility] Comment on above: Performed By: #### A NAC #### [address] [address] Potassium [Moles/Vol] 2.7 mmol/L Low 3.4-4.8 [facility] Comment on above: Performed By: #### A NAC #### [address] [address] Protein [Mass/Vol] 6.6 g/dL Normal 6.5-8.1 [facility] Comment on above: Performed By: #### A NAC #### [address] [address] Sodium [Moles/Vol] 140 mmol/L Normal 133-142 [facility] Comment on above: Performed By: #### A NAC #### [address] [address] Urea nitrogen [Mass/Vol] 9 mg/dL Normal 8-26 [facility] Comment on above: Performed By: #### A NAC #### [address] [address] Urea nitrogen/Creatinine [Mass ratio] 16.7 mg/mg Normal 10.0-20.0 [facility] Comment on above: Performed By: #### A NAC #### [address] [address] Diff Autoon 07-10-2024 Baso Absolute 0.1 x10*3/mcL Normal 0.0-0.2 [facility] Comment on above: Performed By: #### A NAC #### [address] [address] Basophils/100 WBC (Bld) 0.6 % Normal 0.0-1.5 [facility] Comment on above: Performed By: #### A NAC #### [address] [address] Eos Absolute 0.0 x10*3/mcL Normal 0.0-0.4 [facility] Comment on above: Performed By: #### A NAC #### [address] [address] Eosinophils/100 WBC (Bld) 0.3 % Normal 0.0-5.4 [facility] Comment on above: Performed By: #### A NAC #### [address] [address] Lymph Absolute 2.3 x10*3/mcL Normal 1.0-4.8 [facility] Comment on above: Performed By: #### A NAC #### [address] [address] Lymphocytes/100 WBC (Bld) 22.8 % Low 27.2-40.8 [facility] Comment on above: Performed By: #### A NAC #### [address] [address] Hyde Absolute 0.5 x10*3/mcL Normal 0.1-1.1 [facility] Comment on above: Performed By: #### A NAC #### [place] [address] Monocytes/100 WBC (Bld) 5.2 % Normal 3.7-11.9 [facility] Comment on above: Performed By: #### A NAC #### [address] [address] Neutro Absolute 7.2 x10*3/mcL Normal 1.8-7.7 [facility] Comment on above: Performed By: #### A NAC #### [place] [address] Neutro Auto 71.1 % High 47.2-70.8 [facility] Comment on above: Performed By: #### A NAC #### [place] [id number] Magnesiumon 07-10-2024 Magnesium [Mass/Vol] 1.8 mg/dL Normal 1.7-2.4 [facility] Comment on above: Performed By: #### S BSC #### [facility] (DEFAULT) [address] [place], [place] [id number] Operative Reporton Operative Report Indication for Surge ry Patient is a 48-year-old female who presents [...] index finger amputation through middle phalanx. Surgeon(s) Hayden Recinos DO (Surgeon - Primary) Safety Risk Lead None Anesthesia General Thaddeus RAMIREZ, Dominick Young (Case Manager Specialist) Zackery De Dios (Provider) Estimated Blood Loss [...] Catheters, Drains, Tubes None Electronically signed by _ Hayden Recinos DO 07/10/24 15:[address] [facility] XR Finger 2nd Digit Righton 07-10-2024 [...] Electronically Signed in Other Vendor System) Normal [facility] XR FINGER LEFT (MIN 2 VIEWS) [...] Robertson Jr., MD 06/30/24 Final result Normal [facility] XR FINGER RIGHT (MIN 2 VIEWS [...] Robertson Jr., MD 06/09/24 Final result Normal [facility] XR NECK SOFT TISSUEon 2022 XR [...] Date: 2023-02-23 13:14 Normal [facility] FREE T4on 02-20-2023 Free T4 [Mass/Vol] 0.65 ng/dL Critically low 0.76-1.46 [facility] Comment on above: Performed By: #### L ACT #### [facility] [address] [place] [address] [address] Jovanna Oneill TSH W/ REFLEX TO FT4on 02-20 TSH 5.032 uIU/mL Critically high 0.358-3.740 The [facility] Comment on above: Performed By: #### L ACT #### [facility] [address] [place] [address] [address] Jovanna Oneill RESPIRATORY PANEL PLUSon Adenovirus Not detected Normal NOT DETECTED [facility] Comment on above: Performed By: #### R SPLUS ####[facility] [address] [place] [address]Dr. Jovanna Oneill B. Parapertusis Not detected Normal NOT DETECTED [facility] Comment on above: Performed By: #### R SPLUS ####[facility] [address] [place], [place] [address]Dr. Yireagan Oneill B. Pertussis Not detected Normal NOT DETECTED The [facility] Comment on above: Performed By: #### R SPLUS ####[facility] [address] [place], [place] [address]Dr. Yilan Oneill Chlamydia Pneumoniae Not detected Normal NOT DETECTED [facility] Comment on above: Performed By: #### R SPLUS ####[facility] [address] [place], [place] [address]Dr. Yilan Oneill Coronavirus 229E Not detected Normal NOT DETECTED [facility] Comment on above: Performed By: #### R SPLUS ####[facility] [address] [place], [place] [address]Dr. Yilan Oneill Coronavirus HKU1 Not detected Normal NOT DETECTED [facility] Comment on above: Performed By: #### R SPLUS ####[facility] [address] [place], [place] [address]Dr. Yilan Oneill Coronavirus NL63 Not detected Normal NOT DETECTED [facility] Comment on above: Performed By: #### R SPLUS ####[facility] [address] [place], [place] [address]Dr. Yilan Oneill Coronavirus OC43 Not detected Normal NOT DETECTED [facility] Comment on above: Performed By: #### R SPLUS ####[facility] [address] [place], [place] [address]Dr. Yilan Oneill Influenza A H1 Not detected Normal NOT DETECTED The [facility] Comment on above: Performed By: #### R SPLUS ####[facility] [address] [place], [place] [address]Dr. Yilan Oneill Influenza A H1 2009 Not detected Normal NOT DETECTED [facility] Comment on above: Performed By: #### R SPLUS ####[facility] [address] [place], [place] [address]Dr. Yilan Oneill Influenza A H3 Not detected Normal NOT DETECTED The [facility] Comment on above: Performed By: #### R SPLUS ####[facility] [address] [place], [place] [address]Dr. Yilan Oneill Influenza B Not detected Normal NOT DETECTED [facility] Comment on above: Performed By: #### R SPLUS ####[facility] [address] [place] [address]Dr. Jovanna Oneill Metapneumovirus Not detected Normal NOT DETECTED [facility] Comment on above: Performed By: #### R SPLUS ####[facility] [address] [place] [address]Dr. Jovanna Oneill Mycoplas. Pneumoniae Not detected Normal NOT DETECTED [facility] Comment on above: Performed By: #### R SPLUS ####[facility] [address] [place], [place] [address]Dr. Jovanna Oneill Parainfluenza 1 Not detected Normal NOT DETECTED [facility] Comment on above: Performed By: #### R SPLUS ####[facility] [address] [place], [place] [address]Dr. Jovanna Oneill Parainfluenza 2 Not detected Normal NOT DETECTED [facility] Comment on above: Performed By: #### R SPLUS ####[facility] [address] [place], [place] [address]Dr. Jovanna Oneill Parainfluenza 3 Not detected Normal NOT DETECTED [facility] Comment on above: Performed By: #### R SPLUS ####[facility] [address] [place], [place] [address]Dr. Jovanna Oneill Parainfluenza 4 Not detected Normal NOT DETECTED [facility] Comment on above: Performed By: #### R SPLUS ####[facility] [address] [place], [place] [address]Dr. Jovanna Oneill Rhino/Enterovirus Not detected Normal NOT DETECTED [facility] Comment on above: Performed By: #### R SPLUS ####[facility] [address] [place], [place] [address]Dr. Jovanna Oneill RP2 Header 1 RESPIRATORY PANEL: VIRUSES Normal [facility] Comment on above: Performed By: #### R SPLUS ####[facility] [address] [place], [place] [address]Dr. Jovanna Oneill RP2 Header 2 RESPIRATORY PANEL: BACTERIA Normal [facility] Comment on above: Performed By: #### R SPLUS ####[facility] [address] [place], [place] [address]Jp. Jovanna Oneill RSV Not detected Normal NOT DETECTED [facility] Comment on above: Performed By: #### R SPLUS ####[facility] [address] [place], [place] [address]Sw. Jovanna Oneill SARS-CoV-2 (COVID-19) RNA DUC+probe Ql (Unsp spec) Not detected Normal NOT DETECTED [facility] Comment on above: Performed By: #### R SPLUS ####[facility] [address] [place], [place] [address]Om. Jovanna Oneill MG MAMM SCREEN 3D CHELLY CADon 01-12-2023 MG MAMM SCREEN 3D CHELLY CAD Patient: KATI THORNE Exam Date: 01/12/2023 : 1975 Gender:F Ordering : TATUM ONOFRE Admission #: [id number] Family : Order #: [id number] CLICK HERE TO VIEW EXAM RADIOLOGY REPORT [...] at age 40. LOCATION: [facility] BREAST COMPOSITION: Almost entirely fatty. FINDINGS: DIAGNOSTIC CATEGORY 2--BENIGN FINDING. NO CHANGE FROM COMPARISON. Bilateral inverted nipples RIGHT BREAST: No significant suspicious finding. LEFT BREAST: No significant suspicious finding. RECOMMENDATIONS: ROUTINE MAMMOGRAM AND CLINICAL EVALUATION IN 12 MONTHS. PLEASE NOTE: A NORMAL MAMMOGRAM DOES NOT EXCLUDE THE POSSIBILITY OF BREAST CANCER. A CLINICALLY SUSPICIOUS PALPABLE LUMP SHOULD BE BIOPSIED. Dictated by: Rj Perez MD on 01/12/2023 at 12:40 Approved by: Rj Perez MD on 01/12/2023 at 12:42 Normal [facility] XR DEXA BONE DENSITYon 01-12 XR DEXA BONE DENSITY EXAMINATION: XR DEXA BONE DENSITY, 01/12/2023 9:31 AM EST HISTORY: [...] High fracture risk Electronically authenticated by: RJ PEREZ Date: 2023-01-12 17:10 Normal [facility] GABAPENTIN URINEon Gabapentin, Urine Negative Normal [facility] Comment on above: Performed By: #### G ABAP ####[facility] [address] [place] [address]Dr. Jovanna Oneill DRUG SCREEN RAPID (URINE)on 11-14-2022 AMP Negative Normal NEGATIVE [facility] Comment on above: Performed By: #### V ITB12 #### [facility] [address] [place] [address] [address] Jovanna Oneill BAR Negative Normal NEGATIVE [facility] Comment on above: Performed By: #### V ITB12 #### [facility] [address] [place] [address] [address] Jovanna Oneill BUP Negative Normal NEGATIVE [facility] Comment on above: Performed By: #### V ITB12 #### [facility] [address] [address] [address] Jovanna Oneill BZO Negative Normal NEGATIVE [facility] Comment on above: Performed By: #### V ITB12 #### [facility] [address] [address] [address] Jovanna Oneill CARA Negative Normal NEGATIVE [facility] Comment on above: Performed By: #### V ITB12 #### [facility] [address] [place] [address] Dr. Jovanna Oneill CUT-OFFS SEE BELOW Normal [facility] Comment on above: Result Comment: AMP [...] By: #### V ITB12 #### [facility] [address] [place] [address] Dr. Jovanna Oneill DRUG CUT HEADER DRUG CLASS TEST SYST EM CUT-OFF CONCENTRATIONS ARE FOLLOWS: Normal [facility] Comment on above: Performed By: #### V ITB12 #### [facility] [address] [place] [address] Dr. Jovanna Oneill mAMP Negative Normal NEGATIVE [facility] Comment on above: Performed By: #### V ITB12 #### [facility] [address] [place] [address] Dr. Jovanna Oneill MTD Negative Normal NEGATIVE [facility] Comment on above: Performed By: #### V ITB12 #### [facility] [address] [place] [address] Dr. Jovanna Oneill OPI Positive Abnormal NEGATIVE [facility] Comment on above: Performed By: #### V ITB12 #### [facility] [address] [place] [address] Dr. Jovanna Oneill OXY Negative Normal NEGATIVE [facility] Comment on above: Performed By: #### V ITB12 #### [facility] [address] [place] [address] Dr. Jovanna Oneill PCP Negative Normal NEGATIVE [facility] Comment on above: Performed By: #### V ITB12 #### [facility] [address] [place] [address] Dr. Jovanna Oneill PPX Negative Normal NEGATIVE [facility] Comment on above: Performed By: #### V ITB12 #### [facility] [address] [place] [address] Dr. Jovanna Oneill TCA Negative Normal NEGATIVE [facility] Comment on above: Performed By: #### V ITB12 #### [facility] [address] [place] [address] Dr. Jovanna Oneill THC Positive Abnormal NEGATIVE [facility] Comment on above: Performed By: #### V ITB12 #### [facility] [address] [place] [address] Dr. Jovanna Oneill CBC AUTO DIFFon 10-08-2022 BASO # 0.0 103/ul Normal 0.0-0.1 [facility] Comment on above: Performed By: #### C BC #### [facility] [address] [place] [address] Dr. Jovanna Oneill Basophils/100 WBC (Bld) 0.4 % Normal 0.2-2.0 [facility] Comment on above: Performed By: #### C BC #### [facility] [address] [place] [address] Dr. Jovanna Oneill EO # 0.1 103/ul Normal 0.0-0.7 [facility] Comment on above: Performed By: #### C BC #### [facility] [address] [place] [address] Dr. Jovanna Oneill Eosinophils/100 WBC (Bld) 1.3 % Normal 0.9-7.0 [facility] Comment on above: Performed By: #### C BC #### [facility] [address] [place] [address] Dr. Jovanna Oneill Erythrocyte distribution width (RBC) [Ratio] 12.0 % Normal 11.0-15.0 [facility] Comment on above: Performed By: #### C BC #### [facility] [address] [place] [address] Dr. Jovanna Oneill Hematocrit (Bld) [Volume fraction] 37.8 % Normal 36.0-48.0 [facility] Comment on above: Performed By: #### C BC #### [facility] [address] [place] [address] Dr. Jovanna Oneill Hemoglobin (Bld) [Mass/Vol] 12.8 g/dL Normal 12.0-16.0 [facility] Comment on above: Performed By: #### C BC #### [facility] [address] [place] [address] Dr. Jovanna Oneill IG # 0.02 10e3/ul Normal 0.00-0.03 [facility] Comment on above: Performed By: #### C BC #### [facility] [address] [place] [address] Dr. Jovanna Oneill IG % 0.2 % Normal 0.0-0.5 [facility] Comment on above: Performed By: #### C BC #### [facility] [address] [place] [address] Dr. Jovanna Oneill LYMPH # 3.5 103/ul Normal 1.2-3.8 [facility] Comment on above: Performed By: #### C BC #### [facility] [address] [place] [address] Dr. Jovanna Oneill Lymphocytes/100 WBC (Bld) 37.9 % Normal 20.5-60.0 [facility] Comment on above: Performed By: #### C BC #### [facility] [address] [place] [address] Dr. Jovanna Oneill MANUAL DIFF REQ NO Normal [facility] Comment on above: Performed By: #### C BC #### [facility] [address] [place] [address] Dr. Jovanna Oneill MCH (RBC) [Entitic mass] 31.7 pg Normal 26.7-34.0 [facility] Comment on above: Performed By: #### C BC #### [facility] [address] [place] [address] Dr. Jovanna Oneill MCHC (RBC) [Mass/Vol] 33.9 g/dL Normal 29.9-35.2 [facility] Comment on above: Performed By: #### C BC #### [facility] [address] [place] [address] Dr. Jovanna Oneill MCV (RBC) [Entitic vol] 93.6 fL Normal 81.0-99.0 [facility] Comment on above: Performed By: #### C BC #### [facility] [address] [place] [address] Dr. Jovanna Oneill MONO # 0.5 103/ul Normal 0.3-0.8 [facility] Comment on above: Performed By: #### C BC #### [facility] [address] [place] [address] Dr. Jovanna Oneill Monocytes/100 WBC (Bld) 4.8 % Normal 1.7-12.0 [facility] Comment on above: Performed By: #### C BC #### [facility] [address] [place] [address] Dr. Jovanna Oneill NEUT # 5.1 103/ul Normal 1.4-6.5 [facility] Comment on above: Performed By: #### C BC #### [facility] [address] [place] [address] Dr. Jovanna Oneill Neutrophils/100 WBC (Bld) 55.4 % Normal 43.0-75.0 [facility] Comment on above: Performed By: #### C BC #### [facility] [address] [place] [address] Dr. Jovanna Oneill Platelet mean volume (Bld) [Entitic vol] 10.2 fL Normal 9.5-13.5 [facility] Comment on above: Performed By: #### C BC #### [facility] [address] [place] [address] Dr. Jovanna Oneill PLT 181 103/ul Normal 150-450 [facility] Comment on above: Performed By: #### C BC #### [facility] [address] [place] [address] Dr. Jovanna Oneill RBC 4.04 106/ul Critically low 4.20-5.40 [facility] Comment on above: Performed By: #### C BC #### [facility] [address] [place] [address] Dr. Jovanna Oneill WBC 9.3 103/ul Normal 4.0-11.0 [facility] Comment on above: Performed By: #### C BC #### [facility] [address] [address] [address] Jovanna Oneill CRPon 10-08-2022 CRP [Mass/Vol] mg/L Normal <=1.0 [facility] Comment on above: Performed By: #### B MP, CRP ####[facility] [address] [address]Dr. Jovanna Oneill LACTATE/LACTIC ACIDon 2021 Lactate [Moles/Vol] 0.4 mmol/L Normal 0.4-1.9 [facility] Comment on above: Performed By: #### L ACT #### [facility] [address] [place] [address] Dr. Jovanna Oneill PROF CHEM 8 (BAS METB)on Anion gap [Moles/Vol] 12.6 mmol/L Normal [facility] Comment on above: Performed By: #### B MP, CRP #### [facility] [address] [place] [address] Dr. Jovanna Oneill Calcium [Mass/Vol] 8.6 mg/dL Normal 8.5-10.[address] [facility] Comment on above: Performed By: #### B MP, CRP #### [facility] [address] [place] [address] Dr. Jovanna Oneill Chloride [Moles/Vol] 104 mmol/L Normal 98-107 [facility] Comment on above: Performed By: #### B MP, CRP #### [facility] [address] [place] [address] Dr. Jovanna Oneill CO2 [Moles/Vol] 26.8 mmol/L Normal 21.0-32.0 [facility] Comment on above: Performed By: #### B MP, CRP #### [facility] [address] [place] [address] Dr. Jovanna Oneill Creatinine [Mass/Vol] 0.52 mg/dL Critically low 0.55-1.02 [facility] Comment on above: Performed By: #### B MP, CRP #### [facility] [address] [address] [address] Jovanna Oneill EGFR-AF ITALIAN >60 Normal >=60 [facility] Comment on above: Performed By: #### B MP, CRP #### [facility] [address] [address] [address] Jovanna Oneill EGFR-NON AF ITALIAN >60 Normal >=60 [facility] Comment on above: Performed By: #### B MP, CRP #### [facility] [address] [address] [address] Jovanna Oneill Glucose [Mass/Vol] 93 mg/dL Normal 74-[address] [facility] Comment on above: Performed By: #### B MP, CRP #### [facility] [address] [address] [address] Jovanna Oneill Potassium [Moles/Vol] 3.4 mmol/L Critically low 3.5-5.1 [facility] Comment on above: Performed By: #### B MP, CRP #### [facility] [address] [address] [address] Jovanna Oneill Sodium [Moles/Vol] 140 mmol/L Normal 136-[address] [facility] Comment on above: Performed By: #### B MP, CRP #### [facility] [address] [address] [address] Jovanna Oneill Urea nitrogen [Mass/Vol] 11.0 mg/dL Normal 7.0-18.0 [facility] Comment on above: Performed By: #### B MP, CRP #### [facility] [address] [address] [address] Jovanna Oneill Urea nitrogen/Creatinine [Mass ratio] 21.2 mg/mg Normal [facility] Comment on above: Performed By: #### B MP, CRP #### [facility] [address] [address] [address] Jovanna Oneill SED RATE [facility] 2021 SED RATE 17 mm/hr Normal <=20 [facility] Comment on above: Performed By: #### S EDR ####[facility] [address] [place], [place] [address]Dr. Jovanna Oneill Physician Referralon 022 Physician Referral [phone] 1042 [id number]: 127 Normal [facility] Physician Referral [phone] 1042 [id number]: 127 Normal [facility] PROF 14(COMP METB)on 022 Albumin [Mass/Vol] 3.4 g/dL Normal 3.4-5.[address] [facility] Comment on above: Performed By: #### V ITB12 #### [facility] [address] [address] [address] Jovanna Oneill Albumin/Globulin [Mass ratio] 1.1 {ratio} Normal [facility] Comment on above: Performed By: #### V ITB12 #### [facility] [address] [place] [address] Dr. Jovanna Oneill ALP [Catalytic activity/Vol] 88 U/L Normal 46-116 [facility] Comment on above: Performed By: #### V ITB12 #### [facility] [address] [address] [address] Jovanna Oneill ALT [Catalytic activity/Vol] 11 U/L Critically low 14-59 [facility] Comment on above: Performed By: #### V ITB12 #### [facility] [address] [address] [address] Jovanna Oneill Anion gap [Moles/Vol] 8.7 mmol/L Normal [facility] Comment on above: Performed By: #### V ITB12 #### [facility] [address] [address] [address] Jovanna Oneill AST [Catalytic activity/Vol] 13 U/L Critically low 15-37 [facility] Comment on above: Performed By: #### V ITB12 #### [facility] [address] [address] [address] Jovanna Oneill Bilirubin [Mass/Vol] 0.6 mg/dL Normal 0.2-1.0 [facility] Comment on above: Performed By: #### V ITB12 #### [facility] [address] [address] [address] Jovanna Oneill Calcium [Mass/Vol] 8.7 mg/dL Normal 8.5-10.[address] [facility] Comment on above: Performed By: #### V ITB12 #### [facility] [address] [place] [address] Dr. Jovanna Oneill Chloride [Moles/Vol] 104 mmol/L Normal 98-107 [facility] Comment on above: Performed By: #### V ITB12 #### [facility] [address] [place] [address] Dr. Jovanna Oneill CO2 [Moles/Vol] 31.9 mmol/L Normal 21.0-32.0 [facility] Comment on above: Performed By: #### V ITB12 #### [facility] [address] [place] [address] Dr. Jovanna Oneill Creatinine [Mass/Vol] 0.65 mg/dL Normal 0.55-1.02 [facility] Comment on above: Performed By: #### V ITB12 #### [facility] [address] [place] [address] Dr. Jovanna Oneill EGFR-AF ITALIAN >60 Normal >=60 [facility] Comment on above: Performed By: #### V ITB12 #### [facility] [address] [place] [address] Dr. Jovanna Oneill EGFR-NON AF ITALIAN >60 Normal >=60 [facility] Comment on above: Performed By: #### V ITB12 #### [facility] [address] [place] [address] Dr. Jovanna Oneill Globulin (S) [Mass/Vol] 3.2 g/dL Normal [facility] Comment on above: Performed By: #### V ITB12 #### [facility] [address] [place] [address] Dr. Jovanna Oneill Glucose [Mass/Vol] 91 mg/dL Normal 74-106 [facility] Comment on above: Performed By: #### V ITB12 #### [facility] [address] [address] [address] Jovanna Oneill Potassium [Moles/Vol] 3.6 mmol/L Normal 3.5-5.1 [facility] Comment on above: Performed By: #### V ITB12 #### [facility] [address] [address] [address] Jovanna Oneill Protein [Mass/Vol] 6.6 g/dL Normal 6.4-8.2 [facility] Comment on above: Performed By: #### V ITB12 #### [facility] [address] [address] [address] Jovanna Oneill Sodium [Moles/Vol] 141 mmol/L Normal 136-145 [facility] Comment on above: Performed By: #### V ITB12 #### [facility] [address] [place] [address] Dr. Jovanna Oneill Urea nitrogen [Mass/Vol] 4.0 mg/dL Critically low 7.0-18.0 [facility] Comment on above: Performed By: #### V ITB12 #### [facility] [address] [address] [address] Jovanna Oneill Urea nitrogen/Creatinine [Mass ratio] 6.2 mg/mg Normal [facility] Comment on above: Performed By: #### V ITB12 #### [facility] [address] [place] [address] Dr. Jovanna Oneill HEPATITIS C AB CASCADE TO QU ANT PCR GENOon 09-13-2022 HCV AB <0.1 Normal 0.0-0.9 [facility] Comment on above: Performed By: #### H EPCASC #### [facility] [address] [place] [address] Dr. Jovanna Oneill Interpretation: Comment Normal [facility] Comment on above: Result Comment: Nega tive Not infected with HCV, unless recent infection is suspected or other evidence exists to indicate HCV infection. Performed By: #### H EPCASC #### [facility] [address] [place] [address] Dr. Jovanna Oneill CBC AUTO DIFFon 09-12-2022 BASO # 0.0 103/ul Normal 0.0-0.1 [facility] Comment on above: Performed By: #### C BC #### [facility] [address] [place] [address] Dr. Jovanna Oneill Basophils/100 WBC (Bld) 0.3 % Normal 0.2-2.0 [facility] Comment on above: Performed By: #### C BC #### [facility] [address] [place] [address] Dr. Jovanna Oneill EO # 0.1 103/ul Normal 0.0-0.7 [facility] Comment on above: Performed By: #### C BC #### [facility] [address] [place] [address] Dr. Jovanna Oneill Eosinophils/100 WBC (Bld) 0.7 % Critically low 0.9-7.0 [facility] Comment on above: Performed By: #### C BC #### [facility] [address] [place] [address] Dr. Jovanna Oneill Erythrocyte distribution width (RBC) [Ratio] 12.3 % Normal 11.0-15.0 [facility] Comment on above: Performed By: #### C BC #### [facility] [address] [place] [address] Dr. Jovanna Oneill Hematocrit (Bld) [Volume fraction] 40.2 % Normal 36.0-48.0 [facility] Comment on above: Performed By: #### C BC #### [facility] [address] [place] [address] Dr. Jovanna Oneill Hemoglobin (Bld) [Mass/Vol] 13.4 g/dL Normal 12.0-16.0 [facility] Comment on above: Performed By: #### C BC #### [facility] [address] [place] [address] Dr. Jovanna Oneill IG # 0.02 10e3/ul Normal 0.00-0.03 [facility] Comment on above: Performed By: #### C BC #### [facility] [address] [place] [address] Dr. Jovanna Oneill IG % 0.3 % Normal 0.0-0.5 [facility] Comment on above: Performed By: #### C BC #### [facility] [address] [place] [address] Dr. Jovanna Oneill LYMPH # 2.2 103/ul Normal 1.2-3.8 [facility] Comment on above: Performed By: #### C BC #### [facility] [address] [place] [address] Dr. Jovanna Oneill Lymphocytes/100 WBC (Bld) 31.9 % Normal 20.5-60.0 [facility] Comment on above: Performed By: #### C BC #### [facility] [address] [place] [address] Dr. Jovanna Oneill MANUAL DIFF REQ NO Normal [facility] Comment on above: Performed By: #### C BC #### [facility] [address] [place] [address] Dr. Jovanna Oneill MCH (RBC) [Entitic mass] 31.8 pg Normal 26.7-34.0 [facility] Comment on above: Performed By: #### C BC #### [facility] [address] [place] [address] Dr. Jovanna Oneill MCHC (RBC) [Mass/Vol] 33.3 g/dL Normal 29.9-35.2 [facility] Comment on above: Performed By: #### C BC #### [facility] [address] [place] [address] Dr. Jovanna Oneill MCV (RBC) [Entitic vol] 95.5 fL Normal 81.0-99.0 [facility] Comment on above: Performed By: #### C BC #### [facility] [address] [place] [address] Dr. Jovanna Oneill MONO # 0.3 103/ul Normal 0.3-0.8 [facility] Comment on above: Performed By: #### C BC #### [facility] [address] [place] [address] Dr. Jovanna Oneill Monocytes/100 WBC (Bld) 4.4 % Normal 1.7-12.0 [facility] Comment on above: Performed By: #### C BC #### [facility] [address] [address] [address] Jovanna Oneill NEUT # 4.4 103/ul Normal 1.4-6.5 [facility] Comment on above: Performed By: #### C BC #### [facility] [address] [address] [address] Jovanna Oneill Neutrophils/100 WBC (Bld) 62.4 % Normal 43.0-75.0 [facility] Comment on above: Performed By: #### C BC #### [facility] [address] [address] [address] Jovanna Oneill Platelet mean volume (Bld) [Entitic vol] 10.9 fL Normal 9.5-13.5 [facility] Comment on above: Performed By: #### C BC #### [facility] [address] [place] [address] Dr. Jovanna Oneill PLT 179 103/ul Normal 150-450 [facility] Comment on above: Performed By: #### C BC #### [facility] [address] [place] [address] Dr. Jovanna Oneill RBC 4.21 106/ul Normal 4.20-5.40 [facility] Comment on above: Performed By: #### C BC #### [facility] [address] [place] [address] Dr. Jovanna Oneill WBC 7.0 103/ul Normal 4.0-11.0 [facility] Comment on above: Performed By: #### C BC #### [facility] [address] [place] [address] Dr. Jovanna Oneill GLYCOHEMOGLOBIN A1Con 2021 ADA RECOMMENDATION SEE BELOW Normal [facility] Comment on above: Result Comment: ADA RECOMMENDED LIMIT 4.0 - 6.0 ADA THERAPEUTIC TARGET < 7.0 ACTION SUGGESTED > 7.0 Performed By: #### L ACT #### [facility] [address] [address] [address] Jovanna Oneill Glucose [Mass/Vol] 105 mg/dL Normal [facility] Comment on above: Performed By: #### L ACT #### [facility] [address] [address] [address] Jovanna Oneill HbA1c (Bld) [Mass fraction] 5.3 % Normal 4.5-6.2 [facility] Comment on above: Performed By: #### L ACT #### [facility] [address] [address] [address] Jovanna Oneill LIPID PROFILEon 09-12-2022 CHOL-HDL RATIO NORM SEE BELOW Normal [facility] Comment on above: Result Comment: 3.3 - 4.4 LOW RISK 4.4 - 7.1 AVERAGE RISK 7.1 - 11.0 MODERATE RISK >11.0 HIGH RISK Performed By: #### C MP, LIPID #### [facility] [address] [address] [address] Jovanna Oneill Cholesterol [Mass/Vol] 135 mg/dL Normal <=200 [facility] Comment on above: Performed By: #### C MP, LIPID #### [facility] [address] [place] [address] Dr. Jovanna Oneill Cholesterol in HDL [Mass/Vol] 35 mg/dL Critically low 40-60 [facility] Comment on above: Performed By: #### C MP, LIPID #### [facility] [address] [address] [address] Jovanna Oneill Cholesterol in LDL [Mass/Vol] 84.8 mg/dL Normal [facility] Comment on above: Performed By: #### C MP, LIPID #### [facility] [address] [address] [address] Jovanna Oneill Cholesterol.total/C holesterol in HDL [Mass ratio] 3.9 {ratio} Normal [facility] Comment on above: Performed By: #### C MP, LIPID #### [facility] [address] [place] [address] Dr. Jovanna Oneill HDL NORMAL > or = 60 mg/dl - LO W CARDIOVASCULAR RISK <40 mg/dl - HIGH CARDIOVASCULAR RISK Normal [facility] Comment on above: Performed By: #### C MP, LIPID #### [facility] [address] [address] [address] Jovanna Oneill LDL CALC NORMAL SEE BELOW Normal [facility] Comment on above: Result Comment: <100 mg/dl OPTIMAL 100 - 129 mg/dl NEAR OR ABOVE OPTIMAL 130 - 159 mg/dl BORDERLINE HIGH 160 - 189 mg/dl HIGH >190 mg/dl VERY HIGH Performed By: #### C MP, LIPID #### [facility] [address] [address] [address] Jovanna Oneill Triglyceride [Mass/Vol] 76 mg/dL Normal <=150 [facility] Comment on above: Performed By: #### C MP, LIPID #### [facility] [address] [address] [address] Jovanna Oneill VLDL CALC 15.2 mg/dL Normal [facility] Comment on above: Performed By: #### C MP, LIPID #### [facility] [address] [place] [address] Dr. Jovanna Oneill PROF 14(COMP METB)on 022 Albumin [Mass/Vol] 3.5 g/dL Normal 3.4-5.[address] [facility] Comment on above: Performed By: #### C MP, LIPID #### [facility] [address] [place] [address] Dr. Jovanna Oneill Albumin/Globulin [Mass ratio] 1.1 {ratio} Normal [facility] Comment on above: Performed By: #### C MP, LIPID #### [facility] [address] [place] [address] Dr. Jovanna Oneill ALP [Catalytic activity/Vol] 79 U/L Normal 46-116 [facility] Comment on above: Performed By: #### C MP, LIPID #### [facility] [address] [address] [address] Jovanna Oneill ALT [Catalytic activity/Vol] 15 U/L Normal 14-59 [facility] Comment on above: Performed By: #### C MP, LIPID #### [facility] [address] [address] [address] Jovanna Oneill Anion gap [Moles/Vol] 4.9 mmol/L Normal [facility] Comment on above: Performed By: #### C MP, LIPID #### [facility] [address] [address] [address] Jovanna Oneill AST [Catalytic activity/Vol] 17 U/L Normal 15-37 [facility] Comment on above: Performed By: #### C MP, LIPID #### [facility] [address] [address] [address] Jovanna Oneill Bilirubin [Mass/Vol] 0.4 mg/dL Normal 0.2-1.0 [facility] Comment on above: Performed By: #### C MP, LIPID #### [facility] [address] [place] [address] Dr. Jovanna Oneill Calcium [Mass/Vol] 8.7 mg/dL Normal 8.5-10.[address] [facility] Comment on above: Performed By: #### C MP, LIPID #### [facility] [address] [place] [address] Dr. Jovanna Oneill Chloride [Moles/Vol] 103 mmol/L Normal 98-107 [facility] Comment on above: Performed By: #### C MP, LIPID #### [facility] [address] [place] [address] Dr. Jovanna Oneill CO2 [Moles/Vol] 35.8 mmol/L Critically high 21.0-32.0 [facility] Comment on above: Performed By: #### C MP, LIPID #### [facility] [address] [place] [address] Dr. Jovanna Oneill Creatinine [Mass/Vol] 0.70 mg/dL Normal 0.55-1.02 [facility] Comment on above: Performed By: #### C MP, LIPID #### [facility] [address] [place] [address] Dr. Jovanna Oneill EGFR-AF ITALIAN >60 Normal >=60 [facility] Comment on above: Performed By: #### C MP, LIPID #### [facility] [address] [place] [address] Dr. Jovanna Oneill EGFR-NON AF ITALIAN >60 Normal >=60 [facility] Comment on above: Performed By: #### C MP, LIPID #### [facility] [address] [address] [address] Jovanna Oneill Globulin (S) [Mass/Vol] 3.2 g/dL Normal [facility] Comment on above: Performed By: #### C MP, LIPID #### [facility] [address] [address] [address] Jovanna Oneill Glucose [Mass/Vol] 86 mg/dL Normal 74-[address] [facility] Comment on above: Performed By: #### C MP, LIPID #### [facility] [address] [address] [address] Jovanna Oneill Potassium [Moles/Vol] 2.7 mmol/L Critically low 3.5-5.1 [facility] Comment on above: Performed By: #### C MP, LIPID #### [facility] [address] [address] [address] Jovanna Oneill Protein [Mass/Vol] 6.7 g/dL Normal 6.4-8.2 [facility] Comment on above: Performed By: #### C MP, LIPID #### [facility] [address] [address] [address] Jovanna Oneill Sodium [Moles/Vol] 141 mmol/L Normal 136-[address] [facility] Comment on above: Performed By: #### C MP, LIPID #### [facility] [address] [address] [address] Jovanna Oneill Urea nitrogen [Mass/Vol] 6.0 mg/dL Critically low 7.0-18.0 [facility] Comment on above: Performed By: #### C MP, LIPID #### [facility] [address] [address] [address] Jovanna Oneill Urea nitrogen/Creatinine [Mass ratio] 8.6 mg/mg Normal [facility] Comment on above: Performed By: #### C MP, LIPID #### [facility] [address] [address] [address] Jovanna Oneill US THYROIDon 09-12-2022 US THYROID EXAMINATION: US THYR OID HISTORY: Hypothyroidism COMPARISON: No relevant comparison available. [...] FRANCES AGUSTIN Date: 2022-09-12 11:52 Normal [facility] VITAMIN B12on 09-12-2022 Cobalamin (Vitamin B12) [Mass/Vol] 280.0 pg/mL Normal 193.0-986.0 [facility] Comment on above: Performed By: #### V ITB12 #### [facility] [address] [place] [address] CSPINE WO CONon 2 CT CSPINE WO CON EXAMINATION: CT CSPI NE WO CON HISTORY: Traumatic injury COMPARISON: CT [...] Date: 2022-08-24 18:11 Normal [facility] CT NECK ST W CONon 2 [...] Date: 2022-08-16 23:10 Normal [facility] CBC AUTO DIFFon 08-16-2022 BASO # 0.0 103/ul Normal 0.0-0.1 [facility] Comment on above: Performed By: #### C BC ####[facility] [address] [id number]. Jovanna Oneill Basophils/100 WBC (Bld) 0.2 % Normal 0.2-2.0 [facility] Comment on above: Performed By: #### C BC ####[facility] [address] [id number] Oneill EO # 0.1 103/ul Normal 0.0-0.7 [facility] Comment on above: Performed By: #### C BC ####[facility] [address] [id number] Oneill Eosinophils/100 WBC (Bld) 0.7 % Critically low 0.9-7.0 [facility] Comment on above: Performed By: #### C BC ####[facility] [address] [place], [place] [address]Dr. Jovanna Oneill Erythrocyte distribution width (RBC) [Ratio] 12.1 % Normal 11.0-15.0 [facility] Comment on above: Performed By: #### C BC ####[facility] [address] [place], [place] [address]Dr. Jovanna Oneill Hematocrit (Bld) [Volume fraction] 38.8 % Normal 36.0-48.0 [facility] Comment on above: Performed By: #### C BC ####[facility] [address] [place], [place] [address]Dr. Jovanna Oneill Hemoglobin (Bld) [Mass/Vol] 12.8 g/dL Normal 12.0-16.0 [facility] Comment on above: Performed By: #### C BC ####[facility] [address] [place], [place] [address]Dr. Jovanna Oneill IG # 0.06 10e3/ul Critically high 0.00-0.03 [facility] Comment on above: Performed By: #### C BC ####[facility] [address] [place], [place] [address]Dr. Jovanna Oneill IG % 0.4 % Normal 0.0-0.5 [facility] Comment on above: Performed By: #### C BC ####[facility] [address] [place], [place] [address]Dr. Jovanna Oneill LYMPH # 2.5 103/ul Normal 1.2-3.8 [facility] Comment on above: Performed By: #### C BC ####[facility] [address] [place], [place] [address]Dr. Jovanna Oneill Lymphocytes/100 WBC (Bld) 18.1 % Critically low 20.5-60.0 [facility] Comment on above: Performed By: #### C BC ####[facility] [address] [place], [place] [address]Dr. Jovanna Oneill MANUAL DIFF REQ NO Normal [facility] Comment on above: Performed By: #### C BC ####[facility] [address] [address]DrJhony Oneill MCH (RBC) [Entitic mass] 32.0 pg Normal 26.7-34.0 [facility] Comment on above: Performed By: #### C BC ####[facility] [address] [address]DrJhony Oneill MCHC (RBC) [Mass/Vol] 33.0 g/dL Normal 29.9-35.2 [facility] Comment on above: Performed By: #### C BC ####[facility] [address] [place], [place] [address]DrJhony Oneill MCV (RBC) [Entitic vol] 97.0 fL Normal 81.0-99.0 [facility] Comment on above: Performed By: #### C BC ####[facility] [address] [place], [place] [address]DrJhony Oneill MONO # 0.6 103/ul Normal 0.3-0.8 [facility] Comment on above: Performed By: #### C BC ####[facility] [address] [place], [place] [address]DrJhony Oneill Monocytes/100 WBC (Bld) 4.5 % Normal 1.7-12.0 [facility] Comment on above: Performed By: #### C BC ####[facility] [address] [place], [place] [address]DrJhony Oneill NEUT # 10.4 103/ul Critically high 1.4-6.5 [facility] Comment on above: Performed By: #### C BC ####[facility] [address] [place], [place] [address]DrJhony Oneill Neutrophils/100 WBC (Bld) 76.1 % Critically high 43.0-75.0 [facility] Comment on above: Performed By: #### C BC ####[facility] [address] [place], [place] [address]DrJhony Oneill Platelet mean volume (Bld) [Entitic vol] 10.9 fL Normal 9.5-13.5 [facility] Comment on above: Performed By: #### C BC ####[facility] [address] [id number]. Jovanna Oneill PLT 193 103/ul Normal 150-450 [facility] Comment on above: Performed By: #### C BC ####[facility] [address] [id number]. Jovanna Oneill RBC 4.00 106/ul Critically low 4.20-5.40 [facility] Comment on above: Performed By: #### C BC ####[facility] [address] [address]DrJhony Oneill WBC 13.7 103/ul Critically high 4.0-11.0 [facility] Comment on above: Performed By: #### C BC ####[facility] [address] [address]DrJhony Oneill FREE T4on 08-16-2022 Free T4 [Mass/Vol] 0.68 ng/dL Critically low 0.76-1.46 [facility] Comment on above: Performed By: #### L ACT #### [facility] [address] [place] [address] Dr. Jovanna Oneill HS-CRPon 08-16-2022 HS-CRP 1.04 mg/L Normal <=3.00 [facility] Comment on above: Performed By: #### L ACT #### [facility] [address] [address] [address] Jovanna Oneill PROF 14(COMP METB)on 022 Albumin [Mass/Vol] 3.5 g/dL Normal 3.4-5.[address] [facility] Comment on above: Performed By: #### V ITB12 #### [facility] [address] [address] [address] Jovanna Oneill Albumin/Globulin [Mass ratio] 1.1 {ratio} Normal [facility] Comment on above: Performed By: #### V ITB12 #### [facility] [address] [address] [address] Jovanna Oneill ALP [Catalytic activity/Vol] 82 U/L Normal 46-116 [facility] Comment on above: Performed By: #### V ITB12 #### [facility] [address] [address] [address] Jovanna Oneill ALT [Catalytic activity/Vol] 17 U/L Normal 14-59 [facility] Comment on above: Performed By: #### V ITB12 #### [facility] [address] [address] [address] Jovanna Oneill Anion gap [Moles/Vol] 9.6 mmol/L Normal [facility] Comment on above: Performed By: #### V ITB12 #### [facility] [address] [place] [address] Dr. Jovanna Oneill AST [Catalytic activity/Vol] 17 U/L Normal 15-37 [facility] Comment on above: Performed By: #### V ITB12 #### [facility] [address] [place] [address] Dr. Jovanna Oneill Bilirubin [Mass/Vol] 0.4 mg/dL Normal 0.2-1.0 [facility] Comment on above: Performed By: #### V ITB12 #### [facility] [address] [place] [address] Dr. Jovanna Oneill Calcium [Mass/Vol] 8.7 mg/dL Normal 8.5-10.[address] [facility] Comment on above: Performed By: #### V ITB12 #### [facility] [address] [address] [address] Jovanna Oneill Chloride [Moles/Vol] 105 mmol/L Normal 98-107 [facility] Comment on above: Performed By: #### V ITB12 #### [facility] [address] [address] [address] Jovanna Oneill CO2 [Moles/Vol] 30.9 mmol/L Normal 21.0-32.0 [facility] Comment on above: Performed By: #### V ITB12 #### [facility] [address] [place] [address] Dr. Jovanna Oneill Creatinine [Mass/Vol] 0.69 mg/dL Normal 0.55-1.02 [facility] Comment on above: Performed By: #### V ITB12 #### [facility] [address] [address] [address] Jovanna Oneill EGFR-AF ITALIAN >60 Normal >=60 [facility] Comment on above: Performed By: #### V ITB12 #### [facility] [address] [place] [address] Dr. Jovanna Oneill EGFR-NON AF ITALIAN >60 Normal >=60 [facility] Comment on above: Performed By: #### V ITB12 #### [facility] [address] [place] [address] Dr. Jovanna Oneill Globulin (S) [Mass/Vol] 3.1 g/dL Normal [facility] Comment on above: Performed By: #### V ITB12 #### [facility] [address] [place] [address] Dr. Jovanna Oneill Glucose [Mass/Vol] 84 mg/dL Normal 74-106 [facility] Comment on above: Performed By: #### V ITB12 #### [facility] [address] [place] [address] Dr. Jovanna Oneill Potassium [Moles/Vol] 3.5 mmol/L Normal 3.5-5.1 [facility] Comment on above: Performed By: #### V ITB12 #### [facility] [address] [place] [address] Dr. Jovanna Oneill Protein [Mass/Vol] 6.6 g/dL Normal 6.4-8.2 [facility] Comment on above: Performed By: #### V ITB12 #### [facility] [address] [place] [address] Dr. Jovanna Oneill Sodium [Moles/Vol] 142 mmol/L Normal 136-145 [facility] Comment on above: Performed By: #### V ITB12 #### [facility] [address] [address] [address] Jovanna Oneill Urea nitrogen [Mass/Vol] 7.0 mg/dL Normal 7.0-18.0 [facility] Comment on above: Performed By: #### V ITB12 #### [facility] [address] [address] [address] Jovanna Oneill Urea nitrogen/Creatinine [Mass ratio] 10.1 mg/mg Normal [facility] Comment on above: Performed By: #### V ITB12 #### [facility] [address] [place] [address] Dr. Jovanna Oneill PROF CHEM 8 (BAS METB)on Anion gap [Moles/Vol] 8.5 mmol/L Normal [facility] Comment on above: Performed By: #### L ACT #### [facility] [address] [place] [address] Dr. Jovanna Oneill Calcium [Mass/Vol] 8.3 mg/dL Critically low 8.5-10.1 [facility] Comment on above: Performed By: #### L ACT #### [facility] [address] [place] [address] Dr. Jovanna Oneill Chloride [Moles/Vol] 105 mmol/L Normal 98-107 [facility] Comment on above: Performed By: #### L ACT #### [facility] [address] [place] [address] Dr. Jovanna Oneill CO2 [Moles/Vol] 28.4 mmol/L Normal 21.0-32.0 [facility] Comment on above: Performed By: #### L ACT #### [facility] [address] [place] [address] Dr. Jovanna Oneill Creatinine [Mass/Vol] 0.72 mg/dL Normal 0.55-1.02 [facility] Comment on above: Performed By: #### L ACT #### [facility] [address] [place] [address] Dr. Jovanna Oneill EGFR-AF ITALIAN >60 Normal >=60 [facility] Comment on above: Performed By: #### L ACT #### [facility] [address] [address] [address] Jovanna Oneill EGFR-NON AF ITALIAN >60 Normal >=60 [facility] Comment on above: Performed By: #### L ACT #### [facility] [address] [address] [address] Jovanna Oneill Glucose [Mass/Vol] 242 mg/dL Critically high 74-106 [facility] Comment on above: Performed By: #### L ACT #### [facility] [address] [address] [address] Jovanna Oneill Potassium [Moles/Vol] 2.9 mmol/L Critically low 3.5-5.1 [facility] Comment on above: Performed By: #### L ACT #### [facility] [address] [address] [address] Jovanna Oneill Sodium [Moles/Vol] 138 mmol/L Normal 136-[address] [facility] Comment on above: Performed By: #### L ACT #### [facility] [address] [address] [address] Jovanna Oneill Urea nitrogen [Mass/Vol] 5.0 mg/dL Critically low 7.0-18.0 [facility] Comment on above: Performed By: #### L ACT #### [facility] [address] [address] [address] Jovanna Oneill Urea nitrogen/Creatinine [Mass ratio] 6.9 mg/mg Normal [facility] Comment on above: Performed By: #### L ACT #### [facility] [address] [address] [address] Jovanna Oneill TSHon 08-16-2022 TSH 4.977 uIU/mL Critically high 0.358-3.[address] [facility] Comment on above: Performed By: #### V ITB12 #### [facility] [address] [address] ABD/PELVIS WO CONon [...] Date: 2022-05-02 03:06 Normal [facility] DRUG SCREEN RAPID (URINE)on 05-02-2022 AMP Negative Normal NEGATIVE [facility] Comment on above: Performed By: #### L ACT #### [facility] [address] [place] [address] Dr. Jovanna Oneill BAR Negative Normal NEGATIVE [facility] Comment on above: Performed By: #### L ACT #### [facility] [address] [address] [address] Jovanna Oneill BUP Negative Normal NEGATIVE [facility] Comment on above: Performed By: #### L ACT #### [facility] [address] [address] [address] Jovanna Oneill BZO Negative Normal NEGATIVE [facility] Comment on above: Performed By: #### L ACT #### [facility] [address] [address] [address] Jovanna Oneill CARA Negative Normal NEGATIVE [facility] Comment on above: Performed By: #### L ACT #### [facility] [address] [place] [address] Dr. Jovanna Oneill CUT-OFFS SEE BELOW Normal [facility] Comment on above: Result Comment: AMP [...] By: #### L ACT #### [facility] [address] [place] [address] Dr. Jovanna Oneill DRUG CUT HEADER DRUG CLASS TEST SYST EM CUT-OFF CONCENTRATIONS ARE FOLLOWS: Normal [facility] Comment on above: Performed By: #### L ACT #### [facility] [address] [place] [address] Dr. Jovanna Oneill mAMP Negative Normal NEGATIVE [facility] Comment on above: Performed By: #### L ACT #### [facility] [address] [place] [address] Dr. Jovanna Oneill MTD Negative Normal NEGATIVE [facility] Comment on above: Performed By: #### L ACT #### [facility] [address] [place] [address] Dr. Jovanna Oneill OPI Positive Abnormal NEGATIVE [facility] Comment on above: Performed By: #### L ACT #### [facility] [address] [place] [address] Dr. Jovanna Oneill OXY Negative Normal NEGATIVE [facility] Comment on above: Performed By: #### L ACT #### [facility] [address] [place] [address] Dr. Jovanna Oneill PCP Negative Normal NEGATIVE [facility] Comment on above: Performed By: #### L ACT #### [facility] [address] [place] [address] Dr. Jovanna Oneill PPX Negative Normal NEGATIVE [facility] Comment on above: Performed By: #### L ACT #### [facility] [address] [address] [address] Jovanna Oneill TCA Negative Normal NEGATIVE [facility] Comment on above: Performed By: #### L ACT #### [facility] [address] [address] [address] Jovanna Oneill THC Positive Abnormal NEGATIVE [facility] Comment on above: Performed By: #### L ACT #### [facility] [address] [address] [address] Jovanna Oneill ER URINE PROFILEon 2 Bilirubin Ql (U) Negative Normal NEGATIVE [facility] Comment on above: Performed By: #### L ACT #### [facility] [address] [place] [address] Dr. Jovanna Oneill Clarity (U) CLEAR Normal CLEAR [facility] Comment on above: Performed By: #### L ACT #### [facility] [address] [place] [address] Dr. Jovanna Oneill Color (U) LT. YELLOW Normal YELLOW [facility] Comment on above: Performed By: #### L ACT #### [facility] [address] [place] [address] Dr. Jovanna Oneill ERUAHD A micrscopic examina tion will be performed if indicated. Normal [facility] Comment on above: Performed By: #### L ACT #### [facility] [address] [place] [address] Dr. Jovanna Oneill Glucose Ql (U) Negative Normal NEGATIVE [facility] Comment on above: Performed By: #### L ACT #### [facility] [address] [address] [address] Jovanna Oneill Hemoglobin Ql (U) Negative Normal NEGATIVE [facility] Comment on above: Performed By: #### L ACT #### [facility] [address] [place] [address] Dr. Jovanna Oneill Ketones Ql (U) Negative Normal NEGATIVE [facility] Comment on above: Performed By: #### L ACT #### [facility] [address] [place] [id number] Dr. Jovanna Oneill LEUKOCYTES Negative Normal NEGATIVE [facility] Comment on above: Performed By: #### L ACT #### [facility] [address] [place] [address] Dr. Jovanna Oneill Nitrite Ql (U) Negative Normal NEGATIVE [facility] Comment on above: Performed By: #### L ACT #### [facility] [address] [place] [address] Dr. Jovanna Oneill pH (U) 6.0 [pH] Normal 5-9 [facility] Comment on above: Performed By: #### L ACT #### [facility] [address] [place] [address] Dr. Jovanna Oneill SPEC GRAVITY <=1.005 Abnormal 1.005-<=1.02 5 [facility] Comment on above: Performed By: #### L ACT #### [facility] [address] [place] [address] Dr. Jovanna Oneill UA PROTEIN Negative Normal NEGATIVE/ TRACE [facility] Comment on above: Performed By: #### L ACT #### [facility] [address] [place] [address] Dr. Jovanna Oneill UR MICRO IND NOT INDICATED Normal [facility] Comment on above: Performed By: #### L ACT #### [facility] [address] [place] [address] Dr. Jovanna Oneill Urobilinogen Qn (U) 0.2 {Isabella'U}/dL Normal 0.2 - 1. 0 [facility] Comment on above: Performed By: #### L ACT #### [facility] [address] [place] [address] Dr. Jovanna Oneill CBC AUTO DIFFon 04-20-2022 BASO # 0.0 103/ul Normal 0.0-0.1 [facility] Comment on above: Performed By: #### L ACT #### [facility] [address] [place] [address] Dr. Jovanna Oneill Basophils/100 WBC (Bld) 0.1 % Critically low 0.2-2.0 [facility] Comment on above: Performed By: #### L ACT #### [facility] [address] [place] [address] Dr. Jovanna Oneill EO # 0.0 103/ul Normal 0.0-0.7 [facility] Comment on above: Performed By: #### L ACT #### [facility] [address] [place] [address] Dr. Jovanna Oneill Eosinophils/100 WBC (Bld) 0.1 % Critically low 0.9-7.0 [facility] Comment on above: Performed By: #### L ACT #### [facility] [address] [place] [address] Dr. Jovanna Oneill Erythrocyte distribution width (RBC) [Ratio] 12.6 % Normal 11.0-15.0 [facility] Comment on above: Performed By: #### L ACT #### [facility] [address] [place] [address] Dr. Jovanna Oneill Hematocrit (Bld) [Volume fraction] 38.8 % Normal 36.0-48.0 [facility] Comment on above: Performed By: #### L ACT #### [facility] [address] [place] [address] Dr. Jovanna Oneill Hemoglobin (Bld) [Mass/Vol] 12.6 g/dL Normal 12.0-16.0 [facility] Comment on above: Performed By: #### L ACT #### [facility] [address] [place] [address] Dr. Jovanna Oneill IG # 0.13 10e3/ul Critically high 0.00-0.03 [facility] Comment on above: Performed By: #### L ACT #### [facility] [address] [place] [address] Dr. Jovanna Oneill IG % 1.0 % Critically high 0.0-0.5 [facility] Comment on above: Performed By: #### L ACT #### [facility] [address] [place] [address] Dr. Jovanna Oneill LYMPH # 1.1 103/ul Critically low 1.2-3.8 [facility] Comment on above: Performed By: #### L ACT #### [facility] [address] [place] [address] Dr. Jovanna Oneill Lymphocytes/100 WBC (Bld) 8.3 % Critically low 20.5-60.0 [facility] Comment on above: Performed By: #### L ACT #### [facility] [address] [place] [address] Dr. Jovanna Oneill MANUAL DIFF REQ NO Normal [facility] Comment on above: Performed By: #### L ACT #### [facility] [address] [place] [address] Dr. Jovanna Oneill MCH (RBC) [Entitic mass] 31.0 pg Normal 26.7-34.0 [facility] Comment on above: Performed By: #### L ACT #### [facility] [address] [place] [address] Dr. Jovanna Oneill MCHC (RBC) [Mass/Vol] 32.5 g/dL Normal 29.9-35.2 [facility] Comment on above: Performed By: #### L ACT #### [facility] [address] [place] [address] Dr. Jovanna Oneill MCV (RBC) [Entitic vol] 95.3 fL Normal 81.0-99.0 [facility] Comment on above: Performed By: #### L ACT #### [facility] [address] [place] [address] Dr. Jovanna Oneill MONO # 0.8 103/ul Normal 0.3-0.8 [facility] Comment on above: Performed By: #### L ACT #### [facility] [address] [place] [address] Dr. Jovanna Oneill Monocytes/100 WBC (Bld) 5.8 % Normal 1.7-12.0 [facility] Comment on above: Performed By: #### L ACT #### [facility] [address] [place] [address] Dr. Jovanna Oneill NEUT # 11.4 103/ul Critically high 1.4-6.5 [facility] Comment on above: Performed By: #### L ACT #### [facility] [address] [address] [address] Jovnana Oneill Neutrophils/100 WBC (Bld) 84.7 % Critically high 43.0-75.0 [facility] Comment on above: Performed By: #### L ACT #### [facility] [address] [address] [address] Jovanna Oneill Platelet mean volume (Bld) [Entitic vol] 10.1 fL Normal 9.5-13.5 [facility] Comment on above: Performed By: #### L ACT #### [facility] [address] [address] [address] Jovanna Oneill PLT 205 103/ul Normal 150-450 [facility] Comment on above: Performed By: #### L ACT #### [facility] [address] [address] [address] Jovanna Oneill RBC 4.07 106/ul Critically low 4.20-5.40 [facility] Comment on above: Performed By: #### L ACT #### [facility] [address] [address] [address] Jovanna Oneill WBC 13.4 103/ul Critically high 4.0-11.0 [facility] Comment on above: Performed By: #### L ACT #### [facility] [address] [address] [address] Jovanna Oneill DRUG SCREEN RAPID (URINE)on 04-20-2022 AMP Negative Normal NEGATIVE [facility] Comment on above: Performed By: #### U MICRO, ERUR, DRUGRPD ####[facility] [address] [address]DrJhony Oneill BAR Negative Normal NEGATIVE [facility] Comment on above: Performed By: #### U MICRO, ERUR, DRUGRPD ####[facility] [address] [id number] Oneill BUP Negative Normal NEGATIVE [facility] Comment on above: Performed By: #### U MICRO, ERUR, DRUGRPD ####[facility] [address] [address]Dr. Jovanna Oneill BZO Negative Normal NEGATIVE [facility] Comment on above: Performed By: #### U MICRO, ERUR, DRUGRPD ####[facility] [address] [address]Dr. Jovanna Oneill CARA Negative Normal NEGATIVE [facility] Comment on above: Performed By: #### U MICRO, ERUR, DRUGRPD ####[facility] [address] [address]Dr. Jovanna Oneill CUT-OFFS SEE BELOW Normal [facility] Comment on above: Result Comment: AMP [...] #### U MICRO, ERUR, DRUGRPD ####[facility] [address] [place], [place] [address]Dr. Jovanna Oneill DRUG CUT HEADER DRUG CLASS TEST SYST EM CUT-OFF CONCENTRATIONS ARE FOLLOWS: Normal [facility] Comment on above: Performed By: #### U MICRO, ERUR, DRUGRPD ####[facility] [address] [address]Dr. Jovanna Oneill mAMP Negative Normal NEGATIVE [facility] Comment on above: Performed By: #### U MICRO, ERUR, DRUGRPD ####[facility] [address] [address]Dr. Jovanna Oneill MTD Negative Normal NEGATIVE [facility] Comment on above: Performed By: #### U MICRO, ERUR, DRUGRPD ####[facility] [address] [address]Dr. Jovanna Oneill OPI Positive Abnormal NEGATIVE [facility] Comment on above: Performed By: #### U MICRO, ERUR, DRUGRPD ####[facility] [address] [address]Dr. Yilan Oneill OXY Negative Normal NEGATIVE [facility] Comment on above: Performed By: #### U MICRO, ERUR, DRUGRPD ####[facility] [address] [place], [place] [address]Dr. Jovanna Oneill PCP Negative Normal NEGATIVE [facility] Comment on above: Performed By: #### U MICRO, ERUR, DRUGRPD ####[facility] [address] [place], [place] [address]Dr. Jovanna Oneill PPX Negative Normal NEGATIVE [facility] Comment on above: Performed By: #### U MICRO, ERUR, DRUGRPD ####[facility] [address] [place], [place] [address]Dr. Jovanna Oneill TCA Negative Normal NEGATIVE [facility] Comment on above: Performed By: #### U MICRO, ERUR, DRUGRPD ####[facility] [address] [place], [place] [address]Dr. Jovanna Oneill THC Positive Abnormal NEGATIVE [facility] Comment on above: Performed By: #### U MICRO, ERUR, DRUGRPD ####[facility] [address] [place], [place] [address]Dr. Jovanna Oneill ER URINE PROFILEon 2 Bilirubin Ql (U) Negative Normal NEGATIVE [facility] Comment on above: Performed By: #### U MICRO, ERUR, DRUGRPD ####[facility] [address] [place], [place] [address]Dr. Jovanna Oneill Clarity (U) CLEAR Normal CLEAR [facility] Comment on above: Performed By: #### U MICRO, ERUR, DRUGRPD ####[facility] [address] [place], [place] [address]Dr. Rosaliareagan Oneill Color (U) LT. YELLOW Normal YELLOW [facility] Comment on above: Performed By: #### U MICRO, ERUR, DRUGRPD ####[facility] [address] [address]Dr. Jovanna Oneill ERUAHD A micrscopic examina tion will be performed if indicated. Normal [facility] Comment on above: Performed By: #### U MICRO, ERUR, DRUGRPD ####[facility] [address] [address]Dr. Jovanna Oneill Glucose Ql (U) >1000 Abnormal NEGATIVE [facility] Comment on above: Performed By: #### U MICRO, ERUR, DRUGRPD ####[facility] [address] [address]Dr. Jovanna Oneill Hemoglobin Ql (U) Negative Normal NEGATIVE [facility] Comment on above: Performed By: #### U MICRO, ERUR, DRUGRPD ####[facility] [address] [address]Dr. Jovanna Oneill Ketones Ql (U) Negative Normal NEGATIVE [facility] Comment on above: Performed By: #### U MICRO, ERUR, DRUGRPD ####[facility] [address] [place], [place] [address]Dr. Jovanna Oneill LEUKOCYTES Negative Normal NEGATIVE [facility] Comment on above: Performed By: #### U MICRO, ERUR, DRUGRPD ####[facility] [address] [place], [place] [address]Dr. Jovanna Oneill Nitrite Ql (U) Negative Normal NEGATIVE [facility] Comment on above: Performed By: #### U MICRO, ERUR, DRUGRPD ####[facility] [address] [address]Dr. Jovanna Oneill pH (U) 6.5 [pH] Normal 5-9 [facility] Comment on above: Performed By: #### U MICRO, ERUR, DRUGRPD ####[facility] [address] [address]Dr. Jovanna Oneill Protein (U) [Mass/Vol] 30 mg/dL Abnormal NEGATIVE/ TRACE [facility] Comment on above: Performed By: #### U MICRO, ERUR, DRUGRPD ####[facility] [address] [address]DrJhony Oneill SPEC GRAVITY 1.015 Normal 1.005-<=1.02 5 [facility] Comment on above: Performed By: #### U MICRO, ERUR, DRUGRPD ####[facility] [address] [address]Dr. Jovanna Oneill UR MICRO IND INDICATED Normal [facility] Comment on above: Performed By: #### U MICRO, ERUR, DRUGRPD ####[facility] [address] [address]Dr. Jovanna Oneill Urobilinogen Qn (U) 1.0 {Isabella'U}/dL Normal 0.2 - 1. 0 [facility] Comment on above: Performed By: #### U MICRO, ERUR, DRUGRPD ####[facility] [address] [address]DrJhony Oneill LACTATE/LACTIC ACIDon 2021 Lactate [Moles/Vol] 1.7 mmol/L Normal 0.4-1.9 [facility] Comment on above: Performed By: #### L ACT #### [facility] [address] [place] [address] Dr. Jovanna Oneill PROF 14(COMP METB)on 022 Albumin [Mass/Vol] 3.4 g/dL Normal 3.4-5.[address] [facility] Comment on above: Performed By: #### V ITB12 #### [facility] [address] [place] [address] Dr. Jovanna Oneill Albumin/Globulin [Mass ratio] 1.1 {ratio} Normal [facility] Comment on above: Performed By: #### V ITB12 #### [facility] [address] [place] [address] Dr. Jovanna Oneill ALP [Catalytic activity/Vol] 99 U/L Normal 46-116 [facility] Comment on above: Performed By: #### V ITB12 #### [facility] [address] [address] [address] Jovanna Oneill ALT [Catalytic activity/Vol] 32 U/L Normal 14-59 [facility] Comment on above: Performed By: #### V ITB12 #### [facility] [address] [place] [address] Dr. Jovanna Oneill Anion gap [Moles/Vol] 10.0 mmol/L Normal [facility] Comment on above: Performed By: #### V ITB12 #### [facility] [address] [address] [address] Jovanna Oneill AST [Catalytic activity/Vol] 38 U/L Critically high 15-37 [facility] Comment on above: Performed By: #### V ITB12 #### [facility] [address] [place] [address] Dr. Jovanna Oneill Bilirubin [Mass/Vol] 0.8 mg/dL Normal 0.2-1.0 [facility] Comment on above: Performed By: #### V ITB12 #### [facility] [address] [place] [address] Dr. Jovanna Oneill Calcium [Mass/Vol] 8.1 mg/dL Critically low 8.5-10.1 [facility] Comment on above: Performed By: #### V ITB12 #### [facility] [address] [place] [address] Dr. Jovanna Oneill Chloride [Moles/Vol] 102 mmol/L Normal 98-107 [facility] Comment on above: Performed By: #### V ITB12 #### [facility] [address] [place] [address] Dr. Jovanna Oneill CO2 [Moles/Vol] 31.1 mmol/L Normal 21.0-32.0 [facility] Comment on above: Performed By: #### V ITB12 #### [facility] [address] [place] [address] Dr. Jovanna Oneill Creatinine [Mass/Vol] 0.78 mg/dL Normal 0.55-1.02 [facility] Comment on above: Performed By: #### V ITB12 #### [facility] [address] [address] [address] Jovanna Oneill EGFR-AF ITALIAN >60 Normal >=60 [facility] Comment on above: Performed By: #### V ITB12 #### [facility] [address] [place] [address] Dr. Jovanna Oneill EGFR-NON AF ITALIAN >60 Normal >=60 [facility] Comment on above: Performed By: #### V ITB12 #### [facility] [address] [address] [address] Jovanna Oneill Globulin (S) [Mass/Vol] 3.2 g/dL Normal [facility] Comment on above: Performed By: #### V ITB12 #### [facility] [address] [place] [address] Dr. Jovanna Oneill Glucose [Mass/Vol] 251 mg/dL Critically high 74-106 [facility] Comment on above: Performed By: #### V ITB12 #### [facility] [address] [address] [address] Jovanna Oneill Potassium [Moles/Vol] 3.1 mmol/L Critically low 3.5-5.1 [facility] Comment on above: Performed By: #### V ITB12 #### [facility] [address] [place] [address] Dr. Jovanna Oneill Protein [Mass/Vol] 6.6 g/dL Normal 6.4-8.2 [facility] Comment on above: Performed By: #### V ITB12 #### [facility] [address] [place] [address] Dr. Jovanna Oneill Sodium [Moles/Vol] 140 mmol/L Normal 136-145 [facility] Comment on above: Performed By: #### V ITB12 #### [facility] [address] [place] [address] Dr. Jovanna Oneill Urea nitrogen [Mass/Vol] 8.0 mg/dL Normal 7.0-18.0 [facility] Comment on above: Performed By: #### V ITB12 #### [facility] [address] [address] [address] Jovanna Oneill Urea nitrogen/Creatinine [Mass ratio] 10.3 mg/mg Normal [facility] Comment on above: Performed By: #### V ITB12 #### [facility] [address] [address] [address] Jovanna Oneill TROPONIN, HIGH SENSITIVITYon 04-20-2022 HSTROP 13.8 pg/mL Normal 4.0-51.3 [facility] Comment on above: Result Comment: CUT- OFF POINTS HAVE BEEN ESTABLISHED BASED ON THE FOURTH UNIVERSAL DEFINITIONS OF MYOCARDIAL INFARCTION. THE UPPER REFERENCE LIMIT (URL) OF TROPONIN, DEFINED THE 99TH PERCENTILE OF cTnI DISTRIBUTION IN A REFERENCE POPULATION, HAS BEEN CONFIRMED THE DECISION THRESHOLD FOR [place] DIAGNOSIS. Performed By: #### V ITB12 #### [facility] [address] [place] [address] Dr. Jovanna Oneill URINE MICROSCOPIC ONLYon BACTERIA TRACE Abnormal NONE SEEN [facility] Comment on above: Performed By: #### U MICRO, ERUR, DRUGRPD ####[facility] [address] [address]Dr. Jovanna Oneill Bacteria identified Cx Nom (U) NOT INDICATED Normal [facility] Comment on above: Performed By: #### U MICRO, ERUR, DRUGRPD ####[facility] [address] [address]Dr. Jovanna Oneill CAST SEEN Abnormal NONE SEEN [facility] Comment on above: Performed By: #### U MICRO, ERUR, DRUGRPD ####[facility] [address] [address]Dr. Jovanna Oneill Crystals LM Nom (Urine sed) NONE SEEN Normal NONE SEEN [facility] Comment on above: Performed By: #### U MICRO, ERUR, DRUGRPD ####[facility] [address] [address]Dr. Jovanna Oneill Epithelial cells LM Ql (Urine sed) FEW Abnormal NONE SEEN /RARE [facility] Comment on above: Performed By: #### U MICRO, ERUR, DRUGRPD ####[facility] [address] [id number]. Jovanna Oneill HYALINE CAST FEW Normal [facility] Comment on above: Performed By: #### U MICRO, ERUR, DRUGRPD ####[facility] [address] [id number]. Jovanna Oneill MUCOUS NONE SEEN Normal NONE SEEN [facility] Comment on above: Performed By: #### U MICRO, ERUR, DRUGRPD ####[facility] [address] [id number]. Jovanna Oneill RBC 0-2 Normal 0-2 [facility] Comment on above: Performed By: #### U MICRO, ERUR, DRUGRPD ####[facility] [address] [address]Dr. Jovanna Oneill WBC 0-2 Abnormal NONE SEEN [facility] Comment on above: Performed By: #### U MICRO, ERUR, DRUGRPD ####[facility] [address] [id number]. Jovanna Oneill XR CHEST 1 Von 04-20-2022 [...] Ayaka LEON Date: 2022-04-20 02:33 Normal [facility] XR ANKLE RT MIN 3 VIEWSon [...] by: KOBE HICKEY Date: 2022-03-26 09:41 Normal [facility] Vital Signs Date Time Vital Sign Value Performing Clinician Facility 03-18-2025 13:12-0400 Body height 154.9 cm Evans Thomas DPM Work Phone: [facility] 03-18-2025 13:12-0400 Body mass index (BMI) [Ratio] 20.6 kg/m2 Evans Thomas DPM Work Phone: [facility] 03-18-2025 13:12-0400 Body weight 49.44 kg Evans Thomas DPM Work Phone: [facility] 08-13-2024 12:24-0400 Body height 154.94 cm PHYSICIAN NO [facility] 08-13-2024 12:24-0400 Body temperature 97.8 [degF] PHYSICIAN NO [facility] 08-13-2024 12:24-0400 Body weight 48 kg PHYSICIAN NO [facility] 08-13-2024 12:24-0400 Diastolic blood pressure 98 mm[Hg] PHYSICIAN NO [facility] 08-13-2024 12:24-0400 Heart rate 84 /min PHYSICIAN NO [facility] 08-13-2024 12:24-0400 Respiratory rate 18 /min PHYSICIAN NO [facility] 08-13-2024 12:24-0400 SaO2% (BldA) [Mass fraction] 98 % PHYSICIAN NO [facility] 08-13-2024 12:24-0400 Systolic blood pressure 160 mm[Hg] PHYSICIAN NO [facility] Encounters Encounter Date Encounter Type Care Provider Facility Start: 04-09-2025 End: 04-13-2025 Evaluation and management of inpatient ASMITA PALOMINO [facility] Start: 04-08-2025 End: 04-08-2025 ambulatory ROSCOE BE [facility] Start: 03-18-2025 End: 03-18-2025 Bamboo flowsheet Evans Thomas DPM Work Phone: [facility] Start: 03-18-2025 End: 03-18-2025 Bamboo flowsheet Evans Thomas DPM Work Phone: [facility] Start: 03-18-2025 End: 03-18-2025 Office outpatient visit 25 minutes Evans Thomas DPM Work Phone: [facility] Comment on above: Contusion of left gr eat toe with damage to nail, initial encounter (Primary Dx); Onychodystrophy; Left foot pain Start: 03-18-2025 End: 03-18-2025 ambulatory EVANS THOMAS Not Available Start: 03-11-2025 End: 03-11-2025 ambulatory YUKI FREEMANDebbie [facility] Start: 08-13-2024 End: 08-13-2024 Emergency department patient visit PHYSICIAN ABIGAIL [facility] Work Phone: Start: 07-10-2024 End: 07-11-2024 ambulatory Vikram Mckenna MD Facility:[facility] Start: 06-30-2024 End: 07-02-2024 ambulatory [facility] Start: 06-09-2024 End: 06-11-2024 ambulatory [facility] Start: 05-26-2024 ambulatory [facility] Start: 05-26-2024 Encounter for other preprocedural examination [facility] Start: 05-22-2024 Non-patient / Non-visit PHYSICIAN NO [facility] Work Phone: Start: 03-23-2023 End: 03-23-2023 ambulatory ABDULKADIR WALTON [...] SHAMMO Facility:[facility] Start: 11-01-2022 ambulatory TATUM SHAMMO Facility:[facility] Start: 10-08-2022 End: 10-08-2022 ambulatory TATUM SHAMMO Facility:[facility] Start: 10-06-2022 ambulatory Woo FALCON Facility :[facility] Start: 10-03-2022 End: 10-04-2022 ambulatory TATUM SHAMMO Facility:[facility] Start: 09-14-2022 Encounter for genera l adult medical examination without abnormal findings TATUM SHAMMO [facility] Start: 09-12-2022 End: 09-13-2022 ambulatory TATUM SHAMMO Facility:[facility] Start: 09-12-2022 End: 09-13-2022 Encounter for general adult medical examination without abnormal findings TATUM SHAMMO Facility:[facility] Start: 08-29-2022 End: 08-30-2022 ambulatory TATUM SHAMMO Facility:[facility] Start: 08-24-2022 End: 08-24-2022 ambulatory TATUM SHAMMO Facility:[facility] Start: 08-16-2022 End: 08-17-2022 ambulatory TATUM SHAMMO Facility:[facility] Start: 08-16-2022 End: 08-17-2022 ambulatory CAROL ANN ALIA Facility:[facility] Start: 06-22-2022 End: 06-22-2022 ambulatory [facility] Facility:[facility] Start: 05-02-2022 End: 05-02-2022 ambulatory [facility] Facility:[facility] Start: 04-20-2022 End: 04-20-2022 ambulatory CAROL ANN ALIA Facility:[facility] Start: 03-26-2022 End: 03-26-2022 ambulatory DARRIN PEREZ . Facility: Plan of Treatment Date Care Activity Detail Author Start: 04-01-2025 End: 04-01-2025 Patient encounter procedure 04/01/2025 1:15 PM EDT Office Visit [facility] [address] [place] [id number] Evans Thomas DPM [address], [place] [id number] [facility] Start: 03-18-2025 End: 03-18-2025 Patient encounter procedure 03/18/2025 1:15 PM EDT Office Visit [facility] [address] [place] [phone] Evans Thomas DPM [address] [place], [place] [id number] Arrived [facility] Comment on above: Arrived Patient Education Managing acute pain at home [facility] Work Phone: Patient referral [facility] Work Phone: Payers Date Payer Category Payer Self-pay 2024 Unknown 2021 Medicaid (Managed Care) CRAIG FERNÁNDEZ .[id number] 1973 Unknown [id number] ..840.1.865394.3.579.2. 727 1973 Unknown [id number] 2..840.1.953755.3.579.2. 727 1973 Unknown [id number] ..840.1.067843.3.579.2. 593 1973 Unknown [id number] 2.16.840.1.699432.3.579.2. 593 1973 Unknown [id number] 2.16.840.1.576532.3.579.2. 593 1973 Unknown [id number] 2.16.840.1.597901.3.579.2. 593 1973 Unknown [id number] 2.16.840.1.257166.3.579.2. 593 1973 Unknown [id number] 2.16.840.1.479339.3.579.2. 593 1973 Unknown [id number] 2.16.840.1.538862.3.579.2. 593 1973 Unknown [id number] 2.16.840.1.288899.3.579.2. 593 1973 Unknown [id number] 2.16.840.1.807582.3.579.2. 593 1973 Unknown [id number] 2.16.840.1.504894.3.579.2. 593 1973 Unknown [id number] 2.16.840.1.655893.3.579.2. 593 1973 Unknown [id number] 2.16.840.1.115432.3.579.2. 593 1973 Unknown [id number] 2.16.840.1.032208.3.579.2. 593 1973 Unknown [id number] 2.16.840.1.672330.3.579.2. 593 1973 Unknown [id number] 2.16.840.1.349902.3.579.2. 593 1973 Unknown [id number] 2.16.840.1.778757.3.579.2. 593 1973 Unknown [id number] 2.16.840.1.844780.3.579.2. 593 1973 Unknown [id number] 2.16.840.1.325527.3.579.2. 593 1973 Unknown [id number] 2.16.840.1.590404.3.579.2. 593 1973 Unknown [id number] 2.16.840.1.432400.3.579.2. 593 1973 Unknown [id number] 2.16.840.1.598689.3.579.2. 593 1973 Unknown [id number] 2.16.840.1.370875.3.579.2. 593 1973 Unknown [id number] 2.16.840.1.881504.3.579.2. 174 1973 Unknown [id number] 2.16.840.1.345661.3.579.2. 174 1973 Unknown [id number] 2.16.840.1.323059.3.579.2. 174 1973 Unknown [id number] 2.16.840.1.263258.3.579.2. 174 1973 Unknown [id number] 2.16.840.1.737707.3.579.2. 174 1973 Unknown [id number] 2.16.840.1.847942.3.579.2. 196 1973 Unknown [id number] 2.16.840.1.176947.3.579.2. 1259 1959 Self-pay [id number] 1959 Unknown [id number] 1959 Unknown [id number] Unknown [id number] 2.16.840.1.296413.3.579.2. 531 Social History Date Type Detail Facility Start: 08-13-2024 Tobacco smoking stat [facility] Smoker (finding) [facility] Start: 1975 Sex Assigned At Female [facility] consumption unknown [facility] Start: 1975 Sex assigned at Not on file [facility] Gender identity Not on file [facility] are Start: 03-18-2025 Tobacco [facility] Sm[facility] tobacco daily [facility] History of tobacco use Cigarette Smoker [facility] Start: 03-18-2025 Tobacco use and exposure Smokeless tobacco non-user [facility] Start: 03-18-2025 Alcoholic beverage intake Ex-drinker (finding) [facility] Clinical Notes 06-22-2022 to 04-16-2025 Evans Thomas, FEDERICO - 03/18/2025 1:15 PM EDT Note Date & Type Note Facility 04-16-2025 Note Message left for pat ient to call and schedule an EGD for stent removal with Dr. Roscoe Be in 3 weeks from previous procedure on 04/08/25. [facility] 04-13-2025 Note Hospital Medicine Discharge Summary Final Discharge Diagnosis: Post ERCP pancreatitis Nausea and vomiting secondary to acute pancreatitis Hypokalemia Hypomagnesemia Hypocalcemia Essential hypertension NSTEMI likely type II demand ischemia COPD Tobacco use disorder Severe protein calorie malnutrition Admission Diagnosis: Acute pancreatitis due to systemic disease [K85.90] Hospital course: Kati Thorne is an 49 y.o. female admitted from [facility] presented with uncontrolled ongoing abdominal pain mainly in the upper abdomen described as continuous sharp worse with eating radiating to back associated with persistent nausea vomiting had intermittent dyspepsia denies hematemesis blood in bowels coffee-ground emesis had constipation and had not moved bowel movements in past 3 days denies any dysuria hematuria fever chills chest pains. Patient was discharged from [facility] on 04/08/2025 after undergoing ERCP with biliary and pancreatic stent placement sphincterotomy. The findings of the ERCP showed diffusely dilated common bile duct with papillary stenosis and low-grade distal common bile duct stricture requiring biliary sphincterotomy followed by balloon dilatation of the distal common bile duct stricture biopsy was also obtained and also she noted was slightly prominent pancreatic duct with no stricture underwent pancreatic stent,. She had a CT scan done on 04/08/2025 showed acute pancreatitis without necrosis stents in common bile duct and pancreatic duct, she was given fentanyl and an Zofran she had labs done at [place] which showed WBC 25.6 hemoglobin 15.4 hematocrit 44.5 platelets 322 she had 89's percent segments absolute neutrophil count was 22.78 her potassium was 3.3 sodium 140 chloride 100 bicarb 28 creatinine 0.59 GFR estimated was more than 60 total bilirubin 1.1 calcium 9.3 lactate 2 glucose 178 troponin were 102 with peak to 221.5 and lipase was 1743 ALT was 20 Patient was started on IV fluids, pain regimen was started. GI was consulted. Patient had overall improvement with normalization of BUN, amylase and lipase and vitals were stable. Bowel regimen was added for constipation. Electrolytes were supplemented. Patient improved clinically, discharged home in stable condition. Patient tolerating low-fat diet at the time of discharge. Patient is advised close follow-up with GI after discharge. Surgical, Invasive or Diagnostic Procedures Done During Admission: None Consultations During Admission: Gastroenterology Dear MD Spivey Stephanie is advised to follow up with you within 1-2 weeks. Items to follow up in ambulatory setting: Follow-up with GI for stent removal Follow-up with: Gastroenterology Scheduled appointments: Future Appointments Date Time Provider Department Center 06/09/2025 11:30 AM Anabella Rodriguez CNP [facility] Your medication list START taking these medications Instructions Last Dose Given Next Dose Due calcium carbonate 200 mg calcium (500 mg) chewable tablet Commonly known as: Tums Chew 1 tablet (500 mg) two times daily for 4 days. magnesium oxide 400 mg (241.3 mg magnesium) tablet Commonly known as: Mag-Ox Take 1 tablet (400 mg) by mouth every 8 (eight) hours for 12 doses. metoprolol tartrate 25 mg tablet Commonly known as: Lopressor Take 1 tablet (25 mg) by mouth two times daily for 195 doses. nicotine 14 mg/24 hr patch Commonly known as: Nicoderm CQ Place 1 patch on the skin 1 (one) time each day at the same time for 5 days. polyethylene glycol 17 gram/dose powder Commonly known as: Glycolax Take 17 g by mouth in the morning for 10 days. potassium chloride CR 10 mEq ER tablet Commonly known as: Klor-Con M10 Take 2 tablets (20 mEq) by mouth two times daily for 4 days. Do not crush or chew. CHANGE how you take these medications Instructions Last Dose Given Next Dose Due pantoprazole 40 mg EC tablet Commonly known as: ProtoNix What changed: when to take this Take 1 tablet (40 mg) by mouth two times daily. Do not crush, chew, or split. CONTINUE taking these medications Instructions Last Dose Given Next Dose Due albuterol 90 mcg/actuation inhaler gabapentin 300 mg capsule Commonly known as: Neurontin levothyroxine 25 mcg tablet Commonly known as: Synthroid, Levoxyl Symbicort 80-4.5 mcg/actuation inhaler Generic drug: budesonide-formoteroL Where to Get Your Medications These medications were sent to [facility] [address] [place] [address] [place] [address], [facility] [address] calcium carbonate 200 mg calcium (500 mg) chewable tablet magnesium oxide 400 mg (241.3 mg magnesium) tablet metoprolol tartrate 25 mg tablet nicotine 14 mg/24 hr patch pantoprazole 40 mg EC tablet polyethylene glycol 17 gram/dose powder potassium chloride CR 10 mEq ER tablet Kati has No Known Allergies. Disposition: (more content not included)... [facility] 04-13-2025 Note Gastroenterology/Hep atology Progress Note IDENTIFYING DATA PATIENT: Kati Thorne ADMIT DATE: 04/09/2025 TIME OF EVALUATION: 04/13/2025 8:55 AM Reason for Consult: Post ERCP pancreatitis Admitting Physician: Amarjit Iqbal MD SUBJECTIVE/INTERVAL HISTORY Kati Thorne's overnight events were reviewed. Patient seen and evaluated, resting in bed. She reports continued generalized abdominal pain, which has significantly improved since admission. Currently tolerating a regular diet without nausea or vomiting. OBJECTIVE MEDICATIONS SCHEDULED: calcium carbonate, 500 mg, oral, BID heparin (porcine), 5,000 Units, subcutaneous, BID levothyroxine, 25 mcg, oral, Daily before breakfast metoprolol tartrate, 25 mg, oral, BID mometasone-formoterol, 1 puff, inhalation, BID nicotine, 1 patch, transdermal, Daily nitroglycerin, 1 patch, transdermal, Daily pantoprazole, 40 mg, intravenous, q12h MISTY polyethylene glycol, 17 g, oral, BID PRNs: albuterol, 2 puff, q6h PRN bisacodyl, 10 mg, Daily PRN oxyCODONE, 10 mg, q6h PRN oxyCODONE, 5 mg, q6h PRN sodium chloride, 10 mL, q8h PRN trimethobenzamide, 200 mg, q6h PRN Physical VITALS: BP (!) 132/102 Pulse 83 Temp 36.7 ???C (98 ???F) (Temporal) Resp 19 Ht 1.549 m (5' 1 ) Wt 50.3 kg (111 lb) SpO2 100% BMI 20.97 kg/m??? GEN: Alert and oriented x3, NAD CV: Regular rate and rhythm PULM: Breathing comfortably ABD: Soft, non-distended, generalized abdominal discomfort upon palpation without guarding or rigidity NEURO: Moves all visualized extremities spontaneously LABS AND IMAGING CBC: Results from last 7 days Lab Units 04/12/25 0737 04/11/25 03504/10/25 0551 WBC AUTO 10*3/uL 5.24 7.80 14.33* RBC AUTO 10*6/uL 2.89* 3.13* 3.73* HEMOGLOBIN g/dL 9.3* 10.2* 12.1 HEMATOCRIT % 27.1* 29.7* 35.5* MCV fL 93.8 94.9 95.2 RDW % 12.4 12.6 12.6 PLATELETS AUTO 10*3/uL 75* 82* 144* PT/INR Results from last 7 days Lab Units 04/11/25 0355 04/10/25 1305 04/09/25 0924 PROTIME Seconds 15.6* 16.2* 14.3 INR 1.25* 1.31* 1.11* BMP: Results from last 7 days Lab Units 04/12/25 0737 04/11/25 0355 04/10/25 0551 SODIUM mmol/L 132* 134* 136 POTASSIUM mmol/L 3.0* 3.3* 3.0* CHLORIDE mmol/L 101 103 104 BUN mg/dL 7 10 17 CREATININE mg/dL 0.25* 0.26* 0.29* EGFR mL/min/1.73m*2 134.1 132.9 129.4 GLUCOSE mg/dL 94 80 99 LFTs: Results from last 7 days Lab Units 04/11/25 0355 04/10/25 0551 04/09/25 1219 BILIRUBIN TOTAL mg/dL 2.2* 1.8* 1.7* BILIRUBIN DIRECT mg/dL 0.6* 0.5* 0.3* ALK PHOS U/L 87 104 71 AST U/L 28 51* 15 ALT U/L 20 32 8 ALBUMIN g/dL 3.7 3.4* 3.9 TOTAL PROTEIN g/dL 5.4* 5.3* 6.3 B12/Folate/Iron studies: No results found for: NITQRDUW86 , FOLATE , IRON , TIBC , UIBC , IRONSAT , FERRITIN Viral Hepatitis No results found for: HEPAIGM , HAV , HEPBSAG , HEPBSAB , HEPBEAB , HEPBIGM , HEPBCAB , HEPBCOREAB , HBVNAT , HCVSCR , HEPCAB , HCVNAT , HCVPCR , HCVTMA Liver workup No results found for: NOE , SMOOTHMUSCAB , CERULOPLSM , [id number] , TTGA , IGA , TSH , FREET4 , AFP Pancreatitis Lab Results Component Value Date AMYLASE 100 04/11/2025 LIPASE 59 04/11/2025 CALCIUM 7.0 (L) 04/12/2025 ASSESSMENT AND PLAN 49-year-old female with a history of COPD, GERD, IBS, hypothyroidism, asthma, depression, anxiety, PTSD, osteoarthritis, and remote cholecystectomy who presented with postprandial epigastric pain radiating to the back, weight loss (~10 lbs over 2 months), nausea, vomiting, and constipation. She recently underwent ERCP on 04/08/2025 for evaluation of a diffusely dilated CBD (15 mm) and distal CBD stricture, during which biliary and pancreatic sphincterotomies, balloon dilation, biopsies, and stent placements (10 Fr biliary, 5 Fr pancreatic) were performed. She returned the next day with worsening abdominal pain, nausea, vomiting, and absence of bowel movements, and was diagnosed with acute pancreatitis, likely post-ERCP in origin. Labs showed leukocytosis (WBC 22.73), markedly elevated lipase (2,510 U/L) and amylase (1,143 U/L), with normal LFTs and creatinine. Troponin was elevated (221.5 ng/L) suggestive of demand ischemia, and EKG showed QTc prolongation (505 ms). Assessment Post ERCP pancreatitis Patient presented after ERCP on 04/08/2025 with upper abdominal pain associated with persistent nausea and vomiting. 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 [facility] 04-12-2025 Note Counseling Tobacco replacement [facility] 04-12-2025 Note Bronchodilators, tob acco cessation, nicotine replacement [facility] 04-12-[address] [facility] 04-12-2025 Note - Supplementation ordered [facility] 04-12-2025 Note Likely type II deman d ischemia in the setting of acute pancreatitis. [facility] 04-12-2025 Note Nutrition following [facility] 04-12-2025 Note Blood pressure likel y more elevated due to acute pain. Start patient on Lopressor 12.5 mg twice a day [facility] 04-12-2025 Note Calcium supplementation ordered [facility] 04-12-2025 Note - Continue Tigan due to prolonge d QT [facility] 04-12-2025 Note - patient s/p ERCP - Pain regimen adjusted, IV Dilaudid discontinued. Oral pain medications added. - IV fluids discontinued, patient started on low-fat diet, encouraged to eat. [facility] 04-12-2025 Note Hospital Medicine Daily Progress Note - 04/12/2025 1:35 PM; Room: [address] [place] [address] Admission: 04/09/2025 7:35 AM; Length of stay: 3 days THE HOSPITALIST TEAM PREFERS TO USE [employer] FOR NON-URGENT COMMUNICATION 7AM-7PM. IF I DO NOT RESPOND WITHIN 20 MINUTES OR URGENT MATTERS, PLEASE CALL THROUGH THE ENTOMOLOGY PROFESSOR. FROM 7PM-7AM, PLEASE PAGE [phone](COVR). Code Status: Full Code Barriers to Discharge: pancreatitis, hypokalemia, hypomagnesemia, QT prolongation on ECG, tolerating diet Expected Discharge Date: 04/13/25 Discharge Destination: home Overview Patient is seen for evaluation and management of post ERCP pancreatitis. Subjective Patient was seen and examined this morning.She was alert awake and oriented. Abdominal pain improved from yesterday. Patient started on low-fat diet, encouraged to eat. Electrolytes being replaced. Physical Exam Visit Vitals BP 134/87 Pulse 83 Temp 37.2 ???C (99 ???F) (Temporal) Resp 21 Intake/Output Summary (Last 24 hours) at 04/12/2025 1335 Last data filed at 04/12/2025 1300 Gross per 24 hour Intake 791.67 ml Output 1125 ml Net -333.33 ml Physical Exam Constitutional: General: She is not in acute distress. Appearance: She is not ill-appearing. Cardiovascular: Rate and Rhythm: Normal rate and regular rhythm. Heart sounds: Normal heart sounds. Comments: ECG revealed normal rate and rhythm but slightly prolonged QT segment Pulmonary: Breath sounds: No wheezing. Abdominal: General: There is no distension. Palpations: Abdomen is soft. Tenderness: There is no abdominal tenderness. Neurological: Mental Status: She is alert and oriented to person, place, and time. Estimated body mass index is 21.65 kg/m??? as calculated from the following: Height as of this encounter: 1.549 m (5' 1 ). Weight as of this encounter: 52 kg (114 lb 9.6 oz). Assessment and Plan Assessment & Plan Post-ERCP acute pancreatitis - patient s/p ERCP - Pain regimen adjusted, IV Dilaudid discontinued. Oral pain medications added. - IV fluids discontinued, patient started on low-fat diet, encouraged to eat. Nausea & vomiting - Continue Tigan due to prolonged QT Hypokalemia - Supplementation ordered Hypomagnesemia - Supplementation ordered Hypocalcemia Calcium supplementation ordered Essential hypertension Blood pressure likely more elevated due to acute pain. Start patient on Lopressor 12.5 mg twice a day NSTEMI (non-ST elevated myocardial infarction) (CMS/HCC) Likely type II demand ischemia in the setting of acute pancreatitis. Severe protein-calorie malnutrition (CMS/HCC) Nutrition following Leukocytosis Resolved COPD (chronic obstructive pulmonary disease) (CMS/HCC) Bronchodilators, tobacco cessation, nicotine replacement Tobacco abuse Counseling Tobacco replacement Nutrition Screen: Clinical Indicators of Malnutrition: low BMI <20 if <70 yrs old, unintentional weight loss, loss of muscle mass with location identified, loss of subcutaneous fat with locations identified Malnutrition Assessment (Completed by RD) Severe PCM: Chronic Illness: severity of reduced muscle mass (severe depletion), severity of body fat loss (severe depletion) Treatment & Intervention Plan: advance diet as medically feasible, monitor intakes and adjust recommendations as needed, monitor/check lab values, nutrition counseling completed and insturction materials provided Nutrition Goals: intake > 75% meals, wt maintenance, compliance w/MNT, advance diet, maitain visceral protein, daily weights VTE Prophylaxis: Heparin subcutaneous Scheduled Meds calcium carbonate, 500 mg, oral, BID heparin (porcine), 5,000 Units, subcutaneous, BID levothyroxine, 25 mcg, oral, Daily before breakfast metoprolol tartrate, 25 mg, oral, BID mometasone-formoterol, 1 puff, inhalation, BID nicotine, 1 patch, transdermal, Daily nitroglycerin, 1 patch, transdermal, Daily pantoprazole, 40 mg, intravenous, q12h MISTY polyethylene glycol, 17 g, oral, BID Pertinent Investigations Hematology: Results from last 7 days Lab Units 04/12/25 0737 04/11/25 0355 04/10/25 1305 WBC AUTO 10*3/uL 5.24 7.80 -- HEMOGLOBIN g/dL 9.3* 10.2* -- HEMATOCRIT % 27.1* 29.7* -- MCV fL 93.8 94.9 -- PLATELETS AUTO 10*3/uL 75* 82* -- INR -- 1.25* 1.31* Chemistry: Results from last 7 days Lab Units 04/12/25 0737 04/11/25 0355 04/10/25 0551 SODIUM mmol/L 132* 134* 136 POTASSIUM mmol/L 3.0* 3.3* 3.0* CHLORIDE mmol/L 101 103 104 CO2 mmol/L 24 23 22 BUN mg/dL 7 10 17 CREATININE mg/dL 0.25* 0.26* 0.29* GLUCOSE mg/dL 94 80 99 MAGNESIUM mg/dL -- 1.9 1.6* CALCIUM mg/dL 7.0* 8.0* 7.9* Results from last 7 days Lab Units 04/11/25 0355 04/10/25 0551 04/09/25 1219 04/09/25 0924 AST U/L 28 51* 15 16 ALT U/L 20 32 8 8 ALK PHOS U/L 87 104 71 71 BILIRUBIN TOTAL mg/dL 2.2* 1.8* 1.7* 1.6* BILIRUBIN DIRECT mg/dL 0.6* 0.5* 0.3* 0.3* LIPASE U/L 59 460* -- 2,51 (more content not included)... [facility] 04-11-2025 Note Blood pressure likel y more elevated due to acute pain. Continue IV Lopressor every 8 hours while patient is NPO. [facility] 04-11-2025 Note Calcium supplementation ordered [facility] 04-11-2025 Note - Supplementation ordered [facility] 04-11-[address] [facility] 04-11-2025 Note - Continue Tigan due to prolonge d QT [facility] 04-11-2025 Note Bronchodilators, tob acco cessation, nicotine replacement [facility] 04-11-2025 Note Nutrition following [place] [facility] 04-11-2025 Note Likely type II deman d ischemia in the setting of acute pancreatitis. [facility] 04-11-2025 Note - patient is 2 days s/p ERCP - patient reports nausea and multiple episodes of vomiting. Patient also has dyspepsia and is burping a lot. Patient currently NPO - pain is being controlled by dilaudid 1 mg IV, every 3 hours PRN - Continue IV fluids to help with acute pancreatitis [facility] 04-11-2025 Note Counseling Tobacco replacement [facility] 04-11-2025 Note Hospital Medicine Daily Progress Note - 04/11/2025 11:17 AM; Room: [address] [place] [address] Admission: 04/09/2025 7:35 AM; Length of stay: 2 days THE HOSPITALIST TEAM PREFERS TO USE [employer] CHAT FOR NON-URGENT COMMUNICATION 7AM-7PM. IF I DO NOT RESPOND WITHIN 20 MINUTES OR URGENT MATTERS, PLEASE CALL THROUGH THE ENTOMOLOGY PROFESSOR. FROM 7PM-7AM, PLEASE PAGE [phone](COVR). Code Status: Full Code Barriers to Discharge: pancreatitis, hypokalemia, hypomagnesemia, QT prolongation on ECG Expected Discharge Date: 1-2 days Discharge Destination: home Overview Patient is seen for evaluation and management of post ERCP pancreatitis. Subjective Patient was seen and examined this morning.She was alert awake and oriented. Abdominal pain slightly improved from yesterday. Physical Exam Visit Vitals BP (!) 156/105 Pulse 83 Temp 36.7 ???C (98.1 ???F) (Temporal) Resp 11 Intake/Output Summary (Last 24 hours) at 04/11/2025 1117 Last data filed at 04/11/2025 1029 Gross per 24 hour Intake 4187.92 ml Output 800 ml Net 3387.92 ml Physical Exam Constitutional: General: She is not in acute distress. Appearance: She is not ill-appearing. Cardiovascular: Rate and Rhythm: Normal rate and regular rhythm. Heart sounds: Normal heart sounds. Comments: ECG revealed normal rate and rhythm but slightly prolonged QT segment Pulmonary: Breath sounds: No wheezing. Abdominal: General: There is no distension. Palpations: Abdomen is soft. Tenderness: There is abdominal tenderness. Neurological: Mental Status: She is alert and oriented to person, place, and time. Estimated body mass index is 20.94 kg/m??? as calculated from the following: Height as of this encounter: 1.549 m (5' 1 ). Weight as of this encounter: 50.3 kg (110 lb 12.8 oz). Assessment and Plan Assessment & Plan Post-ERCP acute pancreatitis - patient is 2 days s/p ERCP - patient reports nausea and multiple episodes of vomiting. Patient also has dyspepsia and is burping a lot. Patient currently NPO - pain is being controlled by dilaudid 1 mg IV, every 3 hours PRN - Continue IV fluids to help with acute pancreatitis Nausea & vomiting - Continue Tigan due to prolonged QT Hypokalemia - Supplementation ordered Hypomagnesemia - Supplementation ordered Hypocalcemia Calcium supplementation ordered Essential hypertension Blood pressure likely more elevated due to acute pain. Continue IV Lopressor every 8 hours while patient is NPO. NSTEMI (non-ST elevated myocardial infarction) (CMS/HCC) Likely type II demand ischemia in the setting of acute pancreatitis. Severe protein-calorie malnutrition (CMS/HCC) Nutrition following Leukocytosis Resolved COPD (chronic obstructive pulmonary disease) (CMS/HCC) Bronchodilators, tobacco cessation, nicotine replacement Tobacco abuse Counseling Tobacco replacement Nutrition Screen: Clinical Indicators of Malnutrition: low BMI <20 if <70 yrs old, unintentional weight loss, loss of muscle mass with location identified, loss of subcutaneous fat with locations identified Malnutrition Assessment (Completed by RD) Severe PCM: Chronic Illness: severity of reduced muscle mass (severe depletion), severity of body fat loss (severe depletion) Treatment & Intervention Plan: advance diet as medically feasible, monitor intakes and adjust recommendations as needed, monitor/check lab values, nutrition counseling completed and insturction materials provided Nutrition Goals: intake > 75% meals, wt maintenance, compliance w/MNT, advance diet, maitain visceral protein, daily weights VTE Prophylaxis: Heparin subcutaneous Scheduled Meds calcium carbonate, 500 mg, oral, Daily metoprolol tartrate, 5 mg, intravenous, q8h nicotine, 1 patch, transdermal, Daily nitroglycerin, 1 patch, transdermal, Daily pantoprazole, 40 mg, intravenous, q12h MISTY polyethylene glycol, 17 g, oral, BID sodium chloride, 100 mL/hr, Last Rate: 100 mL/hr (04/11/25 1030) Pertinent Investigations Hematology: Results from last 7 days Lab Units 04/11/25 0355 04/10/25 1305 04/10/25 0551 WBC AUTO 10*3/uL 7.80 -- 14.33* HEMOGLOBIN g/dL 10.2* -- 12.1 HEMATOCRIT % 29.7* -- 35.5* MCV fL 94.9 -- 95.2 PLATELETS AUTO 10*3/uL 82* -- 144* INR 1.25* 1.31* -- Chemistry: Results from last 7 days Lab Units 04/11/25 0355 04/10/25 0551 04/09/25 0924 SODIUM mmol/L 134* 136 137 POTASSIUM mmol/L 3.3* 3.0* 2.9* CHLORIDE mmol/L 103 104 101 CO2 mmol/L 23 22 27 BUN mg/dL 10 17 18 CREATININE mg/dL 0.26* 0.29* 0.36* GLUCOSE mg/dL 80 99 142* MAGNESIUM mg/dL 1.9 1.6* -- CALCIUM mg/dL 8.0* 7.9* 8.5* Results from last 7 days Lab Units 04/11/25 0355 04/10/25 0551 04/09/25 1219 04/09/25 0924 AST U/L 28 51* 15 16 ALT U/L 20 32 8 8 ALK PHOS U/L 87 104 71 71 BILIRUBIN TOTAL mg/dL 2.2* 1.8* 1.7* 1.6* BILIRUBIN DIRECT mg/dL 0.6* 0.5* 0.3* 0.3* LIPASE U/L 59 460* -- 2,510* Results from last 7 days Lab (more content not included)... [facility] 04-10-2025 Note 04/10/25 1641 Admission Assessment Questions Verify insurance with patient Yes Do you understand medical disease or what brought you into the hospital? Yes Who is your current PCP? Vani Spivey Can I schedule a follow up appointment for you at the time of discharge? Yes Do you understand why you are taking your current medications? Yes Are you taking your medications as prescribed? Yes Did patient provide teach back? No Pharmacy Bedside Delivery Status Interested Does the patient have a patient case coordinator assigned to them through their insurance? No Living Arrangement (Current/Prior to Hospitalization) Private residence Does the patient have history of HHC or SNF? No Assistive Device Not applicable Patient's goal for discharge To stop feeling so nausiated and poop, then go home. Was patient reminded that goal for discharge is 11am? No Does the patient have transportation at discharge? Yes Type of Residence Private residence Is PT/OT appropriate? No Is PT/OT ordered? No Is SW consult appropriate? No Is SW consult ordered? No Do you understand the benefits of MyChart? Yes Were you able to send link and activate MyChart? MyChart already active [facility] 04-10-2025 Note Nutrition following [place] [facility] 04-10-2025 Note - patient is 2 days s/p ERCP - patient reports nausea and multiple episodes of vomiting. Patient also has dyspepsia and is burping a lot. Patient currently NPO - pain is being controlled by dilaudid 1 mg IV, every 3 hours PRN - Administer IV fluids to help with acute pancreatitis [facility] 04-10-2025 Note Blood pressure likel y more elevated due to acute pain. Continue IV Lopressor every 8 hours while patient is NPO. [facility] 04-10-2025 Note Calcium supplementation ordered [facility] 04-10-2025 Note - Supplementation ordered [facility]yl[facility]so val[facility] 04-10-2025 Note Likely type II deman d ischemia in the setting of acute pancreatitis. [facility] 04-10-2025 Note - Continue Tigan due to prolonge d QT [facility] 04-10-2025 Note Hospital Medicine Daily Progress Note - 04/10/2025 11:09 AM; Room: [address] [place] [address] Admission: 04/09/2025 7:35 AM; Length of stay: 1 days THE HOSPITALIST TEAM PREFERS TO USE ChipX FOR NON-URGENT COMMUNICATION 7AM-7PM. IF I DO NOT RESPOND WITHIN 20 MINUTES OR URGENT MATTERS, PLEASE CALL THROUGH THE ENTOMOLOGY PROFESSOR. FROM 7PM-7AM, PLEASE PAGE [phone](COVR). Code Status: Full Code Barriers to Discharge: pancreatitis, hypokalemia, hypomagnesemia QT prolongation on ECG Expected Discharge Date: 1-2 days Discharge Destination: home Overview Patient is seen for evaluation and management of post ERCP pancreatitis. Subjective Patient was seen and examined this morning. Patient seemed in acute distress and expressed severe pain. Patient reported severe abdominal pain and tenderness, more on the left than right side. Patient reports the pain also radiates to her back. Patient reports nausea, dyspepsia, and numerous episodes of vomiting. Patient has not had a bowel movement in the past 2 days. Physical Exam Visit Vitals BP (!) 171/91 Pulse 89 Temp 36.5 ???C (97.7 ???F) (Temporal) Resp 19 Intake/Output Summary (Last 24 hours) at 04/10/2025 1109 Last data filed at 04/10/2025 1007 Gross per 24 hour Intake 4717.5 ml Output 1300 ml Net 3417.5 ml Physical Exam Constitutional: General: She is in acute distress. Appearance: She is ill-appearing. Cardiovascular: Rate and Rhythm: Normal rate and regular rhythm. Heart sounds: Normal heart sounds. Comments: ECG revealed normal rate and rhythm but slightly prolonged QT segment Pulmonary: Breath sounds: Wheezing present. Abdominal: General: There is no distension. Palpations: Abdomen is soft. Tenderness: There is abdominal tenderness. Neurological: Mental Status: She is alert and oriented to person, place, and time. Estimated body mass index is 20.03 kg/m??? as calculated from the following: Height as of this encounter: 1.549 m (5' 1 ). Weight as of this encounter: 48.1 kg (106 lb). Assessment and Plan Assessment & Plan Post-ERCP acute pancreatitis - patient is 2 days s/p ERCP - patient reports nausea and multiple episodes of vomiting. Patient also has dyspepsia and is burping a lot. Patient currently NPO - pain is being controlled by dilaudid 1 mg IV, every 3 hours PRN - Administer IV fluids to help with acute pancreatitis Nausea & vomiting - Continue Tigan due to prolonged QT Hypokalemia - Supplementation ordered Hypomagnesemia - Supplementation ordered Hypocalcemia Calcium supplementation ordered Essential hypertension Blood pressure likely more elevated due to acute pain. Continue IV Lopressor every 8 hours while patient is NPO. NSTEMI (non-ST elevated myocardial infarction) (CMS/HCC) Likely type II demand ischemia in the setting of acute pancreatitis. Severe protein-calorie malnutrition (CMS/HCC) Nutrition following Nutrition Screen: Clinical Indicators of Malnutrition: low BMI <20 if <70 yrs old, unintentional weight loss, loss of muscle mass with location identified, loss of subcutaneous fat with locations identified Malnutrition Assessment (Completed by RD) Severe PCM: Chronic Illness: severity of reduced muscle mass (severe depletion), severity of body fat loss (severe depletion) Treatment & Intervention Plan: advance diet as medically feasible, monitor intakes and adjust recommendations as needed, monitor/check lab values, nutrition counseling completed and insturction materials provided Nutrition Goals: intake > 75% meals, wt maintenance, compliance w/MNT, advance diet, maitain visceral protein, daily weights VTE Prophylaxis: Anticoagulation held, anticipating procedures Scheduled Meds metoprolol tartrate, 5 mg, intravenous, q8h nicotine, 1 patch, transdermal, Daily nitroglycerin, 1 patch, transdermal, Daily pantoprazole, 40 mg, intravenous, q24h MISTY Pertinent Investigations Hematology: Results from last 7 days Lab Units 04/10/25 0551 04/09/25 0924 WBC AUTO 10*3/uL 14.33* 22.73* HEMOGLOBIN g/dL 12.1 14.7 HEMATOCRIT % 35.5* 43.0 MCV fL 95.2 93.9 PLATELETS AUTO 10*3/uL 144* 225 INR -- 1.11* Chemistry: Results from last 7 days Lab Units 04/10/25 0551 04/09/25 0924 SODIUM mmol/L 136 137 POTASSIUM mmol/L 3.0* 2.9* CHLORIDE mmol/L 104 101 CO2 mmol/L 22 27 BUN mg/dL 17 18 CREATININE mg/dL 0.29* 0.36* GLUCOSE mg/dL 99 142* MAGNESIUM mg/dL 1.6* -- CALCIUM mg/dL 7.9* 8.5* Results from last 7 days Lab Units 04/09/25 1219 04/09/25 0924 AST U/L 15 16 ALT U/L 8 8 ALK PHOS U/L 71 71 BILIRUBIN TOTAL mg/dL 1.7* 1.6* BILIRUBIN DIRECT mg/dL 0.3* 0.3* LIPASE U/L -- 2,510* Results from last 7 days Lab Units 04/08/25 0850 POCT GLUCOSE mg/dL 105 Historical Values: (Includes values prior to this admission) Lab Results Component Value Date TSH 2.83 04/10/2025 No results found for: [id number] , IRON , TIBC , C3 , C4 , NOE , CAN (more content not included)... [facility] 04-09-2025 Note Adult Nutrition Asse ssment: Name: Kati Tohrne Date: 1975 Date of Visit: 04/09/25 Admission Dx: Acute pancreatitis due to systemic disease [K85.90] Reason for assessment: high risk Information obtained from: patient and medical record Past Medical History: Diagnosis Date Anxiety Arthritis Asthma COPD (chronic obstructive pulmonary disease) ([facility]) Depression GERD (gastroesophageal reflux disease) Hypothyroidism Irritable bowel syndrome Osteoarthritis PTSD (post-traumatic stress disorder) Current Medications: metoprolol tartrate, 5 mg, intravenous, q8h nicotine, 1 patch, transdermal, Daily nitroglycerin, 1 patch, transdermal, Daily pantoprazole, 40 mg, intravenous, q24h MISTY potassium chloride, 10 mEq, intravenous, q1h sodium chloride, 250 mL/hr, Last Rate: 250 mL/hr (04/09/25 1030) Labs: 0 Lab Value Date/Time POCGLU 105 04/08/2025 0850 BUN 18 04/09/2025 0924 CREATININE 0.36 (L) 04/09/2025 0924 NA 137 04/09/2025 0924 K 2.9 (LL) 04/09/2025923 HGB 14.7 04/09/2025923 WBC 22.73 (H) 04/09/2025923 Allergies: No Known Allergies Nutrition Problems: Swallowing Assessment: Pt denied any problems swallowing Mouth: Pt denied any problems chewing; missing teeth Abdominal Assessment: Pt reported that she has been having nausea, vomiting, and abdominal pain since surgery yesterday Appetite: poor Cognition: A&O x 4 Feeding Skills: Pt reported that she will cook her meals and she has good access to food NFPE, completed on (04/09): Muscle depletion: Temporalis (head): moderate Pectoralis (clavicle): severe Deltoid (shoulder): severe Interosseous (dorsal hand): not assessed Supraspinatus (scapular bone region): not assessed Infraspinatus (scapular bone region): not assessed Quadriceps (patellar region, anterior thigh): moderate Gastrocnemius (post-calf region): not assessed Adipose depletion: Orbital: moderate Buccal: moderate Triceps: severe Ribs: not assessed Skin Integrity: documented to be intact Other Factors: 04/08: ENDOSCOPIC RETROGRADE CHOLANGIOPANCREATOGRAPHY findings of diffusely dilated CBD (up to 15 mm) and low-grade distal CBD stricture; biliary sphincterotomy and balloon dilation were performed, biopsies obtained, and a 10 Fr x 9 cm biliary stent placed. Additionally, a slightly prominent pancreatic duct was noted without stricture; pancreatic sphincterotomy was performed and a 5 Fr x 11 cm pancreatic stent was placed Imaging confirmed pancreatitis Nutrition Data/Clinical Indicators of Nutrition Status: Height: 154.9 cm (5' 1 ) Weight: 45.8 kg (101 lb) BMI (Calculated): 19.09 Wt Readings from Last 10 Encounters: 04/09/25 45.8 kg (101 lb) 04/08/25 47.5 kg (104 lb 11.5 oz) 03/11/25 46 kg (101 lb 6.6 oz) IBW: 47.7 kg Low BMI: <20 if Weight change: Pt reported that her weight was 160-170 lbs a couple of months ago. No documented weight history to confirm this per chart review. Pt reported that the weight loss is related to her having a lot going on. Nutrition Assessment: Pt reported that she has not been able to eat for a few days to surgery and she cannot keep anything down after surgery. Pt reported that before surgery her intake was normal and she will typically eat 2 meals a day. Pt does not eat breakfast. Lunch and dinner will be things like burgers or grilled cheese with fries. Pt reported that she will cook these meals at home. Pt was not sure if she wanted ONS while being here as she was in a lot of pain. Pt was thirsty and drank cranberry juice during visit. Dietary Orders (From admission, onward) Start Ordered 04/09/25 1014 Clear Liquid Diet Diet effective now Question: Room Service? Answer: No 04/09/25 1013 Nutrition Risk: High Nutrition Needs: Needs based on: actual body weight (45.8 kg) Calorie needs: 2214-5674 kcals/day based on Equation: 25-30 kcal/kg Protein needs: 46-56 g/day based on 1.0-1.2 g/kg Fluid needs: 1374 ml/day based on 30 ml/kg Nutrition Diagnosis: Severe protein calorie malnutrition related to chronic illness as evidenced by severe loss of muscle mass and severe loss of adipose fat. Malnutrition Assessment: Assessment Timepoint: Admit Reason for Referral: high risk Nutrition information obtained from:: Patient, Medical Record Clinical Indicators of Malnutrition: low BMI <20 if <70 yrs old, unintentional weight loss, loss of muscle mass with location identified, loss of subcutaneous fat with locations identified Malnutrition Assessment (Completed by EDMOND) Severe PCM: Chronic Illness: severity of reduced muscle mass (severe depletion), severity of body fat loss (severe depletion) Nutritional Problems: Abdominal:: Abdominal pain, Nausea, Vomiting Nutrition Treatment and Intervention Plan Treatment & Intervention Plan: advance diet as medically feasible, monitor intakes and adjust recommendations as needed, monitor/check (more content not included)... [facility] 04-09-2025 Note S/p ERCP suspect pos t ERCP Pancreatitis ,Pain control n.p.o. symptomatic management nausea vomiting because of prolonged QTc interval use Tigan GI consult [facility] 04-09-2025 Note With elevated blood pressure and tachycardia pain control put her on metoprolol IV [facility] 04-09-2025 Note As above 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 IV fluids and use Tigan because of prolonged QTc interval on telemetry around [facility] 04-09-2025 Note Suspect from pancrea titis stress of pain because of marked leukocytosis. Consider repeating CT scan if increased white blood count or worsening pain or change in status will hydrate patient and recheck CBC also will check LFTs lipase coagulation panel consider either repeating CT scan of the abdomen or MRCP [facility] 04-09-2025 Note Hospital Medicine History and Physical 04/09/2025 7:51 AM THE HOSPITALIST TEAM PREFERS TO USE ChipX FOR NON-URGENT COMMUNICATION 7AM-7PM. IF I DO NOT RESPOND WITHIN 20 MINUTES OR URGENT MATTERS, PLEASE CALL THROUGH THE ENTOMOLOGY PROFESSOR. FROM 7PM-7AM, PLEASE PAGE [phone](COVR). Chief Complaint No chief complaint on file. History of Present Illness Kati Thorne is an 49 y.o. female admitted from [facility] presented with uncontrolled ongoing abdominal pain mainly in the upper abdomen described as continuous sharp worse with eating radiating to back associated with persistent nausea vomiting had intermittent dyspepsia denies hematemesis blood in bowels coffee-ground emesis had constipation and had not moved bowel movements in past 3 days denies any dysuria hematuria fever chills chest pains. Patient was discharged from [facility] on 04/08/2025 after undergoing ERCP with biliary and pancreatic stent placement sphincterotomy. The findings of the ERCP showed diffusely dilated common bile duct with papillary stenosis and low-grade distal common bile duct stricture requiring biliary sphincterotomy followed by balloon dilatation of the distal common bile duct stricture biopsy was also obtained and also she noted was slightly prominent pancreatic duct with no stricture underwent pancreatic stent,. She had a CT scan done on 04/08/2025 showed acute pancreatitis without necrosis stents in common bile duct and pancreatic duct, she was given fentanyl and an Zofran she had labs done at [place] which showed WBC 25.6 hemoglobin 15.4 hematocrit 44.5 platelets 322 she had 89's percent segments absolute neutrophil count was 22.78 her potassium was 3.3 sodium 140 chloride 100 bicarb 28 creatinine 0.59 GFR estimated was more than 60 total bilirubin 1.1 calcium 9.3 lactate 2 glucose 178 troponin were 102 with peak to 221.5 and lipase was 1743 ALT was 20 Review of System and Physical Exam Temp: [36.2 ???C (97.2 ???F)-36.5 ???C (97.7 ???F)] 36.2 ???C (97.2 ???F) Heart Rate: [62-98] 98 Resp: [18-20] 20 BP: (153-189)/(102-122) 160/107 Physical Exam Vitals reviewed. Constitutional: Comments: Moaning with pain HENT: Head: Normocephalic and atraumatic. Right Ear: Tympanic membrane, ear canal and external ear normal. Left Ear: Tympanic membrane, ear canal and external ear normal. Mouth/Throat: Mouth: Mucous membranes are dry. Pharynx: Oropharynx is clear. Eyes: Extraocular Movements: Extraocular movements intact. Conjunctiva/sclera: Conjunctivae normal. Pupils: Pupils are equal, round, and reactive to light. Cardiovascular: Rate and Rhythm: Normal rate and regular rhythm. Pulses: Normal pulses. Heart sounds: Normal heart sounds. Pulmonary: Breath sounds: Wheezing present. Abdominal: General: Bowel sounds are normal. Palpations: Abdomen is soft. Tenderness: There is abdominal tenderness. Musculoskeletal: General: Normal range of motion. Cervical back: Normal range of motion and neck supple. Comments: Right finger amputation Skin: General: Skin is warm and dry. Capillary Refill: Capillary refill takes less than 2 seconds. Neurological: General: No focal deficit present. Mental Status: She is alert. Mental status is at baseline. Psychiatric: Behavior: Behavior normal. Review of Systems Constitutional: Positive for activity change and fatigue. HENT: Negative. Eyes: Negative. Respiratory: Negative. Cardiovascular: Negative. Gastrointestinal: Positive for abdominal pain, constipation, nausea and vomiting. Genitourinary: Negative. Musculoskeletal: Negative. Skin: Negative. Allergic/Immunologic: Negative. Neurological: Positive for weakness. Negative for dizziness, tremors, seizures, syncope, facial asymmetry, speech difficulty, light-headedness, numbness and headaches. Hematological: Negative. Psychiatric/Behavioral: Negative. Assessment and Plan Assessment & Plan Acute pancreatitis due to systemic disease S/p ERCP suspect post ERCP Pancreatitis ,Pain control n.p.o. symptomatic management nausea vomiting because of prolonged QTc interval use Tigan GI consult Pain of upper abdomen As above Leukocytosis Suspect from pancreatitis stress of pain because of marked leukocytosis. Consider repeating CT scan if increased white blood count or worsening pain or change in status will hydrate patient and recheck CBC also will check LFTs lipase coagulation panel consider either repeating CT scan of the abdomen or MRCP Nausea & vomiting As mentioned above controlled nausea vomiting but keeping patient n.p.o. IV fluids and use Tigan because of prolonged QTc interval on telemetry around COPD (chronic obstructive pulmonary disease) ([facility]) Bronchodilators tobacco cessation nicotine replacement Tobacco abuse Counseling Tobacco replacement Primary hypertension With elevated blood pressure and tachycardia pain control put her on metoprolol (more content not included)... [facility] 04-08-2025 Note Patient: Kati Thorne Procedure Summary Date: 04/08/25 Room / Location: [facility] Anesthesia Start: 858 Anesthesia Stop: 1020 Procedure: ENDOSCOPIC RETROGRADE CHOLANGIOPANCREATOGRAPHY Diagnosis: Recurrent biliary colic Scheduled Providers: Roscoe Be MD; Titus Little MD; ELLIOTT Kong Responsible Provider: Titus Little MD Anesthesia Type: MAC ASA Status: 3 Anesthesia Type: MAC Vitals Value Taken Time BP 177/112 04/08/25 1020 Temp 36.2 ???C (97.2 ???F) 04/08/25 1020 Pulse 85 04/08/25 1020 Resp 18 04/08/25 1020 SpO2 100 % 04/08/25 1020 Anesthesia Post Evaluation Patient location during evaluation: PACU Patient participation: complete - patient participated Level of consciousness: awake Pain score: 1 Pain management: adequate Airway patency: patent Cardiovascular status: acceptable Respiratory status: acceptable Patient is hemodynamically stable and is able to be discharged from PACU per anesthesia protocol. No notable events documented. [facility] 04-08-2025 Note Airway Date/Time: 04/08/2025 9:05 AM Urgency: elective Airway not difficult General Information and Staff Patient location during procedure: OR Anesthesiologist: Titus Little MD Resident/SPACE PLANNER/CAA: ELLIOTT Kong Performed: resident/SPACE PLANNER/ELLIOTT Indications and Patient Condition Indications for airway management: anesthesia Spontaneous Ventilation: absent Sedation level: deep Preoxygenated: yes Patient position: sniffing Mask difficulty assessment: 1 - vent by mask Planned trial extubation Final Airway Details Final airway type: endotracheal airway Successful airway: ETT Cuffed: yes Successful intubation technique: video laryngoscopy Facilitating devices/methods: intubating stylet Endotracheal tube insertion site: oral Blade: [place] Blade size: #3 ETT size (mm): 7.0 Cormack-Lehane Classification: grade I - full view of glottis Placement verified by: chest auscultation and capnometry Measured from: lips ETT to lips (cm): 22 Number of attempts at approach: 1 Number of other approaches attempted: 0 [facility] 04-08-2025 Note Patient: Kati Thorne Procedure Information Date/Time: 04/08/25 0945 Scheduled providers: Roscoe Be MD; Titus Little MD; ELLIOTT Kong Procedure: ENDOSCOPIC RETROGRADE CHOLANGIOPANCREATOGRAPHY Location: [facility] Invasive [facility] [place] [facility] Relevant Problems Anesthesia (within normal limits) Cardio Denies chest pain/SOB. No previous cardiac interventions. Endo hypothyroidism /Renal (within normal limits) Neuro/Psych PTSD Pulmonary Long standing tobacco use, COPD, asthma Clinical information reviewed: Past Medical History: Diagnosis Date Anxiety Arthritis Asthma Depression GERD (gastroesophageal reflux disease) Hypothyroidism Irritable bowel syndrome Osteoarthritis PTSD (post-traumatic stress disorder) Physical Exam Airway Mallampati: II TM distance: >3 FB Neck ROM: full Cardiovascular - normal exam Dental (+) edentulous Pulmonary (+) rhonchi Abdominal Anesthesia Plan ASA 3 MAC The patient is a current smoker. Patient was previously instructed to abstain from smoking on day of procedure. Patient did not smoke on day of procedure. intravenous induction Anesthetic plan and risks discussed with patient. Plan discussed with CAA. Additional Equipment Requests [facility] 04-01-2025 Note Procedure notes and results given to Dr. Be for review and recommendations [facility] 03-30-2025 Note Patient calls today stating she had procedure two weeks ago with Dr. Be and was told to call if symptoms continued. EUS completed 03/11/2025. Patient states that she continues to have epigastric pain, nausea and diarrhea with urgency which has caused some incontinence. Please aadvise [facility] 03-18-2025 Note EGD/EUS procedure no te along with biopsy results faxed to referring office of Dr. Arias, attn: Christin at [phone] [facility] 03-18-2025 History of Present illness Narrative Images from the original note were not included. Subjective Patient ID: Kati Thorne is a 49 y.o. female who presents for Toenail Problem (49 yo OP presents today for concerns of loosened LGT nail. Pt states noticed about a week ago, states it is sore. ). HPI Established patient presents to clinic with concern of her left hallux toenail. Patient states that she has had thickening of the toenail for many years. More recently the nail is becoming painful and loose from the underlying nailbed. No treatment tried. She relates exquisite pain especially with the any manipulation of the toenail. Review of Systems Constitutional: Negative for activity change and fatigue. Respiratory: Negative for chest tightness and shortness of breath. Cardiovascular: Negative for chest pain and leg swelling. Musculoskeletal: Positive for gait problem. Negative for arthralgias and joint swelling. Skin: Negative for color change and wound. Neurological: Negative for weakness and numbness. Psychiatric/Behavioral: Negative for agitation and behavioral problems. Hematological: Does not bruise/bleed easily. Allergic/Immunologic: Negative for immunocompromised state. Past medical History Past Medical History: Diagnosis Date Emphysema lung (CMS/HCC) Hypothyroidism (CMS/HCC) Myocardial infarction (CMS/HCC) Osteoarthritis Rhabdomyolysis Medications Current Outpatient Medications: albuterol HFA 90 mcg/act inhaler, Inhale 2 puffs in the morning and 2 puffs at noon and 2 puffs in the evening., Disp: , Rfl: gabapentin (Neurontin) 300 MG capsule, Take 1 capsule by mouth 2 (two) times a day as needed, Disp: , Rfl: Allergies Patient has no allergy information on record. Past Surgical History Past Surgical History: Procedure Laterality Date APPENDECTOMY CHOLECYSTECTOMY COLONOSCOPY FINGER AMPUTATION Right 06/2024 right index finger IR BILIARY BIOPSY 03/2025 LAPAROSCOPY DIAGNOSTIC / BIOPSY / ASPIRATION / LYSIS TOTAL ABDOMINAL HYSTERECTOMY Family History Family History Problem Relation Name Age of Onset Diabetes Mother Objective Physical Exam Constitutional: General: She is not in acute distress. Comments: Smells of cigarette smoke. HENT: Head: Atraumatic. Cardiovascular: Pulses: Normal pulses. Musculoskeletal: Cervical back: No tenderness. Skin: Capillary Refill: Capillary refill takes less than 2 seconds. Comments: Left hallux toenail is almost completely detached from the underlying nailbed with a about 90 percent onycholysis. The nail is very tender with manipulation. There is no drainage or cellulitis noted. Neurological: General: No focal deficit present. Mental Status: She is alert. Psychiatric: Mood and Affect: Mood normal. Behavior: Behavior normal. Assessment/Plan ICD-10-CM 1. Contusion of left great toe with damage to nail, initial encounter S90.212A 2. Onychodystrophy L60.3 3. Left foot pain M79.672 Patient was examined and evaluated. Due to onycholysis of the left hallux toenail I have recommended temporary nail avulsion. Informed consent obtained. Left hallux was anesthetized using 3 mL of 2% lidocaine plain. The digit was then scrubbed, prepped, draped in the usual aseptic manner. Utilizing a sterile hemostat I was able to successfully remove the entirety of the nail without incident. Nail bed was clean, and intact following avulsion. Surgical site was flushed with copious amounts of saline. Clean dressing was applied which may be removed tomorrow. I discussed that this is a temporary measure and trimming the toenail will be necessary over the next few months as it continues to grow out. I discussed that a permanent matrixectomy may be necessary in the future and I also discussed that the nail which grows back may be slightly thicker and dystrophic than the previous nail. Follow-up 2 weeks. This note was created with the assistance of a speech recognition program. While intending to generate a timely document that accurately reflects the content of the visit, no guarantee can be provided that every grammatical or spelling mistake has been or will be identified or corrected. Thank you for your understanding. Evans Thomas DPM documented in this encounter [facility] 03-11-2025 Note Patient: Kati Thorne Procedure Summary Date: 03/11/25 Room / Location: [facility] Anesthesia Start: 926 Anesthesia Stop: 1020 Procedure: EUS (UPPER) W/ EGD Diagnosis: Dilated cbd, acquired Scheduled Providers: Roscoe Be MD; Titus Little MD; ELLIOTT Romo Responsible Provider: Titus Little MD Anesthesia Type: MAC ASA Status: 3 Anesthesia Type: MAC Vitals Value Taken Time BP 113/83 03/11/25 1035 Temp 36.2 ???C (97.2 ???F) 03/11/25 1020 Pulse 86 03/11/25 1035 Resp 15 03/11/25 1035 SpO2 96 % 03/11/25 1035 Anesthesia Post Evaluation Patient location during evaluation: PACU Patient participation: complete - patient participated Level of consciousness: awake Pain score: 1 Pain management: adequate Airway patency: patent Cardiovascular status: acceptable Respiratory status: acceptable Patient is hemodynamically stable and is able to be discharged from PACU per anesthesia protocol. There were no known notable events for this encounter. [facility] 03-11-2025 Note Patient: Kati Thorne Procedure Information Date/Time: 03/11/25 0945 Scheduled providers: Roscoe Be MD; Titus Little MD; ELLIOTT Romo Procedure: EUS (UPPER) W/ EGD Location: [facility] Relevant Problems Anesthesia (within normal limits) Cardio Denies chest pain/SOB. No previous cardiac interventions. Endo hypothyroidism /Renal (within normal limits) Neuro/Psych PTSD Pulmonary Long standing tobacco use, COPD, asthma Clinical information reviewed: Tobacco Allergies Meds Med Hx Surg Hx Fam Hx Soc Hx Past Medical History: Diagnosis Date Anxiety Arthritis Asthma Depression GERD (gastroesophageal reflux disease) Hypothyroidism Irritable bowel syndrome Osteoarthritis PTSD (post-traumatic stress disorder) Physical Exam Airway Mallampati: II TM distance: >3 FB Neck ROM: full Cardiovascular - normal exam Dental (+) edentulous Pulmonary (+) rhonchi Abdominal Anesthesia Plan ASA 3 MAC The patient is a current smoker. Patient was previously instructed to abstain from smoking on day of procedure. Patient did not smoke on day of procedure. intravenous induction Anesthetic plan and risks discussed with patient. Plan discussed with CAA. Additional Equipment Requests [facility] 02-25-2025 Note 03/06/25@1200 Referra l coordinator Christin had called back with a different phone # of [phone] and message left for patient to call and schedule a procedure. 02/27/25@ 1528 Again, attempted to reach patient to schedule and EUS, but the call could not be completed as dialed. Emergency contact listed is Luis Manuel at [phone], voice mail is full. 02/25/25 Attempted to reach patient to schedule and EUS with Dr. Roscoe Be, see referral in media tab from Dr. Arias's office dated 01/31/25, but call is not able to be completed the times I have called her. Called Christin reconciliation coordinator and message left is she has an alternate phone #. In the meantime will mail her a letter. [facility] 07-11-2024 Note Admission Informatio n Patient: Kati Thorne : 1975 Date of Admission: 07/10/2024 11:21:35 Date of Discharge: Code Status: Full Resuscitation PCP: Consult: Hayden Recinos DO 48 yr old lady who [...] less than 30 minutes Medications New Medications [facility], [address] [place] [id number], [phone] cefdinir (cefdinir 300 mg oral capsule) 1 [...] (Right, F Index) (07/10/2024) Electronically signed by Bala RAMIREZ [place] 07/11/24 11:[address] [facility] 07-10-2024 Note Chief Complaint bp around 190s [...] this time too much in pain --will grief counselor in am discussion pain control , [...] hydrALAZINE, 10 mg= 0.5 mL, IV Push, y2or-Tftrmjni Times, PRN LR 1,000 mL, 1000 mL, [...] by Vikram Mckenna MD 07/10/24 19:[address] [facility] 07-10-2024 Note Clinical Information Procedure: RIGHT INDEX [...] right index finger, excision: Consistent with osteomyelitis. [id number] [id number] Raul Davidson MD PhD (Electronically signed by) Verified: 07/16/24 13:53 [facility] Comment on above: Performed By: #### [facility] [place] #### [facility] (DEFAULT) [address] [place] [address] [address] 03-05-2023 Note PROCEDURE: XR HAND R T [...] authenticated by: FRANCES AGUSTIN Date: 2023-03-05 11:36 [facility] 08-30-2022 Note PROCEDURE: XR HUMERU S LT [...] authenticated by: FRANCES AGUSTIN Date: 2022-08-30 10:20 [facility] 08-30-2022 Note PROCEDURE: XR HUMERU S LT [...] authenticated by: FRANCES AGUSTIN Date: 2022-08-30 10:20 [facility] 06-22-2022 Note PROCEDURE: XR WRIST LT MIN [...] wrist or hand Electronically authenticated by: RJ PEREZ Date: 2022-06-22 07:13 [facility] 06-22-2022 Note PROCEDURE: XR WRIST LT MIN [...] wrist or hand Electronically authenticated by: RJ PEREZ Date: 2022-06-22 07:13 [facility] Evaluation note No assessment information availa ble [facility] Work Phone: Evaluation note Diagnosis Contusion of left great toe with damage to nail, initial encounter- Primary Onychodystrophy Other specified disease of nail Left foot pain Pain in soft tissues of limb documented in this encounter [facility] Discharge instructions Additional Instructions Follow-up with your surgeon for further evaluation or pain medication.[facility] Work Phone: Summary Purpose Family History [...] and content) DATE CREATED AUTHOR 10/24/2022 Soham Kunal [facility] DATE CREATED AUTHOR AUTHOR'S ORGANIZ ATION 03/24/2023 [facility] DATE CREATED AUTHOR AUTHOR'S ORGANIZ ATION 07/04/2024 [facility] DATE CREATED AUTHOR AUTHOR'S ORGANIZ ATION 11/07/2024 [facility] DATE CREATED AUTHOR AUTHOR'S ORGANIZ ATION 01/13/2025 [facility] DATE CREATED AUTHOR AUTHOR'S ORGANIZ ATION 03/21/2025 [facility] EPIC DATE CREATED AUTHOR AUTHOR'S ORGANIZ ATION 04/25/[address] [facility] Care Teams (unrecognized sec tion and content) [...] August 13, 2024 End: August 13, 2024 [employer] Relationship Specialty Start Date End Date Vani Spivey MD [address] [place], [place] [id number] PCP - General Family Medicine 03/18/25 Sap B[employer] Relationship Specialty Start Date End Date Vani Spivey MD [address] [place] [id number] PCP - General Family Medicine 03/18/25 Goals (unrecognized section and content) Goals may be documented in a n alternate section Reason for Visit (unrecogniz ed section and content) Reason Comments Toenail Problem 49 yo OP presents to day for concerns of loosened LGT nail. Pt states noticed about a week ago, states it is sore. FOR RECORDS PERTAINING TO PATIENTS WHO ARE [...] BE BASED ON THE PRIMARY CLINICAL RECORDS. [employer] provides no warranty or guarantee of the accuracy or completeness of information in this document.
--- NOTE | 2025-04-26 18:11 | ECG_ITS ---
[facility] Test Date: 2025-04-26 Pat Name: SULY THORNE Department: Room: - Gender: Female Environmental Health [employer] Safety Intern: : 1975 Requested By: [id number] Order Number: [id number] Reading MD: AILYN CAMPOS M.D. Measurements Intervals Sturgeon Rate: 78 P: 83 OR: 110 QRS: 88 QRSD: 90 T: 87 QT: 410 QTc: 443 Interpretive Statements 1100 Sinus rhythm 2210 Short OR interval 9150 abnormal ECG Compared to ECG 04/09/2025 02:04:19 QT has shortened Electronically Signed On 04-26-2025 21:58:44 EDT by AILYN CAMPOS M.D.
[2025-04-26 18:22] LABS: Hematocrit 41.4 % (36.0-48.0); Hemoglobin 13.8 g/dL (12.0-16.0); Mean Corpuscular HGB Conc 33.3 g/dL (29.9-35.2); Mean Corpuscular Hemoglobin 31.5 pg (26.7-34.0); Mean Corpuscular Volume 94.5 fL (81.0-99.0); Mean Platelet Volume 12.8 fL (9.5-13.5); Platelet Count 288 10^3/uL (150-450); Red Blood Count 4.38 10^6/uL (4.20-5.40); Red Cell Distribution Width 12.9 % (11.0-15.0); White Blood Count 25.4 10^3/uL (4.0-11.0)
[2025-04-26] MEDS: 0.9 % SODIUM CHLORIDE 1,000 ML 1000 ML IV ×2 (18:22→20:23)
[2025-04-26] MEDS: PROCHLORPERAZINE 10 MG/2 ML VIAL IV (18:23)
[2025-04-26] MEDS: HYDROMORPHONE HCL 0.5 MG/0.5 ML SYRINGE 1 MG IV (18:23)
[2025-04-26 18:46] LABS: Lymphocytes Absolute Manual 3.55 10^3/uL (1.20-3.80); Segmented Neut Absolute Manual 21.33 10^3/uL (1.4-6.5)
[2025-04-26 18:48] LABS: Alanine Aminotransferase 11 U/L (14-59); Albumin Globulin Ratio 0.6; Albumin Level 3.2 g/dL (3.4-5.0); Alkaline Phosphatase 159 U/L (46-116); Anion Gap 14.3; Aspartate Amino Transferase 16 U/L (15-37); Bilirubin Total 1.4 mg/dL (0.2-1.0); Calcium 10.4 mg/dL (8.5-10.1); Carbon Dioxide 30.2 mmol/L (21.0-32.0); Chloride 99 mmol/L (98-107); Estimated GFR (African America >60 (>=60 mL/min/1.73m^2); Estimated GFR (Non-African Ame >60 (>=60 mL/min/1.73m^2); Globulin 5.2 g/dL; Glucose 129 mg/dL (74-106); Potassium 3.5 mmol/L (3.5-5.1); Sodium 140 mmol/L (136-145); Total Protein 8.4 g/dL (6.4-8.2)
--- NOTE | 2025-04-26 18:48 | ED.ABDPAIN1 ---
HPI - Abdominal Pain General Chief Complaint: Abdominal Pain Stated Complaint: SHORT OF BREATH Time Seen by Provider: 04/26/25 17:57 Source: patient Mode of arrival: Wheelchair Limitations: no limitations History of Present Illness HPI narrative: The patient is a 49-year-old female with history of recent diagnosis of pancreatitis, for which she was transferred to another facility is coming to the ER with abdominal pain mostly left lower quadrant associated with nausea and vomiting and decreased p.o. intake for the last 24 hours, the patient mentioned that also that she is having a lot of pain in her abdomen that prevented her from breathing because every time she take a deep breath it hurts Upon her arrival the patient is in distress and screaming in pain Related Data Home Medications ?Medication ?Instructions ?Recorded ?Confirmed budesonide-formoterol HFA 80 2 puff inhalation Q12H 01/01/25 04/26/25 mcg-4.5 mcg/actuation aerosol inhaler (Symbicort) gabapentin 300 mg capsule 300 mg PO DAILY 01/01/25 04/26/25 levothyroxine 25 mcg tablet 25 mcg PO DAILY 04/08/25 04/26/25 metoprolol tartrate 25 mg tablet 25 mg PO Q12H 04/08/25 04/26/25 pantoprazole 40 mg tablet,delayed 40 mg PO DAILY 04/08/25 04/26/25 release oxycodone 5 mg tablet 5 mg PO Q8H 04/26/25 04/26/25 Previous Rx's ?Medication ?Instructions ?Recorded albuterol sulfate 90 mcg/actuation 2 inh inhalation Q4H PRN shortness 01/01/25 aerosol inhaler of breath or wheezing 7 days #8.5 grams Allergies Allergy/AdvReac Type Severity Reaction Status Date / Time No Known Drug Allergies Allergy Verified 04/08/25 22:05 Review of Systems ROS Status of ROS 10 or more systems reviewed and unremarkable except as noted in history and below [facility] Medical History Full dentures ?Z97.2 - Presence of dental prosthetic device (complete) (partial) (ICD-10) ?K08.109 - Complete loss of teeth, unspecified cause, unspecified class (ICD-10) Neck pain ?M54.2 - Cervicalgia (ICD-10) Depression ?F32.A - Depression, unspecified (ICD-10) Anxiety ?F41.9 - Anxiety disorder, unspecified (ICD-10) Asthma ?J45.909 - Unspecified asthma, uncomplicated (ICD-10) Chronic obstructive pulmonary disease ?J44.9 - Chronic obstructive pulmonary disease, unspecified (ICD-10) Migraine ?G43.909 - Migraine, unspecified, not intractable, without status migrainosus (ICD-10) Kidney stones ?N20.0 - Calculus of kidney (ICD-10) GERD (gastroesophageal reflux disease) ?K21.9 - Gastro-esophageal reflux disease without esophagitis (ICD-10) Hypothyroidism ?E03.9 - Hypothyroidism, unspecified (ICD-10) Hiatal hernia ?K44.9 - Diaphragmatic hernia without obstruction or gangrene (ICD-10) Colon polyp ?K63.5 - Polyp of colon (ICD-10) Ovarian cyst ?N83.209 - Unspecified ovarian cyst, unspecified side (ICD-10) Endometriosis ?N80.9 - Endometriosis, unspecified (ICD-10) Hypertension ?I10 - Essential (primary) hypertension (ICD-10) Back pain ?M54.9 - Dorsalgia, unspecified (ICD-10) Chronic neck pain ?M54.2 - Cervicalgia (ICD-10) ?G89.29 - Other chronic pain (ICD-10) Open fracture of right hand ?S62.91XB - Unspecified fracture of right wrist and hand, initial encounter for open fracture (ICD-10) Anxiety and depression ?F41.9 - Anxiety disorder, unspecified (ICD-10) ?F32.A - Depression, unspecified (ICD-10) HTN (hypertension) ?I10 - Essential (primary) hypertension (ICD-10) Bulging of cervical intervertebral disc ?M50.30 - Other cervical disc degeneration, unspecified cervical region (ICD-10) Osteoporosis ?M81.0 - Age-related osteoporosis without current pathological fracture (ICD-10) Surgical History History of tonsillectomy ?Z90.89 - Acquired absence of other organs (ICD-10) History of colonoscopy ?Z98.890 - Other specified postprocedural states (ICD-10) History of esophagogastroduodenoscopy (EGD) ?Z98.890 - Other specified postprocedural states (ICD-10) History of laparoscopy ?Z98.890 - Other specified postprocedural states (ICD-10) History of appendectomy ?Z90.49 - Acquired absence of other specified parts of digestive tract (ICD-10) History of hysterectomy ?Z90.710 - Acquired absence of both cervix and uterus (ICD-10) History of cholecystectomy ?Z90.49 - Acquired absence of other specified parts of digestive tract (ICD-10) Family History Other Brain tumor Cancer Family history of aneurysm Family history of diabetes mellitus Family history of hypertension Social History Within the past year, how often did you have a drink containing alcohol: never Score interpretation: A score less than 3 is consistent with normal alcohol consumption. Smoking status: Current every day smoker What tobacco products do you use: cigarettes Cigarettes per day: 30 Years smoked: 36 Smoking pack-years: 54.00 Non-prescribed substance use: cannabis (any form) Highest level of school completed/degree received: 11th grade Little interest or pleasure in doing things: not at all Feeling down, depressed, or hopeless: not at all Exam Narrative Exam Narrative: Nurses notes and vital signs reviewed and patient is not hypoxic. General: Patient in distress due to pain Skin: Warm, dry, no pallor noted. No rash. Head: Normocephalic, atraumatic. Neck: Supple, non-tender. Eye: Pupils are equal, round and EOMI. No scleral icterus. Ears, Nose, Mouth, and Throat: TM are clear, no nasal mucosal hypertrophy. Oral mucosa is moist, no posterior oropharynx erythema, uvula is mid-line Cardiovascular: Regular Rate and Rhythm without murmur, gallop or rub. Respiratory: No accessory muscle use or respiratory distress. Lungs are clear to auscultation, no wheezing, rales or rhonchi GI: The patient abdomen is rigid and the patient was in pain and the rigidity could be secondary to the but it is tender over Neurological: A&O x4. No cranial nerve dysfunction observed. Constitutional Vital Signs, click to edit/add: Last Vital Signs Temp 98.3 F 04/26/25 17:17 Pulse 97 H 04/26/25 17:17 Resp 22 H 04/26/25 17:17 BP 161/96 H 04/26/25 17:17 Pulse Ox 98 04/26/25 17:17 O2 Del Method Room Air 04/26/25 17:17 Course Vital Signs Vital signs: Vital Signs Temperature 98.3 F 04/26/25 17:17 Pulse Rate 97 H 04/26/25 17:17 Respiratory Rate 22 H 04/26/25 17:17 Blood Pressure 161/96 H 04/26/25 17:17 Pulse Oximetry 98 04/26/25 17:17 Oxygen Delivery Method Room Air 04/26/25 17:17 Temperature 98.3 F 04/26/25 17:17 Pulse Rate 97 H 04/26/25 17:17 Respiratory Rate 22 H 04/26/25 17:17 Blood Pressure 161/96 H 04/26/25 17:17 Pulse Oximetry 98 04/26/25 17:17 Oxygen Delivery Method Room Air 04/26/25 17:17 MDM - Abdominal Pain MDM Narrative Medical decision making narrative: The patient had a recent diagnosis of pancreatitis Her presentation today could be secondary to pancreatitis again but also this could be secondary to another pathology The patient EKG in the ER did not show any ST elevation or depression Pending the blood workup as well as the CAT scan the patient care will be transferred to Dr. Tripathi Lab Data Labs: Lab Results 04/26/25 Range/Units 18:00 WBC 25.4 H (4.0-11.0) 10^3/uL RBC 4.38 (4.20-5.40) 10^6/uL Hgb 13.8 (12.0-16.0) g/dL Hct 41.4 (36.0-48.0) % MCV 94.5 (81.0-99.0) fL MCH 31.5 (26.7-34.0) pg MCHC 33.3 (29.9-35.2) g/dL RDW 12.9 (11.0-15.0) % Plt Count 288 (150-450) 10^3/uL MPV 12.8 (9.5-13.5) fL Seg Neuts % (Manual) 84.0 H (43.0-75.0) Lymphocytes % (Manual) 14.0 L (20.5-60.0) % Monocytes % (Manual) 2.0 (1.7-12.0) % Eosinophils % (Manual) 0.0 L (0.9-7.0) % Basophils % (Manual) 0.0 L (0.2-2.0) % Neutrophils # (Manual) 21.33 H (1.4-6.5) 10^3/uL Lymphocytes # (Manual) 3.55 (1.20-3.80) 10^3/uL Monocytes # (Manual) 0.50 (0.30-0.80) 10^3/uL Eosinophils # (Manual) 0.00 (0.00-0.70) 10^3/uL Basophils # (Manual) 0.00 (0.00-0.10) 10^3/uL Discharge Plan Discharge Patient Disposition: Still a Patient
[2025-04-26 18:52] LABS: Troponin I High Sensitivity 9.8 pg/mL (4.0-51.3)
[2025-04-26 19:47] LABS: Lactate/Lactic Acid 2.6 mmol/L (0.4-2.0)
[2025-04-26] MEDS: MORPHINE SULFATE 4 MG/ML VIAL IV (19:53)
--- NOTE | 2025-04-26 19:53 | ED.ABDPAIN1 ---
HPI - Abdominal Pain General Chief Complaint: Abdominal Pain Stated Complaint: SHORT OF BREATH Time Seen by Provider: 04/26/25 17:57 Source: patient Mode of arrival: Wheelchair Limitations: no limitations History of Present Illness HPI narrative: This 49-year-old female was signed out to me at shift change. She presents for evaluation of generalized abdominal pain. Patient was seen and examined. She has a history of pancreatitis. She was at [facility] recently and had an ERCP and a biliary stent placed at that time. She thinks the doctor was Dr. Ziegler. She states she got out of [facility] on April 13. She states her pain is never completely gone away but today it became more severe. She is also having some nausea and vomiting. Her abdomen is flat, soft and diffusely tender. She is otherwise well-appearing. She had requested additional pain medication after being given IV Dilaudid. Labs are reviewed. She does have an elevated white count at 25 with a left shift. She has a stable hemoglobin. Liver function tests are mildly elevated. Her lipase is 240. Lactic acid is elevated at 2.6. She will be empirically given IV Zosyn in addition to pain medication and fluids. Patient CT scan took several hours during which time she was able to fall asleep and became more comfortable. I did review her OARRS report. She last had 21 Percocet prescribed on 04/22/2025. She has not had any additional episodes of nausea or vomiting. CT scan shows cholecystectomy with common bile duct stent in place, pancreatic duct stent in place, small volume of pneumobilia with probable decompressed small bowel loops in the right abdomen versus underlying mass but thought to be less likely. There were multiple small mesenteric nodes. Small volume of free fluid in the lower right pelvis. There is mild colon wall thickening with stranding along the margins of the colon suggestive of underlying colitis from infectious or inflammatory etiology. Stranding was noted along the left colic gutter. There is no free air or hematoma. No abscess or acute foreign body. The results of the scan were discussed with her. She states she had some diarrhea earlier today but otherwise is not having any diarrhea. She request to be discharged home. She requested an additional dose of pain medication prior to being released stating that she has not been able to sleep due to her ongoing pain. I discussed her elevated white count with her. She has not had a fever. There is no objective findings in her CT scan that would raise her white count. Chest x-ray was negative for acute findings. She is not ill-appearing toxic or septic. The elevated white count may be related to the colon wall thickening with stranding suggestive of underlying colitis. She is not having any specific symptoms that point toward colitis but this may be developing. She will be discharged home with a prescription for Augmentin, Zofran and refill for a short course of Percocet. She was encouraged to follow-up closely with [facility] gastroenterology. She states she has an appointment next week to get her stent removed. She was encouraged to return there if she had ongoing worsening pain, fevers chills or any concerns. She was given a disc copy of her CAT scan to share with her gastroenterology specialist at [facility]. Related Data Home Medications ?Medication ?Instructions ?Recorded ?Confirmed budesonide-formoterol HFA 80 2 puff inhalation Q12H 01/01/25 04/26/25 mcg-4.5 mcg/actuation aerosol inhaler (Symbicort) gabapentin 300 mg capsule 300 mg PO DAILY 01/01/25 04/26/25 levothyroxine 25 mcg tablet 25 mcg PO DAILY 04/08/25 04/26/25 metoprolol tartrate 25 mg tablet 25 mg PO Q12H 04/08/25 04/26/25 pantoprazole 40 mg tablet,delayed 40 mg PO DAILY 04/08/25 04/26/25 release oxycodone 5 mg tablet 5 mg PO Q8H 04/26/25 04/26/25 Previous Rx's ?Medication ?Instructions ?Recorded albuterol sulfate 90 mcg/actuation 2 inh inhalation Q4H PRN shortness 01/01/25 aerosol inhaler of breath or wheezing 7 days #8.5 grams Allergies Allergy/AdvReac Type Severity Reaction Status Date / Time No Known Drug Allergies Allergy Verified 04/08/25 22:05 [facility] Medical History Full dentures ?Z97.2 - Presence of dental prosthetic device (complete) (partial) (ICD-10) ?K08.109 - Complete loss of teeth, unspecified cause, unspecified class (ICD-10) Neck pain ?M54.2 - Cervicalgia (ICD-10) Depression ?F32.A - Depression, unspecified (ICD-10) Anxiety ?F41.9 - Anxiety disorder, unspecified (ICD-10) Asthma ?J45.909 - Unspecified asthma, uncomplicated (ICD-10) Chronic obstructive pulmonary disease ?J44.9 - Chronic obstructive pulmonary disease, unspecified (ICD-10) Migraine ?G43.909 - Migraine, unspecified, not intractable, without status migrainosus (ICD-10) Kidney stones ?N20.0 - Calculus of kidney (ICD-10) GERD (gastroesophageal reflux disease) ?K21.9 - Gastro-esophageal reflux disease without esophagitis (ICD-10) Hypothyroidism ?E03.9 - Hypothyroidism, unspecified (ICD-10) Hiatal hernia ?K44.9 - Diaphragmatic hernia without obstruction or gangrene (ICD-10) Colon polyp ?K63.5 - Polyp of colon (ICD-10) Ovarian cyst ?N83.209 - Unspecified ovarian cyst, unspecified side (ICD-10) Endometriosis ?N80.9 - Endometriosis, unspecified (ICD-10) Hypertension ?I10 - Essential (primary) hypertension (ICD-10) Back pain ?M54.9 - Dorsalgia, unspecified (ICD-10) Chronic neck pain ?M54.2 - Cervicalgia (ICD-10) ?G89.29 - Other chronic pain (ICD-10) Open fracture of right hand ?S62.91XB - Unspecified fracture of right wrist and hand, initial encounter for open fracture (ICD-10) Anxiety and depression ?F41.9 - Anxiety disorder, unspecified (ICD-10) ?F32.A - Depression, unspecified (ICD-10) HTN (hypertension) ?I10 - Essential (primary) hypertension (ICD-10) Bulging of cervical intervertebral disc ?M50.30 - Other cervical disc degeneration, unspecified cervical region (ICD-10) Osteoporosis ?M81.0 - Age-related osteoporosis without current pathological fracture (ICD-10) Surgical History History of tonsillectomy ?Z90.89 - Acquired absence of other organs (ICD-10) History of colonoscopy ?Z98.890 - Other specified postprocedural states (ICD-10) History of esophagogastroduodenoscopy (EGD) ?Z98.890 - Other specified postprocedural states (ICD-10) History of laparoscopy ?Z98.890 - Other specified postprocedural states (ICD-10) History of appendectomy ?Z90.49 - Acquired absence of other specified parts of digestive tract (ICD-10) History of hysterectomy ?Z90.710 - Acquired absence of both cervix and uterus (ICD-10) History of cholecystectomy ?Z90.49 - Acquired absence of other specified parts of digestive tract (ICD-10) Family History Other Brain tumor Cancer Family history of aneurysm Family history of diabetes mellitus Family history of hypertension Social History Within the past year, how often did you have a drink containing alcohol: never Score interpretation: A score less than 3 is consistent with normal alcohol consumption. Smoking status: Current every day smoker What tobacco products do you use: cigarettes Cigarettes per day: 30 Years smoked: 36 Smoking pack-years: 54.00 Non-prescribed substance use: cannabis (any form) Highest level of school completed/degree received: 11th grade Little interest or pleasure in doing things: not at all Feeling down, depressed, or hopeless: not at all Exam Constitutional Vital Signs, click to edit/add: Last Vital Signs Temp 98.3 F 04/26/25 17:17 Pulse 90 04/27/25 00:40 Resp 23 H 04/27/25 00:40 BP 149/95 H 04/27/25 00:30 Pulse Ox 96 04/26/25 23:40 O2 Del Method Room Air 04/26/25 17:17 Course Vital Signs Vital signs: Vital Signs Temperature 98.3 F 04/26/25 17:17 Pulse Rate 97 H 04/26/25 17:17 Respiratory Rate 22 H 04/26/25 17:17 Blood Pressure 161/96 H 04/26/25 17:17 Pulse Oximetry 98 04/26/25 17:17 Oxygen Delivery Method Room Air 04/26/25 17:17 Temperature 98.3 F 04/26/25 17:17 Pulse Rate 90 04/27/25 00:40 Respiratory Rate 23 H 04/27/25 00:40 Blood Pressure 149/95 H 04/27/25 00:30 Pulse Oximetry 96 04/26/25 23:40 Oxygen Delivery Method Room Air 04/26/25 17:17 MDM - Abdominal Pain Lab Data Labs: Lab Results 04/26/25 04/26/25 04/26/25 Range/Units 18:00 20:48 22:14 WBC 25.4 H (4.0-11.0) 10^3/uL RBC 4.38 (4.20-5.40) 10^6/uL Hgb 13.8 (12.0-16.0) g/dL Hct 41.4 (36.0-48.0) % MCV 94.5 (81.0-99.0) fL MCH 31.5 (26.7-34.0) pg MCHC 33.3 (29.9-35.2) g/dL RDW 12.9 (11.0-15.0) % Plt Count 288 (150-450) 10^3/uL MPV 12.8 (9.5-13.5) fL Seg Neuts % (Manual) 84.0 H (43.0-75.0) Lymphocytes % (Manual) 14.0 L (20.5-60.0) % Monocytes % (Manual) 2.0 (1.7-12.0) % Eosinophils % (Manual) 0.0 L (0.9-7.0) % Basophils % (Manual) 0.0 L (0.2-2.0) % Neutrophils # (Manual) 21.33 H (1.4-6.5) 10^3/uL Lymphocytes # (Manual) 3.55 (1.20-3.80) 10^3/uL Monocytes # (Manual) 0.50 (0.30-0.80) 10^3/uL Eosinophils # (Manual) 0.00 (0.00-0.70) 10^3/uL Basophils # (Manual) 0.00 (0.00-0.10) 10^3/uL Sodium 140 (136-145) mmol/L Potassium 3.5 (3.5-5.1) mmol/L Chloride 99 (98-107) mmol/L Carbon Dioxide 30.2 (21.0-32.0) mmol/L Anion Gap 14.3 BUN 13.0 (7.0-18.0) mg/dL Creatinine 0.65 (0.55-1.02) mg/dL Est GFR ( Amer) >60 (>=60 mL/min/1.73m^2) Est GFR (Non-Af Amer) >60 (>=60 mL/min/1.73m^2) BUN/Creatinine Ratio 20.0 Glucose 129 H (74-106) mg/dL Lactate 2.6 H* 0.8 (0.4-2.0) mmol/L Calcium 10.4 H (8.5-10.1) mg/dL Total Bilirubin 1.4 H (0.2-1.0) mg/dL AST 16 (15-37) U/L ALT 11 L (14-59) U/L Alkaline Phosphatase 159 H (46-116) U/L Troponin I High Sens 9.8 (4.0-51.3) pg/mL Total Protein 8.4 H (6.4-8.2) g/dL Albumin 3.2 L (3.4-5.0) g/dL Globulin 5.2 g/dL Albumin/Globulin Ratio 0.6 Lipase 240.0 H (16.0-77.0) U/L Urine Color Yellow (YELLOW) Urine Clarity Clear (CLEAR) Urine pH 8.5 (5.0-9.0) Ur Specific [place] 1.020 (1.005-1.025) Urine Protein 30 A (NEG/TRACE) mg/dL Urine Glucose (UA) Negative (NEGATIVE) mg/dL Urine Ketones Negative (NEGATIVE) mg/dL Urine Occult Blood Negative (NEGATIVE) Urine Nitrite Negative (NEGATIVE) Urine Bilirubin Negative (NEGATIVE) Urine Urobilinogen 1.0 (0.2-1.0) EU/dL Ur Leukocyte Esterase Negative (NEGATIVE) Urine RBC None seen (0-2) #/HPF Urine WBC 2-5 A (NONE SEEN) #/HPF Ur Squamous Epith Cells Few A (NONE/RARE) #/LPF Urine Crystals Seen A (None Seen) #/HPF Amorphous Sediment Rare Urine Bacteria None seen (NONE SEEN) #/HPF Urine Casts None seen (NONE SEEN) #/LPF Urine Mucus Small A (NONE SEEN) Ur Culture Indicated? No Discharge Plan Discharge Patient Disposition: Still a Patient
[2025-04-26] MEDS: PIPERACILLIN SODIUM/TAZOBACTAM 3.375 GM in 0.9 % SODIUM CHLORIDE 50 ML IV (20:22)
[2025-04-26 21:19] LABS: Lactate/Lactic Acid 0.8 mmol/L (0.4-2.0)
--- NOTE | 2025-04-26 21:48 | PC.NURSE ---
Pt states her pain is back up to a 7-8. MD aware. NNO received.
[2025-04-26 22:19] LABS: Bilirubin Urine NEGATIVE (NEGATIVE); Blood Urine NEGATIVE (NEGATIVE); Clarity Urine CLEAR (CLEAR); Color Urine YELLOW (YELLOW); Glucose Urine UA NEGATIVE (NEGATIVE); Ketones Urine NEGATIVE (NEGATIVE); Leukocyte Esterase Urine NEGATIVE (NEGATIVE); Nitrite Urine NEGATIVE (NEGATIVE); Protein Urine 30 mg/dL (NEG/TRACE); pH Urine 8.5 (5.0-9.0)
[2025-04-26] MEDS: HYDROMORPHONE HCL 1 MG/ML CARTRIDGE IV (22:21)
[2025-04-26] MEDS: FAMOTIDINE/PF 20 MG/2 ML VIAL IV (22:25)
[2025-04-26 22:26] LABS: Amorphous Sediment Urine RARE; Bacteria Urine NONE SEEN #/HPF (NONE SEEN); Cast Seen? NONE SEEN #/LPF (NONE SEEN); Crystals Seen? Seen #/HPF (None Seen); Mucus Urine SMALL (NONE SEEN); RBC Urine NONE SEEN #/HPF (0-2); Squamous Epithelial Cell Urine FEW #/LPF (NONE/RARE); Urine Culture Indicated NO
--- NOTE | 2025-04-26 22:55 | PC.NURSE ---
Pt states that pain is mostly relieved, and is tolerable at this time.
[2025-04-27] VITALS: BP 176/115; PULSE 93
[2025-04-27 00:10] VITALS: PULSE 93
[2025-04-27 00:20] VITALS: PULSE 90
[2025-04-27 00:30] VITALS: BP 149/95; PULSE 85
[2025-04-27 00:40] VITALS: PULSE 90
--- NOTE | 2025-04-27 00:59 | PC.NURSE ---
CT result just now received.
[2025-04-27] MEDS: HYDROMORPHONE HCL 1 MG/ML CARTRIDGE IV (01:14)
[2025-04-27 14:42] LABS: A. calcoaceticus-baumannii Cpx NOT DETECTED (NOT DETECTE); Bacteroides fragilis NOT DETECTED (NOT DETECTE); Candida albicans NOT DETECTED (NOT DETECTE); Candida auris NOT DETECTED (NOT DETECTE); Candida glabrata NOT DETECTED (NOT DETECTE); Candida krusei NOT DETECTED (NOT DETECTE); Candida parapsilosis NOT DETECTED (NOT DETECTE); Candida tropicalis NOT DETECTED (NOT DETECTE); Cryptococcus neoformans/gattii NOT DETECTED (NOT DETECTE); Enterobacter cloacae complex NOT DETECTED (NOT DETECTE); Enterobacterales NOT DETECTED (NOT DETECTE); Enterococcus faecalis NOT DETECTED (NOT DETECTE); Enterococcus faecium NOT DETECTED (NOT DETECTE); Haemophilus influenzae NOT DETECTED (NOT DETECTE); Klebsiella aerogenes NOT DETECTED (NOT DETECTE); Klebsiella pneumoniae group NOT DETECTED (NOT DETECTE); Listeria monocytogenes NOT DETECTED (NOT DETECTE); Neisseria meningitidis NOT DETECTED (NOT DETECTE); Proteus spp. NOT DETECTED (NOT DETECTE); Pseudomonas aeruginosa NOT DETECTED (NOT DETECTE); Salmonella spp. NOT DETECTED (NOT DETECTE); Serratia marcescens NOT DETECTED (NOT DETECTE); Staphylococcus epidermidis NOT DETECTED (NOT DETECTE); Staphylococcus lugdunensis NOT DETECTED (NOT DETECTE); Stenotrophomonas maltophilia NOT DETECTED (NOT DETECTE); Streptococcus agalactiae NOT DETECTED (NOT DETECTE); Streptococcus pneumoniae NOT DETECTED (NOT DETECTE); Streptococcus pyogenes NOT DETECTED (NOT DETECTE); Streptococcus spp. NOT DETECTED (NOT DETECTE)
[2025-04-27 15:56] LABS: Source BLOOD
[2025-04-27 15:59] LABS: Staphylococcus spp. DETECTED (NOT DETECTE)
--- NOTE | 2025-05-01 16:31 | PC.NURSE ---
LEFT MESSAGE FOR PT TO CALL BACK FOR PENDING CULTURE RESULTS. NEW MEDICATION CALLED TO PT PHARMACY
== END 2025-04-27 01:24 | disposition home or self-care (01) ==
PROVIDERS: Emergency Medicine; Emergency Provider Emergency Medicine; PCP Family Medicine
DX: K52.9 Noninfective gastroenteritis and colitis, unspecified (principal); R10.84 Generalized abdominal pain; D72.829 Elevated white blood cell count, unspecified; Z90.49 Acquired absence of other specified parts of digestive tract; Z98.890 Other specified postprocedural states; Z90.710 Acquired absence of both cervix and uterus; F17.210 Nicotine dependence, cigarettes, uncomplicated
CPT/HCPCS: 36415; 71045; 74176; 80053; 81001; 83605; 83690; 84484; 85007; 85027; 87040; 87077; 87150; 87186; 93005; 96361; 96365; 96375; 96376; 99285; J0780; J1171; J2270; J2543; J3490

== ENCOUNTER 2025-05-25 19:35 | Emergency (ER) | payer OTHER, SELFPAY ==
[2025-05-25 19:39] VITALS: BP 171/108; PULSE 99; TEMP 38.8; O2SAT 100; BMI 16.4
--- NOTE | 2025-05-25 19:40 | ECG_ITS ---
[facility] Test Date: 2025-05-25 Pat Name: SULY THORNE Department: Room: - Gender: Female Direct Support Professional: : 1975 Requested By: [id number] Order Number: [id number] Reading MD: ZIYAD FRAGA Measurements Intervals [place] Rate: 93 P: 73 HI: 114 QRS: 76 QRSD: 92 T: 70 QT: 384 QTc: 435 Interpretive Statements 1100 Sinus rhythm 2210 Short HI interval 9150 abnormal ECG Compared to ECG 04/26/2025 17:54:45 No significant changes Electronically Signed On 05-27-2025 13:27:47 EDT by ZIYAD FRAGA
--- NOTE | 2025-05-25 19:59 | CT_ITS ---
[address] [address] Patient Name: SULY THORNE MRN: [id number] date: 1975 Sex: F Assigned Patient Location: ER Current Patient Location: Accession/Order Number: [id number] Exam Date: 05/25/2025 20:47 Report Date: 05/25/2025 20:54 At the request of: MANSOOR BLACK MD Procedure: CT angio chest CT angio chest 05/25/2025 8:36 PM SIGN AND SYMPTOMS: ^fever, chest pain, smoker CONTRAST: 100 mL of intravenous Omnipaque 350 TECHNIQUE: Multidetector CT axial slices of the chest were obtained with IV contrast. Multiplanar and 3-D reformats were performed and viewed on a separate workstation and reviewed to further define anatomy and possible pathology. CT was performed with one or more of the following dose reduction techniques: Automated exposure control, adjustment of the mA and/or kV according to patient size, or use of iterative reconstruction technique. COMPARISON: None. FINDINGS: Lower neck: Thyroid gland within normal limits, no supraclavicle adenopathy. Vessels: Within normal limits. No pulmonary embolism Mediastinum and Maria De Jesus: Within normal limits. Heart: Normal size. No pericardial effusion. Airways: Within normal limits Lungs: Emphysematous changes are noted in the lung parenchyma. There is a 3 mm calcified granuloma in the left upper lobe anteriorly. Pleura: Within normal limits. Chest Wall: Within normal limits. Upper Abdomen: There is intrahepatic pneumobilia. This is new when compared to the prior exam. Bones: Degenerative changes are noted in the shoulders and thoracic spine. CT/CT angio chest IMPRESSION: No pulmonary embolism. Emphysematous changes are noted in the lung parenchyma. No focal consolidation. There is intrahepatic pneumobilia. This is new when compared to the prior exam a postoperative.. Impression dictated by: Abdi Sams M.D. 05/25/2025 8:54 PM Dictation Location: [place] [address] Electronically authenticated by: [id number] Y Date: 05/25/2025 20:54
--- NOTE | 2025-05-25 19:59 | CT_ITS ---
[address] [address] Patient Name: SULY THORNE MRN: [id number] date: 1975 Sex: F Assigned Patient Location: ER Current Patient Location: ER Accession/Order Number: [id number] Exam Date: 05/25/2025 21:11 Report Date: 05/25/2025 21:20 At the request of: MANSOOR BLACK MD Procedure: CT abdomen pelvis w con CT abdomen pelvis w con 05/25/2025 8:36 PM SIGNS AND SYMPTOMS: Right-sided chest pain, fever, recent common bile duct stent removal TECHNIQUE: Multidetector ct axial images of the abdomen and pelvis were obtained without IV contrast. Multiplanar reformats were performed and reviewed to further define anatomy and possible pathology. CT was performed with one or more of the following dose reduction techniques: Automated exposure control, adjustment of the mA and/or kV according to patient size, or use of iterative reconstruction technique. 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 There is a 9 mm cyst in the right hepatic lobe. Bile Ducts: Intrahepatic pneumobilia is noted. Gallbladder: Previously removed Pancreas: Within normal limits. Spleen: There is an 8 mm cyst in the spleen. Adrenals: Within normal limits. Kidneys: There is a simple cyst in the left renal cortex requiring no further follow-up. Pelvis: Reproductive Organs: No pelvic masses. Ureters: Within normal limits. Bladder: Within normal limits. Bowel: Normal caliber. Mesenteric Lymph Nodes: No enlarged mesenteric lymph nodes. Peritoneum: No ascites or free air, no fluid collection. Vessels: Atherosclerotic changes are noted in the abdominal aorta and its branches. Retroperitoneum: Within normal limits. Abdominal Wall: Within normal limits. Bones: Within normal limits. 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 There is intrahepatic pneumobilia. This is presumably a result of previous cholecystectomy. Additional chronic findings are noted as above. Impression dictated by: Abdi Sams M.D. 05/25/2025 9:20 PM Dictation Location: [place] [address] Electronically authenticated by: [id number] Y Date: 05/25/2025 21:20
[2025-05-25 20:00] VITALS: O2SAT 100
--- NOTE | 2025-05-25 20:01 | ED_ITS ---
HPI HPI - General Adult General Chief complaint: Chest Pain Stated complaint: FEVER, CHEST PAIN Time Seen by Provider: 05/25/25 19:37 Source: patient Mode of arrival: walk-in Limitations: no limitations History of Present Illness HPI narrative: This 49-year-old female with a history of chronic pancreatitis who recently had a biliary stent placed at [facility] then removed in April and is a smoker presents for evaluation of fever, cough, right sided chest pain and generalized abdominal pain. Symptoms started today. She states her temperature at home was 102. She has an occasional dry cough. She has mid abdominal pain. She denies any nausea vomiting or diarrhea. She denies any sore throat or runny nose. She denies any sick contacts. She denies any urinary symptoms. Related Data Home Medications ?Medication ?Instructions ?Recorded ?Confirmed budesonide-formoterol HFA 80 2 puff inhalation Q12H 04/26/25 mcg-4.5 mcg/actuation aerosol inhaler (Symbicort) gabapentin 300 mg capsule 300 mg PO DAILY 01/01/25 levothyroxine 25 mcg tablet 25 mcg PO DAILY 04/08/25 0 04/26/25 metoprolol tartrate 25 mg tablet 25 mg PO Q12H 5 04/26/25 pantoprazole 40 mg tablet,delayed 40 mg PO DAILY 04/0804/26/25 release oxycodone 5 mg tablet 5 mg PO Q8H 04/26/25 5 Previous Rx's ?Medication ?Instructions ?Recorded albuterol sulfate 90 mcg/actuation 2 inh inhalation Q4 H PRN shortness 01/01/25 aerosol inhaler of breath or wheezing 7 days #8.5 grams Allergies Allergy/AdvReac Type Severity Reaction Status Date / Time No Known Drug Allergies Allergy Verified 05/25/25 19:45 Opioid HPI Opioid Management Most Recent Opioid Data: Last Pain Scale 8 Today, 19:39 Review of Systems ROS Status of ROS 10 or more systems reviewed and unremark able except as noted in history and below PFSH PFS Medical History Full dentures ?Z97.2 - Presence of dental prosthetic device (complete) (partial) (ICD-10) ?K08.109 - Complete loss of teeth, unspecified cause, unspecified class (ICD- 10) Neck pain ?M54.2 - Cervicalgia (ICD-10) Depression ?F32.A - Depression, unspecified (ICD-10) Anxiety ?F41.9 - Anxiety disorder, unspecified (ICD-10) Asthma ?J45.909 - Unspecified asthma, uncomplicated (ICD-10) Chronic obstructive pulmonary disease ?J44.9 - Chronic obstructive pulmonary disease, unspecified (ICD-10) Migraine ?G43.909 - Migraine, unspecified, not intractable, without status migrainosus (ICD-10) Kidney stones ?N20.0 - Calculus of kidney (ICD-10) GERD (gastroesophageal reflux disease) ?K21.9 - Gastro-esophageal reflux disease without esophagitis (ICD-10) Hypothyroidism ?E03.9 - Hypothyroidism, unspecified (ICD-10) Hiatal hernia ?K44.9 - Diaphragmatic hernia without obstruction or gangrene (ICD-10) Colon polyp ?K63.5 - Polyp of colon (ICD-10) Ovarian cyst ?N83.209 - Unspecified ovarian cyst, unspecified side (ICD-10) Endometriosis ?N80.9 - Endometriosis, unspecified (ICD-10) Hypertension ?I10 - Essential (primary) hypertension (ICD-10) Back pain ?M54.9 - Dorsalgia, unspecified (ICD-10) Chronic neck pain ?M54.2 - Cervicalgia (ICD-10) ?G89.29 - Other chronic pain (ICD-10) Open fracture of right hand ?S62.91XB - Unspecified fracture of right wrist and hand, initial encounter for open fracture (ICD-10) Anxiety and depression ?F41.9 - Anxiety disorder, unspecified (ICD-10) ?F32.A - Depression, unspecified (ICD-10) HTN (hypertension) ?I10 - Essential (primary) hypertension (ICD-10) Bulging of cervical intervertebral disc ?M50.30 - Other cervical disc degeneration, unspecified cervical region (ICD- 10) Osteoporosis ?M81.0 - Age-related osteoporosis without current pathological fracture (ICD- 10) Surgical History History of tonsillectomy ?Z90.89 - Acquired absence of other organs (ICD-10) History of colonoscopy ?Z98.890 - Other specified postprocedural states (ICD-10) History of esophagogastroduodenoscopy (EGD) ?Z98.890 - Other specified postprocedural states (ICD-10) History of laparoscopy ?Z98.890 - Other specified postprocedural states (ICD-10) History of appendectomy ?Z90.49 - Acquired absence of other specified parts of digestive tract (ICD- 10) History of hysterectomy ?Z90.710 - Acquired absence of both cervix and uterus (ICD-10) History of cholecystectomy ?Z90.49 - Acquired absence of other specified parts of digestive tract (ICD- 10) Family History Other Brain tumor Cancer Family history of aneurysm Family history of diabetes mellitus Family history of hypertension Social History Within the past year, how often did you have a drink containing alcohol: never Score interpretation: A score less than 3 is consistent with normal alcohol consumption. Smoking status: Current every day smoker What tobacco products do you use: cigarettes Cigarettes per day: 30 Years smoked: 36 Smoking pack-years: 54.00 Non-prescribed substance use: cannabis (any form) Highest level of school completed/degree received: 11th grade Little interest or pleasure in doing things: not at all Feeling down, depressed, or hopeless: not at all Exam Narrative Exam Narrative: Vital signs and Nursing Notes reviewed: Patient has a fever of 101.8 and is tachypneic with a respirate of 22, pulse is elevated at 99 and blood pressure is elevated at 171/108, she is not hypoxic with pulse ox of 100% on room air General: Thin, chronically ill-appearing middle-aged female, she is awake, alert, oriented, lying comfortably on the stretcher HEENT: Normocephalic atraumatic, mucous membranes are slightly dry, no oral lesions noted Neck: Supple, no meningeal signs, no anterior or posterior cervical lymphadenopathy Chest: Coarse breath sounds bilaterally, tenderness to the right anterior chest wall CVS: Regular rate and rhythm S1-S2, no murmurs rubs or gallops, pulses are brisk and equal bilaterally ABD: Softly distended with a large right upper quadrant abdominal healed incision, there is tenderness in the right upper quadrant and mid abdomen with voluntary guarding Extremities: Moving all extremities, no lower extremity tenderness or swelling noted, negative Homans' sign, pulses are brisk and equal bilaterally Skin: Normal in appearance without rash,pallor, petechiae or purpura Neuro: No focal deficits Constitutional Vital Signs, click to edit/add: Last Vital Signs Temp 100.1 F 05/25/25 21:56 Pulse 86 05/25/25 21:56 Resp 22 H 05/25/25 19:39 BP 140/96 H 05/25/25 22:25 Pulse Ox 100 05/25/25 20:00 O2 Del Method Room Air 05/25/25 20:00 Course Vital Signs Vital signs: Vital Signs Temperature 101.8 F H 05/25/25 19:39 Pulse Rate 99 H 05/25/25 19:39 Respiratory Rate 22 H 05/25/25 19:39 Blood Pressure 171/108 H 05/25/25 19:39 Pulse Oximetry 100 05/25/25 19:39 Oxygen Delivery Method Room Air 05/25/25 19:39 Temperature 100.1 F 05/25/25 21:56 Pulse Rate 86 05/25/25 21:56 Respiratory Rate 22 H 05/25/25 19:39 Blood Pressure 140/96 H 05/25/25 22:25 Pulse Oximetry 100 05/25/25 20:00 Oxygen Delivery Method Room Air 05/25/25 20:00 Medical Decision Making MDM Narrative Medical decision making narrative: This 49-year-old female with a history of chronic pancreatitis who recently had a biliary stent placed and removed in April, approximately 3 weeks ago presents for evaluation of a fever that started earlier today Tmax 102 with right sided chest pain and generalized abdominal pain. She denies any sore throat, runny nose. She does have a dry cough but she attributes this to smoking. She has had some abdominal tenderness with mild distention. She had taken Tylenol prior to arrival but her temperature was still 101.8 upon arrival. She is chronically ill-appearing. Her lungs are clear but diminished. She thinks that the right side of her chest wall is swollen but I do not appreciate any redness or swelling in this area. Her abdomen is generally tender with healed incisions. She is not having any nausea vomiting or diarrhea. An EKG done upon arrival was a sinus rhythm at 93 bpm with a normal axis and no acute changes. An IV was established on a septic workup was ordered. 2 sets of blood cultures are pending at this time. She has a normal white count and stable hemoglobin. She is negative for COVID-19 and influenza. She is negative for strep. Troponin is normal at 10.3. BNP is normal. Electrolyte panel and liver function test were ordered. She has normal sodium, potassium is low at 2.8. BUN and creatinine are stable. Urine is positive for 5-10 white blood cells per high-power field but otherwise normal.. Bilirubin, AST and ALT are all normal. Alkaline phosphatase is elevated at 130. CT scan of the chest abdomen pelvis was ordered due to the complicated nature of this patient with history of pancreatitis, multiple abdominal surgeries and recent removal of biliary stent as well as tobacco use. CT scan of the chest does not show any acute infiltrate but does show pneumobilia which is new compared to prior studies. CT scan of the abdomen confirms the intrahepatic pneumobilia with an 8 mm cyst in the spleen, simple cyst in the left renal cortex, thrombus within the portal vein in the left hepatic lobe with hypoenhancement of the left hepatic lobe as a result and a 9 mm cyst in the right hepatic lobe. She had no enlarged mesenteric lymph nodes, no ascites or free air, no fluid collection, atherosclerotic changes noted in the abdominal aorta and its branches, normal retroperitoneum, normal abdominal wall. She was given 30 cc/kg of IV fluids, 4 mg of morphine, IV Toradol to help with her fever. Potassium was replaced orally and parenterally. She was empirically treated with Zosyn for her fever status post abdominal instrumentation/surgery The results of these findings and the patient's presentation were discussed with Dr. Dimas from [facility]. He suggest the patient be transferred there for further evaluation and treatment and consultation with vascular surgery.. The case was then discussed with the hospitalist at [facility] Dr. Romo, She suggests that we start the patient on a heparin drip. These findings were all discussed with the patient who is agreeable to transfer and will be started on heparin in the emergency department. Differential Diagnosis Differential Diagnosis: Pneumonia, sepsis, intra-abdominal infection, pancreatitis, UTI, pulmonary Medical Records Medical records reviewed: Yes I reviewed the patient's medical records Lab Data Lab results reviewed: Yes I reviewed the patient's lab results Labs: Lab Results 05/25/25 05/25/25 05/25/25 Range/Units 19:50 20:03 20:05 WBC 9.5 (4.0-11.0) 10^3/uL RBC 3.93 L (4.20-5.40) 10^6/uL Hgb 12.3 (12.0-16.0) g/dL Hct 37.9 (36.0-48.0) % MCV 96.4 (81.0-99.0) fL MCH 31.3 (26.7-34.0) pg MCHC 32.5 (29.9-35.2) g/dL RDW 13.6 (11.0-15.0) % Plt Count 180 (150-450) 10^3/uL MPV 10.3 (9.5-13.5) fL Neut % (Auto) 81.7 H (43.0-75.0) % Lymph % (Auto) 10.8 L (20.5-60.0) % [place] % (Auto) 5.6 (1.7-12.0) % Eos % (Auto) 0.4 L (0.9-7.0) % Baso % (Auto) 0.2 (0.2-2.0) % Neut # (Auto) 7.8 H (1.4-6.5) 10^3/uL Lymph # (Auto) 1.0 L (1.2-3.8) 10^3/uL [place] # (Auto) 0.5 (0.3-0.8) 10^3/uL Eos # (Auto) 0.0 (0.0-0.7) 10^3/uL Baso # (Auto) 0.0 (0.0-0.1) 10^3/uL Abs Immat Gran (auto) 0.12 H (0.00-0.03) 10^3/uL Imm/Tot Granulo (auto) 1.3 H (0.0-0.5) % PT 10.7 (9.0-11.6) sec INR 1.01 Sodium 139 (136-145) mmol/L Potassium 2.8 L* (3.5-5.1) mmol/L Chloride 101 (98-107) mmol/L Carbon Dioxide 29.3 (21.0-32.0) mmol/L Anion Gap 11.5 BUN 8.0 (7.0-18.0) mg/dL Creatinine 0.63 (0.55-1.02) mg/dL Est GFR ( Amer) >60 (>=60 mL/min/1.73m^2) Est GFR (Non-Af Amer) >60 (>=60 mL/min/1.73m^2) BUN/Creatinine Ratio 12.7 Glucose 90 (74-106) mg/dL Lactate 2.0 (0.4-2.0) mmol/L Calcium 8.8 (8.5-10.1) mg/dL Total Bilirubin 1.0 (0.2-1.0) mg/dL AST 17 (15-37) U/L ALT 19 (14-59) U/L Alkaline Phosphatase 130 H (46-116) U/L Troponin I High Sens 10.3 (4.0-51.3) pg/mL NT-Pro-B Natriuret Pep 886.0 (<=900.0) pg/mL Total Protein 7.5 (6.4-8.2) g/dL Albumin 3.3 L (3.4-5.0) g/dL Globulin 4.2 g/dL Albumin/Globulin Ratio 0.8 Urine Color (YELLOW) Urine Clarity (CLEAR) Urine pH (5.0-9.0) Ur Specific [place] (1.005-1.025) Urine Protein (NEG/TRACE) mg/dL Urine Glucose (UA) (NEGATIVE) mg/dL Urine Ketones (NEGATIVE) mg/dL Urine Occult Blood (NEGATIVE) Urine Nitrite (NEGATIVE) Urine Bilirubin (NEGATIVE) Urine Urobilinogen (0.2-1.0) EU/dL Ur Leukocyte Esterase (NEGATIVE) Urine RBC (0-2) #/HPF Urine WBC (NONE SEEN) #/HPF Ur Squamous Epith Cells (NONE/RARE) #/LPF Urine Crystals (None Seen) #/HPF Amorphous Sediment Urine Bacteria (NONE SEEN) #/HPF Urine Casts (NONE SEEN) #/LPF Urine Mucus (NONE SEEN) Ur Culture Indicated? Influenza Type A Ag Negative Influenza Type B Ag Negative SARS-CoV-2 Ag (CV2AG) Negative (NEGATIVE) Streptococcus Screen Negative 05/25/25 Range/Units 20:13 WBC (4.0-11.0) 10^3/uL RBC (4.20-5.40) 10^6/uL Hgb (12.0-16.0) g/dL Hct (36.0-48.0) % MCV (81.0-99.0) fL MCH (26.7-34.0) pg MCHC (29.9-35.2) g/dL RDW (11.0-15.0) % Plt Count (150-450) 10^3/uL MPV (9.5-13.5) fL Neut % (Auto) (43.0-75.0) % Lymph % (Auto) (20.5-60.0) % [place] % (Auto) (1.7-12.0) % Eos % (Auto) (0.9-7.0) % Baso % (Auto) (0.2-2.0) % Neut # (Auto) (1.4-6.5) 10^3/uL Lymph # (Auto) (1.2-3.8) 10^3/uL [place] # (Auto) (0.3-0.8) 10^3/uL Eos # (Auto) (0.0-0.7) 10^3/uL Baso # (Auto) (0.0-0.1) 10^3/uL Abs Immat Gran (auto) (0.00-0.03) 10^3/uL Imm/Tot Granulo (auto) (0.0-0.5) % PT (9.0-11.6) sec INR Sodium (136-145) mmol/L Potassium (3.5-5.1) mmol/L Chloride (98-107) mmol/L Carbon Dioxide (21.0-32.0) mmol/L Anion Gap BUN (7.0-18.0) mg/dL Creatinine (0.55-1.02) mg/dL Est GFR ( Amer) (>=60 mL/min/1.73m^2) Est GFR (Non-Af Amer) (>=60 mL/min/1.73m^2) BUN/Creatinine Ratio Glucose (74-106) mg/dL Lactate (0.4-2.0) mmol/L Calcium (8.5-10.1) mg/dL Total Bilirubin (0.2-1.0) mg/dL AST (15-37) U/L ALT (14-59) U/L Alkaline Phosphatase (46-116) U/L Troponin I High Sens (4.0-51.3) pg/mL NT-Pro-B Natriuret Pep (<=900.0) pg/mL Total Protein (6.4-8.2) g/dL Albumin (3.4-5.0) g/dL Globulin g/dL Albumin/Globulin Ratio Urine Color Lt. yellow (YELLOW) Urine Clarity Clear (CLEAR) Urine pH 6.0 (5.0-9.0) Ur Specific [place] 1.020 (1.005-1.025) Urine Protein Trace (NEG/TRACE) mg/dL Urine Glucose (UA) Negative (NEGATIVE) mg/dL Urine Ketones Negative (NEGATIVE) mg/dL Urine Occult Blood Trace-i (NEGATIVE) Urine Nitrite Negative (NEGATIVE) Urine Bilirubin Negative (NEGATIVE) Urine Urobilinogen 2.0 A (0.2-1.0) EU/dL Ur Leukocyte Esterase Trace A (NEGATIVE) Urine RBC 2-5 A (0-2) #/HPF Urine WBC 5-10 A (NONE SEEN) #/HPF Ur Squamous Epith Cells Few A (NONE/RARE) #/LPF Urine Crystals Seen A (None Seen) #/HPF Amorphous Sediment Rare Urine Bacteria Trace A (NONE SEEN) #/HPF Urine Casts None seen (NONE SEEN) #/LPF Urine Mucus None seen (NONE SEEN) Ur Culture Indicated? Yes-[facility] Influenza Type A Ag Influenza Type B Ag SARS-CoV-2 Ag (CV2AG) (NEGATIVE) Streptococcus Screen Imaging Data x: Radiologist's impression: ITS Impressions Abdomen/Pelvis CT 05/25/25 19:59 IMPRESSION: There is thrombus within the portal veins in the left hepatic lobe with hypoenhancement of the left hepatic lobe as a result. There is intrahepatic pneumobilia. This is presumably a result of previous cholecystectomy. Additional chronic findings are noted as above. Impression dictated by: Abdi Sams M.D. 05/25/2025 9:20 PM Dictation Location: [place] [address] Electronically authenticated by: [id number] Y Date: 05/25/2025 21:20 Chest CTA 05/25/25 19:59 IMPRESSION: No pulmonary embolism. Emphysematous changes are noted in the lung parenchyma. No focal consolidation. There is intrahepatic pneumobilia. This is new when compared to the prior exam a postoperative.. Impression dictated by: Abdi Sams M.D. 05/25/2025 8:54 PM Dictation Location: [place] [address] Electronically authenticated by: [id number] Y Date: 05/25/2025 20:54 ECG Data Attestation: I personally reviewed and interpreted this ECG as follows: (Sinus rhythm with short CO interval at 93 bpm, normal axis, no acute ST segment elevation or T wave inversion) Discharge Plan Discharge Chief Complaint: Chest Pain Clinical Impression: Fever, Portal vein thrombosis, Abdominal pain, Hypokalemia Patient Disposition: [facility] Time of Disposition Decision: 22:37 Discharge Location: [facility] Condition: Good Mode of Transportation: EMS
[2025-05-25] MEDS: MORPHINE SULFATE 4 MG/ML VIAL IV ×2 (20:16→23:23)
[2025-05-25 20:21] LABS: Glucose Urine UA NEGATIVE (NEGATIVE)
[2025-05-25 20:21] LABS: Hematocrit 37.9 % (36.0-48.0); Hemoglobin 12.3 g/dL (12.0-16.0); Immature Granulocytes Abs Auto 0.12 10^3/uL (0.00-0.03); Immature Granulocytes Pct Auto 1.3 % (0.0-0.5); Lymphocytes Absolute Auto 1.0 10^3/uL (1.2-3.8); Mean Corpuscular HGB Conc 32.5 g/dL (29.9-35.2); Mean Corpuscular Hemoglobin 31.3 pg (26.7-34.0); Mean Corpuscular Volume 96.4 fL (81.0-99.0); Platelet Count 180 10^3/uL (150-450); Red Blood Count 3.93 10^6/uL (4.20-5.40); White Blood Count 9.5 10^3/uL (4.0-11.0)
[2025-05-25 20:37] LABS: Cast Seen? NONE SEEN #/LPF (NONE SEEN); Crystals Seen? Seen #/HPF (None Seen); Urine Culture Indicated YES-FRMC
[2025-05-25 20:38] LABS: SARS-CoV-2 Ag NEGATIVE (NEGATIVE)
[2025-05-25 20:45] LABS: Lactate/Lactic Acid 2.0 mmol/L (0.4-2.0)
[2025-05-25 20:50] LABS: Alanine Aminotransferase 19 U/L (14-59); Albumin Globulin Ratio 0.8; Albumin Level 3.3 g/dL (3.4-5.0); Alkaline Phosphatase 130 U/L (46-116); Anion Gap 11.5; Aspartate Amino Transferase 17 U/L (15-37); Blood Urea Nitrogen 8.0 mg/dL (7.0-18.0); Calcium 8.8 mg/dL (8.5-10.1); Carbon Dioxide 29.3 mmol/L (21.0-32.0); Chloride 101 mmol/L (98-107); Estimated GFR (African America >60 (>=60 mL/min/1.73m^2); Estimated GFR (Non-African Ame >60 (>=60 mL/min/1.73m^2); Globulin 4.2 g/dL; Glucose 90 mg/dL (74-106); NT Pro B Type Natriuretic Pept 886.0 pg/mL (<=900.0); Sodium 139 mmol/L (136-145); Total Protein 7.5 g/dL (6.4-8.2)
[2025-05-25] MEDS: KETOROLAC TROMETHAMINE 30 MG/ML VIAL IVP (20:55)
[2025-05-25 20:57] LABS: Potassium 2.8 mmol/L (3.5-5.1)
[2025-05-25] MEDS: PIPERACILLIN SODIUM/TAZOBACTAM 3.375 GM in 0.9 % SODIUM CHLORIDE 50 ML IV (21:38)
[2025-05-25] MEDS: POTASSIUM CHLORIDE 10 MEQ ER TABLET 40 MEQ PO (21:40)
[2025-05-25 21:56] VITALS: PULSE 86; TEMP 37.8
[2025-05-25] MEDS: POTASSIUM CHLORIDE IN WATER 10 MEQ/100 ML PREMIX 100 MEQ IV (22:13)
[2025-05-25 22:21] LABS: INR 1.01; Prothrombin Time 10.7 sec (9.0-11.6)
[2025-05-25 22:25] VITALS: BP 140/96
[2025-05-25] MEDS: HEPARIN SODIUM,PORCINE/D5W 25,000 UNIT/500 ML IV.SOLN 9.471 UNIT IV (23:17)
[2025-05-26 11:46] LABS: A. calcoaceticus-baumannii Cpx NOT DETECTED (NOT DETECTE); Bacteroides fragilis NOT DETECTED (NOT DETECTE); Candida auris NOT DETECTED (NOT DETECTE); Candida glabrata NOT DETECTED (NOT DETECTE); Enterobacterales NOT DETECTED (NOT DETECTE); Enterococcus faecalis NOT DETECTED (NOT DETECTE); Enterococcus faecium NOT DETECTED (NOT DETECTE); Klebsiella aerogenes NOT DETECTED (NOT DETECTE); Klebsiella pneumoniae group NOT DETECTED (NOT DETECTE); Proteus spp. NOT DETECTED (NOT DETECTE); Salmonella spp. NOT DETECTED (NOT DETECTE); Serratia marcescens NOT DETECTED (NOT DETECTE); Staphylococcus epidermidis NOT DETECTED (NOT DETECTE); Staphylococcus lugdunensis NOT DETECTED (NOT DETECTE); Staphylococcus spp. NOT DETECTED (NOT DETECTE); Stenotrophomonas maltophilia NOT DETECTED (NOT DETECTE); Streptococcus pyogenes NOT DETECTED (NOT DETECTE); Streptococcus spp. NOT DETECTED (NOT DETECTE)
[2025-05-26 13:00] LABS: Source BLOOD
--- NOTE | 2025-05-26 14:02 | PC.NURSE ---
blood culture 1/2 positive for gram + bacilli, called results to [facility] and faxed over preliminary
== END 2025-05-26 00:30 | disposition short-term general hospital (02) ==
PROVIDERS: Emergency Provider Emergency Medicine; PCP Family Medicine
DX: I81 Portal vein thrombosis (principal); R50.9 Fever, unspecified; E87.6 Hypokalemia; R10.9 Unspecified abdominal pain; Z90.49 Acquired absence of other specified parts of digestive tract; Z90.710 Acquired absence of both cervix and uterus; F17.210 Nicotine dependence, cigarettes, uncomplicated; Z98.890 Other specified postprocedural states
CPT/HCPCS: 36415; 71275; 74177; 80053; 81001; 83605; 83880; 84484; 85025; 85610; 87040; 87070; 87086; 87150; 87804; 87811; 87880; 93005; 96365; 96367; 96375; 96376; 99285; J1644; J1885; J2270; J2405; J2543; J3480; Q9967

== ENCOUNTER 2025-08-20 20:15 | Emergency (ER) | payer OTHER, SELFPAY ==
[2025-08-20 20:20] VITALS: BP 166/105; PULSE 77; TEMP 37; O2SAT 100; BMI 19.7
--- OUTSIDE RECORDS SUMMARY | 2025-08-20 20:25 | XMS_ITS | CCD ---
Author Organization [facility] Care Team Providers Care Canvas Goods Maker Name Role Phone Woo FALCON Attending [...] ., DARRIN Admitting Unavailable [facility] [place] Care Unavailable KOBE HICKEY Consulting Unavailable MARKER ., DR MAX Attending Unavailable MARKER ., DR MAX Admitting Unavailable MARKER ., DR MAX Consulting Unavailable [facility] Primary Care Unavailable LEON, JIMMY Consulting Unavailable SHAMMO, TATUM Primary Care Unavailable SAI, VAUGHN Admitting Unavailable SAI, VAUGHN Attending Unavailable SAI, VAUGHN Consulting Unavailable WOO PAIGE Consulting Unavailable SHAMMO, TATUM Consulting Unavailable [facility] [place] Care Unavailable SAI, VAUGHN Admitting Unavailable SAI, VAUGHN Attending Unavailable BEAU, DR RJ Foster Consulting Unavailable HAY ., DR BIRD Consulting Unavailable SAI, VAUGHN Consulting Unavailable ALIA, CAROL ANN Admitting Unavailable ALIA, CAROL ANN Attending Unavailable [facility] Primary Care Unavailable SHAMMO, TATUM Admitting Unavailable SHAMMO, TATUM Attending Unavailable SHAMMO, TATUM Primary Care Unavailable SHAMMO, TATUM Consulting Unavailable [facility] Primary Care Unavailable LUIS EDUARDO, DR LAYA Bryan Admitting Unavailable LUIS EDUARDO, DR LAYA Bryan Attending Unavailable LUIS EDUARDO, DR LAYA Bryan Consulting Unavailable EDWARD, JIMMY Consulting Unavailable HAYDEN RECINOS Referring Unavailable TEJ, HAYDEN Garcia Admitting Unavailable HAYDEN RECINOS Attending Unavailable HAYDEN RECINOS Referring Unavailable RECINOSHAYDEN LEIJA Referring Unavailable RECINOSHAYDEN Referring Unavailable NO FAMILY, PHYSICIAN Primary Care Provider Unava ilable LEXI Griggs Emergency Provider [phone] Vikram Mckenna MD Attending Unavailable Vikram Mckenna MD Admitting Unavailable Unavailable, Physician Primary Care Unavailab Hayden Ferro DO Consulting Unavailjeremiah Spivey MD, Vani Chappell Primary Care Provider [phone] EVANS THOMAS Attending Unavailable Shanta Tripathi DO Attending Provider Zackery Griggs Attending Unavailable Zackery Griggs Admitting Unavailable NO FAMILY, PHYSICIAN Primary Care Unavailable Deuce, Shanta Hackett Attending Unavailable Marker, Shanta Hackett Admitting Unavailable HORANI, ASMITA Admitting Unavailable BEAU MAGANA Attending Unavailable VAUGHN GIBBS Referring Unavailable HORANI, ASMITA Admitting Unavailable AMARJIT IQBAL Attending Unavailable MARKER, SHANTA Garcia Referring Unavailable HORANI, ASMITA Admitting Unavailable HORANI, ASMITA Attending Unavailable NAZZAL, MUNIER Referring Unavailable HORANI, ASMITA Referring Unavailable BEATRIZ PANDYA Referring Unavailable NAZZAL, MUNIER Referring Unavailable HOSSEIN PORTILLO Referring Unavailable NAZZAL, MUNIER Referring Unavailable HORANI, ASMITA Referring Unavailable NAWRAS, ALI Admitting Unavailable NAWRAS, ALI Attending Unavailable YUKI ARIAS Referring Unavailable NAWRAS, ALI Referring Unavailable NAWRAS, ALI Admitting Unavailable NAWRAS, ALI Attending Unavailable SALAZAR JUSTICE Referring Unavailable NAWRAS, ALI Admitting Unavailable NAWRAS, ALI Attending Unavailable NAWRAS, ALI Referring Unavailable NAZZAL, MUNIER Referring Unavailable MASTER CAPONE Attending Unavailable Allergies Allergy Classification Reported Allergen(s) Allergy Type Date of Onset Reaction(s) Facility (2 sources) No Known Medication Allergies; Translations: [No Known Medication Allergies] Propensity to adverse reactions (disorder) [facility] Repository Medications Current Medications Medication Drug Class(es) Dates Sig (Normalized) Sig (Original) [id number] 200 actuat albuterol 0.09 mg/actuat metered dose [...] Date Documented Da te Episodic/Chronic Abdominal pain (5 sources) Unspecified abdominal pain; Translations: [Epigastric pain] Onset: 05-02-2022 Episodic Asthma (1 source) Unspecified asthma, uncomplicated; Translations: [UNSPECIFIED ASTHMA UNCOMPLICATED] Onset: 02-26-2023 Chronic Biliary tract disease (3 sources) Cholangiectasis; Translations: [Other specified diseases of biliary tract] Onset: 04-09-2025 01-07-2025 Chronic Biliary tract disease (2 sources) Calculus of bile duct without cholangitis or cholecystitis without obstruction; Translations: [Calculus of bile duct without cholangitis or cholecystitis without obstruction] Onset: 04-08-2025 Episodic Chronic obstructive pulmonary disease and bronchiectasis (4 sources) Chronic obstructive pulmonary disease with (acute) [...] Mood disorders; Translations: [DEPRESSION UNSPECIFIED] Onset: 02-26-2023 Nausea and vomiting (2 sources) Nausea with vomiting, unspecified; Translations: [Nausea with vomiting, unspecified] Onset: 05-01-2025 Episodic Nutritional deficiencies (3 sources) Vitamin D deficiency, unspecified; Translations: [Unspecified severe protein-calorie malnutrition] Onset: 08-18-2022 Chronic Osteoporosis (1 source) Age-related osteoporosis without current pathological fracture; Translations: [AGE-REL OSTEOPOR W/O CURR PATH FX] Onset: 01-15-2023 Chronic Other aftercare (1 source) Other medical terminologist (current) drug therapy; Translations: [OTH PRISON CURRENT DRUG THERAPY] Onset: 02-26-2023 Episodic Other connective tissue disease (4 sources) Pain in right hand; Translations: [PAIN IN RIGHT HAND] Onset: 03-05-2023 Episodic Other connective tissue disease (2 sources) Pain in finger; Translations: [Pain in unspecified [...] disorders (2 sources) Hypomagnesemia; Translations: [Hypomagnesemia] Onset: 05-01-2025 Chronic Other nutritional; endocrine; and metabolic disorders [...] Onset: 01-29-2023 Episodic Pancreatic disorders (not diabetes) (4 sources) Pseudocyst of pancreas; Translations: [Acute pancreatitis without necrosis or infection, unspecified] Onset: 04-09-2025 Episodic Phlebitis; thrombophlebitis and thromboembolism (2 sources) Portal vein thrombosis; Translations: [Portal vein thrombosis] Onset: 05-29-2025 Episodic Residual codes; unclassified (1 source) Acquired [...] Classification Problem Date Documented Da te Episodic/Chronic E Codes: Natural/environment (1 source) Exposure to [...] Test Name Value Interpretation Reference Range Facility Office Visiton 06-02-2025 Follow-up visit [id number] Kati Thorne 1975 F Date Provider Department Center 06/02/2025 [id number] CAPONE HVCVASENDO ID [facility] No family history on file Level of Service:71305 [place] OFFICE/OUTPATIENT ESTABLISHED LOW MDM 20 MIN Reason for Visit and Comments: Hospital Follow-up [832] Normal [facility] AFP TUMOR MARKERon ALPHA FETOPROTEIN TUMOR MARKER 8 ng/mL Normal 0-9 [facility] Comment on above: Result Comment: INTE RPRETIVE INFORMATION: Alpha Fetoprotein Tumor Marker The [facility] [place] Access DxI AFP method is used. Results obtained with different assay methods or kits cannot be used interchangeably. AFP is a valuable aid in the management of nonseminomatous testicular cancer patients when used in conjunction with information available from the clinical evaluation and other diagnostic procedures. Increased AFP concentrations have also been observed in ataxia telangiectasia, hereditary tyrosinemia, primary hepatocellular carcinoma, teratocarcinoma, gastrointestinal tract cancers with and without liver metastases, and in benign hepatic conditions such as acute viral hepatitis, chronic active hepatitis, and cirrhosis. The result cannot be interpreted as absolute evidence of the presence or absence of malignant disease. The result is not interpretable as a tumor marker in females. Access complete set of age- and/or gender-specific reference intervals for this test in the [facility] Test Directory ([facility]). Performed By: [facility] [address] [place] [id number] Dovetailer: Claus Membreno MD, PhD CLIA Number: [id number] Performed By: #### L [id number] ####[facility] ([facility])[address] [place] [address] MR ABDOMEN W AND WO CONTRAST on 05-28-2025 MR ABDOMEN W AND WO CONTRAST History: Pancreatitis, pancreatic pseudocysts, sphincterotomy, stent placement 03/31/2025, stent removal 05/07/2025, left hepatic vein thrombus. EXAM: MRI abdomen without and with contrast. IMPRESSION: CT abdomen pelvis 05/27/2025, 05/25/2025, 05/01/2025 FINDINGS: Persistent thrombosis left hepatic vein and with mosaic perfusion on arterial, portal venous phase imaging of the left lobe. Within that context, no evidence for a focal hepatic lesion. Middle, right hepatic veins, portal veins remain patent. Pneumobilia. Cholecystectomy. Small benign 1.2 cm hepatic cyst right lobe. Splenomegaly. Stable small splenic cyst. Pancreas enhances uniformly. Adrenal glands, kidneys within normal limits. No free fluid or developing peripancreatic fluid collections. IMPRESSION: Persistent thrombosis left hepatic vein, mosaic perfusion left liver lobe. Patent portal vein. No enhancing lesions. Electronically signed: Frances Elkins. Normal [facility] URINALYSIS WITH REFLEX CULTU REon 05-28-2025 BILIRUBIN, TOTAL PRESENCE IN URINE Negative Normal Negative [facility] Comment on above: Order Comment: Micro scopics not performed on urines with negative chemical reactions unless requested on original order. Performed By: #### L [id number] ####[facility] ([facility])[address] [place] [address] Clarity (U) Clear Normal Clear [facility] Comment on above: Order Comment: Micro scopics not performed on urines with negative chemical reactions unless requested on original order. Performed By: #### L [id number] ####[facility] ([facility])[address] [place] [address] Color (U) Light-Yellow Normal Colorless, Yellow, Light-Yellow [facility] Comment on above: Order Comment: Micro scopics not performed on urines with negative chemical reactions unless requested on original order. Performed By: #### L [id number] ####[facility] ([facility])[address] [place] [address] GLUCOSE (MG/DL) IN URINE Normal Normal Normal [facility] Comment on above: Order Comment: Micro scopics not performed on urines with negative chemical reactions unless requested on original order. Performed By: #### L [id number] ####[facility] ([facility])[address] [place] [address] HEMOGLOBIN PRESENCE IN URINE Negative Normal Negative [facility] Comment on above: Order Comment: Micro scopics not performed on urines with negative chemical reactions unless requested on original order. Performed By: #### L [id number] ####[facility] ([facility])[address] [place] [address] Ketones Ql (U) Trace Abnormal Negative [facility] Comment on above: Order Comment: Micro scopics not performed on urines with negative chemical reactions unless requested on original order. Performed By: #### L [id number] ####[facility] ([facility])[address] [place] [address] LEUKOCYTE ESTERASE PRESENCE IN URINE BY TEST STRIP Negative Normal Negative [facility] Comment on above: Order Comment: Micro scopics not performed on urines with negative chemical reactions unless requested on original order. Performed By: #### L [id number] ####[facility] ([facility])[address] [place] [address] NITRITE PRESENCE IN URINE Negative Normal Negative [facility] Comment on above: Order Comment: Micro scopics not performed on urines with negative chemical reactions unless requested on original order. Performed By: #### L [id number] ####[facility] ([facility])[address] [place] [address] pH (U) 7.0 [pH] Normal 5.0-8.0 [facility] Comment on above: Order Comment: Micro scopics not performed on urines with negative chemical reactions unless requested on original order. Performed By: #### L [id number] ####[facility])[address] [place] [address] Protein (U) [Mass/Vol] Negative Normal Negative [facility] Comment on above: Order Comment: Micro scopics not performed on urines with negative chemical reactions unless requested on original order. Performed By: #### L [id number] ####[facility] ([facility])[address] [place] [address] Specific gravity (U) [Rel density] 1.014 Normal 1.010-1.030 [facility] Comment on above: Order Comment: Micro scopics not performed on urines with negative chemical reactions unless requested on original order. Performed By: #### L [id number] ####[facility] ([facility])[address] [place] [address] UROBILINOGEN (MG/DL) IN URINE 2.0 mg/dL Abnormal Normal [facility] Comment on above: Order Comment: Micro scopics not performed on urines with negative chemical reactions unless requested on original order. Performed By: #### L [id number] ####[facility] ([facility])[address] [place] [address] 30on 05-27-2025 30 Daily Case Managemen t Update Multidisciplinary rounds have been completed. Barriers to Discharge: Vascular consulted for concern for left portal vein thrombosis; imaging shows evidence of patent portal vein with hepatopetal flow and no evidence of thrombosis. On CLD. GI consulted. Plan to discharge home when medically ready. Diet: Dietary Orders (From admission, onward) Start Ordered 05/26/25 050 Clear Liquid Diet Diet effective now Question: Room Service? Answer: No 05/26/25 050 Physician Expected Discharge Date: 05/30/2025 PT Six Click Score: OT Six Click Score: PT Recommendations: OT Recommendations: New Consults: Consult Orders (From admission, onward) Start Ordered 05/27/25 0913 Inpatient consult to Gastroenterology Once Specialty: Gastroenterology Provider: (Not yet assigned) Question Answer Comment [facility] GASTROENTEROLOGY TEAM Reason for Consult? abdominal pain, recent ERCP Level of Consultation Consultation and Management 05/27/25 0912 05/26/25 0506 Inpatient consult to Vascular Surgery Once Specialty: Vascular Surgery Provider: (Not yet assigned) Question Answer Comment Consulting Group VASCULAR SURGERY TEAM Reason for Consult? Left portal vein thrombosis Level of Consultation Consultation and Management 05/26/25 0505 Normal [facility] BASIC METABOLIC PANELon 07- Anion gap [Moles/Vol] 13 mmol/L Normal 7-20 [facility] Comment on above: Performed By: #### L [id number] #### [facility] ([facility]) [address] [place] [address] Calcium [Mass/Vol] 8.6 mg/dL Normal 8.6-10.3 [facility] Comment on above: Performed By: #### L [id number] #### [facility] ([facility]) [address] [place] [address] Chloride [Moles/Vol] 104 mmol/L Normal 98-107 [facility] Comment on above: Performed By: #### L [id number] #### [facility] ([facility]) [address] [place] [address] CO2 [Moles/Vol] 23 mmol/L Normal 21-31 [facility] Comment on above: Performed By: #### L [id number] #### [facility] ([facility]) [address] [place] [address] Creatinine [Mass/Vol] 0.48 mg/dL Low 0.60-1.20 [facility] Comment on above: Performed By: #### L [id number] #### [facility] ([facility]) [address] [place] [address] GLOMERULAR FILTRATION RATE ML/MIN/1.73 SQ M.PREDICTED 114.6 mL/min/1.73m*2 Normal >60.0 [facility] Comment on above: Result Comment: The [facility]???s estimated glomerular filtration rate (eGFR) will [...] group of individuals. Performed By: #### L [id number] #### [facility] ([facility]) [address] [place] [address] Glucose [Mass/Vol] 86 mg/dL Normal 70-100 [facility] Comment on above: Performed By: #### L [id number] #### [facility] ([facility]) [address] [place] [address] Potassium [Moles/Vol] 3.5 mmol/L Normal 3.5-5.1 [facility] Comment on above: Performed By: #### L [id number] #### [facility] ([facility]) [address] [place] [address] Sodium [Moles/Vol] 136 mmol/L Normal 136-145 [facility] Comment on above: Performed By: #### L [id number] #### [facility] ([facility]) [address] [place] [address] Urea nitrogen [Mass/Vol] 8 mg/dL Normal 7-25 [facility] Comment on above: Performed By: #### L [id number] #### [facility] ([facility]) [address] [place] [address] UREA NITROGEN/CREATININE (MASS RATIO) IN SER/PLAS 16.7 Normal [facility] Comment on above: Performed By: #### L [id number] #### [facility] ([facility]) [address] [place] [address] CBCon 05-27-2025 Erythrocyte distribution width (RBC) [Ratio] 13.5 % Normal 11.5-15.0 [facility] Comment on above: Performed By: #### L [id number] ####[facility] ([facility])[address] [place] [address] ERYTHROCYTE MEAN CORPUSCULAR HEMOGLOBIN CONCENTRATION (G/DL) BY AUTOMATED 33.0 g/dL Normal 32.0-35.0 [facility] Comment on above: Performed By: #### L [id number] ####[facility] ([facility])[address] [place] [address] Hematocrit (Bld) [Volume fraction] 37.0 % Normal 36.0-45.0 [facility] Comment on above: Performed By: #### L [id number] ####[facility] ([facility])[address] [place] [address] Hemoglobin (Bld) [Mass/Vol] 12.2 g/dL Normal 12.0-15.0 [facility] Comment on above: Performed By: #### L [id number] ####[facility] ([facility])[address] [place] [address] MCH (RBC) [Entitic mass] 31.0 pg Normal 27.0-33.0 [facility] Comment on above: Performed By: #### L [id number] ####[facility] ([facility] [place] [place] [address] MCV (RBC) [Entitic vol] 94.1 fL Normal 82.0-98.0 [facility] Comment on above: Performed By: #### L [id number] ####[facility] ([facility])[address] [place] [address] PLATELETS (10*3/UL) IN BLOOD AUTOMATED COUNT 161 10*3/uL Normal 150-400 [facility] Comment on above: Performed By: #### L [id number] ####[facility] ([facility])[address] [place] [address] RBC (Bld) [#/Vol] 3.93 10*6/uL Normal 3.80-5.00 [facility] Comment on above: Performed By: #### L [id number] ####[facility] ([facility])[address] [place] [address] WBC (Bld) [#/Vol] 7.98 10*3/uL Normal 4.00-10.60 [facility] Comment on above: Performed By: #### L [id number] ####[facility] ([facility])[address] [place] [address] CONSULTon 05-27-2025 CONSULT --- Attestation signed by David Quintanilla MD at 05/27/2025 3:51 PM I saw and evaluated the patient. I reviewed the resident's/fellow's note and agree with the findings and plan documents in the resident's/fellow's note Initial Gastroenterology/Hepato logy Consultation Note IDENTIFYING DATA PATIENT: Kati Thorne ADMIT DATE: 05/26/2025 TIME OF EVALUATION: 05/27/2025 10:00 AM Reason for Consult: Abdominal Pain w/ recent EGD stent removal Admitting Physician: Asmita Palomino MD HISTORY OF PRESENT ILLNESS Kati Thorne is a 49 y.o. female with past medical history of GERD, ERCP w/ sphincterotomy and stent placement in on the 04/08/2025, pancreatitis, and recent EGD and stent removal on 05/07/2025, and is a current smoker 1PPD for 15 years. She presented to [facility] ED on 05/25/2025 for right sided abdominal pain with complaints of feeling feverish and fatigue that begun that day. She denies sick contacts or trauma. CT abdomen at [facility] showed left portal vein thrombosis she also had CT scan of the chest which showed no acute infiltrate but did show pneumobilia which was started on IV fluids morphine was given along with Toradol for pain electrolytes were replaced. She was then transferred to [facility]. Once here, She received heparin and underwent US Portal Hepatic Venous Duplex that showed no abnormalities and completely patent vasculature. Lipase was 46, then 36 on repeat testing. Other remarkable labs were aPTT of 41.4, HgB of 10.2. Currently, she reports not sleeping well due to intense pain she rated at 9/10 in her right side. She states that this pain is waxing and waning in nature and does not have any correlation with dietary intake. She denies any nausea, fevers, chills, diarrhea, or shortness of breath at this time. The pain radiates down her right abdomen and around her flank. She is still producing bowel and bladder. Upon questioning, her family has extensive history of kidney stones and related issues. GI HISTORY SUMMARY TABLE Last EGD 05/07/25 Last colonoscopy Primary GI physician PAST MEDICAL, SURGICAL, FAMILY, and SOCIAL HISTORY Past Medical History: Medical History[1] Past Surgical History: Surgical History[2] Family History: Family History[3] Social History: Social History[4] Allergies: Allergies[5] MEDICATIONS Home Medications: Prior to Admission medications Medication Sig Start Date End Date Taking? Authorizing Provider albuterol 90 mcg/actuation inhaler Inhale 2 puffs if needed in the morning, at noon, and at bedtime for wheezing or shortness of breath. Historical Provider, amLODIPine (Norvasc) 5 mg tablet Take 5 mg by mouth in the morning. Historical Provider, amoxicillin-pot clavulanate (Augmentin) 875-125 mg tablet Take 1 tablet by mouth two times daily. Patient not taking: Reported on 05/07/2025 Historical Provider, gabapentin (Neurontin) 300 mg capsule Take 600 mg by mouth two times daily. Historical Provider, levothyroxine (Synthroid, Levoxyl) 25 mcg tablet Take 25 mcg by mouth before breakfast. Historical Provider, metoprolol tartrate (Lopressor) 25 mg tablet Take 1 tablet (25 mg) by mouth two times daily for 195 doses. 04/13/25 07/20/25 Amarjit Iqbal MD nicotine (Nicoderm CQ) 14 mg/[address] 1 patch on the skin 1 (one) time each day at the same time for 5 days. 04/13/25 04/18/25 Amarjit Iqbal MD ondansetron (Zofran) 4 mg tablet Take 1 tablet by mouth every 6 (six) hours during the day. 09/08/24 Historical Provider, pantoprazole (ProtoNix) 40 mg EC tablet Take 1 tablet (40 mg) by mouth two times daily. Do not crush, chew, or split. 04/13/25 05/13/25 Amarjit Iqbal MD Symbicort 80-4.5 mcg/actuation inhaler inhale 2 puffs into the lungs twice daily 03/29/25 Historical Provider, amLODIPine (Norvasc) 5 mg tablet Take 1 tablet (5 mg) by mouth in the morning. 05/03/25 05/26/25 Beau Magana MD Current Medications: amLODIPine, 5 mg, oral, Daily enoxaparin, 30 mg, subcutaneous, q24h MISTY gabapentin, 600 mg, oral, BID hydrALAZINE, 25 mg, oral, BID levothyroxine, 25 mcg, oral, Daily before breakfast metoprolol tartrate, 25 mg, oral, BID mometasone-formoterol, 1 puff, inhalation, BID nicotine, 1 patch, transdermal, q24h pantoprazole, 40 mg, oral, BID PRNs: acetaminophen, 650 mg, q6h PRN albuterol, 2 puff, q6h PRN morphine, 2 mg, q4h PRN ondansetron ODT, 4 mg, q8h PRN Or ondansetron, 4 mg, q8h PRN oxyCODONE-acetaminophen , 1 tablet, q6h PRN oxyCODONE-acetaminophen , 1 tablet, q6h PRN REVIEW OF SYSTEMS See HPI, otherwise ROS negative as below CONSTITUTIONAL: negative HEENT: negative RESPIRATORY: negative CARDIOVASCULAR: negative GASTROINTESTINAL: as in HPI GENITOURINARY: urinating normal, pain in her flank OBJECTIVE D (more content not included)... Normal [facility] CT ABDOMEN PELVIS W IV CONTR Marilyn 05-27-2025 CT ABDOMEN PELVIS W IV CONTRAST CLINICAL INFORMATION: Abdominal pain COMPARISON: CT abdomen pelvis with contrast 05/01/2025. TECHNIQUE: CT of the abdomen and pelvis with intravenous contrast. All CT scans at this facility use dose modulation, iterative reconstruction, and/or weight based dosing when appropriate to reduce radiation dose to as low as reasonably achievable. FINDINGS: LOWER CHEST: Mild centrilobular emphysematous changes. Mild bibasilar atelectasis. LIVER AND BILIARY: Interval removal of biliary stents with persistent mild pneumobilia. There is nonopacification of the left hepatic vein with geographically decreased attenuation/enhancement of the left hepatic lobe, suspicious for hepatic vein thrombosis. Similar mild intrahepatic biliary ductal dilatation and dilatation of the common hepatic duct up to 1.2 cm with air-fluid level noted. Stable hepatic cyst in the right hepatic lobe. The gallbladder surgically absent. PANCREAS: Interval resolution of the previously noted complex collections located in the lesser sac and adjacent to the inferior pancreatic head/uncinate process. Interval removal of a pancreatic duct stent without dilatation of the main pancreatic duct. SPLEEN: Not enlarged ADRENALS: Within normal limits. KIDNEYS, URETERS, AND BLADDER: Symmetric renal enhancement. Subcentimeter hypoattenuating lesions are statistically likely to represent cysts. The ureters are normal in course and caliber. The bladder demonstrates no acute abnormality. GI TRACT AND PERITONEUM: Persistent gastric wall thickening measuring up to 0.6 cm along the posterior margin and lesser curvature. Normal caliber large and small bowel no free intraperitoneal air or fluid. Moderate colonic stool burden. The appendix is surgically absent. VASCULATURE: The abdominal aorta is nonaneurysmal. Mild aortoiliac calcifications. The portal, splenic, and superior mesenteric veins appear patent. LYMPH NODES: No enlarged retroperitoneal or mesenteric lymph nodes by CT size criteria. REPRODUCTIVE ORGANS: Hysterectomy. MUSCULOSKELETAL: No acute osseous abnormality. Multilevel degenerative changes of the thoracolumbar spine. 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 * Interval removal of biliary and pancreatic duct stents with persistent dilatation of the common hepatic duct and pneumobilia. * Interval resolution of multiple peripancreatic fluid collections. This report contains a significant result and/or recommendation, which requires the attention of the licensed caregiver responsible for this patient. Therefore the findings in this report were directly conveyed via telephone to Dariela Whitmore RN at 4:56 PM on 05/27/2025. Approved by:Darius Valentin05/27/2025 4:57 PM. I, Santos Sanderson,have reviewed the image(s) and agree with the findings in this report. Electronically signed: Santos Sanderson. 9 Invalid Interpretation Code [facility] HEPATIC FUNCTION PANELon Albumin [Mass/Vol] 3.6 g/dL Normal 3.5-5.7 [facility] Comment on above: Performed By: #### L [id number] #### [facility] ([facility]) [address] [place] [address] ALP [Catalytic activity/Vol] 91 U/L Normal 34-104 [facility] Comment on above: Performed By: #### L [id number] #### [facility] ([facility]) [address] [place] [address] ALT [Catalytic activity/Vol] 5 U/L Low 7-52 [facility] Comment on above: Performed By: #### L [id number] #### [facility] ([facility]) [address] [place] [address] AST [Catalytic activity/Vol] 12 U/L Low 13-39 [facility] Comment on above: Performed By: #### L [id number] #### [facility] ([facility]) [address] [place] [address] Bilirubin [Mass/Vol] 0.8 mg/dL Normal 0.3-1.0 [facility] Comment on above: Performed By: #### L [id number] #### [facility] ([facility]) [address] [place] [address] Magnesium [Mass/Vol] 0.1 mg/dL Normal 0-0.2 [facility] Comment on above: Performed By: #### L [id number] #### [facility] ([facility]) [address] [place] [address] Protein [Mass/Vol] 6.6 g/dL Normal 6.0-8.3 [facility] Comment on above: Performed By: #### L [id number] #### [facility] ([facility]) [address] [place] [address] MAGNESIUMon 05-27-2025 Magnesium [Mass/Vol] 2.0 mg/dL Normal 1.9-2.7 [facility] Comment on above: Performed By: #### L [id number] ####[facility] ([facility])[address] [place] [address] 30on 05-26-2025 30 The patient is Moderately Stable - Low risk of patient condition declining or worsening The patient's goals for the shift include rest The clinical goals for the shift include vss Over the shift, the patient did not make progress toward the following goals. Barriers to progression include . Recommendations to address these barriers include . Normal [facility] 30 Daily Case Managemen t Update Multidisciplinary rounds have been completed. Barriers to Discharge: Pending clinical course and improvement in clinical condition. Transferred from [facility] where she presented with generalized abdominal pain. Recent admission at [facility] for epigastric abdominal pain has history of recent ERCP induced pancreatitis on also had biliary and pancreatic sphincterotomy's balloon dilatation and placement of stent with removal-GI consulted. From home with family Discharge plan is to return home when medically ready. Diet: Dietary Orders (From admission, onward) Start Ordered 05/26/25 050 Clear Liquid Diet Diet effective now Question: Room Service? Answer: No 05/26/25504 Physician Expected Discharge Date: 05/30/2025 Discharge Delays: PT Six Click Score: OT Six Click Score: PT Recommendations: OT Recommendations: New Consults: Consult Orders (From admission, onward) Start Ordered 05/26/25 0506 Inpatient consult to Vascular Surgery Once Specialty: Vascular Surgery Provider: (Not yet assigned) Question Answer Comment [employer] VASCULAR SURGERY TEAM Reason for Consult? Left portal vein thrombosis Level of Consultation Consultation and Management 05/26/25 0505 Normal [facility] 30 The patient is Moderately Stable - Low risk of patient condition declining or worsening The patient's goals for the shift include rest The clinical goals for the shift include vitals stable Over the shift, the patient did not make progress toward the following goals. Barriers to progression include . Recommendations to address these barriers include . Normal [facility] AMYLASEon 05-26-2025 Amylase [Catalytic activity/Vol] 65 U/L Normal 29-103 [facility] Comment on above: Performed By: #### L [id number] ####[facility] ([facility])[address] [place] [address] Amylase [Catalytic activity/Vol] 71 U/L Normal 29-103 [facility] Comment on above: Performed By: #### L [id number] #### [facility] ([facility]) [address] [place] [address] ANTI-XA (HEPARIN LEVEL)on HEPARIN UNFRACTIONATED (U/ML) IN PPP BY CHROMOGENIC METHOD <0.10 Invalid Interpretation Code 0.3-0.7 [facility] Comment on above: Order Comment: Check anti-Xa level every 6 hours while on heparin infusion, or per protocol. Result Comment: Nicolasa roxaban and Apixaban will interfere with the anti Xa assay used to monitor UFH and LMWH. Performed By: #### L [id number] ####[facility] ([facility])[address] [place] [address] APTTon 05-26-2025 ACTIVATED PARTIAL THROMBOPLASTIN TIME IN PPP BY COAGULATION ASSAY 41.4 Seconds High 25.0-35.0 [facility] Comment on above: Order Comment: Basel ine aPTT before initiating heparin infusion. Result Comment: Clin ical significance of the APTT is questionable in the presence of heparin. Performed By: #### L [id number] ####[facility] ([facility])[address] [place] [address] BLOOD CULTUREon 05-26-2025 Bacteria identified Cx Nom (Bld) No growth at 5 days Normal [facility] Comment on above: Order Comment: From a different site than #1. Performed By: #### L [id number] ####[facility] ([facility])[address] [place] [address] CBC WITH AUTO DIFFERENTIALon 05-26-2025 Basophils (Bld) [#/Vol] 0.02 10*3/uL Normal 0.00-0.20 [facility] Comment on above: Performed By: #### L [id number] #### [facility] ([facility]) [address] [place] [address] Basophils/100 WBC (Bld) 0.3 % Normal 0.0-1.0 [facility] Comment on above: Performed By: #### L [id number] #### [facility] ([facility] [address] [place] [address] Eosinophils (Bld) [#/Vol] 0.05 10*3/uL Normal 0.00-0.50 [facility] Comment on above: Performed By: #### L [id number] #### [facility] ([facility]) [address] [place] [address] Eosinophils/100 WBC (Bld) 0.7 % Normal 0.0-6.0 [facility] Comment on above: Performed By: #### L [id number] #### [facility] ([facility]) [address] [place] [address] Erythrocyte distribution width (RBC) [Ratio] 13.9 % Normal 11.5-15.0 [facility] Comment on above: Performed By: #### L [id number] #### [facility] ([facility]) [address] [place] [address] ERYTHROCYTE MEAN CORPUSCULAR HEMOGLOBIN CONCENTRATION (G/DL) BY AUTOMATED 32.2 g/dL Normal 32.0-35.0 [facility] Comment on above: Performed By: #### L [id number] #### [facility] ([facility]) [address] [place] [address] Hematocrit (Bld) [Volume fraction] 31.7 % Low 36.0-45.0 [facility] Comment on above: Performed By: #### L [id number] #### [facility] ([facility]) [address] [place] [address] Hemoglobin (Bld) [Mass/Vol] 10.2 g/dL Low 12.0-15.0 [facility] Comment on above: Performed By: #### L [id number] #### [facility] ([facility]) [address] [place] [address] Immature granulocytes (Bld) [#/Vol] 0.01 10*3/uL Normal 0.00-0.20 [facility] Comment on above: Performed By: #### L [id number] #### [facility] ([facility]) [address] [place] [address] Immature granulocytes/100 WBC (Bld) 0.1 % Normal 0.0-1.0 [facility] Comment on above: Performed By: #### L [id number] #### [facility] ([facility]) [address] [place] [address] Lymphocytes (Bld) [#/Vol] 1.39 10*3/uL Normal 1.20-4.00 [facility] Comment on above: Performed By: #### L [id number] #### [facility] ([facility]) [address] [place] [address] Lymphocytes/100 WBC (Bld) 20.7 % Normal 20.0-45.0 [facility] Comment on above: Performed By: #### L [id number] #### [facility] ([facility]) [address] [place] [address] MCH (RBC) [Entitic mass] 31.2 pg Normal 27.0-33.0 [facility] Comment on above: Performed By: #### L [id number] #### [facility] ([facility]) [address] [place] [address] MCV (RBC) [Entitic vol] 96.9 fL Normal 82.0-98.0 [facility] Comment on above: Performed By: #### L [id number] #### [facility] ([facility]) [address] [place] [address] Monocytes (Bld) [#/Vol] 0.45 10*3/uL Normal 0.10-1.00 [facility] Comment on above: Performed By: #### L [id number] #### [facility] ([facility]) [address] [facility] [place] [address] Monocytes/100 WBC (Bld) 6.7 % Normal 5.0-12.0 [facility] Comment on above: Performed By: #### L [id number] #### [facility] ([facility]) [address] [place] [address] Neutrophils (Bld) [#/Vol] 4.78 10*3/uL Normal 1.60-7.60 [facility] Comment on above: Performed By: #### L [id number] #### [facility] ([facility]) [address] [place] [address] Neutrophils/100 WBC (Bld) 71.5 % Normal 40.0-72.0 [facility] Comment on above: Performed By: #### L [id number] #### [facility] ([facility]) [address] [place] [address] NRBC (PER 100 WBCS) BY AUTOMATED COUNT 0.0 % Normal 0 [facility] Comment on above: Performed By: #### L [id number] #### [facility] ([facility]) [address] [place] [address] PLATELETS (10*3/UL) IN BLOOD AUTOMATED COUNT 159 10*3/uL Normal 150-400 [facility] Comment on above: Performed By: #### L [id number] #### [facility] ([facility]) [address] [place] [address] RBC (Bld) [#/Vol] 3.27 10*6/uL Low 3.80-5.00 [facility] Comment on above: Performed By: #### L [id number] #### [facility] ([facility]) [address] [place] [address] WBC (Bld) [#/Vol] 6.70 10*3/uL Normal 4.00-10.60 [facility] Comment on above: Performed By: #### L [id number] #### [facility] ([facility]) [address] [place] [address] COMPREHENSIVE METABOLIC PANE Bernardo 05-26-2025 Albumin [Mass/Vol] 3.2 g/dL Low 3.5-5.7 [facility] Comment on above: Performed By: #### L [id number] ####[facility] ([facility])[address] [place] [address] ALP [Catalytic activity/Vol] 86 U/L Normal 34-104 [facility] Comment on above: Performed By: #### L [id number] ####[facility] ([facility])[address] [place] [address] ALT [Catalytic activity/Vol] 8 U/L Normal 7-52 [facility] Comment on above: Performed By: #### L [id number] ####[facility] ([facility])[address] [place] [address] Anion gap [Moles/Vol] 6 mmol/L Low 7-20 [facility] Comment on above: Performed By: #### L [id number] ####[facility] ([facility])[address] [place] [address] AST [Catalytic activity/Vol] 10 U/L Low 13-39 [facility] Comment on above: Performed By: #### L [id number] ####[facility] ([facility])[address] [place] [address] Bilirubin [Mass/Vol] 1.1 mg/dL High 0.3-1.0 [facility] Comment on above: Performed By: #### L [id number] ####[facility] ([facility])[address] [place] [address] Calcium [Mass/Vol] 7.3 mg/dL Low 8.6-10.3 [facility] Comment on above: Performed By: #### L [id number] ####[facility] ([facility])[address] [place] [address] Chloride [Moles/Vol] 110 mmol/L High 98-107 [facility] Comment on above: Performed By: #### L [id number] ####[facility] ([facility])[address] [place] [address] CO2 [Moles/Vol] 26 mmol/L Normal 21-31 [facility] Comment on above: Performed By: #### L [id number] ####[facility] ([facility])[address] [place] [address] Creatinine [Mass/Vol] 0.52 mg/dL Low 0.60-1.20 [facility] Comment on above: Performed By: #### L [id number] ####[facility] ([facility])[address] [place] [address] GLOMERULAR FILTRATION RATE ML/MIN/1.73 SQ M.PREDICTED 112.4 mL/min/1.73m*2 Normal >60.0 [facility] Comment on above: Result Comment: The [facility]???s estimated glomerular filtration rate (eGFR) will [...] of individuals. Performed By: #### L [id number] ####[facility] ([facility])[address] [place] [address] Glucose [Mass/Vol] 93 mg/dL Normal 70-100 [facility] Comment on above: Performed By: #### L [id number] ####[facility] ([facility])[address] [place] [address] Potassium [Moles/Vol] 3.9 mmol/L Normal 3.5-5.1 [facility] Comment on above: Performed By: #### L [id number] ####[facility] ([facility])[address] [place] [address] Protein [Mass/Vol] 5.4 g/dL Low 6.0-8.3 [facility] Comment on above: Performed By: #### L [id number] ####[facility] ([facility])[address] [place] [address] Sodium [Moles/Vol] 138 mmol/L Normal 136-145 [facility] Comment on above: Performed By: #### L [id number] ####[facility] ([facility])[address] [place] [address] Urea nitrogen [Mass/Vol] 5 mg/dL Low 06-05 [facility] Comment on above: Performed By: #### L [id number] ####[facility] ([facility])[address] [place] [address] UREA NITROGEN/CREATININE (MASS RATIO) IN SER/PLAS 9.6 Normal [facility] Comment on above: Performed By: #### L [id number] ####[facility] ([facility])[address] [place] [address] LIPASEon 05-26-2025 LIPASE (U/L) IN SER/PLAS 36 U/L Normal [facility] Comment on above: Performed By: #### L [id number] ####[facility] ([facility])[address] [place] [address] LIPASE (U/L) IN SER/PLAS 46 U/L Normal [facility] Comment on above: Performed By: #### L [id number] #### [facility] ([facility]) [address] [place] [address] PLATELET COUNTon 05-26-2025 PLATELETS (10*3/UL) IN BLOOD AUTOMATED COUNT 154 10*3/uL Normal 150-400 [facility] Comment on above: Performed By: #### L [id number] #### [facility] ([facility]) [address] [place] [address] Urine Cultureon 05-25-2025 Bacteria identified Cx Nom (U) 50,000 colonies/ml mixed bacterial skin contaminants 2 Days PERFORMED BY: [place] [address] PATHOLOGIST MIXER RUNNER ROBERTO EASTMAN M.D. Normal [facility] Comment on above: Performed By: #### C UU #### [place] [address] [place] HPon 05-07-2025 HP H&P reviewed. The patient was examined and there are no changes to the H&P. The patient is presenting today to have an upper endoscopy for removal of the pancreaticobiliary stents. [facility] NURSNOTEon 05-07-[address] Saucedo at bedsid e speaking with patient and patient family member Discharge instructions reviewed with patient father at bedside. All questions answered at this time Candis Marley RN PACU [facility] POCT GLUCOSE METER UNSOLICIT ED RESULTSon 05-07-2025 Glucose [Mass/Vol] 84 mg/dL Normal 70-105 [facility] Comment on above: Order Comment: Waive d Testing in the ED is performed under the ED CLIA certificate #[id number]. Result Comment: pbar retcorson Performed By: #### L [id number] #### [facility]) [address] [place] [address] Prep for Procedureon 025 Prep for Procedure [id number] Kati Thorne 1975 Date Provider Department Center 05/07[facility]20[facility] history on file [facility] Telephoneon 05-05-2025 Telephone [phone] Kati Thorne 1975 Date Provider Department Center 05/05/2025 [facility] No family history on file [facility] 30on 05-03-2025 30 The patient is Moderately Stable - Low risk of patient condition declining or worsening The patient's goals for the shift include sleep The clinical goals for the shift include VSS, safety, comfort Problem: Pain - Adult Goal: Verbalizes/displays adequate comfort level or baseline comfort level Outcome: Progressing Flowsheets (Taken 05/02/2025 0327) Verbalizes/displays adequate comfort level or baseline comfort [...] from fall injury Outcome: Progressing Flowsheets (Taken 05/02/2025326) Free from fall injury: Assess patient frequently for physical needs Problem: Discharge Planning Goal: Discharge to home or other facility with appropriate resources Outcome: Progressing Flowsheets (Taken 05/02/2025326) Discharge to home or other facility with appropriate resources: Identify barriers to discharge with patient and caregiver Problem: Chronic Conditions and Co-morbidities Goal: Patient's chronic conditions and co-morbidity symptoms are monitored and maintained or improved Outcome: Progressing Flowsheets (Taken 05/02/2025326) Care Plan - Patient's Chronic Conditions and Co-Morbidity Symptoms are Monitored and Maintained or Improved: Monitor and assess patient's chronic conditions and comorbid symptoms for stability, deterioration, or improvement Normal [facility] HPon 05-03-2025 HP --- Attestation signed by Beatriz Uriarte MD at 05/03/2025 10:28 AM Discussed with fellow, agree with assessment and plan. Gastroenterology/Hepato logy Progress Note IDENTIFYING DATA PATIENT: Kati Thorne ADMIT DATE: 05/01/2025 TIME OF EVALUATION: 05/03/2025 8:39 AM Reason for Consult: Pancreatic Pseudocysts Admitting Physician: Beau Magana MD SUBJECTIVE/INTERVAL HISTORY Kati Thorne's overnight events were reviewed. No acute events overnight. Patient reports that her abdominal pain is significantly improved, and she is tolerating a regular low fat diet. She is anxious to go home. OBJECTIVE MEDICATIONS SCHEDULED: budesonide-formoteroL, 2 puff, inhalation, BID BETA enoxaparin, 40 mg, subcutaneous, Daily gabapentin, 600 mg, oral, BID levothyroxine, 25 mcg, oral, Daily before breakfast metoprolol tartrate, 25 mg, oral, BID nicotine, 1 patch, transdermal, q24h pantoprazole, 40 mg, oral, BID sucralfate, 1 g, oral, q6h MISTY PRNs: acetaminophen, 650 mg, q6h PRN albuterol, 2 puff, q4h PRN bisacodyl, 10 mg, Daily PRN hydrOXYzine pamoate, 25 mg, 4x daily PRN melatonin, 5 mg, Nightly PRN morphine, 2 mg, q6h PRN ondansetron ODT, 4 mg, q8h PRN Or ondansetron, 4 mg, q6h PRN oxyCODONE, 5 mg, q6h PRN polyethylene glycol, 17 g, Daily PRN Physical VITALS: BP 159/90 (BP Location: Right arm, Patient Position: Lying) Pulse 68 Temp 36.9 ???C (98.4 ???F) (Oral) Resp 16 Ht 1.549 m (5' 1 ) Wt 50.8 kg (112 lb) SpO2 98% BMI 21.16 kg/m??? GEN: Alert and oriented x3, NAD HEENT: Atraumatic, normocephalic CV: Regular rate and rhythm PULM: Breathing comfortably ABD: Soft, non-tender, non-distended NEURO: Moves all 4 extremities spontaneously LABS AND IMAGING CBC: Results from last 7 days Lab Units 05/02/25 0428 05/01/25 1726 WBC AUTO 10*3/uL 9.20 12.16* RBC AUTO 10*6/uL 3.06* 3.26* HEMOGLOBIN g/dL 9.6* 10.2* HEMATOCRIT % 29.7* 30.8* MCV fL 97.1 94.5 RDW % 13.2 13.1 PLATELETS AUTO 10*3/uL 284 207 PT/INR Results from last 7 days Lab Units 05/01/25 1726 PROTIME Seconds 14.0 INR 1.08 BMP: Results from last 7 days Lab Units 05/02/25 0428 05/01/25 1726 SODIUM mmol/L 139 135* POTASSIUM mmol/L 3.6 3.1* CHLORIDE mmol/L 103 97* BUN mg/dL 8 10 CREATININE mg/dL 0.53* 0.53* EGFR mL/min/1.73m*2 111.9 111.9 GLUCOSE mg/dL 82 87 LFTs: Results from last 7 days Lab Units 05/01/25 1726 BILIRUBIN TOTAL mg/dL 0.6 BILIRUBIN DIRECT mg/dL 0.2 ALK PHOS U/L 95 AST U/L 11* ALT U/L <3* ALBUMIN g/dL 3.1* TOTAL PROTEIN g/dL 5.9* B12/Folate/Iron studies: No results found for: [id number] , FOLATE , IRON , TIBC , UIBC , IRONSAT , FERRITIN Viral Hepatitis No results found for: HEPAIGM , HAV , HEPBSAG , HEPBSAB , HEPBEAB , HEPBIGM , HEPBCAB , HEPBCOREAB , HBVNAT , HCVSCR , HEPCAB , HCVNAT , HCVPCR , HCVTMA Liver workup No results found for: NOE , SMOOTHMUSCAB , CERULOPLSM , [id number] , TTGA , IGA , TSH , FREET4 , AFP Pancreatitis Lab Results Component Value Date LIPASE 159 (H) 05/01/2025 CALCIUM 8.1 (L) 05/02/2025 IMAGING: ASSESSMENT AND PLAN Kati Thorne is a 49 y.o. female with PMHx of recent ERCP 04/08/25 with biliary and pancreatic sphincterotomies with pancreatic stent placement, course complicated by post ERCP pancreatitis, who presents for abdominal pain, with CT showing pancreatic pseudocysts. Assessment Pancreatic pseudocysts Abdominal pain, appears to be chronic Patient reports persistent abdominal pain which has been similar severity since her ERCP. Of note, patient did have EUS for complaints of abdominal pain as well, and this appears to be unchanged. Plan Okay for full liquid diet, advance to regular low fat diet as tolerated Pain management, IV fluids, and supportive care as per primary team Discussed with Dr. Saucedo: Low overall suspicion that pancreatic pseudocysts are causing gastric outlet obstruction, as evidenced by CT and clinically. There is no indication for Axios stent at this time. Discussed pancreatic stent removal with the patient, she wishes to be discharged home and follow up for ERCP with stent removal as already scheduled on 04/06. There is no contraindication to discharge from a GI perspective. Patient already has follow up arranged with ERCP on 04/06, and a clinic appointment on 06/09. The case will be discussed with the attending physician Gastroenterology 6 am to 4 pm weekdays in house: [phone] 4 pm to 6 am or weekends: Please contact the stamp press operator to page the fellow physician relations representative [facility] NURSNOTEon 05-03-2025 NURSNOTE Patient's AVS and discharge packet discussed with patient no further questions. Patient's IV and telemetry were removed. Patient's home medication, Symbicort was returned to the patient. [facility] delivered the patient's discharge medications. Patient left the floor via wheelchair and stated her family would provide transportation at time of discharge. [facility] 30on 05-02-2025 30 The patient is Moderately Stable - Low risk of patient condition declining or worsening The patient's goals for the shift include The clinical goals for the shift include VSS Problem: Pain - Adult Goal: Verbalizes/displays adequate comfort level or baseline comfort level Outcome: Progressing Flowsheets (Taken 05/02/2025326) Verbalizes/displays adequate comfort level or baseline comfort [...] from fall injury Outcome: Progressing Flowsheets (Taken 05/02/2025326) Free from fall injury: Assess patient frequently for physical needs Problem: Discharge Planning Goal: Discharge to home or other facility with appropriate resources Outcome: Progressing Flowsheets (Taken 05/02/2025326) Discharge to home or other facility with appropriate resources: Identify barriers to discharge with patient and caregiver Problem: Chronic Conditions and Co-morbidities Goal: Patient's chronic conditions and co-morbidity symptoms are monitored and maintained or improved Outcome: Progressing Flowsheets (Taken 05/02/2025326) Care Plan - Patient's Chronic Conditions and Co-Morbidity Symptoms are Monitored and Maintained or Improved: Monitor and assess patient's chronic conditions and comorbid symptoms for stability, deterioration, or improvement [facility] BASIC METABOLIC PANELon 06-2 Anion gap [Moles/Vol] 8 mmol/L Normal 7-20 [facility] Comment on above: Performed By: #### L [id number] #### [facility] ([facility]) [address] [place] [address] Calcium [Mass/Vol] 8.1 mg/dL Low 8.6-10.3 [facility] Comment on above: Performed By: #### L [id number] #### [facility] ([facility]) [address] [place] [address] Chloride [Moles/Vol] 103 mmol/L Normal 98-107 [facility] Comment on above: Performed By: #### L [id number] #### [facility] ([facility]) [address] [place] [address] CO2 [Moles/Vol] 32 mmol/L High 21-31 [facility] Comment on above: Performed By: #### L [id number] #### [facility] ([facility]) [address] [place] [address] Creatinine [Mass/Vol] 0.53 mg/dL Low 0.60-1.20 [facility] Comment on above: Performed By: #### L [id number] #### [facility] ([facility]) [address] [place] [address] GLOMERULAR FILTRATION RATE ML/MIN/1.73 SQ M.PREDICTED 111.9 mL/min/1.73m*2 Normal >60.0 [facility] Comment on above: Result Comment: The [facility]???s estimated glomerular filtration rate (eGFR) will [...] group of individuals. Performed By: #### L [id number] #### [facility] ([facility]) [address] [place] [address] Glucose [Mass/Vol] 82 mg/dL Normal 70-100 [facility] Comment on above: Performed By: #### L [id number] #### [facility] ([facility]) [address] [place] [address] Potassium [Moles/Vol] 3.6 mmol/L Normal 3.5-5.1 [facility] Comment on above: Performed By: #### L [id number] #### [facility] ([facility]) [address] [place] [address] Sodium [Moles/Vol] 139 mmol/L Normal 136-145 [facility] Comment on above: Performed By: #### L [id number] #### [facility] ([facility]) [address] [place] [address] Urea nitrogen [Mass/Vol] 8 mg/dL Normal 7-25 [facility] Comment on above: Performed By: #### L [id number] #### [facility] ([facility]) [address] [place] [address] UREA NITROGEN/CREATININE (MASS RATIO) IN SER/PLAS 15.1 Normal [facility] Comment on above: Performed By: #### L [id number] #### [facility] ([facility]) [address] [place] [address] CBC WITH AUTO DIFFERENTIALon 05-02-2025 Basophils (Bld) [#/Vol] 0.02 10*3/uL Normal 0.00-0.20 [facility] Comment on above: Performed By: #### L [id number] #### [facility] ([facility]) [address] [address] Basophils/100 WBC (Bld) 0.2 % Normal 0.0-1.0 [facility] Comment on above: Performed By: #### L [id number] #### [facility] ([facility]) [address] [place] [address] Eosinophils (Bld) [#/Vol] 0.08 10*3/uL Normal 0.00-0.50 [facility] Comment on above: Performed By: #### L [id number] #### [facility] ([facility]) [address] [place] [address] Eosinophils/100 WBC (Bld) 0.9 % Normal 0.0-6.0 [facility] Comment on above: Performed By: #### L [id number] #### [facility] ([facility]) [address] [place] [address] Erythrocyte distribution width (RBC) [Ratio] 13.2 % Normal 11.5-15.0 [facility] Comment on above: Performed By: #### L [id number] #### [facility] ([facility]) [address] [place] [address] ERYTHROCYTE MEAN CORPUSCULAR HEMOGLOBIN CONCENTRATION (G/DL) BY AUTOMATED 32.3 g/dL Normal 32.0-35.0 [facility] Comment on above: Performed By: #### L [id number] #### [facility] ([facility]) [address] [place] [address] Hematocrit (Bld) [Volume fraction] 29.7 % Low 36.0-45.0 [facility] Comment on above: Performed By: #### L [id number] #### [facility] ([facility]) [address] [place] [address] Hemoglobin (Bld) [Mass/Vol] 9.6 g/dL Low 12.0-15.0 [facility] Comment on above: Performed By: #### L [id number] #### [facility] ([facility]) [address] [place] [address] Immature granulocytes (Bld) [#/Vol] 0.02 10*3/uL Normal 0.00-0.20 [facility] Comment on above: Performed By: #### L [id number] #### [facility] ([facility]) [address] [place] [address] Immature granulocytes/100 WBC (Bld) 0.2 % Normal 0.0-1.0 [facility] Comment on above: Performed By: #### L [id number] #### [facility] ([facility]) [address] [place] [address] Lymphocytes (Bld) [#/Vol] 1.69 10*3/uL Normal 1.20-4.00 [facility] Comment on above: Performed By: #### L [id number] #### [facility] ([facility]) [address] [place] [address] Lymphocytes/100 WBC (Bld) 18.4 % Low 20.0-45.0 [facility] Comment on above: Performed By: #### L [id number] #### [facility] ([facility]) [address] [facility] [address] MCH (RBC) [Entitic mass] 31.4 pg Normal 27.0-33.0 [facility] Comment on above: Performed By: #### L [id number] #### [facility] ([facility]) [address] [place] [address] MCV (RBC) [Entitic vol] 97.1 fL Normal 82.0-98.0 [facility] Comment on above: Performed By: #### L [id number] #### [facility] ([facility]) [address] [place] [address] Monocytes (Bld) [#/Vol] 0.73 10*3/uL Normal 0.10-1.00 [facility] Comment on above: Performed By: #### L [id number] #### [facility] ([facility]) [address] [place] [address] Monocytes/100 WBC (Bld) 7.9 % Normal 5.0-12.0 [facility] Comment on above: Performed By: #### L [id number] #### [facility] ([facility]) [address] [facility] [place] [address] Neutrophils (Bld) [#/Vol] 6.66 10*3/uL Normal 1.60-7.60 [facility] Comment on above: Performed By: #### L [id number] #### [facility] ([facility]) [address] [place] [address] Neutrophils/100 WBC (Bld) 72.4 % High 40.0-72.0 [facility] Comment on above: Performed By: #### L [id number] #### [facility] ([facility]) [address] [place] [address] NRBC (PER 100 WBCS) BY AUTOMATED COUNT 0.0 % Normal 0 [facility] Comment on above: Performed By: #### L [id number] #### [facility] ([facility]) [address] [place] [address] PLATELETS (10*3/UL) IN BLOOD AUTOMATED COUNT 284 10*3/uL Normal 150-400 [facility] Comment on above: Performed By: #### L [id number] #### [facility] ([facility]) [address] [place] [address] RBC (Bld) [#/Vol] 3.06 10*6/uL Low 3.80-5.00 [facility] Comment on above: Performed By: #### L [id number] #### [facility] ([facility]) [address] [place] [address] WBC (Bld) [#/Vol] 9.20 10*3/uL Normal 4.00-10.60 [facility] Comment on above: Performed By: #### L [id number] #### [facility] ([facility]) [address] [place] [address] CONSULTon 05-02-2025 CONSULT --- Attestation signed by Beatriz Uriarte MD at 05/02/2025 4:47 PM Seen and discussed with fellow, agree with assessment and plan. Initial Gastroenterology/Hepato logy Consultation Note IDENTIFYING DATA PATIENT: Kati Thorne ADMIT DATE: 05/01/2025 TIME OF EVALUATION: 05/02/2025 10:38 AM Reason for Consult: Pancreatic pseudocyst, abdominal pain, known patient Admitting Physician: Beau Magana MD HISTORY OF PRESENT ILLNESS Kati Thorne is a 49 y.o. female with PMHx of prior cholecystectomy, IBS, dilated CBD s/p ERCP 04/08/25 with biliary and pancreatic sphincterotomies, balloon dilation, and stent placement, c/b post-ERCP pancreatitis, who presents to the ED due to abdominal pain. GI is consulted for abdominal pain and pancreatic pseudocysts noted on CT Abdomen and Pelvis Of note, patient had a history of post-prandial epigastric abdominal pain radiating to the back with 10 lbs weight loss, which prompted initial evaluation with EUS and EGD 03/11/25. EUS was notable for diffusely dilated CBD with no choledocholithiasis or pancreatic mass. Patient subsequently underwent ERCP with biliary and pancreatic sphincterotomy 04/08/25. Her course was complicated by post ERCP pancreatitis for which patient was managed conservatively, and was discharged 04/13/25. Patient reports that she has had ongoing bilateral lower quadrant abdominal pain that is worsened by oral intake since her ERCP approximately one month ago. She reports she is able to tolerate oral intake, without nausea, vomiting, and bloating, but does develop significant abdominal pain. She denies fevers, chills, jaundice, scleral icterus, melena, and hematochezia. Upon arrival, patient was hemodynamically stable and afebrile Workup was notable for normal LFTs (T bili 0.6, D bili 0.2, AST 11, ALT 3), with mildly elevated lipase (159). CT Abdomen and Pelvis shows There is a thin-walled complex multilobulated collection centered lesser sac, measuring roughly 5.9 x 4.9 cm, abutting the stomach anteriorly in the colon laterally. There is a enhancing collection of the inferior pancreatic head/uncinate process measuring roughly 4.5 x 3.2 cm, abutting the transverse colon anteriorly and duodenum. GI HISTORY SUMMARY TABLE Last EGD Last colonoscopy Primary GI physician PAST MEDICAL, SURGICAL, FAMILY, and SOCIAL HISTORY Past Medical History: Medical History[1] Past Surgical History: Surgical History[2] Family History: Family History[3] Social History: Social History[4] Allergies: Allergies[5] MEDICATIONS Home Medications: Prior to Admission medications Medication Sig Start Date End Date Taking? Authorizing Provider albuterol 90 mcg/actuation inhaler Inhale 2 puffs if needed in the morning, at noon, and at bedtime for wheezing or shortness of breath. Historical Provider, amoxicillin-pot clavulanate (Augmentin) 875-125 mg tablet Take 1 tablet by mouth two times daily. Historical Provider, gabapentin (Neurontin) 300 mg capsule Take 600 mg by mouth two times daily. Historical Provider, levothyroxine (Synthroid, Levoxyl) 25 mcg tablet Take 25 mcg by mouth before breakfast. Historical Provider, metoprolol tartrate (Lopressor) 25 mg tablet Take 1 tablet (25 mg) by mouth two times daily for 195 doses. 04/13/25 07/20/25 Amarjit Iqbal MD nicotine (Nicoderm CQ) 14 mg/[address] 1 patch on the skin 1 (one) time each day at the same time for 5 days. 04/13/25 04/18/25 Amarjit Iqbal MD ondansetron (Zofran) 4 mg tablet Take 1 tablet by mouth every 6 (six) hours during the day. 09/08/24 Historical ProviderMD oxyCODONE (Roxicodone) 5 mg immediate release tablet Take 5 mg by mouth every 6 (six) hours if needed. 04/15/25 Historical ProviderMD pantoprazole (ProtoNix) 40 mg EC tablet Take 1 tablet (40 mg) by mouth two times daily. Do not crush, chew, or split. 04/13/25 05/13/25 Amarjit Iqbal MD Symbicort 80-4.5 mcg/actuation inhaler inhale 2 puffs into the lungs twice daily 03/29/25 Historical Provider, Current Medications: enoxaparin, 40 mg, subcutaneous, Daily gabapentin, 600 mg, oral, BID levothyroxine, 25 mcg, oral, Daily before breakfast metoprolol tartrate, 25 mg, oral, BID mometasone-formoterol, 2 puff, inhalation, BID nicotine, 1 patch, transdermal, q24h pantoprazole, 40 mg, oral, BID prochlorperazine, 5 mg, intravenous, q6h sucralfate, 1 g, oral, q6h MISTY PRNs: acetaminophen, 650 mg, q6h PRN albuterol, 2 puff, q4h PRN bisacodyl, 10 mg, Daily PRN hydrOXYzine pamoate, 25 mg, 4x daily PRN melatonin, 5 mg, Nightly PRN morphine, 2 mg, q6h PRN ondansetron ODT, 4 mg, q8h PRN Or ondansetron, 4 mg, q6h PRN oxyCODONE, 5 mg, q6h PRN polyethylene glycol, 17 g, Daily PRN REVIEW OF SYSTEMS See HPI, otherwise ROS negati (more content not included)... Normal [facility] MAGNESIUMon 05-02-2025 Magnesium [Mass/Vol] 2.4 mg/dL Normal 1.9-2.7 [facility] Comment on above: Performed By: #### L [id number] ####[facility] ([facility])[address] [place] [address] APTTon 05-01-2025 ACTIVATED PARTIAL THROMBOPLASTIN TIME IN PPP BY COAGULATION ASSAY 47.5 Seconds High 25.0-35.0 [facility] Comment on above: Result Comment: Clin ical significance of the APTT is questionable in the presence of heparin. Performed By: #### L [id number] #### [facility] ([facility]) [address] [place] [address] BASIC METABOLIC PANELon 04-13 Anion gap [Moles/Vol] 10 mmol/L Normal 7-20 [facility] Comment on above: Performed By: #### L [id number] #### [facility] ([facility]) [address] [place] [address] Calcium [Mass/Vol] 8.3 mg/dL Low 8.6-10.3 [facility] Comment on above: Performed By: #### L [id number] #### [facility] ([facility]) [address] [place] [address] Chloride [Moles/Vol] 97 mmol/L Low 98-107 [facility] Comment on above: Performed By: #### L [id number] #### [facility] ([facility]) [address] [place] [address] CO2 [Moles/Vol] 31 mmol/L Normal 21-31 [facility] Comment on above: Performed By: #### L [id number] #### [facility] ([facility]) [address] [place] [address] Creatinine [Mass/Vol] 0.53 mg/dL Low 0.60-1.20 [facility] Comment on above: Performed By: #### L [id number] #### [facility] ([facility]) [address] [place] [address] GLOMERULAR FILTRATION RATE ML/MIN/1.73 SQ M.PREDICTED 111.9 mL/min/1.73m*2 Normal >60.0 [facility] Comment on above: Result Comment: [facility]???s estimated glomerular filtration rate (eGFR) will [...] group of individuals. Performed By: #### L [id number] #### [facility] ([facility]) [address] [place] [address] Glucose [Mass/Vol] 87 mg/dL Normal 70-100 [facility] Comment on above: Performed By: #### L [id number] #### [facility] ([facility]) [address] [place] [address] Potassium [Moles/Vol] 3.1 mmol/L Low 3.5-5.1 [facility] Comment on above: Performed By: #### L [id number] #### [facility] ([facility]) [address] [place] [address] Sodium [Moles/Vol] 135 mmol/L Low 136-145 [facility] Comment on above: Performed By: #### L [id number] #### [facility] ([facility]) [address] [place] [address] Urea nitrogen [Mass/Vol] 10 mg/dL Normal 7-25 [facility] Comment on above: Performed By: #### L [id number] #### [facility] ([facility]) [address] [place] [address] UREA NITROGEN/CREATININE (MASS RATIO) IN SER/PLAS 18.9 Normal [facility] Comment on above: Performed By: #### L [id number] #### [facility] ([facility]) [address] [place] [address] CBC WITH AUTO DIFFERENTIALon 05-01-2025 Basophils (Bld) [#/Vol] 0.03 10*3/uL Normal 0.00-0.20 [facility] Comment on above: Performed By: #### L [id number] ####[facility] ([facility])[address] [place] [address] Basophils/100 WBC (Bld) 0.2 % Normal 0.0-1.0 [facility] Comment on above: Performed By: #### L [id number] ####[facility] ([facility])[address] [place] [address] Eosinophils (Bld) [#/Vol] 0.03 10*3/uL Normal 0.00-0.50 [facility] Comment on above: Performed By: #### L [id number] ####[facility] ([facility])[address] [place] [address] Eosinophils/100 WBC (Bld) 0.2 % Normal 0.0-6.0 [facility] Comment on above: Performed By: #### L [id number] ####[facility] ([facility])[address] [place] [address] Erythrocyte distribution width (RBC) [Ratio] 13.1 % Normal 11.5-15.0 [facility] Comment on above: Performed By: #### L [id number] ####[facility] ([facility])[address] [place] [address] ERYTHROCYTE MEAN CORPUSCULAR HEMOGLOBIN CONCENTRATION (G/DL) BY AUTOMATED 33.1 g/dL Normal 32.0-35.0 [facility] Comment on above: Performed By: #### L [id number] ####[facility] ([facility])[address] [place] [address] Hematocrit (Bld) [Volume fraction] 30.8 % Low 36.0-45.0 [facility] Comment on above: Performed By: #### L [id number] ####[facility] ([facility])[address] [place] [address] Hemoglobin (Bld) [Mass/Vol] 10.2 g/dL Low 12.0-15.0 [facility] Comment on above: Performed By: #### L [id number] ####[facility] ([facility])[address] [place] [address] Immature granulocytes (Bld) [#/Vol] 0.03 10*3/uL Normal 0.00-0.20 [facility] Comment on above: Performed By: #### L [id number] ####[facility] ([facility])[address] [place] [address] Immature granulocytes/100 WBC (Bld) 0.2 % Normal 0.0-1.0 [facility] Comment on above: Performed By: #### L [id number] ####[facility] ([facility])[address] [place] [id number] Lymphocytes (Bld) [#/Vol] 1.64 10*3/uL Normal 1.20-4.00 [facility] Comment on above: Performed By: #### L [id number] ####[facility] ([facility])[address] [place] [address] Lymphocytes/100 WBC (Bld) 13.5 % Low 20.0-45.0 [facility] Comment on above: Performed By: #### L [id number] ####[facility] ([facility])[address] [place] [address] MCH (RBC) [Entitic mass] 31.3 pg Normal 27.0-33.0 [facility] Comment on above: Performed By: #### L [id number] ####[facility] ([facility])[address] [place] [address] MCV (RBC) [Entitic vol] 94.5 fL Normal 82.0-98.0 [facility] Comment on above: Performed By: #### L [id number] ####[facility] ([facility])[address] [place] [address] Monocytes (Bld) [#/Vol] 0.75 10*3/uL Normal 0.10-1.00 [facility] Comment on above: Performed By: #### L [id number] ####[facility] ([facility])[address] [place] [address] Monocytes/100 WBC (Bld) 6.2 % Normal 5.0-12.0 [facility] Comment on above: Performed By: #### L [id number] ####[facility] ([facility])[address] [place] [address] Neutrophils (Bld) [#/Vol] 9.68 10*3/uL High 1.60-7.60 [facility] Comment on above: Performed By: #### L [id number] ####[facility] ([facility])[address] [place] [address] Neutrophils/100 WBC (Bld) 79.7 % High 40.0-72.0 [facility] Comment on above: Performed By: #### L [id number] ####[facility] ([facility])[address] [place] [address] NRBC (PER 100 WBCS) BY AUTOMATED COUNT 0.0 % Normal 0 [facility] Comment on above: Performed By: #### L [id number] ####[facility] ([facility])[address] [place] [address] PLATELETS (10*3/UL) IN BLOOD AUTOMATED COUNT 207 10*3/uL Normal 150-400 [facility] Comment on above: Performed By: #### L [id number] ####[facility] ([facility])[address] [place] [address] RBC (Bld) [#/Vol] 3.26 10*6/uL Low 3.80-5.00 [facility] Comment on above: Performed By: #### L [id number] ####[facility] ([facility])[address] [place] [address] WBC (Bld) [#/Vol] 12.16 10*3/uL High 4.00-10.60 [facility] Comment on above: Performed By: #### L [id number] ####[facility] ([facility])[address] [place] [address] CT ABDOMEN PELVIS W IV CONTR Marilyn 05-01-2025 CT ABDOMEN PELVIS W IV CONTRAST CT abdomen and pelvis with IV contrast CLINICAL INFORMATION: Abdominal pain. Pt reports having surgery April 08 (ERCP) which caused her to develop pancreatitis and had a couple flare ups. COMPARISON: None TECHNIQUE: CT of the abdomen and pelvis with intravenous contrast. FINDINGS: LOWER CHEST: No acute findings. LIVER AND BILIARY: Mild pneumobilia. Stents within the common duct/common hepatic duct and main pancreatic duct. Common hepatic duct is dilated. Gallbladder is surgically absent PANCREAS: There is a thin-walled complex multilobulated collection centered lesser sac, measuring roughly 5.9 x 4.9 cm, abutting the stomach anteriorly in the colon laterally. There is a enhancing collection of the inferior pancreatic head/uncinate process measuring roughly 4.5 x 3.2 cm, abutting the transverse colon anteriorly and duodenum. Stent within a nondilated main pancreatic duct.. SPLEEN: No acute abnormality. ADRENALS: Within normal limits. KIDNEYS, URETERS, AND BLADDER: Symmetric renal enhancement without suspicious focal lesion. No hydronephrosis. Urinary bladder appears grossly unremarkable. GI TRACT AND PERITONEUM: Thickened stomach and scattered small/large bowel loops. No evidence of high-grade obstruction. Mild free fluid along the right paracolic gutter and in the pelvis. No free air. Appendix is not well seen. VASCULATURE: Aortoiliac atherosclerosis without aneurysm. Portal, splenic, and superior mesenteric veins appear patent. LYMPH NODES: Grossly within normal limits. REPRODUCTIVE ORGANS: Uterus is surgically absent. No suspicious adnexal mass. MUSCULOSKELETAL: No acute osseous abnormality. IMPRESSION: * Multiple peripancreatic fluid collections, presumably pseudocysts (with or without superinfection given robust peripheral enhancement ). * Presumed multifocal reactive edema of the stomach and small/large bowel. Small volume ascites. All CT scans at this facility use dose modulation, iterative reconstruction, and/or weight based dosing when appropriate to reduce radiation dose to as low as reasonably achievable. Approved by:Valeriano Ybarra05/01/2025 6:45 PM. I, WOO HOWARD,have reviewed the image(s) and agree with the findings in this report. Electronically signed: WOO HOWARD. [facility] EDPROVon 05-01-2025 EDPROV History of Present Illness Chief Complaint Patient presents with Post-op Problem Pt reports recent ERCP. Following ERCP she got pancreatitis and was admitted. Pt reports increase of pain, nausea, and diarrhea since discharge along with severe abd pain. Initial evaluation completed by Dr. Pandya at 1640. Kati Thorne is a 49 y/o female presenting to the ED with c/o post-op problem. Pt reports having surgery April 08 (ARCP) which caused her to develop pancreatitis and had a couple flare ups. Pt [place]. On the , pt had to go to ER and they found her small bowel decompressed, nodes, free air in her abdomen, liver function test elevated, and white blood count elevated. History provided by: Patient [place] Coma Scale Score: 15 History Medical History[1] Surgical History[2] Family History[3] Social History[4] Review of Systems Review of Systems Gastrointestinal: Positive for abdominal pain. Physical Exam ED Triage Vitals [05/01/25 1547] Temp Heart Rate Resp BP 37.2 ???C (99 ???F) 87 16 (!) 156/95 SpO2 Temp Source Heart Rate Source Patient Position 97 % Oral -- -- BP Location FiO2 (%) -- -- Physical Exam Vitals and nursing note reviewed. Constitutional: General: She is not in acute distress. Appearance: She is well-developed. HENT: Head: Normocephalic and atraumatic. Eyes: Conjunctiva/sclera: Conjunctivae normal. Cardiovascular: Rate and Rhythm: Normal rate and regular rhythm. Heart sounds: No murmur heard. Pulmonary: Effort: Pulmonary effort is normal. No respiratory distress. Breath sounds: Normal breath sounds. Abdominal: Palpations: Abdomen is soft. Tenderness: There is abdominal tenderness. Musculoskeletal: General: No swelling. Cervical back: Neck supple. Skin: General: Skin is warm and dry. Capillary Refill: Capillary refill takes less than 2 seconds. Neurological: Mental Status: She is alert and oriented to person, place, and time. Psychiatric: Mood and Affect: Mood normal. Procedures ED Course & MDM Medical Decision Making Carmen Espana Said loretoe, documented on behalf of Dr. Pandya. Chief complaint post-op problem Differential Diagnosis includes but is not limited to pancreatitis, free air in abdomen, dehydration. Plan of Care: Orders Placed This Encounter Procedures CT abdomen pelvis w IV contrast CBC and differential Basic metabolic panel Lipase Protime-INR APTT Hepatic function panel Magnesium Urinalysis with reflex culture Lactic acid with 4 hour reflex CBC auto differential Medications sodium chloride 0.9 % bolus 1,000 mL (has no administration in time range) morphine injection 4 mg (has no administration in time range) ondansetron HCl (PF) (Zofran) injection 4 mg (has no administration in time range) Imaging reviewed by Dr. Pandya. Radiology reports noted and agreed with as listed below: CT abdomen pelvis w IV contrast Final Result * Multiple peripancreatic fluid collections, presumably pseudocysts (with or without superinfection given robust peripheral enhancement ). * Presumed multifocal reactive edema of the stomach and small/large bowel. Small volume ascites. All CT scans at this facility use dose modulation, iterative reconstruction, and/or weight based dosing when appropriate to reduce radiation dose to as low as reasonably achievable. Approved by:Valeriano Ybarra05/01/2025 6:45 PM. I, WOO HOWARD,have reviewed the image(s) and agree with the findings in this report. Electronically signed: WOO HOWARD. --- RESULTS --- Labs: Labs Reviewed BASIC METABOLIC PANEL - Abnormal Result Value Sodium 135 (*) Potassium 3.1 (*) Chloride 97 (*) CO2 31 BUN 10 Creatinine 0.53 (*) Glucose 87 Calcium 8.3 (*) Anion Gap 10 eGFR 111.9 BUN/Creatinine Ratio 18.9 LIPASE - Abnormal Lipase 159 (*) APTT - Abnormal aPTT 47.5 (*) HEPATIC FUNCTION PANEL - Abnormal Total Bilirubin 0.6 Bilirubin, Direct 0.2 Alkaline Phosphatase 95 AST 11 (*) ALT (SGPT) <3 (*) Total Protein 5.9 (*) Albumin 3.1 (*) MAGNESIUM - Abnormal Magnesium 1.7 (*) URINALYSIS WITH REFLEX CULTURE - Abnormal Color, Urine Light-Yellow Clarity, Urine Clear pH, Urine 7.0 Leukocytes, Urine Negative Nitrite, Urine Negative Protein, Urine Negative Glucose, Urine Normal Bilirubin, Urine Negative Specific [place], Urine 1.006 (*) Ketones, Urine Negative Blood, Urine Negative Urobilinogen, Urine 2.0 (*) Narrative: Microscopics not performed on urines with negative chemical reactions unless requested on original order. CBC WITH AUTO DIFFERENTIAL - Abnormal Auto WBC 12.16 (*) RBC 3.26 (*) Hemoglobin 10.2 (*) Hematocrit 30.8 (*) MCV 94.5 MCH 31.3 MCHC 33.1 RDW 13.1 Neutrophils % 79.7 (*) Lymphocytes % 13.5 (*) Monocytes % 6.2 Eosin (more content not included)... Normal [facility] HEPATIC FUNCTION PANELon ALANINE AMINOTRANSFERASE (SGPT) (U/L) IN SER/PLAS <3 Low 7-52 [facility] Comment on above: Performed By: #### L [id number] #### [facility] ([facility]) [address] [place] [address] Albumin [Mass/Vol] 3.1 g/dL Low 3.5-5.7 [facility] Comment on above: Performed By: #### L [id number] #### [facility] ([facility]) [address] [place] [address] ALP [Catalytic activity/Vol] 95 U/L Normal 34-104 [facility] Comment on above: Performed By: #### L [id number] #### [facility] ([facility]) [address] [place] [address] AST [Catalytic activity/Vol] 11 U/L Low 13-39 [facility] Comment on above: Performed By: #### L [id number] #### [facility] ([facility]) [address] [place] [address] Bilirubin [Mass/Vol] 0.6 mg/dL Normal 0.3-1.0 [facility] Comment on above: Performed By: #### L [id number] #### [facility] ([facility]) [address] [place] [address] Magnesium [Mass/Vol] 0.2 mg/dL Normal 0-0.2 [facility] Comment on above: Performed By: #### L [id number] #### [facility] ([facility]) [address] [place] [address] Protein [Mass/Vol] 5.9 g/dL Low 6.0-8.3 [facility] Comment on above: Performed By: #### L [id number] #### [facility] ([facility]) [address] [place] [address] LACTIC ACID WITH 4 HOUR REFL EXon 05-01-2025 LACTATE (MMOL/L) IN SER/PLAS 1.2 mmol/L Normal 0.5-2.2 [facility] Comment on above: Performed By: #### L [id number] ####[facility] ([facility]ER)[address] [place] [address] LIPASEon 05-01-2025 LIPASE (U/L) IN SER/PLAS 159 U/L High 11-82 [facility] Comment on above: Performed By: #### L [id number] ####[facility] ([facility])[address] [place] [address] MAGNESIUMon 05-01-2025 Magnesium [Mass/Vol] 1.7 mg/dL Low 1.9-2.7 [facility] Comment on above: Performed By: #### L [id number] #### [facility] ([facility]) [address] [place] [address] PROTIME-INRon 05-01-2025 INR IN PPP BY COAGULATION ASSAY 1.08 Normal 0.90-1.10 [facility] Comment on above: Result Comment: ACCC [...] RANGE. CHEST 1995;[id number]. Performed By: #### L [id number] #### [facility] ([facility]) [address] [place] [address] PROTHROMBIN TIME (PT) IN PPP BY COAGULATION ASSAY 14.0 Seconds Normal 12.3-14.8 [facility] Comment on above: Performed By: #### L [id number] #### [facility] ([facility]) [address] [place] [address] URINALYSIS WITH REFLEX CULTU REon 05-01-2025 BILIRUBIN, TOTAL PRESENCE IN URINE Negative Normal Negative [facility] Comment on above: Order Comment: Micro scopics not performed on urines with negative chemical reactions unless requested on original order. Performed By: #### L [id number] #### [facility] ([facility]) [address] [place] [address] Clarity (U) Clear Normal Clear [facility] Comment on above: Order Comment: Micro scopics not performed on urines with negative chemical reactions unless requested on original order. Performed By: #### L [id number] #### [facility] ([facility]) [address] [place] [address] Color (U) Light-Yellow Normal Colorless, Yellow, Light-Yellow [facility] Comment on above: Order Comment: Micro scopics not performed on urines with negative chemical reactions unless requested on original order. Performed By: #### L [id number] #### [facility] ([facility]) [address] [place] [address] GLUCOSE (MG/DL) IN URINE Normal Normal Normal [facility] Comment on above: Order Comment: Micro scopics not performed on urines with negative chemical reactions unless requested on original order. Performed By: #### L [id number] #### [facility] ([facility]) [address] [place] [address] HEMOGLOBIN PRESENCE IN URINE Negative Normal Negative [facility] Comment on above: Order Comment: Micro scopics not performed on urines with negative chemical reactions unless requested on original order. Performed By: #### L [id number] #### [facility] ([facility]) [address] [place] [address] Ketones Ql (U) Negative Normal Negative [facility] Comment on above: Order Comment: Micro scopics not performed on urines with negative chemical reactions unless requested on original order. Performed By: #### L [id number] #### [facility] ([facility]) [address] [place] [address] LEUKOCYTE ESTERASE PRESENCE IN URINE BY TEST STRIP Negative Normal Negative [facility] Comment on above: Order Comment: Micro scopics not performed on urines with negative chemical reactions unless requested on original order. Performed By: #### L [id number] #### [facility] ([facility]) [address] [place] [address] NITRITE PRESENCE IN URINE Negative Normal Negative [facility] Comment on above: Order Comment: Micro scopics not performed on urines with negative chemical reactions unless requested on original order. Performed By: #### L [id number] #### [facility] ([facility]) [address] [place] [address] pH (U) 7.0 [pH] Normal 5.0-8.0 [facility] Comment on above: Order Comment: Micro scopics not performed on urines with negative chemical reactions unless requested on original order. Performed By: #### L [id number] #### [facility] ([facility]) [address] [place] [address] Protein (U) [Mass/Vol] Negative Normal Negative [facility] Comment on above: Order Comment: Micro scopics not performed on urines with negative chemical reactions unless requested on original order. Performed By: #### L [id number] #### [facility] ([facility]) [address] [place] [address] Specific gravity (U) [Rel density] 1.006 Low 1.010-1.030 [facility] Comment on above: Order Comment: Micro scopics not performed on urines with negative chemical reactions unless requested on original order. Performed By: #### L [id number] #### [facility] ([facility]) [address] [place] [address] UROBILINOGEN (MG/DL) IN URINE 2.0 mg/dL Abnormal Normal [facility] Comment on above: Order Comment: Micro scopics not performed on urines with negative chemical reactions unless requested on original order. Performed By: #### L [id number] #### [facility] ([facility]) [address] [place] [address] Telephoneon 04-16-2025 Telephone [phone] Kati Thorne 1975 F Date Provider Department Center 04/16/2025 JUANA JONES [facility] No family history on file Normal [facility] 36on 04-14-2025 36 Post Discharge Call Good afternoon, I am Autumn Santacruz, RN a lead nurse from [facility]. I am calling you to follow up [...] mention the great care given by Ritchie Brooks and Sara. 2. Did you understand your [...] No Patient Name Kati Thorne Date 04/14/25 Normal [facility] Telephoneon 04-14-2025 Telephone [phone] Kati Thorne 1975 F Date Provider Department Center 04/14/2025 AUTUMN MOSLEY [facility] No family history on file Reason for Visit and Comments: post discharge call back [Other] Normal [facility] 04-13-2025 30 The patient is Moderately Stable [...] and maintained or improved Outcome: Progressing Normal [facility] 30 The patient is Moderately Stable [...] interventions unsuccessful or patient reports new pain Normal [facility] 04-12-2025 30 The patient is Moderately Stable - Low risk of patient condition declining or worsening The patient's goals for the shift include Comfort and rest The clinical goals for the shift include VSS and safety Normal [facility] 30 The patient is Moderately Stable - Low risk of patient condition declining or worsening The patient's goals for the shift include comfort The clinical goals for the shift include VSS, comfort, rest Problem: Pain - Adult Goal: Verbalizes/displays adequate comfort level or baseline comfort level Flowsheets (Taken 04/12/2025 0235) Verbalizes/displays adequate comfort level or baseline comfort [...] and behaviors that affect risk of falls [place] fall precautions as indicated by assessment Educate [...] and prevent overall improvement and discharge Normal [facility] BASIC METABOLIC PANELon 06-0 Anion gap [Moles/Vol] 10 mmol/L Normal 7-20 [facility] Comment on above: Performed By: #### L [id number] ####[facility] ([facility])[address] [place] [address] Calcium [Mass/Vol] 7.0 mg/dL Low 8.6-10.3 [facility] Comment on above: Performed By: #### L [id number] ####[facility] ([facility])[address] [place] [address] Chloride [Moles/Vol] 101 mmol/L Normal 98-107 [facility] Comment on above: Performed By: #### L [id number] ####[facility] ([facility])[address] [place] [address] CO2 [Moles/Vol] 24 mmol/L Normal 21-31 [facility] Comment on above: Performed By: #### L [id number] ####[facility] ([facility])[address] [place] [address] Creatinine [Mass/Vol] 0.25 mg/dL Low 0.60-1.20 [facility] Comment on above: Performed By: #### L [id number] ####[facility] ([facility])[address] [place] [address] GLOMERULAR FILTRATION RATE ML/MIN/1.73 SQ M.PREDICTED 134.1 mL/min/1.73m*2 Normal >60.0 [facility] Comment on above: Result Comment: The [facility]???s estimated glomerular filtration rate (eGFR) will [...] of individuals. Performed By: #### L [id number] ####[facility] ([facility])[address] [place] [address] Glucose [Mass/Vol] 94 mg/dL Normal 70-100 [facility] Comment on above: Performed By: #### L [id number] ####[facility] ([facility])[address] [place] [address] Potassium [Moles/Vol] 3.0 mmol/L Low 3.5-5.1 [facility] Comment on above: Performed By: #### L [id number] ####[facility] ([facility]ER)[address] [place] [address] Sodium [Moles/Vol] 132 mmol/L Low 136-145 [facility] Comment on above: Performed By: #### L [id number] ####[facility] ([facility])[address] [place] [address] Urea nitrogen [Mass/Vol] 7 mg/dL Normal 7-25 [facility] Comment on above: Performed By: #### L [id number] ####[facility] ([facility])[address] [place] [address] UREA NITROGEN/CREATININE (MASS RATIO) IN SER/PLAS 28.0 Normal [facility] Comment on above: Performed By: #### L [id number] ####[facility] ([facility])[address] [address] CBCon 04-12-2025 Erythrocyte distribution width (RBC) [Ratio] 12.4 % Normal 11.5-15.0 [facility] Comment on above: Performed By: #### L [id number] ####[facility] ([facility])[address] [place] [address] ERYTHROCYTE MEAN CORPUSCULAR HEMOGLOBIN CONCENTRATION (G/DL) BY AUTOMATED 34.3 g/dL Normal 32.0-35.0 [facility] Comment on above: Performed By: #### L [id number] ####[facility] ([facility])[address] [place] [address] Hematocrit (Bld) [Volume fraction] 27.1 % Low 36.0-45.0 [facility] Comment on above: Performed By: #### L [id number] ####[facility] ([facility]ER)[address] [place] [address] Hemoglobin (Bld) [Mass/Vol] 9.3 g/dL Low 12.0-15.0 [facility] Comment on above: Performed By: #### L [id number] ####[facility] ([facility])[address] [place] [address] IMMATURE PLATELET FRACTION % 7.0 % High 0.8-6.3 [facility] Comment on above: Performed By: #### L [id number] ####[facility] ([facility])[address] [place] [address] MCH (RBC) [Entitic mass] 32.2 pg Normal 27.0-33.0 [facility] Comment on above: Performed By: #### L [id number] ####[facility] ([facility])[address] [place] [address] MCV (RBC) [Entitic vol] 93.8 fL Normal 82.0-98.0 [facility] Comment on above: Performed By: #### L [id number] ####[facility] ([facility])[address] [place] [address] PLATELETS (10*3/UL) IN BLOOD AUTOMATED COUNT 75 10*3/uL Low 150-400 [facility] Comment on above: Performed By: #### L [id number] ####[facility] ([facility])[address] [place] [address] RBC (Bld) [#/Vol] 2.89 10*6/uL Low 3.80-5.00 [facility] Comment on above: Performed By: #### L [id number] ####[facility] ([facility])[address] [place] [address] WBC (Bld) [#/Vol] 5.24 10*3/uL Normal 4.00-10.60 [facility] Comment on above: Performed By: #### L [id number] ####[facility] ([facility])[address] [place] [address] MAGNESIUMon 04-12-2025 Magnesium [Mass/Vol] 1.5 mg/dL Low 1.9-2.7 [facility] Comment on above: Performed By: #### L [id number] ####[facility] ([facility])[address] [place] [address] 30on 04-11-2025 30 The patient is Moderately Stable - Low risk of patient condition declining or worsening The patient's goals for the shift include Comfort and rest The clinical goals for the shift include VSS and safety Normal [facility] 30 The patient is Moderately Stable [...] and behaviors that affect risk of falls [place] fall precautions as indicated by assessment Educate [...] and prevent overall improvement and discharge Normal [facility] AMYLASEon 04-11-2024 Amylase [Catalytic activity/Vol] 100 U/L Normal 29-103 [facility] Comment on above: Performed By: #### L [id number] ####[facility] ([facility])[address] [place] [address] BASIC METABOLIC PANELon 05- Anion gap [Moles/Vol] 11 mmol/L Normal 7-20 [facility] Comment on above: Performed By: #### L [id number] ####[facility] ([facility])[address] [place] [address] Calcium [Mass/Vol] 8.0 mg/dL Low 8.6-10.3 [facility] Comment on above: Performed By: #### L [id number] ####[facility] ([facility])[address] [place] [address] Chloride [Moles/Vol] 103 mmol/L Normal 98-107 [facility] Comment on above: Performed By: #### L [id number] ####[facility] ([facility])[address] [place] [address] CO2 [Moles/Vol] 23 mmol/L Normal -31 [facility] Comment on above: Performed By: #### L [id number] ####[facility] ([facility])[address] [place] [address] Creatinine [Mass/Vol] 0.26 mg/dL Low 0.60-1.20 [facility] Comment on above: Performed By: #### L [id number] ####[facility] ([facility])[address] [place] [address] GLOMERULAR FILTRATION RATE ML/MIN/1.73 SQ M.PREDICTED 132.9 mL/min/1.73m*2 Normal >60.0 [facility] Comment on above: Result Comment: The [facility]???s estimated glomerular filtration rate (eGFR) will [...] of individuals. Performed By: #### L [id number] ####[facility] ([facility])[address] [place] [address] Glucose [Mass/Vol] 80 mg/dL Normal 70-100 [facility] Comment on above: Performed By: #### L [id number] ####[facility] ([facility])[address] [place] [address] Potassium [Moles/Vol] 3.3 mmol/L Low 3.5-5.1 [facility] Comment on above: Performed By: #### L [id number] ####[facility] ([facility])[address] [place] [address] Sodium [Moles/Vol] 134 mmol/L Low 136-145 [facility] Comment on above: Performed By: #### L [id number] ####[facility] ([facility])[address] [place] [address] Urea nitrogen [Mass/Vol] 10 mg/dL Normal 7-25 [facility] Comment on above: Performed By: #### L [id number] ####[facility] ([facility])[address] [place] [address] UREA NITROGEN/CREATININE (MASS RATIO) IN SER/PLAS 38.5 Normal [facility] Comment on above: Performed By: #### L [id number] ####[facility] ([facility])[address] [place] [address] CBC WITH AUTO DIFFERENTIALon 04-11-2025 Erythrocyte distribution width (RBC) [Ratio] 12.6 % Normal 11.5-15.0 [facility] Comment on above: Performed By: #### L [id number] ####[facility] ([facility])[address] [place] [address] ERYTHROCYTE MEAN CORPUSCULAR HEMOGLOBIN CONCENTRATION (G/DL) BY AUTOMATED 34.3 g/dL Normal 32.0-35.0 [facility] Comment on above: Performed By: #### L [id number] ####[facility] ([facility])[address] [place] [address] Hematocrit (Bld) [Volume fraction] 29.7 % Low 36.0-45.0 [facility] Comment on above: Performed By: #### L [id number] ####[facility] ([facility])[address] [place] [address] Hemoglobin (Bld) [Mass/Vol] 10.2 g/dL Low 12.0-15.0 [facility] Comment on above: Performed By: #### L [id number] ####[facility] ([facility])[address] [place] [address] IMMATURE PLATELET FRACTION % 7.6 % High 0.8-6.3 [facility] Comment on above: Performed By: #### L [id number] ####[facility] ([facility])[address] [place] [address] MCH (RBC) [Entitic mass] 32.6 pg Normal 27.0-33.0 [facility] Comment on above: Performed By: #### L [id number] ####[facility] ([facility])[address] [place] [address] MCV (RBC) [Entitic vol] 94.9 fL Normal 82.0-98.0 [facility] Comment on above: Performed By: #### L [id number] ####[facility] ([facility])[address] [place] [address] NRBC (PER 100 WBCS) BY AUTOMATED COUNT 0.0 % Normal 0 [facility] Comment on above: Performed By: #### L [id number] ####[facility] ([facility])[address] [place] [address] PLATELETS (10*3/UL) IN BLOOD AUTOMATED COUNT 82 10*3/uL Low 150-400 [facility] Comment on above: Performed By: #### L [id number] ####[facility] ([facility])[address] [place] [address] RBC (Bld) [#/Vol] 3.13 10*6/uL Low 3.80-5.00 [facility] Comment on above: Performed By: #### L [id number] ####[facility] ([facility])[address] [place] [address] WBC (Bld) [#/Vol] 7.80 10*3/uL Normal 4.00-10.60 [facility] Comment on above: Performed By: #### L [id number] ####[facility] ([facility])[address] [place] [address] HEPATIC FUNCTION PANELon Albumin [Mass/Vol] 3.7 g/dL Normal 3.5-5.7 [facility] Comment on above: Performed By: #### L [id number] ####[facility] ([facility])[address] [place] [address] ALP [Catalytic activity/Vol] 87 U/L Normal 34-104 [facility] Comment on above: Performed By: #### L [id number] ####[facility] ([facility])[address] [place] [address] ALT [Catalytic activity/Vol] 20 U/L Normal 7-52 [facility] Comment on above: Performed By: #### L [id number] ####[facility] ([facility])[address] [place] [address] AST [Catalytic activity/Vol] 28 U/L Normal 13-39 [facility] Comment on above: Performed By: #### L [id number] ####[facility] ([facility])[address] [place] [address] Bilirubin [Mass/Vol] 2.2 mg/dL High 0.3-1.0 [facility] Comment on above: Performed By: #### L [id number] ####[facility] ([facility])[address] [place] [address] Magnesium [Mass/Vol] 0.6 mg/dL High 0-0.2 [facility] Comment on above: Performed By: #### L [id number] ####[facility] ([facility])[address] [place] [address] Protein [Mass/Vol] 5.4 g/dL Low 6.0-8.3 [facility] Comment on above: Performed By: #### L [id number] ####[facility] ([facility])[address] [place] [address] LIPASEon 04-11-2025 LIPASE (U/L) IN SER/PLAS 59 U/L Normal 11-82 [facility] Comment on above: Performed By: #### L [id number] ####[facility] ([facility])[address] [place] [address] MAGNESIUMon 04-11-2025 Magnesium [Mass/Vol] 1.9 mg/dL Normal 1.9-2.7 [facility] Comment on above: Performed By: #### L [id number] #### [facility] ([facility]) [address] [place] [address] MANUAL DIFFERENTIALon 2024 BASOPHILS (10*3/UL) IN BLOOD BY CALCULATION 0.01 10*3/uL Normal 0.00-0.20 [facility] Comment on above: Performed By: #### L [id number] #### [facility] ([facility]) [address] [place] [address] BASOPHILS/100 LEUKOCYTES IN BLOOD BY AUTOMATED COUNT 0.1 % Normal 0.0-1.0 [facility] Comment on above: Performed By: #### L [id number] #### [facility] ([facility]) [address] [place] [address] EOSINOPHILS (10*3/UL) IN BLOOD BY CALCULATION 0.00 10*3/uL Normal 0.00-0.50 [facility] Comment on above: Performed By: #### L [id number] #### [facility] ([facility]) [address] [place] [address] EOSINOPHILS/100 LEUKOCYTES IN BLOOD BY AUTOMATED COUNT 0.0 % Normal 0.0-6.0 [facility] Comment on above: Performed By: #### L [id number] #### [facility] ([facility]) [address] [place] [address] IMMATURE GRANULOCYTES (10*3/UL) IN BLOOD BY CALCULATION 0.02 10*3/uL Normal 0.00-0.20 [facility] Comment on above: Performed By: #### L [id number] #### [facility] ([facility]) [address] [place] [address] IMMATURE GRANULOCYTES/100 LEUKOCYTES IN BLOOD BY AUTOMATED COUNT 0.3 % Normal 0.0-1.0 [facility] Comment on above: Performed By: #### L [id number] #### [facility] ([facility]) [address] [place] [address] LYMPHOCYTES (10*3/UL) IN BLOOD BY CALCULATION 0.26 10*3/uL Low 1.20-4.00 [facility] Comment on above: Performed By: #### L [id number] #### [facility] ([facility]) [address] [place] [address] LYMPHOCYTES/100 LEUKOCYTES IN BLOOD BY AUTOMATED COUNT 3.3 % Low 20.0-45.0 [facility] Comment on above: Performed By: #### L [id number] #### [facility] ([facility]) [address] [place] [address] MONOCYTES (10*3/UL) IN BLOOD BY CALCUATION 0.39 10*3/uL Normal 0.10-1.00 [facility] Comment on above: Performed By: #### L [id number] #### [facility] ([facility]) [address] [place] [address] MONOCYTES/100 LEUKOCYTES IN BLOOD BY AUTOMATED COUNT 5.0 % Normal 5.0-12.0 [facility] Comment on above: Performed By: #### L [id number] #### [facility] ([facility]) [address] [place] [address] NEUTROPHILS (10*3/UL) IN BLOOD BY CALCULATION 7.1 10*3/uL Normal 1.6-7.6 [facility] Comment on above: Performed By: #### L [id number] #### [facility] ([employer]) [address] [place] [address] NEUTROPHILS/100 LEUKOCYTES IN BLOOD BY AUTOMATED COUNT 91.3 % High 40.0-72.0 [facility] Comment on above: Performed By: #### L [id number] #### [facility] ([facility]) [address] [place] [address] PROTIME-INRon 04-11-2025 INR IN PPP BY COAGULATION ASSAY 1.25 High 0.90-1.10 [facility] Comment on above: Result Comment: ACCC [...] CHEST 1995;[id number]. Performed By: #### L [id number] ####[facility] ([employer])[address] [place] [address] PROTHROMBIN TIME (PT) IN PPP BY COAGULATION ASSAY 15.6 Seconds High 12.3-14.8 [facility] Comment on above: Performed By: #### L [id number] ####[facility] ([facility])[address] [place] [address] 30on 04-10-2025 30 Daily Case Managemen t [...] Consultation Consultation and Management 04/10/25 0904 Normal [facility] 30 The patient is Moderately Stable [...] and maintained or improved Outcome: Progressing Normal [facility] 30 The patient is Moderately Stable [...] from fall injury Outcome: Progressing Flowsheets (Taken 04/10/2025555) Free from fall injury: Assess patient frequently for physical needs Identify cognitive and physical deficits and behaviors that affect risk of falls [place] fall precautions as indicated by assessment Educate [...] and prevent overall improvement and discharge Normal [facility] AMYLASEon 04-10-2025 Amylase [Catalytic activity/Vol] 451 U/L High 29-103 [facility] Comment on above: Performed By: #### L [id number] ####[facility] ([facility])[address] [place] [address] BASIC METABOLIC PANELon 03-14 Anion gap [Moles/Vol] 13 mmol/L Normal 7-20 [facility] Comment on above: Performed By: #### L [id number] ####[facility] ([facility])[address] [place] [address] Calcium [Mass/Vol] 7.9 mg/dL Low 8.6-10.3 [facility] Comment on above: Performed By: #### L [id number] ####[facility] ([facility])[address] [place] [address] Chloride [Moles/Vol] 104 mmol/L Normal 98-107 [facility] Comment on above: Performed By: #### L [id number] ####[facility] ([facility])[address] [place] [address] CO2 [Moles/Vol] 22 mmol/L Normal 21-31 [facility] Comment on above: Performed By: #### L [id number] ####[facility] ([facility])[address] [place] [address] Creatinine [Mass/Vol] 0.29 mg/dL Low 0.60-1.20 [facility] Comment on above: Performed By: #### L [id number] ####[facility] ([facility])[address] [place] [address] GLOMERULAR FILTRATION RATE ML/MIN/1.73 SQ M.PREDICTED 129.4 mL/min/1.73m*2 Normal >60.0 [facility] Comment on above: Result Comment: [facility]???s estimated glomerular filtration rate (eGFR) will [...] of individuals. Performed By: #### L [id number] ####[facility] ([facility])[address] [place] [address] Glucose [Mass/Vol] 99 mg/dL Normal 70-100 [facility] Comment on above: Performed By: #### L [id number] ####[facility] ([facility])[address] [place] [address] Potassium [Moles/Vol] 3.0 mmol/L Low 3.5-5.1 [facility] Comment on above: Performed By: #### L [id number] ####[facility] ([facility])[address] [place] [address] Sodium [Moles/Vol] 136 mmol/L Normal 136-145 [facility] Comment on above: Performed By: #### L [id number] ####[facility] ([facility])[address] [place] [address] Urea nitrogen [Mass/Vol] 17 mg/dL Normal 7-25 [facility] Comment on above: Performed By: #### L [id number] ####[facility] ([facility])[address] [place] [address] UREA NITROGEN/CREATININE (MASS RATIO) IN SER/PLAS 58.6 Normal [facility] Comment on above: Performed By: #### L [id number] ####[facility] ([facility])[address] [place] [address] CBC WITH AUTO DIFFERENTIALon 04-10-2025 Basophils (Bld) [#/Vol] 0.01 10*3/uL Normal 0.00-0.20 [facility] Comment on above: Performed By: #### L [id number] #### [facility] ([facility]) [address] [place] [address] Basophils/100 WBC (Bld) 0.1 % Normal 0.0-1.0 [facility] Comment on above: Performed By: #### L [id number] #### [facility] ([facility]) [address] [place] [address] Eosinophils (Bld) [#/Vol] 0.00 10*3/uL Normal 0.00-0.50 [facility] Comment on above: Performed By: #### L [id number] #### [facility] ([facility]) [address] [place] [address] Eosinophils/100 WBC (Bld) 0.0 % Normal 0.0-6.0 [facility] Comment on above: Performed By: #### L [id number] #### [facility] ([facility]) [address] [place] [address] Erythrocyte distribution width (RBC) [Ratio] 12.6 % Normal 11.5-15.0 [facility] Comment on above: Performed By: #### L [id number] #### [facility] ([facility]) [address] [place] [address] ERYTHROCYTE MEAN CORPUSCULAR HEMOGLOBIN CONCENTRATION (G/DL) BY AUTOMATED 34.1 g/dL Normal 32.0-35.0 [facility] Comment on above: Performed By: #### L [id number] #### [facility] ([facility]) [address] [place] [address] Hematocrit (Bld) [Volume fraction] 35.5 % Low 36.0-45.0 [facility] Comment on above: Performed By: #### L [id number] #### [facility] ([facility]) [address] [place] [address] Hemoglobin (Bld) [Mass/Vol] 12.1 g/dL Normal 12.0-15.0 [facility] Comment on above: Performed By: #### L [id number] #### [facility] ([facility]) [address] [place] [address] Immature granulocytes (Bld) [#/Vol] 0.05 10*3/uL Normal 0.00-0.20 [facility] Comment on above: Performed By: #### L [id number] #### [facility] ([facility]) [address] [place] [address] Immature granulocytes/100 WBC (Bld) 0.3 % Normal 0.0-1.0 [facility] Comment on above: Performed By: #### L [id number] #### [facility] ([facility]) [address] [place] [address] Lymphocytes (Bld) [#/Vol] 0.69 10*3/uL Low 1.20-4.00 [facility] Comment on above: Performed By: #### L [id number] #### [facility] ([facility]) [address] [place] [address] Lymphocytes/100 WBC (Bld) 4.8 % Low 20.0-45.0 [facility] Comment on above: Performed By: #### L [id number] #### [facility] ([facility]) [address] [place] [address] MCH (RBC) [Entitic mass] 32.4 pg Normal 27.0-33.0 [facility] Comment on above: Performed By: #### L [id number] #### [facility] ([facility]) [address] [place] [address] MCV (RBC) [Entitic vol] 95.2 fL Normal 82.0-98.0 [facility] Comment on above: Performed By: #### L [id number] #### [facility] ([facility]) [address] [place] [address] Monocytes (Bld) [#/Vol] 0.56 10*3/uL Normal 0.10-1.00 [facility] Comment on above: Performed By: #### L [id number] #### [facility] ([facility]) [address] [place] [address] Monocytes/100 WBC (Bld) 3.9 % Low 5.0-12.0 [facility] Comment on above: Performed By: #### L [id number] #### [facility] ([facility]) [address] [place] [address] Neutrophils (Bld) [#/Vol] 13.02 10*3/uL High 1.60-7.60 [facility] Comment on above: Performed By: #### L [id number] #### [facility] ([facility]) [address] [place] [address] Neutrophils/100 WBC (Bld) 90.9 % High 40.0-72.0 [facility] Comment on above: Performed By: #### L [id number] #### [facility] ([facility]) [address] [place] [address] NRBC (PER 100 WBCS) BY AUTOMATED COUNT 0.0 % Normal 0 [facility] Comment on above: Performed By: #### L [id number] #### [facility] ([facility]) [address] [place] [address] PLATELETS (10*3/UL) IN BLOOD AUTOMATED COUNT 144 10*3/uL Low 150-400 [facility] Comment on above: Performed By: #### L [id number] #### [facility] ([facility]) [address] [place] [address] RBC (Bld) [#/Vol] 3.73 10*6/uL Low 3.80-5.00 [facility] Comment on above: Performed By: #### L [id number] #### [facility] ([facility]) [address] [place] [address] WBC (Bld) [#/Vol] 14.33 10*3/uL High 4.00-10.60 [facility] Comment on above: Performed By: #### L [id number] #### [facility] ([facility]) [address] [place] [address] HEMOGLOBIN A1Con 04-10-2025 Glucose [Mass/Vol] 97 mg/dL Normal [facility] Comment on above: Performed By: #### L [id number] ####[facility] ([facility])[address] [place] [address] HbA1c (Bld) [Mass fraction] 5.0 % Normal 4.0-6.0 [facility] Comment on above: Performed By: #### L [id number] ####[facility] ([facility])[address] [place] [address] HEPATIC FUNCTION PANELon Albumin [Mass/Vol] 3.4 g/dL Low 3.5-5.7 [facility] Comment on above: Performed By: #### L [id number] #### [facility] ([facility]) [address] [place] [address] ALP [Catalytic activity/Vol] 104 U/L Normal 34-104 [facility] Comment on above: Performed By: #### L [id number] #### [facility] ([facility]) [address] [place] [address] ALT [Catalytic activity/Vol] 32 U/L Normal 7-52 [facility] Comment on above: Performed By: #### L [id number] #### [facility] ([facility]) [address] [place] [address] AST [Catalytic activity/Vol] 51 U/L High 13-39 [facility] Comment on above: Performed By: #### L [id number] #### [facility] ([facility]) [address] [place] [address] Bilirubin [Mass/Vol] 1.8 mg/dL High 0.3-1.0 [facility] Comment on above: Performed By: #### L [id number] #### [facility] ([facility]) [address] [place] [address] Magnesium [Mass/Vol] 0.5 mg/dL High 0-0.2 [facility] Comment on above: Performed By: #### L [id number] #### [facility] ([facility]) [address] [place] [address] Protein [Mass/Vol] 5.3 g/dL Low 6.0-8.3 [facility] Comment on above: Performed By: #### L [id number] #### [facility] ([facility] CENTER) [address] [place] [address] LIPASEon 04-10-2025 LIPASE (U/L) IN SER/PLAS 460 U/L High 11-82 [facility] Comment on above: Performed By: #### L [id number] ####[facility] ([facility])[address] [place] [address] MAGNESIUMon 04-10-2025 Magnesium [Mass/Vol] 1.6 mg/dL Low 1.9-2.7 [facility] Comment on above: Performed By: #### L [id number] ####[facility] ([employer])[address] [place] [address] NURSNOTEon 04-10-[address] Elizondo, one t abdoul albumin order can be completed after IV electrolyte replacement has finished. Normal [facility] PROTIME-INRon 04-10-2025 INR IN PPP BY COAGULATION ASSAY 1.31 High 0.90-1.10 [facility] Comment on above: Result Comment: ACCC [...] CHEST 1995;108:231S-246S. Performed By: #### L [id number] ####[facility] (BEAKER)[address] [place] [address] PROTHROMBIN TIME (PT) IN PPP BY COAGULATION ASSAY 16.2 Seconds High 12.3-14.8 [facility] Comment on above: Performed By: #### L [id number] ####[facility] (BEAKER)[address] [place] [address] TSH3 REFLEX TO FT4on 025 THYROTROPIN (MIU/L) IN SER/PLAS BY DETECTION LIMIT <= 0.05 MIU/L 2.83 mIU/L Normal 0.34-5.60 [facility] Comment on above: Performed By: #### L [id number] #### [facility] ([facility]) [address] [place] [address] 30on 04-09-2025 30 The patient is Moderately Stable - [...] and maintained or improved Outcome: Progressing Normal [facility] AMYLASEon 04-09-2025 Amylase [Catalytic activity/Vol] 1143 U/L High 29-103 [facility] Comment on above: Performed By: #### L [id number] ####[facility] ([facility])[address] [place] [address] BILIRUBIN, DIRECTon 04-09-20 25 Magnesium [Mass/Vol] 0.3 mg/dL High 0-0.2 [facility] Comment on above: Performed By: #### L [id number] #### [facility] ([facility]) [address] [place] [address] CBC WITH AUTO DIFFERENTIALon 04-09-2025 Basophils (Bld) [#/Vol] 0.04 10*3/uL Normal 0.00-0.20 [facility] Comment on above: Performed By: #### L [id number] ####[facility] ([facility])[address] [place] [address] Basophils/100 WBC (Bld) 0.2 % Normal 0.0-1.0 [facility] Comment on above: Performed By: #### L [id number] ####[facility] (BEAKER)[address] [place] [address] Eosinophils (Bld) [#/Vol] 0.01 10*3/uL Normal 0.00-0.50 [facility] Comment on above: Performed By: #### L [id number] ####[facility] ([facility])[address] [place] [address] Eosinophils/100 WBC (Bld) 0.0 % Normal 0.0-6.0 [facility] Comment on above: Performed By: #### L [id number] ####[facility] ([facility])[address] [place] [address] Erythrocyte distribution width (RBC) [Ratio] 12.2 % Normal 11.5-15.0 [facility] Comment on above: Performed By: #### L [id number] ####[facility] ([facility])[address] [place] [address] ERYTHROCYTE MEAN CORPUSCULAR HEMOGLOBIN CONCENTRATION (G/DL) BY AUTOMATED 34.2 g/dL Normal 32.0-35.0 [facility] Comment on above: Performed By: #### L [id number] ####[facility] ([facility])[address] [place] [address] Hematocrit (Bld) [Volume fraction] 43.0 % Normal 36.0-45.0 [facility] Comment on above: Performed By: #### L [id number] ####[facility] ([facility])[address] [place] [address] Hemoglobin (Bld) [Mass/Vol] 14.7 g/dL Normal 12.0-15.0 [facility] Comment on above: Performed By: #### L [id number] ####[facility] ([facility])[address] [place] [address] Immature granulocytes (Bld) [#/Vol] 0.11 10*3/uL Normal 0.00-0.20 [facility] Comment on above: Performed By: #### L [id number] ####[facility] (BEAKER)[address] [place] [address] Immature granulocytes/100 WBC (Bld) 0.5 % Normal 0.0-1.0 [facility] Comment on above: Performed By: #### L [id number] ####[facility] (BEAKER)[address] [place] [address] Lymphocytes (Bld) [#/Vol] 0.88 10*3/uL Low 1.20-4.00 [facility] Comment on above: Performed By: #### L [id number] ####[facility] (BEAKER)[address] [place] [address] Lymphocytes/100 WBC (Bld) 3.9 % Low 20.0-45.0 [facility] Comment on above: Performed By: #### L [id number] ####[facility] (BEAKER)[address] [place] [address] MCH (RBC) [Entitic mass] 32.1 pg Normal 27.0-33.0 [facility] Comment on above: Performed By: #### L [id number] ####[facility] (BEAKER)[address] [place] [address] MCV (RBC) [Entitic vol] 93.9 fL Normal 82.0-98.0 [facility] Comment on above: Performed By: #### L [id number] ####[facility] (BEAKER)[address] [place] [address] Monocytes (Bld) [#/Vol] 0.80 10*3/uL Normal 0.10-1.00 [facility] Comment on above: Performed By: #### L [id number] ####[facility] (BEAKER)[address] [place] [address] Monocytes/100 WBC (Bld) 3.5 % Low 5.0-12.0 [facility] Comment on above: Performed By: #### L [id number] ####[facility] (BEAKER)[address] [place] [address] Neutrophils (Bld) [#/Vol] 20.89 10*3/uL High 1.60-7.60 [facility] Comment on above: Performed By: #### L [id number] ####[facility] ([facility])[address] [place] [address] Neutrophils/100 WBC (Bld) 91.9 % High 40.0-72.0 [facility] Comment on above: Performed By: #### L [id number] ####[facility] ([facility])[address] [place] [address] NRBC (PER 100 WBCS) BY AUTOMATED COUNT 0.0 % Normal 0 [facility] Comment on above: Performed By: #### L [id number] ####[facility] ([facility])[address] [place] [address] PLATELETS (10*3/UL) IN BLOOD AUTOMATED COUNT 225 10*3/uL Normal 150-400 [facility] Comment on above: Performed By: #### L [id number] ####[facility] ([facility])[address] [place] [address] RBC (Bld) [#/Vol] 4.58 10*6/uL Normal 3.80-5.00 [facility] Comment on above: Performed By: #### L [id number] ####[facility] ([facility])[address] [place] [address] WBC (Bld) [#/Vol] 22.73 10*3/uL High 4.00-10.60 [facility] Comment on above: Performed By: #### L [id number] ####[facility] ([facility])[address] [place] [address] COMPREHENSIVE METABOLIC PANE Bernardo 04-09-2025 Albumin [Mass/Vol] 4.0 g/dL Normal 3.5-5.7 [facility] Comment on above: Performed By: #### L [id number] ####[facility] (BEAKER)[address] [place] [address] ALP [Catalytic activity/Vol] 71 U/L Normal 34-104 [facility] Comment on above: Performed By: #### L [id number] ####[facility] (BEAKER)[address] [place] [address] ALT [Catalytic activity/Vol] 8 U/L Normal 7-52 [facility] Comment on above: Performed By: #### L [id number] ####[facility] (BEAKER)[address] [place] [address] Anion gap [Moles/Vol] 12 mmol/L Normal 7-20 [facility] Comment on above: Performed By: #### L [id number] ####[facility] (BEAKER)[address] [place] [address] AST [Catalytic activity/Vol] 16 U/L Normal 13-39 [facility] Comment on above: Performed By: #### L [id number] ####[facility] (BEAKER)[address] [place] [address] Bilirubin [Mass/Vol] 1.6 mg/dL High 0.3-1.0 [facility] Comment on above: Performed By: #### L [id number] ####[facility] (BEAKER)[address] [place] [address] Calcium [Mass/Vol] 8.5 mg/dL Low 8.6-10.3 [facility] Comment on above: Performed By: #### L [id number] ####[facility] (BEAKER)[address] [place] [address] Chloride [Moles/Vol] 101 mmol/L Normal 98-107 [facility] Comment on above: Performed By: #### L [id number] ####[facility] (BEAKER)[address] [place] [address] CO2 [Moles/Vol] 27 mmol/L Normal 21-31 [facility] Comment on above: Performed By: #### L [id number] ####[facility] (BEAKER)[address] [place] [address] Creatinine [Mass/Vol] 0.36 mg/dL Low 0.60-1.20 [facility] Comment on above: Performed By: #### L [id number] ####[facility] ([facility])[address] [place] [address] GLOMERULAR FILTRATION RATE ML/MIN/1.73 SQ M.PREDICTED 122.8 mL/min/1.73m*2 Normal >60.0 [facility] Comment on above: Result Comment: The [facility]???s estimated glomerular filtration rate (eGFR) will [...] of individuals. Performed By: #### L [id number] ####[facility] ([facility])[address] [place] [address] Glucose [Mass/Vol] 142 mg/dL High 70-100 [facility] Comment on above: Performed By: #### L [id number] ####[facility] ([facility])[address] [place] [address] Potassium [Moles/Vol] 2.9 mmol/L Invalid Interpretation Code 3.5-5.1 [facility] Comment on above: Performed By: #### L [id number] ####[facility] ([facility])[address] [place] [address] Protein [Mass/Vol] 6.1 g/dL Normal 6.0-8.3 [facility] Comment on above: Performed By: #### L [id number] ####[facility] ([facility])[address] [place] [address] Sodium [Moles/Vol] 137 mmol/L Normal 136-145 [facility] Comment on above: Performed By: #### L [id number] ####[facility] ([facility])[address] [place] [address] Urea nitrogen [Mass/Vol] 18 mg/dL Normal 7-25 [facility] Comment on above: Performed By: #### L [id number] ####[facility] ([place] [address] UREA NITROGEN/CREATININE (MASS RATIO) IN SER/PLAS 50.0 Normal [facility] Comment on above: Performed By: #### L [id number] ####[facility] ([place])[address] [place] [address] CONSULTon 04-09-2025 CONSULT --- Attestation signed by Roscoe Saucedo MD at 04/09/2025 6:21 PM The patient [...] Further plan depends upon patient's clinical condition. Initial Gastroenterology/Hepato logy Consultation Note IDENTIFYING DATA PATIENT: Kati Thorne [...] Arthritis Asthma COPD (chronic obstructive pulmonary disease) ([facility]/HCC) Depression GERD (gastroesophageal reflux disease) Hypothyroidism Irritable [...] 1 ta (more content not included)... Normal [facility] HEPATIC FUNCTION PANELon Albumin [Mass/Vol] 3.9 g/dL Normal 3.5-5.7 [facility] Comment on above: Performed By: #### L [id number] ####[facility] (BEAKER)[address] [place] [address] ALP [Catalytic activity/Vol] 71 U/L Normal 34-104 [facility] Comment on above: Performed By: #### L [id number] ####[facility] (BEAKER)[address] [place] [address] ALT [Catalytic activity/Vol] 8 U/L Normal 7-52 [facility] Comment on above: Performed By: #### L [id number] ####[facility] (BEAKER)[address] [place] [address] AST [Catalytic activity/Vol] 15 U/L Normal 13-39 [facility] Comment on above: Performed By: #### L [id number] ####[facility] ([facility])[address] [place] [address] Bilirubin [Mass/Vol] 1.7 mg/dL High 0.3-1.0 [facility] Comment on above: Performed By: #### L [id number] ####[facility] ([facility])[address] [place] [address] Magnesium [Mass/Vol] 0.3 mg/dL High 0-0.2 [facility] Comment on above: Performed By: #### L [id number] ####[facility] ([facility])[address] [place] [address] Protein [Mass/Vol] 6.3 g/dL Normal 6.0-8.3 [facility] Comment on above: Performed By: #### L [id number] ####[facility] ([facility])[address] [place] [address] HIGH SENSITIVITY TROPONIN Io n 04-09-2025 HS TROPONIN I (NG/L) 81 ng/L Critically high <15 [facility] Comment on above: Performed By: #### L [id number] #### [facility] ([facility]) [address] [place] [address] HS TROPONIN I (NG/L) 84 ng/L Critically high <15 [facility] Comment on above: Performed By: #### L [id number] ####[facility] ([facility])[address] [place] [address] HS TROPONIN I (NG/L) 102 ng/L Critically high <15 [facility] Comment on above: Performed By: #### L [id number] ####[facility] ([facility])[address] [place] [address] LIPASEon 04-09-2025 LIPASE (U/L) IN SER/PLAS 2510 U/L High 11-82 [facility] Comment on above: Performed By: #### L [id number] ####[facility] ([facility])[address] [place] [address] PROTIME-INRon 04-09-2025 INR IN PPP BY COAGULATION ASSAY 1.11 High 0.90-1.10 [facility] Comment on above: Result Comment: ACCC [...] RANGE. CHEST 1995;108:231S-246S. Performed By: #### L [id number] #### [facility] ([facility]) [address] [place] [address] PROTHROMBIN TIME (PT) IN PPP BY COAGULATION ASSAY 14.3 Seconds Normal 12.3-14.8 [facility] Comment on above: Performed By: #### L [id number] #### [facility] ([facility]) [address] [place] [address] HISTOLOGY - TISSUE EXAMon LAB AP CASE REPORT Normal [facility] jonathany [facility] Comment on above: Result Comment: Surg ical Pathology Case: [id number] Authorizing Provider: Roscoe Saucedo MD Collected: 04/08/2025 0952 Ordering Location: [facility] Received: 04/08/2025 1115 [facility] Pathologist: Jas Barclay MD Specimen: Common Bile Duct, CBD bx r/o malignancy Performed By: #### L [id number] ####[facility] ([facility])[address] [place] [address] LAB AP CLINICAL INFORMATION Order Diagnoses [facility] Comment on above: Result Comment: K80. 50 - Recurrent biliary colic [ICD-10-CM] Performed By: #### L [id number] ####[facility] ([facility])[address] [place] [address] LAB AP GROSS DESCRIPTION [facility] Comment on above: Result Comment: A. C ommon Bile Duct. Received in formalin, labeled Kati Thorne CBD BX R/o malignancy, is a piece of miller translucent feathery mucosa with erythema measuring 0.3 x 0.1 by less than 0.1 cm. The specimen is submitted entirely in 1 cassette. Sven Richmond, Student Fellow Performed By: #### L [id number] ####[facility] ([facility])[address] [place] [address] LAB AP MICROSCOPIC DESCRIPTION Microscopic examination performed. [facility] Comment on above: Performed By: #### L [id number] ####[facility] ([facility])[address] [place] [address] LAB AP REPORT FINAL DIAGNOSIS NARRATIVE [facility] Comment on above: Result Comment: A. C ommon bile duct, biopsy: - Fibrous tissue with small strips of benign intestinal and biliary epithelium. - No malignancy identified. Performed By: #### L [id number] ####[facility] ([facility])[address] [place] [address] [facility] 04-08-2025 H&P reviewed. The patient was examined [...] for ERCP for persistent abdominal pain. Normal [facility] POCT GLUCOSE METER UNSOLICIT ED RESULTSon 04-08-2025 Glucose [Mass/Vol] 105 mg/dL Normal 70-105 [facility] Comment on above: Order Comment: Waive d Testing in the ED is performed under the ED CLIA certificate #[id number]. Result Comment: jhag eman Performed By: #### L [id number] #### [facility] (BEAKER) [address] [place] [address] Prep for Procedureon 025 Prep for Procedure [id number] Kati Thorne 1975 Provider Department Center 04/08/2025 ROSCOE DURANT [facility] No family history on file [facility] 36on 04-02-[address] Saucedo - he attempted to contact patient but did not get an answer. Call placed to patient by this speech writer to explain recommendations. Dr. Saucedo recommends an ERCP with sphincterotomy for further evaluation given continue biliary symptoms. Patient voiced understanding and was transferred to scheduling Normal [facility] Orders Onlyon 04-02-2025 Orders Only [id number] Kati Thorne 1975 Date Provider Department Center 04/02/2025 [facility] No family history on file Normal [facility] Telephoneon 03-30-2025 Telephone [id number] Kati Thorne 1975 F Date Provider Department Center 03/30/2025 [id number] DOUGLAS [facility] No family history on file Reason for Visit and Comments: Abdominal Pain [482812] Normal [facility] Telephoneon 03-18-2025 Telephone [id number] Kati Thorne 1975 F Date Provider Department Center 03/18/2025 [id number] FRANKS [facility] No family history on file Normal [facility] HISTOLOGY - TISSUE EXAMon LAB AP ADDENDUM 1 Normal [facility] Comment on above: Result Comment: Immu nostain for Helicobacter pylori, performed on part A with appropriately reactive control, is negative. Addendum electronically signed by Alicja Gonzalez MD on 03/18/2025 at 3:47 PM Performed By: #### L [id number] #### [facility] (AKER) [address] [place] [address] LAB AP ASR DISCLAIMER The interpretation of [...] the Clinical Laboratory Improvement Amendments of 1998. Normal [facility] Comment on above: Performed By: #### L [id number] #### [facility] ([facility]) [address] [place] [address] LAB AP CASE REPORT Normal [facility] Comment on above: Result Comment: Surg ical Pathology Case: [id number] Authorizing Provider: Roscoe Saucedo MD Collected: 03/11/2025 0949 Ordering Location: [facility] Received: 03/11/2025 1215 [facility] Pathologist: Alicja Gonzalez MD Specimens: A) - Gastric, r/o h.pylori B) - Gastroesophageal Junction, r/o barretts C) - Small Intestine, Duodenum, r/o celiacs Performed By: #### L [id number] #### [facility] ([facility]) [address] [place] [address] LAB AP CLINICAL INFORMATION Order Diagnoses [facility] Comment on above: Result Comment: K83. 8 - Dilated cbd, acquired [ICD-10-CM] Performed By: #### L [id number] #### [facility] [address] [place] [address] LAB AP GROSS DESCRIPTION A. Gastric. [facility] Comment on above: Result Comment: The specimen is received in formalin labeled Kati Sebastian and gastric, r/o H. pylori. It consists of 5 bits of joy-pink mucosal tissue ranging from 0.2 cm to 0.5 cm in greatest dimension. The specimen is submitted in toto in 1 cassette. Gisell Mendoza, Pathologists' Packaging Machine Operator student Pilar Han, Pathologists' Packaging Machine Operator B. Gastroesophageal Junction. The specimen is received in formalin labeled Kati Sebastian and GE junction, r/o barretts. It consists of 2 bits and strips of joy-white, focally erythematous mucosal tissue, 0.6 cm and 0.1 cm in greatest dimension. The specimen is submitted in toto in 1 cassette. Gisell Mendoza, Pathologists' Packaging Machine Operator student Pilar Han, Pathologists' Packaging Machine Operator C. Small Intestine, Duodenum. The specimen is received in formalin labeled Kati Sebastian and duodenum, r/o celiacs. It consists of 6 bits and strips of joy-pink villous mucosal tissue ranging from 0.1 cm to 0.6 cm in greatest dimension. The specimen is submitted in toto in 1 cassette. Gisell Mendoza, Pathologists' Packaging Machine Operator student Pilar Han, Pathologists' Packaging Machine Operator Performed By: #### L [id number] #### [facility] ([facility] [address] [place] [address] LAB AP MICROSCOPIC DESCRIPTION Microscopic examination performed. [facility] Comment on above: Performed By: #### L [id number] #### [facility] ([facility]ER) [address] [facility] [place] [address] LAB AP REPORT FINAL DIAGNOSIS NARRATIVE [facility] Comment on above: Result Comment: Radha cornelius, biopsy: - Chronic, focally active gastritis. - [...] celiac disease noted. Performed By: #### L [id number] #### [facility] ([facility]) [address] [place] [address] HPon 03-11-2025 History Of Present Illness Kati Thorne is [...] GI tract and the pancreaticobiliary system. Normal [facility] NURSNOTEon 03-11-2025 NURSNOTE Discharge reviewed w sheila pt. And yumiko Lindsey, both verbalized understanding of instructions with no questions prior to DC. Normal [facility] POCT GLUCOSE METER UNSOLICIT ED RESULTSon 03-11-2025 Glucose [Mass/Vol] 96 mg/dL Normal 70-105 [facility] Comment on above: Order Comment: Waive d Testing in the ED is performed under the ED CLIA certificate #[id number]. Result Comment: ltol les Performed By: #### L [id number] ####[facility] ([facility]ER)[address] [place] [address] Prep for Procedureon 025 Prep for Procedure [id number] Kati Thorne 1975 F Date Provider Department Center 03/11/2025 [facility] No family history on file Normal [facility] Orders Onlyon 03-09-2025 Orders Only [id number] Kati Thorne 1975 F Date Provider Department [place] 03/09/2025 [id number], HISTORICAL [facility] No family history on file Normal [facility] Telephoneon 02-25-2025 Telephone [id number] Kati Thorne 1975 F Date [facility] Department [place] 02/25/2025 JUANA JONES [facility] No family history on file Normal [facility] C ANAon 07-13-2024 C NOE --- Final No anaerobic growth after 72 hrs. [facility] Comment on above: Performed By: #### A NAC #### [place] [address] C NOE --- Final No anaerobic growth after 72 hrs. [facility] Comment on above: Performed By: #### S [facility] #### [facility] CAMPUS (DEFAULT) [address] [place] [address] [place] [address] C NOE --- Final No anaerobic growth after 72 hrs. [facility] Comment on above: Performed By: #### A NAC #### [facility] [address] [facility] [place] [address] C NOE --- Final No anaerobic growth after 72 hrs. [facility] Comment on above: Performed By: #### S BSC #### [facility] (DEFAULT) [address] [place] [place] [address] [facility] [address] [place] [place] [address] C Sterile BSon 07-12-2024 C Sterile BS --- Final Light Growth of Klebsiella oxytoca isolated . and Moderate Growth of Methicillin-Sensitive Staph aureus isolated Refer to previous culture for susceptibility. ORGANISM Kleoxy MSSA Gram Stain No organisms seen. -- SUSCEPTIBILITY - ORGANISM ID: 1 ANTIBIOTIC INTERPRETATION ROBERT STATUS POS Klebsiella oxytoca Ampicillin/Sulbactam I 16 V Ampicillin R >=32 V Cefazolin R >=32 V Cefepime S <=0.12 V Ceftazidime S <=0.5 V Ceftriaxone S <=0.25 V Ciprofloxacin S <=0.06 V Gentamicin S <=1 V Levofloxacin S <=0.12 V Meropenem S <=0.25 V Trimethoprim/Sulfa S <=20 V Normal [facility] Comment on above: Performed By: #### S [facility] #### [facility] (DEFAULT) [address] [place] [place] [address] [facility] [address] [place] [address] C Sterile BS --- Final Light Growth of Staphylococcus aureus isolated . and Scant Growth of Klebsiella oxytoca isolated ORGANISM Kleoxy SA Gram Stain No organisms seen. -- SUSCEPTIBILITY - ORGANISM ID: 1 ANTIBIOTIC INTERPRETATION ROBERT STATUS POS Klebsiella oxytoca Ampicillin/Sulbactam I 16 V Ampicillin R >=32 V Cefazolin R >=32 V Cefepime S <=0.12 V Ceftazidime S <=0.5 V Ceftriaxone S <=0.25 V Ciprofloxacin S <=0.06 V Gentamicin S <=1 V Levofloxacin S <=0.12 V Meropenem S <=0.25 V Trimethoprim/Sulfa S <=20 V -- SUSCEPTIBILITY - ORGANISM ID: 2 ANTIBIOTIC INTERPRETATION ROBERT STATUS POS Staphylococcus aureus Clindamycin S 0.25 V Daptomycin S 0.5 V Doxycycline S <=0.5 V Erythromycin S <=0.25 V Linezolid S 2 V Levofloxacin S <=0.12 V Moxifloxacin S <=0.25 V Oxacillin S 0.5 V Tetracycline S <=1 V Trimethoprim/Sulfa S <=10 V Vancomycin S 1 V Normal [facility] Comment on above: Performed By: #### S [facility] #### [facility] (DEFAULT) [address] [place] [place] [address] [facility] [address] [place] [address] C Sterile BS --- Final Moderate Growth of Klebsiella oxytoca isolated . and Moderate Growth of Staphylococcus aureus isolated ORGANISM Kleoxy SA Gram Stain No organisms seen. Rare epithelial cells -- SUSCEPTIBILITY - ORGANISM ID: 1 ANTIBIOTIC INTERPRETATION ROBERT STATUS POS Klebsiella oxytoca Ampicillin/Sulbactam S 8 V Ampicillin R >=32 V Cefazolin R >=32 V Cefepime S <=0.12 V Ceftazidime S <=0.5 V Ceftriaxone S <=0.25 V Ciprofloxacin S <=0.06 V Gentamicin S <=1 V Levofloxacin S <=0.12 V Meropenem S <=0.25 V Trimethoprim/Sulfa S <=20 V -- SUSCEPTIBILITY - ORGANISM ID: 2 ANTIBIOTIC INTERPRETATION ROBERT STATUS POS Staphylococcus aureus Clindamycin S 0.25 V Daptomycin S 0.5 V Doxycycline S <=0.5 V Erythromycin S <=0.25 V Linezolid S 2 V Levofloxacin S <=0.12 V Moxifloxacin S <=0.25 V Oxacillin S 0.5 V Tetracycline S <=1 V Trimethoprim/Sulfa S <=10 V Vancomycin S 1 V Normal [facility] Comment on above: Performed By: #### S BS #### [facility] (DEFAULT) [address] [place] [address] [facility] [address] [place] [address] C Sterile BS --- Final Moderate Growth of Staphylococcus aureus isolated ORGANISM SA Gram Stain No organisms seen. Rare epithelial cells -- SUSCEPTIBILITY - ORGANISM ID: 1 ANTIBIOTIC INTERPRETATION ROBERT STATUS POS Staphylococcus aureus Clindamycin S 0.25 V Daptomycin S 0.5 V Doxycycline S <=0.5 V Erythromycin S <=0.25 V Linezolid S 2 V Levofloxacin S <=0.12 V Moxifloxacin S <=0.25 V Oxacillin S <=0.25 V Tetracycline S <=1 V Trimethoprim/Sulfa S <=10 V Vancomycin S 1 V Normal [facility] Comment on above: Performed By: #### S BS #### [facility] (DEFAULT) [address] [place] [address] [facility] [address] [place] [address] .[facility] 07-11-2024 GFR/1.73 sq M.predicted MDRD (S/P/Bld) [Vol rate/Area] mL/min/{1.73_m2} Normal >=60 [facility] Comment on above: Result Comment: [facility] have implemented the eGFR calculation [...] years Performed By: #### A NAC #### [facility] [address] [place] [address] CBC w/ Diffon 07-11-2024 Erythrocyte distribution width (RBC) [Ratio] 13.4 % Normal 11.6-14.8 [facility] Comment on above: Performed By: #### S BSC #### [facility] (DEFAULT) [address] [place] [address] [place] [id number] Hematocrit (Bld) [Volume fraction] 37.5 % Normal 36.0-46.0 [facility] Comment on above: Performed By: #### S BSC #### [facility] (DEFAULT) [address] [place] [address] [facility] [address] [place] [id number] Hemoglobin (Bld) [Mass/Vol] 12.6 g/dL Normal 12.0-16.0 [facility] Comment on above: Performed By: #### S BSC #### [facility] (DEFAULT) [address] [place] [address] [facility] [address] [place] [address] MCH (RBC) [Entitic mass] 32.5 pg Normal 27.0-35.0 [facility] Comment on above: Performed By: #### S BSC #### [facility] (DEFAULT) [address] [place] [address] [facility] [address] [place] [address] MCHC 33.7 % Normal 31.0-37.0 [facility] Comment on above: Performed By: #### S BSC #### [facility] (DEFAULT) [address] [place] [address] [facility] [address] [place] [address] MCV (RBC) [Entitic vol] 96.6 fL Normal 80.0-100.0 [facility] Comment on above: Performed By: #### S BSC #### [facility] (DEFAULT) [address] [place] [address] [facility] [address] [place] [address] Platelet 172 x10*3/mcL Normal 150-450 [facility] Comment on above: Performed By: #### S BSC #### [facility] (DEFAULT) [address] [place] [address] [facility] [address] [place] [address] Platelet mean volume (Bld) [Entitic vol] 9.3 fL Normal 6.7-10.6 [facility] Comment on above: Performed By: #### S BSC #### [facility] (DEFAULT) [address] [place] [address] [facility] [address] [place] [address] RBC 3.88 x10*6/mcL Normal 3.80-5.20 [facility] Comment on above: Performed By: #### S BSC #### [facility] (DEFAULT) [address] [place] [address] [facility] [address] [place] [address] WBC 8.8 x10*3/mcL Normal 4.5-11.0 [facility] Comment on above: Performed By: #### S BSC #### [facility] (DEFAULT) [address] [place] [address] [facility] [address] [place] [address] CMPon 07-11-2024 Albumin [Mass/Vol] 3.5 g/dL Normal 3.2-4.9 [facility] Comment on above: Performed By: #### S BSC #### [facility] (DEFAULT) [address] [place] [address] [facility] [address] [place] [address] Albumin/Globulin [Mass ratio] 1.5 {ratio} Normal 1.1-2.2 [facility] Comment on above: Performed By: #### S BSC #### [facility] (DEFAULT) [address] [place] [address] [facility] [address] [place] [address] Alk Phos 66 IU/L Normal 32-91 [facility] Comment on above: Performed By: #### S BSC #### [facility] (DEFAULT) [address] [place] [address] [facility] [address] [place] [address] ALT [Catalytic activity/Vol] 11 U/L Low 14-54 [facility] Comment on above: Performed By: #### S BSC #### [facility] (DEFAULT) [address] [place] [address] [facility] [address] [place] [address] Anion gap [Moles/Vol] 7 mmol/L Normal 4-12 [facility] Comment on above: Performed By: #### S BSC #### [facility] (DEFAULT) [address] [place] [address] [facility] [address] [place] [address] AST [Catalytic activity/Vol] 16 U/L Normal 15-41 [facility] Comment on above: Performed By: #### S BSC #### [facility] (DEFAULT) [address] [place] [address] [facility] [address] [place] [address] Bili Total 1.3 mg/dL High 0.3-1.2 [facility] Comment on above: Performed By: #### S BSC #### [facility] (DEFAULT) [address] [place] [address] [facility] [address] [place] [address] Calcium [Mass/Vol] 8.4 mg/dL Low 8.5-10.3 [facility] Comment on above: Performed By: #### S BSC #### [facility] (DEFAULT) [address] [place] [address] [facility] [address] [place] [address] Chloride [Moles/Vol] 103 mmol/L Normal 98-110 [facility] Comment on above: Performed By: #### S BSC #### [facility] (DEFAULT) [address] [place] [address] [facility] [address] [place] [address] CO2 [Moles/Vol] 28 mmol/L Normal 22-32 [facility] Comment on above: Performed By: #### S BSC #### [facility] (DEFAULT) [address] [place] [address] [facility] [address] [place] [address] Creatinine [Mass/Vol] 0.63 mg/dL Normal 0.44-1.03 [facility] Comment on above: Performed By: #### S BSC #### [facility] (DEFAULT) [address] [place] [address] [facility] [address] [place] [address] Glucose [Mass/Vol] 103 mg/dL High 70-99 [facility] Comment on above: Performed By: #### S BSC #### [facility] (DEFAULT) [address] [place] [address] [facility] [address] [place] [address] Potassium [Moles/Vol] 2.9 mmol/L Low 3.4-4.8 [facility] Comment on above: Performed By: #### S BSC #### [facility] (DEFAULT) [address] [place] [address] [facility] [address] [place] [address] Protein [Mass/Vol] 5.9 g/dL Low 6.5-8.1 [facility] Comment on above: Performed By: #### S BSC #### [facility] (DEFAULT) [address] [place] [address] [facility] [address] [place] [address] Sodium [Moles/Vol] 138 mmol/L Normal 133-142 [facility] Comment on above: Performed By: #### S BSC #### [facility] (DEFAULT) [address] [place] [address] [facility] [address] [place] [address] Urea nitrogen [Mass/Vol] 7 mg/dL Low 8-26 [facility] Comment on above: Performed By: #### S BSC #### [facility] (DEFAULT) [address] [place] [address] [facility] [address] [place] [address] Urea nitrogen/Creatinine [Mass ratio] 11.1 mg/mg Normal 10.0-20.0 [facility] Comment on above: Performed By: #### S BSC #### [facility] (DEFAULT) [address] [place] [address] [facility] [address] [place] [address] Dietary Consultationon 07-11 Dietary Consultation Consult for low BMI . Pt is a 48 year old female with PMHx of COPD, HTN, hypothyroidism. 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 Reports UBW of 108# since losing weight about 3-4 years ago which algins with weight on admit. Reports she is discharging after potassium infusion. Will continue to follow along appropriately. Electronically signed by ___ Mehnaz Moran RD 07/11/24 15:56 EDT Normal [facility] Diff Autoon 07-11-2024 Baso Absolute 0.0 x10*3/mcL Normal 0.0-0.2 [facility] Comment on above: Performed By: #### A NAC #### [facility] [address] [place] [address] Basophils/100 WBC (Bld) 0.5 % Normal 0.0-1.5 [facility] Comment on above: Performed By: #### A NAC #### [facility] [address] [place] [address] Eos Absolute 0.0 x10*3/mcL Normal 0.0-0.4 [facility] Comment on above: Performed By: #### A NAC #### [facility] [address] [place] [address] Eosinophils/100 WBC (Bld) 0.3 % Normal 0.0-5.4 [facility] Comment on above: Performed By: #### A NAC #### [facility] [address] [place] [address] Lymph Absolute 2.1 x10*3/mcL Normal 1.0-4.8 [facility] Comment on above: Performed By: #### A NAC #### [address] [address] Lymphocytes/100 WBC (Bld) 24.0 % Low 27.2-40.8 [facility] Comment on above: Performed By: #### A NAC #### [place] [id number] [place] Absolute 0.5 x10*3/mcL Normal 0.1-1.1 [facility] Comment on above: Performed By: #### A NAC #### [place] [id number] Monocytes/100 WBC (Bld) 6.1 % Normal 3.7-11.9 [facility] Comment on above: Performed By: #### A NAC #### [place] [id number] Neutro Absolute 6.1 x10*3/mcL Normal 1.8-7.7 [facility] Comment on above: Performed By: #### A NAC #### [place] [id number] Neutro Auto 69.1 % Normal 47.2-70.8 [facility] Comment on above: Performed By: #### A NAC #### [place] [id number] Inpatient Clinical Summaryon 07-11-2024 Inpatient Clinical Summary [address] [address] [place] [address] Clinical Summary Person Information Name: Kati Thorne Age: 48 Years : 1975 Sex: Female PCP: Unavailable, Physician Marital Status: Phone: PCP: Race: White Ethnicity: Not or Language: Syrian Visit Id: Visit Reason: Speciality: Acuity: Enc Type: Observation Med Service: Surgery Arrival: 07/10/2024 11:21:35 Discharge: Dispo Type: Address: [address] [place] [id number] Diagnosis: Discharged To: Home Treatments: Devices/Equipment: Professional Skilled Services: Special Services and Community Resources: Mode of Discharge Transportation: Discharge Orders Discharge Special Instructions sole edge inker machine will contact you tomorrow regarding pain medication [...] range between ( 27.2 and 40.8 ) [place] Auto: 6.1 % -- Normal range between [...] range between ( 36.0 and 46.0 ) [place] Absolute: 0.5 x10 MCH: 32.5 pg -- [...] Immunizations Doc (more content not included)... Normal [facility] Potassiumon 07-11-2024 Potassium [Moles/Vol] 4.0 mmol/L Normal 3.4-4.8 [facility] Comment on above: Performed By: #### A NAC #### [place] [address] Progress Note-Nurseon 2023 Progress Note-Nurse Discharge instructio ns reviewed with pt and pt verbalizes understanding. Pt taken per wheelchair to private vehicle accompanied by tech. Electronically signed by ___ Marysol Lopes 07/11/24 17:03 EDT Normal [facility] .eGFRon 07-10-2024 GFR/1.73 sq M.predicted MDRD (S/P/Bld) [Vol rate/Area] mL/min/{1.73_m2} Normal >=60 [facility] Comment on above: Result Comment: [facility] have implemented the eGFR calculation [...] years Performed By: #### A NAC #### [place] [id number] CBC w/ Diffon 07-10-2024 Erythrocyte distribution width (RBC) [Ratio] 13.5 % Normal 11.6-14.8 [facility] Comment on above: Performed By: #### A NAC #### [place] [id number] Hematocrit (Bld) [Volume fraction] 39.9 % Normal 36.0-46.0 [facility] Comment on above: Performed By: #### A NAC #### [place] [id number] Hemoglobin (Bld) [Mass/Vol] 13.3 g/dL Normal 12.0-16.0 [facility] Comment on above: Performed By: #### A NAC #### [address] [address] MCH (RBC) [Entitic mass] 32.2 pg Normal 27.0-35.0 [facility] Comment on above: Performed By: #### A NAC #### [address] [address] MCHC 33.4 % Normal 31.0-37.0 [facility] Comment on above: Performed By: #### A NAC #### [address] [place] [address] MCV (RBC) [Entitic vol] 96.6 fL Normal 80.0-100.0 [facility] Comment on above: Performed By: #### A NAC #### [place] [id number] Platelet 182 x10*3/mcL Normal 150-450 [facility] Comment on above: Performed By: #### A NAC #### [place] [id number] Platelet mean volume (Bld) [Entitic vol] 8.9 fL Normal 6.7-10.6 [facility] Comment on above: Performed By: #### A NAC #### [place] [id number] RBC 4.13 x10*6/mcL Normal 3.80-5.20 [facility] Comment on above: Performed By: #### A NAC #### [place] [id number] WBC 10.2 x10*3/mcL Normal 4.5-11.0 [facility] Comment on above: Performed By: #### A NAC #### [place] [id number] CMPon 07-10-2024 Albumin [Mass/Vol] 3.8 g/dL Normal 3.2-4.9 [facility] Comment on above: Performed By: #### A NAC #### [place] [id number] Albumin/Globulin [Mass ratio] 1.4 {ratio} Normal 1.1-2.2 [facility] Comment on above: Performed By: #### A NAC #### [place] [id number] Alk Phos 75 IU/L Normal 32-91 [facility] Comment on above: Performed By: #### A NAC #### [place] [id number] ALT [Catalytic activity/Vol] 13 U/L Low 14-54 [facility] Comment on above: Performed By: #### A NAC #### [address] [place] [address] Anion gap [Moles/Vol] 10 mmol/L Normal 4-12 [facility] Comment on above: Performed By: #### A NAC #### [address] [place] [address] AST [Catalytic activity/Vol] 17 U/L Normal 15-41 [facility] Comment on above: Performed By: #### A NAC #### [address] [address] Bili Total 0.9 mg/dL Normal 0.3-1.2 [facility] Comment on above: Performed By: #### A NAC #### [address] [address] Calcium [Mass/Vol] 8.6 mg/dL Normal 8.5-10.3 [facility] Comment on above: Performed By: #### A NAC #### [address] [place] [address] Chloride [Moles/Vol] 103 mmol/L Normal 98-110 [facility] Comment on above: Performed By: #### A NAC #### [address] [address] CO2 [Moles/Vol] 27 mmol/L Normal 22-32 [facility] Comment on above: Performed By: #### A NAC #### [address] [place] [address] Creatinine [Mass/Vol] 0.54 mg/dL Normal 0.44-1.03 [facility] Comment on above: Performed By: #### A NAC #### [address] [place] [address] Glucose [Mass/Vol] 105 mg/dL High 70-99 [facility] Comment on above: Performed By: #### A NAC #### [address] [address] Potassium [Moles/Vol] 2.7 mmol/L Low 3.4-4.8 [facility] Comment on above: Performed By: #### A NAC #### [address] [address] Protein [Mass/Vol] 6.6 g/dL Normal 6.5-8.1 [facility] Comment on above: Performed By: #### A NAC #### [address] [address] Sodium [Moles/Vol] 140 mmol/L Normal 133-142 [facility] Comment on above: Performed By: #### A NAC #### [address] [address] Urea nitrogen [Mass/Vol] 9 mg/dL Normal 8-26 [facility] Comment on above: Performed By: #### A NAC #### [address] [address] Urea nitrogen/Creatinine [Mass ratio] 16.7 mg/mg Normal 10.0-20.0 [facility] Comment on above: Performed By: #### A NAC #### [address] [address] Diff Autoon 07-10-2024 Baso Absolute 0.1 x10*3/mcL Normal 0.0-0.2 [facility] Comment on above: Performed By: #### A NAC #### [address] [address] Basophils/100 WBC (Bld) 0.6 % Normal 0.0-1.5 [facility] Comment on above: Performed By: #### A NAC #### [address] [address] Eos Absolute 0.0 x10*3/mcL Normal 0.0-0.4 [facility] Comment on above: Performed By: #### A NAC #### [address] [address] Eosinophils/100 WBC (Bld) 0.3 % Normal 0.0-5.4 [facility] Comment on above: Performed By: #### A NAC #### [place] [address] [place] [address] Lymph Absolute 2.3 x10*3/mcL Normal 1.0-4.8 [facility] Comment on above: Performed By: #### A NAC #### [address] [address] Lymphocytes/100 WBC (Bld) 22.8 % Low 27.2-40.8 [facility] Comment on above: Performed By: #### A NAC #### [address] [address] [place] Absolute 0.5 x10*3/mcL Normal 0.1-1.1 [facility] Comment on above: Performed By: #### A NAC #### [address] [address] Monocytes/100 WBC (Bld) 5.2 % Normal 3.7-11.9 [facility] Comment on above: Performed By: #### A NAC #### [address] [address] Neutro Absolute 7.2 x10*3/mcL Normal 1.8-7.7 [facility] Comment on above: Performed By: #### A NAC #### [address] [address] Neutro Auto 71.1 % High 47.2-70.8 [facility] Comment on above: Performed By: #### A NAC #### [address] [address] Magnesiumon 07-10-2024 Magnesium [Mass/Vol] 1.8 mg/dL Normal 1.7-2.4 [facility] Comment on above: Performed By: #### S BSC #### [facility] (DEFAULT) [address] [place] [place] [id number] [address] Operative Reporton 08-29-202 4 Operative Report Indication for Surge ry Patient [...] Surgeon(s) Hayden Recinos DO (Surgeon - Primary) Packaging Machine Operator None Anesthesia General Thaddeus RAMIREZ, Dominick Young (Medical Appliance Maker) Zcakery De Dios (Provider) Estimated Blood Loss 5 [...] Catheters, Drains, Tubes None Electronically signed by ___ Tej PHILLIPS Hayden Alton 07/10/24 15:47 EDT Normal [facility] XR Finger 2nd Digit Righton [...] Electronically Signed in Other Vendor System) Normal [facility] XR FINGER LEFT (MIN 2 [...] Robertson Jr., MD 06/30/24 Final result Normal [facility] XR FINGER RIGHT (MIN 2 VIEWS [...] Robertson Jr., MD 06/09/24 Final result Normal [facility] XR NECK SOFT TISSUEon 2022 XR [...] ANGY SMALLS Date: 2023-02-23 13:14 Normal [facility] FREE T4on 02-20-2023 Free T4 [Mass/Vol] 0.65 ng/dL Critically low 0.76-1.46 [facility] Comment on above: Performed By: #### L ACT #### [facility] [address] [place] [address] Dr. Jovanna Magana TSH W/ REFLEX TO FT4on 02-20 TSH 5.032 uIU/mL Critically high 0.358-3.740 [facility] Comment on above: Performed By: #### L ACT #### [facility] [address] [address] [address] Jovanna Magana RESPIRATORY PANEL PLUSon Adenovirus Not detected Normal NOT DETECTED [facility] Comment on above: Performed By: #### R SPLUS ####[facility] [address] [address]Dr. Jovanna Magana B. Parapertusis Not detected Normal NOT DETECTED [facility] Comment on above: Performed By: #### R SPLUS ####[facility] [address] [place], [place] [address]Dr. Jovanna Magana B. Pertussis Not detected Normal NOT DETECTED The [facility] Comment on above: Performed By: #### R SPLUS ####[facility] [address] [address]Dr. Jovanna Magana Chlamydia Pneumoniae Not detected Normal NOT DETECTED [facility] Comment on above: Performed By: #### R SPLUS ####[facility] [address] [place], [place] [address]Dr. Jovanna Magana Coronavirus 229E Not detected Normal NOT DETECTED [facility] Comment on above: Performed By: #### R SPLUS ####[facility] [address] [address]Dr. Jovanna Magana Coronavirus HKU1 Not detected Normal NOT DETECTED [facility] Comment on above: Performed By: #### R SPLUS ####[facility] [address] [place], [place] [address]Dr. Jovanna Magana Coronavirus NL63 Not detected Normal NOT DETECTED [facility] Comment on above: Performed By: #### R SPLUS ####[facility] [address] [place], [place] [address]Dr. Jovanna Magana Coronavirus OC43 Not detected Normal NOT DETECTED [facility] Comment on above: Performed By: #### R SPLUS ####[facility] [address] [place], [place] [address]Dr. Jovanna Magana Influenza A H1 Not detected Normal NOT DETECTED [facility] Comment on above: Performed By: #### R SPLUS ####[facility] [address] [place], [place] [address]Dr. Jovanna Magana Influenza A H1 2009 Not detected Normal NOT DETECTED T [facility] Comment on above: Performed By: #### R SPLUS ####[facility] [address] [place], [place] [address]Dr. Jovanna Magana Influenza A H3 Not detected Normal NOT DETECTED [facility] Comment on above: Performed By: #### R SPLUS ####[facility] [address] [place], [place] [address]Dr. Jovanna Magana Influenza B Not detected Normal NOT DETECTED [facility] Comment on above: Performed By: #### R SPLUS ####[facility] [address] [place], [place] [address]Dr. Jovanna Magana Metapneumovirus Not detected Normal NOT DETECTED [facility] Comment on above: Performed By: #### R SPLUS ####[facility] [address] [place], [place] [address]Dr. Jovanna Magana Mycoplas. Pneumoniae Not detected Normal NOT DETECTED [facility] Comment on above: Performed By: #### R SPLUS ####[facility] [address] [place], [place] [address]Dr. Jovanna Magana Parainfluenza 1 Not detected Normal NOT DETECTED [facility] Comment on above: Performed By: #### R SPLUS ####[facility] [address] [place], [place] [address]Dr. Yireagan Magana Parainfluenza 2 Not detected Normal NOT DETECTED [facility] Comment on above: Performed By: #### R SPLUS ####[facility] [address] [place], [place] [address]Dr. Yireagan Magana Parainfluenza 3 Not detected Normal NOT DETECTED [facility] Comment on above: Performed By: #### R SPLUS ####[facility] [address] [place], [place] [address]Dr. Yireagan Magana Parainfluenza 4 Not detected Normal NOT DETECTED [facility] Comment on above: Performed By: #### R SPLUS ####[facility] [address] [address]Dr. Jovanna Magana Rhino/Enterovirus Not detected Normal NOT DETECTED [facility] Comment on above: Performed By: #### R SPLUS ####[facility] [address] [place], [place] [address]Dr. Rosaliareagan Nino RP2 Header 1 RESPIRATORY PANEL: VIRUSES Normal [facility] Comment on above: Performed By: #### R SPLUS ####[facility] [address] [place], [place] [address]Dr. Jovanna Magana RP2 Header 2 RESPIRATORY PANEL: BACTERIA Normal [facility] Comment on above: Performed By: #### R SPLUS ####[facility] [address] [place], [place] [address]Dr. Rosaliareagan Magana RSV Not detected Normal NOT DETECTED [facility] Comment on above: Performed By: #### R SPLUS ####[facility] [address] [place], [place] [address]Dr. Jovanna Magana SARS-CoV-2 (COVID-19) RNA DUC+probe Ql (Unsp spec) Not detected Normal NOT DETECTED [facility] Comment on above: Performed By: #### R SPLUS ####[facility] [address] [place], [place] [address]Dr. Jovanna Mgaana MG MAMM SCREEN 3D CHELLY CADon 01-12-2023 MG MAMM SCREEN 3D CHELLY CAD Patient: KATI THORNE Exam Date: 01/12/2023 : 1975 Gender:F Ordering : TATUM RahJhony CLINTONJAMILAH Admission #: [id number] Family : Order #: [id number] CLICK HERE TO VIEW EXAM RADIOLOGY REPORT [...] cervical cancer at age 40. LOCATION: [facility] BREAST COMPOSITION: Almost entirely fatty. [...] Perez MD on 01/12/2023 at 12:42 Normal [facility] XR DEXA BONE DENSITYon 01-12 XR [...] by: RJ PEREZ Date: 2023-01-12 17:10 Normal [facility] GABAPENTIN URINEon 3 Gabapentin, Urine Negative Normal [facility] Comment on above: Performed By: #### G ABAP ####[facility] [address] [address]Dr. Jovanna Magana DRUG SCREEN RAPID (URINE)on 11-14-2022 AMP Negative Normal NEGATIVE [facility] Comment on above: Performed By: #### V ITB12 #### [facility] [address] [address] [address] Jovanna Magana BAR Negative Normal NEGATIVE [facility] Comment on above: Performed By: #### V ITB12 #### [facility] [address] [address] [address] Jovanna Magana BUP Negative Normal NEGATIVE [facility] Comment on above: Performed By: #### V ITB12 #### [facility] [address] [place] [address] Dr. Jovanna Magana BZO Negative Normal NEGATIVE [facility] Comment on above: Performed By: #### V ITB12 #### [facility] [address] [place] [address] Dr. Jovanna Magana CARA Negative Normal NEGATIVE [facility] Comment on above: Performed By: #### V ITB12 #### [facility] [address] [place] [address] Dr. Jovanna Magana CUT-OFFS SEE BELOW Normal [facility] Comment on above: Result Comment: AMP [...] ng/mL Performed By: #### V ITB12 #### [facility] [address] [place] [address] Dr. Jovanna Magana DRUG CUT HEADER DRUG CLASS TEST SYST EM CUT-OFF CONCENTRATIONS ARE FOLLOWS: Normal [facility] Comment on above: Performed By: #### V ITB12 #### [facility] [address] [place] [address] Dr. Jovanna Magana mAMP Negative Normal NEGATIVE [facility] Comment on above: Performed By: #### V ITB12 #### [facility] [address] [place] [address] Dr. Jovanna Magana MTD Negative Normal NEGATIVE [facility] Comment on above: Performed By: #### V ITB12 #### [facility] [address] [place] [address] Dr. Jovanna Magana OPI Positive Abnormal NEGATIVE [facility] Comment on above: Performed By: #### V ITB12 #### [facility] [address] [place] [address] Dr. Jovanna Magana OXY Negative Normal NEGATIVE [facility] Comment on above: Performed By: #### V ITB12 #### [facility] [address] [place] [address] Dr. Jovanna Magana PCP Negative Normal NEGATIVE [facility] Comment on above: Performed By: #### V ITB12 #### [facility] [address] [place] [address] Dr. Jovanna Magana PPX Negative Normal NEGATIVE [facility] Comment on above: Performed By: #### V ITB12 #### [facility] [address] [place] [address] Dr. Jovanna Magana TCA Negative Normal NEGATIVE [facility] Comment on above: Performed By: #### V ITB12 #### [facility] [address] [place] [address] Dr. Jovanna Magana THC Positive Abnormal NEGATIVE [facility] Comment on above: Performed By: #### V ITB12 #### [facility] [address] [place] [address] Dr. Jovanna Magana CBC AUTO DIFFon 10-08-2022 BASO # 0.0 103/ul Normal 0.0-0.1 [facility] Comment on above: Performed By: #### C BC #### [facility] [address] [place] [address] Dr. Jovanna Magana Basophils/100 WBC (Bld) 0.4 % Normal 0.2-2.0 [facility] Comment on above: Performed By: #### C BC #### [facility] [address] [place] [address] Dr. Jovanna Magana EO # 0.1 103/ul Normal 0.0-0.7 [facility] Comment on above: Performed By: #### C BC #### [facility] [address] [place] [address] Dr. Jovanna Magana Eosinophils/100 WBC (Bld) 1.3 % Normal 0.9-7.0 [facility] Comment on above: Performed By: #### C BC #### [facility] [address] [place] [address] Dr. Jovanna Magana Erythrocyte distribution width (RBC) [Ratio] 12.0 % Normal 11.0-15.0 [facility] Comment on above: Performed By: #### C BC #### [facility] [address] [place] [address] Dr. Jovanna Magana Hematocrit (Bld) [Volume fraction] 37.8 % Normal 36.0-48.0 [facility] Comment on above: Performed By: #### C BC #### [facility] [address] [place] [address] Dr. Jovanna Magana Hemoglobin (Bld) [Mass/Vol] 12.8 g/dL Normal 12.0-16.0 [facility] Comment on above: Performed By: #### C BC #### [facility] [address] [place] [address] Dr. Jovanna Magana IG # 0.02 10e3/ul Normal 0.00-0.03 [facility] Comment on above: Performed By: #### C BC #### [facility] [address] [place] [address] Dr. Jovanna Magana IG % 0.2 % Normal 0.0-0.5 [facility] Comment on above: Performed By: #### C BC #### [facility] [address] [place] [address] Dr. Jovanna Magana LYMPH # 3.5 103/ul Normal 1.2-3.8 [facility] Comment on above: Performed By: #### C BC #### [facility] [address] [place] [address] Dr. Jovanna Magana Lymphocytes/100 WBC (Bld) 37.9 % Normal 20.5-60.0 [facility] Comment on above: Performed By: #### C BC #### [facility] [address] [place] [address] Dr. Jovanna Magana MANUAL DIFF REQ NO Normal [facility] Comment on above: Performed By: #### C BC #### [facility] [address] [place] [address] Dr. Jovanna Magana MCH (RBC) [Entitic mass] 31.7 pg Normal 26.7-34.0 [facility] Comment on above: Performed By: #### C BC #### [facility] [address] [place] [address] Dr. Jovanna Magana MCHC (RBC) [Mass/Vol] 33.9 g/dL Normal 29.9-35.2 [facility] Comment on above: Performed By: #### C BC #### [facility] [address] [place] [address] Dr. Jovanna Magana MCV (RBC) [Entitic vol] 93.6 fL Normal 81.0-99.0 [facility] Comment on above: Performed By: #### C BC #### [facility] [address] [place] [address] Dr. Jovanna Magana MONO # 0.5 103/ul Normal 0.3-0.8 [facility] Comment on above: Performed By: #### C BC #### [facility] [address] [place] [address] Dr. Jovanna Magana Monocytes/100 WBC (Bld) 4.8 % Normal 1.7-12.0 [facility] Comment on above: Performed By: #### C BC #### [facility] [address] [place] [address] Dr. Jovanna Magana NEUT # 5.1 103/ul Normal 1.4-6.5 [facility] Comment on above: Performed By: #### C BC #### [facility] [address] [place] [address] Dr. Jovanna Magana Neutrophils/100 WBC (Bld) 55.4 % Normal 43.0-75.0 [facility] Comment on above: Performed By: #### C BC #### [facility] [address] [place] [address] Dr. Jovanna Magana Platelet mean volume (Bld) [Entitic vol] 10.2 fL Normal 9.5-13.5 [facility] Comment on above: Performed By: #### C BC #### [facility] [address] [address] [address] Jovanna Magana PLT 181 103/ul Normal 150-450 [facility] Comment on above: Performed By: #### C BC #### [facility] [address] [address] [address] Jovanna aMgana RBC 4.04 106/ul Critically low 4.20-5.40 [facility] Comment on above: Performed By: #### C BC #### [facility] [address] [address] [address] Jovanna Magana WBC 9.3 103/ul Normal 4.0-11.0 [facility] Comment on above: Performed By: #### C BC #### [facility] [address] [address] [address] Jovanna Magana CRPon 10-08-2022 CRP [Mass/Vol] mg/L Normal <=1.0 [facility] Comment on above: Performed By: #### B MP, CRP ####[facility] [address] [address]Dr. Jovanna Magana LACTATE/LACTIC ACIDon 2021 Lactate [Moles/Vol] 0.4 mmol/L Normal 0.4-1.9 [facility] Comment on above: Performed By: #### L ACT #### [facility] [address] [address] [address] Jovanna Magana PROF CHEM 8 (BAS METB)on Anion gap [Moles/Vol] 12.6 mmol/L Normal [facility] Comment on above: Performed By: #### B MP, CRP #### [facility] [address] [address] [address] Jovanna Magana Calcium [Mass/Vol] 8.6 mg/dL Normal 8.5-10.1 [facility] Comment on above: Performed By: #### B MP, CRP #### [facility] [address] [address] [address] Jovanna Magana Chloride [Moles/Vol] 104 mmol/L Normal 98-107 [facility] Comment on above: Performed By: #### B MP, CRP #### [facility] [address] [address] [address] Jovanna Magana CO2 [Moles/Vol] 26.8 mmol/L Normal 21.0-32.0 [facility] Comment on above: Performed By: #### B MP, CRP #### [facility] [address] [address] [address] Jovanna Magana Creatinine [Mass/Vol] 0.52 mg/dL Critically low 0.55-1.02 [facility] Comment on above: Performed By: #### B MP, CRP #### [facility] [address] [address] [address] Jovanna Magana EGFR-AF CITIZEN [place] >60 Normal >=60 [facility] Comment on above: Performed By: #### B MP, CRP #### [facility] [address] [address] [address] Jovanna Magana EGFR-NON AF CITIZEN OF [place] >60 Normal >=60 [facility] Comment on above: Performed By: #### B MP, CRP #### [facility] [address] [address] [address] Jovanna Magana Glucose [Mass/Vol] 93 mg/dL Normal 74-106 [facility] Comment on above: Performed By: #### B MP, CRP #### [facility] [address] [address] [address] Jovanna Magana Potassium [Moles/Vol] 3.4 mmol/L Critically low 3.5-5.1 [facility] Comment on above: Performed By: #### B MP, CRP #### [facility] [address] [address] [address] Jovanna Magana Sodium [Moles/Vol] 140 mmol/L Normal 136-145 [facility] Comment on above: Performed By: #### B MP, CRP #### [facility] [address] [address] [address] Jovanna Magana Urea nitrogen [Mass/Vol] 11.0 mg/dL Normal 7.0-18.0 [facility] Comment on above: Performed By: #### B MP, CRP #### [facility] [address] [address] [address] Jovanna Magana Urea nitrogen/Creatinine [Mass ratio] 21.2 mg/mg Normal [facility] Comment on above: Performed By: #### B MP, CRP #### [facility] [id number] Jovanna Magana [facility] 17 mm/hr Normal <=20 [facility] Comment on above: Performed By: #### S EDR ####[facility] [address] [address]Dr. Jovanna Magana Physician Referralon 022 Physician Referral [phone] [id number] D:127 Normal [facility] Physician Referral [phone] [id number] D:127 Normal [facility] PROF 14(COMP METB)on 022 Albumin [Mass/Vol] 3.4 g/dL Normal 3.4-5.0 [facility] Comment on above: Performed By: #### V ITB12 #### [facility] [address] [address] [address] Jovanna Magana Albumin/Globulin [Mass ratio] 1.1 {ratio} Normal [facility] Comment on above: Performed By: #### V ITB12 #### [facility] [address] [address] [address] Jovanna Magana ALP [Catalytic activity/Vol] 88 U/L Normal 46-116 [facility] Comment on above: Performed By: #### V ITB12 #### [facility] [address] [address] [address] Jovanna Magana ALT [Catalytic activity/Vol] 11 U/L Critically low 14-59 [facility] Comment on above: Performed By: #### V ITB12 #### [facility] [address] [address] [address] Jovanna Magana Anion gap [Moles/Vol] 8.7 mmol/L Normal [facility] Comment on above: Performed By: #### V ITB12 #### [facility] [address] [place] [address] Dr. Jovanna Magana AST [Catalytic activity/Vol] 13 U/L Critically low 15-37 [facility] Comment on above: Performed By: #### V ITB12 #### [facility] [address] [place] [address] Dr. Jovanna Magana Bilirubin [Mass/Vol] 0.6 mg/dL Normal 0.2-1.0 [facility] Comment on above: Performed By: #### V ITB12 #### [facility] [address] [place] [address] Dr. Jovanna Magana Calcium [Mass/Vol] 8.7 mg/dL Normal 8.5-10.1 [facility] Comment on above: Performed By: #### V ITB12 #### [facility] [address] [place] [address] Dr. Jovanna Magana Chloride [Moles/Vol] 104 mmol/L Normal 98-107 [facility] Comment on above: Performed By: #### V ITB12 #### [facility] [address] [place] [address] Dr. Jovanna Magana CO2 [Moles/Vol] 31.9 mmol/L Normal 21.0-32.0 [facility] Comment on above: Performed By: #### V ITB12 #### [facility] [address] [place] [address] Dr. Jovanna Magana Creatinine [Mass/Vol] 0.65 mg/dL Normal 0.55-1.02 [facility] Comment on above: Performed By: #### V ITB12 #### [facility] [address] [place] [address] Dr. Jovanna Magana EGFR-AF CITIZEN [place] >60 Normal >=60 [facility] Comment on above: Performed By: #### V ITB12 #### [facility] [address] [place] [address] Dr. Jovanna Magana EGFR-NON AF CITIZEN OF [place] >60 Normal >=60 [facility] Comment on above: Performed By: #### V ITB12 #### [facility] [address] [place] [address] Dr. Jovanna Magana Globulin (S) [Mass/Vol] 3.2 g/dL Normal [facility] Comment on above: Performed By: #### V ITB12 #### [facility] [address] [address] [address] Jovanna Magana Glucose [Mass/Vol] 91 mg/dL Normal 74-106 [facility] Comment on above: Performed By: #### V ITB12 #### [facility] [address] [place] [address] Dr. Jovanna Magana Potassium [Moles/Vol] 3.6 mmol/L Normal 3.5-5.1 [facility] Comment on above: Performed By: #### V ITB12 #### [facility] [address] [place] [address] Dr. Jovanna Magana Protein [Mass/Vol] 6.6 g/dL Normal 6.4-8.2 [facility] Comment on above: Performed By: #### V ITB12 #### [facility] [address] [place] [address] Dr. Jovanna Magana Sodium [Moles/Vol] 141 mmol/L Normal 136-145 [facility] Comment on above: Performed By: #### V ITB12 #### [facility] [address] [place] [address] Dr. Jovanna Magana Urea nitrogen [Mass/Vol] 4.0 mg/dL Critically low 7.0-18.0 [facility] Comment on above: Performed By: #### V ITB12 #### [facility] [address] [place] [address] Dr. Jovanna Magana Urea nitrogen/Creatinine [Mass ratio] 6.2 mg/mg Normal [facility] Comment on above: Performed By: #### V ITB12 #### [facility] [address] [place] [address] Dr. Jovanna Magana HEPATITIS C AB CASCADE TO QU ANT PCR GENOon 09-13-2022 HCV AB <0.1 Normal 0.0-0.9 [facility] Comment on above: Performed By: #### H EPCASC #### [facility] [address] [place] [address] Dr. Jovanna Magana Interpretation: Comment Normal [facility] Comment on above: Result Comment: Nega tive Not infected with HCV, unless recent infection is suspected or other evidence exists to indicate HCV infection. Performed By: #### H EPCASC #### [facility] [address] [place] [address] Dr. Jovanna Magana CBC AUTO DIFFon 09-12-2022 BASO # 0.0 103/ul Normal 0.0-0.1 [facility] Comment on above: Performed By: #### C BC #### [facility] [address] [place] [address] Dr. Jovanna Magana Basophils/100 WBC (Bld) 0.3 % Normal 0.2-2.0 [facility] Comment on above: Performed By: #### C BC #### [facility] [address] [place] [address] Dr. Jovanna Magana EO # 0.1 103/ul Normal 0.0-0.7 [facility] Comment on above: Performed By: #### C BC #### [facility] [address] [place] [address] Dr. Jovanna Magana Eosinophils/100 WBC (Bld) 0.7 % Critically low 0.9-7.0 [facility] Comment on above: Performed By: #### C BC #### [facility] [address] [place] [address] Dr. Jovanna Magana Erythrocyte distribution width (RBC) [Ratio] 12.3 % Normal 11.0-15.0 [facility] Comment on above: Performed By: #### C BC #### [facility] [address] [place] [address] Dr. Jovanna Magana Hematocrit (Bld) [Volume fraction] 40.2 % Normal 36.0-48.0 [facility] Comment on above: Performed By: #### C BC #### [facility] [address] [place] [address] Dr. Jovanna Magana Hemoglobin (Bld) [Mass/Vol] 13.4 g/dL Normal 12.0-16.0 [facility] Comment on above: Performed By: #### C BC #### [facility] [address] [place] [address] Dr. Jovanna Magana IG # 0.02 10e3/ul Normal 0.00-0.03 [facility] Comment on above: Performed By: #### C BC #### [facility] [address] [place] [address] Dr. Jovanna Magana IG % 0.3 % Normal 0.0-0.5 [facility] Comment on above: Performed By: #### C BC #### [facility] [address] [place] [address] Dr. Jovanna Magana LYMPH # 2.2 103/ul Normal 1.2-3.8 [facility] Comment on above: Performed By: #### C BC #### [facility] [address] [place] [address] Dr. Jovanna Magana Lymphocytes/100 WBC (Bld) 31.9 % Normal 20.5-60.0 [facility] Comment on above: Performed By: #### C BC #### [facility] [address] [place] [address] Dr. Jovanna Magana MANUAL DIFF REQ NO Normal [facility] Comment on above: Performed By: #### C BC #### [facility] [address] [place] [address] Dr. Jovanna Magana MCH (RBC) [Entitic mass] 31.8 pg Normal 26.7-34.0 [facility] Comment on above: Performed By: #### C BC #### [facility] [address] [place] [address] Dr. Jovanna Magana MCHC (RBC) [Mass/Vol] 33.3 g/dL Normal 29.9-35.2 [facility] Comment on above: Performed By: #### C BC #### [facility] [address] [address] [address] Jovanna Magana MCV (RBC) [Entitic vol] 95.5 fL Normal 81.0-99.0 [facility] Comment on above: Performed By: #### C BC #### [facility] [address] [address] [address] Jovanna Magana MONO # 0.3 103/ul Normal 0.3-0.8 [facility] Comment on above: Performed By: #### C BC #### [facility] [address] [place] [address] Dr. Jovanna Magana Monocytes/100 WBC (Bld) 4.4 % Normal 1.7-12.0 [facility] Comment on above: Performed By: #### C BC #### [facility] [address] [place] [address] Dr. Jovanna Magana NEUT # 4.4 103/ul Normal 1.4-6.5 [facility] Comment on above: Performed By: #### C BC #### [facility] [address] [place] [address] Dr. Jovanna Magana Neutrophils/100 WBC (Bld) 62.4 % Normal 43.0-75.0 [facility] Comment on above: Performed By: #### C BC #### [facility] [address] [place] [address] Dr. Jovanna Magana Platelet mean volume (Bld) [Entitic vol] 10.9 fL Normal 9.5-13.5 [facility] Comment on above: Performed By: #### C BC #### [facility] [address] [place] [address] Dr. Jovanna Magana PLT 179 103/ul Normal 150-450 [facility] Comment on above: Performed By: #### C BC #### [facility] [address] [place] [address] Dr. Jovanna Magana RBC 4.21 106/ul Normal 4.20-5.40 [facility] Comment on above: Performed By: #### C BC #### [facility] [address] [place] [address] Dr. Jovanna Magana WBC 7.0 103/ul Normal 4.0-11.0 [facility] Comment on above: Performed By: #### C BC #### [facility] [address] [address] [address] Jovanna Magana GLYCOHEMOGLOBIN A1Con 2021 ADA RECOMMENDATION SEE BELOW Normal [facility] Comment on above: Result Comment: ADA RECOMMENDED LIMIT 4.0 - 6.0 ADA THERAPEUTIC TARGET < 7.0 ACTION SUGGESTED > 7.0 Performed By: #### L ACT #### [facility] [address] [address] [address] Jovanna Magana Glucose [Mass/Vol] 105 mg/dL Normal [facility] Comment on above: Performed By: #### L ACT #### [facility] [address] [address] [address] Jovanna Magana HbA1c (Bld) [Mass fraction] 5.3 % Normal 4.5-6.2 [facility] Comment on above: Performed By: #### L ACT #### [facility] [address] [address] [address] Jovanna Magana LIPID PROFILEon 09-12-2022 CHOL-HDL RATIO NORM SEE BELOW Normal [facility] Comment on above: Result Comment: 3.3 - 4.4 LOW RISK 4.4 - 7.1 AVERAGE RISK 7.1 - 11.0 MODERATE RISK >11.0 HIGH RISK Performed By: #### C MP, LIPID #### [facility] [address] [place] [address] Dr. Jovanna Magana Cholesterol [Mass/Vol] 135 mg/dL Normal <=200 [facility] Comment on above: Performed By: #### C MP, LIPID #### [facility] [address] [address] [address] Jovanna Magana Cholesterol in HDL [Mass/Vol] 35 mg/dL Critically low 40-60 [facility] Comment on above: Performed By: #### C MP, LIPID #### [facility] [address] [address] [address] Jovanna Magana Cholesterol in LDL [Mass/Vol] 84.8 mg/dL Normal [facility] Comment on above: Performed By: #### C MP, LIPID #### [facility] [address] [place] [address] Dr. Jovanna Magana Cholesterol.total/Ch olesterol in HDL [Mass ratio] 3.9 {ratio} Normal [facility] Comment on above: Performed By: #### C MP, LIPID #### [facility] [address] [place] [address] Dr. Jovanna Magana HDL NORMAL > or = 60 mg/dl - LO W CARDIOVASCULAR RISK <40 mg/dl - HIGH CARDIOVASCULAR RISK Normal [facility] Comment on above: Performed By: #### C MP, LIPID #### [facility] [address] [place] [address] Dr. Jovanna Magana LDL CALC NORMAL SEE BELOW Normal [facility] Comment on above: Result Comment: <100 mg/dl OPTIMAL 100 - 129 mg/dl NEAR OR ABOVE OPTIMAL 130 - 159 mg/dl BORDERLINE HIGH 160 - 189 mg/dl HIGH >190 mg/dl VERY HIGH Performed By: #### C MP, LIPID #### [facility] [address] [place] [address] Dr. Jovanna Magana Triglyceride [Mass/Vol] 76 mg/dL Normal <=150 [facility] Comment on above: Performed By: #### C MP, LIPID #### [facility] [address] [place] [address] Dr. Jovanna Magana VLDL CALC 15.2 mg/dL Normal [facility] Comment on above: Performed By: #### C MP, LIPID #### [facility] [address] [place] [address] Dr. Jovanna Magana PROF 14(COMP METB)on 022 Albumin [Mass/Vol] 3.5 g/dL Normal 3.4-5.0 [facility] Comment on above: Performed By: #### C MP, LIPID #### [facility] [address] [place] [address] Dr. Jovanna Magana Albumin/Globulin [Mass ratio] 1.1 {ratio} Normal [facility] Comment on above: Performed By: #### C MP, LIPID #### [facility] [address] [address] [address] Jovanna Magana ALP [Catalytic activity/Vol] 79 U/L Normal 46-116 [facility] Comment on above: Performed By: #### C MP, LIPID #### [facility] [address] [address] [address] Jovanna Magana ALT [Catalytic activity/Vol] 15 U/L Normal 14-59 [facility] Comment on above: Performed By: #### C MP, LIPID #### [facility] [address] [address] [address] Jovanna Magana Anion gap [Moles/Vol] 4.9 mmol/L Normal [facility] Comment on above: Performed By: #### C MP, LIPID #### [facility] [address] [address] [address] Jovanna Magana AST [Catalytic activity/Vol] 17 U/L Normal 15-37 [facility] Comment on above: Performed By: #### C MP, LIPID #### [facility] [address] [address] [address] Jovanna Magana Bilirubin [Mass/Vol] 0.4 mg/dL Normal 0.2-1.0 [facility] Comment on above: Performed By: #### C MP, LIPID #### [facility] [address] [address] [address] Jovanna Magana Calcium [Mass/Vol] 8.7 mg/dL Normal 8.5-10.1 [facility] Comment on above: Performed By: #### C MP, LIPID #### [facility] [address] [address] [address] Jovanna Magana Chloride [Moles/Vol] 103 mmol/L Normal 98-107 [facility] Comment on above: Performed By: #### C MP, LIPID #### [facility] [address] [address] [address] Jovanna Magana CO2 [Moles/Vol] 35.8 mmol/L Critically high 21.0-32.0 [facility] Comment on above: Performed By: #### C MP, LIPID #### [facility] [address] [address] [address] Jovanna Magana Creatinine [Mass/Vol] 0.70 mg/dL Normal 0.55-1.02 [facility] Comment on above: Performed By: #### C MP, LIPID #### [facility] [address] [address] [address] Jovanna Magana EGFR-AF CITIZEN OF [place] >60 Normal >=60 [facility] Comment on above: Performed By: #### C MP, LIPID #### [facility] [address] [address] [address] Jovanna Magana EGFR-NON AF CITIZEN OF [place] >60 Normal >=60 [facility] Comment on above: Performed By: #### C MP, LIPID #### [facility] [address] [address] [address] Jovanna Magana Globulin (S) [Mass/Vol] 3.2 g/dL Normal [facility] Comment on above: Performed By: #### C MP, LIPID #### [facility] [address] [address] [address] Jovanna Magana Glucose [Mass/Vol] 86 mg/dL Normal 74-106 [facility] Comment on above: Performed By: #### C MP, LIPID #### [facility] [address] [address] [address] Jovanna Magana Potassium [Moles/Vol] 2.7 mmol/L Critically low 3.5-5.1 [facility] Comment on above: Performed By: #### C MP, LIPID #### [facility] [address] [address] [address] Jovanna Magana Protein [Mass/Vol] 6.7 g/dL Normal 6.4-8.2 [facility] Comment on above: Performed By: #### C MP, LIPID #### [facility] [address] [address] [address] Jovanna Magana Sodium [Moles/Vol] 141 mmol/L Normal 136-145 [facility] Comment on above: Performed By: #### C MP, LIPID #### [facility] [address] [address] [address] Jovanna Magana Urea nitrogen [Mass/Vol] 6.0 mg/dL Critically low 7.0-18.0 [facility] Comment on above: Performed By: #### C MP, LIPID #### [facility] [address] [address] [address] Jovanna Magana Urea nitrogen/Creatinine [Mass ratio] 8.6 mg/mg Normal [facility] Comment on above: Performed By: #### C MP, LIPID #### [facility] [id number] Jovanna Magana US THYROIDon 09-12-2022 US THYROID EXAMINATION: US [...] FRANCES AGUSTIN Date: 2022-09-12 11:52 Normal [facility] VITAMIN B12on 09-12-2022 Cobalamin (Vitamin B12) [Mass/Vol] 280.0 pg/mL Normal 193.0-986.0 [facility] Comment on above: Performed By: #### V ITB12 #### [facility] [address] [address] CSPINE WO CONon CT CSPINE WO CON EXAMINATION: CT CSPI [...] MAN VILLALOBOS Date: 2022-08-24 18:11 Normal [facility] CT NECK ST W CONon [...] WOO PAIGE Date: 2022-08-16 23:10 Normal [facility] CBC AUTO DIFFon 08-16-2022 BASO # 0.0 103/ul Normal 0.0-0.1 [facility] Comment on above: Performed By: #### C BC ####[facility] [address] [id number]. Jovanna Magana Basophils/100 WBC (Bld) 0.2 % Normal 0.2-2.0 [facility] Comment on above: Performed By: #### C BC ####[facility] [address] [place], [place] [id number]. Jovanna Magana EO # 0.1 103/ul Normal 0.0-0.7 [facility] Comment on above: Performed By: #### C BC ####[facility] [address] [address]Dr. Jovanna Magana Eosinophils/100 WBC (Bld) 0.7 % Critically low 0.9-7.0 [facility] Comment on above: Performed By: #### C BC ####[facility] [address] [place], [place] [address]Dr. Jovanna Magana Erythrocyte distribution width (RBC) [Ratio] 12.1 % Normal 11.0-15.0 [facility] Comment on above: Performed By: #### C BC ####[facility] [address] [place], [place] [address]Dr. Jovanna Magana Hematocrit (Bld) [Volume fraction] 38.8 % Normal 36.0-48.0 [facility] Comment on above: Performed By: #### C BC ####[facility] [address] [place], [place] [address]Dr. Jovanna Magana Hemoglobin (Bld) [Mass/Vol] 12.8 g/dL Normal 12.0-16.0 [facility] Comment on above: Performed By: #### C BC ####[facility] [address] [place], [place] [address]Dr. Jovanna Magana IG # 0.06 10e3/ul Critically high 0.00-0.03 [facility] Comment on above: Performed By: #### C BC ####[facility] [address] [place], [place] [address]Dr. Jovanna Magana IG % 0.4 % Normal 0.0-0.5 [facility] Comment on above: Performed By: #### C BC ####[facility] [address] [id number]. Jovanna Magana LYMPH # 2.5 103/ul Normal 1.2-3.8 [facility] Comment on above: Performed By: #### C BC ####[facility] [address] [id number]. Jovanna Magana Lymphocytes/100 WBC (Bld) 18.1 % Critically low 20.5-60.0 [facility] Comment on above: Performed By: #### C BC ####[facility] [address] [address]Dr. Jovanna Magana MANUAL DIFF REQ NO Normal [facility] Comment on above: Performed By: #### C BC ####[facility] [address] [address]Dr. Jovanna Magana MCH (RBC) [Entitic mass] 32.0 pg Normal 26.7-34.0 [facility] Comment on above: Performed By: #### C BC ####[facility] [address] [id number]. Jovanna Magana MCHC (RBC) [Mass/Vol] 33.0 g/dL Normal 29.9-35.2 [facility] Comment on above: Performed By: #### C BC ####[facility] [address] [id number] Magana MCV (RBC) [Entitic vol] 97.0 fL Normal 81.0-99.0 [facility] Comment on above: Performed By: #### C BC ####[facility] [address] [id number] Magana MONO # 0.6 103/ul Normal 0.3-0.8 [facility] Comment on above: Performed By: #### C BC ####[facility] [address] [id number]. Jovanna Magana Monocytes/100 WBC (Bld) 4.5 % Normal 1.7-12.0 [facility] Comment on above: Performed By: #### C BC ####[facility] [address] [id number] Magana NEUT # 10.4 103/ul Critically high 1.4-6.5 [facility] Comment on above: Performed By: #### C BC ####[facility] [address] [id number] Magana Neutrophils/100 WBC (Bld) 76.1 % Critically high 43.0-75.0 [facility] Comment on above: Performed By: #### C BC ####[facility] [address] [id number]. Jovanna Magana Platelet mean volume (Bld) [Entitic vol] 10.9 fL Normal 9.5-13.5 [facility] Comment on above: Performed By: #### C BC ####[facility] [address] [id number]. Jovanna aMgana PLT 193 103/ul Normal 150-450 [facility] Comment on above: Performed By: #### C BC ####[facility] [address] [id number]. Jovanna Magana RBC 4.00 106/ul Critically low 4.20-5.40 [facility] Comment on above: Performed By: #### C BC ####[facility] [address] [id number] Magana WBC 13.7 103/ul Critically high 4.0-11.0 [facility] Comment on above: Performed By: #### C BC ####[facility] [address] [id number]. Jovanna Magana FREE T4on 08-16-2022 Free T4 [Mass/Vol] 0.68 ng/dL Critically low 0.76-1.46 [facility] Comment on above: Performed By: #### L ACT #### [facility] [address] [place], [place] [address] Dr. Jovanna Magana HS-CRPon 08-16-2022 HS-CRP 1.04 mg/L Normal <=3.00 [facility] Comment on above: Performed By: #### L ACT #### [facility] [address] [place] [address] Dr. Jovanna Magana PROF 14(COMP METB)on 022 Albumin [Mass/Vol] 3.5 g/dL Normal 3.4-5.0 [facility] Comment on above: Performed By: #### V ITB12 #### [facility] [address] [place] [address] Dr. Jovanna Maagna Albumin/Globulin [Mass ratio] 1.1 {ratio} Normal [facility] Comment on above: Performed By: #### V ITB12 #### [facility] [address] [place] [address] Dr. Jovanna Magana ALP [Catalytic activity/Vol] 82 U/L Normal 46-116 [facility] Comment on above: Performed By: #### V ITB12 #### [facility] [address] [place] [address] Dr. Jovanna Magana ALT [Catalytic activity/Vol] 17 U/L Normal 14-59 [facility] Comment on above: Performed By: #### V ITB12 #### [facility] [address] [place] [address] Dr. Jovanna Magana Anion gap [Moles/Vol] 9.6 mmol/L Normal [facility] Comment on above: Performed By: #### V ITB12 #### [facility] [address] [place] [address] Dr. Jovanna Magana AST [Catalytic activity/Vol] 17 U/L Normal 15-37 [facility] Comment on above: Performed By: #### V ITB12 #### [facility] [address] [place] [address] Dr. Jovanna Magana Bilirubin [Mass/Vol] 0.4 mg/dL Normal 0.2-1.0 [facility] Comment on above: Performed By: #### V ITB12 #### [facility] [address] [place] [address] Dr. Jovanna Magana Calcium [Mass/Vol] 8.7 mg/dL Normal 8.5-10.1 [facility] Comment on above: Performed By: #### V ITB12 #### [facility] [address] [place] [address] Dr. Jovanna Magana Chloride [Moles/Vol] 105 mmol/L Normal 98-107 [facility] Comment on above: Performed By: #### V ITB12 #### [facility] [address] [place] [address] Dr. Jovanna Magana CO2 [Moles/Vol] 30.9 mmol/L Normal 21.0-32.0 [facility] Comment on above: Performed By: #### V ITB12 #### [facility] [address] [place] [address] Dr. Jovanna Magana Creatinine [Mass/Vol] 0.69 mg/dL Normal 0.55-1.02 [facility] Comment on above: Performed By: #### V ITB12 #### [facility] [address] [place] [address] Dr. Jovanna Mgaana EGFR-AF CITIZEN [place] >60 Normal >=60 [facility] Comment on above: Performed By: #### V ITB12 #### [facility] [address] [place] [address] Dr. Jovanna Magana EGFR-NON AF CITIZEN OF [place] >60 Normal >=60 [facility] Comment on above: Performed By: #### V ITB12 #### [facility] [address] [place] [address] Dr. Jovanna Magana Globulin (S) [Mass/Vol] 3.1 g/dL Normal [facility] Comment on above: Performed By: #### V ITB12 #### [facility] [address] [place] [address] Dr. Jovanna Magana Glucose [Mass/Vol] 84 mg/dL Normal 74-106 [facility] Comment on above: Performed By: #### V ITB12 #### [facility] [address] [place] [address] Dr. Jovanna Magana Potassium [Moles/Vol] 3.5 mmol/L Normal 3.5-5.1 [facility] Comment on above: Performed By: #### V ITB12 #### [facility] [address] [place] [address] Dr. Jovanna Magana Protein [Mass/Vol] 6.6 g/dL Normal 6.4-8.2 [facility] Comment on above: Performed By: #### V ITB12 #### [facility] [address] [place] [address] Dr. Jovanna Magana Sodium [Moles/Vol] 142 mmol/L Normal 136-145 [facility] Comment on above: Performed By: #### V ITB12 #### [facility] [address] [place] [address] Dr. Jovanna Magana Urea nitrogen [Mass/Vol] 7.0 mg/dL Normal 7.0-18.0 [facility] Comment on above: Performed By: #### V ITB12 #### [facility] [address] [place] [address] Dr. Jovanna Magana Urea nitrogen/Creatinine [Mass ratio] 10.1 mg/mg Normal [facility] Comment on above: Performed By: #### V ITB12 #### [facility] [address] [place] [address] Dr. Jovanna Magana PROF CHEM 8 (BAS METB)on Anion gap [Moles/Vol] 8.5 mmol/L Normal [facility] Comment on above: Performed By: #### L ACT #### [facility] [address] [place] [address] Dr. Jovanna Magana Calcium [Mass/Vol] 8.3 mg/dL Critically low 8.5-10.1 [facility] Comment on above: Performed By: #### L ACT #### [facility] [address] [place] [address] Dr. Jovanna Magana Chloride [Moles/Vol] 105 mmol/L Normal 98-107 [facility] Comment on above: Performed By: #### L ACT #### [facility] [address] [place] [address] Dr. Jovanna Magana CO2 [Moles/Vol] 28.4 mmol/L Normal 21.0-32.0 [facility] Comment on above: Performed By: #### L ACT #### [facility] [address] [address] [address] Jovanna Magana Creatinine [Mass/Vol] 0.72 mg/dL Normal 0.55-1.02 [facility] Comment on above: Performed By: #### L ACT #### [facility] [address] [address] [address] Jovanna Magana EGFR-AF CITIZEN OF [place] >60 Normal >=60 [facility] Comment on above: Performed By: #### L ACT #### [facility] [address] [place] [address] Dr. Jovanna Magana EGFR-NON AF CITIZEN OF [place] >60 Normal >=60 [facility] Comment on above: Performed By: #### L ACT #### [facility] [address] [place] [address] Dr. Jovanna Magana Glucose [Mass/Vol] 242 mg/dL Critically high 74-106 [facility] Comment on above: Performed By: #### L ACT #### [facility] [address] [place] [address] Dr. Jovanna Magana Potassium [Moles/Vol] 2.9 mmol/L Critically low 3.5-5.1 [facility] Comment on above: Performed By: #### L ACT #### [facility] [address] [place] [address] Dr. Jovanna Magana Sodium [Moles/Vol] 138 mmol/L Normal 136-145 [facility] Comment on above: Performed By: #### L ACT #### [facility] [address] [address] [address] Jovanna Magana Urea nitrogen [Mass/Vol] 5.0 mg/dL Critically low 7.0-18.0 [facility] Comment on above: Performed By: #### L ACT #### [facility] [address] [address] [address] Jovanna Magana Urea nitrogen/Creatinine [Mass ratio] 6.9 mg/mg Normal [facility] Comment on above: Performed By: #### L ACT #### [facility] [address] [address] [address] Jovanna Magana TSHon 08-16-2022 TSH 4.977 uIU/mL Critically high 0.358-3.740 [facility] Comment on above: Performed By: #### V ITB12 #### [facility] [id number] Jovanna Magana CT ABD/PELVIS WO CONon 05-02 CT ABD/PELVIS [...] Ayaka LEON Date: 2022-05-02 03:06 Normal [facility] DRUG SCREEN RAPID (URINE)on 05-02-2022 AMP Negative Normal NEGATIVE [facility] Comment on above: Performed By: #### L ACT #### [facility] [id number] Jovanna Magana BAR Negative Normal NEGATIVE [facility] Comment on above: Performed By: #### L ACT #### [facility] [address] [place] [address] Dr. Jovanna Magana BUP Negative Normal NEGATIVE [facility] Comment on above: Performed By: #### L ACT #### [facility] [address] [place] [address] Dr. Jovanna Magana BZO Negative Normal NEGATIVE [facility] Comment on above: Performed By: #### L ACT #### [facility] [address] [place] [address] Dr. Jovanna Magana CARA Negative Normal NEGATIVE [facility] Comment on above: Performed By: #### L ACT #### [facility] [address] [place] [address] Dr. Jovanna Magana CUT-OFFS SEE BELOW Normal [facility] Comment on above: Result Comment: AMP [...] ng/mL Performed By: #### L ACT #### [facility] [address] [place] [address] Dr. Jovanna Magana DRUG CUT HEADER DRUG CLASS TEST SYST EM CUT-OFF CONCENTRATIONS ARE FOLLOWS: Normal [facility] Comment on above: Performed By: #### L ACT #### [facility] [address] [place] [address] Dr. Jovanna Magana mAMP Negative Normal NEGATIVE [facility] Comment on above: Performed By: #### L ACT #### [facility] [address] [place] [address] Dr. Jovanna Magana MTD Negative Normal NEGATIVE [facility] Comment on above: Performed By: #### L ACT #### [facility] [address] [address] [address] Jovanna Magana OPI Positive Abnormal NEGATIVE [facility] Comment on above: Performed By: #### L ACT #### [facility] [address] [address] [address] Jovanna Magana OXY Negative Normal NEGATIVE [facility] Comment on above: Performed By: #### L ACT #### [facility] [address] [address] [address] Jovanna Magana PCP Negative Normal NEGATIVE [facility] Comment on above: Performed By: #### L ACT #### [facility] [address] [place] [address] Dr. Jovanna Magana PPX Negative Normal NEGATIVE [facility] Comment on above: Performed By: #### L ACT #### [facility] [address] [place] [address] Dr. Jovanna Magana TCA Negative Normal NEGATIVE [facility] Comment on above: Performed By: #### L ACT #### [facility] [address] [place] [address] Dr. Jovanna Magana THC Positive Abnormal NEGATIVE [facility] Comment on above: Performed By: #### L ACT #### [facility] [address] [place] [address] Dr. Jovanna Magana ER URINE PROFILEon 2 Bilirubin Ql (U) Negative Normal NEGATIVE [facility] Comment on above: Performed By: #### L ACT #### [facility] [address] [place] [address] Dr. Jovanna Magana Clarity (U) CLEAR Normal CLEAR [facility] Comment on above: Performed By: #### L ACT #### [facility] [address] [place] [address] Dr. Jovanna Magana Color (U) LT. YELLOW Normal YELLOW [facility] Comment on above: Performed By: #### L ACT #### [facility] [address] [place] [address] Dr. Jovanna Magana ERUAHD A micrscopic examination will be performed if indicated. Normal [facility] Comment on above: Performed By: #### L ACT #### [facility] [address] [address] [address] Jovanna Magana Glucose Ql (U) Negative Normal NEGATIVE [facility] Comment on above: Performed By: #### L ACT #### [facility] [address] [address] [address] Jovanna Magana Hemoglobin Ql (U) Negative Normal NEGATIVE [facility] Comment on above: Performed By: #### L ACT #### [facility] [address] [address] [address] Jovanna Magana Ketones Ql (U) Negative Normal NEGATIVE [facility] Comment on above: Performed By: #### L ACT #### [facility] [address] [place] [address] Dr. Jovanna Magana LEUKOCYTES Negative Normal NEGATIVE [facility] Comment on above: Performed By: #### L ACT #### [facility] [address] [place] [address] Dr. Jovanna Magana Nitrite Ql (U) Negative Normal NEGATIVE [facility] Comment on above: Performed By: #### L ACT #### [facility] [address] [place] [address] Dr. Jovanna Magana pH (U) 6.0 [pH] Normal 5-9 [facility] Comment on above: Performed By: #### L ACT #### [facility] [address] [place] [address] Dr. Jovanna Magana SPEC GRAVITY <=1.005 Abnormal 1.005-<=1.02 5 [facility] Comment on above: Performed By: #### L ACT #### [facility] [address] [place] [address] Dr. Jovanna Magana UA PROTEIN Negative Normal NEGATIVE/ TRACE [facility] Comment on above: Performed By: #### L ACT #### [facility] [address] [place] [address] Dr. Jovanna Magana UR MICRO IND NOT INDICATED Normal [facility] Comment on above: Performed By: #### L ACT #### [facility] [address] [place] [address] Dr. Jovanna Magana Urobilinogen Qn (U) 0.2 {Isabella'U}/dL Normal 0.2 - 1. 0 [facility] Comment on above: Performed By: #### L ACT #### [facility] [address] [place] [address] Dr. Jovanna Magana CBC AUTO DIFFon 04-20-2022 BASO # 0.0 103/ul Normal 0.0-0.1 [facility] Comment on above: Performed By: #### L ACT #### [facility] [address] [place] [address] Dr. Jovanna Magana Basophils/100 WBC (Bld) 0.1 % Critically low 0.2-2.0 [facility] Comment on above: Performed By: #### L ACT #### [facility] [address] [place] [address] Dr. Jovanna Magana EO # 0.0 103/ul Normal 0.0-0.7 [facility] Comment on above: Performed By: #### L ACT #### [facility] [address] [place] [address] Dr. Jovanna Magana Eosinophils/100 WBC (Bld) 0.1 % Critically low 0.9-7.0 [facility] Comment on above: Performed By: #### L ACT #### [facility] [address] [place] [address] Dr. Jovanna Magana Erythrocyte distribution width (RBC) [Ratio] 12.6 % Normal 11.0-15.0 [facility] Comment on above: Performed By: #### L ACT #### [facility] [address] [place] [address] Dr. Jovanna Magana Hematocrit (Bld) [Volume fraction] 38.8 % Normal 36.0-48.0 [facility] Comment on above: Performed By: #### L ACT #### [facility] [address] [place] [address] Dr. Jovanna Magana Hemoglobin (Bld) [Mass/Vol] 12.6 g/dL Normal 12.0-16.0 [facility] Comment on above: Performed By: #### L ACT #### [facility] [address] [address] [address] Jovanna Magana IG # 0.13 10e3/ul Critically high 0.00-0.03 [facility] Comment on above: Performed By: #### L ACT #### [facility] [address] [place] [address] Dr. Jovanna Magana IG % 1.0 % Critically high 0.0-0.5 [facility] Comment on above: Performed By: #### L ACT #### [facility] [address] [place] [address] Dr. Jovanna Magana LYMPH # 1.1 103/ul Critically low 1.2-3.8 [facility] Comment on above: Performed By: #### L ACT #### [facility] [address] [place] [address] Dr. Jovanna Magana Lymphocytes/100 WBC (Bld) 8.3 % Critically low 20.5-60.0 [facility] Comment on above: Performed By: #### L ACT #### [facility] [address] [place] [address] Dr. Jovanna Magana MANUAL DIFF REQ NO Normal [facility] Comment on above: Performed By: #### L ACT #### [facility] [address] [place] [address] Dr. Jovanna Magana MCH (RBC) [Entitic mass] 31.0 pg Normal 26.7-34.0 [facility] Comment on above: Performed By: #### L ACT #### [facility] [address] [place] [address] Dr. Jovanna Magana MCHC (RBC) [Mass/Vol] 32.5 g/dL Normal 29.9-35.2 [facility] Comment on above: Performed By: #### L ACT #### [facility] [address] [place] [address] Dr. Jovanna Magana MCV (RBC) [Entitic vol] 95.3 fL Normal 81.0-99.0 [facility] Comment on above: Performed By: #### L ACT #### [facility] [address] [address] [address] Jovanna Magana MONO # 0.8 103/ul Normal 0.3-0.8 [facility] Comment on above: Performed By: #### L ACT #### [facility] [address] [address] [address] Jovanna Magana Monocytes/100 WBC (Bld) 5.8 % Normal 1.7-12.0 [facility] Comment on above: Performed By: #### L ACT #### [facility] [address] [address] [address] Jovanna Magana NEUT # 11.4 103/ul Critically high 1.4-6.5 [facility] Comment on above: Performed By: #### L ACT #### [facility] [address] [place] [address] Dr. Jovanna Magana Neutrophils/100 WBC (Bld) 84.7 % Critically high 43.0-75.0 [facility] Comment on above: Performed By: #### L ACT #### [facility] [address] [place] [address] Dr. Jovanna Magana Platelet mean volume (Bld) [Entitic vol] 10.1 fL Normal 9.5-13.5 [facility] Comment on above: Performed By: #### L ACT #### [facility] [address] [place] [address] Dr. Jovanna Magana PLT 205 103/ul Normal 150-450 [facility] Comment on above: Performed By: #### L ACT #### [facility] [address] [place] [address] Dr. Jovanna Magana RBC 4.07 106/ul Critically low 4.20-5.40 [facility] Comment on above: Performed By: #### L ACT #### [facility] [address] [address] [address] Jovanna Magana WBC 13.4 103/ul Critically high 4.0-11.0 [facility] Comment on above: Performed By: #### L ACT #### [facility] [address] [address] [address] Jovanna Magana DRUG SCREEN RAPID (URINE)on 04-20-2022 AMP Negative Normal NEGATIVE [facility] Comment on above: Performed By: #### U MICRO, ERUR, DRUGRPD ####[facility] [address] [address]Dr. Jovanna Magana BAR Negative Normal NEGATIVE [facility] Comment on above: Performed By: #### U MICRO, ERUR, DRUGRPD ####[facility] [address] [address]Dr. Jovanna Magana BUP Negative Normal NEGATIVE [facility] Comment on above: Performed By: #### U MICRO, ERUR, DRUGRPD ####[facility] [address] [address]Dr. Jovanna Magana BZO Negative Normal NEGATIVE [facility] Comment on above: Performed By: #### U MICRO, ERUR, DRUGRPD ####[facility] [address] [address]Dr. Jovanna Magana CARA Negative Normal NEGATIVE [facility] Comment on above: Performed By: #### U MICRO, ERUR, DRUGRPD ####[facility] [address] [address]Dr. Jovanna Magana CUT-OFFS SEE BELOW Normal [facility] Comment on [...] Performed By: #### U MICRO, ERUR, DRUGRPD ####[facility] [address] [address]Dr. Jovanna [facility] DRUG CUT HEADER DRUG CLASS TEST SYST EM CUT-OFF CONCENTRATIONS ARE FOLLOWS: Normal [facility] Comment on above: Performed By: #### U MICRO, ERUR, DRUGRPD ####[facility] [address] [address]Dr. Jovanna Magana mAMP Negative Normal NEGATIVE [facility] Comment on above: Performed By: #### U MICRO, ERUR, DRUGRPD ####[facility] [address] [address]Dr. Jovanna Magana MTD Negative Normal NEGATIVE [facility] Comment on above: Performed By: #### U MICRO, ERUR, DRUGRPD ####[facility] [address] [address]Dr. Jovanna Magana OPI Positive Abnormal NEGATIVE [facility] Comment on above: Performed By: #### U MICRO, ERUR, DRUGRPD ####[facility] [address] [address]Dr. Jovanna Magana OXY Negative Normal NEGATIVE [facility] Comment on above: Performed By: #### U MICRO, ERUR, DRUGRPD ####[facility] [address] [address]Dr. Jovanna Magana PCP Negative Normal NEGATIVE [facility] Comment on above: Performed By: #### U MICRO, ERUR, DRUGRPD ####[facility] [address] [address]Dr. Jovanna Magana PPX Negative Normal NEGATIVE [facility] Comment on above: Performed By: #### U MICRO, ERUR, DRUGRPD ####[facility] [address] [address]Dr. Jovanna Magana TCA Negative Normal NEGATIVE [facility] Comment on above: Performed By: #### U MICRO, ERUR, DRUGRPD ####[facility] [address] [address]Dr. Jovanna Magana THC Positive Abnormal NEGATIVE [facility] Comment on above: Performed By: #### U MICRO, ERUR, DRUGRPD ####[facility] [address] [address]Dr. Rosaliareagan Magana ER URINE PROFILEon 2 Bilirubin Ql (U) Negative Normal NEGATIVE [facility] Comment on above: Performed By: #### U MICRO, ERUR, DRUGRPD ####[facility] [address] [address]Dr. Jovanna Magana Clarity (U) CLEAR Normal CLEAR [facility] Comment on above: Performed By: #### U MICRO, ERUR, DRUGRPD ####[facility] [address] [address]Dr. Jovanna Magana Color (U) LT. YELLOW Normal YELLOW [facility] Comment on above: Performed By: #### U MICRO, ERUR, DRUGRPD ####[facility] [address] [place], [place] [address]Dr. Jovanna Magana ERUAHD A micrscopic examination will be performed if indicated. Normal [facility] Comment on above: Performed By: #### U MICRO, ERUR, DRUGRPD ####[facility] [address] [place], [place] [address]Dr. Jovanna Magana Glucose Ql (U) >1000 Abnormal NEGATIVE [facility] Comment on above: Performed By: #### U MICRO, ERUR, DRUGRPD ####[facility] [address] [place], [place] [address]Dr. Jovanna Magana Hemoglobin Ql (U) Negative Normal NEGATIVE [facility] Comment on above: Performed By: #### U MICRO, ERUR, DRUGRPD ####[facility] [address] [address]Dr. Jovanna Magana Ketones Ql (U) Negative Normal NEGATIVE [facility] Comment on above: Performed By: #### U MICRO, ERUR, DRUGRPD ####[facility] [address] [place], [place] [address]Dr. Rosalialan Magana LEUKOCYTES Negative Normal NEGATIVE [facility] Comment on above: Performed By: #### U MICRO, ERUR, DRUGRPD ####[facility] [address] [place], [place] [address]Dr. Jovanna Magana Nitrite Ql (U) Negative Normal NEGATIVE [facility] Comment on above: Performed By: #### U MICRO, ERUR, DRUGRPD ####[facility] [address] [address]Dr. Jovanna Magana pH (U) 6.5 [pH] Normal 5-9 [facility] Comment on above: Performed By: #### U MICRO, ERUR, DRUGRPD ####[facility] [address] [address]Dr. Jovanna Magana Protein (U) [Mass/Vol] 30 mg/dL Abnormal NEGATIVE/ TRACE [facility] Comment on above: Performed By: #### U MICRO, ERUR, DRUGRPD ####[facility] [address] [address]Dr. Jovanna Magana SPEC GRAVITY 1.015 Normal 1.005-<=1.02 5 [facility] Comment on above: Performed By: #### U MICRO ERUR, DRUGRPD ####[facility] [address] [address]Dr. Jovanna Magana UR MICRO IND INDICATED Normal [facility] Comment on above: Performed By: #### U MICRO, ERUR, DRUGRPD ####[facility] [address] [address]Dr. Jovanna Magana Urobilinogen Qn (U) 1.0 {Isabella'U}/dL Normal 0.2 - 1. 0 [facility] Comment on above: Performed By: #### U MICRO, ERUR, DRUGRPD ####[facility] [address] [address]Dr. Jovanna Magana LACTATE/LACTIC ACIDon 2021 Lactate [Moles/Vol] 1.7 mmol/L Normal 0.4-1.9 [facility] Comment on above: Performed By: #### L ACT #### [facility] [address] [address] [address] Jovanna Magana PROF 14(COMP METB)on 022 Albumin [Mass/Vol] 3.4 g/dL Normal 3.4-5.0 [facility] Comment on above: Performed By: #### V ITB12 #### [facility] [address] [place] [address] Dr. Jovanna Magana Albumin/Globulin [Mass ratio] 1.1 {ratio} Normal [facility] Comment on above: Performed By: #### V ITB12 #### [facility] [address] [place] [address] Dr. Jovanna Magana ALP [Catalytic activity/Vol] 99 U/L Normal 46-116 [facility] Comment on above: Performed By: #### V ITB12 #### [facility] [address] [place] [address] Dr. Jovanna Magana ALT [Catalytic activity/Vol] 32 U/L Normal 14-59 [facility] Comment on above: Performed By: #### V ITB12 #### [facility] [address] [place] [address] Dr. Jovanna Magana Anion gap [Moles/Vol] 10.0 mmol/L Normal [facility] Comment on above: Performed By: #### V ITB12 #### [facility] [address] [place] [address] Dr. Jovanna Magana AST [Catalytic activity/Vol] 38 U/L Critically high 15-37 [facility] Comment on above: Performed By: #### V ITB12 #### [facility] [address] [place] [address] Dr. Jovanna Magana Bilirubin [Mass/Vol] 0.8 mg/dL Normal 0.2-1.0 [facility] Comment on above: Performed By: #### V ITB12 #### [facility] [address] [address] [address] Jovanna Magana Calcium [Mass/Vol] 8.1 mg/dL Critically low 8.5-10.1 [facility] Comment on above: Performed By: #### V ITB12 #### [facility] [address] [place] [address] Dr. Jovanna Magana Chloride [Moles/Vol] 102 mmol/L Normal 98-107 [facility] Comment on above: Performed By: #### V ITB12 #### [facility] [address] [address] [address] Jovanna Magana CO2 [Moles/Vol] 31.1 mmol/L Normal 21.0-32.0 [facility] Comment on above: Performed By: #### V ITB12 #### [facility] [address] [address] [address] Jovanna Magana Creatinine [Mass/Vol] 0.78 mg/dL Normal 0.55-1.02 [facility] Comment on above: Performed By: #### V ITB12 #### [facility] [address] [place] [address] Dr. Jovanna Magana EGFR-AF CITIZEN OF [place] >60 Normal >=60 [facility] Comment on above: Performed By: #### V ITB12 #### [facility] [address] [place] [address] Dr. Jovanna Magana EGFR-NON AF CITIZEN OF [place] >60 Normal >=60 [facility] Comment on above: Performed By: #### V ITB12 #### [facility] [address] [address] [address] Jovanna Magana Globulin (S) [Mass/Vol] 3.2 g/dL Normal [facility] Comment on above: Performed By: #### V ITB12 #### [facility] [address] [address] [address] Jovanna Magana Glucose [Mass/Vol] 251 mg/dL Critically high 74-106 [facility] Comment on above: Performed By: #### V ITB12 #### [facility] [address] [address] [address] Jovanna Magana Potassium [Moles/Vol] 3.1 mmol/L Critically low 3.5-5.1 [facility] Comment on above: Performed By: #### V ITB12 #### [facility] [address] [place] [address] Dr. Jovanna Magana Protein [Mass/Vol] 6.6 g/dL Normal 6.4-8.2 [facility] Comment on above: Performed By: #### V ITB12 #### [facility] [address] [address] [address] Jovanna Magana Sodium [Moles/Vol] 140 mmol/L Normal 136-145 [facility] Comment on above: Performed By: #### V ITB12 #### [facility] [address] [address] [address] Jovanna Magana Urea nitrogen [Mass/Vol] 8.0 mg/dL Normal 7.0-18.0 [facility] Comment on above: Performed By: #### V ITB12 #### [facility] [address] [address] [address] Jovanna Magana Urea nitrogen/Creatinine [Mass ratio] 10.3 mg/mg Normal [facility] Comment on above: Performed By: #### V ITB12 #### [facility] [address] [address] [address] Jovanna Magana TROPONIN, HIGH SENSITIVITYon 04-20-2022 HSTROP 13.8 pg/mL Normal 4.0-51.3 [facility] Comment on above: Result Comment: CUT- OFF POINTS HAVE BEEN ESTABLISHED BASED ON THE FOURTH UNIVERSAL DEFINITIONS OF MYOCARDIAL INFARCTION. THE UPPER REFERENCE LIMIT (URL) OF TROPONIN, DEFINED THE 99TH PERCENTILE OF cTnI DISTRIBUTION IN A REFERENCE POPULATION, HAS BEEN CONFIRMED THE DECISION THRESHOLD FOR [place] DIAGNOSIS. Performed By: #### V ITB12 #### [facility] [address] [address] [address] Jovanna Magana URINE MICROSCOPIC ONLYon BACTERIA TRACE Abnormal NONE SEEN [facility] Comment on above: Performed By: #### U MICRO, ERUR, DRUGRPD ####[facility] [address] [address]Dr. Jovanna Magana Bacteria identified Cx Nom (U) NOT INDICATED Normal [facility] Comment on above: Performed By: #### U MICRO, ERUR, DRUGRPD ####[facility] [address] [id number][address] Jovanna Magana CAST SEEN Abnormal NONE SEEN [facility] Comment on above: Performed By: #### U MICRO, ERUR, DRUGRPD ####[facility] [id number] [place] [id number]. Jovanna Magana Crystals LM Nom (Urine sed) NONE SEEN Normal NONE SEEN [facility] Comment on above: Performed By: #### U MICRO, ERUR, DRUGRPD ####[facility] [id number] [place] [id number]. Jovanna Magana Epithelial cells LM Ql (Urine sed) FEW Abnormal NONE SEEN /RARE [facility] Comment on above: Performed By: #### U MICRO, ERUR, DRUGRPD ####[facility] [id number] [place] [address]Dr. Jovanna Magana HYALINE CAST FEW Normal [facility] Comment on above: Performed By: #### U MICRO, ERUR, DRUGRPD ####[facility] [id number] [place] [address]Dr. Jovanna Magana MUCOUS NONE SEEN Normal NONE SEEN [facility] Comment on above: Performed By: #### U MICRO, ERUR, DRUGRPD ####[facility] [id number] [place] [id number]. Jovanna Magana RBC 0-2 Normal 0-2 [facility] Comment on above: Performed By: #### U MICRO, ERUR, DRUGRPD ####[facility] [id number] [place] [id number]. Jovanna Magana WBC 0-2 Abnormal NONE SEEN [facility] Comment on above: Performed By: #### U MICRO, ERUR, DRUGRPD ####[facility] [id number] [place] [id number]. Jovanna Magana XR CHEST 1 Von 04-20-2022 XR CHEST [...] by: Ayaka LEON Date: 2022-04-20 02:33 Normal [facility] XR ANKLE RT MIN 3 VIEWSon [...] by: KOBE HICKEY Date: 2022-03-26 09:41 Normal [facility] Vital Signs Date Time Vital Sign Value Performing Clinician Facility 03-18-2025 13:12-0400 Body height 154.9 cm Evansmalinda Thomas DPM Work Phone: [facility] 03-18-2025 13:12-0400 Body mass index (BMI) [Ratio] 20.6 kg/m2 Evans [facility] DPM Work Phone: [facility] 03-18-2025 13:12-0400 Body weight 49.44 kg Evans [facility] DPM Work Phone: [facility] 08-13-2024 12:24-0400 Body height 154.94 cm PHYSICIAN NO [facility] 08-13-2024 12:24-0400 Body temperature 97.8 [degF] PHYSICIAN NO [facility] 08-13-2024 12:24-0400 Body weight 48 kg PHYSICIAN NO [facility] 08-13-2024 12:24-0400 Diastolic blood pressure 98 mm[Hg] PHYSICIAN NO [facility] 08-13-2024 12:24-0400 Heart rate 84 /min PHYSICIAN NO [facility] 08-13-2024 12:24-0400 Respiratory rate 18 /min PHYSICIAN NO [facility] 08-13-2024 12:24-0400 SaO2% (BldA) [Mass fraction] 98 % PHYSICIAN NO [facility] 08-13-2024 12:24-0400 Systolic blood pressure 160 mm[Hg] PHYSICIAN NO [facility] Encounters Encounter Date Encounter Type Care Provider Facility Start: 06-02-2025 End: 06-02-2025 ambulatory MASTER CAPONE [facility] Start: 05-28-2025 Evaluation and management of inpatient HOSSEIN PORTILLO [facility] Start: 05-27-2025 Evaluation and management of inpatient ASMITA [facility] Start: 05-27-2025 Evaluation and management of inpatient [facility] Start: 05-26-2025 Evaluation and management of inpatient [facility] Start: 05-26-2025 Evaluation and management of inpatient [facility] Start: 05-26-2025 End: 05-28-2025 Evaluation and management of inpatient SHANTA TRIPATHI [facility] Start: 05-25-2025 End: 05-25-[address] [facility] Work Phone: Start: 05-25-2025 End: 05-25-2025 Departed Referred Shanta Tripathi DO -LAB [facility] Start: 05-07-2025 End: 05-07-2025 ambulatory [facility] Start: 05-01-2025 Emergency department patient visit BEATRIZ PANDYA [facility] Start: 05-01-2025 End: 05-03-2025 Evaluation and management of inpatient ASMITA PALOMINO [facility] Start: 04-09-2025 End: 04-13-2025 Evaluation and management of inpatient VAUGHN T SAI [facility] Start: 04-08-2025 End: 04-08-2025 ambulatory [facility] Start: 03-18-2025 End: 03-18-2025 Emmett flowssadia Thomas DPM Work Phone: [facility] Start: 03-18-2025 End: 03-18-2025 Bamboo flowsheet Evans Thomas DPM Work Phone: [facility] Start: 03-18-2025 End: 03-18-2025 Office outpatient visit 25 minutes Evans Thomas DPM Work Phone: [facility] Comment on above: Contusion of left gr eat toe with damage to nail, initial encounter (Primary Dx); Onychodystrophy; Left foot pain Start: 03-18-2025 End: 03-18-2025 ambulatory EVANS THOMAS Not Available Start: 03-11-2025 End: 03-11-2025 ambulatory [facility] Start: 08-13-2024 End: 08-13-2024 Emergency department patient visit PHYSICIAN ABIGAIL [facility] Work Phone: Start: 07-10-2024 End: 07-11-2024 ambulatory Vikram Mckenna MD Facility:[facility] Start: 06-30-2024 End: 07-02-2024 ambulatory [facility] Start: 06-09-2024 End: 06-11-2024 ambulatory [facility] Start: 05-26-2024 ambulatory [facility] Start: 05-26-2024 Encounter for other preprocedural examination [facility] Start: 05-22-2024 Non-patient / Non-visit PHYSICIAN ABIGAIL [facility] Work Phone: Start: 03-23-2023 End: 03-23-2023 ambulatory ABDULKADIR Booker [...] SHAMMO Facility:H1 Start: 11-01-2022 ambulatory TATUM SHAMMO Facility:[facility] Start: 10-08-2022 End: 10-08-2022 ambulatory TATUM SHAMMO Facility:[facility] Start: 10-06-2022 ambulatory Woo FALCON Facility :[facility] Start: 10-03-2022 End: 10-04-2022 ambulatory TATUM SHAMMO Facility:[facility]1 Start: 09-14-2022 Encounter for genera l adult medical examination without abnormal findings TATUM SHAMMO [facility] Start: 09-12-2022 End: 09-13-2022 ambulatory TATUM [...] Facility:H1 Start: 06-22-2022 End: 06-22-2022 ambulatory [facility] Facility:[facility] Start: 05-02-2022 End: 05-02-2022 ambulatory [facility] Facility:[facility]1 Start: 04-20-2022 End: 04-20-2022 ambulatory CAROL ANN ALIA Facility:[facility]1 Start: 03-26-2022 End: 03-26-2022 ambulatory DARRIN PEREZ . Facility: Plan of Treatment Date Care Activity Detail Author Start: 05-25-2025 Urine culture [facility] Start: 05-25-2025 Bacteria identified in Urine by Culture Urine Culture [facility] Start: 04-01-2025 End: 04-01-2025 Patient encounter procedure 04/01/2025 1:15 PM EDT Office Visit [facility] [address] [place] [phone] Evans Thomas, DPXochilt [address], [place] [id number] [facility] Start: 03-18-2025 End: 03-18-2025 Patient encounter procedure 03/18/2025 1:15 PM EDT Office Visit [facility] [address] [place] [phone] Evans Thomas, [place] [address] [place], [place] [id number] Arrived [facility] Comment on above: Arrived Patient Education Managing acute pain at home [facility] Work Phone: Patient referral [facility] Work Phone: Payers Date Payer Category Payer Self-pay 2024 Unknown 2021 Medicaid (Managed Care) CRAIG FERNÁNDEZ [id number] 1973 Unknown [id number] .16.840.1.302460.3.579.2. 727 1973 Unknown [id number] .16.840.1.539035.3.579.2. 727 1973 Unknown [id number] 2.16.840.1.548337.3.579.2. 593 1973 Unknown [id number] 2.16.840.1.221660.3.579.2. 593 1973 Unknown [id number] 2.16.840.1.734451.3.579.2. 593 1973 Unknown [id number] 2.16.840.1.348429.3.579.2. 593 1973 Unknown [id number] 2.16.840.1.075223.3.579.2. 593 1973 Unknown [id number] 2.16.840.1.409730.3.579.2. 593 1973 Unknown [id number] 2.16.840.1.401929.3.579.2. 593 1973 Unknown [id number] 2.16.840.1.140195.3.579.2. 593 1973 Unknown [id number] 2.16.840.1.588498.3.579.2. 593 1973 Unknown [id number] 2.16.840.1.505972.3.579.2. 593 1973 Unknown [id number] 2.16.840.1.271620.3.579.2. 593 1973 Unknown [id number] 2.16.840.1.010892.3.579.2. 593 1973 Unknown [id number] 2.16.840.1.294171.3.579.2. 593 1973 Unknown [id number] 2.16.840.1.464716.3.579.2. 593 1973 Unknown [id number] 2.16.840.1.096916.3.579.2. 593 1973 Unknown [id number] 2.16.840.1.754350.3.579.2. 593 1973 Unknown [id number] 2.16.840.1.956714.3.579.2. 593 1973 Unknown [id number] 2.16.840.1.717368.3.579.2. 593 1973 Unknown [id number] 2.16.840.1.198931.3.579.2. 593 1973 Unknown [id number] 2.16.840.1.778177.3.579.2. 593 1973 Unknown [id number] 2.16.840.1.701653.3.579.2. 593 1973 Unknown [id number] 2.16.840.1.459854.3.579.2. 593 1973 Unknown [id number] 2.16.840.1.404386.3.579.2. 174 1973 Unknown [id number] 2.16.840.1.165082.3.579.2. 174 1973 Unknown [id number] 2.16.840.1.353663.3.579.2. 174 1973 Unknown [id number] 2.16.840.1.216583.3.579.2. 174 1973 Unknown [id number] 2.16.840.1.750560.3.579.2. 174 1973 Unknown [id number] 2.16.840.1.472889.3.579.2. 196 1973 Unknown [id number] 2.16.840.1.501031.3.579.2. 1259 1959 Self-pay [id number] 1959 Unknown [id number] 1959 Unknown [id number] Unknown [id number] 2.16.840.1.557732.3.579.2. 531 Unknown [id number] .16.840.1.900664.3.579.2. 531 Social History Date Type Detail Facility Start: 08-13-2024 Tobacco smoking stat us NHIS Smoker (finding) [facility] Start: 1975 Sex Assigned At Female F [facility] consumption unknown [facility] Start: 1975 Sex assigned at Not on file N [facility] Gender identity Not on file [facility] are Start: 08-13-2024 End: 03-18-2025 Tobacco smoking status NHIS Smokes tobacco daily [facility] History of tobacco use Cigarette Smoker N [facility] Start: 03-18-2025 Tobacco use and exposure Smokeless tobacco non-user [facility] Start: 03-18-2025 Alcoholic beverage intake Ex-drinker (finding) [facility] Sex Female (finding) [facility] Clinical Notes 06-22-2022 to 06-02-2025 Evans Thomas, FEDERICO - 03/18/2025 1:15 PM EDT Note Date & Type Note Facility 06-02-2025 Note Subjective Patient ID: Kati Thorne is a 49 y.o. female who presents for Hospital Follow-up. Kati Thorne is a 49 y.o. female here today for hospital discharge follow up for left portal vein thrombosis. Patient has a PMH GERD, ERCP w/ sphincterotomy and stent placement in on the 04/08/2025, pancreatitis, and recent EGD and stent removal on 05/07/2025. Patient states she has no history of vascular intervention or clotting disorder. Hospital Course: Patient is a transfer from [facility] where she presented with generalized abdominal pain dull to sharp nonradiating associate with nausea hide mild distention denies any nausea vomiting diarrhea dyspepsia patient has recent admission at [facility] for epigastric abdominal pain has 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 Workup including CT abdomen done at [facility] showed left portal vein thrombosis she also had CT scan of the chest which showed no acute infiltrate but did show pneumobilia which was started on IV fluids morphine was given along with Toradol for pain electrolytes were replaced. Patient states that she is out of her pain medication and is having severe abdominal pain. She denies any nausea, vomiting, early satiety, bloating.. She does endorse intermittent diarrhea. She has a follow up with GI next week. Review of Systems Constitutional: Negative for chills, fatigue and fever. HENT: Negative for congestion, ear pain and trouble swallowing. Eyes: Negative for pain and visual disturbance. Respiratory: Positive for shortness of breath. Negative for chest tightness. Cardiovascular: Positive for chest pain and palpitations. Negative for leg swelling. Gastrointestinal: Positive for abdominal pain and diarrhea. Negative for abdominal distention, constipation, nausea and vomiting. Genitourinary: Negative for difficulty urinating. Musculoskeletal: Negative for back pain and neck pain. Neurological: Negative for dizziness, light-headedness and headaches. Psychiatric/Behavioral: Negative for agitation, behavioral problems and confusion. Objective There were no vitals taken for this visit. Physical Exam Vitals and nursing note reviewed. Constitutional: General: She is awake. Appearance: She is underweight. HENT: Head: Normocephalic and atraumatic. Neck: Vascular: No carotid bruit. Cardiovascular: Rate and Rhythm: Normal rate and regular rhythm. Pulses: Carotid pulses are 2+ on the right side and 2+ on the left side. Radial pulses are 2+ on the right side and 2+ on the left side. Dorsalis pedis pulses are 2+ on the right side and 2+ on the left side. Heart sounds: Normal heart sounds. Pulmonary: Effort: Pulmonary effort is normal. No respiratory distress. Abdominal: General: Abdomen is flat. There is no distension. Palpations: There is no mass. Tenderness: There is abdominal tenderness. There is no right CVA tenderness, left CVA tenderness, guarding or rebound. Hernia: No hernia is present. Musculoskeletal: Cervical back: Normal range of motion and neck supple. No tenderness. Right lower leg: No edema. Left lower leg: No edema. Skin: General: Skin is warm and dry. Capillary Refill: Capillary refill takes 2 to 3 seconds. Coloration: Skin is pale. Neurological: General: No focal deficit present. Mental Status: She is alert and oriented to person, place, and time. Mental status is at baseline. Psychiatric: Mood and Affect: Mood normal. Behavior: Behavior normal. Thought Content: Thought content normal. Judgment: Judgment normal. Assessment/Plan Diagnoses and all orders for this visit: Portal vein thrombosis - Portal hepatic venous duplex limited; Future - Portal hepatic venous duplex limited; Future Tobacco abuse Post-ERCP acute pancreatitis Severe protein-calorie malnutrition (CMS/HCC) -Continue with Eliquis 5 mg BID -Recommend that she follow up with GI and her PCP regarding her pain. If pain is worse than she should seek urgent medical attention -We will plan to have her return in 6 months with repeat imaging -Encouraged her to call with any additional questions or concerns -Eliquis refilled. Master Capone, MSN, AGACNP-[facility] Division of Vascular/Endovascular and Wound Surgery [facility] 05-28-2025 Note Hospital Medicine Discharge Summary Final Discharge Diagnosis: Principal Problem: Hepatic vein thrombosis (CMS/HCC) Active Problems: Pancreatic pseudocyst Acute abdominal pain Primary hypertension Duodenal papillary stenosis Other specified hypothyroidism Tobacco use Simple chronic bronchitis (CMS/HCC) Admission Diagnosis: Portal vein thrombosis [I81] Hospital course: Surgical, Invasive or Diagnostic Procedures Done During Admission: None Consultations During Admission: Gastroenterology and Vascular Surgery 49 y.o. white female transferred from [facility] where she presented with generalized abdominal pain dull to sharp nonradiating associate with nausea hide mild distention denies any nausea vomiting diarrhea dyspepsia patient has recent admission at [facility] for epigastric abdominal pain has history of ERCP induced pancreatitis on 03/31/2025 also had biliary and pancreatic sphincterotomy's balloon dilatation and placement of stent ,workup including CT abdomen done showed left portal vein thrombosis she also had CT scan of the chest which showed no acute infiltrate but did show pneumobilia which was started on IV fluids morphine was given along with Toradol for pain electrolytes were replaced. # Acute abdominal pain # Hepatic vein thrombosis: - Patient had recent EGD on 04/2025 which was unremarkable. - CT A/P: Nonopacification of the left hepatic vein and geographic hypoattenuation of the left hepatic lobe concerning for hepatic vein thrombosis. - Portal hepatic duplex showed patent portal vein with normal direction of flow. - MRI abdomen showed persistent thrombosis left hepatic vein, mosaic perfusion left liver lobe. - GI recommended no intervention. - Discharged on Eliquis per Vascular. - Follow up with Vascular and GI. # Primary hypertension - Continue amlodipine and hydralazine. # Pancreatic pseudocyst - GI recommended no intervention. # Duodenal papillary stenosis - S/P ERCP and sphincterotomy on 03/2025. - GI recommended no intervention. # Other specified hypothyroidism - Continue levothyroxine. # Tobacco use - Counseled. - Continue nicotine patch. # Simple chronic bronchitis (CMS/HCC) - Continue home inhaler. Dear MD Allyssa, Kati is advised to follow up with you within 1-2 weeks. Items to follow up in ambulatory setting: None Follow-up with: Gastroenterology and Vascular Surgery Scheduled appointments: Future Appointments Date Time Provider Department Center 06/09/2025 11:30 AM Anabella Rodriguez CNP [facility] Your medication list START taking these medications Instructions Last Dose Given Next Dose Due apixaban 5 mg tablet Commonly known as: Eliquis Start taking on: May 28, 2025 Take 2 tablets (10 mg) by mouth two times daily for 7 days, THEN 1 tablet (5 mg) two times daily. oxyCODONE-acetaminophen 10-325 mg tablet Commonly known as: Percocet Take 1 tablet by mouth every 4 (four) hours if needed for moderate-severe pain (4-10 pain score) for up to 5 days. CONTINUE taking these medications Instructions Last Dose Given Next Dose Due albuterol 90 mcg/actuation inhaler amLODIPine 5 mg tablet Commonly known as: Norvasc gabapentin 300 mg capsule Commonly known as: Neurontin levothyroxine 25 mcg tablet Commonly known as: Synthroid, Levoxyl metoprolol tartrate 25 mg tablet Commonly known as: Lopressor Take 1 tablet (25 mg) by mouth two times daily for 195 doses. nicotine 14 mg/24 hr patch Commonly known as: Nicoderm CQ Place 1 patch on the skin 1 (one) time each day at the same time for 5 days. ondansetron 4 mg tablet Commonly known as: Zofran pantoprazole 40 mg EC tablet Commonly known as: ProtoNix Take 1 tablet (40 mg) by mouth two times daily. Do not crush, chew, or split. Symbicort 80-4.5 mcg/actuation inhaler Generic drug: budesonide-formoteroL STOP taking these medications amoxicillin-pot clavulanate 875-125 mg tablet Commonly known as: Augmentin Where to Get Your Medications These medications were sent to [facility] - [place], [place] - [address], [facility] [address] apixaban 5 mg tablet oxyCODONE-acetaminophen 10-325 mg tablet Kati has no known allergies. Disposition: Home or Self Care () Discharge Condition: Stable Code Status: Full Code Diagnostic Results Hematology: Results from last 7 days Lab Units 05/27/25 0536 05/26/25 0206 WBC AUTO 10*3/uL 7.98 6.70 HEMOGLOBIN g/dL 12.2 10.2* HEMATOCRIT % 37.0 31.7* MCV fL 94.1 96.9 PLATELETS AUTO 10*3/uL 161 159 154 Chemistry: Results from last 7 days Lab Units 05/27/25 0536 05/26/25 0206 SODIUM mmol/L 136 138 POTASSIUM mmol/L 3.5 3.9 CHLORIDE mmol/L 104 110* CO2 mmol/L 23 26 BUN mg/dL 8 5* CREATININE mg/dL 0.48* 0.52* GLUCOSE mg/dL 86 93 MAGNESIUM mg/dL 2.0 -- CALCIUM mg/dL (more content not included)... [facility] 05-28-2025 Note Gastroenterology/Hep atology Progress Note IDENTIFYING DATA PATIENT: Kati Thorne ADMIT DATE: 05/26/2025 TIME OF EVALUATION: 05/28/2025 10:23 AM Reason for Consult: Abdominal pain with recent EGD stent removal Admitting Physician: Asmita Palomino MD SUBJECTIVE/INTERVAL HISTORY Kati Thorne's overnight events were reviewed. Patient seen and evaluated, resting in bed. She reports continued right-mid abdominal pain, however this is slightly improved from admission. Currently tolerating a regular diet without nausea/vomiting. CT abdomen/pelvis was performed yesterday which showed concern for left hepatic vein thrombosis. OBJECTIVE MEDICATIONS SCHEDULED: amLODIPine, 5 mg, oral, Daily enoxaparin, 30 mg, subcutaneous, q24h MISTY gabapentin, 600 mg, oral, BID hydrALAZINE, 25 mg, oral, BID iohexol, 100 mL, intravenous, Once in imaging levothyroxine, 25 mcg, oral, Daily before breakfast metoprolol tartrate, 25 mg, oral, BID mometasone-formoterol, 1 puff, inhalation, BID nicotine, 1 patch, transdermal, q24h pantoprazole, 40 mg, oral, BID PRNs: acetaminophen, 650 mg, q6h PRN albuterol, 2 puff, q6h PRN ondansetron ODT, 4 mg, q8h PRN Or ondansetron, 4 mg, q8h PRN oxyCODONE-acetaminophen, 1 tablet, q6h PRN oxyCODONE-acetaminophen, 1 tablet, q6h PRN Physical VITALS: BP (!) 143/91 (BP Location: Left arm, Patient Position: Lying) Pulse 74 Temp 36.9 ???C (98.5 ???F) (Oral) Resp 18 Ht 1.549 m (5' 1 ) Wt 44.4 kg (97 lb 14.2 oz) SpO2 100% BMI 18.50 kg/m??? GEN: Alert and oriented x3, NAD CV: Regular rate and rhythm PULM: Breathing comfortably ABD: Soft, non-distended, right mid abdominal tenderness upon palpation with voluntary guarding, no rigidity NEURO: Moves all visualized extremities spontaneously LABS AND IMAGING CBC: Results from last 7 days Lab Units 05/27/25 0536 05/26/25 0206 WBC AUTO 10*3/uL 7.98 6.70 RBC AUTO 10*6/uL 3.93 3.27* HEMOGLOBIN g/dL 12.2 10.2* HEMATOCRIT % 37.0 31.7* MCV fL 94.1 96.9 RDW % 13.5 13.9 PLATELETS AUTO 10*3/uL 161 159 154 PT/INR BMP: Results from last 7 days Lab Units 05/27/25 0536 05/26/25 0206 SODIUM mmol/L 136 138 POTASSIUM mmol/L 3.5 3.9 CHLORIDE mmol/L 104 110* BUN mg/dL 8 5* CREATININE mg/dL 0.48* 0.52* EGFR mL/min/1.73m*2 114.6 112.4 GLUCOSE mg/dL 86 93 LFTs: Results from last 7 days Lab Units 05/27/25 0536 05/26/25 0206 BILIRUBIN TOTAL mg/dL 0.8 1.1* BILIRUBIN DIRECT mg/dL 0.1 -- ALK PHOS U/L 91 86 AST U/L 12* 10* ALT U/L 5* 8 ALBUMIN g/dL 3.6 3.2* TOTAL PROTEIN g/dL 6.6 5.4* B12/Folate/Iron studies: No results found for: [id number] , FOLATE , IRON , TIBC , UIBC , IRONSAT , FERRITIN Viral Hepatitis No results found for: HEPAIGM , HAV , HEPBSAG , HEPBSAB , HEPBEAB , HEPBIGM , HEPBCAB , HEPBCOREAB , HBVNAT , HCVSCR , HEPCAB , HCVNAT , HCVPCR , HCVTMA Liver workup No results found for: NOE , SMOOTHMUSCAB , CERULOPLSM , [id number] , TTGA , IGA , TSH , FREET4 , AFP Pancreatitis Lab Results Component Value Date AMYLASE 65 05/26/2025 LIPASE 36 05/26/2025 CALCIUM 8.6 05/27/2025 IMAGING: CT abdomen pelvis w IV contrast 05/27/25: IMPRESSION: *Nonopacification of the left hepatic vein and geographic hypoattenuation of the left hepatic lobe 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 *Interval removal of biliary and pancreatic duct stents with persistent dilatation of the common hepatic duct and pneumobilia. *Interval resolution of multiple peripancreatic fluid collections. Vascular US portal hepatic venous duplex 05/26/25: IMPRESSION: Portal-Hepatic: Patent portal vein with hepatopedal flow. Normal low resistive arterial flow with no evidence of stenosis and velocity of 125 cm/sec. Patent inferior vena cava and hepatic veins noted. Portal-Hepatic: Patent portal vein with hepatopedal flow. Normal low resistive arterial flow with no evidence of stenosis and velocity of 125 cm/sec. Patent inferior vena cava and hepatic veins noted. Conclusions: Patent portal vein with normal direction of flow. Patent hepatic artery and veins. ASSESSMENT AND PLAN Kati Thorne is a 49 y.o. female with past medical history of GERD, ERCP w/ sphincterotomy and stent placement in on the 04/08/2025, pancreatitis, and recent EGD and stent removal on 05/07/2025, and is a current smoker 1PPD for 15 years. She presented to [facility] on 05/25/2025 for right sided abdominal pain with complaints of feeling feverish and fatigue that begun that day. She is currently in 9/10 pain that is colicky in nature along her right side extending to her flank. Assessment Abdominal Pain Differential Diagnosis: Mass effect from multiple pancreatic pseudocysts seen on imaging from 05/01/2025, Right sided nephrolithiasis, Pain from Transient Portal vein thrombus CT abdomen/pelvis 05/01/2025: Multiple peripancre (more content not included)... [facility] 05-27-2025 Note - Continue home inhaler. [facility] 05-27-2025 Note - Counseled. - Continue nicotine patch. [facility] 05-27-2025 Note - Continue amlodipine and hydral azine. [facility] 05-27-2025 Note - CT A[email or web address] showed possible portal vein thrombosis. Doppler showed patent hepatic veins. - Patient had recent EGD on 04/2025 which was unremarkable. - Repeat CT A/P due to persistent pain. Follow up UA. - GI recommended no intervention. [facility] 05-27-2025 Note - Continue levothyroxine. [facility] 05-27-2025 Note - S/P ERCP and sphin cterotomy on 03/2025. - GI recommended no intervention. [facility] 05-27-2025 Note - GI recommended no intervention . [facility] 05-27-2025 Note Hospital Medicine Daily Progress Note - 05/27/2025 3:32 PM; Room: [address] [place] [address] Admission: 05/26/2025 1:31 AM; Length of stay: 1 days THE HOSPITALIST TEAM PREFERS TO USE [employer] CHAT FOR NON-URGENT COMMUNICATION 7AM-7PM. IF I DO NOT RESPOND WITHIN 20 MINUTES OR URGENT MATTERS, PLEASE CALL THROUGH THE ASSEMBLY LINE MACHINE OPERATOR. FROM 7PM-7AM, PLEASE PAGE [phone](COVR). Code Status: Full Code Barriers to Discharge: Pending improvement in abdominal pain Expected Discharge Date: Discharge Destination: home Overview Patient is seen for evaluation and management of abdominal pain. Subjective Patient continues to report right and RUQ pain. Patient had a vomit yesterday. Physical Exam Visit Vitals BP (!) 144/115 Pulse 95 Temp 36.4 ???C (97.6 ???F) (Temporal) Resp 18 No intake or output data in the 24 hours ending 05/27/25 1532 Physical Exam Constitutional: General: She is in acute distress. Cardiovascular: Rate and Rhythm: Normal rate and regular rhythm. Pulmonary: Effort: Pulmonary effort is normal. Breath sounds: Normal breath sounds. Abdominal: General: Abdomen is flat. Palpations: Abdomen is soft. Tenderness: There is abdominal tenderness (Epigastric and RUQ). Neurological: General: No focal deficit present. Mental Status: She is alert and oriented to person, place, and time. Estimated body mass index is 18.61 kg/m??? as calculated from the following: Height as of this encounter: 1.549 m (5' 1 ). Weight as of this encounter: 44.7 kg (98 lb 8 oz). Assessment and Plan Assessment & Plan Acute abdominal pain - CT A/P from outside facility showed possible portal vein thrombosis. Doppler showed patent hepatic veins. - Patient had recent EGD on 04/2025 which was unremarkable. - Repeat CT A/P due to persistent pain. Follow up UA. - GI recommended no intervention. Primary hypertension - Continue amlodipine and hydralazine. Pancreatic pseudocyst - GI recommended no intervention. Duodenal papillary stenosis - S/P ERCP and sphincterotomy on 03/2025. - GI recommended no intervention. Other specified hypothyroidism - Continue levothyroxine. Tobacco use - Counseled. - Continue nicotine patch. Simple chronic bronchitis (CMS/HCC) - Continue home inhaler. Nutrition Screen: Malnutrition Attestation: No dietitian assessment is available at this time. VTE Prophylaxis: Lovenox Scheduled Meds amLODIPine, 5 mg, oral, Daily enoxaparin, 30 mg, subcutaneous, q24h MISTY gabapentin, 600 mg, oral, BID hydrALAZINE, 25 mg, oral, BID levothyroxine, 25 mcg, oral, Daily before breakfast metoprolol tartrate, 25 mg, oral, BID mometasone-formoterol, 1 puff, inhalation, BID nicotine, 1 patch, transdermal, q24h pantoprazole, 40 mg, oral, BID Pertinent Investigations Hematology: Results from last 7 days Lab Units 05/27/25 0536 05/26/25 0206 WBC AUTO 10*3/uL 7.98 6.70 HEMOGLOBIN g/dL 12.2 10.2* HEMATOCRIT % 37.0 31.7* MCV fL 94.1 96.9 PLATELETS AUTO 10*3/uL 161 159 154 Chemistry: Results from last 7 days Lab Units 05/27/25 0536 05/26/25 0206 SODIUM mmol/L 136 138 POTASSIUM mmol/L 3.5 3.9 CHLORIDE mmol/L 104 110* CO2 mmol/L 23 26 BUN mg/dL 8 5* CREATININE mg/dL 0.48* 0.52* GLUCOSE mg/dL 86 93 MAGNESIUM mg/dL 2.0 -- CALCIUM mg/dL 8.6 7.3* Results from last 7 days Lab Units 05/27/25 0536 05/26/25 0939 05/26/25 0206 AST U/L 12* -- 10* ALT U/L 5* -- 8 ALK PHOS U/L 91 -- 86 BILIRUBIN TOTAL mg/dL 0.8 -- 1.1* BILIRUBIN DIRECT mg/dL 0.1 -- -- LIPASE U/L -- 36 46 Historical Values: (Includes values prior to this admission) Lab Results Component Value Date TSH 2.83 04/10/2025 No results found for: [id number] , IRON , TIBC , C3 , C4 , NOE , CANCA , ASO , PSA , CEA , CA125 , CA199 , AFP , CA153 Imaging CT transfer of outside films This order has been auto-finalized and does not contain a result. XR transfer of outside films This order has been auto-finalized and does not contain a result. Discharge Planning Expected Discharge Disposition: Home or Self Care (01) Signed Asmita Palomino MD [facility] 05/27/2025 3:32 PM [facility] 05-27-2025 Note Readmission Risk Sco re 10. One ED/Inpt admits in the past 6 months. OP Specialty senior product analyst received complex care referral via [employer]. This speech writer reviewed the chart and pt does not meet criteria for Outpatient Specialty/Complex industrial relations representative program criteria at this time [facility] 05-26-2025 Note 05/26/25 0716 Admission Assessment Questions Verify insurance with patient Yes Do you understand medical disease or what brought you into the hospital? Yes Who is your current PCP? Vani Spivey Can I schedule a follow up appointment for you at the time of discharge? Yes Does patient qualify for Complex Care Management Enrollment? Yes Do you understand why you are taking your current medications? Yes Are you taking your medications as prescribed? Yes Did patient provide teach back? Yes Pharmacy Bedside Delivery Status Interested Does the patient have a egg caser assigned to them through their insurance? No Living Arrangement (Current/Prior to Hospitalization) Private residence Does the patient have history of HHC or SNF? No Assistive Device Walker;Cane Patient's goal for discharge return home with Father and daughter Was patient reminded that goal for discharge is 11am? Yes Does the patient have transportation at discharge? Yes (father) Type of Residence Private residence Is PT/OT appropriate? No Is PT/OT ordered? No Is SW consult appropriate? No Is SW consult ordered? No Do you understand the benefits of MyChart? Yes Were you able to send link and activate MyChart? MyChart already active [facility] 05-26-2025 Note [facility] Vascular Surgery/Wound Care CONSULTATION Reason for Consult: Heparinized patient with finding of portal vein thrombosis at [facility] Subjective History of Present Illness: Kati Thorne is a 49 y.o. female Kati Thorne is an 49 y.o. white female with PMH GERD, ERCP w/ sphincterotomy and stent placement in on the 04/08/2025, pancreatitis, and recent EGD and stent removal on 05/07/2025. Patient states she has no history of vascular intervention or clotting disorder. Patient is a transfer from [facility] where she presented with generalized abdominal pain dull to sharp nonradiating associate with nausea hide mild distention denies any nausea vomiting diarrhea dyspepsia patient has recent admission at [facility] for epigastric abdominal pain has 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 Workup including CT abdomen done at [facility] showed left portal vein thrombosis she also had CT scan of the chest which showed no acute infiltrate but did show pneumobilia which was started on IV fluids morphine was given along with Toradol for pain electrolytes were replaced. Patient was ultimately transferred to [facility], and vascular surgery was consulted for concern for left portal vein thrombosis. Patient was seen and examined today at bedside. She reports no acute events overnight. She states that her abdominal pain started yesterday and had no appetite but denies nausea or vomiting. She states the pain radiates to the upper right quadrant of the abdomen and sitting up helps with the pain. She states the pain is constant and rates it an 8/10 on a 10 point scale. Review of Systems Constitutional: Positive for appetite change, chills and fatigue. HENT: Negative. Eyes: Negative. Respiratory: Negative for cough, chest tightness and shortness of breath. Cardiovascular: Negative for chest pain and palpitations. Gastrointestinal: Positive for abdominal pain. Negative for constipation, diarrhea, nausea and vomiting. Genitourinary: Negative. Musculoskeletal: Negative. Skin: Negative for color change. Medical History[1] Surgical History[2] Allergies[3] Current Medications[4] Social History Socioeconomic History Marital status: Spouse name: Not on file Number of children: Not on file Years of education: Not on file Highest education level: Not on file Occupational History Not on file Tobacco Use Smoking status: Every Day Average packs/day: 1 pack/day for 15.0 years (15.0 ttl pk-yrs) Types: Cigarettes Start date: 1988 Smokeless tobacco: Never Vaping Use Vaping status: Never Used Substance and Sexual Activity Alcohol use: Not Currently Drug use: Yes Types: Marijuana Sexual activity: Not on file Other Topics Concern Not on file Social History Narrative Not on file Social Drivers of Health Financial Resource Strain: Low Risk (05/26/2025) Overall Financial Resource Strain (CARDIA) Difficulty of Paying Living Expenses: Not hard at all Food Insecurity: No Food Insecurity (05/26/2025) Hunger Vital Sign Worried About Running Out of Food in the Last Year: Never true Ran Out of Food in the Last Year: Never true Transportation Needs: No Transportation Needs (05/26/2025) Transportation Lack of Transportation (Medical): No Lack of Transportation (Non-Medical): No Physical Activity: Not on file Stress: No Stress Concern Present (05/01/2025) [employer] - Occupational Stress Questionnaire Feeling of Stress : Only a little Social Connections: Socially Isolated (05/01/2025) Social Connection and Isolation Panel [NHANES] Frequency of Communication with Friends and Family: More than three times a week Frequency of Social Gatherings with Friends and Family: More than three times a week Attends Spiritism Services: Never Active Member of Clubs or Organizations: No Attends Club or Organization Meetings: Never Marital Status: Intimate Partner Violence: Not At Risk (05/26/2025) Humiliation, Afraid, Rape, and Kick questionnaire Fear of Current or Ex-Partner: No Emotionally Abused: No Physically Abused: No Sexually Abused: No Housing Stability: Low Risk (05/26/2025) Housing Stability Vital Sign Unable to Pay for Housing in the Last Year: No Number of Times Moved in the Last Year: 0 Homeless in the Last Year: No Family History[5] Objective Physical Exam Constitutional: Appearance: Normal appearance. She is normal weight. HENT: Head: Normocephalic. Nose: Nose normal. Mouth/Throat: Mouth: Mucous membranes are moist. Pharynx: Oropharynx is clear. Eyes: Pupils: Pupils are equal, round, and reactive to light. Cardiovascular: Rate and Rhythm: Normal rate and regular rhythm. Pulses: Radial pulses are 2+ on the right side and 2+ on the left side. Dorsalis pedis pulses are detecte (more content not included)... [facility] 05-26-2025 Note [facility] Vascular Surgery/Wound Care CONSULTATION Reason for Consult: Heparinized patient with finding of portal vein thrombosis at [facility] Subjective History of Present Illness: Kati Thorne is a 49 y.o. female Kati Thorne is an 49 y.o. white female with PMH GERD, ERCP w/ sphincterotomy and stent placement in on the 04/08/2025, pancreatitis, and recent EGD and stent removal on 05/07/2025. Patient states she has no history of vascular intervention or clotting disorder. Patient is a transfer from [facility] where she presented with generalized abdominal pain dull to sharp nonradiating associate with nausea hide mild distention denies any nausea vomiting diarrhea dyspepsia patient has recent admission at [facility] for epigastric abdominal pain has 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 Workup including CT abdomen done at [facility] showed left portal vein thrombosis she also had CT scan of the chest which showed no acute infiltrate but did show pneumobilia which was started on IV fluids morphine was given along with Toradol for pain electrolytes were replaced. She states that her abdominal pain started yesterday and had no appetite but denies nausea or vomiting. She states the pain radiates to the upper right quadrant of the abdomen and sitting up helps with the pain. She states the pain is constant and rates it an 8/10 on a 10 point scale. Review of Systems Constitutional: Positive for appetite change, chills and fatigue. HENT: Negative. Eyes: Negative. Respiratory: Negative for cough, chest tightness and shortness of breath. Cardiovascular: Negative for chest pain and palpitations. Gastrointestinal: Positive for abdominal pain. Negative for constipation, diarrhea, nausea and vomiting. Genitourinary: Negative. Musculoskeletal: Negative. Skin: Negative for color change. Medical History[1] Surgical History[2] Allergies[3] Current Medications[4] Social History Socioeconomic History Marital status: Spouse name: Not on file Number of children: Not on file Years of education: Not on file Highest education level: Not on file Occupational History Not on file Tobacco Use Smoking status: Every Day Average packs/day: 1 pack/day for 15.0 years (15.0 ttl pk-yrs) Types: Cigarettes Start date: 1988 Smokeless tobacco: Never Vaping Use Vaping status: Never Used Substance and Sexual Activity Alcohol use: Not Currently Drug use: Yes Types: Marijuana Sexual activity: Not on file Other Topics Concern Not on file Social History Narrative Not on file Social Drivers of Health Financial Resource Strain: Low Risk (05/26/2025) Overall Financial Resource Strain (CARDIA) Difficulty of Paying Living Expenses: Not hard at all Food Insecurity: No Food Insecurity (05/26/2025) Hunger Vital Sign Worried About Running Out of Food in the Last Year: Never true Ran Out of Food in the Last Year: Never true Transportation Needs: No Transportation Needs (05/26/2025) Transportation Lack of Transportation (Medical): No Lack of Transportation (Non-Medical): No Physical Activity: Not on file Stress: No Stress Concern Present (05/01/2025) [employer] - Occupational Stress Questionnaire Feeling of Stress : Only a little Social Connections: Socially Isolated (05/01/2025) Social Connection and Isolation Panel [NHANES] Frequency of Communication with Friends and Family: More than three times a week Frequency of Social Gatherings with Friends and Family: More than three times a week Attends Spiritism Services: Never Active Member of Clubs or Organizations: No Attends Club or Organization Meetings: Never Marital Status: Intimate Partner Violence: Not At Risk (05/26/2025) Humiliation, Afraid, Rape, and Kick questionnaire Fear of Current or Ex-Partner: No Emotionally Abused: No Physically Abused: No Sexually Abused: No Housing Stability: Low Risk (05/26/2025) Housing Stability Vital Sign Unable to Pay for Housing in the Last Year: No Number of Times Moved in the Last Year: 0 Homeless in the Last Year: No Family History[5] Objective Physical Exam Constitutional: Appearance: Normal appearance. She is normal weight. HENT: Head: Normocephalic. Nose: Nose normal. Mouth/Throat: Mouth: Mucous membranes are moist. Pharynx: Oropharynx is clear. Eyes: Pupils: Pupils are equal, round, and reactive to light. Cardiovascular: Rate and Rhythm: Normal rate and regular rhythm. Pulses: Radial pulses are 2+ on the right side and 2+ on the left side. Dorsalis pedis pulses are detected w/ Doppler on the right side and detected w/ Doppler on the left side. Posterior tibial pulses are detected w/ Doppler on the right side and detected w/ Doppler on the left side. Pulmonary: Effort: Pulmo (more content not included)... [facility] 05-26-2025 Note Heparinized patient monitors cell count vascular surgery to see patient [facility] 05-26-2025 Note Recent admission and evaluation by GI control pain monitor serial lipase [facility] 05-26-2025 Note Hospital Medicine History and Physical 05/26/2025 5:05 AM THE HOSPITALIST TEAM PREFERS TO USE [employer] CHAT FOR NON-URGENT COMMUNICATION 7AM-7PM. IF I DO NOT RESPOND WITHIN 20 MINUTES OR URGENT MATTERS, PLEASE CALL THROUGH THE ASSEMBLY LINE MACHINE OPERATOR. FROM 7PM-7AM, PLEASE PAGE [phone](COVR). Chief Complaint No chief complaint on file. History of Present Illness Kati Thorne is an 49 y.o. white female transferred from [facility] where she presented with generalized abdominal pain dull to sharp nonradiating associate with nausea hide mild distention denies any nausea vomiting diarrhea dyspepsia patient has recent admission at [facility] for epigastric abdominal pain has history of ERCP induced pancreatitis on 03/31/2025 also had biliary and pancreatic sphincterotomy's balloon dilatation and placement of stent ,workup including CT abdomen done showed left portal vein thrombosis she also had CT scan of the chest which showed no acute infiltrate but did show pneumobilia which was started on IV fluids morphine was given along with Toradol for pain electrolytes were replaced. Review of System and Physical Exam Temp: [36.7 ???C (98.1 ???F)-37.3 ???C (99.1 ???F)] 36.7 ???C (98.1 ???F) Heart Rate: [73-79] 79 Resp: [12-18] 18 BP: (121-153)/(90-100) 121/90 Physical Exam Vitals reviewed. Constitutional: Appearance: Normal appearance. She is normal weight. HENT: Head: Normocephalic and atraumatic. Right Ear: Tympanic membrane, ear canal and external ear normal. Left Ear: Tympanic membrane, ear canal and external ear normal. Nose: Nose normal. Mouth/Throat: Mouth: Mucous membranes are moist. Pharynx: Oropharynx is clear. Eyes: Extraocular Movements: Extraocular movements intact. Conjunctiva/sclera: Conjunctivae normal. Pupils: Pupils are equal, round, and reactive to light. Cardiovascular: Rate and Rhythm: Normal rate and regular rhythm. Pulses: Normal pulses. Heart sounds: Normal heart sounds. Pulmonary: Breath sounds: Normal breath sounds. Abdominal: General: Abdomen is flat. Bowel sounds are normal. Palpations: Abdomen is soft. Tenderness: There is abdominal tenderness. Musculoskeletal: General: Normal range of motion. Cervical back: Normal range of motion and neck supple. Skin: General: Skin is warm and dry. Capillary Refill: Capillary refill takes less than 2 seconds. Neurological: General: No focal deficit present. Mental Status: She is alert. Mental status is at baseline. Psychiatric: Mood and Affect: Mood normal. Behavior: Behavior normal. Review of Systems Constitutional: Positive for activity change and fatigue. HENT: Negative. Eyes: Negative. Respiratory: Negative. Cardiovascular: Negative. Gastrointestinal: Positive for abdominal pain. Endocrine: Negative. Musculoskeletal: Negative. Allergic/Immunologic: Negative. Neurological: Negative. Hematological: Negative. Psychiatric/Behavioral: Negative. Assessment and Plan Assessment & Plan Portal vein thrombosis Heparinized patient monitors cell count vascular surgery to see patient Pancreatic pseudocyst Recent admission and evaluation by GI control pain monitor serial lipase Had recent upper endoscopy with removal of pancreatico biliary stents consider GI consult Hypertension continue meds Gastroesophageal reflux disease on Protonix History of recent hypokalemia hypomagnesemia check electrolytes COPD bronchodilators counseled patient for Abstinent with tobacco Full code VTE Prophylaxis: IV heparin ----- Focus of this inpatient stay will remain on problems that need acute care setting for care. We will review available studies and will order additional labs, imaging and other studies as appropriate. As needed medicines are ordered as appropriate. VTE Prophylaxis will be ordered as appropriate. Please see above for management plan for individual hospital problems. Home medications are reviewed and will be continued as appropriate. Patient will be continued to be followed during this hospital stay by a member of [facility]. Past Medical History Medical History[1] Past Surgical History Surgical History[2] Social History Social History Socioeconomic History Marital status: Spouse name: Not on file Number of children: Not on file Years of education: Not on file Highest education level: Not on file Occupational History Not on file Tobacco Use Smoking status: Every Day Average packs/day: 1 pack/day for 15.0 years (15.0 ttl pk-yrs) Types: Cigarettes Start date: 1988 Smokeless tobacco: Never Vaping Use Vaping status: Never Used Substance and Sexual Activity Alcohol use: Not Currently Drug use: Yes Types: Marijuana Sexual activity: Not on file Other Topics Concern Not on file Social History Narrative Not on file Social Drivers of Health Financial Resource Strain: Low Risk (05/26/2025) Overall Financial (more content not included)... [facility] 05-07-2025 Note Patient: Kati Thorne Procedure Summary Date: 05/07/25 Room / Location: [facility] In[facility] Anesthesia Start: 1000 Anesthesia Stop: 1021 Procedure: EGD Diagnosis: Dilated cbd, acquired Scheduled Providers: Roscoe Saucedo MD; Titus Little MD; ELLIOTT Reyes Responsible Provider: Titus Little MD Anesthesia Type: MAC ASA Status: 3 Anesthesia Type: MAC Vitals Value Taken Time BP 122/84 05/07/25 10:20 Temp 36.2 ???C (97.2 ???F) 05/07/25 10:20 Pulse 90 05/07/25 10:20 Resp 20 05/07/25 10:20 SpO2 98 % 05/07/25 10:20 Anesthesia Post Evaluation Patient location during evaluation: PACU Patient participation: complete - patient participated Level of consciousness: awake Pain score: 1 Pain management: adequate Airway patency: patent Cardiovascular status: acceptable Respiratory status: acceptable Patient is hemodynamically stable and is able to be discharged from PACU per anesthesia protocol. No notable events documented. [facility] 05-07-2025 Note Patient: Kati Thorne Procedure Information Date/Time: 05/07/25 0930 Scheduled providers: Roscoe Saucedo MD; Titus Little MD; ELLIOTT Reyes Procedure: EGD Location: [facility] Relevant Problems Anesthesia (within normal limits) Cardio Denies chest pain/SOB. No previous cardiac interventions. (+) Essential hypertension (+) NSTEMI (non-ST elevated myocardial infarction) ([facility]/HCC) Endo hypothyroidism /Renal (within normal limits) Neuro/Psych PTSD Pulmonary Long standing tobacco use, COPD, asthma (+) COPD (chronic obstructive pulmonary disease) ([facility]) Clinical information reviewed: Past Medical History: Diagnosis Date Anxiety Arthritis Asthma COPD (chronic obstructive pulmonary disease) ([facility]/HCC) Depression GERD (gastroesophageal reflux disease) Hypothyroidism Irritable bowel syndrome Osteoarthritis Pancreatitis PTSD (post-traumatic stress disorder) Physical Exam Airway Mallampati: II TM distance: >3 FB Neck ROM: full Cardiovascular - normal exam Dental (+) edentulous Pulmonary (+) rhonchi Neurological Abdominal Anesthesia Plan ASA 3 MAC The patient is a current smoker. Patient was previously instructed to abstain from smoking on day of procedure. Patient did not smoke on day of procedure. intravenous induction Anesthetic plan and risks discussed with patient. Plan discussed with ELLIOTT. Additional Equipment Requests [facility] 05-03-2025 Note Hospital Medicine Discharge Summary Final Discharge Diagnosis: Epigastric abdominal pain - resolved Pancreatic pseudocysts History of ERCP pancreatitis Nausea/vomiting - resolved Hypokalemia - resolved Hypomagnesemia - resolved COPD Essential hypertension Admission Diagnosis: Hypokalemia [E87.6] Hypomagnesemia [E83.42] Pancreatic pseudocyst [K86.3] Epigastric pain [R10.13] Essential hypertension [I10] Severe protein-calorie malnutrition [E43] Chronic bronchitis, unspecified chronic bronchitis type (CMS/HCC) [J42] Nausea and vomiting, unspecified vomiting type [R11.2] Hospital course: Ms. Kati Thorne is an 49 y.o. female who came from home with past medical history of PTSD, COPD, tobacco use, hypertension and recent ERCP at [facility] for dilated common bile duct that was complicated by post ERCP pancreatitis for which patient was admitted to the hospital. Patient was discharged on 04/13/2025. She states that she has been having nausea since discharge. Patient also has intermittent diarrhea and vomiting. She also complains of abdominal pain that is worsening. Upon evaluation in the ER, patient's lipase is elevated in 150s. Liver enzymes are normal. Patient's potassium and magnesium are low. CT of the abdomen shows multiple pancreatic pseudocysts. Gastroenterology was consulted from ER they wanted patient to be observed overnight with serial abdominal examsand they will see her in the morning. No chest pain. No fevers or chills. No other concerns. Patient was admitted to hospitalist services for further evaluation and management. Gastroenterology team saw the patient. They evaluated that the patient's pain is rather chronic and unchanged. They recommended pain management, IV fluids as well continuing to advance diet to regular, low fat diet. Patient's abdominal pain and nausea/vomiting were much improved on 05/03. She felt ready to be discharged. GI was agreeable to discharge. Patient is discharged in stable condition to home on 05/03/2025. Surgical, Invasive or Diagnostic Procedures Done During Admission: None Consultations During Admission: Gastroenterology Dear MD Allyssa, Kati is advised to follow up with you within 1-2 weeks. Items to follow up in ambulatory setting: None Follow-up with: Gastroenterology Scheduled appointments: Future Appointments Date Time Provider Department Center 05/07/2025 9:30 AM ENDO 04 [facility] GIS GEORGEI 06/09/2025 11:30 AM Anabella Rodriguez CNP [facility] Your medication list START taking these medications Instructions Last Dose Given Next Dose Due sucralfate 100 mg/mL suspension Commonly known as: Carafate Take 10 mL (1 g) by mouth every 6 (six) hours for 7 days. CHANGE how you take these medications Instructions Last Dose Given Next Dose Due oxyCODONE 5 mg immediate release tablet Commonly known as: Roxicodone What changed: when to take this reasons to take this Take 1 tablet (5 mg) by mouth every 8 (eight) hours if needed for severe pain (8-10 pain score) for up to 4 days. CONTINUE taking these medications Instructions Last Dose Given Next Dose Due albuterol 90 mcg/actuation inhaler amoxicillin-pot clavulanate 875-125 mg tablet Commonly known as: Augmentin gabapentin 300 mg capsule Commonly known as: Neurontin levothyroxine 25 mcg tablet Commonly known as: Synthroid, Levoxyl metoprolol tartrate 25 mg tablet Commonly known as: Lopressor Take 1 tablet (25 mg) by mouth two times daily for 195 doses. nicotine 14 mg/24 hr patch Commonly known as: Nicoderm CQ Place 1 patch on the skin 1 (one) time each day at the same time for 5 days. ondansetron 4 mg tablet Commonly known as: Zofran pantoprazole 40 mg EC tablet Commonly known as: ProtoNix Take 1 tablet (40 mg) by mouth two times daily. Do not crush, chew, or split. Symbicort 80-4.5 mcg/actuation inhaler Generic drug: budesonide-formoteroL Where to Get Your Medications These medications were sent to [id number] - [place], [place] - [address] [facility] [address] [place] [address] sucralfate 100 mg/mL suspension You can get these medications from any pharmacy Bring a paper prescription for each of these medications oxyCODONE 5 mg immediate release tablet Kati has no known allergies. Disposition: Home or Self Care () Discharge Condition: Stable Code Status: Full Code Diagnostic Results Hematology: Results from last 7 days Lab Units 05/02/25 0428 05/01/25 1726 WBC AUTO 10*3/uL 9.20 12.16* HEMOGLOBIN g/dL 9.6* 10.2* HEMATOCRIT % 29.7* 30.8* MCV fL 97.1 94.5 PLATELETS AUTO 10*3/uL 284 207 INR -- 1.08 Chemistry: Results from last 7 days Lab Units 05/02/25 0428 05/01/25 1726 SODIUM mmol/L 139 135* POTASSIUM mmol/L 3.6 3.1* CHLORIDE mmol/L 103 97* CO2 mmol/L 32* 31 BUN mg/dL 8 10 CREATININE mg/dL 0.53* 0.53* GLUCOSE mg/dL 82 87 MAGNESIUM mg/dL 2.4 1. (more content not included)... [facility] 05-03-2025 Note ---- Attestation signed by Beatriz Uriarte MD at 05/03/2025 10:28 AM Discussed with fellow, agree with assessment and plan. ---- Gastroenterology/Hepatology Progress Note IDENTIFYING DATA PATIENT: Kati Thorne ADMIT DATE: 05/01/2025 TIME OF EVALUATION: 05/03/2025 8:39 AM Reason for Consult: Pancreatic Pseudocysts Admitting Physician: Beau Magana MD SUBJECTIVE/INTERVAL HISTORY Kati Thorne's overnight events were reviewed. No acute events overnight. Patient reports that her abdominal pain is significantly improved, and she is tolerating a regular low fat diet. She is anxious to go home. OBJECTIVE MEDICATIONS SCHEDULED: budesonide-formoteroL, 2 puff, inhalation, BID BETA enoxaparin, 40 mg, subcutaneous, Daily gabapentin, 600 mg, oral, BID levothyroxine, 25 mcg, oral, Daily before breakfast metoprolol tartrate, 25 mg, oral, BID nicotine, 1 patch, transdermal, q24h pantoprazole, 40 mg, oral, BID sucralfate, 1 g, oral, q6h MISTY PRNs: acetaminophen, 650 mg, q6h PRN albuterol, 2 puff, q4h PRN bisacodyl, 10 mg, Daily PRN hydrOXYzine pamoate, 25 mg, 4x daily PRN melatonin, 5 mg, Nightly PRN morphine, 2 mg, q6h PRN ondansetron ODT, 4 mg, q8h PRN Or ondansetron, 4 mg, q6h PRN oxyCODONE, 5 mg, q6h PRN polyethylene glycol, 17 g, Daily PRN Physical VITALS: BP 159/90 (BP Location: Right arm, Patient Position: Lying) Pulse 68 Temp 36.9 ???C (98.4 ???F) (Oral) Resp 16 Ht 1.549 m (5' 1 ) Wt 50.8 kg (112 lb) SpO2 98% BMI 21.16 kg/m??? GEN: Alert and oriented x3, NAD HEENT: Atraumatic, normocephalic CV: Regular rate and rhythm PULM: Breathing comfortably ABD: Soft, non-tender, non-distended NEURO: Moves all 4 extremities spontaneously LABS AND IMAGING CBC: Results from last 7 days Lab Units 05/02/25 0428 05/01/25 1726 WBC AUTO 10*3/uL 9.20 12.16* RBC AUTO 10*6/uL 3.06* 3.26* HEMOGLOBIN g/dL 9.6* 10.2* HEMATOCRIT % 29.7* 30.8* MCV fL 97.1 94.5 RDW % 13.2 13.1 PLATELETS AUTO 10*3/uL 284 207 PT/INR Results from last 7 days Lab Units 05/01/25 1726 PROTIME Seconds 14.0 INR 1.08 BMP: Results from last 7 days Lab Units 05/02/25 0428 05/01/25 1726 SODIUM mmol/L 139 135* POTASSIUM mmol/L 3.6 3.1* CHLORIDE mmol/L 103 97* BUN mg/dL 8 10 CREATININE mg/dL 0.53* 0.53* EGFR mL/min/1.73m*2 111.9 111.9 GLUCOSE mg/dL 82 87 LFTs: Results from last 7 days Lab Units 05/01/25 1726 BILIRUBIN TOTAL mg/dL 0.6 BILIRUBIN DIRECT mg/dL 0.2 ALK PHOS U/L 95 AST U/L 11* ALT U/L <3* ALBUMIN g/dL 3.1* TOTAL PROTEIN g/dL 5.9* B12/Folate/Iron studies: No results found for: [id number] , FOLATE , IRON , TIBC , UIBC , IRONSAT , FERRITIN Viral Hepatitis No results found for: HEPAIGM , HAV , HEPBSAG , HEPBSAB , HEPBEAB , HEPBIGM , HEPBCAB , HEPBCOREAB , HBVNAT , HCVSCR , HEPCAB , HCVNAT , HCVPCR , HCVTMA Liver workup No results found for: NOE , SMOOTHMUSCAB , CERULOPLSM , [id number] , TTGA , IGA , TSH , FREET4 , AFP Pancreatitis Lab Results Component Value Date LIPASE 159 (H) 05/01/2025 CALCIUM 8.1 (L) 05/02/2025 IMAGING: ASSESSMENT AND PLAN Kati Thorne is a 49 y.o. female with PMHx of recent ERCP 04/08/25 with biliary and pancreatic sphincterotomies with pancreatic stent placement, course complicated by post ERCP pancreatitis, who presents for abdominal pain, with CT showing pancreatic pseudocysts. Assessment Pancreatic pseudocysts Abdominal pain, appears to be chronic Patient reports persistent abdominal pain which has been similar severity since her ERCP. Of note, patient did have EUS for complaints of abdominal pain as well, and this appears to be unchanged. Plan Okay for full liquid diet, advance to regular low fat diet as tolerated Pain management, IV fluids, and supportive care as per primary team Discussed with Dr. Saucedo: Low overall suspicion that pancreatic pseudocysts are causing gastric outlet obstruction, as evidenced by CT and clinically. There is no indication for Axios stent at this time. Discussed pancreatic stent removal with the patient, she wishes to be discharged home and follow up for ERCP with stent removal as already scheduled on 04/06. There is no contraindication to discharge from a GI perspective. Patient already has follow up arranged with ERCP on 04/06, and a clinic appointment on 06/09. The case will be discussed with the attending physician Gastroenterology 6 am to 4 pm weekdays in house: [phone] 4 pm to 6 am or weekends: Please contact the stamp press operator to page the fellow physician relations representative [facility] 05-02-2025 Note - not in exacerbatio n - Continue home symbicort [facility] 05-02-2025 Note - Blood pressure wit hin acceptable range on 05/02 - Continue lopressor 25mg BID [facility] 05-02-2025 Note - replaced and resolved [facility] 05-02-2025 Note - tolerated breakfas t - Advancing diet to regular texture, low-fat diet as tolerated [facility] 05-02-2025 Note - Pancreatic pseudoc ysts noted on CT abd/pelvis, doesn't appear infected on imaging study - GI following, appreciate recommendations [facility] 05-02-2025 Note Hospital Medicine Daily Progress Note - 05/02/2025 1:26 PM; Room: [id number]- Admission: 05/01/2025 4:15 PM; Length of stay: 0 days THE HOSPITALIST TEAM PREFERS TO USE [employer] FOR NON-URGENT COMMUNICATION 7AM-7PM. IF I DO NOT RESPOND WITHIN 20 MINUTES OR URGENT MATTERS, PLEASE CALL THROUGH THE ASSEMBLY LINE MACHINE OPERATOR. FROM 7PM-7AM, PLEASE PAGE [phone](COVR). Code Status: Full Code Barriers to Discharge: advancing diet Expected Discharge Date: tomorrow Discharge Destination: home Overview Patient is seen for evaluation and management of pancreatic pseudocysts. Subjective Patient seen and examined in the morning. She was resting in bed. She overall was resting in bed, without any acute distress. Patient noting significant abdominal pain. Physical Exam Visit Vitals BP (!) 131/96 Pulse 72 Temp 36.6 ???C (97.9 ???F) Resp 16 Intake/Output Summary (Last 24 hours) at 05/02/2025 1326 Last data filed at 05/02/2025 1203 Gross per 24 hour Intake 1840.16 ml Output -- Net 1840.16 ml Physical Exam Vitals reviewed. Constitutional: General: She is not in acute distress. Appearance: She is not ill-appearing or toxic-appearing. HENT: Head: Normocephalic and atraumatic. Mouth/Throat: Mouth: Mucous membranes are moist. Eyes: General: No scleral icterus. Extraocular Movements: Extraocular movements intact. Pupils: Pupils are equal, round, and reactive to light. Cardiovascular: Rate and Rhythm: Normal rate. Pulmonary: Effort: Pulmonary effort is normal. No respiratory distress. Breath sounds: No stridor. Abdominal: General: There is no distension. Palpations: There is no mass. Tenderness: There is abdominal tenderness (epigastric). There is guarding. Neurological: Mental Status: She is alert. Cranial Nerves: No cranial nerve deficit. Psychiatric: Mood and Affect: Mood normal. Behavior: Behavior normal. Thought Content: Thought content normal. Judgment: Judgment normal. Estimated body mass index is 21.16 kg/m??? as calculated from the following: Height as of this encounter: 1.549 m (5' 1 ). Weight as of this encounter: 50.8 kg (112 lb). Assessment and Plan Assessment & Plan Pancreatic pseudocyst Epigastric pain - Pancreatic pseudocysts noted on CT abd/pelvis, doesn't appear infected on imaging study - GI following, appreciate recommendations Nausea & vomiting - tolerated breakfast - Advancing diet to regular texture, low-fat diet as tolerated Hypokalemia - replaced and resolved Hypomagnesemia - replaced and resolved COPD (chronic obstructive pulmonary disease) ([facility]) - not in exacerbation - Continue home symbicort Essential hypertension - Blood pressure within acceptable range on 05/02 - Continue lopressor 25mg BID VTE Prophylaxis: Lovenox Scheduled Meds budesonide-formoteroL, 2 puff, inhalation, BID BETA enoxaparin, 40 mg, subcutaneous, Daily gabapentin, 600 mg, oral, BID levothyroxine, 25 mcg, oral, Daily before breakfast metoprolol tartrate, 25 mg, oral, BID nicotine, 1 patch, transdermal, q24h pantoprazole, 40 mg, oral, BID prochlorperazine, 5 mg, intravenous, q6h sucralfate, 1 g, oral, q6h MISTY sodium chloride, 50 mL/hr, Last Rate: 50 mL/hr (05/02/25 1203) Pertinent Investigations Hematology: Results from last 7 days Lab Units 05/02/25 0428 05/01/25 1726 WBC AUTO 10*3/uL 9.20 12.16* HEMOGLOBIN g/dL 9.6* 10.2* HEMATOCRIT % 29.7* 30.8* MCV fL 97.1 94.5 PLATELETS AUTO 10*3/uL 284 207 INR -- 1.08 Chemistry: Results from last 7 days Lab Units 05/02/25 0428 05/01/25 1726 SODIUM mmol/L 139 135* POTASSIUM mmol/L 3.6 3.1* CHLORIDE mmol/L 103 97* CO2 mmol/L 32* 31 BUN mg/dL 8 10 CREATININE mg/dL 0.53* 0.53* GLUCOSE mg/dL 82 87 MAGNESIUM mg/dL 2.4 1.7* CALCIUM mg/dL 8.1* 8.3* Results from last 7 days Lab Units 05/01/25 1726 AST U/L 11* ALT U/L <3* ALK PHOS U/L 95 BILIRUBIN TOTAL mg/dL 0.6 BILIRUBIN DIRECT mg/dL 0.2 LIPASE U/L 159* Historical Values: (Includes values prior to this admission) Lab Results Component Value Date TSH 2.83 04/10/2025 No results found for: [id number] , IRON , TIBC , C3 , C4 , NOE , CANCA , ASO , PSA , CEA , CA125 , CA199 , AFP , CA153 Imaging CT abdomen pelvis w IV contrast Narrative: CT abdomen and pelvis with IV contrast CLINICAL INFORMATION: Abdominal pain. Pt reports having surgery April 08 (ERCP) which caused her to develop pancreatitis and had a couple flare ups. COMPARISON: None TECHNIQUE: CT of the abdomen and pelvis with intravenous contrast. FINDINGS: LOWER CHEST: No acute findings. LIVER AND BILIARY: Mild pneumobilia. Stents within the common duct/common hepatic duct and main pancreatic duct. Common hepatic duct is dilated. Gallbladder is surgically absent PANCREAS: There is a thin-walled complex multilobulated collection centered lesser sac, measuring roughly 5.9 x 4.9 cm, abutting the stomach ant (more content not included)... [facility] 05-02-2025 Note 05/02/25 0818 Admission Assessment Questions Verify insurance with patient Yes Do you understand medical disease or what brought you into the hospital? Yes Who is your current PCP? Vani Le I schedule a follow up appointment for you at the time of discharge? No Do you understand why you are taking your current medications? Yes Are you taking your medications as prescribed? Yes Did patient provide teach back? No Pharmacy Bedside Delivery Status Interested Does the patient have a egg caser assigned to them through their insurance? No Living Arrangement (Current/Prior to Hospitalization) Home self care (From home with father and two daughters) Does the patient have history of HHC or SNF? No Assistive Device Cane;Walker (has these devices but does not use) Patient's goal for discharge Goal is to discharge home Was patient reminded that goal for discharge is 11am? No Does the patient have transportation at discharge? Yes Type of Residence Private residence Is PT/OT appropriate? No Is PT/OT ordered? No Is SW consult appropriate? No Is SW consult ordered? No Do you understand the benefits of MyChart? Yes Were you able to send link and activate MyChart? No [facility] 05-01-2025 Note Will continue Proton ix 40 mg twice daily Will add sucralfate 1 g every 6 hours Gastroenterology consulted Pain control with home dose of oxycodone and morphine as needed [facility] 05-01-2025 Note Gastroenterology con sult Pain control [facility] 05-01-2025 Note Zofran as needed Compazine scheduled for next 24 hours Full liquid diet and advance as tolerated [facility] 05-01-2025 Note Magnesium sulfate 2 g IV x 1 Will recheck level with a.m. labs [facility] 05-01-2025 Note Will replace and kang l monitor level with a.m. labs [facility] 05-01-2025 Note Hospital Medicine History and Physical 05/01/2025 10:44 PM THE HOSPITALIST TEAM PREFERS TO USE [employer] FOR NON-URGENT COMMUNICATION 7AM-7PM. IF I DO NOT RESPOND WITHIN 20 MINUTES OR URGENT MATTERS, PLEASE CALL THROUGH THE ASSEMBLY LINE MACHINE OPERATOR. FROM 7PM-7AM, PLEASE PAGE [phone](COVR). Chief Complaint Chief Complaint Patient presents with Post-op Problem Pt reports recent ERCP. Following ERCP she got pancreatitis and was admitted. Pt reports increase of pain, nausea, and diarrhea since discharge along with severe abd pain. History of Present Illness Kait Thorne is an 49 y.o. female who came from home with past medical history of PTSD, COPD, tobacco use, hypertension and recent ERCP at [facility] for dilated common bile duct that was complicated by post ERCP pancreatitis for which patient was admitted to the hospital. Patient was discharged on 04/13/2025. She states that she has been having nausea since discharge. Patient also has intermittent diarrhea and vomiting. She also complains of abdominal pain that is worsening. Upon evaluation in the ER, patient's lipase is elevated in 150s. Liver enzymes are normal. Patient's potassium and magnesium are low. CT of the abdomen shows multiple pancreatic pseudocysts. Gastroenterology was consulted from ER they wanted patient to be observed overnight with serial abdominal examsand they will see her in the morning. No chest pain. No fevers or chills. No other concerns. Review of System and Physical Exam Temp: [37.2 ???C (99 ???F)] 37.2 ???C (99 ???F) Heart Rate: [87-91] 91 Resp: [16-17] 17 BP: (147-165)/(89-111) 150/89 Physical Exam Constitutional: General: She is not in acute distress. Appearance: Normal appearance. She is ill-appearing. Comments: Edentulous HENT: Head: Normocephalic and atraumatic. Eyes: Conjunctiva/sclera: Conjunctivae normal. Cardiovascular: Rate and Rhythm: Normal rate and regular rhythm. Heart sounds: No murmur heard. No friction rub. No gallop. Pulmonary: Effort: Pulmonary effort is normal. No respiratory distress. Breath sounds: No wheezing, rhonchi or rales. Comments: Diminished breath sounds bilaterally. Abdominal: General: There is distension. Palpations: Abdomen is soft. Tenderness: There is abdominal tenderness. There is no guarding or rebound. Musculoskeletal: General: No swelling or deformity. Right lower leg: No edema. Left lower leg: No edema. Skin: General: Skin is warm and dry. Coloration: Skin is pale. Findings: No rash. Neurological: General: No focal deficit present. Mental Status: She is alert and oriented to person, place, and time. Psychiatric: Mood and Affect: Mood normal. Behavior: Behavior normal. Thought Content: Thought content normal. Judgment: Judgment normal. Review of Systems as mentioned in HPI Assessment and Plan Assessment & Plan Pancreatic pseudocyst Gastroenterology consult Pain control Nausea & vomiting Zofran as needed Compazine scheduled for next 24 hours Full liquid diet and advance as tolerated Hypokalemia Will replace and will monitor level with a.m. labs Hypomagnesemia Magnesium sulfate 2 g IV x 1 Will recheck level with a.m. labs Epigastric pain Will continue Protonix 40 mg twice daily Will add sucralfate 1 g every 6 hours Gastroenterology consulted Pain control with home dose of oxycodone and morphine as needed Protein malnutrition: Boost 3 times daily Hypertension Esophagitis COPD Plan: Patient will be admitted to [facility] telemetry bed for observation. Fall precautions. Patient's home medications were resumed EPC cuffs VTE Prophylaxis: Lovenox ----- Focus of this inpatient stay will remain on problems that need acute care setting for care. We will review available studies and will order additional labs, imaging and other studies as appropriate. As needed medicines are ordered as appropriate. VTE Prophylaxis will be ordered as appropriate. Please see above for management plan for individual hospital problems. Home medications are reviewed and will be continued as appropriate. Patient will be continued to be followed during this hospital stay by a member of [facility]. Past Medical History Medical History[1] Past Surgical History Surgical History[2] Social History Social History Socioeconomic History Marital status: Spouse name: Not on file Number of children: Not on file Years of education: Not on file Highest education level: Not on file Occupational History Not on file Tobacco Use Smoking status: Every Day Average packs/day: 1 pack/day for 15.0 years (15.0 ttl pk-yrs) Types: Cigarettes Start date: 1988 Smokeless tobacco: Never Vaping Use Vaping status: Never Used Substance and Sexual Activity Alcohol use: Not Currently Drug use: Yes Types: Marijuana Sexual activity: Not on file Other Topics Concern Not on file Social H (more content not included)... [facility] 05-01-2025 Note 05/01/252029 Financial Resource Strain How hard is it for you to pay for the very basics like food, housing, medical care, and heating? Not hard Housing Stability In the last 12 months, was there a time when you were not able to pay the mortgage or rent on time? N In the past 12 months, how many times have you moved where you were living? 0 (Lives at home w/ father and two daughters) At any time in the past 12 months, were you homeless or living in a fdc (including now)? N Transportation Needs In the past 12 months, has lack of transportation kept you from medical appointments or from getting medications? no In the past 12 months, has lack of transportation kept you from meetings, work, or from getting things needed for daily living? No Food Insecurity Within the past 12 months, you worried that your food would run out before you got the money to buy more. Never true Within the past 12 months, the food you bought just didn't last and you didn't have money to get more. Never true Stress Do you feel stress - tense, restless, nervous, or anxious, or unable to sleep at night because your mind is troubled all the time - these days? Only a littl Social Connections In a typical week, how many times do you talk on the phone with family, friends, or neighbors? More than 3 How often do you get together with friends or relatives? More than 3 How often do you attend cheondoism or religion services? Never Do you belong to any clubs or organizations such as cheondoism groups, unions, fraternal or athletic groups, or school groups? No How often do you attend meetings of the clubs or organizations you belong to? Never Are you , , , , never , or living with a partner? Intimate Partner Violence Within the last year, have you been afraid of your partner or ex-partner? No Within the last year, have you been humiliated or emotionally abused in other ways by your partner or ex-partner? No Within the last year, have you been kicked, hit, slapped, or otherwise physically hurt by your partner or ex-partner? No Within the last year, have you been raped or forced to have any kind of sexual activity by your partner or ex-partner? No Alcohol Use Q1: How often do you have a drink containing alcohol? Never Q2: How many drinks containing alcohol do you have on a typical day when you are drinking? None Q3: How often do you have six or more drinks on one occasion? Never Utilities In the past 12 months has the [employer], [employer], or water [employer] threatened to shut off services in your home? 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 Referral Reason Psychosocial assessment Patient Information Primary Caregiver Self Activities of Daily Living Assistive Device Not applicable Ambulation Independent Dressing Independent Feeding Independent Behavior Oriented (A&Ox4) Communication Can write;Talks;Understands speaking;Understands Syrian;Reads Income Information Income Source Unemployed (SSDI IP) Discharge Planning Living Arrangements Children;Parent (Lives w/ father and two daughters) Support Systems Parent;Children (Father (Luis Manuel); two daughters) Type of Residence Private residence;DME (Lives at home w/ father and two daughters; has walkers and canes at home though does not currently need to use) Post Acute Services None Patient's goal for discharge Home Does the patient need discharge transport arranged? No Completed social work assessment and SDoH screening. Patient was A&Ox4 at this time. Patient reported that she lives at home with her father, Luis Manuel, and her two daughters. Patient identified her support system as her father and her two daughters and she endorsed that she is moderately socially active. Patient reported that she is independent with ADLs without the use of any DME. Patient noted that she has walkers and canes available to her at home though does not currently need to use these. Patient reported that she is unemployed and is in the process of applying for SSDI. Patient denied the need for assistance with obtaining basic needs. Patient also denied the need for assistance with transportation for medical appointments and she denied the need for assistance with transportation to return home from the hospital upon discharge. Patient denied experiencing a significant amount of stress in her everyday life, denied experiencing any form of IPV within the past year, and denied any alcohol consumption or recreational drug use. [facility] 04-16-2025 Note Message left for pat zayra to call and schedule an EGD for stent removal with Dr. Roscoe Saucedo in 3 weeks from previous procedure on 04/08/25. [facility] 04-13-2025 Note Hospital Medicine Discharge Summary Final Discharge Diagnosis: Post ERCP pancreatitis Nausea and vomiting secondary to acute pancreatitis Hypokalemia Hypomagnesemia Hypocalcemia Essential hypertension NSTEMI likely type II demand ischemia COPD Tobacco use disorder Severe protein calorie malnutrition Admission Diagnosis: Acute pancreatitis due to systemic disease [K85.90] Hospital course: Kati Thorne is an 49 y.o. female admitted from [facility] presented with uncontrolled ongoing abdominal pain mainly in the upper abdomen described as continuous sharp worse with eating radiating to back associated with persistent nausea vomiting had intermittent dyspepsia denies hematemesis blood in bowels coffee-ground emesis had constipation and had not moved bowel movements in past 3 days denies any dysuria hematuria fever chills chest pains. Patient was discharged from [facility] on 04/08/2025 after undergoing ERCP with biliary [...] an Zofran she had labs done at [facility] which showed WBC 25.6 hemoglobin 15.4 hematocrit [...] None Consultations During Admission: Gastroenterology Dear MD Allyssa, Kati is advised to follow up with you within 1-2 weeks. Items to follow up in ambulatory setting: Follow-up with GI for stent removal Follow-up with: Gastroenterology Scheduled appointments: Future Appointments Date Time Provider Department Center 06/09/2025 11:30 AM Anabella Rodriguez CNP [facility] Your medication list START [...] Medications These medications were sent to [facility] - [address] [place] [address] [address] [facility] [place] [address], [facility] [address] calcium carbonate 200 mg calcium (500 mg) chewable tablet magnesium oxide 400 mg (241.3 mg magnesium) tablet metoprolol tartrate 25 mg tablet nicotine 14 mg/24 hr patch pantoprazole 40 mg EC tablet polyethylene glycol 17 gram/dose powder potassium chloride CR 10 mEq ER tablet Kati has No Known Allergies. Disposition: (more content not included)... [facility] 04-13-2025 Note Gastroenterology/Hep atology Progress Note [...] Units 04/12/25 0737 04/11/25 0355 04/10/25 0551 WBC AUTO 10*3/uL 5.24 7.80 14.33* [...] 6.3 B12/Folate/Iron studies: No results found for: [id number] , FOLATE , IRON , TIBC , UIBC , IRONSAT , FERRITIN Viral Hepatitis No results found for: HEPAIGM , HAV , HEPBSAG , HEPBSAB , HEPBEAB , HEPBIGM , HEPBCAB , HEPBCOREAB , HBVNAT , HCVSCR , HEPCAB , HCVNAT , HCVPCR , HCVTMA Liver workup No results found for: NOE , SMOOTHMUSCAB , CERULOPLSM , [id number] , TTGA , IGA , TSH , [...] MiraLAX for consti (more content not included)... [facility] 04-12-2025 Note Counseling Tobacco replacement [facility] 04-12-2025 Note Bronchodilators, tob acco cessation, nicotine replacement [facility] 04-12-2025 Note Resolved [facility] 04-12-2025 Note Likely type II deman d ischemia in the setting of acute pancreatitis. [facility] 04-12-2025 Note Nutrition following [place] [facility] 04-12-2025 Note Blood pressure likel y more elevated due to acute pain. Start patient on Lopressor 12.5 mg twice a day [facility] 04-12-2025 Note Calcium supplementation ordered [facility] 04-12-2025 Note - Continue Tigan due to prolonge d QT [facility] 04-12-2025 Note - patient s/p ERCP - Pain regimen adjusted, IV Dilaudid discontinued. Oral pain medications added. - IV fluids discontinued, patient started on low-fat diet, encouraged to eat. [facility] 04-12-2025 Note - Supplementation ordered [facility] 04-12-2025 Note Hospital Medicine Daily Progress Note - 04/12/2025 1:35 PM; Room: [address] [place] [address] Admission: 04/09/2025 7:35 AM; Length of stay: 3 days THE HOSPITALIST TEAM PREFERS TO USE [employer] FOR NON-URGENT COMMUNICATION 7AM-7PM. IF I DO NOT RESPOND WITHIN 20 MINUTES OR URGENT MATTERS, PLEASE CALL THROUGH THE ASSEMBLY LINE MACHINE OPERATOR. FROM 7PM-7AM, PLEASE PAGE [phone](COVR). Code Status: Full Code Barriers to Discharge: [...] Lab Units 04/12/25 0737 04/11/25 03504/10/25 0551 SODIUM mmol/L 132* 134* 136 POTASSIUM [...] 460* -- 2,51 (more content not included)... [facility] 04-11-2025 Note - Continue Tigan due to prolonge d QT [facility] 04-11-2025 Note Bronchodilators, tob acco cessation, nicotine replacement [facility] 04-11-2025 Note Nutrition following [place] [facility] 04-11-2025 Note Likely type II deman d ischemia in the setting of acute pancreatitis. [facility] 04-11-2025 Note - Supplementation ordered [facility] 04-11-2025 Note - patient is 2 days s/p ERCP - patient reports nausea and multiple episodes of vomiting. Patient also has dyspepsia and is burping a lot. Patient currently NPO - pain is being controlled by dilaudid 1 mg IV, every 3 hours PRN - Continue IV fluids to help with acute pancreatitis [facility] 04-11-2025 Note Resolved [facility] 04-11-2025 Note Counseling Tobacco replacement [facility] 04-11-2025 Note Blood pressure likel y more elevated due to acute pain. Continue IV Lopressor every 8 hours while patient is NPO. [facility] 04-11-2025 Note Calcium supplementation ordered [facility] 04-11-2025 Note Hospital Medicine Daily Progress Note - 04/11/2025 11:17 AM; Room: [address] [place] [address] Admission: 04/09/2025 7:35 AM; Length of stay: 2 days THE HOSPITALIST TEAM PREFERS TO USE [employer] FOR NON-URGENT COMMUNICATION 7AM-7PM. IF I DO NOT RESPOND WITHIN 20 MINUTES OR URGENT MATTERS, PLEASE CALL THROUGH THE ASSEMBLY LINE MACHINE OPERATOR. FROM 7PM-7AM, PLEASE PAGE [phone](COVR). Code Status: Full Code Barriers to Discharge: [...] is NPO. NSTEMI (non-ST elevated myocardial infarction) ([facility]) Likely type II demand ischemia in the [...] 7 days Lab (more content not included)... [facility] 04-10-2025 Note 04/10/25 1641 Admission Assessment [...] Status Interested Does the patient have a egg caser assigned to them through their insurance? No [...] link and activate MyChart? MyChart already active [facility] 04-10-2025 Note Gastroenterology/Hep atology Progress Note IDENTIFYING DATA PATIENT: Kati Thorne ADMIT DATE: 04/09/2025 TIME OF EVALUATION: 04/10/2025 3:42 PM Reason for Consult: Post ERCP pancreatitis Admitting Physician: Amarjit Iqbal MD SUBJECTIVE/INTERVAL HISTORY Kati Sebastian's overnight events were reviewed. Patient continued to endorse abdominal pain/chronic likely Continue aggressive IV hydration with monitoring for volume overload symptoms Pain management per the primary team with IV medication Continue nausea management Endorsing dark vomiting/added IV Protonix OBJECTIVE MEDICATIONS SCHEDULED: albumin human, 50 g, intravenous, Once calcium carbonate, 500 mg, oral, Daily metoprolol tartrate, 5 mg, intravenous, q8h nicotine, 1 patch, transdermal, Daily nitroglycerin, 1 patch, transdermal, Daily pantoprazole, 40 mg, intravenous, q12h MISTY potassium chloride, 10 mEq, intravenous, q1h PRNs: albuterol, 2 puff, q6h PRN HYDROmorphone, 1 mg, q3h PRN sodium chloride, 10 mL, q8h PRN trimethobenzamide, 200 mg, q6h PRN Physical VITALS: BP 140/83 Pulse 93 Temp 36.7 ???C (98.1 ???F) (Temporal) Resp 20 Ht 1.549 m (5' 1 ) Wt 48.1 kg (106 lb) SpO2 97% BMI 20.03 kg/m??? GEN: Alert and oriented x3, NAD HEENT: Atraumatic, normocephalic CV: Regular rate and rhythm PULM: Breathing comfortably ABD: Soft, non-tender, non-distended NEURO: Moves all 4 extremities spontaneously LABS AND IMAGING CBC: Results from last 7 days Lab Units 04/10/25 0551 04/09/25 0924 WBC AUTO 10*3/uL 14.33* 22.73* RBC AUTO 10*6/uL 3.73* 4.58 HEMOGLOBIN g/dL 12.1 14.7 HEMATOCRIT % 35.5* 43.0 MCV fL 95.2 93.9 RDW % 12.6 12.2 PLATELETS AUTO 10*3/uL 144* 225 PT/INR Results from last 7 days Lab Units 04/10/25 1305 04/09/25 0924 PROTIME Seconds 16.2* 14.3 INR 1.31* 1.11* BMP: Results from last 7 days Lab Units 04/10/25 0551 04/09/25 0924 SODIUM mmol/L 136 137 POTASSIUM mmol/L 3.0* 2.9* CHLORIDE mmol/L 104 101 BUN mg/dL 17 18 CREATININE mg/dL 0.29* 0.36* EGFR mL/min/1.73m*2 129.4 122.8 GLUCOSE mg/dL 99 142* LFTs: Results from last 7 days Lab Units 04/10/25 0551 04/09/25 1219 04/09/25 0924 BILIRUBIN TOTAL mg/dL 1.8* 1.7* 1.6* BILIRUBIN DIRECT mg/dL 0.5* 0.3* 0.3* ALK PHOS U/L 104 71 71 AST U/L 51* 15 16 ALT U/L 32 8 8 ALBUMIN g/dL 3.4* 3.9 4.0 TOTAL PROTEIN g/dL 5.3* 6.3 6.1 B12/Folate/Iron studies: No results found for: [id number] , FOLATE , IRON , TIBC , UIBC , IRONSAT , FERRITIN Viral Hepatitis No results found for: HEPAIGM , HAV , HEPBSAG , HEPBSAB , HEPBEAB , HEPBIGM , HEPBCAB , HEPBCOREAB , HBVNAT , HCVSCR , HEPCAB , HCVNAT , HCVPCR , HCVTMA Liver workup Lab Results Component Value Date TSH 2.83 04/10/2025 Pancreatitis Lab Results Component Value Date AMYLASE 451 (H) 04/10/2025 LIPASE 460 (H) 04/10/2025 CALCIUM 7.9 (L) 04/10/2025 ASSESSMENT AND PLAN 49-year-old female with a history of COPD, GERD, IBS, hypothyroidism, asthma, depression, anxiety, PTSD, osteoarthritis, and remote cholecystectomy presented with postprandial epigastric pain radiating to [...] EKG showed QTc prolongation (505 ms). 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 Clinical presentation: Severe, continuous epigastric pain radiating to back, nausea, vomiting, inability to tolerate PO, and constipation. Labs: Elevated lipase (2,510 U/L), amylase (1,143 U/L), leukocytosis (WBC 22.73, ANC 20.89); normal liver chemistries and bilirubin; Cr 0.36. Imaging: Confirmed acute interstitial pancreatitis without necrosis. Post-ERCP course: Returned to ED next day with symptoms consistent with mild-moderate acute pancreatitis per revised Lisa classification. Management: Conservative--NPO, IV fluids, antiemetics (Tigan due to prolonged QTc), monitoring of vitals and electrolytes. (more content not included)... [facility] 04-10-2025 Note Blood pressure likel y more elevated due to acute pain. Continue IV Lopressor every 8 hours while patient is NPO. [facility] 04-10-2025 Note Calcium supplementation ordered [facility] 04-10-2025 Note Nutrition following [place] [facility] 04-10-2025 Note - patient is 2 days s/p ERCP - patient reports nausea and multiple episodes of vomiting. Patient also has dyspepsia and is burping a lot. Patient currently NPO - pain is being controlled by dilaudid 1 mg IV, every 3 hours PRN - Administer IV fluids to help with acute pancreatitis [facility] 04-10-2025 Note - [facility]ation [facility] Note Likely type II deman d ischemia in the setting of acute pancreatitis. [facility] 04-10-2025 Note - Continue Tigan due to prolonge d QT [facility] 04-10-2025 Note Hospital Medicine Daily Progress Note - 04/10/2025 11:09 AM; Room: [address] [place] [address] Admission: 04/09/2025 7:35 AM; Length of stay: 1 days THE HOSPITALIST TEAM PREFERS TO USE [employer] FOR NON-URGENT COMMUNICATION 7AM-7PM. IF I DO NOT RESPOND WITHIN 20 MINUTES OR URGENT MATTERS, PLEASE CALL THROUGH THE ASSEMBLY LINE MACHINE OPERATOR. FROM 7PM-7AM, PLEASE PAGE [phone](COVR). Code Status: Full Code Barriers to Discharge: [...] TSH 2.83 04/10/2025 No results found for: [id number] , IRON , TIBC , C3 , C4 , NOE , CAN (more content not included)... [facility] 04-09-2025 Note Adult Nutrition Asse ssment: Name: Kati Thorne Date: 1975 Date of Visit: 04/09/25 Admission Dx: Acute pancreatitis due to systemic disease [K85.90] Reason for assessment: high risk Information obtained from: patient and medical record Past Medical History: Diagnosis Date Anxiety Arthritis Asthma COPD (chronic obstructive pulmonary disease) ([facility]) Depression GERD (gastroesophageal reflux disease) Hypothyroidism Irritable [...] NA 137 04/09/2025 0924 K 2.9 (LL) 04/09/2025 09 HGB 14.7 04/09/2025 09 WBC 22.73 (H) 04/09/2025 09 Allergies: No Known Allergies Nutrition Problems: Swallowing [...] actual body weight (45.8 kg) Calorie needs: 9491-4722 kcals/day based on Equation: 25-30 kcal/kg Protein [...] as needed, monitor/check (more content not included)... [facility] 04-09-2025 Note S/p ERCP suspect pos t ERCP Pancreatitis ,Pain control n.p.o. 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 IV fluids and use Tigan because of prolonged QTc interval on telemetry around [facility] 05-29-2025 Note Suspect from pancrea titis stress of pain because of marked leukocytosis. Consider repeating CT scan if increased white blood count or worsening pain or change in status will hydrate patient and recheck CBC also will check LFTs lipase coagulation panel consider either repeating CT scan of the abdomen or MRCP [facility] 04-09-2025 Note Hospital Medicine History and Physical 04/09/2025 7:51 AM THE HOSPITALIST TEAM PREFERS TO USE [employer] FOR NON-URGENT COMMUNICATION 7AM-7PM. IF I DO NOT RESPOND WITHIN 20 MINUTES OR URGENT MATTERS, PLEASE CALL THROUGH THE ASSEMBLY LINE MACHINE OPERATOR. FROM 7PM-7AM, PLEASE PAGE [phone](COVR). Chief Complaint No chief complaint on file. History of Present Illness Kati Thorne is an 49 y.o. female admitted from [facility] presented with uncontrolled ongoing abdominal pain mainly in the upper abdomen described as continuous sharp worse with eating radiating to back associated with persistent nausea vomiting had intermittent dyspepsia denies hematemesis blood in bowels coffee-ground emesis had constipation and had not moved bowel movements in past 3 days denies any dysuria hematuria fever chills chest pains. Patient was discharged from [facility] on 04/08/2025 after undergoing ERCP with biliary [...] an Zofran she had labs done at [facility] which showed WBC 25.6 hemoglobin 15.4 hematocrit [...] telemetry around COPD (chronic obstructive pulmonary disease) ([facility]) Bronchodilators tobacco cessation nicotine replacement Tobacco abuse Counseling Tobacco replacement Primary hypertension With elevated blood pressure and tachycardia pain control put her on metoprolol (more content not included)... [facility] 04-08-2025 Note Patient: Kati Thorne Procedure Summary Date: 04/08/25 Room / Location: [facility] Anesthesia Start: 858 Anesthesia Stop: 1020 Procedure: ENDOSCOPIC RETROGRADE CHOLANGIOPANCREATOGRAPHY Diagnosis: Recurrent biliary colic Scheduled Providers: Roscoe Saucedo MD; Titus Little MD; ELLIOTT Kong Responsible [...] per anesthesia protocol. No notable events documented. [facility] 04-08-2025 Note Airway Date/Time: 04/08/2025 9:05 AM Urgency: elective Airway not difficult General Information and Staff Patient location during procedure: OR Anesthesiologist: Titus Little MD Resident/WATCH DIAL MAKER/CAA: ELLIOTT Kong Performed: resident/WATCH DIAL MAKER/CAA Indications and Patient Condition Indications for airway [...] 1 Number of other approaches attempted: 0 [facility] 04-08-2025 Note Patient: Kati Thorne Procedure Information Date/Time: 04/08/25 0945 Scheduled providers: Roscoe Saucedo MD; Titus Little MD; ELLIOTT Kong Procedure: ENDOSCOPIC RETROGRADE CHOLANGIOPANCREATOGRAPHY Location: [facility] Relevant Problems Anesthesia (within normal limits) [...] Plan discussed with CAA. Additional Equipment Requests [facility] 04-01-2025 Note Procedure notes and results given to Dr. Saucedo for review and recommendations [facility] 03-30-2025 Note Patient calls today stating she had procedure two weeks ago with Dr. Saucedo and was told to call if symptoms continued. EUS completed 03/11/2025. Patient states that she continues to have epigastric pain, nausea and diarrhea with urgency which has caused some incontinence. Please aadvise [facility] 03-18-2025 Note EGD/EUS procedure no te along with biopsy results faxed to referring office of Dr. Arias, attn: Christin at [phone] [facility] 03-18-2025 History of Present illness Narrative [...] Evans Thomas DPM documented in this encounter [facility] 03-11-2025 Note Patient: Kati Thorne Procedure Summary Date: 03/11/25 Room / Location: [facility] Anesthesia Start: 926 Anesthesia Stop: 1020 Procedure: EUS (UPPER) W/ EGD Diagnosis: Dilated cbd, acquired Scheduled Providers: Roscoe Saucedo MD; Titus Little MD; ELLIOTT Romo Responsible [...] no known notable events for this encounter. [facility] 03-11-2025 Note Patient: Kati Thorne Procedure Information Date/Time: 03/11/25 0945 Scheduled providers: Roscoe Saucedo MD; Titus Little MD; ELLIOTT Romo Procedure: EUS (UPPER) W/ EGD Location: [facility] Relevant Problems Anesthesia (within normal limits) [...] risks discussed with patient. Plan discussed with ELLIOTT. Additional Equipment Requests [facility] 02-25-2025 Note 03/06/25@1200 Larry Waller had called back with a different phone # of [phone] and message left for patient to call and schedule a procedure. 02/27/25@ 2072 Again, attempted to reach patient to schedule and EUS, but the call could not be completed as dialed. Emergency contact listed is Luis Manuel at [phone], voice mail is full. 02/25/25 Attempted to reach patient to schedule and EUS with Dr. Roscoe Saucedo, see referral in media tab from Dr. Arias's office dated 01/31/25, but call is not able to be completed the times I have called her. Called Christin patient relations coordinator and message left is she has an alternate phone #. In the meantime will mail her a letter. [facility] 07-11-2024 Note Admission Informatio n Patient: [...] less than 30 minutes Medications New Medications [facility], [address] [place] [id number], [phone] cefdinir (cefdinir 300 mg oral capsule) 1 [...] by Vikram Mckenna MD 07/11/24 11:37 EDT [facility] 07-10-2024 Note Chief Complaint bp around 190s [...] this time too much in pain --will legal counsel in am discussion pain control , [...] hydrALAZINE, 10 mg= 0.5 mL, IV Push, [id number] Times, PRN LR 1,000 mL, 1000 mL, [...] Digit Right 07/10/24 16:56:32 IMPRESSION: Signed By: Zeke RAMIREZ, Jacklyn Ordonez Electronically signed by Bala RAMIREZ Demarcolakshmi 07/10/24 19:12 EDT [facility] 07-10-2024 Note Clinical Information Procedure: RIGHT INDEX [...] right index finger, excision: Consistent with osteomyelitis. [id number] Raul Davidson MD PhD (Electronically signed by) Verified: 07/16/24 13:53 [facility] Comment on above: Performed By: #### [facility] #### [facility] (DEFAULT) [address] [place] [address] [facility] [address] [place] [address] 03-05-2023 Note PROCEDURE: XR HAND R T [...] authenticated by: FRANCES AGUSTIN Date: 2023-03-05 11:36 [facility] 08-30-2022 Note PROCEDURE: XR HUMERU S [...] authenticated by: FRANCES AGUSTIN Date: 2022-08-30 10:20 [facility] 08-30-2022 Note PROCEDURE: XR HUMERU S [...] authenticated by: FRANCES AGUSTIN Date: 2022-08-30 10:20 [facility] 06-22-2022 Note PROCEDURE: XR WRIST LT [...] authenticated by: RJ PEREZ Date: 2022-06-22 07:13 [facility] 06-22-2022 Note PROCEDURE: XR WRIST LT [...] authenticated by: RJ PEREZ Date: 2022-06-22 07:13 [facility] Evaluation note No assessment information availa [facility] Work Phone: Evaluation note Diagnosis Contusion of left great toe with damage to nail, initial encounter- Primary Onychodystrophy Other specified disease of nail Left foot pain Pain in soft tissues of limb documented in this encounter [facility] Additional Instructions Follow-up with your surgeon for further evaluation or pain medication.[facility] [employer] Work Phone: Reason for referral (narrative)No reason for referral information availableC[facility] Work Phone: Summary Purpose Family History No [...] Visit Chief Complaint rt index finger pain Chief Complaint Admit Date Unknown May 25, 2025 8:13 pm Additional Source Comments INFORMATION SOURCE (unrecogn ized section and content) DATE CREATED AUTHOR 10/24/2022 Soham Syed [facility] DATE CREATED AUTHOR AUTHOR'S ORGANIZ ATION 03/24/2023 [facility] DATE CREATED AUTHOR AUTHOR'S ORGANIZ ATION 07/04/2024 [facility] DATE CREATED AUTHOR AUTHOR'S ORGANIZ ATION 11/07/2024 [facility] DATE CREATED AUTHOR AUTHOR'S ORGANIZ ATION 03/21/2025 [facility] EPIC DATE CREATED AUTHOR AUTHOR'S ORGANIZ ATION 05/30/2025 [facility] DATE CREATED AUTHOR AUTHOR'S ORGANIZ ATION 06/06/2025 [facility] Care Teams (unrecognized sec tion and content) [...] August 13, 2024 End: August 13, 2024 [employer] Relationship Specialty Start Date End Date Vani Spivey MD [address] [place] [id number] PCP - General Family Medicine 03/18/25 [employer] Relationship Specialty Start Date End Date Vani Spivey MD [address] [place] [id number] PCP - General Family Medicine 03/18/25 Team Status: Inactive Member Role Status Dates Shanta Tripathi DO Attending Provider Active Start: May 25, 2025 End: May 25, 2025 Goals (unrecognized section and content) Goals may be documented in a n alternate sectionGoals may be documented in an alternate section Reason for Visit (unrecogniz ed [...] BE BASED ON THE PRIMARY CLINICAL RECORDS. [facility] provides no warranty or guarantee of the accuracy or completeness of information in this document.
--- NOTE | 2025-08-20 20:29 | PC.NURSE ---
left side back pain, pt first places her hand on tailbone when this nurse asked where the pain is and and then pt changes the pain to left side mid back pain. NO redness, bruising, rash and skin intact at site of complaint.
--- NOTE | 2025-08-20 20:33 | CT_ITS ---
The [address] [address] Patient Name: SULY THORNE MRN: [id number] date: 1975 Sex: F Assigned Patient Location: ER Current Patient Location: ER Accession/Order Number: [id number] Exam Date: 08/20/2025 20:40 Report Date: 08/20/2025 21:11 At the request of: DE BELLA Procedure: CT abdomen pelvis wo con CT ABDOMEN AND PELVIS WITHOUT INTRAVENOUS CONTRAST: CLINICAL HISTORY: Left Back/Flank pain COMPARISON: 05/25/2025 TECHNIQUE: Spiral images were obtained through the abdomen and pelvis without intravenous contrast. This CT exam was performed using one or more following dose reduction techniques: Automated exposure control, adjustment of the mA and/or kV according to patient size, or use of iterative reconstruction technique. FINDINGS: Lung Bases: [No focal opacity.] Organs:Cholelithiasis. Residual pneumobilia. Stable right hepatic lobe density likely a cyst. Punctate left upper pole calculus, nonobstructive. No hydronephrosis. Otherwise spleen, adrenals, kidneys, pancreas unremarkable. GI: Mild to moderate retained stool. No bowel obstruction.[ Pelvis:[Bladder is mildly distended. Uterus absent. No adnexal mass.] Peritoneum/Retroperitoneum:No free air or free fluid. Aortic vascular calcifications.[No bulky adenopathy on this noncontrast examination. Abd wall/Bones:Degenerative changes lower cervical spine.[ CT/CT abdomen pelvis wo con IMPRESSION: Negative for obstructive uropathy. The left upper pole renal calculus, nonobstructive. Impression dictated by: Uday Flores M.D. 08/20/2025 9:11 PM Dictation Location: [place] [address] Electronically authenticated by: [id number] Y Date: 08/20/2025 21:11
--- NOTE | 2025-08-20 20:37 | ED.GENADUL1 ---
HPI HPI - General Adult General Chief complaint: Back Pain/Injury Stated complaint: back pain Time Seen by Provider: 08/20/25 20:18 Source: patient Mode of arrival: Wheelchair History of Present Illness HPI narrative: Patient is a 49-year-old female with a PMH of COPD and portal vein thrombosis on Eliquis that presents to the emergency department with complaints of left-sided back that started at approximately 4 PM today. She did try to take Tylenol and Robaxin at home without relief of her pain. She does have a history of kidney stones. She denies any recent fever, night sweats, chills, nausea, vomiting, or abdominal pain. She also denies any urinary symptoms such as dysuria, urgency, frequency, or retention. She states she has not been urinating as much as normal. Related Data Home Medications ?Medication ?Instructions ?Recorded ?Confirmed budesonide-formoterol HFA 80 2 puff inhalation Q12H 01/01/25 08/20/25 mcg-4.5 mcg/actuation aerosol inhaler (Symbicort) gabapentin 300 mg capsule 600 mg PO BID 01/01/25 08/20/25 levothyroxine 25 mcg tablet 25 mcg PO DAILY 04/08/25 08/20/25 metoprolol tartrate 25 mg tablet 25 mg PO Q12H 04/08/25 08/20/25 pantoprazole 40 mg tablet,delayed 40 mg PO DAILY 04/08/25 08/20/25 release apixaban 5 mg tablet (Eliquis) 5 mg PO BID 08/20/25 08/20/25 escitalopram oxalate 10 mg tablet 10 mg PO DAILY 08/20/25 08/20/25 methocarbamol 750 mg tablet 750 mg PO Q8H PRN muscle spasm 08/20/25 08/20/25 Previous Rx's ?Medication ?Instructions ?Recorded albuterol sulfate 90 mcg/actuation 2 inh inhalation Q4H PRN shortness 01/01/25 aerosol inhaler of breath or wheezing 7 days #8.5 grams methylprednisolone 4 mg tablets in 4 mg PO DAILY #21 ea 08/20/25 a dose pack (Medrol (Neno)) potassium chloride 20 mEq 20 meq PO BID 7 days #14 tabs 08/20/25 tablet,extended release Allergies Allergy/AdvReac Type Severity Reaction Status Date / Time No Known Drug Allergies Allergy Verified 05/25/25 19:45 Opioid HPI Opioid Management Most Recent Opioid Data: Last Pain Scale 7 08/20/25, 22:02 Risks, benefits, and alternatives of opioids discussed: Yes Opioid side effects: constipation, sedation, cognitive deficits and nausea Prescription drug monitoring program results: PDMP reviewed and no issues identified Review of Systems ROS Status of ROS 10 or more systems reviewed and unremarkable except as noted in history and below [facility] Medical History Full dentures ?Z97.2 - Presence of dental prosthetic device (complete) (partial) (ICD-10) ?K08.109 - Complete loss of teeth, unspecified cause, unspecified class (ICD-10) Neck pain ?M54.2 - Cervicalgia (ICD-10) Depression ?F32.A - Depression, unspecified (ICD-10) Anxiety ?F41.9 - Anxiety disorder, unspecified (ICD-10) Asthma ?J45.909 - Unspecified asthma, uncomplicated (ICD-10) Chronic obstructive pulmonary disease ?J44.9 - Chronic obstructive pulmonary disease, unspecified (ICD-10) Migraine ?G43.909 - Migraine, unspecified, not intractable, without status migrainosus (ICD-10) Kidney stones ?N20.0 - Calculus of kidney (ICD-10) GERD (gastroesophageal reflux disease) ?K21.9 - Gastro-esophageal reflux disease without esophagitis (ICD-10) Hypothyroidism ?E03.9 - Hypothyroidism, unspecified (ICD-10) Hiatal hernia ?K44.9 - Diaphragmatic hernia without obstruction or gangrene (ICD-10) Colon polyp ?K63.5 - Polyp of colon (ICD-10) Ovarian cyst ?N83.209 - Unspecified ovarian cyst, unspecified side (ICD-10) Endometriosis ?N80.9 - Endometriosis, unspecified (ICD-10) Hypertension ?I10 - Essential (primary) hypertension (ICD-10) Back pain ?M54.9 - Dorsalgia, unspecified (ICD-10) Chronic neck pain ?M54.2 - Cervicalgia (ICD-10) ?G89.29 - Other chronic pain (ICD-10) Open fracture of right hand ?S62.91XB - Unspecified fracture of right wrist and hand, initial encounter for open fracture (ICD-10) Anxiety and depression ?F41.9 - Anxiety disorder, unspecified (ICD-10) ?F32.A - Depression, unspecified (ICD-10) HTN (hypertension) ?I10 - Essential (primary) hypertension (ICD-10) Bulging of cervical intervertebral disc ?M50.30 - Other cervical disc degeneration, unspecified cervical region (ICD-10) Osteoporosis ?M81.0 - Age-related osteoporosis without current pathological fracture (ICD-10) Surgical History History of tonsillectomy ?Z90.89 - Acquired absence of other organs (ICD-10) History of colonoscopy ?Z98.890 - Other specified postprocedural states (ICD-10) History of esophagogastroduodenoscopy (EGD) ?Z98.890 - Other specified postprocedural states (ICD-10) History of laparoscopy ?Z98.890 - Other specified postprocedural states (ICD-10) History of appendectomy ?Z90.49 - Acquired absence of other specified parts of digestive tract (ICD-10) History of hysterectomy ?Z90.710 - Acquired absence of both cervix and uterus (ICD-10) History of cholecystectomy ?Z90.49 - Acquired absence of other specified parts of digestive tract (ICD-10) Family History Other Brain tumor Cancer Family history of aneurysm Family history of diabetes mellitus Family history of hypertension Social History Within the past year, how often did you have a drink containing alcohol: never Score interpretation: A score less than 3 is consistent with normal alcohol consumption. Smoking status: Current every day smoker What tobacco products do you use: cigarettes Cigarettes per day: 30 Years smoked: 36 Smoking pack-years: 54.00 Non-prescribed substance use: cannabis (any form) Highest level of school completed/degree received: 11th grade Little interest or pleasure in doing things: not at all Feeling down, depressed, or hopeless: not at all Exam Narrative Exam Narrative: General: No distress, age-appropriate Skin: Warm, dry, no pallor. No rash. Head: Normocephalic, atraumatic. Neck: Supple, non-tender. Eye: Pupils are equal, round and EOMI. No scleral icterus. Ears, Nose, Mouth, and Throat: No nasal mucosal hypertrophy. Oral mucosa is moist, no posterior oropharynx erythema, uvula is mid-line Cardiovascular: Regular Rate and Rhythm without murmur, gallop or rub. Respiratory: No accessory muscle use or respiratory distress. Lungs are clear to auscultation, no wheezing, rales or rhonchi Chest Wall: no tenderness Back: No midline thoracic tenderness, midline lumbar vertebral tenderness and left-sided CVA tenderness. Musculoskeletal: Full ROM of all extremities, no calf or popliteal tenderness. 5/5 strength bilateral lower extremities. Sensation intact distally bilateral lower extremities. GI: Abdomen is soft, non-distended, non tender to palpation. No masses appreciated. No rebound, guarding, or rigidity noted. Neurological: A&O x4. No cranial nerve dysfunction observed. No truncal ataxia. Moves all extremities. Sensation intact. Psychiatric: Cooperative and interactive. Normal mood and affect. Constitutional Vital Signs, click to edit/add: Last Vital Signs Temp 98.6 F 08/20/25 20:20 Pulse 66 08/20/25 21:44 Resp 16 08/20/25 21:44 BP 129/80 08/20/25 21:44 Pulse Ox 97 08/20/25 21:44 O2 Del Method Room Air 08/20/25 20:20 Documenting provider has reviewed patient's vital signs: yes Course Vital Signs Vital signs: Vital Signs Temperature 98.6 F 08/20/25 20:20 Pulse Rate 77 08/20/25 20:20 Respiratory Rate 20 08/20/25 20:20 Blood Pressure 166/105 H 08/20/25 20:20 Pulse Oximetry 100 08/20/25 20:20 Oxygen Delivery Method Room Air 08/20/25 20:20 Temperature 98.6 F 08/20/25 20:20 Pulse Rate 66 08/20/25 21:44 Respiratory Rate 16 08/20/25 21:44 Blood Pressure 129/80 08/20/25 21:44 Pulse Oximetry 97 08/20/25 21:44 Oxygen Delivery Method Room Air 08/20/25 20:20 Medical Decision Making MDM Narrative Medical decision making narrative: This is a 49-year-old female well-known to this emergency department that presents with complaints of left-sided back pain that radiates into her left buttock that started about 4 hours prior to arrival. Patient has a known history of kidney stones. She did try to take Tylenol and Robaxin prior to arrival without relief of her pain. Patient has had no nausea, vomiting, fever, night sweats, or chills. She states she cannot stand up straight secondary to the pain. She did arrive via private vehicle. She has a past surgical history of cholecystectomy, appendectomy, hysterectomy, and bilateral oophorectomy. On her last CT abdomen/pelvis on 05/25/25 there was note of simple cyst in the left renal cortex requiring, no note of stones in the kidneys or ureters. There was also a thrombus within the portal veins in the left hepatic lobe and patient was transferred to [facility]. She was started on Eliquis for this. On arrival patient is laying on her right side holding the left side of her back, in no distress. Blood pressure is hypertensive, vital stable. Patient is afebrile temperature is 98.6. Patient is at 100% O2 saturations on room air. IV placed. CBC, BMP, UA ordered. 0.[address] abdomen/pelvis without contrast ordered. CT abdomen/pelvis:Punctate left upper pole calculus, nonobstructive. No hydronephrosis. Labs: No leukocytosis on CBC, WBC 9.8, no anemia Hgb 15.2. UA negative. CMP with K of 2.7. Will replace with 50 mill equivalents. I did discuss patient's CT and lab results with her and plan for discharge home with multimodal pain control. Her pain is more consistent with a lumbar radiculopathy as it does go into her left buttock. Patient appears more comfortable and requests more pain medication so that she can sleep tonight. I did give her another 0.5 mg of Dilaudid. She does have degenerative disc disease as reviewed by myself on her CT scan, worst at L5-S1. We did discuss multimodal pain control. She is not a great candidate for NSAIDs given she is on Eliquis for the hepatic thrombus. She is already on gabapentin and I recommended this as part of her regimen. She will take Tylenol, gabapentin, Robaxin, and I am going to prescribe her a Medrol Dosepak and a weeks worth of potassium chloride 20 mill equivalents twice daily for a week. She is not exhibiting any red flag symptoms such as lower extremity weakness, saddle anesthesia, bowel or bladder incontinence/retention, we did talk about these symptoms return precautions. Patient's pain was controlled and she was discharged with plan for close follow-up with her PCP, she will talk with her PCP about getting back on Potassium replacement as well. She is starting physical therapy next week for her neck and back. Differential Diagnosis Differential Diagnosis: Nephrolithiasis, ureteral obstruction/hydronephrosis, retroperitoneal hemat Lab Data Lab results reviewed: Yes I reviewed the patient's lab results Labs: Lab Results 08/20/25 08/20/25 Range/Units 20:53 21:00 WBC 9.8 (4.0-11.0) 10^3/uL RBC 5.00 (4.20-5.40) 10^6/uL Hgb 15.2 (12.0-16.0) g/dL Hct 45.5 (36.0-48.0) % MCV 91.0 (81.0-99.0) fL MCH 30.4 (26.7-34.0) pg MCHC 33.4 (29.9-35.2) g/dL RDW 13.6 (11.0-15.0) % Plt Count 216 (150-450) 10^3/uL MPV 9.8 (9.5-13.5) fL Neut % (Auto) 65.3 (43.0-75.0) % Lymph % (Auto) 27.4 (20.5-60.0) % [place] % (Auto) 5.9 (1.7-12.0) % Eos % (Auto) 0.8 L (0.9-7.0) % Baso % (Auto) 0.3 (0.2-2.0) % Neut # (Auto) 6.4 (1.4-6.5) 10^3/uL Lymph # (Auto) 2.7 (1.2-3.8) 10^3/uL [place] # (Auto) 0.6 (0.3-0.8) 10^3/uL Eos # (Auto) 0.1 (0.0-0.7) 10^3/uL Baso # (Auto) 0.0 (0.0-0.1) 10^3/uL Abs Immat Gran (auto) 0.03 (0.00-0.03) 10^3/uL Imm/Tot Granulo (auto) 0.3 (0.0-0.5) % Sodium 146 H (136-145) mmol/L Potassium 2.7 L* (3.5-5.1) mmol/L Chloride 103 (98-107) mmol/L Carbon Dioxide 33.6 H (21.0-32.0) mmol/L Anion Gap 12.1 BUN 3.0 L (7.0-18.0) mg/dL Creatinine 0.65 (0.55-1.02) mg/dL Est GFR ( Amer) >60 (>=60 mL/min/1.73m^2) Est GFR (Non-Af Amer) >60 (>=60 mL/min/1.73m^2) BUN/Creatinine Ratio 4.6 Glucose 63 L (74-106) mg/dL Calcium 8.9 (8.5-10.1) mg/dL Urine Color Lt. yellow (YELLOW) Urine Clarity Clear (CLEAR) Urine pH 6.5 (5.0-9.0) Ur Specific [place] <=1.005 A (1.005-1.025) Urine Protein Negative (NEG/TRACE) mg/dL Urine Glucose (UA) Negative (NEGATIVE) mg/dL Urine Ketones Negative (NEGATIVE) mg/dL Urine Occult Blood Negative (NEGATIVE) Urine Nitrite Negative (NEGATIVE) Urine Bilirubin Negative (NEGATIVE) Urine Urobilinogen 0.2 (0.2-1.0) EU/dL Ur Leukocyte Esterase Negative (NEGATIVE) Imaging Data CT scan - abdomen: Attestation: I have reviewed the pertinent imaging results. Radiologist's impression: ITS Impressions Abdomen/Pelvis CT 08/20/25 20:33 IMPRESSION: Negative for obstructive uropathy. The left upper pole renal calculus, nonobstructive. Impression dictated by: Uday Flores M.D. 08/20/2025 9:11 PM Dictation Location: [place] [address] Electronically authenticated by: [id number] Y Date: 08/20/2025 21:11 Discharge Plan Discharge Chief Complaint: Back Pain/Injury Clinical Impression: Left lumbar pain Patient Disposition: Home, Self-Care Time of Disposition Decision: 21:43 Condition: Good Mode of Transportation: EMS Prescriptions / Home Meds: New methylprednisolone [Medrol (Neno)] 4 mg tablets,dose pack 4 mg PO DAILY Qty: 21 0RF potassium chloride 20 mEq tablet extended release 20 meq PO BID 7 Days Qty: 14 0RF No Action levothyroxine 25 mcg tablet 25 mcg PO DAILY metoprolol tartrate 25 mg tablet 25 mg PO Q12H pantoprazole 40 mg tablet,delayed release (DR/EC) 40 mg PO DAILY Eliquis 5 mg tablet 5 mg PO BID escitalopram oxalate 10 mg tablet 10 mg PO DAILY methocarbamol 750 mg tablet 750 mg PO Q8H PRN (Reason: muscle spasm) gabapentin 300 mg capsule 600 mg PO BID budesonide-formoterol [Symbicort] 80-4.5 mcg/actuation HFA aerosol inhaler 2 puff INHALATION Q12H albuterol sulfate 90 mcg/actuation HFA aerosol inhaler 2 inh inhalation Q4H PRN (Reason: shortness of breath or wheezing) 7 Days Qty: 8.5 0RF Print Language: Peruvian Instructions: Acute Low Back Pain (ED) Referrals: Vani Spivey MD [Primary Care Provider] - 1 week Discharge Date/Time: 08/20/25 22:19
[2025-08-20] MEDS: HYDROMORPHONE HCL 0.5 MG/0.5 ML SYRINGE IV ×2 (21:03→22:02)
[2025-08-20] MEDS: 0.9 % SODIUM CHLORIDE 1,000 ML 1000 ML IV (21:03)
[2025-08-20 21:09] LABS: Hematocrit 45.5 % (36.0-48.0); Hemoglobin 15.2 g/dL (12.0-16.0); Immature Granulocytes Abs Auto 0.03 10^3/uL (0.00-0.03); Immature Granulocytes Pct Auto 0.3 % (0.0-0.5); Lymphocytes Absolute Auto 2.7 10^3/uL (1.2-3.8); Mean Corpuscular HGB Conc 33.4 g/dL (29.9-35.2); Mean Corpuscular Hemoglobin 30.4 pg (26.7-34.0); Mean Corpuscular Volume 91.0 fL (81.0-99.0); Platelet Count 216 10^3/uL (150-450); Red Blood Count 5.00 10^6/uL (4.20-5.40); White Blood Count 9.8 10^3/uL (4.0-11.0)
[2025-08-20 21:10] LABS: Glucose Urine UA NEGATIVE (NEGATIVE)
[2025-08-20 21:21] LABS: Anion Gap 12.1; Blood Urea Nitrogen 3.0 mg/dL (7.0-18.0); Calcium 8.9 mg/dL (8.5-10.1); Carbon Dioxide 33.6 mmol/L (21.0-32.0); Chloride 103 mmol/L (98-107); Estimated GFR (African America >60 (>=60 mL/min/1.73m^2); Estimated GFR (Non-African Ame >60 (>=60 mL/min/1.73m^2); Glucose 63 mg/dL (74-106); Sodium 146 mmol/L (136-145)
[2025-08-20 21:22] VITALS: PULSE 83; O2SAT 97
[2025-08-20 21:24] LABS: Potassium 2.7 mmol/L (3.5-5.1)
[2025-08-20 21:44] VITALS: BP 129/80; PULSE 66; O2SAT 97
[2025-08-20] MEDS: POTASSIUM BICARBONATE/CIT 25 MEQ TABLET EFF 50 MEQ PO (22:02)
== END 2025-08-20 22:19 | disposition home or self-care (01) ==
PROVIDERS: Physician Assistant; Emergency Provider Emergency Medicine; PCP Family Medicine
DX: M54.50 Low back pain, unspecified (principal); J44.9 Chronic obstructive pulmonary disease, unspecified; Z79.01 Long term (current) use of anticoagulants; I81 Portal vein thrombosis; Z87.442 Personal history of urinary calculi; F17.210 Nicotine dependence, cigarettes, uncomplicated; Z90.49 Acquired absence of other specified parts of digestive tract; Z90.710 Acquired absence of both cervix and uterus; Z90.722 Acquired absence of ovaries, bilateral
CPT/HCPCS: 36415; 74176; 80048; 81003; 85025; 96374; 96376; 99285; J1171

== ENCOUNTER 2025-08-21 11:11 | Outpatient (OUT) | payer OTHER, SELFPAY ==
--- OUTSIDE RECORDS SUMMARY | 2025-08-21 11:17 | XMS_ITS | CCD ---
Author Organization [facility] Care Team Providers Care Preparator Name Role Phone Woo FALCON Attending Unavailable [...] SHAMMO, TATUM Primary Care Unavailable REINECK, DR PEIR Vazquez Admitting Unavailabl e REINECK, DR PERI [...] Admitting Unavailable [facility] Primary Care Unavailable KOBE HICKEY Consulting Unavailable MARKER ., DR MAX Attending Unavailable MARKER ., DR MAX Admitting Unavailable MARKER ., DR MAX Consulting Unavailable [facility] Primary Care Unavailable LEON, JIMMY Consulting Unavailable SHAMMO, TATUM Primary Care Unavailable SAI, VAUGHN Admitting Unavailable SAI, VAUGHN Attending Unavailable SAI, VAUGHN Consulting Unavailable WOO PAIGE Consulting Unavailable SHAMMO, TATUM Consulting Unavailable [facility] Primary Care Unavailable SAI, VAUGHN Admitting Unavailable SAI, VAUGHN Attending Unavailable BEAU, DR RJ Foster Consulting Unavailable HAY ., DR BIRD Consulting Unavailable SAI, VAUGHN Consulting Unavailable ALIA, CAROL ANN Admitting Unavailable ALIA, CAROL ANN Attending Unavailable [facility] Primary Care Unavailable SHAMMO, TATUM Admitting Unavailable SHAMMO, TATUM Attending Unavailable SHAMMO, TATUM Primary Care Unavailable SHAMMO, TATUM Consulting Unavailable [facility] Primary Care Unavailable LUIS EDUARDO, DR [...] Provider Unava ilable LEXI [facility]gs Emergency Provider [phone] Vikram Mckenna MD Attending Unavailable Vikram Mckenna MD Admitting Unavailable Unavailable, Physician Primary Care Unavailab Hayden Ferro DO Consulting Unavailjeremiah Spivey MD, Vani Chappell Primary Care Provider [phone] EVANS THOMAS Attending Unavailable Shanta Tripathi DO [...] Medication Allergies] Propensity to adverse reactions (disorder) [facility] Medications Current Medications Medication Drug Class(es) Dates Sig (Normalized) Sig (Original) [id number] 200 actuat albuterol 0.09 mg/actuat metered dose [...] 01-15-2023 Chronic Other aftercare (1 source) 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; Translations: [OTH RESIDENTIAL CURRENT DRUG THERAPY] Onset: 02-26-2023 Episodic Other [...] Range Facility Office Visiton 06-02-2025 Follow-up visit [id number] Kati Thorne 1975 F Date Provider Department Center 06/02/2025 [id number] [facility] [place] [facility] No family history on file Level of Service:21333 AR OFFICE/OUTPATIENT ESTABLISHED LOW MDM 20 MIN Reason for Visit and Comments: Hospital Follow-up [832] Normal [facility] AFP TUMOR MARKERon ALPHA FETOPROTEIN TUMOR MARKER 8 ng/mL Normal 0-9 [facility] Comment on above: Result Comment: INTE RPRETIVE INFORMATION: Alpha Fetoprotein Tumor Marker The Mindy [facility] Access DxI AFP method is used. Results [...] reference intervals for this test in the [facility] Laboratory Test Directory (M[employer]). Performed By: [employer] [address] [place] [id number] Administrative Services Coordinator: Claus Membreno MD, PhD CLIA Number: [id number] Performed By: #### L [id number] ####[facility] ([facility])[address] [place] [address] MR ABDOMEN W AND WO CONTRAST on [...] enhancing lesions. Electronically signed: Frances Elkins. Normal [facility] URINALYSIS WITH REFLEX CULTU REon 05-28-2025 BILIRUBIN, TOTAL PRESENCE IN URINE Negative Normal Negative [facility] Comment on above: Order Comment: Micro scopics not performed on urines with negative chemical reactions unless requested on original order. Performed By: #### L [id number] ####[facility] ([facility])[address] [place] [address] Clarity (U) Clear Normal Clear [facility] Comment on above: Order Comment: Micro scopics not performed on urines with negative chemical reactions unless requested on original order. Performed By: #### L [id number] ####[facility] ([facility])[address] [place] [address] Color (U) Light-Yellow Normal Colorless, Yellow, Light-Yellow [facility] Comment on above: Order Comment: Micro scopics not performed on urines with negative chemical reactions unless requested on original order. Performed By: #### L [id number] ####[facility] ([facility])[address] [place] [address] GLUCOSE (MG/DL) IN URINE Normal Normal Normal [facility] Comment on above: Order Comment: Micro scopics not performed on urines with negative chemical reactions unless requested on original order. Performed By: #### L [id number] ####[facility] ([facility])[address] [place] [address] HEMOGLOBIN PRESENCE IN URINE Negative Normal Negative [facility] Comment on above: Order Comment: Micro scopics not performed on urines with negative chemical reactions unless requested on original order. Performed By: #### L [id number] ####[facility] ([facility])[address] [place] [address] Ketones Ql (U) Trace Abnormal Negative [facility] Comment on above: Order Comment: Micro scopics not performed on urines with negative chemical reactions unless requested on original order. Performed By: #### L [id number] ####[facility] ([facility])[address] [place] [address] LEUKOCYTE ESTERASE PRESENCE IN URINE BY TEST STRIP Negative Normal Negative [facility] Comment on above: Order Comment: Micro scopics not performed on urines with negative chemical reactions unless requested on original order. Performed By: #### L [id number] ####[facility] ([facility])[address] [place] [address] NITRITE PRESENCE IN URINE Negative Normal Negative [facility] Comment on above: Order Comment: Micro scopics not performed on urines with negative chemical reactions unless requested on original order. Performed By: #### L [id number] ####[facility] ([facility])[address] [place] [address] pH (U) 7.0 [pH] Normal 5.0-8.0 [facility] Comment on above: Order Comment: Micro scopics not performed on urines with negative chemical reactions unless requested on original order. Performed By: #### L [id number] ####[facility] ([facility] [place] [address] Protein (U) [Mass/Vol] Negative Normal Negative [facility] Comment on above: Order Comment: Micro scopics not performed on urines with negative chemical reactions unless requested on original order. Performed By: #### L [id number] ####[facility] ([facility])[address] [place] [address] Specific gravity (U) [Rel density] 1.014 Normal 1.010-1.030 [facility] Comment on above: Order Comment: Micro scopics not performed on urines with negative chemical reactions unless requested on original order. Performed By: #### L [id number] ####[facility] ([facility])[address] [place] [address] UROBILINOGEN (MG/DL) IN URINE 2.0 mg/dL Abnormal Normal [facility] Comment on above: Order Comment: Micro scopics not performed on urines with negative chemical reactions unless requested on original order. Performed By: #### L [id number] ####[facility] ([facility])[address] , [place] [address] 30on 05-27-2025 30 Daily Case Managemen t [...] Consultation Consultation and Management 05/26/25 0505 Normal [facility] BASIC METABOLIC PANELon 07- Anion gap [Moles/Vol] 13 mmol/L Normal 7-20 [facility] Comment on above: Performed By: #### L [id number] #### [facility] ([facility]) [address] [place] [address] Calcium [Mass/Vol] 8.6 mg/dL Normal 8.6-10.3 [facility] Comment on above: Performed By: #### L [id number] #### [facility] ([facility]) [address] [place] [address] Chloride [Moles/Vol] 104 mmol/L Normal 98-107 [facility] Comment on above: Performed By: #### L [id number] #### [facility] ([facility]) [address] [place] [address] CO2 [Moles/Vol] 23 mmol/L Normal 21-31 [facility] Comment on above: Performed By: #### L [id number] #### [facility] ([facility]) [address] [place] [address] Creatinine [Mass/Vol] 0.48 mg/dL Low 0.60-1.20 [facility] Comment on above: Performed By: #### L [id number] #### [facility] ([facility]) [address] [place] [address] GLOMERULAR FILTRATION RATE ML/MIN/1.73 SQ M.PREDICTED 114.6 mL/min/1.73m*2 Normal >60.0 [facility] Comment on above: Result Comment: The [facility]???s estimated glomerular filtration rate (eGFR) will [...] group of individuals. Performed By: #### L [id number] #### [facility] ([facility]) [address] [place] [address] Glucose [Mass/Vol] 86 mg/dL Normal 70-100 [facility] Comment on above: Performed By: #### L [id number] #### [facility] ([facility]) [address] [place] [address] Potassium [Moles/Vol] 3.5 mmol/L Normal 3.5-5.1 [facility] Comment on above: Performed By: #### L [id number] #### [facility] ([facility]) [address] [place] [address] Sodium [Moles/Vol] 136 mmol/L Normal 136-145 [facility] Comment on above: Performed By: #### L [id number] #### [facility] ([facility]) [address] [place] [address] Urea nitrogen [Mass/Vol] 8 mg/dL Normal 7-25 [facility] Comment on above: Performed By: #### L [id number] #### [facility] ([facility]) [address] [place] [address] UREA NITROGEN/CREATININE (MASS RATIO) IN SER/PLAS 16.7 Normal [facility] Comment on above: Performed By: #### L [id number] #### [facility] ([facility]) [address] [place] [address] CBCon 05-27-2025 Erythrocyte distribution width (RBC) [Ratio] 13.5 % Normal 11.5-15.0 [facility] Comment on above: Performed By: #### L [id number] ####[facility] ([facility])[address] [facility] [address] ERYTHROCYTE MEAN CORPUSCULAR HEMOGLOBIN CONCENTRATION (G/DL) BY AUTOMATED 33.0 g/dL Normal 32.0-35.0 [facility] Comment on above: Performed By: #### L [id number] ####[facility] ([facility])[address] [place] [address] Hematocrit (Bld) [Volume fraction] 37.0 % Normal 36.0-45.0 [facility] Comment on above: Performed By: #### L [id number] ####[facility] ([facility])[address] [place] [address] Hemoglobin (Bld) [Mass/Vol] 12.2 g/dL Normal 12.0-15.0 [facility] Comment on above: Performed By: #### L [id number] ####[facility] ([facility])[address] [place] [address] MCH (RBC) [Entitic mass] 31.0 pg Normal 27.0-33.0 [facility] Comment on above: Performed By: #### L [id number] ####[facility] ([facility])[address] [place] [address] MCV (RBC) [Entitic vol] 94.1 fL Normal 82.0-98.0 [facility] Comment on above: Performed By: #### L [id number] ####[facility] ([facility])[address] [place] [address] PLATELETS (10*3/UL) IN BLOOD AUTOMATED COUNT 161 10*3/uL Normal 150-400 [facility] Comment on above: Performed By: #### L [id number] ####[facility] ([facility])[address] [place] [address] RBC (Bld) [#/Vol] 3.93 10*6/uL Normal 3.80-5.00 [facility] Comment on above: Performed By: #### L [id number] ####[facility] ([facility])[address] [place] [address] WBC (Bld) [#/Vol] 7.98 10*3/uL Normal 4.00-10.60 [facility] Comment on above: Performed By: #### L [id number] ####[facility] ([facility])[address] [place] [address] CONSULTon 05-27-2025 CONSULT --- Attestation signed by [...] 1PPD for 15 years. She presented to [facility] ED on 05/25/2025 for right sided abdominal pain with complaints of feeling feverish and fatigue that begun that day. She denies sick contacts or trauma. CT abdomen at [facility] showed left portal vein thrombosis she also had CT scan of the chest which showed no acute infiltrate but did show pneumobilia which was started on IV fluids morphine was given along with Toradol for pain electrolytes were replaced. She was then transferred to [facility]. Once here, She received heparin and underwent [...] OBJECTIVE D (more content not included)... Normal [facility] CT ABDOMEN PELVIS W IV CONTR [...] signed: Santos Sanderson. 9 Invalid Interpretation Code [facility] HEPATIC FUNCTION PANELon Albumin [Mass/Vol] 3.6 g/dL Normal 3.5-5.7 [facility] Comment on above: Performed By: #### L [id number] #### [facility] ([facility]) [address] [place] [address] ALP [Catalytic activity/Vol] 91 U/L Normal 34-104 [facility] Comment on above: Performed By: #### L [id number] #### [facility] ([facility]) [address] [place] [address] ALT [Catalytic activity/Vol] 5 U/L Low 7-52 [facility] Comment on above: Performed By: #### L [id number] #### [facility] ([facility]) [address] [place] [address] AST [Catalytic activity/Vol] 12 U/L Low 13-39 [facility] Comment on above: Performed By: #### L [id number] #### [facility] ([facility]) [address] [place] [address] Bilirubin [Mass/Vol] 0.8 mg/dL Normal 0.3-1.0 [facility] Comment on above: Performed By: #### L [id number] #### [facility] ([facility]) [address] [place] [address] Magnesium [Mass/Vol] 0.1 mg/dL Normal 0-0.2 [facility] Comment on above: Performed By: #### L [id number] #### [facility] ([facility]) [address] [place] [address] Protein [Mass/Vol] 6.6 g/dL Normal 6.0-8.3 [facility] Comment on above: Performed By: #### L [id number] #### [facility] ([facility]) [address] [place] [address] MAGNESIUMon 05-27-2025 Magnesium [Mass/Vol] 2.0 mg/dL Normal 1.9-2.7 [facility] Comment on above: Performed By: #### L [id number] ####[facility] ([facility])[address] [place] [address] 30on 05-26-2025 30 The patient is Moderately Stable - Low risk of patient condition declining or worsening The patient's goals for the shift include rest The clinical goals for the shift include vss Over the shift, the patient did not make progress toward the following goals. Barriers to progression include . Recommendations to address these barriers include . Normal [facility] 30 Daily Case Managemen t Update Multidisciplinary rounds have been completed. Barriers to Discharge: Pending clinical course and improvement in clinical condition. Transferred from [facility] where she presented with generalized abdominal pain. Recent admission at [facility] for epigastric abdominal pain has history of [...] Consultation Consultation and Management 05/26/25 0505 Normal [facility] 30 The patient is Moderately Stable - Low risk of patient condition declining or worsening The patient's goals for the shift include rest The clinical goals for the shift include vitals stable Over the shift, the patient did not make progress toward the following goals. Barriers to progression include . Recommendations to address these barriers include . Normal [facility] AMYLASEon 05-26-2025 Amylase [Catalytic activity/Vol] 65 U/L Normal 29-103 [facility] Comment on above: Performed By: #### L [id number] ####[facility] ([facility])[address] [place] [address] Amylase [Catalytic activity/Vol] 71 U/L Normal 29-103 [facility] Comment on above: Performed By: #### L [id number] #### [facility] ([facility]) [address] [place] [address] ANTI-XA (HEPARIN LEVEL)on HEPARIN UNFRACTIONATED (U/ML) IN PPP BY CHROMOGENIC METHOD <0.10 Invalid Interpretation Code 0.3-0.7 [facility] Comment on above: Order Comment: Check anti-Xa level every 6 hours while on heparin infusion, or per protocol. Result Comment: Holder roxaban and Apixaban will interfere with the anti Xa assay used to monitor UFH and LMWH. Performed By: #### L [id number] ####[facility] ([facility])[address] [place] [address] APTTon 05-26-2025 ACTIVATED PARTIAL THROMBOPLASTIN TIME IN PPP BY COAGULATION ASSAY 41.4 Seconds High 25.0-35.0 [facility] Comment on above: Order Comment: Basel ine aPTT before initiating heparin infusion. Result Comment: Clin ical significance of the APTT is questionable in the presence of heparin. Performed By: #### L [id number] ####[facility] ([facility])[address] [place] [address] BLOOD CULTUREon 05-26-2025 Bacteria identified Cx Nom (Bld) No growth at 5 days Normal [facility] Comment on above: Order Comment: From a different site than #1. Performed By: #### L [id number] ####[facility] ([facility])[address] [place] [address] CBC WITH AUTO DIFFERENTIALon 05-26-2025 Basophils (Bld) [#/Vol] 0.02 10*3/uL Normal 0.00-0.20 [facility] Comment on above: Performed By: #### L [id number] #### [facility] ([facility]) [address] [place] [address] Basophils/100 WBC (Bld) 0.3 % Normal 0.0-1.0 [facility] Comment on above: Performed By: #### L [id number] #### [facility] ([facility]) [address] [place] [address] Eosinophils (Bld) [#/Vol] 0.05 10*3/uL Normal 0.00-0.50 [facility] Comment on above: Performed By: #### L [id number] #### [facility] ([facility]) [address] [place] [address] Eosinophils/100 WBC (Bld) 0.7 % Normal 0.0-6.0 [facility] Comment on above: Performed By: #### L [id number] #### [facility] ([facility]) [address] [place] [address] Erythrocyte distribution width (RBC) [Ratio] 13.9 % Normal 11.5-15.0 [facility] Comment on above: Performed By: #### L [id number] #### [facility] ([facility]) [address] [place] [address] ERYTHROCYTE MEAN CORPUSCULAR HEMOGLOBIN CONCENTRATION (G/DL) BY AUTOMATED 32.2 g/dL Normal 32.0-35.0 [facility] Comment on above: Performed By: #### L [id number] #### [facility] ([facility]) [address] [place] [address] Hematocrit (Bld) [Volume fraction] 31.7 % Low 36.0-45.0 [facility] Comment on above: Performed By: #### L [id number] #### [facility] ([facility]) [address] [place] [address] Hemoglobin (Bld) [Mass/Vol] 10.2 g/dL Low 12.0-15.0 [facility] Comment on above: Performed By: #### L [id number] #### [facility] ([facility]) [address] [place] [address] Immature granulocytes (Bld) [#/Vol] 0.01 10*3/uL Normal 0.00-0.20 [facility] Comment on above: Performed By: #### L [id number] #### [facility] ([facility]) [address] [place] [address] Immature granulocytes/100 WBC (Bld) 0.1 % Normal 0.0-1.0 [facility] Comment on above: Performed By: #### L [id number] #### [facility] ([facility]) [address] [place] [address] Lymphocytes (Bld) [#/Vol] 1.39 10*3/uL Normal 1.20-4.00 [facility] Comment on above: Performed By: #### L [id number] #### [facility] ([facility]) [address] [place] [address] Lymphocytes/100 WBC (Bld) 20.7 % Normal 20.0-45.0 [facility] Comment on above: Performed By: #### L [id number] #### [facility] ([facility]) [address] [place] [address] MCH (RBC) [Entitic mass] 31.2 pg Normal 27.0-33.0 [facility] Comment on above: Performed By: #### L [id number] #### [facility] ([facility]) [address] [place] [address] MCV (RBC) [Entitic vol] 96.9 fL Normal 82.0-98.0 [facility] Comment on above: Performed By: #### L [id number] #### [facility] ([facility]) [address] [place] [address] Monocytes (Bld) [#/Vol] 0.45 10*3/uL Normal 0.10-1.00 [facility] Comment on above: Performed By: #### L [id number] #### [facility] ([facility] [address] [facility] [place] [address] Monocytes/100 WBC (Bld) 6.7 % Normal 5.0-12.0 [facility] Comment on above: Performed By: #### L [id number] #### [facility] ([facility]) [address] [place] [address] Neutrophils (Bld) [#/Vol] 4.78 10*3/uL Normal 1.60-7.60 [facility] Comment on above: Performed By: #### L [id number] #### [facility] ([facility]) [address] [place] [address] Neutrophils/100 WBC (Bld) 71.5 % Normal 40.0-72.0 [facility] Comment on above: Performed By: #### L [id number] #### [facility] ([facility]) [address] [place] [address] NRBC (PER 100 WBCS) BY AUTOMATED COUNT 0.0 % Normal 0 [facility] Comment on above: Performed By: #### L [id number] #### [facility] ([facility]) [address] [place] [address] PLATELETS (10*3/UL) IN BLOOD AUTOMATED COUNT 159 10*3/uL Normal 150-400 [facility] Comment on above: Performed By: #### L [id number] #### [facility] ([facility]) [address] [place] [address] RBC (Bld) [#/Vol] 3.27 10*6/uL Low 3.80-5.00 [facility] Comment on above: Performed By: #### L [id number] #### [facility] ([facility]) [address] [place] [address] WBC (Bld) [#/Vol] 6.70 10*3/uL Normal 4.00-10.60 [facility] Comment on above: Performed By: #### L [id number] #### [facility] ([facility]) [address] [place] [address] COMPREHENSIVE METABOLIC PANE Bernardo 05-26-2025 Albumin [Mass/Vol] 3.2 g/dL Low 3.5-5.7 [facility] Comment on above: Performed By: #### L [id number] ####[facility] ([facility] [place] [address] ALP [Catalytic activity/Vol] 86 U/L Normal 34-104 [facility] Comment on above: Performed By: #### L [id number] ####[facility] ([facility])[address] [place] [address] ALT [Catalytic activity/Vol] 8 U/L Normal 7-52 [facility] Comment on above: Performed By: #### L [id number] ####[facility] ([facility])[address] [place] [address] Anion gap [Moles/Vol] 6 mmol/L Low 7-20 [facility] Comment on above: Performed By: #### L [id number] ####[facility] ([facility])[address] [place] [address] AST [Catalytic activity/Vol] 10 U/L Low 13-39 [facility] Comment on above: Performed By: #### L [id number] ####[facility] ([facility])[address] [place] [address] Bilirubin [Mass/Vol] 1.1 mg/dL High 0.3-1.0 [facility] Comment on above: Performed By: #### L [id number] ####[facility] ([facility])[address] [place] [address] Calcium [Mass/Vol] 7.3 mg/dL Low 8.6-10.3 [facility] Comment on above: Performed By: #### L [id number] ####[facility] ([facility])[address] [place] [address] Chloride [Moles/Vol] 110 mmol/L High 98-107 [facility] Comment on above: Performed By: #### L [id number] ####[facility] [place] [address] CO2 [Moles/Vol] 26 mmol/L Normal 21-31 [facility] Comment on above: Performed By: #### L [id number] ####[facility] ([facility])[address] [place] [address] Creatinine [Mass/Vol] 0.52 mg/dL Low 0.60-1.20 [facility] Comment on above: Performed By: #### L [id number] ####[facility] ([facility])[address] [place] [address] GLOMERULAR FILTRATION RATE ML/MIN/1.73 SQ M.PREDICTED 112.4 mL/min/1.73m*2 Normal >60.0 [facility] Comment on above: Result Comment: [facility]???s estimated glomerular filtration rate (eGFR) will [...] of individuals. Performed By: #### L [id number] ####[facility] ([facility])[address] [place] [address] Glucose [Mass/Vol] 93 mg/dL Normal 70-100 [facility] Comment on above: Performed By: #### L [id number] ####[facility] ([facility])[address] [place] [address] Potassium [Moles/Vol] 3.9 mmol/L Normal 3.5-5.1 [facility] Comment on above: Performed By: #### L [id number] ####[facility] ([facility] [place] [address] Protein [Mass/Vol] 5.4 g/dL Low 6.0-8.3 [facility] Comment on above: Performed By: #### L [id number] ####[facility] ([facility] [place] [address] Sodium [Moles/Vol] 138 mmol/L Normal 136-145 [facility] Comment on above: Performed By: #### L [id number] ####[facility] ([facility])[address] [place] [address] Urea nitrogen [Mass/Vol] 5 mg/dL Low 06-05 [facility] Comment on above: Performed By: #### L [id number] ####[facility] ([facility])[address] [place] [address] UREA NITROGEN/CREATININE (MASS RATIO) IN SER/PLAS 9.6 Normal [facility] Comment on above: Performed By: #### L [id number] ####[facility] ([facility])[address] [place] [address] LIPASEon 05-26-2025 LIPASE (U/L) IN SER/PLAS 36 U/L Normal [facility] Comment on above: Performed By: #### L [id number] ####[facility] ([facility])[address] [place] [address] LIPASE (U/L) IN SER/PLAS 46 U/L Normal [facility] Comment on above: Performed By: #### L [id number] #### [facility] ([facility]) [address] [place] [address] PLATELET COUNTon 05-26-2025 PLATELETS (10*3/UL) IN BLOOD AUTOMATED COUNT 154 10*3/uL Normal 150-400 [facility] Comment on above: Performed By: #### L [id number] #### [facility] ([facility]) [address] [place] [address] Urine Cultureon 05-25-2025 Bacteria identified Cx Nom (U) 50,000 colonies/ml mixed bacterial skin contaminants 2 Days PERFORMED BY: [place] [address] PATHOLOGIST PROPERTY ASSESSMENT MONITOR ROBERTO EASTMAN M.D. Normal [facility] Comment on above: Performed By: #### C UU #### [place] [address] [place] HPon 05-07-2025 HP H&P reviewed. The patient was examined and there are no changes to the H&P. The patient is presenting today to have an upper endoscopy for removal of the pancreaticobiliary stents. [facility] NURSNOTEon 05-07-[address] Saucedo at bedsid e speaking with patient and patient family member Discharge instructions reviewed with patient father at bedside. All questions answered at this time Candis Marley RN PACU [facility] POCT GLUCOSE METER UNSOLICIT ED RESULTSon 05-07-2025 Glucose [Mass/Vol] 84 mg/dL Normal 70-105 [facility] Comment on above: Order Comment: Waive d Testing in the ED is performed under the ED CLIA certificate #[id number]. Result Comment: pbar retcorson Performed By: #### L [id number] #### [facility] ([facility]) [address] [place] [address] Prep for Procedureon 025 Prep for Procedure [id number] Kati Thorne 1975 Date Provider Department Center 05/07/2025 [facility] No family history on file [facility] Telephoneon 05-05-2025 Telephone [id number] Kati Thorne 1975 Date Provider Department Center 05/05/2025 [facility] No family history on file [facility] 30on 05-03-2025 30 The patient is Moderately [...] symptoms for stability, deterioration, or improvement Normal [facility] HPon 05-03-2025 HP --- Attestation signed [...] 5.9* B12/Folate/Iron studies: No results found for: [id number] , FOLATE , IRON , TIBC , UIBC , IRONSAT , FERRITIN Viral Hepatitis No results found for: HEPAIGM , HAV , HEPBSAG , HEPBSAB , HEPBEAB , HEPBIGM , HEPBCAB , HEPBCOREAB , HBVNAT , HCVSCR , HEPCAB , HCVNAT , HCVPCR , HCVTMA Liver workup No results found for: NOE , SMOOTHMUSCAB , CERULOPLSM , [id number] , TTGA , IGA , TSH , [...] am to 4 pm weekdays in house: [phone] 4 pm to 6 am or weekends: Please contact the nitric acid plant operator to page the fellow chief librarian extension department [facility] NURSNOTEon 05-03-2025 NURSNOTE Patient's AVS and discharge packet discussed with patient no further questions. Patient's IV and telemetry were removed. Patient's home medication, Symbicort was returned to the patient. [facility] delivered the patient's discharge medications. Patient left the floor via wheelchair and stated her family would provide transportation at time of discharge. [facility] 30on 05-02-2025 30 The patient is Moderately [...] comorbid symptoms for stability, deterioration, or improvement [facility] BASIC METABOLIC PANELon 06-2 Anion gap [Moles/Vol] 8 mmol/L Normal 7-20 [facility] Comment on above: Performed By: #### L [id number] #### [facility] ([facility]) [address] [place] [address] Calcium [Mass/Vol] 8.1 mg/dL Low 8.6-10.3 [facility] Comment on above: Performed By: #### L [id number] #### [facility] ([facility]) [address] [place] [address] Chloride [Moles/Vol] 103 mmol/L Normal 98-107 [facility] Comment on above: Performed By: #### L [id number] #### [facility] ([facility]) [address] [place] [address] CO2 [Moles/Vol] 32 mmol/L High 21-31 [facility] Comment on above: Performed By: #### L [id number] #### [facility] ([facility]) [address] [place] [address] Creatinine [Mass/Vol] 0.53 mg/dL Low 0.60-1.20 [facility] Comment on above: Performed By: #### L [id number] #### [facility] ([facility]) [address] [place] [address] GLOMERULAR FILTRATION RATE ML/MIN/1.73 SQ M.PREDICTED 111.9 mL/min/1.73m*2 Normal >60.0 [facility] Comment on above: Result Comment: [facility]???s estimated glomerular filtration rate (eGFR) will [...] individuals. Performed By: #### L [id number] #### [facility] ([facility]) [address] [place] [address] Glucose [Mass/Vol] 82 mg/dL Normal 70-100 [facility] Comment on above: Performed By: #### L [id number] #### [facility] ([facility]) [address] [place] [address] Potassium [Moles/Vol] 3.6 mmol/L Normal 3.5-5.1 [facility] Comment on above: Performed By: #### L [id number] #### [facility] ([facility]) [address] [place] [address] Sodium [Moles/Vol] 139 mmol/L Normal 136-145 [facility] Comment on above: Performed By: #### L [id number] #### [facility] ([facility]) [address] [place] [address] Urea nitrogen [Mass/Vol] 8 mg/dL Normal 7-25 [facility] Comment on above: Performed By: #### L [id number] #### [facility] ([facility]) [address] [facility] [place] [place] [address] UREA NITROGEN/CREATININE (MASS RATIO) IN SER/PLAS 15.1 Normal [facility] Comment on above: Performed By: #### L [id number] #### [facility] ([facility]) [address] [place] [address] CBC WITH AUTO DIFFERENTIALon 05-02-2025 Basophils (Bld) [#/Vol] 0.02 10*3/uL Normal 0.00-0.20 [facility] Comment on above: Performed By: #### L [id number] #### [facility] ([facility]) [address] [facility] [place] [place] [address] Basophils/100 WBC (Bld) 0.2 % Normal 0.0-1.0 [facility] Comment on above: Performed By: #### L [id number] #### [facility] ([facility]) [address] [place] [address] Eosinophils (Bld) [#/Vol] 0.08 10*3/uL Normal 0.00-0.50 [facility] Comment on above: Performed By: #### L [id number] #### [facility] ([facility]) [address] [place] [address] Eosinophils/100 WBC (Bld) 0.9 % Normal 0.0-6.0 [facility] Comment on above: Performed By: #### L [id number] #### [facility] ([facility]) [address] [place] [address] Erythrocyte distribution width (RBC) [Ratio] 13.2 % Normal 11.5-15.0 [facility] Comment on above: Performed By: #### L [id number] #### [facility] ([facility]) [address] [place] [address] ERYTHROCYTE MEAN CORPUSCULAR HEMOGLOBIN CONCENTRATION (G/DL) BY AUTOMATED 32.3 g/dL Normal 32.0-35.0 [facility] Comment on above: Performed By: #### L [id number] #### [facility] ([facility]) [address] [place] [address] Hematocrit (Bld) [Volume fraction] 29.7 % Low 36.0-45.0 [facility] Comment on above: Performed By: #### L [id number] #### [facility] ([facility]) [address] [place] [address] Hemoglobin (Bld) [Mass/Vol] 9.6 g/dL Low 12.0-15.0 [facility] Comment on above: Performed By: #### L [id number] #### [facility] ([facility]) [address] [place] [address] Immature granulocytes (Bld) [#/Vol] 0.02 10*3/uL Normal 0.00-0.20 [facility] Comment on above: Performed By: #### L [id number] #### [facility] ([facility]) [address] [place] [address] Immature granulocytes/100 WBC (Bld) 0.2 % Normal 0.0-1.0 [facility] Comment on above: Performed By: #### L [id number] #### [facility] ([facility]) [address] [place] [address] Lymphocytes (Bld) [#/Vol] 1.69 10*3/uL Normal 1.20-4.00 [facility] Comment on above: Performed By: #### L [id number] #### [facility] ([facility]) [address] [facility] [place] [address] Lymphocytes/100 WBC (Bld) 18.4 % Low 20.0-45.0 [facility] Comment on above: Performed By: #### L [id number] #### [facility] ([facility]) [address] [address] MCH (RBC) [Entitic mass] 31.4 pg Normal 27.0-33.0 [facility] Comment on above: Performed By: #### L [id number] #### [facility] ([facility]) [address] [place] [address] MCV (RBC) [Entitic vol] 97.1 fL Normal 82.0-98.0 [facility] Comment on above: Performed By: #### L [id number] #### [facility] ([facility]) [address] [facility] [place] [address] Monocytes (Bld) [#/Vol] 0.73 10*3/uL Normal 0.10-1.00 [facility] Comment on above: Performed By: #### L [id number] #### [facility] ([facility]) [address] [facility] [place] [address] Monocytes/100 WBC (Bld) 7.9 % Normal 5.0-12.0 [facility] Comment on above: Performed By: #### L [id number] #### [facility] ([facility]) [address] [facility] [place] [address] Neutrophils (Bld) [#/Vol] 6.66 10*3/uL Normal 1.60-7.60 [facility] Comment on above: Performed By: #### L [id number] #### [facility] ([facility]) [address] [place] [address] Neutrophils/100 WBC (Bld) 72.4 % High 40.0-72.0 [facility] Comment on above: Performed By: #### L [id number] #### [facility] ([facility]) [address] [place] [address] NRBC (PER 100 WBCS) BY AUTOMATED COUNT 0.0 % Normal 0 [facility] Comment on above: Performed By: #### L [id number] #### [facility] ([facility]) [address] [place] [address] PLATELETS (10*3/UL) IN BLOOD AUTOMATED COUNT 284 10*3/uL Normal 150-400 [facility] Comment on above: Performed By: #### L [id number] #### [facility] ([facility]) [address] [place] [address] RBC (Bld) [#/Vol] 3.06 10*6/uL Low 3.80-5.00 [facility] Comment on above: Performed By: #### L [id number] #### [facility] ([facility]) [address] [place] [address] WBC (Bld) [#/Vol] 9.20 10*3/uL Normal 4.00-10.60 [facility] Comment on above: Performed By: #### L [id number] #### [facility] ([facility]) [address] [place] [address] CONSULTon 05-02-2025 CONSULT --- Attestation signed by [...] ROS negati (more content not included)... Normal [facility] MAGNESIUMon 05-02-2025 Magnesium [Mass/Vol] 2.4 mg/dL Normal 1.9-2.7 [facility] Comment on above: Performed By: #### L [id number] ####[facility] ([facility])[address] [place] [address] APTTon 05-01-2025 ACTIVATED PARTIAL THROMBOPLASTIN TIME IN PPP BY COAGULATION ASSAY 47.5 Seconds High 25.0-35.0 [facility] Comment on above: Result Comment: Clin ical significance of the APTT is questionable in the presence of heparin. Performed By: #### L [id number] #### [facility] ([facility]) [address] [place] [address] BASIC METABOLIC PANELon 04-13 Anion gap [Moles/Vol] 10 mmol/L Normal 7-20 [facility] Comment on above: Performed By: #### L [id number] #### [facility] ([facility]) [address] [place] [address] Calcium [Mass/Vol] 8.3 mg/dL Low 8.6-10.3 [facility] Comment on above: Performed By: #### L [id number] #### [facility] ([facility]) [address] [place] [address] Chloride [Moles/Vol] 97 mmol/L Low 98-107 [facility] Comment on above: Performed By: #### L [id number] #### [facility] ([facility]) [address] [place] [address] CO2 [Moles/Vol] 31 mmol/L Normal 21-31 [facility] Comment on above: Performed By: #### L [id number] #### [facility] ([facility]) [address] [place] [address] Creatinine [Mass/Vol] 0.53 mg/dL Low 0.60-1.20 [facility] Comment on above: Performed By: #### L [id number] #### [facility] ([facility]) [address] [place] [address] GLOMERULAR FILTRATION RATE ML/MIN/1.73 SQ M.PREDICTED 111.9 mL/min/1.73m*2 Normal >60.0 [facility] Comment on above: Result Comment: [facility]???s estimated glomerular filtration rate (eGFR) will [...] group of individuals. Performed By: #### L [id number] #### [facility] ([facility]) [address] [place] [address] Glucose [Mass/Vol] 87 mg/dL Normal 70-100 [facility] Comment on above: Performed By: #### L [id number] #### [facility] ([facility]) [address] [place] [address] Potassium [Moles/Vol] 3.1 mmol/L Low 3.5-5.1 [facility] Comment on above: Performed By: #### L [id number] #### [facility] ([facility]) [address] [place] [address] Sodium [Moles/Vol] 135 mmol/L Low 136-145 [facility] Comment on above: Performed By: #### L [id number] #### [facility] ([facility]) [address] [place] [address] Urea nitrogen [Mass/Vol] 10 mg/dL Normal 7-25 [facility] Comment on above: Performed By: #### L [id number] #### [facility] ([facility]) [address] [place] [address] UREA NITROGEN/CREATININE (MASS RATIO) IN SER/PLAS 18.9 Normal [facility] Comment on above: Performed By: #### L [id number] #### [facility] ([facility]) [address] [place] [address] CBC WITH AUTO DIFFERENTIALon 05-01-2025 Basophils (Bld) [#/Vol] 0.03 10*3/uL Normal 0.00-0.20 [facility] Comment on above: Performed By: #### L [id number] ####[facility] ([facility])[address] [place] [address] Basophils/100 WBC (Bld) 0.2 % Normal 0.0-1.0 [facility] Comment on above: Performed By: #### L [id number] ####[facility] ([facility])[address] [place] [address] Eosinophils (Bld) [#/Vol] 0.03 10*3/uL Normal 0.00-0.50 [facility] Comment on above: Performed By: #### L [id number] ####[facility] [place] [address] Eosinophils/100 WBC (Bld) 0.2 % Normal 0.0-6.0 [facility] Comment on above: Performed By: #### L [id number] ####[facility] ([facility])[address] [place] [address] Erythrocyte distribution width (RBC) [Ratio] 13.1 % Normal 11.5-15.0 [facility] Comment on above: Performed By: #### L [id number] ####[facility] ([facility])[address] [place] [address] ERYTHROCYTE MEAN CORPUSCULAR HEMOGLOBIN CONCENTRATION (G/DL) BY AUTOMATED 33.1 g/dL Normal 32.0-35.0 [facility] Comment on above: Performed By: #### L [id number] ####[facility] ([facility])[address] [place] [address] Hematocrit (Bld) [Volume fraction] 30.8 % Low 36.0-45.0 [facility] Comment on above: Performed By: #### L [id number] ####[facility] ([facility])[address] [place] [address] Hemoglobin (Bld) [Mass/Vol] 10.2 g/dL Low 12.0-15.0 [facility] Comment on above: Performed By: #### L [id number] ####[facility] [place] [address] Immature granulocytes (Bld) [#/Vol] 0.03 10*3/uL Normal 0.00-0.20 [facility] Comment on above: Performed By: #### L [id number] ####[facility] ([facility])[address] [place] [address] Immature granulocytes/100 WBC (Bld) 0.2 % Normal 0.0-1.0 [facility] Comment on above: Performed By: #### L [id number] ####[facility] ([facility])[address] [place] [address] Lymphocytes (Bld) [#/Vol] 1.64 10*3/uL Normal 1.20-4.00 [facility] Comment on above: Performed By: #### L [id number] ####[facility] ([facility])[address] [place] [address] Lymphocytes/100 WBC (Bld) 13.5 % Low 20.0-45.0 [facility] Comment on above: Performed By: #### L [id number] ####[facility] ([facility])[address] [place] [address] MCH (RBC) [Entitic mass] 31.3 pg Normal 27.0-33.0 [facility] Comment on above: Performed By: #### L [id number] ####[facility] ([facility])[address] [place] [address] MCV (RBC) [Entitic vol] 94.5 fL Normal 82.0-98.0 [facility] Comment on above: Performed By: #### L [id number] ####[facility] ([facility])[address] [place] [address] Monocytes (Bld) [#/Vol] 0.75 10*3/uL Normal 0.10-1.00 [facility] Comment on above: Performed By: #### L [id number] ####[facility] ([facility])[address] [place] [address] Monocytes/100 WBC (Bld) 6.2 % Normal 5.0-12.0 [facility] Comment on above: Performed By: #### L [id number] ####[facility] ([facility])[address] [place] [address] Neutrophils (Bld) [#/Vol] 9.68 10*3/uL High 1.60-7.60 [facility] Comment on above: Performed By: #### L [id number] ####[facility] ([facility])[address] [place] [address] Neutrophils/100 WBC (Bld) 79.7 % High 40.0-72.0 [facility] Comment on above: Performed By: #### L [id number] ####[facility] [place] [address] NRBC (PER 100 WBCS) BY AUTOMATED COUNT 0.0 % Normal 0 [facility] Comment on above: Performed By: #### L [id number] ####[facility] ([facility])[address] [place] [address] PLATELETS (10*3/UL) IN BLOOD AUTOMATED COUNT 207 10*3/uL Normal 150-400 [facility] Comment on above: Performed By: #### L [id number] ####[facility] ([facility])[address] [place] [address] RBC (Bld) [#/Vol] 3.26 10*6/uL Low 3.80-5.00 [facility] Comment on above: Performed By: #### L [id number] ####[facility] ([facility])[address] [place] [address] WBC (Bld) [#/Vol] 12.16 10*3/uL High 4.00-10.60 [facility] Comment on above: Performed By: #### L [id number] ####[facility] ([facility])[address] [place] [address] CT ABDOMEN PELVIS W IV CONTR Marilyn [...] in this report. Electronically signed: WOO HOWARD. [facility] EDPROVon 05-01-2025 EDPROV History of Present Illness [...] blood count elevated. History provided by: Patient [place] Coma Scale Score: 15 History Medical History[1] [...] Glucose, Urine Normal Bilirubin, Urine Negative Specific [place], Urine 1.006 (*) Ketones, Urine Negative Blood, [...] 6.2 Eosin (more content not included)... Normal [facility] HEPATIC FUNCTION PANELon ALANINE AMINOTRANSFERASE (SGPT) (U/L) IN SER/PLAS <3 Low 7-52 [facility] Comment on above: Performed By: #### L [id number] #### [facility] [address] [place] [address] Albumin [Mass/Vol] 3.1 g/dL Low 3.5-5.7 [facility] Comment on above: Performed By: #### L [id number] #### [facility] ([facility] [address] [place] [address] ALP [Catalytic activity/Vol] 95 U/L Normal 34-104 [facility] Comment on above: Performed By: #### L [id number] #### [facility] ([facility]) [address] [place] [address] AST [Catalytic activity/Vol] 11 U/L Low 13-39 [facility] Comment on above: Performed By: #### L [id number] #### [facility] ([facility] [address] [place] [address] Bilirubin [Mass/Vol] 0.6 mg/dL Normal 0.3-1.0 [facility] Comment on above: Performed By: #### L [id number] #### [facility] ([facility]) [address] [place] [address] Magnesium [Mass/Vol] 0.2 mg/dL Normal 0-0.2 [facility] Comment on above: Performed By: #### L [id number] #### [facility] ([facility]) [address] [place] [address] Protein [Mass/Vol] 5.9 g/dL Low 6.0-8.3 [facility] Comment on above: Performed By: #### L [id number] #### [facility] ([facility]) [address] [place] [address] LACTIC ACID WITH 4 HOUR REFL EXon 05-01-2025 LACTATE (MMOL/L) IN SER/PLAS 1.2 mmol/L Normal 0.5-2.2 [facility] Comment on above: Performed By: #### L [id number] ####[facility] ([facility])[address] [place] [address] LIPASEon 05-01-2025 LIPASE (U/L) IN SER/PLAS 159 U/L High 11-82 [facility] Comment on above: Performed By: #### L [id number] ####[facility] ([facility])[address] [place] [address] MAGNESIUMon 05-01-2025 Magnesium [Mass/Vol] 1.7 mg/dL Low 1.9-2.7 [facility] Comment on above: Performed By: #### L [id number] #### [facility] ([facility]) [address] [place] [address] PROTIME-INRon 05-01-2025 INR IN PPP BY COAGULATION ASSAY 1.08 Normal 0.90-1.10 [facility] Comment on above: Result Comment: ACCC [...] RANGE. CHEST 1995;108:[id number]. Performed By: #### L [id number] #### [facility] ([facility]) [address] [place] [address] PROTHROMBIN TIME (PT) IN PPP BY COAGULATION ASSAY 14.0 Seconds Normal 12.3-14.8 [facility] Comment on above: Performed By: #### L [id number] #### [facility] ([facility]) [address] [place] [address] URINALYSIS WITH REFLEX CULTU REon 05-01-2025 BILIRUBIN, TOTAL PRESENCE IN URINE Negative Normal Negative [facility] Comment on above: Order Comment: Micro scopics not performed on urines with negative chemical reactions unless requested on original order. Performed By: #### L [id number] #### [facility] ([facility]) [address] [place] [address] Clarity (U) Clear Normal Clear [facility] Comment on above: Order Comment: Micro scopics not performed on urines with negative chemical reactions unless requested on original order. Performed By: #### L [id number] #### [facility] ([facility]) [address] [place] [address] Color (U) Light-Yellow Normal Colorless, Yellow, Light-Yellow [facility] Comment on above: Order Comment: Micro scopics not performed on urines with negative chemical reactions unless requested on original order. Performed By: #### L [id number] #### [facility] ([facility]) [address] [place] [address] GLUCOSE (MG/DL) IN URINE Normal Normal Normal [facility] Comment on above: Order Comment: Micro scopics not performed on urines with negative chemical reactions unless requested on original order. Performed By: #### L [id number] #### [facility] ([facility]) [address] [place] [address] HEMOGLOBIN PRESENCE IN URINE Negative Normal Negative [facility] Comment on above: Order Comment: Micro scopics not performed on urines with negative chemical reactions unless requested on original order. Performed By: #### L [id number] #### [facility] ([facility]) [address] [place] [address] Ketones Ql (U) Negative Normal Negative [facility] Comment on above: Order Comment: Micro scopics not performed on urines with negative chemical reactions unless requested on original order. Performed By: #### L [id number] #### [facility] ([facility]) [address] [place] [address] LEUKOCYTE ESTERASE PRESENCE IN URINE BY TEST STRIP Negative Normal Negative [facility] Comment on above: Order Comment: Micro scopics not performed on urines with negative chemical reactions unless requested on original order. Performed By: #### L [id number] #### [facility] ([facility]) [address] [place] [address] NITRITE PRESENCE IN URINE Negative Normal Negative [facility] Comment on above: Order Comment: Micro scopics not performed on urines with negative chemical reactions unless requested on original order. Performed By: #### L [id number] #### [facility] ([facility]) [address] [place] [address] pH (U) 7.0 [pH] Normal 5.0-8.0 [facility] Comment on above: Order Comment: Micro scopics not performed on urines with negative chemical reactions unless requested on original order. Performed By: #### L [id number] #### [facility] ([facility]) [address] [place] [address] Protein (U) [Mass/Vol] Negative Normal Negative [facility] Comment on above: Order Comment: Micro scopics not performed on urines with negative chemical reactions unless requested on original order. Performed By: #### L [id number] #### [facility] ([facility]) [address] [place] [address] Specific gravity (U) [Rel density] 1.006 Low 1.010-1.030 [facility] Comment on above: Order Comment: Micro scopics not performed on urines with negative chemical reactions unless requested on original order. Performed By: #### L [id number] #### [facility] ([facility]) [address] [place] [address] UROBILINOGEN (MG/DL) IN URINE 2.0 mg/dL Abnormal Normal [facility] Comment on above: Order Comment: Micro scopics not performed on urines with negative chemical reactions unless requested on original order. Performed By: #### L [id number] #### [facility] ([facility]) [address] [place] [address] Telephoneon 04-16-2025 Telephone [phone] Kati Thorne 1975 F Date Provider Department Center 04/16/2025 [facility] No family history on file Normal [facility] 36on 04-14-2025 36 Post Discharge Call Good afternoon, I am Autumn Santacruz, RN a lead nurse from [facility]. I am calling you to follow up [...] Patient Name Kati Thorne Date 04/14/25 Normal [facility] Telephoneon 04-14-2025 Telephone [phone] Kati Thorne 1975 F Date Provider Department Center 04/14/2025 [facility] No family history on file Reason for Visit and Comments: post discharge call back [Other] Normal [facility] 04-13-2025 30 The patient is Moderately [...] and maintained or improved Outcome: Progressing Normal [facility] 30 The patient is Moderately Stable [...] unsuccessful or patient reports new pain Normal [facility] 04-12-2025 30 The patient is Moderately Stable - Low risk of patient condition declining or worsening The patient's goals for the shift include Comfort and rest The clinical goals for the shift include VSS and safety Normal [facility] 30 The patient is Moderately Stable [...] and behaviors that affect risk of falls Eagle fall precautions as indicated by assessment Educate [...] and prevent overall improvement and discharge Normal [facility] BASIC METABOLIC PANELon 06-0 Anion gap [Moles/Vol] 10 mmol/L Normal 7-20 [facility] Comment on above: Performed By: #### L [id number] ####[facility] ([facility])[address] [place] [address] Calcium [Mass/Vol] 7.0 mg/dL Low 8.6-10.3 [facility] Comment on above: Performed By: #### L [id number] ####[facility] ([facility])[address] [place] [address] Chloride [Moles/Vol] 101 mmol/L Normal 98-107 [facility] Comment on above: Performed By: #### L [id number] ####[facility] ([facility])[address] [place] [address] CO2 [Moles/Vol] 24 mmol/L Normal 21-31 [facility] Comment on above: Performed By: #### L [id number] ####[facility] ([facility])[address] [place] [address] Creatinine [Mass/Vol] 0.25 mg/dL Low 0.60-1.20 [facility] Comment on above: Performed By: #### L [id number] ####[facility] ([facility])[address] [place] [address] GLOMERULAR FILTRATION RATE ML/MIN/1.73 SQ M.PREDICTED 134.1 mL/min/1.73m*2 Normal >60.0 [facility] Comment on above: Result Comment: [facility]???s estimated glomerular filtration rate (eGFR) will [...] of individuals. Performed By: #### L [id number] ####[facility] ([facility] [place] [address] Glucose [Mass/Vol] 94 mg/dL Normal 70-100 [facility] Comment on above: Performed By: #### L [id number] ####[facility] ([facility] [place] [address] Potassium [Moles/Vol] 3.0 mmol/L Low 3.5-5.1 [facility] Comment on above: Performed By: #### L [id number] ####[facility] ([facility])[address] [place] [address] Sodium [Moles/Vol] 132 mmol/L Low 136-145 [facility] Comment on above: Performed By: #### L [id number] ####[facility] ([facility])[address] [place] [address] Urea nitrogen [Mass/Vol] 7 mg/dL Normal 7-25 [facility] Comment on above: Performed By: #### L [id number] ####[facility] ([facility])[address] [place] [address] UREA NITROGEN/CREATININE (MASS RATIO) IN SER/PLAS 28.0 Normal [facility] Comment on above: Performed By: #### L [id number] ####[facility] ([facility])[address] [place] [address] CBCon 04-12-2025 Erythrocyte distribution width (RBC) [Ratio] 12.4 % Normal 11.5-15.0 [facility] Comment on above: Performed By: #### L [id number] ####[facility] ([facility])[address] [place] [address] ERYTHROCYTE MEAN CORPUSCULAR HEMOGLOBIN CONCENTRATION (G/DL) BY AUTOMATED 34.3 g/dL Normal 32.0-35.0 [facility] Comment on above: Performed By: #### L [id number] ####[facility] ([facility])[address] [place] [address] Hematocrit (Bld) [Volume fraction] 27.1 % Low 36.0-45.0 [facility] Comment on above: Performed By: #### L [id number] ####[facility] ([facility])[address] [place] [address] Hemoglobin (Bld) [Mass/Vol] 9.3 g/dL Low 12.0-15.0 [facility] Comment on above: Performed By: #### L [id number] ####[facility] ([facility])[address] [place] [address] IMMATURE PLATELET FRACTION % 7.0 % High 0.8-6.3 [facility] Comment on above: Performed By: #### L [id number] ####[facility] ([facility])[address] [place] [address] MCH (RBC) [Entitic mass] 32.2 pg Normal 27.0-33.0 [facility] Comment on above: Performed By: #### L [id number] ####[facility] ([facility])[address] [place] [address] MCV (RBC) [Entitic vol] 93.8 fL Normal 82.0-98.0 [facility] Comment on above: Performed By: #### L [id number] ####[facility] ([facility])[address] [place] [address] PLATELETS (10*3/UL) IN BLOOD AUTOMATED COUNT 75 10*3/uL Low 150-400 [facility] Comment on above: Performed By: #### L [id number] ####[facility] ([facility])[address] [place] [address] RBC (Bld) [#/Vol] 2.89 10*6/uL Low 3.80-5.00 [facility] Comment on above: Performed By: #### L [id number] ####[facility] ([facility])[address] [place] [address] WBC (Bld) [#/Vol] 5.24 10*3/uL Normal 4.00-10.60 [facility] Comment on above: Performed By: #### L [id number] ####[facility] ([facility])[address] [place] [address] MAGNESIUMon 04-12-2025 Magnesium [Mass/Vol] 1.5 mg/dL Low 1.9-2.7 [facility] Comment on above: Performed By: #### L [id number] ####[facility] ([facility])[address] [place] [address] 30on 04-11-2025 30 The patient is Moderately Stable - Low risk of patient condition declining or worsening The patient's goals for the shift include Comfort and rest The clinical goals for the shift include VSS and safety Normal [facility] 30 The patient is Moderately Stable [...] and behaviors that affect risk of falls Eagle fall precautions as indicated by assessment Educate [...] and prevent overall improvement and discharge Normal [facility] AMYLASEon 04-11-2024 Amylase [Catalytic activity/Vol] 100 U/L Normal 29-103 [facility] Comment on above: Performed By: #### L [id number] ####[facility] ([facility])[address] [place] [address] BASIC METABOLIC PANELon 05- Anion gap [Moles/Vol] 11 mmol/L Normal 7-20 [facility] Comment on above: Performed By: #### L [id number] ####[facility] ([facility])[address] [place] [address] Calcium [Mass/Vol] 8.0 mg/dL Low 8.6-10.3 [facility] Comment on above: Performed By: #### L [id number] ####[facility] ([facility])[address] [place] [address] Chloride [Moles/Vol] 103 mmol/L Normal 98-107 [facility] Comment on above: Performed By: #### L [id number] ####[facility] ([facility])[address] [place] [address] CO2 [Moles/Vol] 23 mmol/L Normal -31 [facility] Comment on above: Performed By: #### L [id number] ####[facility] ([facility])[address] [place] [address] Creatinine [Mass/Vol] 0.26 mg/dL Low 0.60-1.20 [facility] Comment on above: Performed By: #### L [id number] ####[facility] ([facility])[address] [place] [address] GLOMERULAR FILTRATION RATE ML/MIN/1.73 SQ M.PREDICTED 132.9 mL/min/1.73m*2 Normal >60.0 [facility] Comment on above: Result Comment: [facility]???s estimated glomerular filtration rate (eGFR) will [...] of individuals. Performed By: #### L [id number] ####[facility] ([facility])[address] , [place] [address] Glucose [Mass/Vol] 80 mg/dL Normal 70-100 [facility] Comment on above: Performed By: #### L [id number] ####[facility] ([facility])[address] [place] [place] [address] Potassium [Moles/Vol] 3.3 mmol/L Low 3.5-5.1 [facility] Comment on above: Performed By: #### L [id number] ####[facility] ([facility])[address] , [place] [address] Sodium [Moles/Vol] 134 mmol/L Low 136-145 [facility] Comment on above: Performed By: #### L [id number] ####[facility] ([facility])[address] , [place] [address] Urea nitrogen [Mass/Vol] 10 mg/dL Normal 7-25 [facility] Comment on above: Performed By: #### L [id number] ####[facility] ([facility])[address] , [place] [address] UREA NITROGEN/CREATININE (MASS RATIO) IN SER/PLAS 38.5 Normal [facility] Comment on above: Performed By: #### L [id number] ####[facility] ([facility])[address] , [place] [address] CBC WITH AUTO DIFFERENTIALon 04-11-2025 Erythrocyte distribution width (RBC) [Ratio] 12.6 % Normal 11.5-15.0 [facility] Comment on above: Performed By: #### L [id number] ####[facility] ([facility])[address] [place] [address] ERYTHROCYTE MEAN CORPUSCULAR HEMOGLOBIN CONCENTRATION (G/DL) BY AUTOMATED 34.3 g/dL Normal 32.0-35.0 [facility] Comment on above: Performed By: #### L [id number] ####[facility] ([facility])[address] [place] [address] Hematocrit (Bld) [Volume fraction] 29.7 % Low 36.0-45.0 [facility] Comment on above: Performed By: #### L [id number] ####[facility] ([facility])[address] [place] [address] Hemoglobin (Bld) [Mass/Vol] 10.2 g/dL Low 12.0-15.0 [facility] Comment on above: Performed By: #### L [id number] ####[facility] ([facility])[address] [place] [address] IMMATURE PLATELET FRACTION % 7.6 % High 0.8-6.3 [facility] Comment on above: Performed By: #### L [id number] ####[facility] ([facility])[address] [place] [address] MCH (RBC) [Entitic mass] 32.6 pg Normal 27.0-33.0 [facility] Comment on above: Performed By: #### L [id number] ####[facility] ([facility])[address] [place] [address] MCV (RBC) [Entitic vol] 94.9 fL Normal 82.0-98.0 [facility] Comment on above: Performed By: #### L [id number] ####[facility] ([facility])[address] [place] [address] NRBC (PER 100 WBCS) BY AUTOMATED COUNT 0.0 % Normal 0 [facility] Comment on above: Performed By: #### L [id number] ####[facility] ([facility])[address] [place] [address] PLATELETS (10*3/UL) IN BLOOD AUTOMATED COUNT 82 10*3/uL Low 150-400 [facility] Comment on above: Performed By: #### L [id number] ####[facility] ([facility])[address] [place] [address] RBC (Bld) [#/Vol] 3.13 10*6/uL Low 3.80-5.00 [facility] Comment on above: Performed By: #### L [id number] ####[facility] ([facility])[address] [place] [address] WBC (Bld) [#/Vol] 7.80 10*3/uL Normal 4.00-10.60 [facility] Comment on above: Performed By: #### L [id number] ####[facility] ([facility])[address] [place] [address] HEPATIC FUNCTION PANELon Albumin [Mass/Vol] 3.7 g/dL Normal 3.5-5.7 [facility] Comment on above: Performed By: #### L [id number] ####[facility] ([facility])[address] [place] [address] ALP [Catalytic activity/Vol] 87 U/L Normal 34-104 [facility] Comment on above: Performed By: #### L [id number] ####[facility] ([facility])[address] [place] [address] ALT [Catalytic activity/Vol] 20 U/L Normal 7-52 [facility] Comment on above: Performed By: #### L [id number] ####[facility] ([facility])[address] [place] [address] AST [Catalytic activity/Vol] 28 U/L Normal 13-39 [facility] Comment on above: Performed By: #### L [id number] ####[facility] ([facility])[address] [place] [address] Bilirubin [Mass/Vol] 2.2 mg/dL High 0.3-1.0 [facility] Comment on above: Performed By: #### L [id number] ####[facility] ([facility])[address] [place] [address] Magnesium [Mass/Vol] 0.6 mg/dL High 0-0.2 [facility] Comment on above: Performed By: #### L [id number] ####[facility] ([facility])[address] [place] [address] Protein [Mass/Vol] 5.4 g/dL Low 6.0-8.3 [facility] Comment on above: Performed By: #### L [id number] ####[facility] ([facility])[address] [place] [address] LIPASEon 04-11-2025 LIPASE (U/L) IN SER/PLAS 59 U/L Normal 11-82 [facility] Comment on above: Performed By: #### L [id number] ####[facility] ([facility])[address] [place] [address] MAGNESIUMon 04-11-2025 Magnesium [Mass/Vol] 1.9 mg/dL Normal 1.9-2.7 [facility] Comment on above: Performed By: #### L [id number] #### [facility] ([facility]) [address] [place] [address] MANUAL DIFFERENTIALon 2024 BASOPHILS (10*3/UL) IN BLOOD BY CALCULATION 0.01 10*3/uL Normal 0.00-0.20 [facility] Comment on above: Performed By: #### L [id number] #### [facility] ([facility]) [address] [place] [address] BASOPHILS/100 LEUKOCYTES IN BLOOD BY AUTOMATED COUNT 0.1 % Normal 0.0-1.0 [facility] Comment on above: Performed By: #### L [id number] #### [facility] ([facility]) [address] [place] [address] EOSINOPHILS (10*3/UL) IN BLOOD BY CALCULATION 0.00 10*3/uL Normal 0.00-0.50 [facility] Comment on above: Performed By: #### L [id number] #### [facility] ([facility]) [address] [place] [address] EOSINOPHILS/100 LEUKOCYTES IN BLOOD BY AUTOMATED COUNT 0.0 % Normal 0.0-6.0 [facility] Comment on above: Performed By: #### L [id number] #### [facility] ([facility]) [address] [place] [address] IMMATURE GRANULOCYTES (10*3/UL) IN BLOOD BY CALCULATION 0.02 10*3/uL Normal 0.00-0.20 [facility] Comment on above: Performed By: #### L [id number] #### [facility] ([facility]) [address] [place] [address] IMMATURE GRANULOCYTES/100 LEUKOCYTES IN BLOOD BY AUTOMATED COUNT 0.3 % Normal 0.0-1.0 [facility] Comment on above: Performed By: #### L [id number] #### [facility] ([facility]) [address] [place] [address] LYMPHOCYTES (10*3/UL) IN BLOOD BY CALCULATION 0.26 10*3/uL Low 1.20-4.00 [facility] Comment on above: Performed By: #### L [id number] #### [facility] ([facility]) [address] [place] [address] LYMPHOCYTES/100 LEUKOCYTES IN BLOOD BY AUTOMATED COUNT 3.3 % Low 20.0-45.0 [facility] Comment on above: Performed By: #### L [id number] #### [facility] ([facility]) [address] [place] [address] MONOCYTES (10*3/UL) IN BLOOD BY CALCUATION 0.39 10*3/uL Normal 0.10-1.00 [facility] Comment on above: Performed By: #### L [id number] #### [facility] ([facility]) [address] [place] [address] MONOCYTES/100 LEUKOCYTES IN BLOOD BY AUTOMATED COUNT 5.0 % Normal 5.0-12.0 [facility] Comment on above: Performed By: #### L [id number] #### [facility] [address] [place] [address] NEUTROPHILS (10*3/UL) IN BLOOD BY CALCULATION 7.1 10*3/uL Normal 1.6-7.6 [facility] Comment on above: Performed By: #### L [id number] #### [facility] ([employer]) [address] [place] [address] NEUTROPHILS/100 LEUKOCYTES IN BLOOD BY AUTOMATED COUNT 91.3 % High 40.0-72.0 [facility] Comment on above: Performed By: #### L [id number] #### [facility] ([facility]) [address] [place] [address] PROTIME-INRon 04-11-2025 INR IN PPP BY COAGULATION ASSAY 1.25 High 0.90-1.10 [facility] Comment on above: Result Comment: ACCC [...] CHEST 1995;[id number]. Performed By: #### L [id number] ####[facility] ([employer])[address] [place] [address] PROTHROMBIN TIME (PT) IN PPP BY COAGULATION ASSAY 15.6 Seconds High 12.3-14.8 [facility] Comment on above: Performed By: #### L [id number] ####[facility] ([facility])[address] [place] [address] 30on 04-10-2025 30 Daily Case Managemen t [...] Consultation Consultation and Management 04/10/25 0904 Normal [facility] 30 The patient is Moderately Stable [...] and maintained or improved Outcome: Progressing Normal [facility] 30 The patient is Moderately Stable [...] and behaviors that affect risk of falls Eagle fall precautions as indicated by assessment Educate [...] and prevent overall improvement and discharge Normal [facility] AMYLASEon 04-10-2025 Amylase [Catalytic activity/Vol] 451 U/L High 29-103 [facility] Comment on above: Performed By: #### L [id number] ####[facility] ([facility])[address] [place] [address] BASIC METABOLIC PANELon 03-14 Anion gap [Moles/Vol] 13 mmol/L Normal 7-20 [facility] Comment on above: Performed By: #### L [id number] ####[facility] ([facility])[address] [place] [address] Calcium [Mass/Vol] 7.9 mg/dL Low 8.6-10.3 [facility] Comment on above: Performed By: #### L [id number] ####[facility] ([facility])[address] [place] [address] Chloride [Moles/Vol] 104 mmol/L Normal 98-107 [facility] Comment on above: Performed By: #### L [id number] ####[facility] ([facility])[address] [place] [address] CO2 [Moles/Vol] 22 mmol/L Normal 21-31 [facility] Comment on above: Performed By: #### L [id number] ####[facility] ([facility])[address] [facility] [address] Creatinine [Mass/Vol] 0.29 mg/dL Low 0.60-1.20 [facility] Comment on above: Performed By: #### L [id number] ####[facility] ([facility])[address] [place] [address] GLOMERULAR FILTRATION RATE ML/MIN/1.73 SQ M.PREDICTED 129.4 mL/min/1.73m*2 Normal >60.0 [facility] Comment on above: Result Comment: [facility]???s estimated glomerular filtration rate (eGFR) will [...] of individuals. Performed By: #### L [id number] ####[facility] ([facility])[address] [place] [address] Glucose [Mass/Vol] 99 mg/dL Normal 70-100 [facility] Comment on above: Performed By: #### L [id number] ####[facility] [place] [address] Potassium [Moles/Vol] 3.0 mmol/L Low 3.5-5.1 [facility] Comment on above: Performed By: #### L [id number] ####[facility] ([facility])[address] [place] [address] Sodium [Moles/Vol] 136 mmol/L Normal 136-145 [facility] Comment on above: Performed By: #### L [id number] ####[facility] ([facility])[address] [place] [address] Urea nitrogen [Mass/Vol] 17 mg/dL Normal 7-25 [facility] Comment on above: Performed By: #### L [id number] ####[facility] ([facility])[address] [place] [address] UREA NITROGEN/CREATININE (MASS RATIO) IN SER/PLAS 58.6 Normal [facility] Comment on above: Performed By: #### L [id number] ####[facility] ([facility])[address] [place] [address] CBC WITH AUTO DIFFERENTIALon 04-10-2025 Basophils (Bld) [#/Vol] 0.01 10*3/uL Normal 0.00-0.20 [facility] Comment on above: Performed By: #### L [id number] #### [facility] ([facility]) [address] [place] [address] Basophils/100 WBC (Bld) 0.1 % Normal 0.0-1.0 [facility] Comment on above: Performed By: #### L [id number] #### [facility] [address] [place] [address] Eosinophils (Bld) [#/Vol] 0.00 10*3/uL Normal 0.00-0.50 [facility] Comment on above: Performed By: #### L [id number] #### [facility] ([facility] [address] [place] [address] Eosinophils/100 WBC (Bld) 0.0 % Normal 0.0-6.0 [facility] Comment on above: Performed By: #### L [id number] #### [facility] ([facility]) [address] [place] [address] Erythrocyte distribution width (RBC) [Ratio] 12.6 % Normal 11.5-15.0 [facility] Comment on above: Performed By: #### L [id number] #### [facility] ([facility]) [address] [place] [address] ERYTHROCYTE MEAN CORPUSCULAR HEMOGLOBIN CONCENTRATION (G/DL) BY AUTOMATED 34.1 g/dL Normal 32.0-35.0 [facility] Comment on above: Performed By: #### L [id number] #### [facility] ([facility]) [address] [place] [address] Hematocrit (Bld) [Volume fraction] 35.5 % Low 36.0-45.0 [facility] Comment on above: Performed By: #### L [id number] #### [facility] ([facility]) [address] [place] [address] Hemoglobin (Bld) [Mass/Vol] 12.1 g/dL Normal 12.0-15.0 [facility] Comment on above: Performed By: #### L [id number] #### [facility] ([facility]) [address] [place] [address] Immature granulocytes (Bld) [#/Vol] 0.05 10*3/uL Normal 0.00-0.20 [facility] Comment on above: Performed By: #### L [id number] #### [facility] ([facility]) [address] [place] [address] Immature granulocytes/100 WBC (Bld) 0.3 % Normal 0.0-1.0 [facility] Comment on above: Performed By: #### L [id number] #### [facility] ([facility] [address] [place] [address] Lymphocytes (Bld) [#/Vol] 0.69 10*3/uL Low 1.20-4.00 [facility] Comment on above: Performed By: #### L [id number] #### [facility] ([facility]) [address] [place] [address] Lymphocytes/100 WBC (Bld) 4.8 % Low 20.0-45.0 [facility] Comment on above: Performed By: #### L [id number] #### [facility] ([facility]) [address] [place] [address] MCH (RBC) [Entitic mass] 32.4 pg Normal 27.0-33.0 [facility] Comment on above: Performed By: #### L [id number] #### [facility] ([facility]) [address] [place] [address] MCV (RBC) [Entitic vol] 95.2 fL Normal 82.0-98.0 [facility] Comment on above: Performed By: #### L [id number] #### [facility] ([facility]) [address] [place] [address] Monocytes (Bld) [#/Vol] 0.56 10*3/uL Normal 0.10-1.00 [facility] Comment on above: Performed By: #### L [id number] #### [facility] ([facility]) [address] [place] [address] Monocytes/100 WBC (Bld) 3.9 % Low 5.0-12.0 [facility] Comment on above: Performed By: #### L [id number] #### [facility] ([facility]) [address] [place] [address] Neutrophils (Bld) [#/Vol] 13.02 10*3/uL High 1.60-7.60 [facility] Comment on above: Performed By: #### L [id number] #### [facility] ([facility]) [address] [place] [address] Neutrophils/100 WBC (Bld) 90.9 % High 40.0-72.0 [facility] Comment on above: Performed By: #### L [id number] #### [facility] ([facility]) [address] [place] [address] NRBC (PER 100 WBCS) BY AUTOMATED COUNT 0.0 % Normal 0 [facility] Comment on above: Performed By: #### L [id number] #### [facility] ([facility]) [address] [place] [address] PLATELETS (10*3/UL) IN BLOOD AUTOMATED COUNT 144 10*3/uL Low 150-400 [facility] Comment on above: Performed By: #### L [id number] #### [facility] ([facility]) [address] [place] [address] RBC (Bld) [#/Vol] 3.73 10*6/uL Low 3.80-5.00 [facility] Comment on above: Performed By: #### L [id number] #### [facility] ([facility]) [address] [place] [address] WBC (Bld) [#/Vol] 14.33 10*3/uL High 4.00-10.60 [facility] Comment on above: Performed By: #### L [id number] #### [facility] ([facility]) [address] [place] [address] HEMOGLOBIN A1Con 04-10-2025 Glucose [Mass/Vol] 97 mg/dL Normal [facility] Comment on above: Performed By: #### L [id number] ####[facility] ([facility])[address] [place] [address] HbA1c (Bld) [Mass fraction] 5.0 % Normal 4.0-6.0 [facility] Comment on above: Performed By: #### L [id number] ####[facility] ([facility])[address] [place] [address] HEPATIC FUNCTION PANELon Albumin [Mass/Vol] 3.4 g/dL Low 3.5-5.7 [facility] Comment on above: Performed By: #### L [id number] #### [facility] ([facility]) [address] [place] [address] ALP [Catalytic activity/Vol] 104 U/L Normal 34-104 [facility] Comment on above: Performed By: #### L [id number] #### [facility] ([facility]) [address] [place] [address] ALT [Catalytic activity/Vol] 32 U/L Normal 7-52 [facility] Comment on above: Performed By: #### L [id number] #### [facility] ([facility]) [address] [place] [address] AST [Catalytic activity/Vol] 51 U/L High 13-39 [facility] Comment on above: Performed By: #### L [id number] #### [facility] ([facility]) [address] [place] [address] Bilirubin [Mass/Vol] 1.8 mg/dL High 0.3-1.0 [facility] Comment on above: Performed By: #### L [id number] #### [facility] ([facility]) [address] [place] [address] Magnesium [Mass/Vol] 0.5 mg/dL High 0-0.2 [facility] Comment on above: Performed By: #### L [id number] #### [facility] ([facility]) [address] [place] [address] Protein [Mass/Vol] 5.3 g/dL Low 6.0-8.3 [facility] Comment on above: Performed By: #### L [id number] #### [facility] ([facility]) [address] [place] [address] LIPASEon 04-10-2025 LIPASE (U/L) IN SER/PLAS 460 U/L High 11-82 [facility] Comment on above: Performed By: #### L [id number] ####[facility] ([facility])[address] [place] [address] MAGNESIUMon 04-10-2025 Magnesium [Mass/Vol] 1.6 mg/dL Low 1.9-2.7 [facility] Comment on above: Performed By: #### L [id number] ####[facility] ([place] [facility])[address] [place] [address] NURSNOTEon 04-10-[address] Elizondo, one t abdoul albumin order can be completed after IV electrolyte replacement has finished. Normal [facility] PROTIME-INRon 04-10-2025 INR IN PPP BY COAGULATION ASSAY 1.31 High 0.90-1.10 [facility] Comment on above: Result Comment: ACCC [...] CHEST 1995;108:231S-246S. Performed By: #### L [id number] ####[facility] ([facility])[address] [place] [address] PROTHROMBIN TIME (PT) IN PPP BY COAGULATION ASSAY 16.2 Seconds High 12.3-14.8 [facility] Comment on above: Performed By: #### L [id number] ####[facility] ([facility])[address] [place] [address] TSH3 REFLEX TO FT4on 025 THYROTROPIN (MIU/L) IN SER/PLAS BY DETECTION LIMIT <= 0.05 MIU/L 2.83 mIU/L Normal 0.34-5.60 [facility] Comment on above: Performed By: #### L [id number] #### [facility] ([facility]) [address] [place] [address] 30on 04-09-2025 30 The patient is Moderately [...] and maintained or improved Outcome: Progressing Normal [facility] AMYLASEon 04-09-2025 Amylase [Catalytic activity/Vol] 1143 U/L High 29-103 [facility] Comment on above: Performed By: #### L [id number] ####[facility] ([facility])[address] [place] [address] BILIRUBIN, DIRECTon 04-09-20 25 Magnesium [Mass/Vol] 0.3 mg/dL High 0-0.2 [facility] Comment on above: Performed By: #### L [id number] #### [facility] ([facility]) [address] [place] [address] CBC WITH AUTO DIFFERENTIALon 04-09-2025 Basophils (Bld) [#/Vol] 0.04 10*3/uL Normal 0.00-0.20 [facility] Comment on above: Performed By: #### L [id number] ####[facility] ([facility])[address] [place] [address] Basophils/100 WBC (Bld) 0.2 % Normal 0.0-1.0 [facility] Comment on above: Performed By: #### L [id number] ####[facility] ([facility])[address] [place] [address] Eosinophils (Bld) [#/Vol] 0.01 10*3/uL Normal 0.00-0.50 [facility] Comment on above: Performed By: #### L [id number] ####[facility] ([facility])[address] [place] [address] Eosinophils/100 WBC (Bld) 0.0 % Normal 0.0-6.0 [facility] Comment on above: Performed By: #### L [id number] ####[facility] ([facility])[address] [place] [address] Erythrocyte distribution width (RBC) [Ratio] 12.2 % Normal 11.5-15.0 [facility] Comment on above: Performed By: #### L [id number] ####[facility] ([facility])[address] [place] [address] ERYTHROCYTE MEAN CORPUSCULAR HEMOGLOBIN CONCENTRATION (G/DL) BY AUTOMATED 34.2 g/dL Normal 32.0-35.0 [facility] Comment on above: Performed By: #### L [id number] ####[facility] ([facility])[address] [place] [address] Hematocrit (Bld) [Volume fraction] 43.0 % Normal 36.0-45.0 [facility] Comment on above: Performed By: #### L [id number] ####[facility] ([facility])[address] [place] [address] Hemoglobin (Bld) [Mass/Vol] 14.7 g/dL Normal 12.0-15.0 [facility] Comment on above: Performed By: #### L [id number] ####[facility] ([facility])[address] [place] [address] Immature granulocytes (Bld) [#/Vol] 0.11 10*3/uL Normal 0.00-0.20 [facility] Comment on above: Performed By: #### L [id number] ####[facility] ([facility])[address] [place] [address] Immature granulocytes/100 WBC (Bld) 0.5 % Normal 0.0-1.0 [facility] Comment on above: Performed By: #### L [id number] ####[facility] ([facility])[address] [place] [address] Lymphocytes (Bld) [#/Vol] 0.88 10*3/uL Low 1.20-4.00 [facility] Comment on above: Performed By: #### L [id number] ####[facility] ([facility])[address] [place] [address] Lymphocytes/100 WBC (Bld) 3.9 % Low 20.0-45.0 [facility] Comment on above: Performed By: #### L [id number] ####[facility] ([facility])[address] [place] [address] MCH (RBC) [Entitic mass] 32.1 pg Normal 27.0-33.0 [facility] Comment on above: Performed By: #### L [id number] ####[facility] ([facility])[address] [place] [address] MCV (RBC) [Entitic vol] 93.9 fL Normal 82.0-98.0 [facility] Comment on above: Performed By: #### L [id number] ####[facility] ([facility])[address] [place] [address] Monocytes (Bld) [#/Vol] 0.80 10*3/uL Normal 0.10-1.00 [facility] Comment on above: Performed By: #### L [id number] ####[facility] ([facility])[address] [facility] [address] Monocytes/100 WBC (Bld) 3.5 % Low 5.0-12.0 [facility] Comment on above: Performed By: #### L [id number] ####[facility] ([facility])[address] [place] [address] Neutrophils (Bld) [#/Vol] 20.89 10*3/uL High 1.60-7.60 [facility] Comment on above: Performed By: #### L [id number] ####[facility] ([facility])[address] [address] Neutrophils/100 WBC (Bld) 91.9 % High 40.0-72.0 [facility] Comment on above: Performed By: #### L [id number] ####[facility] ([facility])[address] [place] [address] NRBC (PER 100 WBCS) BY AUTOMATED COUNT 0.0 % Normal 0 [facility] Comment on above: Performed By: #### L [id number] ####[facility] ([facility])[address] [place] [address] PLATELETS (10*3/UL) IN BLOOD AUTOMATED COUNT 225 10*3/uL Normal 150-400 [facility] Comment on above: Performed By: #### L [id number] ####[facility] ([facility])[address] [address] RBC (Bld) [#/Vol] 4.58 10*6/uL Normal 3.80-5.00 [facility] Comment on above: Performed By: #### L [id number] ####[facility] ([facility])[address] [address] WBC (Bld) [#/Vol] 22.73 10*3/uL High 4.00-10.60 [facility] Comment on above: Performed By: #### L [id number] ####[facility] ([facility])[address] [place] [address] COMPREHENSIVE METABOLIC PANE Bernardo 04-09-2025 Albumin [Mass/Vol] 4.0 g/dL Normal 3.5-5.7 [facility] Comment on above: Performed By: #### L [id number] ####[facility] ([facility])[address] [place] [address] ALP [Catalytic activity/Vol] 71 U/L Normal 34-104 [facility] Comment on above: Performed By: #### L [id number] ####[facility] ([facility])[address] [place] [address] ALT [Catalytic activity/Vol] 8 U/L Normal 7-52 [facility] Comment on above: Performed By: #### L [id number] ####[facility] ([facility])[address] [place] [address] Anion gap [Moles/Vol] 12 mmol/L Normal 7-20 [facility] Comment on above: Performed By: #### L [id number] ####[facility] ([facility])[address] [place] [address] AST [Catalytic activity/Vol] 16 U/L Normal 13-39 [facility] Comment on above: Performed By: #### L [id number] ####[facility] ([facility])[address] [place] [address] Bilirubin [Mass/Vol] 1.6 mg/dL High 0.3-1.0 [facility] Comment on above: Performed By: #### L [id number] ####[facility] ([facility])[address] [place] [address] Calcium [Mass/Vol] 8.5 mg/dL Low 8.6-10.3 [facility] Comment on above: Performed By: #### L [id number] ####[facility] ([facility])[address] [place] [address] Chloride [Moles/Vol] 101 mmol/L Normal 98-107 [facility] Comment on above: Performed By: #### L [id number] ####[facility] ([facility])[address] [place] [address] CO2 [Moles/Vol] 27 mmol/L Normal 21-31 [facility] Comment on above: Performed By: #### L [id number] ####[facility] ([facility])[address] [place] [address] Creatinine [Mass/Vol] 0.36 mg/dL Low 0.60-1.20 [facility] Comment on above: Performed By: #### L [id number] ####[facility] ([facility])[address] [place] [address] GLOMERULAR FILTRATION RATE ML/MIN/1.73 SQ M.PREDICTED 122.8 mL/min/1.73m*2 Normal >60.0 [facility] Comment on above: Result Comment: [facility]???s estimated glomerular filtration rate (eGFR) will [...] of individuals. Performed By: #### L [id number] ####[facility] ([facility])[address] [place] [address] Glucose [Mass/Vol] 142 mg/dL High 70-100 [facility] Comment on above: Performed By: #### L [id number] ####[facility] ([facility])[address] [place] [address] Potassium [Moles/Vol] 2.9 mmol/L Invalid Interpretation Code 3.5-5.1 [facility] Comment on above: Performed By: #### L [id number] ####[facility] ([facility])[address] [place] [address] Protein [Mass/Vol] 6.1 g/dL Normal 6.0-8.3 [facility] Comment on above: Performed By: #### L [id number] ####[facility] ([facility])[address] [place] [address] Sodium [Moles/Vol] 137 mmol/L Normal 136-145 [facility] Comment on above: Performed By: #### L [id number] ####[facility] ([facility])[address] [facility] [place] [address] Urea nitrogen [Mass/Vol] 18 mg/dL Normal 7-25 [facility] Comment on above: Performed By: #### L [id number] ####[facility] ([place])[address] [facility] [place] [address] UREA NITROGEN/CREATININE (MASS RATIO) IN SER/PLAS 50.0 Normal [facility] Comment on above: Performed By: #### L [id number] ####[facility] ([place])[address] [facility] [place] [address] CONSULTon 04-09-2025 CONSULT --- Attestation signed by [...] Arthritis Asthma COPD (chronic obstructive pulmonary disease) ([facility]/H[facility]) Depression GERD (gastroesophageal reflux disease) Hypothyroidism Irritable [...] 1 ta (more content not included)... Normal [facility] HEPATIC FUNCTION PANELon Albumin [Mass/Vol] 3.9 g/dL Normal 3.5-5.7 [facility] Comment on above: Performed By: #### L [id number] ####[facility] ([facility])[address] [place] [address] ALP [Catalytic activity/Vol] 71 U/L Normal 34-104 [facility] Comment on above: Performed By: #### L [id number] ####[facility] ([facility])[address] [place] [address] ALT [Catalytic activity/Vol] 8 U/L Normal 7-52 [facility] Comment on above: Performed By: #### L [id number] ####[facility] ([facility])[address] [place] [address] AST [Catalytic activity/Vol] 15 U/L Normal 13-39 [facility] Comment on above: Performed By: #### L [id number] ####[facility] ([facility] [place] [address] Bilirubin [Mass/Vol] 1.7 mg/dL High 0.3-1.0 [facility] Comment on above: Performed By: #### L [id number] ####[facility] ([facility])[address] [place] [address] Magnesium [Mass/Vol] 0.3 mg/dL High 0-0.2 [facility] Comment on above: Performed By: #### L [id number] ####[facility] ([facility])[address] [place] [address] Protein [Mass/Vol] 6.3 g/dL Normal 6.0-8.3 [facility] Comment on above: Performed By: #### L [id number] ####[facility] ([facility])[address] [place] [address] HIGH SENSITIVITY TROPONIN Io n 04-09-2025 HS TROPONIN I (NG/L) 81 ng/L Critically high <15 [facility] Comment on above: Performed By: #### L [id number] #### [facility] ([facility]) [address] [place] [address] HS TROPONIN I (NG/L) 84 ng/L Critically high <15 [facility] Comment on above: Performed By: #### L [id number] ####[facility] ([facility])[address] [place] [address] HS TROPONIN I (NG/L) 102 ng/L Critically high <15 [facility] Comment on above: Performed By: #### L [id number] ####[facility] ([facility] [place] [address] LIPASEon 04-09-2025 LIPASE (U/L) IN SER/PLAS 2510 U/L High 11-82 [facility] Comment on above: Performed By: #### L [id number] ####[facility] ([place])[address] [place] [address] PROTIME-INRon 04-09-2025 INR IN PPP BY COAGULATION ASSAY 1.11 High 0.90-1.10 [facility] Comment on above: Result Comment: ACCC [...] RANGE. CHEST 1995;108:231S-246S. Performed By: #### L [id number] #### [facility] ([place]) [address] [place] [address] PROTHROMBIN TIME (PT) IN PPP BY COAGULATION ASSAY 14.3 Seconds Normal 12.3-14.8 [facility] Comment on above: Performed By: #### L [id number] #### [facility] ([place]) [address] [place] [address] HISTOLOGY - TISSUE EXAMon LAB AP CASE REPORT Normal [facility] j[facility]ath[facility] Comment on above: Result Comment: Surg ical Pathology Case: [id number] Authorizing Provider: Roscoe Saucedo MD Collected: 04/08/2025 0952 Ordering Location: [facility] Received: 04/08/2025 111[facility] Pathologist: aJs Barclay MD Specimen: Common Bile Duct, CBD bx r/o malignancy Performed By: #### L [id number] ####[facility] ([facility])[address] [place] [address] LAB AP CLINICAL INFORMATION Order Diagnoses [facility] Comment on above: Result Comment: K80. 50 - Recurrent biliary colic [ICD-10-CM] Performed By: #### L [id number] ####[facility] ([facility])[address] [place] [address] LAB AP GROSS DESCRIPTION [facility] Comment on above: Result Comment: A. C ommon Bile Duct. Received in formalin, labeled Kati Thorne CBD BX R/o malignancy, is a piece of miller translucent feathery mucosa with erythema measuring 0.3 x 0.1 by less than 0.1 cm. The specimen is submitted entirely in 1 cassette. Sven Richmond, Student Fellow Performed By: #### L [id number] ####[facility] ([facility])[address] [place] [address] LAB AP MICROSCOPIC DESCRIPTION Microscopic examination performed. [facility] Comment on above: Performed By: #### L [id number] ####[facility] ([facility])[address] [place] [address] LAB AP REPORT FINAL DIAGNOSIS NARRATIVE [facility] Comment on above: Result Comment: A. C ommon bile duct, biopsy: - Fibrous tissue with small strips of benign intestinal and biliary epithelium. - No malignancy identified. Performed By: #### L [id number] ####[facility] ([facility])[address] [place] [address] [facility] 04-08-2025 H&P reviewed. The patient was examined [...] for ERCP for persistent abdominal pain. Normal [facility] POCT GLUCOSE METER UNSOLICIT ED RESULTSon 04-08-2025 Glucose [Mass/Vol] 105 mg/dL Normal 70-105 [facility] Comment on above: Order Comment: Waive d Testing in the ED is performed under the ED CLIA certificate #[id number]. Result Comment: jhag eman Performed By: #### L [id number] #### [facility] ([facility]) [address] [place] [address] Prep for Procedureon 025 Prep for Procedure [id number] Kati Thorne 1975 Provider Department Center 04/08/2025 [facility]COE [facility]IGN No family history on file [facility] 36on 04-02-[address] Saucedo - he attempted to contact patient but did not get an answer. Call placed to patient by this bond writer to explain recommendations. Dr. Saucedo recommends an ERCP with sphincterotomy for further evaluation given continue biliary symptoms. Patient voiced understanding and was transferred to scheduling [facility] Orders Onlyon 04-02-2025 Orders Only [id number] Kati Thorne 1975 Date Provider Department Center 04/02/2025 JUANA JONES [facility] GEORGEJovi No family history on file [facility] Telephoneon 03-30-2025 Telephone [id number] Kati Thorne 1975 F Date Provider Department Center 03/30/2025 [id number] [facility] No family history on file Reason for Visit and Comments: Abdominal Pain [006010] [facility] Telephoneon 03-18-2025 Telephone [id number] Kati Thorne 1975 F Date Provider Department Center 03/18/2025 [id number] FRANKS [facility] GISC GEORGEI No family history on file [facility] HISTOLOGY - TISSUE EXAMon LAB AP ADDENDUM 1 [facility] Comment on above: Result Comment: Immu nostain for Helicobacter pylori, performed on part A with appropriately reactive control, is negative. Addendum electronically signed by Alicja Gonzalez MD on 03/18/2025 at 3:47 PM Performed By: #### L [id number] #### [facility] ([facility]) [address] [place] [address] LAB AP ASR DISCLAIMER The interpretation of [...] Clinical Laboratory Improvement Amendments of 1998. [facility] Comment on above: Performed By: #### L [id number] #### [facility] ([facility]) [address] [place] [address] LAB AP CASE REPORT [facility] Comment on above: Result Comment: Surg ical Pathology Case: [id number] Authorizing Provider: Roscoe Saucedo MD Collected: 03/11/2025 0949 Ordering Location: [facility] Received: 03/11/2025 1215 [facility] Endoscopy Pathologist: Alicja Gonzalez MD Specimens: A) - Gastric, r/o h.pylori B) - Gastroesophageal Junction, r/o barretts C) - Small Intestine, Duodenum, r/o celiacs Performed By: #### L [id number] #### [facility] (BEAKER) [address] [place] [address] LAB AP CLINICAL INFORMATION Order Diagnoses [facility] Comment on above: Result Comment: K83. 8 - Dilated cbd, acquired [ICD-10-CM] Performed By: #### L [id number] #### [facility] [address] [place] [address] LAB AP GROSS DESCRIPTION A. Gastric. [facility] Comment on above: Result Comment: The specimen is received in formalin labeled Kati Sebastian and gastric, r/o H. pylori. It consists of 5 bits of joy-pink mucosal tissue ranging from 0.2 cm to 0.5 cm in greatest dimension. The specimen is submitted in toto in 1 cassette. Gisell Mendoza, Pathologists' Mortgage Loan Closer student Pilar Han, Pathologists' Mortgage Loan Closer B. Gastroesophageal Junction. The specimen is received in formalin labeled Kati Sebastian and GE junction, r/o barretts. It consists of 2 bits and strips of joy-white, focally erythematous mucosal tissue, 0.6 cm and 0.1 cm in greatest dimension. The specimen is submitted in toto in 1 cassette. Gisell Mendoza, Pathologists' Mortgage Loan Closer student Pilar Han, Pathologists' Mortgage Loan Closer C. Small Intestine, Duodenum. The specimen is received in formalin labeled Kati Sebastian and duodenum, r/o celiacs. It consists of 6 bits and strips of joy-pink villous mucosal tissue ranging from 0.1 cm to 0.6 cm in greatest dimension. The specimen is submitted in toto in 1 cassette. Gisell Mendoza, Pathologists' Mortgage Loan Closer student Pilar Han, Pathologists' Mortgage Loan Closer Performed By: #### L [id number] #### [facility] ([facility] [address] [place] [address] LAB AP MICROSCOPIC DESCRIPTION Microscopic examination performed. [facility] Comment on above: Performed By: #### L [id number] #### [facility] (BEAKER) [address] [place] [address] LAB AP REPORT FINAL DIAGNOSIS NARRATIVE [facility] Comment on above: Result Comment: Radha [...] celiac disease noted. Performed By: #### L [id number] #### [facility] (BEAKER) [address] [place] [address] HPon 03-11-2025 History Of Present Illness Kati [...] GI tract and the pancreaticobiliary system. Normal [facility] NURSNOTEon 03-11-2025 NURSNOTE Discharge reviewed w sheila pt. And yumiko Lindsey, both verbalized understanding of instructions with no questions prior to DC. Normal [facility] POCT GLUCOSE METER UNSOLICIT ED RESULTSon 03-11-2025 Glucose [Mass/Vol] 96 mg/dL Normal 70-105 [facility] Comment on above: Order Comment: Waive d Testing in the ED is performed under the ED CLIA certificate #[id number]. Result Comment: ltol les Performed By: #### L [id number] ####[facility] (BEAKER)[address] [facility] [place] [address] Prep for Procedureon 025 Prep for Procedure [id number] Kati Thorne 1975 F Date Provider Department Center 03/11/2025 [facility] No family history on file Normal [facility] Orders Onlyon 03-09-2025 Orders Only [id number] Kati Thorne 1975 F Date Provider Department [place] 03/09/2025 [id number], HISTORICAL [facility] No family history on file Normal [facility] Telephoneon 02-25-2025 Telephone [id number] Kati Thorne 1975 F Date [facility] Department [place] 02/25/2025 [facility] No family history on file Normal [facility] C ANAon 07-13-2024 C NOE --- Final No anaerobic growth after 72 hrs. [facility] Comment on above: Performed By: #### A NAC #### [place] [address] C NOE --- Final No anaerobic growth after 72 hrs. [facility] Comment on above: Performed By: #### S [facility] #### [facility] (DEFAULT) [address] [place] [address] [place] [address] C NOE --- Final No anaerobic growth after 72 hrs. [facility] Comment on above: Performed By: #### A NAC #### [facility] [address] [place] [address] C NOE --- Final No anaerobic growth after 72 hrs. [facility] Comment on above: Performed By: #### S BSC #### [facility] (DEFAULT) [address] [place] [address] [facility] [address] [place] [address] C Sterile BSon 07-12-2024 C Sterile BS [...] <=0.25 V Trimethoprim/Sulfa S <=20 V Normal [facility] Comment on above: Performed By: #### S [facility] #### [facility] (DEFAULT) [address] [place] [address] [facility] [address] [place] [address] C Sterile BS --- Final Light Growth [...] <=10 V Vancomycin S 1 V Normal [facility] Comment on above: Performed By: #### S [facility] #### [facility] (DEFAULT) [address] [place] [address] [facility] [address] [place] [address] C Sterile BS --- Final Moderate Growth [...] <=10 V Vancomycin S 1 V Normal [facility] Comment on above: Performed By: #### S BS #### [facility] (DEFAULT) [address] [place] [address] [facility] [address] [place] [address] C Sterile BS --- Final Moderate Growth [...] <=10 V Vancomycin S 1 V Normal [facility] Comment on above: Performed By: #### S BS #### [facility] (DEFAULT) [address] [place] [address] [facility] [address] [place] [address] .[facility] 07-11-2024 GFR/1.73 sq M.predicted MDRD (S/P/Bld) [Vol rate/Area] mL/min/{1.73_m2} Normal >=60 [facility] Comment on above: Result Comment: [facility] Laboratories have implemented the eGFR calculation approach [...] years Performed By: #### A NAC #### [facility] [address] [place] [address] CBC w/ Diffon 07-11-2024 Erythrocyte distribution width (RBC) [Ratio] 13.4 % Normal 11.6-14.8 [facility] Comment on above: Performed By: #### S BSC #### [facility] (DEFAULT) [address] [place] [address] [place] [address] Hematocrit (Bld) [Volume fraction] 37.5 % Normal 36.0-46.0 [facility] Comment on above: Performed By: #### S BSC #### [facility] (DEFAULT) [address] [place] [address] [facility] [address] [place] [id number] Hemoglobin (Bld) [Mass/Vol] 12.6 g/dL Normal 12.0-16.0 [facility] Comment on above: Performed By: #### S BSC #### [facility] (DEFAULT) [address] [place] [address] [facility] [address] [place] [address] MCH (RBC) [Entitic mass] 32.5 pg Normal 27.0-35.0 [facility] Comment on above: Performed By: #### S BSC #### [facility] (DEFAULT) [address] [place] [address] [facility] [address] [place] [address] MCHC 33.7 % Normal 31.0-37.0 [facility] Comment on above: Performed By: #### S BSC #### [facility] (DEFAULT) [address] [place] [address] [facility] [address] [place] [address] MCV (RBC) [Entitic vol] 96.6 fL Normal 80.0-100.0 [facility] Comment on above: Performed By: #### S BSC #### [facility] (DEFAULT) [address] [place] [address] [facility] [address] [place] [address] Platelet 172 x10*3/mcL Normal 150-450 [facility] Comment on above: Performed By: #### S BSC #### [facility] (DEFAULT) [address] [place] [address] [facility] [address] [place] [address] Platelet mean volume (Bld) [Entitic vol] 9.3 fL Normal 6.7-10.6 [facility] Comment on above: Performed By: #### S BSC #### [facility] (DEFAULT) [address] [place] [address] [facility] [address] [place] [address] RBC 3.88 x10*6/mcL Normal 3.80-5.20 [facility] Comment on above: Performed By: #### S BSC #### [facility] (DEFAULT) [address] [place] [address] [facility] [address] [place] [address] WBC 8.8 x10*3/mcL Normal 4.5-11.0 [facility] Comment on above: Performed By: #### S BSC #### [facility] (DEFAULT) [address] [place] [address] [facility] [address] [place] [address] CMPon 07-11-2024 Albumin [Mass/Vol] 3.5 g/dL Normal 3.2-4.9 [facility] Comment on above: Performed By: #### S BSC #### [facility] (DEFAULT) [address] [place] [address] [facility] [address] [place] [address] Albumin/Globulin [Mass ratio] 1.5 {ratio} Normal 1.1-2.2 [facility] Comment on above: Performed By: #### S BSC #### [facility] (DEFAULT) [address] [place] [address] [facility] [address] [place] [address] Alk Phos 66 IU/L Normal 32-91 [facility] Comment on above: Performed By: #### S BSC #### [facility] (DEFAULT) [address] [place] [address] [facility] [address] [place] [address] ALT [Catalytic activity/Vol] 11 U/L Low 14-54 [facility] Comment on above: Performed By: #### S BSC #### [facility] (DEFAULT) [address] [place] [address] [facility] [address] [place] [address] Anion gap [Moles/Vol] 7 mmol/L Normal 4-12 [facility] Comment on above: Performed By: #### S BSC #### [facility] (DEFAULT) [address] [place] [address] [facility] [address] [place] [address] AST [Catalytic activity/Vol] 16 U/L Normal 15-41 [facility] Comment on above: Performed By: #### S BSC #### [facility] (DEFAULT) [address] [place] [address] [facility] [address] [place] [address] Bili Total 1.3 mg/dL High 0.3-1.2 [facility] Comment on above: Performed By: #### S BSC #### [facility] (DEFAULT) [address] [place] [address] [facility] [address] [place] [address] Calcium [Mass/Vol] 8.4 mg/dL Low 8.5-10.3 [facility] Comment on above: Performed By: #### S BSC #### [facility] (DEFAULT) [address] [place] [address] [facility] [address] [place] [address] Chloride [Moles/Vol] 103 mmol/L Normal 98-110 [facility] Comment on above: Performed By: #### S BSC #### [facility] (DEFAULT) [address] [place] [address] [facility] [address] [place] [address] CO2 [Moles/Vol] 28 mmol/L Normal 22-32 [facility] Comment on above: Performed By: #### S BSC #### [facility] (DEFAULT) [address] [place] [address] [facility] [address] [place] [address] Creatinine [Mass/Vol] 0.63 mg/dL Normal 0.44-1.03 [facility] Comment on above: Performed By: #### S BSC #### [facility] (DEFAULT) [address] [place] [address] [facility] [address] [place] [address] Glucose [Mass/Vol] 103 mg/dL High 70-99 [facility] Comment on above: Performed By: #### S BSC #### [facility] (DEFAULT) [address] [place] [address] [facility] [address] [place] [address] Potassium [Moles/Vol] 2.9 mmol/L Low 3.4-4.8 [facility] Comment on above: Performed By: #### S BSC #### [facility] (DEFAULT) [address] [place] [address] [facility] [address] [place] [address] Protein [Mass/Vol] 5.9 g/dL Low 6.5-8.1 [facility] Comment on above: Performed By: #### S BSC #### [facility] (DEFAULT) [address] [place] [address] [facility] [address] [place] [address] Sodium [Moles/Vol] 138 mmol/L Normal 133-142 [facility] Comment on above: Performed By: #### S BSC #### [facility] (DEFAULT) [address] [place] [address] [facility] [address] [place] [address] Urea nitrogen [Mass/Vol] 7 mg/dL Low 8-26 [facility] Comment on above: Performed By: #### S BSC #### [facility] (DEFAULT) [address] [place] [address] [facility] [address] [place] [address] Urea nitrogen/Creatinine [Mass ratio] 11.1 mg/mg Normal 10.0-20.0 [facility] Comment on above: Performed By: #### S BSC #### [facility] (DEFAULT) [address] [place] [address] [facility] [address] [place] [address] Dietary Consultationon 07-11 Dietary Consultation Consult for [...] 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 Reports UBW of 108# since losing weight about 3-4 years ago which algins with weight on admit. Reports she is discharging after potassium infusion. Will continue to follow along appropriately. Electronically signed by ___ Mehnaz Moran RD 07/11/24 15:56 EDT Normal [facility] Diff Autoon 07-11-2024 Baso Absolute 0.0 x10*3/mcL Normal 0.0-0.2 [facility] Comment on above: Performed By: #### A NAC #### [facility] [address] [place] [id number] Basophils/100 WBC (Bld) 0.5 % Normal 0.0-1.5 [facility] Comment on above: Performed By: #### A NAC #### [facility] [address] [place] [address] Eos Absolute 0.0 x10*3/mcL Normal 0.0-0.4 [facility] Comment on above: Performed By: #### A NAC #### [facility] [address] [place] [address] Eosinophils/100 WBC (Bld) 0.3 % Normal 0.0-5.4 [facility] Comment on above: Performed By: #### A NAC #### [facility] [address] [place] [address] Lymph Absolute 2.1 x10*3/mcL Normal 1.0-4.8 [facility] Comment on above: Performed By: #### A NAC #### [address] [address] Lymphocytes/100 WBC (Bld) 24.0 % Low 27.2-40.8 [facility] Comment on above: Performed By: #### A NAC #### [place] [address] Faulkner Absolute 0.5 x10*3/mcL Normal 0.1-1.1 [facility] Comment on above: Performed By: #### A NAC #### [place] [address] Monocytes/100 WBC (Bld) 6.1 % Normal 3.7-11.9 [facility] Comment on above: Performed By: #### A NAC #### [place] [address] Neutro Absolute 6.1 x10*3/mcL Normal 1.8-7.7 [facility] Comment on above: Performed By: #### A NAC #### [place] [address] Neutro Auto 69.1 % Normal 47.2-70.8 [facility] Comment on above: Performed By: #### A NAC #### [place] [id number] Inpatient Clinical Summaryon 07-11-2024 Inpatient Clinical Summary [address] [address] [place] [address] Clinical Summary Person Information Name: Kati Thorne Age: 48 Years : 1975 Sex: Female PCP: Unavailable, Physician Marital Status: Phone: PCP: Race: White Ethnicity: Not or Language: Italian Visit Id: Visit Reason: Speciality: Acuity: Enc Type: Observation Med Service: Surgery Arrival: 07/10/2024 11:21:35 Discharge: Dispo Type: Address: [address] [place] [phone] Diagnosis: Discharged To: Home Treatments: Devices/Equipment: Professional Skilled Services: Special Services and Community Resources: Mode of Discharge Transportation: Discharge Orders Discharge Special Instructions econometrician will contact you tomorrow regarding pain medication [...] range between ( 27.2 and 40.8 ) Faulkner Auto: 6.1 % -- Normal range between [...] range between ( 36.0 and 46.0 ) Fa[place]ner Absolute: 0.5 x10 MCH: 32.5 pg -- [...] Immunizations Doc (more content not included)... Normal [facility] Potassiumon 07-11-2024 Potassium [Moles/Vol] 4.0 mmol/L Normal 3.4-4.8 [facility] Comment on above: Performed By: #### A NAC #### [place] [address] Progress Note-Nurseon 2023 Progress Note-Nurse Discharge instructio ns reviewed with pt and pt verbalizes understanding. Pt taken per wheelchair to private vehicle accompanied by tech. Electronically signed by ___ Marysol Lopes 07/11/24 17:03 EDT Normal [facility] .eGFRon 07-10-2024 GFR/1.73 sq M.predicted MDRD (S/P/Bld) [Vol rate/Area] mL/min/{1.73_m2} Normal >=60 [facility] Comment on above: Result Comment: [facility] Laboratories have implemented the eGFR calculation approach [...] years Performed By: #### A NAC #### [place] [id number] CBC w/ Diffon 07-10-2024 Erythrocyte distribution width (RBC) [Ratio] 13.5 % Normal 11.6-14.8 [facility] Comment on above: Performed By: #### A NAC #### [place] [address] Hematocrit (Bld) [Volume fraction] 39.9 % Normal 36.0-46.0 [facility] Comment on above: Performed By: #### A NAC #### [place] [address] Hemoglobin (Bld) [Mass/Vol] 13.3 g/dL Normal 12.0-16.0 [facility] Comment on above: Performed By: #### A NAC #### [address] [address] MCH (RBC) [Entitic mass] 32.2 pg Normal 27.0-35.0 [facility] Comment on above: Performed By: #### A NAC #### [address] [address] MCHC 33.4 % Normal 31.0-37.0 [facility] Comment on above: Performed By: #### A NAC #### [address] [place] [address] MCV (RBC) [Entitic vol] 96.6 fL Normal 80.0-100.0 [facility] Comment on above: Performed By: #### A NAC #### [place] [address] Platelet 182 x10*3/mcL Normal 150-450 [facility] Comment on above: Performed By: #### A NAC #### [place] [address] Platelet mean volume (Bld) [Entitic vol] 8.9 fL Normal 6.7-10.6 [facility] Comment on above: Performed By: #### A NAC #### [place] [address] RBC 4.13 x10*6/mcL Normal 3.80-5.20 [facility] Comment on above: Performed By: #### A NAC #### [place] [address] WBC 10.2 x10*3/mcL Normal 4.5-11.0 [facility] Comment on above: Performed By: #### A NAC #### [place] [address] CMPon 07-10-2024 Albumin [Mass/Vol] 3.8 g/dL Normal 3.2-4.9 [facility] Comment on above: Performed By: #### A NAC #### [place] [address] Albumin/Globulin [Mass ratio] 1.4 {ratio} Normal 1.1-2.2 [facility] Comment on above: Performed By: #### A NAC #### [place] [address] Alk Phos 75 IU/L Normal 32-91 [facility] Comment on above: Performed By: #### A NAC #### [place] [address] ALT [Catalytic activity/Vol] 13 U/L Low 14-54 [facility] Comment on above: Performed By: #### A NAC #### [address] [place] [address] Anion gap [Moles/Vol] 10 mmol/L Normal 4-12 [facility] Comment on above: Performed By: #### A NAC #### [address] [place] [address] AST [Catalytic activity/Vol] 17 U/L Normal 15-41 [facility] Comment on above: Performed By: #### A NAC #### [address] [address] Bili Total 0.9 mg/dL Normal 0.3-1.2 [facility] Comment on above: Performed By: #### A NAC #### [address] [address] Calcium [Mass/Vol] 8.6 mg/dL Normal 8.5-10.3 [facility] Comment on above: Performed By: #### A NAC #### [address] [place] [address] Chloride [Moles/Vol] 103 mmol/L Normal 98-110 [facility] Comment on above: Performed By: #### A NAC #### [address] [address] CO2 [Moles/Vol] 27 mmol/L Normal 22-32 [facility] Comment on above: Performed By: #### A NAC #### [address] [place] [address] Creatinine [Mass/Vol] 0.54 mg/dL Normal 0.44-1.03 [facility] Comment on above: Performed By: #### A NAC #### [address] [place] [address] Glucose [Mass/Vol] 105 mg/dL High 70-99 [facility] Comment on above: Performed By: #### A NAC #### [address] [address] Potassium [Moles/Vol] 2.7 mmol/L Low 3.4-4.8 [facility] Comment on above: Performed By: #### A NAC #### [address] [address] Protein [Mass/Vol] 6.6 g/dL Normal 6.5-8.1 [facility] Comment on above: Performed By: #### A NAC #### [address] [address] Sodium [Moles/Vol] 140 mmol/L Normal 133-142 [facility] Comment on above: Performed By: #### A NAC #### [address] [address] Urea nitrogen [Mass/Vol] 9 mg/dL Normal 8-26 [facility] Comment on above: Performed By: #### A NAC #### [address] [address] Urea nitrogen/Creatinine [Mass ratio] 16.7 mg/mg Normal 10.0-20.0 [facility] Comment on above: Performed By: #### A NAC #### [address] [address] Diff Autoon 07-10-2024 Baso Absolute 0.1 x10*3/mcL Normal 0.0-0.2 [facility] Comment on above: Performed By: #### A NAC #### [address] [address] Basophils/100 WBC (Bld) 0.6 % Normal 0.0-1.5 [facility] Comment on above: Performed By: #### A NAC #### [address] [address] Eos Absolute 0.0 x10*3/mcL Normal 0.0-0.4 [facility] Comment on above: Performed By: #### A NAC #### [address] [address] Eosinophils/100 WBC (Bld) 0.3 % Normal 0.0-5.4 [facility] Comment on above: Performed By: #### A NAC #### [place] [address] [place] [address] Lymph Absolute 2.3 x10*3/mcL Normal 1.0-4.8 [facility] Comment on above: Performed By: #### A NAC #### [address] [address] Lymphocytes/100 WBC (Bld) 22.8 % Low 27.2-40.8 [facility] Comment on above: Performed By: #### A NAC #### [address] [address] Fa[place]ner Absolute 0.5 x10*3/mcL Normal 0.1-1.1 [facility] Comment on above: Performed By: #### A NAC #### [address] [address] Monocytes/100 WBC (Bld) 5.2 % Normal 3.7-11.9 [facility] Comment on above: Performed By: #### A NAC #### [address] [address] Neutro Absolute 7.2 x10*3/mcL Normal 1.8-7.7 [facility] Comment on above: Performed By: #### A NAC #### [address] [address] Neutro Auto 71.1 % High 47.2-70.8 [facility] Comment on above: Performed By: #### A NAC #### [address] [address] Magnesiumon 07-10-2024 Magnesium [Mass/Vol] 1.8 mg/dL Normal 1.7-2.4 [facility] Comment on above: Performed By: #### S BSC #### [facility] (DEFAULT) [address] [place] [address] [address] Operative Reporton 08-29-202 4 Operative Report Indication [...] Surgeon(s) Hayden 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..] ANGY SMALLS Date: 2023-02-23 13:14 Normal [facility] FREE T4on 02-20-2023 Free T4 [Mass/Vol] 0.65 ng/dL Critically low 0.76-1.46 Th e [facility] Comment on above: Performed By: #### L ACT #### [facility] [address] [place] [address] Dr. Jovanna Magana TSH W/ REFLEX TO FT4on 02-20 TSH 5.032 uIU/mL Critically high 0.358-3.740 [facility] Comment on above: Performed By: #### L ACT #### [facility] [address] [address] [address] Jovanna Magana RESPIRATORY PANEL PLUSon Adenovirus Not detected Normal NOT DETECTED The [facility] Comment on above: Performed By: #### R SPLUS ####[facility] [address] [address]Dr. Jovanna Magana B. Parapertusis Not detected Normal NOT DETECTED The [facility] Comment on above: Performed By: #### R SPLUS ####[facility] [address] [place], [place] [address]Dr. Jovanna Magana B. Pertussis Not detected Normal NOT DETECTED The [facility] Comment on above: Performed By: #### R SPLUS ####[facility] [address] [address]Dr. Jovanna Magana Chlamydia Pneumoniae Not detected Normal NOT DETECTED [facility] Comment on above: Performed By: #### R SPLUS ####[facility] [address] [place], [place] [address]Dr. Jovanna Magana Coronavirus 229E Not detected Normal NOT DETECTED [facility] Comment on above: Performed By: #### R SPLUS ####[facility] [address] [address]Dr. Jovanna Magana Coronavirus HKU1 Not detected Normal NOT DETECTED [facility] Comment on above: Performed By: #### R SPLUS ####[facility] [address] [place], [place] [address]Dr. Jovanna Magana Coronavirus NL63 Not detected Normal NOT DETECTED [facility] Comment on above: Performed By: #### R SPLUS ####[facility] [address] [place], [place] [address]Dr. Jovanna Magana Coronavirus OC43 Not detected Normal NOT DETECTED [facility] Comment on above: Performed By: #### R SPLUS ####[facility] [address] [place], [place] [address]Dr. Jovanna Magana Influenza A H1 Not detected Normal NOT DETECTED [facility] Comment on above: Performed By: #### R SPLUS ####[facility] [address] [place], [place] [address]Dr. Jovanna Magana Influenza A H1 2009 Not detected Normal NOT DETECTED [facility] Comment on above: Performed By: #### R SPLUS ####[facility] [address] [place], [place] [address]Dr. Jovanna Magana Influenza A H3 Not detected Normal NOT DETECTED [facility] Comment on above: Performed By: #### R SPLUS ####[facility] [address] [place], [place] [address]Dr. Jovanna Magana Influenza B Not detected Normal NOT DETECTED [facility] Comment on above: Performed By: #### R SPLUS ####[facility] [address] [place], [place] [address]Dr. Jovanna Magana Metapneumovirus Not detected Normal NOT DETECTED The [facility] Comment on above: Performed By: #### R SPLUS ####[facility] [address] [place], [place] [address]Dr. Jovanna Magana Mycoplas. Pneumoniae Not detected Normal NOT DETECTED [facility] Comment on above: Performed By: #### R SPLUS ####[facility] [address] [place], [place] [address]Dr. Jovanna Magana Parainfluenza 1 Not detected Normal NOT DETECTED The [facility] Comment on above: Performed By: #### R SPLUS ####[facility] [address] [place], [place] [address]Dr. Yireagan Magana Parainfluenza 2 Not detected Normal NOT DETECTED [facility] Comment on above: Performed By: #### R SPLUS ####[facility] [address] [place], [place] [address]Dr. Yireagan Magana Parainfluenza 3 Not detected Normal NOT DETECTED [facility] Comment on above: Performed By: #### R SPLUS ####[facility] [address] [place], [place] [address]Dr. Yireagan Magana Parainfluenza 4 Not detected Normal NOT DETECTED [facility] Comment on above: Performed By: #### R SPLUS ####[facility] [address] [address]Dr. Jovanna Magana Rhino/Enterovirus Not detected Normal NOT DETECTED [facility] Comment on above: Performed By: #### R SPLUS ####[facility] [address] [place], [place] [address]Dr. Rosaliareagan Nino RP2 Header 1 RESPIRATORY PANEL: VIRUSES Normal [facility] Comment on above: Performed By: #### R SPLUS ####[facility] [address] [place], [place] [address]Dr. Jovanna Magana RP2 Header 2 RESPIRATORY PANEL: BACTERIA Normal [facility] Comment on above: Performed By: #### R SPLUS ####[facility] [address] [place], [place] [address]Dr. Rosaliareagan Magana RSV Not detected Normal NOT DETECTED [facility] Comment on above: Performed By: #### R SPLUS ####[facility] [address] [place], [place] [address]Dr. Jovanna Magana SARS-CoV-2 (COVID-19) RNA DUC+probe Ql (Unsp spec) Not detected Normal NOT DETECTED [facility] Comment on above: Performed By: #### R SPLUS ####[facility] [address] [place], [place] [address]Dr. Jovanna Magana MG MAMM SCREEN 3D CHELLY CADon 01-12-2023 MG MAMM SCREEN 3D CHELLY CAD Patient: KATI THORNE Exam Date: 01/12/2023 : 1975 Gender:F Ordering : TATUM RahJhony CLINTONJAMILAH Admission #: [id number] Family : Order #: [id number] CLICK HERE TO VIEW EXAM RADIOLOGY REPORT [...] cervical cancer at age 40. LOCATION: [facility] BREAST COMPOSITION: Almost entirely fatty. FINDINGS: [...] Perez MD on 01/12/2023 at 12:42 Normal [facility] XR DEXA BONE DENSITYon 01-12 XR [...] by: RJ PEREZ Date: 2023-01-12 17:10 Normal [facility] GABAPENTIN URINEon 3 Gabapentin, Urine Negative Normal [facility] Comment on above: Performed By: #### G ABAP ####[facility] [address] [address]Dr. Jovanna Magana DRUG SCREEN RAPID (URINE)on 11-14-2022 AMP Negative Normal NEGATIVE [facility] Comment on above: Performed By: #### V ITB12 #### [facility] [address] [address] [address] Jovanna Magana BAR Negative Normal NEGATIVE [facility] Comment on above: Performed By: #### V ITB12 #### [facility] [address] [address] [address] Jovanna Magana BUP Negative Normal NEGATIVE [facility] Comment on above: Performed By: #### V ITB12 #### [facility] [address] [place] [address] Dr. Jovanna Magana BZO Negative Normal NEGATIVE [facility] Comment on above: Performed By: #### V ITB12 #### [facility] [address] [place] [address] Dr. Jovanna Magana CARA Negative Normal NEGATIVE [facility] Comment on above: Performed By: #### V ITB12 #### [facility] [address] [place] [address] Dr. Jovanna Magana CUT-OFFS SEE BELOW Normal [facility] Comment on above: Result Comment: AMP [...] ng/mL Performed By: #### V ITB12 #### [facility] [address] [place] [address] Dr. Jovanna Magana DRUG CUT HEADER DRUG CLASS TEST SYST EM CUT-OFF CONCENTRATIONS ARE FOLLOWS: Normal [facility] Comment on above: Performed By: #### V ITB12 #### [facility] [address] [place] [address] Dr. Jovanna Magana mAMP Negative Normal NEGATIVE [facility] Comment on above: Performed By: #### V ITB12 #### [facility] [address] [place] [address] Dr. Jovanna Magana MTD Negative Normal NEGATIVE [facility] Comment on above: Performed By: #### V ITB12 #### [facility] [address] [place] [address] Dr. Jovanna Magana OPI Positive Abnormal NEGATIVE [facility] Comment on above: Performed By: #### V ITB12 #### [facility] [address] [place] [address] Dr. Jovanna Magana OXY Negative Normal NEGATIVE [facility] Comment on above: Performed By: #### V ITB12 #### [facility] [address] [place] [address] Dr. Jovanna Magana PCP Negative Normal NEGATIVE [facility] Comment on above: Performed By: #### V ITB12 #### [facility] [address] [place] [address] Dr. Jovanna Magana PPX Negative Normal NEGATIVE [facility] Comment on above: Performed By: #### V ITB12 #### [facility] [address] [place] [address] Dr. Jovanna Magana TCA Negative Normal NEGATIVE [facility] Comment on above: Performed By: #### V ITB12 #### [facility] [address] [place] [address] Dr. Jovanna Magana THC Positive Abnormal NEGATIVE [facility] Comment on above: Performed By: #### V ITB12 #### [facility] [address] [place] [address] Dr. Jovanna Magana CBC AUTO DIFFon 10-08-2022 BASO # 0.0 103/ul Normal 0.0-0.1 [facility] Comment on above: Performed By: #### C BC #### [facility] [address] [place] [address] Dr. Jovanna Magana Basophils/100 WBC (Bld) 0.4 % Normal 0.2-2.0 [facility] Comment on above: Performed By: #### C BC #### [facility] [address] [place] [address] Dr. Jovanna Magana EO # 0.1 103/ul Normal 0.0-0.7 [facility] Comment on above: Performed By: #### C BC #### [facility] [address] [place] [address] Dr. Jovanna Magana Eosinophils/100 WBC (Bld) 1.3 % Normal 0.9-7.0 [facility] Comment on above: Performed By: #### C BC #### [facility] [address] [place] [address] Dr. Jovanna Magana Erythrocyte distribution width (RBC) [Ratio] 12.0 % Normal 11.0-15.0 [facility] Comment on above: Performed By: #### C BC #### [facility] [address] [place] [address] Dr. Jovanna Magana Hematocrit (Bld) [Volume fraction] 37.8 % Normal 36.0-48.0 [facility] Comment on above: Performed By: #### C BC #### [facility] [address] [place] [address] Dr. Jovanna Magana Hemoglobin (Bld) [Mass/Vol] 12.8 g/dL Normal 12.0-16.0 [facility] Comment on above: Performed By: #### C BC #### [facility] [address] [place] [address] Dr. Jovanna Magana IG # 0.02 10e3/ul Normal 0.00-0.03 [facility] Comment on above: Performed By: #### C BC #### [facility] [address] [place] [address] Dr. Jovanna Magana IG % 0.2 % Normal 0.0-0.5 [facility] Comment on above: Performed By: #### C BC #### [facility] [address] [place] [address] Dr. Jovanna Magana LYMPH # 3.5 103/ul Normal 1.2-3.8 [facility] Comment on above: Performed By: #### C BC #### [facility] [address] [place] [address] Dr. Jovanna Magana Lymphocytes/100 WBC (Bld) 37.9 % Normal 20.5-60.0 [facility] Comment on above: Performed By: #### C BC #### [facility] [address] [place] [address] Dr. Jovanna Magana MANUAL DIFF REQ NO Normal [facility] Comment on above: Performed By: #### C BC #### [facility] [address] [place] [address] Dr. Jovanna Magana MCH (RBC) [Entitic mass] 31.7 pg Normal 26.7-34.0 [facility] Comment on above: Performed By: #### C BC #### [facility] [address] [place] [address] Dr. Jovanna Magana MCHC (RBC) [Mass/Vol] 33.9 g/dL Normal 29.9-35.2 [facility] Comment on above: Performed By: #### C BC #### [facility] [address] [place] [address] Dr. Jovanna Magana MCV (RBC) [Entitic vol] 93.6 fL Normal 81.0-99.0 [facility] Comment on above: Performed By: #### C BC #### [facility] [address] [place] [address] Dr. Jovanna Magana MONO # 0.5 103/ul Normal 0.3-0.8 [facility] Comment on above: Performed By: #### C BC #### [facility] [address] [place] [address] Dr. Jovanna Magana Monocytes/100 WBC (Bld) 4.8 % Normal 1.7-12.0 [facility] Comment on above: Performed By: #### C BC #### [facility] [address] [place] [address] Dr. Jovanna Magana NEUT # 5.1 103/ul Normal 1.4-6.5 [facility] Comment on above: Performed By: #### C BC #### [facility] [address] [place] [address] Dr. Jovanna Magana Neutrophils/100 WBC (Bld) 55.4 % Normal 43.0-75.0 [facility] Comment on above: Performed By: #### C BC #### [facility] [address] [place] [address] Dr. Jovanna Magana Platelet mean volume (Bld) [Entitic vol] 10.2 fL Normal 9.5-13.5 [facility] Comment on above: Performed By: #### C BC #### [facility] [address] [address] [address] Jovanna Magana PLT 181 103/ul Normal 150-450 [facility] Comment on above: Performed By: #### C BC #### [facility] [address] [address] [address] Jovanna Magana RBC 4.04 106/ul Critically low 4.20-5.40 [facility] Comment on above: Performed By: #### C BC #### [facility] [address] [address] [address] Jovanna Magana WBC 9.3 103/ul Normal 4.0-11.0 [facility] Comment on above: Performed By: #### C BC #### [facility] [address] [address] [address] Jovanna Magana CRPon 10-08-2022 CRP [Mass/Vol] mg/L Normal <=1.0 [facility] Comment on above: Performed By: #### B MP, CRP ####[facility] [address] [address]Dr. Jovanna Magana LACTATE/LACTIC ACIDon 2021 Lactate [Moles/Vol] 0.4 mmol/L Normal 0.4-1.[address] [facility] Comment on above: Performed By: #### L ACT #### [facility] [address] [address] [address] Jovanna Magana PROF CHEM 8 (BAS METB)on Anion gap [Moles/Vol] 12.6 mmol/L Normal [facility] Comment on above: Performed By: #### B MP, CRP #### [facility] [address] [address] [address] Jovanna Magana Calcium [Mass/Vol] 8.6 mg/dL Normal 8.5-10.1 [facility] Comment on above: Performed By: #### B MP, CRP #### [facility] [address] [address] [address] Jovanna Magana Chloride [Moles/Vol] 104 mmol/L Normal 98-107 [facility] Comment on above: Performed By: #### B MP, CRP #### [facility] [address] [address] [address] Jovanna Magana CO2 [Moles/Vol] 26.8 mmol/L Normal 21.0-32.0 [facility] Comment on above: Performed By: #### B MP, CRP #### [facility] [address] [address] [address] Jovanna Magana Creatinine [Mass/Vol] 0.52 mg/dL Critically low 0.55-1.02 [facility] Comment on above: Performed By: #### B MP, CRP #### [facility] [address] [address] [address] Jovanna Magana EGFR-AF PANAMANIAN >60 Normal >=60 [facility] Comment on above: Performed By: #### B MP, CRP #### [facility] [address] [address] [address] Jovanna Magana EGFR-NON AF PANAMANIAN >60 Normal >=60 [facility] Comment on above: Performed By: #### B MP, CRP #### [facility] [address] [address] [address] Jovanna Magana Glucose [Mass/Vol] 93 mg/dL Normal 74-106 [facility] Comment on above: Performed By: #### B MP, CRP #### [facility] [address] [address] [address] Jovanna Magana Potassium [Moles/Vol] 3.4 mmol/L Critically low 3.5-5.1 [facility] Comment on above: Performed By: #### B MP, CRP #### [facility] [address] [address] [address] Jovanna Magana Sodium [Moles/Vol] 140 mmol/L Normal 136-145 [facility] Comment on above: Performed By: #### B MP, CRP #### [facility] [address] [address] [address] Jovanna Magana Urea nitrogen [Mass/Vol] 11.0 mg/dL Normal 7.0-18.0 [facility] Comment on above: Performed By: #### B MP, CRP #### [facility] [address] [address] [address] Jovanna Magana Urea nitrogen/Creatinine [Mass ratio] 21.2 mg/mg Normal [facility] Comment on above: Performed By: #### B MP, CRP #### [facility] [id number] J[facility] mm/hr Normal <=20 [facility] Comment on above: Performed By: #### S EDR ####[facility] [address] [address]Dr. Jovanna Magana Physician Referralon 022 Physician Referral [phone] [id number] D:127 Normal [facility] Physician Referral [phone] [id number] D:127 Normal [facility] PROF 14(COMP METB)on 022 Albumin [Mass/Vol] 3.4 g/dL Normal 3.4-5.0 [facility] Comment on above: Performed By: #### V ITB12 #### [facility] [address] [address] [address] Jovanna Magana Albumin/Globulin [Mass ratio] 1.1 {ratio} Normal [facility] Comment on above: Performed By: #### V ITB12 #### [facility] [address] [address] [address] Jovanna Magana ALP [Catalytic activity/Vol] 88 U/L Normal 46-116 [facility] Comment on above: Performed By: #### V ITB12 #### [facility] [address] [address] [address] Jovanna Magana ALT [Catalytic activity/Vol] 11 U/L Critically low 14-59 [facility] Comment on above: Performed By: #### V ITB12 #### [facility] [address] [address] [address] Jovanna Magana Anion gap [Moles/Vol] 8.7 mmol/L Normal [facility] Comment on above: Performed By: #### V ITB12 #### [facility] [address] [place] [address] Dr. Jovanna Magana AST [Catalytic activity/Vol] 13 U/L Critically low 15-37 [facility] Comment on above: Performed By: #### V ITB12 #### [facility] [address] [place] [address] Dr. Jovanna Magana Bilirubin [Mass/Vol] 0.6 mg/dL Normal 0.2-1.0 [facility] Comment on above: Performed By: #### V ITB12 #### [facility] [address] [place] [address] Dr. Jovanna Magana Calcium [Mass/Vol] 8.7 mg/dL Normal 8.5-10.1 [facility] Comment on above: Performed By: #### V ITB12 #### [facility] [address] [place] [address] Dr. Jovanna Magana Chloride [Moles/Vol] 104 mmol/L Normal 98-107 [facility] Comment on above: Performed By: #### V ITB12 #### [facility] [address] [place] [address] Dr. Jovanna Magana CO2 [Moles/Vol] 31.9 mmol/L Normal 21.0-32.0 [facility] Comment on above: Performed By: #### V ITB12 #### [facility] [address] [place] [address] Dr. Jovanna Magana Creatinine [Mass/Vol] 0.65 mg/dL Normal 0.55-1.02 [facility] Comment on above: Performed By: #### V ITB12 #### [facility] [address] [place] [address] Dr. Jovanna Magana EGFR-AF PANAMANIAN >60 Normal >=60 [facility] Comment on above: Performed By: #### V ITB12 #### [facility] [address] [place] [address] Dr. Jovanna Magana EGFR-NON AF PANAMANIAN >60 Normal >=60 [facility] Comment on above: Performed By: #### V ITB12 #### [facility] [address] [place] [address] Dr. Jovanna Magana Globulin (S) [Mass/Vol] 3.2 g/dL Normal [facility] Comment on above: Performed By: #### V ITB12 #### [facility] [address] [address] [address] Jovanna Magana Glucose [Mass/Vol] 91 mg/dL Normal 74-106 [facility] Comment on above: Performed By: #### V ITB12 #### [facility] [address] [place] [address] Dr. Jovanna Magana Potassium [Moles/Vol] 3.6 mmol/L Normal 3.5-5.1 [facility] Comment on above: Performed By: #### V ITB12 #### [facility] [address] [place] [address] Dr. Jovanna Magana Protein [Mass/Vol] 6.6 g/dL Normal 6.4-8.2 [facility] Comment on above: Performed By: #### V ITB12 #### [facility] [address] [place] [address] Dr. Jovanna Magana Sodium [Moles/Vol] 141 mmol/L Normal 136-145 [facility] Comment on above: Performed By: #### V ITB12 #### [facility] [address] [place] [address] Dr. Jovanna Magana Urea nitrogen [Mass/Vol] 4.0 mg/dL Critically low 7.0-18.0 [facility] Comment on above: Performed By: #### V ITB12 #### [facility] [address] [place] [address] Dr. Jovanna Magana Urea nitrogen/Creatinine [Mass ratio] 6.2 mg/mg Normal [facility] Comment on above: Performed By: #### V ITB12 #### [facility] [address] [place] [address] Dr. Jovanna Magana HEPATITIS C AB CASCADE TO QU ANT PCR GENOon 09-13-2022 HCV AB <0.1 Normal 0.0-0.9 [facility] Comment on above: Performed By: #### H EPCASC #### [facility] [address] [place] [address] Dr. Jovanna Magana Interpretation: Comment Normal [facility] Comment on above: Result Comment: Nega tive Not infected with HCV, unless recent infection is suspected or other evidence exists to indicate HCV infection. Performed By: #### H EPCASC #### [facility] [address] [place] [address] Dr. Jovanna Magana CBC AUTO DIFFon 09-12-2022 BASO # 0.0 103/ul Normal 0.0-0.1 [facility] Comment on above: Performed By: #### C BC #### [facility] [address] [place] [address] Dr. Jovanna Magana Basophils/100 WBC (Bld) 0.3 % Normal 0.2-2.0 [facility] Comment on above: Performed By: #### C BC #### [facility] [address] [place] [address] Dr. Jovanna Magana EO # 0.1 103/ul Normal 0.0-0.7 [facility] Comment on above: Performed By: #### C BC #### [facility] [address] [place] [address] Dr. Jovanna Magana Eosinophils/100 WBC (Bld) 0.7 % Critically low 0.9-7.0 [facility] Comment on above: Performed By: #### C BC #### [facility] [address] [place] [address] Dr. Jovanna Magana Erythrocyte distribution width (RBC) [Ratio] 12.3 % Normal 11.0-15.0 [facility] Comment on above: Performed By: #### C BC #### [facility] [address] [place] [address] Dr. Jovanna Magana Hematocrit (Bld) [Volume fraction] 40.2 % Normal 36.0-48.0 [facility] Comment on above: Performed By: #### C BC #### [facility] [address] [place] [address] Dr. Jovanna Magana Hemoglobin (Bld) [Mass/Vol] 13.4 g/dL Normal 12.0-16.0 [facility] Comment on above: Performed By: #### C BC #### [facility] [address] [place] [address] Dr. Jovanna Magana IG # 0.02 10e3/ul Normal 0.00-0.03 [facility] Comment on above: Performed By: #### C BC #### [facility] [address] [place] [address] Dr. Jovanna Magana IG % 0.3 % Normal 0.0-0.5 [facility] Comment on above: Performed By: #### C BC #### [facility] [address] [place] [address] Dr. Jovanna Magana LYMPH # 2.2 103/ul Normal 1.2-3.8 [facility] Comment on above: Performed By: #### C BC #### [facility] [address] [place] [address] Dr. Jovanna Magana Lymphocytes/100 WBC (Bld) 31.9 % Normal 20.5-60.0 [facility] Comment on above: Performed By: #### C BC #### [facility] [address] [place] [address] Dr. Jovanna Magana MANUAL DIFF REQ NO Normal [facility] Comment on above: Performed By: #### C BC #### [facility] [address] [place] [address] Dr. Jovanna Magana MCH (RBC) [Entitic mass] 31.8 pg Normal 26.7-34.0 [facility] Comment on above: Performed By: #### C BC #### [facility] [address] [place] [address] Dr. Jovanna Magana MCHC (RBC) [Mass/Vol] 33.3 g/dL Normal 29.9-35.2 [facility] Comment on above: Performed By: #### C BC #### [facility] [address] [address] [address] Jovanna Magana MCV (RBC) [Entitic vol] 95.5 fL Normal 81.0-99.0 [facility] Comment on above: Performed By: #### C BC #### [facility] [address] [address] [address] Jovanna Magana MONO # 0.3 103/ul Normal 0.3-0.8 [facility] Comment on above: Performed By: #### C BC #### [facility] [address] [place] [address] Dr. Jovanna Magana Monocytes/100 WBC (Bld) 4.4 % Normal 1.7-12.0 [facility] Comment on above: Performed By: #### C BC #### [facility] [address] [place] [address] Dr. Jovanna Magana NEUT # 4.4 103/ul Normal 1.4-6.5 [facility] Comment on above: Performed By: #### C BC #### [facility] [address] [place] [address] Dr. Jovanna Magana Neutrophils/100 WBC (Bld) 62.4 % Normal 43.0-75.0 [facility] Comment on above: Performed By: #### C BC #### [facility] [address] [place] [address] Dr. Jovanna Magana Platelet mean volume (Bld) [Entitic vol] 10.9 fL Normal 9.5-13.5 [facility] Comment on above: Performed By: #### C BC #### [facility] [address] [place] [address] Dr. Jovanna Magana PLT 179 103/ul Normal 150-450 [facility] Comment on above: Performed By: #### C BC #### [facility] [address] [place] [address] Dr. Jovanna Magana RBC 4.21 106/ul Normal 4.20-5.40 [facility] Comment on above: Performed By: #### C BC #### [facility] [address] [place] [address] Dr. Jovanna Magana WBC 7.0 103/ul Normal 4.0-11.0 [facility] Comment on above: Performed By: #### C BC #### [facility] [address] [address] [address] Jovanna Magana GLYCOHEMOGLOBIN A1Con 2021 ADA RECOMMENDATION SEE BELOW Normal [facility] Comment on above: Result Comment: ADA RECOMMENDED LIMIT 4.0 - 6.0 ADA THERAPEUTIC TARGET < 7.0 ACTION SUGGESTED > 7.0 Performed By: #### L ACT #### [facility] [address] [address] [address] Jovanna Magana Glucose [Mass/Vol] 105 mg/dL Normal [facility] Comment on above: Performed By: #### L ACT #### [facility] [address] [address] [address] Jovanna Magnaa HbA1c (Bld) [Mass fraction] 5.3 % Normal 4.5-6.2 [facility] Comment on above: Performed By: #### L ACT #### [facility] [address] [address] [address] Jovanna Magana LIPID PROFILEon 09-12-2022 CHOL-HDL RATIO NORM SEE BELOW Normal [facility] Comment on above: Result Comment: 3.3 - 4.4 LOW RISK 4.4 - 7.1 AVERAGE RISK 7.1 - 11.0 MODERATE RISK >11.0 HIGH RISK Performed By: #### C MP, LIPID #### [facility] [address] [place] [address] Dr. Jovanna Magana Cholesterol [Mass/Vol] 135 mg/dL Normal <=200 [facility] Comment on above: Performed By: #### C MP, LIPID #### [facility] [address] [address] [address] Jovanna Magana Cholesterol in HDL [Mass/Vol] 35 mg/dL Critically low 40-60 [facility] Comment on above: Performed By: #### C MP, LIPID #### [facility] [address] [address] [address] Jovanna Magana Cholesterol in LDL [Mass/Vol] 84.8 mg/dL Normal [facility] Comment on above: Performed By: #### C MP, LIPID #### [facility] [address] [place] [address] Dr. Jovanna Magana Cholesterol.total/Ch olesterol in HDL [Mass ratio] 3.9 {ratio} Normal [facility] Comment on above: Performed By: #### C MP, LIPID #### [facility] [address] [place] [address] Dr. Jovanna Magana HDL NORMAL > or = 60 mg/dl - LO W CARDIOVASCULAR RISK <40 mg/dl - HIGH CARDIOVASCULAR RISK Normal [facility] Comment on above: Performed By: #### C MP, LIPID #### [facility] [address] [place] [address] Dr. Jovanna Magana LDL CALC NORMAL SEE BELOW Normal [facility] Comment on above: Result Comment: <100 mg/dl OPTIMAL 100 - 129 mg/dl NEAR OR ABOVE OPTIMAL 130 - 159 mg/dl BORDERLINE HIGH 160 - 189 mg/dl HIGH >190 mg/dl VERY HIGH Performed By: #### C MP, LIPID #### [facility] [address] [place] [address] Dr. Jovanna Magana Triglyceride [Mass/Vol] 76 mg/dL Normal <=150 [facility] Comment on above: Performed By: #### C MP, LIPID #### [facility] [address] [place] [address] Dr. Jovanna Magana VLDL CALC 15.2 mg/dL Normal [facility] Comment on above: Performed By: #### C MP, LIPID #### [facility] [address] [place] [address] Dr. Jovanna Magana PROF 14(COMP METB)on 022 Albumin [Mass/Vol] 3.5 g/dL Normal 3.4-5.0 [facility] Comment on above: Performed By: #### C MP, LIPID #### [facility] [address] [place] [address] Dr. Jovanna Magana Albumin/Globulin [Mass ratio] 1.1 {ratio} Normal [facility] Comment on above: Performed By: #### C MP, LIPID #### [facility] [address] [address] [address] Jovanna Magana ALP [Catalytic activity/Vol] 79 U/L Normal 46-116 [facility] Comment on above: Performed By: #### C MP, LIPID #### [facility] [address] [address] [address] Jovanna Magana ALT [Catalytic activity/Vol] 15 U/L Normal 14-59 [facility] Comment on above: Performed By: #### C MP, LIPID #### [facility] [address] [address] [address] Jovanna Magana Anion gap [Moles/Vol] 4.9 mmol/L Normal [facility] Comment on above: Performed By: #### C MP, LIPID #### [facility] [address] [address] [address] Jovanna Magana AST [Catalytic activity/Vol] 17 U/L Normal 15-37 [facility] Comment on above: Performed By: #### C MP, LIPID #### [facility] [address] [address] [address] Jovanna Magana Bilirubin [Mass/Vol] 0.4 mg/dL Normal 0.2-1.0 [facility] Comment on above: Performed By: #### C MP, LIPID #### [facility] [address] [address] [address] Jovanna Magana Calcium [Mass/Vol] 8.7 mg/dL Normal 8.5-10.1 [facility] Comment on above: Performed By: #### C MP, LIPID #### [facility] [address] [address] [address] Jovanna Magana Chloride [Moles/Vol] 103 mmol/L Normal 98-107 [facility] Comment on above: Performed By: #### C MP, LIPID #### [facility] [address] [address] [address] Jovanna Magana CO2 [Moles/Vol] 35.8 mmol/L Critically high 21.0-32.0 [facility] Comment on above: Performed By: #### C MP, LIPID #### [facility] [address] [address] [address] Jovanna Magana Creatinine [Mass/Vol] 0.70 mg/dL Normal 0.55-1.02 [facility] Comment on above: Performed By: #### C MP, LIPID #### [facility] [address] [address] [address] Jovanna Magana EGFR-AF PANAMANIAN >60 Normal >=60 [facility] Comment on above: Performed By: #### C MP, LIPID #### [facility] [address] [address] [address] Jovanna Magana EGFR-NON AF PANAMANIAN >60 Normal >=60 [facility] Comment on above: Performed By: #### C MP, LIPID #### [facility] [address] [address] [address] Jovanna Magana Globulin (S) [Mass/Vol] 3.2 g/dL Normal [facility] Comment on above: Performed By: #### C MP, LIPID #### [facility] [address] [address] [address] Jovanna Magana Glucose [Mass/Vol] 86 mg/dL Normal 74-106 [facility] Comment on above: Performed By: #### C MP, LIPID #### [facility] [address] [address] [address] Jovanna Magana Potassium [Moles/Vol] 2.7 mmol/L Critically low 3.5-5.1 [facility] Comment on above: Performed By: #### C MP, LIPID #### [facility] [address] [address] [address] Jovanna Magana Protein [Mass/Vol] 6.7 g/dL Normal 6.4-8.2 [facility] Comment on above: Performed By: #### C MP, LIPID #### [facility] [address] [address] [address] Jovanna Magana Sodium [Moles/Vol] 141 mmol/L Normal 136-145 [facility] Comment on above: Performed By: #### C MP, LIPID #### [facility] [address] [address] [address] Jovanna Magana Urea nitrogen [Mass/Vol] 6.0 mg/dL Critically low 7.0-18.0 [facility] Comment on above: Performed By: #### C MP, LIPID #### [facility] [address] [address] [address] Jovanna Magana Urea nitrogen/Creatinine [Mass ratio] 8.6 mg/mg Normal [facility] Comment on above: Performed By: #### C MP, LIPID #### [facility] [id number] Jovanna Magana US THYROIDon 09-12-2022 US [...] FRANCES AGUSTIN Date: 2022-09-12 11:52 Normal [facility] VITAMIN B12on 09-12-2022 Cobalamin (Vitamin B12) [Mass/Vol] 280.0 pg/mL Normal 193.0-986.0 [facility] Comment on above: Performed By: #### V ITB12 #### [facility] [address] [address] CSPINE WO CONon [...] MAN VILLALOBOS Date: 2022-08-24 18:11 Normal [facility] CT NECK ST W CONon 2 [...] WOO PAIGE Date: 2022-08-16 23:10 Normal [facility] CBC AUTO DIFFon 08-16-2022 BASO # 0.0 103/ul Normal 0.0-0.1 [facility] Comment on above: Performed By: #### C BC ####[facility] [address] [id number]. Jovanna Magana Basophils/100 WBC (Bld) 0.2 % Normal 0.2-2.0 [facility] Comment on above: Performed By: #### C BC ####[facility] [address] [place], [place] [id number]. Jovanna Magana EO # 0.1 103/ul Normal 0.0-0.7 [facility] Comment on above: Performed By: #### C BC ####[facility] [address] [address]Dr. Jovanna Magana Eosinophils/100 WBC (Bld) 0.7 % Critically low 0.9-7.0 [facility] Comment on above: Performed By: #### C BC ####[facility] [address] [place], [place] [address]Dr. Jovanna Magana Erythrocyte distribution width (RBC) [Ratio] 12.1 % Normal 11.0-15.0 [facility] Comment on above: Performed By: #### C BC ####[facility] [address] [place], [place] [address]Dr. Jovanna Magana Hematocrit (Bld) [Volume fraction] 38.8 % Normal 36.0-48.0 [facility] Comment on above: Performed By: #### C BC ####[facility] [address] [place], [place] [address]Dr. Jovanna Magana Hemoglobin (Bld) [Mass/Vol] 12.8 g/dL Normal 12.0-16.0 [facility] Comment on above: Performed By: #### C BC ####[facility] [address] [place], [place] [address]Dr. Jovanna Magana IG # 0.06 10e3/ul Critically high 0.00-0.03 [facility] Comment on above: Performed By: #### C BC ####[facility] [address] [place], [place] [address]Dr. Jovanna Magana IG % 0.4 % Normal 0.0-0.5 [facility] Comment on above: Performed By: #### C BC ####[facility] [address] [id number]. Jovanna Magana LYMPH # 2.5 103/ul Normal 1.2-3.8 [facility] Comment on above: Performed By: #### C BC ####[facility] [address] [id number]. Jovanna Magana Lymphocytes/100 WBC (Bld) 18.1 % Critically low 20.5-60.0 [facility] Comment on above: Performed By: #### C BC ####[facility] [address] [address]Dr. Jovanna Magana MANUAL DIFF REQ NO Normal [facility] Comment on above: Performed By: #### C BC ####[facility] [address] [address]Dr. Jovanna Magana MCH (RBC) [Entitic mass] 32.0 pg Normal 26.7-34.0 [facility] Comment on above: Performed By: #### C BC ####[facility] [address] [id number]. Jovanna Magana MCHC (RBC) [Mass/Vol] 33.0 g/dL Normal 29.9-35.2 [facility] Comment on above: Performed By: #### C BC ####[facility] [address] [id number] Magana MCV (RBC) [Entitic vol] 97.0 fL Normal 81.0-99.0 [facility] Comment on above: Performed By: #### C BC ####[facility] [address] [id number] Magana MONO # 0.6 103/ul Normal 0.3-0.8 [facility] Comment on above: Performed By: #### C BC ####[facility] [address] [id number]. Jovanna Magana Monocytes/100 WBC (Bld) 4.5 % Normal 1.7-12.0 [facility] Comment on above: Performed By: #### C BC ####[facility] [address] [id number] Magana NEUT # 10.4 103/ul Critically high 1.4-6.5 [facility] Comment on above: Performed By: #### C BC ####[facility] [address] [id number] Magana Neutrophils/100 WBC (Bld) 76.1 % Critically high 43.0-75.0 [facility] Comment on above: Performed By: #### C BC ####[facility] [address] [id number]. Jovanna Magana Platelet mean volume (Bld) [Entitic vol] 10.9 fL Normal 9.5-13.5 [facility] Comment on above: Performed By: #### C BC ####[facility] [address] [id number]. Jovanna Magana PLT 193 103/ul Normal 150-450 [facility] Comment on above: Performed By: #### C BC ####[facility] [address] [id number]. Jovanna Magana RBC 4.00 106/ul Critically low 4.20-5.40 [facility] Comment on above: Performed By: #### C BC ####[facility] [address] [id number] Magana WBC 13.7 103/ul Critically high 4.0-11.0 [facility] Comment on above: Performed By: #### C BC ####[facility] [address] [id number]. Jovanna Magana FREE T4on 08-16-2022 Free T4 [Mass/Vol] 0.68 ng/dL Critically low 0.76-1.46 [facility] Comment on above: Performed By: #### L ACT #### [facility] [address] [place], [place] [address] Dr. Jovanna Magana HS-CRPon 08-16-2022 HS-CRP 1.04 mg/L Normal <=3.00 [facility] Comment on above: Performed By: #### L ACT #### [facility] [address] [place] [address] Dr. Jovanna Magana PROF 14(COMP METB)on 022 Albumin [Mass/Vol] 3.5 g/dL Normal 3.4-5.0 [facility] Comment on above: Performed By: #### V ITB12 #### [facility] [address] [place] [address] Dr. Jovanna Magana Albumin/Globulin [Mass ratio] 1.1 {ratio} Normal [facility] Comment on above: Performed By: #### V ITB12 #### [facility] [address] [place] [address] Dr. Jovanna Magana ALP [Catalytic activity/Vol] 82 U/L Normal 46-116 [facility] Comment on above: Performed By: #### V ITB12 #### [facility] [address] [place] [address] Dr. Jovanna Magana ALT [Catalytic activity/Vol] 17 U/L Normal 14-59 [facility] Comment on above: Performed By: #### V ITB12 #### [facility] [address] [place] [address] Dr. Jovanna Magana Anion gap [Moles/Vol] 9.6 mmol/L Normal [facility] Comment on above: Performed By: #### V ITB12 #### [facility] [address] [place] [address] Dr. Jovanna Magana AST [Catalytic activity/Vol] 17 U/L Normal 15-37 [facility] Comment on above: Performed By: #### V ITB12 #### [facility] [address] [place] [address] Dr. Jovanna Magana Bilirubin [Mass/Vol] 0.4 mg/dL Normal 0.2-1.0 [facility] Comment on above: Performed By: #### V ITB12 #### [facility] [address] [place] [address] Dr. Jovanna Magana Calcium [Mass/Vol] 8.7 mg/dL Normal 8.5-10.1 [facility] Comment on above: Performed By: #### V ITB12 #### [facility] [address] [place] [address] Dr. Jovanna Magana Chloride [Moles/Vol] 105 mmol/L Normal 98-107 [facility] Comment on above: Performed By: #### V ITB12 #### [facility] [address] [place] [address] Dr. Jovanna Magaan CO2 [Moles/Vol] 30.9 mmol/L Normal 21.0-32.0 [facility] Comment on above: Performed By: #### V ITB12 #### [facility] [address] [place] [address] Dr. Jovanna Magana Creatinine [Mass/Vol] 0.69 mg/dL Normal 0.55-1.02 [facility] Comment on above: Performed By: #### V ITB12 #### [facility] [address] [place] [address] Dr. Jovanna Magana EGFR-AF PANAMANIAN >60 Normal >=60 [facility] Comment on above: Performed By: #### V ITB12 #### [facility] [address] [place] [address] Dr. Jovanna Magana EGFR-NON AF PANAMANIAN >60 Normal >=60 [facility] Comment on above: Performed By: #### V ITB12 #### [facility] [address] [place] [address] Dr. Jovanna Magana Globulin (S) [Mass/Vol] 3.1 g/dL Normal [facility] Comment on above: Performed By: #### V ITB12 #### [facility] [address] [place] [address] Dr. Jovanna Magana Glucose [Mass/Vol] 84 mg/dL Normal 74-106 [facility] Comment on above: Performed By: #### V ITB12 #### [facility] [address] [place] [address] Dr. Jovanna Magana Potassium [Moles/Vol] 3.5 mmol/L Normal 3.5-5.1 [facility] Comment on above: Performed By: #### V ITB12 #### [facility] [address] [place] [address] Dr. Jovanna Magana Protein [Mass/Vol] 6.6 g/dL Normal 6.4-8.2 [facility] Comment on above: Performed By: #### V ITB12 #### [facility] [address] [place] [address] Dr. Jovanna Magana Sodium [Moles/Vol] 142 mmol/L Normal 136-145 [facility] Comment on above: Performed By: #### V ITB12 #### [facility] [address] [place] [address] Dr. Jovanna Magana Urea nitrogen [Mass/Vol] 7.0 mg/dL Normal 7.0-18.0 [facility] Comment on above: Performed By: #### V ITB12 #### [facility] [address] [place] [address] Dr. Jovanna Magana Urea nitrogen/Creatinine [Mass ratio] 10.1 mg/mg Normal [facility] Comment on above: Performed By: #### V ITB12 #### [facility] [address] [place] [address] Dr. Jovanna Magana PROF CHEM 8 (BAS METB)on Anion gap [Moles/Vol] 8.5 mmol/L Normal [facility] Comment on above: Performed By: #### L ACT #### [facility] [address] [place] [address] Dr. Jovanna Magana Calcium [Mass/Vol] 8.3 mg/dL Critically low 8.5-10.1 Th [facility] Comment on above: Performed By: #### L ACT #### [facility] [address] [place] [address] Dr. Jovanna Magana Chloride [Moles/Vol] 105 mmol/L Normal 98-107 [facility] [facility] Comment on above: Performed By: #### L ACT #### [facility] [address] [place] [address] Dr. Jovanna Magana CO2 [Moles/Vol] 28.4 mmol/L Normal 21.0-32.0 [facility] Comment on above: Performed By: #### L ACT #### [facility] [address] [address] [address] Jovanna Magana Creatinine [Mass/Vol] 0.72 mg/dL Normal 0.55-1.02 [facility] Comment on above: Performed By: #### L ACT #### [facility] [address] [address] [address] Jovanna Magana EGFR-AF PANAMANIAN >60 Normal >=60 [facility] Comment on above: Performed By: #### L ACT #### [facility] [address] [place] [address] Dr. Jovanna Magana EGFR-NON AF PANAMANIAN >60 Normal >=60 [facility] Comment on above: Performed By: #### L ACT #### [facility] [address] [place] [address] Dr. Jovanna Magana Glucose [Mass/Vol] 242 mg/dL Critically high 74-106 [facility] Comment on above: Performed By: #### L ACT #### [facility] [address] [place] [address] Dr. Jovanna Magana Potassium [Moles/Vol] 2.9 mmol/L Critically low 3.5-5.1 [facility] Comment on above: Performed By: #### L ACT #### [facility] [address] [place] [address] Dr. Jovanna Magana Sodium [Moles/Vol] 138 mmol/L Normal 136-145 [facility] Comment on above: Performed By: #### L ACT #### [facility] [address] [address] [address] Jovanna Magana Urea nitrogen [Mass/Vol] 5.0 mg/dL Critically low 7.0-18.0 [facility] Comment on above: Performed By: #### L ACT #### [facility] [address] [address] [address] Jovanna Magana Urea nitrogen/Creatinine [Mass ratio] 6.9 mg/mg Normal [facility] Comment on above: Performed By: #### L ACT #### [facility] [address] [address] [address] Jovanna Magana TSHon 08-16-2022 TSH 4.977 uIU/mL Critically high 0.358-3.740 [facility] Comment on above: Performed By: #### V ITB12 #### [facility] [id number] Jovanna Magana [address] ABD/PELVIS WO CONon [...] Ayaka LEON Date: 2022-05-02 03:06 Normal [facility] DRUG SCREEN RAPID (URINE)on 05-02-2022 AMP Negative Normal NEGATIVE [facility] Comment on above: Performed By: #### L ACT #### [facility] [id number] Jovanna Magana BAR Negative Normal NEGATIVE [facility] Comment on above: Performed By: #### L ACT #### [facility] [address] [place] [address] Dr. Jovanna Magana BUP Negative Normal NEGATIVE [facility] Comment on above: Performed By: #### L ACT #### [facility] [address] [place] [address] Dr. Jovanna Magana BZO Negative Normal NEGATIVE [facility] Comment on above: Performed By: #### L ACT #### [facility] [address] [place] [address] Dr. Jovanna Magana CARA Negative Normal NEGATIVE [facility] Comment on above: Performed By: #### L ACT #### [facility] [address] [place] [address] Dr. Jovanna Magana CUT-OFFS SEE BELOW Normal [facility] Comment on above: Result Comment: AMP [...] ng/mL Performed By: #### L ACT #### [facility] [address] [place] [address] Dr. Jovanna Magana DRUG CUT HEADER DRUG CLASS TEST SYST EM CUT-OFF CONCENTRATIONS ARE FOLLOWS: Normal [facility] Comment on above: Performed By: #### L ACT #### [facility] [address] [place] [address] Dr. Jovanna Maagna mAMP Negative Normal NEGATIVE [facility] Comment on above: Performed By: #### L ACT #### [facility] [address] [place] [address] Dr. Jovanna Magana MTD Negative Normal NEGATIVE [facility] Comment on above: Performed By: #### L ACT #### [facility] [address] [address] [address] Jovanna Magana OPI Positive Abnormal NEGATIVE [facility] Comment on above: Performed By: #### L ACT #### [facility] [address] [address] [address] Jovanna Magana OXY Negative Normal NEGATIVE [facility] Comment on above: Performed By: #### L ACT #### [facility] [address] [address] [address] Jovanna Magana PCP Negative Normal NEGATIVE [facility] Comment on above: Performed By: #### L ACT #### [facility] [address] [place] [address] Dr. Jovanna Magana PPX Negative Normal NEGATIVE [facility] Comment on above: Performed By: #### L ACT #### [facility] [address] [place] [address] Dr. Jovanna Magana TCA Negative Normal NEGATIVE [facility] Comment on above: Performed By: #### L ACT #### [facility] [address] [place] [address] Dr. Jovanna Magana THC Positive Abnormal NEGATIVE [facility] Comment on above: Performed By: #### L ACT #### [facility] [address] [place] [address] Dr. Jovanna Magana ER URINE PROFILEon 2 Bilirubin Ql (U) Negative Normal NEGATIVE [facility] Comment on above: Performed By: #### L ACT #### [facility] [address] [place] [address] Dr. Jovanna Magana Clarity (U) CLEAR Normal CLEAR [facility] Comment on above: Performed By: #### L ACT #### [facility] [address] [place] [address] Dr. Jovanna Magana Color (U) LT. YELLOW Normal YELLOW [facility] Comment on above: Performed By: #### L ACT #### [facility] [address] [place] [address] Dr. Jovanna Magana ERUAHD A micrscopic examination will be performed if indicated. Normal [facility] Comment on above: Performed By: #### L ACT #### [facility] [address] [address] [address] Jovanna Magana Glucose Ql (U) Negative Normal NEGATIVE [facility] Comment on above: Performed By: #### L ACT #### [facility] [address] [address] [address] Jovanna Magana Hemoglobin Ql (U) Negative Normal NEGATIVE [facility] Comment on above: Performed By: #### L ACT #### [facility] [address] [address] [address] Jovanna Magana Ketones Ql (U) Negative Normal NEGATIVE [facility] Comment on above: Performed By: #### L ACT #### [facility] [address] [place] [address] Dr. Jovanna Magana LEUKOCYTES Negative Normal NEGATIVE [facility] Comment on above: Performed By: #### L ACT #### [facility] [address] [place] [address] Dr. Jovanna Magana Nitrite Ql (U) Negative Normal NEGATIVE [facility] Comment on above: Performed By: #### L ACT #### [facility] [address] [place] [address] Dr. Jovanna Magana pH (U) 6.0 [pH] Normal 5-9 [facility] Comment on above: Performed By: #### L ACT #### [facility] [address] [place] [address] Dr. Jovanna Magana SPEC GRAVITY <=1.005 Abnormal 1.005-<=1.02 5 [facility] Comment on above: Performed By: #### L ACT #### [facility] [address] [place] [address] Dr. Jovanna Magana UA PROTEIN Negative Normal NEGATIVE/ TRACE [facility] Comment on above: Performed By: #### L ACT #### [facility] [address] [place] [address] Dr. Jovanna Magana UR MICRO IND NOT INDICATED Normal [facility] Comment on above: Performed By: #### L ACT #### [facility] [address] [place] [address] Dr. Jovanna Magana Urobilinogen Qn (U) 0.2 {Isabella'U}/dL Normal 0.2 - 1. 0 [facility] Comment on above: Performed By: #### L ACT #### [facility] [address] [place] [address] Dr. Jovanna Magana CBC AUTO DIFFon 04-20-2022 BASO # 0.0 103/ul Normal 0.0-0.1 [facility] Comment on above: Performed By: #### L ACT #### [facility] [address] [place] [address] Dr. Jovanna Magana Basophils/100 WBC (Bld) 0.1 % Critically low 0.2-2.0 [facility] Comment on above: Performed By: #### L ACT #### [facility] [address] [place] [address] Dr. Jovanna Magana EO # 0.0 103/ul Normal 0.0-0.7 [facility] Comment on above: Performed By: #### L ACT #### [facility] [address] [place] [address] Dr. Jovanna Magana Eosinophils/100 WBC (Bld) 0.1 % Critically low 0.9-7.0 [facility] Comment on above: Performed By: #### L ACT #### [facility] [address] [place] [address] Dr. Jovanna Magana Erythrocyte distribution width (RBC) [Ratio] 12.6 % Normal 11.0-15.0 [facility] Comment on above: Performed By: #### L ACT #### [facility] [address] [place] [address] Dr. Jovanna Magana Hematocrit (Bld) [Volume fraction] 38.8 % Normal 36.0-48.0 [facility] Comment on above: Performed By: #### L ACT #### [facility] [address] [place] [address] Dr. Jovanna Magana Hemoglobin (Bld) [Mass/Vol] 12.6 g/dL Normal 12.0-16.0 [facility] Comment on above: Performed By: #### L ACT #### [facility] [address] [address] [address] Jovanna Magana IG # 0.13 10e3/ul Critically high 0.00-0.03 [facility] Comment on above: Performed By: #### L ACT #### [facility] [address] [place] [address] Dr. Jovanna Magana IG % 1.0 % Critically high 0.0-0.5 [facility] Comment on above: Performed By: #### L ACT #### [facility] [address] [place] [address] Dr. Jovanna Magana LYMPH # 1.1 103/ul Critically low 1.2-3.8 [facility] Comment on above: Performed By: #### L ACT #### [facility] [address] [place] [address] Dr. Jovanna Magana Lymphocytes/100 WBC (Bld) 8.3 % Critically low 20.5-60.0 [facility] Comment on above: Performed By: #### L ACT #### [facility] [address] [place] [address] Dr. Jovanna Magana MANUAL DIFF REQ NO Normal [facility] Comment on above: Performed By: #### L ACT #### [facility] [address] [place] [address] Dr. Jovanna Magana MCH (RBC) [Entitic mass] 31.0 pg Normal 26.7-34.0 [facility] Comment on above: Performed By: #### L ACT #### [facility] [address] [place] [address] Dr. Jovanna Magana MCHC (RBC) [Mass/Vol] 32.5 g/dL Normal 29.9-35.2 [facility] Comment on above: Performed By: #### L ACT #### [facility] [address] [place] [address] Dr. Jovanna Magana MCV (RBC) [Entitic vol] 95.3 fL Normal 81.0-99.0 [facility] Comment on above: Performed By: #### L ACT #### [facility] [address] [address] [address] Jovanna Magana MONO # 0.8 103/ul Normal 0.3-0.8 [facility] Comment on above: Performed By: #### L ACT #### [facility] [address] [address] [address] Jovanna Magana Monocytes/100 WBC (Bld) 5.8 % Normal 1.7-12.0 [facility] Comment on above: Performed By: #### L ACT #### [facility] [address] [address] [address] Jovanna Magana NEUT # 11.4 103/ul Critically high 1.4-6.5 [facility] Comment on above: Performed By: #### L ACT #### [facility] [address] [place] [address] Dr. Jovanna Magana Neutrophils/100 WBC (Bld) 84.7 % Critically high 43.0-75.0 [facility] Comment on above: Performed By: #### L ACT #### [facility] [address] [place] [address] Dr. Jovanna Magana Platelet mean volume (Bld) [Entitic vol] 10.1 fL Normal 9.5-13.5 [facility] Comment on above: Performed By: #### L ACT #### [facility] [address] [place] [address] Dr. Jovanna Magana PLT 205 103/ul Normal 150-450 [facility] Comment on above: Performed By: #### L ACT #### [facility] [address] [place] [address] Dr. Jovanna Magana RBC 4.07 106/ul Critically low 4.20-5.40 [facility] Comment on above: Performed By: #### L ACT #### [facility] [address] [address] [address] Jovanna Magana WBC 13.4 103/ul Critically high 4.0-11.0 [facility] Comment on above: Performed By: #### L ACT #### [facility] [address] [address] [address] Jovanna Magana DRUG SCREEN RAPID (URINE)on 04-20-2022 AMP Negative Normal NEGATIVE [facility] Comment on above: Performed By: #### U MICRO, ERUR, DRUGRPD ####[facility] [address] [address]Dr. Jovanna Magana BAR Negative Normal NEGATIVE [facility] Comment on above: Performed By: #### U MICRO, ERUR, DRUGRPD ####[facility] [address] [address]Dr. Jovanna Magana BUP Negative Normal NEGATIVE [facility] Comment on above: Performed By: #### U MICRO, ERUR, DRUGRPD ####[facility] [address] [address]Dr. Jovanna Magana BZO Negative Normal NEGATIVE [facility] Comment on above: Performed By: #### U MICRO, ERUR, DRUGRPD ####[facility] [address] [address]Dr. Jovanna Magana CARA Negative Normal NEGATIVE [facility] Comment on above: Performed By: #### U MICRO, ERUR, DRUGRPD ####[facility] [address] [address]Dr. Jovanna Magana CUT-OFFS SEE BELOW Normal [facility] Comment on above: Result Comment: AMP [...] Performed By: #### U MICRO, ERUR, DRUGRPD ####[facility] [address] [address]Dr. Jovanna [employer] DRUG CUT HEADER DRUG CLASS TEST SYST EM CUT-OFF CONCENTRATIONS ARE FOLLOWS: Normal [facility] Comment on above: Performed By: #### U MICRO, ERUR, DRUGRPD ####[facility] [address] [address]Dr. Jovanna Magana mAMP Negative Normal NEGATIVE [facility] Comment on above: Performed By: #### U MICRO, ERUR, DRUGRPD ####[facility] [address] [address]Dr. Jovanna Magana MTD Negative Normal NEGATIVE [facility] Comment on above: Performed By: #### U MICRO, ERUR, DRUGRPD ####[facility] [address] [address]Dr. Jovanna Magana OPI Positive Abnormal NEGATIVE [facility] Comment on above: Performed By: #### U MICRO, ERUR, DRUGRPD ####[facility] [address] [address]Dr. Jovanna Magana OXY Negative Normal NEGATIVE [facility] Comment on above: Performed By: #### U MICRO, ERUR, DRUGRPD ####[facility] [address] [address]Dr. Jovanna Magana PCP Negative Normal NEGATIVE [facility] Comment on above: Performed By: #### U MICRO, ERUR, DRUGRPD ####[facility] [address] [address]Dr. Jovanna Magana PPX Negative Normal NEGATIVE [facility] Comment on above: Performed By: #### U MICRO, ERUR, DRUGRPD ####[facility] [address] [address]Dr. Jovanna Magana TCA Negative Normal NEGATIVE [facility] Comment on above: Performed By: #### U MICRO, ERUR, DRUGRPD ####[facility] [address] [address]Dr. Jovanna Magana THC Positive Abnormal NEGATIVE [facility] Comment on above: Performed By: #### U MICRO, ERUR, DRUGRPD ####[facility] [address] [address]. Rosaliareagan Magana ER URINE PROFILEon 2 Bilirubin Ql (U) Negative Normal NEGATIVE [facility] Comment on above: Performed By: #### U MICRO, ERUR, DRUGRPD ####[facility] [address] [address]Dr. Jovanna Magana Clarity (U) CLEAR Normal CLEAR [facility] Comment on above: Performed By: #### U MICRO, ERUR, DRUGRPD ####[facility] [address] [address]Dr. Jovanna Magana Color (U) LT. YELLOW Normal YELLOW [facility] Comment on above: Performed By: #### U MICRO, ERUR, DRUGRPD ####[facility] [address] [place], [place] [address]Dr. Jovanna Magana ERUAHD A micrscopic examination will be performed if indicated. Normal [facility] Comment on above: Performed By: #### U MICRO, ERUR, DRUGRPD ####[facility] [address] [place], [place] [address]Dr. Jovanna Magana Glucose Ql (U) >1000 Abnormal NEGATIVE [facility] Comment on above: Performed By: #### U MICRO, ERUR, DRUGRPD ####[facility] [address] [place], [place] [address]Dr. Jovanna Magana Hemoglobin Ql (U) Negative Normal NEGATIVE [facility] Comment on above: Performed By: #### U MICRO, ERUR, DRUGRPD ####[facility] [address] [address]Dr. Jovanna Magana Ketones Ql (U) Negative Normal NEGATIVE [facility] Comment on above: Performed By: #### U MICRO, ERUR, DRUGRPD ####[facility] [address] [place], [place] [address]Dr. Rosalialan Magana LEUKOCYTES Negative Normal NEGATIVE [facility] Comment on above: Performed By: #### U MICRO, ERUR, DRUGRPD ####[facility] [address] [place], [place] [address]Dr. Jovanna Magana Nitrite Ql (U) Negative Normal NEGATIVE [facility] Comment on above: Performed By: #### U MICRO, ERUR, DRUGRPD ####[facility] [address] [address]Dr. Jovanna Magana pH (U) 6.5 [pH] Normal 5-9 [facility] Comment on above: Performed By: #### U MICRO, ERUR, DRUGRPD ####[facility] [address] [address]Dr. Jovanna Magana Protein (U) [Mass/Vol] 30 mg/dL Abnormal NEGATIVE/ TRACE [facility] Comment on above: Performed By: #### U MICRO, ERUR, DRUGRPD ####[facility] [address] [address]Dr. Jovanna Magana SPEC GRAVITY 1.015 Normal 1.005-<=1.02 5 [facility] Comment on above: Performed By: #### U MICRO ERUR, DRUGRPD ####[facility] [address] [address]Dr. Jovanna Magana UR MICRO IND INDICATED Normal [facility] Comment on above: Performed By: #### U MICRO, ERUR, DRUGRPD ####[facility] [address] [address]Dr. Jovanna Magana Urobilinogen Qn (U) 1.0 {Isabella'U}/dL Normal 0.2 - 1. 0 [facility] Comment on above: Performed By: #### U MICRO, ERUR, DRUGRPD ####[facility] [address] [address]Dr. Jovanna Magana LACTATE/LACTIC ACIDon 2021 Lactate [Moles/Vol] 1.7 mmol/L Normal 0.4-1.[address] [facility] Comment on above: Performed By: #### L ACT #### [facility] [address] [address] [address] Jovanna Magana PROF 14(COMP METB)on 022 Albumin [Mass/Vol] 3.4 g/dL Normal 3.4-5.0 [facility] Comment on above: Performed By: #### V ITB12 #### [facility] [address] [place] [address] Dr. Jovanna Magana Albumin/Globulin [Mass ratio] 1.1 {ratio} Normal [facility] Comment on above: Performed By: #### V ITB12 #### [facility] [address] [place] [address] Dr. Jovanna Magana ALP [Catalytic activity/Vol] 99 U/L Normal 46-116 [facility] Comment on above: Performed By: #### V ITB12 #### [facility] [address] [place] [address] Dr. Jovanna Magana ALT [Catalytic activity/Vol] 32 U/L Normal 14-59 [facility] Comment on above: Performed By: #### V ITB12 #### [facility] [address] [place] [address] Dr. Jovanna Magana Anion gap [Moles/Vol] 10.0 mmol/L Normal [facility] Comment on above: Performed By: #### V ITB12 #### [facility] [address] [place] [address] Dr. Jovanna Magana AST [Catalytic activity/Vol] 38 U/L Critically high 15-37 [facility] Comment on above: Performed By: #### V ITB12 #### [facility] [address] [place] [address] Dr. Jovanna Magana Bilirubin [Mass/Vol] 0.8 mg/dL Normal 0.2-1.0 [facility] Comment on above: Performed By: #### V ITB12 #### [facility] [address] [address] [address] Jovanna Magana Calcium [Mass/Vol] 8.1 mg/dL Critically low 8.5-10.1 [facility] Comment on above: Performed By: #### V ITB12 #### [facility] [address] [place] [address] Dr. Jovanna Magana Chloride [Moles/Vol] 102 mmol/L Normal 98-107 [facility] Comment on above: Performed By: #### V ITB12 #### [facility] [address] [address] [address] Jovanna Magana CO2 [Moles/Vol] 31.1 mmol/L Normal 21.0-32.0 [facility] Comment on above: Performed By: #### V ITB12 #### [facility] [address] [address] [address] Jovanna Magana Creatinine [Mass/Vol] 0.78 mg/dL Normal 0.55-1.02 [facility] Comment on above: Performed By: #### V ITB12 #### [facility] [address] [place] [address] Dr. Jovanna Magana EGFR-AF PANAMANIAN >60 Normal >=60 [facility] Comment on above: Performed By: #### V ITB12 #### [facility] [address] [place] [address] Dr. Jovanna Magana EGFR-NON AF PANAMANIAN >60 Normal >=60 [facility] Comment on above: Performed By: #### V ITB12 #### [facility] [address] [address] [address] Jovanna Magana Globulin (S) [Mass/Vol] 3.2 g/dL Normal [facility] Comment on above: Performed By: #### V ITB12 #### [facility] Laboratory [address] [address] [address] Jovanna Magana Glucose [Mass/Vol] 251 mg/dL Critically high 74-106 [facility] Comment on above: Performed By: #### V ITB12 #### [facility] [address] [address] [address] Jovanna Magana Potassium [Moles/Vol] 3.1 mmol/L Critically low 3.5-5.1 [facility] Comment on above: Performed By: #### V ITB12 #### [facility] [address] [place] [address] Dr. Jovanna Magana Protein [Mass/Vol] 6.6 g/dL Normal 6.4-8.2 [facility] Comment on above: Performed By: #### V ITB12 #### [facility] [address] [address] [address] Jovanna Magana Sodium [Moles/Vol] 140 mmol/L Normal 136-145 [facility] Comment on above: Performed By: #### V ITB12 #### [facility] [address] [address] [address] Jovanna Magana Urea nitrogen [Mass/Vol] 8.0 mg/dL Normal 7.0-18.0 [facility] Comment on above: Performed By: #### V ITB12 #### [facility] [address] [address] [address] Jovanna Magana Urea nitrogen/Creatinine [Mass ratio] 10.3 mg/mg Normal [facility] Comment on above: Performed By: #### V ITB12 #### [facility] [address] [address] [address] Jovanna Magana TROPONIN, HIGH SENSITIVITYon 04-20-2022 HSTROP 13.8 pg/mL Normal 4.0-51.3 [facility] Comment on above: Result Comment: CUT- OFF POINTS HAVE BEEN ESTABLISHED BASED ON THE FOURTH UNIVERSAL DEFINITIONS OF MYOCARDIAL INFARCTION. THE UPPER REFERENCE LIMIT (URL) OF TROPONIN, DEFINED THE 99TH PERCENTILE OF cTnI DISTRIBUTION IN A REFERENCE POPULATION, HAS BEEN CONFIRMED THE DECISION THRESHOLD FOR [place] DIAGNOSIS. Performed By: #### V ITB12 #### [facility] [address] [address] [address] Jovanna Magana URINE MICROSCOPIC ONLYon BACTERIA TRACE Abnormal NONE SEEN [facility] Comment on above: Performed By: #### U MICRO, ERUR, DRUGRPD ####[facility] [address] [address]Dr. Jovanna Magana Bacteria identified Cx Nom (U) NOT INDICATED Normal [facility] Comment on above: Performed By: #### U MICRO, ERUR, DRUGRPD ####[facility] [address] [id number]. Jovanna Magana CAST SEEN Abnormal NONE SEEN [facility] Comment on above: Performed By: #### U MICRO, ERUR, DRUGRPD ####[facility] [address] [id number]. Jovanna Magana Crystals LM Nom (Urine sed) NONE SEEN Normal NONE SEEN [facility] Comment on above: Performed By: #### U MICRO, ERUR, DRUGRPD ####[facility] [address] [id number]. Jovanna Magana Epithelial cells LM Ql (Urine sed) FEW Abnormal NONE SEEN /RARE [facility] Comment on above: Performed By: #### U MICRO, ERUR, DRUGRPD ####[facility] [address] [address]Dr. Jovanna Magana HYALINE CAST FEW Normal [facility] Comment on above: Performed By: #### U MICRO, ERUR, DRUGRPD ####[facility] [address] [address]Dr. Jovanna Magana MUCOUS NONE SEEN Normal NONE SEEN [facility] Comment on above: Performed By: #### U MICRO, ERUR, DRUGRPD ####[facility] [address] [id number]. Jovanna Magana RBC 0-2 Normal 0-2 [facility] Comment on above: Performed By: #### U MICRO, ERUR, DRUGRPD ####[facility] [address] [id number]. Jovanna Magana WBC 0-2 Abnormal NONE SEEN [facility] Comment on above: Performed By: #### U MICRO, ERUR, DRUGRPD ####[facility] [address] [id number]. Jovanna Magana XR CHEST 1 Von 04-20-2022 [...] by: Ayaka LEON Date: 2022-04-20 02:33 Normal [facility] XR ANKLE RT MIN 3 VIEWSon [...] by: KOBE HICKEY Date: 2022-03-26 09:41 Normal [facility] Vital Signs Date Time Vital Sign Value Performing Clinician Facility 03-18-2025 13:12-0400 Body height 154.9 cm Evansmalinda Thomas DPM Work Phone: [facility] 03-18-2025 13:12-0400 Body mass index (BMI) [Ratio] 20.6 kg/m2 [facility] DPM Work Phone: [facility] 03-18-2025 13:12-0400 Body weight 49.44 kg Evans [facility] DPM Work Phone: [facility] 08-13-2024 12:24-0400 Body height 154.94 cm PHYSICIAN NO [facility] 08-13-2024 12:24-0400 Body temperature 97.8 [degF] PHYSICIAN NO [facility] 08-13-2024 12:24-0400 Body weight 48 kg PHYSICIAN NO [facility] 08-13-2024 12:24-0400 Diastolic blood pressure 98 mm[Hg] PHYSICIAN NO [facility] 08-13-2024 12:24-0400 Heart rate 84 /min PHYSICIAN NO [facility] 08-13-2024 12:24-0400 Respiratory rate 18 /min PHYSICIAN NO [facility] 08-13-2024 12:24-0400 SaO2% (BldA) [Mass fraction] 98 % PHYSICIAN NO [facility] 08-13-2024 12:24-0400 Systolic blood pressure 160 mm[Hg] PHYSICIAN NO [facility] Encounters Encounter Date Encounter Type Care Provider Facility Start: 06-02-2025 End: 06-02-2025 ambulatory MASTER CAPONE [facility] Start: 05-28-2025 Evaluation and management of inpatient HOSSEIN PORTILLO [facility] Start: 05-27-2025 Evaluation and management of inpatient ASMITA [facility] Start: 05-27-2025 [facility] Start: 05-26-2025 [facility] Start: 05-26-2025 [facility] Start: 05-26-2025 End: 05-28-2025 Evaluation and management of inpatient SHANTA TRIPATHI [facility] Start: 05-25-2025 End: 05-25-2025 ambulatory Shanta Tripathi [facility] Work Phone: Start: 05-25-2025 End: 05-25-2025 Departed Referred Shanta Tripathi DO -[facility] Start: 05-07-2025 End: 05-07-2025 ambulatory [facility] Start: 05-01-2025 Emergency department patient visit BEATRIZ PANDYA [facility] Start: 05-01-2025 End: 05-03-2025 Evaluation and management of inpatient ASMITA PALOMINO [facility] Start: 04-09-2025 End: 04-13-2025 Evaluation and management of inpatient VAUGHN T SAI [facility] Start: 04-08-2025 End: 04-08-2025 ambulatory [facility] Start: 03-18-2025 End: 03-18-2025 Emmett flowssadia Thomas DPM Work Phone: [facility] Start: 03-18-2025 End: 03-18-2025 Bamboo flowsheet Evans Thomas DPM Work Phone: [facility] Start: 03-18-2025 End: 03-18-2025 Office outpatient visit 25 minutes Evans Thomas DPM Work Phone: [facility] Comment on above: Contusion of left gr eat toe with damage to nail, initial encounter (Primary Dx); Onychodystrophy; Left foot pain Start: 03-18-2025 End: 03-18-2025 ambulatory EVANS THOMAS Not Available Start: 03-11-2025 End: 03-11-2025 ambulatory ROSCOE [facility] Start: 08-13-2024 End: 08-13-2024 Emergency department patient visit PHYSICIAN ABIGAIL [facility] Work Phone: Start: 07-10-2024 End: 07-11-2024 ambulatory Vikram Mckenna MD Facility:[facility] Start: 06-30-2024 End: 07-02-2024 ambulatory [facility] Start: 06-09-2024 End: 06-11-2024 ambulatory [facility] Start: 05-26-2024 ambulatory [facility] Start: 05-26-2024 Encounter for other preprocedural examination [facility] Start: 05-22-2024 Non-patient / Non-visit PHYSICIAN ABIGAIL [facility] Work Phone: Start: 03-23-2023 End: [...] Facility:H1 Start: 11-01-2022 ambulatory TATUM SHAMMO Facility:[facility] Start: 10-08-2022 End: 10-08-2022 ambulatory TATUM SHAMMO Facility:[facility] Start: 10-06-2022 ambulatory Woo FALCON Facility :[facility] Start: 10-03-2022 End: 10-04-2022 ambulatory TATUM SHAMMO Facility:[facility] Start: 09-14-2022 Encounter for genera l adult medical examination without abnormal findings TATUM SHAMMO [facility] Start: 09-12-2022 End: 09-13-2022 ambulatory TATUM [...] Start: 06-22-2022 End: 06-22-2022 ambulatory [facility] Facility:[facility]1 Start: 05-02-2022 End: 05-02-2022 ambulatory [facility] Facility:[facility] Start: 04-20-2022 End: 04-20-2022 ambulatory CAROL ANN ALIA Facility:[facility] Start: 03-26-2022 End: 03-26-2022 ambulatory DARRIN PEREZ . Facility: Plan of Treatment Date Care Activity Detail Author Start: 05-25-[address] [facility] Start: 05-25-2025 Bacteria identified in Urine by Culture Urine Culture [facility] Start: 04-01-2025 End: 04-01-2025 Patient encounter procedure 04/01/2025 1:15 PM EDT Office Visit [facility] [address] [place] [id number] Evans Thomas, DPXochilt [address], [place] [id number] [facility] Start: 03-18-2025 End: 03-18-2025 Patient encounter procedure 03/18/2025 1:15 PM EDT Office Visit [facility] [address] [place] [phone] Evans Thomas, FEDERICO [address] [place], [place] [phone] Arrived [facility] Comment on above: Arrived Patient Education Managing acute pain at home [facility] Work Phone: Patient referral [facility] Work Phone: Payers Date Payer Category Payer Self-pay 2024 Unknown 2021 Medicaid (Managed Care) CRAIG FERNÁNDEZ [id number] 1973 Unknown [id number] .16.840.1.793583.3.579.2. 727 1973 Unknown [id number] .16.840.1.135766.3.579.2. 727 1973 Unknown [id number] 2.16.840.1.081544.3.579.2. 593 1973 Unknown [id number] 2.16.840.1.068765.3.579.2. 593 1973 Unknown [id number] 2.16.840.1.706093.3.579.2. 593 1973 Unknown [id number] 2.16.840.1.001723.3.579.2. 593 1973 Unknown [id number] 2.16.840.1.890492.3.579.2. 593 1973 Unknown [id number] 2.16.840.1.659296.3.579.2. 593 1973 Unknown [id number] 2.16.840.1.164604.3.579.2. 593 1973 Unknown [id number] 2.16.840.1.711471.3.579.2. 593 1973 Unknown [id number] 2.16.840.1.686819.3.579.2. 593 1973 Unknown [id number] 2.16.840.1.979087.3.579.2. 593 1973 Unknown [id number] 2.16.840.1.693551.3.579.2. 593 1973 Unknown [id number] 2.16.840.1.711339.3.579.2. 593 1973 Unknown [id number] 2.16.840.1.102128.3.579.2. 593 1973 Unknown [id number] 2.16.840.1.918929.3.579.2. 593 1973 Unknown [id number] 2.16.840.1.510690.3.579.2. 593 1973 Unknown [id number] 2.16.840.1.737275.3.579.2. 593 1973 Unknown [id number] 2.16.840.1.243742.3.579.2. 593 1973 Unknown [id number] 2.16.840.1.954053.3.579.2. 593 1973 Unknown [id number] 2.16.840.1.510032.3.579.2. 593 1973 Unknown [id number] 2.16.840.1.572444.3.579.2. 593 1973 Unknown [id number] 2.16.840.1.262446.3.579.2. 593 1973 Unknown [id number] 2.16.840.1.301019.3.579.2. 593 1973 Unknown [id number] 2.16.840.1.503464.3.579.2. 174 1973 Unknown [id number] 2.16.840.1.428078.3.579.2. 174 1973 Unknown [id number] 2.16.840.1.557161.3.579.2. 174 1973 Unknown [id number] 2.16.840.1.655637.3.579.2. 174 1973 Unknown [id number] 2.16.840.1.822720.3.579.2. 174 1973 Unknown [id number] 2.16.840.1.864362.3.579.2. 196 1973 Unknown [id number] 2.16.840.1.719128.3.579.2. 1259 1959 Self-pay [id number] 1959 Unknown [id number] 1959 Unknown [id number] Unknown [id number] 2.16.840.1.438034.3.579.2. 531 Unknown [id number] .16.840.1.055324.3.579.2. 531 Social History Date Type Detail Facility Start: 08-13-2024 Tobacco smoking stat us NHIS Smoker (finding) [facility] Start: 1975 Sex Assigned At Female F [facility] Start: 1973 Sex assigned at Not on file N [facility] Gender identity Not on file [facility] Health are Start: 08-13-2024 End: 03-18-2025 Tobacco smoking status NHIS Smokes tobacco daily [facility] History of tobacco use Cigarette Smoker N [facility] Start: 03-18-2025 Tobacco use and exposure Smokeless tobacco non-user [facility] Start: 03-18-2025 Alcoholic beverage intake Ex-drinker (finding) [facility] Sex Female (finding) [facility] Clinical Notes 06-22-2022 to 06-02-2025 Evans Thomas, [...] Hospital Course: Patient is a transfer from [facility] where she presented with generalized abdominal pain dull to sharp nonradiating associate with nausea hide mild distention denies any nausea vomiting diarrhea dyspepsia patient has recent admission at [facility] for epigastric abdominal pain has 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 Workup including CT abdomen done at [facility] showed left portal vein thrombosis she also [...] or concerns -Eliquis refilled. Master Capone, MSN, AGACNP-[facility] Division of Vascular/Endovascular and Wound Surgery [facility] 05-28-2025 Note Hospital Medicine Discharge Summary [...] Surgery 49 y.o. white female transferred from [facility] where she presented with generalized abdominal pain dull to sharp nonradiating associate with nausea hide mild distention denies any nausea vomiting diarrhea dyspepsia patient has recent admission at [facility] for epigastric abdominal pain has history of [...] Medications These medications were sent to [facility] - [place], [place] - [address], [facility] [address] apixaban 5 mg tablet oxyCODONE-acetaminophen 10-325 mg [...] -- CALCIUM mg/dL (more content not included)... [facility] 05-28-2025 Note Gastroenterology/Hep atology Progress Note [...] 5.4* B12/Folate/Iron studies: No results found for: [id number] , FOLATE , IRON , TIBC , UIBC , IRONSAT , FERRITIN Viral Hepatitis No results found for: HEPAIGM , HAV , HEPBSAG , HEPBSAB , HEPBEAB , HEPBIGM , HEPBCAB , HEPBCOREAB , HBVNAT , HCVSCR , HEPCAB , HCVNAT , HCVPCR , HCVTMA Liver workup No results found for: NOE , SMOOTHMUSCAB , CERULOPLSM , [id number] , TTGA , IGA , TSH , [...] 1PPD for 15 years. She presented to [facility] on 05/25/2025 for right sided abdominal [...] 05/01/2025: Multiple peripancre (more content not included)... [facility] 05-27-2025 Note - Continue home inhaler. [facility] 05-27-2025 Note - Counseled. - Continue nicotine patch. [facility] 05-27-2025 Note - Continue amlodipine and hydral azine. [facility] 05-27-2025 Note - CT A/P from [facility] showed possible portal vein thrombosis. Doppler showed patent hepatic veins. - Patient had recent EGD on 04/2025 which was unremarkable. - Repeat CT A/P due to persistent pain. Follow up UA. - GI recommended no intervention. [facility] 05-27-2025 Note - Continue levothyroxine. [facility] 05-27-2025 Note - S/P ERCP and sphin cterotomy on 03/2025. - GI recommended no intervention. [facility] 05-27-2025 Note - GI recommended no intervention . [facility] 05-27-2025 Note Hospital Medicine Daily Progress Note - 05/27/2025 3:32 PM; Room: [address] [place] [address] Admission: 05/26/2025 1:31 AM; Length of stay: 1 days THE HOSPITALIST TEAM PREFERS TO USE Stuffle CHAT FOR NON-URGENT COMMUNICATION 7AM-7PM. IF I DO NOT RESPOND WITHIN 20 MINUTES OR URGENT MATTERS, PLEASE CALL THROUGH THE CHARTER COORDINATOR. FROM 7PM-7AM, PLEASE PAGE [phone](COVR). Code Status: Full Code Barriers to Discharge: [...] TSH 2.83 04/10/2025 No results found for: [id number] , IRON , TIBC , C3 , [...] Self Care (01) Signed Asmita Palomino MD [facility] Medicine 05/27/2025 3:32 PM [facility] 05-27-2025 Note Readmission Risk Sco re 10. One ED/Inpt admits in the past 6 months. 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 This bond writer reviewed the chart and pt does not meet criteria for Outpatient Specialty/Complex java j2ee technical lead program criteria at this time [facility] 05-26-2025 Note 05/26/25 1879 Admission Assessment Questions Verify insurance with patient [...] Status Interested Does the patient have a lining caser assigned to them through their insurance? [...] link and activate MyChart? MyChart already active [facility] 05-26-2025 Note [facility] Vascular Surgery/Wound Care CONSULTATION Reason for Consult: Heparinized patient with finding of portal vein thrombosis at [facility] Subjective History of Present Illness: Kati Thorne is a 49 y.o. female Kati Thorne is an 49 y.o. white female with PMH GERD, ERCP w/ sphincterotomy and stent placement in on the 04/08/2025, pancreatitis, and recent EGD and stent removal on 05/07/2025. Patient states she has no history of vascular intervention or clotting disorder. 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 Workup including CT abdomen done at [facility] showed left portal vein thrombosis she also had CT scan of the chest which showed no acute infiltrate but did show pneumobilia which was started on IV fluids morphine was given along with Toradol for pain electrolytes were replaced. Patient was ultimately transferred to [facility], and vascular surgery was consulted for concern [...] file Stress: No Stress Concern Present (05/01/2025) [employer] - Occupational Stress Questionnaire Feeling of Stress : Only a little Social Connections: Socially Isolated (05/01/2025) Social Connection and Isolation Panel [NHANES] Frequency of Communication with Friends and Family: More than three times a week Frequency of Social Gatherings with Friends and Family: More than three times a week Attends Church Services: Never Active Member of Clubs or [...] pulses are detecte (more content not included)... [facility] 05-26-2025 Note [facility] Vascular Surgery/Wound Care CONSULTATION Reason for Consult: Heparinized patient with finding of portal vein thrombosis at [facility] Subjective History of Present Illness: Kati Thorne is a 49 y.o. female Kati Thorne is an 49 y.o. white female with PMH GERD, ERCP w/ sphincterotomy and stent placement in on the 04/08/2025, pancreatitis, and recent EGD and stent removal on 05/07/2025. Patient states she has no history of vascular intervention or clotting disorder. 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 Workup including CT abdomen done at [facility] showed left portal vein thrombosis she also [...] file Stress: No Stress Concern Present (05/01/2025) [employer] - Occupational Stress Questionnaire Feeling of Stress : Only a little Social Connections: Socially Isolated (05/01/2025) Social Connection and Isolation Panel [NHANES] Frequency of Communication with Friends and Family: More than three times a week Frequency of Social Gatherings with Friends and Family: More than three times a week Attends Church Services: Never Active Member of Clubs or [...] Pulmonary: Effort: Pulmo (more content not included)... [facility] 05-26-2025 Note Heparinized patient monitors cell count vascular surgery to see patient [facility] 05-26-2025 Note Recent admission and evaluation by GI control pain monitor serial lipase [facility] 05-26-2025 Note Hospital Medicine History and Physical 05/26/2025 5:05 AM THE HOSPITALIST TEAM PREFERS TO USE Stuffle CHAT FOR NON-URGENT COMMUNICATION 7AM-7PM. IF I DO NOT RESPOND WITHIN 20 MINUTES OR URGENT MATTERS, PLEASE CALL THROUGH THE CHARTER COORDINATOR. FROM 7PM-7AM, PLEASE PAGE [phone](COVR). Chief Complaint No chief complaint on file. History of Present Illness Kati Thorne is an 49 y.o. white female transferred from [facility] where she presented with generalized abdominal pain dull to sharp nonradiating associate with nausea hide mild distention denies any nausea vomiting diarrhea dyspepsia patient has recent admission at [facility] for epigastric abdominal pain has history of [...] this hospital stay by a member of [facility] Medicine. Past Medical History Medical [...] (05/26/2025) Overall Financial (more content not included)... [facility] 05-07-2025 Note Patient: Kati Thorne Procedure Summary Date: 05/07/25 Room / Location: [facility] Invasive [facility] Anesthesia Start: 1000 Anesthesia Stop: 1021 [...] per anesthesia protocol. No notable events documented. [facility] 05-07-2025 Note Patient: Kati Thorne Procedure Information Date/Time: 05/07/25 0930 Scheduled providers: Roscoe Saucedo MD; Titus Little MD; ELLIOTT Reyes Procedure: EGD Location: [facility] Endoscopy Relevant Problems Anesthesia (within normal limits) Cardio Denies chest pain/SOB. No previous cardiac interventions. (+) Essential hypertension (+) NSTEMI (non-ST elevated myocardial infarction) ([facility]/HCC) Endo hypothyroidism /Renal (within normal limits) Neuro/Psych PTSD Pulmonary Long standing tobacco use, COPD, asthma (+) COPD (chronic obstructive pulmonary disease) ([facility]) Clinical information reviewed: Past Medical History: Diagnosis Date Anxiety Arthritis Asthma COPD (chronic obstructive pulmonary disease) ([facility]/HCC) Depression GERD (gastroesophageal reflux disease) Hypothyroidism Irritable [...] Plan discussed with ELLIOTT. Additional Equipment Requests [facility] 05-03-2025 Note Hospital Medicine Discharge Summary [...] tobacco use, hypertension and recent ERCP at [facility] for dilated common bile duct that was [...] Department Center 05/07/2025 9:30 AM ENDO 04 [facility] GIS GEORGEI 06/09/2025 11:30 AM Anabella Rodriguez [...] Your Medications These medications were sent to [id number] - [place], [place] - [address] [facility] [address] [place] [address] sucralfate 100 mg/mL suspension You can get [...] mg/dL 2.4 1. (more content not included)... [facility] 05-03-2025 Note ---- Attestation signed by [...] 5.9* B12/Folate/Iron studies: No results found for: [id number] , FOLATE , IRON , TIBC , UIBC , IRONSAT , FERRITIN Viral Hepatitis No results found for: HEPAIGM , HAV , HEPBSAG , HEPBSAB , HEPBEAB , HEPBIGM , HEPBCAB , HEPBCOREAB , HBVNAT , HCVSCR , HEPCAB , HCVNAT , HCVPCR , HCVTMA Liver workup No results found for: NOE , SMOOTHMUSCAB , CERULOPLSM , [id number] , TTGA , IGA , TSH , [...] am to 4 pm weekdays in house: [phone] 4 pm to 6 am or weekends: Please contact the nitric acid plant operator to page the fellow chief librarian extension department [facility] 05-02-2025 Note - not in exacerbatio n - Continue home symbicort [facility] 05-02-2025 Note - Blood pressure wit hin acceptable range on 05/02 - Continue lopressor 25mg BID [facility] 05-02-2025 Note - replaced and resolved [facility] 05-02-2025 Note - tolerated breakfas t - Advancing diet to regular texture, low-fat diet as tolerated [facility] 05-02-2025 Note - Pancreatic pseudoc ysts noted on CT abd/pelvis, doesn't appear infected on imaging study - GI following, appreciate recommendations [facility] 05-02-2025 Note Hospital Medicine Daily Progress Note - 05/02/2025 1:26 PM; Room: [id number]- Admission: 05/01/2025 4:15 PM; Length of stay: 0 days THE HOSPITALIST TEAM PREFERS TO USE Evergram FOR NON-URGENT COMMUNICATION 7AM-7PM. IF I DO NOT RESPOND WITHIN 20 MINUTES OR URGENT MATTERS, PLEASE CALL THROUGH THE CHARTER COORDINATOR. FROM 7PM-7AM, PLEASE PAGE [phone](COVR). Code Status: Full Code Barriers to Discharge: [...] and resolved COPD (chronic obstructive pulmonary disease) ([facility]) - not in exacerbation - Continue home [...] TSH 2.83 04/10/2025 No results found for: [id number] , IRON , TIBC , C3 , [...] the stomach ant (more content not included)... [facility] 05-02-2025 Note 05/02/25 0818 Admission Assessment [...] Status Interested Does the patient have a lining caser assigned to them through their insurance? [...] to send link and activate MyChart? No [facility] 05-01-2025 Note Will continue Proton ix 40 mg twice daily Will add sucralfate 1 g every 6 hours Gastroenterology consulted Pain control with home dose of oxycodone and morphine as needed [facility] 05-01-2025 Note Gastroenterology con sult Pain control [facility] 05-01-2025 Note Zofran as needed Compazine scheduled for next 24 hours Full liquid diet and advance as tolerated [facility] 05-01-2025 Note Magnesium sulfate 2 g IV x 1 Will recheck level with a.m. labs [facility] 05-01-2025 Note Will replace and kang l monitor level with a.m. labs [facility] 05-01-2025 Note Hospital Medicine History and Physical 05/01/2025 10:44 PM THE HOSPITALIST TEAM PREFERS TO USE Stuffle CHAT FOR NON-URGENT COMMUNICATION 7AM-7PM. IF I DO NOT RESPOND WITHIN 20 MINUTES OR URGENT MATTERS, PLEASE CALL THROUGH THE CHARTER COORDINATOR. FROM 7PM-7AM, PLEASE PAGE [phone](COVR). Chief Complaint Chief Complaint Patient presents with Post-op Problem Pt reports recent ERCP. Following ERCP she got pancreatitis and was admitted. Pt reports increase of pain, nausea, and diarrhea since discharge along with severe abd pain. History of Present Illness Kati Thorne is an 49 y.o. female who came from home with past medical history of PTSD, COPD, tobacco use, hypertension and recent ERCP at [facility] for dilated common bile duct that was [...] Plan: Patient will be admitted to [facility] telemetry bed for observation. Fall precautions. Patient's [...] this hospital stay by a member of [facility] Medicine. Past Medical History Medical [...] file Social H (more content not included)... [facility] 05-01-2025 Note 05/01/252029 Financial Resource Strain [...] were you homeless or living in a chcf (including now)? N Transportation Needs In the [...] than 3 How often do you attend mu-ism or rastafarian services? Never Do you belong to any clubs or organizations such as mu-ism groups, unions, fraternal or athletic groups, or [...] In the past 12 months has the [employer], [employer], or water [employer] threatened to shut off services in your home? 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 [facility] 04-16-2025 Note Message left for pat zayra to call and schedule an EGD for stent removal with Dr. Roscoe Saucedo in 3 weeks from previous procedure on 04/08/25. [facility] 04-13-2025 Note Hospital Medicine Discharge Summary Final Discharge Diagnosis: Post ERCP pancreatitis Nausea and vomiting secondary to acute pancreatitis Hypokalemia Hypomagnesemia Hypocalcemia Essential hypertension NSTEMI likely type II demand ischemia COPD Tobacco use disorder Severe protein calorie malnutrition Admission Diagnosis: Acute pancreatitis due to systemic disease [K85.90] Hospital course: Kati Thorne is an 49 y.o. female admitted from [facility] presented with uncontrolled ongoing abdominal pain mainly in the upper abdomen described as continuous sharp worse with eating radiating to back associated with persistent nausea vomiting had intermittent dyspepsia denies hematemesis blood in bowels coffee-ground emesis had constipation and had not moved bowel movements in past 3 days denies any dysuria hematuria fever chills chest pains. Patient was discharged from [facility] on 04/08/2025 after undergoing ERCP with biliary [...] an Zofran she had labs done at [facility] which showed WBC 25.6 hemoglobin 15.4 hematocrit [...] Medications These medications were sent to [facility] - [address] [place] [address] [facility] [place] [address], [facility] [address] calcium carbonate 200 mg calcium (500 mg) chewable tablet magnesium oxide 400 mg (241.3 mg magnesium) tablet metoprolol tartrate 25 mg tablet nicotine 14 mg/24 hr patch pantoprazole 40 mg EC tablet polyethylene glycol 17 gram/dose powder potassium chloride CR 10 mEq ER tablet Kati has No Known Allergies. Disposition: (more content not included)... [facility] 04-13-2025 Note Gastroenterology/Hep atology Progress Note [...] 6.3 B12/Folate/Iron studies: No results found for: [id number] , FOLATE , IRON , TIBC , UIBC , IRONSAT , FERRITIN Viral Hepatitis No results found for: HEPAIGM , HAV , HEPBSAG , HEPBSAB , HEPBEAB , HEPBIGM , HEPBCAB , HEPBCOREAB , HBVNAT , HCVSCR , HEPCAB , HCVNAT , HCVPCR , HCVTMA Liver workup No results found for: NOE , SMOOTHMUSCAB , CERULOPLSM , V5QTIEOTXOM , TTGA , IGA , TSH , [...] MiraLAX for consti (more content not included)... [facility] 04-12-2025 Note Counseling Tobacco replacement [facility] 04-12-2025 Note Bronchodilators, tob acco cessation, nicotine replacement [facility] 04-12-2025 Note Resolved [facility] 04-12-2025 Note Likely type II deman d ischemia in the setting of acute pancreatitis. [facility] 04-12-2025 Note Nutrition following [facility] o [facility] 04-12-2025 Note Blood pressure likel y more elevated due to acute pain. Start patient on Lopressor 12.5 mg twice a day [facility] 04-12-2025 Note Calcium supplementation ordered [facility] 04-12-2025 Note - Continue Tigan due to prolonge d QT [facility] 04-12-2025 Note - patient s/p ERCP - Pain regimen adjusted, IV Dilaudid discontinued. Oral pain medications added. - IV fluids discontinued, patient started on low-fat diet, encouraged to eat. [facility] 04-12-2025 Note - Supplementation ordered [facility] 04-12-2025 Note Hospital Medicine Daily Progress Note - 04/12/2025 1:35 PM; Room: [address] [place] [address] Admission: 04/09/2025 7:35 AM; Length of stay: 3 days THE HOSPITALIST TEAM PREFERS TO USE Evergram FOR NON-URGENT COMMUNICATION 7AM-7PM. IF I DO NOT RESPOND WITHIN 20 MINUTES OR URGENT MATTERS, PLEASE CALL THROUGH THE CHARTER COORDINATOR. FROM 7PM-7AM, PLEASE PAGE [phone](COVR). Code Status: Full Code Barriers to Discharge: [...] 460* -- 2,51 (more content not included)... [facility] 04-11-2025 Note - Continue Tigan due to prolonge d QT [facility] 04-11-2025 Note Bronchodilators, tob acco cessation, nicotine replacement [facility] 04-11-2025 Note Nutrition following [facility] 04-11-2025 Note Likely type II deman d ischemia in the setting of acute pancreatitis. [facility] 04-11-2025 Note - Supplementation ordered [facility] 04-11-2025 Note - patient is 2 days s/p ERCP - patient reports nausea and multiple episodes of vomiting. Patient also has dyspepsia and is burping a lot. Patient currently NPO - pain is being controlled by dilaudid 1 mg IV, every 3 hours PRN - Continue IV fluids to help with acute pancreatitis [facility] 04-11-2025 Note Resolved [facility] 04-11-2025 Note Counseling Tobacco replacement [facility] 04-11-2025 Note Blood pressure likel y more elevated due to acute pain. Continue IV Lopressor every 8 hours while patient is NPO. [facility] 04-11-2025 Note Calcium supplementation ordered [facility] 04-11-2025 Note Hospital Medicine Daily Progress Note - 04/11/2025 11:17 AM; Room: [address] [place] [address] Admission: 04/09/2025 7:35 AM; Length of stay: 2 days THE HOSPITALIST TEAM PREFERS TO USE Evergram FOR NON-URGENT COMMUNICATION 7AM-7PM. IF I DO NOT RESPOND WITHIN 20 MINUTES OR URGENT MATTERS, PLEASE CALL THROUGH THE CHARTER COORDINATOR. FROM 7PM-7AM, PLEASE PAGE [phone](COVR). Code Status: Full Code Barriers to Discharge: [...] is NPO. NSTEMI (non-ST elevated myocardial infarction) ([facility]) Likely type II demand ischemia in the [...] 7 days Lab (more content not included)... [facility] 04-10-2025 Note 04/10/25 1641 Admission Assessment [...] Status Interested Does the patient have a lining caser assigned to them through their insurance? [...] link and activate MyChart? MyChart already active [facility] 04-10-2025 Note Gastroenterology/Hep atology Progress Note [...] 6.1 B12/Folate/Iron studies: No results found for: [id number] , FOLATE , IRON , TIBC , [...] vitals and electrolytes. (more content not included)... [facility] 04-10-2025 Note Blood pressure likel y more elevated due to acute pain. Continue IV Lopressor every 8 hours while patient is NPO. [facility] 04-10-2025 Note Calcium supplementation ordered [facility] 04-10-2025 Note Nutrition following [facility] o [facility] 04-10-2025 Note - patient is 2 days s/p ERCP - patient reports nausea and multiple episodes of vomiting. Patient also has dyspepsia and is burping a lot. Patient currently NPO - pain is being controlled by dilaudid 1 mg IV, every 3 hours PRN - Administer IV fluids to help with acute pancreatitis [facility] 04-10-2025 Note - [facility] Note Likely type II deman d ischemia in the setting of acute pancreatitis. [facility] 04-10-2025 Note - Continue Tigan due to prolonge d QT [facility] 04-10-2025 Note Hospital Medicine Daily Progress Note - 04/10/2025 11:09 AM; Room: [address] [place] [address] Admission: 04/09/2025 7:35 AM; Length of stay: 1 days THE HOSPITALIST TEAM PREFERS TO USE Stuffle CHAT FOR NON-URGENT COMMUNICATION 7AM-7PM. IF I DO NOT RESPOND WITHIN 20 MINUTES OR URGENT MATTERS, PLEASE CALL THROUGH THE CHARTER COORDINATOR. FROM 7PM-7AM, PLEASE PAGE [phone](COVR). Code Status: Full Code Barriers to Discharge: [...] TSH 2.83 04/10/2025 No results found for: [id number] , IRON , TIBC , C3 , C4 , NOE , CAN (more content not included)... [facility] 04-09-2025 Note Adult Nutrition Asse ssment: Name: Kati Thorne Date: 1975 Date of Visit: 04/09/25 Admission Dx: Acute pancreatitis due to systemic disease [K85.90] Reason for assessment: high risk Information obtained from: patient and medical record Past Medical History: Diagnosis Date Anxiety Arthritis Asthma COPD (chronic obstructive pulmonary disease) ([facility]) Depression GERD (gastroesophageal reflux disease) Hypothyroidism Irritable [...] actual body weight (45.8 kg) Calorie needs: 1260-9230 kcals/day based on Equation: 25-30 kcal/kg Protein [...] as needed, monitor/check (more content not included)... [facility] 04-09-2025 Note S/p ERCP suspect pos t ERCP Pancreatitis ,Pain control n.p.o. symptomatic management nausea vomiting because of prolonged QTc interval use Tigan GI consult [facility] 04-09-2025 Note Bronchodilators toba inside account representative cessation nicotine replacement [facility] 04-09-2025 Note With elevated blood pressure and tachycardia pain control put her on metoprolol IV [facility] 04-09-2025 Note As above [facility] 04-09-2025 Note Recycle troponins te lemetry consider echocardiogram if troponin trending up despite pain control Hyperglycemia check A1c blood sugars [facility] 04-09-2025 Note Counseling Tobacco replacement [facility] 04-09-2025 Note As mentioned above c ontrolled nausea vomiting but keeping patient n.p.o. IV fluids and use Tigan because of prolonged QTc interval on telemetry around [facility] 05-29-2025 Note Suspect from pancrea titis stress of pain because of marked leukocytosis. Consider repeating CT scan if increased white blood count or worsening pain or change in status will hydrate patient and recheck CBC also will check LFTs lipase coagulation panel consider either repeating CT scan of the abdomen or MRCP [facility] 04-09-2025 Note Hospital Medicine History and Physical 04/09/2025 7:51 AM THE HOSPITALIST TEAM PREFERS TO USE Evergram FOR NON-URGENT COMMUNICATION 7AM-7PM. IF I DO NOT RESPOND WITHIN 20 MINUTES OR URGENT MATTERS, PLEASE CALL THROUGH THE CHARTER COORDINATOR. FROM 7PM-7AM, PLEASE PAGE [phone](COVR). Chief Complaint No chief complaint on file. History of Present Illness Kati Thorne is an 49 y.o. female admitted from [facility] presented with uncontrolled ongoing abdominal pain mainly in the upper abdomen described as continuous sharp worse with eating radiating to back associated with persistent nausea vomiting had intermittent dyspepsia denies hematemesis blood in bowels coffee-ground emesis had constipation and had not moved bowel movements in past 3 days denies any dysuria hematuria fever chills chest pains. Patient was discharged from [facility] on 04/08/2025 after undergoing ERCP with biliary [...] an Zofran she had labs done at [facility] which showed WBC 25.6 hemoglobin 15.4 hematocrit [...] telemetry around COPD (chronic obstructive pulmonary disease) ([facility]) Bronchodilators tobacco cessation nicotine replacement Tobacco abuse Counseling Tobacco replacement Primary hypertension With elevated blood pressure and tachycardia pain control put her on metoprolol (more content not included)... [facility] 04-08-2025 Note Patient: Kati Thorne Procedure Summary Date: 04/08/25 Room / Location: [facility] Anesthesia Start: 858 Anesthesia Stop: 1020 [...] per anesthesia protocol. No notable events documented. [facility] 04-08-2025 Note Airway Date/Time: 04/08/2025 9:05 AM Urgency: elective Airway not difficult General Information and Staff Patient location during procedure: OR Anesthesiologist: Titus Little MD Resident/EXPENSE ANALYST/CAA: ELLIOTT Kong Performed: resident/EXPENSE ANALYST/CAA Indications and Patient Condition Indications for airway [...] 1 Number of other approaches attempted: 0 [facility] 04-08-2025 Note Patient: Kati Thorne Procedure Information Date/Time: 04/08/25 0945 Scheduled providers: Roscoe Saucedo MD; Titus Little MD; ELLIOTT Kong Procedure: ENDOSCOPIC RETROGRADE CHOLANGIOPANCREATOGRAPHY Location: [facility] Relevant Problems Anesthesia (within normal limits) [...] Plan discussed with CAA. Additional Equipment Requests [facility] 04-01-2025 Note Procedure notes and results given to Dr. Saucedo for review and recommendations [facility] 03-30-2025 Note Patient calls today stating she had procedure two weeks ago with Dr. Saucedo and was told to call if symptoms continued. EUS completed 03/11/2025. Patient states that she continues to have epigastric pain, nausea and diarrhea with urgency which has caused some incontinence. Please aadvise [facility] 03-18-2025 Note EGD/EUS procedure no te along with biopsy results faxed to referring office of Dr. Arias, attn: Christin at [phone] [facility] 03-18-2025 History of Present illness Narrative [...] Evans Thomas DPM documented in this encounter [facility] 03-11-2025 Note Patient: Kati Thorne Procedure Summary Date: 03/11/25 Room / Location: [facility] Anesthesia Start: 926 [...] no known notable events for this encounter. [facility] 03-11-2025 Note Patient: Kati Thorne Procedure Information Date/Time: 03/11/25 0945 Scheduled providers: Roscoe Saucedo MD; Titus Little MD; ELLIOTT Romo Procedure: EUS (UPPER) W/ EGD Location: [facility] Relevant Problems Anesthesia (within normal limits) [...] Plan discussed with ELLIOTT. Additional Equipment Requests [facility] 02-25-2025 Note 03/06/25@1200 Larry Waller had called back with a different phone # of [phone] and message left for patient to call and schedule a procedure. 02/27/25@ 0813 Again, attempted to reach patient to schedule and EUS, but the call could not be completed as dialed. Emergency contact listed is Luis Manuel at [phone], voice mail is full. 02/25/25 Attempted to reach patient to schedule and EUS with Dr. Roscoe Saucedo, see referral in media tab from Dr. Arias's office dated 01/31/25, but call is not able to be completed the times I have called her. Called Christin web coordinator and message left is she has an alternate phone #. In the meantime will mail her a letter. [facility] 07-11-2024 Note Admission Informatio n Patient: [...] less than 30 minutes Medications New Medications [employer] [id number], [address] [place] [id number], [phone] cefdinir (cefdinir 300 mg oral capsule) 1 [...] by Vikram Mckenna MD 07/11/24 11:37 EDT [facility] 07-10-2024 Note Chief Complaint bp around [...] this time too much in pain --will child and family counselor in am discussion pain control , [...] hydrALAZINE, 10 mg= 0.5 mL, IV Push, [id number] Times, PRN LR 1,000 mL, 1000 mL, [...] by Bala RAMIREZ Demarcolakshmi 07/10/24 19:12 EDT [facility] 07-10-2024 Note Clinical Information Procedure: RIGHT [...] right index finger, excision: Consistent with osteomyelitis. [id number] [id number] Raul Davidson MD PhD (Electronically signed by) Verified: 07/16/24 13:53 [facility] Comment on above: Performed By: #### [facility] #### [facility] ([facility]) [address] [place] [address] [facility] [address] [place] [address] 03-05-2023 Note PROCEDURE: XR HAND R T [...] account for patient's symptoms. Electronically authenticated by: RFANCES AGUSTIN Date: 2023-03-05 11:36 [facility] 08-30-2022 Note PROCEDURE: XR HUMERU S [...] authenticated by: FRANCES AGUSTIN Date: 2022-08-30 10:20 [facility] 08-30-2022 Note PROCEDURE: XR HUMERU S [...] authenticated by: FRANCES AGUSTIN Date: 2022-08-30 10:20 [facility] 06-22-2022 Note PROCEDURE: XR WRIST LT [...] authenticated by: RJ PEREZ Date: 2022-06-22 07:13 [facility] 06-22-2022 Note PROCEDURE: XR WRIST LT [...] authenticated by: RJ PEREZ Date: 2022-06-22 07:13 [facility] Evaluation note No assessment information availa [facility] [employer] Work Phone: Evaluation note Diagnosis Contusion of left great toe with damage to nail, initial encounter- Primary Onychodystrophy Other specified disease of nail Left foot pain Pain in soft tissues of limb [facility] this encounter [facility] Additional Instructions Follow-up with your surgeon for further evaluation or pain medication.[facility] [employer] Work Phone: Reason for referral (narrative)No reason for referral information availablePremier Health [facility] Center [employer] Work Phone: Summary Purpose Family History No [...] content) DATE CREATED AUTHOR 10/24/2022 Soham Syed [facility] DATE CREATED AUTHOR AUTHOR'S ORGANIZ ATION 03/24/2023 [facility] DATE CREATED AUTHOR AUTHOR'S ORGANIZ ATION 07/04/2024 [facility] DATE CREATED AUTHOR AUTHOR'S ORGANIZ ATION 11/07/2024 [facility] DATE CREATED AUTHOR AUTHOR'S ORGANIZ ATION 03/21/2025 [facility] EPIC DATE CREATED AUTHOR AUTHOR'S ORGANIZ ATION 05/30/2025 [facility] DATE CREATED AUTHOR AUTHOR'S ORGANIZ ATION 06/06/2025 [facility] Care Teams (unrecognized sec tion and content) [...] August 13, 2024 End: August 13, 2024 Preparator Relationship Specialty Start Date End Date Vani Spivey MD [address] [place] [id number] PCP - General Family Medicine 03/18/25 Preparator Relationship Specialty Start Date End Date Vani Spivey MD [address] [place] [id number] PCP - General Family Medicine 03/18/25 Team [...] BE BASED ON THE PRIMARY CLINICAL RECORDS. [facility]. provides no warranty or guarantee of the accuracy or completeness of information in this document.
--- NOTE | 2025-08-21 11:31 | XR_ITS ---
[facility] [place] [id number] Patient Name: SULY THORNE MRN: [id number] date: 1975 Sex: F Assigned Patient Location: LAB Current Patient Location: LAB Accession/Order Number: [id number] Exam Date: 08/21/2025 11:32 Report Date: 08/21/2025 14:19 At the request of: SELVIN WALDEN MD Procedure: XR lumbar spine 2-3V LUMBAR SPINE - 2 views CLINICAL HISTORY: Chronic Midline Low Back Pain COMPARISON: None. FINDINGS: The vertebral body heights appear maintained. Mild endplate and facet joint degenerative changes with moderate disc space narrowing L5-S1. XR/XR lumbar spine 2-3V IMPRESSION: MODERATE DISC SPACE NARROWING L5-S1. Impression dictated by: Imtiaz Aldana Jr., DJhonyOJhony 08/21/2025 2:19 PM Dictation Location: [place] [address] Electronically authenticated by: [id number] Y Date: 08/21/2025 14:19
--- NOTE | 2025-08-21 11:31 | XR_ITS ---
[place] [id number] Patient Name: SULY THORNE MRN: [id number] date: 1975 Sex: F Assigned Patient Location: LAB Current Patient Location: LAB Accession/Order Number: [id number] Exam Date: 08/21/2025 11:32 Report Date: 08/21/2025 14:20 At the request of: SELVIN WALDEN MD Procedure: XR cervical spine 2-3V CERVICAL SPINE 4 views: CLINICAL HISTORY: Chronic Neck Pain COMPARISON: None FINDINGS: No acute bony process. Vertebral body heights appear maintained. Facet joint degenerative changes with moderate disc space narrowing C5-6. No prevertebral soft tissue swelling. XR/XR cervical spine 2-3V IMPRESSION: MODERATE DISC SPACE NARROWING C5-6. Impression dictated by: Imtiaz Aldana Jr., D.O. 08/21/2025 2:20 PM Dictation Location: [place] [address] Electronically authenticated by: [id number] Y Date: 08/21/2025 14:20
--- NOTE | 2025-08-21 11:31 | XR_ITS ---
The [address] [address] Patient Name: SULY THORNE MRN: [id number] date: 1975 Sex: F Assigned Patient Location: LAB Current Patient Location: LAB Accession/Order Number: [id number] Exam Date: 08/21/2025 11:32 Report Date: 08/21/2025 15:22 At the request of: SELVIN WALDEN MD Procedure: XR shoulder LT min 2V LEFT SHOULDER - - 3 views CLINICAL HISTORY: Acute Left Shoulder Pain COMPARISON: Left shoulder 08/29/2022 FINDINGS: Bones are grossly demineralized without acute bony process. Joint spaces appear unremarkable. XR/XR shoulder LT min 2V IMPRESSION: No acute bony process. Impression dictated by: Imtiaz Aldana Jr., D.O. 08/21/2025 3:22 PM Dictation Location: [place] [address] Electronically authenticated by: [id number] Y Date: 08/21/2025 15:22
[2025-08-21 13:46] LABS: TSH W/ REFLEX FT4 7.849 uIU/mL (0.358-3.740)
== END 2025-08-21 11:12 | disposition home or self-care (01) ==
LOC: LAB 11:12
PROVIDERS: PCP Family Medicine; Visit Provider Family Medicine
DX: M25.512 Pain in left shoulder (principal); M54.2 Cervicalgia; G89.29 Other chronic pain; M54.50 Low back pain, unspecified; E03.9 Hypothyroidism, unspecified
CPT/HCPCS: 36415; 72040; 72100; 73030; 84439; 84443

== ENCOUNTER 2025-10-24 23:32 | Emergency (ER) | payer OTHER, SELFPAY ==
[2025-10-24 23:37] VITALS: BP 123/85; PULSE 98; TEMP 36.6; O2SAT 98; BMI 19.5
--- NOTE | 2025-10-24 23:59 | XR_ITS ---
The [place] [id number] Patient Name: SULY THORNE MRN: [id number] date: 1975 Sex: F Assigned Patient Location: ED.MAIN Current Patient Location: Accession/Order Number: [id number] Exam Date: 10/24/2025 23:59 Report Date: 10/25/2025 08:18 At the request of: ISACC ZALDIVAR DO Procedure: XR lumbar spine 2-3V XR lumbar spine 2-3V 10/25/2025 12:41 AM SIGNS AND SYMPTOMS: ^midline l spine pain, l lumbar radiculopathy PROTOCOLS: Frontal and lateral radiographs of the lumbar spine COMPARISON: 08/21/2025 FINDINGS: The alignment, development and bony structures are normal. There is no fracture or destructive lesion. There is moderate to severe disc height loss at L5-S1. Intervertebral discs are otherwise preserved. The sacrum and sacroiliac joints are normal. There is evidence of prior cholecystectomy. XR/XR lumbar spine 2-3V IMPRESSION: No fracture or subluxation. There is moderate to severe disc height loss at L5-S1. Impression dictated by: Abdi Sams M.D. 10/25/2025 8:18 AM [facility] Electron[facility] authenticated by: [id number] Y Date: 10/25/2025 08:18
[2025-10-25] MEDS: OXYCODONE HCL/ACETAMINOPHEN 5MG/325MG 1 TAB PO (00:25)
[2025-10-25] MEDS: HYDROMORPHONE HCL 1 MG/ML CARTRIDGE IM (00:25)
[2025-10-25] MEDS: IBUPROFEN 600 MG TABLET PO (00:26)
--- OUTSIDE RECORDS SUMMARY | 2025-10-25 00:35 | XMS_ITS | Clinical Summary ---
Author Organization [facility] Healthcare Address [address] [place] [address] Care Team Providers Care Under Sheriff Name Role Phone Vani Spivey MD Primary Care Provider [phone] Medications MedicationSigDispense QuantityRefillsLast FilledStart DateEnd DateStatus albuterol HFA 90 mcg/act inhaler Inhale 2 puffs in the morning and 2 puffs at noon and 2 puffs in the evening. Active gabapentin (Neurontin) 300 MG capsule Take 1 capsule by mouth 2 (two) times a day as uffupi305Active Active Problems No known active problems Family History Medical HistoryRelationNameCommentsDiabetesMotherRelationNameStatusComments Mother Social History Tobacco UseTypesPacks/DayYears UsedDateSmoking Tobacco: Every DayCigarettes Smokeless Tobacco: Never Tobacco Cessation:Ready to Q uit: No; Counseling Given: No Alcohol UseStandard Drinks/WeekCommentsNot Currently0 (1 standard drink = 0.6 oz pure alcohol)CommentsUnknownSex and Gender InformationValueDate Recorded Sex Assigned at BirthNot on fileLegal WuhRjrtam03/15/2023 7:21 PM EDTGender IdentityNot on fileSexual OrientationNot on file Last Filed Vital Signs Vital SignReadingTime TakenCommentsBlood Pressure--Pulse--Temperature-- Respiratory Rate--Oxygen Saturation--Inhaled Oxygen Concentration--Kwinym09.4 kg (109 lb)03/18/2025 1:12 PM EBTHfcmvm751.9 cm (5' 1 )03/18/2025 1:12 PM EDTBody Mass Index20.6003/18/2025 1:12 PM EDT Plan of Treatment Not on file Insurance * Guarantor: Kati Cortes AAccount TypeRelation to PatientDate of BirthPhone Billing AddressPersonal/WhtwewWpjp1975 [address] [address] Care Teams Team MemberRelationshipSpecialtyStart DateEnd Date Vani Spivey MD [address] [place] [address] PCP - GeneralFamily Medicine03/18/25
--- OUTSIDE RECORDS SUMMARY | 2025-10-25 00:35 | XMS_ITS | Clinical Summary ---
Author Organization [facility] Address [address] [place] [address] Care Team Providers Care Radio Control Crane Operator Name Role Phone Vani Spivey MD Primary Care Provider [phone] Allergies No known active allergies Medications MedicationSigDispense QuantityRefillsLast FilledStart DateEnd DateStatus albuterol 90 mcg/actuation inhaler Inhale 2 puffs if needed in the morning, at noon, and at bedtime for wheezing or shortness of breath.Active gabapentin (Neurontin) 300 mg capsule Take 600 mg by mouth two times daily.Active levothyroxine (Synthroid, Levoxyl) 25 mcg tablet Take 25 mcg by mouth before breakfast.Active Symbicort 80-4.5 mcg/actuation inhaler inhale 2 puffs into the lungs twice daily5Active nicotine (Nicoderm CQ) 14 mg/24 hr patch Indications:Tobacco usePlace 1 patch on the skin 1 (one) time each day at the same time for 5 days. 5 patch 5Active pantoprazole (ProtoNix) 40 mg EC tablet Indications:Esophagitis determined by biopsyTake 1 tablet (40 mg) by mouth two times daily. Do not crush, chew, or split. 60 tablet 5Active metoprolol tartrate (Lopressor) 25 mg tablet Indications:Essential hypertensionTake 1 tablet (25 mg) by mouth two times daily for 195 doses. 195 tablet 5Active ondansetron (Zofran) 4 mg tablet Take 1 tablet by mouth every 6 (six) hours during the day.4Active amLODIPine (Norvasc) 5 mg tablet Take 5 mg by mouth in the morning.Active apixaban (Eliquis) 5 mg tablet Indications:Portal vein thrombosisTake 2 tablets (10 mg) by mouth two times daily for 7 days, THEN 1 tablet (5 mg) two times daily. 208 tablet 5Active Active Problems ProblemNoted DateDiagnosed GqanPsmxyowvr75/23/2025Encounter for orthopedic aftercare following surgical ydafubvyeu57/23/2025Idiopathic aseptic necrosis of finger of right hand06/03/2025Lumbosacral spondylosis without myelopathy 06/03/2025Open displaced fracture of distal phalanx of right index finger 06/03/2025Partial traumatic transphalangeal amputation of right index finger 06/03/2025Postoperative wound olvfsqvov98/23/2025Hepatic vein thrombosis 05/29/2025ute abdominal pain05/27/2025 Assessment & Plan (05/27/2025 3:39 PM EDT): - CT A/P from outside facility showed possible portal vein thrombosis. Doppler showed patent hepatic veins. - Patient had recent EGD on 04/2025 which was unremarkable. - Repeat CT A/P due to persistent pain. Follow up [facility]. - GI recommended no intervention. Primary mabictyfubhz42/16/2025 Assessment & Plan (05/27/2025 3:39 PM EDT): - Continue amlodipine and hydralazine. Duodenal papillary eibmnpkk41/16/2025 Assessment & Plan (05/27/2025 3:39 PM EDT): - S/P ERCP and sphincterotomy on 03/2025. - GI recommended no intervention. Other specified mbvxzievxlrvtn11/16/2025 Assessment & Plan (05/27/2025 3:39 PM EDT): - Continue levothyroxine. Tobacco use05/27/2025 Assessment & Plan (05/27/2025 3:39 PM EDT): - Counseled. - Continue nicotine patch. Simple chronic decrxjwpmo84/16/2025 Assessment & Plan (05/27/2025 3:39 PM EDT): - Continue home inhaler. Portal vein pumfqlnrlu90/15/2025 Assessment & Plan (05/26/2025 5:14 AM EDT): Heparinized patient monitors cell count vascular surgery to see patient Pancreatic nwdkizqyun06/20/2025 Assessment & Plan (05/27/2025 3:39 PM EDT): - GI recommended no intervention. Assessment & Plan (05/26/2025 5:14 AM EDT): Recent admission and evaluation by GI control pain monitor serial lipase Assessment & Plan (05/02/2025 1:30 PM EDT): - Pancreatic pseudocysts noted on CT abd/pelvis, doesn't appear infected on imaging study - GI following, appreciate recommendations Assessment & Plan (05/01/2025 10:51 PM EDT): Gastroenterology consult Pain control Epigastric pain05/01/2025 Assessment & Plan (05/02/2025 1:30 PM EDT): - Pancreatic pseudocysts noted on CT abd/pelvis, doesn't appear infected on imaging study - GI following, appreciate recommendations Assessment & Plan (05/01/2025 10:51 PM EDT): Will continue Protonix 40 mg twice daily Will add sucralfate 1 g every 6 hours Gastroenterology consulted Pain control with home dose of oxycodone and morphine as needed Post-ERCP acute fxwgjwzepmzh40/30/2025 Assessment & Plan (04/12/2025 1:37 PM EDT): - patient s/p ERCP - Pain regimen adjusted, IV Dilaudid discontinued. Oral pain medications added. - IV fluids discontinued, patient started on low-fat diet, encouraged to eat. Assessment & Plan (04/11/2025 11:22 AM EDT): - patient is 2 days s/p ERCP - patient reports nausea and multiple episodes of vomiting. Patient also has dyspepsia and is burping a lot. Patient currently NPO - pain is being controlled by dilaudid 1 mg IV, every 3 hours PRN - Continue IV fluids to help with acute pancreatitis Assessment & Plan (04/10/2025 2:49 PM EDT): - patient is 2 days s/p ERCP - patient reports nausea and multiple episodes of vomiting. Patient also has dyspepsia and is burping a lot. Patient currently NPO - pain is being controlled by dilaudid 1 mg IV, every 3 hours PRN - Administer IV fluids to help with acute pancreatitis Eyftqktbqom84/30/2025 Assessment & Plan (05/02/2025 1:30 PM EDT): - replaced and resolved Assessment & Plan (05/01/2025 10:51 PM EDT): Will replace and will monitor level with a.m. labs Assessment & Plan (04/12/2025 1:37 PM EDT): - Supplementation ordered Assessment & Plan (04/11/2025 11:22 AM EDT): - Supplementation ordered Assessment & Plan (04/10/2025 2:49 PM EDT): - Supplementation ordered Mbwkhfsklqjiod29/30/2025 Assessment & Plan (05/02/2025 1:30 PM EDT): - replaced and resolved Assessment & Plan (05/01/2025 10:51 PM EDT): Magnesium sulfate 2 g IV x 1 Will recheck level with a.m. labs Assessment & Plan (04/12/2025 1:37 PM EDT): - Supplementation ordered Assessment & Plan (04/11/2025 11:22 AM EDT): - Supplementation ordered Assessment & Plan (04/10/2025 2:49 PM EDT): - Supplementation ordered Cwwsxcviviqb09/30/2025 Assessment & Plan (04/12/2025 1:37 PM EDT): Calcium supplementation ordered Assessment & Plan (04/11/2025 11:22 AM EDT): Calcium supplementation ordered Assessment & Plan (04/10/2025 2:49 PM EDT): Calcium supplementation ordered Essential etlboaytntyn81/30/2025 Assessment & Plan (05/02/2025 1:33 PM EDT): - Blood pressure within acceptable range on 05/02 - Continue lopressor 25mg BID Assessment & Plan (04/12/2025 1:37 PM EDT): Blood pressure likely more elevated due to acute pain. Start patient on Lopressor 12.5 mg twice a day Assessment & Plan (04/11/2025 11:22 AM EDT): Blood pressure likely more elevated due to acute pain. Continue IV Lopressor every 8 hours while patient is NPO. Assessment & Plan (04/10/2025 2:49 PM EDT): Blood pressure likely more elevated due to acute pain. Continue IV Lopressor every 8 hours while patient is NPO. Utjsyphonsdr63/29/2025 Assessment & Plan (04/12/2025 1:37 PM EDT): Resolved Assessment & Plan (04/11/2025 11:22 AM EDT): Resolved Assessment & Plan (04/09/2025 8:14 AM EDT): Suspect from pancreatitis stress of pain because of marked leukocytosis. Consider repeating CT scanif increased white blood count or worsening pain or change in status will hydrate patient and recheck CBC also will check LFTs lipase coagulation panel consider either repeating CT scan of the abdomen or MRCP Nausea & hhyxdggt10/ Assessment & Plan (05/02/2025 1:30 PM EDT): - tolerated breakfast - Advancing diet to regular texture, low-fat diet as tolerated Assessment & Plan (05/01/2025 10:51 PM EDT): Zofran as needed Compazine scheduled for next 24 hours Full liquid diet and advance as tolerated Assessment & Plan (04/12/2025 1:37 PM EDT): - Continue Tigan due to prolonged QT Assessment & Plan (04/11/2025 11:22 AM EDT): - Continue Tigan due to prolonged QT Assessment & Plan (04/10/2025 2:49 PM EDT): - Continue Tigan due to prolonged QT Assessment & Plan (04/09/2025 8:14 AM EDT): As mentioned above controlled nausea vomiting but keeping patient n.p.o. IV fluids and use Tigan because of prolonged QTc interval on telemetry around COPD (chronic obstructive pulmonary disease)04/09/2025 Assessment & Plan (05/02/2025 1:33 PM EDT): - not in exacerbation - Continue home symbicort Assessment & Plan (04/12/2025 1:37 PM EDT): Bronchodilators, tobacco cessation, nicotine replacement Assessment & Plan (04/11/2025 11:22 AM EDT): Bronchodilators, tobacco cessation, nicotine replacement Assessment & Plan (04/09/2025 8:14 AM EDT): Bronchodilators tobacco cessation nicotine replacement Tobacco abuse04/09/2025 Assessment & Plan (04/12/2025 1:37 PM EDT): Counseling Tobacco replacement Assessment & Plan (04/11/2025 11:22 AM EDT): Counseling Tobacco replacement Assessment & Plan (04/09/2025 8:14 AM EDT): Counseling Tobacco replacement NSTEMI (non-ST elevated myocardial infarction)04/09/2025 Assessment & Plan (04/12/2025 1:37 PM EDT): Likely type II demand ischemia in the setting of acute pancreatitis. Assessment & Plan (04/11/2025 11:22 AM EDT): Likely type II demand ischemia in the setting of acute pancreatitis. Assessment & Plan (04/10/2025 2:49 PM EDT): Likely type II demand ischemia in the setting of acute pancreatitis. Assessment & Plan (04/09/2025 8:14 AM EDT): Recycle troponins telemetry consider echocardiogram if troponin trending up despite pain control Hyperglycemia check A1c blood sugars Severe protein-calorie bkmtnstkbaci09/29/2025 Assessment & Plan (04/12/2025 1:37 PM EDT): Nutrition following Assessment & Plan (04/11/2025 11:22 AM EDT): Nutrition following Assessment & Plan (04/10/2025 2:49 PM EDT): Nutrition following Syxgaqtfxgqabc17/21/2012Degenerative joint disease involving multiple joints 04/01/20125694Owuens84/17/2012Low back pain03/28/2012 Social History Tobacco UseTypesPacks/DayYears UsedDateSmoking Tobacco: Every CadHbjayvhjwe376 Started: 1988Smokeless Tobacco: Never Tobacco Cessation:Ready to Q uit: No; Counseling Given: Yes Alcohol UseStandard Drinks/WeekCommentsNot Currently0 (1 standard drink = 0.6 oz pure alcohol)[facility] UtilitiesAnswerDate RecordedIn the past 12 months has the [employer], gas, oil, or water [employer] threatened to shut off services in your home?No05/26/2025Humiliation, Afraid, Rape, and Kick questionnaireAnswerDate RecordedWithin the last year, have you been afraid of your partner or ex-partner?No05/26/2025Within the last year, have you been humiliated or emotionally abused in other ways by your partner or ex-partner?No05/26/2025 Within the last year, have you been kicked, hit, slapped, or otherwise physically hurt by your partner or ex-partner?No05/26/2025Within the last year, have you been raped or forced to have any kind of sexual activity by your part ner or ex-partner?No05/26/2025Social Connection and Isolation PanelAnswerDate RecordedIn a typical week, how many times do you talk on the phone with family, friends, or neighbors?More than three times a week05/01/2025How often do you get together with friends or relatives?More than three times a week05/01/2025How often do you attend jewish or hindu services?Never05/01/2025Do you belong to any clubs or organizations such as jewish groups, unions, [employer] or athletic groups, or school groups?No05/01/2025How often do you attend meetings of the clubs or organizations you belong to?Never05/01/2025re you , , , , never , or living with a partner?Oqbpsyyz84/20/2025 AUDIT-CAnswerDate RecordedQ1: How often do you have a drink containing alcohol? Never05/01/2025Q2: How many drinks containing alcohol do you have on a typical day when you are drinking?Patient does not drink05/01/2025Q3: How often do you have six or more drinks on one occasion?Never05/01/2025Overall Financial Resource Strain (CARDIA)AnswerDate RecordedHow hard is it for you to pay for the very basics like food, housing, medical care, and heating?Not hard at all 05/26/2025[facility] [place] [facility] - Occupational Stress QuestionnaireAnswerDate RecordedDo you feel stress - tense, restless, nervous, or anxious, or unable to sleep at night because yourmind is troubled all the time - these days?Only a kuxqvs2305/01/2025TransportationAnswerDate RecordedIn the past 12 months, has lack of transportation kept you from medical appointments or from getting medications?No05/26/2025In the past 12 months, has lack of transportation kept you from meetings, work, or from getting things needed for daily living?No05/26/2025Housing Stability Vital SignAnswerDate RecordedIn the last 12 months, was there a time when you were not able to pay the mortgage or rent on time?No05/26/2025In the past 12 months, how many times have you moved where you were living?t any time in the past 12 months, were you homeless or living in a jail (including now)?No05/26/2025Hunger Vital Sign AnswerDate RecordedWithin the past 12 months, you worried that your food would run out before you got the money to buymore.Never true05/26/2025Within the past 12 months, the food you bought just didn't last and you didn't have money to get more.Never true05/26/2025CommentsNoSex and Gender InformationValueDate RecordedSex Assigned at BirthNot on fileLegal StqHxqzua86/29/2022 9:54 PM EDT Gender IdentityNot on fileSexual OrientationNot on file Last Filed Vital Signs Vital SignReadingTime TakenCommentsBlood Tyiwzhpq866/9706/02/2025 10:16 AM EDT Qmfwh708206/02/2025 10:16 AM KQBVbdpvodrjoz09.9 ??C (98.5 ??F)05/28/2025 4:00 AM EDTRespiratory Hvyd724706/02/2025 10:16 AM EDTOxygen Rvmyjlulnp00%06/02/2025 10:16 AM EDTInhaled Oxygen Concentration--Olxqfd42 kg (97 lb)06/02/2025 10:16 AM EDT Nnyhmv786.9 cm (5' 1 )06/02/2025 10:16 AM EDTBody Mass Index18.3307 10:16 AM EDT Plan of Treatment Health MaintenanceDue DateLast DoneCommentsCT Ohwbkcusjkir1973Colonoscopy 1975Colorectal Cancer Tahscaqcb1973FIT-DNA1973FIT1975 FOBT1975 6536Xtjamxxsooivm1973Depression Gdvsbsamz18/14/1985Hepatitis B Vaccines (1 of 3 - 19+ 3-dose series)1992Pneumococcal Vaccine: Pediatrics (0 to 5 Years) and At-Risk Patients (6 to 64 Years) (1 of 2 - PCV)1992Pap Smear1994Adult Uuyozsr3608/25/1995Cervical Cancer Oursygilv80/14/2003 HPV/Aydhkp6708/25/20034677Ojmysrajs20/14/2013Zoster Vaccines (1 of 2)3COVID- 19 Vaccine (1 - season)2025Influenza Vaccine (#1)2025HIB VaccinesAged OutNo longer eligible based on patient's age to complete this topic HPV VaccinesAged OutNo longer eligible based on patient's age to complete this topicIPV VaccinesAged OutNo longer eligible based on patient's age to complete this topicMeningococcal B VaccineAged OutNo longer eligible based on patient's age to complete this topicMeningococcal VaccineAged OutNo longer eligible based on patient's age to complete this topicRotavirus VaccinesAged OutNo longer eligible based on patient's age to complete this topic Medical Devices ImplantedTypeAreaManufacturerDevice IdentifierShelf Expiration DateModel / Serial / LotZimmon Pancreatic Stent Single Pigtail Implanted:Qty: 1 on 04/08/20[facility] Pancreatic DuctCOOK [id number]/ [id number] / / [id number] Stallings Advanix,[id number] - [id number] Implanted:Qty: 1 on 04/08/2025 by [facility]: Bile DuctBoston [id number]/10/2027 [id number] / / [id number] Insurance * Guarantor: Sebastian, Kati AAccount TypeRelation to PatientDate of BirthPhone Billing AddressPersonal/PpxrsmWxzl[address] [facility] [place] [address] [place] [address] Advance Directives * Full Code (Latest Code Status on File) Date ActivatedDate InactivatedComments05/26/2025 5:05 AM05/28/2025 6:33 PM * Full Code Date ActivatedDate InactivatedComments05/01/2025 10:43 PM05/03/2025 4:03 PM * Full Code Date ActivatedDate InactivatedComments04/09/2025 7:51 AM04/13/2025 2:48 PM Care Teams Team MemberRelationshipSpecialtyStart DateEnd Date Vani Spivey MD [address] [place], [place] [id number] PCP - GeneralFamily Medicine03/06/25
--- OUTSIDE RECORDS SUMMARY | 2025-10-25 00:36 | XMS_ITS | Clinical Summary ---
Author Organization [facility] Address [id number] [place] [address] Care Team Providers Care Director Of Training Name Role Phone Miguelangel Bazan LEXI-BATCH MIXER OPERATOR Primary Care Provider [phone] Allergies No known active allergies Medications MedicationSigDispense QuantityRefillsLast FilledStart DateEnd DateStatus ALPRAZolam (XANAX) 0.5 mg tablet Take 0.5 mg by mouth 2 (two) times a day.Active sertraline (ZOLOFT) 100 mg tablet Take 150 mg by mouth daily.Active albuterol (PROVENTIL HFA;VENTOLIN HFA) 90 mcg/actuation inhaler Inhale 2 puffs every 6 (six) hours as needed for wheezing.Active zolpidem (AMBIEN) 10 mg tablet Take 10 mg by mouth nightly as needed for sleep.Active gabapentin (NEURONTIN) 600 mg tablet Take 600 mg by mouth 3 (three) times a day.Active levothyroxine (SYNTHROID, LEVOTHROID) 75 MCG tablet Take 75 mcg by mouth daily.Active cyclobenzaprine (FLEXERIL) 10 mg tablet Take 1 tablet (10 mg total) by mouth 2 (two) times a day as needed for muscle spasms. 10 tablet 09/08/2022ctive lidocaine (SALONPAS) 4 % Place 1 patch on the skin daily. 30 patch 09/08/2022ctive Social History Tobacco UseTypesPacks/DayYears UsedDateSmoking Tobacco: Every IlhDaqvdnanfc664 Smokeless Tobacco: NeverChildcareAnswerDate BtjbcrycDwffidiqeHzjamwx25/12/2019 EmploymentAnswerDate JbntkxyyTnpjqkiynjTzakhun65/12/2019Hunger ScreeningAnswer Date RecordedWithin the past 12 months we worried whether our food would run out before we got money to buy more.Never True10/31/2022Within the past 12 months the food we bought just didn't last and we didn't have money to get more.Never True2Purpose - LifeAnswerDate RecordedPurpose and direction in life Mrpfufb8312/23/2020CommentsNoSex and Gender InformationValueDate Recorded Sex Assigned at BirthNot on fileLegal EyiRlglcc12/06/2015 11:26 AM EDTGender IdentityNot on fileSexual OrientationNot on file Last Filed Vital Signs Vital SignReadingTime TakenCommentsBlood Zwenpifo303/9510/31/2022 8:15 PM EST Uptpz299710/31/2022 8:15 PM PSHDumwocyxwpu24 ??C (98.6 ??F)10/31/2022 8:15 PM EST Respiratory Cqji627801/01/2022 8:15 PM ESTOxygen Gcouejqejg71%10/31/2022 8:15 PM ESTInhaled Oxygen Concentration--Ftjyiz99 kg (108 lb)10/31/2022 8:15 PM EST Vimiri925.9 cm (5' 1 )10/31/2022 8:15 PM ESTBody Mass Index20.41101/01/2022 8:15 PM EST Plan of Treatment Health MaintenanceDue DateLast DoneCommentsDepression Cxukpcuwr77/14/1985Tobacco Nycbepirt66/14/1985DTaP,Tdap and Td Vaccines (2 - Td or Tdap)07/26/2022 07/26/2012Zoster (Shingles) Vaccine (1 of 2)2023dult BMI Screening OVID-19 Vaccine (3 - 2024- season)/, 07/03/2021Influenza Oveifsm63/ Medical Devices Not on file Insurance * Guarantor: Kati Cortes TypeRelation to PatientDate of PhoneBilling AddressPersonal/LiwyxlUpie1975 [address] [place] [id number] Care Teams Team MemberRelationshipSpecialtyStart DateEnd Date Miguelangel Bazan APRN-LEESA PCP - GeneralPrimary Care Jkhobarh30/2/22
[2025-10-25 01:18] VITALS: BP 116/81; PULSE 107; O2SAT 97
[2025-10-25] MEDS: HYDROMORPHONE HCL 0.5 MG/0.5 ML SYRINGE IM (01:18)
--- NOTE | 2025-10-25 03:07 | ED.GENADUL1 ---
HPI HPI - General Adult General Chief complaint: Back Pain/Injury Stated complaint: LOWER BACK, INCONTINENCE Time Seen by Provider: 10/24/25 23:42 Source: patient Mode of arrival: walk-in Limitations: no limitations History of Present Illness HPI narrative: Patient is a 50-year-old female presenting to the emergency department with left-sided lower back pain. Patient states the pain has been ongoing for many months, acutely worsening over the last few days after helping her daughter move a large mattress. She states the pain is located left lower part of her back and radiates down her left leg. She denies loss of bladder/bowel function/control. She states she has had a couple episodes of incontinence because she was in too much pain to stand up to go to the bathroom. She denies any numbness/tingling in the perineum or down the extremities. She denies weakness in extremities. She states she is still able to ambulate, though it is quite painful. She denies history of surgeries to the back. No history of IV drug use, fevers, chills. No chest pain or shortness of breath. Related Data Home Medications ?Medication ?Instructions ?Recorded ?Confirmed budesonide-formoterol HFA 80 2 puff inhalation Q12H 01/01/25 10/24/25 mcg-4.5 mcg/actuation aerosol inhaler (Symbicort) gabapentin 300 mg capsule 600 mg PO BID 01/01/25 10/24/25 levothyroxine 25 mcg tablet 25 mcg PO DAILY 04/08/25 10/24/25 metoprolol tartrate 25 mg tablet 25 mg PO Q12H 04/08/25 10/24/25 pantoprazole 40 mg tablet,delayed 40 mg PO DAILY 04/08/25 10/24/25 release apixaban 5 mg tablet (Eliquis) 5 mg PO BID 08/20/25 10/24/25 escitalopram oxalate 10 mg tablet 10 mg PO DAILY 08/20/25 10/24/25 Previous Rx's ?Medication ?Instructions ?Recorded albuterol sulfate 90 mcg/actuation 2 inh inhalation Q4H PRN shortness 01/01/25 aerosol inhaler of breath or wheezing 7 days #8.5 grams potassium chloride 20 mEq 20 meq PO BID 7 days #14 tabs 08/20/25 tablet,extended release oxycodone-acetaminophen 5 mg-325 1 tab PO Q8H PRN pain 3 days #10 10/25/ mg tablet (Percocet) tabs Allergies Allergy/AdvReac Type Severity Reaction Status Date / Time No Known Drug Allergies Allergy Verified 10/24/25 23:45 Opioid HPI Opioid Management Most Recent Opioid Data: Last Pain Scale 8 Today, 01:18 Last MAR Pain Assessment Today, 01:18 Review of Systems ROS Status of ROS 10 or more systems reviewed and unremarkable except as noted in history and below [facility] Medical History Full dentures ?Z97.2 - Presence of dental prosthetic device (complete) (partial) (ICD-10) ?K08.109 - Complete loss of teeth, unspecified cause, unspecified class (ICD-10) Neck pain ?M54.2 - Cervicalgia (ICD-10) Depression ?F32.A - Depression, unspecified (ICD-10) Anxiety ?F41.9 - Anxiety disorder, unspecified (ICD-10) Asthma ?J45.909 - Unspecified asthma, uncomplicated (ICD-10) Chronic obstructive pulmonary disease ?J44.9 - Chronic obstructive pulmonary disease, unspecified (ICD-10) Migraine ?G43.909 - Migraine, unspecified, not intractable, without status migrainosus (ICD-10) Kidney stones ?N20.0 - Calculus of kidney (ICD-10) GERD (gastroesophageal reflux disease) ?K21.9 - Gastro-esophageal reflux disease without esophagitis (ICD-10) Hypothyroidism ?E03.9 - Hypothyroidism, unspecified (ICD-10) Hiatal hernia ?K44.9 - Diaphragmatic hernia without obstruction or gangrene (ICD-10) Colon polyp ?K63.5 - Polyp of colon (ICD-10) Ovarian cyst ?N83.209 - Unspecified ovarian cyst, unspecified side (ICD-10) Endometriosis ?N80.9 - Endometriosis, unspecified (ICD-10) Hypertension ?I10 - Essential (primary) hypertension (ICD-10) Back pain ?M54.9 - Dorsalgia, unspecified (ICD-10) Chronic neck pain ?M54.2 - Cervicalgia (ICD-10) ?G89.29 - Other chronic pain (ICD-10) Open fracture of right hand ?S62.91XB - Unspecified fracture of right wrist and hand, initial encounter for open fracture (ICD-10) Anxiety and depression ?F41.9 - Anxiety disorder, unspecified (ICD-10) ?F32.A - Depression, unspecified (ICD-10) HTN (hypertension) ?I10 - Essential (primary) hypertension (ICD-10) Bulging of cervical intervertebral disc ?M50.30 - Other cervical disc degeneration, unspecified cervical region (ICD-10) Osteoporosis ?M81.0 - Age-related osteoporosis without current pathological fracture (ICD-10) Surgical History History of tonsillectomy ?Z90.89 - Acquired absence of other organs (ICD-10) History of colonoscopy ?Z98.890 - Other specified postprocedural states (ICD-10) History of esophagogastroduodenoscopy (EGD) ?Z98.890 - Other specified postprocedural states (ICD-10) History of laparoscopy ?Z98.890 - Other specified postprocedural states (ICD-10) History of appendectomy ?Z90.49 - Acquired absence of other specified parts of digestive tract (ICD-10) History of hysterectomy ?Z90.710 - Acquired absence of both cervix and uterus (ICD-10) History of cholecystectomy ?Z90.49 - Acquired absence of other specified parts of digestive tract (ICD-10) Family History Other Brain tumor Cancer Family history of aneurysm Family history of diabetes mellitus Family history of hypertension Social History Within the past year, how often did you have a drink containing alcohol: never Score interpretation: A score less than 3 is consistent with normal alcohol consumption. Smoking status: Current every day smoker What tobacco products do you use: cigarettes Cigarettes per day: 30 Years smoked: 36 Smoking pack-years: 54.00 Non-prescribed substance use: cannabis (any form) Highest level of school completed/degree received: 11th grade Little interest or pleasure in doing things: not at all Feeling down, depressed, or hopeless: not at all Exam Narrative Exam Narrative: CONSTITUTIONAL: Appears uncomfortable, laying on her right side, answering questions and following commands appropriately SKIN: Was warm and dry, no rashes on the back or lower extremities. EYES: Sclerae white. EARS, NOSE, THROAT: Moist oral mucosa. RESPIRATORY: Clear to auscultation bilaterally, no wheezes, crackles, or stridor, no use of accessory muscles CARDIOVASCULAR: Normal rate and regular rhythm. There is no S3, S4, murmur, rub. 2+ DP pulses bilaterally GASTROINTESTINAL: Abdomen is nondistended. MUSCULOSKELETAL: There is reproducible tenderness to palpation of the paraspinal muscles of the left lower back. There is mild midline L-spine tenderness. Positive straight leg raise test on the left. Full range of motion in the bilateral lower extremities. Ambulates with an antalgic gait, but is able to do so unassisted. NEUROLOGIC: Patient is awake and alert. 5/5 strength with bilateral left hip flexion/extension, knee flexion/extension, ankle plantar/dorsiflexion, and flexion/extension of the great toe. Intact sensation to light touch in the bilateral lower extremities from the inner part of the thigh to the feet. Constitutional Vital Signs, click to edit/add: Last Vital Signs Temp 98 F 10/24/25 23:37 Pulse 98 H 10/24/25 23:37 Resp 18 10/24/25 23:37 BP 123/85 10/24/25 23:37 Pulse Ox 98 10/24/25 23:37 O2 Del Method Room Air 10/24/25 23:37 Course Vital Signs Vital signs: Vital Signs Temperature 98 F 10/24/25 23:37 Pulse Rate 98 H 10/24/25 23:37 Respiratory Rate 18 10/24/25 23:37 Blood Pressure 123/85 10/24/25 23:37 Pulse Oximetry 98 10/24/25 23:37 Oxygen Delivery Method Room Air 10/24/25 23:37 Temperature 98 F 10/24/25 23:37 Pulse Rate 98 H 10/24/25 23:37 Respiratory Rate 18 10/24/25 23:37 Blood Pressure 123/85 10/24/25 23:37 Pulse Oximetry 98 10/24/25 23:37 Oxygen Delivery Method Room Air 10/24/25 23:37 Medical Decision Making MDM Narrative Medical decision making narrative: My clinical impression is that the patient's back pain is secondary to sciatica/lumbar radiculopathy, possibly musculoskeletal. No findings that would be suggestive of cauda equina syndrome. No history of IV drug use, fevers, to suggest spinal epidural abscess. No recent injuries to suggest fracture or dislocations. No history of cancer to suggest metastatic disease. X-rays were obtained. Patient will be treated symptomatically with IM Dilaudid and oral Percocet. X-rays of the lumbar spine independent reviewed and interpreted by myself demonstrate degenerative changes without acute osseous abnormalities. I do believe the patient is stable for discharge. She states her pain is significant improved and she is having an easier time ambulating. Patient's presentation is most likely consistent with lumbar radiculopathy. They were instructed to follow up with her PCP for further care. She has an appointment with a pain management doctor on November 17 for these symptoms.. Return precautions were given including any new or worsening symptoms, including loss of bladder/bowel function, weakness, or loss of sensation in the lower extremities. They were given a prescription for Percocet 5 mg x 10 tablets. Patient understands and agrees to the plan. FINAL IMPRESSION: #Acute left-sided lumbar radiculopathy DISPOSITION: Discharged home CONDITION: Good Medical Records Medical records reviewed: Yes I reviewed the patient's medical records Imaging Data lumbar spine x-rays: Attestation: I personally reviewed and interpreted this imaging study as follows: Discharge Plan Discharge Chief Complaint: Back Pain/Injury Clinical Impression: Acute left-sided back pain with sciatica Patient Disposition: Home, Self-Care Time of Disposition Decision: 01:07 Condition: Good Mode of Transportation: Private Vehicle Prescriptions / Home Meds: New oxycodone-acetaminophen [Percocet] 5-325 mg tablet 1 tab PO Q8H PRN (Reason: pain) 3 Days Qty: 10 0RF No Action levothyroxine 25 mcg tablet 25 mcg PO DAILY metoprolol tartrate 25 mg tablet 25 mg PO Q12H pantoprazole 40 mg tablet,delayed release (DR/EC) 40 mg PO DAILY Eliquis 5 mg tablet 5 mg PO BID escitalopram oxalate 10 mg tablet 10 mg PO DAILY potassium chloride 20 mEq tablet extended release 20 meq PO BID 7 Days Qty: 14 0RF gabapentin 300 mg capsule 600 mg PO BID budesonide-formoterol [Symbicort] 80-4.5 mcg/actuation HFA aerosol inhaler 2 puff INHALATION Q12H albuterol sulfate 90 mcg/actuation HFA aerosol inhaler 2 inh inhalation Q4H PRN (Reason: shortness of breath or wheezing) 7 Days Qty: 8.5 0RF Print Language: Malay Instructions: Sciatica (ED) Referrals: Vani Spivey MD [Primary Care Provider] - 1 week
== END 2025-10-25 01:18 | disposition home or self-care (01) ==
PROVIDERS: Emergency Provider Student in an Organized Health Care Education/Training Program; PCP Family Medicine
DX: M54.42 Lumbago with sciatica, left side (principal); F17.210 Nicotine dependence, cigarettes, uncomplicated
CPT/HCPCS: 72100; 99284; J1171